=== PATIENT | female | born 1950 | race Caucasian/White ===

== ENCOUNTER 2023-04-04 09:40 | Outpatient (OUT) | payer MEDICARE, SELFPAY ==
--- NOTE | 2023-04-04 09:43 | MM_ITS ---
Patient: PAPITO HAYDEN Exam Date: 04/04/2023 : 1950 Gender:F Ordering : DR. ANAMARIA CHINCHILLA . Admission #: [id number] Family : Order #: [id number] CLICK HERE TO VIEW EXAM RADIOLOGY REPORT PROCEDURE: MM TOMOSYNTHESIS SCREENING BI COMPARISON: MG MAMM SCREEN 3D SARAHI CAD, 03/15/2022. MG MAMM SCREEN 3D SARAHI CAD, 03/13/2021. MG MAMM LT DIAG W CAD, 03/12/2020. MG MAMM SCREEN SARAHI W CAD, 09/12/2017. INDICATIONS: Screening mammogram Z12.31 Calculator Name NCI Breast Cancer Risk Assessment Tool 5 Year Breast Cancer Risk 1.40% Lifetime Breast Cancer Risk 4.10% Personal Breast Cancer No Personal Ovarian Cancer No Treatments None Family Cancers Aunt-maternal with breast cancer at age 70; Father with lung cancer at age 70. LOCATION: [facility] BREAST COMPOSITION: Heterogeneously dense,which may obscure small masses. FINDINGS: DIAGNOSTIC CATEGORY 1--NEGATIVE. RIGHT BREAST: No significant suspicious finding. No significant change has occurred. LEFT BREAST: No significant suspicious finding. No significant change has occurred. RECOMMENDATIONS: ROUTINE MAMMOGRAM AND CLINICAL EVALUATION IN 12 MONTHS. PLEASE NOTE: A NORMAL MAMMOGRAM DOES NOT EXCLUDE THE POSSIBILITY OF BREAST CANCER. A CLINICALLY SUSPICIOUS PALPABLE LUMP SHOULD BE BIOPSIED. Dictated by: Tamir Conley M.D. on 04/04/2023 at 14:45 Approved by: Tamir Conley M.D. on 04/04/2023 at 14:48
== END 2023-04-04 09:41 | disposition home or self-care (01) ==
LOC: MAMMO 09:41
PROVIDERS: PCP Family Medicine; Visit Provider Family Medicine
DX: Z12.31 Encounter for screening mammogram for malignant neoplasm of breast (principal); Z80.3 Family history of malignant neoplasm of breast; Z80.1 Family history of malignant neoplasm of trachea, bronchus and lung
CPT/HCPCS: 77063; 77067

== ENCOUNTER 2023-05-13 08:38 | Outpatient (OUT) | payer MEDICARE, SELFPAY ==
--- NOTE | 2023-05-13 08:41 | US_ITS ---
The [address] [address] Patient Name: PAPITO HAYDEN MRN: [id number] date: 1950 Sex: F Assigned Patient Location: US Current Patient Location: US Accession/Order Number: [id number] Exam Date: 05/13/2023 08:45 Report Date: 05/13/2023 09:52 At the request of: MATT RICHMOND Procedure: US pelvis w/ transvaginal EXAM: Pelvic ultrasound HISTORY: . Right Abdominal Pain R10.9, Post Menopausal Bleeding N95.0 . COMPARISON: None. TECHNIQUE: Transabdominal and transvaginal scanning was performed FINDINGS: Scanning of the pelvis demonstrates a retroverted uterus measuring 5.6 x 3.7 x 4.1 cm. Endometrial complex measures 7 mm in its maximal AP dimension. There is a oblong hypoechoic structure within the endometrial cavity with a maximal AP dimension of 3 mm. Right ovary was not identified. Left ovary measures 0.9 x 0.9 x 1.5 cm. Color-flow is noted. No masses are noted. No fluid is noted in the cul-de-sac. US/US pelvis w/ transvaginal IMPRESSION: 1. Endometrial complex is thickened for patient that is postmenopausal measuring 7 mm. There is an oblong hypoechoic area within the endometrial cavity measuring approximately 3 mm in its maximal AP dimension consistent with fluid and/or blood. Findings could be due to endometrial hyperplasia or an endometrial neoplasm. 2. Normal left ovary. 3. Right ovary was not identified. Electronically authenticated by: KVNG MEREDITH Date: 05/13/2023 09:52
--- NOTE | 2023-05-13 08:49 | US_ITS ---
The [address] [address] Patient Name: PAPITO HAYDEN MRN: [id number] date: 1950 Sex: F Assigned Patient Location: US Current Patient Location: US Accession/Order Number: [id number] Exam Date: 05/13/2023 08:50 Report Date: 05/13/2023 09:57 At the request of: MATT RICHMOND Procedure: US abdomen complete EXAM: US abdomen complete HISTORY: . Abdominal Pain . COMPARISON: None. TECHNIQUE: Grayscale and color imaging was performed FINDINGS: The pancreas appears normal. The abdominal aorta is unremarkable. The gallbladder is absent. Common bile duct measures 6 mm. The liver is normal in size. No masses are noted. Color-flow is noted in the portal and hepatic veins. Right kidney measures 8.9 x 4.8 x 3.9 cm and the left kidney 10.2 x 4.5 x 2 cm. No solid renal cortical masses or hydronephrosis is noted. Color-flow is noted. The spleen appears normal in size. No masses are noted. No fluid is noted within the abdomen. No masses are noted within the bladder. Bladder wall measured 3.5 mm. US/US abdomen complete IMPRESSION: 1. Absent gallbladder. 2. Normal ultrasound of the abdomen. 3. Please see above comments. Electronically authenticated by: KVNG MEREDITH Date: 05/13/2023 09:57
== END 2023-05-13 08:39 | disposition home or self-care (01) ==
LOC: US 08:38
PROVIDERS: PCP Family Medicine; Visit Provider Nurse Practitioner
DX: R10.9 Unspecified abdominal pain (principal); N95.0 Postmenopausal bleeding
CPT/HCPCS: 76700; 76830; 76856

== ENCOUNTER 2023-06-29 14:09 | Outpatient (OUT) | payer MEDICARE, SELFPAY ==
--- NOTE | 2023-06-29 | XR_ITS ---
The [address] [address] Patient Name: PAPITO HAYDEN MRN: [id number] date: 1950 Sex: F Assigned Patient Location: [facility] Current Patient Location: Accession/Order Number: [id number] Exam Date: 06/29/2023 14:25 Report Date: 06/30/2023 14:54 At the request of: SUNG COPELAND Procedure: XR foot LT min 3V STUDY: XR foot LT min 3V, [id number] HISTORY: LEFT FOOT PAIN COMPARISON: Left foot x-rays 08/03/2022. FINDINGS: Chronic fracture at the base of the second metatarsal with incomplete bony bridging. Minimal periosteal reaction at the base of the third metatarsal which could represent healed fracture or stress reaction. No acute fracture. No dislocation or suspicious osseous lesion. Hallux valgus with bunion deformity. Small plantar calcaneal spur and mild Achilles insertional enthesopathy. Dorsal talonavicular osteophytosis and soft tissue callus location. XR/XR foot LT min 3V IMPRESSION: 1. 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 2. Healed fracture versus stress reaction at the base of the third metatarsal. Electronically authenticated by: KLAUS MOTTA Date: 06/30/2023 14:54
--- OUTSIDE RECORDS SUMMARY | 2023-08-09 15:34 | XMS_ITS | CCD ---
Author Name Unknown Address [address] [place] [address] Organization [facility] Care Team Providers Care Resource Development Director Name Role Phone FARA RICHARDSON Unavailable Unavailable BELEN, ANJELICA Bergeron Unavailable Unavailable KARFARA TEE Unavailable Unavailable GAMBINO, ANJELICA eBrgeron Unavailable Unavailable GAMBINO, DR ANJELICA Bergeron Primary Care Unavailable GAMBINO, DR ANJELICA Bergeron Attending Unavailable GAMBINO, DR ANJELICA Bergeron Admitting Unavailable GAMBINO, DR ANJELICA Bergeron Consulting Unavailable ZIEBER, DR TAMIR Rico Consulting Unavailable GAMBINO, DR ANJELICA Bergeron Primary Care Unavailable GAMBINO, DR ANJELICA Bergeron Attending Unavailable GAMBINO, DR ANJELICA Bergeron Admitting Unavailable GAMBINO, DR ANJELICA Bergeron Consulting Unavailable GAMBINO, DR ANJELICA Bergeron Primary Care Unavailable KARASIK, DR CHAUDHARI Consulting Unavailable KARNAY, DR CHAUDHARI Attending Unavailable KARNAY, DR CHAUDHARI Admitting Unavailable ZIEFREM, DR TAMIR Rico Consulting Unavailable GAMBINO, DR ANJELICA Bergeron Primary Care Unavailable GAMBINO, DR ANJELICA Bergeron Consulting Unavailable GAMBINO, DR ANJELICA Bergeron Attending Unavailable GAMBINO, DR ANJELICA Bergeron Admitting Unavailable GAMBINO, DR ANJELICA Bergeron Primary Care Unavailable GAMBINO, DR ANJELICA Bergeron Consulting Unavailable GAMBINO, DR ANJELICA Bergeron Attending Unavailable GAMBINO, DR ANJELICA Bergeron Admitting Unavailable GAMBINO, DR ANJELICA Bergeron Primary Care Unavailable GAMBINO, DR ANJELICA Bergeron Consulting Unavailable GAMBINO, DR ANJELIAC Bergeron Attending Unavailable GAMBINO, DR ANJELICA Bergeron Admitting Unavailable GAMBINO, DR ANJELICA Bergeron Admitting Unavailable GAMBINO, DR ANJELICA Bergeron Primary Care Unavailable GAMBINO, DR ANJELICA Bergeron Consulting Unavailable BELEN, DR ANJELICA Bergeron Attending Unavailable GAMBINO, DR ANJELICA Bergeron Primary Care Unavailable KARASIK, DR CHAUDHARI Consulting Unavailable KARNAY, DR CHAUDHARI Attending Unavailable KARNAY, DR CHAUDHARI Admitting Unavailable CARLISLE, DR KVNG Mendoza Consulting Unavailable Job Alvarado. Primary Care Physician Job Alvarado. Attending Unavailable Violet Lauren Admitting Unavailable Violet Lauren Attending Unavailable Job Alvarado Attending Unavailable Job Alvarado Admitting Unavailable Job Alvarado Attending Unavailable Job Alvarado Attending Unavailable Job Alvarado Attending Unavailable Job Alvarado Attending Unavailable Violet Lauren Attending Unavailable ARIEL DAS Attending Unavailable Allergies Allergy Classification Reported Allergen(s) Allergy Type Date of Onset Reaction(s) Facility (2 sources) atorvastatin; Translations: [atorvastatin] Drug Allergy Unknown (qualifier value) [facility] (2 sources) HYDROmorphone; Translations: [hydromorphone] Drug Allergy Unknown (qualifier value) [facility] (2 sources) Pyrilamine; Translations: [pyrilamine] Drug Allergy Unknown (qualifier value) [facility] (1 source) No Known Medication Allergies; Translations: [No Known Medication Allergies] Propensity to adverse reactions (disorder) [facility] Repository Medications Current Medications Medication Drug Class(es) Dates Sig (Normalized) Sig (Original) aspirin 81 mg oral capsule (1 source) Platelet Aggregation Inhibitor, Nonsteroidal Anti-inflammatory Drug Start: 11-29-2022 take 1 capsule by mouth once daily aspirin 81 mg oral capsule 81 mg = 1 cap(s), Oral, Daily, Refills(s) 0 Start Date: 11/29/22 Status: Ordered glucosamine hydrochloride 1500 mg oral tablet (1 source) Start: 12-01-2022 glucosamine hydrochloride 1500 mg oral tablet 1,500 mg, 1 tab(s), Oral, Daily, 30 tab(s), Refill(s) 0 Start Date: 12/01/22 Status: Ordered krill oil 500 mg oral capsule (1 source) Start: 12-01-2022 take 1 capsule by mouth once daily omega-3 polyunsaturated fatty acids 500 mg oral capsule 500 mg = 1 cap(s), Oral, Daily, Refills(s) 0 Start Date: 12/01/22 Status: Ordered losartan potassium 25 mg oral tablet (2 sources) Angiotensin 2 Receptor Sylvester Start: 12-15-2022 take 1 tablet by mouth twice daily losartan 25 mg Tab 25 mg = 1 tab(s), Oral, BID, # 180 tab(s), Refills(s) 0, Pharmacy: [facility] [id number], 162, cm, 05/11/23 9:36:00 EDT, Height/Length Dosing, 74.9, kg, 05/11/23 9:36:00 EDT, Weight Dosing Start Date: 05/11/23 Status: Ordered meloxicam 15 mg oral tablet (1 source) Nonsteroidal Anti-inflammatory Drug Start: 02-27-2023 take 1 tablet by mouth once daily as needed meloxicam 15 mg Tab See Instructions, TAKE ONE TABLET BY MOUTH DAILY NEEDED, # 90 tab(s), Refills(s) 0, Pharmacy: [facility] [id number], 162.6, cm, 12/01/22 15:23:00 EDT, Height/Length Dosing, 76.5, kg, 12/01/22 15:23:00 EDT, Weight Dosing Start Date: 02/27/23 Status: Ordered rosuvastatin calcium 20 mg oral tablet (1 source) HMG-CoA Reductase Inhibitor Start: 02-27-2023 take 1 tablet by mouth once daily rosuvastatin 20 mg Tab See Instructions, TAKE ONE TABLET BY MOUTH DAILY, # 90 tab(s), Refills(s) 0, Pharmacy: [facility] [id number], 162.6, cm, 12/01/22 15:23:00 EDT, Height/Length Dosing, 76.5, kg, 12/01/22 15:23:00 EDT, Weight Dosing Start Date: 02/27/23 Status: Ordered tafluprost 0.015 mg/ml ophthalmic solution (1 source) Prostaglandin Analog Start: 05-11-2023 take 1 drop(s) into the eye(s) once daily Zioptan 0.0015% ophthalmic solution See Instructions, Refill(s) 0, 1 drop(s) Eye-Right & Left once daily Start Date: 05/11/23 Status: Ordered vitamin e 450 mg oral capsule (1 source) Start: 12-01-2022 take 1 capsule by mouth once daily vitamin E 450 mg oral capsule See Instructions, take one daily 400mg, Refills(s) 0 Start Date: 12/01/22 Status: Ordered Problems Active Problems Problem Classification Problem Date Documented Date Episodic/Chronic Abdominal pain (1 source) Right sided abdominal pain 05-11-2023 Episodic Disorders of lipid metabolism (7 sources) Pure hypercholesterolemia, unspecified; Translations: [Hypercholesterolemia ] Onset: 11-09-2021 Chronic Essential hypertension (5 sources) Essential (primary) hypertension; Translations: [Hypertensive disorder] Onset: 11-05-2021 Chronic Heart valve disorders (1 source) Rheumatic disorders of both mitral and tricuspid valves; Translations: [RHEUMATIC D/O MITRAL TRICUSPID VALV] Onset: 10-08-2021 Chronic Menopausal disorders (1 source) Postmenopausal bleeding 05-11-2023 Chronic Osteoporosis (1 source) Senile osteoporosis; Translations: [Age-related osteoporosis without current pathological fracture] 12-01-2022 Chronic Other connective tissue disease (4 sources) Pain in left foot; Translations: [PAIN IN LEFT FOOT] Onset: 08-03-2022 Episodic Transient cerebral ischemia (6 sources) Transient cerebral ischemic attack, unspecified; Translations: [Transient cerebral ischemia] Onset: 09-11-2021 Chronic Urinary tract infections (4 sources) Urinary tract infection, site not specified; Translations: [UTI SITE NOT SPECIFIED] Onset: 07-06-2022 Episodic Past or Other Problems Problem Classification Problem Date Documented Da te Episodic/Chronic Cardiac dysrhythmias (4 sources) Palpitations; Translations: [PALPITATIONS] Onset: 09-08-2021 Episodic Diabetes mellitus without complication (1 source) Hyperglycemia, unspecified; Translations: [HYPERGLYCEMIA UNSPECIFIED] Onset: 02-11-2022 Episodic Other bone disease and musculoskeletal deformities (1 source) Other specified disorders of bone density and structure, unspecified site; Translations: [OTH D/O BONE DEN STRUCT UNS SITE] Onset: 09-22-2021 Episodic Residual codes; unclassified (1 source) Family history of malignant neoplasm of breast; Translations: [FAMILY HX MALIG NEOPLASM OF BREAST] Onset: 03-16-2022 Episodic Residual codes; unclassified (1 source) Family history of malignant neoplasm of trachea, bronchus and lung; Translations: [FAM HX MALIG NEOPLSM TRACH BRON LNG] Onset: 03-16-2022 Episodic Unclassified (5 sources) Encounter for screening mammogram for malignant neoplasm of breast; Translations: [Encounter for screening mammogram for malignant neoplasm of breast] Onset: 09-12-2017 Episodic Unclassified (5 sources) Asymptomatic menopausal state; Translations: [Asymptomatic menopausal state] Onset: 09-12-2017 Episodic Results Test Name Value Interpretation Reference Range Facil ity Consultation Noteon 07-07-20 Consultation Note [id number]#1.00TIFF [facility] RAD - MISCon 07-07-2023 RAD - MISC [id number]#1.00TI FF [facility] Patient [place]son 06-14-2023 Patient Logs [id number] TIFF [facility] Physician Referralon 023 Physician Referral [id number]#1.00TIFF [facility] Nurse Consultation Noteon Nurse Consultation Note Reason for Visit Here for BP check results 156/84 patient brought a BP log with her and that was scanned in Medications aspirin 81 mg oral capsule, 81 mg= 1 cap(s), Oral, Daily calcium-vitamin D, Daily glucosamine hydrochloride 1500 mg oral tablet, 1500 mg= 1 tab(s), Oral, Daily losartan 100 mg Tab, 100 mg= 1 tab(s), Oral, Daily meloxicam 15 mg Tab, See Instructions Norvasc 5 mg Tab, 5 mg= 1 tab(s), Oral, Daily omega-3 polyunsaturated fatty acids 500 mg oral capsule, 500 mg= 1 cap(s), Oral, Daily rosuvastatin 20 mg Tab, See Instructions vitamin E 450 mg oral capsule, See Instructions Zioptan 0.0015% ophthalmic solution, See Instructions Allergies Dilaudid (Unknown) atorvastatin (Unknown) pyrilamine (Unknown) Immunizations Vaccine Date Status Comments influenza virus vaccine, inactivated - Not Given Postpone due to refusal SARS-CoV-2 mRNA (tozinameran 5y-11y) vac - Not Given Postpone due to refusal pneumococcal 23-valent vaccine 07/24/2019 Recorded pneumococcal 13-valent vaccine 07/21/2018 Recorded hepatitis A adult vaccine 11/08/2016 Recorded hepatitis A adult vaccine 05/05/2016 Recorded influenza virus vaccine, inactivated 07/12/2014 Recorded influenza virus vaccine, inactivated 06/05/2013 Recorded influenza virus vaccine, inactivated 05/18/2012 Recorded influenza virus vaccine, inactivated 05/17/2011 Recorded pneumococcal 23-valent vaccine 06/25/2008 Recorded [facility] Outside Colonoscopyon 2022 Outside Colonoscopy [id number]#1.00TIFF [facility] Patient [place] 06-07-2023 Patient Logs [id number] TIFF [facility] Auth for Release of Medical Recordson 06-01-2023 Auth for Release of Medical Records [id number] [facility] Family Medicine Office/Clini c Noteon 06-01-2023 Family Medicine Office/Clinic Note Chief Complaint Subsequent Medicare Wellness History of Present Illness I was in the office and available for consultation and to provide direct supervision at the time of this visit. I have provided supervision of the care team and have reviewed this chart and office note and agree with the plan of care. Covid-19, MERS, Ebola Screen *Contact With Person With Highly Contagious Disease Like Ebola/MERS/COVID-19 AND Have One or More of the Symptoms Below : No *Travel to a Country With Wide-Spread Ebola/MERS/COVID-19 in the Past 21 Days AND Have One or More of the Symptoms Below : No Leidy Aguilar Marlene - 05/30/2023 14:34 EDT COVID-19 Vaccine : No Lauren Leidy Marlene - 05/30/2023 14:36 EDT Covid-19 External Testing : No *Verify Airborne, Droplet Precautions for MERS/COVID-19 : N/A *Verify Droplet, Contact Precautions for Ebola (Reference for CDC) : N/A Leidy Aguilar Marlene - 05/30/2023 14:34 EDT Summary [facility] : [facility] Preferred Rad : [facility] Patient Counseled : Nutrition, Physical activity Height in Inches : 64 in Height/Length Measured : 162 cm(Converted to: 5 ft 4 in, 63.78 in) Weight Measured : 75.9 kg(Converted to: 167 lb 5 Ounces, 167.331 lb) Body Mass Index Measured : 28.92 kg/m2 Leidy Aguilar 05/30/2023 14:34 EDT Leidy Aguilar 05/30/2023 14:36 EDT Weight in Pounds : 166.98 lb Leidy Aguilar 05/30/2023 14:34 EDT Leidy Aguilar 05/30/2023 14:36 EDT Systolic Blood Pressure : 150 mmHg (HI) Diastolic Blood Pressure : 92 mmHg (HI) Blood Pressure Location : Left arm Blood Pressure Position : Sitting O2 Sat Resting/Exertion Alpha : Resting Peripheral Pulse Rate : 59 bpm (LOW) Respiratory Rate : 18 br/min SpO2 : 95 % Pain Present : No actual or suspected pain Leidy Aguilar 05/30/2023 14:34 EDT Depression Screening Little Interest, Pleasure in Activities (ref) : Not at all Feeling Down, Depressed, Hopeless : Not at all Initial Depression Screening Score : 0 Depression Screening Result : Negative Leidy Aguilar 05/30/2023 14:34 EDT Procedures / Surgeries - Procedure History (As Of: 05/30/2023 14:36:28 EDT) Anesthesia Minutes: 0 ; Procedure Name: Colonoscopy ; Procedure Minutes: 0 ; Comments: 11/29/2022 12:57 EDT - Britany Daniel LPN 2012 normal ; Last Reviewed Dt/Tm: 05/30/2023 14:35:01 EDT Anesthesia Minutes: 0 ; Procedure Name: Cholecystectomy ; Procedure Minutes: 0 ; Comments: 11/29/2022 12:57 EDT - Britany Daniel LPN bile duct surgery ; Last Reviewed Dt/Tm: 05/30/2023 14:35:01 EDT Anesthesia Minutes: 0 ; Procedure Name: Laser ; Procedure Minutes: 0 ; Comments: 12/01/2022 15:22 EDT - Britany Daniel LPN eye ; Last Reviewed Dt/Tm: 05/30/2023 14:35:01 EDT Social History FT Social History (As Of: 05/30/2023 14:35:59 EDT) Alcohol: Wine, 3-5 times per week, Household alcohol concerns: No. (Last Updated: 05/30/2023 14:06:50 EDT by Neftaly Wolfe) Tobacco: Never (less than 100 in lifetime) Tobacco Use:. Never Smokeless Tobacco Use:. Household tobacco concerns: No. Comments: 05/30/2023 14:07 - Neftaly Wolfe R: rachana (Last Updated: 05/30/2023 14:35:10 EDT by Leidy Aguilar) Family History Family History (As Of: 05/30/2023 14:35:59 EDT) Negative History Paiz Fall Risk History of Fall in Last 3 Months Paiz : No Presence of Secondary Diagnosis Paiz : No Use of Ambulatory Aid Paiz : None, bedrest, wheelchair, nurse IV/Heparin Lock Fall Risk Paiz : No Gait Weak or Impaired Fall Risk Paiz : Normal, bedrest, immobile Mental Status Fall Risk Paiz : Oriented to own ability Paiz Fall Risk Score : 0 Leidy Aguilar - 05/30/2023 14:34 EDT Social Determinants (PRAPARE) What is your housing situation today? : I have housing You or Family Gone Without Household Needs Past Year : No No Transport to Med Appts/Meetings/Work/Meds/Necessities : No Afraid of Partner or Ex-partner in the Past Year : No Leidy Aguilar - 05/30/2023 14:34 EDT Review of Systems PHQ Score Initial Depression Screen Score: 0 Physical Exam Vitals & Measurements HR: 59(Peripheral) BP: 158/80 SpO2: 95% HT: 162 cm HT: 64 in WT: 75.9 kg WT: 166.98 lb BMI: 28.92 Assessment/Plan 1. Annual visit for general adult medical examination without abnormal findings (Z00.00: Encounter for general adult medical examination without abnormal findings) The patient was given a customized and personalized print out of all the current AHRQ USPSTF?s recommendations for preventative services and all current CDC recommended immunizations, relevant risk recommendations and the following patient brochures were given. Reviewed Medicare preventative services checklist. CDC-Falls Prevention and home safety screening reviewed. Patient denies any falls in last 12 months, voices no worry about falling, exhibits no problems with sitting, standing, or ambulation. Pt voices understanding with keeping walk way area free o (more content not included)... [facility] Comment on above: Result Comment: Elec tronically Signed By: Job Alvarado MD\.br\Date and Time Signed: 06/01/23 10:38 EDT\.br\Electronically Co-Signed By: Neftaly Wolfe\.br\Date and Time Co-Signed: 05/30/23 15:29 EDT Auth for Release of Medical Recordson 05-31-2023 Auth for Release of Medical Records [id number] [facility] Physician Referralon 023 Physician Referral [id number]#1.00TIFF [facility] Screenson 05-31-2023 Screens [id number] IFF [facility] Ambulatory Visit Summaryon 1 Ambulatory Visit Summary ISAURA RIVERA :1950 Visit Date:05/30/2023 Ambulatory Visit Instructions Your Diagnosis Hypertension Hypertensive kidney disease with stage 3a chronic kidney disease Chronic kidney disease, stage 3a Hypercholesterolemia Postmenopause bleeding Foot pain, right BMI 28.0-28.9,adult Non-smoker Your Care Team Attending Physician - Job Alvarado MD Primary Care Physician - Job Alvarado MD This Is Your Medications List losartan (losartan 100 mg Tab) rosuvastatin (rosuvastatin 20 mg Tab) Contact prescribing physician if questions or concerns aspirin (aspirin 81 mg oral capsule) calcium-vitamin D glucosamine (glucosamine hydrochloride 1500 mg oral tablet) meloxicam (meloxicam 15 mg Tab) omega-3 polyunsaturated fatty acids (omega-3 polyunsaturated fatty acids 500 mg oral capsule) tafluprost ophthalmic (Zioptan 0.0015% ophthalmic solution) vitamin E (vitamin E 450 mg oral capsule) Procedures Performed Cholecystectomy, Colonoscopy, Laser. Discharge Vitals Heart Rate (Peripheral) 59 Respiratory Rate 18 Blood Pressure 150/92 Height 162 cm Height 64 in Weight 75.9 kg Weight 166.98 lb BMI 28.92 What to do next Scheduled Follow-Up Appointments Tuesday 9:00 AM EDT Where: [facility] Invalid Interpretation Code [address] [place] [address]- \.br\ Someone Will Contact You Regarding These Appointments\.br\ [facility] EDT, [facility] Ambulatory Visit Summary ISAURA RIVERA :1950 Visit Date:05/30/2023 Ambulatory Visit Instructions Your Diagnosis Annual visit for general adult medical examination without abnormal findings Hyperlipidemia Hypertension BMI 28.0-28.9,adult Age-related osteoporosis without current pathological fracture Your Care Team Attending Physician - Job Alvarado MD Primary Care Physician - Job Alvarado MD This Is Your Medications List aspirin (aspirin 81 mg oral capsule) calcium-vitamin D glucosamine (glucosamine hydrochloride 1500 mg oral tablet) losartan (losartan 100 mg Tab) meloxicam (meloxicam 15 mg Tab) omega-3 polyunsaturated fatty acids (omega-3 polyunsaturated fatty acids 500 mg oral capsule) rosuvastatin (rosuvastatin 20 mg Tab) tafluprost ophthalmic (Zioptan 0.0015% ophthalmic solution) vitamin E (vitamin E 450 mg oral capsule) Procedures Performed Cholecystectomy, Colonoscopy, Laser. Discharge Vitals Heart Rate (Peripheral) 59 Blood Pressure 158/80 Height 64 in Height 162 cm Weight 166.98 lb Weight 75.9 kg BMI 28.92 What to do next Scheduled Follow-Up Appointments Tuesday 9:00 AM EDT Where: [facility] Invalid Interpretation Code [address] [place] [address]- \.br\ Someone Will Contact You Regarding These Appointments\.br\ [facility] 15:02:00 EDT, [facility] Ambulatory Visit Summary ISAURA RIVERA :1950 Visit Date:05/30/2023 Ambulatory Visit Instructions Your Diagnosis Hypertension Hypertensive kidney disease with stage 3a chronic kidney disease Chronic kidney disease, stage 3a Hypercholesterolemia Postmenopause bleeding BMI 28.0-28.9,adult Non-smoker Your Care Team Attending Physician - Job Alvarado MD Primary Care Physician - Job Alvarado MD. This Is Your Medications List aspirin (aspirin 81 mg oral capsule) calcium-vitamin D glucosamine (glucosamine hydrochloride 1500 mg oral tablet) losartan (losartan 25 mg Tab) meloxicam (meloxicam 15 mg Tab) omega-3 polyunsaturated fatty acids (omega-3 polyunsaturated fatty acids 500 mg oral capsule) rosuvastatin (rosuvastatin 20 mg Tab) tafluprost ophthalmic (Zioptan 0.0015% ophthalmic solution) vitamin E (vitamin E 450 mg oral capsule) Procedures Performed Cholecystectomy, Colonoscopy, Laser. Discharge Vitals Heart Rate (Peripheral) 59 Respiratory Rate 18 Blood Pressure 150/92 Height 162 cm Height 64 in Weight 75.9 kg Weight 166.98 lb BMI 28.92 What to do next Scheduled Follow-Up Appointments Tuesday 9:00 AM EDT Where: [address] \.br\ Medications\.br\ What How Much When Why Instructions\.br\ Unchanged aspirin (aspirin 81 mg oral capsule) 1 Capsules By Mouth Every day\.br\ Unchanged calcium-vitamin D Every day\.br\ Unchanged glucosamine (glucosamine hydrochloride 1500 mg oral tablet) 1 Tablets By Mouth Every day\.br\ Unchanged losartan (losartan 25 mg Tab) 1 Tablets By Mouth 2 times a day Right sided abdominal pain Postmenopause bleeding BMI 28.0-28.9,adult Non-smoker\.br\ Unchanged meloxicam (meloxicam 15 mg Tab) See instructions TAKE ONE TABLET BY MOUTH DAILY NEEDED \.br\ Unchanged omega-3 polyunsaturated fatty acids (omega-3 polyunsaturated fatty acids 500 mg oral capsule) 1 Capsules By Mouth Every day\.br\ Unchanged rosuvastatin (rosuvastatin 20 mg Tab) See instructions TAKE ONE TABLET BY MOUTH DAILY \.br\ Unchanged tafluprost ophthalmic (Zioptan 0.0015% ophthalmic solution) See instructions 1 drop(s) Eye-Right & Left once daily \.br\ Unchanged vitamin E (vitamin E 450 mg oral capsule) See instructions take one daily 400mg \.br\ Medications and Immunizations Administered\.br\ Not Given\.br\ influenza virus vaccine, inactivated, Postpone due to refusal\.br\ Allergies\.br\ Dilaudid (Unknown)\.br\ atorvastatin (Unknown)\.br\ pyrilamine (Unknown)\.br\ Problems\.br\ Ongoing - Any problem that you are currently receiving treatment for.\.br\ Age-related osteoporosis without current pathological fracture\.br\ Chronic kidney disease, stage 3a\.br\ Hypercholesterolemia \.br\ Hyperlipidemia\.br\ Hypertension\.br\ Hypertensive kidney disease with stage 3a chronic kidney disease\.br\ Postmenopause bleeding\.br\ Right sided abdominal pain\.br\ TIA (transient ischemic attack)\.br\ \.br\ [facility] Ambulatory Visit Summary ISAURA RIVERA :1950 Visit Date:05/30/2023 Ambulatory Visit Instructions Your Diagnosis Annual visit for general adult medical examination without abnormal findings Hyperlipidemia Your Care Team Attending Physician - Job Alvarado MD Primary Care Physician - Job Alvarado MD This Is Your Medications List aspirin (aspirin 81 mg oral capsule) calcium-vitamin D glucosamine (glucosamine hydrochloride 1500 mg oral tablet) losartan (losartan 25 mg Tab) meloxicam (meloxicam 15 mg Tab) omega-3 polyunsaturated fatty acids (omega-3 polyunsaturated fatty acids 500 mg oral capsule) rosuvastatin (rosuvastatin 20 mg Tab) tafluprost ophthalmic (Zioptan 0.0015% ophthalmic solution) vitamin E (vitamin E 450 mg oral capsule) Procedures Performed Cholecystectomy, Colonoscopy, Laser. Discharge Vitals Heart Rate (Peripheral) 59 Blood Pressure 158/80 Height 64 in Height 162 cm Weight 166.98 lb Weight 75.9 kg BMI 28.92 What to do next Scheduled Follow-Up Appointments Tuesday 11:00 AM EST Where: [facility] [place] [facility] Family Medicine Office/Clini c [place] 05-30-2023 Family Medicine Office/Clinic Note HPI Staff Isaura is a 72 year old female presenting for 6 month follow up htn, hypercholesterolemia Patient is here for follow up on hypertension. How often are you checking your blood pressure? daily What are your average readings? 130's-160's over 70's-90's Yearly BMP: 05/11/23 flu: refused pt needs refills on Rosuvastatin 20mg MEERA 05/20/23 Losartan was increased to 50mg BID, pt brought blood pressure log with her. Pt does have appointment set up for July [address] Das for D&C History of Present Illness Here for follow up - Bps are elevated despite being on meds. Reviewed log and even after increasing Bps are elevated. - Pt is taking NSAIDs 2/2 R foot pain. Has seen Podiatry in the past. Review of Systems PHQ Score Initial Depression Screen Score: 0 Physical Exam Vitals & Measurements HR: 59(Peripheral) RR: 18 BP: 150/92 SpO2: 95% HT: 64 in HT: 162 cm WT: 75.9 kg WT: 166.98 lb BMI: 28.92 General: alert, no acute distress ENMT: oral mucosa moist, Cardiovascular: regular rate and rhythm, normal peripheral perfusion Respiratory: Lungs CTA, respirations non labored Extremities: no deformity, no trauma Neurological: oriented x 4, LOC appropriate for age, CN II-XII intact, motor strength equal & normal bilaterally, speech normal Abdomen: Soft, Nontender, Non-distended, + BS Assessment/Plan 1. Hypertension (I10: Essential (primary) hypertension) Not at goal. Will increase meds and do a nurse visit in 2 weeks. Ordered: [facility] External Ambulatory Referral Medicare Subsequent Visit G0439 2. Hypertensive kidney disease with stage 3a chronic kidney disease (I12.9: Hypertensive chronic kidney disease with stage 1 through stage 4 chronic kidney disease, or unspecified chronic kidney disease) - Working to control Bps to protect the kidneys Ordered: [facility] External Ambulatory Referral 3. Chronic kidney disease, stage 3a (N18.31: Chronic kidney disease, stage 3a) - Will have the patient cut down on the NSAIDs to protect the kidneys Ordered: [facility] External Ambulatory Referral 4. Hypercholesterolemia (E78.00: Pure hypercholesterolemia, unspecified) - Continue on the statin Ordered: [facility] External Ambulatory Referral 5. Postmenopause bleeding (N95.0: Postmenopausal bleeding) - Follow up with Dr. Das Ordered: [facility] External Ambulatory Referral 6. Foot pain, right (M79.671: Pain in right foot) - Will send to Dr. Schmitz because the conservative management has not worked 7. BMI 28.0-28.9,adult (Z68.28: Body mass index [BMI] 28.0-28.9, adult) - BMI education given Ordered: Medicare Subsequent Visit G0439 8. Non-smoker (Z78.9: Other specified health status) - Please do not smoke. Orders: losartan, 100 mg = 1 tab(s), Oral, Daily, # 90 tab(s), Refills(s) 0, Pharmacy: [facility] [id number], 162, cm, 05/30/23 14:36:00 EDT, Height/Length Dosing, 75.9, kg, 05/30/23 14:35:00 EDT, Weight Dosing losartan, See Instructions, Take 1 tab in am and 2 in pm, # 270 tab(s), Refills(s) 3, Pharmacy: [facility] [id number], 162.6, cm, 12/01/22 15:23:00 EDT, Height/Length Dosing, 76.5, kg, 12/01/22 15:23:00 EDT, Weight Dosing rosuvastatin, See Instructions, TAKE ONE TABLET BY MOUTH DAILY, # 90 tab(s), Refills(s) 0, Pharmacy: [facility] [id number], 162, cm, 05/30/23 14:36:00 EDT, Height/Length Dosing, 75.9, kg, 05/30/23 14:35:00 EDT, Weight Dosing 1125F Pain severity quantified; pain present Advance Care Planning discussed and documented 1123F Annual alcohol misuse screening, 15 min G0442 Annual Depression Screening 15 min G0444 Body Mass Index (BMI) documented 3008F Central Dual-energy X-Ray Absorptiometry (DXA) results documented 3095F Colorectal CA screening results documented and reviewed 3017F Current tobacco non-user 1036F Depression Screening Negative 3352F Functional status assessed 1170F Influenza immunization status assessed 1030F Lab Specimen Collect 84929 Lipid Panel Medication list documented in medical record 1159F Most recent diastolic blood pressure 80-89 mm Hg 3079F Most recent systolic blood pressure >= 140 mm Hg 3077F Patient screen for fall risk: no falls in last year or 1 fall with no injury in last year 1101F Pneumonia Vax administered or previously received 4040F Review of all meds by a prescribing practitioner or clinical pharmacist documented in EHR 1160F Screening mammography documented and reviewed 3014F Follow-up No qualifying data available Problem List/Past Medical History Ongoing Age-related osteoporosis without current pathological fracture Chronic kidney disease, stage 3a Foot pain, right Hypercholesterolemia Hyperlipidemia Hypertension Hypertensive kidney disease with stage 3a chronic kidney disease Postmenopause bleeding Right sided abdominal pain TIA (transient ischemic attack) Historical No qualifying data Procedure/Surgical History Cholecystectomy, Colonoscopy, Laser. Medications aspir (more content not included)... [facility] Comment on above: Result Comment: Elec tronically Signed By: Christiano SHORT, Job Jacobsonbr\Date and Time Signed: 05/30/23 15:10 EDT Lipid Panelon 05-30-2023 Cholesterol [Mass/Vol] 206 mg/dL High 120-200 Fi [facility] Comment on above: Performed By: #### 2 [id number] ####[facility] [address] [place] [address] Cholesterol in HDL [Mass/Vol] 61 mg/dL Invalid Interpretation Code [facility] Comment on above: Result Comment: HDL > or equal to 60 mg/dL: Low cardiovascular risk HDL < 40 mg/dL : High cardiovascular risk Performed By: #### 2 059323 ####[facility] [address] [place] [address] Cholesterol in LDL [Mass/Vol] 111 mg/dL Normal <=129 [facility] Comment on above: Performed By: #### 2 680074 ####[facility] [address] [place] [address] Cholesterol in VLDL [Mass/Vol] 35 mg/dL Normal 7-40 [facility] Comment on above: Performed By: #### 2 727770 ####[facility] [address] [place] [address] Triglyceride [Mass/Vol] 177 mg/dL High <=[address] [facility] Comment on above: Performed By: #### 2 [id number] ####[facility] [address] [place] [address] Patient Educationon 05-30-20 Patient Education Caregiving Fall Prevention in the Home, Adult Falls can cause injuries and affect people of all ages. There are many simple things that you can do to make your home safe and to help prevent falls. Ask for help when making these changes, if needed. What actions can I take to prevent falls? General instructions ? Use good lighting in all rooms. Replace any light bulbs that burn out, turn on lights if it is dark, and use night-lights. ? Place frequently used items in hxoz-pz-kiqei places. Lower the shelves around your home if necessary. ? Set up furniture so that there are clear paths around it. Avoid moving your furniture around. ? Remove throw rugs and other tripping hazards from the floor. ? Avoid walking on wet floors. ? Fix any uneven floor surfaces. ? Add color or contrast paint or tape to grab bars and handrails in your home. Place contrasting color strips on the first and last steps of staircases. ? When you use a stepladder, make sure that it is completely opened and that the sides and supports are firmly locked. Have someone hold the ladder while you are using it. Do not climb a closed stepladder. ? Know where your pets are when moving through your home. What can I do in the bathroom? ? Keep the floor dry. Immediately clean up any water that is on the floor. ? Remove soap buildup in the tub or shower regularly. ? Use nonskid mats or decals on the floor of the tub or shower. ? Attach bath mats securely with double-sided, nonslip rug tape. ? If you need to sit down while you are in the shower, use a plastic, nonslip stool. ? Install grab bars by the toilet and in the tub and shower. Do not use towel bars as grab bars. What can I do in the bedroom? ? Make sure that a bedside light is easy to reach. ? Do not use oversized bedding that reaches the floor. ? Have a firm chair that has side arms to use for getting dressed. What can I do in the kitchen? ? Clean up any spills right away. ? If you need to reach for something above you, use a sturdy step stool that has a grab bar. ? Keep electrical cables out of the way. ? Do not use floor japanese or wax that makes floors slippery. If you must use wax, make sure that it is non-skid floor wax. What can I do with my stairs? ? Do not leave any items on the stairs. ? Make sure that you have a light switch at the top and the bottom of the stairs. Have them installed if you do not have them. ? Make sure that there are handrails on both sides of the stairs. Fix handrails that are broken or loose. Make sure that handrails are as long as the staircases. ? Install non-slip stair treads on all stairs in your home. ? Avoid having throw rugs at the top or bottom of stairs, or secure the rugs with carpet tape to prevent them from moving. ? Choose a carpet design that does not hide the edge of steps on the stairs. ? Check any carpeting to make sure that it is firmly attached to the stairs. Fix any carpet that is loose or worn. What can I do on the outside of my home? ? Use bright outdoor lighting. ? Regularly repair the edges of walkways and driveways and fix any cracks. ? Remove high doorway thresholds. ? Trim any shrubbery on the main path into your home. ? Regularly check that handrails are securely fastened and in good repair. Both sides of all steps should have handrails. ? Install guardrails along the edges of any raised decks or porches. ? Clear walkways of debris and clutter, including tools and rocks. ? Have leaves, snow, and ice cleared regularly. ? Use sand or salt on walkways during winter months. ? In the garage, clean up any spills right away, including grease or oil spills. What other actions can I take? ? Wear closed-toe shoes that fit well and support your feet. Wear shoes that have rubber soles or low heels. ? Use mobility aids as needed, such as canes, walkers, scooters, and crutches. ? Review your medicines with your health care provider. Some medicines can cause dizziness or changes in blood pressure, which increase your risk of falling. Talk with your health care provider about other ways that you can decrease your risk of falls. This may include working with a physical therapist or health and safety trainer to improve your strength, balance, and endurance. Where to find more information ? Centers for Disease Control and Prevention, [place]: www.cdc.gov ? National [place] on Aging: www.brandy.nih.gov Contact a health care provider if: ? You are afraid of falling at home. ? You feel weak, drowsy, or dizzy at home. ? You fall at home. Summary ? There are many simple things that you can do to make your home safe and to help prevent falls. ? Ways to make your home safe include removing tripping hazards and installing grab bars in the bathroom. ? Ask for help when making these changes in your home. This information is not intended to replace advice given to you by your health ca (more content not included)... [facility] Pre-Visit Planningon 023 Pre-Visit Planning From: Benita MENJIVAR, Daly To: Job Alvarado MD; Sent: 05/27/2023 13:37:55 EDT Subject: Pre-Visit Planning Due Date/Time: 05/27/2023 13:37:00 EDT Caller Name: ISAURA RIVERA; Caller Number: Adrian , M In Dr. Alvarado, *Based on your response below, can you please update the chronic problem list and address during this visit if appropriate?* During a pre-visit planning chart review, I noted the following documentation in the medical record: Labs:05/11/2023 eGFR 44, 11/05/2021 eGFR 52 Based on your medical judgment, if you agree with chronic kidney disease, can you please further clarify the stage of kidney disease? Chronic Kidney Disease Stage 3 (GFR 30-59) Chronic Kidney Disease Stage 3a (GFR 45-59) Other (Please Specify): I can update the problem list with your specified response if you would like. In responding to this request, please exercise your independent professional judgement. The fact that a question is asked does not imply that any particular answer is desired or expected. If you have any questions, please feel free to contact me at extension [phone]. Thank you! Daly Joy, ARLENE, RN, CCM, CCDS, CCDS-O From: Yunior Alvarado MDuel E. To: Benita MENJIVAR, Daly; Sent: 05/30/2023 13:07:52 EDT Subject: RE: Pre-Visit Planning Caller Name: ISAURA RIVERA; Caller Number: Adrian , Mitesh Please add 3A Normal [address] [place] [address] C Urineon 05-13-2023 Bacteria identified Cx Nom (U) Microbiology PROCEDURE: Urine Culture [R1] SOURCE: U CleanCatch BODY SITE: COLLECTED DATE/TIME: 05/11/2023 12:05 EDT RECEIVED DATE/TIME: 05/11/2023 18:38 EDT START DATE/TIME: 05/11/2023 19:05 EDT FREE TEXT SOURCE: Violet Allen Jodi L FINAL REPORTS Final Report [] Verified Date/Time: 05/13/2023 10:07 EDT <10,000 cfu/ml Mixed skin contaminants Performing Locations R1: This test was performed at: [facility], [address] [place] [address], [facility]- , , [facility] Comment on above: Performed By: #### 2 [id number], [id number] ####[facility] [address] [place] [address] RAD - Ultrasound Reporton RAD - Ultrasound Report [id number]:127 [facility] RAD - Ultrasound Report [id number]:127 [facility] Ambulatory Visit Summaryon 0 05-11-2023 Ambulatory Visit Summary ISAURA RIVERA :1950 Visit Date:05/11/2023 Ambulatory Visit Instructions Your Diagnosis BMI 28.0-28.9,adult Non-smoker Right sided abdominal pain Postmenopause bleeding Your Care Team Attending Physician - Violet Allen Primary Care Physician - Christiano SHORT, Job Harvey This Is Your Medications List aspirin (aspirin 81 mg oral capsule) glucosamine (glucosamine hydrochloride 1500 mg oral tablet) losartan (losartan 25 mg Tab) meloxicam (meloxicam 15 mg Tab) omega-3 polyunsaturated fatty acids (omega-3 polyunsaturated fatty acids 500 mg oral capsule) rosuvastatin (rosuvastatin 20 mg Tab) tafluprost ophthalmic (Zioptan 0.0015% ophthalmic solution) vitamin E (vitamin E 450 mg oral capsule) Procedures Performed Cholecystectomy, Colonoscopy, Laser. Discharge Vitals Heart Rate (Peripheral) 62 Respiratory Rate 18 Blood Pressure 130/80 Height 162 cm Height 64 in Weight 74.9 kg Weight 164.78 lb BMI 28.54 What to do next Scheduled Follow-Up Appointments Tuesday 2:00 PM EDT With: Where: [place] [id number] \.br\ Medications\.br\ What How Much When Instructions\.br\ Unchanged aspirin (aspirin 81 mg oral capsule) 1 Capsules By Mouth Every day\.br\ Unchanged glucosamine (glucosamine hydrochloride 1500 mg oral tablet) 1 Tablets By Mouth Every day\.br\ Unchanged losartan (losartan 25 mg Tab) See instructions Take 1 tab in am and 2 in pm \.br\ Unchanged meloxicam (meloxicam 15 mg Tab) See instructions TAKE ONE TABLET BY MOUTH DAILY NEEDED \.br\ Unchanged omega-3 polyunsaturated fatty acids (omega-3 polyunsaturated fatty acids 500 mg oral capsule) 1 Capsules By Mouth Every day\.br\ Unchanged rosuvastatin (rosuvastatin 20 mg Tab) See instructions TAKE ONE TABLET BY MOUTH DAILY \.br\ Unchanged tafluprost ophthalmic (Zioptan 0.0015% ophthalmic solution) See instructions 1 drop(s) Eye-Right & Left once daily \.br\ Unchanged vitamin E (vitamin E 450 mg oral capsule) See instructions take one daily 400mg \.br\ Allergies\.br\ Dilaudid (Unknown)\.br\ atorvastatin (Unknown)\.br\ pyrilamine (Unknown)\.br\ Problems\.br\ Ongoing - Any problem that you are currently receiving treatment for.\.br\ Age-related osteoporosis without current pathological fracture\.br\ Hypercholesterolemia\.br\ Hyperlipidemia\.br\ Hypertension\.br\ Postmenopause bleeding\.br\ Right sided abdominal pain\.br\ TIA (transient ischemic attack)\.br\ \.br\ [facility] Amylaseon 05-11-2023 Amylase [Catalytic activity/Vol] 74 U/L Normal 25- 157 [facility] Comment on above: Performed By: #### 2 539322, 4532279, 7378318, 7648312, 2998590, 59792018 ####[facility] [address] [place] [address] Auto Diffon 05-11-2023 Basophils/100 WBC (Bld) 0.8 % Normal 0.0-2.[address] [facility] Comment on above: Order Comment: Order Added by Discern Expert. Performed By: #### 2 946064, 8767021, 5104805, 7895565, 0634828, 98080689 ####[place] [address] [place] [address] Basophils/Leukocytes Auto (B ld) [Pure # fraction] 0.0 E9/L Normal 0.0-0.2 [facility] Comment on above: Order Comment: Order Added by Discern Expert. Performed By: #### 2 066984, 2693711, 4032938, 1129668, 2848544, 67819265 ####[place] [address] [place] [address] Eosinophils/100 WBC (Bld) 5.2 % Normal 0.0-8.0 [facility] Comment on above: Order Comment: Order Added by Discern Expert. Performed By: #### 2 416477, 2066993, 5631628, 9668627, 4072274, 63759383 ####[place] [address] [place] [address] Eosinophils/Leukocytes Auto (Bld) [Pure # fraction] 0.3 E9/L Normal 0.0-0.5 [facility] Comment on above: Order Comment: Order Added by Discern Expert. Performed By: #### 2 535408, 5627380, 1569057, 5281961, 8112131, 88380369 ####[facility] [address] [place] [address] Lymphocytes/100 WBC (Bld) 31.3 % Normal 14.0-50.0 [facility] Comment on above: Order Comment: Order Added by Discern Expert. Performed By: #### 2 885427, 1624636, 0535801, 6062528, 2553853, 57383841 ####[place] [address] [place] [address] Lymphocytes/Leukocytes Auto (Bld) [Pure # fraction] 1.8 E9/L Normal 1.0-4.0 [facility] Comment on above: Order Comment: Order Added by Discern Expert. Performed By: #### 2 604123, 7494070, 5101504, 0153608, 1191238, 04591938 ####[address] [address] Monocytes/100 WBC (Bld) 7.8 % Normal 4.0-14.0 [facility] Comment on above: Order Comment: Order Added by Discern Expert. Performed By: #### 2 872952, 2714225, 2150414, 6516660, 7727918, 59803408 ####[address] [address] Monocytes/Leukocytes Auto (B ld) [Pure # fraction] 0.4 E9/L Normal 0.2-1.0 [facility] Comment on above: Order Comment: Order Added by Discern Expert. Performed By: #### 2 638126, 1903489, 9684931, 5513899, 4614452, 09443525 ####[place] [address] [place] [address] Neutrophils/100 WBC (Bld) 54.9 % Normal 36.0-75.0 [facility] Comment on above: Order Comment: Order Added by Discern Expert. Performed By: #### 2 723360, 9432830, 3832367, 9716160, 0809784, 92250786 ####[facility] [address] [place] [address] Neutrophils/Leukocytes Auto (Bld) [Pure # fraction] 3.1 E9/L Normal 2.0-7.5 [facility] Comment on above: Order Comment: Order Added by Discern Expert. Performed By: #### 2 505215, 2198594, 0959833, 0453213, 6811854, 28131110 ####[address] [address] CBC w/ Auto Diffon 3 Erythrocyte distribution wid th (RBC) [Ratio] 12.9 % Normal 10.9-14.2 [facility] Comment on above: Performed By: #### 2 496302, 7306051, 9265789, 0176887, 3071946, 07080319 ####[address] [address] Hematocrit (Bld) [Volume fraction] 34.9 % Normal 34.0-46.0 [facility] Comment on above: Performed By: #### 2 369781, 2955947, 8306748, 7245122, 5879928, 70168050 ####[address] [address] Hemoglobin (Bld) [Mass/Vol] 11.8 g/dL Low 12.0-16. 0 [facility] Comment on above: Performed By: #### 2 594623, 5602203, 0179570, 5071376, 7486706, 32025860 ####[place] [address] [place] [address] MCH (RBC) [Entitic mass] 32.6 pg Normal 27.0-34.0 [facility] Comment on above: Performed By: #### 2 050777, 9201920, 0305859, 3225747, 8636131, 97439260 ####[address] [address] MCHC (RBC) [Mass/Vol] 33.9 g/dL Normal 31.4-36.0 [facility] Comment on above: Performed By: #### 2 382754, 5353254, 2593642, 6814331, 4475519, 63102809 ####[facility] [address] [place] [address] MCV (RBC) [Entitic vol] 96.3 fL Normal 80.0-100.[address] [facility] Comment on above: Performed By: #### 2 773242, 6210415, 7900304, 8522889, 4439299, 17006864 ####[address] [address] Platelet mean volume (Bld) [Entitic vol] 8.2 fL Normal 6.4-10.8 [facility] Comment on above: Performed By: #### 2 376313, 2327849, 6239076, 7091331, 8253787, 59172015 ####[address] [address] Platelets (Bld) [#/Vol] 275.0 E9/L Normal 150.0-500.0 [facility] Comment on above: Performed By: #### 2 631884, 3659742, 8728489, 4007210, 2037936, 01240595 ####[address] [address] RBC (Bld) [#/Vol] 3.6 E12/L Low 4.3-5.9 [facility] Comment on above: Performed By: #### 2 159724, 0186370, 4820276, 9238271, 2237592, 99612294 ####[address] [address] WBC corrected for nucl RBC A uto (Bld) [#/Vol] 5.6 E9/L Normal 4.0-11.0 [facility] Comment on above: Performed By: #### 2 911486, 3282121, 8521014, 5786906, 2737430, 13497668 ####[place] [facility] [address] [place] [id number] CHEMISTRYOrdered By: SYSTEM SYSTEM on 05-11-2023 Albumin [Mass/Vol] 4.3 g/dL Normal 3.3 - 5.0 gm/dL F [facility] Remisol Albumin/Globulin [Mass ratio] 1.3 {ratio} Normal 1.1 - 2.2 [facility] Remisol ALP [Catalytic activity/Vol] 46 [iU]/d Normal 21 - 98 Int._Unit/L [facility] ALT No additional P-5'-P [Catalytic activity/Vol] 16 [iU]/d Normal 6 - 46 Int._Unit/L [facility] Amylase [Catalytic activity/Vol] 74 U/L Normal 25 - 157 unit/L [facility] Anion gap [Moles/Vol] 10 mmol/L Normal 6 - 16 mEq/L [facility] AST [Catalytic activity/Vol] 23 [iU]/d Normal 5 - 43 Int._Unit/L [facility] Bilirubin [Mass/Vol] 0.6 mg/dL Normal 0.0 - 1.1 mg/dL [facility] Calcium [Mass/Vol] 9.5 mg/dL Normal 8.9 - 11.1 mg/dL [facility] Chloride [Moles/Vol] 108 mmol/L Normal 101 - 111 mmol/ L [facility] CO2 [Moles/Vol] 27 mmol/L Normal 21 - 31 mmol/L [facility] Creatinine [Mass/Vol] 1.3 mg/dL Normal 0.5 - 1.3 mg/d L [facility] Remisol GFR/1.73 sq M.predicted among non-blacks MDRD (S/P/Bld) [Vol rate/Area] 44 mL/min/1.73 m2 Low >=59mL/min/1.73 m2 F [facility] Chem S Globulin (S) [Mass/Vol] 3.2 g/dL Normal 1.4 - 4.0 gm /dL [facility] Remisol Glucose [Mass/Vol] 93 mg/dL Normal 55 - 199 mg/dL FT Remisol Lipase [Catalytic activity/Vol] 46 U/L Normal 13 - 58 unit/L [facility] Remisol Potassium [Moles/Vol] 4.3 mmol/L Normal 3.5 - 5.3 mmol /L [facility] Remisol Protein [Mass/Vol] 7.5 g/dL Normal 6.0 - 7.8 gm/dL F [facility] Remisol Sodium [Moles/Vol] 141 mmol/L Normal 135 - 145 mmol/L [facility] Remisol Urea nitrogen [Mass/Vol] 21 mg/dL Normal 5 - 21 mg/d L [facility] Remisol Urea nitrogen/Creatinine [Mass ratio] 16 mg/mg Normal 10 - 20 [facility] Remisol CMPon 05-11-2023 Albumin [Mass/Vol] 4.3 g/dL Normal 3.3-5.0 [facility] Comment on above: Performed By: #### 2 972260, 6625456, 7289512, 9749564, 0179592, 12404894 ####[facility] [address] [place] [address] Albumin/Globulin (S) [Mass conc ratio] 1.3 Normal 1.1-2.2 [facility] Comment on above: Performed By: #### 2 808603, 3227170, 6491602, 7762431, 1525576, 10404771 ####[facility] [address] [place] [address] ALP [Catalytic activity/Vol] 46 Int._Unit/L Normal 21- 98 [facility] Comment on above: Performed By: #### 2 630054, 8255824, 3252215, 0524072, 4344520, 37746456 ####[facility] [address] [place] [address] ALT No additional P-5'-P [Catalytic activity/Vol] 16 Int._Unit/L Normal 6-46 [facility] Comment on above: Performed By: #### 2 074649, 5214605, 9697192, 7718718, 3543795, 88771358 ####[facility] [address] [place] [address] Anion gap [Moles/Vol] 10 mmol/L Normal 6-16 [facility] Comment on above: Performed By: #### 2 399040, 6896876, 3095470, 3858658, 4574040, 48795203 ####[facility] [address] [place] [address] AST [Catalytic activity/Vol] 23 Int._Unit/L Normal 5-4 3 [facility] Comment on above: Performed By: #### 2 101010, 7328067, 8721006, 0682668, 2960176, 85088867 ####[facility] [address] [place] [address] Bilirubin [Mass/Vol] 0.6 mg/dL Normal 0.0-1.1 [facility] Comment on above: Performed By: #### 2 619091, 9228816, 7265270, 7263226, 4418832, 23591800 ####[facility] [address] [place] [address] Calcium [Mass/Vol] 9.5 mg/dL Normal 8.9-11.1 [facility] Comment on above: Performed By: #### 2 638344, 4252647, 9313126, 3996712, 8255536, 54707941 ####[facility] [address] [place] [address] Chloride [Moles/Vol] 108 mmol/L Normal 101-111 [facility] Comment on above: Performed By: #### 2 769374, 2818719, 3536817, 7238009, 6472514, [id number] ####[facility] [address] [place] [address] CO2 [Moles/Vol] 27 mmol/L Normal 21-31 [facility] Comment on above: Performed By: #### 2 494631, 3699710, 0912641, 9913363, 9421973, [id number] ####[facility] [address] [place] [address] Creatinine [Mass/Vol] 1.3 mg/dL Normal 0.5-1.3 [facility] Comment on above: Performed By: #### 2 627280, 5012271, 9588903, 4133514, 7877874, [id number] ####[facility] [address] [place] [address] Globulin (S) [Mass/Vol] 3.2 g/dL Normal 1.4-4.[address] [facility] Comment on above: Performed By: #### 2 686363, 7092397, 0064497, 5013686, 8218613, [id number] ####[facility] [address] [place] [address] Glucose [Mass/Vol] 93 mg/dL Normal 55-199 [facility] Comment on above: Result Comment: If t his glucose result represents a fasting glucose, interpretation should refer to the following reference range: 55-99 mg/dL Performed By: #### 2 219299, 2137963, 1894314, 4032753, 4383914, [id number] ####[facility] [address] [place] [address] Potassium [Moles/Vol] 4.3 mmol/L Normal 3.5-5.3 [facility] Comment on above: Performed By: #### 2 833033, 5641876, 8929616, 0784842, 2535740, 79602555 ####[facility] [address] [place] [address] Protein [Mass/Vol] 7.5 g/dL Normal 6.0-7.8 [facility] Comment on above: Performed By: #### 2 564243, 3879838, 9788471, 5423997, 3769713, 69482329 ####[facility] [address] [place] [address] Sodium [Moles/Vol] 141 mmol/L Normal 135-145 [facility] Comment on above: Performed By: #### 2 087280, 7083007, 8411588, 7019559, 1354037, 25420230 ####[facility] [address] [place] [address] Urea nitrogen [Mass/Vol] 21 mg/dL Normal 5-21 [facility] Comment on above: Performed By: #### 2 743190, 9928882, 1045254, 7924565, 8638268, 20435509 ####[facility] [address] [place] [address] Urea nitrogen/Creatinine [Ma ss ratio] 16 No Units Normal 10-20 [facility] Comment on above: Performed By: #### 2 902207, 6395728, 3269593, 6973556, 5768402, 65038237 ####[facility] [address] [place] [address] Family Medicine Office/Clini c Noteon 05-11-2023 Family Medicine Office/Clinic Note HPI Staff Isaura is a 72 year old female presenting for acute visit Pain characteristics: Onset: 6weeks-1 month Pain location: Right upper abdomen/rib area no injury Medication used: Tylenol Questions/Concerns: pt states she had her Gallbladder removed Pt states has strong family history of bladder cancer, 7 years ago had prolapsed bladder and cystocele, minimal leaking with coughing and sneezing within the last 1-2 months began having light banda discharge denies pain but does notice a difference in odor. Pt has history of UTI. pt states blood pressures have been elevated at home. History of Present Illness pt presents today with right sided upper abdominal pain and banda colored discharge on her panty liner Review of Systems PHQ Score Initial Depression Screen Score: 0 ROS - Provider Constitutional: no fever, no chills, no sweats, no fatigue Respiratory: no shortness of breath, no cough, no orthopnea, no wheezing. Cardiovascular: no chest pain, no palpitations, no edema. Neurologic: no headache, no dizziness, no numbness, no weakness. right sided abdominal pain Physical Exam Vitals & Measurements HR: 62(Peripheral) RR: 18 BP: 130/80 SpO2: 98% HT: 64 in HT: 162 cm WT: 74.9 kg WT: 164.78 lb BMI: 28.54 General: alert, no acute distress ENMT: oral mucosa moist, no pharyngeal erythema or exudate Cardiovascular: regular rate and rhythm, normal peripheral perfusion Respiratory: Lungs CTA, respirations non labored Extremities: no deformity, no trauma Neurological: oriented x 4, LOC appropriate for age, CN II-XII intact, motor strength equal & normal bilaterally, speech normal Assessment/Plan 1. Right sided abdominal pain (R10.9: Unspecified abdominal pain) right upper quadrant pain. pt does not have gallbladder. will check labs and order ultrasound of abdomen and pelvis. all questions answered. will notify pt of results. labs drawn in office. RTC as needed Ordered: losartan, 25 mg = 1 tab(s), Oral, BID, # 180 tab(s), Refills(s) 0, Pharmacy: [facility] [id number], 162, cm, 05/11/23 9:36:00 EDT, Height/Length Dosing, 74.9, kg, 05/11/23 9:36:00 EDT, Weight Dosing Amylase Level CBC w/ Auto Diff Comprehensive Metabolic Panel Lipase Level UA With Cult Reflex 2. Postmenopause bleeding (N95.0: Postmenopausal bleeding) pt states she notices a banda colored discharge on her panty line. never notices anything on toilet paper or in toilet. pt has had uti in the past with no symptoms. will send urine for u/s and culture. pt is very concerned that she has a significant family history of bladder cancer. Ordered: losartan, 25 mg = 1 tab(s), Oral, BID, # 180 tab(s), Refills(s) 0, Pharmacy: [facility] [id number], 162, cm, 05/11/23 9:36:00 EDT, Height/Length Dosing, 74.9, kg, 05/11/23 9:36:00 EDT, Weight Dosing Amylase Level CBC w/ Auto Diff Comprehensive Metabolic Panel Lipase Level UA With Cult Reflex 3. Hypertension (I10: Essential (primary) hypertension) pt brings in BP log . BP is elevated every time she takes it. will increase losartan to 50mg BID. she is currently taking 25 in morning and 50mg in evening. pt will continue to monitor BP and bring the log back in when she comes in for AMW visit. 4. BMI 28.0-28.9,adult (Z68.28: Body mass index [BMI] 28.0-28.9, adult) BMI education complete Ordered: losartan, 25 mg = 1 tab(s), Oral, BID, # 180 tab(s), Refills(s) 0, Pharmacy: [facility] [id number], 162, cm, 05/11/23 9:36:00 EDT, Height/Length Dosing, 74.9, kg, 05/11/23 9:36:00 EDT, Weight Dosing Amylase Level CBC w/ Auto Diff Comprehensive Metabolic Panel Lipase Level UA With Cult Reflex 5. Non-smoker (Z78.9: Other specified health status) continue not smoking Ordered: losartan, 25 mg = 1 tab(s), Oral, BID, # 180 tab(s), Refills(s) 0, [facility] [id number], 162, cm, 05/11/23 9:36:00 EDT, Height/Length Dosing, 74.9, kg, 05/11/23 9:36:00 EDT, Weight Dosing Amylase Level CBC w/ Auto Diff Comprehensive Metabolic Panel Lipase Level UA With Cult Reflex Follow-up No qualifying data available Problem List/Past Medical History Ongoing Age-related osteoporosis without current pathological fracture Hypercholesterolemia Hyperlipidemia Hypertension Postmenopause bleeding Right sided abdominal pain TIA (transient ischemic attack) Historical No qualifying data Procedure/Surgical History Cholecystectomy, Colonoscopy, Laser. Medications aspirin 81 mg oral capsule, 81 mg= 1 cap(s), Oral, Daily glucosamine hydrochloride 1500 mg oral tablet, 1500 mg= 1 tab(s), Oral, Daily losartan 25 mg Tab, 25 mg= 1 tab(s), Oral, BID losartan 25 mg Tab, See Instructions, 3 refills meloxicam 15 mg Tab, See Instructions omega-3 polyunsaturated fatty acids 500 mg oral capsule, 500 mg= 1 cap(s), Oral, Daily rosuvastatin 20 mg Tab, See Instructions vitamin E 450 mg oral capsule, See Instructions Zioptan 0.0015% ophthalmic solution, See Instructions Allergies (more content not included)... Normal [facility] Comment on above: Result Comment: Elec tronically Signed By: Violet Allen\.br\Date and Time Signed: 05/11/23 12:51 EDT HEMATOLOGYOrdered By: SYSTEM SYSTEM on 05-11-2023 Basophils/100 WBC (Bld) 0.8 % Normal 0.0 - 2.0 % [facility] HemeAutoSS Basophils/Leukocytes Auto (B ld) [Pure # fraction] 0.0 E9/L Normal 0.0 - 0.2 E9/L [facility] HemeAutoSS Eosinophils/100 WBC (Bld) 5.2 % Normal 0.0 - 8.0 % [facility] HemeAutoSS Eosinophils/Leukocytes Auto (Bld) [Pure # fraction] 0.3 E9/L Normal 0.0 - 0.5 E9/L [facility] HemeAutoS S Lymphocytes/100 WBC (Bld) 31.3 % Normal 14.0 - 50. 0 % [facility] HemeAutoSS Lymphocytes/Leukocytes Auto (Bld) [Pure # fraction] 1.8 E9/L Normal 1.0 - 4.0 E9/L [facility] HemeAutoS S Monocytes/100 WBC (Bld) 7.8 % Normal 4.0 - 14.0 % [facility] HemeAutoSS Monocytes/Leukocytes Auto (B ld) [Pure # fraction] 0.4 E9/L Normal 0.2 - 1.0 E9/L [facility] HemeAutoSS Neutrophils/100 WBC (Bld) 54.9 % Normal 36.0 - 75. 0 % [facility] HemeAutoSS Neutrophils/Leukocytes Auto (Bld) [Pure # fraction] 3.1 E9/L Normal 2.0 - 7.5 E9/L [facility] HemeAutoS S HEMATOLOGYOrdered By: Nato Cheung on 05-11-2023 Erythrocyte distribution wid th (RBC) [Ratio] 12.9 % Normal 10.9 - 14.2 % [facility] HemeAutoSS Hematocrit (Bld) [Volume fraction] 34.9 % Normal 34.0 - 46.0 % [facility] HemeAutoSS Hemoglobin (Bld) [Mass/Vol] 11.8 g/dL Low 12.0 - 1 6.0 gm/dL [facility]eAutoSS MCH (RBC) [Entitic mass] 32.6 pg Normal 27.0 - 34.0 pg [facility] HemeAutoSS MCHC (RBC) [Mass/Vol] 33.9 g/dL Normal 31.4 - 36.0 gm /dL [facility] HemeAutoSS MCV (RBC) [Entitic vol] 96.3 fL Normal 80.0 - 100.0 fL [facility] HemeAutoSS Platelet mean volume (Bld) [Entitic vol] 8.2 fL Normal 6.4 - 10.8 fL [facility] HemeAutoSS Platelets (Bld) [#/Vol] 275.0 E9/L Normal 150.0 - 500. 0 E9/L [facility] HemeAutoSS RBC (Bld) [#/Vol] 3.6 E12/L Low 4.3 - 5.9 E12/L [facility] HemeAutoSS WBC corrected for nucl RBC A uto (Bld) [#/Vol] 5.6 E9/L Normal 4.0 - 11.0 E9/L [facility] HemeAutoSS Lipase Levelon 05-11-2023 Lipase [Catalytic activity/Vol] 46 U/L Normal 13-5 8 [facility] Comment on above: Performed By: #### 2 687955, 7088512, 5276482, 8131080, 6235733, 93453011 ####[facility] [address] [place] [address] UA With Cult Reflexon 2022 Bacteria LM Ql (Urine sed) TRACE Normal Trace [facility] Comment on above: Performed By: #### 2 257019, [id number] ####[facility] [address] [place] [address] Bilirubin Ql (U) Negative Normal Negative [facility] Comment on above: Performed By: #### 2 136873, [id number] ####[facility] [address] [place] [address] Clarity (U) CLEAR Normal Clear [facility] Comment on above: Performed By: #### 2 133854, [id number] ####[facility] [address] [place] [address] Color (U) YELLOW Normal Yellow [facility] Comment on above: Performed By: #### 2 398800, [id number] ####[facility] [address] [place] [address] Crystals LM Ql (Urine sed) Present Normal [facility] Comment on above: Performed By: #### 2 670158, 85665935 ####[facility] [address] [place] [address] Epithelial cells.squamous LM .HPF (Urine sed) [#/Area] 5-8 Normal 0-2 [facility] Comment on above: Performed By: #### 2 194132, 23722749 ####[facility] [address] [place] [address] Glucose Test strip (U) [Mass/Vol] Negative Normal Negative [facility] Comment on above: Performed By: #### 2 824411, 10434299 ####[facility] [address] [place] [address] Hemoglobin Ql (U) TRACE Abnormal Negative [facility] Comment on above: Performed By: #### 2 295665, 27886086 ####[facility] [address] [place] [address] Ketones (U) [Mass/Vol] Negative Normal Negative [facility] Comment on above: Performed By: #### 2 884318, 83869125 ####[facility] [address] [place] [address] [place].plasma/[place].RBC (Bld) [Mass ratio] 0-3 N ormal 0-3 [facility] Comment on above: Performed By: #### 2 731712, 28400932 ####[facility] [address] [facility] [place] [address] Mucus Ql (Urine sed) 2+ Normal [facility] Comment on above: Performed By: #### 2 020386, [id number] ####[facility] [address] [facility] [place] [address] Nitrite Ql (U) Negative Normal Negative [facility] Comment on above: Performed By: #### 2 880666, [id number] ####[facility] [address] [facility] [place] [address] pH (U) 7.0 [pH] Invalid Interpretation Code 5.0-9.0 [facility] Comment on above: Performed By: #### 2 640932, 59036571 ####[facility] [address] [facility] [place] [address] Protein (U) [Mass/Vol] Negative Normal Negative [facility] Comment on above: Performed By: #### 2 760767, 95001942 ####[facility] [address] [place] [address] Specific gravity (U) [Rel density] 1.010 Invalid Interpretation Code 1.005-1.030 Fish er [facility] Comment on above: Performed By: #### 2 125059, [id number] ####[place] [address] Type of Urine collection method Clean Catch Normal [facility] Comment on above: Performed By: #### 2 452938, [id number] ####[place] [address]57 Urobilinogen Qn (U) 0.2 {Leon'U}/dL Normal 0.0-1.0 [facility] Comment on above: Performed By: #### 2 549591, [id number] ####[place] [address] WBC Auto Ql (U) 1+ Abnormal Negative [facility] Comment on above: Performed By: #### 2 313445, 09878830 ####[facility] [address] [place], [place] [address] WBC LM.HPF (Urine sed) [#/Area] 0-5 Normal 0-5 [facility] Comment on above: Performed By: #### 2 867158, [id number] ####[place] [address] URINALYSISOrdered By: Dinah murray on 05-11-2023 Bacteria LM Ql (Urine sed) Trace /HPF Normal Trace/HPF [facility] UA Auto SS Bilirubin Ql (U) Negative (05/11/23 12:05 PM) Normal Negative [facility] UA Auto SS Clarity (U) Clear (05/11/23 12:05 PM) Normal Clear [facility] UA Auto SS Color (U) Yellow (05/11/23 12:05 PM) Normal Yellow [facility] UA Auto SS Crystals LM Ql (Urine sed) Present (05/11/23 12:05 PM) Normal [facility] UA Auto SS Epithelial cells.squamous LM.HPF (Urine sed) [#/Area] 5-8 /HPF Normal 0-2/HPF [facility] UA Auto SS Glucose Test strip (U) [Mass/Vol] Negative (05/11/23 12:05 PM) Normal Negative [facility] UA Auto SS Hemoglobin Ql (U) Trace *ABN* (05/11/23 12:05 PM) Invalid Interpretation Code Negative [facility] UA Auto SS Ketones (U) [Mass/Vol] Negative (05/11/23 12:05 PM) Normal Negative [facility] UA Auto SS [place].plasma/Lithi um.RBC (Bld) [Mass ratio] 0-3 /HPF Normal 0-3/HPF [facility] UA Auto SS Mucus Ql (Urine sed) 2+ (05/11/23 12:05 PM) Normal [facility] UA Auto SS Nitrite Ql (U) Negative (05/11/23 12:05 PM) Normal Negative [facility] UA Auto SS pH (U) 7.0 *NA* (05/11/23 12:05 PM) Invalid Interpretation Code 5.0 - 9.0 [facility] UA Auto SS Protein (U) [Mass/Vol] Negative (05/11/23 12:05 PM) Normal Negative [facility] UA Auto SS Specific gravity (U) [Rel density] 1.010 *NA* (05/11/23 12:05 PM) Invalid Interpretation Code 1.005 - 1.030 [facility] UA Auto SS UA Spec Desc Clean Catch (05/11/23 12:05 PM) Normal [facility] UA Auto SS Urobilinogen Qn (U) 0.2888516 {Leon'U}/dL Normal 0.0 - 1.0 EU/dL [facility] UA Auto SS WBC Auto Ql (U) 1+ *ABN* (05/11/23 12:05 PM) Invalid Interpretation Code Negative [facility] UA Auto SS WBC LM.HPF (Urine sed) [#/Area] 0-5 /HPF Normal 0-5/HPF [facility] UA Auto SS eGFRon 05-11-2023 GFR/1.73 sq M.predicted to g non-blacks MDRD (S/P/Bld) [Vol rate/Area] 44 mL/min/1.73 m2 Low >=59 [facility] Comment on above: Order Comment: Order added by Discern Expert. Result Comment: Deployment Technician sommer kidney disease could be indicated at eGFR's of less than 60 mL/min/1.73m2. Kidney failure is indicated at less than 15 mL/min/1.73m2. Performed By: #### 2 336214, 8263801, 9316147, 7864537, 4215479, 31021758 ####[facility] [address] [place] [address] Outside Mammographyon 2022 Outside Mammography [id number]:127 Normal [facility] Consultation Noteon 02-02-20 Consultation Note [id number]:127 Normal [facility] Family Medicine Office/Clini c Noteon 12-02-2022 Family Medicine Office/Clinic Note Chief Complaint establish care follow up htn HPI Staff establish care: Establish Care: History: htn, hypercholesterolemia, osteoporosis Last provider: Dr Gambino Any recent labs: January 2022 Health Maintenance UTD: Colonoscopy: due this year needs to schedule next month Mammogram: 2021 Pelvic/Pap: due Aug 13 covid: refused Acute: Current issues/complaints: follow up elevated blood pressure and also having alot of work done on her eyes and diagnosed with glaucoma. Following with specialist. History of Present Illness Isaura Rivera presents today to establish care. She is accompanied by her , Charlie. The patient has a history of hypertension. She monitors her blood pressure at home with an automatic cuff and states that her blood pressures are all over the place. Her cuff is approximately 1.5 years old. She is currently taking losartan 25 mg in the morning and 50 mg at night. The patient's last DEXA scan showed osteopenia. She took Fosamax previously for 5 years. She is not interested in Prolia at this time. She follows with gynocology, Dr. Richardson. The patient has a history of osteoarthritis. She is currently taking meloxicam as needed. The patient shopped until she dropped in 06/2022, and after a couple of days, she started experiencing pain in her foot. Initially, she thought it was from shopping too much, but then her pain worsened and she was noticeably limping in 07/2022. She was seen by Dr. Gambino, who did an x-ray and referred her to podiatry, Dr. Magana, who diagnosed her with Sinus Tarsi syndrome. He advised her to take meloxicam every day for 2 weeks, which was slightly beneficial. She also received a series of 3 cortisone injections, which improved her pain. He gave her the option of continuing with further treatments or stopping there and she decided not to pursue any further treatments at that time. The patient has a history of hypercholesterolemia. She is currently taking rosuvastatin, which works well for her. She tried multiple medications in the past prior to rosuvastatin, but states that they were not effective. The patient saw her electric meter inspector for her annual checkup and was diagnosed with glaucoma. She underwent laser treatment of bilateral eyes. She has a follow-up appointment with him next week. The patient states that for the last 3 years, she has been seeing double out of her left eye. Her electric meter inspector informed her that it was ghost shadows. 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 They were supposed to be removed at the end of 10/2022; however, it was cancelled and she is now scheduled to have them removed on 01/03/2023. Review of Systems PHQ Score Initial Depression Screen Score: 0 Physical Exam Vitals & Measurements HR: 69(Peripheral) RR: 16 BP: 140/78 SpO2: 96% HT: 64 in HT: 162.56 cm WT: 76.5 kg WT: 168.3 lb BMI: 28.95 General: alert, no acute distress ENMT: oral mucosa moist, no pharyngeal erythema or exudate Cardiovascular: regular rate and rhythm, normal peripheral perfusion Respiratory: Lungs CTA, respirations non labored Extremities: no deformity, no trauma Neurological: oriented x 4, LOC appropriate for age, CN II-XII intact, motor strength equal & normal bilaterally, speech normal Assessment/Plan 1. Hypercholesterolemia (E78.00: Pure hypercholesterolemia, unspecified) We will continue on Crestor. We will do a lab check in 6 months. 2. Hypertension (I10: Essential (primary) hypertension) The patient's blood pressure is at goal today. We will refill the patient's medication at this time. 3. Age-related osteoporosis without current pathological fracture (M81.0: Age-related osteoporosis without current pathological fracture) I reviewed the DEXA scan today. The patient does not want to try any medication at this time as now she is osteopenic. 4. BMI 28.0-28.9,adult (Z68.28: Body mass index [BMI] 28.0-28.9, adult) BMI education given. 5. Over weight (E66.3: Overweight) As above. ATTESTATION: Documentation services were performed after patient or guardian consented to allow Anthony Humphrey to record this visit. YAA mental health specialist and provider reviewed before signing. YAA: Angeline Wong. Follow-up No qualifying data available Problem List/Past Medical History Ongoing Age-related osteoporosis without current pathological fracture Hypercholesterolemia Hyperlipidemia Hypertension TIA (transient ischemic attack) Historical No qualifying data Procedure/Surgical History Cholecystectomy, Colonoscopy, Laser. Medications aspirin 81 mg oral capsule, 81 mg= 1 cap(s), Oral, Daily glucosamine hydrochloride 1500 mg oral tablet, 1500 mg= 1 tab(s), Oral, Daily losartan 25 mg Tab, See Instructions meloxicam 15 mg Tab, 15 mg= 1 tab(s), Oral, Daily omega-3 polyunsaturated fatty acids 500 mg oral capsule, 500 mg= 1 cap(s), Oral, Daily rosuvastatin 20 mg Tab, (more content not included)... Normal [facility] Comment on above: Result Comment: Elec tronically Signed By: Job Alvarado MD\.br\Date and Time Signed: 12/02/22 13:01 EDT\.br\Electronically Co-Signed By: Angeline Wong\.br\Date and Time Co-Signed: 12/01/22 16:53 EDT [facility] 11-15-2022 Patient Logs [id number] D:127 Normal [facility] Patient [facility] 11-03-2022 Patient Logs [id number] CD:127 Normal [facility] CULTURE URINEon 07-06-2022 CULTURE URINE Culture Observations : LIGHT GROWTH OF MIXED GENITAL NAN. NO POTENTIAL PATHOGENS SEEN. Normal [facility] Comment on above: Performed By: #### U RCX #### [facility] [address] [place] [address] [address] Melchor Brock UA (CLEAN/CATCH) MICROSCOPIC IF INDICATEon 07-06-2022 Bilirubin Ql (U) Negative Normal NEGATIVE [facility] Comment on above: Performed By: #### U MICRO, UARMICR #### [facility] [address] [place] [address] [address] Melchor Brock Clarity (U) CLEAR Normal CLEAR [facility] Comment on above: Performed By: #### U MICRO, UARMICR #### [facility] [address] [place] [address] [address] Melchor Brock Color (U) LT. YELLOW Normal YELLOW [facility] Comment on above: Performed By: #### U MICRO, UARMICR #### [facility] [address] [place] [address] Dr. Melchor Brock Glucose Ql (U) Negative Normal NEGATIVE [facility] Comment on above: Performed By: #### U MICRO, UARMICR #### [facility] [address] [place] [address] Dr. Melchor Brock Hemoglobin Ql (U) TRACE-INTACT Abnormal NEGATIVE [facility] Comment on above: Performed By: #### U MICRO, UARMICR #### [facility] [address] [place] [address] Dr. Melchor Brock Ketones Ql (U) Negative Normal NEGATIVE [facility] Comment on above: Performed By: #### U MICRO, UARMICR #### [facility] [address] [place] [address] [address] Melchor Brock LEUKOCYTES TRACE Abnormal NEGATIVE [facility] Comment on above: Performed By: #### U MICRO, UARMICR #### [facility] [address] [place] [address] Dr. Melchor Brock Nitrite Ql (U) Negative Normal NEGATIVE [facility] Comment on above: Performed By: #### U MICRO, UARMICR #### [facility] [address] [place] [address] Dr. Melchor Brock pH (U) 6.0 [pH] Normal 5-9 [facility] Comment on above: Performed By: #### U MICRO, UARMICR #### [facility] [address] [place] [address] Dr. Melchor Brock SPEC GRAVITY 1.020 Normal 1.005-<=1.025 [facility] Comment on above: Performed By: #### U MICRO, UARMICR #### [facility] Laboratory [address] [place] [address] Dr. Melchor Brock UA PROTEIN Negative Normal NEGATIVE/ TRACE [facility] Comment on above: Performed By: #### U MICRO, UARMICR #### [facility] [address] [place] [address] Dr. Melchor Brock UR MICRO IND INDICATED Normal [facility] Comment on above: Performed By: #### U MICRO, UARMICR #### [facility] [address] [place] [address] Dr. Melchor Brock Urobilinogen Qn (U) 0.2 {Leon'U}/dL Normal 0.2 - 1. 0 [facility] Comment on above: Performed By: #### U MICRO, UARMICR #### [facility] [address] [place] [address] Dr. Melchor Brock URINE MICROSCOPIC ONLYon BACTERIA NONE SEEN Normal NONE SEEN The [facility] Comment on above: Performed By: #### G SHON, LIPID #### [facility] [address] [place] [address] Dr. Melchor Brock Bacteria identified Cx Nom (U) CX ALREADY ORDERED Normal [facility] Comment on above: Performed By: #### G SHON, LIPID #### [facility] [address] [place] [address] Dr. Melchor Brock CAST NONE SEEN Normal NONE SEEN [facility] Comment on above: Performed By: #### G SHON, LIPID #### [facility] [address] [place] [address] Dr. Melchor Brock Crystals LM Nom (Urine sed) NONE SEEN Normal NONE SEE N [facility] Comment on above: Performed By: #### G SHON, LIPID #### [facility] [address] [address] [address] Melchor Brock Epithelial cells LM Ql (Urine sed) RARE Normal N ONE SEEN /RARE [facility] Comment on above: Performed By: #### G SHON, LIPID #### [facility] [address] [address] [address] Melchor Brock MUCOUS NONE SEEN Normal NONE SEEN [facility] Comment on above: Performed By: #### G SHON, LIPID #### [facility] [address] [address] [address] Melchor Brock RBC 0-2 Normal 0-2 [facility] Comment on above: Performed By: #### G SHON, LIPID #### [facility] [address] [address] [address] Melchor Brock WBC 0-2 Abnormal NONE SEEN [facility] Comment on above: Performed By: #### G SHON, LIPID #### [facility] [address] [address] [address] Melchor Brock MG MAMM SCREEN 3D SARAHI CADon 03-15-2022 MG MAMM SCREEN 3D SARAHI CAD Patient: ISAURA RIVERA Exam Date: 03/15/2022 : 1950 Gender:F Ordering : DR FARA RICHARDSON . Admission #: [id number] Family : Order #: [id number] CLICK HERE TO VIEW EXAM RADIOLOGY REPORT PROCEDURE: MAMMOGRAM SCREENING 3D BILATERAL CAD COMPARISON: MG MAMM SCREEN 3D SARAHI CAD, 03/13/2021. MG MAMM LT DIAG W CAD, 03/12/2020. INDICATIONS: Screening mammography Calculator Name NCI Breast Cancer Risk Assessment Tool 5 Year Breast Cancer Risk 1.40% Lifetime Breast Cancer Risk 4.30% Personal Breast Cancer No Personal Ovarian Cancer No Treatments None Family Cancers Aunt-maternal with breast cancer at age 70; Father with lung cancer at age 70. LOCATION: [facility] BREAST COMPOSITION: Heterogeneously dense,which may obscure small masses. FINDINGS: DIAGNOSTIC CATEGORY 1--NEGATIVE. RIGHT BREAST: No significant suspicious finding. No significant change has occurred. LEFT BREAST: No significant suspicious finding. No significant change has occurred. RECOMMENDATIONS: ROUTINE MAMMOGRAM AND CLINICAL EVALUATION IN 12 MONTHS. PLEASE NOTE: A NORMAL MAMMOGRAM DOES NOT EXCLUDE THE POSSIBILITY OF BREAST CANCER. A CLINICALLY SUSPICIOUS PALPABLE LUMP SHOULD BE BIOPSIED. Dictated by: Tamir Conley M.D. on 03/15/2022 at 11:39 Approved by: Tamir Conley M.D. on 03/15/2022 at 11:41 Normal [facility] GLUCOSE BLOODon 02-09-2022 Glucose [Mass/Vol] 99 mg/dL Normal 74-106 [facility] Comment on above: Performed By: #### G SHON, LIPID #### [facility] [address] [address] [address] Melchor Brock LIPID PROFILEon 02-09-2022 CHOL-HDL RATIO NORM SEE BELOW Normal [facility] Comment on above: Result Comment: 3.3 - 4.4 LOW RISK 4.4 - 7.1 AVERAGE RISK 7.1 - 11.0 MODERATE RISK >11.0 HIGH RISK Performed By: #### G SHON, LIPID #### [facility] [address] [address] [address] Melchor Brock Cholesterol [Mass/Vol] 202 mg/dL Critically high <=200 [facility] Comment on above: Performed By: #### G SHON, LIPID #### [facility] [address] [address] [address] Melchor Brock Cholesterol in HDL [Mass/Vol] 56 mg/dL Normal 40-60 [facility] Comment on above: Performed By: #### G SHON, LIPID #### [facility] [address] [address] [address] Melchor Brock Cholesterol in LDL [Mass/Vol] 112.6 mg/dL Normal [facility] Comment on above: Performed By: #### G SHON, LIPID #### [facility] [address] [address] [address] Melchor Brock Cholesterol.total/Cholestero l in HDL [Mass ratio] 3.6 {ratio} Normal [facility] Comment on above: Performed By: #### G SHON, LIPID #### [facility] [address] [address] [address] Melchor Brock HDL NORMAL > or = 60 mg/dl - LO W CARDIOVASCULAR RISK <40 mg/dl - HIGH CARDIOVASCULAR RISK Normal [facility] Comment on above: Performed By: #### G SHON, LIPID #### [facility] [address] [address] [address] Melchor Brock LDL CALC NORMAL SEE BELOW Normal [facility] Comment on above: Result Comment: <100 mg/dl OPTIMAL 100 - 129 mg/dl NEAR OR ABOVE OPTIMAL 130 - 159 mg/dl BORDERLINE HIGH 160 - 189 mg/dl HIGH >190 mg/dl VERY HIGH Performed By: #### G SHON, LIPID #### [facility] [address] [address] [address] Melchor Brock Triglyceride [Mass/Vol] 167 mg/dL Critically high <=150 [facility] Comment on above: Performed By: #### G SHON, LIPID #### [facility] [address] [address] [address] Melchor Brock VLDL CALC 33.4 mg/dL Normal [facility] Comment on above: Performed By: #### G SHON, LIPID #### [facility] [address] [address] [address] Melchor Brock LIPID PROFILEon 11-05-2021 CHOL-HDL RATIO NORM SEE BELOW Normal [facility] Comment on above: Result Comment: 3.3 - 4.4 LOW RISK 4.4 - 7.1 AVERAGE RISK 7.1 - 11.0 MODERATE RISK >11.0 HIGH RISK Performed By: #### L IPID, BMP #### [facility] [address] [address] [address] Melchor Brock Cholesterol [Mass/Vol] 244 mg/dL Critically high <=200 [facility] Comment on above: Performed By: #### L IPID, BMP #### [facility] [address] [address] [address] Melchor Brock Cholesterol in HDL [Mass/Vol] 60 mg/dL Normal 40-60 [facility] Comment on above: Performed By: #### L IPID, BMP #### [facility] [address] [place] [address] Dr. Melchor Brock Cholesterol in LDL [Mass/Vol] 158.4 mg/dL Normal [facility] Comment on above: Performed By: #### L IPID, BMP #### [facility] [address] [place] [address] Dr. Melchor Brock Cholesterol.total/Cholestero l in HDL [Mass ratio] 4.1 {ratio} Normal [facility] Comment on above: Performed By: #### L IPID, BMP #### [facility] [address] [address] [address] Melchor Brock HDL NORMAL > or = 60 mg/dl - LO W CARDIOVASCULAR RISK <40 mg/dl - HIGH CARDIOVASCULAR RISK Normal [facility] Comment on above: Performed By: #### L IPID, BMP #### [facility] [address] [place] [address] Dr. Melchor Brock LDL CALC NORMAL SEE BELOW Normal [facility] Comment on above: Result Comment: <100 mg/dl OPTIMAL 100 - 129 mg/dl NEAR OR ABOVE OPTIMAL 130 - 159 mg/dl BORDERLINE HIGH 160 - 189 mg/dl HIGH >190 mg/dl VERY HIGH Performed By: #### L IPID, BMP #### [facility] [address] [place] [address] Dr. Melchor Brock Triglyceride [Mass/Vol] 128 mg/dL Normal <=150 [facility] Comment on above: Performed By: #### L IPID, BMP #### [facility] [address] [place] [address] Dr. Melchor Brock VLDL CALC 25.6 mg/dL Normal [facility] Comment on above: Performed By: #### L IPID, BMP #### [facility] [address] [place] [address] Dr. Melchor Brock PROF CHEM 8 (BAS METB)on Anion gap [Moles/Vol] 10.7 mmol/L Normal [facility] Comment on above: Performed By: #### L IPID, BMP #### [facility] [address] [address] [address] Melchor Brock Calcium [Mass/Vol] 7.8 mg/dL Critically low 8.4-10.2 [facility] Comment on above: Performed By: #### L IPID, BMP #### [facility] [address] [place] [address] Dr. Melchor Brock Chloride [Moles/Vol] 103 mmol/L Normal 98-107 [facility] Comment on above: Performed By: #### L IPID, BMP #### [facility] [address] [place] [address] Dr. Melchor Brock CO2 [Moles/Vol] 28.4 mmol/L Normal 22.0-30.0 [facility] Comment on above: Performed By: #### L IPID, BMP #### [facility] [address] [place] [address] Dr. Melchor Brock Creatinine [Mass/Vol] 1.05 mg/dL Critically high 0.52-1.04 [facility] Comment on above: Performed By: #### L IPID, BMP #### [facility] [address] [place] [address] Dr. Melchor Brock EGFR-AF MONTENEGRIN >60 Normal >=60 [facility] Comment on above: Performed By: #### L IPID, BMP #### [facility] [address] [place] [address] Dr. Melchor Brock EGFR-NON AF MONTENEGRIN 52 mL/min/1.73m2 Critically low >=60 [facility] Comment on above: Performed By: #### L IPID, BMP #### [facility] [address] [place] [address] Dr. Melchor Brock Glucose [Mass/Vol] 98 mg/dL Normal 74-106 [facility] Comment on above: Performed By: #### L IPID, BMP #### [facility] [address] [place] [address] Dr. Melchor Brock Potassium [Moles/Vol] 4.1 mmol/L Normal 3.4-5.0 [facility] Comment on above: Performed By: #### L IPID, BMP #### [facility] [address] [address] [address] Melchor Brock Sodium [Moles/Vol] 138 mmol/L Normal 137-145 [facility] Comment on above: Performed By: #### L IPID, BMP #### [facility] [address] [address] [address] Melchor Brock Urea nitrogen [Mass/Vol] 15.0 mg/dL Normal 7.0-17.0 [facility] Comment on above: Performed By: #### L IPID, BMP #### [facility] [address] [address] [address] Melchor Brock Urea nitrogen/Creatinine [Mass ratio] 14.3 mg/mg Normal [facility] Comment on above: Performed By: #### L IPID, BMP #### [facility] [address] [address] [address] Melchor Brock ECHOCARDIO M/2D COMPLETEon 0 10-05-2021 ECHOCARDIO M/2D COMPLETE Patient: ISAURA HERRON Exam Date: 10/05/2021 : 1950 Gender:F Ordering : DR ANJELICA GAMBINO . Admission #: [id number] Family : Order #: [id number] CLICK HERE TO VIEW EXAM ECHOCARDIOGRAM REPORT PROCEDURE: CARDIO PULMONARY ECHOCARDIO M/2D COMP INDICATIONS: TIA COMPARISON: None. DESCRIPTION: COMPLETE ECHOCARDIOGRAM Real-time transthoracic echocardiography with 2D, M-mode, spectral and color flow Doppler performed. QUALITY: Technical quality was good. LEFT VENTRICLE: Normal chamber size. Normal left ventricular wall thickness. Global left ventricular systolic function is normal. Visual estimation of left ventricular ejection fraction is 60-65%. LV EF: DIASTOLIC: Normal diastolic function. ATRIAL SEPTUM: Intact atrial septum. Agitated saline contrast does not reveal an intra-cardiac shunt. LEFT ATRIUM: Normal chamber size. RIGHT ATRIUM: Normal chamber size. RIGHT VENTRICLE: Normal chamber size. Normal right ventricular systolic function. TRICUSPID VALVE: Normal mobility and thickness. No stenosis with mild regurgitation. No evidence of pulmonary hypertension. RVSP 32 mmHg. MITRAL VALVE: Normal mobility and thickness. No mitral valve prolapse. No evidence of mitral valve stenosis. There is no mitral annular calcification. Mild mitral regurgitation. AORTIC VALVE: Normal trileaflet appearance. No visible sclerosis. Normal leaflet mobility. No evidence of aortic valve stenosis. No aortic regurgitation. AORTIC ROOT: Normal diameter and appearance. PULMONIC VALVE: Normal thickness and mobility. No stenosis. Trivial regurgitation. PERICARDIUM: No evidence of pericardial effusion. IVC: Collapses with inspirations. Normal size. PLEURA: CONCLUSION: 1. Normal ventricular function. 2. Mild mitral and tricuspid regurgitation. 3. Normal right sided pressures. 4. No evidence of intracardiac shunt by agitated saline study. Adult Echocardiography Procedure Report Left Ventricle LVEDD (3.7 - 5.6 cm): 4.17 cm LVESD (2.2 - 4.0 cm): 2.71 cm LVIVS thickness (0.6 - 1.2 cm): 1.02 cm LVPW thickness (0.5 - 1.0 cm): 7.45 mm e': 8.99 cm/s E - e': 12.60 LVOT Area (cm2): 3.14 cm2 LVOT Diameter 2.00 cm Left Ventricular Ejection Fraction: 64.70 % Left Ventricular Ejection Fraction (A2C): 69 % Left Ventricular Ejection Fraction (A4C): 56 % Left Atrium LA Volume Index (2D A2C): 22.90 ml/m2 Left Atrium Systolic Dimension: 3.60 cm Left Atrium Systolic Area(A2C): 16.40 cm2 Left Atrium Systolic Area(A4C): 20.70 cm2 Left Atrium Systolic Volume(A2C): 48468 mm3 Left Atrium Systolic Volume(A4C): 44027 mm3 Mitral Valve MV E to A Ratio: 1.10 Deceleration [place]: 7410 mm/s2 Mitral Valve A-Wave Peak Velocity: 106.00 cm/s Mitral Valve E-Wave Peak Velocity: 113.00 cm/s Right Ventricle RV Internal Diastolic Dimension: 3.09 cm Aorta AO Root Diam: 2.60 cm Aortic Valve AoV Area (Peak Cisco): 3.19 cm2 Aortic Valve Cusp Separation: 1.40 cm Peak Velocity(Antegrade Flow): 125.00 cm/s Peak Gradient(Antegrade Flow): 6 mm[Hg] Tricuspid Valve Peak Velocity (Regurgitant Flow): 221.00 cm/s, 244.00 cm/s Pulmonic Valve Peak Velocity: 105.00 cm/s Peak Gradient: 4 mm[Hg] Right Atrium Dictated by: Coy Dove M.D. on 10/06/2021 at 08:29 Approved by: Coy Dove M.D. on 10/06/2021 at 08:32 Normal [facility] XR DEXA BONE DENSITYon 09-18 XR DEXA BONE DENSITY EXAMINATION: XR DEX A BONE DENSITY, 09/18/2021 10:15 AM EST HISTORY: Menopause present COMPARISON: 09/17/2019 TECHNIQUE: Dual-energy X-ray absorptiometry (DEXA) bone density study performed for the axial skeleton. FINDINGS: Bone mineral density AP spine L1-L4 measures 1.377 g/sq cm. T score 1.6. WHO classification: Normal Lowest bone mineral density is in the left femoral neck measuring 0.816 g/sq cm. T score -1.6. WHO classification: Osteopenia IMPRESSION: Osteopenia. Moderate fracture risk Electronically authenticated by: KVNG TILLMAN Date: 2021-09-18 10:56 Normal [facility] DEXA BONE DENSITY AXIAL SKEL ETONon 09-12-2017 DEXA BONE DENSITY AXIAL SKELETON REPORT: DEXA scanTECHNIQUE: Routine bone densitometry of the lumbar spine and hips performed.INDICATION: Postmenopausal female, screeningFINDINGS: Compared to 04/17/2015. Combined T score of the lumbar spine is normal at 1.0. T score of the left femoral neck is osteopenic at -1.4. T score of the right femoral neck is osteopenic at -1.6. No significant change in the density of the spine or hips since prior.Final report electronically signed by Lora Mondragon on 09/12/2017 4:56 PMIMPRESSION: Osteopenia of both femoral necksInterpreted by:ARLEY Valenciaigned by:Lora Mondragon MD09/12/17inal result Normal [facility] DIGITAL SCREEN BILATERAL on 09-12-2017 [facility] DIGITAL SCREEN BILATERAL REPORT: BILATERAL DIGITAL SCREENING MAMMOGRAM WITH ASSISTANCE OF CADINDICATION: ScreeningFINDINGS: Compared to 07/30/2016, 04/17/2015, 04/16/2014, 10/26/2011 and 06/09/2010. The breasts are heterogeneously dense. No suspicious calcifications, mass lesions, architectural distortion or skin thickening.Final report electronically signed by Lora Mondragon on 09/12/2017 5:38 PMIMPRESSION: No mammographic evidence of malignancy. (CATEGORY 1 - ACR BI-RADS: NEGATIVE)Interpreted by:ARLEY Valenciaigned by:Lora Mondragon MD09/12/17inal result Normal [facility] n Hospital Encounters Encounter Date Encounter Type Care Provider Facility Start: 07-27-2023 End: 07-27-2023 ambulatory ARIEL DAS Not Available Start: 06-13-2023 End: 06-14-2023 ambulatory Job Alvarado [facility]: [facility] Start: 05-30-2023 End: 05-31-2023 ambulatory Job Alvarado Facility:[facility] Start: 05-30-2023 End: 05-31-2023 ambulatory Job Alvarado Facility: [facility] Start: 05-11-2023 End: 05-12-2023 ambulatory Violet Lauren Facility:[facility] Start: 05-11-2023 End: 05-11-2023 Lab Drop off Violet Lauren [facility] Start: 12-01-2022 End: 12-02-2022 ambulatory Job Alvarado Facility[facility] Start: 10-28-2022 ambulatory Job Alvarado Facility:[facility] Start: 08-03-2022 End: 08-04-[address] ANJELICA GAMBINO Facility:[facility] Start: 07-06-2022 End: 07-07-[address] ANJELICA GAMBINO Facility:[facility] Start: 03-15-2022 End: 03-16-[address] ANJELICA GAMBINO Facility:[facility] Start: 02-09-2022 End: 02-10-[address] ANJELICA GAMBINO Facility:[facility] Start: 11-05-2021 End: 11-06-[address] ANJELICA GAMBINO Facility:[facility] Start: 10-05-2021 End: 10-06-[address] ANJELICA GAMBINO Facility:[facility] Start: 09-18-2021 End: 09-19-[address] ANJELICA GAMBINO Facility:[facility] Start: 09-08-2021 End: 09-09-[address] ANJELICA GAMBINO Facility:[facility] Start: 09-12-2017 End: 09-13-2017 Ambulatory FARA RICHARDSON [facility] Procedures Date Procedure Procedure Detail Performing Clinician Start: 09-12-2017 Screening mammograph y bi 2-view breast inc cad FARA FIGUEROAMagdalena Start: 09-12-2017 Dxa bone density jeanne dy 1/> sites axial skel FARA RICHARDSON Cholecystectomy Violet Dowlingab Comment on above: bile duct surgery Colonoscopy Violet Dowlingab Comment on above: 2012 normal Laser device (physical object) Violet Orderlord Comment on above: eye Plan of Treatment Date Care Activity Detail Author Start: 07-30-2024 ambulatory Ambulatory Facility:[facility] Vill[facility]ob[facility] Immunizations Immunization Date Immunization Notes Care Provider Fa cility NEGATED: Highlighted row has not occurred!12-01-2022 SARS-CoV-2 mRNA (tozinameran 5y-11y) vaccine Violet Dowlingab [facility] Payers Date Payer Category Payer Unknown [id number] 2014 Medicare [id number] 1957 Unknown [id number] 1950 Unknown [id number] 2.16.84 [id number] 1950 Unknown [id number] 2.16.84 0.1.240217.3.579.2.593 1950 Unknown [id number] 2.16.84 0.1.036769.3.579.2.593 1950 Unknown [id number] 2.16.84 0.1.959106.3.579.2.593 1950 Unknown [id number] 2.16.84 0.1.992123.3.579.2.593 1950 Unknown [id number] 2.16.84 0.1.024639.3.579.2.593 1950 Unknown [id number] 2.16.84 0.1.480280.3.579.2.593 1950 Unknown [id number] 2.16.84 0.1.866363.3.579.2.593 1950 Unknown [id number] 2.16.8 40.1.642931.3.579.2.727 1950 Unknown [id number] 2.16.8 40.1.649128.3.579.2.727 1950 Unknown [id number] 2.16.8 40.1.680285.3.579.2.727 1950 Unknown [id number] 2.16.8 40.1.663794.3.579.2.727 1950 Unknown [id number] 2.16.8 40.1.155099.3.579.2.727 1950 Unknown [id number] 2.16.8 40.1.456299.3.579.2.727 1950 Unknown [id number] 2.16.8 40.1.563059.3.579.2.727 1950 Unknown [id number] 2.16.8 40.1.897078.3.579.2.727 1950 Unknown [id number] 2.16.8 40.1.936659.3.579.2.727 1950 Unknown [id number] 2.16.840 .1.500531.3.579.2.1259 Unknown [id number] Social History Date Type Detail Facility Start: 05-11-2023 Tobacco smoking status Never s moked tobacco (finding) [facility] Tobacco smoking status Never [facility] Sex Assigned At Female [facility] Clinical Note 08-05-2022 Note Date & Type Note Facility 08-05-2022 Note PROCEDURE: XR FOOT L T MIN 3 VIEWS HISTORY: Pain in left foot after prolonged walking COMPARISON: None. FINDINGS: BONES:Small calcaneal plantar spur. Small ossification dorsal to the talonavicular joint which appears to be corticated and likely chronic. No appreciable fracture or dislocation. SOFT TISSUES:No visible soft tissue swelling. EFFUSION:None visible. OTHER: Negative. IMPRESSION: 1. Tiny calcaneal plantar spur of questionable clinical significance. 2. Tiny ossification dorsal to the talonavicular joint suspected to be chronic; small avulsion fractures felt less likely. Correlate for pain in this area. Electronically authenticated by: TAMIR CONLEY Date: 2022-08-04 22:03 [facility] Evaluation + Plan note Note Date & Type Note Facility Evaluation + Plan note Future Appointments Appointment Date:05/30/2023 02:00:00 PM Scheduled Provider: Location:[facility] Appointment Type: Medicare Wellness Subsequent Appointment Date:05/30/2023 02:40:00 PM Scheduled Provider:Job Alvarado MD Location:[facility] Appointment Type: Open Diagnostic Tests PendingUrine Culture 05/11/23 [facility] Hospital course Narrative Note Date & Type Note Facility Hospital course Narrative No data available for this section [facility] Hospital Discharge instructions Note Date & Type Note Facility Hospital Discharge instructions No data available for this section [facility] Progress note Note Date & Type Note Facility Progress note No data available for this section [facility] Summary Purpose Family History No Family History Records FoundNo Family History Records FoundNo Family History Records FoundNo Family History Records Found Advance Directives No Advanced Directives Records FoundNo Advanced Directives Records FoundNo Advanced Directives Records FoundNo Advanced Directives Records Found Additional Source Comments INFORMATION SOURCE (unrecogn ized section and content) DATE CREATED AUTHOR 02/13/2018 [facility] DATE CREATED AUTHOR AUTHOR'S ORGANIZ ATION 08/12/2022 [facility] DATE CREATED AUTHOR AUTHOR'S ORGANIZ ATION 07/09/2023 [facility] DATE CREATED AUTHOR AUTHOR'S ORGANIZ ATION 07/29/2023 [facility] EPIC Patient Care team informatio n (unrecognized section and content) Personnel Name: Job Alvarado MD Address: Address: [address] FOR RECORDS PERTAINING TO PATIENTS WHO ARE OR HAVE BEEN ENROLLED IN A CHEMICAL DEPENDENCY/SUBSTANCEABUSE PROGRAM, SOME INFORMATION MAY BE OMITTED. This clinical summary was aggregated from multiple sources. Caution should be exercised in using it in the provision of clinical care. This summary normalizes information from multiple sources, and as a consequence, information in this document may materially change the coding, format and clinical context of patient data. In addition, data may be omitted in some cases. CLINICAL DECISIONS SHOULD BE BASED ON THE PRIMARY CLINICAL RECORDS. [facility] [employer], [facility]. provides no warranty or guarantee of the accuracy or completeness of information in this document.
== END 2023-06-29 14:10 | disposition home or self-care (01) ==
LOC: RAD 14:10
PROVIDERS: PCP Family Medicine; Visit Provider Podiatrist Foot & Ankle Surgery
DX: M79.672 Pain in left foot (principal); S92.325K Nondisplaced fracture of second metatarsal bone, left foot, subsequent encounter for fracture with nonunion; S92.335D Nondisplaced fracture of third metatarsal bone, left foot, subsequent encounter for fracture with routine healing
CPT/HCPCS: 73630

== ENCOUNTER 2023-08-05 09:00 | Outpatient (OUT) | payer MEDICARE, SELFPAY ==
--- NOTE | 2023-08-05 09:05 | ECG_ITS ---
The [facility] Test Date: 2023-08-05 Pat Name: PAPITO HAYDEN Department: Room: - Gender: Female [employer]er: : 1950 Requested By: ARIEL BOUCHER Order Number: [id number] Reading MD: SAIGE STRICKLAND Measurements Intervals [place] Rate: 50 P: 59 TN: 206 QRS: 8 QRSD: 104 T: 29 QT: 432 QTc: 396 Interpretive Statements SINUS BRADYCARDIA POSSIBLE LEFT ATRIAL ENLARGEMENT [-0.1mV P WAVE IN V1/V2] No previous ECG available for comparison Electronically Signed On 08-07-2023 16:47:26 EST by SAIGE STRICKLAND
== END 2023-08-05 09:01 | disposition home or self-care (01) ==
LOC: PST 09:01
PROVIDERS: PCP Family Medicine; Visit Provider Obstetrics & Gynecology
DX: Z01.810 Encounter for preprocedural cardiovascular examination (principal); R93.89 Abnormal findings on diagnostic imaging of other specified body structures; N95.0 Postmenopausal bleeding
CPT/HCPCS: 93005

== ENCOUNTER 2023-08-09 09:49 | Outpatient (OUT) | payer MEDICARE, SELFPAY ==
--- NOTE | 2023-08-09 | XR_ITS ---
The [address] [address] Patient Name: PAPITO HAYDEN MRN: [id number] date: 1950 Sex: F Assigned Patient Location: [facility] Current Patient Location: [facility] Accession/Order Number: [id number] Exam Date: 08/09/2023 10:10 Report Date: 08/09/2023 12:28 At the request of: SUNG COPELAND Procedure: XR foot LT min 3V EXAM: XR foot LT min 3V HISTORY: LEFT FOOT PAIN COMPARISON: Left foot radiographs 06/29/2023 TECHNIQUE: AP, lateral, oblique radiographs of the foot labeled left FINDINGS: Again demonstrated is a nonunited fracture of the second metatarsal proximal diaphysis in unchanged alignment. No change in appearance from prior. Achilles and plantar calcaneal enthesophytes. Small osteophytes at the first metatarsal head. XR/XR foot LT min 3V IMPRESSION: 1. Nonunited second metatarsal fracture, unchanged. Electronically authenticated by: SANTOSH HECK Date: 08/09/2023 12:28
== END 2023-08-09 09:50 | disposition home or self-care (01) ==
LOC: RAD 09:49
PROVIDERS: PCP Family Medicine; Visit Provider Podiatrist Foot & Ankle Surgery
DX: M84.375A Stress fracture, left foot, initial encounter for fracture (principal)
CPT/HCPCS: 73630

== ENCOUNTER 2023-08-12 08:15 | Day surgery (SDC) | payer MEDICARE, SELFPAY ==
[2023-08-05 09:50] VITALS: BP 146/67; PULSE 62; RESP 14; TEMP 36.2; O2SAT 98; BMI 28.6
[2023-08-12] VITALS (11 sets, daily range): BP systolic 127–149; BP diastolic 52–73; PULSE 50–64; RESP 10–23; TEMP 36.1; O2SAT 96–100; BMI 28.5
--- OUTSIDE RECORDS SUMMARY | 2023-08-12 08:17 | XMS_ITS | CCD ---
Author Name Unknown Address [address] [place] [address] Organization [facility] Care Team Providers Care Cardiac Monitor Name Role Phone FARA RICHARDSON Unavailable Unavailable GAMBINO, ANJELICA Bergeron Unavailable Unavailable KARLYRICKFARA Unavailable Unavailable GAMBINO, ANJELICA Bergeron Unavailable Unavailable GAMBINO, DR ANJELICA Bergeron Primary [...] Care Unavailable KARASIK, DR CHAUDHARI Consulting Unavailable KARLYRICK, DR CHAUDHARI Attending Unavailable KARNAY, DR CHAUDHARI [...] Attending Unavailable KARNAY, DR CHAUDHARI Admitting Unavailable PRIMO, DR KVNG Mendoza Consulting Unavailable Job Alvarado. Primary Care Physician [phone] ARIEL DAS Attending Unavailable Violet Lauren Attending Unavailable Violet Lauren Admitting Unavailable Job Alvarado Attending Unavailable Job Alvarado Admitting Unavailable Job Alvarado Attending Unavailable Job Alvarado Attending Unavailable Job Alvarado Attending Unavailable Violet Lauren Attending Unavailable Job Alvarado Attending Unavailable Job Alvarado Attending Unavailable Job Alvarado Attending Unavailable Allergies Allergy Classification Reported Allergen(s) Allergy Type Date of Onset Reaction(s) Facility (2 sources) atorvastatin; Translations: [atorvastatin] Drug Allergy Unknown (qualifier value) [facility] (2 sources) HYDROmorphone; Translations: [hydromorphone] Drug Allergy Unknown (qualifier value) [facility] (2 sources) Pyrilamine; Translations: [pyrilamine] Drug Allergy Unknown (qualifier value) [facility] (1 source) No Known Medication Allergies; Translations: [No Known Medication Allergies] Propensity to adverse reactions (disorder) [facility] Repository Medications Current Medications Medication [...] BID, # 180 tab(s), Refills(s) 0, Pharmacy: [facility] [id number], 162, cm, 05/11/23 9:36:00 EDT, Height/Length Dosing, 74.9, kg, 05/11/23 9:36:00 EDT, Weight Dosing Start Date: 05/11/23 Status: Ordered meloxicam 15 mg oral tablet (1 source) Nonsteroidal Anti-inflammatory Drug Start: 02-27-2023 take 1 tablet by mouth once daily as needed meloxicam 15 mg Tab See Instructions, TAKE ONE TABLET BY MOUTH DAILY NEEDED, # 90 tab(s), Refills(s) 0, Pharmacy: [facility] [id number], 162.6, cm, 12/01/22 15:23:00 EDT, Height/Length Dosing, 76.5, kg, 12/01/22 15:23:00 EDT, Weight Dosing Start Date: 02/27/23 Status: Ordered rosuvastatin calcium 20 mg oral tablet (1 source) HMG-CoA Reductase Inhibitor Start: 02-27-2023 take 1 tablet by mouth once daily rosuvastatin 20 mg Tab See Instructions, TAKE ONE TABLET BY MOUTH DAILY, # 90 tab(s), Refills(s) 0, Pharmacy: [facility] [id number], 162.6, cm, 12/01/22 15:23:00 EDT, Height/Length Dosing, [...] Name Value Interpretation Reference Range Facil ity RAD - MISCon 08-10-2023 RAD - MISC [id number] 20 [id number]#1.0 0TIFF Normal [facility] Consultation Noteon 07-07-20 Consultation Note [id number] 10 [id number]#1.0 0TIFF Normal [facility] RAD - MISCon 07-07-2023 RAD - MISC [id number] 10 [id number]#1.0 0TIFF Normal [facility] Patient Logson 06-14-2023 Patient Logs [id number] 00 [id number]#1.0 0TIFF [facility] Physician Referralon 023 Physician Referral [id number] 02 [id number]#1. 00TIFF [facility] Nurse Consultation Noteon Nurse Consultation Note Reason [...] Recorded pneumococcal 23-valent vaccine 06/25/2008 Recorded Normal [facility] Outside Colonoscopyon 2022 Outside Colonoscopy [id number] 00 [id number]#1.0 0TIFF Normal [facility] Patient Logson 06-07-2023 Patient Logs [id number] 00 [id number]#1.0 0TIFF Normal [facility] Auth for Release of Medical Recordson 06-01-2023 Auth for Release of Medical Records [id number]#1.0 0TIFF [facility] Family Medicine Office/Clini c Noteon 06-01-2023 Family [...] More of the Symptoms Below : No LaurenLeidy gibson Marlene - 05/30/2023 14:34 EDT COVID-19 Vaccine : No Leidy Augilar Marlene - 05/30/2023 14:36 EDT Covid-19 External Testing : No *Verify Airborne, Droplet Precautions for MERS/COVID-19 : N/A *Verify Droplet, Contact Precautions for Ebola (Reference for CDC) : N/A Leidy Aguilar Marlene - 05/30/2023 14:34 EDT Summary Preferred Lab : [facility] Preferred Rad : [facility] Patient Counseled : Nutrition, Physical [...] lb Leidy Aguilar 05/30/2023 14:34 EDT Leidy Aguilra 05/30/2023 14:36 EDT Systolic Blood Pressure : [...] 11/29/2022 12:57 EDT - Britany Daniel LPN 2013 normal ; Last Reviewed Dt/Tm: 05/30/2023 14:35:01 [...] concerns: No. Comments: 05/30/2023 14:07 - Neftaly Wolfe: denies (Last Updated: 05/30/2023 14:35:10 EDT by Leidy [...] Year : No No Transport to Med Appts/Meetings/Work/Me ds/Necessities : No Afraid of Partner or Ex-partner [...] area free o (more content not included)... [facility] Comment on above: Result Comment: Elec tronically Signed By: Job Alvarado MD\.br\Date and Time Signed: 06/01/23 10:38 EDT\.br\Electronically Co-Signed By: Neftaly Wolfe\.br\Date and Time Co-Signed: 05/30/23 15:29 EDT Auth for Release of Medical Recordson 05-31-2023 Auth for Release of Medical Records [id number]#1.0 0TIFF [facility] Physician Referralon 023 Physician Referral [id number] 02 [id number]#1. 00TIFF [facility] Screenson 05-31-2023 Screens [id number]#1. 00TIFF [facility] Ambulatory Visit Summaryon 1 Ambulatory Visit Summary [...] Follow-Up Appointments Tuesday 9:00 AM EDT Where: [facility] Invalid Interpretation Code [address] [place] [address]- \.br\ Someone Will Contact You Regarding These Appointments\.br\ [facility] EDT, Hypertension [facility] Ambulatory Visit Summary ISAURA RIVERA :1950 Visit Date:05/30/2023 Ambulatory Visit Instructions Your Diagnosis Annual visit for general adult medical examination without abnormal findings Hyperlipidemia Hypertension BMI 28.0-28.9,adult Age-related osteoporosis without current pathological fracture Your Care Team Attending Physician - Job Alvarado MD. Primary Care Physician - Job Alvarado MD [...] Follow-Up Appointments Tuesday 9:00 AM EDT Where: [facility] Invalid Interpretation Code [address] [place] [address]- \.br\ Someone Will Contact You Regarding These Appointments\.br\ [facility] 15:02:00 EDT, Hypertension [facility] Ambulatory Visit Summary ISAURA RIVERA [...] Follow-Up Appointments Tuesday 9:00 AM EDT Where: [place] [address]- \.br\ Medications\.br\ What How Much When Why [...] pathological fracture\.br\ Chronic kidney disease, stage 3a\.br\ Hypercholesterole laura\.br\ Hyperlipidemia\.b r\ Hypertension\.br\ Hypertensive kidney disease with stage 3a chronic kidney disease\.br\ Postmenopause bleeding\.br\ Right sided abdominal pain\.br\ TIA (transient ischemic attack)\.br\ \.br\ [facility] Ambulatory Visit Summary ISAURA RIVERA Alonzo :1950 Visit Date:05/30/2023 Ambulatory Visit Instructions Your Diagnosis Annual visit for general adult medical examination without abnormal findings Hyperlipidemia Your Care Team Attending Physician - Job Alvarado MD. Primary Care Physician - Job Alvarado MD. [...] Follow-Up Appointments Tuesday 11:00 AM EST Where: [facility] Normal [facility] Family Medicine Office/Clini c Noteon 05-30-2023 Family Medicine Office/Clinic Note HPI Staff [...] a nurse visit in 2 weeks. Ordered: [facility] External Ambulatory Referral Medicare Subsequent Visit G0439 2. Hypertensive kidney disease with stage 3a chronic kidney disease (I12.9: Hypertensive chronic kidney disease with stage 1 through stage 4 chronic kidney disease, or unspecified chronic kidney disease) - Working to control Bps to protect the kidneys Ordered: [facility] External Ambulatory Referral 3. Chronic kidney disease, stage 3a (N18.31: Chronic kidney disease, stage 3a) - Will have the patient cut down on the NSAIDs to protect the kidneys Ordered: [facility] External Ambulatory Referral 4. Hypercholesterolemia (E78.00: Pure hypercholesterolemia, unspecified) - Continue on the statin Ordered: [facility] External Ambulatory Referral 5. Postmenopause bleeding (N95.0: Postmenopausal bleeding) - Follow up with Dr. Das Ordered: [facility] External Ambulatory Referral 6. Foot pain, [...] Daily, # 90 tab(s), Refills(s) 0, [facility] [id number], 162, cm, 05/30/23 14:36:00 EDT, Height/Length Dosing, 75.9, kg, 05/30/23 14:35:00 EDT, Weight Dosing losartan, See Instructions, Take 1 tab in am and 2 in pm, # 270 tab(s), Refills(s) 3, Pharmacy: [facility] [id number], 162.6, cm, 12/01/22 15:23:00 EDT, Height/Length Dosing, 76.5, kg, 12/01/22 15:23:00 EDT, Weight Dosing rosuvastatin, See Instructions, TAKE ONE TABLET BY MOUTH DAILY, # 90 tab(s), Refills(s) 0, [facility] [id number], 162, cm, 05/30/23 14:36:00 EDT, Height/Length Dosing, [...] immunization status assessed 1030F Lab Specimen Collect 36232 Lipid Panel Medication list documented in medical [...] Medications aspir (more content not included)... Normal [facility] Comment on above: Result Comment: Elec tronically Signed By: Christiano SHORT, Job Saldivar.br\Date and Time Signed: 05/30/23 15:10 EDT Lipid Panelon 05-30-2023 Cholesterol [Mass/Vol] 206 mg/dL High 120-200 [facility] Comment on above: Performed By: #### 2 093839 ####[facility] [address] [place] [address] Cholesterol in HDL [Mass/Vol] 61 mg/dL Invalid Interpretation Code [facility] Comment on above: Result Comment: HDL > or equal to 60 mg/dL: Low cardiovascular risk HDL < 40 mg/dL : High cardiovascular risk Performed By: #### 2 818879 ####[facility] [address] [place] [address] Cholesterol in LDL [Mass/Vol] 111 mg/dL Normal <=129 [facility] Comment on above: Performed By: #### 2 481372 ####[facility] [address] [place] [address] Cholesterol in VLDL [Mass/Vol] 35 mg/dL Normal 7-40 [facility] Comment on above: Performed By: #### 2 829739 ####[facility] [address] [place] [address] Triglyceride [Mass/Vol] 177 mg/dL High <=149 [facility] Comment on above: Performed By: #### 2 466438 ####[facility] [place] [address] Patient Education 05-30-20 Patient Education Caregiving Fall Prevention in [...] night-lights. ? Place frequently used items in ruub-gj-lnyge places. Lower the shelves around your home [...] the way. ? Do not use floor irish or wax that makes floors slippery. If [...] include working with a physical therapist or new product trainer to improve your strength, balance, and endurance. Where to find more information ? Centers for Disease Control and Prevention, STEADI: www.cdc.gov ? National [place] on Aging: www.brandy.nih.gov Contact a health care [...] health ca (more content not included)... Normal [facility] Pre-Visit Planningon 023 Pre-Visit Planning - From: Benita MENJIVAR, Daly To: Christiano SHORT, Job Harvey; Sent: 05/27/2023 13:37:55 EDT Subject: Pre-Visit Planning Due Date/Time: 05/27/2023 13:37:00 EDT Caller Name: ISAURA RIVERA; Caller Number: H , M Sd Dr. Alvarado, *Based on your response below, [...] feel free to contact me at extension [phone]. Thank you! ARLENE Limon, RN, CCM, CCDS, CCDS-O From: Christiano SHORT, Job Harvey To: Benita MENJIVAR, Daly; Sent: 05/30/2023 13:07:52 EDT Subject: RE: Pre-Visit Planning Caller Name: CATRACHO ISAURA Rosado; Caller Number: Adrian , M Please add 3A Normal [address] [place] [address] C Urineon 05-13-2023 Bacteria identified Cx Nom (U) Microbiology PROCEDURE: Urine Culture [R1] SOURCE: U CleanCatch BODY SITE: COLLECTED DATE/TIME: 05/11/2023 12:05 EDT RECEIVED DATE/TIME: 05/11/2023 18:38 EDT START DATE/TIME: 05/11/2023 19:05 EDT FREE TEXT SOURCE: Leonidas DISABILITY INSURANCE CLAIM EXAMINER, Violet Rosado Leonidas DISABILITY INSURANCE CLAIM EXAMINER, Violet L FINAL REPORTS Final Report [] Verified Date/Time: 05/13/2023 10:07 EDT <10,000 cfu/ml Mixed skin contaminants Performing Locations R1: This test was performed at: [facility], [address] [place] [address], [facility]- , , [facility] Comment on above: Performed By: #### 2 008519, [id number] ####[facility] [address] [place] [address] RAD - Ultrasound Reporton RAD - Ultrasound Report [id number]#1.0 0CD:127 Normal [facility] RAD - Ultrasound Report [id number]#1.0 0CD:127 Normal [facility] Ambulatory Visit Summaryon 0 05-11-2023 Ambulatory Visit Summary ISAURA RIVERA :1950 Visit Date:05/11/2023 Ambulatory Visit Instructions Your Diagnosis BMI 28.0-28.9,adult Non-smoker Right sided abdominal pain Postmenopause bleeding Your Care Team Attending Physician - Leonidas STORM, Violet Rosado Primary Care Physician - Job Alvarado MD [...] Appointments Tuesday 2:00 PM EDT With: Where: [place] [id number]- \.br\ Medications\.br\ What How Much When Instructions\.br\ [...] for.\.br\ Age-related osteoporosis without current pathological fracture\.br\ Hypercholesterole laura\.br\ Hyperlipidemia\.b r\ Hypertension\.br\ Postmenopause bleeding\.br\ Right sided abdominal pain\.br\ TIA (transient ischemic attack)\.br\ \.br\ [facility] Amylaseon 05-11-2023 Amylase [Catalytic activity/Vol] 74 U/L Normal 25-157 [facility] Comment on above: Performed By: #### 2 134558, 2506969, 5048001, 1274846, 2641241, 85256380 ####[facility] [address] [place] [address] Auto Diffon 05-11-2023 Basophils/100 WBC (Bld) 0.8 % Normal 0.0-2.0 [facility] Comment on above: Order Comment: Order Added by Discern Expert. Performed By: #### 2 710682, 8617574, 2624991, 3635858, 6890010, 41727079 ####[address] [address] Basophils/Leukocyte s Auto (Bld) [Pure # fraction] 0.0 E9/L Normal 0.0-0.2 [facility] Comment on above: Order Comment: Order Added by Discern Expert. Performed By: #### 2 071501, 0278361, 1105999, 6464008, 0109196, 17291518 ####[facility] [address] [place] [address] Eosinophils/100 WBC (Bld) 5.2 % Normal 0.0-8.0 [facility] Comment on above: Order Comment: Order Added by Discern Expert. Performed By: #### 2 939027, 4714276, 8864663, 7834138, 7087387, 79641481 ####[facility] [address] [place] [address] Eosinophils/Leukocy ambrosio Auto (Bld) [Pure # fraction] 0.3 E9/L Normal 0.0-0.5 [facility] Comment on above: Order Comment: Order Added by Discern Expert. Performed By: #### 2 815114, 1554740, 9902473, 3108033, 6885568, 93264983 ####[place] [address] [place] [address] Lymphocytes/100 WBC (Bld) 31.3 % Normal 14.0-50.0 [facility] Comment on above: Order Comment: Order Added by Discern Expert. Performed By: #### 2 752202, 4246702, 4543005, 6140029, 7050680, 93093800 ####[address] [address] Lymphocytes/Leukocy ambrosio Auto (Bld) [Pure # fraction] 1.8 E9/L Normal 1.0-4.0 [facility] Comment on above: Order Comment: Order Added by Discern Expert. Performed By: #### 2 733960, 0199360, 4772185, 3715841, 5323985, 47156051 ####[address] [address] Monocytes/100 WBC (Bld) 7.8 % Normal 4.0-14.0 [facility] Comment on above: Order Comment: Order Added by Discern Expert. Performed By: #### 2 827781, 0874492, 9056277, 5516645, 7819947, 48052074 ####[place] [place] [address] Monocytes/Leukocyte s Auto (Bld) [Pure # fraction] 0.4 E9/L Normal 0.2-1.0 [facility] Comment on above: Order Comment: Order Added by Discern Expert. Performed By: #### 2 147077, 7688235, 8652207, 7575862, 7601045, 53801597 ####[place] [address] [place] [address] Neutrophils/100 WBC (Bld) 54.9 % Normal 36.0-75.0 [facility] Comment on above: Order Comment: Order Added by Discern Expert. Performed By: #### 2 152764, 7870286, 4189891, 1046591, 4813594, 41801611 ####[facility] [address] [place] [address] Neutrophils/Leukocy ambrosio Auto (Bld) [Pure # fraction] 3.1 E9/L Normal 2.0-7.5 [facility] Comment on above: Order Comment: Order Added by Discern Expert. Performed By: #### 2 672087, 9769842, 2668635, 8000817, 8997221, 85325394 ####[address] [address] CBC w/ Auto Diffon Erythrocyte distribution width (RBC) [Ratio] 12.9 % Normal 10.9-14.2 [facility] Comment on above: Performed By: #### 2 812183, 8367359, 4398063, 5605439, 2421023, 48930779 ####[address] [address] Hematocrit (Bld) [Volume fraction] 34.9 % Normal 34.0-46.0 [facility] Comment on above: Performed By: #### 2 578639, 6909177, 8742671, 6336684, 7109822, 78785046 ####[address] [address] Hemoglobin (Bld) [Mass/Vol] 11.8 g/dL Low 12.0-16.0 [facility] Comment on above: Performed By: #### 2 152421, 1439964, 7054816, 9399742, 4421500, 02108807 ####[address] [address] MCH (RBC) [Entitic mass] 32.6 pg Normal 27.0-34.0 [facility] Comment on above: Performed By: #### 2 052806, 0113840, 4729953, 6389348, 0996627, 77014041 ####[place] [address] [place] [address] MCHC (RBC) [Mass/Vol] 33.9 g/dL Normal 31.4-36.0 [facility] Comment on above: Performed By: #### 2 879410, 4351241, 9490463, 2577772, 9169576, 74008695 ####[address] [address] MCV (RBC) [Entitic vol] 96.3 fL Normal 80.0-100.0 [facility] Comment on above: Performed By: #### 2 371543, 1255480, 1651301, 9844430, 5445653, 31470133 ####[address] [address] Platelet mean volume (Bld) [Entitic vol] 8.2 fL Normal 6.4-10.8 [facility] Comment on above: Performed By: #### 2 461570, 4273533, 3886639, 7594977, 8322902, 54659083 ####[address] [address] Platelets (Bld) [#/Vol] 275.0 E9/L Normal 150.0-500.0 [facility] Comment on above: Performed By: #### 2 106552, 4096481, 2235508, 4111089, 0742486, 47508809 ####[address] [address] RBC (Bld) [#/Vol] 3.6 E12/L Low 4.3-5.9 [facility] Comment on above: Performed By: #### 2 243030, 5770798, 2810166, 6465600, 2835459, 32144968 ####[address] [address] WBC corrected for nucl RBC Auto (Bld) [#/Vol] 5.6 E9/L Normal 4.0-11.0 [facility] Comment on above: Performed By: #### 2 526450, 2593180, 9823230, 0948872, 2499661, 07462463 ####[facility] [address] [place] [address] CHEMISTRYOrdered By: SYSTEM SYSTEM on 05-11-2023 Albumin [...] 10 mmol/L Normal 6 - 16 mEq/L [facility] Remisol AST [Catalytic activity/Vol] 23 [iU]/d Normal 5 - 43 Int._Unit/L [facility] Remisol Bilirubin [Mass/Vol] 0.6 mg/dL Normal 0.0 - 1.1 mg/dL [facility] Remisol Calcium [Mass/Vol] 9.5 mg/dL Normal 8.9 - 11.1 mg/dL [facility] Remisol Chloride [Moles/Vol] 108 mmol/L Normal 101 - 111 mmol/L [facility] Remisol CO2 [Moles/Vol] 27 mmol/L Normal 21 - 31 mmol/L [facility] Remisol Creatinine [Mass/Vol] 1.3 mg/dL Normal 0.5 - 1.3 mg/dL [facility] Remisol GFR/1.73 sq M.predicted among non-blacks MDRD (S/P/Bld) [Vol rate/Area] 44 mL/min/1.73 m2 Low >=59mL/min/1.73 m2 [facility] Chem S Globulin (S) [Mass/Vol] 3.2 g/dL Normal 1.4 - 4.0 gm/dL [facility] Remisol Glucose [Mass/Vol] 93 mg/dL Normal 55 - 199 mg/dL [facility] Remisol Lipase [Catalytic activity/Vol] 46 U/L Normal 13 - 58 unit/L [facility] Remisol Potassium [Moles/Vol] 4.3 mmol/L Normal 3.5 - 5.3 mmol/L [facility] Remisol Protein [Mass/Vol] 7.5 g/dL Normal 6.0 - 7.8 gm/dL [facility] Remisol Sodium [Moles/Vol] 141 mmol/L Normal 135 - 145 mmol/L [facility] Remisol Urea nitrogen [Mass/Vol] 21 mg/dL Normal 5 - 21 mg/dL [facility] Remisol Urea nitrogen/Creatinine [Mass ratio] 16 mg/mg Normal 10 - [facility] Remisol CMPon 05-11-2023 Albumin [Mass/Vol] 4.3 g/dL Normal 3.3-5.0 [facility] Comment on above: Performed By: #### 2 947952, 1450455, 4312089, 9960717, 3679718, 51369189 ####[facility] [address] [place] [address] Albumin/Globulin (S) [Mass conc ratio] 1.3 Normal 1.1-2.2 [facility] Comment on above: Performed By: #### 2 513920, 1450529, 4187175, 4268642, 5177105, 66852522 ####[facility] [address] [place] [address] ALP [Catalytic activity/Vol] 46 Int._Unit/L Normal 21-98 [facility] Comment on above: Performed By: #### 2 374202, 3834450, 3384034, 0381460, 8872863, 82509888 ####[facility] [address] [place] [address] ALT No additional P-5'-P [Catalytic activity/Vol] 16 Int._Unit/L Normal 6-46 [facility] Comment on above: Performed By: #### 2 411742, 4487520, 9160435, 6447676, 8344516, 26635908 ####[facility] [address] [place] [address] Anion gap [Moles/Vol] 10 mmol/L Normal 6-16 [facility] Comment on above: Performed By: #### 2 135235, 2459393, 7069807, 2151492, 7859689, 36585894 ####[facility] [address] [place] [address] AST [Catalytic activity/Vol] 23 Int._Unit/L Normal 5-43 [facility] Comment on above: Performed By: #### 2 346178, 8673636, 8342354, 9500312, 9785056, 51163988 ####[facility] [address] [place] [address] Bilirubin [Mass/Vol] 0.6 mg/dL Normal 0.0-1.1 [facility] Comment on above: Performed By: #### 2 845608, 4997474, 9378951, 1570260, 9471419, 75848678 ####[facility] [address] [place] [address] Calcium [Mass/Vol] 9.5 mg/dL Normal 8.9-11.1 [facility] Comment on above: Performed By: #### 2 494745, 4697202, 0293668, 5624669, 1704456, 14993122 ####[facility] [address] [place] [address] Chloride [Moles/Vol] 108 mmol/L Normal 101-111 [facility] Comment on above: Performed By: #### 2 290814, 7551854, 0343642, 9383498, 9360556, 80140742 ####[facility] [address] [place] [address] CO2 [Moles/Vol] 27 mmol/L Normal 21-31 [facility] Comment on above: Performed By: #### 2 750084, 7426318, 5192447, 1136904, 9247483, 80430982 ####[facility] [address] [place] [address] Creatinine [Mass/Vol] 1.3 mg/dL Normal 0.5-1.3 [facility] Comment on above: Performed By: #### 2 313357, 9047221, 4421472, 4102372, 5938340, 86338756 ####[facility] [address] [place] [address] Globulin (S) [Mass/Vol] 3.2 g/dL Normal 1.4-4.0 [facility] Comment on above: Performed By: #### 2 700893, 9378760, 5953173, 9275512, 4590924, [id number] ####[facility] [address] [place] [address] Glucose [Mass/Vol] 93 mg/dL Normal 55-199 [facility] Comment on above: Result Comment: If t his glucose result represents a fasting glucose, interpretation should refer to the following reference range: 55-99 mg/dL Performed By: #### 2 517418, 7633401, 1680774, 4478097, 7074279, 78429559 ####[facility] [address] [place] [address] Potassium [Moles/Vol] 4.3 mmol/L Normal 3.5-5.3 [facility] Comment on above: Performed By: #### 2 061657, 4217966, 6147510, 0349231, 1326682, 59091842 ####[facility] [address] [place] [address] Protein [Mass/Vol] 7.5 g/dL Normal 6.0-7.8 [facility] Comment on above: Performed By: #### 2 184030, 7482792, 8005662, 9681316, 4986154, [id number] ####[facility] [address] [place] [address] Sodium [Moles/Vol] 141 mmol/L Normal 135-145 [facility] Comment on above: Performed By: #### 2 061454, 4356598, 6692135, 6297496, 6538994, 85905526 ####[facility] [address] [place] [address] Urea nitrogen [Mass/Vol] 21 mg/dL Normal 5-21 [facility] Comment on above: Performed By: #### 2 677747, 1566747, 0450703, 2973142, 5371544, 23986767 ####[facility] [address] [place] [address] Urea nitrogen/Creatinine [Mass ratio] 16 No Units Normal 10-20 [facility] Comment on above: Performed By: #### 2 735406, 5602125, 3917110, 9200008, 9633842, 06938119 ####[facility] [address] [place] [address] Family Medicine Office/Clini c Noteon 05-11-2023 Family [...] BID, # 180 tab(s), Refills(s) 0, Pharmacy: [facility] [id number], 162, cm, 05/11/23 9:36:00 EDT, Height/Length Dosing, [...] BID, # 180 tab(s), Refills(s) 0, Pharmacy: [facility] [id number], 162, cm, 05/11/23 9:36:00 EDT, Height/Length Dosing, [...] BID, # 180 tab(s), Refills(s) 0, [facility] [id number], 162, cm, 05/11/23 9:36:00 EDT, Height/Length Dosing, 74.9, kg, 05/11/23 9:36:00 EDT, Weight Dosing Amylase Level CBC w/ Auto Diff Comprehensive Metabolic Panel Lipase Level UA With Cult Reflex 5. Non-smoker (Z78.9: Other specified health status) continue not smoking Ordered: losartan, 25 mg = 1 tab(s), Oral, BID, # 180 tab(s), Refills(s) 0, [facility] [id number], 162, cm, 05/11/23 9:36:00 EDT, Height/Length Dosing, [...] Instructions Allergies (more content not included)... Normal [facility] Comment on above: Result Comment: Elec tronically Signed By: Violet Allen\.br\Date and Time Signed: 05/11/23 12:51 EDT HEMATOLOGYOrdered By: SYSTEM SYSTEM on 05-11-2023 Basophils/100 WBC (Bld) 0.8 % Normal 0.0 - 2.0 % [facility] HemeAutoSS Basophils/Leukocyte s Auto (Bld) [Pure # fraction] 0.0 E9/L Normal 0.0 - 0.2 E9/L [facility]eAuto[facility] Eosinophils/100 WBC (Bld) 5.2 % Normal 0.0 - 8.0 % [facility]eAuto[facility] Eosinophils/Leukocy ambrosio Auto (Bld) [Pure # fraction] 0.3 E9/L Normal 0.0 - 0.5 E9/L [facility] Lymphocytes/100 WBC (Bld) 31.3 % Normal 14.0 - 50.0 % [facility]eAuto[facility] Lymphocytes/Leukocy ambrosio Auto (Bld) [Pure # fraction] 1.8 E9/L Normal 1.0 - 4.0 E9/L [facility] Monocytes/100 WBC (Bld) 7.8 % Normal 4.0 - 14.0 % [facility]eAuto[facility] Monocytes/Leukocyte s Auto (Bld) [Pure # fraction] 0.4 E9/L Normal 0.2 - 1.0 E9/L [facility] Neutrophils/100 WBC (Bld) 54.9 % Normal 36.0 - 75.0 % [facility]eAuto[facility] Neutrophils/Leukocy ambrosio Auto (Bld) [Pure # fraction] 3.1 E9/L Normal 2.0 - 7.5 E9/L [facility] HemeAutoSS HEMATOLOGYOrdered By: Nato Cheung on 05-11-2023 Erythrocyte distribution width (RBC) [Ratio] 12.9 % Normal 10.9 - 14.2 % [facility] Hematocrit (Bld) [Volume fraction] 34.9 % Normal 34.0 - 46.0 % [facility] Hemoglobin (Bld) [Mass/Vol] 11.8 g/dL Low 12.0 - 16.0 gm/dL [facility] MCH (RBC) [Entitic mass] 32.6 pg Normal 27.0 - 34.0 pg [facility] MCHC (RBC) [Mass/Vol] 33.9 g/dL Normal 31.4 - 36.0 gm/dL [facility] MCV (RBC) [Entitic vol] 96.3 fL Normal 80.0 - 100.0 fL [facility] Platelet mean volume (Bld) [Entitic vol] 8.2 fL Normal 6.4 - 10.8 fL [facility] HemeAutoSS Platelets (Bld) [#/Vol] 275.0 E9/L Normal 150.0 - 500.0 E9/L [facility] HemeAutoSS RBC (Bld) [#/Vol] 3.6 E12/L Low 4.3 - 5.9 E12/L [facility] HemeAutoSS WBC corrected for nucl RBC Auto (Bld) [#/Vol] 5.6 E9/L Normal 4.0 - 11.0 E9/L [facility]eAuto[facility] Lipase Levelon 05-11-2023 Lipase [Catalytic activity/Vol] 46 U/L Normal 13-58 [facility] Comment on above: Performed By: #### 2 273725, 2924867, 4591710, 3736166, 6584231, 23006744 ####[facility] [address] [place] [address] UA With Cult Reflexon 2022 Bacteria LM Ql (Urine sed) TRACE Normal Trace [facility] Comment on above: Performed By: #### 2 425661, [id number] ####[facility] [address] [place] [address] Bilirubin Ql (U) Negative Normal Negative [facility] Comment on above: Performed By: #### 2 663433, 58436345 ####[address] [address] Clarity (U) CLEAR Normal Clear [facility] Comment on above: Performed By: #### 2 552995, [id number] ####[facility] [address] [place] [address] Color (U) YELLOW Normal Yellow [facility] Comment on above: Performed By: #### 2 780973, 09519481 ####[facility] [address] [place] [address] Crystals LM Ql (Urine sed) Present Normal [facility] Comment on above: Performed By: #### 2 040428, 46565247 ####[facility] [address] [place] [address] Epithelial cells.squamous LM.HPF (Urine sed) [#/Area] 5-8 Normal 0-2 [facility] Comment on above: Performed By: #### 2 043317, 50795209 ####[facility] [address] [place] [address] Glucose Test strip (U) [Mass/Vol] Negative Normal Negative [facility] Comment on above: Performed By: #### 2 901627, 96123168 ####[facility] [address] [place] [address] Hemoglobin Ql (U) TRACE Abnormal Negative [facility] Comment on above: Performed By: #### 2 605290, 93753675 ####[facility] [address] [place] [address] Ketones (U) [Mass/Vol] Negative Normal Negative [facility] Comment on above: Performed By: #### 2 038526, 50525862 ####[address] [address] Apison.plasma/Lith ium.RBC (Bld) [Mass ratio] 0-3 Normal 0-3 [facility] Comment on above: Performed By: #### 2 759293, 16097949 ####[facility] [address] [place] [address] Mucus Ql (Urine sed) 2+ Normal [facility] Comment on above: Performed By: #### 2 784781, 65339545 ####[facility] [address] [place] [address] Nitrite Ql (U) Negative Normal Negative [facility] Comment on above: Performed By: #### 2 327897, 76971057 ####[facility] [address] [place] [address] pH (U) 7.0 [pH] Invalid Interpretation Code 5.0-9.0 [facility] Comment on above: Performed By: #### 2 565502, 25829051 ####[facility] [address] [place] [address] Protein (U) [Mass/Vol] Negative Normal Negative [facility] Comment on above: Performed By: #### 2 962411, 02756468 ####[place] [address] Specific gravity (U) [Rel density] 1.010 Invalid Interpretation Code 1.005-1.030 [facility] Comment on above: Performed By: #### 2 926970, 38274451 ####[place] [address] Type of Urine collection method Clean Catch Normal [facility] Comment on above: Performed By: #### 2 139189, 80306294 ####[place] [address] Urobilinogen Qn (U) 0.2 {Leon'U}/dL Normal 0.0-1.0 [facility] Comment on above: Performed By: #### 2 417096, 59919320 ####[place] [address] WBC Auto Ql (U) 1+ Abnormal Negative [facility] Comment on above: Performed By: #### 2 708665, 52592041 ####[place] [address] WBC LM.HPF (Urine sed) [#/Area] 0-5 Normal 0-5 [facility] Comment on above: Performed By: #### 2 582140, 31388857 ####[place] [address] URINALYSISOrdered By: Dinah murray on 05-11-2023 Bacteria LM Ql (Urine sed) Trace /HPF Normal Trace/HPF [facility] UA Auto SS Bilirubin Ql (U) Negative (05/11/23 12:05 PM) Normal Negative [facility] UA Auto SS Clarity (U) Clear (05/11/23 12:05 PM) Normal Clear FT UA Auto SS Color (U) Yellow (05/11/23 12:05 PM) Normal Yellow [facility] UA Auto SS Crystals LM Ql (Urine sed) Present (05/11/23 12:05 PM) Normal [facility] UA Auto SS Epithelial cells.squamous LM.HPF (Urine sed) [#/Area] 5-8 /HPF Normal 0-2/HPF [facility] UA Auto SS Glucose Test strip (U) [Mass/Vol] Negative (05/11/23 12:05 PM) Normal Negative [facility] UA Auto SS Hemoglobin Ql (U) Trace *ABN* (05/11/23 12:05 PM) Invalid Interpretation Code Negative [facility] UA Auto SS Ketones (U) [Mass/Vol] Negative (05/11/23 12:05 PM) Normal Negative [facility] UA Auto SS Apison.plasma/Lith ium.RBC (Bld) [Mass ratio] 0-3 /HPF Normal 0-3/HPF [facility] UA Auto SS Mucus Ql (Urine sed) 2+ (05/11/23 12:05 PM) Normal [facility] UA Auto SS Nitrite Ql (U) Negative (05/11/23 12:05 PM) Normal Negative [facility] UA Auto SS pH (U) 7.0 *NA* (05/11/23 12:05 PM) Invalid Interpretation Code 5.0 - 9.0 [facility] UA Auto SS Protein (U) [Mass/Vol] Negative (05/11/23 12:05 PM) Normal Negative [facility] UA Auto SS Specific gravity (U) [Rel density] 1.010 *NA* (05/11/23 12:05 PM) Invalid Interpretation Code 1.005 - 1.030 [facility] UA Auto SS UA Spec Desc Clean Catch (05/11/23 12:05 PM) Normal [facility] UA Auto SS Urobilinogen Qn (U) 0.3912730 {Leon'U}/dL Normal 0.0 - 1.0 EU/dL [facility] UA Auto SS WBC Auto Ql (U) 1+ *ABN* (05/11/23 12:05 PM) Invalid Interpretation Code Negative [facility] UA Auto SS WBC LM.HPF (Urine sed) [#/Area] 0-5 /HPF Normal 0-5/HPF [facility] UA Auto SS eGFRon 05-11-2023 GFR/1.73 sq M.predicted among non-blacks MDRD (S/P/Bld) [Vol rate/Area] 44 mL/min/1.73 m2 Low >=59 [facility] Comment on above: Order Comment: Order added by Discern Expert. Result Comment: Correspondence Section Supervisor sommer kidney disease could be indicated at eGFR's of less than 60 mL/min/1.73m2. Kidney failure is indicated at less than 15 mL/min/1.73m2. Performed By: #### 2 868116, 2546531, 8170928, 2650463, 0754547, 10713384 ####[facility] [address] [place] [address] Outside Mammographyon 2022 Outside Mammography [id number]#1.0 0CD:127 Normal [facility] Consultation Noteon 02-02-20 Consultation Note [id number]#1.0 0CD:127 Normal [facility] Family Medicine Office/Clini c Noteon [...] were not effective. The patient saw her tailor's aide for her annual checkup and was diagnosed with glaucoma. She underwent laser treatment of bilateral eyes. She has a follow-up appointment with him next week. The patient states that for the last 3 years, she has been seeing double out of her left eye. Her tailor's aide informed her that it was ghost shadows. [...] Anthony Humphrey to record this visit. YAA internet security specialist and provider reviewed before signing. YAA: [...] mg Tab, (more content not included)... Normal [facility] Comment on above: Result Comment: Elec tronically Signed By: Job Alvarado MD\.br\Date and Time Signed: 12/02/22 13:01 EDT\.br\Electronically Co-Signed By: Angeline Wong\.br\Date and Time Co-Signed: 12/01/22 16:53 EDT Patient [facility] 11-15-2022 Patient Logs [id number]#1.00 CD:127 Normal [facility] Patient [place] 11-03-2022 Patient Logs [id number]#1.0 0CD:127 Normal [facility] CULTURE URINEon 07-06-2022 CULTURE URINE Culture Observations : LIGHT GROWTH OF MIXED GENITAL NAN. NO POTENTIAL PATHOGENS SEEN. Normal [facility] Comment on above: Performed By: #### U RCX #### [facility] [address] [address] [address] Melchor Brock UA (CLEAN/CATCH) MICROSCOPIC IF INDICATEon 07-06-2022 Bilirubin Ql (U) Negative Normal NEGATIVE [facility] Comment on above: Performed By: #### U MICRO, UARMICR #### [facility] [address] [place] [address] Dr. Melchor Brock Clarity (U) CLEAR Normal CLEAR [facility] Comment on above: Performed By: #### U MICRO, UARMICR #### [facility] [address] [place] [address] Dr. Melchor Brock Color (U) LT. YELLOW Normal YELLOW [facility] Comment on above: Performed By: #### U MICRO, UARMICR #### [facility] [address] [place] [address] Dr. Melchor Brock Glucose Ql (U) Negative Normal NEGATIVE [facility] Comment on above: Performed By: #### U MICRO, UARMICR #### [facility] [address] [place] [address] Dr. Melchor Brock Hemoglobin Ql (U) TRACE-INTACT Abnormal NEGATIVE [facility] Comment on above: Performed By: #### U MICRO, UARMICR #### [facility] [address] [place] [address] Dr. Melchor Brock Ketones Ql (U) Negative Normal NEGATIVE [facility] Comment on above: Performed By: #### U MICRO, UARMICR #### [facility] [address] [place] [address] Dr. Melchor Brock LEUKOCYTES TRACE Abnormal NEGATIVE [facility] Comment on above: Performed By: #### U MICRO, UARMICR #### [facility] [address] [place] [address] Dr. Melchor Brock Nitrite Ql (U) Negative Normal NEGATIVE [facility] Comment on above: Performed By: #### U MICRO, UARMICR #### [facility] [address] [place] [address] Dr. Melchor Brock pH (U) 6.0 [pH] Normal 5-9 [facility] Comment on above: Performed By: #### U MICRO, UARMICR #### [facility] [address] [place] [address] Dr. Melchor Brock SPEC GRAVITY 1.020 Normal 1.005-<=1.025 [facility] Comment on above: Performed By: #### U MICRO, UARMICR #### [facility] [address] [place] [address] Dr. Melchor Brock UA PROTEIN Negative Normal NEGATIVE/ TRACE [facility] Comment on above: Performed By: #### U MICRO, UARMICR #### [facility] [address] [place] [address] Dr. Melchor Brock UR MICRO IND INDICATED Normal [facility] Comment on above: Performed By: #### U MICRO, UARMICR #### [facility] [address] [place] [address] Dr. Melchor Brock Urobilinogen Qn (U) 0.2 {Leon'U}/dL Normal 0.2 - 1. 0 [facility] Comment on above: Performed By: #### U MICRO, UARMICR #### [facility] [address] [place] [address] Dr. Melchor Brock URINE MICROSCOPIC ONLYon BACTERIA NONE SEEN Normal NONE SEEN [facility] Comment on above: Performed By: #### G SHON, LIPID #### [facility] [address] [place] [address] Dr. Melchor Brock Bacteria identified Cx Nom (U) CX ALREADY ORDERED Normal [facility] Comment on above: Performed By: #### G SHON, LIPID #### [facility] [address] [place] [address] Dr. Melchor Brock CAST NONE SEEN Normal NONE SEEN [facility] Comment on above: Performed By: #### G SHON, LIPID #### [facility] [address] [place] [address] Dr. Melchor Brock Crystals LM Nom (Urine sed) NONE SEEN Normal NONE SEEN [facility] Comment on above: Performed By: #### G SHON, LIPID #### [facility] [address] [address] [address] Melchor Brock Epithelial cells LM Ql (Urine sed) RARE Normal NONE SEEN /RARE [facility] Comment on above: Performed By: #### G SHON, LIPID #### [facility] [address] [address] [address] Melchor Brock MUCOUS NONE SEEN Normal NONE SEEN [facility] Comment on above: Performed By: #### G SHON, LIPID #### [facility] [address] [address] [address] Melchor Brock RBC 0-2 Normal 0-2 [facility] Comment on above: Performed By: #### G SHON, LIPID #### [facility] [address] [address] [address] Melchor Brock WBC 0-2 Abnormal NONE SEEN [facility] Comment on above: Performed By: #### G SHON, LIPID #### [facility] [address] [address] [address] Melchor Brock MG MAMM SCREEN 3D SARAHI CADon 03-15-2022 MG MAMM SCREEN 3D SARAHI CAD Patient: ISAURA RIVERA Exam Date: 03/15/2022 : 1950 Gender:F Ordering : DR FARA RICHARDSON . Admission #: [id number] Family : Order #: [id number] CLICK HERE TO VIEW EXAM RADIOLOGY REPORT [...] lung cancer at age 72. LOCATION: [facility] BREAST COMPOSITION: Heterogeneously dense,which may obscure [...] Conley M.D. on 03/15/2022 at 11:41 Normal [facility] GLUCOSE BLOODon 02-09-2022 Glucose [Mass/Vol] 99 mg/dL Normal 74-106 [facility] Comment on above: Performed By: #### G SHON, LIPID #### [facility] [address] [place] [address] Dr. Melhcor Brock LIPID PROFILEon 02-09-2022 CHOL-HDL RATIO NORM SEE BELOW Normal [facility] Comment on above: Result Comment: 3.3 - 4.4 LOW RISK 4.4 - 7.1 AVERAGE RISK 7.1 - 11.0 MODERATE RISK >11.0 HIGH RISK Performed By: #### G SHON, LIPID #### [facility] [address] [place] [address] Dr. Melchor Brock Cholesterol [Mass/Vol] 202 mg/dL Critically high <=200 [facility] Comment on above: Performed By: #### G SHON, LIPID #### [facility] [address] [address] [address] Melchor Brock Cholesterol in HDL [Mass/Vol] 56 mg/dL Normal 40-60 [facility] Comment on above: Performed By: #### G SHON, LIPID #### [facility] [address] [address] [address] Melchor Borck Cholesterol in LDL [Mass/Vol] 112.6 mg/dL Normal [facility] Comment on above: Performed By: #### G SHON, LIPID #### [facility] [address] [place] [address] Dr. Melchor Brock Cholesterol.total/C holesterol in HDL [Mass ratio] 3.6 {ratio} Normal [facility] Comment on above: Performed By: #### G SHON, LIPID #### [facility] [address] [place] [address] Dr. Melchor Brock HDL NORMAL > or = 60 mg/dl - LO W CARDIOVASCULAR RISK <40 mg/dl - HIGH CARDIOVASCULAR RISK Normal [facility] Comment on above: Performed By: #### G SHON, LIPID #### [facility] [address] [place] [address] Dr. Melchor Brock LDL CALC NORMAL SEE BELOW Normal [facility] Comment on above: Result Comment: <100 mg/dl OPTIMAL 100 - 129 mg/dl NEAR OR ABOVE OPTIMAL 130 - 159 mg/dl BORDERLINE HIGH 160 - 189 mg/dl HIGH >190 mg/dl VERY HIGH Performed By: #### G SHON, LIPID #### [facility] [address] [address] [address] Melchor Brock Triglyceride [Mass/Vol] 167 mg/dL Critically high <=150 [facility] Comment on above: Performed By: #### G SHON, LIPID #### [facility] [address] [place] [address] Dr. Melchor Brock VLDL CALC 33.4 mg/dL Normal [facility] Comment on above: Performed By: #### G SHON, LIPID #### [facility] [address] [place] [address] Dr. Melchor Brock LIPID PROFILEon 11-05-2021 CHOL-HDL RATIO NORM SEE BELOW Normal [facility] Comment on above: Result Comment: 3.3 - 4.4 LOW RISK 4.4 - 7.1 AVERAGE RISK 7.1 - 11.0 MODERATE RISK >11.0 HIGH RISK Performed By: #### L IPID, BMP #### [facility] [address] [place] [address] Dr. Melchor Brock Cholesterol [Mass/Vol] 244 mg/dL Critically high <=200 [facility] Comment on above: Performed By: #### L IPID, BMP #### [facility] [address] [place] [address] Dr. Melchor Brock Cholesterol in HDL [Mass/Vol] 60 mg/dL Normal 40-60 [facility] Comment on above: Performed By: #### L IPID, BMP #### [facility] [address] [place] [address] Dr. Melchor Brock Cholesterol in LDL [Mass/Vol] 158.4 mg/dL Normal [facility] Comment on above: Performed By: #### L IPID, BMP #### [facility] [address] [place] [address] Dr. Melchor Brock Cholesterol.total/C holesterol in HDL [Mass ratio] 4.1 {ratio} Normal [facility] Comment on above: Performed By: #### L IPID, BMP #### [facility] [address] [place] [address] Dr. Melchor Brock HDL NORMAL > or = 60 mg/dl - LO W CARDIOVASCULAR RISK <40 mg/dl - HIGH CARDIOVASCULAR RISK Normal [facility] Comment on above: Performed By: #### L IPID, BMP #### [facility] [address] [place] [address] Dr. Melchor Brock LDL CALC NORMAL SEE BELOW Normal [facility] Comment on above: Result Comment: <100 mg/dl OPTIMAL 100 - 129 mg/dl NEAR OR ABOVE OPTIMAL 130 - 159 mg/dl BORDERLINE HIGH 160 - 189 mg/dl HIGH >190 mg/dl VERY HIGH Performed By: #### L IPID, BMP #### [facility] [address] [place] [address] Dr. Melchor Brock Triglyceride [Mass/Vol] 128 mg/dL Normal <=150 [facility] Comment on above: Performed By: #### L IPID, BMP #### [facility] [address] [place] [address] Dr. Melchor Brock VLDL CALC 25.6 mg/dL Normal [facility] Comment on above: Performed By: #### L IPID, BMP #### [facility] [address] [place] [address] Dr. Melchor Brock PROF CHEM 8 (BAS METB)on Anion gap [Moles/Vol] 10.7 mmol/L Normal [facility] Comment on above: Performed By: #### L IPID, BMP #### [facility] [address] [place] [address] Dr. Melchor Brock Calcium [Mass/Vol] 7.8 mg/dL Critically low 8.4-10.2 [facility] Comment on above: Performed By: #### L IPID, BMP #### [facility] [address] [address] [address] Melchor Brock Chloride [Moles/Vol] 103 mmol/L Normal 98-107 [facility] Comment on above: Performed By: #### L IPID, BMP #### [facility] [address] [address] [address] Melchor Brock CO2 [Moles/Vol] 28.4 mmol/L Normal 22.0-30.0 [facility] Comment on above: Performed By: #### L IPID, BMP #### [facility] [address] [address] [address] Melchor Brock Creatinine [Mass/Vol] 1.05 mg/dL Critically high 0.52-1.04 [facility] Comment on above: Performed By: #### L IPID, BMP #### [facility] [address] [address] [address] Melchor Brock EGFR-AF SAO TOMEAN >60 Normal >=60 [facility] Comment on above: Performed By: #### L IPID, BMP #### [facility] [address] [address] [address] Melchor Brock EGFR-NON AF SAO TOMEAN 52 mL/min/1.73m2 Critically low >=60 [facility] Comment on above: Performed By: #### L IPID, BMP #### [facility] [address] [address] [address] Melchor Brock Glucose [Mass/Vol] 98 mg/dL Normal 74-106 [facility] Comment on above: Performed By: #### L IPID, BMP #### [facility] [address] [address] [address] Melchor Brock Potassium [Moles/Vol] 4.1 mmol/L Normal 3.4-5.0 [facility] Comment on above: Performed By: #### L IPID, BMP #### [facility] [address] [address] [address] Melchor Brock Sodium [Moles/Vol] 138 mmol/L Normal 137-145 [facility] Comment on above: Performed By: #### L IPID, BMP #### [facility] [address] [address] [address] Melchor Brock Urea nitrogen [Mass/Vol] 15.0 mg/dL Normal 7.0-17.0 [facility] Comment on above: Performed By: #### L IPID, BMP #### [facility] [address] [address] [address] Melchor Brock Urea nitrogen/Creatinine [Mass ratio] 14.3 mg/mg Normal [facility] Comment on above: Performed By: #### L IPID, BMP #### [facility] [address] [address] [address] Melchor Brock ECHOCARDIO M/2D COMPLETEon 0 10-05-2021 ECHOCARDIO M/2D COMPLETE Patient: ISAURA RIVERA Exam Date: 10/05/2021 : 1950 Gender:F Ordering : DR ANJELICA GAMBINO . Admission #: [id number] Family : Order #: [id number] CLICK HERE TO VIEW EXAM ECHOCARDIOGRAM REPORT [...] Area(A4C): 20.70 cm2 Left Atrium Systolic Volume(A2C): 14229 mm3 Left Atrium Systolic Volume(A4C): 94316 mm3 Mitral Valve MV E to A Ratio: 1.10 Deceleration [place]: 7410 mm/s2 Mitral Valve A-Wave Peak Velocity: [...] Dove M.D. on 10/06/2021 at 08:32 Normal [facility] XR DEXA BONE DENSITYon 09-18 XR DEXA BONE DENSITY EXAMINATION: XR DEXA BONE DENSITY, 09/18/2021 10:15 AM EST HISTORY: [...] by: KVNG TILLMAN Date: 2021-09-18 10:56 Normal [facility] DEXA BONE DENSITY AXIAL SKEL ETONon 09-12-2017 [...] by:ARLEY Valenciaigned by:Lora Mondragon MD09/12/17inal result Normal [facility] DIGITAL SCREEN BILATERAL on 09-12-2017 [facility] DIGITAL SCREEN BILATERAL REPORT: BILATERAL DIGITAL SCREENING [...] by:ARLEY Valenciaigned by:Lora Mondragon MD09/12/17inal result Normal [facility] Encounters Encounter Date Encounter Type Care Provider Facility Start: 07-30-2024 ambulatory Job Alvarado Facility : [facility] Start: 08-11-2023 ambulatory Job Alvarado Facility : [facility] Start: 07-27-2023 End: 07-27-2023 ambulatory ARIEL DAS Not Available Start: 06-13-2023 End: 06-14-2023 ambulatory Job Alvarado Facility: [facility] Start: 05-30-2023 End: 05-31-2023 ambulatory Job Alvarado Facility: [facility] Start: 05-30-2023 End: 05-31-2023 ambulatory Job Alvarado Facility: [facility] Start: 05-11-2023 End: 05-12-2023 ambulatory Violet L Leonidas Facility[facility] Start: 05-11-2023 End: 05-11-2023 Lab Drop off Violet Alonzo Leonidas [facility] Start: 12-01-2022 End: 12-02-2022 ambulatory Job Alvarado Facility: [facility] Start: 10-28-2022 ambulatory Violet Leonidas Facility:[facility] Start: 08-03-2022 End: 08-04-[address] ANJELICA [...] Start: 09-12-2017 End: 09-13-2017 Ambulatory FARA RICHARDSON [facility] l Procedures Date Procedure Procedure Detail Performing Clinician Start: 09-12-2017 Screening mammograph y bi 2-view breast inc cad FARA THOMASNAY Start: 09-12-2017 Dxa bone density jeanne dy 1/> sites axial skel FARA RICHARDSON Cholecystectomy Violet Lauren Comment on above: bile duct surgery Colonoscopy Violet Dowlingab Comment on above: 2012 normal Laser device (physic al object) Violet Dowlingab Comment on above: eye Immunizations Immunization Date Immunization Notes Care Provider Jailyn martinez NEGATED: Highlighted row has not occurred!12-01-2022 SARS-CoV-2 mRNA (tozinameran 5y-11y) vaccine Violet Dowlingab [facility] Payers Date Payer Category Payer Unknown [id number] 2014 Medicare [id number] 1957 Unknown [id number] 1950 Unknown [id number] 2.16.84 0.1.604446.3.579.2.593 1950 Unknown [id number] 2.16.84 0.1.625907.3.579.2.593 1950 Unknown [id number] 2.16.84 0.1.556204.3.579.2.593 1950 Unknown [id number] 2.16.84 0.1.447381.3.579.2.593 1950 Unknown [id number] 2.16.84 0.1.803972.3.579.2.593 1950 Unknown [id number] 2.16.84 0.1.814680.3.579.2.593 1950 Unknown [id number] 2.16.84 0.1.135187.3.579.2.593 1950 Unknown [id number] 2.16.84 0.1.829244.3.579.2.593 1950 Unknown [id number] 2.16.840 .1.957146.3.579.2.1259 1950 Unknown [id number] 2.16.8 40.1.847400.3.579.2.727 1950 Unknown [id number] 2.16.8 40.1.099051.3.579.2.727 1950 Unknown [id number] 2.16.8 40.1.636792.3.579.2.727 1950 Unknown [id number] 2.16.8 40.1.702959.3.579.2.727 1950 Unknown [id number] 2.16.8 40.1.082268.3.579.2.727 1950 Unknown [id number] 2.16.8 40.1.235837.3.579.2.727 1950 Unknown [id number] 2.16.8 40.1.631763.3.579.2.727 1950 Unknown [id number] 2.16.8 40.1.887930.3.579.2.727 1950 Unknown [id number] 2.16.8 40.1.243891.3.579.2.727 1950 Unknown [id number] 2.16.8 40.1.702126.3.579.2.727 Unknown [id number] Social History Date Type Detail Facility Start: 05-11-2023 Tobacco smoking status Never s moked tobacco (finding) [facility] Tobacco smoking status Never [facility] Sex Assigned At Female [facility] Clinical Note 08-05-2022 Note Date & Type [...] authenticated by: TAMIR CONLEY Date: 2022-08-04 22:03 [facility] Evaluation + Plan note Note Date & Type Note Facility Evaluation + Plan note Future Appointments Appointment Date:05/30/2023 02:00:00 PM Scheduled Provider: Location:[facility] Appointment Type: Medicare Wellness Subsequent Appointment Date:05/30/2023 02:40:00 PM Scheduled Provider:Job Alvarado MD Location:[facility] Appointment Type: Open Diagnostic Tests PendingUrine Culture 05/11/23 [facility] Hospital course Narrative Note Date & Type Note Facility Hospital course Narrative No data available for this section [facility] Discharge instructions Note Date & Type Note Facility Hospital Discharge instructions No data available for this section [facility] Progress note Note Date & Type Note Facility Progress note No data available for this section [facility] Summary Purpose Family History No Family History Records FoundNo Family History Records FoundNo Family History Records FoundNo Family History Records Found Advance Directives No Advanced Directives Records FoundNo Advanced Directives Records FoundNo Advanced Directives Records FoundNo Advanced Directives Records Found Additional Source Comments INFORMATION SOURCE (unrecogn ized section and content) DATE CREATED AUTHOR 02/13/2018 [facility] DATE CREATED AUTHOR AUTHOR'S ORGANIZ ATION 08/12/2022 [facility] DATE CREATED AUTHOR AUTHOR'S ORGANIZ ATION 07/29/2023 [facility] DATE CREATED AUTHOR AUTHOR'S ORGANIZ ATION 08/11/2023 [facility] Patient Care team informatio n (unrecognized section and content) Personnel Name: Job Alvarado MD Address: Address[address] [place], [place] [address] FOR RECORDS PERTAINING TO PATIENTS WHO ARE [...] BE BASED ON THE PRIMARY CLINICAL RECORDS. [facility] [employer] [facility]. provides no warranty or guarantee of the accuracy or completeness of information in this document.
[2023-08-12 08:25] LABS: Basophils Absolute Auto 0.1 10^3/uL (0.0-0.1); Basophils Percent Auto 0.9 % (0.2-2.0); Eosinophils Absolute Auto 0.3 10^3/uL (0.0-0.7); Eosinophils Percent Auto 5.8 % (0.9-7.0); Hemoglobin 11.6 g/dL (12.0-16.0); Immature Granulocytes Abs Auto 0.01 10^3/uL (0.00-0.03); Immature Granulocytes Pct Auto 0.2 % (0.0-0.5); Lymphocytes Absolute Auto 2.3 10^3/uL (1.2-3.8); Mean Corpuscular HGB Conc 33.1 g/dL (29.9-35.2); Mean Corpuscular Hemoglobin 32.5 pg (26.7-34.0); Mean Platelet Volume 8.5 fL (9.5-13.5); Monocytes Absolute Auto 0.5 10^3/uL (0.3-0.8); Monocytes Percent Auto 8.6 % (1.7-12.0); Neutrophils Absolute Auto 2.5 10^3/uL (1.4-6.5); Neutrophils Percent Auto 44.5 % (43.0-75.0); Platelet Count 248 10^3/uL (150-450); Red Blood Count 3.57 10^6/uL (4.20-5.40); Red Cell Distribution Width 12.1 % (11.0-15.0); White Blood Count 5.7 10^3/uL (4.0-11.0)
[2023-08-12] MEDS: LACTATED RINGER'S SOLUTION 1,000 ML 50 ML IV (08:48)
--- NOTE | 2023-08-12 11:39 | PM.ONB ---
Brief Operative Note Date of procedure: 08/12/23 Pre-op diagnosis: thickend endometrium,pmb Post-op diagnosis: other (cervical stenosis) Procedure: NAME OF PROCEDURE: [ D&c hysteroscopy attempted] PROCEDURE: The patient was taken back to the Operating Room where she was prepped and draped in normal sterile fashion after being placed under general anesthesia without difficulty. She was also placed in the dorsal lithotomy position. A weighted speculum was placed in the patient?s vagina. The anterior lip of the cervix was identified and grasped with a single tooth tenaculum. There was significant cervical stenosis, dt stenosis was unable to same endometrial linging, procedure was aborted Anesthesia: MAC Surgeon: Bentley Das Estimated blood loss (mL): 5 Pathology: none sent Condition: stable Disposition: PACU Urinary Catheter Management Urinary Catheter Management Urethral: Cath placed during this visit: no
== END 2023-08-12 12:45 | disposition home or self-care (01) ==
PROVIDERS: PCP Family Medicine; Visit Provider Obstetrics & Gynecology
PROC: (CPT 58558; principal; 2023-08-12 09:25)
DX: R93.89 Abnormal findings on diagnostic imaging of other specified body structures (principal); N95.0 Postmenopausal bleeding; N88.2 Stricture and stenosis of cervix uteri; M81.0 Age-related osteoporosis without current pathological fracture; M19.90 Unspecified osteoarthritis, unspecified site; E78.00 Pure hypercholesterolemia, unspecified; Z53.8 Procedure and treatment not carried out for other reasons; I10 Essential (primary) hypertension; Z86.010 Personal history of colon polyps; Z90.49 Acquired absence of other specified parts of digestive tract; K21.9 Gastro-esophageal reflux disease without esophagitis; Z87.01 Personal history of pneumonia (recurrent)
CPT/HCPCS: 58558; 36415; 85025; J2704

== ENCOUNTER 2023-08-17 13:53 | Outpatient (OUT) | payer MEDICARE, SELFPAY ==
--- NOTE | 2023-08-17 13:57 | CT_ITS ---
The [address] [address] Patient Name: PAPITO HAYDEN MRN: [id number] date: 1950 Sex: F Assigned Patient Location: CT Current Patient Location: Accession/Order Number: [id number] Exam Date: 08/17/2023 14:02 Report Date: 08/18/2023 06:56 At the request of: SUNG COPELAND Procedure: CT foot LT wo con EXAMINATION: CT foot LT wo con HISTORY: 2nd metatarsal stress fracture COMPARISON: XR foot left 08/09/2023 TECHNIQUE: Multi-planar CT images were created without and/or with IV contrast according to examination type. Dose reduction techniques were achieved by using automated exposure control and/or adjustment of mA and/or kV according to patient size and/or use of iterative reconstruction technique. FINDINGS: BONES: Cortical and trabecular irregularity involving the second metatarsal at the proximal diametaphyseal junction. Normal alignment is maintained. No periosteal reaction or significant cortical thickening. SOFT TISSUES: No significant soft tissue swelling. No fluid collection, mass, or foreign body.. OTHER: Negative. CT/CT foot LT wo con IMPRESSION: 1. Second metatarsal nonhealing/incompletely healed fracture. Bone lesion/neoplasm is felt much less likely given the appearance. 2. Normal alignment is maintained. Electronically authenticated by: ALAN CÁRDENAS Date: 08/18/2023 06:56
== END 2023-08-17 13:54 | disposition home or self-care (01) ==
LOC: CT 13:53
PROVIDERS: PCP Family Medicine; Visit Provider Podiatrist Foot & Ankle Surgery
DX: M84.375A Stress fracture, left foot, initial encounter for fracture (principal)
CPT/HCPCS: 73700

== ENCOUNTER 2023-09-20 09:46 | Outpatient (OUT) | payer MEDICARE, SELFPAY ==
--- OUTSIDE RECORDS SUMMARY | 2023-09-20 09:50 | XMS_ITS | CCD ---
Author Name Unknown Address [address] [place] [address] Organization [facility] Care Team Providers Care Airport Operations Coordinator Name Role Phone FARA RICHARDSON Unavailable Unavailable BELEN, ANJELICA Bergeron Unavailable Unavailable KARFARA TEE Unavailable Unavailable GAMBINO, ANJELICA Bergeron Unavailable Unavailable [...] Consulting Unavailable KARNAY, DR CHAUDHARI Attending Unavailable KARNYA, DR CHAUDHARI Admitting Unavailable MERRIMAN, DR KVNG Mendoza Consulting Unavailable Job Alvarado. Primary Care Physician Job Alvarado. Attending Unavailable Ross, Job E. Attending Unavailable Violet Lauren Attending Unavailable Job Alvarado Attending Unavailable Job Alvarado Attending Unavailable Job Alvarado Attending Unavailable Job Alvarado Attending Unavailable Job Alvarado Attending Unavailable Job Alvarado Attending Unavailable Job Alvarado Admitting Unavailable Violet Lauren Attending Unavailable Violet Lauren Admitting Unavailable NETO HERBERT Attending Unavailable ARIEL DAS Attending Unavailable Allergies Allergy Classification Reported Allergen(s) Allergy Type Date of Onset Reaction(s) Facility (2 sources) atorvastatin; Translations: [atorvastatin] Drug Allergy Unknown (qualifier value) [facility] (2 sources) HYDROmorphone; Translations: [hydromorphone] Drug Allergy Unknown (qualifier value) [facility] (2 sources) Pyrilamine; Translations: [pyrilamine] Drug Allergy Unknown (qualifier value) [facility] (1 source) No Known Medication Allergies; Translations: [No Known Medication Allergies] Propensity to adverse reactions (disorder) [facility] Repository Medications Current Medications Medication [...] BID, # 180 tab(s), Refills(s) 0, Pharmacy: [facility] [id number], 162, cm, 05/11/23 9:36:00 EDT, Height/Length Dosing, 74.9, kg, 05/11/23 9:36:00 EDT, Weight Dosing Start Date: 05/11/23 Status: Ordered meloxicam 15 mg oral tablet (1 source) Nonsteroidal Anti-inflammatory Drug Start: 02-27-2023 take 1 tablet by mouth once daily as needed meloxicam 15 mg Tab See Instructions, TAKE ONE TABLET BY MOUTH DAILY NEEDED, # 90 tab(s), Refills(s) 0, Pharmacy: [facility] [id number], 162.6, cm, 12/01/22 15:23:00 EDT, Height/Length Dosing, 76.5, kg, 12/01/22 15:23:00 EDT, Weight Dosing Start Date: 02/27/23 Status: Ordered rosuvastatin calcium 20 mg oral tablet (1 source) HMG-CoA Reductase Inhibitor Start: 02-27-2023 take 1 tablet by mouth once daily rosuvastatin 20 mg Tab See Instructions, TAKE ONE TABLET BY MOUTH DAILY, # 90 tab(s), Refills(s) 0, Pharmacy: [facility] [id number], 162.6, cm, 12/01/22 15:23:00 EDT, Height/Length Dosing, [...] Interpretation Reference Range Facil ity Consultation Noteon 08-24-19 Consultation Note [id number]#1.0 0TIFF Normal [facility] Consultation Note [id number] 20 [id number]#1.0 0TIFF Normal [facility] RAD - CT Reporton 08-24-2023 RAD - CT Report [id number] 20 [id number]#1.0 0TIFF Normal [facility] Operative Reporton Operative Report [id number] 20 [id number]#1.0 0TIFF Normal [facility] Patient Correspondenceon Patient Correspondence [id number]#1.0 0TIFF [facility] Provider Letteron 08-12-2023 Provider Letter [address] [place] [address] August 12, 2023 ISAURA METZGERHOLDER [address] [address] : [address] Das, The above patient has been evaluated at your request for preoperative clearance. After assessment of available pertinent labs and diagnostic tests, I feel this patient is medically optimized for surgery. Final discretion of whether the patient is cleared for surgery remains up to the surgeon/anesthesiologi st. Thank you, YISEL Vásquez [facility] Ambulatory Visit Summaryon 1 10-12-2022 Ambulatory Visit Summary CATRACHO ISAURA Rosado :1950 Visit Date:08/11/2023 Ambulatory Visit Instructions Your Care Team Attending Physician - Job Alvarado MD Primary Care Physician - Job Alvarado MD This Is Your Medications List amlodipine (amLODIPine 5 mg Tab) aspirin (aspirin 81 mg oral capsule) calcium-vitamin D glucosamine (glucosamine hydrochloride 1500 mg oral tablet) losartan (losartan 100 mg Tab) meloxicam (meloxicam 15 mg Tab) omega-3 polyunsaturated fatty acids (omega-3 polyunsaturated fatty acids 500 mg oral capsule) rosuvastatin (rosuvastatin 20 mg Tab) tafluprost ophthalmic (Zioptan 0.0015% ophthalmic solution) vitamin E (vitamin E 450 mg oral capsule) Procedures Performed Cholecystectomy, Colonoscopy, Laser. Discharge Vitals Temperature (Temporal Artery) 36.4 ?C Heart Rate (Peripheral) 62 Respiratory Rate 16 Blood Pressure 138/80 Height 64 in Height 162 cm Weight 166.32 lb Weight 75.6 kg BMI 28.81 What to do next Scheduled Follow-Up Appointments Tuesday 10:30 AM EST With: Christiano SHORT, Job Harvey Where: [facility] Normal [address] [place], [place] [address]- \.br\ Medications\.br\ What How Much When Instructions\.br\ Unchanged amlodipine (amLODIPine 5 mg Tab) See instructions TAKE 1 TABLET BY MOUTH DAILY \.br\ Unchanged aspirin (aspirin 81 mg oral capsule) See instructions 1 cap(s) Oral every other day \.br\ Unchanged calcium-vitamin D Every day\.br\ Unchanged glucosamine (glucosamine hydrochloride 1500 mg oral tablet) 1 Tablets By Mouth Every day\.br\ Unchanged losartan (losartan 100 mg Tab) 1 Tablets By Mouth Every day\.br\ Unchanged meloxicam (meloxicam 15 mg Tab) See [...] pathological fracture\.br\ Chronic kidney disease, stage 3a\.br\ Foot pain, right\.br\ Hypercholesterole laura\.br\ Hyperlipidemia\.b r\ Hypertension\.br\ Hypertensive kidney disease with stage 3a chronic kidney disease\.br\ Postmenopause bleeding\.br\ Right sided abdominal pain\.br\ TIA (transient ischemic attack)\.br\ Patient Survey\.br\ You may receive a survey via text or e-mail asking about your office visit. Please share your experience with us by completing your survey. We appreciate your feedback and thank you for choosing us for your care.\.br\ \.br\ [facility] ECG 12-Leadon 08-11-2023 ECG 12-Lead [id number] 20 [id number]#1.0 0TIFF [address] [facility] Family Medicine Office/Clini c Noteon 08-11-2023 Family Medicine Office/Clinic Note HPI Staff Isaura is a 73 year old female presenting for surgical clearance Had EKG on Tuesday and Dr Das asked for a clearance Pt is having D&C on 08/12/[address] Das History of Present Illness - No CP, SOB - Can walk to city blocks without stopping - EKG was Nondiagnostic for anything. Review of Systems PHQ Score Initial Depression Screen Score: 0 SCORE Physical Exam Vitals & Measurements T: 36.4 ?C(Temporal Artery) HR: 62(Peripheral) RR: 16 BP: 138/80 SpO2: 99% HT: 64 in HT: 162 cm WT: 75.6 kg WT: 166.32 lb BMI: 28.81 General: alert, no acute distress ENMT: oral mucosa moist, Cardiovascular: regular rate and rhythm, normal peripheral perfusion Respiratory: Lungs CTA, respirations non labored Extremities: no deformity, no trauma Neurological: oriented x 4, LOC appropriate for age, CN II-XII intact, motor strength equal & normal bilaterally, speech normal Abdomen: Soft, Nontender, Non-distended, + BS Assessment/Plan 1. Pre-op exam (Z01.818: Encounter for other preprocedural examination) - Medically optimized. - Discussed with Dr. Das - Follow up post precedure 2. Postmenopause bleeding (N95.0: Postmenopausal bleeding) - For D/C tomorrow. Follow-up No qualifying data available Patient Education Choosing a Surgeon Problem List/Past Medical History Ongoing Age-related osteoporosis without current pathological fracture Chronic kidney disease, stage 3a Foot pain, right Hypercholesterolemia Hyperlipidemia Hypertension Hypertensive kidney disease with stage 3a chronic kidney disease Postmenopause bleeding Pre-op exam Right sided abdominal pain TIA (transient ischemic attack) Historical No qualifying data Procedure/Surgical History Cholecystectomy, Colonoscopy, Laser. Medications amLODIPine 5 mg Tab, See Instructions, 3 refills aspirin 81 mg oral capsule, See Instructions calcium-vitamin D, Daily glucosamine hydrochloride 1500 mg oral tablet, 1500 mg= 1 tab(s), Oral, Daily losartan 100 mg Tab, 100 mg= 1 tab(s), Oral, Daily omega-3 polyunsaturated fatty acids 500 mg oral capsule, 500 mg= 1 cap(s), Oral, Daily rosuvastatin 20 mg Tab, See Instructions vitamin E 450 mg oral capsule, See Instructions Zioptan 0.0015% ophthalmic solution, See Instructions Allergies Dilaudid (Unknown) atorvastatin (Unknown) pyrilamine (Unknown) Social History Alcohol Wine, 3-5 times per week, Household alcohol concerns: No., 05/30/2023 Tobacco Never (less than 100 in lifetime) Tobacco Use:. Never Smokeless Tobacco Use:. Household tobacco concerns: No., 08/11/2023 Family History Family history is negative Immunizations Vaccine Date Status Comments influenza virus [...] Recorded pneumococcal 23-valent vaccine 06/25/2008 Recorded Normal [facility] Comment on above: Result Comment: Elec tronically Signed By: Christiaon SHORT, Job Jacobsonbr\Date and Time Signed: 08/11/23 12:57 EST RAD - MISCon 08-10-2023 RAD - MISC [id number]#1.0 0TIFF [facility] Consultation Noteon 07-07-20 Consultation Note [id number] 10 [id number]#1.0 0TIFF Normal [facility] RAD - MISCon 07-07-2023 RAD - MISC [id number] 10 [id number]#1.0 0TIFF Normal [facility] Patient Logson 06-14-2023 Patient Logs [id number]#1.0 0TIFF [facility] Physician Referralon 023 Physician Referral [id number]#1. 00TIFF [facility] Nurse Consultation Noteon Nurse Consultation Note Reason [...] Recorded pneumococcal 23-valent vaccine 06/25/[address]ed [address] [facility] Outside Colonoscopyon 2022 Outside Colonoscopy [id number] 00 [id number]#1.0 0TIFF Normal [facility] Patient Logson 06-07-2023 Patient Logs [id number] 00 [id number]#1.0 0TIFF Normal [facility] Auth for Release of Medical Recordson 06-01-2023 Auth for Release of Medical Records [id number]#1.0 0TIFF Normal [facility] Family Medicine Office/Clini c Noteon [...] More of the Symptoms Below : No Lauren Leidy Marlene - 05/30/2023 14:34 EDT COVID-19 Vaccine : No Leidy Aguilar Marlene - 05/30/2023 14:36 EDT Covid-19 External Testing : No *Verify Airborne, Droplet Precautions for MERS/COVID-19 : N/A *Verify Droplet, Contact Precautions for Ebola (Reference for CDC) : N/A Leidy Aguilar Marlene - 05/30/2023 14:34 EDT Summary Preferred Lab : [facility] Preferred Rad : [facility] Patient Counseled : Nutrition, Physical [...] area free o (more content not included)... [facility] Comment on above: Result Comment: Elec tronically Signed By: Job Alvarado MD\.br\Date and Time Signed: 06/01/23 10:38 EDT\.br\Electronically Co-Signed By: Neftaly Wolfe\.br\Date and Time Co-Signed: 05/30/23 15:29 EDT Auth for Release of Medical Recordson 05-31-2023 Auth for Release of Medical Records [id number]#1.0 0TIFF [facility] Physician Referralon 023 Physician Referral [id number]#1. 00TIFF [facility] Screenson 05-31-2023 Screens [id number]#1. 00TIFF [facility] Ambulatory Visit Summaryon 1 Ambulatory Visit Summary [...] Follow-Up Appointments Tuesday 9:00 AM EDT Where: [facility] Invalid Interpretation Code [address] [place] [address]- \.br\ Someone Will Contact You Regarding These Appointments\.br\ [facility]00 EDT, Hypertension [facility] Ambulatory Visit Summary CATRACHOSHASHIJUSTIN Rosado :1950 Visit Date:05/30/2023 Ambulatory Visit Instructions Your [...] Follow-Up Appointments Tuesday 9:00 AM EDT Where: [facility] Invalid Interpretation Code [address] [place] [address]- \.br\ Someone Will Contact You Regarding These Appointments\.br\ [facility] 15:02:00 EDT, Hypertension [facility] Ambulatory Visit Summary ISAURA RIVERA [...] Follow-Up Appointments Tuesday 9:00 AM EDT Where: [place] [id number]- \.br\ Medications\.br\ What How Much When Why [...] abdominal pain\.br\ TIA (transient ischemic attack)\.br\ \.br\ [facility] Ambulatory Visit Summary ISAURA RIVERA [...] Follow-Up Appointments Tuesday 11:00 AM EST Where: [facility] [place] Normal [facility] Family Medicine Office/Clini c Notejustin 05-30-2023 Family Medicine Office/Clinic Note HPI Staff [...] a nurse visit in 2 weeks. Ordered: [facility] External Ambulatory Referral Medicare Subsequent Visit G0439 2. Hypertensive kidney disease with stage 3a chronic kidney disease (I12.9: Hypertensive chronic kidney disease with stage 1 through stage 4 chronic kidney disease, or unspecified chronic kidney disease) - Working to control Bps to protect the kidneys Ordered: [facility] External Ambulatory Referral 3. Chronic kidney disease, stage 3a (N18.31: Chronic kidney disease, stage 3a) - Will have the patient cut down on the NSAIDs to protect the kidneys Ordered: [facility] [place] Ambulatory Referral 4. Hypercholesterolemia (E78.00: Pure hypercholesterolemia, unspecified) - Continue on the statin Ordered: [facility] [place] Ambulatory Referral 5. Postmenopause bleeding (N95.0: Postmenopausal bleeding) - Follow up with Dr. Das Ordered: [facility] [place] Ambulatory Referral 6. Foot pain, right [...] Daily, # 90 tab(s), Refills(s) 0, Pharmacy: [facility] [id number], 162, cm, 05/30/23 14:36:00 EDT, Height/Length Dosing, 75.9, kg, 05/30/23 14:35:00 EDT, Weight Dosing losartan, See Instructions, Take 1 tab in am and 2 in pm, # 270 tab(s), Refills(s) 3, [facility] [id number], 162.6, cm, 12/01/22 15:23:00 EDT, Height/Length Dosing, 76.5, kg, 12/01/22 15:23:00 EDT, Weight Dosing rosuvastatin, See Instructions, TAKE ONE TABLET BY MOUTH DAILY, # 90 tab(s), Refills(s) 0, [facility] [id number], 162, cm, 05/30/23 14:36:00 EDT, Height/Length Dosing, [...] immunization status assessed 1030F Lab Specimen Collect 90756 Lipid Panel Medication list documented in medical [...] Medications aspir (more content not included)... Normal [facility] Comment on above: Result Comment: Elec tronically Signed By: Christiano SHORT, Job Saldivar.br\Date and Time Signed: 05/30/23 15:10 EDT Lipid Panelon 05-30-2023 Cholesterol [Mass/Vol] 206 mg/dL High 120-[address] [facility] Comment on above: Performed By: #### 2 [id number] #### [facility] Laboratory [address] [place] [address] Cholesterol in HDL [Mass/Vol] 61 mg/dL Invalid Interpretation Code [facility] Comment on above: Result Comment: HDL > or equal to 60 mg/dL: Low cardiovascular risk HDL < 40 mg/dL : High cardiovascular risk Performed By: #### 2 [id number] #### [facility] Laboratory [address] [place] [address] Cholesterol in LDL [Mass/Vol] 111 mg/dL Normal <=[address] [facility] Comment on above: Performed By: #### 2 114059 #### [facility] Laboratory [address] [place] [address] Cholesterol in VLDL [Mass/Vol] 35 mg/dL Normal 7-[address] [facility] Comment on above: Performed By: #### 2 [id number] #### [facility] Laboratory [address] [place] [address] Triglyceride [Mass/Vol] 177 mg/dL High <=[address] [facility] Comment on above: Performed By: #### 2 [id number] #### [facility] Laboratory [address] [place] [address] Patient Educationon 05-30-20 Patient Education [facility] Fall Prevention in the Home, Adult Falls [...] night-lights. ? Place frequently used items in yswh-ox-papml places. Lower the shelves around your home [...] the way. ? Do not use floor tunisian or wax that makes floors slippery. If [...] include working with a physical therapist or color strainer to improve your strength, balance, and endurance. Where to find more information ? Centers for Disease Control and Prevention, [place]: www.cdc.gov ? National [place] on Aging: www.brandy.nih.gov Contact a health care [...] health ca (more content not included)... Normal [facility] Pre-Visit Planningon 023 Pre-Visit Planning - From: Benita MENJIVAR, Daly To: Christiano SHORT, Job Harvey; Sent: 05/27/2023 13:37:55 EDT Subject: Pre-Visit Planning Due Date/Time: 05/27/2023 13:37:00 EDT Caller Name: ISAURA RIVERA; Caller Number: H , M Wa Dr. Alvarado, *Based on your response below, [...] feel free to contact me at extension [phone]. Thank you! Daly Joy, ALEXN, RN, CCM, CCDS, CCDS-O From: Christiano SHORT, Job Harvey To: Benita RN, Daly; Sent: 05/30/2023 13:07:52 EDT Subject: RE: Pre-Visit Planning Caller Name: ISAURA RIVERA; Caller Number: Adrian , M Please add 3A Normal [address] [place] [address] C Urineon 05-13-2023 Bacteria identified Cx Nom (U) Microbiology PROCEDURE: Urine Culture [R1] SOURCE: U CleanCatch BODY SITE: COLLECTED DATE/TIME: 05/11/2023 12:05 EDT RECEIVED DATE/TIME: 05/11/2023 18:38 EDT START DATE/TIME: 05/11/2023 19:05 EDT FREE TEXT SOURCE: Leonidas STORM, Violet SHEAP, Violet Rosado FINAL REPORTS Final Report [] Verified Date/Time: 05/13/2023 10:07 EDT <10,000 cfu/ml Mixed skin contaminants Performing Locations R1: This test was performed at: [facility], [address] [place] [address], [facility] , , [facility] Comment on above: Performed By: #### 2 [id number], [id number] ####[facility] [address] [place] [address] RAD - Ultrasound Reporton RAD - Ultrasound Report [id number]#1.0 0CD:[address] [facility] RAD - Ultrasound Report [id number]#1.0 0CD:127 [facility] Ambulatory Visit Summaryon 0 05-11-2023 Ambulatory Visit Summary CATRACHOSHASHIJUSTIN Rosado :1950 Visit Date:05/11/2023 Ambulatory Visit Instructions Your Diagnosis BMI 28.0-28.9,adult Non-smoker Right sided abdominal pain Postmenopause bleeding Your Care Team Attending Physician - Leonidas STORM, Violet Rosado Primary Care Physician - Christiano SHORT, Job [...] Appointments Tuesday 2:00 PM EDT [facility]: [facility] [id number] \.br\ Medications\.br\ What How Much When Instructions\.br\ [...] abdominal pain\.br\ TIA (transient ischemic attack)\.br\ \.br\ [facility] Amylaseon 05-11-2023 Amylase [Catalytic activity/Vol] 74 U/L Normal 25-[address] [facility] Comment on above: Performed By: #### 2 316759, 4613563, 6631015, 2821355, 9191066, [id number] ####[facility] [address] [place] [address] Auto Diffon 05-11-2023 Basophils/100 WBC (Bld) 0.8 % Normal 0.0-2.[address] [facility] Comment on above: Order Comment: Order Added by Discern Expert. Performed By: #### 2 617994, 1768512, 4552712, 2086654, 1158306, 05263982 ####[facility] [address] [place] [address] Basophils/Leukocyte s Auto (Bld) [Pure # fraction] 0.0 E9/L Normal 0.0-0.[address] [facility] Comment on above: Order Comment: Order Added by Discern Expert. Performed By: #### 2 666549, 2922989, 0321922, 1099513, 8658507, [id number] ####[facility] [address] [place] [address] Eosinophils/100 WBC (Bld) 5.2 % Normal 0.0-8.[address] [facility] Comment on above: Order Comment: Order Added by Discern Expert. Performed By: #### 2 408327, 5581130, 2125855, 1083145, 3805855, 77649434 ####[facility] [address] [place] [address] Eosinophils/Leukocy ambrosio Auto (Bld) [Pure # fraction] 0.3 E9/L Normal 0.0-0.[address] [facility] Comment on above: Order Comment: Order Added by Discern Expert. Performed By: #### 2 966243, 3153985, 8362351, 1549321, 9654675, 47276581 ####[facility] [address] [place] [address] Lymphocytes/100 WBC (Bld) 31.3 % Normal 14.0-50.[address] [facility] Comment on above: Order Comment: Order Added by Discern Expert. Performed By: #### 2 830328, 0293948, 7657363, 4215169, 8576703, 09965709 ####[address] [address] Lymphocytes/Leukocy ambrosio Auto (Bld) [Pure # fraction] 1.8 E9/L Normal 1.0-4.[address] [facility] Comment on above: Order Comment: Order Added by Discern Expert. Performed By: #### 2 861360, 4990541, 1781700, 7840759, 1122453, 75807433 ####[address] [address] Monocytes/100 WBC (Bld) 7.8 % Normal 4.0-14.[address] [facility] Comment on above: Order Comment: Order Added by Discern Expert. Performed By: #### 2 578393, 1124009, 6462921, 9577166, 6727157, 78255927 ####[address] [address] Monocytes/Leukocyte s Auto (Bld) [Pure # fraction] 0.4 E9/L Normal 0.2-1.[address] [facility] Comment on above: Order Comment: Order Added by Discern Expert. Performed By: #### 2 729080, 2895168, 7389199, 0272978, 5336274, 68163636 ####[place] [address] [place] [address] Neutrophils/100 WBC (Bld) 54.9 % Normal 36.0-75.[address] [facility] Comment on above: Order Comment: Order Added by Discern Expert. Performed By: #### 2 300480, 3579624, 7581192, 4952703, 8694390, 08271542 ####[facility] [address] [place] [address] Neutrophils/Leukocy ambrosio Auto (Bld) [Pure # fraction] 3.1 E9/L Normal 2.0-7.[address] [facility] Comment on above: Order Comment: Order Added by Discern Expert. Performed By: #### 2 015136, 4281997, 9263528, 7991091, 6974768, 02987080 ####[facility] [address] [place] [address] CBC w/ Auto Diffon 3 Erythrocyte distribution width (RBC) [Ratio] 12.9 % Normal 10.9-14.[address] [facility] Comment on above: Performed By: #### 2 818138, 2819545, 2547150, 9718658, 8195171, 44298393 #### [facility] Laboratory [address] [place] [address] Hematocrit (Bld) [Volume fraction] 34.9 % Normal 34.0-46.[address] [facility] Comment on above: Performed By: #### 2 512603, 9681183, 3563713, 8996551, 0160123, 34860212 #### [facility] Laboratory [address] [place] [address] Hemoglobin (Bld) [Mass/Vol] 11.8 g/dL Low 12.0-16.[address] [facility] Comment on above: Performed By: #### 2 077139, 7668192, 3708181, 5672988, 9504688, 84114814 #### [facility] Laboratory [address] [place] [address] MCH (RBC) [Entitic mass] 32.6 pg Normal 27.0-34.[address] [facility] Comment on above: Performed By: #### 2 468554, 0916322, 7436635, 5714747, 7421724, 15429898 #### [facility] Laboratory [address] [place] [address] MCHC (RBC) [Mass/Vol] 33.9 g/dL Normal 31.4-36.[address] [facility] Comment on above: Performed By: #### 2 036548, 5689188, 7343781, 1184190, 0000659, [id number] #### [facility] [address] [place] [address] MCV (RBC) [Entitic vol] 96.3 fL Normal 80.0-100.[address] [facility] Comment on above: Performed By: #### 2 876722, 9693014, 8242881, 2705274, 9156859, 97063315 #### [facility] [address] [place] [address] Platelet mean volume (Bld) [Entitic vol] 8.2 fL Normal 6.4-10.[address] [facility] Comment on above: Performed By: #### 2 211118, 1558986, 9773391, 5525886, 0040128, 60483162 #### [facility] [address] [place] [address] Platelets (Bld) [#/Vol] 275.0 E9/L Normal 150.0-500.[address] [facility] Comment on above: Performed By: #### 2 150640, 9852681, 7669675, 3788992, 0000777, 90598888 #### [facility] [address] [place] [address] 19578 RBC (Bld) [#/Vol] 3.6 E12/L Low 4.3-5.[address] [facility] Comment on above: Performed By: #### 2 750296, 3362709, 7517210, 4006674, 2248420, 30434842 #### [facility] [address] [place] [address] 229[address] WBC corrected for nucl RBC Auto (Bld) [#/Vol] 5.6 E9/L Normal 4.0-11.[address] [facility] Comment on above: Performed By: #### 2 358797, 3455346, 7173827, 6475770, 5913080, 61786331 #### [place] [facility] [address] [place] [address] CHEMISTRYOrdered By: SYSTEM SYSTEM on 05-11-2023 Albumin [...] rate/Area] 44 mL/min/1.73 m2 Low >=59mL/min/1.73 m2 FT Chem S Globulin (S) [Mass/Vol] 3.2 g/dL Normal 1.4 - 4.0 gm/dL [facility] Remisol Glucose [Mass/Vol] 93 mg/dL Normal 55 - 199 mg/dL FT Remisol Lipase [Catalytic activity/Vol] 46 U/L Normal 13 - 58 unit/L [facility] Potassium [Moles/Vol] 4.3 mmol/L Normal 3.5 - 5.3 mmol/L [facility] Remisol Protein [Mass/Vol] 7.5 g/dL Normal 6.0 - 7.8 gm/dL F [facility] Remisol Sodium [Moles/Vol] 141 mmol/L Normal 135 - 145 mmol/L [facility] Remisol Urea nitrogen [Mass/Vol] 21 mg/dL Normal 5 - 21 mg/dL [facility] Remisol Urea nitrogen/Creatinine [Mass ratio] 16 mg/mg Normal 10 - [facility] Remisol CMPon 05-11-2023 Albumin [Mass/Vol] 4.3 g/dL Normal 3.3-5.[address] [facility] Comment on above: Performed By: #### 2 405847, 4434863, 3596815, 0050651, 3137880, 82157200 ####[facility] [address] [place] [address] Albumin/Globulin (S) [Mass conc ratio] 1.3 Normal 1.1-2.[address] [facility] Comment on above: Performed By: #### 2 530643, 7532057, 1730299, 6849265, 4202419, 77095069 ####[facility] [address] [place] [address] ALP [Catalytic activity/Vol] 46 Int._Unit/L Normal 21-[address] [facility] Comment on above: Performed By: #### 2 938360, 1985742, 9307089, 4142711, 4268218, 33073218 ####[facility] [address] [place] [address] ALT No additional P-5'-P [Catalytic activity/Vol] 16 Int._Unit/L Normal 6-[address] [facility] Comment on above: Performed By: #### 2 963131, 8629061, 1273396, 3376111, 7934377, 96416871 ####[facility] [address] [place] [address] Anion gap [Moles/Vol] 10 mmol/L Normal 6-[address] [facility] Comment on above: Performed By: #### 2 904107, 0193471, 6957806, 6889009, 0157988, 89165645 ####[facility] [address] [place] [address] AST [Catalytic activity/Vol] 23 Int._Unit/L Normal 5-[address] [facility] Comment on above: Performed By: #### 2 917238, 2379089, 8663124, 7100454, 5710584, 24650281 ####[facility] [address] [place] [address] Bilirubin [Mass/Vol] 0.6 mg/dL Normal 0.0-1.[address] [facility] Comment on above: Performed By: #### 2 955737, 0927403, 4640832, 4486977, 9492475, 33885337 ####[facility] [address] [place] [address] Calcium [Mass/Vol] 9.5 mg/dL Normal 8.9-11.[address] [facility] Comment on above: Performed By: #### 2 421769, 1731157, 8133553, 5606891, 2200501, 11618538 ####[facility] [address] [place] [address] Chloride [Moles/Vol] 108 mmol/L Normal 101-[address] [facility] Comment on above: Performed By: #### 2 724455, 2158772, 6097139, 5378595, 7851977, 69893061 ####[facility] [address] [place] [address] CO2 [Moles/Vol] 27 mmol/L Normal 21-[address] [facility] Comment on above: Performed By: #### 2 662596, 0413331, 9148477, 8322434, 1765155, 86869077 ####[facility] [address] [place] [address] Creatinine [Mass/Vol] 1.3 mg/dL Normal 0.5-1.[address] [facility] Comment on above: Performed By: #### 2 292252, 0898420, 4220385, 4072510, 9856495, 28547219 ####[facility] [address] [place] [address] Globulin (S) [Mass/Vol] 3.2 g/dL Normal 1.4-4.[address] [facility] Comment on above: Performed By: #### 2 612499, 5586879, 7498067, 6617557, 7253310, 71354574 ####[facility] [address] [place] [address] Glucose [Mass/Vol] 93 mg/dL Normal 55-[address] [facility] Comment on above: Result Comment: If t his glucose result represents a fasting glucose, interpretation should refer to the following reference range: 55-99 mg/dL Performed By: #### 2 567326, 9769966, 7317445, 5382382, 7250354, 21562424 ####[facility] [address] [place] [address] Potassium [Moles/Vol] 4.3 mmol/L Normal 3.5-5.[address] [facility] Comment on above: Performed By: #### 2 233628, 8084462, 2825960, 7474647, 6826919, 29954878 ####[facility] [address] [place] [address] Protein [Mass/Vol] 7.5 g/dL Normal 6.0-7.[address] [facility] Comment on above: Performed By: #### 2 166658, 0293305, 4727797, 7876883, 2661952, 20355634 ####[facility] [address] [place] [address] Sodium [Moles/Vol] 141 mmol/L Normal 135-[address] [facility] Comment on above: Performed By: #### 2 697391, 4290623, 3391614, 0476701, 2782100, 60496896 ####[facility] [address] [place] [address] Urea nitrogen [Mass/Vol] 21 mg/dL Normal 5-[address] [facility] Comment on above: Performed By: #### 2 409390, 5784710, 7332532, 0240953, 6917315, 24371306 ####[facility] [address] [place] [address] Urea nitrogen/Creatinine [Mass ratio] 16 No Units Normal 10-[address] [facility] Comment on above: Performed By: #### 2 774650, 1194654, 9151480, 4175236, 5485617, 21849404 ####[facility] [address] [place] [address] Family Medicine Office/Clini c Noteon 05-11-2023 Family [...] BID, # 180 tab(s), Refills(s) 0, Pharmacy: [facility] [id number], 162, cm, 05/11/23 9:36:00 EDT, Height/Length Dosing, [...] BID, # 180 tab(s), Refills(s) 0, Pharmacy: [facility] [id number], 162, cm, 05/11/23 9:36:00 EDT, Height/Length Dosing, [...] BID, # 180 tab(s), Refills(s) 0, Pharmacy: [facility] [id number], 162, cm, 05/11/23 9:36:00 EDT, Height/Length Dosing, 74.9, kg, 05/11/23 9:36:00 EDT, Weight Dosing Amylase Level CBC w/ Auto Diff Comprehensive Metabolic Panel Lipase Level UA With Cult Reflex 5. Non-smoker (Z78.9: Other specified health status) continue not smoking Ordered: losartan, 25 mg = 1 tab(s), Oral, BID, # 180 tab(s), Refills(s) 0, Pharmacy: [facility] [id number], 162, cm, 05/11/23 9:36:00 EDT, Height/Length Dosing, [...] Instructions Allergies (more content not included)... Normal [facility] Comment on above: Result Comment: Elec tronically Signed By: Violet Allen\.br\Date and Time Signed: 05/11/23 12:51 EDT HEMATOLOGYOrdered By: SYSTEM SYSTEM on 05-11-2023 Basophils/100 WBC (Bld) 0.8 % Normal 0.0 - 2.0 % [facility] HemeAutoSS Basophils/Leukocyte s Auto (Bld) [Pure # [...] 275.0 E9/L Normal 150.0 - 500.0 E9/L [facility] HemeAutoSS RBC (Bld) [#/Vol] 3.6 E12/L Low 4.3 - 5.9 E12/L [facility] HemeAutoSS WBC corrected for nucl RBC Auto (Bld) [#/Vol] 5.6 E9/L Normal 4.0 - 11.0 E9/L [facility] HemeAutoSS Lipase Levelon 05-11-2023 Lipase [Catalytic activity/Vol] 46 U/L Normal 13-[address] [facility] Comment on above: Performed By: #### 2 442155, 9885055, 1874714, 9120266, 9375791, 33430906 ####[facility] [address] [place] [address] UA With Cult Reflexon 2022 Bacteria LM Ql (Urine sed) TRACE Normal Trace [facility] Comment on above: Performed By: #### 2 764855, 12663560 ####[address] [address] Bilirubin Ql (U) Negative Normal Negative [facility] Comment on above: Performed By: #### 2 290416, 19021778 ####[address] [address] Clarity (U) CLEAR Normal Clear [facility] Comment on above: Performed By: #### 2 433379, 41166443 ####[address] [address] Color (U) YELLOW Normal Yellow [facility] Comment on above: Performed By: #### 2 722824, 37217150 ####[address] [address] Crystals LM Ql (Urine sed) Present Normal [facility] Comment on above: Performed By: #### 2 591663, 75053715 ####[facility] [address] [place] [address] Epithelial cells.squamous LM.HPF (Urine sed) [#/Area] 5-8 Normal 0-[address] [facility] Comment on above: Performed By: #### 2 367768, 97418012 ####[facility] [address] [place] [address] Glucose Test strip (U) [Mass/Vol] Negative Normal Negative [facility] Comment on above: Performed By: #### 2 823967, 01153943 ####[facility] [address] [place] [address] Hemoglobin Ql (U) TRACE Abnormal Negative [facility] Comment on above: Performed By: #### 2 846290, 62059511 ####[facility] [address] [place] [address] Ketones (U) [Mass/Vol] Negative Normal Negative [facility] Comment on above: Performed By: #### 2 862325, 83310334 ####[facility] [address] [place] [address] [place].plasma/Lith ium.RBC (Bld) [Mass ratio] 0-3 Normal 0-[address] [facility] Comment on above: Performed By: #### 2 858840, 12949894 ####[facility] [address] [place] [address] Mucus Ql (Urine sed) 2+ Normal [facility] Comment on above: Performed By: #### 2 074828, 49466307 ####[facility] [address] [place] [address] Nitrite Ql (U) Negative Normal Negative [facility] Comment on above: Performed By: #### 2 948425, 09651112 ####[facility] [address] [place] [address] pH (U) 7.0 [pH] Invalid Interpretation Code 5.0-9.[address] [facility] Comment on above: Performed By: #### 2 965562, 10800808 ####[facility] [address] [place] [address] Protein (U) [Mass/Vol] Negative Normal Negative [facility] Comment on above: Performed By: #### 2 445452, 64919729 ####[facility] [address] [place] [address] Specific gravity (U) [Rel density] 1.010 Invalid Interpretation Code 1.005-1.[address] [facility] Comment on above: Performed By: #### 2 793428, 01012034 ####[place] [address] Type of Urine collection method Clean Catch Normal [facility] Comment on above: Performed By: #### 2 576327, 99523015 ####[place] [address] Urobilinogen Qn (U) 0.2 {Leon'U}/dL Normal 0.0-1.[address] [facility] Comment on above: Performed By: #### 2 546991, 08003475 ####[place] [address] WBC Auto Ql (U) 1+ Abnormal Negative [facility] Comment on above: Performed By: #### 2 588999, 02354926 ####[place] [address] WBC LM.HPF (Urine sed) [#/Area] 0-5 Normal 0-[address] [facility] Comment on above: Performed By: #### 2 076539, 56859085 ####[place] [address] URINALYSISOrdered By: Dinah murray on 05-11-2023 Bacteria [...] PM) Normal Negative [facility] UA Auto SS [place].plasma/Lith ium.RBC (Bld) [Mass ratio] 0-3 /HPF Normal [...] Desc Clean Catch (05/11/23 12:05 PM) Normal [facility] UA Auto SS Urobilinogen Qn (U) 0.9437542 {Leon'U}/dL Normal 0.0 - 1.0 EU/dL FT UA Auto SS WBC Auto Ql (U) 1+ *ABN* (05/11/23 12:05 PM) Invalid Interpretation Code Negative [facility] UA Auto SS WBC LM.HPF (Urine sed) [#/Area] 0-5 /HPF Normal 0-5/HPF [facility] UA Auto SS eGFRon 05-11-2023 GFR/1.73 sq M.predicted among non-blacks MDRD (S/P/Bld) [Vol rate/Area] 44 mL/min/1.73 m2 Low >=[address] [facility] Comment on above: Order Comment: Order added by Discern Expert. Result Comment: Storage Management Consultant sommer kidney disease could be indicated at eGFR's of less than 60 mL/min/1.73m2. Kidney failure is indicated at less than 15 mL/min/1.73m2. Performed By: #### 2 113688, 6141533, 5672182, 9550098, 3153563, 64976462 ####[facility] [address] [place] [address] Outside Mammographyon 2022 Outside Mammography [id number] 0CD:[address] [facility] Consultation Noteon 02-02-20 Consultation Note [id number] 0CD:[address] [facility] Family Medicine Office/Clini c Noteon [...] were not effective. The patient saw her staff radiation therapist for her annual checkup and was diagnosed with glaucoma. She underwent laser treatment of bilateral eyes. She has a follow-up appointment with him next week. The patient states that for the last 3 years, she has been seeing double out of her left eye. Her staff radiation therapist informed her that it was ghost shadows. [...] Anthony Humphrey to record this visit. YAA health promotion specialist and provider reviewed before signing. YAA: [...] mg Tab, (more content not included)... Normal [facility] Comment on above: Result Comment: Elec tronically Signed By: Job Alvarado MD\.br\Date and Time Signed: 12/02/22 13:01 EDT\.br\Electronically Co-Signed By: Angeline Wong\.br\Date and Time Co-Signed: 12/01/22 16:53 EDT Patient [facility] 11-15-2022 Patient Logs [id number] CD:[address] [facility] Patient [place]son 11-03-2022 Patient Logs [id number] 0CD:[address] [facility] CULTURE URINEon 07-06-2022 CULTURE URINE Culture Observations : LIGHT GROWTH OF MIXED GENITAL NAN. NO POTENTIAL PATHOGENS SEEN. Normal [facility] Comment on above: Performed By: #### U RCX #### [facility] [address] [place] [address] Dr. Melchor Brock UA (CLEAN/CATCH) MICROSCOPIC IF INDICATEon 07-06-2022 Bilirubin Ql (U) Negative Normal NEGATIVE [facility] Comment on above: Performed By: #### U MICRO, UARMICR #### [facility] [address] [place] [address] Dr. Melchor Brock Clarity (U) CLEAR Normal CLEAR [facility] Comment on above: Performed By: #### U MICRO, UARMICR #### [facility] [address] [place] [address] Dr. Melchor Brock Color (U) LT. YELLOW Normal YELLOW [facility] Comment on above: Performed By: #### U MICRO, UARMICR #### [facility] [address] [place] [address] Dr. Melchor Brock Glucose Ql (U) Negative Normal NEGATIVE [facility] Comment on above: Performed By: #### U MICRO, UARMICR #### [facility] [address] [place] [address] Dr. Melchor Brock Hemoglobin Ql (U) TRACE-INTACT Abnormal NEGATIVE [facility] Comment on above: Performed By: #### U MICRO, UARMICR #### [facility] [address] [place] [address] Dr. Melchor Brock Ketones Ql (U) Negative Normal NEGATIVE [facility] Comment on above: Performed By: #### U MICRO, UARMICR #### [facility] [address] [place] [address] Dr. Melchor Brock LEUKOCYTES TRACE Abnormal NEGATIVE [facility] Comment on above: Performed By: #### U MICRO, UARMICR #### [facility] [address] [place] [address] Dr. Melchor Brock Nitrite Ql (U) Negative Normal NEGATIVE [facility] Comment on above: Performed By: #### U MICRO, UARMICR #### [facility] [address] [place] [address] Dr. Melchor Brock pH (U) 6.0 [pH] Normal 5-9 [facility] Comment on above: Performed By: #### U MICRO, UARMICR #### [facility] [address] [place] [address] [address] Melchor Brock SPEC GRAVITY 1.020 Normal 1.005-<=1.025 [facility] Comment on above: Performed By: #### U MICRO, UARMICR #### [facility] [address] [place] [address] [address] Melchor Brock UA PROTEIN Negative Normal NEGATIVE/ TRACE [facility] Comment on above: Performed By: #### U MICRO, UARMICR #### [facility] [address] [place] [address] [address] Melchor Brock UR MICRO IND INDICATED Normal [facility] Comment on above: Performed By: #### U MICRO, UARMICR #### [facility] [address] [place] [address] Dr. Melchor Brock Urobilinogen Qn (U) 0.2 {Leon'U}/dL Normal 0.2 - 1. 0 [facility] Comment on above: Performed By: #### U MICRO, UARMICR #### [facility] [address] [place] [address] Dr. Melchor Brock URINE MICROSCOPIC ONLYon BACTERIA NONE SEEN Normal NONE SEEN [facility] Comment on above: Performed By: #### G SHON, LIPID #### [facility] [address] [place] [address] Dr. Melchor Brock Bacteria identified Cx Nom (U) CX ALREADY ORDERED Normal [facility] Comment on above: Performed By: #### G SHON, LIPID #### [facility] [address] [place] [address] Dr. Melchor Brock CAST NONE SEEN Normal NONE SEEN [facility] Comment on above: Performed By: #### G SHON, LIPID #### [facility] [address] [place] [address] Dr. Melchor Brock Crystals LM Nom (Urine sed) NONE SEEN Normal NONE SEEN [facility] Comment on above: Performed By: #### G SHON, LIPID #### [facility] [address] [address] [address] Melchor Brock Epithelial cells LM Ql (Urine sed) RARE Normal NONE SEEN /RARE [facility] Comment on above: Performed By: #### G SHON, LIPID #### [facility] [address] [address] [address] Melchor Brock MUCOUS NONE SEEN Normal NONE SEEN [facility] Comment on above: Performed By: #### G SHON, LIPID #### [facility] [address] [address] [address] Melchor Brock RBC 0-2 Normal 0-2 [facility] Comment on above: Performed By: #### G SHON, LIPID #### [facility] [address] [address] [address] Melchor Brock WBC 0-2 Abnormal NONE SEEN [facility] Comment on above: Performed By: #### G SHON, LIPID #### [facility] [address] [address] [address] Melchor Brock MG MAMM SCREEN 3D SARAHI CADon 03-15-2022 MG MAMM SCREEN 3D SARAHI CAD Patient: ISAURA RIVERA Exam Date: 03/15/2022 : 1950 Gender:F Ordering : DR FARA RICHARDSON . Admission #: [id number] Family : Order #: [id number] CLICK HERE TO VIEW EXAM RADIOLOGY REPORT [...] lung cancer at age 72. LOCATION: [facility] BREAST COMPOSITION: Heterogeneously dense,which may obscure small [...] Conley M.D. on 03/15/2022 at 11:41 Normal [facility] GLUCOSE BLOODon 02-09-2022 Glucose [Mass/Vol] 99 mg/dL Normal 74-106 [facility] Comment on above: Performed By: #### G SHON, LIPID #### [facility] [address] [address] [address] Melchor Brock LIPID PROFILEon 02-09-2022 CHOL-HDL RATIO NORM SEE BELOW Normal [facility] Comment on above: Result Comment: 3.3 - 4.4 LOW RISK 4.4 - 7.1 AVERAGE RISK 7.1 - 11.0 MODERATE RISK >11.0 HIGH RISK Performed By: #### G SHON, LIPID #### [facility] [address] [address] [address] Melchor Brock Cholesterol [Mass/Vol] 202 mg/dL Critically high <=200 [facility] Comment on above: Performed By: #### G SHON, LIPID #### [facility] [address] [address] [address] Melchor Brock Cholesterol in HDL [Mass/Vol] 56 mg/dL Normal 40-60 [facility] Comment on above: Performed By: #### G SHON, LIPID #### [facility] [address] [address] [address] Melchor Brock Cholesterol in LDL [Mass/Vol] 112.6 mg/dL Normal [facility] Comment on above: Performed By: #### G SHON, LIPID #### [facility] [address] [address] [address] Melchor Brock Cholesterol.total/C holesterol in HDL [Mass ratio] 3.6 {ratio} Normal [facility] Comment on above: Performed By: #### G SHON, LIPID #### [facility] [address] [address] [address] Melchor Brock HDL NORMAL > or = 60 mg/dl - LO W CARDIOVASCULAR RISK <40 mg/dl - HIGH CARDIOVASCULAR RISK Normal [facility] Comment on above: Performed By: #### G SHON, LIPID #### [facility] [address] [place] [address] Dr. Melchor Brock LDL CALC NORMAL SEE BELOW Normal [facility] Comment on above: Result Comment: <100 mg/dl OPTIMAL 100 - 129 mg/dl NEAR OR ABOVE OPTIMAL 130 - 159 mg/dl BORDERLINE HIGH 160 - 189 mg/dl HIGH >190 mg/dl VERY HIGH Performed By: #### G SHON, LIPID #### [facility] [address] [place] [address] Dr. Melchor Brock Triglyceride [Mass/Vol] 167 mg/dL Critically high <=150 [facility] Comment on above: Performed By: #### G SHON, LIPID #### [facility] [address] [place] [address] Dr. Melchor Brock VLDL CALC 33.4 mg/dL Normal [facility] Comment on above: Performed By: #### G SHON, LIPID #### [facility] [address] [place] [address] Dr. Melchor Brock LIPID PROFILEon 11-05-2021 CHOL-HDL RATIO NORM SEE BELOW Normal [facility] Comment on above: Result Comment: 3.3 - 4.4 LOW RISK 4.4 - 7.1 AVERAGE RISK 7.1 - 11.0 MODERATE RISK >11.0 HIGH RISK Performed By: #### L IPID, BMP #### [facility] [address] [place] [address] Dr. Melchor Brock Cholesterol [Mass/Vol] 244 mg/dL Critically high <=200 [facility] Comment on above: Performed By: #### L IPID, BMP #### [facility] [address] [place] [address] Dr. Melchor Brock Cholesterol in HDL [Mass/Vol] 60 mg/dL Normal 40-60 [facility] Comment on above: Performed By: #### L IPID, BMP #### [facility] [address] [place] [address] Dr. Melchor Brock Cholesterol in LDL [Mass/Vol] 158.4 mg/dL Normal [facility] Comment on above: Performed By: #### L IPID, BMP #### [facility] [address] [address] [address] Melchor Brock Cholesterol.total/C holesterol in HDL [Mass ratio] 4.1 {ratio} Normal [facility] Comment on above: Performed By: #### L IPID, BMP #### [facility] [address] [address] [address] Melchor Brock HDL NORMAL > or = 60 mg/dl - LO W CARDIOVASCULAR RISK <40 mg/dl - HIGH CARDIOVASCULAR RISK Normal [facility] Comment on above: Performed By: #### L IPID, BMP #### [facility] [address] [place] [address] Dr. Melchor Brock LDL CALC NORMAL SEE BELOW Normal [facility] Comment on above: Result Comment: <100 mg/dl OPTIMAL 100 - 129 mg/dl NEAR OR ABOVE OPTIMAL 130 - 159 mg/dl BORDERLINE HIGH 160 - 189 mg/dl HIGH >190 mg/dl VERY HIGH Performed By: #### L IPID, BMP #### [facility] [address] [place] [address] Dr. Melchor Brock Triglyceride [Mass/Vol] 128 mg/dL Normal <=150 [facility] Comment on above: Performed By: #### L IPID, BMP #### [facility] [address] [place] [address] Dr. Melchor Brock VLDL CALC 25.6 mg/dL Normal [facility] Comment on above: Performed By: #### L IPID, BMP #### [facility] [address] [place] [address] Dr. Melchor Brock PROF CHEM 8 (BAS METB)on Anion gap [Moles/Vol] 10.7 mmol/L Normal [facility] Comment on above: Performed By: #### L IPID, BMP #### [facility] [address] [place] [address] Dr. Melchor Brock Calcium [Mass/Vol] 7.8 mg/dL Critically low 8.4-10.2 [facility] Comment on above: Performed By: #### L IPID, BMP #### [facility] [address] [address] [address] Melchor Brock Chloride [Moles/Vol] 103 mmol/L Normal 98-107 [facility] Comment on above: Performed By: #### L IPID, BMP #### [facility] [address] [address] [address] Melchor Brock CO2 [Moles/Vol] 28.4 mmol/L Normal 22.0-30.0 [facility] Comment on above: Performed By: #### L IPID, BMP #### [facility] [address] [address] [address] Melchor Brock Creatinine [Mass/Vol] 1.05 mg/dL Critically high 0.52-1.04 [facility] Comment on above: Performed By: #### L IPID, BMP #### [facility] [address] [place] [address] Dr. Melchor Brock EGFR-AF SALVADOREAN >60 Normal >=60 [facility] Comment on above: Performed By: #### L IPID, BMP #### [facility] [address] [place] [address] Dr. Melchor Brock EGFR-NON AF SALVADOREAN 52 mL/min/1.73m2 Critically low >=60 [facility] Comment on above: Performed By: #### L IPID, BMP #### [facility] [address] [place] [address] Dr. Melchor Brock Glucose [Mass/Vol] 98 mg/dL Normal 74-106 [facility] Comment on above: Performed By: #### L IPID, BMP #### [facility] [address] [address] [address] Melchor Brock Potassium [Moles/Vol] 4.1 mmol/L Normal 3.4-5.0 [facility] Comment on above: Performed By: #### L IPID, BMP #### [facility] [address] [address] [address] Melchor Brock Sodium [Moles/Vol] 138 mmol/L Normal 137-145 [facility] Comment on above: Performed By: #### L IPID, BMP #### [facility] [address] [place], [place] [address] Dr. Melchor Brock Urea nitrogen [Mass/Vol] 15.0 mg/dL Normal 7.0-17.0 [facility] Comment on above: Performed By: #### L IPID, BMP #### [facility] [address] [place], [place] [address] Dr. Melchor Brock Urea nitrogen/Creatinine [Mass ratio] 14.3 mg/mg Normal [facility] Comment on above: Performed By: #### L IPID, BMP #### [facility] [address] [place], [place] [address] Dr. Melchor Brock ECHOCARDIO M/2D COMPLETEon 0 10-05-2021 ECHOCARDIO M/2D COMPLETE Patient: ISAURA RIVERA Exam Date: 10/05/2021 : 1950 Gender:F Ordering : DR ANJELICA GAMBINO . Admission #: [id number] Family : Order #: [id number] CLICK HERE TO VIEW EXAM ECHOCARDIOGRAM REPORT [...] Area(A4C): 20.70 cm2 Left Atrium Systolic Volume(A2C): 71818 mm3 Left Atrium Systolic Volume(A4C): 00949 mm3 Mitral Valve MV E to A Ratio: 1.10 Deceleration [place]: 7410 mm/s2 Mitral Valve A-Wave Peak Velocity: [...] Coy Dove M.D. on 10/06/2021 at 08:32 [facility] XR DEXA BONE DENSITYon 09-18 XR DEXA [...] by: KVNG TILLMAN Date: 2021-09-18 10:56 Normal [facility] DEXA BONE DENSITY AXIAL SKEL ETONon 09-12-2017 [...] both femoral necksInterpreted by:ARLEY Valenciaigned by:Lora Mondragon MD09/12/18Final result [facility] DIGITAL SCREEN BILATERAL on 09-12-2017 [facility] DIGITAL SCREEN BILATERAL REPORT: BILATERAL DIGITAL SCREENING MAMMOGRAM WITH ASSISTANCE OF CADINDICATION: ScreeningFINDINGS: Compared to 07/30/2016, 04/17/2015, 04/16/2014, 10/26/2011 and 06/09/2010. The breasts are heterogeneously dense. No suspicious calcifications, mass lesions, architectural distortion or skin thickening.Final report electronically signed by Lora Mondragon on 09/12/2017 5:38 PMIMPRESSION: No mammographic evidence of malignancy. (CATEGORY 1 - ACR BI-RADS: NEGATIVE)Interpreted by:ARLEY Valenciaigned by:Lora Mondragon MD09/12/18Final result [facility] Encounters Encounter Date Encounter Type Care Provider Facility Start: 07-30-2024 ambulatory Job Alvarado Facility :[facility] Start: 08-25-2023 End: 08-25-2023 ambulatory NETO HERBERT Not Available Start: 08-11-2023 End: 08-12-2023 ambulatory Job Alvarado [facility]: [facility] [place] [facility] Start: 07-27-2023 End: 07-27-2023 ambulatory ARIEL DAS Not Available Start: 06-13-2023 End: 06-14-2023 ambulatory Job Alvarado Facility: [facility] [place] [facility] Start: 05-30-2023 End: 05-31-2023 ambulatory Job Alvarado Facility: [facility] [place] [facility] Start: 05-30-2023 End: 05-31-2023 ambulatory Job Alvarado Facility: [facility] [place] [facility] Start: 05-11-2023 End: 05-12-2023 ambulatory Violet L Leonidas [facility] Start: 05-11-2023 End: 05-11-2023 Lab Drop off Violet Alonzo [facility] Start: 12-01-2022 End: 12-02-2022 ambulatory Job Alvarado Facility: [facility] [place] [facility] Start: 10-28-2022 ambulatory Job Alvarado Facility:[facility] Start: 08-03-2022 End: 08-04-[address] ANJELICA GAMBINO Facility:[facility] Start: 07-06-2022 End: 07-07-[address] ANJLEICA GAMBINO Facility:[facility] Start: 03-15-2022 End: 03-16-[address] ANJELICA GAMBINO Facility:[facility] Start: 02-09-2022 End: 02-10-[address] ANJELICA GAMBINO Facility:[facility] Start: 11-05-2021 End: 11-06-[address] ANJELICA GAMBINO Facility:[facility] Start: 10-05-2021 End: 10-06-[address] ANJELICA GAMBINO Facility:[facility] Start: 09-18-2021 End: 09-19-[address] ANJELICA GAMBINO Facility:[facility] Start: 09-08-2021 End: 09-09-[address] ANJELICA GAMBINO Facility:[facility] Start: 09-12-2017 End: 09-13-2017 Ambulatory FARA RICHARDSON [facility] Procedures Date Procedure Procedure Detail Performing Clinician Start: 09-12-2017 Screening mammograph y bi 2-view breast inc cad FARA RICHARDSON Start: 09-12-2017 Dxa bone density jeanne dy 1/> sites axial skel FARA RICHARDSON Cholecystectomy Violet Owlin Comment on above: bile duct surgery Colonoscopy [employer] Comment on above: 2012 normal Laser device (physic al object) [employer] Comment on above: eye Immunizations Immunization Date Immunization Notes Care Provider Jailyn martinez NEGATED: Highlighted row has not occurred!12-01-2022 SARS-CoV-2 mRNA (tozinameran 5y-11y) vaccine [facility] Payers Date Payer Category Payer Unknown [id number] 2014 Medicare [id number] 1957 Unknown [id number] 1950 Unknown [id number] 2.16.84 0.1.730439.3.579.2.593 1950 Unknown [id number] 2.16.84 0.1.134106.3.579.2.593 1950 Unknown [id number] 2.16.84 0.1.125249.3.579.2.593 1950 Unknown [id number] 2.16.84 0.1.471809.3.579.2.593 1950 Unknown [id number] 2.16.84 0.1.428433.3.579.2.593 1950 Unknown [id number] 2.16.84 0.1.487557.3.579.2.593 1950 Unknown [id number] 2.16.84 0.1.150447.3.579.2.593 1950 Unknown [id number] 2.16.84 0.1.015085.3.579.2.593 1950 Unknown [id number] 2.16.8 40.1.438474.3.579.2.727 1950 Unknown [id number] 2.16.8 40.1.989695.3.579.2.727 1950 Unknown [id number] 2.16.8 40.1.877184.3.579.2.727 1950 Unknown [id number] 2.16.8 40.1.467409.3.579.2.727 1950 Unknown [id number] 2.16.8 40.1.010413.3.579.2.727 1950 Unknown [id number] 2.16.8 40.1.998416.3.579.2.727 1950 Unknown [id number] 2.16.8 40.1.965107.3.579.2.727 1950 Unknown [id number] 2.16.8 40.1.431588.3.579.2.727 1950 Unknown [id number] 2.16.8 40.1.315629.3.579.2.727 1950 Unknown [id number] 2.16.8 40.1.613784.3.579.2.727 1950 Unknown [id number] 2.16.8 40.1.101290.3.579.2.727 1950 Unknown [id number] 2.16.840 .1.222864.3.579.2.1259 1950 Unknown [id number] 2.16.840 .1.686952.3.579.2.1259 Unknown [id number] Social History Date Type Detail Facility Start: 05-11-2023 Tobacco smoking status [facility] Sex Assigned At Female [facility] Clinical Note 08-11-2023 Note Date & Type Note Facility 08-11-2023 Note Procedures Choosing a Surgeon When you need to have surgery, choosing the right surgeon is very important. With any surgery, serious complications can occur. You will want to choose a surgeon who performs well and has low complication rates. To become a surgeon, a health care provider must go through years of additional training. Even more training may be required if a surgeon wants to specialize in a particular type of surgery. Make sure any surgeon you are considering is trained to do the type of procedure you need. Begin by asking your primary health care provider to recommend surgeons for the procedure. Then do some research on your own to make sure you find the surgeon that is right for you. Follow these instructions at home: Step 1: Check your insurance Check with your insurance carrier to make sure a surgeon's services will be covered. Step 2: Research the surgeons Do some research on the surgeons you are considering. Be sure to check whether a surgeon: ? Is certified by the [place] [employer]. To be board certified, a surgeon must go through an approved residency training program and pass a comprehensive exam. You can check your surgeon's board certification at www.abms.org/verify-certification/ ? Has had any problems with state licensing authorities. You can check whether a surgeon has had malpractice claims or other professional problems by going to your state medical board at www.fsmb.org/xyeefwb-n-tmtpw-medical-boa rd/ ? Has good ratings from other patients and providers. You may be able to get a consumer rating on your surgeon at www.checkbook.org/surgeonratings/ Step 3: Research the hospital or clinic ? Ask where the surgeon does surgery and find out about the hospital or outpatient clinic where the procedure will be done. ? Call the facility to ask about their accreditation. ? Make sure a hospital is accredited by the Joint Commission. ? Make sure an outpatient surgery center is accredited by the Joint Commission or the Accreditation Association for Ambulatory Health Care. Step 4: Meet with the surgeon Set up an appointment to meet the surgeon. Have a list of questions ready: ? Are you specially trained to do this surgery? ? How often do you do this surgery? How many of these surgeries have you done? ? What complications have you had? ? What are the risks and benefits of this surgery? ? Can my surgery be done less invasively with laparoscopic surgery? ? Where would the surgery be done? ? What type of anesthesia will I need? ? Will you do the surgery yourself, or will you be supervising a resident surgeon in training? ? Do you mind if I get a second opinion? ? Who will be covering for you if you are not available in an emergency? Step 5: Evaluate the surgeon After visiting a surgeon's office and meeting the staff and the surgeon, take some time to think about your impressions. Ask yourself: ? Did I feel comfortable with this surgeon? ? Would I feel comfortable asking questions about my care? ? Did the surgeon answer all my questions? ? Was the staff friendly and efficient? Step 6: Meet with other surgeons if needed If you did not feel comfortable with a surgeon you met, make an appointment to meet with another surgeon on your list. You can also add to your list by asking your surgeon's board of specialty to recommend other board-certified surgeons in your area. Even when you think you have found the right surgeon, it is still a good idea to get a second opinion. Check with your insurance company to see if they will pay for a second opinion from a different surgeon. Summary ? Choosing the right surgeon is important when you need surgery. ? Make sure your surgeon is trained to do the type of surgery you need. ? Check that any surgeon you are considering is certified by the [place] [employer]. ? Meet with the surgeon before scheduling a procedure, and have a list of questions prepared. Try another surgeon if you do not feel comfortable for any reason. ? Always consider getting a second opinion. This information is not intended to replace advice given to you by your health care provider. Make sure you discuss any questions you have with your health care provider. Document Revised: 10/19/2021 Document Reviewed: 10/19/2021 Elsevier Patient Education ? 2022 [email or web address] [facility] Clinical Note 08-05-2022 Note Date & Type [...] authenticated by: TAMIR CONLEY Date: 2022-08-04 22:03 [facility] Evaluation + Plan note Note Date & Type Note Facility Evaluation + Plan note Future Appointments Appointment Date:05/30/2023 02:00:00 PM Scheduled Provider: Location:[facility] Appointment Type: Medicare Wellness Subsequent Appointment Date:05/30/2023 02:40:00 PM Scheduled Provider:Job Alvarado MD Location:[facility] Appointment Type: Open Diagnostic Tests PendingUrine Culture 05/11/23 [facility] Hospital course Narrative Note Date & Type Note Facility Hospital course Narrative No data available for this section [facility] Hospital Discharge instructions Note Date & Type Note Facility Hospital Discharge instructions No data available for this section [facility] Progress note Note Date & Type Note Facility Progress note No data available for this section [facility] Summary Purpose Family History No Family History Records FoundNo Family History Records FoundNo Family History Records FoundNo Family History Records Found Advance Directives No Advanced Directives Records FoundNo Advanced Directives Records FoundNo Advanced Directives Records FoundNo Advanced Directives Records Found Additional Source Comments INFORMATION SOURCE (unrecogn ized section and content) DATE CREATED [facility] DATE CREATED AUTHOR AUTHOR'S ORGANIZ ATION 08/12/2022 [facility] DATE CREATED AUTHOR AUTHOR'S ORGANIZ ATION 08/25/2023 [facility] DATE CREATED AUTHOR AUTHOR'S ORGANIZ ATION 08/27/2023 [facility] EPIC Patient Care team informatio n (unrecognized section and content) Personnel Name: Job Alvarado MD Address: Address: [address] FOR RECORDS PERTAINING TO PATIENTS WHO [...] BE BASED ON THE PRIMARY CLINICAL RECORDS. [facility]. provides no warranty or guarantee of the accuracy or completeness of information in this document.
--- NOTE | 2023-09-20 09:52 | XR_ITS ---
[place] [id number] Patient Name: PAPITO HAYDEN MRN: [id number] date: 1950 Sex: F Assigned Patient Location: [facility] Current Patient Location: [facility] Accession/Order Number: [id number] Exam Date: 09/20/2023 10:00 Report Date: 09/20/2023 10:23 At the request of: SUNG COPELAND Procedure: XR DEXA axial skeleton EXAMINATION: XR DEXA axial skeleton, 09/20/2023 10:00 AM EST HISTORY: Disorder Of Bone And Structure M85.8 COMPARISON: 2019. TECHNIQUE: Dual-energy X-ray absorptiometry (DEXA) bone density study performed for the axial skeleton. HISTORY: Disorder Of Bone And Structure M85.8 FINDINGS: Bone mineral density AP spine L1-L4 measures 1.366 g/sq cm. Young adult T score 1.5. WHO classification: Normal. Lowest bone mineral density right femoral neck measuring 0.81 g/sq cm. T score -1.6. WHO classification: Osteopenia XR/XR DEXA axial skeleton IMPRESSION: Osteopenia. Moderate fracture risk Electronically authenticated by: KVNG TILLMAN Date: 09/20/2023 10:23
== END 2023-09-20 09:47 | disposition home or self-care (01) ==
LOC: RAD 09:46
PROVIDERS: PCP Family Medicine; Visit Provider Podiatrist Foot & Ankle Surgery
DX: M81.0 Age-related osteoporosis without current pathological fracture (principal); M85.80 Other specified disorders of bone density and structure, unspecified site
CPT/HCPCS: 77080

== ENCOUNTER 2023-09-27 09:23 | Outpatient (OUT) | payer MEDICARE, SELFPAY ==
--- NOTE | 2023-09-27 | XR_ITS ---
The [address] [address] Patient Name: PAPITO HAYDEN MRN: [id number] date: 1950 Sex: F Assigned Patient Location: [facility] Current Patient Location: [facility] Accession/Order Number: [id number] Exam Date: 09/27/2023 09:25 Report Date: 09/27/2023 13:14 At the request of: SUNG COPELAND Procedure: XR foot LT min 3V PROCEDURE: XR foot LT min 3V HISTORY: LEFT FOOT PAIN ; chronic pain across base of second third metatarsals COMPARISON: XR foot left 08/09/2023, 06/29/2023 FINDINGS: BONES:No displaced fracture of the second metatarsal at the proximal diametaphyseal junction with callus formation along the margins and persistent lucency at site of fracture. SOFT TISSUES:No visible soft tissue swelling. EFFUSION:None visible. OTHER: Negative. XR/XR foot LT min 3V IMPRESSION: 1. 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 No appreciable change compared to prior studies. Electronically authenticated by: ALAN CÁRDENAS Date: 09/27/2023 13:14
--- OUTSIDE RECORDS SUMMARY | 2023-09-27 09:27 | XMS_ITS | CCD ---
Author Name Unknown Address [address] [place] [address] Organization [facility] Care Team Providers Care Clinical Analyst Name Role Phone FARA RICHARDSON Unavailable Unavailable GAMBINO, ANJELICA Bergeron Unavailable Unavailable KARFARA ETE Unavailable Unavailable GAMBINO, ANJELICA Bergeron Unavailable Unavailable [...] Consulting Unavailable Job Alvarado. Primary Care Physician [phone] NETO HERBERT Attending Unavailable ARIEL DAS Attending Unavailable DOTTY Lauren Attending Unavailable MD Job Alvarado Attending Unavailable MD Job Alvarado Attending Unavailable MD Job Alvarado Attending Unavailable MD Job Alvarado Attending Unavailable MD Job Alvarado Attending Unavailable MD Job Alvarado Attending Unavailable MD Job Alvarado Attending Unavailable DOTTY Lauren Attending Unavailable DOTTY Lauren Admitting Unavailable MD Job Alvarado Admitting Unavailable MD Job Alvarado Attending Unavailable VIPUL OBANDO Attending Unavailable Allergies Allergy Classification Reported Allergen(s) Allergy Type Date of Onset Reaction(s) Facility (2 sources) atorvastatin; Translations: [atorvastatin] Drug Allergy Unknown (qualifier value) [facility] (2 sources) HYDROmorphone; Translations: [hydromorphone] Drug Allergy Unknown (qualifier value) [facility] (2 sources) Pyrilamine; Translations: [pyrilamine] Drug Allergy Unknown (qualifier value) [facility] (1 source) No Known Medication Allergies; Translations: [No Known Medication Allergies] Propensity to adverse reactions (disorder) [facility] Repository Medications Current Medications Medication Drug Class(es) [...] BID, # 180 tab(s), Refills(s) 0, Pharmacy: [facility] [id number], 162, cm, 05/11/23 9:36:00 EDT, Height/Length Dosing, 74.9, kg, 05/11/23 9:36:00 EDT, Weight Dosing Start Date: 05/11/23 Status: Ordered meloxicam 15 mg oral tablet (1 source) Nonsteroidal Anti-inflammatory Drug Start: 02-27-2023 take 1 tablet by mouth once daily as needed meloxicam 15 mg Tab See Instructions, TAKE ONE TABLET BY MOUTH DAILY NEEDED, # 90 tab(s), Refills(s) 0, Pharmacy: [facility] [id number], 162.6, cm, 12/01/22 15:23:00 EDT, Height/Length Dosing, 76.5, kg, 12/01/22 15:23:00 EDT, Weight Dosing Start Date: 02/27/23 Status: Ordered rosuvastatin calcium 20 mg oral tablet (1 source) HMG-CoA Reductase Inhibitor Start: 02-27-2023 take 1 tablet by mouth once daily rosuvastatin 20 mg Tab See Instructions, TAKE ONE TABLET BY MOUTH DAILY, # 90 tab(s), Refills(s) 0, Pharmacy: [facility] [id number], 162.6, cm, 12/01/22 15:23:00 EDT, Height/Length Dosing, [...] Interpretation Reference Range Facil ity Consultation Noteon 09-21-19 Consultation Note [id number]#1.0 0TIFF Normal [facility] Dexa Scanson 09-21-2023 Dexa Scans [id number]#1.0 0TIFF Normal [facility] Consultation Noteon 09-12-19 Consultation Note [id number]#1.00 TIFF Normal [facility] Patient Logson 09-02-2023 Patient Logs [id number]#1.00 TIFF Normal [facility] Ambulatory Visit Summaryon 0 09-01-2023 Ambulatory Visit Summary ISAURA RIVERA :1950 Visit Date:09/01/2023 Ambulatory Visit Instructions Your Diagnosis Hypertension Chronic kidney disease, stage 3a Your Care Team Attending Physician - VIPUL OBANDO CNP Primary Care Physician - Job Alvarado MD This Is Your Medications List amlodipine (amLODIPine 5 mg Tab) aspirin (aspirin 81 mg oral capsule) calcium-vitamin D glucosamine (glucosamine hydrochloride 1500 mg oral tablet) losartan (losartan 100 mg Tab) omega-3 polyunsaturated fatty acids (omega-3 polyunsaturated fatty acids 500 mg oral capsule) rosuvastatin (rosuvastatin 20 mg Tab) tafluprost ophthalmic (Zioptan 0.0015% ophthalmic solution) vitamin E vitamin E (vitamin E 450 mg oral capsule) Procedures Performed Cholecystectomy, Colonoscopy, Laser. Discharge Vitals Heart Rate (Peripheral) 60 Blood Pressure 134/70 Height 64 in Height 162 cm Weight 167.2 lb Weight 76.0 kg BMI 28.96 What to do next Scheduled Follow-Up Appointments Tuesday 10:30 AM EST With: Job Alvarado MD Where: [facility] [address] [place] [address]- \.br\ Medications\.br\ What How Much When Instructions\.br\ [...] 1 Tablets By Mouth Every day\.br\ Unchanged omega-3 polyunsaturated fatty acids (omega-3 polyunsaturated fatty acids 500 mg oral capsule) 1 Capsules By Mouth Every day\.br\ Unchanged rosuvastatin (rosuvastatin 20 mg Tab) See instructions TAKE 1 TABLET BY MOUTH DAILY \.br\ Unchanged tafluprost ophthalmic (Zioptan 0.0015% ophthalmic solution) See instructions 1 drop(s) Eye-Right & Left once daily \.br\ Unchanged vitamin E\.br\ Unchanged vitamin E (vitamin E 450 mg [...] stage 3a chronic kidney disease\.br\ Postmenopause bleeding\.br\ Pre-op exam\.br\ Right sided abdominal pain\.br\ TIA (transient ischemic attack)\.br\ Patient Survey\.br\ You may receive a survey via text or e-mail asking about your office visit. Please share your experience with us by completing your survey. We appreciate your feedback and thank you for choosing us for your care.\.br\ \.br\ [facility] Consultation Noteon 09-01-19 Consultation Note [id number]#1.0 0TIFF Normal [facility] Family Medicine Office/Clini c Noteon 09-01-2023 Family Medicine Office/Clinic Note Chief Complaint high blood pressure HPI Staff Dr. Alvarado patient presents for high blood pressure. Patient is here for follow up on hypertension. How often are you checking your blood pressure? _ prn What are your average readings? _ see list Do you have any of the following symptoms? Chest Pain? no Palpitations? no MALONE/SOB? no Headache? no Peripheral Edema? no Light Headedness? no Yearly BMP: _ Laboratory Results CBC CMP Basophil Absolute: 0 E9/L (05/11/23) A/G Ratio: 1.3 (05/11/23) Basophil Auto: 0.8 % (05/11/23) AGAP: 10 mEq/L (05/11/23) Eos Absolute: 0.3 E9/L (05/11/23) Albumin Lvl: 4.3 gm/dL (05/11/23) Eos Auto: 5.2 % (05/11/23) Alk Phos: 46 Int._Unit/L (05/11/23) Hct: 34.9 % (05/11/23) ALT: 16 Int._Unit/L (05/11/23) HGB: 11.8 gm/dL Low (05/11/23) AST: 23 Int._Unit/L (05/11/23) Lymph Absolute: 1.8 E9/L (05/11/23) Bili Total: 0.6 mg/dL (05/11/23) Lymph Auto: 31.3 % (05/11/23) BUN: 21 mg/dL (05/11/23) MCH: 32.6 pg (05/11/23) BUN/Creat Ratio: 16 (05/11/23) MCHC: 33.9 gm/dL (05/11/23) Calcium Lvl: 9.5 mg/dL (05/11/23) MCV: 96.3 fL (05/11/23) Chloride: 108 mmol/L (05/11/23) Throckmorton Absolute: 0.4 E9/L (05/11/23) CO2: 27 mmol/L (05/11/23) Throckmorton Auto: 7.8 % (05/11/23) Creatinine: 1.3 mg/dL (05/11/23) MPV: 8.2 fL (05/11/23) Globulin: 3.2 gm/dL (05/11/23) Neutro Absolute: 3.1 E9/L (05/11/23) Glucose Lvl: 93 mg/dL (05/11/23) Neutro Auto: 54.9 % (05/11/23) Potassium Lvl: 4.3 mmol/L (05/11/23) Platelet: 275 E9/L (05/11/23) Sodium Lvl: 141 mmol/L (05/11/23) RBC: 3.6 E12/L Low (05/11/23) Total Protein: 7.5 gm/dL (05/11/23) RDW: 12.9 % (05/11/23) WBC: 5.6 E9/L (05/11/23) eGFR: 44 mL/min/1.73 m2 Low (05/11/23 10:16:00) Creatinine: 1.3 mg/dL (05/11/23 10:16:00) This morning felt like she was having jaw and throat swelling. Took blood pressure this am when feeling that 132/99. Blood pressures kept increasing. Patient denies any other cardiac symptoms. History of Present Illness 73 year old female patient of Dr. Alvarado presents today for elevated B/P. Patient states she got up this am and felt like she had throat swelling and jaw tightness. She took her blood pressure and it was elevated >140 systolic and > 80 diastolic. She reports she has been worried about her recent female surgery and she was suppose to have a tele-visit yesterday and she did not which caused her some stress. She states she has been eating a great deal of sauerkraut and drinking sweet tea. She denies dizziness, headache, vision changes, chest pain or heart palpitations. She reports she took the losaratan this AM and her b/p is 142/70. Her blood pressure was rechecked and it is 134/70. Review of Systems PHQ Score Initial Depression Screen Score: 0 SCORE Constitutional: no fever, no chills, no sweats, no weakness Respiratory: no shortness of breath, no cough, no orthopnea, no wheezing Cardiovascular: no chest pain, no palpitations, no edema Additional ROS info: Except as noted in the above Review of Systems and in the History of Present Illness all other systems have been reviewed and are negative or noncontributory. Physical Exam Vitals & Measurements HR: 60(Peripheral) BP: 134/70 SpO2: 99% HT: 64 in HT: 162 cm WT: 76.0 kg WT: 167.2 lb BMI: 28.96 General: alert, no acute distress ENMT: TM's clear, oral mucosa moist, no pharyngeal erythema or exudate Cardiovascular: regular rate and rhythm, normal peripheral perfusion Respiratory: Lungs CTA, respirations non labored Extremities: no deformity, no trauma Neurological: oriented x 4, LOC appropriate for age, CN II-XII intact speech normal Assessment/Plan 1. Hypertension (I10: Essential (primary) hypertension) Continue with amlodipine 5 mg daily Continue with losartan 100 mg daily No refills at this visit Reviewed B/P log from today provided by patient (see scanned document) Discussed low sodium diet & daily exercise B/P rechecked at B/P 134/70 f/u as scheduled with pcp Ordered: Body Mass Index (BMI) documented 3008F Depression Screening Negative 3352F Patient screen for fall risk: no falls in last year or 1 fall with no injury in last year 1101F 2. Chronic kidney disease, stage 3a (N18.31: Chronic kidney disease, stage 3a) Last GFR 44 Continue to monitor every 6 months with pcp Ordered: Body Mass Index (BMI) documented 3008F Depression Screening Negative 3352F Patient screen for fall risk: no falls in last year or 1 fall with no injury in last year 1101F 3. BMI 28.0-28.9,adult (Z68.28: Body mass index [BMI] 28.0-28.9, adult) Monitor weight at each visit Encourage daily exercise & portion control f/u with pcp Total time spent preparing the chart, conducting of the encounter with the patient and family and time spent documenting, reviewing, and ordering tests was 25 minutes. Follow-up No qualifying data available Patient Education DASH Eating Plan Problem List/Past Medical History Ongoing Ag (more content not included)... Normal [facility] Comment on above: Result Comment: Elec tronically Signed By: VIPUL OBANDO CNP\.kelly\Date and Time Signed: 09/01/23 13:24 EST Patient Educationon 09-01-19 24 Patient Education Nutrition DASH Eating Plan DASH stands for Dietary Approaches to Stop Hypertension. The DASH eating plan is a healthy eating plan that has been shown to: ? Reduce high blood pressure (hypertension). ? Reduce your risk for type 2 diabetes, heart disease, and stroke. ? Help with weight loss. What are tips for following this plan? Reading food labels ? Check food labels for the amount of salt (sodium) per serving. Choose foods with less than 5 percent of the Daily Value of sodium. Generally, foods with less than 300 milligrams (mg) of sodium per serving fit into this eating plan. ? To find whole grains, look for the word whole as the first word in the ingredient list. Shopping ? Buy products labeled as low-sodium or no salt added. ? Buy fresh foods. Avoid canned foods and pre-made or frozen meals. Cooking ? Avoid adding salt when cooking. Use salt-free seasonings or herbs instead of table salt or sea salt. Check with your health care provider or pharmacist before using salt substitutes. ? Do not kruse foods. Cook foods using healthy methods such as baking, boiling, grilling, roasting, and broiling instead. ? Cook with heart-healthy oils, such as olive, canola, avocado, soybean, or sunflower oil. Meal planning ? Eat a balanced diet that includes: ? 4 or more servings of fruits and 4 or more servings of vegetables each day. Try to fill one-half of your plate with fruits and vegetables. ? 6?8 servings of whole grains each day. ? Less than 6 oz (170 g) of lean meat, poultry, or fish each day. A 3-oz (85-g) serving of meat is about the same size as a deck of cards. One egg equals 1 oz (28 g). ? 2?3 servings of low-fat dairy each day. One serving is 1 cup (237 mL). ? 1 serving of nuts, seeds, or beans 5 times each week. ? 2?3 servings of heart-healthy fats. Healthy fats called omega-3 fatty acids are found in foods such as walnuts, flaxseeds, fortified milks, and eggs. These fats are also found in cold-water fish, such as sardines, salmon, and mackerel. ? Limit how much you eat of: ? Canned or prepackaged foods. ? Food that is high in trans fat, such as some fried foods. ? Food that is high in saturated fat, such as fatty meat. ? Desserts and other sweets, sugary drinks, and other foods with added sugar. ? Full-fat dairy products. ? Do not salt foods before eating. ? Do not eat more than 4 egg yolks a week. ? Try to eat at least 2 vegetarian meals a week. ? Eat more home-cooked food and less restaurant, buffet, and fast food. Lifestyle ? When eating at a restaurant, ask that your food be prepared with less salt or no salt, if possible. ? If you drink alcohol: ? Limit how much you use to: ? 0?1 drink a day for women who are not . ? 0?2 drinks a day for men. ? Be aware of how much alcohol is in your drink. In the [place] one drink equals one 12 oz bottle of beer (355 mL), one 5 oz glass of wine (148 mL), or one 1? oz glass of hard liquor (44 mL). General information ? Avoid eating more than 2,300 mg of salt a day. If you have hypertension, you may need to reduce your sodium intake to 1,500 mg a day. ? Work with your health care provider to maintain a healthy body weight or to lose weight. Ask what an ideal weight is for you. ? Get at least 30 minutes of exercise that causes your heart to beat faster (aerobic exercise) most days of the week. Activities may include walking, swimming, or biking. ? Work with your health care provider or dietitian to adjust your eating plan to your individual calorie needs. What foods should I eat? Fruits All fresh, dried, or frozen fruit. Canned fruit in natural juice (without added sugar). Vegetables Fresh or frozen vegetables (raw, steamed, roasted, or grilled). Low-sodium or reduced-sodium tomato and vegetable juice. Low-sodium or reduced-sodium tomato sauce and tomato paste. Low-sodium or reduced-sodium canned vegetables. Grains Whole-grain or whole-wheat bread. Whole-grain or whole-wheat pasta. Brown rice. Oatmeal. Quinoa. Bulgur. Whole-grain and low-sodium cereals. Clare bread. Low-fat, low-sodium crackers. Whole-wheat flour tortillas. Meats and other proteins Skinless chicken or turkey. Ground chicken or turkey. Pork with fat trimmed off. Fish and seafood. Egg whites. Dried beans, peas, or lentils. Unsalted nuts, nut butters, and seeds. Unsalted canned beans. Lean cuts of beef with fat trimmed off. Low-sodium, lean precooked or cured meat, such as sausages or meat loaves. Dairy Low-fat (1%) or fat-free (skim) milk. Reduced-fat, low-fat, or fat-free cheeses. Nonfat, low-sodium ricotta or cottage cheese. Low-fat or nonfat yogurt. Low-fat, low-sodium cheese. Fats and oils Soft margarine without trans fats. Vegetable oil. Reduced-fat, low-fat, or light mayonnaise and salad dressings (reduced-sodium). Canola, safflower, olive, avocado, soybean, and sunflower oils. Avocado. Seasonings and condiments Herbs. Spices. Seasoni (more content not included)... [facility] Consultation Noteon 08-24-19 24 Consultation Note [id number]#1.0 0TIFF [facility] Consultation Note [id number]#1.0 0TIFF [facility] RAD - CT Reporton 08-24-2023 RAD - CT Report [id number]#1.0 0TIFF [facility] Operative Reporton Operative Report [id number]#1.0 0TIFF [facility] Patient Correspondenceon Patient Correspondence [id number]#1.0 0TIFF [facility] Provider Letteron 08-12-2023 Provider Letter [address] [place] [address] August 12, 2023 ISAURA RIVERA [address] [address] : [address] Das, The above patient has been evaluated at your request for preoperative clearance. After assessment of available pertinent labs and diagnostic tests, I feel this patient is medically optimized for surgery. Final discretion of whether the patient is cleared for surgery remains up to the surgeon/anesthesiologi st. Thank you, Violet Lauren, YISEL [facility] Ambulatory Visit Summaryon 1 10-12-2022 Ambulatory Visit Summary ISAURA RIVERA :1950 Visit Date:08/11/2023 Ambulatory Visit Instructions Your [...] Follow-Up Appointments Tuesday 10:30 AM EST With: Job Alvarado MD Where: [facility] [place] Normal [address] [place] [address]- \.br\ Medications\.br\ What How Much When Instructions\.br\ [...] for choosing us for your care.\.br\ \.br\ [facility] ECG 12-Leadon 08-11-2023 ECG 12-Lead [id number]#1.0 0TIFF Normal [facility] Family Medicine Office/Clini c Noteon 08-11-2023 Family [...] Recorded pneumococcal 23-valent vaccine 06/25/2008 Recorded Normal [facility] Comment on above: Result Comment: Elec tronically Signed By: Christiano SHORT, Job Saldivar.br\Date and Time Signed: 08/11/23 12:57 EST RAD - MISCon 08-10-2023 RAD - MISC [id number]#1.0 0TIFF [facility] Consultation Noteon 07-07-20 Consultation Note [id number]#1.0 0TIFF [facility] RAD - MISCon 07-07-2023 RAD - MISC [id number]#1.0 0TIFF [facility] Patient Logson 06-14-2023 Patient Logs [id number]#1.0 0TIFF [facility] Physician Referralon 023 Physician Referral [id number]#1. 00TIFF [facility] Nurse Consultation Noteon Nurse Consultation Note Reason [...] Given Postpone due to refusal SARS-CoV-2 mRNA (erik 5y-11y) vac - Not Given Postpone due to refusal pneumococcal 23-valent vaccine 07/24/2019 Recorded pneumococcal 13-valent vaccine 07/21/2018 Recorded hepatitis A adult vaccine 11/08/2016 Recorded hepatitis A adult vaccine 05/05/2016 Recorded influenza virus vaccine, inactivated 07/12/2014 Recorded influenza virus vaccine, inactivated 06/05/2013 Recorded influenza virus vaccine, inactivated 05/18/2012 Recorded influenza virus vaccine, inactivated 05/17/2011 Recorded pneumococcal 23-valent vaccine 06/25/2008 Recorded [facility] Outside Colonoscopyon 2022 Outside Colonoscopy [id number]#1.0 0TIFF [facility] Patient Logson 06-07-2023 Patient Logs [id number]#1.0 0TIFF [facility] Auth for Release of Medical Recordson 06-01-2023 Auth for Release of Medical Records [id number]#1.0 0TIFF [facility] Family Medicine Office/Clini c Noteon [...] the Symptoms Below : No Leidy Aguilar 05/30/2023 14:34 EDT COVID-19 Vaccine : No Leidy Aguilar 05/30/2023 14:36 EDT Covid-19 External Testing : No *Verify Airborne, Droplet Precautions for MERS/COVID-19 : N/A *Verify Droplet, Contact Precautions for Ebola (Reference for CDC) : N/A Leidy Aguilar 05/30/2023 14:34 EDT Summary Preferred Lab : [facility] Preferred Rad : [facility] Patient Counseled : Nutrition, Physical activity Height in Inches : 64 in Height/Length Measured : 162 cm(Converted to: 5 ft 4 in, 63.78 in) Weight Measured : 75.9 kg(Converted to: 167 lb 5 Ounces, 167.331 lb) Body Mass Index Measured : 28.92 kg/m2 Leidy Aguilar 05/30/2023 14:34 EDT Lauren [facility] Marlene 05/30/2023 14:36 EDT Weight in Pounds : 166.98 lb Lauren Lediy A 05/30/2023 14:34 EDT Lauren Leidy A 05/30/2023 14:36 EDT Systolic Blood Pressure : [...] Depression Screening Result : Negative Leidy Aguilar - 05/30/2023 14:34 EDT Procedures / Surgeries - [...] the Past Year : No Leidy Aguilar Marlene - 05/30/2023 14:34 EDT Review of Systems [...] area free o (more content not included)... [facility] Comment on above: Result Comment: Elec tronically Signed By: Job Alvarado MD\.br\Date and Time Signed: 06/01/23 10:38 EDT\.br\Electronically Co-Signed By: Neftaly Wolfe\.br\Date and Time Co-Signed: 05/30/23 15:29 EDT Auth for Release of Medical Recordson 05-31-2023 Auth for Release of Medical Records [id number]#1.0 0TIFF [facility] Physician Referralon 023 Physician Referral [id number]#1. 00TIFF [facility] Screenson 05-31-2023 Screens [id number]#1. 00TIFF [facility] Ambulatory Visit Summaryon 1 0-09-2023 Ambulatory Visit Summary ISAURA RIVERA :1950 Visit [...] Follow-Up Appointments Tuesday 9:00 AM EDT Where: [facility] Invalid Interpretation Code [address] [place] [address]- \.br\ Someone Will Contact You Regarding These Appointments\.br\ [facility] External Ambulatory Referral, Podiatry, [facility], 05/30/23 15:02:00 EDT, Hypertension [facility] Ambulatory Visit Summary ISAURA RIVERA :1950 Visit [...] Follow-Up Appointments Tuesday 9:00 AM EDT Where: [facility] Invalid Interpretation Code [address] [place] [address]- \.br\ Someone Will Contact You Regarding These Appointments\.br\ [facility] External Ambulatory Referral, Podiatry, [facility], 05/30/23 15:02:00 EDT, Hypertension [facility] Ambulatory Visit Summary ISAURA RIVERA :1950 Visit Date:05/30/2023 Ambulatory Visit Instructions Your Diagnosis Hypertension Hypertensive kidney disease with stage 3a chronic kidney disease Chronic kidney disease, stage 3a Hypercholesterolemia Postmenopause bleeding BMI 28.0-28.9,adult Non-smoker Your Care Team Attending Physician - Job Alavrado MD Primary Care Physician - Job Alvarado [...] Follow-Up Appointments Tuesday 9:00 AM EDT Where: [facility] Normal [address] [place] [address]- \.br\ Medications\.br\ What How Much When Why [...] abdominal pain\.br\ TIA (transient ischemic attack)\.br\ \.br\ [facility] Ambulatory Visit Summary ISAURA RIVERA :1950 Visit [...] Follow-Up Appointments Tuesday 11:00 AM EST Where: [facility] Medicine Office/Clini c Noteon 05-30-2023 Family Medicine [...] a nurse visit in 2 weeks. Ordered: [facility] External Ambulatory Referral Medicare Subsequent Visit [id number] 2. Hypertensive kidney disease with stage 3a chronic kidney disease (I12.9: Hypertensive chronic kidney disease with stage 1 through stage 4 chronic kidney disease, or unspecified chronic kidney disease) - Working to control Bps to protect the kidneys Ordered: [facility] External Ambulatory Referral 3. Chronic kidney disease, stage 3a (N18.31: Chronic kidney disease, stage 3a) - Will have the patient cut down on the NSAIDs to protect the kidneys Ordered: [facility] External Ambulatory Referral 4. Hypercholesterolemia (E78.00: Pure hypercholesterolemia, unspecified) - Continue on the statin Ordered: [facility] External Ambulatory Referral 5. Postmenopause bleeding (N95.0: Postmenopausal bleeding) - Follow up with Dr. Das Ordered: [facility] External Ambulatory Referral 6. Foot pain, right [...] Daily, # 90 tab(s), Refills(s) 0, Pharmacy: [facility] [id number], 162, cm, 05/30/23 14:36:00 EDT, Height/Length Dosing, 75.9, kg, 05/30/23 14:35:00 EDT, Weight Dosing losartan, See Instructions, Take 1 tab in am and 2 in pm, # 270 tab(s), Refills(s) 3, Pharmacy: [facility] [id number], 162.6, cm, 12/01/22 15:23:00 EDT, Height/Length Dosing, 76.5, kg, 12/01/22 15:23:00 EDT, Weight Dosing rosuvastatin, See Instructions, TAKE ONE TABLET BY MOUTH DAILY, # 90 tab(s), Refills(s) 0, Pharmacy: [facility] [id number], 162, cm, 05/30/23 14:36:00 EDT, Height/Length Dosing, [...] immunization status assessed 1030F Lab Specimen Collect 73933 Lipid Panel Medication list documented in medical [...] Medications aspir (more content not included)... Normal [facility] Comment on above: Result Comment: Elec tronically Signed By: Christiano SHORT, Job Harvey\.br\Date and Time Signed: 05/30/23 15:10 EDT Lipid Panelon 05-30-2023 Cholesterol [Mass/Vol] 206 mg/dL High 120-200 [facility] Comment on above: Performed By: #### 2 [id number] #### [facility] [address] [place] [address] Cholesterol in HDL [Mass/Vol] 61 mg/dL Invalid Interpretation Code [facility] Comment on above: Result Comment: HDL > or equal to 60 mg/dL: Low cardiovascular risk HDL < 40 mg/dL : High cardiovascular risk Performed By: #### 2 719732 #### [facility] [address] [place] [address] Cholesterol in LDL [Mass/Vol] 111 mg/dL Normal <=129 [facility] Comment on above: Performed By: #### 2 615710 #### [facility] [address] [place] [address] Cholesterol in VLDL [Mass/Vol] 35 mg/dL Normal 7-40 [facility] Comment on above: Performed By: #### 2 866456 #### [facility] [address] [place] [address] Triglyceride [Mass/Vol] 177 mg/dL High <=149 [facility] Comment on above: Performed By: #### 2 687127 #### [facility] [address] [place] [address] Patient Education 05-30-20 Patient Education Caregiving Fall [...] night-lights. ? Place frequently used items in kicn-ev-qetvz places. Lower the shelves around your home [...] the way. ? Do not use floor nepali or wax that makes floors slippery. If [...] include working with a physical therapist or life skills trainer to improve your strength, balance, and endurance. Where to find more information ? Centers for Disease Control and Prevention, STEADI: www.cdc.gov ? National Rudolph on Aging: www.brandy.nih.gov Contact a health care [...] health ca (more content not included)... Normal [facility] Pre-Visit Planningon 023 Pre-Visit Planning - From: Benita MENJIVAR, Daly To: Christiano SHORT, Job Harvey; Sent: 05/27/2023 13:37:55 EDT Subject: Pre-Visit Planning Due Date/Time: 05/27/2023 13:37:00 EDT Caller Name: ISAURA RIVERA; Caller Number: Adrian , Mitesh Hi Dr. Alvarado, *Based on your response below, [...] feel free to contact me at extension [phone]. Thank you! Daly Joy, ALEXN, RN, CCM, CCDS, CCDS-O From: Christiano SHORT, Job Harvey To: Benita MENJIVAR, Daly; Sent: 05/30/2023 13:07:52 EDT Subject: RE: Pre-Visit Planning Caller Name: ISAURA RIVERA; Caller Number: Adrian , Mitesh Please add 3A Normal [address] [facility] C Urineon 05-13-2023 Bacteria identified Cx Nom (U) Microbiology PROCEDURE: Urine Culture [R1] SOURCE: U CleanCatch BODY SITE: COLLECTED DATE/TIME: 05/11/2023 12:05 EDT RECEIVED DATE/TIME: 05/11/2023 18:38 EDT START DATE/TIME: 05/11/2023 19:05 EDT FREE TEXT SOURCE: Violet Allen, Violet Rosado FINAL REPORTS Final Report [] Verified Date/Time: 05/13/2023 10:07 EDT <10,000 cfu/ml Mixed skin contaminants Performing Locations R1: This test was performed at: [facility], [address] [place] [address], [address] , [place], [facility] Comment on above: Performed By: #### 2 583966, [id number] ####[facility] [address] [place] [address] RAD - Ultrasound Reporton RAD - Ultrasound Report [id number] 0CD:127 Normal [facility] RAD - Ultrasound Report [id number]#[id number] 0CD:127 Normal [facility] Ambulatory Visit Summaryon 0 05-11-2023 Ambulatory Visit Summary ISAURA RIVERA Alonzo :1950 Visit Date:05/11/2023 Ambulatory Visit Instructions Your Diagnosis BMI 28.0-28.9,adult Non-smoker Right sided abdominal pain Postmenopause bleeding Your Care Team Attending Physician - Violet Allen Primary Care Physician - Job Alvarado MD [...] Appointments Tuesday 2:00 PM EDT With: Where: [facility] Normal [address] [place] [address]- \.br\ Medications\.br\ What How Much When Instructions\.br\ [...] abdominal pain\.br\ TIA (transient ischemic attack)\.br\ \.br\ [facility] Amylaseon 05-11-2023 Amylase [Catalytic activity/Vol] 74 U/L Normal 25-157 [facility] Comment on above: Performed By: #### 2 633378, 3035750, 8488552, 3061631, 9470767, 95370517 ####[facility] [address] [place] [address] Auto Diffon 05-11-2023 Basophils/100 WBC (Bld) 0.8 % Normal 0.0-2.0 [facility] Comment on above: Order Comment: Order Added by Discern Expert. Performed By: #### 2 982192, 8482265, 6053871, 0815162, 7615246, 61422950 ####[address] [address] Basophils/Leukocyte s Auto (Bld) [Pure # fraction] 0.0 E9/L Normal 0.0-0.2 [facility] Comment on above: Order Comment: Order Added by Discern Expert. Performed By: #### 2 058663, 8128202, 3474285, 0158603, 7585239, 07817602 ####[address] [address] Eosinophils/100 WBC (Bld) 5.2 % Normal 0.0-8.0 [facility] Comment on above: Order Comment: Order Added by Discern Expert. Performed By: #### 2 573730, 5480596, 7860324, 2653762, 3298046, 51491616 ####[address] [address] Eosinophils/Leukocy ambrosio Auto (Bld) [Pure # fraction] 0.3 E9/L Normal 0.0-0.5 [facility] Comment on above: Order Comment: Order Added by Discern Expert. Performed By: #### 2 574300, 5862658, 9907715, 6133417, 8505485, 59761191 ####[address] [address] Lymphocytes/100 WBC (Bld) 31.3 % Normal 14.0-50.0 [facility] Comment on above: Order Comment: Order Added by Discern Expert. Performed By: #### 2 831674, 7448149, 1630147, 8237325, 3894074, 58648008 ####[address] [address] Lymphocytes/Leukocy ambrosio Auto (Bld) [Pure # fraction] 1.8 E9/L Normal 1.0-4.0 [facility] Comment on above: Order Comment: Order Added by Discern Expert. Performed By: #### 2 364155, 5590862, 3547554, 4061762, 4079692, 01878480 ####[facility] [address] [place] [address] Monocytes/100 WBC (Bld) 7.8 % Normal 4.0-14.0 [facility] Comment on above: Order Comment: Order Added by Discern Expert. Performed By: #### 2 143902, 4177201, 9154624, 8026434, 4180428, 80915655 ####[address] [place] [address] Monocytes/Leukocyte s Auto (Bld) [Pure # fraction] 0.4 E9/L Normal 0.2-1.0 [facility] Comment on above: Order Comment: Order Added by Discern Expert. Performed By: #### 2 251613, 3439181, 3401258, 7680264, 1136206, 90562744 ####[address] [address] Neutrophils/100 WBC (Bld) 54.9 % Normal 36.0-75.0 [facility] Comment on above: Order Comment: Order Added by Discern Expert. Performed By: #### 2 846005, 6239210, 2466933, 3591470, 8794889, 04265785 ####[address] [place] [address] Neutrophils/Leukocy ambrosio Auto (Bld) [Pure # fraction] 3.1 E9/L Normal 2.0-7.5 [facility] Comment on above: Order Comment: Order Added by Discern Expert. Performed By: #### 2 009993, 6911799, 3937270, 2093807, 2087834, 03977400 ####[address] [place] [address] CBC w/ Auto Diffon 3 Erythrocyte distribution width (RBC) [Ratio] 12.9 % Normal 10.9-14.2 [facility] Comment on above: Performed By: #### 2 781623, 5251165, 9770594, 1679144, 0311520, 85028303 #### [facility] [address] [place] [address] [place] [address] Hematocrit (Bld) [Volume fraction] 34.9 % Normal 34.0-46.0 [facility] Comment on above: Performed By: #### 2 704151, 0547643, 3348971, 3651301, 3709658, 58787862 #### [facility] [address] [place] [address] Hemoglobin (Bld) [Mass/Vol] 11.8 g/dL Low 12.0-16.0 [facility] Comment on above: Performed By: #### 2 707932, 1545421, 0782493, 3007491, 2516800, 90001501 #### [facility] [address] [place], [place] [address] MCH (RBC) [Entitic mass] 32.6 pg Normal 27.0-34.0 [facility] Comment on above: Performed By: #### 2 296614, 1712461, 4466732, 1682348, 9106022, 91517557 #### [facility] [address] [place], [place] [address] MCHC (RBC) [Mass/Vol] 33.9 g/dL Normal 31.4-36.0 [facility] Comment on above: Performed By: #### 2 846456, 6626797, 6024913, 2203922, 4495986, 30715365 #### [facility] [address] [place], [place] [address] MCV (RBC) [Entitic vol] 96.3 fL Normal 80.0-100.0 [facility] Comment on above: Performed By: #### 2 150452, 4961629, 8444572, 4846425, 5936378, 92692408 #### [facility] [address] [place] [address] Platelet mean volume (Bld) [Entitic vol] 8.2 fL Normal 6.4-10.8 [facility] Comment on above: Performed By: #### 2 971025, 6017919, 7393121, 3590678, 1980477, 27369615 #### [facility] [address] [place] [address] Platelets (Bld) [#/Vol] 275.0 E9/L Normal 150.0-500.0 [facility] Comment on above: Performed By: #### 2 847422, 7373557, 7943573, 1468308, 2695634, 57929444 #### [facility] [address] [place] [address] RBC (Bld) [#/Vol] 3.6 E12/L Low 4.3-5.9 [facility] Comment on above: Performed By: #### 2 821466, 1257796, 4180962, 9777929, 4769545, 20382620 #### [facility] [address] [place] [address] WBC corrected for nucl RBC Auto (Bld) [#/Vol] 5.6 E9/L Normal 4.0-11.0 [facility] Comment on above: Performed By: #### 2 689779, 6776954, 3495650, 3644195, 7674935, 45692395 #### [facility] [address] [place] [address] CHEMISTRYOrdered By: SYSTEM SYSTEM on 05-11-2023 Albumin [Mass/Vol] 4.3 g/dL Normal 3.3 - 5.0 gm/dL F C Remisol Albumin/Globulin [Mass ratio] 1.3 {ratio} Normal [...] 108 mmol/L Normal 101 - 111 mmol/L FT [facility] CO2 [Moles/Vol] 27 mmol/L Normal 21 - 31 mmol/L [facility] Creatinine [Mass/Vol] 1.3 mg/dL Normal 0.5 - 1.3 mg/dL FT [facility] GFR/1.73 sq M.predicted among non-blacks MDRD (S/P/Bld) [Vol rate/Area] 44 mL/min/1.73 m2 Low >=59mL/min/1.73 m2 FT Chem S Globulin (S) [Mass/Vol] 3.2 g/dL Normal 1.4 - 4.0 gm/dL FT [facility] Glucose [Mass/Vol] 93 mg/dL Normal 55 - 199 mg/dL FT [facility] Lipase [Catalytic activity/Vol] 46 U/L Normal 13 - 58 unit/L [facility] Potassium [Moles/Vol] 4.3 mmol/L Normal 3.5 - 5.3 mmol/L FT [facility] Protein [Mass/Vol] 7.5 g/dL Normal 6.0 - 7.8 gm/dL [facility] Remisol Sodium [Moles/Vol] 141 mmol/L Normal 135 - 145 mmol/L FT [facility] Urea nitrogen [Mass/Vol] 21 mg/dL Normal 5 - 21 mg/dL FT [facility] Urea nitrogen/Creatinine [Mass ratio] 16 mg/mg Normal 10 - 20 [facility] CMPon 05-11-2023 Albumin [Mass/Vol] 4.3 g/dL Normal 3.3-5.0 [facility] Comment on above: Performed By: #### 2 780756, 3402176, 3065971, 8873533, 7822443, 30259490 ####[address] [place] [address] Albumin/Globulin (S) [Mass conc ratio] 1.3 Normal 1.1-2.2 [facility] Comment on above: Performed By: #### 2 012769, 1648608, 3784582, 5101143, 8755679, 68004751 ####[facility] [address] [place] [address] ALP [Catalytic activity/Vol] 46 Int._Unit/L Normal 21-98 [facility] Comment on above: Performed By: #### 2 794234, 4875790, 5660469, 4869169, 9211767, 39875089 ####[facility] [address] [place] [address] ALT No additional P-5'-P [Catalytic activity/Vol] 16 Int._Unit/L Normal 6-46 [facility] Comment on above: Performed By: #### 2 601591, 1157322, 3009177, 6838496, 2740281, 12952032 ####[facility] [address] [place] [address] Anion gap [Moles/Vol] 10 mmol/L Normal 6-16 [facility] Comment on above: Performed By: #### 2 386214, 5214666, 6044246, 7885104, 0667583, 40514294 ####[facility] [address] [place] [address] AST [Catalytic activity/Vol] 23 Int._Unit/L Normal 5-43 [facility] Comment on above: Performed By: #### 2 109434, 8201511, 8460994, 9524339, 4101833, 71743182 ####[facility] [address] [place] [address] Bilirubin [Mass/Vol] 0.6 mg/dL Normal 0.0-1.1 [facility] Comment on above: Performed By: #### 2 180520, 2440922, 2585081, 4119038, 0932279, 19710768 ####[facility] [address] [place] [address] Calcium [Mass/Vol] 9.5 mg/dL Normal 8.9-11.1 [facility] Comment on above: Performed By: #### 2 942578, 4949703, 0547397, 8376993, 9380362, 77866915 ####[facility] [address] [place] [address] Chloride [Moles/Vol] 108 mmol/L Normal 101-111 [facility] Comment on above: Performed By: #### 2 096744, 7357532, 5269621, 8995140, 9340466, 61528116 ####[facility] [address] [place] [address] CO2 [Moles/Vol] 27 mmol/L Normal 21-31 [facility] Comment on above: Performed By: #### 2 780080, 6467929, 0019413, 6155187, 0081552, 52691361 ####[facility] [address] [place] [address] Creatinine [Mass/Vol] 1.3 mg/dL Normal 0.5-1.3 [facility] Comment on above: Performed By: #### 2 803854, 7142196, 3923757, 6341656, 5104728, 70210050 ####[facility] [address] [place] [address] Globulin (S) [Mass/Vol] 3.2 g/dL Normal 1.4-4.0 [facility] Comment on above: Performed By: #### 2 956069, 1589459, 0248479, 9530071, 4384298, 86768523 ####[facility] [address] [place] [address] Glucose [Mass/Vol] 93 mg/dL Normal 55-199 [facility] Comment on above: Result Comment: If t his glucose result represents a fasting glucose, interpretation should refer to the following reference range: 55-99 mg/dL Performed By: #### 2 822665, 0191967, 0234331, 9405000, 9292990, 97038754 ####[facility] [address] [place] [address] Potassium [Moles/Vol] 4.3 mmol/L Normal 3.5-5.3 [facility] Comment on above: Performed By: #### 2 778660, 9332444, 9789725, 9965258, 6334277, 40029371 ####[facility] [address] [place] [address] Protein [Mass/Vol] 7.5 g/dL Normal 6.0-7.8 [facility] Comment on above: Performed By: #### 2 921207, 5292584, 9105891, 2593968, 6529413, 25031764 ####[facility] [address] [place] [address] Sodium [Moles/Vol] 141 mmol/L Normal 135-145 [facility] Comment on above: Performed By: #### 2 483325, 3003781, 3225409, 2814987, 8877858, 30428645 ####[facility] [address] [place] [address] Urea nitrogen [Mass/Vol] 21 mg/dL Normal 5-21 [facility] Comment on above: Performed By: #### 2 485099, 1056921, 0664944, 0868605, 0311153, 28533073 ####[facility] [address] [place] [address] Urea nitrogen/Creatinine [Mass ratio] 16 No Units Normal 10-20 [facility] Comment on above: Performed By: #### 2 928352, 3266537, 3686686, 9207174, 8380696, 29131250 ####[facility] [address] [place] [address] Family Medicine Office/Clini c [place] 05-11-2023 Family Medicine Office/Clinic Note HPI Staff [...] BID, # 180 tab(s), Refills(s) 0, Pharmacy: [facility] [id number], 162, cm, 05/11/23 9:36:00 EDT, Height/Length Dosing, [...] BID, # 180 tab(s), Refills(s) 0, Pharmacy: [facility] [id number], 162, cm, 05/11/23 9:36:00 EDT, Height/Length Dosing, [...] BID, # 180 tab(s), Refills(s) 0, Pharmacy: [facility] [id number], 162, cm, 05/11/23 9:36:00 EDT, Height/Length Dosing, 74.9, kg, 05/11/23 9:36:00 EDT, Weight Dosing Amylase Level CBC w/ Auto Diff Comprehensive Metabolic Panel Lipase Level UA With Cult Reflex 5. Non-smoker (Z78.9: Other specified health status) continue not smoking Ordered: losartan, 25 mg = 1 tab(s), Oral, BID, # 180 tab(s), Refills(s) 0, Pharmacy: [facility] [id number], 162, cm, 05/11/23 9:36:00 EDT, Height/Length Dosing, [...] Instructions Allergies (more content not included)... Normal [facility] Comment on above: Result Comment: Elec tronically Signed By: Violet lAlen\.br\Date and Time Signed: 05/11/23 12:51 EDT HEMATOLOGYOrdered [...] 3.1 E9/L Normal 2.0 - 7.5 E9/L FT HemeAutoSS HEMATOLOGYOrdered By: Nato Cheung on 05-11-2023 Erythrocyte distribution width (RBC) [Ratio] 12.9 % Normal 10.9 - 14.2 % FT HemeAutoSS Hematocrit (Bld) [Volume fraction] 34.9 % Normal 34.0 - 46.0 % FT HemeAutoSS Hemoglobin (Bld) [Mass/Vol] 11.8 g/dL Low 12.0 - 16.0 gm/dL FT HemeAutoSS MCH (RBC) [Entitic mass] 32.6 pg Normal 27.0 - 34.0 pg FT HemeAutoSS MCHC (RBC) [Mass/Vol] 33.9 g/dL Normal 31.4 - 36.0 gm/dL FT HemeAutoSS MCV (RBC) [Entitic vol] 96.3 fL Normal 80.0 - 100.0 fL FT HemeAutoSS Platelet mean volume (Bld) [Entitic vol] 8.2 fL Normal 6.4 - 10.8 fL FT HemeAutoSS Platelets (Bld) [#/Vol] 275.0 E9/L Normal 150.0 - 500.0 E9/L FT HemeAutoSS RBC (Bld) [#/Vol] 3.6 E12/L Low 4.3 - 5.9 E12/L FT HemeAutoSS WBC corrected for nucl RBC Auto (Bld) [#/Vol] 5.6 E9/L Normal 4.0 - 11.0 E9/L [facility] HemeAutoSS Lipase Levelon 05-11-2023 Lipase [Catalytic activity/Vol] 46 U/L Normal 13-58 [facility] Comment on above: Performed By: #### 2 311015, 4402108, 7575121, 4704228, 7446785, 73557937 ####[facility] [address] [place] [address] UA With Cult Reflexon 2022 Bacteria LM Ql (Urine sed) TRACE Normal Trace [facility] Comment on above: Performed By: #### 2 699247, 89795979 ####[facility] [address] [place] [address] Bilirubin Ql (U) Negative Normal Negative [facility] Comment on above: Performed By: #### 2 186676, 25356855 ####[facility] [address] [place] [address] Clarity (U) CLEAR Normal Clear [facility] Comment on above: Performed By: #### 2 464116, 85110405 ####[facility] [address] [place] [address] Color (U) YELLOW Normal Yellow [facility] Comment on above: Performed By: #### 2 909391, 77582237 ####[facility] [address] [place] [address] Crystals LM Ql (Urine sed) Present Normal [facility] Comment on above: Performed By: #### 2 818307, 74917015 ####[facility] [address] [place] [address] Epithelial cells.squamous LM.HPF (Urine sed) [#/Area] 5-8 Normal 0-2 [facility] Comment on above: Performed By: #### 2 427453, 38325780 ####[facility] [address] [place] [address] Glucose Test strip (U) [Mass/Vol] Negative Normal Negative [facility] Comment on above: Performed By: #### 2 347214, 00875091 ####[facility] [address] [place] [address] Hemoglobin Ql (U) TRACE Abnormal Negative [facility] Comment on above: Performed By: #### 2 966087, 96305800 ####[facility] [address] [place] [address] Ketones (U) [Mass/Vol] Negative Normal Negative [facility] Comment on above: Performed By: #### 2 514260, 38473101 ####[facility] [address] [place] [address] [place].plasma/Lith ium.RBC (Bld) [Mass ratio] 0-3 Normal 0-3 [facility] Comment on above: Performed By: #### 2 500612, 10387290 ####[facility] [address] [place] [address] Mucus Ql (Urine sed) 2+ Normal [facility] Comment on above: Performed By: #### 2 633022, 62034370 ####[address] [address] Nitrite Ql (U) Negative Normal Negative [facility] Comment on above: Performed By: #### 2 633157, 99668878 ####[address] [address] pH (U) 7.0 [pH] Invalid Interpretation Code 5.0-9.0 [facility] Comment on above: Performed By: #### 2 778659, 99880231 ####[address] [address] Protein (U) [Mass/Vol] Negative Normal Negative [facility] Comment on above: Performed By: #### 2 172128, 88141671 ####[address] [address] Specific gravity (U) [Rel density] 1.010 Invalid Interpretation Code 1.005-1.030 [facility] Comment on above: Performed By: #### 2 997027, 69187728 ####[address] [address] Type of Urine collection method Clean Catch Normal [facility] Comment on above: Performed By: #### 2 610635, 21586149 ####[address] [address] Urobilinogen Qn (U) 0.2 {Leon'U}/dL Normal 0.0-1.0 [facility] Comment on above: Performed By: #### 2 613774, 06290725 ####[address] [address] WBC Auto Ql (U) 1+ Abnormal Negative [facility] Comment on above: Performed By: #### 2 596343, 24090756 ####[facility] [address] [place] [address] WBC LM.HPF (Urine sed) [#/Area] 0-5 Normal 0-5 [facility] Comment on above: Performed By: #### 2 656013, 85747494 ####[facility] [address] [place] [address] URINALYSISOrdered By: Dinah murray on 05-11-2023 Bacteria LM Ql (Urine sed) Trace /HPF Normal Trace/HPF [facility] UA Auto SS Bilirubin Ql (U) Negative (05/11/23 12:05 PM) Normal Negative [facility] UA Auto SS Clarity (U) Clear (05/11/23 12:05 PM) Normal Clear [facility] UA Auto SS Color (U) Yellow (05/11/23 12:05 PM) Normal Yellow [facility] UA Auto SS Crystals LM Ql (Urine [...] PM) Normal Negative [facility] UA Auto SS [place].plasma/Lith ium.RBC (Bld) [Mass ratio] 0-3 /HPF Normal [...] PM) Invalid Interpretation Code 1.005 - 1.030 [facility] UA Auto SS UA Spec Desc Clean Catch (05/11/23 12:05 PM) Normal [facility] UA Auto SS Urobilinogen Qn (U) 0.9867388 {Leon'U}/dL Normal 0.0 - 1.0 EU/dL [facility] UA Auto SS WBC Auto Ql (U) 1+ *ABN* (05/11/23 12:05 PM) Invalid Interpretation Code Negative [facility] UA Auto SS WBC LM.HPF (Urine sed) [#/Area] 0-5 /HPF Normal 0-5/HPF [facility] UA Auto SS eGFRon 05-11-2023 GFR/1.73 sq M.predicted among non-blacks MDRD (S/P/Bld) [Vol rate/Area] 44 mL/min/1.73 m2 Low >=59 [facility] Comment on above: Order Comment: Order added by Discern Expert. Result Comment: Pediatrician sommer kidney disease could be indicated at eGFR's of less than 60 mL/min/1.73m2. Kidney failure is indicated at less than 15 mL/min/1.73m2. Performed By: #### 2 115483, 9212954, 8605753, 0202691, 9100495, 26974496 ####[facility] [address] [place] [address] Outside Mammographyon 2022 Outside Mammography [id number] 0CD:127 Normal [facility] Consultation Noteon 02-02-20 Consultation Note [id number] 0CD:127 Normal [facility] Family Medicine Office/Clini c Noteon 12-02-2022 Family [...] were not effective. The patient saw her enterprise application analyst for her annual checkup and was diagnosed with glaucoma. She underwent laser treatment of bilateral eyes. She has a follow-up appointment with him next week. The patient states that for the last 3 years, she has been seeing double out of her left eye. Her enterprise application analyst informed her that it was ghost shadows. [...] after patient or guardian consented to allow [facility] [employer] to record this visit. YAA land reclamation specialist and provider reviewed before signing. YAA: [...] mg Tab, (more content not included)... Normal [facility] Comment on above: Result Comment: Elec tronically Signed By: Job Alvarado MD\.br\Date and Time Signed: 12/02/22 13:01 EDT\.br\Electronically Co-Signed By: Angeline Wong\.br\Date and Time Co-Signed: 12/01/22 16:53 EDT Patient [facility] 11-15-2022 Patient Logs [id number] CD:127 Normal [facility] Patient [facility] 11-03-2022 Patient Logs [id number] 30 [id number] 0CD:127 Normal [facility] CULTURE URINEon 07-06-2022 CULTURE URINE Culture Observations : LIGHT GROWTH OF MIXED GENITAL NAN. NO POTENTIAL PATHOGENS SEEN. Normal [facility] Comment on above: Performed By: #### U RCX #### [facility] [address] [place] [address] Dr. Melchor Brock UA (CLEAN/CATCH) MICROSCOPIC IF INDICATEon 07-06-2022 Bilirubin Ql (U) Negative Normal NEGATIVE [facility] Comment on above: Performed By: #### U MICRO, UARMICR #### [facility] [address] [place] [address] Dr. Melchor Brock Clarity (U) CLEAR Normal CLEAR [facility] Comment on above: Performed By: #### U MICRO, UARMICR #### [facility] [address] [place] [address] Dr. Melchor Brock Color (U) LT. YELLOW Normal YELLOW [facility] Comment on above: Performed By: #### U MICRO, UARMICR #### [facility] [address] [place] [address] Dr. Melchor Brock Glucose Ql (U) Negative Normal NEGATIVE [facility] Comment on above: Performed By: #### U MICRO, UARMICR #### [facility] [address] [place] [address] Dr. Melchor Brock Hemoglobin Ql (U) TRACE-INTACT Abnormal NEGATIVE [facility] Comment on above: Performed By: #### U MICRO, UARMICR #### [facility] [address] [place] [address] Dr. Melchor Brock Ketones Ql (U) Negative Normal NEGATIVE [facility] Comment on above: Performed By: #### U MICRO, UARMICR #### [facility] [address] [place] [address] Dr. Melchor Brock LEUKOCYTES TRACE Abnormal NEGATIVE [facility] Comment on above: Performed By: #### U MICRO, UARMICR #### [facility] [address] [place] [address] Dr. Melchor Brock Nitrite Ql (U) Negative Normal NEGATIVE [facility] Comment on above: Performed By: #### U MICRO, UARMICR #### [facility] [address] [place] [address] Dr. Melchor Brock pH (U) 6.0 [pH] Normal 5-9 [facility] Comment on above: Performed By: #### U MICRO, UARMICR #### [facility] [address] [place] [address] Dr. Melchor Brock SPEC GRAVITY 1.020 Normal 1.005-<=1.025 [facility] Comment on above: Performed By: #### U MICRO, UARMICR #### [facility] [address] [place] [address] Dr. Melchor Brock UA PROTEIN Negative Normal NEGATIVE/ TRACE [facility] Comment on above: Performed By: #### U MICRO, UARMICR #### [facility] [address] [place] [address] Dr. Melchor Brock UR MICRO IND INDICATED Normal [facility] Comment on above: Performed By: #### U MICRO, UARMICR #### [facility] [address] [place] [address] Dr. Melchor Brock Urobilinogen Qn (U) 0.2 {Leon'U}/dL Normal 0.2 - 1. 0 [facility] Comment on above: Performed By: #### U MICRO, UARMICR #### [facility] [address] [address] [address] Melchor Brock URINE MICROSCOPIC ONLYon BACTERIA NONE SEEN Normal NONE SEEN [facility] Comment on above: Performed By: #### G SHON, LIPID #### [facility] [address] [address] [address] Melchor Brock Bacteria identified Cx Nom (U) CX ALREADY ORDERED Normal [facility] Comment on above: Performed By: #### G SHON, LIPID #### [facility] [address] [address] [address] Melchor Brock CAST NONE SEEN Normal NONE SEEN [facility] Comment on above: Performed By: #### G SHON, LIPID #### [facility] [address] [place] [address] Dr. Melchor Brock Crystals LM Nom (Urine sed) NONE SEEN Normal NONE SEEN [facility] Comment on above: Performed By: #### G SHON, LIPID #### [facility] [address] [place] [address] Dr. Melchor Brock Epithelial cells LM Ql (Urine sed) RARE Normal NONE SEEN /RARE [facility] Comment on above: Performed By: #### G SHON, LIPID #### [facility] [address] [place] [address] Dr. Melchor Brock MUCOUS NONE SEEN Normal NONE SEEN [facility] Comment on above: Performed By: #### G SHON, LIPID #### [facility] [address] [place] [address] Dr. Melchor Brock RBC 0-2 Normal 0-2 [facility] Comment on above: Performed By: #### G SHON, LIPID #### [facility] [address] [address] [address] Melchor Brock WBC 0-2 Abnormal NONE SEEN [facility] Comment on above: Performed By: #### G SHON, LIPID #### [facility] [address] [place] [address] Dr. Melchor Brock MG MAMM SCREEN 3D SARAHI CADon 03-15-2022 MG MAMM SCREEN 3D SARAHI CAD Patient: ISAURA RIVERALaurie Exam Date: 03/15/2022 : 1950 Gender:F Ordering : DR FARA RICHARDSON . Admission #: [id number] Family : Order #: [id number] CLICK HERE TO VIEW EXAM RADIOLOGY REPORT [...] lung cancer at age 72. LOCATION: [facility] BREAST COMPOSITION: Heterogeneously dense,which may obscure [...] M.D. on 03/15/2022 at 11:41 Normal [facility] GLUCOSE BLOODon 02-09-2022 Glucose [Mass/Vol] 99 mg/dL Normal 74-106 [facility] Comment on above: Performed By: #### G SHON, LIPID #### [facility] [address] [address] [address] Melchor Brock LIPID PROFILEon 02-09-2022 CHOL-HDL RATIO NORM SEE BELOW Normal [facility] Comment on above: Result Comment: 3.3 - 4.4 LOW RISK 4.4 - 7.1 AVERAGE RISK 7.1 - 11.0 MODERATE RISK >11.0 HIGH RISK Performed By: #### G SHON, LIPID #### [facility] [address] [address] [address] Melchor Brock Cholesterol [Mass/Vol] 202 mg/dL Critically high <=200 [facility] Comment on above: Performed By: #### G SHON, LIPID #### [facility] [address] [address] [address] Melchor Brock Cholesterol in HDL [Mass/Vol] 56 mg/dL Normal 40-60 [facility] Comment on above: Performed By: #### G SHON, LIPID #### [facility] [address] [address] [address] Melchor Brock Cholesterol in LDL [Mass/Vol] 112.6 mg/dL Normal [facility] Comment on above: Performed By: #### G SHON, LIPID #### [facility] [address] [address] [address] Melchor Brock Cholesterol.total/C holesterol in HDL [Mass ratio] 3.6 {ratio} Normal [facility] Comment on above: Performed By: #### G SHON, LIPID #### [facility] [address] [address] [address] Melchor Brock HDL NORMAL > or = 60 mg/dl - LO W CARDIOVASCULAR RISK <40 mg/dl - HIGH CARDIOVASCULAR RISK Normal [facility] Comment on above: Performed By: #### G SHON, LIPID #### [facility] [address] [address] [address] Melchor Brock LDL CALC NORMAL SEE BELOW Normal [facility] Comment on above: Result Comment: <100 mg/dl OPTIMAL 100 - 129 mg/dl NEAR OR ABOVE OPTIMAL 130 - 159 mg/dl BORDERLINE HIGH 160 - 189 mg/dl HIGH >190 mg/dl VERY HIGH Performed By: #### G SHON, LIPID #### [facility] [address] [address] [address] Melchor Brock Triglyceride [Mass/Vol] 167 mg/dL Critically high <=150 [facility] Comment on above: Performed By: #### G SHON, LIPID #### [facility] [address] [address] [address] Melchor Brock VLDL CALC 33.4 mg/dL Normal [facility] Comment on above: Performed By: #### G SHON, LIPID #### [facility] [address] [address] [address] Melchor Brock LIPID PROFILEon 11-05-2021 CHOL-HDL RATIO NORM SEE BELOW Normal [facility] Comment on above: Result Comment: 3.3 - 4.4 LOW RISK 4.4 - 7.1 AVERAGE RISK 7.1 - 11.0 MODERATE RISK >11.0 HIGH RISK Performed By: #### L IPID, BMP #### [facility] [address] [address] [address] Melchor Brock Cholesterol [Mass/Vol] 244 mg/dL Critically high <=200 [facility] Comment on above: Performed By: #### L IPID, BMP #### [facility] [address] [address] [address] Melchor Brock Cholesterol in HDL [Mass/Vol] 60 mg/dL Normal 40-60 [facility] Comment on above: Performed By: #### L IPID, BMP #### [facility] [address] [place] [address] Dr. Melchor Brock Cholesterol in LDL [Mass/Vol] 158.4 mg/dL Normal [facility] Comment on above: Performed By: #### L IPID, BMP #### [facility] [address] [address] [address] Melchor Brock Cholesterol.total/C holesterol in HDL [Mass ratio] 4.1 {ratio} Normal [facility] Comment on above: Performed By: #### L IPID, BMP #### [facility] [address] [address] [address] Melchor Brock HDL NORMAL > or = 60 mg/dl - LO W CARDIOVASCULAR RISK <40 mg/dl - HIGH CARDIOVASCULAR RISK Normal [facility] Comment on above: Performed By: #### L IPID, BMP #### [facility] [address] [address] [address] Melchor Brokc LDL CALC NORMAL SEE BELOW Normal [facility] Comment on above: Result Comment: <100 mg/dl OPTIMAL 100 - 129 mg/dl NEAR OR ABOVE OPTIMAL 130 - 159 mg/dl BORDERLINE HIGH 160 - 189 mg/dl HIGH >190 mg/dl VERY HIGH Performed By: #### L IPID, BMP #### [facility] [address] [address] [address] Melchor Brock Triglyceride [Mass/Vol] 128 mg/dL Normal <=150 [facility] Comment on above: Performed By: #### L IPID, BMP #### [facility] [address] [place] [address] Dr. Melchor Brock VLDL CALC 25.6 mg/dL Normal [facility] Comment on above: Performed By: #### L IPID, BMP #### [facility] [address] [place] [address] Dr. Melchor Brock PROF CHEM 8 (BAS METB)on Anion gap [Moles/Vol] 10.7 mmol/L Normal [facility] Comment on above: Performed By: #### L IPID, BMP #### [facility] [address] [place] [address] Dr. Melchor Brock Calcium [Mass/Vol] 7.8 mg/dL Critically low 8.4-10.2 [facility] Comment on above: Performed By: #### L IPID, BMP #### [facility] [address] [place] [address] Dr. Melchor Brock Chloride [Moles/Vol] 103 mmol/L Normal 98-107 [facility] Comment on above: Performed By: #### L IPID, BMP #### [facility] [address] [place] [address] Dr. Melchor Brock CO2 [Moles/Vol] 28.4 mmol/L Normal 22.0-30.0 [facility] Comment on above: Performed By: #### L IPID, BMP #### [facility] [address] [place] [address] Dr. Melchor Brock Creatinine [Mass/Vol] 1.05 mg/dL Critically high 0.52-1.04 [facility] Comment on above: Performed By: #### L IPID, BMP #### [facility] [address] [place] [address] Dr. Melchor Brock EGFR-AF PAPUA [place] GUINEAN >60 Normal >=60 [facility] Comment on above: Performed By: #### L IPID, BMP #### [facility] [address] [address] [address] Melchor Brock EGFR-NON AF PAPUA [place] 52 mL/min/1.73m2 Critically low >=60 [facility] Comment on above: Performed By: #### L IPID, BMP #### [facility] [address] [address] [address] Melchor Brock Glucose [Mass/Vol] 98 mg/dL Normal 74-106 [facility] Comment on above: Performed By: #### L IPID, BMP #### [facility] [address] [address] [address] Melchor Brock Potassium [Moles/Vol] 4.1 mmol/L Normal 3.4-5.0 [facility] Comment on above: Performed By: #### L IPID, BMP #### [facility] [address] [address] [address] Melchor Brock Sodium [Moles/Vol] 138 mmol/L Normal 137-145 [facility] Comment on above: Performed By: #### L IPID, BMP #### [facility] [address] [address] [address] Melchor Brock Urea nitrogen [Mass/Vol] 15.0 mg/dL Normal 7.0-17.0 [facility] Comment on above: Performed By: #### L IPID, BMP #### [facility] [address] [address] [address] Melchor Brock Urea nitrogen/Creatinine [Mass ratio] 14.3 mg/mg Normal [facility] Comment on above: Performed By: #### L IPID, BMP #### [facility] [address] [address] [address] Melchor Brock ECHOCARDIO M/2D COMPLETEon 0 10-05-2021 ECHOCARDIO M/2D COMPLETE Patient: ISAURA RIVERA Exam Date: 10/05/2021 : 1950 Gender:F Ordering : DR ANJELICA GAMBINO . Admission #: [id number] Family : Order #: [id number] CLICK HERE TO VIEW EXAM ECHOCARDIOGRAM REPORT [...] Area(A4C): 20.70 cm2 Left Atrium Systolic Volume(A2C): 03982 mm3 Left Atrium Systolic Volume(A4C): 07504 mm3 Mitral Valve MV E to A Ratio: 1.10 Deceleration Dewey: 7410 mm/s2 Mitral Valve A-Wave Peak Velocity: [...] Dove M.D. on 10/06/2021 at 08:32 Normal [facility] XR DEXA BONE DENSITYon 09-18 XR DEXA [...] necksInterpreted by:ARLEY Valenciaigned by:Lora Mondragon MD09/12/18Final result [facility] DIGITAL SCREEN BILATERAL on 09-12-2017 [facility] DIGITAL SCREEN BILATERAL REPORT: BILATERAL DIGITAL [...] NEGATIVE)Interpreted by:ARLEY Valenciaigned by:Lora Mondragon MD09/12/18Final result [facility] Encounters Encounter Date Encounter Type Care Provider Facility Start: 09-01-2023 End: 09-02-2023 ambulatory VIPUL OBANDO Facility:[facility] [place] Start: 08-25-2023 End: 08-25-2023 ambulatory NETO HERBERT Not Available Start: 08-11-2023 End: 08-12-2023 ambulatory MD Job Alvarado Facility:[facility] [place] Start: 07-27-2023 End: 07-27-2023 ambulatory ARIEL DAS Not Available Start: 06-13-2023 End: 06-14-2023 ambulatory MD Job Alvarado Facility:[facility] Start: 05-30-2023 End: 05-31-2023 ambulatory MD Job Alvarado Facility:[facility] Start: 05-30-2023 End: 05-31-2023 ambulatory MD Job Alvarado Facility:[facility] [place] Start: 05-11-2023 End: 05-12-2023 ambulatory INFORMATION SECURITY MANAGER Violet Lauren Facility:[facility] Start: 05-11-2023 End: 09-20-2023 Lab Drop off Violet Lauren [facility] Start: 12-01-2022 End: 12-02-2022 ambulatory MD Job Alvarado Facility:[facility] Start: 10-28-2022 ambulatory INFORMATION SECURITY MANAGER Violet Lauren Facilit y:[facility] Start: 08-03-2022 End: 08-04-[address] [...] Facility:[facility] Start: 09-12-2017 End: 09-13-2017 Ambulatory [facility] Procedures Date Procedure Procedure Detail Performing Clinician Start: 09-12-2017 Screening mammograph y bi 2-view breast inc cad FARA RICHARDSON Start: 09-12-2017 Dxa bone density jeanne dy 1/> sites axial skel FARA RICHARDSON Cholecystectomy Violet Leonidas Comment on above: bile duct surgery Colonoscopy Violet Leonidas Comment on above: 2012 normal Laser device (physic al object) Violet Lauren Comment on above: eye Plan of Treatment Date Care Activity Detail Author Start: 07-30-2024 ambulatory Ambulatory Facility: [facility] Immunizations Immunization Date Immunization Notes Care Provider Fa cility NEGATED: Highlighted row has not occurred!12-01-2022 SARS-CoV-2 mRNA (tozinameran 5y-11y) vaccine Violet Lauren [facility] Payers Date Payer Category Payer Unknown [id number] 2014 Medicare [id number] 1959 Unknown [id number] 1950 Unknown [id number] 2.16.84 0.1.156439.3.579.2.593 1950 Unknown [id number] 2.16.84 0.1.883369.3.579.2.593 1950 Unknown [id number] 2.16.84 0.1.953781.3.579.2.593 1950 Unknown [id number] 2.16.84 0.1.417269.3.579.2.593 1950 Unknown [id number] 2.16.84 0.1.335015.3.579.2.593 1950 Unknown [id number] 2.16.84 0.1.059531.3.579.2.593 1950 Unknown [id number] 2.16.84 0.1.085814.3.579.2.593 1950 Unknown [id number] 2.16.84 0.1.393821.3.579.2.593 1950 Unknown [id number] 2.16.840 .1.207857.3.579.2.1259 1950 Unknown [id number] 2.16.840 .1.249831.3.579.2.1259 1950 Unknown [id number] 2.16.8 40.1.567340.3.579.2.727 1950 Unknown [id number] 2.16.8 40.1.522568.3.579.2.727 1950 Unknown [id number] 2.16.8 40.1.951507.3.579.2.727 1950 Unknown [id number] 2.16.8 40.1.412667.3.579.2.727 1950 Unknown [id number] 2.16.8 40.1.378776.3.579.2.727 1950 Unknown [id number] 2.16.8 40.1.481769.3.579.2.727 1950 Unknown [id number] 2.16.8 40.1.268409.3.579.2.727 1950 Unknown [id number] 2.16.8 40.1.738199.3.579.2.727 1950 Unknown [id number] 2.16.8 40.1.724447.3.579.2.727 1950 Unknown [id number] 2.16.8 40.1.621442.3.579.2.727 1950 Unknown [id number] 2.16.8 40.1.724970.3.579.2.727 1950 Unknown [id number] 2.16.8 40.1.948769.3.579.2.727 Unknown [id number] Social History Date Type Detail Facility Start: 05-11-2023 Tobacco smoking status Never s moked tobacco (finding) [facility] Tobacco smoking status Never [facility] Sex Assigned At Female [facility] Clinical Note 08-11-2023 Note Date & [...] a surgeon: ? Is certified by the [place] [employer]. To be board certified, a surgeon must go through an approved residency training program and pass a comprehensive exam. You can check your surgeon's board certification at www.abms.org/verify-certification/ ? Has had any problems with state licensing authorities. You can check whether a surgeon has had malpractice claims or other professional problems by going to your state medical board at www.fsmb.org/uxmcybn-y-hpanj-medical-boa rd/ ? Has good ratings from other [...] you are considering is certified by the [place] [employer]. ? Meet with [...] provider. Document Revised: 10/19/2021 Document Reviewed: 10/19/2021 [employer] Patient Education ? 2022 [employer] Clinical Note 08-05-2022 Note Date & Type [...] authenticated by: TAMIR CONLEY Date: 2022-08-04 22:03 [facility] Evaluation + Plan note Note Date & Type Note Facility Evaluation + Plan note Future Appointments Appointment Date:05/30/2023 02:00:00 PM Scheduled Provider: Location:[facility] Appointment Type:FM Medicare Wellness Subsequent Appointment Date:05/30/2023 02:40:00 PM Scheduled Provider:Job Alvarado MD Location:[facility] Appointment Type: Open Diagnostic Tests PendingUrine Culture 05/11/23 [facility] Hospital course Narrative Note Date & Type Note Facility Hospital course Narrative No data available for this section [facility] Hospital Discharge instructions Note Date & Type Note Facility Hospital Discharge instructions No data available for this section [facility] Progress note Note Date & Type Note Facility Progress note No data available for this section [facility] Summary Purpose Family History No Family History Records FoundNo Family History Records FoundNo Family History Records FoundNo Family History Records Found Advance Directives No Advanced Directives Records FoundNo Advanced Directives Records FoundNo Advanced Directives Records FoundNo Advanced Directives Records Found Additional Source Comments INFORMATION SOURCE (unrecogn ized section and content) DATE CREATED AUTHOR 02/13/2018 [facility] DATE CREATED AUTHOR AUTHOR'S ORGANIZ ATION 08/12/2022 [facility] DATE CREATED AUTHOR AUTHOR'S ORGANIZ ATION 08/27/2023 [facility] EPIC DATE CREATED AUTHOR AUTHOR'S ORGANIZ ATION 09/22/2023 [facility] Patient Care team informatio n (unrecognized section and content) Personnel Name: Job Alvarado MD Address: Address: [address] [place], [place] [address] FOR RECORDS PERTAINING TO PATIENTS WHO ARE [...] BE BASED ON THE PRIMARY CLINICAL RECORDS. [facility] [employer] provides no warranty or guarantee of the accuracy or completeness of information in this document.
== END 2023-09-27 09:24 | disposition home or self-care (01) ==
LOC: RAD 09:23
PROVIDERS: PCP Family Medicine; Visit Provider Podiatrist Foot & Ankle Surgery
DX: M79.672 Pain in left foot (principal)
CPT/HCPCS: 73630

== ENCOUNTER 2023-10-17 08:48 | Outpatient (OUT) | payer MEDICARE, SELFPAY ==
--- NOTE | 2023-10-17 08:52 | US_ITS ---
The [address] [address] Patient Name: PAPITO HAYDEN MRN: [id number] date: 1950 Sex: F Assigned Patient Location: [place] Current Patient Location: [facility] Accession/Order Number: [id number] Exam Date: 10/17/2023 08:55 Report Date: 10/17/2023 10:10 At the request of: NETO HERBERT Procedure: US pelvis w/ transvaginal EXAMINATION: US pelvis w/ transvaginal HISTORY: Thickened Endometrium R93.89 COMPARISON: 05/13/2023 FINDINGS: Transabdominal and transvaginal images The uterus is normal in size, contour and echotexture measuring 5.2 x 3.0 x 3.8 cm. No focal mass. The endometrium measures up to 1.8 cm on transvaginal imaging with ill-defined endometrial myometrial junction and fluid The ovaries are not visualized No free fluid US/US pelvis w/ transvaginal IMPRESSION: Thickened appearance of the endometrium containing fluid. This is abnormal in a postmenopausal patient. Electronically authenticated by: KVNG TILLMAN Date: 10/17/2023 10:10
--- OUTSIDE RECORDS SUMMARY | 2023-10-17 09:09 | XMS_ITS | CCD ---
Author Name Unknown Address [address] [place] [address] Organization [facility] Care Team Providers Care Document Review Specialist Name Role Phone FARA RICHARDSON Unavailable Unavailable [...] Attending Unavailable KARNAY, DR CHAUDHARI Admitting Unavailable OAKMAN, DR KVNG Mendoza Consulting Unavailable Job Alvarado. Primary Care Physician [phone] Job Alvarado. Attending Unavailable Ross, Job E. Attending Unavailable Job Alvarado Attending Unavailable Violet Lauren Attending Unavailable Job Alvarado Attending Unavailable Job Alvarado Attending Unavailable VIPUL OBANDO Attending Unavailable Job Alvarado Attending Unavailable Violet Lauren Admitting Unavailable Violet Lauren Attending Unavailable Job Alvarado Admitting Unavailable Job Alvarado Attending Unavailable Job Alvarado Attending Unavailable NETO HERBERT Attending Unavailable ARIEL DAS Attending Unavailable ARIEL DAS Attending Unavailable Allergies Allergy Classification Reported Allergen(s) Allergy Type Date of Onset Reaction(s) Facility (2 sources) atorvastatin; Translations: [atorvastatin] Drug Allergy Unknown (qualifier value) [facility] (2 sources) HYDROmorphone; Translations: [hydromorphone] Drug Allergy Unknown (qualifier value) [facility] (2 sources) Pyrilamine; Translations: [pyrilamine] Drug Allergy Unknown (qualifier value) [facility] (1 source) No Known Medication Allergies; Translations: [No Known Medication Allergies] Propensity to adverse reactions (disorder) [facility] Repository Medications Current Medications Medication Drug Class(es) [...] BID, # 180 tab(s), Refills(s) 0, Pharmacy: [facility] [id number], 162, cm, 05/11/23 9:36:00 EDT, Height/Length Dosing, 74.9, kg, 05/11/23 9:36:00 EDT, Weight Dosing Start Date: 05/11/23 Status: Ordered meloxicam 15 mg oral tablet (1 source) Nonsteroidal Anti-inflammatory Drug Start: 02-27-2023 take 1 tablet by mouth once daily as needed meloxicam 15 mg Tab See Instructions, TAKE ONE TABLET BY MOUTH DAILY NEEDED, # 90 tab(s), Refills(s) 0, Pharmacy: [facility] [id number], 162.6, cm, 12/01/22 15:23:00 EDT, Height/Length Dosing, 76.5, kg, 12/01/22 15:23:00 EDT, Weight Dosing Start Date: 02/27/23 Status: Ordered rosuvastatin calcium 20 mg oral tablet (1 source) HMG-CoA Reductase Inhibitor Start: 02-27-2023 take 1 tablet by mouth once daily rosuvastatin 20 mg Tab See Instructions, TAKE ONE TABLET BY MOUTH DAILY, # 90 tab(s), Refills(s) 0, Pharmacy: [facility] [id number], 162.6, cm, 12/01/22 15:23:00 EDT, Height/Length Dosing, [...] Interpretation Reference Range Facil ity Consultation Noteon 10-03-19 Consultation Note [id number]#1.0 0TIFF Normal [facility] RAD - MISCon 10-03-2023 RAD - MISC [id number] 20 [id number]#1.0 0TIFF Normal [facility] Consultation Noteon 09-29-19 Consultation Note [id number] 20 [id number]#1.0 0TIFF Normal [facility] Consultation Noteon 09-21-19 Consultation Note [id number] 10 [id number]#1.0 0TIFF Normal [facility] Dexa Scanson 09-21-2023 Dexa Scans [id number] 10 [id number]#1.0 0TIFF Normal [facility] Consultation Noteon 09-12-19 Consultation Note [id number] 06 [id number]#1.00 TIFF Normal [facility] Patient Logson 09-02-2023 Patient Logs [id number] 06 [id number]#1.00 TIFF Normal [facility] Ambulatory Visit Summaryon 0 09-01-2023 Ambulatory Visit [...] EST With: Christiano SHORT, Job Harvey Where: [facility] [place] Normal [address] [id number] \.br\ Medications\.br\ What How Much When Instructions\.br\ [...] for choosing us for your care.\.br\ \.br\ [facility] Consultation Noteon 09-01-19 Consultation Note [id number] 10 [id number]#1.0 0TIFF Normal [facility] Family Medicine Office/Clini c Noteon 09-01-2023 Family [...] 96.3 fL (05/11/23) Chloride: 108 mmol/L (05/11/23) Winkler Absolute: 0.4 E9/L (05/11/23) CO2: 27 mmol/L (05/11/23) Winkler Auto: 7.8 % (05/11/23) Creatinine: 1.3 mg/dL [...] Ongoing Ag (more content not included)... Normal [facility] Comment on above: Result Comment: Elec tronically Signed By: VIPUL OBANDO CNP\.kelly\Date and Time Signed: 09/01/23 13:24 EST Patient Educationon 09-01-19 Patient Education Nutrition DASH Eating Plan DASH [...] Herbs. Spices. Seasoni (more content not included)... [facility] Consultation Noteon 08-24-19 Consultation Note [id number] 20 [id number]#1.0 0TIFF [facility] Consultation Note [id number] 20 [id number]#1.0 0TIFF [facility] RAD - CT Reporton 08-24-[address] - [address] Report [id number]#1.0 0TIFF [facility] Operative Reporton Operative Report [id number]#1.0 0TIFF [facility] Patient Correspondenceon Patient Correspondence [id number]#1.0 0TIFF [facility] Provider Letteron 08-12-2023 Provider Letter [address] [place] [address] August 12, 2023 ISAURA RIVERA [address] [address] : [address] Das, The above patient has been evaluated at your request for preoperative clearance. After assessment of available pertinent labs and diagnostic tests, I feel this patient is medically optimized for surgery. Final discretion of whether the patient is cleared for surgery remains up to the surgeon/anesthesiologi st. Thank you, Violet Lauren, DOTTY-Tobi [facility] Ambulatory Visit Summaryon 1 10-12-2022 Ambulatory Visit Summary SHASHI RIVERAJUSTIN Rosado :1950 Visit Date:08/11/2023 Ambulatory Visit Instructions [...] EST With: Christiano SHORT, Job Harvey Where: [facility] [place] Normal [address] [place] [address]- \.br\ Medications\.br\ What How Much When Instructions\.br\ [...] for choosing us for your care.\.br\ \.br\ [facility] ECG 12-Leadon 08-11-2023 ECG 12-Lead [id number] 20 [id number]#1.0 0TIFF Normal [facility] Office/Clini c Noteon 08-11-2023 [facility] Office/Clinic Note HPI Staff Isaura is a [...] Given Postpone due to refusal SARS-CoV-2 mRNA (tojewelsnameran 5y-11y) vac - Not Given Postpone due to refusal pneumococcal 23-valent vaccine 07/24/2019 Recorded pneumococcal 13-valent vaccine 07/21/2018 Recorded hepatitis A adult vaccine 11/08/2016 Recorded hepatitis A adult vaccine 05/05/2016 Recorded influenza virus vaccine, inactivated 07/12/2014 Recorded influenza virus vaccine, inactivated 06/05/2013 Recorded influenza virus vaccine, inactivated 05/18/2012 Recorded influenza virus vaccine, inactivated 05/17/2011 Recorded pneumococcal 23-valent vaccine 06/25/2008 Recorded Normal [facility] Comment on above: Result Comment: Elec tronically Signed By: Christiano SHORT, Job Saldivar.br\Date and Time Signed: 08/11/23 12:57 EST RAD - MISCon 08-10-2023 RAD - MISC [id number] 20 [id number]#1.0 0TIFF [facility] Consultation Noteon 07-07-20 Consultation Note [id number] 10 [id number]#1.0 0TIFF [facility] RAD - MISCon 07-07-2023 RAD - MISC [id number]#1.0 0TIFF [facility] Patient Logson 10-24-2023 Patient Logs [id number] 00 [id number]#1.0 0TIFF [facility] Physician Referralon 023 Physician Referral [id number]#1. 00TIFF [facility] Nurse Consultation Noteon Nurse Consultation Note [...] Given Postpone due to refusal SARS-CoV-2 mRNA (tojewelsnameran 5y-11y) vac - Not Given Postpone due to refusal pneumococcal 23-valent vaccine 07/24/2019 Recorded pneumococcal 13-valent vaccine 07/21/2018 Recorded hepatitis A adult vaccine 11/08/2016 Recorded hepatitis A adult vaccine 05/05/2016 Recorded influenza virus vaccine, inactivated 07/12/2014 Recorded influenza virus vaccine, inactivated 06/05/2013 Recorded influenza virus vaccine, inactivated 05/18/2012 Recorded influenza virus vaccine, inactivated 05/17/2011 Recorded pneumococcal 23-valent vaccine 06/25/2008 Recorded [facility] Outside Colonoscopyon 2022 Outside Colonoscopy [id number] 00 [id number]#1.0 0TIFF [facility] Patient Logson 06-07-2023 Patient Logs [id number] 00 [id number]#1.0 0TIFF Normal [facility] Auth for Release of Medical Recordson 06-01-2023 Auth for Release of Medical Records [id number]#1.0 0TIFF Normal [facility] Family Medicine Office/Clini c Noteon 06-01-2023 Family [...] 05/30/2023 14:34 EDT Summary Preferred Lab : [facility] Preferred Rad : [facility] Patient Counseled : Nutrition, Physical activity Height [...] No actual or suspected pain Leidy Aguilar - 05/30/2023 14:34 EDT Depression Screening [place], [...] 0 ; Comments: 11/29/2022 12:57 EDT - Birtany Daniel LPN bile duct surgery ; Last [...] denies (Last Updated: 05/30/2023 14:35:10 EDT by Lauren Leidy Marlene) Family History Family History (As Of: 05/30/2023 [...] Fall Risk Score : 0 Leidy Aguilar Marlene - 05/30/2023 14:34 EDT Social Determinants (PRAPARE) [...] free o (more content not included)... Normal [facility] Comment on above: Result Comment: Elec tronically Signed By: Job Alvarado MD\.br\Date and Time Signed: 06/01/23 10:38 EDT\.br\Electronically Co-Signed By: Neftaly Wolfe.kelly\Date and Time Co-Signed: 05/30/23 15:29 EDT Auth for Release of Medical Recordson 05-31-2023 Auth for Release of Medical Records [id number]#1.0 0TIFF Normal [facility] Physician Referralon 023 Physician Referral [id number]#1. 00TIFF Normal [facility] Screenson 05-31-2023 Screens [id number]#1. 00TIFF Normal [facility] Ambulatory Visit Summaryon 1 Ambulatory Visit [...] Follow-Up Appointments Tuesday 9:00 AM EDT Where: [facility] Invalid Interpretation Code [address] [place] [address]- \.br\ Someone Will Contact You Regarding These Appointments\.br\ [facility]/30[facility] 15:02:00 EDT, Hypertension [facility] Ambulatory Visit Summary ISAURA RIVERA:1950 Visit Date:05/30/2023 Ambulatory Visit Instructions Your Diagnosis [...] Follow-Up Appointments Tuesday 9:00 AM EDT Where: [facility] Invalid Interpretation Code [address] [place] [address]- \.br\ Someone Will Contact You Regarding These Appointments\.br\ [facility] External Ambulatory Referral, Podiatry, [facility], 05/30/23 15:02:00 EDT, Hypertension [facility] Ambulatory Visit Summary ISAURA RIVERA :1950 Visit [...] Follow-Up Appointments Tuesday 9:00 AM EDT Where: [facility] Normal [address] [place] [address]- \.br\ Medications\.br\ What How Much When Why [...] abdominal pain\.br\ TIA (transient ischemic attack)\.br\ \.br\ [facility] Ambulatory Visit Summary ISAURA RIVERA :1950 Visit [...] Follow-Up Appointments Tuesday 11:00 AM EST Where: [facility] [place] Normal [facility] Family Medicine Office/Clini c Noteon 05-30-2023 Family [...] a nurse visit in 2 weeks. Ordered: [facility] External Ambulatory Referral Medicare Subsequent Visit G0439 2. Hypertensive kidney disease with stage 3a chronic kidney disease (I12.9: Hypertensive chronic kidney disease with stage 1 through stage 4 chronic kidney disease, or unspecified chronic kidney disease) - Working to control Bps to protect the kidneys Ordered: [facility] External Ambulatory Referral 3. Chronic kidney disease, stage 3a (N18.31: Chronic kidney disease, stage 3a) - Will have the patient cut down on the NSAIDs to protect the kidneys Ordered: [facility] External Ambulatory Referral 4. Hypercholesterolemia (E78.00: Pure hypercholesterolemia, unspecified) - Continue on the statin Ordered: [facility] External Ambulatory Referral 5. Postmenopause bleeding (N95.0: Postmenopausal bleeding) - Follow up with Dr. Das Ordered: [facility] External Ambulatory Referral 6. Foot pain, right [...] Daily, # 90 tab(s), Refills(s) 0, Pharmacy: [facility] [id number], 162, cm, 05/30/23 14:36:00 EDT, Height/Length Dosing, 75.9, kg, 05/30/23 14:35:00 EDT, Weight Dosing losartan, See Instructions, Take 1 tab in am and 2 in pm, # 270 tab(s), Refills(s) 3, Pharmacy: [facility] [id number], 162.6, cm, 12/01/22 15:23:00 EDT, Height/Length Dosing, 76.5, kg, 12/01/22 15:23:00 EDT, Weight Dosing rosuvastatin, See Instructions, TAKE ONE TABLET BY MOUTH DAILY, # 90 tab(s), Refills(s) 0, Pharmacy: [facility] [id number], 162, cm, 05/30/23 14:36:00 EDT, Height/Length Dosing, [...] immunization status assessed 1030F Lab Specimen Collect 48917 Lipid Panel Medication list documented in medical [...] Medications aspir (more content not included)... Normal [facility] Comment on above: Result Comment: Elec tronically Signed By: Christiano SHORT, Job Saldivar.br\Date and Time Signed: 05/30/23 15:10 EDT Lipid Panelon 05-30-2023 Cholesterol [Mass/Vol] 206 mg/dL High 120-200 [facility] Comment on above: Performed By: #### 2 [id number] #### [facility] [address] [place] [address] Cholesterol in HDL [Mass/Vol] 61 mg/dL Invalid Interpretation Code [facility] Comment on above: Result Comment: HDL > or equal to 60 mg/dL: Low cardiovascular risk HDL < 40 mg/dL : High cardiovascular risk Performed By: #### 2 [id number] #### [facility] [address] [place] [address] Cholesterol in LDL [Mass/Vol] 111 mg/dL Normal <=129 [facility] Comment on above: Performed By: #### 2 [id number] #### [facility] [address] [place] [address] Cholesterol in VLDL [Mass/Vol] 35 mg/dL Normal 7-40 [facility] Comment on above: Performed By: #### 2 [id number] #### [facility] [address] [place] [address] Triglyceride [Mass/Vol] 177 mg/dL High <=149 [facility] Comment on above: Performed By: #### 2 904794 #### [facility] [address] [place] [address] Patient Educationon 05-30-20 Patient Education Caregiving Fall [...] night-lights. ? Place frequently used items in fbht-yy-cpusa places. Lower the shelves around your home [...] the way. ? Do not use floor mohawk or wax that makes floors slippery. If [...] include working with a physical therapist or corporate sales trainer to improve your strength, balance, and endurance. Where to find more information ? Centers for Disease Control and Prevention, [place]: www.cdc.gov ? National [place] on Aging: www.brandy.nih.gov Contact a health care [...] health ca (more content not included)... Normal [facility] Pre-Visit Planningon 023 Pre-Visit Planning - From: Daly Joy RN To: Job Alvarado MD; Sent: 05/27/2023 13:37:55 EDT Subject: Pre-Visit Planning Due Date/Time: 05/27/2023 13:37:00 EDT Caller Name: ISAURA RIVERA; Caller Number: Adrian , M Hi Dr. Alvarado, *Based on your response [...] feel free to contact me at extension [phone]. Thank you! ARLENE Limon, RN, CCM, CCDS, CCDS-O From: Job Alvarado MD To: Daly Joy RN; Sent: 05/30/2023 13:07:52 EDT Subject: RE: Pre-Visit Planning Caller Name: ISAURA RIVERA; Caller Number: Adrian , M Please add 3A Normal [address] [facility] C Urineon 05-13-2023 Bacteria identified Cx Nom (U) Microbiology PROCEDURE: Urine Culture [R1] SOURCE: U CleanCatch BODY SITE: COLLECTED DATE/TIME: 05/11/2023 12:05 EDT RECEIVED DATE/TIME: 05/11/2023 18:38 EDT START DATE/TIME: 05/11/2023 19:05 EDT FREE TEXT SOURCE: Violet Allen, Violet Rosado FINAL REPORTS Final Report [] Verified Date/Time: 05/13/2023 10:07 EDT <10,000 cfu/ml Mixed skin contaminants Performing Locations R1: This test was performed at: [facility], [address] [place] [address], [facility]- , , [facility] Comment on above: Performed By: #### 2 [id number], [id number] ####[facility] [address] [place] [address] RAD - Ultrasound Reporton RAD - Ultrasound Report [id number]#1.0 0CD:127 [facility] RAD - Ultrasound Report [id number]#1.0 0CD:127 [facility] Ambulatory Visit Summaryon 0 05-11-2023 Ambulatory [...] Appointments Tuesday 2:00 PM EDT With: Where: [facility] Normal [address] [place] [address]- \.br\ Medications\.br\ What How Much When Instructions\.br\ [...] abdominal pain\.br\ TIA (transient ischemic attack)\.br\ \.br\ [facility] Amylaseon 05-11-2023 Amylase [Catalytic activity/Vol] 74 U/L Normal 25-157 [facility] Comment on above: Performed By: #### 2 676936, 8659263, 1350445, 2687072, 3306463, [id number] ####[facility] [address] [place] [address] Auto Diffon 05-11-2023 Basophils/100 WBC (Bld) 0.8 % Normal 0.0-2.0 [facility] Comment on above: Order Comment: Order Added by Discern Expert. Performed By: #### 2 897326, 5886752, 6338429, 9540178, 0770374, [id number] ####[address] [place] [address] Basophils/Leukocyte s Auto (Bld) [Pure # fraction] 0.0 E9/L Normal 0.0-0.2 [facility] Comment on above: Order Comment: Order Added by Discern Expert. Performed By: #### 2 566811, 8046412, 4889337, 9400132, 2713341, 48407479 ####[address] [place] [address] Eosinophils/100 WBC (Bld) 5.2 % Normal 0.0-8.0 [facility] Comment on above: Order Comment: Order Added by Discern Expert. Performed By: #### 2 844000, 6691611, 7914706, 9513826, 5421954, 99646021 ####[address] [address] Eosinophils/Leukocy ambrosio Auto (Bld) [Pure # fraction] 0.3 E9/L Normal 0.0-0.5 [facility] Comment on above: Order Comment: Order Added by Discern Expert. Performed By: #### 2 930729, 9706476, 1562924, 5514321, 9711821, 15608551 ####[address] [place] [address] Lymphocytes/100 WBC (Bld) 31.3 % Normal 14.0-50.0 [facility] Comment on above: Order Comment: Order Added by Discern Expert. Performed By: #### 2 864028, 9601223, 3585814, 6756097, 9259548, 68317953 ####[address] [place] [address] Lymphocytes/Leukocy ambrosio Auto (Bld) [Pure # fraction] 1.8 E9/L Normal 1.0-4.0 [facility] Comment on above: Order Comment: Order Added by Discern Expert. Performed By: #### 2 581842, 1514802, 4977508, 0859910, 6501739, 19889244 ####[address] [address] Monocytes/100 WBC (Bld) 7.8 % Normal 4.0-14.0 [facility] Comment on above: Order Comment: Order Added by Discern Expert. Performed By: #### 2 535637, 1850767, 8264291, 1908204, 5075772, 05621869 ####[address] [address] Monocytes/Leukocyte s Auto (Bld) [Pure # fraction] 0.4 E9/L Normal 0.2-1.0 [facility] Comment on above: Order Comment: Order Added by Discern Expert. Performed By: #### 2 907231, 9821993, 7468699, 5552948, 7181954, 23018783 ####[address] [address] Neutrophils/100 WBC (Bld) 54.9 % Normal 36.0-75.0 [facility] Comment on above: Order Comment: Order Added by Discern Expert. Performed By: #### 2 099477, 9330613, 1234416, 8940626, 1063149, 13585192 ####[address] [address] Neutrophils/Leukocy ambrosio Auto (Bld) [Pure # fraction] 3.1 E9/L Normal 2.0-7.5 [facility] Comment on above: Order Comment: Order Added by Discern Expert. Performed By: #### 2 453270, 8819742, 4912447, 6668647, 1257800, 62957538 ####[facility] [address] [place] [address] CBC w/ Auto Diffon 3 Erythrocyte distribution width (RBC) [Ratio] 12.9 % Normal 10.9-14.2 [facility] Comment on above: Performed By: #### 2 289818, 1789645, 4280319, 5933050, 6565233, 33358516 #### [facility] [address] [place] [address] Hematocrit (Bld) [Volume fraction] 34.9 % Normal 34.0-46.0 [facility] Comment on above: Performed By: #### 2 879494, 1447817, 7228004, 9569959, 3454400, 32319435 #### [facility] [address] [place] [address] Hemoglobin (Bld) [Mass/Vol] 11.8 g/dL Low 12.0-16.0 [facility] Comment on above: Performed By: #### 2 215313, 5876417, 7437591, 7879755, 0232577, 68839234 #### [facility] [address] [place] [address] MCH (RBC) [Entitic mass] 32.6 pg Normal 27.0-34.0 [facility] Comment on above: Performed By: #### 2 935657, 6501961, 6708049, 6030297, 3913615, 09792635 #### [facility] [address] [place] [address] MCHC (RBC) [Mass/Vol] 33.9 g/dL Normal 31.4-36.0 [facility] Comment on above: Performed By: #### 2 080500, 3881928, 2310646, 3843757, 7269880, 49115190 #### [facility] [address] [place] [address] MCV (RBC) [Entitic vol] 96.3 fL Normal 80.0-100.0 [facility] Comment on above: Performed By: #### 2 826827, 6020534, 8584767, 7836003, 3429334, 08674937 #### [facility] [address] [id number] Platelet mean volume (Bld) [Entitic vol] 8.2 fL Normal 6.4-10.8 [facility] Comment on above: Performed By: #### 2 346032, 1394280, 2274522, 0315773, 5525384, 78441308 #### [facility] [address] [place] [address] Platelets (Bld) [#/Vol] 275.0 E9/L Normal 150.0-500.0 [facility] Comment on above: Performed By: #### 2 514017, 7055360, 2669736, 0390669, 9723402, 88334935 #### [facility] [address] [place] [address] RBC (Bld) [#/Vol] 3.6 E12/L Low 4.3-5.9 [facility] Comment on above: Performed By: #### 2 886878, 4580897, 6899698, 9224310, 8942797, 95069105 #### [facility] [address] [place] [address] WBC corrected for nucl RBC Auto (Bld) [#/Vol] 5.6 E9/L Normal 4.0-11.0 [facility] Comment on above: Performed By: #### 2 145203, 0312350, 6746668, 7381883, 5084363, 56526726 #### [facility] [address] [place] [address] CHEMISTRYOrdered By: SYSTEM SYSTEM on 05-11-2023 Albumin [...] 10 mmol/L Normal 6 - 16 mEq/L FT Remisol AST [Catalytic activity/Vol] 23 [iU]/d Normal 5 - 43 Int._Unit/L FT Remisol Bilirubin [Mass/Vol] 0.6 mg/dL Normal 0.0 - 1.1 mg/dL [facility] Calcium [Mass/Vol] 9.5 mg/dL Normal 8.9 - 11.1 mg/dL [facility] Chloride [Moles/Vol] 108 mmol/L Normal 101 - 111 mmol/L [facility] CO2 [Moles/Vol] 27 mmol/L Normal 21 - 31 mmol/L FT [facility] Creatinine [Mass/Vol] 1.3 mg/dL Normal 0.5 - 1.3 mg/dL FT Remisol GFR/1.73 sq M.predicted among non-blacks MDRD (S/P/Bld) [Vol rate/Area] 44 mL/min/1.73 m2 Low >=59mL/min/1.73 m2 [facility] Chem S Globulin (S) [Mass/Vol] 3.2 g/dL Normal 1.4 - 4.0 gm/dL FT Remisol Glucose [Mass/Vol] 93 mg/dL Normal 55 - 199 mg/dL FT [facility]isol Lipase [Catalytic activity/Vol] 46 U/L Normal 13 - 58 unit/L FT Remisol Potassium [Moles/Vol] 4.3 mmol/L Normal 3.5 - 5.3 mmol/L FT Remisol Protein [Mass/Vol] 7.5 g/dL Normal 6.0 - 7.8 gm/dL F C Remisol Sodium [Moles/Vol] 141 mmol/L Normal 135 - 145 mmol/L FT Remisol Urea nitrogen [Mass/Vol] 21 mg/dL Normal 5 - 21 mg/dL FT Remisol Urea nitrogen/Creatinine [Mass ratio] 16 mg/mg Normal - [facility] Remisol CMPon 05-11-2023 Albumin [Mass/Vol] 4.3 g/dL Normal 3.3-5.0 [facility] Comment on above: Performed By: #### 2 084533, 7470924, 9870007, 6945066, 5755302, 04777542 ####[facility] [address] [place] [address] Albumin/Globulin (S) [Mass conc ratio] 1.3 Normal 1.1-2.2 [facility] Comment on above: Performed By: #### 2 170310, 7004433, 0353229, 1317837, 1083374, 64035382 ####[facility] [address] [place] [address] ALP [Catalytic activity/Vol] 46 Int._Unit/L Normal 21-98 [facility] Comment on above: Performed By: #### 2 467019, 1604720, 5137007, 8503575, 1745637, 42118405 ####[facility] [address] [place] [address] ALT No additional P-5'-P [Catalytic activity/Vol] 16 Int._Unit/L Normal 6-46 [facility] Comment on above: Performed By: #### 2 544000, 6209708, 9085504, 0005173, 7150191, 09380715 ####[facility] [address] [place] [address] Anion gap [Moles/Vol] 10 mmol/L Normal 6-16 [facility] Comment on above: Performed By: #### 2 356621, 1167181, 0942466, 2030035, 4979564, 08351494 ####[facility] [address] [place] [address] AST [Catalytic activity/Vol] 23 Int._Unit/L Normal 5-43 [facility] Comment on above: Performed By: #### 2 673144, 7913217, 0168839, 8724882, 7135838, 54034168 ####[facility] [address] [place] [address] Bilirubin [Mass/Vol] 0.6 mg/dL Normal 0.0-1.1 [facility] Comment on above: Performed By: #### 2 054755, 1336145, 8272315, 9605109, 6585659, 36427557 ####[facility] [address] [place] [address] Calcium [Mass/Vol] 9.5 mg/dL Normal 8.9-11.1 [facility] Comment on above: Performed By: #### 2 943605, 7216474, 0264603, 4123975, 3698694, 64388627 ####[facility] [address] [place] [address] Chloride [Moles/Vol] 108 mmol/L Normal 101-111 [facility] Comment on above: Performed By: #### 2 165966, 2207285, 6319551, 5744399, 0087755, 54075583 ####[facility] [address] [place] [address] CO2 [Moles/Vol] 27 mmol/L Normal 21-31 [facility] Comment on above: Performed By: #### 2 507720, 3378582, 4013810, 0157849, 5029532, 97027610 ####[facility] [address] [place] [address] Creatinine [Mass/Vol] 1.3 mg/dL Normal 0.5-1.3 [facility] Comment on above: Performed By: #### 2 577327, 1740168, 2264684, 0873440, 2831392, 39137407 ####[facility] [address] [place] [address] Globulin (S) [Mass/Vol] 3.2 g/dL Normal 1.4-4.0 [facility] Comment on above: Performed By: #### 2 592117, 4429007, 8316261, 5770014, 7238920, 76778971 ####[facility] [address] [place] [address] Glucose [Mass/Vol] 93 mg/dL Normal 55-199 [facility] Comment on above: Result Comment: If t his glucose result represents a fasting glucose, interpretation should refer to the following reference range: 55-99 mg/dL Performed By: #### 2 328802, 3864401, 1477314, 3184784, 3714611, 17019907 ####[facility] [address] [place] [address] Potassium [Moles/Vol] 4.3 mmol/L Normal 3.5-5.3 [facility] Comment on above: Performed By: #### 2 311164, 5726174, 0670580, 1220062, 3423928, 91365803 ####[facility] [address] [place] [address] Protein [Mass/Vol] 7.5 g/dL Normal 6.0-7.8 [facility] Comment on above: Performed By: #### 2 397225, 8188916, 3883482, 5964179, 6944907, 23801034 ####[facility] [address] [place] [address] Sodium [Moles/Vol] 141 mmol/L Normal 135-145 [facility] Comment on above: Performed By: #### 2 963251, 6734022, 4200218, 1500808, 5375637, 60161113 ####[facility] [address] [place] [address] Urea nitrogen [Mass/Vol] 21 mg/dL Normal 5-21 [facility] Comment on above: Performed By: #### 2 093230, 1962667, 3471050, 8236097, 0443426, 52853763 ####[facility] [address] [place] [address] Urea nitrogen/Creatinine [Mass ratio] 16 No Units Normal 10-20 [facility] Comment on above: Performed By: #### 2 585749, 3288720, 5369913, 3236352, 0865737, 16401873 ####[facility] [address] [id number] Family Medicine Office/Clini c Notejustin 05-11-2023 Family Medicine Office/Clinic Note HPI Staff [...] BID, # 180 tab(s), Refills(s) 0, Pharmacy: [facility] [id number], 162, cm, 05/11/23 9:36:00 EDT, Height/Length Dosing, [...] BID, # 180 tab(s), Refills(s) 0, Pharmacy: [facility] [id number], 162, cm, 05/11/23 9:36:00 EDT, Height/Length Dosing, [...] BID, # 180 tab(s), Refills(s) 0, Pharmacy: [facility] [id number], 162, cm, 05/11/23 9:36:00 EDT, Height/Length Dosing, 74.9, kg, 05/11/23 9:36:00 EDT, Weight Dosing Amylase Level CBC w/ Auto Diff Comprehensive Metabolic Panel Lipase Level UA With Cult Reflex 5. Non-smoker (Z78.9: Other specified health status) continue not smoking Ordered: losartan, 25 mg = 1 tab(s), Oral, BID, # 180 tab(s), Refills(s) 0, Pharmacy: [facility] [id number], 162, cm, 05/11/23 9:36:00 EDT, Height/Length Dosing, [...] Instructions Allergies (more content not included)... Normal [facility] Comment on above: Result Comment: Elec [...] 275.0 E9/L Normal 150.0 - 500.0 E9/L [facility] HemeAutoSS RBC (Bld) [#/Vol] 3.6 E12/L Low 4.3 - 5.9 E12/L FT HemeAutoSS WBC corrected for nucl RBC Auto (Bld) [#/Vol] 5.6 E9/L Normal 4.0 - 11.0 E9/L FT HemeAutoSS Lipase Levelon 05-11-2023 Lipase [Catalytic activity/Vol] 46 U/L Normal 13-58 [facility] Comment on above: Performed By: #### 2 222620, 1443139, 0765738, 1650646, 8369169, 36111126 ####[facility] [address] [place] [address] UA With Cult Reflexon 2022 Bacteria LM Ql (Urine sed) TRACE Normal Trace [facility] Comment on above: Performed By: #### 2 822239, 39007103 ####[facility] [address] [place] [address] Bilirubin Ql (U) Negative Normal Negative [facility] Comment on above: Performed By: #### 2 689253, 36713927 ####[facility] [address] [place] [address] Clarity (U) CLEAR Normal Clear [facility] Comment on above: Performed By: #### 2 627646, 24989432 ####[address] [address] Color (U) YELLOW Normal Yellow [facility] Comment on above: Performed By: #### 2 830186, 23769177 ####[facility] [address] [place] [address] Crystals LM Ql (Urine sed) Present Normal [facility] Comment on above: Performed By: #### 2 781968, 97014861 ####[address] [address] Epithelial cells.squamous LM.HPF (Urine sed) [#/Area] 5-8 Normal 0-2 [facility] Comment on above: Performed By: #### 2 155274, 56585284 ####[facility] [address] [place] [address] Glucose Test strip (U) [Mass/Vol] Negative Normal Negative [facility] Comment on above: Performed By: #### 2 194653, 20080443 ####[facility] [address] [place] [address] Hemoglobin Ql (U) TRACE Abnormal Negative [facility] Comment on above: Performed By: #### 2 806886, 86998831 ####[facility] [address] [place] [address] Ketones (U) [Mass/Vol] Negative Normal Negative [facility] Comment on above: Performed By: #### 2 781774, 93564234 ####[facility] [address] [place] [address] Norton.plasma/Lith ium.RBC (Bld) [Mass ratio] 0-3 Normal 0-3 [facility] Comment on above: Performed By: #### 2 256907, 97067700 ####[facility] [address] [place] [address] Mucus Ql (Urine sed) 2+ Normal [facility] Comment on above: Performed By: #### 2 641992, 33831273 ####[facility] [address] [place] [address] Nitrite Ql (U) Negative Normal Negative [facility] Comment on above: Performed By: #### 2 114248, 39966560 ####[facility] [address] [place] [address] pH (U) 7.0 [pH] Invalid Interpretation Code 5.0-9.0 [facility] Comment on above: Performed By: #### 2 947169, 38524606 ####[facility] [address] [place] [address] Protein (U) [Mass/Vol] Negative Normal Negative [facility] Comment on above: Performed By: #### 2 864811, 57393197 ####[facility] [address] [place] [address] Specific gravity (U) [Rel density] 1.010 Invalid Interpretation Code 1.005-1.030 [facility] Comment on above: Performed By: #### 2 475232, 02792244 ####[facility] [address] [place] [address] Type of Urine collection method Clean Catch Normal [facility] Comment on above: Performed By: #### 2 388055, 29831773 ####[facility] [address] [place] [address] Urobilinogen Qn (U) 0.2 {Leon'U}/dL Normal 0.0-1.0 [facility] Comment on above: Performed By: #### 2 606931, 03191882 ####[facility] [address] [place] [address] WBC Auto Ql (U) 1+ Abnormal Negative [facility] Comment on above: Performed By: #### 2 750208, 02180743 ####[facility] [address] [place] [address] WBC LM.HPF (Urine sed) [#/Area] 0-5 Normal 0-5 [facility] Comment on above: Performed By: #### 2 409109, 11976566 ####[facility] [address] [place] [address] URINALYSISOrdered By: Dinah murray on 05-11-2023 Bacteria [...] PM) Normal Negative [facility] UA Auto SS Norton.plasma/Lith ium.RBC (Bld) [Mass ratio] 0-3 /HPF Normal 0-3/HPF FT UA Auto SS Mucus Ql (Urine sed) 2+ (05/11/23 12:05 PM) Normal FT UA Auto SS Nitrite Ql (U) Negative (05/11/23 12:05 PM) Normal Negative FT UA Auto SS pH (U) 7.0 *NA* (05/11/23 12:05 PM) Invalid Interpretation Code 5.0 - 9.0 [facility] UA Auto SS Protein (U) [Mass/Vol] Negative (05/11/23 12:05 PM) Normal Negative FT UA Auto SS Specific gravity (U) [Rel density] 1.010 *NA* (05/11/23 12:05 PM) Invalid Interpretation Code 1.005 - 1.030 FT UA Auto SS UA Spec Desc Clean Catch (05/11/23 12:05 PM) Normal [facility] UA Auto SS Urobilinogen Qn (U) 0.2127484 {Leon'U}/dL Normal 0.0 - 1.0 EU/dL FT UA Auto SS WBC Auto Ql (U) 1+ *ABN* (05/11/23 12:05 PM) Invalid Interpretation Code Negative FT UA Auto SS WBC LM.HPF (Urine sed) [#/Area] 0-5 /HPF Normal 0-5/HPF FT UA Auto SS eGFRon 05-11-2023 GFR/1.73 sq M.predicted among non-blacks MDRD (S/P/Bld) [Vol rate/Area] 44 mL/min/1.73 m2 Low >=59 [facility] Comment on above: Order Comment: Order added by Discern Expert. Result Comment: Account Support Rep sommer kidney disease could be indicated at eGFR's of less than 60 mL/min/1.73m2. Kidney failure is indicated at less than 15 mL/min/1.73m2. Performed By: #### 2 942800, 0038447, 8764830, 4767514, 8282171, 65582643 ####[facility] [address] [place] [address] Outside Mammographyon 2022 Outside Mammography [id number]#1.0 0CD:127 Normal [facility] Consultation Noteon 02-02-20 Consultation Note [id number] 0CD:127 Normal [facility] Family Medicine Office/Clini c Noteon 12-02-2022 [...] were not effective. The patient saw her home organizer for her annual checkup and was diagnosed with glaucoma. She underwent laser treatment of bilateral eyes. She has a follow-up appointment with him next week. The patient states that for the last 3 years, she has been seeing double out of her left eye. Her home organizer informed her that it was ghost shadows. [...] after patient or guardian consented to allow Envysionjustin Juan Humphrey to record this visit. YAA site identification specialist and provider reviewed before signing. YAA: [...] mg Tab, (more content not included)... Normal [facility] Comment on above: Result Comment: Elec tronically Signed By: Job Alvarado MD\.br\Date and Time Signed: 12/02/22 13:01 EDT\.br\Electronically Co-Signed By: Angeline Wong\.br\Date and Time Co-Signed: 12/01/22 16:53 EDT Patient Logson 11-15-2022 Patient Logs [id number] CD:127 Normal [facility] Patient Logson 11-03-2022 Patient Logs [id number] 0CD:127 Normal [facility] CULTURE URINEon 07-06-2022 CULTURE URINE Culture Observations : LIGHT GROWTH OF MIXED GENITAL NAN. NO POTENTIAL PATHOGENS SEEN. Normal [facility] Comment on above: Performed By: #### U RCX #### [facility] [address] [place] [address] Dr. Melchor Brock UA (CLEAN/CATCH) MICROSCOPIC IF INDICATEon 07-06-2022 Bilirubin Ql (U) Negative Normal NEGATIVE [facility] Comment on above: Performed By: #### U MICRO, UARMICR #### [facility] [address] [place] [address] Dr. Melchor Brock Clarity (U) CLEAR Normal CLEAR [facility] Comment on above: Performed By: #### U MICRO, UARMICR #### [facility] [address] [place] [address] Dr. Melchor Brock Color (U) LT. YELLOW Normal YELLOW [facility] Comment on above: Performed By: #### U MICRO, UARMICR #### [facility] [address] [place] [address] Dr. Melchor Brock Glucose Ql (U) Negative Normal NEGATIVE [facility] Comment on above: Performed By: #### U MICRO, UARMICR #### [facility] [address] [address] [address] Melchor Brock Hemoglobin Ql (U) TRACE-INTACT Abnormal NEGATIVE [facility] Comment on above: Performed By: #### U MICRO, UARMICR #### [facility] [address] [place] [address] Dr. Melchor Brock Ketones Ql (U) Negative Normal NEGATIVE [facility] Comment on above: Performed By: #### U MICRO, UARMICR #### [facility] [address] [place] [address] Dr. Melchor Brock LEUKOCYTES TRACE Abnormal NEGATIVE [facility] Comment on above: Performed By: #### U MICRO, UARMICR #### [facility] [address] [place] [address] Dr. Melchor Brock Nitrite Ql (U) Negative Normal NEGATIVE [facility] Comment on above: Performed By: #### U MICRO, UARMICR #### [facility] [address] [place] [address] Dr. Melchor Brock pH (U) 6.0 [pH] Normal 5-9 [facility] Comment on above: Performed By: #### U MICRO, UARMICR #### [facility] [address] [place] [address] Dr. Melchor Brock SPEC GRAVITY 1.020 Normal 1.005-<=1.025 [facility] Comment on above: Performed By: #### U MICRO, UARMICR #### [facility] [address] [place] [address] Dr. Melchor Brock UA PROTEIN Negative Normal NEGATIVE/ TRACE [facility] Comment on above: Performed By: #### U MICRO, UARMICR #### [facility] [address] [address] [address] Melchor Brock UR MICRO IND INDICATED Normal [facility] Comment on above: Performed By: #### U MICRO, UARMICR #### [facility] [address] [place] [address] Dr. Melchor Brock Urobilinogen Qn (U) 0.2 {Leon'U}/dL Normal 0.2 - 1. 0 [facility] Comment on above: Performed By: #### U MICRO, UARMICR #### [facility] [address] [place] [address] Dr. Melchor Brock URINE MICROSCOPIC ONLYon BACTERIA NONE SEEN Normal NONE SEEN [facility] Comment on above: Performed By: #### G SHON, LIPID #### [facility] [address] [place] [address] Dr. Melchor Brock Bacteria identified Cx Nom (U) CX ALREADY ORDERED Normal [facility] Comment on above: Performed By: #### G SHON, LIPID #### [facility] [address] [place] [address] Dr. Melchor Brock CAST NONE SEEN Normal NONE SEEN [facility] Comment on above: Performed By: #### G SHON, LIPID #### [facility] [address] [place] [address] Dr. Melchor Brock Crystals LM Nom (Urine sed) NONE SEEN Normal NONE SEEN [facility] Comment on above: Performed By: #### G SHON, LIPID #### [facility] [address] [place] [address] Dr. Melchor Brock Epithelial cells LM Ql (Urine sed) RARE Normal NONE SEEN /RARE [facility] Comment on above: Performed By: #### G SHON, LIPID #### [facility] [address] [place] [address] Dr. Melchor Brock MUCOUS NONE SEEN Normal NONE SEEN [facility] Comment on above: Performed By: #### G SHON, LIPID #### [facility] [address] [place] [address] Dr. Melchor Brock RBC 0-2 Normal 0-2 [facility] Comment on above: Performed By: #### G SHON, LIPID #### [facility] [address] [address] [address] Melchor Brock WBC 0-2 Abnormal NONE SEEN [facility] Comment on above: Performed By: #### G SHON, LIPID #### [facility] [address] [address] [address] Melchor Brock MG MAMM SCREEN 3D SARAHI CADon 03-15-2022 MG MAMM SCREEN 3D SARAHI CAD Patient: ISAURA RIVERA Exam Date: 03/15/2022 : 1950 Gender:F Ordering : DR FARA RICHARDSON . Admission #: [id number] Family : Order #: [id number] CLICK HERE TO VIEW EXAM RADIOLOGY REPORT [...] lung cancer at age 72. LOCATION: [facility] BREAST COMPOSITION: Heterogeneously dense,which may obscure [...] M.D. on 03/15/2022 at 11:41 Normal [facility] GLUCOSE BLOODon 02-09-2022 Glucose [Mass/Vol] 99 mg/dL Normal 74-106 [facility] Comment on above: Performed By: #### G SHON, LIPID #### [facility] [address] [address] [address] Melchor Brock LIPID PROFILEon 02-09-2022 CHOL-HDL RATIO NORM SEE BELOW Normal [facility] Comment on above: Result Comment: 3.3 - 4.4 LOW RISK 4.4 - 7.1 AVERAGE RISK 7.1 - 11.0 MODERATE RISK >11.0 HIGH RISK Performed By: #### G SHON, LIPID #### [facility] [address] [address] [address] Melchor Brock Cholesterol [Mass/Vol] 202 mg/dL Critically high <=200 [facility] Comment on above: Performed By: #### G SHON, LIPID #### [facility] [address] [address] [address] Melchor Brock Cholesterol in HDL [Mass/Vol] 56 mg/dL Normal 40-60 [facility] Comment on above: Performed By: #### G SHON, LIPID #### [facility] [address] [address] [address] Melchor Brock Cholesterol in LDL [Mass/Vol] 112.6 mg/dL Normal [facility] Comment on above: Performed By: #### G SHON, LIPID #### [facility] [address] [address] [address] Melchor Brock Cholesterol.total/C holesterol in HDL [Mass ratio] 3.6 {ratio} Normal [facility] Comment on above: Performed By: #### G SHON, LIPID #### [facility] [address] [address] [address] Melchor Brock HDL NORMAL > or = 60 mg/dl - LO W CARDIOVASCULAR RISK <40 mg/dl - HIGH CARDIOVASCULAR RISK Normal [facility] Comment on above: Performed By: #### G SHON, LIPID #### [facility] [address] [id number] Melchor Brock LDL CALC NORMAL SEE BELOW Normal [facility] Comment on above: Result Comment: <100 mg/dl OPTIMAL 100 - 129 mg/dl NEAR OR ABOVE OPTIMAL 130 - 159 mg/dl BORDERLINE HIGH 160 - 189 mg/dl HIGH >190 mg/dl VERY HIGH Performed By: #### G SHON, LIPID #### [facility] [address] [address] [address] Melchor Brock Triglyceride [Mass/Vol] 167 mg/dL Critically high <=150 [facility] Comment on above: Performed By: #### G SHON, LIPID #### [facility] [address] [address] [address] Melchor Brock VLDL CALC 33.4 mg/dL Normal [facility] Comment on above: Performed By: #### G SHON, LIPID #### [facility] [address] [address] [address] Melchor Brock LIPID PROFILEon 11-05-2021 CHOL-HDL RATIO NORM SEE BELOW Normal [facility] Comment on above: Result Comment: 3.3 - 4.4 LOW RISK 4.4 - 7.1 AVERAGE RISK 7.1 - 11.0 MODERATE RISK >11.0 HIGH RISK Performed By: #### L IPID, BMP #### [facility] [address] [address] [address] Melchor Brock Cholesterol [Mass/Vol] 244 mg/dL Critically high <=200 [facility] Comment on above: Performed By: #### L IPID, BMP #### [facility] [address] [address] [address] Melchor Brock Cholesterol in HDL [Mass/Vol] 60 mg/dL Normal 40-60 [facility] Comment on above: Performed By: #### L IPID, BMP #### [facility] [address] [address] [address] Melchor Brock Cholesterol in LDL [Mass/Vol] 158.4 mg/dL Normal [facility] Comment on above: Performed By: #### L IPID, BMP #### [facility] [address] [address] [address] Melchor Brock Cholesterol.total/C holesterol in HDL [Mass ratio] 4.1 {ratio} Normal [facility] Comment on above: Performed By: #### L IPID, BMP #### [facility] [address] [address] [address] Melchor Brock HDL NORMAL > or = 60 mg/dl - LO W CARDIOVASCULAR RISK <40 mg/dl - HIGH CARDIOVASCULAR RISK Normal [facility] Comment on above: Performed By: #### L IPID, BMP #### [facility] [address] [place] [address] Dr. Melchor Brock LDL CALC NORMAL SEE BELOW Normal [facility] Comment on above: Result Comment: <100 mg/dl OPTIMAL 100 - 129 mg/dl NEAR OR ABOVE OPTIMAL 130 - 159 mg/dl BORDERLINE HIGH 160 - 189 mg/dl HIGH >190 mg/dl VERY HIGH Performed By: #### L IPID, BMP #### [facility] [address] [place] [address] Dr. Melchor Brock Triglyceride [Mass/Vol] 128 mg/dL Normal <=150 [facility] Comment on above: Performed By: #### L IPID, BMP #### [facility] [address] [place] [address] Dr. Melchor Brock VLDL CALC 25.6 mg/dL Normal [facility] Comment on above: Performed By: #### L IPID, BMP #### [facility] [address] [place] [address] Dr. Melchor Brock PROF CHEM 8 (BAS METB)on Anion gap [Moles/Vol] 10.7 mmol/L Normal [facility] Comment on above: Performed By: #### L IPID, BMP #### [facility] [address] [place] [address] Dr. Melchor Brock Calcium [Mass/Vol] 7.8 mg/dL Critically low 8.4-10.2 [facility] Comment on above: Performed By: #### L IPID, BMP #### [facility] [address] [place] [address] Dr. Melchor Brock Chloride [Moles/Vol] 103 mmol/L Normal 98-107 [facility] Comment on above: Performed By: #### L IPID, BMP #### [facility] [address] [place] [address] Dr. Melchor Brock CO2 [Moles/Vol] 28.4 mmol/L Normal 22.0-30.0 [facility] Comment on above: Performed By: #### L IPID, BMP #### [facility] [address] [address] [address] Melchor Brock Creatinine [Mass/Vol] 1.05 mg/dL Critically high 0.52-1.04 [facility] Comment on above: Performed By: #### L IPID, BMP #### [facility] [address] [address] [address] Melchor Brock EGFR-AF DJIBOUTIAN >60 Normal >=60 [facility] Comment on above: Performed By: #### L IPID, BMP #### [facility] [address] [address] [address] Melchor Brock EGFR-NON AF DJIBOUTIAN 52 mL/min/1.73m2 Critically low >=60 [facility] Comment on above: Performed By: #### L IPID, BMP #### [facility] [address] [address] [address] Melchor Brock Glucose [Mass/Vol] 98 mg/dL Normal 74-106 [facility] Comment on above: Performed By: #### L IPID, BMP #### [facility] [address] [address] [address] Melchor Brock Potassium [Moles/Vol] 4.1 mmol/L Normal 3.4-5.0 [facility] Comment on above: Performed By: #### L IPID, BMP #### [facility] [address] [address] [address] Melchor Brock Sodium [Moles/Vol] 138 mmol/L Normal 137-145 [facility] Comment on above: Performed By: #### L IPID, BMP #### [facility] [address] [address] [address] Melchor Brock Urea nitrogen [Mass/Vol] 15.0 mg/dL Normal 7.0-17.0 [facility] Comment on above: Performed By: #### L IPID, BMP #### [facility] [address] [address] [address] Melchor Brock Urea nitrogen/Creatinine [Mass ratio] 14.3 mg/mg Normal [facility] Comment on above: Performed By: #### L IPID, BMP #### [facility] [address] [address] [address] Melchor Brock ECHOCARDIO M/2D COMPLETEon 0 10-05-2021 ECHOCARDIO M/2D COMPLETE Patient: ISAURA RIVERA Exam Date: 10/05/2021 : 1950 Gender:F Ordering : DR ANJELICA GAMBINO . Admission #: [id number] Family : Order #: [id number] CLICK HERE TO VIEW EXAM ECHOCARDIOGRAM REPORT [...] Area(A4C): 20.70 cm2 Left Atrium Systolic Volume(A2C): 52492 mm3 Left Atrium Systolic Volume(A4C): 41405 mm3 Mitral Valve MV E to A Ratio: 1.10 Deceleration Gaston: 7410 mm/s2 Mitral Valve A-Wave Peak Velocity: [...] Coy Dove M.D. on 10/06/2021 at 08:32 [facility] XR DEXA BONE DENSITYon 09-18 XR DEXA [...] by: KVNG TILLMAN Date: 2021-09-18 10:56 Normal [facility] DEXA BONE DENSITY AXIAL SKEL ETONon [...] necksInterpreted by:ARLEY Valenciaigned by:Lora Mondragon MD09/12/18Final result Normal [facility] DIGITAL SCREEN BILATERAL on 09-12-2017 [facility] DIGITAL SCREEN BILATERAL REPORT: BILATERAL [...] NEGATIVE)Interpreted by:ARLEY Valenciaigned by:Lora Mondragon MD09/12/18Final result Normal [facility] Encounters Encounter Date Encounter Type Care Provider Facility Start: 10-11-2023 End: 10-11-2023 ambulatory ARIEL DAS Not Available Start: 09-01-2023 End: 09-02-2023 ambulatory VIPUL OBANDO Facility:[facility]3]noris nicholas Start: 08-25-2023 End: 08-25-2023 ambulatory NETO HERBERT Not Available Start: 08-11-2023 End: 08-12-2023 ambulatory Job Alvarado Facility:[facility] Marcella nicholas Start: 07-27-2023 End: 07-27-2023 ambulatory ARIEL DAS Not Available Start: 06-13-2023 End: 06-14-2023 ambulatory Job Alvarado [facility]: [facility] Start: 05-30-2023 End: 05-31-2023 ambulatory Job Alvarado Facility:[facility] Start: 05-30-2023 End: 05-31-2023 ambulatory Job Alvarado Facility:[facility] [place] [facility] Start: 05-11-2023 End: 05-12-2023 ambulatory Violet L Leonidas Facility:[facility] Start: 05-11-2023 End: 05-11-2023 Lab Drop off Violet L Leonidas [facility] Start: 12-01-2022 End: 12-02-2022 ambulatory Job Alvarado Facility: [facility] Start: 10-28-2022 ambulatory Job Alvarado Facility: [facility] Start: 08-03-2022 End: 08-04-[address] [...] Start: 09-12-2017 End: 09-13-2017 Ambulatory [facility] Procedures Date Procedure Procedure Detail Performing Clinician Start: 09-12-2017 Screening mammograph y bi 2-view breast inc cad FARA RICHARDSON Start: 09-12-2017 Dxa bone density jeanne dy 1/> sites axial skel FARA KARASIK Cholecystectomy Violet Lauren Comment on above: bile duct surgery Colonoscopy Violet Lauren Comment on above: 2012 normal Laser device (physic al object) Violet Dowlingab Comment on above: eye Plan of Treatment Date Care Activity Detail Author Start: 07-30-2024 ambulatory Ambulatory Facility:[facility] Immunizations Immunization Date Immunization Notes Care Provider Jailyn martinez NEGATED: Highlighted row has not occurred!12-01-2022 SARS-CoV-2 mRNA (tozinameran 5y-11y) vaccine Violet Lauren [facility] Payers Date Payer Category Payer Unknown [id number] 2014 Medicare [id number] 1957 Unknown [id number] 1950 Unknown [id number] 2.16.84 0.1.112477.3.579.2.593 1950 Unknown [id number] 2.16.84 0.1.563900.3.579.2.593 1950 Unknown [id number] 2.16.84 0.1.877813.3.579.2.593 1950 Unknown [id number] 2.16.84 0.1.702152.3.579.2.593 1950 Unknown [id number] 2.16.84 0.1.452814.3.579.2.593 1950 Unknown [id number] 2.16.84 0.1.730350.3.579.2.593 1950 Unknown [id number] 2.16.84 0.1.099384.3.579.2.593 1950 Unknown [id number] 2.16.84 0.1.460510.3.579.2.593 1950 Unknown [id number] 2.16.8 40.1.781357.3.579.2.727 1950 Unknown [id number] 2.16.8 40.1.265393.3.579.2.727 1950 Unknown [id number] 2.16.8 40.1.696738.3.579.2.727 1950 Unknown [id number] 2.16.8 40.1.759415.3.579.2.727 1950 Unknown [id number] 2.16.8 40.1.951805.3.579.2.727 1950 Unknown [id number] 2.16.8 40.1.635527.3.579.2.727 1950 Unknown [id number] 2.16.8 40.1.281601.3.579.2.727 1950 Unknown [id number] 2.16.8 40.1.442756.3.579.2.727 1950 Unknown [id number] 2.16.8 40.1.897372.3.579.2.727 1950 Unknown [id number] 2.16.8 40.1.011171.3.579.2.727 1950 Unknown [id number] 2.16.8 40.1.459977.3.579.2.727 1950 Unknown [id number] 2.16.8 40.1.098348.3.579.2.727 1950 Unknown [id number] 2.16.84 0.1.814113.3.579.2.1259 1950 Unknown [id number] 2.16.840 .1.767099.3.579.2.1259 1950 Unknown [id number] 2.16.840 .1.802400.3.579.2.1259 Unknown [id number] Social History Date Type Detail Facility Start: 05-11-2023 Tobacco smoking status Never s moked tobacco (finding) [facility] [place] Tobacco smoking status Never Karl [facility] Sex Assigned At Female [facility] Clinical Note 08-11-2023 Note Date & [...] a surgeon: ? Is certified by the [place] [employer]. To be board certified, a surgeon must go through an approved residency training program and pass a comprehensive exam. You can check your surgeon's board certification at www.abms.org/verify-certification/ ? Has had any problems with state licensing authorities. You can check whether a surgeon has had malpractice claims or other professional problems by going to your state medical board at www.fsmb.org/loyjjra-r-xzmuw-medical-boa rd/ ? Has good ratings from other [...] you are considering is certified by the [place] [employer]. ? Meet with [...] Reviewed: 10/19/2021 Elsevier Patient Education ? 2022 [employer] [facility] Clinical Note 08-05-2022 Note Date & [...] authenticated by: TAMIR CONLEY Date: 2022-08-04 22:03 [facility] Evaluation + Plan note Note Date & Type Note Facility Evaluation + Plan note Future Appointments Appointment Date:05/30/2023 02:00:00 PM Scheduled Provider: Location:[facility] Appointment Type: Medicare Wellness Subsequent Appointment Date:05/30/2023 02:40:00 PM Scheduled Provider:Job Alvarado MD Location:[facility] Appointment Type: Open Diagnostic Tests PendingUrine Culture 05/11/23 [facility] Hospital course Narrative Note Date & Type Note Facility Hospital course Narrative No data available for this section [facility] Hospital Discharge instructions Note Date & Type Note Facility Hospital Discharge instructions No data available for this section [facility] Progress note Note Date & Type Note Facility Progress note No data available for this section [facility] Summary Purpose Family History No Family History Records FoundNo Family History Records FoundNo Family History Records FoundNo Family History Records Found Advance Directives No Advanced Directives Records FoundNo Advanced Directives Records FoundNo Advanced Directives Records FoundNo Advanced Directives Records Found Additional Source Comments INFORMATION SOURCE (unrecogn ized section and content) DATE CREATED AUTHOR 02/13/2018 [facility] DATE CREATED AUTHOR AUTHOR'S ORGANIZ ATION 08/12/2022 [facility] DATE CREATED AUTHOR AUTHOR'S ORGANIZ ATION 10/04/2023 [facility] DATE CREATED AUTHOR AUTHOR'S ORGANIZ ATION 10/12/2023 [facility] EPIC Patient Care team informatio n (unrecognized section and content) Personnel Name: Job Alvarado MD Address: Address: [address] FOR RECORDS PERTAINING TO PATIENTS WHO [...] BE BASED ON THE PRIMARY CLINICAL RECORDS. [facility]. provides no warranty or guarantee of the accuracy or completeness of information in this document.
== END 2023-10-17 08:49 | disposition home or self-care (01) ==
LOC: US 08:48
PROVIDERS: PCP Family Medicine; Visit Provider Physician Assistant
DX: R93.89 Abnormal findings on diagnostic imaging of other specified body structures (principal)
CPT/HCPCS: 76830; 76856

== ENCOUNTER 2023-10-17 09:38 | Outpatient (RCR) | payer MEDICARE, SELFPAY ==
[2023-10-17 09:44] LABS: Calcium 9.1 mg/dL (8.5-10.1); Estimated GFR (African America 54 (>=60); Estimated GFR (Non-African Ame 45 (>=60)
[2023-10-17] MEDS: DENOSUMAB 60 MG/ML SYRINGE SUBQ (09:48)
[2023-10-17 10:16] VITALS: BP 138/91; PULSE 65; RESP 18; O2SAT 100
--- NOTE | 2023-10-17 10:17 | PC.NURSE ---
Patient is here for prolia, she had blood work done. I provided education about prolia, she tolerated injection well and denies any complaints. She was discharged home ambulatory.
== END 2023-10-20 23:59 | disposition home or self-care (01) ==
LOC: INF 09:38
PROVIDERS: PCP Family Medicine; Visit Provider Obstetrics & Gynecology
DX: R93.89 Abnormal findings on diagnostic imaging of other specified body structures (principal); M81.0 Age-related osteoporosis without current pathological fracture
CPT/HCPCS: 36415; 76830; 76856; 82310; 82565; 96372; J0897

== ENCOUNTER 2023-11-08 09:44 | Outpatient (OUT) | payer MEDICARE, SELFPAY ==
--- NOTE | 2023-11-08 | XR_ITS ---
The [address] [address] Patient Name: PAPITO HAYDEN MRN: [id number] date: 1950 Sex: F Assigned Patient Location: Current Patient Location: Accession/Order Number: [id number] Exam Date: 11/08/2023 09:55 Report Date: 11/08/2023 11:11 At the request of: SUNG COPELAND Procedure: XR foot SARAHI min 3V EXAMINATION: XR foot SARAHI min 3V HISTORY: BILATERAL FOOT PAIN COMPARISON: No relevant comparison available. FINDINGS: RIGHT FINDINGS: BONES: Subtle sclerosis identified along the medial proximal diaphysis of the fourth metatarsal best seen on image #2 possibly representing a subacute or chronic fracture. No acute fracture or dislocation. Mild to moderate degenerative changes with joint space narrowing marginal osteophyte formation . Mild enthesopathic spurring of the calcaneus SOFT TISSUES: Negative. No visible soft tissue swelling. OTHER: Negative. LEFT FINDINGS: BONES: Mixed lytic and sclerotic change identified along the proximal diaphysis of the second metatarsal consistent with a subacute fracture with incomplete bony bridging. Mild hallux valgus. Degenerative changes with joint space narrowing marginal osteophyte formation. Mild enthesopathic spurring of the calcaneus SOFT TISSUES: Negative. No visible soft tissue swelling. OTHER: Negative. XR/XR foot SARAHI min 3V IMPRESSION: RIGHT CONCLUSION: Likely subacute or chronic healed fracture of the fourth metatarsal LEFT CONCLUSION: Subacute fracture of the second metatarsal with incomplete bony bridging Electronically authenticated by: KVNG TILLMAN Date: 11/08/2023 11:11
--- OUTSIDE RECORDS SUMMARY | 2023-11-08 09:53 | XMS_ITS | CCD ---
Author Organization [facility] Care Team Providers Care Security Systems Installer Name Role Phone FARA RICHARDSON Unavailable Unavailable BELEN, ANJELICA Bergeron Unavailable Unavailable FARA RICHARDSON Unavailable Unavailable BELEN, ANJELICA Bergeron Unavailable Unavailable GAMIBNO, DR ANJELICA Bergeron Primary Care Unavailable GAMBINO, DR ANJELICA Bergeron Attending Unavailable GAMBINO, DR ANJELICA Bergeron Admitting Unavailable GAMBINO, DR ANJELICA Bergeron Consulting Unavailable ZIEBER, DR ALAN Rico Consulting Unavailable GAMBINO, DR ANJELICA Bergeron Primary Care Unavailable GAMBINO, DR ANJELICA Bergeron Attending Unavailable GAMBINO, DR ANJELICA Bergeron Admitting Unavailable GAMBINO, DR ANJELICA Bergeron Consulting Unavailable GAMBINO, DR ANJELICA Bergeron Primary Care Unavailable KARASIK, DR CHAUDHARI Consulting Unavailable KARNAY, DR CHAUDHARI Attending Unavailable KARNAY, DR CHAUDHARI Admitting Unavailable ZIEBYAZMIN, DR ALAN Rico Consulting Unavailable GAMBINO, DR ANJELICA Bergeron [...] Unavailable BELEN, DR ANJELICA Bergeron Attending Unavailable BELEN, DR ANJELICA Bergeron Primary Care Unavailable KARASIK, DR CHAUDHARI Consulting Unavailable ADE, DR CHAUDHARI Attending Unavailable ADE, DR CHAUDHARI Admitting Unavailable SACRAMENTO, DR KVNG Mendoza Consulting Unavailable Anamaria Chinchilla Primary Care Physician Anamaria Chinchilla. Attending Unavailable Anamaria Chinchilla. Attending Unavailable Anamaria Chinchilla. Attending Unavailable Violet Lauren Attending Unavailable Anamaria Chinchilla Attending Unavailable Anamaria Chinchilla Attending Unavailable VIPUL OBANDO Attending Unavailable Anamaria Chinchilla Attending Unavailable Violet Lauren Admitting Unavailable Violet Lauren Attending Unavailable Anamaria Chinchilla Admitting Unavailable Anamaria Chinchilla Attending Unavailable Anamaria Chinchilla Attending Unavailable NETO HERBERT Attending Unavailable ARIEL DAS Attending Unavailable ARIEL DAS Attending Unavailable Anjelica Gambino MD Primary Care Provider [phone] NABIL LEON Attending Unavailable ANJELICA GAMBINO Referring Unavailable ANJELICA GAMBINO Primary Care Unavailable ANJELICA GMABINO Referring Unavailable ANJELICA GAMBINO Primary Care Unavailable ANJELICA GAMBINO Referring Unavailable ANAMARIA CHINCHILLA Primary Care Unavailable Allergies Allergy Classification Reported Allergen(s) Allergy Type Date of Onset Reaction(s) Facility (2 sources) atorvastatin; Translations: [atorvastatin] Drug Allergy Unknown (qualifier value) [facility] (3 sources) HYDROmorphone; Translations: [hydromorphone] Drug Allergy Unknown (qualifier value) [facility] (2 sources) Pyrilamine; Translations: [pyrilamine] Drug Allergy Unknown (qualifier value) [facility] (1 source) No Known Medication Allergies; Translations: [No Known Medication Allergies] Propensity to adverse reactions (disorder) [facility] Repository Medications Current Medications Medication Drug Class(es) Dates Sig (Normalized) Sig (Original) alendronic acid 70 mg oral tablet (3 sources) Bisphosphonate take 1 tablet by mouth in the morning alendronate (FOSAMAX) 70 mg tablet Take 70 mg by mouth every 7 days. Take in the morning with a full glass of water, on an empty stomach, and do not take anything else by mouth or lie down for the next 30 min. 0 Active amLODIPine 5 mg oral tablet (2 sources) Dihydropyridine Calcium Channel Sylvester take 1 tablet by mouth in the morning amLODIPine (NORVASC) 5 mg tablet Take 1 tablet (5 mg total) by mouth in the morning. 0 Active aspirin 81 mg oral capsule (3 sources) Platelet Aggregation Inhibitor, Nonsteroidal Anti-inflammatory Drug Start: 11-29-2022 take 1 capsule by mouth once daily aspirin 81 mg oral capsule 81 mg = 1 cap(s), Oral, Daily, Refills(s) 0 Start Date: 11/29/22 Status: Ordered aspirin 81 mg ch ewable tablet Chew 1 tablet (81 mg total) and swallow in the morning. 0 Active atorvastatin 10 mg oral tablet (3 sources) HMG-CoA Reductase Inhibitor take 1 tablet by mouth once daily atorvastatin (LIPITOR) 10 mg tablet Take 10 mg by mouth daily. 0 Active bimatoprost 0.3 mg/ml topical solution (2 sources) Prostaglandin Analog take 1 drop(s) into the eye(s) once daily, then take 1 drop(s) into the eye(s) once daily at bedtime bimatoprost (LATISSE) 0.03 % ophthalmic solution Administer 1 drop to both eyes nightly. Place 1 drop on applicator and apply along skin of upper eyelid at base of eyelashes daily at bedtime; rpt for 2nd eye with clean applicator 0 Active cholecalciferol 0.05 mg oral capsule (2 sources) Vitamin D take 1 capsule by mouth in the morning cholecalciferol, vitamin D3, 2,000 units capsule Take 1 capsule (2,000 Units total) by mouth in the morning. 0 Active chondroitin sulfates 400 mg / glucosamine hydrochloride 500 mg oral tablet (3 sources) take 1 tablet by mouth three times daily glucosamine-chondroiti n 500-400 mg tablet Take 1 tablet by mouth 3 (three) times a day. 0 Active denosumab (2 sources) RANK Ligand Inhibitor denosumab (PROLIA SUBQ) Inject under the skin. 0 Active glucosamine hydrochloride 1500 mg oral tablet (1 source) Start: glucosamine hydrochloride 1500 mg oral tablet 1,500 mg, 1 tab(s), Oral, Daily, 30 tab(s), Refill(s) 0 Start Date: 12/01/22 Status: Ordered krill oil 500 mg oral capsule (1 source) Start: 023 take 1 capsule by mouth once daily omega-3 polyunsaturated fatty acids 500 mg oral capsule 500 mg = 1 cap(s), Oral, Daily, Refills(s) 0 Start Date: 12/01/22 Status: Ordered losartan potassium 25 mg oral tablet (2 sources) Angiotensin 2 Receptor Sylvester Start: 023 take 1 tablet by mouth twice daily losartan 25 mg Tab 25 mg = 1 tab(s), Oral, BID, # 180 tab(s), Refills(s) 0, Pharmacy: [facility] [id number], 162, cm, 05/11/23 9:36:00 EDT, Height/Length Dosing, 74.9, kg, 05/11/23 9:36:00 EDT, Weight Dosing Start Date: 05/11/23 Status: Ordered meloxicam 15 mg oral tablet (4 sources) Nonsteroidal Anti-inflammatory Drug Start: 023 take 1 tablet by mouth once daily as needed meloxicam 15 mg Tab See Instructions, TAKE ONE TABLET BY MOUTH DAILY NEEDED, # 90 tab(s), Refills(s) 0, Pharmacy: [facility] [id number], 162.6, cm, 12/01/22 15:23:00 EDT, Height/Length Dosing, 76.5, kg, 12/01/22 15:23:00 EDT, Weight Dosing Start Date: 02/27/23 Status: Ordered omega-3 acid ethyl esters (assisted) 1000 mg oral capsule (2 sources) take 1 capsule by mouth at bedtime omega-3 acid ethyl esters (LOVAZA) 1 gram capsule Take 2 capsules (2 g total) by mouth in the morning and 2 capsules (2 g total) before bedtime. 0 Active omega-3 fatty acids-fish oil (FISH OIL) 300-1,000 mg capsule (3 sources) take 1 capsule by mouth once daily omega-3 fatty acids-fish oil (FISH OIL) 300-1,000 mg capsule Take 1 g by mouth daily. 0 Active psyllium 3400 mg powder for oral suspension (3 sources) take 1 dose by mouth in the morning psyllium (METAMUCIL) 3.4 gram packet Take 1 packet (3.4 g total) by mouth in the morning. 0 Active rosuvastatin calcium 20 mg oral tablet (3 sources) HMG-CoA Reductase Inhibitor Start: 023 take 1 tablet by mouth once daily rosuvastatin 20 mg Tab See Instructions, TAKE ONE TABLET BY MOUTH DAILY, # 90 tab(s), Refills(s) 0, Pharmacy: [facility] [id number], 162.6, cm, 12/01/22 15:23:00 EDT, Height/Length Dosing, 76.5, kg, 12/01/22 15:23:00 EDT, Weight Dosing Start Date: 02/27/23 Status: Ordered tafluprost 0.015 mg/ml ophthalmic solution (1 source) Prostaglandin Analog Start: take 1 drop(s) into the eye(s) once daily Zioptan 0.0015% ophthalmic solution See Instructions, Refill(s) 0, 1 drop(s) Eye-Right & Left once daily Start Date: 05/11/23 Status: Ordered vitamin e 450 mg oral capsule (3 sources) Start: take 1 capsule by mouth once daily vitamin E 450 mg oral capsule See Instructions, take one daily 400mg, Refills(s) 0 Start Date: 12/01/22 Status: Ordered take 1 capsule by mouth in the m orning vitamin E, dl,tocopheryl acet, (vitamin E, dl, acetate,) 100 units Take 1 capsule (100 Units total) by mouth in the morning. 0 Active Problems Active Problems Problem Classification Problem Date Documented Date Episodic/Chronic Abdominal pain (1 source) Right sided abdominal pain 05-11-2023 Episodic Disorders of lipid metabolism (10 sources) Pure hypercholesterolemia, unspecified; Translations: [Hypercholesterolemia ] Onset: 12-27-2016 Chronic Essential hypertension (5 sources) Essential (primary) hypertension; Translations: [Hypertensive disorder] Onset: 11-05-2021 Chronic Heart valve disorders (1 source) Rheumatic disorders of both mitral and tricuspid valves; Translations: [RHEUMATIC D/O MITRAL TRICUSPID VALV] Onset: 10-08-2021 Chronic Menopausal disorders (4 sources) Postmenopausal bleeding; Translations: [Postmenopausal bleeding] Onset: 10-27-2023 05-11-2023 Chronic Osteoarthritis (3 sources) Arthritis; Translations: [Unspecified osteoarthritis, unspecified site] Onset: 12-27-2016 12-27-2016 Chronic Osteoporosis (1 source) Senile osteoporosis; Translations: [Age-related osteoporosis without current pathological fracture] 12-01-2022 Chronic Other connective tissue disease (4 sources) Pain in left foot; Translations: [PAIN IN LEFT FOOT] Onset: 08-03-2022 Episodic Other screening for suspected conditions (not mental disorders or infectious disease) (3 sources) Endometrium thickened; Translations: [Abnormal findings on diagnostic imaging of other specified body structures] Onset: 10-27-2023 10-27-2023 Chronic Residual codes; unclassified (1 source) Pain, unspecified; Translations: [Pain, unspecified] Onset: 10-19-2023 Episodic Transient cerebral ischemia (6 sources) Transient cerebral ischemic attack, unspecified; Translations: [Transient cerebral ischemia] Onset: 09-11-2021 Chronic Urinary tract infections (4 sources) Urinary tract infection, site not specified; Translations: [UTI SITE NOT SPECIFIED] Onset: 07-06-2022 Episodic Past or Other Problems Problem Classification Problem Date Documented Da te Episodic/Chronic Cardiac dysrhythmias (4 sources) Palpitations; Translations: [PALPITATIONS] Onset: 09-08-2021 Episodic Deficiency and other anemia (3 sources) Iron deficiency anemia; Translations: [Iron deficiency anemia, unspecified] Onset: 12-27-2016 12-27-2016 Episodic Diabetes mellitus without complication (1 source) [...] Facil ity Consultation Noteon 10-03-19 Consultation Note [id number]#1.0 0TIFF Normal [facility] RAD - MISCon 10-03-2023 RAD - MISC [id number]#1.0 0TIFF Normal [facility] Consultation Noteon 09-29-19 Consultation Note [id number] 20 [id number]#1.0 0TIFF Normal [facility] Consultation Noteon 09-21-19 Consultation Note [id number] 10 [id number]#1.0 0TIFF Normal [facility] Dexa Scanson 09-21-2023 Dexa Scans [id number] 10 [id number]#1.0 0TIFF Normal [facility] Consultation Noteon 09-12-19 Consultation Note [id number]#1.00 TIFF Normal [facility] Patient Logson 09-02-2023 Patient Logs [id number] 06 [id number]#1.00 TIFF Normal [facility] Ambulatory Visit Summaryon 0 09-01-2023 Ambulatory Visit Summary ISAURA RIVERA :1950 Visit Date:09/01/2023 Ambulatory Visit Instructions Your Diagnosis Hypertension Chronic kidney disease, stage 3a Your Care Team Attending Physician - VIPUL OBANDO CNP Primary Care Physician - Anamaria Chinchilla MD This Is Your Medications List amlodipine [...] Follow-Up Appointments Tuesday 10:30 AM EST With: Anamaria Chinchilla MD Where: [facility] Medicine [place] Normal [address] [id number]- \.br\ Medications\.br\ What How Much When Instructions\.br\ [...] for choosing us for your care.\.br\ \.br\ [facility] Consultation Noteon 09-01-19 Consultation Note [id number] 10 [id number]#1.0 [address]TIFF Normal [facility] Family Medicine Office/Clini c Noteon 09-01-2023 Family Medicine Office/Clinic Note Chief Complaint high blood pressure HPI Staff Dr. Chinchilla patient presents for high blood pressure. Patient [...] 96.3 fL (05/11/23) Chloride: 108 mmol/L (05/11/23) [place] Absolute: 0.4 E9/L (05/11/23) CO2: 27 mmol/L (05/11/23) [place] Auto: 7.8 % (05/11/23) Creatinine: 1.3 mg/dL [...] 73 year old female patient of Dr. Chinchilla presents today for elevated B/P. Patient states [...] Ongoing Ag (more content not included)... Normal [facility] Comment on above: Result Comment: Elec [...] Herbs. Spices. Seasoni (more content not included)... [facility] Consultation Noteon 08-24-19 Consultation Note [id number] 20 [id number]#1.0 0TIFF [facility] Consultation Note [id number] 20 [id number]#1.0 0TIFF [facility] RAD - CT Reporton 08-24-2023 RAD - CT Report [id number]#1.0 0TIFF [facility] Operative Reporton Operative Report [id number]#1.0 0TIFF [facility] Patient Correspondenceon Patient Correspondence [id number]#1.0 0TIFF [facility] Provider Letteron 08-12-2023 Provider Letter [address] [place] [address] August 12, 2023 ISAURA RIVERA [address] [address] : [address] Das, The above patient has been evaluated at your request for preoperative clearance. After assessment of available pertinent labs and diagnostic tests, I feel this patient is medically optimized for surgery. Final discretion of whether the patient is cleared for surgery remains up to the surgeon/anesthesiologi st. Thank you, Violet Lauren, YISEL [facility] Ambulatory Visit Summaryon 1 10-12-2022 Ambulatory Visit Summary ISAURA RIVERA :1950 Visit Date:08/11/2023 Ambulatory Visit Instructions Your Care Team Attending Physician - Anamaria Chinchilla MD Primary Care Physician - Anamaria Chinchilla MD This Is Your Medications List amlodipine [...] Follow-Up Appointments Tuesday 10:30 AM EST With: Anamaria Chinchilla MD Where: [facility] Family Medicine [place] Normal [address] [place] [phone]- \.br\ Medications\.br\ What How Much When Instructions\.br\ [...] for choosing us for your care.\.br\ \.br\ [facility] ECG 12-Leadon 08-11-2023 ECG 12-Lead [id number] 20 [id number]#1.0 0TIFF Normal [facility] Family Medicine Office/Clini c Noteon 08-11-2023 Family [...] 05/17/2011 Recorded pneumococcal 23-valent vaccine 06/25/2008 Recorded [facility] Comment on above: Result Comment: Elec tronically Signed By: Christiano SHORT, Anamaria Saldivar.br\Date and Time Signed: 08/11/23 12:57 EST RAD - MISCon 08-10-2023 RAD - MISC [id number] 20 [id number]#1.0 0TIFF [facility] Consultation Noteon 07-07-20 Consultation Note [id number] 10 [id number]#1.0 0TIFF [facility] RAD - MISCon 07-07-2023 RAD - MISC [id number] 10 [id number]#1.0 0TIFF [facility] Patient Logson 06-14-2023 Patient Logs [id number] 00 [id number]#1.0 0TIFF [facility] Physician Referralon 023 Physician Referral [id number]#1. 00TIFF [facility] Nurse Consultation Noteon Nurse Consultation Note [...] 05/17/2011 Recorded pneumococcal 23-valent vaccine 06/25/2008 Recorded [facility] Outside Colonoscopyon 2022 Outside Colonoscopy [id number] 00 [id number]#1.0 0TIFF [facility] Patient Logson 06-07-2023 Patient Logs [id number] 00 [id number]#1.0 0TIFF [facility] Auth for Release of Medical Recordson 06-01-2023 Auth for Release of Medical Records [id number]#1.0 0TIFF [facility] Family Medicine Office/Clini c Noteon 06-01-2023 [...] 05/30/2023 14:34 EDT Summary Preferred Lab : [facility] Preferred Rad : [facility] Patient Counseled : Nutrition, Physical activity [...] area free o (more content not included)... [facility] Comment on above: Result Comment: Elec tronically Signed By: Anamaria Chinchilla MD\.br\Date and Time Signed: 06/01/23 10:38 EDT\.br\Electronically Co-Signed By: Neftaly Wolfe\.br\Date and Time Co-Signed: 05/30/23 15:29 EDT Auth for Release of Medical Recordson 05-31-2023 Auth for Release of Medical Records [id number]#1.0 0TIFF [facility] Physician Referralon 023 Physician Referral [id number]#1. 00TIFF [facility] Screenson 05-31-2023 Screens [id number]#1. 00TIFF [facility] Ambulatory Visit Summaryon 1 Ambulatory Visit Summary ISAURA RIVERA :1950 Visit Date:05/30/2023 Ambulatory Visit Instructions Your Diagnosis Hypertension Hypertensive kidney disease with stage 3a chronic kidney disease Chronic kidney disease, stage 3a Hypercholesterolemia Postmenopause bleeding Foot pain, right BMI 28.0-28.9,adult Non-smoker Your Care Team Attending Physician - Anamaria Chinchilla MD Primary Care Physician - Anamaria Chinchilla MD This Is Your Medications List losartan [...] Follow-Up Appointments Tuesday 9:00 AM EDT Where: [facility] Invalid Interpretation Code [address] [place] [address]- \.br\ Someone Will Contact You Regarding These Appointments\.br\ [facility] [place] [facility] 15:02:00 EDT, Hypertension [facility] Ambulatory Visit Summary ISAURA RIVERA :1950 Visit Date:05/30/2023 Ambulatory Visit Instructions Your Diagnosis Annual visit for general adult medical examination without abnormal findings Hyperlipidemia Hypertension BMI 28.0-28.9,adult Age-related osteoporosis without current pathological fracture Your Care Team Attending Physician - Anamaria Chinchilla MD Primary Care Physician - Anamaria Chinchilla MD This Is Your Medications List aspirin [...] Follow-Up Appointments Tuesday 9:00 AM EDT Where: [facility] Invalid Interpretation Code [address] [place] [address]- \.br\ Someone Will Contact You Regarding These Appointments\.br\ [facility] [place], Podiatry, [facility], 05/30/23 15:02:00 EDT, Hypertension [facility] Ambulatory Visit Summary ISAURA RIVERA Alonzo :1950 Visit Date:05/30/2023 Ambulatory Visit Instructions Your Diagnosis Hypertension Hypertensive kidney disease with stage 3a chronic kidney disease Chronic kidney disease, stage 3a Hypercholesterolemia Postmenopause bleeding BMI 28.0-28.9,adult Non-smoker Your Care Team Attending Physician - Anamaria Chinchilla MD. Primary Care Physician - Anamaria Chinchilla MD. This Is Your Medications List aspirin [...] Follow-Up Appointments Tuesday 9:00 AM EDT Where: [facility] Normal [address] [place] [address]- \.br\ Medications\.br\ What How Much When Why [...] abdominal pain\.br\ TIA (transient ischemic attack)\.br\ \.br\ [facility] Ambulatory Visit Summary ISAURA RIVERA :1950 Visit Date:05/30/2023 Ambulatory Visit Instructions Your Diagnosis Annual visit for general adult medical examination without abnormal findings Hyperlipidemia Your Care Team Attending Physician - Anamaria Chinchilla MD Primary Care Physician - Anamaria Chinchilla MD. This Is Your Medications List aspirin [...] Follow-Up Appointments Tuesday 11:00 AM EST Where: [facility] Medicine Office/Clini c Noteon 05-30-2023 Family [...] a nurse visit in 2 weeks. Ordered: [facility] [place] Ambulatory Referral Medicare Subsequent Visit G0439 2. Hypertensive kidney disease with stage 3a chronic kidney disease (I12.9: Hypertensive chronic kidney disease with stage 1 through stage 4 chronic kidney disease, or unspecified chronic kidney disease) - Working to control Bps to protect the kidneys Ordered: [facility] [place] Ambulatory Referral 3. Chronic kidney disease, stage 3a (N18.31: Chronic kidney disease, stage 3a) - Will have the patient cut down on the NSAIDs to protect the kidneys Ordered: [facility] [place] Ambulatory Referral 4. Hypercholesterolemia (E78.00: Pure hypercholesterolemia, unspecified) - Continue on the statin Ordered: [facility] [place] Ambulatory Referral 5. Postmenopause bleeding (N95.0: Postmenopausal bleeding) - Follow up with Dr. Das Ordered: [facility] [place] Ambulatory Referral 6. Foot pain, right [...] Daily, # 90 tab(s), Refills(s) 0, Pharmacy: [facility] [id number], 162, cm, 05/30/23 14:36:00 EDT, Height/Length Dosing, 75.9, kg, 05/30/23 14:35:00 EDT, Weight Dosing losartan, See Instructions, Take 1 tab in am and 2 in pm, # 270 tab(s), Refills(s) 3, Pharmacy: [facility] [id number], 162.6, cm, 12/01/22 15:23:00 EDT, Height/Length Dosing, 76.5, kg, 12/01/22 15:23:00 EDT, Weight Dosing rosuvastatin, See Instructions, TAKE ONE TABLET BY MOUTH DAILY, # 90 tab(s), Refills(s) 0, Pharmacy: [facility] [id number], 162, cm, 05/30/23 14:36:00 EDT, Height/Length Dosing, [...] immunization status assessed 1030F Lab Specimen Collect 08632 Lipid Panel Medication list documented in medical [...] Medications aspir (more content not included)... Normal [facility] Comment on above: Result Comment: Elec tronically Signed By: Christiano SHORT, Anamaria Harvey\.br\Date and Time Signed: 05/30/23 15:10 EDT Lipid Panelon 05-30-2023 Cholesterol [Mass/Vol] 206 mg/dL High 120-200 [facility] Comment on above: Performed By: #### 2 [id number] #### [facility] [address] [place] [address] Cholesterol in HDL [Mass/Vol] 61 mg/dL Invalid Interpretation Code [facility] Comment on above: Result Comment: HDL > or equal to 60 mg/dL: Low cardiovascular risk HDL < 40 mg/dL : High cardiovascular risk Performed By: #### 2 [id number] #### [facility] [address] [place] [address] Cholesterol in LDL [Mass/Vol] 111 mg/dL Normal <=129 [facility] Comment on above: Performed By: #### 2 [id number] #### [facility] [address] [place] [address] Cholesterol in VLDL [Mass/Vol] 35 mg/dL Normal 7-40 [facility] Comment on above: Performed By: #### 2 [id number] #### [facility] [address] [place] [address] Triglyceride [Mass/Vol] 177 mg/dL High <=149 [facility] Comment on above: Performed By: #### 2 [id number] #### [facility] [address] [place] [address] Patient Educationon 05-30-20 Patient Education Caregiving Fall [...] night-lights. ? Place frequently used items in djor-si-oecas places. Lower the shelves around your home [...] include working with a physical therapist or first aid trainer to improve your strength, balance, and endurance. Where to find more information ? Centers for Disease Control and Prevention, [place]: www.cdc.gov ? [employer] [place] [employer] A[employer]: www.brandy.nih.gov Contact a health care [...] health ca (more content not included)... Normal [facility] Pre-Visit Planningon 023 Pre-Visit Planning - From: Benita MENJIVAR, Daly To: Christiano SHORT, Anamaria Harvey; Sent: 05/27/2023 13:37:55 EDT Subject: Pre-Visit Planning Due Date/Time: 05/27/2023 13:37:00 EDT Caller Name: ISAURA RIVERA; Caller Number: Adrian , Mitesh Hi Dr. Chinchilla, *Based on your response below, can you [...] feel free to contact me at extension [phone]. Thank you! Daly Joy, ALEXN, RN, CCM, CCDS, CCDS-O From: Christiano SHORT, Anamaria Harvey To: Benita MENJIVAR, Daly; Sent: 05/30/2023 13:07:52 EDT Subject: RE: Pre-Visit Planning Caller Name: ISAURA RIVERA; Caller Number: Adrian , Mitesh Please add 3A Normal [address] [facility] C Urineon 05-13-2023 Bacteria identified Cx [...] Locations R1: This test was performed at: [email or web address] [facility], [address] [place] [address], [id number] , [place], [facility] Comment on above: Performed By: #### 2 [id number], [id number] ####[facility] [address] [place] [address] RAD - Ultrasound Reporton RAD - Ultrasound Report [id number] 0CD:127 Normal [facility] RAD - Ultrasound Report [id number] 0CD:127 Normal [facility] Ambulatory Visit Summaryon 0 05-11-2023 Ambulatory Visit Summary ISAURA RIVERA Alonzo :1950 Visit Date:05/11/2023 Ambulatory Visit Instructions Your Diagnosis BMI 28.0-28.9,adult Non-smoker Right sided abdominal pain Postmenopause bleeding Your Care Team Attending Physician - Violet Allen Primary Care Physician - Anamaria Chinchilla MD This Is Your Medications List aspirin [...] Appointments Tuesday 2:00 PM EDT With: Where: [email or web address] [facility] Normal [address] [place] [address]- \.br\ Medications\.br\ What How Much When Instructions\.br\ [...] abdominal pain\.br\ TIA (transient ischemic attack)\.br\ \.br\ [facility] Amylaseon 05-11-2023 Amylase [Catalytic activity/Vol] 74 U/L Normal 25-157 [facility] Comment on above: Performed By: #### 2 376429, 6803933, 1732018, 6558846, 5375667, 27966183 ####[facility] [address] [place] [address] Auto Diffon 05-11-2023 Basophils/100 WBC (Bld) 0.8 % Normal 0.0-2.0 [facility] Comment on above: Order Comment: Order Added by Discern Expert. Performed By: #### 2 958074, 2133940, 3666837, 1343711, 5996517, 63853005 ####[address] [place] [address] Basophils/Leukocyte s Auto (Bld) [Pure # fraction] 0.0 E9/L Normal 0.0-0.2 [facility] Comment on above: Order Comment: Order Added by Discern Expert. Performed By: #### 2 294656, 9800173, 4145548, 5880198, 0425388, 41278808 ####[address] [address] Eosinophils/100 WBC (Bld) 5.2 % Normal 0.0-8.0 [facility] Comment on above: Order Comment: Order Added by Discern Expert. Performed By: #### 2 371717, 6444058, 0362206, 4185530, 1729845, 07566105 ####[address] [address] Eosinophils/Leukocy ambrosio Auto (Bld) [Pure # fraction] 0.3 E9/L Normal 0.0-0.5 [facility] Comment on above: Order Comment: Order Added by Discern Expert. Performed By: #### 2 965363, 5168863, 2347441, 3981677, 4018244, 46200489 ####[address] [address] Lymphocytes/100 WBC (Bld) 31.3 % Normal 14.0-50.0 [facility] Comment on above: Order Comment: Order Added by Discern Expert. Performed By: #### 2 739599, 9241820, 3088914, 8301253, 1183704, 31697013 ####[address] [address] Lymphocytes/Leukocy ambrosio Auto (Bld) [Pure # fraction] 1.8 E9/L Normal 1.0-4.0 [facility] Comment on above: Order Comment: Order Added by Discern Expert. Performed By: #### 2 754294, 2648291, 4831540, 3810408, 9773157, 19663635 ####[facility] [address] [place] [address] Monocytes/100 WBC (Bld) 7.8 % Normal 4.0-14.0 [facility] Comment on above: Order Comment: Order Added by Discern Expert. Performed By: #### 2 666028, 2373803, 6616755, 2929742, 9062210, 70425477 ####[address] [place] [address] Monocytes/Leukocyte s Auto (Bld) [Pure # fraction] 0.4 E9/L Normal 0.2-1.0 [facility] Comment on above: Order Comment: Order Added by Discern Expert. Performed By: #### 2 102905, 7946991, 3202507, 5085203, 3949214, 50473788 ####[address] [place] [address] Neutrophils/100 WBC (Bld) 54.9 % Normal 36.0-75.0 [facility] Comment on above: Order Comment: Order Added by Discern Expert. Performed By: #### 2 840116, 8513974, 5322380, 8630395, 6883589, 54288231 ####[address] [place] [address] Neutrophils/Leukocy ambrosio Auto (Bld) [Pure # fraction] 3.1 E9/L Normal 2.0-7.5 [facility] Comment on above: Order Comment: Order Added by Discern Expert. Performed By: #### 2 521650, 7687880, 9759301, 9711117, 1173183, 11797525 ####[address] [place] [address] CBC w/ Auto Diffon 3 Erythrocyte distribution width (RBC) [Ratio] 12.9 % Normal 10.9-14.2 [facility] Comment on above: Performed By: #### 2 469395, 8138520, 0909259, 4169513, 9567878, 85025325 #### [facility] [address] [place] [address] Hematocrit (Bld) [Volume fraction] 34.9 % Normal 34.0-46.0 [facility] Comment on above: Performed By: #### 2 525059, 2437674, 1626896, 9309545, 2004618, 70565580 #### [facility] [address] [place], [place] [address] Hemoglobin (Bld) [Mass/Vol] 11.8 g/dL Low 12.0-16.0 [facility] Comment on above: Performed By: #### 2 412276, 7517638, 7270117, 7357297, 1807684, 73167339 #### [facility] [address] [place] [address] MCH (RBC) [Entitic mass] 32.6 pg Normal 27.0-34.0 [facility] Comment on above: Performed By: #### 2 061050, 7204781, 8197537, 8270888, 0205145, 35176401 #### [facility] [address] [place] [address] MCHC (RBC) [Mass/Vol] 33.9 g/dL Normal 31.4-36.0 [facility] Comment on above: Performed By: #### 2 474631, 5223408, 1691432, 7190813, 9484848, 24037616 #### [facility] [address] [place], [place] [address] MCV (RBC) [Entitic vol] 96.3 fL Normal 80.0-100.0 [facility] Comment on above: Performed By: #### 2 296850, 4028465, 3722539, 1858331, 9957026, 51931974 #### [facility] [address] [place] [address] Platelet mean volume (Bld) [Entitic vol] 8.2 fL Normal 6.4-10.8 [facility] Comment on above: Performed By: #### 2 785723, 7513684, 2987084, 5827241, 0241978, 81060746 #### [facility] [address] [place] [address] Platelets (Bld) [#/Vol] 275.0 E9/L Normal 150.0-500.0 [facility] Comment on above: Performed By: #### 2 264705, 2561557, 6881610, 3216810, 8538306, 97294071 #### [facility] [id number] RBC (Bld) [#/Vol] 3.6 E12/L Low 4.3-5.9 [facility] Comment on above: Performed By: #### 2 886211, 2737269, 4158205, 8679716, 0616666, 63362356 #### [facility] [address] [place] [address] WBC corrected for nucl RBC Auto (Bld) [#/Vol] 5.6 E9/L Normal 4.0-11.0 [facility] Comment on above: Performed By: #### 2 586498, 2016198, 9538409, 4261702, 8915197, 05224248 #### [facility] [address] [place] [address] CHEMISTRYOrdered By: SYSTEM SYSTEM on 05-11-2023 Albumin [...] rate/Area] 44 mL/min/1.73 m2 Low >=59mL/min/1.73 m2 [facility] Chem S Globulin (S) [Mass/Vol] 3.2 g/dL Normal 1.4 - 4.0 gm/dL FT Remisol Glucose [Mass/Vol] 93 mg/dL Normal 55 - 199 mg/dL FT [facility]isol Lipase [Catalytic activity/Vol] 46 U/L Normal 13 - 58 unit/L FT [facility] Potassium [Moles/Vol] 4.3 mmol/L Normal 3.5 - 5.3 mmol/L FT Remisol Protein [Mass/Vol] 7.5 g/dL Normal 6.0 - 7.8 gm/dL F [facility] [place] Remisol Sodium [Moles/Vol] 141 mmol/L Normal 135 - 145 mmol/L FT Remisol Urea nitrogen [Mass/Vol] 21 mg/dL Normal 5 - 21 mg/dL FT [facility]isol Urea nitrogen/Creatinine [Mass ratio] 16 mg/mg Normal 10 - 20 FT [facility] CMPon 05-11-2023 Albumin [Mass/Vol] 4.3 g/dL Normal 3.3-5.0 [facility] Comment on above: Performed By: #### 2 433548, 4403165, 5462714, 9853451, 0064996, 92476020 ####[facility] [address] [place] [address] Albumin/Globulin (S) [Mass conc ratio] 1.3 Normal 1.1-2.2 [facility] Comment on above: Performed By: #### 2 069284, 1002607, 3065799, 0798093, 7256018, 41951777 ####[facility] [address] [place] [address] ALP [Catalytic activity/Vol] 46 Int._Unit/L Normal 21-98 [facility] Comment on above: Performed By: #### 2 958812, 6280878, 0098888, 9735823, 3741127, 56601885 ####[facility] [address] [place] [address] ALT No additional P-5'-P [Catalytic activity/Vol] 16 Int._Unit/L Normal 6-46 [facility] Comment on above: Performed By: #### 2 922330, 4610568, 3128655, 5046534, 6538590, 31390798 ####[facility] [address] [place] [address] Anion gap [Moles/Vol] 10 mmol/L Normal 6-16 [facility] Comment on above: Performed By: #### 2 141236, 8071064, 7840068, 1339747, 9610040, 45743685 ####[facility] [address] [place] [address] AST [Catalytic activity/Vol] 23 Int._Unit/L Normal 5-43 [facility] Comment on above: Performed By: #### 2 519943, 9398477, 4329657, 5090426, 8155471, 14005708 ####[facility] [address] [place] [address] Bilirubin [Mass/Vol] 0.6 mg/dL Normal 0.0-1.1 [facility] Comment on above: Performed By: #### 2 933321, 3350233, 7566627, 2123913, 7442581, 17565052 ####[facility] [address] [place] [address] Calcium [Mass/Vol] 9.5 mg/dL Normal 8.9-11.1 [facility] Comment on above: Performed By: #### 2 688795, 9197910, 8761808, 5229108, 9145973, 75237325 ####[facility] [address] [place] [address] Chloride [Moles/Vol] 108 mmol/L Normal 101-111 [facility] Comment on above: Performed By: #### 2 604654, 1310081, 5758192, 2684780, 5568269, 51465600 ####[facility] [address] [place] [address] CO2 [Moles/Vol] 27 mmol/L Normal 21-31 [facility] Comment on above: Performed By: #### 2 025021, 0929434, 9302520, 2252061, 2385693, 56040261 ####[facility] [address] [place] [address] Creatinine [Mass/Vol] 1.3 mg/dL Normal 0.5-1.3 [facility] Comment on above: Performed By: #### 2 387651, 0301152, 6078438, 2160573, 0313258, 67771131 ####[facility] [address] [place] [address] Globulin (S) [Mass/Vol] 3.2 g/dL Normal 1.4-4.0 [facility] Comment on above: Performed By: #### 2 101126, 8073067, 2138641, 7070780, 4246353, 36562445 ####[facility] [address] [place] [address] Glucose [Mass/Vol] 93 mg/dL Normal 55-199 [facility] Comment on above: Result Comment: If t his glucose result represents a fasting glucose, interpretation should refer to the following reference range: 55-99 mg/dL Performed By: #### 2 495308, 6857043, 2330559, 1417713, 1955085, 20836999 ####[facility] [address] [place] [address] Potassium [Moles/Vol] 4.3 mmol/L Normal 3.5-5.3 [facility] Comment on above: Performed By: #### 2 078758, 0484620, 0910718, 0409775, 8745657, 07675122 ####[facility] [address] [place] [address] Protein [Mass/Vol] 7.5 g/dL Normal 6.0-7.8 [facility] Comment on above: Performed By: #### 2 357657, 2230175, 9353518, 3930670, 0723784, 23474349 ####[facility] [address] [place] [address] Sodium [Moles/Vol] 141 mmol/L Normal 135-145 [facility] Comment on above: Performed By: #### 2 449270, 7343067, 2085925, 9777927, 4159364, 55349505 ####[facility] [address] [place] [address] Urea nitrogen [Mass/Vol] 21 mg/dL Normal 5-21 [facility] Comment on above: Performed By: #### 2 098634, 2925234, 7398867, 7505430, 5987953, 62309494 ####[facility] [address] [place] [address] Urea nitrogen/Creatinine [Mass ratio] 16 No Units Normal 10-20 [facility] Comment on above: Performed By: #### 2 744693, 5072010, 1603779, 2682525, 4259270, 29977639 ####[facility] [address] [place] [address] Family Medicine Office/Clini c [place] 05-11-2023 Family [...] with right sided upper abdominal pain and abnda colored discharge on her panty liner Review [...] BID, # 180 tab(s), Refills(s) 0, Pharmacy: [facility] [id number], 162, cm, 05/11/23 9:36:00 EDT, Height/Length Dosing, [...] BID, # 180 tab(s), Refills(s) 0, Pharmacy: [facility] [id number], 162, cm, 05/11/23 9:36:00 EDT, Height/Length Dosing, [...] BID, # 180 tab(s), Refills(s) 0, Pharmacy: [facility] [id number], 162, cm, 05/11/23 9:36:00 EDT, Height/Length Dosing, 74.9, kg, 05/11/23 9:36:00 EDT, Weight Dosing Amylase Level CBC w/ Auto Diff Comprehensive Metabolic Panel Lipase Level UA With Cult Reflex 5. Non-smoker (Z78.9: Other specified health status) continue not smoking Ordered: losartan, 25 mg = 1 tab(s), Oral, BID, # 180 tab(s), Refills(s) 0, Pharmacy: [facility] [id number], 162, cm, 05/11/23 9:36:00 EDT, Height/Length Dosing, [...] Instructions Allergies (more content not included)... Normal [facility] Comment on above: Result Comment: Elec [...] 3.1 E9/L Normal 2.0 - 7.5 E9/L [facility] HemeAutoSS HEMATOLOGYOrdered By: Nato Cheung on 05-11-2023 Erythrocyte distribution width (RBC) [Ratio] 12.9 % Normal 10.9 - 14.2 % FT HemeAutoSS Hematocrit (Bld) [Volume fraction] 34.9 % Normal 34.0 - 46.0 % [facility] HemeAutoSS Hemoglobin (Bld) [Mass/Vol] 11.8 g/dL Low 12.0 - 16.0 gm/dL FT HemeAutoSS MCH (RBC) [Entitic mass] 32.6 pg Normal 27.0 - 34.0 pg [facility] HemeAutoSS MCHC (RBC) [Mass/Vol] 33.9 g/dL Normal 31.4 - 36.0 gm/dL [facility] HemeAutoSS MCV (RBC) [Entitic vol] 96.3 fL Normal 80.0 - 100.0 fL [facility] HemeAutoSS Platelet mean volume (Bld) [Entitic vol] 8.2 fL Normal 6.4 - 10.8 fL [facility] HemeAutoSS Platelets (Bld) [#/Vol] 275.0 E9/L Normal 150.0 - 500.0 E9/L [facility] HemeAutoSS RBC (Bld) [#/Vol] 3.6 E12/L Low 4.3 - 5.9 E12/L [facility] HemeAutoSS WBC corrected for nucl RBC Auto (Bld) [#/Vol] 5.6 E9/L Normal 4.0 - 11.0 E9/L [facility] HemeAutoSS Lipase Levelon 05-11-2023 Lipase [Catalytic activity/Vol] 46 U/L Normal 13-58 [facility] Comment on above: Performed By: #### 2 018083, 6957909, 0162750, 2389361, 3029909, 40898954 ####[facility] [address] [place] [address] UA With Cult Reflexon 2022 Bacteria LM Ql (Urine sed) TRACE Normal Trace [facility] Comment on above: Performed By: #### 2 153970, 16194280 ####[facility] [address] [place] [address] Bilirubin Ql (U) Negative Normal Negative [facility] Comment on above: Performed By: #### 2 720482, 07790992 ####[facility] [address] [place] [address] Clarity (U) CLEAR Normal Clear [facility] Comment on above: Performed By: #### 2 365629, 63795578 ####[facility] [address] [place] [address] Color (U) YELLOW Normal Yellow [facility] Comment on above: Performed By: #### 2 225535, 56703437 ####[facility] [address] [place] [address] Crystals LM Ql (Urine sed) Present Normal [facility] Comment on above: Performed By: #### 2 353934, 59094666 ####[address] [address] Epithelial cells.squamous LM.HPF (Urine sed) [#/Area] 5-8 Normal 0-2 [facility] Comment on above: Performed By: #### 2 394997, 72662559 ####[facility] [address] [place] [address] Glucose Test strip (U) [Mass/Vol] Negative Normal Negative [facility] Comment on above: Performed By: #### 2 067053, 05717962 ####[facility] [address] [place] [address] Hemoglobin Ql (U) TRACE Abnormal Negative [facility] Comment on above: Performed By: #### 2 873819, 83118400 ####[facility] [address] [place] [address] Ketones (U) [Mass/Vol] Negative Normal Negative [facility] Comment on above: Performed By: #### 2 448611, 94562968 ####[facility] [address] [place] [address] Reed.plasma/Lith ium.RBC (Bld) [Mass ratio] 0-3 Normal 0-3 [facility] Comment on above: Performed By: #### 2 801682, 55872852 ####[facility] [address] [place] [address] Mucus Ql (Urine sed) 2+ Normal [facility] Comment on above: Performed By: #### 2 081604, 07254156 ####[facility] [address] [place] [address] Nitrite Ql (U) Negative Normal Negative [facility] Comment on above: Performed By: #### 2 757501, 84353116 ####[facility] [address] [place] [address] pH (U) 7.0 [pH] Invalid Interpretation Code 5.0-9.0 [facility] Comment on above: Performed By: #### 2 698790, 28558908 ####[address] [address] Protein (U) [Mass/Vol] Negative Normal Negative [facility] Comment on above: Performed By: #### 2 631385, 74653988 ####[address] [address] Specific gravity (U) [Rel density] 1.010 Invalid Interpretation Code 1.005-1.030 [facility] Comment on above: Performed By: #### 2 301801, 09443056 ####[address] [address] Type of Urine collection method Clean Catch Normal [facility] Comment on above: Performed By: #### 2 397571, 01769329 ####[facility] [address] [place] [address] Urobilinogen Qn (U) 0.2 {Leon'U}/dL Normal 0.0-1.0 [facility] Comment on above: Performed By: #### 2 271512, 39663389 ####[facility] [address] [place] [address] WBC Auto Ql (U) 1+ Abnormal Negative [facility] Comment on above: Performed By: #### 2 871984, 05392896 ####[facility] [address] [place] [address] WBC LM.HPF (Urine sed) [#/Area] 0-5 Normal 0-5 [facility] Comment on above: Performed By: #### 2 947980, 42689840 ####[facility] [address] [place] [address] URINALYSISOrdered By: Dinah murray on 05-11-2023 Bacteria [...] PM) Normal Negative [facility] UA Auto SS Reed.plasma/Lith ium.RBC (Bld) [Mass ratio] 0-3 /HPF Normal [...] PM) Invalid Interpretation Code 1.005 - 1.030 [facility] UA Auto SS UA Spec Desc Clean Catch (05/11/23 12:05 PM) Normal [facility] UA Auto SS Urobilinogen Qn (U) 0.5442829 {Leon'U}/dL Normal 0.0 - 1.0 EU/dL [facility] UA Auto SS WBC Auto Ql (U) 1+ *ABN* (05/11/23 12:05 PM) Invalid Interpretation Code Negative [facility] UA Auto SS WBC LM.HPF (Urine sed) [#/Area] 0-5 /HPF Normal 0-5/HPF [facility] UA Auto SS eGFRon 05-11-2023 GFR/1.73 sq M.predicted among non-blacks MDRD (S/P/Bld) [Vol rate/Area] 44 mL/min/1.73 m2 Low >=59 [facility] Comment on above: Order Comment: Order added by Discern Expert. Result Comment: Industrial Waste Treatment Technician sommer kidney disease could be indicated at eGFR's of less than 60 mL/min/1.73m2. Kidney failure is indicated at less than 15 mL/min/1.73m2. Performed By: #### 2 523919, 8151568, 9065892, 7087250, 5031317, 53996648 ####[facility] [address] [place] [address] Outside Mammographyon 2022 Outside Mammography [id number]#1.0 0CD:127 Normal [facility] Consultation Noteon 02-02-20 Consultation Note [id number]#1.0 0CD:127 Normal [facility] Family Medicine Office/Clini c Noteon 12-02-2022 Family [...] were not effective. The patient saw her medical billing supervisor for her annual checkup and was diagnosed with glaucoma. She underwent laser treatment of bilateral eyes. She has a follow-up appointment with him next week. The patient states that for the last 3 years, she has been seeing double out of her left eye. Her medical billing supervisor informed her that it was ghost shadows. [...] after patient or guardian consented to allow [employer] to record this visit. YAA torpedo specialist and provider reviewed before signing. YAA: [...] mg Tab, (more content not included)... Normal [facility] Comment on above: Result Comment: Elec tronically Signed By: Anamaria Chinchilla MD\.br\Date and Time Signed: 12/02/22 13:01 EDT\.br\Electronically Co-Signed By: Angeline Wong\.br\Date and Time Co-Signed: 12/01/22 16:53 EDT Patient [facility] 11-15-2022 Patient Logs [id number]#1.00 CD:127 Normal [facility] Patient [facility] 11-03-2022 Patient Logs [id number]#1.0 0CD:127 Normal [facility] CULTURE URINEon 07-06-2022 CULTURE URINE Culture Observations : LIGHT GROWTH OF MIXED GENITAL NAN. NO POTENTIAL PATHOGENS SEEN. Normal [facility] Comment on above: Performed By: #### U RCX #### [facility] [address] [place] [address] Dr. Melchor Brock UA (CLEAN/CATCH) MICROSCOPIC IF INDICATEon 07-06-2022 Bilirubin Ql (U) Negative Normal NEGATIVE [facility] Comment on above: Performed By: #### U MICRO, UARMICR #### [facility] [address] [place] [address] Dr. Melchor Brock Clarity (U) CLEAR Normal CLEAR [facility] Comment on above: Performed By: #### U MICRO, UARMICR #### [facility] [address] [place] [address] Dr. Melchor Brock Color (U) LT. YELLOW Normal YELLOW [facility] Comment on above: Performed By: #### U MICRO, UARMICR #### [facility] [address] [place] [address] Dr. Melchor Brock Glucose Ql (U) Negative Normal NEGATIVE [facility] Comment on above: Performed By: #### U MICRO, UARMICR #### [facility] [address] [place] [address] Dr. Melchor Brock Hemoglobin Ql (U) TRACE-INTACT Abnormal NEGATIVE [facility] Comment on above: Performed By: #### U MICRO, UARMICR #### [facility] [address] [address] [address] Melchor Brock Ketones Ql (U) Negative Normal NEGATIVE [facility] Comment on above: Performed By: #### U MICRO, UARMICR #### [facility] [address] [address] [address] Melchor Brock LEUKOCYTES TRACE Abnormal NEGATIVE [facility] Comment on above: Performed By: #### U MICRO, UARMICR #### [facility] [address] [address] [address] Melchor Brock Nitrite Ql (U) Negative Normal NEGATIVE [facility] Comment on above: Performed By: #### U MICRO, UARMICR #### [facility] [address] [place] [address] Dr. Melchor Brock pH (U) 6.0 [pH] Normal 5-9 [facility] Comment on above: Performed By: #### U MICRO, UARMICR #### [facility] [address] [address] [address] Melchor Brock SPEC GRAVITY 1.020 Normal 1.005-<=1.025 [facility] Comment on above: Performed By: #### U MICRO, UARMICR #### [facility] [address] [address] [address] Melchor Brock UA PROTEIN Negative Normal NEGATIVE/ TRACE [facility] Comment on above: Performed By: #### U MICRO, UARMICR #### [facility] [address] [address] [address] Melchor Brock UR MICRO IND INDICATED Normal [facility] Comment on above: Performed By: #### U MICRO, UARMICR #### [facility] [address] [place] [address] Dr. Melchor Brock Urobilinogen Qn (U) 0.2 {Leon'U}/dL Normal 0.2 - 1. 0 [facility] Comment on above: Performed By: #### U MICRO, UARMICR #### [facility] [address] [address] [address] Melchor Brock URINE MICROSCOPIC ONLYon BACTERIA NONE SEEN Normal NONE SEEN [facility] Comment on above: Performed By: #### G SHON, LIPID #### [facility] [address] [address] [address] Melchor Brock Bacteria identified Cx Nom (U) CX ALREADY ORDERED Normal [facility] Comment on above: Performed By: #### G SHON, LIPID #### [facility] [address] [address] [address] Melchor Brock CAST NONE SEEN Normal NONE SEEN [facility] Comment on above: Performed By: #### G SHON, LIPID #### [facility] [address] [address] [address] Melchor Brock Crystals LM Nom (Urine sed) NONE SEEN Normal NONE SEEN [facility] Comment on above: Performed By: #### G SHON, LIPID #### [facility] [address] [address] [address] Melchor Brock Epithelial cells LM Ql (Urine sed) RARE Normal NONE SEEN /RARE [facility] Comment on above: Performed By: #### G SHON, LIPID #### [facility] [address] [address] [address] Melchor Brock MUCOUS NONE SEEN Normal NONE SEEN [facility] Comment on above: Performed By: #### G SHON, LIPID #### [facility] [address] [address] [address] Melchor Brock RBC 0-2 Normal 0-2 [facility] Comment on above: Performed By: #### G SHON, LIPID #### [facility] [address] [address] [address] Melchor Brock WBC 0-2 Abnormal NONE SEEN [facility] Comment on above: Performed By: #### G SHON, LIPID #### [facility] [address] [address] [address] Melchor Brock MG MAMM SCREEN 3D SARAHI CADon 03-15-2022 MG MAMM SCREEN 3D SARAHI CAD Patient: ISAURA RIVERA Exam Date: 03/15/2022 : 1950 Gender:F Ordering : DR FARA RICHARDSON . Admission #: [id number] Family : Order #: [id number] CLICK HERE TO VIEW EXAM RADIOLOGY REPORT [...] lung cancer at age 72. LOCATION: [facility] BREAST COMPOSITION: Heterogeneously dense,which may obscure [...] PALPABLE LUMP SHOULD BE BIOPSIED. Dictated by: Alan Conley M.D. on 03/15/2022 at 11:39 Approved by: Alan Conley M.D. on 03/15/2022 at 11:41 Normal [facility] GLUCOSE BLOODon 02-09-2022 Glucose [Mass/Vol] 99 mg/dL Normal 74-106 [facility] Comment on above: Performed By: #### G SHON, LIPID #### [facility] [address] [address] [address] Melchor Brock LIPID PROFILEon 02-09-2022 CHOL-HDL RATIO NORM SEE BELOW Normal [facility] Comment on above: Result Comment: 3.3 - 4.4 LOW RISK 4.4 - 7.1 AVERAGE RISK 7.1 - 11.0 MODERATE RISK >11.0 HIGH RISK Performed By: #### G SHON, LIPID #### [facility] [address] [address] [address] Melchor Brock Cholesterol [Mass/Vol] 202 mg/dL Critically high <=200 [facility] Comment on above: Performed By: #### G SHON, LIPID #### [facility] [address] [address] [address] Melchor Brock Cholesterol in HDL [Mass/Vol] 56 mg/dL Normal 40-60 [facility] Comment on above: Performed By: #### G HSON, LIPID #### [facility] [address] [address] [address] Melchor Brock Cholesterol in LDL [Mass/Vol] 112.6 mg/dL Normal [facility] Comment on above: Performed By: #### G SHON, LIPID #### [facility] [address] [address] [address] Melchor Brock Cholesterol.total/C holesterol in HDL [Mass ratio] 3.6 {ratio} Normal [facility] Comment on above: Performed By: #### G SHON, LIPID #### [facility] [address] [address] [address] Melchor Brock HDL NORMAL > or = 60 mg/dl - LO W CARDIOVASCULAR RISK <40 mg/dl - HIGH CARDIOVASCULAR RISK Normal [facility] Comment on above: Performed By: #### G SHON, LIPID #### [facility] [address] [place] [address] Dr. Melchor Brock LDL CALC NORMAL SEE BELOW Normal [facility] Comment on above: Result Comment: <100 mg/dl OPTIMAL 100 - 129 mg/dl NEAR OR ABOVE OPTIMAL 130 - 159 mg/dl BORDERLINE HIGH 160 - 189 mg/dl HIGH >190 mg/dl VERY HIGH Performed By: #### G SHON, LIPID #### [facility] [address] [place] [address] Dr. Melchor Brock Triglyceride [Mass/Vol] 167 mg/dL Critically high <=150 [facility] Comment on above: Performed By: #### G SHON, LIPID #### [facility] [address] [place] [address] Dr. Melchor Brock VLDL CALC 33.4 mg/dL Normal [facility] Comment on above: Performed By: #### G SHON, LIPID #### [facility] [address] [address] [address] Melchor Brock LIPID PROFILEon 11-05-2021 CHOL-HDL RATIO NORM SEE BELOW Normal [facility] Comment on above: Result Comment: 3.3 - 4.4 LOW RISK 4.4 - 7.1 AVERAGE RISK 7.1 - 11.0 MODERATE RISK >11.0 HIGH RISK Performed By: #### L IPID, BMP #### [facility] [address] [address] [address] Melchor Brock Cholesterol [Mass/Vol] 244 mg/dL Critically high <=200 [facility] Comment on above: Performed By: #### L IPID, BMP #### [facility] [address] [address] [address] Melchor Brock Cholesterol in HDL [Mass/Vol] 60 mg/dL Normal 40-60 [facility] Comment on above: Performed By: #### L IPID, BMP #### [facility] [address] [address] [address] Melchor Brock Cholesterol in LDL [Mass/Vol] 158.4 mg/dL Normal [facility] Comment on above: Performed By: #### L IPID, BMP #### [facility] [address] [address] [address] Melchor Brock Cholesterol.total/C holesterol in HDL [Mass ratio] 4.1 {ratio} Normal [facility] Comment on above: Performed By: #### L IPID, BMP #### [facility] [address] [address] [address] Melchor Brock HDL NORMAL > or = 60 mg/dl - LO W CARDIOVASCULAR RISK <40 mg/dl - HIGH CARDIOVASCULAR RISK Normal [facility] Comment on above: Performed By: #### L IPID, BMP #### [facility] [address] [address] [address] Melchor Brock LDL CALC NORMAL SEE BELOW Normal [facility] Comment on above: Result Comment: <100 mg/dl OPTIMAL 100 - 129 mg/dl NEAR OR ABOVE OPTIMAL 130 - 159 mg/dl BORDERLINE HIGH 160 - 189 mg/dl HIGH >190 mg/dl VERY HIGH Performed By: #### L IPID, BMP #### [facility] [address] [address] [address] Melchor Brock Triglyceride [Mass/Vol] 128 mg/dL Normal <=150 [facility] Comment on above: Performed By: #### L IPID, BMP #### [facility] [address] [place] [address] Dr. Melchor Brock VLDL CALC 25.6 mg/dL Normal [facility] Comment on above: Performed By: #### L IPID, BMP #### [facility] [address] [place] [address] Dr. Melchor Brock PROF CHEM 8 (BAS METB)on Anion gap [Moles/Vol] 10.7 mmol/L Normal [facility] Comment on above: Performed By: #### L IPID, BMP #### [facility] [address] [place] [address] Dr. Melchor Brock Calcium [Mass/Vol] 7.8 mg/dL Critically low 8.4-10.[address] [facility] Comment on above: Performed By: #### L IPID, BMP #### [facility] [address] [place] [address] Dr. Melchor Brock Chloride [Moles/Vol] 103 mmol/L Normal 98-107 [facility] Comment on above: Performed By: #### L IPID, BMP #### [facility] [address] [place] [address] Dr. Melchor Brock CO2 [Moles/Vol] 28.4 mmol/L Normal 22.0-30.0 [facility] Comment on above: Performed By: #### L IPID, BMP #### [facility] [address] [place] [address] Dr. Melchor Brock Creatinine [Mass/Vol] 1.05 mg/dL Critically high 0.52-1.04 [facility] Comment on above: Performed By: #### L IPID, BMP #### [facility] [address] [place] [address] Dr. Melchor Brock EGFR-AF CITIZEN OF [place] >60 Normal >=60 [facility] Comment on above: Performed By: #### L IPID, BMP #### [facility] [address] [address] [address] Melchor Brock EGFR-NON AF CITIZEN OF [place] 52 mL/min/1.73m2 Critically low >=60 [facility] Comment on above: Performed By: #### L IPID, BMP #### [facility] [address] [address] [address] Melchor Brock Glucose [Mass/Vol] 98 mg/dL Normal 74-106 [facility] Comment on above: Performed By: #### L IPID, BMP #### [facility] [address] [address] [address] Melchor Brock Potassium [Moles/Vol] 4.1 mmol/L Normal 3.4-5.0 [facility] Comment on above: Performed By: #### L IPID, BMP #### [facility] [address] [place] [address] Dr. Melchor Brock Sodium [Moles/Vol] 138 mmol/L Normal 137-145 [facility] Comment on above: Performed By: #### L IPID, BMP #### [facility] [address] [place] [address] Dr. Melchor Brock Urea nitrogen [Mass/Vol] 15.0 mg/dL Normal 7.0-17.0 [facility] Comment on above: Performed By: #### L IPID, BMP #### [facility] [address] [place] [address] Dr. Melchor Brock Urea nitrogen/Creatinine [Mass ratio] 14.3 mg/mg Normal [facility] Comment on above: Performed By: #### L IPID, BMP #### [facility] [address] [place] [address] Dr. Melchor Brock ECHOCARDIO M/2D COMPLETEon 0 10-05-2021 ECHOCARDIO M/2D COMPLETE Patient: ISAURA RIVERA Exam Date: 10/05/2021 : 1950 Gender:F Ordering : DR ANJELICA GAMBINO . Admission #: [id number] Family : Order #: [id number] CLICK HERE TO VIEW EXAM ECHOCARDIOGRAM REPORT [...] Area(A4C): 20.70 cm2 Left Atrium Systolic Volume(A2C): 86646 mm3 Left Atrium Systolic Volume(A4C): 30852 mm3 Mitral Valve MV E to A Ratio: 1.10 Deceleration [place]: 7410 mm/s2 Mitral Valve A-Wave Peak Velocity: [...] Dove M.D. on 10/06/2021 at 08:32 Normal [facility] XR DEXA BONE DENSITYon 09-18 [...] by: KVNG TILLMAN Date: 2021-09-18 10:56 Normal [facility] DEXA BONE DENSITY AXIAL SKEL [...] necksInterpreted by:ARLEY Valenciaigned by:Lora Mondragon MD09/12/18Final result [facility] DIGITAL SCREEN BILATERAL on 09-12-2017 [facility] DIGITAL SCREEN BILATERAL REPORT: BILATERAL [...] NEGATIVE)Interpreted by:ARLEY Valenciaigned by:Lora Mondragon MD09/12/18Final result [facility] Vital Signs Date Time Vital Sign Value Performing Clinician Facility 10-26-2023 14:38-0500 Body temperature 98.29 [degF] Nabil Leon MD Work Phone: [facility] 10-26-2023 14:38-0500 Diastolic blood pressure 90 mm[Hg] Nabil Leon MD Work Phone: [facility] 10-26-2023 14:38-0500 Heart rate 67 /min Nabil Leon MD Work Phone: [facility] 10-26-2023 14:38-0500 SaO2% (BldA) [Mass fraction] 98 % Nabil Leon MD Work Phone: [facility] 10-26-2023 14:38-0500 Systolic blood pressure 158 mm[Hg] Nabil Leon MD Work Phone: [facility] 10-26-2023 14:35-0500 Body mass index (BMI) [Ratio] 29.18 kg/m2 Nabil Leon MD Work Phone: [facility] 10-26-2023 14:35-0500 Body weight 77.11 kg Nabil Leon MD Work Phone: [facility] Encounters Encounter Date Encounter Type Care Provider Facility Start: 11-07-2023 End: 11-07-2023 Evaluation and management of inpatient [place] [facility] Start: 10-28-2023 Patient encounter status Nabil Leon MD Work Phone: [facility] Start: 10-28-2023 Telephone encounter Nabil andersen MD Work Phone: [facility] Start: 10-26-2023 End: 10-26-2023 ambulatory NABIL LEON [facility] Start: 10-26-2023 End: 10-26-2023 Office outpatient new 60 minutes Nabil Leon MD Work Phone: [facility] Comment on above: Endometrial thickeni ng on ultrasound (Primary Dx); Postmenopausal bleeding Start: 10-19-2023 ambulatory ANJELICA Bergeron [facility] Start: 10-19-2023 Telephone encounter Linette Ga RN [facility] Start: 10-11-2023 End: 10-11-2023 ambulatory ARIEL CITLALY Not Available Start: 09-01-2023 End: 09-02-2023 ambulatory VIPUL OBANDO [facility] Start: 08-25-2023 End: 08-25-2023 ambulatory NETO HERBERT Not Available Start: 08-11-2023 End: 08-12-2023 ambulatory Anamaria Chinchilla Facility:[facility] Start: 07-27-2023 End: 07-27-2023 ambulatory ARIEL CITLALY Not Available Start: 06-13-2023 End: 06-14-2023 ambulatory Anamaria Chinchilla Facility:[facility] Start: 05-30-2023 End: 05-31-2023 ambulatory Anamaria Chinchilla Facility:[facility] Start: 05-30-2023 End: 05-31-2023 ambulatory Anamaria Chinchilla Facility:[facility] Start: 05-11-2023 End: 05-12-2023 ambulatory Violet Rosado Leonidas [facility] Start: 05-11-2023 End: 05-11-2023 Lab Drop off Violet L Leonidas [facility] Start: 12-01-2022 End: 12-02-2022 ambulatory Anamaria Chinchilla [facility] Start: 10-28-2022 ambulatory Anamaria Chinchilla [facility] Start: 08-03-2022 End: 08-04-[address] ANJELICA [...] Start: 09-12-2017 End: 09-13-2017 Ambulatory FARA RICHARDSON [facility] Procedures Date Procedure Procedure Detail Performing Clinician Start: 09-12-2017 Screening mammograph y bi 2-view breast inc cad FARA RICHARDSON Start: 09-12-2017 Dxa bone density jeanne dy 1/> sites axial skel FARA RICHARDSON Cholecystectomy Vioelt Leonidas Comment on above: bile duct surgery Colonoscopy Violet Leonidas Comment on above: 2012 normal Laser device (physic al object) Violet Leonidas Comment on above: eye Plan of Treatment Date Care Activity Detail Author Start: 10-25-2024 Adult BMI Screening Adult BMI Screen ing [facility] Start: 10-25-2024 Tobacco Screening Tobacco Screening [facility] Start: 07-30-2024 ambulatory Ambulatory Facility: [facility] Start: 11-29-2023 End: 11-29-2023 Patient encounter procedure 11/29/2023 10:30 AM EDT Office Visit Lurdes Mck[facility] [address] [place] [address] Mary Garrett PA [address] [place] [address] Lurdes L Jonah [facility] Start: 11-14-2023 End: 11-14-2023 Admission to same day surgery center 11/14/2023 11:00 AM EDT - 11/14/2023 1:00 PM EDT Surgery [facility] [address] [place] [id number] Nabil Leon MD [address] [facility] [place] [address] DAVINCI HYSTERECTOMY SALPINGO OOPHORECTOMY(WITH FROZEN SECTION AND POSSIBLE STAGING) [facility] Comment on above: DAVINCI HYSTERECTOMY SALPINGO OOPHORECTOMY(WITH FROZEN SECTION AND POSSIBLE STAGING) Start: 11-14-2023 End: 11-14-2023 DAVINCI HYSTERECTOMY SALPINGO OOPHORECTOMY DAVINCI HYSTERECTOMY SALPINGO OOPHORECTOMY THICKENED ENDOMETRUM/POST MENOPAUSAL BLEEDING/CERVICAL STENOSIS 11/14/2023 11:00 AM EDT [facility] Start: 11-14-2023 Subsequent hospital visit by physician 11/14/2023 11:00 AM EDT Hospital Encounter [facility] [address] [place] [phone] Nabil Leon MD [address] [facility] [place] [address] [facility] Start: 11-07-2023 End: 11-07-2023 Admission to establishment 11/07/2023 10:30 AM EDT Support Visit [facility] On [address] [address] [facility] On [facility] Start: 10-28-2023 End: 10-27-2024 XR Chest PA and Lateral X-ray chest 2 views Imaging Routine Preop testing Expected: 10/28/2023, Expires: 10/27/2024 [facility] Comment on above: Expected: 10/28/2023 , Expires: 10/27/2024 Start: 10-26-2023 End: 10-26-2023 Patient encounter procedure 10/26/2023 3:00 PM EST Office Visit [facility] [address] [place] [address] [address] [place] [address] Nabil Leon MD [address] [place] [address], [address] [place] [address] [facility] Start: 04-22-2023 Influenza vaccination Influenza Vacc ine [facility] Start: 08-04-2022 Adult BMI Screening Adult BMI Screen ing [facility] Start: 2017 Fall Risk Screening Fall Risk Screen ing [facility] Start: 2002 Administration of varicella zoster vaccine Zoster (Shingles) Vaccine (1 of 2) [facility] Start: 1971 DTaP,Tdap and Td Vaccines (1 - Tdap) DTaP,Tdap and Td Vaccines (1 - Tdap) [facility] Start: 1964 Depression Screening Depression Scre ening [facility] Start: 1964 Tobacco Screening Tobacco Screening [facility] Start: 1952 Medicare Annual Well ness Visit Medicare Annual Wellness Visit [facility] End: 10-27-2024 CBC W Auto Differential panel - Blood CBC with auto diff Lab Routine Preop testing 1 Occurrences starting 10/28/2023 until 10/27/2024 [employer] Work Phone: Comment on above: 1 Occurrences starti ng 10/28/2023 until 10/27/2024 End: 10-27-2024 Comprehensive metabolic 2000 panel - Serum or Plasma Comprehensive metabolic panel Lab Routine Preop testing 1 Occurrences starting 10/28/2023 until 10/27/2024 Door 6 Comment on above: 1 Occurrences starti ng 10/28/2023 until 10/27/2024 End: 10-27-2024 ECG 12 lead ECG 12 lead ECG Routine Preop testing 1 Occurrences starting 10/28/2023 until 10/27/2024 Door 6 Comment on above: 1 Occurrences starti ng 10/28/2023 until 10/27/2024 Immunizations Immunization Date Immunization Notes Care Provider Jailyn martinez 07-12-2014 influenza virus vaccine, unspecified formulation [facility] Ga [facility] NEGATED: Highlighted row has not occurred!12-01-2022 SARS-CoV-2 mRNA (tozinameran 5y-11y) vaccine Violet Lauren [facility] Payers Date Payer Category Payer Medicare [id number] 2017 Unknown [employer] M [place] [employer] [id number] 2017-Present [phone] [address] [place] [address] [id number] 2017 Unknown [id number] 2014 Medicare [id number] 1959 Unknown [id number] 1950 Unknown [id number] 2.16.840.1.628662.3.579.2.593 1950 Unknown [id number] 2.16.840.1.544872.3.579.2.593 1950 Unknown [id number] 2.16.840.1.604105.3.579.2.593 1950 Unknown [id number] 2.16.840.1.761650.3.579.2.593 1950 Unknown [id number] 2.16.840.1.111662.3.579.2.593 1950 Unknown [id number] 2.16.840.1.838148.3.579.2.593 1952 Unknown [id number] 2.16.840.1.322688.3.579.2.593 1952 Unknown [id number] 2.16.840.1.499955.3.579.2.593 1952 Unknown [id number] 2.16.840.1.994904.3.579.2.727 1950 Unknown [id number] 2.16.840.1.951404.3.579.2.727 1952 Unknown [id number] 2.16.840.1.609026.3.579.2.727 1952 Unknown [id number] 2.16.840.1.086808.3.579.2.727 1952 Unknown [id number] 2.16.840.1.715976.3.579.2.727 1952 Unknown [id number] 2.16.840.1.936464.3.579.2.727 1952 Unknown [id number] 2.16.840.1.942313.3.579.2.727 1950 Unknown [id number] 2.16.840.1.558999.3.579.2.727 1952 Unknown [id number] 2.16.840.1.554841.3.579.2.727 1952 Unknown [id number] 2.16.840.1.373258.3.579.2.727 1952 Unknown [id number] 2.16.840.1.389276.3.579.2.727 1952 Unknown [id number] 2.16.840.1.545962.3.579.2.727 1952 Unknown [id number] 2.16.840.1.102550.3.579.2.1259 1952 Unknown [id number] 2.16.840.1.380851.3.579.2.1259 1952 Unknown [id number] 2.16.840.1.234561.3.579.2.1259 1952 Unknown [id number] 2.16.840.1.912538.3.579.2.1286 1952 Unknown [id number] 2.16.840.1.532128.3.579.2.1286 1950 Unknown [id number] 2.16.840.1.031136.3.579.2.1286 Unknown [id number] Social History Date Type Detail Facility Start: 01-12-2018 End: 05-11-2023 Tobacco smoking status Never smoked tobacco (finding) [facility] Tobacco smoking status Never [facility] Start: 01-12-2018 End: 10-02-2020 Sex Assigned At Female [facility] Start: 01-12-2018 Tobacco use and exposure Smokeless tobacco non-user [facility] Start: 01-12-2018 End: 10-26-2023 Alcohol intake Current drinker of alcohol (finding) [facility] Start: 01-12-2018 End: 10-02-2020 Alcohol intake [facility] Start: 1950 Sex Assigned At Not on file [facility] Start: 1950 Sex Assigned At Female [facility] Start: 10-24-2023 Gender identity Identifies as female gender (finding) [facility] Clinical Notes 08-05-2022 to 10-28-2023 Telephone Encounter - Raj Argueta - 10/28/2023 11:19 AM ESTTelephone Encounter - Raj Argueta - 10/28/2023 11:19 AM Sheri Leon MD - 10/26/2023 3:00 PM EST Note Date & Type Note Facility 10-28-2023 Miscellaneous Notes Formattin g of this note might be different from the original. Spoke with Mee 10/26 and 10/27 to confirm surgery plan. Patient is scheduled at [facility] with Dr Leon on 11/14/23. She knows to arrive at 9:00a for 11:00a surgery. Patient knows to call [phone] to locate closest [facility] facility in order to complete PAT testing. She has phone call PAT scheduled for 11/07/23. She will follow up with Mary in [place] on 11/29/23 at 10:30a. documented in this encounter [facility] 10-28-2023 Telephone encount er Note Spoke with Mee 10/26 and 10/27 to confirm surgery plan. Patient is scheduled at [facility] with Dr Leon on 11/14/23. She knows to arrive at 9:00a for 11:00a surgery. Patient knows to call [phone] to locate closest [facility] facility in order to complete PAT testing. She has phone call PAT scheduled for 11/07/23. She will follow up with Mary in [place] on 11/29/23 at 10:30a. [facility] 10-26-2023 History of Presen t illness Narrative Subjective: Isaura is a 73 y.o. female here for consultation from Dr. Das for evaluation and management of thickened endometrium and postmenopausal bleeding with cervical stenosis. This patient had a several month history of brown colored discharge and subsequently was seen in the office where she was found to have an endometrial stripe of 18 mm. She was taken to the operating room however due to severe cervical stenosis was unable to be sampled adequately. She had subsequent imaging that confirmed a persistently thickened endometrium she is here for further evaluation and management today. We did discuss definitive surgical management and talked about the underlying risk of malignancy. We will plan for minimally invasive hysterectomy with BSO and possible staging based on pathologic findings. She has no personal or family history of GI or case managers malignancies. Oncology History No overview note Isaura : Denies Early satiety Denies Abdominal distention Denies Leg swelling Denies Shortness of breath Reports Vaginal bleeding Denies Change in bowel habits Denies Change in bladder habits Denies Nausea and vomiting All other systems negative, unless specifically noted in HPI. Past Gynecologic History: OB History No obstetric history on file. No LMP recorded. Patient is postmenopausal. Hormonal Contraceptives No HRT use No History of abnormal pap No Past Surgical History: Procedure Laterality Date CHOLECYSTECTOMY COLONOSCOPY COLONOSCOPY AND POLYPECTOMY 01/12/2018 Performed by Nitesh Littlejohn MD at [facility] HEMORROIDECTOMY TONSILLECTOMY Past Medical History: Diagnosis Date High cholesterol Iron deficiency anemia 12/27/2016 Osteoporosis Pancreatitis Family History Problem Relation Age of Onset Cancer Mother Hyperlipidemia Mother Kidney disease Mother Arthritis Father Cancer Father Diabetes Father Heart disease Father Cancer Brother Diabetes Brother Heart disease Brother Kidney disease Brother Asthma Son Hearing loss Maternal Aunt Cancer Paternal Aunt Alcohol abuse Maternal Grandfather Hearing loss Maternal Grandfather Colon cancer Paternal Grandmother Anesthesia problems Neg Hx defects Neg Hx COPD Neg Hx Depression Neg Hx Drug abuse Neg Hx Hypertension Neg Hx Learning disabilities Neg Hx Liver cancer Neg Hx Liver disease Neg Hx Mental illness Neg Hx Mental retardation Neg Hx Miscarriages / Stillbirths Neg Hx Stomach cancer Neg Hx Stroke Neg Hx Vision loss Neg Hx Social History Tobacco Use Smoking status: Never Smokeless tobacco: Never Substance Use Topics Alcohol use: Yes Alcohol/week: 7.0 standard drinks of alcohol Types: 7 Glasses of wine per week Review of Symptoms: Pertinent items are noted in HPI. Objective: BP 158/90 Pulse 67 Temp 36.8 C (98.3 F) (Skin) Wt 77.1 kg (170 lb) SpO2 98% BMI 29.18 kg/m ECO- Asymptomatic General appearance: alert, appears stated age and cooperative Head: Normocephalic, without obvious abnormality, atraumatic Ears: normal TM's and external ear canals both ears Neck: no adenopathy, no carotid bruit, no JVD, supple, symmetrical, trachea midline and thyroid not enlarged, symmetric, no tenderness/mass/nodules Lungs: clear to auscultation bilaterally Breasts: normal appearance, no masses or tenderness Heart: regular rate and rhythm, S1, S2 normal, no murmur, click, rub or gallop Abdomen: abnormal findings: Soft, nontender, nondistended, no rebound or guarding. Pelvic: Deferred today Extremities: extremities normal, atraumatic, no cyanosis or edema Pulses: 2+ and symmetric Skin: Skin color, texture, turgor normal. No rashes or lesions Lymph nodes: Cervical, supraclavicular, and axillary nodes normal. Neurologic: Grossly normal Labs: No results found for: WBC , RBC , HGB , HCT , MCH , MCHC , PLT , MPV , RDW No results found for: BUN , NA , K , CL , BICARBONATE , GLUCOSE , ALBUMIN , PROT , CA , ALKP , AST , LABBILI No results found for: GGT No results found for: LDH No results found for: MG No results found for: PHOS No results found for: URIC Assessment: Patient is diagnosed with Patient Active Problem List Diagnosis Hypercholesterolemia Arthritis Iron deficiency anemia Endometrial thickening on ultrasound Postmenopausal bleeding Plan: 1. The patient has a documented plan of care to address pain. 2. Postmenopausal bleeding, thickened endometrium, cervical stenosis-will plan for minimally invasive hysterectomy with BSO and possible staging based on frozen section. 3. Discussed the risks of surgery in detail including; bleeding, infection, damage to internal organs, risk of anesthesia including-clots, pneumonia, myocardial infarction, stroke and even . The patient understands the risks and elects to proceed. 4. Total time spent was 63 minutes: Preparing to see the patient (e.g., review of tests) Obtaining and/or reviewing separately obtained history Performing a medically appropriate examination and/or evaluation Counseling and educating the patient/family/caregiver Ordering medications, tests, or procedures Referring and communicating with other health respiratory care specialist (not separately reported) Documenting clinical information in the electronic or other health record Independently interpreting results (not separately reported) and communicating results to the patient/family/caregiver Nabil Leon MD documented in this encounter [facility] 10-19-2023 Miscellaneous Notes Formattin g of this note might be different from the original. Left VM to schedule IT ADMINISTRATOR appt with case managers onc, call back # provided. Requested images from pelvic US be pushed via PACS from [employer]. [facility]23 Telephone encount er Note Left VM to schedule IT ADMINISTRATOR appt with case managers onc, call back # provided. Requested images from pelvic US be pushed via PACS from [employer]. [facility] 08-11-2023 Note Procedures Choosing a Surgeon When [...] a surgeon: ? Is certified by the [place] [employer]. To be board certified, a surgeon must go through an approved residency training program and pass a comprehensive exam. You can check your surgeon's board certification at www.abms.org/verify-certificat ion/ ? Has had any problems with state licensing authorities. You can check whether a surgeon has had malpractice claims or other professional problems by going to your state medical board at www.fsmb.org/ltuvvab-g-mwbmc- edical-board/ ? Has good ratings from other patients and providers. You may be able to get a consumer rating on your surgeon at www.checkbook.org/surgeonratin gs/ Step 3: Research the hospital or clinic [...] you are considering is certified by the [place] [employer]. ? Meet with [...] Reviewed: 10/19/2021 Elsevier Patient Education ? 2022 [employer]. [facility] 08-05-2022 Note PROCEDURE: XR FOOT L T [...] pain in this area. Electronically authenticated by: ALAN CONLEY Date: 2022-08-04 22:03 [facility] Evaluation + Plan note Future Appointments Appointment Date:05/30/2023 02:00:00 PM Scheduled Provider: Location:[facility] ([facility]3] Appointment Type: Medicare Wellness Subsequent Appointment Date:05/30/2023 02:40:00 PM Scheduled Provider:Anamaria Chinchilla MD Location:[facility] ([facility]3] Appointment Type: Open Diagnostic Tests PendingUrine Culture 05/11/23 [facility] Evaluation note Diagnosis Endometrial thickening on ultrasound- Primary Postmenopausal bleeding documented in this encounter [facility] Diagnosis Preop testing- Primary Unspecified pre-operative examination [facility] Narrative No data available for this section [facility] No data available for this section [facility] on filedocumented in this encounter [facility]ructionsNot on filedocumented in this encounter [facility] filedocumented in this [facility] No data available for this section [facility] Summary Purpose Family History No Family [...] Directives Records FoundNo Advanced Directives Records Found Reason for Referral Specialty Diagnoses / Procedures Referred By Domitila t Referred To Contact Diagnoses Preop testing Procedures ECG 12 lead Nabil Leon MD [address] [place] [address], [address] [id number] Referral ID Status Reason Start Date Expiration Date V isits Requested Visits Authorized [id number] Pending Review 10/28/2023 10/27/2024 1 1 Additional Source Comments INFORMATION SOURCE (unrecogn ized section and content) DATE CREATED AUTHOR 02/13/2018 [facility] DATE CREATED AUTHOR AUTHOR'S ORGANIZ ATION 08/12/2022 [facility] DATE CREATED AUTHOR AUTHOR'S ORGANIZ ATION 10/04/2023 [facility] DATE CREATED AUTHOR AUTHOR'S ORGANIZ ATION 10/12/2023 [facility] DATE CREATED AUTHOR AUTHOR'S ORGANIZ ATION 10/27/2023 [facility] DATE CREATED AUTHOR AUTHOR'S ORGANIZ ATION 10/28/2023 [facility] DATE CREATED AUTHOR AUTHOR'S ORGANIZ ATION 11/07/2023 [facility] Patient Care team informatio n (unrecognized section and content) Security Systems Installer Relationship Specialty Start Date End Date Anjelica Gambino MD [address] [place], [place] [id number] PCP - General Family Medicine 12/24/16 Security Systems Installer Relationship Specialty Start Date End Date Anjelica Gambino MD [address] [place] [id number] PCP - General Family Medicine 12/24/16 Security Systems Installer Relationship Specialty Start Date End Date Anjelica Gambino MD [address] [place] [address] PCP - General Family Medicine 12/24/16 FOR RECORDS PERTAINING TO PATIENTS WHO ARE [...] BE BASED ON THE PRIMARY CLINICAL RECORDS. [facility] [employer] [facility]. provides no warranty or guarantee of the accuracy or completeness of information in this document.
== END 2023-11-08 09:45 | disposition home or self-care (01) ==
LOC: EC 09:44
PROVIDERS: PCP Family Medicine; Visit Provider Podiatrist Foot & Ankle Surgery
DX: S92.325K Nondisplaced fracture of second metatarsal bone, left foot, subsequent encounter for fracture with nonunion (principal); M79.671 Pain in right foot
CPT/HCPCS: 73630

== ENCOUNTER 2023-12-20 15:13 | Outpatient (OUT) | payer MEDICARE, SELFPAY ==
--- NOTE | 2023-12-20 | XR_ITS ---
The [address] [address] Patient Name: PAPITO HAYDEN MRN: [id number] date: 1950 Sex: F Assigned Patient Location: Current Patient Location: Accession/Order Number: [id number] Exam Date: 12/20/2023 15:15 Report Date: 12/20/2023 16:12 At the request of: TORI FRITZ Procedure: XR foot LT min 3V EXAMINATION: XR foot RT min 3V, XR foot LT min 3V HISTORY: RIGHT FOOT PAIN COMPARISON: 11/08/2023 FINDINGS: RIGHT FINDINGS: BONES: No acute fracture or dislocation. Sclerosis in contour deformity proximal diaphysis of the fourth metatarsal, stable. Stable degenerative changes with marginal osteophyte formation. Calcaneal enthesopathic spurring SOFT TISSUES: Negative. No visible soft tissue swelling. OTHER: Negative. LEFT FINDINGS: BONES: No acute fracture or dislocation. Again noted is transverse lucency with some surrounding sclerosis proximal diaphysis of the second metatarsal. No significant interval bone bridging or periosteal reaction. Stable degenerative changes with marginal osteophyte formation. Calcaneal enthesopathic spurring SOFT TISSUES: Negative. No visible soft tissue swelling. OTHER: Negative. XR/XR foot LT min 3V IMPRESSION: RIGHT CONCLUSION: Stable exam LEFT CONCLUSION: Stable exam Electronically authenticated by: KVNG TILLMAN Date: 12/20/2023 16:12
--- NOTE | 2023-12-20 | XR_ITS ---
The [address] [address] Patient Name: PAPITO HAYDEN MRN: [id number] date: 1950 Sex: F Assigned Patient Location: Current Patient Location: Accession/Order Number: [id number] Exam Date: 12/20/2023 15:40 Report Date: 12/20/2023 16:12 At the request of: TORI FRITZ Procedure: XR foot RT min 3V EXAMINATION: XR foot RT min 3V, XR foot LT min 3V HISTORY: RIGHT FOOT PAIN COMPARISON: 11/08/2023 FINDINGS: RIGHT FINDINGS: BONES: No acute fracture or dislocation. Sclerosis in contour deformity proximal diaphysis of the fourth metatarsal, stable. Stable degenerative changes with marginal osteophyte formation. Calcaneal enthesopathic spurring SOFT TISSUES: Negative. No visible soft tissue swelling. OTHER: Negative. LEFT FINDINGS: BONES: No acute fracture or dislocation. Again noted is transverse lucency with some surrounding sclerosis proximal diaphysis of the second metatarsal. No significant interval bone bridging or periosteal reaction. Stable degenerative changes with marginal osteophyte formation. Calcaneal enthesopathic spurring SOFT TISSUES: Negative. No visible soft tissue swelling. OTHER: Negative. XR/XR foot RT min 3V IMPRESSION: RIGHT CONCLUSION: Stable exam LEFT CONCLUSION: Stable exam Electronically authenticated by: KVNG TILLMAN Date: 12/20/2023 16:12
== END 2023-12-20 15:14 | disposition home or self-care (01) ==
LOC: EC 15:13
PROVIDERS: PCP Family Medicine; Visit Provider Physician Assistant
DX: M79.671 Pain in right foot (principal); M84.375D Stress fracture, left foot, subsequent encounter for fracture with routine healing
CPT/HCPCS: 73630

== ENCOUNTER 2024-01-24 09:55 | Outpatient (OUT) | payer MEDICARE, SELFPAY ==
--- NOTE | 2024-01-24 | XR_ITS ---
The [address] [address] Patient Name: PAPITO HAYDEN MRN: [id number] date: 1950 Sex: F Assigned Patient Location: Current Patient Location: Accession/Order Number: [id number] Exam Date: 01/24/2024 10:15 Report Date: 01/25/2024 11:43 At the request of: SUNG COPELAND Procedure: XR foot LT min 3V PROCEDURE: XR foot LT min 3V HISTORY: LEFT FOOT PAIN COMPARISON: XR foot left 12/20/2023, XR foot bilateral 11/08/2023 FINDINGS: BONES:Stable, nondisplaced partial healing fracture of proximal fourth metatarsal. SOFT TISSUES:No visible soft tissue swelling. EFFUSION:None visible. OTHER: Negative. XR/XR foot LT min 3V IMPRESSION: 1. Stable osseous changes at base of fourth metatarsal suspected to represent partial healing of a fracture. No appreciable significant progression. Electronically authenticated by: ALAN CÁRDENAS Date: 01/25/2024 11:43
== END 2024-01-24 09:56 | disposition home or self-care (01) ==
LOC: EC 09:55
PROVIDERS: PCP Family Medicine; Visit Provider Podiatrist Foot & Ankle Surgery
DX: M79.672 Pain in left foot (principal); S92.345D Nondisplaced fracture of fourth metatarsal bone, left foot, subsequent encounter for fracture with routine healing
CPT/HCPCS: 73630

== ENCOUNTER 2024-02-28 09:44 | Outpatient (OUT) | payer MEDICARE, SELFPAY ==
--- NOTE | 2024-02-28 | XR_ITS ---
The [address] [address] Patient Name: PAPITO HAYDEN MRN: [id number] date: 1950 Sex: F Assigned Patient Location: Current Patient Location: Accession/Order Number: [id number] Exam Date: 02/28/2024 09:55 Report Date: 02/28/2024 10:41 At the request of: SUNG COPELAND Procedure: XR foot LT min 3V PROCEDURE: XR foot LT min 3V COMPARISON: 01/24/2024 HISTORY: LEFT FOOT PAIN FINDINGS: BONES:Stable sclerosis along the proximal diaphysis of the second metatarsal likely representing a subacute fracture. Incomplete bony bridging. Linear sclerosis proximal diaphysis of the fourth metatarsal could represent a subacute or chronic fracture. Mild hallux valgus. Mild degenerative change with marginal osteophyte formation. Mild enthesopathic spurring of the calcaneus SOFT TISSUES:Negative. No visible soft tissue swelling. EFFUSION:None visible. OTHER: Negative. XR/XR foot LT min 3V IMPRESSION: Subacute fracture of the second metatarsal with incomplete bony bridging Electronically authenticated by: KVNG TILLMAN Date: 02/28/2024 10:41
== END 2024-02-28 09:45 | disposition home or self-care (01) ==
LOC: EC 09:44
PROVIDERS: PCP Family Medicine; Visit Provider Podiatrist Foot & Ankle Surgery
DX: M84.375D Stress fracture, left foot, subsequent encounter for fracture with routine healing (principal)
CPT/HCPCS: 73630

== ENCOUNTER 2024-04-09 09:37 | Outpatient (OUT) | payer MEDICARE, SELFPAY ==
--- NOTE | 2024-04-09 09:43 | MM_ITS ---
Patient Name: PAPITO HAYDEN MR#: [id number] : 1950 Exam Date: 04/09/2024 Ordering Doctor: DR. ANAMARIA CHINCHILLA . RADIOLOGY REPORT PROCEDURE: MM TOMOSYNTHESIS SCREENING BI COMPARISON: MG MAMM SCREEN 3D SARAHI CAD, 03/15/2022. MM TOMOSYNTHESIS SCREENING BI, 04/04/2023. INDICATIONS: Screening Calculator Name NCI Breast Cancer Risk Assessment Tool 5 Year Breast Cancer Risk 1.40% Lifetime Breast Cancer Risk 4.00% Personal Breast Cancer No Personal Ovarian Cancer No Treatments None Family Cancers Aunt-maternal with breast cancer at age 70; Father with lung cancer at age 70. LOCATION: [facility] BREAST COMPOSITION: The breasts are heterogeneously dense,which may obscure small masses. FINDINGS: DIAGNOSTIC CATEGORY 1--NEGATIVE. NO CHANGE FROM COMPARISON ASSESSMENT. Scattered benign-appearing calcifications are present. Scattered benign-appearing lymph nodes are present. RIGHT BREAST: No significant suspicious finding. LEFT BREAST: No significant suspicious finding. RECOMMENDATIONS: ROUTINE MAMMOGRAM AND CLINICAL EVALUATION IN 12 MONTHS. PLEASE NOTE: A NORMAL MAMMOGRAM DOES NOT EXCLUDE THE POSSIBILITY OF BREAST CANCER. A CLINICALLY SUSPICIOUS PALPABLE LUMP SHOULD BE BIOPSIED. Dictated by: Bruno Milian MD on 04/09/2024 at 11:13 Approved by: Bruno Milian MD on 04/09/2024 at 12:02
== END 2024-04-09 09:38 | disposition home or self-care (01) ==
LOC: MAMMO 09:37
PROVIDERS: PCP Family Medicine; Visit Provider Family Medicine
DX: Z12.31 Encounter for screening mammogram for malignant neoplasm of breast (principal); Z80.3 Family history of malignant neoplasm of breast; Z80.1 Family history of malignant neoplasm of trachea, bronchus and lung
CPT/HCPCS: 77063; 77067

== ENCOUNTER 2024-04-16 07:35 | Outpatient (RCR) | payer MEDICARE, SELFPAY ==
[2024-04-13 10:38] LABS: Estimated GFR (African America 47 (>=60); Estimated GFR (Non-African Ame 39 (>=60)
[2024-04-16 09:40] VITALS: BP 125/74; PULSE 72; TEMP 36.4; O2SAT 96
[2024-04-16] MEDS: DENOSUMAB 60 MG/ML SYRINGE SUBQ (10:08)
== END 2024-04-21 23:59 | disposition home or self-care (01) ==
LOC: INF 07:35
PROVIDERS: PCP Family Medicine; Visit Provider Obstetrics & Gynecology
DX: M81.0 Age-related osteoporosis without current pathological fracture (principal)
CPT/HCPCS: 36415; 82310; 82565; 96372; J0897

== ENCOUNTER 2024-06-05 09:05 | Outpatient (OUT) | payer MEDICARE, SELFPAY ==
--- NOTE | 2024-06-05 | XR_ITS ---
The [address] [address] Patient Name: PAPITO HAYDEN MRN: [id number] date: 1950 Sex: F Assigned Patient Location: [facility] Current Patient Location: Accession/Order Number: [id number] Exam Date: 06/05/2024 09:19 Report Date: 06/06/2024 07:23 At the request of: SUNG COPELAND Procedure: XR foot LT min 3V PROCEDURE: XR foot LT min 3V COMPARISON: 02/28/2024 HISTORY: LEFT FOOT PAIN FINDINGS: BONES:Continued healing of a transverse extra-articular fracture base of the second metatarsal with increased sclerosis and callus formation. No new fracture or dislocation. Degenerative changes. SOFT TISSUES:Negative. No visible soft tissue swelling. EFFUSION:None visible. OTHER: Negative. XR/XR foot LT min 3V IMPRESSION: Stable healing second metatarsal fracture Electronically authenticated by: KVNG TILLMAN Date: 06/06/2024 07:23
--- OUTSIDE RECORDS SUMMARY | 2024-06-05 09:25 | XMS_ITS | CCD ---
Author Organization [facility]iniSy[facility] Care Team Providers Care Showplace Manager Name Role Phone FARA BOOKER Unavailable Unavailable BELEN, ANJELICA Bergeron Unavailable Unavailable FARA BOOKER Unavailable Unavailable GAMBINO, ANJELICA Bergeron Unavailable Unavailable [...] Bergeron Consulting Unavailable BELEN, DR ANJELICA Bergeron Primary Care Unavailable KARASIK, DR CHAUDHARI Consulting Unavailable KARNAY, DR CHAUDHARI Attending Unavailable KARNAY, DR CHAUDHARI Admitting Unavailable ZIEBER, DR ALAN Rico Consulting Unavailable [...] Consulting Unavailable ADE, DR CHAUDHARI Attending Unavailable KARNAY, DR CHAUDHARI Admitting Unavailable PRIMO, DR KVNG Mendoza Consulting Unavailable Anamaria Chinchilla. Primary Care Physician [phone] NETO HERBERT Attending Unavailable ARIEL DAS Attending Unavailable ARIEL DAS Attending Unavailable Anjelica Gambino MD Primary Care Provider [phone] NABIL LEON Attending Unavailable ANJELICA GAMBINO Referring Unavailable ANJELICA GAMBINO Primary Care Unavailable ANJELICA GAMBINO Referring Unavailable ANJELICA GAMBINO Primary Care Unavailable Anamaria Chinchilla MD Primary Care Provider ANJELICA GAMBINO Referring Unavailable ANAMARIA CHINCHILLA E Primary Care Unavailable NABIL LEON Admitting Unavailable NABIL LEON Attending Unavailable NABIL LEON Referring Unavailable ANJELICA GAMBINO Primary Care Unavailable SUNG NIÑO Attending Unavailable ANAMARIA CHINCHILLA E Primary Care Unavailable NABIL LEON Attending Unavailable NABIL LEON Referring Unavailable AMOR ANAMARIA E Primary Care Unavailable NABIL LEON Attending Unavailable NABIL LEON Referring Unavailable ANAMARIA CHINCHILLA E Primary Care Unavailable NABIL LEON Referring Unavailable ANAMARIA CHINCHILLA E Primary Care Unavailable MARY PENNINGTON Attending Unavailable ANJELICA GAMBINO Referring Unavailable ANAMARIA CHINCHILLA Primary Care Unavailable MARY PENNINGTON Attending Unavailable ANAMARIA CHINCHILLA E Referring Unavailable ANAMARIA CHINCHILLA E Primary Care Unavailable Anamaria Chinchilla. Attending Unavailable VIPUL OBANDO Attending Unavailable Anamaria Chinchilla E. Attending Unavailable Anamaria Chinchilla E. Attending Unavailable Anamaria Chinchilla E. Attending Unavailable Anamaria Chinchilla E. Attending Unavailable Anamaria Chinchilla ELaurie Attending Unavailable Violet Lauren Attending Unavailable Amor, Anamaria E. Admitting Unavailable Anamaria Chinchilla E. Attending Unavailable Violet Lauren L Admitting Unavailable LeonidasViolet field L Attending Unavailable Anamaria Chinchilla E. Admitting Unavailable Anamaria Chinchilla ELaurie Attending Unavailable Anamaria Chinchilla ELaurie Attending Unavailable Allergies Allergy Classification Reported Allergen(s) Allergy Type Date of Onset Reaction(s) Facility (2 sources) atorvastatin; Translations: [atorvastatin] Drug Allergy Unknown (qualifier value) [facility] (5 sources) HYDROmorphone; Translations: [hydromorphone] Drug Allergy 11-07-19 24 Unknown (qualifier value), Confusion, Hallucinations [facility] (2 sources) Pyrilamine; Translations: [pyrilamine] Drug Allergy Unknown (qualifier value) [facility] (1 source) No Known Medication Allergies; Translations: [No Known Medication Allergies] Propensity to adverse reactions (disorder) [facility] Repository Medications Current Medications Medication Drug Class(es) Dates Sig (Normalized) Sig (Original) amLODIPine 5 mg oral tablet (3 sources) Dihydropyridine Calcium Channel Sylvester take 1 tablet by mouth once daily at dinner amLODIPine (NORVASC) 5 mg tablet Indications: hypertension Take 1 tablet (5 mg total) by mouth Daily before evening meal Indications: high blood pressure. 0 Active aspirin 81 mg oral capsule (4 sources) Platelet Aggregation Inhibitor, Nonsteroidal Anti-inflammatory Drug Start: 11-29-2022 take 1 capsule by mouth once daily aspirin 81 mg oral capsule 81 mg = 1 cap(s), Oral, Daily, Refills(s) 0 Start Date: 11/29/22 Status: Ordered aspirin 81 mg ch ewable tablet Chew 1 tablet (81 mg total) and swallow every other day. Heart health 0 Active bimatoprost 0.3 mg/ml topical solution (3 sources) Prostaglandin Analog take 1 drop(s) into [...] eye with clean applicator 0 Active cholecalciferol 0.025 mg oral capsule (3 sources) Vitamin D take 1 capsule by mouth once daily in the morning cholecalciferol, vitamin D3, 25 mcg (1,000 unit) capsule Indications: prevention of vitamin D deficiency Take 1 capsule (1,000 Units total) by mouth in the morning. Indications: prevention of vitamin D deficiency. With calcium. 0 Active take 1 capsule by mo ut in the morning cholecalciferol, vitamin D3, 2,000 units capsule Take 1 capsule (2,000 Units total) by mouth in the morning. 0 Active chondroitin sulfates 400 mg / glucosamine hydrochloride 500 mg oral tablet (3 sources) take 1 tablet by mouth three times daily glucosamine-chondroitin 500-400 mg tablet Take 1 tablet by mouth 3 (three) times a day. 0 Active denosumab (3 sources) RANK Ligand Inhibitor denosumab (PROLIA GAYTAN BQ) Inject under the skin every 6 (six) months. Last dose 09/2023 0 Active denosumab (PROLI A SUBQ) Inject under the skin. 0 Active docusate sodium 100 mg oral capsule (1 source) take 2 capsules by mouth once daily at dinner docusate sodium (COLACE) 100 mg capsule Indications: constipation Take 2 capsules (200 mg total) by mouth Daily before evening meal Indications: constipation. 0 Active glucosamine hydrochloride 1500 mg oral tablet (1 source) Start: 12-02-19 glucosamine hydrochloride 1500 mg oral tablet 1,500 mg, 1 tab(s), Oral, Daily, 30 tab(s), Refill(s) 0 Start Date: 12/01/22 Status: Ordered glucosamine HCl/chondroitin gaytan (GLUCOSAMINE-CHONDROI TIN ORAL) (1 source) take 1 tablet by mouth in the morning glucosamine HCl/chondroitin gaytan (GLUCOSAMINE-CHONDROIT IN ORAL) Take 1 tablet by mouth in the morning. joints. 0 Active krill oil 500 mg oral capsule (1 source) Start: 12-02-19 take 1 capsule by mouth once daily omega-3 polyunsaturated fatty acids 500 mg oral capsule 500 mg = 1 cap(s), Oral, Daily, Refills(s) 0 Start Date: 12/01/22 Status: Ordered losartan potassium 25 mg oral tablet (3 sources) Angiotensin 2 Receptor Sylvester Start: 12-16-19 take 1 tablet by mouth twice daily losartan 25 mg Tab 25 mg = 1 tab(s), Oral, BID, # 180 tab(s), Refills(s) 0, Pharmacy: [facility] [id number], 162, cm, 05/11/23 9:36:00 EDT, Height/Length Dosing, 74.9, kg, 05/11/23 9:36:00 EDT, Weight Dosing Start Date: 05/11/23 Status: Ordered take 1 tablet by mouth in the mo rning losartan (COZAAR) 100 mg tablet Indications: hypertension Take 1 tablet (100 mg total) by mouth in the morning. Indications: high blood pressure. 0 Active meloxicam 15 mg oral tablet (5 sources) Nonsteroidal Anti-inflammatory Drug Start: 02-27-2023 End: 11-07-2023 take 1 tablet by mouth once daily as needed meloxicam 15 mg Tab See Instructions, TAKE ONE TABLET BY MOUTH DAILY NEEDED, # 90 tab(s), Refills(s) 0, Pharmacy: [facility] [id number], 162.6, cm, 12/01/22 15:23:00 EDT, Height/Length Dosing, 76.5, kg, 12/01/22 15:23:00 EDT, Weight Dosing Start Date: 02/27/23 Status: Ordered omega-3 acid ethyl esters ([facility]) 1000 mg oral capsule (2 sources) take 1 capsule by mouth at bedtime omega-3 acid ethyl esters (LOVAZA) 1 gram capsule Take 2 capsules (2 g total) by mouth in the morning and 2 capsules (2 g total) before bedtime. 0 Active OMEGA-3 ACID ETHYL ESTERS ORAL (1 source) take 500 mg by mouth once daily OMEGA-3 ACID ETHYL ESTERS ORAL Take 500 mg by mouth nightly. supplement 0 Active psyllium 3400 mg powder for oral suspension (4 sources) take 1 dose by mouth in the morning psyllium (METAMUCIL) 3.4 gram packet Indications: constipation Take 1 packet (3.4 g total) by mouth in the morning. Indications: constipation. 0 Active rosuvastatin calcium 20 mg oral tablet (4 sources) HMG-CoA Reductase Inhibitor Start: 02-27-2023 take 1 tablet by mouth once daily rosuvastatin 20 mg Tab See Instructions, TAKE ONE TABLET BY MOUTH DAILY, # 90 tab(s), Refills(s) 0, Pharmacy: [facility] [id number], 162.6, cm, 12/01/22 15:23:00 EDT, Height/Length Dosing, [...] Ordered vitamin e 450 mg oral capsule (4 sources) Start: 12-01-2022 take 1 capsule by mouth once daily vitamin E 450 mg oral capsule See Instructions, take one daily 400mg, Refills(s) 0 Start Date: 12/01/22 Status: Ordered take 1 capsule by [facility] once daily at dinner vitamin E, dl,tocopheryl acet, (vitamin E, dl, acetate,) 180 mg (400 unit) capsule Take 1 capsule (400 Units total) by mouth Daily before evening meal. 0 Active take 1 capsule by mouth in the m orning vitamin E, dl,tocopheryl acet, (vitamin E, dl, acetate,) 100 units Take 1 capsule (100 Units total) by mouth in the morning. 0 Active Completed/Discontinued Medications Medication Drug Class(es) Dates Sig (Normalized) Sig (Original) alendronic acid 70 mg oral tablet (4 sources) Bisphosphonate End: 11-07-2023 take 1 tablet by mouth in the morning alendronate (FOSAMAX) 70 mg tablet Take 70 mg by mouth every 7 days. Take in the morning with a full glass of water, on an empty stomach, and do not take anything else by mouth or lie down for the next 30 min. 0 11/07/2023 Discontinued (Therapy completed) atorvastatin 10 mg oral tablet (4 sources) HMG-CoA Reductase Inhibitor End: 11-07-2023 take 1 tablet by mouth once daily atorvastatin (LIPITOR) 10 mg tablet Take 10 mg by mouth daily. 0 11/07/2023 Discontinued (Therapy completed) omega-3 fatty acids-fish oil (FISH OIL) 300-1,000 mg capsule (4 sources) End: 11-07-2023 take 1 capsule by mouth once daily omega-3 fatty acids-fish oil (FISH OIL) 300-1,000 mg capsule Take 1 g by mouth daily. 0 11/07/2023 Discontinued (Therapy completed) take 1 capsule by mouth once ariadne ly omega-3 fatty acids-fish oil (FISH OIL) 300-1,000 mg capsule Take 1 g by mouth daily. 0 Active Problems Active Problems Problem Classification Problem Date Documented Date Episodic/Chronic Abdominal pain (1 source) Right sided abdominal pain 05-11-2023 Episodic Disorders of lipid metabolism (11 sources) Pure hypercholesterolemia, unspecified; Translations: [Hypercholesterolemia ] Onset: 12-27-2016 Chronic Essential hypertension (5 sources) Essential (primary) hypertension; Translations: [Hypertensive disorder] Onset: 11-05-2021 Chronic Heart valve disorders (1 source) Rheumatic disorders of both mitral and tricuspid valves; Translations: [RHEUMATIC D/O MITRAL TRICUSPID VALV] Onset: 10-08-2021 Chronic Menopausal disorders (6 sources) Postmenopausal bleeding; Translations: [Postmenopausal bleeding] Onset: 10-27-2023 05-11-2023 Chronic Osteoarthritis (4 sources) Arthritis; Translations: [Unspecified osteoarthritis, unspecified site] Onset: 12-27-2016 12-27-2016 Chronic Osteoporosis (1 source) Senile osteoporosis; Translations: [Age-related osteoporosis without current pathological fracture] 12-01-2022 Chronic Other aftercare (1 source) Encounter for other specified surgical aftercare; Translations: [Encounter for other specified surgical aftercare] Onset: 11-29-2023 Episodic Other connective tissue disease (4 sources) Pain in left foot; Translations: [PAIN IN LEFT FOOT] Onset: 08-03-2022 Episodic Other nervous system disorders (1 source) Other acute postprocedural pain; Translations: [Other acute postprocedural pain] Onset: 11-14-2023 Episodic Other screening for suspected conditions (not mental disorders or infectious disease) (5 sources) Endometrium thickened; Translations: [Abnormal findings on diagnostic imaging of other specified body structures] Onset: 10-27-2023 10-27-2023 Chronic Residual codes; unclassified (1 source) Pain, unspecified; Translations: [Pain, unspecified] Onset: 10-19-2023 Episodic Transient cerebral ischemia (6 sources) Transient cerebral ischemic attack, unspecified; Translations: [Transient cerebral ischemia] Onset: 09-11-2021 Chronic Unclassified (1 source) THICKENED ENDOMETRUM/POST MENOPAUSAL BLEEDING/CERVICAL STENOSIS Onset: 11-14-2023 Urinary tract infections (4 sources) Urinary tract infection, site not specified; Translations: [UTI SITE NOT SPECIFIED] Onset: 07-06-2022 Episodic Past or Other Problems Problem Classification Problem Date Documented Da te Episodic/Chronic Cardiac dysrhythmias (4 sources) Palpitations; Translations: [PALPITATIONS] Onset: 09-08-2021 Episodic Deficiency and other anemia (4 sources) Iron deficiency anemia; Translations: [Iron deficiency [...] Name Value Interpretation Reference Range Facil ity C Urineon 05-09-2024 Bacteria identified Cx Nom (U) Microbiology PROCEDURE: Urine Culture [R1] SOURCE: U CleanCatch BODY SITE: COLLECTED DATE/TIME: 05/07/2024 14:24 EDT RECEIVED DATE/TIME: 05/07/2024 17:50 EDT START DATE/TIME: 05/07/2024 17:50 EDT FREE TEXT SOURCE: Amor SHORT, Anamaria Chinchilla MD, Anamaria Harvey FINAL REPORTS Final Report [] Verified Date/Time: 05/09/2024 10:11 EDT >100,000 cfu/ml Citrobacter koseri SUSCEPTIBILITY RESULTS __ LEGEND: S=Susceptible, N/R=Not Reported, Blank=Data not available, or drug not advisable or tested, I=Intermediate, ESBL=Extended spectrum beta-lactamase, R=Resistant, TFG=Thymidine-dependen t strain, SUDHAKAR=Beta-lactamase positive, ARNOLD=mcg/m;(mg/L), S*=Predicted susceptible interp, R*=Predicted resistant interp [employer] Antibiotic ARNOLD Dilutn ARNOLD Interp Ampicillin >16 R Ampicillin/ <=8/4 S Sulbactam Aztreonam <=4 S Cefazolin <=2 S Cefepime <=2 S Ceftazidime <=1 S Ceftazidime/ <=8 S Avibactam Ceftriaxone <=1 S Cefuroxime <=4 S Ciprofloxacin <=0.25 S Ertapenem <=0.5 S Gentamicin <=2 S Levofloxacin <=0.5 S Meropenem <=1 S Nitrofurantoin <=32 S Piperacillin/ <=8 S Tazobactam Tetracycline <=4 S Tobramycin <=2 S Trimethoprim/ <=2/38 S Sulfa Performing Locations R1: This test was performed at: [facility], [address] [place] [address], [facility]- , , [facility] Comment on above: Performed By: #### [id number] #### [facility] [address] [place] [address] Ambulatory Visit Summaryon 0 05-07-2024 Ambulatory Visit Summary Ambulatory Visit Summary CATRACHOISAURA Alonzo :1950 Visit Date:05/07/2024 Ambulatory Visit Instructions Your Diagnosis UTI symptoms Non-smoker BMI 28.0-28.9,adult Over weight Your Care Team Attending Physician - Anamaria Chinchilla MD Primary Care Physician - Anamaria Chinchilla MD This Is Your Medications List amlodipine (amLODIPine 5 mg Tab) aspirin (aspirin 81 mg oral capsule) bimatoprost ophthalmic (bimatoprost 0.03% ophthalmic solution) calcium-vitamin D glucosamine (glucosamine hydrochloride 1500 mg oral tablet) losartan (losartan 100 mg Tab) omega-3 polyunsaturated fatty acids (omega-3 polyunsaturated fatty acids 500 mg oral capsule) rosuvastatin (rosuvastatin 20 mg Tab) vitamin E (vitamin E 450 mg oral capsule) Procedures Performed Cholecystectomy, Colonoscopy, Laser. Discharge Vitals Temperature (Oral) 36.5 ?C Heart Rate (Peripheral) 60 Respiratory Rate 18 Blood Pressure 124/78 Height 162.0 cm Height 64 in Weight 76.0 kg Weight 167.2 lb BMI 28.96 What to do next Scheduled Follow-Up Appointments Tuesday 10:30 AM EST With: Amor SHORT, Anamaria Harvey Where: [address] [address]- Tuesday 11:00 AM EST With: Where: [address] [address]- Medications What How Much When Instructions Unchanged amlodipine (amLODIPine 5 mg Tab) See instructions TAKE 1 TABLET BY MOUTH DAILY Unchanged aspirin (aspirin 81 mg oral capsule) See instructions 1 cap(s) Oral every other day Unchanged bimatoprost ophthalmic (bimatoprost 0.03% ophthalmic solution) Unchanged calcium-vitamin D Every day Unchanged glucosamine (glucosamine hydrochloride 1500 mg oral tablet) 1 Tablets By Mouth Every day Unchanged losartan (losartan 100 mg Tab) 1 Tablets By Mouth Every day Unchanged omega-3 polyunsaturated fatty acids (omega-3 polyunsaturated fatty acids 500 mg oral capsule) 1 Capsules By Mouth Every day Unchanged rosuvastatin (rosuvastatin 20 mg Tab) See instructions TAKE 1 TABLET BY MOUTH DAILY Unchanged vitamin E (vitamin E 450 mg oral capsule) See instructions take one daily 400mg Allergies Dilaudid (Unknown) atorvastatin (Unknown) pyrilamine (Unknown) Problems Ongoing - Any problem that you are currently receiving treatment for. Age-related osteoporosis without current pathological fracture Chronic kidney disease, stage 3a Foot pain, right Hypercholesterolemia Hyperlipidemia Hypertension Hypertensive kidney disease with stage 3a chronic kidney disease Postmenopause bleeding Pre-op exam Right sided abdominal pain TIA (transient ischemic attack) Patient Survey You may receive a survey via text or e-mail asking about your office visit. Please share your experience with us by completing your survey. We appreciate your feedback and thank you for choosing us for your care. Normal [facility] Medicine Office/Clini c [place] 05-07-2024 Family Medicine Office/Clinic Note Family Medicine Office/Clinic Note HPI Staff Isaura is a 73 year old female presenting for acute visit Acute: UTI Onset: Started last Symptoms: frequency, dysuria when urinating she feels like she is having spasms OTC used: No Last UTI: before Dr. Gambino retired Hx of kidney stones: no UA in office documented in chart History of Present Illness - See staff HPI. Review of Systems PHQ Score Initial Depression Screen Score: 0 SCORE Physical Exam Vitals & Measurements T: 36.5 ?C(Oral) HR: 60(Peripheral) RR: 18 BP: 124/78 SpO2: 97% HT: 64 in HT: 162.0 cm WT: 76.0 kg WT: 167.2 lb BMI: 28.96 General: alert, no acute distress ENMT: oral mucosa moist, Cardiovascular: regular rate and rhythm, normal peripheral perfusion Respiratory: Lungs CTA, respirations non labored Extremities: no deformity, no trauma Neurological: oriented x 4, LOC appropriate for age, CN II-XII intact, motor strength equal & normal bilaterally, speech normal Abdomen: Soft, Nontender, Non-distended, + BS Assessment/Plan 1. UTI symptoms (R39.9: Unspecified symptoms and signs involving the genitourinary system) U/A is positive. - Will treat. - Cultures sent Ordered: doxycycline, 100 mg = 1 cap(s), Oral, BID, X 7 day(s), # 14 cap(s), Refills(s) 0, Pharmacy: [facility] [id number], 162, cm, 05/07/24 14:07:00 EDT, Height/Length Dosing, 76, kg, 05/07/24 14:07:00 EDT, Weight Dosing Body Mass Index (BMI) documented 3008F Current tobacco non-user 1036F Depression Screening Negative 3352F E&M of Est. Patient Low 20-29 Min 11744 Influenza immunization status assessed 1030F Medication list documented in medical record 1159F Most recent diastolic blood pressure 80-89 mm Hg 3079F Patient screen for fall risk: no falls in last year or 1 fall with no injury in last year 1101F Review of all meds by a prescribing practitioner or clinical pharmacist documented in EHR 1160F Systolic BP <130 mm Hg (Most Recent) 3074F Urine Culture Urnls Dip Stick Auto w/o Microscopy POC [id number] 2. Non-smoker (Z78.9: Other specified health status) - Please continue to not smoke Ordered: doxycycline, 100 mg = 1 cap(s), Oral, BID, X 7 day(s), # 14 cap(s), Refills(s) 0, Pharmacy: [facility] [id number], 162, cm, 05/07/24 14:07:00 EDT, Height/Length Dosing, 76, kg, 05/07/24 14:07:00 EDT, Weight Dosing Body Mass Index (BMI) documented 3008F Current tobacco non-user 1036F Depression Screening Negative 3352F E&M of Est. Patient Low 20-29 Min 86294 Influenza immunization status assessed 1030F Medication list documented in medical record 1159F Most recent diastolic blood pressure 80-89 mm Hg 3079F Patient screen for fall risk: no falls in last year or 1 fall with no injury in last year 1101F Review of all meds by a prescribing practitioner or clinical pharmacist documented in EHR 1160F Systolic BP <130 mm Hg (Most Recent) 3074F Urine Culture 3. BMI 28.0-28.9,adult (Z68.28: Body mass index [BMI] 28.0-28.9, adult) - Diet and exercise advised Ordered: doxycycline, 100 mg = 1 cap(s), Oral, BID, X 7 day(s), # 14 cap(s), Refills(s) 0, Pharmacy: [facility] [id number], 162, cm, 05/07/24 14:07:00 EDT, Height/Length Dosing, 76, kg, 05/07/24 14:07:00 EDT, Weight Dosing Body Mass Index (BMI) documented 3008F Current tobacco non-user 1036F Depression Screening Negative 3352F E&M of Est. Patient Low 20-29 Min 63891 Influenza immunization status assessed 1030F Medication list documented in medical record 1159F Most recent diastolic blood pressure 80-89 mm Hg 3079F Patient screen for fall risk: no falls in last year or 1 fall with no injury in last year 1101F Review of all meds by a prescribing practitioner or clinical pharmacist documented in EHR 1160F Systolic BP <130 mm Hg (Most Recent) 3074F Urine Culture 4. Over weight (E66.3: Overweight) - As above Ordered: doxycycline, 100 mg = 1 cap(s), Oral, BID, X 7 day(s), # 14 cap(s), Refills(s) 0, Pharmacy: [facility] [id number], 162, cm, 05/07/24 14:07:00 EDT, Height/Length Dosing, 76, kg, 05/07/24 14:07:00 EDT, Weight Dosing Body Mass Index (BMI) documented 3008F Current tobacco non-user 1036F Depression Screening Negative 3352F E&M of Est. Patient Low 20-29 Min 86870 Influenza immunization status assessed 1030F Medication list documented in medical record 1159F Most recent diastolic blood pressure 80-89 mm Hg 3079F Patient screen for fall risk: no falls in last year or 1 fall with no injury in last year 1101F Review of all meds by a prescribing practitioner or clinical pharmacist documented in EHR 1160F Systolic BP <130 mm Hg (Most Recent) 3074F Urine Culture Follow-up No qualifying data available Problem List/Past Medical History Ongoing Age-related osteoporosis without current pathological fracture Chronic kidney disease, stage 3a Foot pain, right Hypercholesterolemia Hyperlipidemia Hypertension Hypertensive kidney disease with stage 3a (more content not included)... [facility] Comment on above: Result Comment: Elec tronically Signed By: Amor SHORT, Anamaria Saldivar.br\Date and Time Signed: 05/07/24 14:35 EDT Dexa Scanson 02-08-2024 Dexa Scans [id number]#1.0 0TIFF [facility] Consultation Noteon 02-07-20 Consultation Note [id number]#1.0 0TIFF [facility] RAD - MISCon 02-02-2024 RAD - MISC [id number]#1.0 0TIFF [facility] RAD - MISC [id number]#1.0 0TIFF Normal [facility] Consultation Noteon 01-30-20 Consultation Note [id number]#1.0 0TIFF Normal [facility] Consultation Noteon 12-26-19 Consultation Note [id number]#1.0 0TIFF Normal [facility] RAD - MISCon 12-21-2023 RAD - MISC [id number]#1.0 0TIFF Normal [facility] RAD - MISC [id number]#1.0 0TIFF Normal [facility] Consultation Noteon 12-09-19 Consultation Note [id number]#1.0 0TIFF Normal [facility] Consultation Noteon 11-24-19 24 Consultation Note [id number]#1.0 0TIFF Normal [facility] Discharge Documentationon Discharge Documentation [id number]#1.0 0TIFF Normal [facility] Cytologyon 11-14-2023 Cytology Normal [facility] Comment on above: Result Comment: [facility] [address] [place] [address] Cytology Consultation Patient Name:ISAURA HAYDEN:1950 (Age: 73)Gender:FTaken:11/14/2023eported:11/16/2023 14:25Physician(s):Nabil Leon M.D. ([phone])Copy To: Rec. #:[id number]: #[id number] Final Cytologic Diagnosis Pelvic washings: No malignant cells identified. nsk/11/16/2023 Interpretation performed at [facility], [address] [place] [address], License number: [id number].Electronically Signed Out By Edie Day MD Clinical History Thickened endometrium/ post menopausal bleeding/ cervical stenosis. Gross Description Received was 35mL of clear colorless fluid unfixed labeled as Catracho, pelvic washings . CytoLyt added in lab. Unable to obtain cellblock, ThinPrep made. 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 ([phone])Copy To: Rec. #:[id number]: #[id number] Final Pathologic Diagnosis Uterus, cervix, bilateral fallopian tubes, bilateral ovaries, TAHBSO: Cervix with no significant histopathologic abnormality Endometrium with cystic atrophy Myometrium with adenomyosis Bilateral adnexa with no significant histopathologic abnormality Report Electronically Signed Out [facility]/11/16/2023Edie Day MD Interpretation performed at [facility], [address] [place] [address], License number: [id number]. Clinical History Thickened endometrium, postmenopausal bleeding, cervical stenosis. Gross Description Received in formalin labeled CATRACHO, uterus, cervix, bilateral tubes and ovaries Is a 54 g hysterectomy specimen, which consists of a uterine corpus with attached cervix, resected with attached bilateral adnexa. The uterine corpus is symmetrical, 3 cm cornu to cornu, 2.6 cm anterior to posterior and 6.1 cm fundus to ectocervical face. The serosa is banda-pink, smooth and glistening. The cervix is 0.5 cm in length by up to 2.2 cm in diameter. The ectocervical face exhibits banda-pink, smooth and glistening mucosa with a stenotic cervical os. The specimen is opened to reveal a banda-pink, wrinkled and glistening endocervical canal. The endometrial cavity is banda-pink, focally erythematous, glistening and triangular, 2 x 2.4 cm with endometrium, up to 0.2 cm in thickness. The myometrium is banda-pink and trabecular, up to 1.8 cm in thickness. Within the myometrium are ill-defined, williamson-banda to pink, slightly indurated regions, which extend as much as 0.8 cm into the myometrium. The left fallopian tube with fimbriated distal end is 5 cm in length by up to 0.6 cm in diameter, and the right fallopian tube with fimbriated distal end is 5.5 cm in length by 0.6 cm in diameter. The serosa is williamson purple, smooth and glistening with paratubal cysts, 0.2 cm in greatest dimension. The right fallopian tube is inked black. Serial sections reveal pinpoint lumen within each segment. The left ovary is 1.5 x 0.9 x 0.8 cm, and the right ovary is 1.8 x 1 x 1.1 cm. The capsular surfaces are banda-pink to yellow, and bosselated. Serial sections reveal banda-pink to yellow ovarian parenchyma with focal simple cysts. No papillations or excrescences are identified. Cassettes: A Cervix B Serosa (to include posterior cul-de-sac) C-D Full-thickness cross-sections of anterior endomyometrium E-F Full-thickness cross-sections of posterior endomyometrium (to include indurated myometrium) G Entirety of trisected fimbriated end from left fallopian tube H Entirety of trisected fimbriated end from right fallopian tube (inked black) I Cross-sections of bilateral fallopian tubes (to include paratubal cysts, right tube inked black) J Left ovary K Right ovary L-N Remainder of endometrium (14, ss, [id number], A- K, m6) MONICO/MD kilgore/11/14/2023GR Specimen(s) Received Uterus, cervix, bilateral fallopian tubes, bilateral ovaries Fee Codes(s): 1; 44816 Consultation Noteon 11-10-19 Consultation Note [id number]#1.0 0TIFF Normal [facility] CBC AND AUTO DIFFon 11-09-19 ABSOLUTE BASOPHIL 0.1 X10E9/L Normal 0.0-0.2 [facility] Comment on above: Performed By: #### C BCA, CMP #### [facility] ([id number]) [address], [address] [place] [address] ABSOLUTE NEUTROPHIL 3.1 X10E9/L Normal 1.5-6.6 [facility] Comment on above: Performed By: #### C BCA, CMP #### [facility] ([id number]) [address], [address] [place] [address] Basophils/100 WBC (Bld) 0.9 % Normal [facility] Comment on above: Performed By: #### C BCA, CMP #### [facility] ([id number]) [address], [address] [place] [address] Eosinophils (Bld) [#/Vol] 0.2 10*3/uL Normal 0.0-0.4 [facility] Comment on above: Performed By: #### C BCA, CMP #### [facility] ([id number]) [address], [address] [place] [address] Eosinophils/100 WBC (Bld) 4.3 % Normal [facility] Comment on above: Performed By: #### C BCA, CMP #### [facility] ([id number]) [address] [place] [address] Erythrocyte distribution width (RBC) [Ratio] 13.1 % Normal 11.5-15.0 [facility] Comment on above: Performed By: #### C BCA, CMP #### [facility] ([id number]) [address] [place] [address] Hematocrit (Bld) [Volume fraction] 35.6 % Normal 35-47 [facility] Comment on above: Performed By: #### C BCA, CMP #### [facility] ([id number]) [address] [place] [address] Hemoglobin (Bld) [Mass/Vol] 12.4 g/dL Normal 11.7-15.5 [facility] Comment on above: Performed By: #### C REBEKA, CMP #### [facility] ([id number]) [address] [place] [address] Lymphocytes (Bld) [#/Vol] 1.7 10*3/uL Normal 1.0-3.5 [facility] Comment on above: Performed By: #### C REBEKA, CMP #### [facility] ([id number]) [address] [place] [address] Lymphocytes/100 WBC (Bld) 31.2 % Normal [facility] Comment on above: Performed By: #### C BCA, CMP #### [facility] ([id number]) [address] [place] [address] MCH (RBC) [Entitic mass] 33.3 pg Normal 27-34 [facility] Comment on above: Performed By: #### C BCA, CMP #### [facility] ([id number]) [address] [place] [address] MCHC (RBC) [Mass/Vol] 34.7 g/dL Normal 32-36 [facility] Comment on above: Performed By: #### C BCA, CMP #### [facility] ([id number]) [address] [place] [address] MCV (RBC) [Entitic vol] 96 fL Normal 80-100 [facility] Comment on above: Performed By: #### C BCA, CMP #### [facility] ([id number]) [address] [place] [address] Monocytes (Bld) [#/Vol] 0.5 10*3/uL Normal 0-0.9 [facility] Comment on above: Performed By: #### C BCA, CMP #### [facility] ([id number]) [address] [place] [address] Monocytes/100 WBC (Bld) 8.2 % Normal [facility] Comment on above: Performed By: #### C REBEKA, CMP #### [facility] ([id number]) [address] [place] [address] Neutrophils/100 WBC (Bld) 55.4 % Normal [facility] Comment on above: Performed By: #### C BCA, CMP #### [facility] ([id number]) [address] [place] [address] Platelet mean volume (Bld) [Entitic vol] 8.2 fL Normal 7-12 [facility] Comment on above: Performed By: #### C BCA, CMP #### [facility] ([id number]) [address] [place] [address] Platelets (Bld) [#/Vol] 284 10*3/uL Normal 150-450 [facility] Comment on above: Performed By: #### C BCA, CMP #### [facility] ([id number]) [address] [place] [address] RBC COUNT 3.72 X10E12/L Low 3.80-5.20 [facility] Comment on above: Performed By: #### C BCA, CMP #### [facility] ([id number]) [address] [place] [address] WBC (Bld) [#/Vol] 5.6 10*3/uL Normal 4.0-11.0 [facility] Comment on above: Performed By: #### C BCA, CMP #### [facility] ([id number]) [address] [place] [address] COMPREHENSIVE METABOLIC PANE Rashi 11-09-2023 Albumin [Mass/Vol] 4.5 g/dL Normal 3.2-5.3 [facility] Comment on above: Performed By: #### C BCA, CMP #### [facility] ([id number]) [address] [place] [address] ALP [Catalytic activity/Vol] 48 U/L Normal 39-130 [facility] Comment on above: Performed By: #### C BCA, CMP #### [facility] ([id number]) [address] [place] [address] ALT [Catalytic activity/Vol] 14 U/L Normal 0-31 [facility] Comment on above: Performed By: #### C BCA, CMP #### [facility] ([id number]) [address] [place] [address] Anion gap [Moles/Vol] 9 mmol/L Normal 5-15 [facility] Comment on above: Performed By: #### C BCA, CMP #### [facility] ([id number]) [address] [place] [address] AST [Catalytic activity/Vol] 20 U/L Normal 0-41 [facility] Comment on above: Performed By: #### C BCA, CMP #### [facility] ([id number]) [address] [place] [address] Bilirubin [Mass/Vol] 0.5 mg/dL Normal 0.3-1.2 [facility] Comment on above: Performed By: #### C BCA, CMP #### [facility] ([id number]) [address] [place] [address] Calcium [Mass/Vol] 9.2 mg/dL Normal 8.5-10.5 [facility] Comment on above: Performed By: #### C BCA, CMP #### [facility] ([id number]) [address] [place] [address] Chloride [Moles/Vol] 106 mmol/L Normal 98-109 [facility] Comment on above: Performed By: #### C BCA, CMP #### [facility] ([id number]) [address] [place] [address] CO2 [Moles/Vol] 28 mmol/L Normal 22-32 [facility] Comment on above: Performed By: #### C BCA, CMP #### [facility] ([id number]) [address] [place] [address] Creatinine [Mass/Vol] 1.17 mg/dL High 0.40-1.00 [facility] Comment on above: Result Comment: METH OD TRACEABLE TO IDMS STANDARD Performed By: #### C BCA, CMP #### [facility] ([id number]) [address] [place] [address] GFR/1.73 sq M.predicted among non-blacks MDRD (S/P/Bld) [Vol rate/Area] 50 mL/min/{1.73_m2} Low >59 [facility] Comment on above: Result Comment: Reported eGFR is based on the CKD-EPI 2020 equation that does not use a race coefficient. Performed By: #### C BCA, CMP #### [facility] ([id number]) [address] [place] [address] Glucose [Mass/Vol] 110 mg/dL High 65-99 [facility] Comment on above: Performed By: #### C BCA, CMP #### [facility] ([id number]) [address] [place] [address] Potassium [Moles/Vol] 4.1 mmol/L Normal 3.5-5.0 [facility] Comment on above: Performed By: #### C BCA, CMP #### [facility] ([id number]) [address] [place] [address] Protein [Mass/Vol] 7.2 g/dL Normal 6.0-8.0 [facility] Comment on above: Performed By: #### C BCA, CMP #### [facility] ([id number]) [address] [place] [address] Sodium [Moles/Vol] 143 mmol/L Normal 134-146 [facility] Comment on above: Performed By: #### C BCA, CMP #### [facility] ([id number]) [address] [place] [address] Urea nitrogen [Mass/Vol] 18 mg/dL Normal 5-27 [facility] Comment on above: Performed By: #### C BCA, CMP #### [facility] ([id number]) [address] [place] [address] XR CHEST 2 VWSon 11-09-2023 XR CHEST 2 VWS XR CHEST 2 VWS History: Preop testing Exam/Technique: PA and lateral chest Comparison: None Findings: There is no evidence of active pulmonary or pleural disease. Cardiac and mediastinal contours are within normal limits. IMPRESSION: No evidence of active pulmonary disease demonstrated. Finalized by Lewis Lyn MD on 11/09/2023 10:52 AM Normal [facility] Consultation Noteon 10-25-19 Consultation Note [id number]#1.0 0TIFF Normal [facility] Consultation Noteon 10-03-19 Consultation Note [id number]#1.0 0TIFF Normal [facility] RAD - MISCon 10-03-2023 RAD - MISC [id number] 20 [id number]#1.0 0TIFF Normal [facility] Consultation Noteon 09-29-19 Consultation Note [id number]#1.0 0TIFF Normal [facility] Consultation Noteon 09-21-19 Consultation Note [id number]#1.0 0TIFF [facility] Dexa Scanson 09-21-2023 Dexa Scans [id number] 10 [id number]#1.0 0TIFF Normal [facility] Consultation Noteon 09-12-19 Consultation Note [id number]#1.00 TIFF Normal [facility] Patient Logson 09-02-2023 Patient Logs [id number] 06 [id number]#1.00 TIFF [facility] Ambulatory Visit Summaryon 0 09-01-2023 Ambulatory Visit Summary ISAURA HAYDEN :1950 Visit Date:09/01/2023 Ambulatory Visit Instructions Your [...] Follow-Up Appointments Tuesday 10:30 AM EST With: Amor SHORT, Anamaria Harvey Where: [facility] Family Medicine Outing Normal [address] [place] [address]- \.br\ Medications\.br\ What How Much When Instructions\.br\ [...] for choosing us for your care.\.br\ \.br\ [facility] Consultation Noteon 09-01-19 Consultation Note [id number]#1.0 0TIFF Normal [facility] Medicine Office/Clini c Noteon 09-01-2023 Family Medicine [...] 96.3 fL (05/11/23) Chloride: 108 mmol/L (05/11/23) [place] Absolute: 0.4 E9/L (05/11/23) CO2: 27 mmol/L (05/11/23) [place] Auto: 7.8 % (05/11/23) Creatinine: 1.3 mg/dL [...] Ongoing Ag (more content not included)... Normal [facility] Comment on above: Result Comment: Nick arenas Signed By: VIPUL OBANDO CNP.kelly\Date and Time Signed: 09/01/23 13:24 EST Patient [...] Herbs. Spices. Seasoni (more content not included)... [facility] Consultation Noteon 08-24-19 Consultation Note [id number]#1.0 0TIFF [facility] Consultation Note [id number] 20 [id number]#1.0 0TIFF [facility] RAD - CT Reporton 08-24-2023 RAD - CT Report [id number]#1.0 0TIFF [facility] Operative Reporton Operative Report [id number]#1.0 0TIFF [facility] Patient Correspondenceon Patient Correspondence [id number]#1.0 0TIFF [facility] Provider Letteron 08-12-2023 Provider Letter [address] [place] [address] August 12, 2023 ISAURA HAYDEN [address] [address] : [address] Das, The above patient has been evaluated at your request for preoperative clearance. After assessment of available pertinent labs and diagnostic tests, I feel this patient is medically optimized for surgery. Final discretion of whether the patient is cleared for surgery remains up to the surgeon/anesthesiologi st. Thank you, Violet Lauren, DOTTY-Tobi [facility] Ambulatory Visit Summaryon 1 10-12-2022 Ambulatory Visit Summary ISAURA HAYDEN :1950 Visit Date:08/11/2023 Ambulatory Visit Instructions Your [...] AM EST With: Anamaria Chinchilla MD Where: [facility] Medicine Outing Normal [address] [place] [address]- \.br\ Medications\.br\ What How Much When Instructions\.br\ [...] for choosing us for your care.\.br\ \.br\ [facility] ECG 12-Leadon 08-11-2023 ECG 12-Lead [id number]#1.0 0TIFF Normal [facility] Family Medicine Office/Clini c Noteon [...] Recorded pneumococcal 23-valent vaccine 06/25/2008 Recorded Normal [facility] Comment on above: Result Comment: Elec tronically Signed By: Amor SHORT, Anamaria Saldivar.br\Date and Time Signed: 08/11/23 12:57 EST RAD - MISCon 08-10-2023 RAD - MISC [id number]#1.0 0TIFF [facility] Consultation Noteon 07-07-20 Consultation Note [id number]#1.0 0TIFF [facility] RAD - MISCon 07-07-2023 RAD - MISC [id number]#1.0 0TIFF [facility] Patient Logson 06-14-2023 Patient Logs [id number]#1.0 0TIFF [facility] Physician Referralon 023 Physician Referral [id number]#1. 00TIFF [facility] Nurse Consultation Noteon Nurse Consultation Note [...] 05/17/2011 Recorded pneumococcal 23-valent vaccine 06/25/2008 Recorded [facility] Patient Logson 06-07-2023 Patient Logs [id number]#1.0 0TIFF [facility] Auth for Release of Medical Recordson 06-01-2023 Auth for Release of Medical Records [id number]#1.0 0TIFF [facility] Family Medicine Office/Clini c Noteon 06-01-2023 [...] 05/30/2023 14:34 EDT Summary Preferred Lab : [facility] Preferred Rad : [facility] Patient Counseled : Nutrition, Physical [...] area free o (more content not included)... [facility] Comment on above: Result Comment: Elec tronically Signed By: Anamaria Chinchilla MD\.br\Date and Time Signed: 06/01/23 10:38 EDT\.br\Electronically Co-Signed By: Neftaly Wolfe\.br\Date and Time Co-Signed: 05/30/23 15:29 EDT Auth for Release of Medical Recordson 05-31-2023 Auth for Release of Medical Records [id number]#1.0 0TIFF [facility] Physician Referralon 023 Physician Referral [id number]#1. 00TIFF [facility] Screenson 05-31-2023 Screens [id number]#1. 00TIFF [facility] Ambulatory Visit Summaryon 1 Ambulatory Visit Summary ISAURA HAYDEN :1950 Visit Date:05/30/2023 Ambulatory Visit Instructions Your [...] Follow-Up Appointments Tuesday 9:00 AM EDT Where: [facility] Invalid Interpretation Code [address] [place] [address]- \.br\ Someone Will Contact You Regarding These Appointments\.br\ [facility] 15:02:00 EDT, Hypertension [facility] Ambulatory Visit Summary ISAURA HAYDEN :1950 Visit Date:05/30/2023 Ambulatory Visit Instructions Your [...] Follow-Up Appointments Tuesday 9:00 AM EDT Where: [facility] Invalid Interpretation Code [address] [place] [address]- \.br\ Someone Will Contact You Regarding These Appointments\.br\ [facility] External Ambulatory Referral, Podiatry, [facility], 05/30/23 15:02:00 EDT, Hypertension [facility] Ambulatory Visit Summary ISAURA HAYDEN Alonzo :1950 Visit Date:05/30/2023 Ambulatory Visit Instructions [...] Follow-Up Appointments Tuesday 9:00 AM EDT Where: [facility] Normal [address] [place] [address]- \.br\ Medications\.br\ What How Much When Why [...] abdominal pain\.br\ TIA (transient ischemic attack)\.br\ \.br\ [facility] Ambulatory Visit Summary ISAURA HAYDEN :1950 Visit Date:05/30/2023 Ambulatory Visit Instructions Your [...] Follow-Up Appointments Tuesday 11:00 AM EST Where: [facility] Medicine Office/Clini c Noteon 05-30-2023 Family [...] a nurse visit in 2 weeks. Ordered: [facility] External Ambulatory Referral Medicare Subsequent Visit G0439 2. Hypertensive kidney disease with stage 3a chronic kidney disease (I12.9: Hypertensive chronic kidney disease with stage 1 through stage 4 chronic kidney disease, or unspecified chronic kidney disease) - Working to control Bps to protect the kidneys Ordered: [facility] External Ambulatory Referral 3. Chronic kidney disease, stage 3a (N18.31: Chronic kidney disease, stage 3a) - Will have the patient cut down on the NSAIDs to protect the kidneys Ordered: [facility] External Ambulatory Referral 4. Hypercholesterolemia (E78.00: Pure hypercholesterolemia, unspecified) - Continue on the statin Ordered: [facility] External Ambulatory Referral 5. Postmenopause bleeding (N95.0: Postmenopausal bleeding) - Follow up with Dr. Das Ordered: [facility] External Ambulatory Referral [...] Daily, # 90 tab(s), Refills(s) 0, Pharmacy: [facility] [id number], 162, cm, 05/30/23 14:36:00 EDT, Height/Length Dosing, 75.9, kg, 05/30/23 14:35:00 EDT, Weight Dosing losartan, See Instructions, Take 1 tab in am and 2 in pm, # 270 tab(s), Refills(s) 3, Pharmacy: [facility] [id number], 162.6, cm, 12/01/22 15:23:00 EDT, Height/Length Dosing, 76.5, kg, 12/01/22 15:23:00 EDT, Weight Dosing rosuvastatin, See Instructions, TAKE ONE TABLET BY MOUTH DAILY, # 90 tab(s), Refills(s) 0, Pharmacy: [facility] [id number], 162, cm, 05/30/23 14:36:00 EDT, Height/Length Dosing, [...] immunization status assessed 1030F Lab Specimen Collect 88929 Lipid Panel Medication list documented in medical [...] Medications aspir (more content not included)... Normal [facility] Comment on above: Result Comment: Elec tronically Signed By: Amor SHORT, Anamaria Harvey\.br\Date and Time Signed: 05/30/23 15:10 EDT Lipid Panelon 05-30-2023 Cholesterol [Mass/Vol] 206 mg/dL High 120-200 [facility] Comment on above: Performed By: #### 2 [id number] #### [facility] [address] [place] [address] Cholesterol in HDL [Mass/Vol] 61 mg/dL Invalid Interpretation Code [facility] Comment on above: Result Comment: HDL > or equal to 60 mg/dL: Low cardiovascular risk HDL < 40 mg/dL : High cardiovascular risk Performed By: #### 2 [id number] #### [facility] [address] [place] [address] Cholesterol in LDL [Mass/Vol] 111 mg/dL Normal <=129 [facility] Comment on above: Performed By: #### 2 [id number] #### [facility] [address] [place] [address] Cholesterol in VLDL [Mass/Vol] 35 mg/dL Normal 7-40 [facility] Comment on above: Performed By: #### 2 [id number] #### [facility] [address] [place] [address] Triglyceride [Mass/Vol] 177 mg/dL High <=149 [facility] Comment on above: Performed By: #### 2 [id number] #### [facility] [address] [place] [address] Patient Educationon 05-30-20 Patient Education Caregiving Fall [...] night-lights. ? Place frequently used items in ktte-rq-rhzaz places. Lower the shelves around your home [...] the way. ? Do not use floor cambodian or wax that makes floors slippery. If [...] include working with a physical therapist or application trainer to improve your strength, balance, and endurance. Where to find more information ? Centers for Disease Control and Prevention, [place]: www.cdc.gov ? National [place] on Aging: www.brandy.nih.gov Contact a health care [...] health ca (more content not included)... Normal [facility] Pre-Visit Planningon 023 Pre-Visit Planning - From: Benita MENJIVAR, Daly To: Amor SHORT, Anamaria Harvey; Sent: 05/27/2023 13:37:55 EDT Subject: Pre-Visit Planning Due Date/Time: 05/27/2023 13:37:00 EDT Caller Name: ISAURA HAYDEN; Caller Number: Adrian , Mitesh Hi Dr. [...] feel free to contact me at extension [phone]. Thank you! Daly Joy, ALEXN, RN, CCM, CCDS, CCDS-O From: Amor SHORT, Anamaria Harvey To: Benita MENJIVAR, Daly; Sent: 05/30/2023 13:07:52 EDT Subject: RE: Pre-Visit Planning Caller Name: ISAURA HAYDEN; Caller Number: Adrian , Mitesh Please add 3A Normal [address] [facility] C Urineon 05-13-2023 Bacteria identified Cx Nom (U) Microbiology PROCEDURE: Urine Culture [R1] SOURCE: U CleanCatch BODY SITE: COLLECTED DATE/TIME: 05/11/2023 12:05 EDT RECEIVED DATE/TIME: 05/11/2023 18:38 EDT START DATE/TIME: 05/11/2023 19:05 EDT FREE TEXT SOURCE: Violet Allen, Violet Rosado FINAL REPORTS Final Report [] Verified Date/Time: 05/13/2023 10:07 EDT <10,000 cfu/ml Mixed skin contaminants Performing Locations R1: This test was performed at: [facility], [address] [place] [address], [address]- , [place], [facility] Comment on above: Performed By: #### 2 062648, [id number] ####[facility] [address] [place] [address] RAD - Ultrasound Reporton RAD - Ultrasound Report [id number] 0CD:127 Normal [facility] RAD - Ultrasound Report [id number] 0CD:127 Normal [facility] Ambulatory Visit Summaryon 0 05-11-2023 Ambulatory Visit Summary ISAURA HAYDEN Alonzo :1950 Visit Date:05/11/2023 Ambulatory Visit Instructions [...] Appointments Tuesday 2:00 PM EDT With: Where: [facility] Normal [address] [place] [address]- \.br\ Medications\.br\ What How Much When Instructions\.br\ [...] abdominal pain\.br\ TIA (transient ischemic attack)\.br\ \.br\ [facility] Amylaseon 05-11-2023 Amylase [Catalytic activity/Vol] 74 U/L Normal 25-157 [facility] Comment on above: Performed By: #### 2 755109, 6175569, 0944202, 0667299, 2518290, 72880284 ####[facility] [address] [place] [address] Auto Diffon 05-11-2023 Basophils/100 WBC (Bld) 0.8 % Normal 0.0-2.0 [facility] Comment on above: Order Comment: Order Added by Discern Expert. Performed By: #### 2 292863, 1332424, 9813390, 2156836, 4331001, 48510310 ####[address] [place] [address] Basophils/Leukocyte s Auto (Bld) [Pure # fraction] 0.0 E9/L Normal 0.0-0.2 [facility] Comment on above: Order Comment: Order Added by Discern Expert. Performed By: #### 2 337906, 1370089, 4569989, 3997834, 3226335, 16709759 ####[address] [address] Eosinophils/100 WBC (Bld) 5.2 % Normal 0.0-8.0 [facility] Comment on above: Order Comment: Order Added by Discern Expert. Performed By: #### 2 018103, 3279502, 0843933, 9677529, 2028260, 27940736 ####[address] [address] Eosinophils/Leukocy ambrosio Auto (Bld) [Pure # fraction] 0.3 E9/L Normal 0.0-0.5 [facility] Comment on above: Order Comment: Order Added by Discern Expert. Performed By: #### 2 250952, 6701562, 0070324, 6043811, 2979451, 58396528 ####[address] [address] Lymphocytes/100 WBC (Bld) 31.3 % Normal 14.0-50.0 [facility] Comment on above: Order Comment: Order Added by Discern Expert. Performed By: #### 2 407326, 9297129, 9158025, 1047588, 6307381, 40165268 ####[address] [address] Lymphocytes/Leukocy ambrosio Auto (Bld) [Pure # fraction] 1.8 E9/L Normal 1.0-4.0 [facility] Comment on above: Order Comment: Order Added by Discern Expert. Performed By: #### 2 516395, 8193994, 6641149, 2011118, 3669511, 33333059 ####[facility] [address] [place] [address] Monocytes/100 WBC (Bld) 7.8 % Normal 4.0-14.0 [facility] Comment on above: Order Comment: Order Added by Discern Expert. Performed By: #### 2 190287, 7706231, 8709262, 5401026, 5261779, 78863595 ####[address] [place] [address] Monocytes/Leukocyte s Auto (Bld) [Pure # fraction] 0.4 E9/L Normal 0.2-1.0 [facility] Comment on above: Order Comment: Order Added by Discern Expert. Performed By: #### 2 173493, 9871146, 5316220, 1503206, 0233409, 24441487 ####[address] [place] [address] Neutrophils/100 WBC (Bld) 54.9 % Normal 36.0-75.0 [facility] Comment on above: Order Comment: Order Added by Discern Expert. Performed By: #### 2 254327, 8400279, 0231950, 8117445, 5522914, 00202107 ####[address] [place] [address] Neutrophils/Leukocy ambrosio Auto (Bld) [Pure # fraction] 3.1 E9/L Normal 2.0-7.5 [facility] Comment on above: Order Comment: Order Added by Discern Expert. Performed By: #### 2 312203, 8982055, 8655083, 2092414, 8830633, 44898821 ####[address] [place] [address] CBC w/ Auto Diffon 3 Erythrocyte distribution width (RBC) [Ratio] 12.9 % Normal 10.9-14.2 [facility] Comment on above: Performed By: #### 2 474747, 4455954, 6618557, 6771528, 3969805, 95812467 #### [facility] [address] [place] [address] Hematocrit (Bld) [Volume fraction] 34.9 % Normal 34.0-46.0 [facility] Comment on above: Performed By: #### 2 089531, 6284041, 3429667, 8553854, 5468528, 04560395 #### [facility] [address] [place], [place] [address] Hemoglobin (Bld) [Mass/Vol] 11.8 g/dL Low 12.0-16.0 [facility] Comment on above: Performed By: #### 2 915920, 4801675, 7850182, 4025128, 1689706, 51862962 #### [facility] [address] [place] [address] MCH (RBC) [Entitic mass] 32.6 pg Normal 27.0-34.0 [facility] Comment on above: Performed By: #### 2 032953, 3197790, 8733081, 8080320, 9035620, 32663815 #### [facility] [address] [place] [address] MCHC (RBC) [Mass/Vol] 33.9 g/dL Normal 31.4-36.0 [facility] Comment on above: Performed By: #### 2 992883, 0577357, 5839471, 3248609, 1741095, 16666968 #### [facility] [address] [place], [place] [address] MCV (RBC) [Entitic vol] 96.3 fL Normal 80.0-100.0 [facility] Comment on above: Performed By: #### 2 060933, 2484020, 9971706, 9441046, 3793310, 67769410 #### [facility] [address] [place] [address] Platelet mean volume (Bld) [Entitic vol] 8.2 fL Normal 6.4-10.8 [facility] Comment on above: Performed By: #### 2 985894, 2844511, 2056251, 3373772, 2467705, 50824044 #### [facility] [address] [place] [address] Platelets (Bld) [#/Vol] 275.0 E9/L Normal 150.0-500.0 [facility] Comment on above: Performed By: #### 2 478279, 4519108, 9461687, 8811274, 3882542, 40740316 #### [facility] [address] [address] RBC (Bld) [#/Vol] 3.6 E12/L Low 4.3-5.9 [facility] Comment on above: Performed By: #### 2 479693, 1224024, 2744957, 6584737, 7597978, 53394246 #### [facility] [address] [place] [address] WBC corrected for nucl RBC Auto (Bld) [#/Vol] 5.6 E9/L Normal 4.0-11.0 [facility] Comment on above: Performed By: #### 2 994872, 6788440, 3216456, 2167963, 8686833, 56669634 #### [facility] [address] [place] [address] CHEMISTRYOrdered By: SYSTEM SYSTEM on 05-11-2023 Albumin [...] rate/Area] 44 mL/min/1.73 m2 Low >=59mL/min/1.73 m2 [facility] Chem S Globulin (S) [Mass/Vol] 3.2 g/dL Normal 1.4 - 4.0 gm/dL FT Remisol Glucose [Mass/Vol] 93 mg/dL Normal 55 - 199 mg/dL FT Remisol Lipase [Catalytic activity/Vol] 46 U/L Normal 13 - 58 unit/L [facility] Potassium [Moles/Vol] 4.3 mmol/L Normal 3.5 - 5.3 mmol/L FT Remisol Protein [Mass/Vol] 7.5 g/dL Normal 6.0 - 7.8 gm/dL F [facility] [place]isol Sodium [Moles/Vol] 141 mmol/L Normal 135 - 145 mmol/L FT [facility]isol Urea nitrogen [Mass/Vol] 21 mg/dL Normal 5 - 21 mg/dL FT [facility] Urea nitrogen/Creatinine [Mass ratio] 16 mg/mg Normal 10 - 20 FT [facility]isol CMPon 05-11-2023 Albumin [Mass/Vol] 4.3 g/dL Normal 3.3-5.0 [facility] Comment on above: Performed By: #### 2 678712, 8796470, 6036162, 8959382, 7785400, 24739559 ####[facility] [address] [place] [address] Albumin/Globulin (S) [Mass conc ratio] 1.3 Normal 1.1-2.2 [facility] Comment on above: Performed By: #### 2 080546, 6436013, 3805636, 7950726, 3267388, 02159099 ####[facility] [address] [place] [address] ALP [Catalytic activity/Vol] 46 Int._Unit/L Normal 21-98 [facility] Comment on above: Performed By: #### 2 162093, 5575001, 5746893, 3001102, 5159835, 81064860 ####[facility] [address] [place] [address] ALT No additional P-5'-P [Catalytic activity/Vol] 16 Int._Unit/L Normal 6-46 [facility] Comment on above: Performed By: #### 2 848013, 8177395, 9951713, 2619989, 3522888, 70112484 ####[facility] [address] [place] [address] Anion gap [Moles/Vol] 10 mmol/L Normal 6-16 [facility] Comment on above: Performed By: #### 2 433323, 7340297, 0520096, 5339161, 1110639, 09102574 ####[facility] [address] [place] [address] AST [Catalytic activity/Vol] 23 Int._Unit/L Normal 5-43 [facility] Comment on above: Performed By: #### 2 813764, 8778863, 4776444, 0357855, 4600469, 46015752 ####[facility] [address] [place] [address] Bilirubin [Mass/Vol] 0.6 mg/dL Normal 0.0-1.1 [facility] Comment on above: Performed By: #### 2 571951, 8592986, 1951041, 1991064, 3670927, 67015053 ####[facility] [address] [place] [address] Calcium [Mass/Vol] 9.5 mg/dL Normal 8.9-11.1 [facility] Comment on above: Performed By: #### 2 427483, 4888858, 0114187, 4780943, 5221854, 93646162 ####[facility] [address] [place] [address] Chloride [Moles/Vol] 108 mmol/L Normal 101-111 [facility] Comment on above: Performed By: #### 2 412345, 7993807, 4884963, 1656039, 7946797, 81358671 ####[facility] [address] [place] [address] CO2 [Moles/Vol] 27 mmol/L Normal 21-31 [facility] Comment on above: Performed By: #### 2 718449, 5755231, 1483316, 9117818, 1646391, 33711738 ####[facility] [address] [place] [address] Creatinine [Mass/Vol] 1.3 mg/dL Normal 0.5-1.3 [facility] Comment on above: Performed By: #### 2 172072, 8990043, 8251569, 7534947, 4121448, 29408863 ####[facility] [address] [place] [address] Globulin (S) [Mass/Vol] 3.2 g/dL Normal 1.4-4.0 [facility] Comment on above: Performed By: #### 2 869817, 0025940, 3786466, 4989136, 5703881, 19453391 ####[facility] [address] [place] [address] Glucose [Mass/Vol] 93 mg/dL Normal 55-199 [facility] Comment on above: Result Comment: If t his glucose result represents a fasting glucose, interpretation should refer to the following reference range: 55-99 mg/dL Performed By: #### 2 424949, 3860471, 5750143, 1870615, 8517878, 77520549 ####[facility] [address] [place] [address] Potassium [Moles/Vol] 4.3 mmol/L Normal 3.5-5.3 [facility] Comment on above: Performed By: #### 2 324696, 8064467, 8368271, 6919517, 3878019, 92408245 ####[facility] [address] [place] [address] Protein [Mass/Vol] 7.5 g/dL Normal 6.0-7.8 [facility] Comment on above: Performed By: #### 2 769684, 8046463, 5554975, 9894634, 0922516, 61538670 ####[facility] [address] [place] [address] Sodium [Moles/Vol] 141 mmol/L Normal 135-145 [facility] Comment on above: Performed By: #### 2 408808, 7355590, 8459544, 0560068, 0650452, 55655058 ####[facility] [address] [place] [address] Urea nitrogen [Mass/Vol] 21 mg/dL Normal 5-21 [facility] Comment on above: Performed By: #### 2 195184, 7608216, 2137685, 4521088, 0790555, 14077799 ####[facility] [address] [place] [address] Urea nitrogen/Creatinine [Mass ratio] 16 No Units Normal 10-20 [facility] Comment on above: Performed By: #### 2 595940, 8845206, 1027022, 3982922, 1537227, 17041509 ####[facility] [address] [place] [address] Family Medicine Office/Clini c [place] 05-11-2023 Family [...] BID, # 180 tab(s), Refills(s) 0, Pharmacy: [facility] [id number], 162, cm, 05/11/23 9:36:00 EDT, Height/Length Dosing, [...] BID, # 180 tab(s), Refills(s) 0, Pharmacy: [facility] [id number], 162, cm, 05/11/23 9:36:00 EDT, Height/Length Dosing, [...] BID, # 180 tab(s), Refills(s) 0, Pharmacy: [facility] [id number], 162, cm, 05/11/23 9:36:00 EDT, Height/Length Dosing, 74.9, kg, 05/11/23 9:36:00 EDT, Weight Dosing Amylase Level CBC w/ Auto Diff Comprehensive Metabolic Panel Lipase Level UA With Cult Reflex 5. Non-smoker (Z78.9: Other specified health status) continue not smoking Ordered: losartan, 25 mg = 1 tab(s), Oral, BID, # 180 tab(s), Refills(s) 0, Pharmacy: [facility] [id number], 162, cm, 05/11/23 9:36:00 EDT, Height/Length Dosing, [...] Instructions Allergies (more content not included)... Normal [facility] Comment on above: Result Comment: [...] 3.1 E9/L Normal 2.0 - 7.5 E9/L [facility] HemeAutoSS HEMATOLOGYOrdered By: Nato Cheung on 05-11-2023 Erythrocyte distribution width (RBC) [Ratio] 12.9 % Normal 10.9 - 14.2 % FT HemeAutoSS Hematocrit (Bld) [Volume fraction] 34.9 % Normal 34.0 - 46.0 % [facility] HemeAutoSS Hemoglobin (Bld) [Mass/Vol] 11.8 g/dL Low 12.0 - 16.0 gm/dL FT HemeAutoSS MCH (RBC) [Entitic mass] 32.6 pg Normal 27.0 - 34.0 pg [facility] HemeAutoSS MCHC (RBC) [Mass/Vol] 33.9 g/dL Normal 31.4 - 36.0 gm/dL [facility] HemeAutoSS MCV (RBC) [Entitic vol] 96.3 fL Normal 80.0 - 100.0 fL [facility] HemeAutoSS Platelet mean volume (Bld) [Entitic vol] 8.2 fL Normal 6.4 - 10.8 fL [facility] HemeAutoSS Platelets (Bld) [#/Vol] 275.0 E9/L Normal 150.0 - 500.0 E9/L [facility] HemeAutoSS RBC (Bld) [#/Vol] 3.6 E12/L Low 4.3 - 5.9 E12/L [facility] HemeAutoSS WBC corrected for nucl RBC Auto (Bld) [#/Vol] 5.6 E9/L Normal 4.0 - 11.0 E9/L [facility] HemeAutoSS Lipase Levelon 05-11-2023 Lipase [Catalytic activity/Vol] 46 U/L Normal 13-58 [facility] Comment on above: Performed By: #### 2 142718, 5913450, 0648997, 5641451, 6748101, 37058829 ####[facility] [address] [place] [address] UA With Cult Reflexon 2022 Bacteria LM Ql (Urine sed) TRACE Normal Trace [facility] Comment on above: Performed By: #### 2 973079, 00386051 ####[facility] [address] [place] [address] Bilirubin Ql (U) Negative Normal Negative [facility] Comment on above: Performed By: #### 2 364901, 71943610 ####[facility] [address] [place] [address] Clarity (U) CLEAR Normal Clear [facility] Comment on above: Performed By: #### 2 278720, 04764044 ####[facility] [address] [place] [address] Color (U) YELLOW Normal Yellow [facility] Comment on above: Performed By: #### 2 233940, 01287373 ####[facility] [address] [place] [address] Crystals LM Ql (Urine sed) Present Normal [facility] Comment on above: Performed By: #### 2 801650, 02078474 ####[address] [address] Epithelial cells.squamous LM.HPF (Urine sed) [#/Area] 5-8 Normal 0-2 [facility] Comment on above: Performed By: #### 2 310562, 42577420 ####[facility] [address] [place] [address] Glucose Test strip (U) [Mass/Vol] Negative Normal Negative [facility] Comment on above: Performed By: #### 2 199517, 89445571 ####[facility] [address] [place] [address] Hemoglobin Ql (U) TRACE Abnormal Negative [facility] Comment on above: Performed By: #### 2 856551, 42518175 ####[facility] [address] [place] [address] Ketones (U) [Mass/Vol] Negative Normal Negative [facility] Comment on above: Performed By: #### 2 170236, 55420117 ####[facility] [address] [place] [address] [place]sah.plasma/Lith ium.RBC (Bld) [Mass ratio] 0-3 Normal 0-3 [facility] Comment on above: Performed By: #### 2 186313, 59585522 ####[facility] [address] [place] [address] Mucus Ql (Urine sed) 2+ Normal [facility] Comment on above: Performed By: #### 2 443150, 21574410 ####[facility] [address] [place] [address] Nitrite Ql (U) Negative Normal Negative [facility] Comment on above: Performed By: #### 2 043452, 33299117 ####[facility] [address] [place] [address] pH (U) 7.0 [pH] Invalid Interpretation Code 5.0-9.0 [facility] Comment on above: Performed By: #### 2 427716, 40742850 ####[address] [address] Protein (U) [Mass/Vol] Negative Normal Negative [facility] Comment on above: Performed By: #### 2 047255, 75117366 ####[address] [address] Specific gravity (U) [Rel density] 1.010 Invalid Interpretation Code 1.005-1.030 [facility] Comment on above: Performed By: #### 2 922380, 05450728 ####[address] [address] Type of Urine collection method Clean Catch Normal [facility] Comment on above: Performed By: #### 2 663338, 37215697 ####[facility] [address] [place] [address] Urobilinogen Qn (U) 0.2 {Leon'U}/dL Normal 0.0-1.0 [facility] Comment on above: Performed By: #### 2 032083, 88095894 ####[facility] [address] [place] [address] WBC Auto Ql (U) 1+ Abnormal Negative [facility] Comment on above: Performed By: #### 2 931405, 32084413 ####[facility] [address] [place] [address] WBC LM.HPF (Urine sed) [#/Area] 0-5 Normal 0-5 [facility] Comment on above: Performed By: #### 2 623118, 22452542 ####[facility] [address] [place] [address] URINALYSISOrdered By: Dinah murray on 05-11-2023 Bacteria [...] PM) Normal Negative [facility] UA Auto SS [place].plasma/Lith ium.RBC (Bld) [Mass ratio] 0-3 /HPF Normal [...] PM) Invalid Interpretation Code 1.005 - 1.030 [facility] UA Auto SS UA Spec Desc Clean Catch (05/11/23 12:05 PM) Normal [facility] UA Auto SS Urobilinogen Qn (U) 0.7752143 {Leon'U}/dL Normal 0.0 - 1.0 EU/dL [facility] UA Auto SS WBC Auto Ql (U) 1+ *ABN* (05/11/23 12:05 PM) Invalid Interpretation Code Negative [facility] UA Auto SS WBC LM.HPF (Urine sed) [#/Area] 0-5 /HPF Normal 0-5/HPF [facility] UA Auto SS eGFRon 05-11-2023 GFR/1.73 sq M.predicted among non-blacks MDRD (S/P/Bld) [Vol rate/Area] 44 mL/min/1.73 m2 Low >=59 [facility] Comment on above: Order Comment: Order added by Discern Expert. Result Comment: Senior Officer sommer kidney disease could be indicated at eGFR's of less than 60 mL/min/1.73m2. Kidney failure is indicated at less than 15 mL/min/1.73m2. Performed By: #### 2 192385, 5037725, 2861569, 8897241, 4633765, 83661409 ####[facility] [address] [place] [address] CULTURE URINEon 07-06-2022 CULTURE URINE Culture Observations : LIGHT GROWTH OF MIXED GENITAL NAN. NO POTENTIAL PATHOGENS SEEN. Normal [facility] Comment on above: Performed By: #### U RCX #### [facility] [address] [address] [address] Melchor Brock UA (CLEAN/CATCH) MICROSCOPIC IF INDICATEon 07-06-2022 Bilirubin Ql (U) Negative Normal NEGATIVE [facility] Comment on above: Performed By: #### U MICRO, UARMICR #### [facility] [address] [place] [address] Dr. Melchor Brock Clarity (U) CLEAR Normal CLEAR [facility] Comment on above: Performed By: #### U MICRO, UARMICR #### [facility] [address] [address] [address] Melchor Brock Color (U) LT. YELLOW Normal YELLOW [facility] Comment on above: Performed By: #### U MICRO, UARMICR #### [facility] [address] [address] [address] Melchor Brock Glucose Ql (U) Negative Normal NEGATIVE [facility] Comment on above: Performed By: #### U MICRO, UARMICR #### [facility] [address] [place] [address] Dr. Melchor Brock Hemoglobin Ql (U) TRACE-INTACT Abnormal NEGATIVE [facility] Comment on above: Performed By: #### U MICRO, UARMICR #### [facility] [address] [place] [address] Dr. Melchor Brock Ketones Ql (U) Negative Normal NEGATIVE [facility] Comment on above: Performed By: #### U MICRO, UARMICR #### [facility] [address] [place] [address] Dr. Melchor Brock LEUKOCYTES TRACE Abnormal NEGATIVE [facility] Comment on above: Performed By: #### U MICRO, UARMICR #### [facility] [address] [place] [address] Dr. Melchor Brock Nitrite Ql (U) Negative Normal NEGATIVE [facility] Comment on above: Performed By: #### U MICRO, UARMICR #### [facility] [address] [address] [address] Melchor Brock pH (U) 6.0 [pH] Normal 5-[address] [facility] Comment on above: Performed By: #### U MICRO, UARMICR #### [facility] [address] [address] [address] Melchor Brock SPEC GRAVITY 1.020 Normal 1.005-<=1.[address] [facility] Comment on above: Performed By: #### U MICRO, UARMICR #### [facility] [address] [place] [address] Dr. Melchor Brock UA PROTEIN Negative Normal NEGATIVE/ TRACE [facility] Comment on above: Performed By: #### U MICRO, UARMICR #### [facility] [address] [address] [address] Melchor Brock UR MICRO IND INDICATED Normal [facility] Comment on above: Performed By: #### U MICRO, UARMICR #### [facility] [address] [address] [address] Melchor Brock Urobilinogen Qn (U) 0.2 {Leon'U}/dL Normal 0.2 - 1. 0 [facility] [facility] Comment on above: Performed By: #### U MICRO, UARMICR #### [facility] [address] [address] [address] Melchor Brock URINE MICROSCOPIC ONLYon BACTERIA NONE SEEN Normal NONE SEEN [facility] Comment on above: Performed By: #### G SHON, LIPID #### [facility] [address] [place] [address] Dr. Melcohr Brock Bacteria identified Cx Nom (U) CX ALREADY ORDERED Normal [facility] Comment on above: Performed By: #### G SHON, LIPID #### [facility] [address] [place] [address] Dr. Melchor Brock CAST NONE SEEN Normal NONE SEEN The [facility] Comment on above: Performed By: #### G SHON, LIPID #### [facility] [address] [place] [address] Dr. Melchor Brock Crystals LM Nom (Urine sed) NONE SEEN Normal NONE SEEN [facility] Comment on above: Performed By: #### G SHON, LIPID #### [facility] [address] [place] [address] Dr. Melchor Brock Epithelial cells LM Ql (Urine sed) RARE Normal NONE SEEN /RARE [facility] Comment on above: Performed By: #### G SHON, LIPID #### [facility] [address] [place] [address] Dr. Melchor Brock MUCOUS NONE SEEN Normal NONE SEEN The [facility] Comment on above: Performed By: #### G SHON, LIPID #### [facility] [address] [place] [address] Dr. Melchor Brock RBC 0-2 Normal 0-2 [facility] Comment on above: Performed By: #### G SHON, LIPID #### [facility] [address] [address] [address] Melchor Brock WBC 0-2 Abnormal NONE SEEN The [facility] Comment on above: Performed By: #### G SHON, LIPID #### [facility] [address] [address] [address] Melchor Brock MG MAMM SCREEN 3D SARAHI CADon 03-15-2022 MG MAMM SCREEN 3D SARAHI CAD Patient: ISAURA HAYDEN Exam Date: 03/15/2022 : 1950 Gender:F Ordering : DR FARA BOOKER . Admission #: [id number] Family : Order #: [id number] CLICK HERE TO VIEW EXAM RADIOLOGY REPORT [...] lung cancer at age 72. LOCATION: [facility] BREAST COMPOSITION: Heterogeneously dense,which may obscure [...] M.D. on 03/15/2022 at 11:[address] [facility] GLUCOSE BLOODon 02-09-2022 Glucose [Mass/Vol] 99 mg/dL Normal 74-[address] [facility] Comment on above: Performed By: #### G SHON, LIPID #### [facility] [address] [address] [address] Melchor Brock LIPID PROFILEon 02-09-2022 CHOL-HDL RATIO NORM SEE BELOW Normal [facility] Comment on above: Result Comment: 3.3 - 4.4 LOW RISK 4.4 - 7.1 AVERAGE RISK 7.1 - 11.0 MODERATE RISK >11.0 HIGH RISK Performed By: #### G SHON, LIPID #### [facility] [address] [address] [address] Melchor Brock Cholesterol [Mass/Vol] 202 mg/dL Critically high <=200 [facility] Comment on above: Performed By: #### G SHON, LIPID #### [facility] [address] [address] [address] Melchor Brock Cholesterol in HDL [Mass/Vol] 56 mg/dL Normal 40-60 [facility] Comment on above: Performed By: #### G SHON, LIPID #### [facility] [address] [address] [address] Melchor Brock Cholesterol in LDL [Mass/Vol] 112.6 mg/dL Normal [facility] Comment on above: Performed By: #### G SHON, LIPID #### [facility] [address] [address] [address] Melchor Brock Cholesterol.total/C holesterol in HDL [Mass ratio] 3.6 {ratio} Normal [facility] Comment on above: Performed By: #### G SHON, LIPID #### [facility] [address] [address] [address] Melchor Brock HDL NORMAL > or = 60 mg/dl - LO W CARDIOVASCULAR RISK <40 mg/dl - HIGH CARDIOVASCULAR RISK Normal [facility] Comment on above: Performed By: #### G SHON, LIPID #### [facility] [address] [address] [address] Melchor Brock LDL CALC NORMAL SEE BELOW Normal [facility] Comment on above: Result Comment: <100 mg/dl OPTIMAL 100 - 129 mg/dl NEAR OR ABOVE OPTIMAL 130 - 159 mg/dl BORDERLINE HIGH 160 - 189 mg/dl HIGH >190 mg/dl VERY HIGH Performed By: #### G SHON, LIPID #### [facility] [address] [address] [address] Melchor Brock Triglyceride [Mass/Vol] 167 mg/dL Critically high <=150 [facility] Comment on above: Performed By: #### G SHON, LIPID #### [facility] [address] [address] [address] Melchor Brock VLDL CALC 33.4 mg/dL Normal [facility] Comment on above: Performed By: #### G SHON, LIPID #### [facility] [address] [address] [address] Melchor Brock LIPID PROFILEon 11-05-2021 CHOL-HDL RATIO NORM SEE BELOW Normal [facility] Comment on above: Result Comment: 3.3 - 4.4 LOW RISK 4.4 - 7.1 AVERAGE RISK 7.1 - 11.0 MODERATE RISK >11.0 HIGH RISK Performed By: #### L IPID, BMP #### [facility] [address] [address] [address] Melchor Brock Cholesterol [Mass/Vol] 244 mg/dL Critically high <=200 [facility] Comment on above: Performed By: #### L IPID, BMP #### [facility] [address] [address] [address] Melchor Brock Cholesterol in HDL [Mass/Vol] 60 mg/dL Normal 40-60 [facility] Comment on above: Performed By: #### L IPID, BMP #### [facility] [address] [address] [address] Melchor Brock Cholesterol in LDL [Mass/Vol] 158.4 mg/dL Normal [facility] Comment on above: Performed By: #### L IPID, BMP #### [facility] [address] [address] [address] Melchor Brock Cholesterol.total/C holesterol in HDL [Mass ratio] 4.1 {ratio} Normal [facility] Comment on above: Performed By: #### L IPID, BMP #### [facility] [address] [address] [address] Melchor Brock HDL NORMAL > or = 60 mg/dl - LO W CARDIOVASCULAR RISK <40 mg/dl - HIGH CARDIOVASCULAR RISK Normal [facility] Comment on above: Performed By: #### L IPID, BMP #### [facility] [address] [place] [address] Dr. Melchor Brock LDL CALC NORMAL SEE BELOW Normal [facility] Comment on above: Result Comment: <100 mg/dl OPTIMAL 100 - 129 mg/dl NEAR OR ABOVE OPTIMAL 130 - 159 mg/dl BORDERLINE HIGH 160 - 189 mg/dl HIGH >190 mg/dl VERY HIGH Performed By: #### L IPID, BMP #### [facility] [address] [place] [address] Dr. Melchor Brock Triglyceride [Mass/Vol] 128 mg/dL Normal <=150 [facility] Comment on above: Performed By: #### L IPID, BMP #### [facility] [address] [place] [address] Dr. Melchor Brock VLDL CALC 25.6 mg/dL Normal [facility] Comment on above: Performed By: #### L IPID, BMP #### [facility] [address] [place] [address] Dr. Melchor Brock PROF CHEM 8 (BAS METB)on Anion gap [Moles/Vol] 10.7 mmol/L Normal [facility] Comment on above: Performed By: #### L IPID, BMP #### [facility] [address] [place] [address] Dr. Melchor Brock Calcium [Mass/Vol] 7.8 mg/dL Critically low 8.4-10.2 [facility] Comment on above: Performed By: #### L IPID, BMP #### [facility] [address] [place] [address] Dr. Melchor Brock Chloride [Moles/Vol] 103 mmol/L Normal 98-107 [facility] Comment on above: Performed By: #### L IPID, BMP #### [facility] [address] [place] [address] Dr. Melchor Brock CO2 [Moles/Vol] 28.4 mmol/L Normal 22.0-30.0 [facility] Comment on above: Performed By: #### L IPID, BMP #### [facility] [address] [address] [address] Melchor Brock Creatinine [Mass/Vol] 1.05 mg/dL Critically high 0.52-1.04 [facility] Comment on above: Performed By: #### L IPID, BMP #### [facility] [address] [address] [address] Melchor Brock EGFR-AF ALBANIAN >60 Normal >=60 [facility] Comment on above: Performed By: #### L IPID, BMP #### [facility] [address] [address] [address] Melchor Brock EGFR-NON AF ALBANIAN 52 mL/min/1.73m2 Critically low >=60 [facility] Comment on above: Performed By: #### L IPID, BMP #### [facility] [address] [address] [address] Melchor Brock Glucose [Mass/Vol] 98 mg/dL Normal 74-106 [facility] Comment on above: Performed By: #### L IPID, BMP #### [facility] [address] [address] [address] Melchor Brock Potassium [Moles/Vol] 4.1 mmol/L Normal 3.4-5.0 [facility] Comment on above: Performed By: #### L IPID, BMP #### [facility] [address] [address] [address] Melchor Brock Sodium [Moles/Vol] 138 mmol/L Normal 137-[address] [facility] Comment on above: Performed By: #### L IPID, BMP #### [facility] [address] [address] [address] Melchor Brock Urea nitrogen [Mass/Vol] 15.0 mg/dL Normal 7.0-17.0 [facility] Comment on above: Performed By: #### L IPID, BMP #### [facility] [address] [address] [address] Melchor Brock Urea nitrogen/Creatinine [Mass ratio] 14.3 mg/mg Normal [facility] Comment on above: Performed By: #### L IPID, BMP #### [facility] [address] [address] [address] Melchor Brock ECHOCARDIO M/2D COMPLETEon 0 10-05-2021 ECHOCARDIO M/2D COMPLETE Patient: ISAURA HAYDEN Exam Date: 10/05/2021 : 1950 Gender:F Ordering : DR ANJELICA GAMBINO . Admission #: [id number] Family : Order #: [id number] CLICK HERE TO VIEW EXAM ECHOCARDIOGRAM REPORT [...] Area(A4C): 20.70 cm2 Left Atrium Systolic Volume(A2C): 77170 mm3 Left Atrium Systolic Volume(A4C): 65184 mm3 Mitral Valve MV E to A Ratio: 1.10 Deceleration [place]: 7410 mm/s2 Mitral Valve A-Wave Peak Velocity: [...] Coy Dove M.D. on 10/06/2021 at 08:32 [facility] XR DEXA BONE DENSITYon 09-18 XR [...] by: KVNG TILLMAN Date: 2021-09-18 10:56 Normal [facility] DEXA BONE DENSITY AXIAL SKEL ETONon 09-12-2017 [...] by:ARLEY Valenciaigned by:Lora Mondragon MD09/12/18Final result Normal [facility] DIGITAL SCREEN BILATERAL on 09-12-2017 [facility] DIGITAL SCREEN BILATERAL REPORT: BILATERAL [...] by:ARLEY Valenciaigned by:Lora Mondragon MD09/12/18Final result Normal [facility] Vital Signs Date Time Vital Sign Value Performing Clinician Facility 11-07-2023 10:32-0400 Body height 162.[address] 11-07-2023 10:32-0400 Body mass index (BMI) [Ratio] 28.15 kg/m2 [address] 11-07-2023 10:32-0400 Body weight 74.[address] 10-26-2023 14:38-0500 Body temperature 98.29 [degF] Nabil Leon MD Work Phone: [facility] 10-26-2023 14:38-0500 Diastolic blood pressure 90 mm[Hg] Nabil Leon MD Work Phone: [facility] 10-26-2023 14:38-0500 Heart rate 67 /min Nabil Leon MD Work Phone: [facility] 10-26-2023 14:38-0500 SaO2% (BldA) [Mass fraction] 98 % Nabil Leon MD Work Phone: [facility] 10-26-2023 14:38-0500 Systolic blood pressure 158 mm[Hg] Nabil Leon MD Work Phone: [facility] 10-26-2023 14:35-0500 Body mass index (BMI) [Ratio] 29.18 kg/m2 Nabil Leon MD Work Phone: [facility] 10-26-2023 14:35-0500 Body weight 77.11 kg Nabil Leon MD Work Phone: [facility] Encounters Encounter Date Encounter Type Care Provider Facility Start: 05-07-2024 End: 05-07-2024 ambulatory Anamaria Chinchilla Facility:[facility] Start: 12-27-2023 End: 12-27-2023 ambulatory [facility] Start: 11-29-2023 End: 11-29-2023 ambulatory [facility] Start: 11-14-2023 End: 11-14-2023 Evaluation and management of inpatient [facility] Start: 11-14-2023 End: 11-14-2023 Evaluation and management of inpatient NABIL Tobi [facility] Start: 11-09-2023 Encounter for other preprocedural examination [facility] Start: 11-09-2023 End: 11-10-2023 ambulatory [facility] Start: 11-07-2023 End: 11-07-2023 Evaluation and management of inpatient SUMMIT Rubio [facility] Start: 11-07-2023 End: 11-07-2023 Admission to [facility] Pat Phone Call Provider 2 Nash Vazquez [facility] Start: 10-28-2023 Patient encounter status Nabil Leon MD Work Phone: [facility] Start: 10-28-2023 Telephone encounter Nabil andersen MD Work Phone: [facility] Start: 10-26-2023 End: 10-26-2023 ambulatory NBAIL LEON [facility] Start: 10-26-2023 End: 10-26-2023 Office outpatient new 60 minutes Nabil Leon MD Work Phone: [facility] Comment on above: Endometrial thickeni ng on ultrasound (Primary Dx); Postmenopausal bleeding Start: 10-19-2023 ambulatory SUMMIT Rubio [facility] Start: 10-19-2023 Telephone encounter Linette Ga RN [facility] Start: 10-11-2023 End: 10-11-2023 ambulatory ARIEL CITLALY Not Available Start: 09-01-2023 End: 09-01-2023 ambulatory VIPUL OBANDO Facility: [facility] Start: 08-25-2023 End: 08-25-2023 ambulatory NETO HERBERT Not Available Start: 08-11-2023 End: 08-11-2023 ambulatory Anamaria Chinchilla Facility:[facility] Start: 07-27-2023 End: 07-27-2023 ambulatory ARIEL CITLALY Not Available Start: 06-13-2023 End: 06-13-2023 ambulatory Anamaria Chinchilla Facility:[facility] Start: 05-30-2023 End: 05-30-2023 ambulatory Anamaria Chinchilla Facility: [facility] Start: 05-30-2023 End: 05-30-2023 ambulatory Anamaria Chinchilla Facility: [facility] Start: 05-11-2023 End: 05-11-2023 Lab Drop off Violet Lauren [facility] Start: 05-11-2023 End: 05-11-2023 ambulatory Violet Lauren Facility:[facility] Start: 08-03-2022 End: 08-04-[address] ANJELICA [...] Facility:[facility] Start: 09-12-2017 End: 09-13-2017 Ambulatory FARA BOOKER [facility] Procedures Date Procedure Procedure Detail Performing Clinician Start: 11-29-2023 Follow-up visit Follow-up DEMETRIS PENNINGTON Start: 09-12-2017 Screening mammograph y bi 2-view breast inc cad FARA BOOKER Start: 09-12-2017 Dxa bone density jeanne dy 1/> sites axial skel FARA BOOKER Cholecystectomy Violet Lauren Comment on above: bile duct surgery Colonoscopy Violet Lauren Comment on above: 2012 normal Laser device (physic al object) Violet Lauren Comment on above: eye Plan of Treatment Date Care Activity Detail Author Start: 10-25-2024 Adult BMI Screening Adult BMI Screen ing [facility] Start: 10-25-2024 Tobacco Screening Tobacco Screening [facility] Start: 07-30-2024 ambulatory Ambulatory Facility:[facility] Start: 11-29-2023 End: 11-29-2023 Patient encounter procedure 11/29/2023 10:30 AM EDT Office Visit Lurdes Mckenzie [facility] [address] [place] [address] Mary Pennington PA [address] [place], [place] [id number] Lurdes Mckenzie [facility] Start: 11-14-2023 End: 11-14-2023 Admission to same day surgery center 11/14/2023 11:00 AM EDT - 11/14/2023 1:00 PM EDT Surgery [facility] [address] [place] [phone] [place] [address] [place] [address], [address] [place] [id number] DAVINCI HYSTERECTOMY SALPINGO OOPHORECTOMY(WITH FROZEN SECTION AND POSSIBLE STAGING) [facility] Comment on above: DAVINCI HYSTERECTOMY SALPINGO OOPHORECTOMY(WITH FROZEN SECTION AND POSSIBLE STAGING) Start: 11-14-2023 End: 11-14-2023 DAVINCI HYSTERECTOMY SALPINGO OOPHORECTOMY DAVINCI HYSTERECTOMY SALPINGO OOPHORECTOMY THICKENED ENDOMETRUM/POST MENOPAUSAL BLEEDING/CERVICAL STENOSIS 11/14/2023 11:00 AM EDT [facility] Start: 11-14-2023 Subsequent hospital visit by physician 11/14/2023 11:00 AM EDT Hospital Encounter [facility] [address] [place] [phone] [place] [address] [place] [address], [address] [place], [place] [phone] [facility] Start: 11-07-2023 End: 11-07-[address] [facility] 11/07/2023 10:30 AM EDT Support Visit [facility] [id number] [place] [address] [place] [address] [facility] Start: 10-28-2023 End: 10-27-2024 XR Chest PA and Lateral X-ray chest 2 views Imaging Routine Preop testing Expected: 10/28/2023, Expires: 10/27/2024 [facility] Comment on above: Expected: 10/28/2023 , Expires: 10/27/2024 Start: 10-26-2023 End: 10-26-2023 Patient encounter procedure 10/26/2023 3:00 PM EST [facility] [address] [place] [address] [address] [place] [address] Nabil Leon MD [address] [place] [address], [address] [place] [address] [facility] Start: 04-22-2023 Influenza vaccination Influenza Vacc ine [facility] Start: 08-04-2022 Adult BMI Screening Adult BMI Screen ing [facility] Start: 2017 Fall Risk Screening Fall Risk Screen ing [facility] Start: 2002 Administration of varicella zoster vaccine Zoster (Shingles) Vaccine (1 of 2) [facility] Start: 1971 DTaP,Tdap and Td Vaccines (1 - Tdap) DTaP,Tdap and Td Vaccines (1 - Tdap) [facility] Start: 1970 Adult BMI Follow Up Plan Adult BMI Follow Up Plan [facility] Start: 1964 Depression Screening Depression Scre ening [facility] Start: 1964 Tobacco Screening Tobacco Screening [facility] Start: 1952 Medicare Annual Well ness Visit Medicare Annual Wellness Visit [facility] End: 10-27-2024 CBC W Auto Differential panel - Blood CBC with auto diff Lab Routine Preop testing 1 Occurrences starting 10/28/2023 until 10/27/2024 [facility] Comment on above: 1 Occurrences starti ng 10/28/2023 until 10/27/2024 End: 10-27-2024 Comprehensive metabolic 2000 panel - Serum or Plasma Comprehensive metabolic panel Lab Routine Preop testing 1 Occurrences starting 10/28/2023 until 10/27/2024 [employer] Comment on above: 1 Occurrences starti ng 10/28/2023 until 10/27/2024 End: 10-27-2024 ECG 12 lead ECG 12 lead ECG Routine Preop testing 1 Occurrences starting 10/28/2023 until 10/27/2024 [employer] Comment on above: 1 Occurrences starti ng 10/28/2023 until 10/27/2024 Immunizations Immunization Date Immunization Notes Care Provider [facility] 07-12-2014 influenza virus vaccine, unspecified formulation Linette Ga RN [facility] NEGATED: Highlighted row has not occurred!12-01-2022 SARS-CoV-2 mRNA (tozinameran 5y-11y) vaccine Violet Leonidas [facility] Payers Date Payer Category Payer Medicare [id number] 2017 Unknown [employer] [place] [employer] [id number] 2017-Present [phone] [address] [place] [address] [id number] 2017 Unknown [id number] 2014 Medicare [id number] 1959 Unknown [id number] 1950 Unknown [id number] 2.16.840.1.421582.3.579.2.593 1950 Unknown [id number] 2.16.840.1.046527.3.579.2.593 1950 Unknown [id number] 2.16.840.1.729507.3.579.2.593 1952 Unknown [id number] 2.16.840.1.459067.3.579.2.593 1952 Unknown [id number] 2.16.840.1.266236.3.579.2.593 1952 Unknown [id number] 2.16.840.1.086311.3.579.2.593 1952 Unknown [id number] 2.16.840.1.956123.3.579.2.593 1952 Unknown [id number] 2.16.840.1.889893.3.579.2.593 1952 Unknown [id number] 2.16.840.1.713706.3.579.2.1259 1952 Unknown [id number] 2.16.840.1.950433.3.579.2.1259 1952 Unknown [id number] 2.16.840.1.938530.3.579.2.1259 1952 Unknown [id number] 2.16.840.1.032808.3.579.2.1286 1952 Unknown [id number] 2.16.840.1.143752.3.579.2.1286 1952 Unknown [id number] 2.16.840.1.386629.3.579.2.1286 1952 Unknown [id number] 2.16.840.1.692656.3.579.2.1286 1952 Unknown [id number] 2.16.840.1.686976.3.579.2.1286 1952 Unknown [id number] 2.16.840.1.654139.3.579.2.1286 1952 Unknown [id number] 2.16.840.1.271798.3.579.2.1286 1952 Unknown [id number] 2.16.840.1.316367.3.579.2.1286 1952 Unknown [id number] 2.16.840.1.481034.3.579.2.1286 1952 Unknown [id number] 2.16.840.1.894272.3.579.2.1286 1952 Unknown [id number] 2.16.840.1.911417.3.579.2.1286 1952 Unknown [id number] 2.16.840.1.180692.3.579.2.727 1952 Unknown [id number] 2.16.840.1.986226.3.579.2.727 1952 Unknown [id number] 2.16.840.1.185236.3.579.2.727 1952 Unknown [id number] 2.16.840.1.377605.3.579.2.727 1952 Unknown [id number] 2.16.840.1.800462.3.579.2.727 1952 Unknown [id number] 2.16.840.1.383950.3.579.2.727 1952 Unknown [id number] 2.16.840.1.852460.3.579.2.727 1952 Unknown [id number] 2.16.840.1.228727.3.579.2.727 1952 Unknown [id number] 2.16.840.1.101896.3.579.2.72 1952 Unknown [id number] 2.16.840.1.533554.3.579.2.727 1952 Unknown [id number] 2.16.840.1.205545.3.579.2.727 1950 Unknown [id number] 2.16.840.1.256172.3.579.2.727 Social History Date Type Detail Facility Start: 05-11-2023 End: 11-07-2023 Tobacco smoking status Never smoked tobacco (finding) [facility] Tobacco smoking status Never [facility] Start: 01-12-2018 End: 10-02-2020 Sex Assigned At Female Nnamdi Dia [facility] Start: 01-12-2018 End: 11-07-2023 Tobacco use and exposure Smokeless tobacco non-user [facility] Start: 01-12-2018 End: 11-07-2023 Alcohol intake Current drinker of alcohol (finding) [facility] Start: 01-12-2018 End: 10-02-2020 Alcohol intake [facility] Start: 1950 Sex Assigned At Not on file P [facility] Start: 1950 Sex Assigned At Female P [facility] Start: 10-24-2023 Gender identity Identifies as female gender (finding) [facility] History of tobacco use Passive smoker [facility] Clinical Notes 08-05-2022 to 11-07-2023 Pre-Procedure Instructions - Angelia Kramer RN - 11/07/2023 10:30 AM EDTPerioperative Nursing Note - Angelia Kramer RN - 11/07/2023 10:30 AM Zainab Leon MD - 10/26/2023 3:00 PM EST Note Date & Type Note Facility 11-07-2023 Instructions Formatting of th is note might be different from the original. Your surgery/procedure is scheduled at [facility] on 11/14/2023 at 11 am Arrival Time 9 am [facility] Address: [address] [place] [address], [address] [place] [address] in the Emergency Center Parking lot. Report to the hotel front desk agent in the Emergency/Surgery Registration lobby of the hospital. Please call Pre-Admission Clinic at [phone] if you have any questions prior to surgery. For questions the morning of surgery, please call the Pre-op Department at [phone]. Notify your SURGEON if you develop any illness such as a cold, cough, fever, sore throat, vomiting or are hospitalized between now and your surgery. CONTINUE TO TAKE YOUR MEDICATIONS PRESCRIBED. DO NOT STOP YOUR PRESCRIBED MEDICATIONS UNLESS DIRECTED BY YOUR PRESCRIBING PHYSICIAN Take the following medications the morning of surgery with a sip of water: none Weight loss medications: n/a Take inhalers as prescribed the morning of surgery. . Blood thinners: Medications such as Coumadin, Heparin, Aspirin, Plavix, Eliquis, Pradaxa) Please contact your physician regarding a stop/hold date for these medications. Diabetics: If you take insulin, contact your prescribing doctor for instructions on how to manage this the night before and the morning of surgery. Non-steriodal Anti-Inflammatory Drugs (NSAIDS)- Stop 3 days prior to surgery unless otherwise directed by your surgeon. Vitamins/Herbal Products: You may continue to take your prescribed vitamins such as potassium, iron, vitamin B, vitamin C, or multivitamin unless specifically instructed by your surgeon to stop. STOP taking all herbal products/teas one week prior to your surgery. Marijuana: Stop marijuana 72 hours prior to surgery, stop CBD oil 48 hours prior to surgery. If you have been given bowel prep instructions by your surgeon, please call the surgeon's office with any questions about these instructions. What do I do the day of Surgery? Age 2 through adult - Stop all solids by midnight, You may have clear liquids up to 2 hours before surgery, unless otherwise instructed by your surgeon Clear liquids are: water, sports drinks such as Gatorade or G2, or apple juice. You may NOT have: tube feedings, dairy products, alcoholic beverages, orange juice, or any liquids with solids or pulp in it If applicable, shower again with CHG soap the morning of your surgery. If you received a green plastic bracelet, bring it with you the day of surgery and your nurse will put it on you. What do I need to do to prepare for surgery? If you will be going home the same day as your surgery, arrange for an adult over [address] Riding in a bus or taxi by yourself is not permitted. You should not smoke or drink alcohol 24 hours before your surgery. Smoking increases the risk of breathing problems after surgery. Alcohol thins the blood and may cause bleeding problems during surgery If you have been assigned DRISS Education by your surgeon's office, please complete this education prior to your surgery. For questions regarding DRISS education, reach out to your surgeons office. If you have been given a prescription for occupational, physical or speech therapy, please set up these appointments before your procedure. If you would like to schedule therapy at a [facility] facility, please call [phone] ([phone]). Do not use lotions, creams, powders, perfume, make up, cologne or after-shaves day of surgery. Remove ALL jewelry including wedding rings, body piercings, hair extensions that contain metal, nail cambodian, make-up, and contact lens. You may brush your teeth the morning of surgery, but do not swallow the water. Wear your dentures and partial plates to the hospital (no adhesive). Shower the night the before. If applicable, use the CHG (chlorhexidine gluconate) soap or wipes. Please be advised, [facility] has transitioned to a cashless payment system. What should I bring to the hospital? If you received a green plastic bracelet, bring it with you the day of surgery and your nurse will put it on you. Eyeglass or contact lens case If you will be spending the night, please bring personal care items and leave them in the car until you are taken to your room after surgery. Leave ALL valuables at home. If any of these instructions conflict with those you recieved from the surgeon, please seek clarification from your surgeon's office. DEEP BREATHING EXERCISES This exercise helps promote good air exchange and helps to prevent pneumonia after surgery. Breathe in slowly and deeply through the nose. Hold your breath for a few seconds and then exhale slowly through the mouth. Repeat this three times and then cough.Coughing helps to clear your lungs. If you have had a surgery with an incision into your abdomen or chest, press gently against your incision with a pillow or a folded blanket when you cough. Please be aware - it may not be roach to cough following some types of surgeries involving the eyes, ears, sinuses and throat. Always follow your doctor's instructions. LEG EXERCISES These exercises help promote good circulation and help to prevent blood clots after surgery. Point your toes to the ceiling and then point them to the wall. Do this slowly about 15-20 times. You may also move your feet in circles. Do the exercise that is most comfortable for you. If you have had surgery involving your shoulder or arm, we recommend you move your fingers. PRACTICING We ask that you begin practicing these exercises before your surgery. After surgery try to do both exercises at least every 2 hours during the day and early evening. SURGICAL SITE INFECTION AND PREVENTION What is a Surgical Site Infection? Infection can happen to the area of the body where surgery is done. This is called a surgical site infection (SSI). A SSI does not happen very often. Can SSIs be treated? Antibiotics are used to treat SSI. Some patients may need another surgery to treat the infection. The doctor will discuss treatment options with you. What are some of the things that hospitals are doing to prevent SSIs? Soap and water or alcohol hand rub are used before and after caring for each patient. Special soap is used to clean surgery workers hands and arms just before the surgery. Masks, gowns, gloves and hair covers are worn during the surgery to keep the area clean. Hair in the surgery area may be removed with clippers (not razors). A special soap that kills germs is used to clean the skin at the surgery site. Antibiotics may be given before the surgery starts. What can you do to prevent SSIs? Before surgery: You may be asked to shower or bathe with a special soap that kills germs the night before and the day of surgery. Use the soap as you were told. If you smoke, stop or cut down. Ask your doctor about ways to quit. Do not shave near where you will have surgery. Shaving can irritate the skin and make it easier to get and infection. After surgery: Be sure that the doctors and nurses clean their hands before and after touching you. Be sure your family and friends clean their hands before and after visiting you. Do not be afraid to remind them. * Care for your wound at home as told by your doctor or nurse * Call your doctor right away if you have fever, redness, increased pain, or drainage at the surgery site. Further questions? Contact the doctor, nurse or the Infection Prevention and Control department if you have any questions. PATIENT RIGHTS AND RESPONSIBILITIES As a patient at [facility], you have the right to: Receive medical care and be informed of who is taking care of you Be treated with dignity and respect Have a family member/automobile rental representative of choice and your physician notified of your admission Receive information and actively participate in decisions about your care and treatment Refuse care, treatment and services Decide who may provide your support and speak for you Access zoroastrian and spiritual services Participate in ethical issues and questions about your care Receive private and confidential care Have appropriate assessment and management of your pain Know guest visitation restrictions or limitations Have an advance directive Access protective services Consent or refuse to participate in research studies or production or recordings, films or other images Have resolution of your complaints Receive information of hospital charges and payment methods Patient/patient automobile rental representative responsibilities are to: Provide information about health status to facilitate care, treatment and services Follow the treatment, plan, keep appointments and speak up when you do not understand the plan Respect the rights of other patients and healthcare personnel Follow organizational rules and regulations that support quality care and a safe environment Fulfill financial obligations as promptly as possible [facility] 11-07-2023 Miscellaneous Notes Pt is going to [facility] on 11/09/2023 to havre EKG, CXR and labs. Your surgery/procedure is scheduled at [facility] on 11/14/2023 at 11 am Arrival Time 9 am [facility] Address: [address] [place] [address], [address] [place] [address] in the Emergency Center Parking lot. Report to the hotel front desk agent in the Emergency/Surgery Registration lobby of the hospital. Please call Pre-Admission Clinic at [phone] if you have any questions prior to surgery. For questions the morning of surgery, please call the Pre-op Department at [phone]. Notify your SURGEON if you develop any illness such as a cold, cough, fever, sore throat, vomiting or are hospitalized between now and your surgery. CONTINUE TO TAKE YOUR MEDICATIONS PRESCRIBED. DO NOT STOP YOUR PRESCRIBED MEDICATIONS UNLESS DIRECTED BY YOUR PRESCRIBING PHYSICIAN Take the following medications the morning of surgery with a sip of water: none Weight loss medications: n/a Take inhalers as prescribed the morning of surgery. . Blood thinners: Medications such as Coumadin, Heparin, Aspirin, Plavix, Eliquis, Pradaxa) Please contact your physician regarding a stop/hold date for these medications. Diabetics: If you take insulin, contact your prescribing doctor for instructions on how to manage this the night before and the morning of surgery. Non-steriodal Anti-Inflammatory Drugs (NSAIDS)- Stop 3 days prior to surgery unless otherwise directed by your surgeon. Vitamins/Herbal Products: You may continue to take your prescribed vitamins such as potassium, iron, vitamin B, vitamin C, or multivitamin unless specifically instructed by your surgeon to stop. STOP taking all herbal products/teas one week prior to your surgery. Marijuana: Stop marijuana 72 hours prior to surgery, stop CBD oil 48 hours prior to surgery. If you have been given bowel prep instructions by your surgeon, please call the surgeon's office with any questions about these instructions. What do I do the day of Surgery? Age 2 through adult - Stop all solids by midnight, You may have clear liquids up to 2 hours before surgery, unless otherwise instructed by your surgeon Clear liquids are: water, sports drinks such as Gatorade or G2, or apple juice. You may NOT have: tube feedings, dairy products, alcoholic beverages, orange juice, or any liquids with solids or pulp in it If applicable, shower again with CHG soap the morning of your surgery. If you received a green plastic bracelet, bring it with you the day of surgery and your nurse will put it on you. What do I need to do to prepare for surgery? If you will be going home the same day as your surgery, arrange for an adult over [address] Riding in a bus or taxi by yourself is not permitted. You should not smoke or drink alcohol 24 hours before your surgery. Smoking increases the risk of breathing problems after surgery. Alcohol thins the blood and may cause bleeding problems during surgery If you have been assigned DRISS Education by your surgeon's office, please complete this education prior to your surgery. For questions regarding DRISS education, reach out to your surgeons office. If you have been given a prescription for occupational, physical or speech therapy, please set up these appointments before your procedure. If you would like to schedule therapy at a [facility] facility, please call [phone] ([phone]). Do not use lotions, creams, powders, perfume, make up, cologne or after-shaves day of surgery. Remove ALL jewelry including wedding rings, body piercings, hair extensions that contain metal, nail cambodian, make-up, and contact lens. You may brush your teeth the morning of surgery, but do not swallow the water. Wear your dentures and partial plates to the hospital (no adhesive). Shower the night the before. If applicable, use the CHG (chlorhexidine gluconate) soap or wipes. Please be advised, [facility] has transitioned to a cashless payment system. What should I bring to the hospital? If you received a green plastic bracelet, bring it with you the day of surgery and your nurse will put it on you. Eyeglass or contact lens case If you will be spending the night, please bring personal care items and leave them in the car until you are taken to your room after surgery. Leave ALL valuables at home. If any of these instructions conflict with those you recieved from the surgeon, please seek clarification from your surgeon's office. DEEP BREATHING EXERCISES This exercise helps promote good air exchange and helps to prevent pneumonia after surgery. Breathe in slowly and deeply through the nose. Hold your breath for a few seconds and then exhale slowly through the mouth. Repeat this three times and then cough.Coughing helps to clear your lungs. If you have had a surgery with an incision into your abdomen or chest, press gently against your incision with a pillow or a folded blanket when you cough. Please be aware - it may not be roach to cough following some types of surgeries involving the eyes, ears, sinuses and throat. Always follow your doctor's instructions. LEG EXERCISES These exercises help promote good circulation and help to prevent blood clots after surgery. Point your toes to the ceiling and then point them to the wall. Do this slowly about 15-20 times. You may also move your feet in circles. Do the exercise that is most comfortable for you. If you have had surgery involving your shoulder or arm, we recommend you move your fingers. PRACTICING We ask that you begin practicing these exercises before your surgery. After surgery try to do both exercises at least every 2 hours during the day and early evening. SURGICAL SITE INFECTION AND PREVENTION What is a Surgical Site Infection? Infection can happen to the area of the body where surgery is done. This is called a surgical site infection (SSI). A SSI does not happen very often. Can SSIs be treated? Antibiotics are used to treat SSI. Some patients may need another surgery to treat the infection. The doctor will discuss treatment options with you. What are some of the things that hospitals are doing to prevent SSIs? Soap and water or alcohol hand rub are used before and after caring for each patient. Special soap is used to clean surgery workers hands and arms just before the surgery. Masks, gowns, gloves and hair covers are worn during the surgery to keep the area clean. Hair in the surgery area may be removed with clippers (not razors). A special soap that kills germs is used to clean the skin at the surgery site. Antibiotics may be given before the surgery starts. What can you do to prevent SSIs? Before surgery: You may be asked to shower or bathe with a special soap that kills germs the night before and the day of surgery. Use the soap as you were told. If you smoke, stop or cut down. Ask your doctor about ways to quit. Do not shave near where you will have surgery. Shaving can irritate the skin and make it easier to get and infection. After surgery: Be sure that the doctors and nurses clean their hands before and after touching you. Be sure your family and friends clean their hands before and after visiting you. Do not be afraid to remind them. * Care for your wound at home as told by your doctor or nurse * Call your doctor right away if you have fever, redness, increased pain, or drainage at the surgery site. Further questions? Contact the doctor, nurse or the Infection Prevention and Control department if you have any questions. PATIENT RIGHTS AND RESPONSIBILITIES As a patient at [facility], you have the right to: Receive medical care and be informed of who is taking care of you Be treated with dignity and respect Have a family member/automobile rental representative of choice and your physician notified of your admission Receive information and actively participate in decisions about your care and treatment Refuse care, treatment and services Decide who may provide your support and speak for you Access zoroastrian and spiritual services Participate in ethical issues and questions about your care Receive private and confidential care Have appropriate assessment and management of your pain Know guest visitation restrictions or limitations Have an advance directive Access protective services Consent or refuse to participate in research studies or production or recordings, films or other images Have resolution of your complaints Receive information of hospital charges and payment methods Patient/patient automobile rental representative responsibilities are to: Provide information about health status to facilitate care, treatment and services Follow the treatment, plan, keep appointments and speak up when you do not understand the plan Respect the rights of other patients and healthcare personnel Follow organizational rules and regulations that support quality care and a safe environment Fulfill financial obligations as promptly as possible documented in this encounter [facility] 11-07-2023 Nurse Note Pt is going to [facility] on 11/09/2023 to havre EKG, CXR and labs. [facility] 10-28-2023 Miscellaneous Notes Spoke with Mee 3/ and 3 to confirm surgery plan. Patient is scheduled at [facility] with Dr Leon on 11/14/23. She knows to arrive at 9:00a for 11:00a surgery. Patient knows to call [phone] to locate closest [facility] facility in order to complete PAT testing. She has phone call PAT scheduled for 11/07/23. She will follow up with Mary in [place] on 11/29/23 at 10:30a. documented in this encounter [facility] 10-28-2023 Telephone encounter Note Spoke with Mee 3/7 and 38 to confirm surgery plan. Patient is scheduled at [facility] with Dr Leon on 11/14/23. She knows to arrive at 9:00a for 11:00a surgery. Patient knows to call [phone] to locate closest [facility] facility in order to complete PAT testing. She has phone call PAT scheduled for 11/07/23. She will follow up with Mary in [place] on 11/29/23 at 10:30a. [facility] 10-26-2023 History of Presen t illness Narrative [...] personal or family history of GI or travel money advisor malignancies. Oncology History No overview note Isaura [...] 01/12/2018 Performed by Nitesh Littlejohn MD at [facility] HEMORROIDECTOMY TONSILLECTOMY Past Medical History: Diagnosis [...] procedures Referring and communicating with other health hearing healthcare practitioner (not separately reported) Documenting clinical information in the electronic or other health record Independently interpreting results (not separately reported) and communicating results to the patient/family/caregiver Nabil Leon MD [facility] Miscellaneous Notes Left VM to schedule INSPECTOR OF WEIGHTS AND MEASURES appt with travel money advisor onc, call back # provided. Requested images from pelvic US be pushed via PACS from [facility]. [facility] Telephone encounter Note Left VM to schedule INSPECTOR OF WEIGHTS AND MEASURES appt with travel money advisor onc, call back # provided. Requested images from pelvic US be pushed via PACS from [facility]. [facility] Note Procedures Choosing a Surgeon When [...] a surgeon: ? Is certified by the [place] [employer]. To be board certified, a surgeon must go through an approved residency training program and pass a comprehensive exam. You can check your surgeon's board certification at www.abms.org/verify-certificatio n/ ? Has had any problems with state licensing authorities. You can check whether a surgeon has had malpractice claims or other professional problems by going to your state medical board at www.fsmb.org/wrgbfek-t-nwxxs-med ical-board/ ? Has good ratings from other patients and providers. You may be able to get a consumer rating on your surgeon at www.checkbook.org/surgeonratings / Step 3: Research the hospital or clinic [...] you are considering is certified by the [place] [employer]. ? Meet with [...] provider. Document Revised: 10/19/2021 Document Reviewed: 10/19/2021 [employer] Patient Education ? 2022 [employer]. [facility] 08-05-2022 Note PROCEDURE: XR FOOT L T [...] authenticated by: ALAN CONLEY Date: 2022-08-04 22:03 [facility] Evaluation + Plan note Future Appointments Appointment Date:05/30/2023 02:00:00 PM Scheduled Provider: Location:[facility] Appointment Type: Medicare Wellness Subsequent Appointment Date:05/30/2023 02:40:00 PM Scheduled Provider:Anamaria Chinchilla MD Location:[facility] Appointment Type: Open Diagnostic Tests PendingUrine Culture 05/11/23 [facility] Evaluation note Diagnosis Endometrial thickening on ultrasound- Primary Postmenopausal bleeding [facility] Preop testing- Primary Unspecified pre-operative examination [facility] Narrative No data available for this section [facility] Discharge instructions No data available for this section [facility] filedocumented in this encounter [facility] SystemInstructionsNot on filedocumented in this encounter [facility] SystemInstructionsNot on filedocumented in this encounter [facility] SystemInstructionsNot on filedocumented in this encounter [facility] SystemProgress note No data available for this section [facility] Summary Purpose Family History No Family [...] Specialty Diagnoses / Procedures Referred By Domitila damon Referred To Contact Diagnoses Preop testing Procedures ECG 12 lead Nabil Leon MD [address] [place] [address], [address] [place] [address] Referral ID Status Reason Start Date Expiration Date V isits Requested Visits Authorized [id number] Pending Review 10/28/2023 10/27/2024 1 1 Additional Source Comments INFORMATION SOURCE (unrecogn ized section and content) DATE CREATED AUTHOR 02/13/2018 [facility] DATE CREATED AUTHOR AUTHOR'S ORGANIZ ATION 08/12/2022 [facility] DATE CREATED AUTHOR AUTHOR'S ORGANIZ ATION 10/12/2023 [facility] [facility] EPIC DATE CREATED AUTHOR AUTHOR'S ORGANIZ ATION 10/27/2023 [facility] DATE CREATED AUTHOR AUTHOR'S ORGANIZ ATION 10/28/2023 [facility] DATE CREATED AUTHOR AUTHOR'S ORGANIZ ATION 11/18/2023 [facility] DATE CREATED AUTHOR AUTHOR'S ORGANIZ ATION 12/28/2023 [facility] DATE CREATED AUTHOR AUTHOR'S ORGANIZ ATION 05/08/2024 [facility] DATE CREATED AUTHOR AUTHOR'S ORGANIZ ATION 05/15/2024 [facility] Patient Care team informatio n (unrecognized section and content) Showplace Manager Relationship Specialty Start Date End Date Anjelica Gambino MD [address] [place] [address] PCP - General Family Medicine 12/24/16 Showplace Manager Relationship Specialty Start Date End Date Anjelica Gambino MD [address] [place] [address] PCP - General Family Medicine 12/24/16 Showplace Manager Relationship Specialty Start Date End Date Anjelica Gambino MD [facility] [address] [place] [address] PCP - General Family Medicine 12/24/16 Showplace Manager Relationship Specialty Start Date End Date Anamaria Chinchilla MD [address] [place] [address] PCP - General Family Medicine 11/07/23 FOR RECORDS PERTAINING TO PATIENTS WHO ARE [...] BE BASED ON THE PRIMARY CLINICAL RECORDS. [employer] provides no warranty or guarantee of the accuracy or completeness of information in this document.
== END 2024-06-05 09:06 | disposition home or self-care (01) ==
LOC: RAD 09:05
PROVIDERS: PCP Family Medicine; Visit Provider Podiatrist Foot & Ankle Surgery
DX: M79.672 Pain in left foot (principal); S92.325D Nondisplaced fracture of second metatarsal bone, left foot, subsequent encounter for fracture with routine healing
CPT/HCPCS: 73630

== ENCOUNTER 2024-07-17 09:02 | Outpatient (OUT) | payer MEDICARE, SELFPAY ==
--- NOTE | 2024-07-17 09:06 | XR_ITS ---
[address] [address] Patient Name: PAPITO HAYDEN MRN: [id number] date: 1950 Sex: F Assigned Patient Location: [facility] Current Patient Location: Accession/Order Number: [id number] Exam Date: 07/17/2024 09:15 Report Date: 07/19/2024 09:29 At the request of: SUNG COPELAND Procedure: XR foot SARAHI min 3V EXAMINATION: XR foot SARAHI min 3V HISTORY: Bilateral Foot Pain ; lateral right foot pain; follow-up left foot fracture COMPARISON: a FINDINGS: RIGHT FINDINGS: BONES: Thin nondisplaced fracture line involving lateral cortex at base of 5th metatarsal. Mild degenerative changes of the first metatarsophalangeal joint. SOFT TISSUES: No visible soft tissue swelling. OTHER: Negative. LEFT FINDINGS: BONES: Increased sclerosis at base of second metatarsal; stable alignment. Mild degenerative change of first metatarsophalangeal joint. SOFT TISSUES: No visible soft tissue swelling. OTHER: Negative. XR/XR foot SARAHI min 3V IMPRESSION: RIGHT CONCLUSION: 1. Nondisplaced fracture involving proximal lateral cortex of the 5th metatarsal; possible stress fracture. LEFT CONCLUSION: 1. Ongoing bone healing and normal alignment of second metatarsal. Electronically authenticated by: ALAN CÁRDENAS Date: 07/19/2024 09:29
== END 2024-07-17 09:03 | disposition home or self-care (01) ==
LOC: RAD 09:02
PROVIDERS: PCP Family Medicine; Visit Provider Podiatrist Foot & Ankle Surgery
DX: M79.671 Pain in right foot (principal); M79.672 Pain in left foot; S92.354A Nondisplaced fracture of fifth metatarsal bone, right foot, initial encounter for closed fracture; S92.325D Nondisplaced fracture of second metatarsal bone, left foot, subsequent encounter for fracture with routine healing
CPT/HCPCS: 73630

== ENCOUNTER 2024-08-08 10:21 | Outpatient (OUT) | payer MEDICARE, SELFPAY ==
--- NOTE | 2024-08-08 10:25 | XR_ITS ---
The [address] [address] Patient Name: PAPITO HAYDEN MRN: [id number] date: 1950 Sex: F Assigned Patient Location: [facility] Current Patient Location: Accession/Order Number: [id number] Exam Date: 08/08/2024 10:36 Report Date: 08/09/2024 06:01 At the request of: SUNG COPELAND Procedure: XR foot SARAHI min 3V EXAMINATION: XR foot SARAHI min 3V HISTORY: Left Foot Pain, Metatarsalgia Right Foot COMPARISON: No relevant comparison available. FINDINGS: RIGHT FINDINGS: BONES: Nonhealing lateral cortical fracture involving the proximal 5th metatarsal. Mild degenerative change of the first metatarsophalangeal joint. SOFT TISSUES: No visible soft tissue swelling. OTHER: Negative. LEFT FINDINGS: BONES: Healing fracture involving the base of the second metatarsal. Mild degenerative change of first metatarsophalangeal joint. SOFT TISSUES: No visible soft tissue swelling. OTHER: Negative. XR/XR foot SARAHI min 3V IMPRESSION: RIGHT CONCLUSION: Stable nondisplaced fracture involving lateral cortex at base of 5th metatarsal; unchanged. LEFT CONCLUSION: Ongoing osseous healing involving base of second metatarsal fracture; no significant change. Electronically authenticated by: ALAN CÁRDENAS Date: 08/09/2024 06:01
== END 2024-08-08 10:22 | disposition home or self-care (01) ==
LOC: RAD 10:21
PROVIDERS: PCP Family Medicine; Visit Provider Podiatrist Foot & Ankle Surgery
DX: M79.672 Pain in left foot (principal); M77.41 Metatarsalgia, right foot; S92.354D Nondisplaced fracture of fifth metatarsal bone, right foot, subsequent encounter for fracture with routine healing; S92.325D Nondisplaced fracture of second metatarsal bone, left foot, subsequent encounter for fracture with routine healing
CPT/HCPCS: 73630

== ENCOUNTER 2024-09-14 13:31 | Emergency (ER) | payer MEDICARE, SELFPAY ==
[2024-09-14] VITALS (10 sets, daily range): BP systolic 126–150; BP diastolic 63–87; PULSE 56–76; TEMP 36.4; O2SAT 92–100; BMI 28.5
--- NOTE | 2024-09-14 13:35 | ECG_ITS ---
The [facility] Test Date: 2024-09-14 Pat Name: PAPITO HAYDEN Department: Room: - Gender: Female Punch Molder: : 1950 Requested By: [id number] Order Number: [id number] Reading MD: SAIGE STRICKLAND Measurements Intervals [place] Rate: 62 P: 68 NM: 192 QRS: 69 QRSD: 88 T: 64 QT: 436 QTc: 442 Interpretive Statements 1100 Sinus rhythm 9110 normal ECG Compared to ECG 08/05/2023 09:40:47 Sinus bradycardia no longer present Electronically Signed On 09-16-2024 8:07:38 EST by SAIGE STRICKLAND
--- NOTE | 2024-09-14 13:37 | ED.GENADUL1 ---
HPI HPI - General Adult General Chief complaint: Syncope Stated complaint: passing out, nausea Time Seen by Provider: 09/14/24 13:35 Source: patient and EMR Mode of arrival: ambulance Limitations: no limitations History of Present Illness HPI narrative: Patient is a 74-year-old female who presents to the emergency department by ambulance for evaluation after a syncopal episode upon returning home. Patient was seen at a hospital in the area [facility] [place], where she had a procedure for irrigation and debridement of her right lower leg. She had a cat bite last week which became infected, she had a subsequent surgery today for a washout and was discharged home after the procedure. On the way home in the car, patient states she remembers that she had to throw up and then was witnessed to have a brief syncopal episode in the vehicle. 911 was called. They reported that the patient felt very weak and they had to assist her to the cart. Patient denies headache, visual changes, chest pain, shortness of breath. She denies any recent illness or flulike symptoms. She has no significant pain to the right leg and denies any other pain. She takes an aspirin daily, she has no history of syncope or significant cardiac problems. She takes medication for high blood pressure. Glucose was normal on EMS arrival. She had 1 episode of emesis for EMS, they administered 200 mL of IV fluids and 4 mg of Zofran prior to arrival. Related Data Home Medications ?Medication ?Instructions ?Recorded ?Confirmed amlodipine 5 mg tablet 5 mg PO QPM 08/05/23 08/12/23 aspirin 81 mg tablet,delayed 81 mg PO .every other day 08/05/23 08/12/23 release (Adult Aspirin Regimen) calcium 600 mg (as 1 tab PO DAILY 08/05/23 08/12/23 carbonate)-vitamin D3 5 mcg (200 unit) tablet (Calcium 600 + D(3)) docusate sodium 100 mg capsule 200 mg PO QPM 08/05/23 08/12/23 (Stool Softener) glucosamine-chondroitin 500 mg-400 3 cap PO QPM 08/05/23 08/12/23 mg capsule losartan 100 mg tablet 100 mg PO DAILY 08/05/23 08/12/23 omega-3 fatty acids 500 mg PO DAILY 08/05/23 08/12/23 psyllium husk 3.4 gram/5.4 gram 1 tbsp PO DAILY PRN constipation 08/05/23 08/12/23 oral powder (Metamucil) rosuvastatin 20 mg tablet 20 mg PO DAILY 08/05/23 08/12/23 tafluprost (PF) 0.0015 % eye drops drp ophthalmic (eye) DAILY 08/05/23 in a dropperette (Zioptan (PF)) vitamin E 30 unit capsule 180 unit PO QPM 08/05/23 08/12/23 Previous Rx's ?Medication ?Instructions ?Recorded promethazine 25 mg tablet 25 mg PO Q6H PRN nausea and 09/14/24 vomiting #12 tabs Allergies Allergy/AdvReac Type Severity Reaction Status Date / Time hydromorphone Allergy Confusion Verified 09/14/24 13:38 Opioid HPI Opioid Management Most Recent Opioid Data: No Data to Display Review of Systems ROS Constitutional Denies: fever or chills Ears, nose, mouth, and throat Denies: throat pain or nasal congestion Cardiovascular Denies: chest pain Respiratory Denies: shortness of breath or cough Gastrointestinal Denies: nausea or vomiting Integumentary/Breast Denies: rash Hematologic/Lymphatic Denies: easy bruising or easy bleeding PFSH PFSH Medical History (Updated 09/14/24 @ 15:44 by JASON Barker) Foot fracture, left (2022) ?S92.902A - Unspecified fracture of left foot, initial encounter for closed fracture (ICD-10) Sinus tarsi syndrome of left ankle (2021) ?M25.572 - Pain in left ankle and joints of left foot (ICD-10) Left foot pain (07/2022) ?M79.672 - Pain in left foot (ICD-10) Osteopenia ?M85.80 - Other specified disorders of bone density and structure, unspecified site (ICD-10) Arthritis ?M19.90 - Unspecified osteoarthritis, unspecified site (ICD-10) Pneumonia ?J18.9 - Pneumonia, unspecified organism (ICD-10) Heartburn ?R12 - Heartburn (ICD-10) Constipation ?K59.00 - Constipation, unspecified (ICD-10) High cholesterol ?E78.00 - Pure hypercholesterolemia, unspecified (ICD-10) Hypertension ?I10 - Essential (primary) hypertension (ICD-10) Post-menopausal bleeding ?N95.0 - Postmenopausal bleeding (ICD-10) Thickened endometrium ?R93.89 - Abnormal findings on diagnostic imaging of other specified body structures (ICD-10) 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 - Nevus, non-neoplastic (ICD-10) Surgical History (Updated 08/05/23 @ 09:27 by Angelia Beltran NP) History of wisdom tooth extraction ?K08.409 - Partial loss of teeth, unspecified cause, unspecified class (ICD-10) History of tonsillectomy ?Z90.89 - Acquired absence of other organs (ICD-10) History of hemorrhoidectomy ?Z98.890 - Other specified postprocedural states (ICD-10) History of colonoscopy ?Z98.890 - Other specified postprocedural states (ICD-10) History of cholecystectomy ?Z90.49 - Acquired absence of other specified parts of digestive tract (ICD-10) Family History (Updated 08/05/23 @ 09:59 by Angelia Beltran NP) Other Bladder cancer Family history of cancer Family history of diabetes mellitus Heart disease Lung cancer Social History Within the past year, how often did you have a drink containing alcohol: 4 or more times a week Within the past year, how many standard drinks containing alcohol did you have on a typical day: 1 or 2 Total score: 0 Score interpretation: A score less than 3 is consistent with normal alcohol consumption. Smoking status: Never smoker Non-prescribed substance use: denies use Previous occupational history: Retired Highest level of school completed/degree received: Associate degree: academic program Little interest or pleasure in doing things: not at all Feeling down, depressed, or hopeless: not at all Exam Narrative Exam Narrative: Gen.: Awake, alert, in no distress Head: Normocephalic, atraumatic ENT: Moist mucous membranes Respiratory: No respiratory distress, lungs clear bilaterally Cardio: Regular rate and rhythm Gastrointestinal: Abdomen is soft, nondistended and nontender to palpation Extremities: Moves extremities equally Psych: Normal mood and affect Neuro: No focal neuro deficit Skin: Warm, dry, intact Constitutional Vital Signs, click to edit/add: Last Vital Signs Temp 97.6 F 09/14/24 13:32 Pulse 57 L 09/14/24 16:00 Resp 14 09/14/24 16:00 BP 127/63 09/14/24 16:00 Pulse Ox 97 09/14/24 16:00 O2 Del Method Room Air 09/14/24 13:32 Course Vital Signs Vital signs: Vital Signs Temperature 97.6 F 09/14/24 13:32 Pulse Rate 60 09/14/24 13:32 Respiratory Rate 16 09/14/24 13:32 Blood Pressure 143/87 H 09/14/24 13:32 Pulse Oximetry 98 09/14/24 13:32 Oxygen Delivery Method Room Air 09/14/24 13:32 Temperature 97.6 F 09/14/24 13:32 Pulse Rate 57 L 09/14/24 16:00 Respiratory Rate 14 09/14/24 16:00 Blood Pressure 127/63 09/14/24 16:00 Pulse Oximetry 97 09/14/24 16:00 Oxygen Delivery Method Room Air 09/14/24 13:32 Medical Decision Making MDM Narrative Medical decision making narrative: Patient treated with IV fluids, Zofran and IV Phenergan. She had no additional episodes of nausea or vomiting in the ER after she was medicated. She was able to transfer to a bedside commode and felt stable, no additional episodes of lightheadedness or syncope. She was reevaluated by attending physician. Her EKG is unremarkable, laboratory studies are also reviewed and noted unremarkable. Patient was encouraged to eat and drink regularly for the rest of the day, rest and continue to push fluids. Return to the ER if symptoms change or worsen. SHARED APC VISIT, PHYSICIAN ATTESTATION: [id number] I performed a substantive part of the MDM during the patient?s E/M visit. I personally evaluated and examined the patient. I personally made or approved the documented management plan and acknowledge its risk of complications. Medical Records Medical records reviewed: Yes I reviewed the patient's medical records Lab Data Lab results reviewed: Yes I reviewed the patient's lab results Labs: Lab Results 09/14/24 Range/Units 13:51 WBC 6.0 (4.0-11.0) 10^3/uL RBC 3.19 L (4.20-5.40) 10^6/uL Hgb 10.8 L (12.0-16.0) g/dL Hct 31.3 L (36.0-48.0) % MCV 98.1 (81.0-99.0) fL MCH 33.9 (26.7-34.0) pg MCHC 34.5 (29.9-35.2) g/dL RDW 12.1 (11.0-15.0) % Plt Count 296 (150-450) 10^3/uL MPV 9.2 L (9.5-13.5) fL Seg Neuts % (Manual) 55.0 (43.0-75.0) Lymphocytes % (Manual) 32.0 (20.5-60.0) % Atypical Lymphs % (Man) 2.0 % Monocytes % (Manual) 8.0 (1.7-12.0) % Eosinophils % (Manual) 3.0 (0.9-7.0) % Basophils % (Manual) 0.0 L (0.2-2.0) % Neutrophils # (Manual) 3.30 (1.4-6.5) 10^3/uL Lymphocytes # (Manual) 1.92 (1.20-3.80) 10^3/uL Abs Atypical Lymphs Man 0.12 Monocytes # (Manual) 0.48 (0.30-0.80) 10^3/uL Eosinophils # (Manual) 0.18 (0.00-0.70) 10^3/uL Basophils # (Manual) 0.00 (0.00-0.10) 10^3/uL Sodium 137 (136-145) mmol/L Potassium 3.7 (3.5-5.1) mmol/L Chloride 103 (98-107) mmol/L Carbon Dioxide 25.9 (21.0-32.0) mmol/L Anion Gap 11.8 BUN 18.0 (7.0-18.0) mg/dL Creatinine 1.36 H (0.55-1.02) mg/dL Est GFR ( Amer) 46 L (>=60 mL/min/1.73m^2) Est GFR (Non-Af Amer) 38 L (>=60 mL/min/1.73m^2) BUN/Creatinine Ratio 13.2 Glucose 138 H (74-106) mg/dL Lactate 1.8 (0.4-2.0) mmol/L Calcium 8.5 (8.5-10.1) mg/dL Total Bilirubin 0.2 (0.2-1.0) mg/dL AST 14 L (15-37) U/L ALT 15 (14-59) U/L Alkaline Phosphatase 50 (46-116) U/L Troponin I High Sens <4.0 L (4.0-51.3) pg/mL Total Protein 7.0 (6.4-8.2) g/dL Albumin 3.4 (3.4-5.0) g/dL Globulin 3.6 g/dL Albumin/Globulin Ratio 0.9 ECG Data Attestation: I personally reviewed and interpreted this ECG as follows: (Normal sinus rhythm at a rate of 62, no acute ST elevation or ectopy. EKG reviewed by attending physician) Discharge Plan Discharge Chief Complaint: Syncope Clinical Impression: Syncope, Nausea & vomiting Patient Disposition: Home, Self-Care Time of Disposition Decision: 15:44 Condition: Good Prescriptions / Home Meds: New promethazine 25 mg tablet 25 mg PO Q6H PRN (Reason: nausea and vomiting) Qty: 12 0RF No Action calcium carbonate-vitamin D3 [Calcium 600 + D(3)] 600 mg-5 mcg (200 unit) tablet 1 tab PO DAILY amlodipine 5 mg tablet 5 mg PO QPM losartan 100 mg tablet 100 mg PO DAILY rosuvastatin 20 mg tablet 20 mg PO DAILY tafluprost (PF) [Zioptan (PF)] 0.0015 % dropperette OPHTHALMIC (EYE) DAILY docusate sodium [Stool Softener] 100 mg capsule 200 mg PO QPM Metamucil 3.4 gram/5.4 gram powder 1 tbsp PO DAILY PRN (Reason: constipation) Rx Instructions: mix into at least 8 oz of water or juice before administering aspirin [Adult Aspirin Regimen] 81 mg tablet,delayed release (DR/EC) 81 mg PO .every other day vitamin E 30 unit capsule 180 unit PO QPM glucosamine-chondroitin 500-400 mg capsule 3 cap PO QPM Rx Instructions: give with meal/snack omega-3 fatty acids Capsule 500 mg PO DAILY Print Language: Estonian Instructions: Syncope (ED), Acute Nausea and Vomiting (ED) Referrals: ANAMARIA CHINCHILLA [Primary Care Provider] - 1 week Discharge Date/Time: 09/14/24 16:38
--- OUTSIDE RECORDS SUMMARY | 2024-09-14 13:46 | XMS_ITS | CCD ---
Author Organization [facility] Inform ion Partnership [facility] Care Team Providers Care Mobility Specialist Name Role Phone FARA BOOKER Unavailable Unavailable GAMBINO, ANJELICA Bergeron Unavailable Unavailable KARLYRICK, FARA Unavailable Unavailable GAMBINO, ANJELICA Bergeron Unavailable Unavailable [...] Care Unavailable KARASIK, DR CHAUDHARI Consulting Unavailable KARASIK, DR CHAUDHARI Attending Unavailable KARASIK, DR CHAUDHARI Admitting Unavailable ZIEBYAZMIN, DR ALAN Rico Consulting Unavailable GAMBINO, DR ANJELICA Bergeron Primary Care Unavailable GAMBION, DR ANJELICA Bergeron Consulting Unavailable GAMBINO, DR [...] Care Unavailable KARASIK, DR CHAUDHARI Consulting Unavailable KARASIK, DR CHAUDHARI Attending Unavailable KARLYRICK, DR CHAUDHARI Admitting Unavailable PRIMO, DR KVNG Mendoza Consulting Unavailable Anamaria Chinchilla. Primary Care Physician Anjelica Gambino MD Primary Care Provider NABIL LORD Attending Unavailable GAMBINO, ANJELICA Bergeron Referring Unavailable GAMBINO, ANJELICA E Primary Care Unavailable GAMBINO, ANJELICA E Referring Unavailable BELEN, ANJELICA Bergeron Primary Care Unavailable Anamaria Chinchilla MD Primary Care Provider [phone] ANJELICA GAMBINO Referring Unavailable ROSS, ANAMARIA E Primary Care Unavailable CAROLYN, NABIL C Admitting Unavailable CAROLYN, NABIL C Attending Unavailable CAROLYN, NABIL C Referring Unavailable GAMBINO, ANJELICA E Primary Care Unavailable SUNG NIÑO Attending Unavailable AMOR ANAMARIA Rubio Primary Care Unavailable CAROLYN, NABIL C Attending Unavailable CAROLYN, NABIL C Referring Unavailable ROSS, ANAMARIA E Primary Care Unavailable CAROLYN, NABIL C Attending Unavailable CAROLYN, NABIL C Referring Unavailable ROSS, ANAMARIA E Primary Care Unavailable CAROLYN, NABIL C Referring Unavailable AMOR, ANAMARIA E Primary Care Unavailable MARY PENNINGTON Attending Unavailable BELEN, ANJELICA E Referring Unavailable AMOR, ANAMARIA E Primary Care Unavailable MARY PENNINGTON Attending Unavailable ANAMARIA CHINCHILLA Referring Unavailable ANAMARIA CHINCHILLA Primary Care Unavailable MD Anamaria Chinchilla Attending Unavailable MD Anamaria Chinchilla Attending Unavailable MD Anamaria Chinchilla Attending Unavailable MD Anamaria Chinchilla Admitting Unavailable MD Anamaria Chinchilla Attending Unavailable VIPUL OBANDO Attending Unavailable MD Anamaria Chinchilla Attending Unavailable MD Anamaria Chinchilla Attending Unavailable MD Anamaria Chinchilla Attending Unavailable VIPUL OBANDO Attending Unavailable MD Anamaria Chinchilla Attending Unavailable MD Anamaria Chinchilla Admitting Unavailable MD Anamaria Chinchilla Attending Unavailable Anjelica Gambino MD Primary Care Provider [phone] BENTLEY DAS Attending Unavailable BENTLEY DAS Attending Unavailable MD Anamaria Chinchilla Attending Unavailable MD Anamaria Chinchilla Admitting Unavailable MD Anamaria Chinchilla Attending Unavailable MD Anamaria Chinchilla Attending Unavailable Kushal Keith Attending Unavailable Allergies Allergy Classification Reported Allergen(s) Allergy Type Date of Onset Reaction(s) Facility (5 sources) atorvastatin; Translations: [atorvastatin] Drug Allergy Unknown (qualifier value) [facility] (13 sources) HYDROmorphone; Translations: [hydromorphone] Drug Allergy 3 Unknown (qualifier value), Confusion, Hallucinations, Unknown [facility] (5 sources) Pyrilamine; Translations: [pyrilamine] Drug Allergy Unknown (qualifier value) [facility] (3 sources) No Known Medication Allergies; Translations: [No Known Medication Allergies] Propensity to adverse reactions (disorder) [facility] Repository Medications Current Medications Medication Drug Class(es) Dates Sig (Normalized) Sig (Original) amLODIPine 5 mg oral tablet (9 sources) Dihydropyridine Calcium Channel Sylvester Start: 06-01-2023 take 1 tablet by mouth once daily amLODIPine 5 mg Tab See Instructions, TAKE 1 TABLET BY MOUTH DAILY, # 90 tab(s), Refills(s) 0, Pharmacy: [facility] [id number], 162, cm, 05/07/24 14:07:00 EDT, Height/Length Dosing, 76, kg, 05/07/24 14:07:00 EDT, Weight Dosing Start Date: 07/10/24 Status: Ordered aspirin 81 mg oral capsule (10 sources) Platelet Aggregation Inhibitor, Nonsteroidal Anti-inflammatory Drug Start: 11-29-2022 take 1 capsule by mouth every other day aspirin 81 mg oral capsule See Instructions, 1 cap(s) Oral every other day, Refills(s) 0 Start Date: 11/29/22 Status: Ordered Start: 11-29-2022 take 1 capsule by mo [facility] once daily aspirin 81 mg oral capsule 81 mg = 1 cap(s), Oral, Daily, Refills(s) 0 Start Date: 11/29/22 Status: Ordered take 1 tablet by silver every other day aspirin 81 MG EC tablet Take 81 mg by mouth every other day. Active aspirin 81 mg ch ewable tablet Chew 1 tablet (81 mg total) and swallow every other day. Heart health 0 Active bimatoprost 0.01 mg drug implant (8 sources) Prostaglandin Analog Start: 07-13-2024 Durysta 1 0 mcg intraocular implant mcg, IntraOcular, Once, Refills(s) 0 Start Date: 07/13/24 Status: Ordered Start: 05-07-2024 bimatoprost 0. 03% ophthalmic solution Refill(s) 0 Start Date: 05/07/24 Status: Ordered Bimatoprost (Dur ysta) 10 MCG implant Inject 10 mcg into the eye if needed ( NEEDED) Active take 1 drop(s) into the eye(s) once daily, then take 1 drop(s) into the eye(s) once daily at bedtime bimatoprost (LATISSE) 0.03 % ophthalmic solution Administer 1 drop to both eyes nightly. Place 1 drop on applicator and apply along skin of upper eyelid at base of eyelashes daily at bedtime; rpt for 2nd eye with clean applicator 0 Active Calcium Citrate / Vitamin D (2 sources) Start: 05-30-2023 calcium-vitami n D Daily, Refill(s) 0 Start Date: 05/30/23 Status: Ordered Abbhvck-Gzcswgxoqy-Thm harp D (VITAMIN D3/CALCIUM/PHOSPHORUS PO) (3 sources) take 1 dose by mouth once in the morning Ulnqtjm-Qlzvehehlj-Xks harp D (VITAMIN D3/CALCIUM/PHOSPHORUS PO) Take 1 each by mouth in the morning. Active cholecalciferol 0.025 mg oral capsule (4 sources) Vitamin D take 1 capsule by mouth once daily in the morning cholecalciferol, vitamin D3, 25 mcg (1,000 unit) capsule Indications: prevention of vitamin D deficiency Take 1 capsule (1,000 Units total) by mouth in the morning. Indications: prevention of vitamin D deficiency. With calcium. 0 Active take 1 capsule by mo uth in the morning cholecalciferol, vitamin D3, 2,000 units capsule Take 1 capsule (2,000 Units total) by mouth in the morning. 0 Active chondroitin sulfates 400 mg / glucosamine hydrochloride 500 mg oral tablet (3 sources) take 1 tablet by mouth three times daily glucosamine-chondroitin 500-400 mg tablet Take 1 tablet by mouth 3 (three) times a day. 0 Active denosumab (7 sources) RANK Ligand Inhibitor Start: 024 Denosumab (PROLIA SC) Inject 1 Units under the skin every 6 (six) months 07/30/2024 Active Start: 07-30-2024 Prolia mg, Sub Cutaneous, q6mo, Refills(s) 0 Start Date: 07/30/24 Status: Ordered denosumab (PROLI A SUBQ) Inject under the skin every 6 (six) months. Last dose 09/2023 0 Active denosumab (PROLI A SUBQ) Inject under the skin. 0 Active docusate sodium 100 mg oral capsule (2 sources) take 2 capsules by mouth once daily at dinner docusate sodium (COLACE) 100 mg capsule Indications: constipation Take 2 capsules (200 mg total) by mouth Daily before evening meal Indications: constipation. 0 Active docusate sodium 50 mg / sennosides, longterm 8.6 mg oral tablet (1 source) Start: 11-14-19 take 1 tablet by mouth in the morning sennosides-docusate sodium (SENOKOT-S) 8.6-50 mg Take 1 tablet by mouth in the morning. 60 tablet 0 11/14/2023 Active doxycycline hyclate 100 mg oral capsule (1 source) Tetracycline-class Drug Start: 05-07-20 End: 05-14-20 take 1 capsule by mouth twice daily doxycycline hyclate 100 mg Cap 100 mg = 1 cap(s), Oral, BID, X 7 day(s), # 14 cap(s), Refills(s) 0, Pharmacy: [facility] [id number], 162, cm, 05/07/24 14:07:00 EDT, Height/Length Dosing, 76, kg, 05/07/24 14:07:00 EDT, Weight Dosing Start Date: 05/07/24 Stop Date: 05/14/24 Status: Ordered glucosamine hydrochloride 1500 mg oral tablet (3 sources) Start: 12-02-19 glucosamine hydrochloride 1500 mg oral tablet 1,500 mg, 1 tab(s), Oral, Daily, 30 tab(s), Refill(s) 0 Start Date: 12/01/22 Status: Ordered glucosamine HCl/chondroitin jennings (GLUCOSAMINE-CHONDROI TIN ORAL) (2 sources) take 1 tablet by mouth in the morning glucosamine HCl/chondroitin jennings (GLUCOSAMINE-CHONDROI TIN ORAL) Take 1 tablet by mouth in the morning. joints. 0 Active krill oil 500 mg oral capsule (6 sources) Start: 12-02-19 Krill Oil (Dedham-3) 500 MG capsule Take 500 mg by mouth. 12/01/2022 Active losartan potassium 100 mg oral tablet (9 sources) Angiotensin 2 Receptor Sylvester Start: 05-30-20 take 1 tablet by mouth in the morning losartan (Cozaar) 100 MG tablet Take 100 mg by mouth in the morning. 05/30/2023 Active Start: 12-15-2022 take 1 tablet by silver twice daily losartan 25 mg Tab 25 mg = 1 tab(s), Oral, BID, # 180 tab(s), Refills(s) 0, Pharmacy: [facility] [id number], 162, cm, 05/11/23 9:36:00 EDT, Height/Length Dosing, 74.9, kg, 05/11/23 9:36:00 EDT, Weight Dosing Start Date: 05/11/23 Status: Ordered meloxicam 15 mg oral tablet (5 sources) Nonsteroidal Anti-inflammatory Drug Start: 02-27-2023 End: 11-07-2023 take 1 tablet by mouth once daily as needed meloxicam 15 mg Tab See Instructions, TAKE ONE TABLET BY MOUTH DAILY NEEDED, # 90 tab(s), Refills(s) 0, Pharmacy: [facility] [id number], 162.6, cm, 12/01/22 15:23:00 EDT, Height/Length Dosing, 76.5, kg, 12/01/22 15:23:00 EDT, Weight Dosing Start Date: 02/27/23 Status: Ordered omega-3 acid ethyl esters (longterm) 1000 mg oral capsule (2 sources) take 1 capsule by mouth at bedtime omega-3 acid ethyl esters (LOVAZA) 1 gram capsule Take 2 capsules (2 g total) by mouth in the morning and 2 capsules (2 g total) before bedtime. 0 Active OMEGA-3 ACID ETHYL ESTERS ORAL (2 sources) take 500 mg by mouth once daily OMEGA-3 ACID ETHYL ESTERS ORAL Take 500 mg by mouth nightly. supplement 0 Active psyllium 3400 mg powder for oral suspension (8 sources) End: 08-28-2024 psyllium (Metamucil) 48.57 % powder Orally 08/28/2024 Discontinued take 1 dose by mouth in the morn ing psyllium (METAMUCIL) 3.4 gram packet Indications: constipation Take 1 packet (3.4 g total) by mouth in the morning. Indications: constipation. 0 Active rosuvastatin calcium 20 mg oral tablet (10 sources) HMG-CoA Reductase Inhibitor Start: 12-01-2022 take 1 tablet by mouth once daily rosuvastatin 20 mg Tab See Instructions, TAKE 1 TABLET BY MOUTH DAILY, # 90 tab(s), Refills(s) 4, Pharmacy: [facility] [id number], 162, cm, 09/01/23 11:37:00 EST, Height/Length Dosing, 76, kg, 09/01/23 11:37:00 EST, Weight Dosing Start Date: 02/21/24 Status: Ordered tafluprost 0.015 mg/ml ophthalmic solution (4 sources) Prostaglandin Analog Start: 05-11-2023 take 1 drop(s) into the eye(s) once daily Zioptan 0.0015% ophthalmic solution See Instructions, Refill(s) 0, 1 drop(s) Eye-Right & Left once daily Start Date: 05/11/23 Status: Ordered End: 08-28-2024 Tafluprost, PF, (Zioptan) 0. 0015 % solution Administer 1 drop into affected eye(s) in the morning. 08/28/2024 Discontinued tiZANidine 4 mg oral tablet (1 source) Central alpha-2 Adrenergic Agonist Start: 07-13-2024 tiZANidine 4 mg Tab 12 tab(s), 0 Refill(s), Refills(s) 0 Start Date: 07/13/24 Status: Ordered Vitamin D3 (1 source) Start: 07-30-2024 Vitamin D3 Refills(s) 0 Start Date: 07/30/24 Status: Ordered vitamin e 450 mg oral capsule (10 sources) Start: 12-01-2022 take 1 capsule by mouth once daily vitamin E 450 mg oral capsule See Instructions, take one daily 400mg, Refills(s) 0 Start Date: 12/01/22 Status: Ordered Start: 12-01-2022 alpha tocopher ol (Vitamin E) 1000 units capsule See Instructions, take one daily 400mg, Refills(s) 0 12/01/2022 Active take 1 capsule by nd ut once daily at dinner vitamin E, dl,tocopheryl acet, (vitamin E, dl, acetate,) 180 mg (400 unit) capsule Take 1 capsule (400 Units total) by mouth Daily before evening meal. 0 Active take 1 capsule by mo ut in the morning vitamin E, dl,tocopheryl acet, (vitamin E, dl, acetate,) 100 units Take 1 capsule (100 Units total) by mouth in the morning. 0 Active Completed/Discontinued Medications Medication Drug Class(es) Dates Sig (Normalized) Sig (Original) acetaminophen 500 mg oral tablet (1 source) Start: 11-14-2023 End: 11-29-2023 take 1 tablet by mouth every six hours as needed for pain acetaminophen (TYLENOL EXTRA STRENGTH) 500 mg tablet Take 1 tablet (500 mg total) by mouth every 6 (six) hours as needed for pain. 60 tablet 0 11/14/2023 11/29/2023 Discontinued (Therapy completed) alendronic acid 70 mg oral tablet (4 [...] mouth daily. 0 11/07/2023 Discontinued (Therapy completed) ibuprofen 800 mg oral tablet (1 source) Nonsteroidal Anti-inflammatory Drug Start: 11-14-2023 End: 11-29-2023 take 1 tablet by mouth every six hours as needed for pain ibuprofen (MOTRIN) 800 mg tablet Take 1 tablet (800 mg total) by mouth every 6 (six) hours as needed for pain. 60 tablet 0 11/14/2023 11/29/2023 Discontinued (Therapy completed) omega-3 fatty acids-fish oil [...] 1 g by mouth daily. 0 Active oxyCODONE hydrochloride 5 mg oral tablet (1 source) Opioid Agonist Start: 11-14-2023 End: 11-29-2023 take 1 tablet by mouth every six hours as needed for pain oxyCODONE (ROXICODONE) 5 mg immediate release tablet Indications: Post-operative pain Take 1 tablet (5 mg total) by mouth every 6 (six) hours as needed for pain for up to 12 doses. Max Daily Amount: 20 mg 12 tablet 0 11/14/2023 11/29/2023 Discontinued (Therapy completed) stool softner (1 source) Start: 07-30-2024 stool softner stool softner, 100 mg, Oral, Bedtime, take 2 Start Date: 07/30/24 Status: Ordered Problems Active Problems Problem Classification Problem Date Documented Date Episodic/Chronic Abdominal pain (3 sources) Right sided abdominal pain 05-11-2023 Episodic Chronic kidney disease (2 sources) Chronic kidney disease stage 3A ; Translations: [Chronic kidney disease stage 3B ] 05-30-2023 Chronic Comment on above: Added per Dr. Amor diego response, per outpatient [facility] policy. Deficiency and other anemia (1 source) Anemia 07-30-2024 Episodic Disorders of lipid metabolism (20 sources) Pure hypercholesterolemia, unspecified; Translations: [Hypercholesterolemia ] Onset: 12-27-2016 Chronic Essential hypertension (10 sources) Essential (primary) hypertension; Translations: [Hypertensive disorder] Onset: 11-05-2021 Chronic Heart valve disorders (1 source) Rheumatic disorders of both mitral and tricuspid valves; Translations: [RHEUMATIC D/O MITRAL TRICUSPID VALV] Onset: 10-08-2021 Chronic Hypertension with complications and secondary hypertension (2 sources) Hypertensive renal disease 05-30-2023 Chronic Comment on above: Linked per outpatien t [facility]I policy. Malaise and fatigue (1 source) Fatigue 07-30-2024 Episodic Menopausal disorders (9 sources) Postmenopausal bleeding; Translations: [Postmenopausal bleeding] Onset: 10-27-2023 Resolved: 11-28-2023 05-11-2023 Chronic Osteoarthritis (8 sources) Arthritis; Translations: [Unspecified osteoarthritis, unspecified site] Onset: 12-27-2016 12-27-2016 Chronic Osteoporosis (7 sources) Senile osteoporosis; Translations: [Age-related osteoporosis without current pathological fracture] Onset: 01-31-2023 12-01-2022 Chronic Other aftercare (1 source) Encounter for other specified surgical aftercare; Translations: [Encounter for other specified surgical aftercare] Onset: 11-29-2023 Episodic Other connective tissue disease (4 sources) Pain in left foot; Translations: [PAIN IN LEFT FOOT] Onset: 08-03-2022 Episodic Other connective tissue disease (2 sources) Foot pain 05-30-2023 Episodic Other lower respiratory disease (1 source) Chronic cough 07-30-2024 Episodic Other nervous system disorders (1 source) Other acute postprocedural pain; Translations: [Other acute postprocedural pain] Onset: 11-14-2023 Episodic Other nutritional; endocrine; and metabolic disorders (1 source) Overweight in adulthood with body mass index of 25 or more but less than 30 07-30-2024 Episodic Other screening for suspected conditions (not mental disorders or infectious disease) (6 sources) Endometrium thickened; Translations: [Abnormal findings on diagnostic imaging of other specified body structures] Onset: 10-27-2023 10-27-2023 Chronic Residual codes; unclassified (1 source) Pain, unspecified; Translations: [Pain, unspecified] Onset: 10-19-2023 Episodic Residual codes; unclassified (2 sources) Postmenopausal state; Translations: [Asymptomatic menopausal state] 08-28-2024 Episodic Transient cerebral ischemia (11 sources) Transient cerebral ischemic attack, unspecified; Translations: [Transient cerebral ischemia] Onset: 09-11-2021 Chronic Unclassified (7 sources) Encounter for screening mammogram for malignant neoplasm of breast; Translations: [Patient encounter status] Onset: 09-12-2017 Episodic Unclassified (1 source) THICKENED ENDOMETRUM/POST MENOPAUSAL BLEEDING/CERVICAL STENOSIS Onset: 11-14-2023 Unclassified (1 source) Patient encounter status 08-11-2023 Urinary tract infections (4 sources) Urinary tract infection, site not specified; Translations: [UTI SITE NOT SPECIFIED] Onset: 07-06-2022 Episodic Past or Other Problems Problem Classification Problem Date Documented Da te Episodic/Chronic Cardiac dysrhythmias (4 sources) Palpitations; Translations: [PALPITATIONS] Onset: 09-08-2021 Episodic Deficiency and other anemia (8 sources) Iron deficiency anemia; Translations: [Iron deficiency anemia, unspecified] Onset: 12-27-2016 12-27-2016 Episodic Diabetes mellitus without complication (1 source) Hyperglycemia, unspecified; Translations: [HYPERGLYCEMIA UNSPECIFIED] Onset: 02-11-2022 Episodic Other aftercare (1 source) Postoperative visit; Translations: [Encounter for other specified surgical aftercare] 11-28-2023 Episodic Other and unspecified benign neoplasm (3 sources) History of polyp of colon; Translations: [History of colon polyps] Onset: 02-01-2023 02-01-2023 Episodic Other bone disease and musculoskeletal deformities [...] LNG] Onset: 03-16-2022 Episodic Unclassified (5 sources) Asymptomatic menopausal state; Translations: [Asymptomatic menopausal state] Onset: 09-12-2017 Episodic Results Test Name Value Interpretation Reference Range Facil ity C ANAon 09-13-2024 C KARLEE -- - Pre No anaerobic growth after 48 hrs. Normal [facility] Comment on above: Performed By: #### A NAC #### [place] [id number] C [place]on 09-13-2024 C Wound -- - Final No growth at 48 hours. Normal [facility] Comment on above: Performed By: #### W DC #### [place] [id number] Family Medicine Office/Clini c Noteon 09-11-2024 Family Medicine Office/Clinic Note Family Medicine Office/Clinic Note HPI Staff Isaura is a 74 year old female presenting with a cat bite on right ankle Onset: History of Present Illness Pt was bit 1-2 days before presenting to me. Seen in [facility] who started the patient on Abx. Area improving, but pt wants PCP to look and see if she is on the right medication. Review of Systems PHQ Score Initial Depression Screen Score: 0 SCORE Physical Exam Vitals & Measurements T: 36.5 ???C(Oral) HR: 66(Peripheral) RR: 20 BP: 128/84 SpO2: 100% HT: 64 in HT: 162.0 cm WT: 76.9 kg WT: 169.535 lb BMI: 29.3 Erythema to the Lateral aspect of the R lower leg just about the ankle. Scab formation present. Assessment/Plan 1. Cat bite (W55.01XA: Bitten by cat, initial encounter) Improving. Continue on Abx. Follow up PRN. Precautions discussed in detail. 2. Former smoker (Z87.891: Personal history of nicotine dependence) Please continue to not smoke. Follow-up No qualifying data available Problem List/Past Medical History Ongoing Age-related osteoporosis without current pathological fracture Anemia BMI 28.0-28.9,adult BMI 29.0-29.9,adult Cat bite Chronic cough CKD stage 3a, GFR 45-59 ml/min Fatigue Foot pain, right Hypercholesterolemia Hyperlipidemia Hypertension Hypertensive kidney disease with stage 3a chronic kidney disease Left arm pain Osteoporosis Postmenopause bleeding Right sided abdominal pain TIA (transient ischemic attack) Historical No qualifying data Procedure/Surgical History Hysterectomy (2022), Cholecystectomy, Colonoscopy, Laser. Medications amLODIPine 5 mg Tab, See Instructions amoxicillin-clavulanat e 875 mg-125 mg Tab, 1 tab(s), Oral, q12hr aspirin 81 mg oral capsule, See Instructions calcium-vitamin D, Daily Durysta 10 mcg intraocular implant, IntraOcular, Once glucosamine hydrochloride 1500 mg oral tablet, 1500 mg= 1 tab(s), Oral, Daily losartan 100 mg Tab, 100 mg= 1 tab(s), Oral, Daily, 4 refills omega-3 polyunsaturated fatty acids 500 mg oral capsule, 500 mg= 1 cap(s), Oral, Daily Prolia, SubCutaneous, q6mo rosuvastatin 20 mg Tab, See Instructions, 4 refills stool softner, 100 mg, Oral, Bedtime Vitamin D3 vitamin E 450 mg oral capsule, See Instructions Allergies Dilaudid (Unknown) Social History Alcohol Current, Wine, 3-5 times per week, 07/30/2024 Substance Abuse Never, Previous treatment: None., 07/30/2024 Tobacco Never (less than 100 in lifetime) Tobacco Use:. Never Smokeless Tobacco Use:. Household tobacco concerns: No. Yes, 09/10/2024 Family History Family history is negative Immunizations Vaccine Date Status Comments influenza virus vaccine, inactivated - Not Given Parent Or Guardian Refuses influenza virus vaccine, inactivated - Not Given [...] Recorded pneumococcal 23-valent vaccine 06/25/2008 Recorded Normal [facility] Comment on above: Result Comment: Elec tronically Signed By: Anamaria Chinchilla MD\.br\Date and Time Signed: 09/11/24 12:15 EST OR Trackon 09-11-2024 Specimens Received From [facility] Comment on above: Performed By: #### [facility] Tracking Order #### [facility] [address] [place] [address] Ambulatory Visit Summaryon 0 09-10-2024 Ambulatory Visit Summary Ambulatory Visit Summary ISAURA HAYDEN Alonzo :1950 Visit Date:09/10/2024 Ambulatory Visit Instructions Your Diagnosis Cat bite Former smoker BMI 24.0-24.9, adult Your Care Team Attending Physician - Anamaria Chinchilla MD Primary Care Physician - Anamaria Chinchilla MD This Is Your Medications List Non-Formulary Medication (stool softner) amlodipine (amLODIPine 5 mg Tab) amoxicillin-clavulanat e (amoxicillin-clavulana te 875 mg-125 mg Tab) aspirin (aspirin 81 mg oral capsule) bimatoprost ophthalmic (Durysta 10 mcg intraocular implant) calcium-vitamin D cholecalciferol (Vitamin D3) denosumab (Prolia) glucosamine (glucosamine hydrochloride 1500 mg oral tablet) losartan (losartan 100 mg Tab) omega-3 polyunsaturated fatty acids (omega-3 polyunsaturated fatty acids 500 mg oral capsule) rosuvastatin (rosuvastatin 20 mg Tab) vitamin E (vitamin E 450 mg oral capsule) Procedures Performed Hysterectomy (2022), Cholecystectomy, Colonoscopy, Laser. Discharge Vitals Temperature (Oral) 36.5 ???C Heart Rate (Peripheral) 66 Respiratory Rate 20 Blood Pressure 128/84 Height 162.0 cm Height 64 in Weight 76.9 kg Weight 169.535 lb BMI 29.3 What to do next Scheduled Follow-Up Appointments Tuesday 8:45 AM EDT With: Amor SHORT, Anamaria Harvey Where: [address] [address] 2024 11:00 AM EST With: Where: [address] [address]- Medications What How Much When Instructions Unchanged amlodipine (amLODIPine 5 mg Tab) See instructions TAKE 1 TABLET BY MOUTH DAILY Unchanged amoxicillin-clavulanat e (amoxicillin-clavulana te 875 mg-125 mg Tab) 1 Tablets By Mouth Every 12 hours Duration: 10 Days Unchanged aspirin (aspirin 81 mg oral capsule) See instructions 1 cap(s) Oral every other day Unchanged bimatoprost ophthalmic (Durysta 10 mcg intraocular implant) Intraocular Once Unchanged calcium-vitamin D Every day Unchanged cholecalciferol (Vitamin D3) Unchanged denosumab (Prolia) Subcutaneous Every 6 months Unchanged glucosamine (glucosamine hydrochloride 1500 mg oral tablet) 1 Tablets By Mouth Every day Unchanged losartan (losartan 100 mg Tab) 1 Tablets By Mouth Every day Unchanged Non-Formulary Medication (stool softner) 100 Milligram By Mouth At bedtime take 2 Unchanged omega-3 polyunsaturated fatty acids (omega-3 polyunsaturated fatty acids 500 mg oral capsule) 1 Capsules By Mouth Every day Unchanged rosuvastatin (rosuvastatin 20 mg Tab) See instructions TAKE 1 TABLET BY MOUTH DAILY Unchanged vitamin E (vitamin E 450 mg oral capsule) See instructions take one daily 400mg Allergies Dilaudid (Unknown) Problems Ongoing - Any problem that you are currently receiving treatment for. Age-related osteoporosis without current pathological fracture Anemia BMI 28.0-28.9,adult BMI 29.0-29.9,adult Cat bite Chronic cough CKD stage 3a, GFR 45-59 ml/min Fatigue Foot pain, right Hypercholesterolemia Hyperlipidemia Hypertension Hypertensive kidney disease with stage 3a chronic kidney disease Left arm pain Osteoporosis Postmenopause bleeding Right sided abdominal pain TIA (transient ischemic attack) Patient Survey You may receive a survey via text or e-mail asking about your office visit. Please share your experience with us by completing your survey. We appreciate your feedback and thank you for choosing us for your care. Normal [facility] Ambulatory Visit Summaryon 0 08-27-2024 Ambulatory Visit Summary Ambulatory Visit Summary ISAURA HAYDEN :1950 Visit Date:08/27/2024 Ambulatory Visit Instructions Your Diagnosis Left arm pain CKD stage 3a, GFR 45-59 ml/min BMI 29.0-29.9,adult Age-related osteoporosis without current pathological fracture Your Care Team Attending Physician - Anamaria Chinchilla MD Primary Care Physician - Anamaria Chinchilla MD This Is Your Medications List Contact prescribing physician if questions or concerns Non-Formulary Medication (stool softner) amlodipine (amLODIPine 5 mg Tab) aspirin (aspirin 81 mg oral capsule) bimatoprost ophthalmic (Durysta 10 mcg intraocular implant) calcium-vitamin D cholecalciferol (Vitamin D3) denosumab (Prolia) glucosamine (glucosamine hydrochloride 1500 mg oral tablet) losartan (losartan 100 mg Tab) omega-3 polyunsaturated fatty acids (omega-3 polyunsaturated fatty acids 500 mg oral capsule) rosuvastatin (rosuvastatin 20 mg Tab) vitamin E (vitamin E 450 mg oral capsule) Procedures Performed Hysterectomy (2022), Cholecystectomy, Colonoscopy, Laser. Discharge Vitals Temperature (Tympanic) 36.4 ???C Heart Rate (Peripheral) 68 Respiratory Rate 18 Blood Pressure 128/76 Height 162 cm Height 64 in Weight 77.4 kg Weight 170.638 lb BMI 29.49 What to do next Scheduled Follow-Up Appointments Tuesday 8:45 AM EDT With: Anamaria Chinchilla MD Where: [address] [address] 11:00 AM EST With: Where: [facility] Medicine [address] [address]- Medications What How Much When Instructions Unchanged amlodipine (amLODIPine 5 mg Tab) See instructions TAKE 1 TABLET BY MOUTH DAILY Contact prescribing physician if questions or concerns Unchanged aspirin (aspirin 81 mg oral capsule) See instructions 1 cap(s) Oral every other day Contact prescribing physician if questions or concerns Unchanged bimatoprost ophthalmic (Durysta 10 mcg intraocular implant) Intraocular Once Contact prescribing physician if questions or concerns Unchanged calcium-vitamin D Every day Contact prescribing physician if questions or concerns Unchanged cholecalciferol (Vitamin D3) Contact prescribing physician if questions or concerns Unchanged denosumab (Prolia) Subcutaneous Every 6 months Contact prescribing physician if questions or concerns Unchanged glucosamine (glucosamine hydrochloride 1500 mg oral tablet) 1 Tablets By Mouth Every day Contact prescribing physician if questions or concerns Unchanged losartan (losartan 100 mg Tab) 1 Tablets By Mouth Every day Contact prescribing physician if questions or concerns Unchanged Non-Formulary Medication (stool softner) 100 Milligram By Mouth At bedtime take 2 Contact prescribing physician if questions or concerns Unchanged omega-3 polyunsaturated fatty acids (omega-3 polyunsaturated fatty acids 500 mg oral capsule) 1 Capsules By Mouth Every day Contact prescribing physician if questions or concerns Unchanged rosuvastatin (rosuvastatin 20 mg Tab) See instructions TAKE 1 TABLET BY MOUTH DAILY Contact prescribing physician if questions or concerns Unchanged vitamin E (vitamin E 450 mg oral capsule) See instructions take one daily 400mg Contact prescribing physician if questions or concerns Allergies Dilaudid (Unknown) Problems Ongoing - Any problem that you are currently receiving treatment for. Age-related osteoporosis without current pathological fracture Anemia BMI 28.0-28.9,adult BMI 29.0-29.9,adult Chronic cough CKD stage 3a, GFR 45-59 ml/min Fatigue Foot pain, right Hypercholesterolemia Hyperlipidemia Hypertension Hypertensive kidney disease with stage 3a chronic kidney disease Left arm pain Osteoporosis Postmenopause bleeding Right sided abdominal pain TIA (transient ischemic attack) Patient Survey You may receive a survey via text or e-mail asking about your office visit. Please share your experience with us by completing your survey. We appreciate your feedback and thank you for choosing us for your care. Normal [facility] Family Medicine Office/Clini c Noteon 08-27-2024 Family Medicine Office/Clinic Note Family Medicine Office/Clinic Note Chief Complaint Pain HPI Staff Pt presents today due to Lt upper arm pain. Pain characteristics: Pain location: Lt upper arm Intensity:_sharp pain Onset: Thanksgiving Medication used: Ibuprofen History of Present Illness See staff HPI. Patient states she has no cause for the pain. Patient is worried about a stress fracture as she has 2 stress fractures in her feet. Review of Systems PHQ Score Initial Depression Screen Score: 0 SCORE Physical Exam Vitals & Measurements T: 36.4 ???C(Tympanic) HR: 68(Peripheral) RR: 18 BP: 128/76 SpO2: 99% HT: 64 in HT: 162 cm WT: 77.4 kg WT: 170.638 lb BMI: 29.49 General: alert, no acute distress ENMT: oral mucosa moist, Cardiovascular: regular rate and rhythm, normal peripheral perfusion Respiratory: Lungs CTA, respirations non labored Extremities: no deformity, no trauma Neurological: oriented x 4, LOC appropriate for age, CN II-XII intact, motor strength equal & normal bilaterally, speech normal Abdomen: Soft, Nontender, Non-distended, + BS Assessment/Plan 1. Left arm pain (M79.602: Pain in left arm) Will send to ortho for this. Follow up PRN Ordered: [facility] [place] 2. CKD stage 3a, GFR 45-59 ml/min (N18.31: Chronic kidney disease, stage 3a) Improved on last lab work. Follow up PRN Ordered: A1c POC [id number] [facility] [place] 3. BMI 29.0-29.9,adult (Z68.29: Body mass index [BMI] 29.0-29.9, adult) BMI education added Ordered: [facility] [place] Ref[place] 4. Age-related osteoporosis without current pathological fracture (M81.0: Age-related osteoporosis without current pathological fracture) Reviewed Labs and Dexa. Prolia does not seem to be helping. Follows with Dr. Das. Ordered: [facility] [place] Referral Follow-up No qualifying data available Problem List/Past Medical History Ongoing Age-related osteoporosis without current pathological fracture Anemia BMI 28.0-28.9,adult BMI 29.0-29.9,adult Chronic cough CKD stage 3a, GFR 45-59 ml/min Fatigue Foot pain, right Hypercholesterolemia Hyperlipidemia Hypertension Hypertensive kidney disease with stage 3a chronic kidney disease Left arm pain Osteoporosis Postmenopause bleeding Right sided abdominal pain TIA (transient ischemic attack) Historical No qualifying data Procedure/Surgical History Hysterectomy (2022), Cholecystectomy, Colonoscopy, Laser. Medications amLODIPine 5 mg Tab, See Instructions aspirin 81 mg oral capsule, See Instructions calcium-vitamin D, Daily Durysta 10 mcg intraocular implant, IntraOcular, Once glucosamine hydrochloride 1500 mg oral tablet, 1500 mg= 1 tab(s), Oral, Daily losartan 100 mg Tab, 100 mg= 1 tab(s), Oral, Daily, 4 refills omega-3 polyunsaturated fatty acids 500 mg oral capsule, 500 mg= 1 cap(s), Oral, Daily Prolia, SubCutaneous, q6mo rosuvastatin 20 mg Tab, See Instructions, 4 refills stool softner, 100 mg, Oral, Bedtime Vitamin D3 vitamin E 450 mg oral capsule, See Instructions Allergies Dilaudid (Unknown) Social History Alcohol Current, Wine, 3-5 times per week, 07/30/2024 Substance Abuse Never, Previous treatment: None., 07/30/2024 Tobacco Never (less than 100 in lifetime) Tobacco Use:. Never Smokeless Tobacco Use:. Household tobacco concerns: No. Yes, 08/27/2024 Family History Family history is negative Immunizations Vaccine Date Status Comments influenza virus vaccine, inactivated - Not Given Parent Or Guardian Refuses influenza virus vaccine, inactivated - Not Given [...] 05/17/2011 Recorded pneumococcal 23-valent vaccine 06/25/2008 Recorded Lab Results Ambulatory Point of Care Results Hgb A1c POC: 5.2 % (08/27/24 12:02:00) Normal [facility] Comment on above: Result Comment: Elec tronically Signed By: Amor SHORT, Anamaria E.\.br\Date and Time Signed: 08/27/24 12:03 EST CBC w/ Auto Diffon 4 Basophils/100 WBC (Bld) 0.7 % Normal 0.0-2.[address] [facility] Comment on above: Performed By: #### 2 [id number] #### [facility] [address] [place] [address] Basophils/Leukocyte s Auto (Bld) [Pure # fraction] 0.1 E9/L Normal 0.0-0.[address] [facility] Comment on above: Performed By: #### 2 [id number] #### [facility] [address] [place] [address] Eosinophils (Bld) [#/Vol] 0.3 E9/L Normal 0.0-0.[address] [facility] Comment on above: Performed By: #### 2 [id number] #### [facility] [address] [place] [address] Eosinophils/100 WBC (Bld) 3.2 % Normal 0.0-8.[address] [facility] Comment on above: Performed By: #### 2 [id number] #### [facility] [address] [place] [address] Erythrocyte distribution width (RBC) [Ratio] 13.7 % Normal 10.9-14.[address] [facility] Comment on above: Performed By: #### 2 [id number] #### [facility] [address] [place] [address] Hematocrit (Bld) [Volume fraction] 36.1 % Normal 34.0-46.[address] [facility] Comment on above: Performed By: #### 2 [id number] #### [facility] [address] [place] [address] Hemoglobin (Bld) [Mass/Vol] 12.3 g/dL Normal 12.0-16.[address] [facility] Comment on above: Performed By: #### 2 [id number] #### [facility] [address] [place] [address] Lymphocytes (Bld) [#/Vol] 1.7 E9/L Normal 1.0-4.[address] [facility] Comment on above: Performed By: #### 2 [id number] #### [facility] [address] [place] [address] Lymphocytes/100 WBC (Bld) 20.6 % Normal 14.0-50.[address] [facility] Comment on above: Performed By: #### 2 [id number] #### [facility] [address] [place] [address] MCH (RBC) [Entitic mass] 33.6 pg Normal 27.0-34.[address] [facility] Comment on above: Performed By: #### 2 [id number] #### [facility] [address] [place] [address] MCHC (RBC) [Mass/Vol] 34.1 g/dL Normal 31.4-36.[address] [facility] Comment on above: Performed By: #### 2 [id number] #### [facility] [address] [place] [address] MCV (RBC) [Entitic vol] 98.7 fL Normal 80.0-100.[address] [facility] Comment on above: Performed By: #### 2 [id number] #### [facility] [address] [place] [address] Monocytes (Bld) [#/Vol] 0.6 E9/L Normal 0.2-1.[address] [facility] Comment on above: Performed By: #### 2 [id number] #### [facility] [address] [place] [address] Neutrophils (Bld) [#/Vol] 5.8 E9/L Normal 2.0-7.[address] [facility] Comment on above: Performed By: #### 2 [id number] #### [facility] [address] [place] [address] Neutrophils/100 WBC (Bld) 68.8 % Normal 36.0-75.[address] [facility] Comment on above: Performed By: #### 2 [id number] #### [facility] [address] [place] [address] [place] [address] Platelet 304.0 E9/L Normal 150.0-500.[address] [facility] Comment on above: Performed By: #### 2 [id number] #### [facility] [address] [place] [address] Platelet mean volume (Bld) [Entitic vol] 8.4 fL Normal 6.4-10.[address] [facility] Comment on above: Performed By: #### 2 [id number] #### [facility] [address] [place] [address] RBC (Bld) [#/Vol] 3.7 E12/L Low 4.3-5.[address] [facility] Comment on above: Performed By: #### 2 [id number] #### [facility] [address] [place] [address] WBC corrected for nucl RBC Auto (Bld) [#/Vol] 8.5 E9/L Normal 4.0-11.[address] [facility] Comment on above: Performed By: #### 2 [id number] #### [facility] [address] [place] [address] CHEMISTRYOrdered By: SYSTEM SYSTEM on 08-09-2024 25-hydroxyvitamin D3 [Mass/Vol] 36.9 ng/mL Normal 30.0 - 100.0 ng/mL Remisol Chem Albumin [Mass/Vol] 4.4 g/dL Normal 3.3 - 5.0 gm/dL R emisol Chem Albumin/Globulin [Mass ratio] 1.6 {ratio} Normal 1.1 - 2.2 Rem[facility] Chem ALP [Catalytic activity/Vol] 52 [iU]/d Normal 21 - 98 Int._Unit/L Remisol Chem ALT No additional P-5'-P [Catalytic activity/Vol] 14 [iU]/d Normal 6 - 46 Int._Unit/L Remisol Chem Anion gap [Moles/Vol] 11 mmol/L Normal 6 - 16 mEq/L [facility] Chem AST [Catalytic activity/Vol] 18 [iU]/d Normal 5 - 43 Int._Unit/L Remisol Chem Bilirubin [Mass/Vol] 0.9 mg/dL Normal 0.0 - 1.1 mg/dL [facility] Chem Calcium [Mass/Vol] 8.9 mg/dL Normal 8.9 - 11.1 mg/dL [facility] Chem Chloride [Moles/Vol] 107 mmol/L Normal 101 - 111 mmol/L Rem[facility] Chem Cholesterol [Mass/Vol] 208 mg/dL High 120 - 200 mg/dL [facility] Chem Cholesterol in HDL [Mass/Vol] 64 mg/dL Invalid Interpretation Code [facility] Chem Comment on above: Result Comment: '>= 60 LOW RISK' '<= 40 HIGH RISK' Cholesterol in LDL [Mass/Vol] 104 mg/dL Normal <=129mg/dL [facility] Chem Cholesterol in VLDL [Mass/Vol] 36 mg/dL Normal 7 - 40 mg/dL [facility] Chem CO2 [Moles/Vol] 27 mmol/L Normal 21 - 31 mmol/L Remis ol Chem Cobalamin (Vitamin B12) [Mass/Vol] 253 pg/mL Normal 50 - 1500 pg/mL Rem[facility] Chem Creatinine [Mass/Vol] 1.1 mg/dL Normal 0.5 - 1.3 mg/dL [facility] Chem eGFR 53 mL/min/1.73 m2 Low >=59mL/min /1.73 m2 Rem[facility] Chem Globulin (S) [Mass/Vol] 2.8 g/dL Normal 1.4 - 4.0 gm/dL [facility] Chem Glucose [Mass/Vol] 105 mg/dL Normal 55 - 199 mg/dL Re misol Chem Potassium [Moles/Vol] 4.1 mmol/L Normal 3.5 - 5.3 mmol/L Remisol Chem Protein [Mass/Vol] 7.2 g/dL Normal 6.0 - 7.8 gm/dL R emisol Chem Sodium [Moles/Vol] 141 mmol/L Normal 135 - 145 mmol/L [facility] Chem Triglyceride [Mass/Vol] 182 mg/dL High <=149mg/dL Rem[facility] Chem TSH Qn 2.85 m[IU]/L Normal 0.34 - 5.60 mcIU/mL Rem[facility] Chem Urea nitrogen [Mass/Vol] 15 mg/dL Normal 5 - 21 mg/dL [facility] Chem Urea nitrogen/Creatinine [Mass ratio] 14 mg/mg Normal 10 - 20 [facility] CHEMISTRYOrdered By: Nato bojorquez on 08-09-2024 Albumin DL <= 20 mg/L (U) [Mass/Vol] mg/dL Normal 0.0 - 1.9 mg/dL Rem[facility] Chem Albumin/Creatinine DL <= 20 mg/L (U) [Mass ratio] NOT CALCULATED Invalid Interpretation Code 0.0 - 30.0 [facility] Comment on above: Interpretive Data: 3 0-300 mg/g Cr indicates an increased risk for diabetic nephropathy. >300 mg/g Cr is consistent with clinical nephropathy. U Creatinine 127.3 mg/dL Invalid Interpretation Code Remisol Chem CMPon 08-09-2024 Albumin [Mass/Vol] 4.4 g/dL Normal 3.3-5.[address] [facility] Comment on above: Performed By: #### 2 [id number] #### [facility] [address] [place] [address] Albumin/Globulin (S) [Mass conc ratio] 1.6 Normal 1.1-2.[address] [facility] Comment on above: Performed By: #### 2 [id number] #### [facility] [address] [place] [address] ALP [Catalytic activity/Vol] 52 Int._Unit/L Normal 21-[address] [facility] Comment on above: Performed By: #### 2 [id number] #### [facility] [address] [place] [address] ALT No additional P-5'-P [Catalytic activity/Vol] 14 Int._Unit/L Normal 6-[address] [facility] Comment on above: Performed By: #### 2 [id number] #### [facility] [address] [place] [address] Anion gap [Moles/Vol] 11 mmol/L Normal 6-[address] [facility] Comment on above: Performed By: #### 2 [id number] #### [facility] [address] [place] [address] AST [Catalytic activity/Vol] 18 Int._Unit/L Normal 5-[address] [facility] Comment on above: Performed By: #### 2 [id number] #### [facility] [address] [place] [address] Bilirubin [Mass/Vol] 0.9 mg/dL Normal 0.0-1.[address] [facility] Comment on above: Performed By: #### 2 [id number] #### [facility] [address] [place] [address] Calcium [Mass/Vol] 8.9 mg/dL Normal 8.9-11.[address] [facility] Comment on above: Performed By: #### 2 [id number] #### [facility] [address] [place] [address] Chloride [Moles/Vol] 107 mmol/L Normal 101-[address] [facility] Comment on above: Performed By: #### 2 [id number] #### [facility] [address] [place] [address] CO2 [Moles/Vol] 27 mmol/L Normal 21-[address] [facility] Comment on above: Performed By: #### 2 [id number] #### [facility] [address] [place] [address] Creatinine [Mass/Vol] 1.1 mg/dL Normal 0.5-1.[address] [facility] Comment on above: Performed By: #### 2 [id number] #### [facility] [address] [place] [address] Globulin (S) [Mass/Vol] 2.8 g/dL Normal 1.4-4.[address] [facility] Comment on above: Performed By: #### 2 [id number] #### [facility] [address] [place] [address] Glucose [Mass/Vol] 105 mg/dL Normal 55-[address] [facility] Comment on above: Performed By: #### 2 [id number] #### [facility] [address] [place] [address] Potassium [Moles/Vol] 4.1 mmol/L Normal 3.5-5.[address] [facility] Comment on above: Performed By: #### 2 [id number] #### [facility] [address] [place] [address] Protein [Mass/Vol] 7.2 g/dL Normal 6.0-7.[address] [facility] Comment on above: Performed By: #### 2 [id number] #### [facility] [address] [place] [address] Sodium [Moles/Vol] 141 mmol/L Normal 135-[address] [facility] Comment on above: Performed By: #### 2 [id number] #### [facility] [address] [place] [address] Urea nitrogen [Mass/Vol] 15 mg/dL Normal 5-[address] [facility] Comment on above: Performed By: #### 2 [id number] #### [facility] [address] [place] [address] Urea nitrogen/Creatinine [Mass ratio] 14 No Units Normal 10-[address] [facility] Comment on above: Performed By: #### 2 [id number] #### [facility] [address] [place] [address] HEMATOLOGYOrdered By: SYSTEM SYSTEM on 08-09-2024 Basophils/100 WBC (Bld) 0.7 % Normal 0.0 - 2.0 % Remisol Heme Basophils/Leukocyte s Auto (Bld) [Pure # fraction] 0.1 E9/L Normal 0.0 - 0.2 E9/L Remisol Heme Eosinophils (Bld) [#/Vol] 0.3 E9/L Normal 0.0 - 0.5 E9/L Remisol Heme Eosinophils/100 WBC (Bld) 3.2 % Normal 0.0 - 8.0 % Remisol Heme Erythrocyte distribution width (RBC) [Ratio] 13.7 % Normal 10.9 - 14.2 % Remisol Heme Hematocrit (Bld) [Volume fraction] 36.1 % Normal 34.0 - 46.0 % Remisol Heme Hemoglobin (Bld) [Mass/Vol] 12.3 g/dL Normal 12.0 - 16.0 gm/dL Remisol Heme Lymphocytes (Bld) [#/Vol] 1.7 E9/L Normal 1.0 - 4.0 E9/L Remisol Heme Lymphocytes/100 WBC (Bld) 20.6 % Normal 14.0 - 50.0 % Remisol Heme MCH (RBC) [Entitic mass] 33.6 pg Normal 27.0 - 34.0 pg Remisol Heme MCHC (RBC) [Mass/Vol] 34.1 g/dL Normal 31.4 - 36.0 gm/dL Remisol Heme MCV (RBC) [Entitic vol] 98.7 fL Normal 80.0 - 100.0 fL Remisol Heme Monocytes (Bld) [#/Vol] 0.6 E9/L Normal 0.2 - 1.0 E9/L Remisol Heme Monocytes/100 WBC (Bld) 6.7 % Normal 4.0 - 14.0 % Remisol Heme Neutrophils (Bld) [#/Vol] 5.8 E9/L Normal 2.0 - 7.5 E9/L Remisol Heme Neutrophils/100 WBC (Bld) 68.8 % Normal 36.0 - 75.0 % Remisol Heme Platelet 304.0 E9/L Normal 150.0 - 500.0 E9/L Remisol Heme Platelet mean volume (Bld) [Entitic vol] 8.4 fL Normal 6.4 - 10.8 fL Remisol Heme RBC (Bld) [#/Vol] 3.7 E12/L Low 4.3 - 5.9 E12/L Re misol Heme WBC corrected for nucl RBC Auto (Bld) [#/Vol] 8.5 E9/L Normal 4.0 - 11.0 E9/L Remisol Heme Lipid Panelon 08-09-2024 Cholesterol [Mass/Vol] 208 mg/dL High 120-[address] [facility] Comment on above: Performed By: #### 2 [id number] #### [facility] [address] [place] [address] Cholesterol in HDL [Mass/Vol] 64 mg/dL Invalid Interpretation Code [facility] Comment on above: Result Comment: '>= 60 LOW RISK' '<= 40 HIGH RISK' Performed By: #### 2 [id number] #### [facility] [address] [place] [address] Cholesterol in LDL [Mass/Vol] 104 mg/dL Normal <=[address] [facility] Comment on above: Performed By: #### 2 [id number] #### [facility] [address] [place] [address] Cholesterol in VLDL [Mass/Vol] 36 mg/dL Normal 7-[address] [facility] Comment on above: Performed By: #### 2 [id number] #### [facility] [address] [place] [address] Triglyceride [Mass/Vol] 182 mg/dL High <=[address] [facility] Comment on above: Performed By: #### 2 [id number] #### [facility] [address] [place] [address] TSH With T4fr Reflexon 08-09 TSH Qn 2.85 m[IU]/L Normal 0.34-5.[address] [facility] Comment on above: Performed By: #### 1 [id number] #### [facility] [address] [place] [address] U MA/Cr Ratioon 08-09-2024 Albumin DL <= 20 mg/L (U) [Mass/Vol] mg/dL Normal 0.0-1.[address] [facility] Comment on above: Performed By: #### 1 [id number] #### [facility] [address] [place] [address] Albumin/Creatinine DL <= 20 mg/L (U) [Mass ratio] NOT CALCULATED Invalid Interpretation Code .0-30.[address] [facility] Comment on above: Result Comment: 30-3 00 mg/g Cr indicates an increased risk for diabetic nephropathy. >300 mg/g Cr is consistent with clinical nephropathy. Performed By: #### 1 [id number] #### [facility] [address] [place] [address] U Creatinine 127.3 mg/dL Invalid Interpretation Code [facility] Comment on above: Performed By: #### 1 [id number] #### [facility] [address] [place] [address] Vit B12on 08-09-2024 Cobalamin (Vitamin B12) [Mass/Vol] 253 pg/mL Normal 50-[address] [facility] Comment on above: Performed By: #### [id number] #### [facility] [address] [place] [address] Vitamin D 25 Hydroxyon 08-09 25-hydroxyvitamin D3 [Mass/Vol] 36.9 ng/mL Normal 30.0-100.[address] [facility] Comment on above: Performed By: #### 5 [id number] #### [facility] [address] [place] [address] eGFRon 08-09-2024 eGFR 53 mL/min/1.73 m2 Low >=[address] [facility] Comment on above: Performed By: #### 1 [id number] #### [facility] [address] [place] [address] Ambulatory Visit Summaryon 1 10-08-2023 Ambulatory Visit Summary Ambulatory Visit Summary ISAURA HAYDEN :1950 Visit Date:07/30/2024 Ambulatory Visit Instructions Your Diagnosis Encounter for Medicare annual examination with abnormal findings Hyperlipidemia Hypertension Immunization refused CKD stage 3b, GFR 30-44 ml/min Hypertensive kidney disease with stage 3a chronic kidney disease Overweight Chronic kidney disease, stage 3a Your Care Team Attending Physician - Anamaria Chinchilla MD. Primary Care Physician - Anamaria Chinchilla MD. This Is Your Medications List Non-Formulary Medication (stool softner) amlodipine (amLODIPine 5 mg Tab) aspirin (aspirin 81 mg oral capsule) benzonatate (benzonatate 200 mg oral capsule) bimatoprost ophthalmic (Durysta 10 mcg intraocular implant) calcium-vitamin D cholecalciferol (Vitamin D3) denosumab (Prolia) glucosamine (glucosamine hydrochloride 1500 mg oral tablet) losartan (losartan 100 mg Tab) omega-3 polyunsaturated fatty acids (omega-3 polyunsaturated fatty acids 500 mg oral capsule) rosuvastatin (rosuvastatin 20 mg Tab) tizanidine (tiZANidine 4 mg Tab) vitamin E (vitamin E 450 mg oral capsule) Procedures Performed Hysterectomy (2022), Cholecystectomy, Colonoscopy, Laser. Discharge Vitals Heart Rate (Peripheral) 67 Respiratory Rate 16 Blood Pressure 142/78 Height 162 cm Height 64 in Weight 75.8 kg Weight 167.11 lb BMI 28.88 What to do next Scheduled Follow-Up Appointments 2023 8:40 AM EST With: Where: [address] [address]- Tuesday 8:45 AM EDT With: Amor SHORT, Anamaria Harvey Where: [address] [address]- 2024 11:00 AM EST With: Where: [address] [address]- You Need to Complete the Following CBC w/ Auto Diff, Blood, Routine collect, 07/30/24, Order for future visit, Lab Collect, Osteoporosis Hypercholesterolemia Hyperlipidemia Hypertension CKD stage 3b, GFR 30-44 ml/min Foot pain, right Fatigue Anemia, Not Required, Print Label By Order Location TSH With T4fr Reflex, Blood, Routine collect, 07/30/24, Order for future visit, Lab Collect, Osteoporosis Hypercholesterolemia Hyperlipidemia Hypertension CKD stage 3b, GFR 30-44 ml/min Foot pain, right Fatigue Anemia, Required & Missing, Print Label By Order... Vitamin B12 Level, Blood, Routine collect, 07/30/24, Order for future visit, Lab Collect, Osteoporosis Hypercholesterolemia Hyperlipidemia Hypertension CKD stage 3b, GFR 30-44 ml/min Foot pain, right Fatigue Anemia, Not Required, Print Label By Order Location Vitamin D 25 Hydroxy, Blood, Routine collect, 07/30/24, Order for future visit, Lab Collect, Osteoporosis Hypercholesterolemia Hyperlipidemia Hypertension CKD stage 3b, GFR 30-44 ml/min Foot pain, right Fatigue Anemia, Not Required, Print Label By Order Location Medications What How Much When Why Instructions Unchanged amlodipine (amLODIPine 5 mg Tab) See instructions TAKE 1 TABLET BY MOUTH DAILY Unchanged aspirin (aspirin 81 mg oral capsule) See instructions 1 cap(s) Oral every other day Unchanged benzonatate (benzonatate 200 mg oral capsule) 1 Capsules By Mouth 3 times a day Osteoporosis Hypercholesterolemia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 no weakness Psychiatric: no sleeping problems, no irritability, no mood swings/depression. Additional ROS info: Except as noted in the above Review of Systems and in the History of Present Illness all other systems have been reviewed and are negative or noncontributory. Physical Exam Vitals & Measurements T: 36.8 ???C(Oral) HR: 70(Peripheral) RR: 18 BP: 124/82 SpO2: 97% HT: 64 in HT: 162.0 cm WT: 75.9 kg WT: 167.331 lb BMI: 28.92 General: alert, no acute distress ENMT: TM's clear, oral mucosa moist, no pharyngeal erythema or exudate Cardiovascular: regular rate and rhythm, normal peripheral perfusion Respiratory: Lungs CTA, respirations non labored Extremities: no deformity, no trauma Neurological: oriented x 4, LOC appropriate for age speech normal Assessment/Plan 1. Sore throat (J02.9: Acute pharyngitis, unspecified) POC strep negative today Encouraged saline gargles or throat lozenges Recommend OTC loratadine as needed f/u if no improve,ent in 3-5 days Ordered: Rapid Strep POC 65981 Follow-up No qualifying data available Patient Education Pharyngitis, Pnih-iw-Ckmx Problem List/Past Medical History Ongoing Age-related osteoporosis without current pathological fracture Chronic kidney disease, stage 3a Foot pain, right Hypercholesterolemia Hyperlipidemia Hypertension Hypertensive kidney disease with stage 3a chronic kidney disease Postmenopause bleeding Pre-op exam Right sided abdominal pain TIA (transient ischemic attack) Historical No qualifying data Procedure/Surgical History Hysterectomy (2022), Cholecystectomy, Colonoscopy, Laser. Medications amLODIPine 5 mg Tab, See Instructions aspirin 81 mg oral capsule, See Instructions aspirin 81 mg Oral EC Tab calcium-vitamin D, Daily Durysta 10 mcg intraocular implant, IntraOcular, Once glucosamine hydrochloride 1500 mg oral tablet, 1500 mg= 1 tab(s), Oral, Daily Keflex 500 mg Cap, 500 mg= 1 cap(s), Oral, q12hr losartan 100 mg Tab, 100 mg= 1 tab(s), Oral, Daily, 4 refills Norvasc 5 mg Tab omega-3 polyunsaturated fatty acids 500 mg oral capsule, 500 mg= 1 cap(s), Oral, Daily rosuvastatin 20 mg Tab, See Instructions, 4 refills tiZANidine 4 mg Tab vitamin E 450 mg oral capsule, See Instructions Allergies Dilaudid (Unknown) atorvastatin (Unknown) pyrilamine (Unknown) Social History Alcohol Wine, 3-5 times per week, Household alcohol concerns: No., 05/30/2023 Tobacco Never (less than 100 in lifetime) Tobacco Use:. Never Smokeless Tobacco Use:. Household tobacco concerns: No., 07/13/2024 Family History Family history is negative Immunizations Vaccine Date Status Comments influenza virus vaccine, inactivated - Not Given Postpone due to refusal SARS-CoV-2 mRNA (toandresn 5y-11y) vac - Not Given Postpone due to refusal pneumococcal 23-valent vaccine 07/24/2019 Recorded pneumococcal 13-valent vaccine 07/21/2018 Recorded hepatitis A adult vaccine 11/08/2016 Recorded hepatitis A adult vaccine 05/05/2016 Recorded influenza virus vaccine, inactivated 07/12/2014 Recorded influenza virus vaccine, inactivated 06/05/2013 Recorded influenza virus vaccine, inactivated 05/18/2012 Recorded influenza virus vaccine, inactivated 05/17/2011 Recorded pneumococcal 23-valent vaccine 06/25/2008 Recorded Lab Results Ambulatory Point of Care Results Rapid Strep POC Result: Negative (07/13/24 11:52:00) Normal [facility] Comment on above: Result Comment: Elec tronically Signed By: GISELLA MORAN, VIPUL Rosario\.br\Date and Time Signed: 07/13/24 11:55 EST C Urineon 05-09-2024 Bacteria identified Cx Nom [...] Locations R1: This test was performed at: [facility], [address] [place] [address], [facility] , , [facility] Comment on above: Performed By: #### [id number] #### [facility] [address] [place] [address] Ambulatory Visit Summaryon 0 05-07-2024 Ambulatory Visit Summary Ambulatory Visit Summary CATRACHO ISAURA L :1950 Visit Date:05/07/2024 Ambulatory Visit Instructions Your [...] EST With: Amor SHORT, Anamaria Harvey Where: [address] [address]- Tuesday 11:00 AM EST With: Where: [address] [address]- Medications What How Much When Instructions Unchanged [...] choosing us for your care. Normal [facility] Family Medicine Office/Clini c Notejustin 05-07-2024 Family Medicine Office/Clinic Note Family Medicine [...] 14 cap(s), Refills(s) 0, Pharmacy: [facility] [id number], 162, cm, 05/07/24 14:07:00 EDT, Height/Length Dosing, 76, kg, 05/07/24 14:07:00 EDT, Weight Dosing Body Mass Index (BMI) documented 3008F Current tobacco non-user 1036F Depression Screening Negative 3352F E&M of Est. Patient Low 20-29 Min 28527 Influenza immunization status assessed 1030F Medication list [...] Urnls Dip Stick Auto w/o Microscopy POC 75321 2. Non-smoker (Z78.9: Other specified health status) - Please continue to not smoke Ordered: doxycycline, 100 mg = 1 cap(s), Oral, BID, X 7 day(s), # 14 cap(s), Refills(s) 0, Pharmacy: [facility] [id number], 162, cm, 05/07/24 14:07:00 EDT, Height/Length Dosing, 76, kg, 05/07/24 14:07:00 EDT, Weight Dosing Body Mass Index (BMI) documented 3008F Current tobacco non-user 1036F Depression Screening Negative 3352F E&M of Est. Patient Low 20-29 Min 43645 Influenza immunization status assessed 1030F Medication list [...] 14 cap(s), Refills(s) 0, Pharmacy: [facility] [id number], 162, cm, 05/07/24 14:07:00 EDT, Height/Length Dosing, 76, kg, 05/07/24 14:07:00 EDT, Weight Dosing Body Mass Index (BMI) documented 3008F Current tobacco non-user 1036F Depression Screening Negative 3352F E&M of Est. Patient Low 20-29 Min 00489 Influenza immunization status assessed 1030F Medication list [...] 14 cap(s), Refills(s) 0, Pharmacy: [facility] [id number], 162, cm, 05/07/24 14:07:00 EDT, Height/Length Dosing, 76, kg, 05/07/24 14:07:00 EDT, Weight Dosing Body Mass Index (BMI) documented 3008F Current tobacco non-user 1036F Depression Screening Negative 3352F E&M of Est. Patient Low 20-29 Min 80739 Influenza immunization status assessed 1030F Medication list [...] with stage 3a (more content not included)... [facility] Comment on above: Result Comment: Elec tronically Signed By: Amor SHORT, Anamaria Harvey\.br\Date and Time Signed: 05/07/24 14:35 EDT Dexa Scanson 02-08-2024 Dexa Scans [id number]#1.[address] [facility] Consultation Noteon 02-07-20 Consultation Note [id number]#1.[address] [facility] RAD - MISCon 02-02-2024 RAD - MISC [id number]#1.[address] [facility] RAD - MISC [id number]#1.0 0TIFF Normal [facility] Consultation Noteon 01-30-20 Consultation Note [id number]#1.0 0TIFF Normal [facility] Consultation Noteon 12-26-19 Consultation Note [id number]#1.0 0TIFF Normal [facility] RAD - MISCon 12-21-2023 RAD - MISC [id number] 50 [id number]#1.0 0TIFF Normal [facility] RAD MIS [id number] 50 [id number]#1.0 0TIFF Normal [facility] Consultation Noteon 12-09-19 Consultation Note [id number]#1.0 0TIFF Normal [facility] Consultation Noteon 11-24-19 Consultation Note [id number]#1.0 0TIFF Normal [facility] Discharge Documentationon Discharge Documentation [id number]#1.0 0TIFF Normal [facility] Cytologyon 11-14-2023 Cytology Normal [facility] Comment on above: Result Comment: [facility] [address] [place] [address] Cytology Consultation Patient Name:ISAURA HAYDEN:1950 (Age: 73)Gender:FTaken:11/14/2023eported:11/16/2023 14:25Physician(s):Nabil Lord M.D. ([phone])Copy To: Rec. #:[id number]: #[id number] Final Cytologic Diagnosis Pelvic washings: No malignant cells identified. k/11/16/2023 Interpretation performed at [facility], [address] [place] [address], License number: [id number].Electronically Signed Out By Edie Day MD Clinical History Thickened endometrium/ post menopausal bleeding/ cervical stenosis. Gross Description Received was 35mL of clear colorless fluid unfixed labeled as Catracho, pelvic washings . CytoLyt added in lab. Unable to obtain cellblock, ThinPrep made. Source of Specimen Pelvic washings Non FIELD SPECIALIST ThinPrep Fee Code(s): 1; 54454, 12869 Surgical Pathologyon 024 Surgical Pathology Normal [facility] Comment on above: Result Comment: [facility] [address] [place] [address] Surgical Pathology Consultation Patient Name:ISAURA HAYDEN:1950 (Age: 73)Gender:FTaken:4Reported:11/16/2023hysician(s):Nabil Lord M.D. ([phone])Copy To: Rec. #:[id number]: #[id number] Final Pathologic Diagnosis Uterus, cervix, bilateral fallopian tubes, bilateral ovaries, TAHBSO: Cervix with no significant histopathologic abnormality Endometrium with cystic atrophy Myometrium with adenomyosis Bilateral adnexa with no significant histopathologic abnormality Report Electronically Signed Out [facility]/11/16/2023Edie Day MD Interpretation performed at [facility], [address] [place] [address], License number: [id number]. Clinical History Thickened endometrium, postmenopausal bleeding, cervical [...] ovary L-N Remainder of endometrium (14, ss, G08-78927, A- K, m6) MONICO/MD kilgore/11/14/2023GR Specimen(s) Received Uterus, cervix, bilateral fallopian tubes, bilateral ovaries Fee Codes(s): 1; 92289 Consultation Noteon 11-10-19 Consultation Note [id number]#1.0 0TIFF Normal [facility] CBC AND AUTO DIFFon 11-09-19 ABSOLUTE BASOPHIL 0.1 X10E9/L Normal 0.0-0.2 [facility] Comment on above: Performed By: #### C BCA, CMP #### [facility] ([id number]) [address], [address] [place] [address] ABSOLUTE NEUTROPHIL 3.1 X10E9/L Normal 1.5-6.6 [facility] Comment on above: Performed By: #### C BCA, CMP #### [facility] ([id number]) [address], [address] [place] [address] Basophils/100 WBC (Bld) 0.9 % Normal [facility] Comment on above: Performed By: #### C BCA, CMP #### [facility] ([id number]) [address], [address] [place] [address] Eosinophils (Bld) [#/Vol] 0.2 10*3/uL Normal 0.0-0.4 [facility] Comment on above: Performed By: #### C BCA, CMP #### [facility] ([id number]) [address], [address] [place] [address] Eosinophils/100 WBC (Bld) 4.3 % Normal [facility] Comment on above: Performed By: #### C BCA, CMP #### [facility] ([id number]) [address], [address] [place] [address] Erythrocyte distribution width (RBC) [Ratio] 13.1 % Normal 11.5-15.0 [facility] Comment on above: Performed By: #### C BCA, CMP #### [facility] ([id number]) [address] [place] [address] Hematocrit (Bld) [Volume fraction] 35.6 % Normal 35-47 [facility] Comment on above: Performed By: #### C BCA, CMP #### [facility] ([id number]) [address] [place] [address] Hemoglobin (Bld) [Mass/Vol] 12.4 g/dL Normal 11.7-15.5 [facility] Comment on above: Performed By: #### C BCA, CMP #### [facility] ([id number]) [address] [place] [address] Lymphocytes (Bld) [#/Vol] 1.7 10*3/uL Normal 1.0-3.5 [facility] Comment on above: Performed By: #### C BCA, CMP #### [facility] ([id number]) [address] [place] [address] Lymphocytes/100 WBC (Bld) 31.2 % Normal [facility] Comment on above: Performed By: #### C BCA, CMP #### [facility] ([id number]) [address] [place] [address] MCH (RBC) [Entitic mass] 33.3 pg Normal 27-34 [facility] Comment on above: Performed By: #### C BCA, CMP #### [facility] ([id number]) [address] [address] [place] [address] MCHC (RBC) [Mass/Vol] 34.7 g/dL Normal 32-36 [facility] Comment on above: Performed By: #### C BCA, CMP #### [facility] ([id number]) [address] [place] [address] MCV (RBC) [Entitic vol] 96 fL Normal 80-100 [facility] Comment on above: Performed By: #### C BCA, CMP #### [facility] ([id number]) [address] [place] [address] Monocytes (Bld) [#/Vol] 0.5 10*3/uL Normal 0-0.9 [facility] Comment on above: Performed By: #### C BCA, CMP #### [facility] ([id number]) [address] [place] [address] Monocytes/100 WBC (Bld) 8.2 % Normal [facility] Comment on above: Performed By: #### C BCA, CMP #### [facility] ([id number]) [address] [place] [address] Neutrophils/100 WBC (Bld) 55.4 % Normal [facility] Comment on above: Performed By: #### C BCA, CMP #### [facility] ([id number]) [address] [place] [address] Platelet mean volume (Bld) [Entitic vol] 8.2 fL Normal 7-12 [facility] Comment on above: Performed By: #### C BCA, CMP #### [facility] ([id number]) [address] [place] [address] Platelets (Bld) [#/Vol] 284 10*3/uL Normal 150-450 [facility] Comment on above: Performed By: #### C BCA, CMP #### [facility] ([id number]) [address] [place] [address] RBC COUNT 3.72 X10E12/L Low 3.80-5.20 [facility] Comment on above: Performed By: #### C BCA, CMP #### [facility] ([id number]) [address] [place] [address] WBC (Bld) [#/Vol] 5.6 10*3/uL Normal 4.0-11.0 [facility] Comment on above: Performed By: #### C BCA, CMP #### [facility] ([id number]) [address] [place] [address] COMPREHENSIVE METABOLIC PANE Rashi 11-09-2023 Albumin [Mass/Vol] 4.5 g/dL Normal 3.2-5.3 [facility] Comment on above: Performed By: #### C BCA, CMP #### [facility] ([id number]) [address] [place] [address] ALP [Catalytic activity/Vol] 48 U/L Normal 39-130 [facility] Comment on above: Performed By: #### C BCA, CMP #### [facility] ([id number]) [address] [place] [address] ALT [Catalytic activity/Vol] 14 U/L Normal 0-31 [facility] Comment on above: Performed By: #### C BCA, CMP #### [facility] ([id number]) [address] [place] [address] Anion gap [Moles/Vol] 9 mmol/L Normal 5-15 [facility] Comment on above: Performed By: #### C BCA, CMP #### [facility] ([id number]) [address] [place] [address] AST [Catalytic activity/Vol] 20 U/L Normal 0-41 [facility] Comment on above: Performed By: #### C BCA, CMP #### [facility] ([id number]) [address] [place] [address] Bilirubin [Mass/Vol] 0.5 mg/dL Normal 0.3-1.2 [facility] Comment on above: Performed By: #### C BCA, CMP #### [facility] ([id number]) [address] [place] [address] Calcium [Mass/Vol] 9.2 mg/dL Normal 8.5-10.5 [facility] Comment on above: Performed By: #### C BCA, CMP #### [facility] ([id number]) [address] [place] [address] Chloride [Moles/Vol] 106 mmol/L Normal 98-109 [facility] Comment on above: Performed By: #### C BCA, CMP #### [facility] ([id number]) [address] [place] [address] CO2 [Moles/Vol] 28 mmol/L Normal 22-32 [facility] Comment on above: Performed By: #### C BCA, CMP #### [facility] ([id number]) [address] [address] [place] [address] Creatinine [Mass/Vol] 1.17 mg/dL High 0.40-1.00 [facility] Comment on above: Result Comment: METH OD TRACEABLE TO IDMS STANDARD Performed By: #### C BCA, CMP #### [facility] ([id number]) [address] [place] [address] GFR/1.73 sq M.predicted among non-blacks MDRD (S/P/Bld) [Vol rate/Area] 50 mL/min/{1.73_m2} Low >59 [facility] Comment on above: Result Comment: Reported eGFR is based on the CKD-EPI 2020 equation that does not use a race coefficient. Performed By: #### C BCA, CMP #### [facility] ([id number]) [address] [place] [address] Glucose [Mass/Vol] 110 mg/dL High 65-99 [facility] Comment on above: Performed By: #### C BCA, CMP #### [facility] ([id number]) [address] [place] [address] Potassium [Moles/Vol] 4.1 mmol/L Normal 3.5-5.0 [facility] Comment on above: Performed By: #### C BCA, CMP #### [facility] ([id number]) [address] [place] [address] Protein [Mass/Vol] 7.2 g/dL Normal 6.0-8.0 [facility] Comment on above: Performed By: #### C BCA, CMP #### [facility] ([id number]) [address] [place] [address] Sodium [Moles/Vol] 143 mmol/L Normal 134-146 [facility] Comment on above: Performed By: #### C BCA, CMP #### [facility] ([id number]) [address] [place] [address] Urea nitrogen [Mass/Vol] 18 mg/dL Normal 5-27 [facility] Comment on above: Performed By: #### C BCA, CMP #### [facility] ([id number]) [address] [place] [address] XR CHEST 2 VWSon 11-09-2023 XR CHEST 2 VWS XR CHEST 2 VWS History: Preop testing Exam/Technique: PA and lateral chest Comparison: None Findings: There is no evidence of active pulmonary or pleural disease. Cardiac and mediastinal contours are within normal limits. IMPRESSION: No evidence of active pulmonary disease demonstrated. Finalized by Lewis Lyn MD on 11/09/2023 10:52 AM Normal [facility] Consultation Noteon 10-25-19 Consultation Note [id number]#1.0 0TIFF Normal [facility] Consultation Noteon 10-03-19 Consultation Note [id number]#1.0 0TIFF Normal [facility] [facility] RAD - MISCon 10-03-2023 RAD - MISC [id number]#1.0 0TIFF Normal [facility] Consultation Noteon 09-29-19 Consultation Note [id number]#1.0 0TIFF Normal [facility] Consultation Noteon 09-21-19 Consultation Note [id number]#1.0 0TIFF Normal [facility] Dexa Scanson 09-21-2023 Dexa Scans [id number]#1.0 0TIFF Normal [facility] Consultation Noteon 09-12-19 Consultation Note [id number]#1.[address] [facility] Patient Logson 09-02-2023 Patient Logs [id number]#1.00 TIFF [address] [facility] Ambulatory Visit Summaryon 0 09-01-2023 Ambulatory Visit [...] EST With: Amor SHORT, Anamaria Harvey Where: [facility] Medicine [place] Normal [address] [place] [address]- \.br\ Medications\.br\ What How Much When Instructions\.br\ [...] for choosing us for your care.\.br\ \.br\ [facility] Consultation Noteon 09-01-19 Consultation Note [id number]#1.0 0TIFF Normal [facility] Family Medicine Office/Clini c Noteon 09-01-2023 [...] 96.3 fL (05/11/23) Chloride: 108 mmol/L (05/11/23) [place] Absolute: 0.4 E9/L (05/11/23) CO2: 27 mmol/L (05/11/23) [place] Auto: 7.8 % (05/11/23) Creatinine: 1.3 mg/dL [...] Ongoing Ag (more content not included)... Normal [facility] Comment on above: Result Comment: [...] Herbs. Spices. Seasoni (more content not included)... Normal [facility] Consultation Noteon 08-24-19 Consultation Note [id number]#1.0 0TIFF Normal [facility] RAD - CT Reporton 08-24-2023 RAD - CT Report [id number]#1.[address] [facility] Operative Reporton Operative Report [id number]#1.[address] [facility] Patient Correspondenceon Patient Correspondence [id number]#1.[address] [facility] Provider Letteron 08-12-2023 Provider Letter [address] [place] [address] August 12, 2023 ISAURA HAYDEN [address] [id number] : [address] Das, The above patient has been evaluated at your request for preoperative clearance. After assessment of available pertinent labs and diagnostic tests, I feel this patient is medically optimized for surgery. Final discretion of whether the patient is cleared for surgery remains up to the surgeon/anesthesiologi st. Thank you, Violet Lauren, YISEL [facility] Ambulatory Visit Summaryon 1 10-12-2022 [...] AM EST With: Anamaria Chinchilla MD Where: [facility] Medicine [place] Normal [address] [place] [address]- \.br\ Medications\.br\ What How Much When Instructions\.br\ [...] for choosing us for your care.\.br\ \.br\ Nnamdi [facility] Family Medicine Office/Clini c Notejustin 08-11-2023 Family Medicine Office/Clinic Note HPI Staff [...] Recorded pneumococcal 23-valent vaccine 06/25/2008 Recorded Normal [facility] Comment on above: Result Comment: Elec tronically Signed By: Amor SHORT, Anamaria Saldivar.br\Date and Time Signed: 08/11/23 12:57 EST CHEMISTRYOrdered By: SYSTEM SYSTEM on 05-11-2023 Albumin [...] g/dL Normal 6.0 - 7.8 gm/dL F [facility] Remisol Sodium [Moles/Vol] 141 mmol/L Normal 135 - 145 mmol/L FT Remisol Urea nitrogen [Mass/Vol] 21 mg/dL Normal 5 - 21 mg/dL [facility] Remisol Urea nitrogen/Creatinine [Mass ratio] 16 mg/mg Normal 10 - 20 [facility] Remisol HEMATOLOGYOrdered By: SYSTEM SYSTEM on 05-11-2023 Basophils/100 [...] 7.8 % Normal 4.0 - 14.0 % [facility] HemeAutoSS Monocytes/Leukocyte s Auto (Bld) [Pure # fraction] 0.4 E9/L Normal 0.2 - 1.0 E9/L [facility] HemeAutoSS Neutrophils/100 WBC (Bld) 54.9 % Normal 36.0 - 75.0 % [facility] HemeAutoSS Neutrophils/Leukocy ambrosio Auto (Bld) [Pure # [...] Normal 4.0 - 11.0 E9/L [facility] HemeAutoSS URINALYSISOrdered By: Dinah murray on 05-11-2023 Bacteria LM Ql (Urine sed) Trace /HPF Normal Trace/HPF [facility] UA Auto SS Bilirubin Ql (U) Negative [...] PM) Normal Negative [facility] UA Auto SS Alleman.plasma/Lith ium.RBC (Bld) [Mass ratio] 0-3 /HPF Normal [...] [facility] UA Auto SS Urobilinogen Qn (U) 0.3258318 {Leon'U}/dL Normal 0.0 - 1.0 EU/dL [facility] UA Auto SS WBC Auto Ql (U) 1+ *ABN* (05/11/23 12:05 PM) Invalid Interpretation Code Negative [facility] UA Auto SS WBC LM.HPF (Urine sed) [#/Area] 0-5 /HPF Normal 0-5/HPF [facility] UA Auto SS CULTURE URINEon 07-06-2022 CULTURE URINE Culture Observations : LIGHT GROWTH OF MIXED GENITAL NAN. NO POTENTIAL PATHOGENS SEEN. Normal [facility] Comment on above: Performed By: #### U RCX #### [facility] [address] [place] [address] Dr. Melchor Brock UA (CLEAN/CATCH) MICROSCOPIC IF INDICATEon 07-06-2022 Bilirubin Ql (U) Negative Normal NEGATIVE [facility] Comment on above: Performed By: #### U MICRO, UARMICR #### [facility] [address] [place] [address] Dr. Melchor Brock Clarity (U) CLEAR Normal CLEAR [facility] Comment on above: Performed By: #### U MICRO, UARMICR #### [facility] [address] [place] [address] Dr. Melchor Brock Color (U) LT. YELLOW Normal YELLOW [facility] Comment on above: Performed By: #### U MICRO, UARMICR #### [facility] [address] [place] [address] Dr. Melchor Brock Glucose Ql (U) Negative Normal NEGATIVE [facility] Comment on above: Performed By: #### U MICRO, UARMICR #### [facility] [address] [place] [address] Dr. Melchor Brock Hemoglobin Ql (U) TRACE-INTACT Abnormal NEGATIVE [facility] Comment on above: Performed By: #### U MICRO, UARMICR #### [facility] [address] [place] [address] Dr. Melchor Brock Ketones Ql (U) Negative Normal NEGATIVE [facility] Comment on above: Performed By: #### U MICRO, UARMICR #### [facility] [address] [place] [address] Dr. Melchor Brock LEUKOCYTES TRACE Abnormal NEGATIVE [facility] Comment on above: Performed By: #### U MICRO, UARMICR #### [facility] [address] [place] [address] Dr. Melchor Brock Nitrite Ql (U) Negative Normal NEGATIVE [facility] Comment on above: Performed By: #### U MICRO, UARMICR #### [facility] [address] [address] [address] Melchor Brock pH (U) 6.0 [pH] Normal 5-9 [facility] Comment on above: Performed By: #### U MICRO, UARMICR #### [facility] [address] [address] [address] Melchor Brock SPEC GRAVITY 1.020 Normal 1.005-<=1.025 [facility] Comment on above: Performed By: #### U MICRO, UARMICR #### [facility] [address] [address] [address] Melchor Brock UA PROTEIN Negative Normal NEGATIVE/ TRACE [facility] Comment on above: Performed By: #### U MICRO, UARMICR #### [facility] [address] [place] [address] Dr. Melchor Brock UR MICRO IND INDICATED Normal [facility] Comment on above: Performed By: #### U MICRO, UARMICR #### [facility] [address] [address] [address] Melchor Brock Urobilinogen Qn (U) 0.2 {Leon'U}/dL Normal 0.2 - 1. 0 [facility] Comment on above: Performed By: #### U MICRO, UARMICR #### [facility] [address] [address] [address] Melchor Brock URINE MICROSCOPIC ONLYon BACTERIA NONE SEEN Normal NONE SEEN [facility] Comment on above: Performed By: #### G SHON, LIPID #### [facility] [address] [address] [address] Melchor Brock Bacteria identified Cx Nom (U) CX ALREADY ORDERED Normal [facility] Comment on above: Performed By: #### G SHON, LIPID #### [facility] [address] [address] [address] Melchor Brock CAST NONE SEEN Normal NONE SEEN [facility] Comment on above: Performed By: #### G SHON, LIPID #### [facility] [address] [address] [address] Melchor Brock Crystals LM Nom (Urine sed) NONE SEEN Normal NONE SEEN [facility] Comment on above: Performed By: #### G SHON, LIPID #### [facility] [address] [address] [address] Melchor Brock Epithelial cells LM Ql (Urine sed) RARE Normal NONE SEEN /RARE [facility] Comment on above: Performed By: #### G SHON, LIPID #### [facility] [address] [address] [address] Melchor Brock MUCOUS NONE SEEN Normal NONE SEEN [facility] Comment on above: Performed By: #### G SHON, LIPID #### [facility] [address] [place] [address] Dr. Melchor Brock RBC 0-2 Normal 0-2 [facility] Comment on above: Performed By: #### G SHON, LIPID #### [facility] [address] [place] [address] Dr. Melchor Brock WBC 0-2 Abnormal NONE SEEN [facility] Comment on above: Performed By: #### G SHON, LIPID #### [facility] [address] [place] [address] Dr. Melchor Brock MG MAMM SCREEN 3D SARAHI CADon 03-15-2022 MG MAMM SCREEN 3D SARAHI CAD Patient: ISAURA HAYDEN Exam Date: 03/15/2022 : 1950 Gender:F Ordering : DR FARA BOOKER . Admission #: [id number] Family : Order #: [id number] CLICK HERE TO VIEW EXAM RADIOLOGY REPORT [...] lung cancer at age 72. LOCATION: [facility] BREAST COMPOSITION: Heterogeneously dense,which may [...] LUMP SHOULD BE BIOPSIED. Dictated by: Alan Cárdenas M.D. on 03/15/2022 at 11:39 Approved by: Alan Cárdenas M.D. on 03/15/2022 at 11:41 Normal [facility] GLUCOSE BLOODon 02-09-2022 Glucose [Mass/Vol] 99 mg/dL Normal 74-106 [facility] Comment on above: Performed By: #### G SHON, LIPID #### [facility] [address] [address] [address] Melchor Brock LIPID PROFILEon 02-09-2022 CHOL-HDL RATIO NORM SEE BELOW Normal [facility] Comment on above: Result Comment: 3.3 - 4.4 LOW RISK 4.4 - 7.1 AVERAGE RISK 7.1 - 11.0 MODERATE RISK >11.0 HIGH RISK Performed By: #### G SHON, LIPID #### [facility] [address] [address] [address] Melchor Brock Cholesterol [Mass/Vol] 202 mg/dL Critically high <=200 [facility] Comment on above: Performed By: #### G SHON, LIPID #### [facility] [address] [address] [address] Melchor Brock Cholesterol in HDL [Mass/Vol] 56 mg/dL Normal 40-60 [facility] Comment on above: Performed By: #### G SHON, LIPID #### [facility] [address] [address] [address] Melchor Brock Cholesterol in LDL [Mass/Vol] 112.6 mg/dL Normal [facility] Comment on above: Performed By: #### G SHON, LIPID #### [facility] [address] [address] [address] Melchor Brock Cholesterol.total/C holesterol in HDL [Mass ratio] 3.6 {ratio} Normal [facility] Comment on above: Performed By: #### G SHON, LIPID #### [facility] [address] [address] [address] Melchor Brock HDL NORMAL > or = 60 mg/dl - LO W CARDIOVASCULAR RISK <40 mg/dl - HIGH CARDIOVASCULAR RISK Normal [facility] Comment on above: Performed By: #### G SHON, LIPID #### [facility] [address] [address] [address] Melchor Brock LDL CALC NORMAL SEE BELOW Normal [facility] Comment on above: Result Comment: <100 mg/dl OPTIMAL 100 - 129 mg/dl NEAR OR ABOVE OPTIMAL 130 - 159 mg/dl BORDERLINE HIGH 160 - 189 mg/dl HIGH >190 mg/dl VERY HIGH Performed By: #### G SHON, LIPID #### [facility] [address] [address] [address] Melchor Brock Triglyceride [Mass/Vol] 167 mg/dL Critically high <=150 [facility] Comment on above: Performed By: #### G SHON, LIPID #### [facility] [address] [place] [address] Dr. Melchor Brock VLDL CALC 33.4 mg/dL Normal [facility] Comment on above: Performed By: #### G SHON, LIPID #### [facility] [address] [address] [address] Melchor Brock LIPID PROFILEon 11-05-2021 CHOL-HDL RATIO NORM SEE BELOW Normal [facility] Comment on above: Result Comment: 3.3 - 4.4 LOW RISK 4.4 - 7.1 AVERAGE RISK 7.1 - 11.0 MODERATE RISK >11.0 HIGH RISK Performed By: #### L IPID, BMP #### [facility] [address] [address] [address] Melchor Brock Cholesterol [Mass/Vol] 244 mg/dL Critically high <=200 [facility] Comment on above: Performed By: #### L IPID, BMP #### [facility] [address] [address] [address] Melchor Brock Cholesterol in HDL [Mass/Vol] 60 mg/dL Normal 40-60 [facility] Comment on above: Performed By: #### L IPID, BMP #### [facility] [address] [place] [address] Dr. Melchor Brock Cholesterol in LDL [Mass/Vol] 158.4 mg/dL Normal [facility] Comment on above: Performed By: #### L IPID, BMP #### [facility] [address] [place] [address] Dr. Melchor Brock Cholesterol.total/C holesterol in HDL [Mass ratio] 4.1 {ratio} Normal [facility] Comment on above: Performed By: #### L IPID, BMP #### [facility] [address] [place] [address] Dr. Melchor Brock HDL NORMAL > or = 60 mg/dl - LO W CARDIOVASCULAR RISK <40 mg/dl - HIGH CARDIOVASCULAR RISK Normal [facility] Comment on above: Performed By: #### L IPID, BMP #### [facility] [address] [place] [address] Dr. Melchor Brokc LDL CALC NORMAL SEE BELOW Normal [facility] Comment on above: Result Comment: <100 mg/dl OPTIMAL 100 - 129 mg/dl NEAR OR ABOVE OPTIMAL 130 - 159 mg/dl BORDERLINE HIGH 160 - 189 mg/dl HIGH >190 mg/dl VERY HIGH Performed By: #### L IPID, BMP #### [facility] [address] [place] [address] Dr. Melchor Brock Triglyceride [Mass/Vol] 128 mg/dL Normal <=150 [facility] Comment on above: Performed By: #### L IPID, BMP #### [facility] [address] [place] [address] Dr. Melchor Brock VLDL CALC 25.6 mg/dL Normal [facility] Comment on above: Performed By: #### L IPID, BMP #### [facility] [address] [place] [address] Dr. Melchor Brock PROF CHEM 8 (BAS METB)on Anion gap [Moles/Vol] 10.7 mmol/L Normal [facility] Comment on above: Performed By: #### L IPID, BMP #### [facility] [address] [address] [address] Melchor Brock Calcium [Mass/Vol] 7.8 mg/dL Critically low 8.4-10.2 [facility] Comment on above: Performed By: #### L IPID, BMP #### [facility] [address] [place] [address] Dr. Melchor Brock Chloride [Moles/Vol] 103 mmol/L Normal 98-107 [facility] Comment on above: Performed By: #### L IPID, BMP #### [facility] [address] [place] [address] Dr. Melchor Brock CO2 [Moles/Vol] 28.4 mmol/L Normal 22.0-30.0 [facility] Comment on above: Performed By: #### L IPID, BMP #### [facility] [address] [place] [address] Dr. Melchor Brock Creatinine [Mass/Vol] 1.05 mg/dL Critically high 0.52-1.04 [facility] Comment on above: Performed By: #### L IPID, BMP #### [facility] [address] [place] [address] Dr. Melchor Brock EGFR-AF CENTRAL AFRICAN >60 Normal >=60 [facility] Comment on above: Performed By: #### L IPID, BMP #### [facility] [address] [place] [address] Dr. Melchor Brock EGFR-NON AF CENTRAL AFRICAN 52 mL/min/1.73m2 Critically low >=60 [facility] Comment on above: Performed By: #### L IPID, BMP #### [facility] [address] [place] [address] Dr. Melchor Brock Glucose [Mass/Vol] 98 mg/dL Normal 74-106 [facility] Comment on above: Performed By: #### L IPID, BMP #### [facility] [address] [place] [address] Dr. Melchor Brock Potassium [Moles/Vol] 4.1 mmol/L Normal 3.4-5.0 [facility] Comment on above: Performed By: #### L IPID, BMP #### [facility] [address] [address] [address] Melchor Brock Sodium [Moles/Vol] 138 mmol/L Normal 137-145 [facility] Comment on above: Performed By: #### L IPID, BMP #### [facility] [address] [address] [address] Melchor Brock Urea nitrogen [Mass/Vol] 15.0 mg/dL Normal 7.0-17.0 [facility] Comment on above: Performed By: #### L IPID, BMP #### [facility] [address] [address] [address] Melchor Brock Urea nitrogen/Creatinine [Mass ratio] 14.3 mg/mg Normal [facility] Comment on above: Performed By: #### L IPID, BMP #### [facility] [address] [place] [address] Dr. Melchor Brock ECHOCARDIO M/2D COMPLETEon 0 10-05-2021 ECHOCARDIO M/2D COMPLETE Patient: ISAURA HAYDEN Exam Date: 10/05/2021 : 1950 Gender:F Ordering : DR ANJELICA GAMBINO . Admission #: [id number] Family : Order #: [id number] CLICK HERE TO VIEW EXAM ECHOCARDIOGRAM REPORT [...] Area(A4C): 20.70 cm2 Left Atrium Systolic Volume(A2C): 47156 mm3 Left Atrium Systolic Volume(A4C): 20206 mm3 Mitral Valve MV E to A Ratio: 1.10 Deceleration [place]: 7410 mm/s2 Mitral Valve A-Wave Peak Velocity: [...] Dove M.D. on 10/06/2021 at 08:32 Normal [facility] XR DEXA BONE DENSITYon 09-18 XR [...] by: KVNG TILLMAN Date: 2021-09-18 10:56 Normal [facility] DEXA BONE DENSITY AXIAL SKEL ETONon [...] by:ARLEY Valenciaigned by:Lora Mondragon MD09/12/17inal result Normal [facility] DIGITAL SCREEN BILATERAL on 09-12-2017 [facility] DIGITAL SCREEN BILATERAL REPORT: BILATERAL DIGITAL [...] by:ARLEY Valenciaigned by:Lora Mondragon MD09/12/17inal result Normal [facility] Vital Signs Date Time Vital Sign Value Performing Clinician Facility 08-28-2024 09:11-0500 Body mass index (BMI) [Ratio] 29.01 kg/m2 Bentley Pippa DO Work Phone: [facility] 08-28-2024 09:11-0500 Body weight 76.66 kg Bentley Pippa DO Work Phone: [facility] 08-28-2024 09:11-0500 Diastolic blood pressure 70 mm[Hg] Bentley Pippa DO Work Phone: [facility] 08-28-2024 09:11-0500 Systolic blood pressure 120 mm[Hg] Bentley Pippa DO Work Phone: [facility] 11-29-2023 10:41-0400 Body height 162.6 cm Mary Pennington PA Work Phone: [facility] 11-29-2023 10:41-0400 Body mass index (BMI) [Ratio] 28.48 kg/m2 Mary Pennington PA Work Phone: [facility] 11-29-2023 10:41-0400 Body temperature 97.81 [degF] Mary Pennington PA Work Phone: [facility] 11-29-2023 10:41-0400 Body weight 75.3 kg Mary Pennington PA Work Phone: [facility] 11-29-2023 10:41-0400 Diastolic blood pressure 71 mm[Hg] Mary Pennington PA Work Phone: [facility] 11-29-2023 10:41-0400 Heart rate 57 /min Mary Pennington PA Work Phone: [facility] 11-29-2023 10:41-0400 Respiratory rate 16 /min Mary GOMEZ Work Phone: [facility] 11-29-2023 10:41-0400 SaO2% (BldA) [Mass fraction] 100 % Mary GOMEZ Work Phone: [facility] 11-29-2023 10:41-0400 Systolic blood pressure 142 mm[Hg] Mary GOMEZ Work Phone: [facility] 11-07-2023 10:32-0400 Body height 162.6 cm [facility] 11-07-2023 10:32-0400 Body mass index (BMI) [Ratio] 28.15 kg/m2 [facility] 11-07-2023 10:32-0400 Body weight 74.39 kg [facility] 10-26-2023 14:38-0500 Body temperature 98.29 [degF] Nabil Lord MD Work Phone: [facility] 10-26-2023 14:38-0500 Diastolic blood pressure 90 mm[Hg] Nabil Lord MD Work Phone: [facility] 10-26-2023 14:38-0500 Heart rate 67 /min Nabil Lord MD Work Phone: [facility] 10-26-2023 14:38-0500 SaO2% (BldA) [Mass fraction] 98 % Nabil Lord MD Work Phone: [facility] 10-26-2023 14:38-0500 Systolic blood pressure 158 mm[Hg] Nabil Lord MD Work Phone: [facility] 10-26-2023 14:35-0500 Body mass index (BMI) [Ratio] 29.18 kg/m2 Nabil Lord MD Work Phone: [facility] 10-26-2023 14:35-0500 Body weight 77.11 kg Nabil Lord MD Work Phone: [facility] Encounters Encounter Date Encounter Type Care Provider Facility Start: 08-01-2025 ambulatory MD Anamaria Chinchilla Facil ity:[facility] Start: 01-28-2025 ambulatory MD Anamaria Chinchilla Facil ity:[facility] [place] Start: 09-11-2024 End: 09-11-2024 ambulatory Kushal Keith Facility:[facility] Start: 09-10-2024 End: 09-10-2024 ambulatory MD Anamaria Chinchilla Facility: [facility] Start: 08-28-2024 End: 08-28-2024 Bamboo flowsheet Bentley Pippa DO Work Phone: [facility] Start: 08-28-2024 End: 08-28-2024 Bamboo flowsheet Bentley Pippa DO Work Phone: [facility] Start: 08-28-2024 End: 08-28-2024 Patient encounter procedure Bentley Pippa DO Work Phone: [facility] Comment on above: Well woman exam with routine gynecological exam; Breast cancer screening by mammogram; Postmenopausal state Start: 08-28-2024 End: 08-28-2024 ambulatory BENTLEY PIPPA Not Available Start: 08-27-2024 End: 08-27-2024 ambulatory MD Anamaria Chinchilla Facility: [facility] Start: 08-09-2024 End: 08-09-2024 Lab Drop off Anamaria Chinchilla [facility] Start: 08-09-2024 End: 08-09-2024 ambulatory MD Anamaria Chinchilla Facility: [facility] Start: 07-30-2024 End: 07-30-2024 ambulatory MD Anamaria Chinchilla Facility: [facility] [place] Start: 07-30-2024 End: 07-30-2024 ambulatory MD Anamaria Chinchilla Facility: [facility] Start: 07-13-2024 End: 07-13-2024 ambulatory VIPUL OBANDO Facility:[facility] [place] Start: 05-07-2024 End: 05-07-2024 Lab Drop off Anamaria Chinchilla [facility] Start: 05-07-2024 End: 05-07-2024 ambulatory MD Anamaria Chinchilla Facility[facility] Start: 12-27-2023 End: 12-27-2023 ambulatory [facility] Start: 11-29-2023 End: 11-29-2023 ambulatory [facility] Start: 11-29-2023 End: 11-29-2023 Postop follow up visit related to original px Mary Pennington JASON Work Phone: [facility] Comment on above: Encounter for postop erative care (Primary Dx) Start: 11-14-2023 End: 11-14-2023 Evaluation and management of inpatient [facility] Start: 11-14-2023 End: 11-14-2023 Evaluation and management of inpatient [facility] Start: 11-09-2023 Encounter for other preprocedural examination [facility] Start: 11-09-2023 End: 11-10-2023 ambulatory [facility] Start: 11-07-2023 End: 11-07-2023 Evaluation and management of inpatient ANJELICA GAMBINO [facility] Start: 11-07-2023 End: 11-07-2023 Admission to [facility] Phone Call Provider 2 [facility]-Ad[facility] Start: 10-28-2023 Patient encounter status Nabil Lord MD Work Phone: [facility] Start: 10-28-2023 Telephone encounter Nabil andersen MD Work Phone: [facility] Start: 10-26-2023 End: 10-26-2023 ambulatory NABIL LORD [facility] Start: 10-26-2023 End: 10-26-2023 Office outpatient new 60 minutes Nabil Lord MD Work Phone: [facility] Comment on above: Endometrial thickeni ng on ultrasound (Primary Dx); Postmenopausal bleeding Start: 10-19-2023 ambulatory ANJELICA GAMBINO [facility] Start: 10-19-2023 Telephone encounter [facility] Start: 10-11-2023 End: 10-11-2023 ambulatory BENTLEY DAS Not Available Start: 09-01-2023 End: 09-01-2023 ambulatory VIPUL OBANDO Facility:[facility] Start: 08-11-2023 End: 08-11-2023 ambulatory MD Anamaria Chinchilla Facility:[facility] Start: 05-11-2023 End: 05-11-2023 Lab Drop off Violet Lauren [facility] Start: 08-03-2022 End: 08-04-[address] ANJELICA [...] Start: 09-12-2017 End: 09-13-2017 Ambulatory [facility] Procedures Date Procedure Procedure Detail Performing Clinician Start: 11-29-2023 Follow-up visit Follow-up DEMETRIS PENNINGTON Start: 08-22-2022 Hysterectomy Anamaria mcconnell Start: 09-12-2017 Screening mammograph y bi 2-view breast inc cad FARA BOOKER Start: 09-12-2017 Dxa bone density jeanne dy 1/> sites axial skel FARA BOOKER Cholecystectomy Violet Lauren Comment on above: bile duct surgery Colonoscopy Violet Lauren Comment on above: 2012 normal Laser device (physic al object) Violet Lauren Comment on above: eye Plan of Treatment Date Care Activity Detail Author Start: 09-03-2025 End: 09-03-2025 Patient encounter procedure 09/03/2025 10:00 AM EST Office Visit [facility] [address] [place] [address] Bentley Das DO [address] [place], [place] [id number] [facility] Start: 11-28-2024 Adult BMI Screening Adult BMI Screen ing [facility] Start: 11-13-2024 Tobacco Screening Tobacco Screening [facility] Start: 10-25-2024 Adult BMI Screening Adult BMI Screen ing [facility] Start: 10-25-2024 Tobacco Screening [facility] Start: 08-28-2024 End: 08-28-2025 DXA Skeletal system Views for bone density DEXA bone density Imaging Routine Postmenopausal state Expected: 08/28/2024 (Approximate), Expires: 08/28/2025 [facility] Comment on above: Expected: 08/28/2024 (Approximate), Expires: 08/28/2025 Start: 08-28-2024 End: 10-26-2025 MG Breast - bilateral Screening Bilateral screening mammogram Imaging Routine Breast cancer screening by mammogram Expected: 08/28/2024, Expires: 10/26/2025 [facility] Healthcare Work Phone: Comment on above: Expected: 08/28/2024 , Expires: 10/26/2025 Start: 08-28-2024 End: 08-28-2024 Patient encounter procedure 08/28/2024 9:00 AM EST Office Visit [facility] [address] [facility] [facility] [place] [address] Bentley Das, [address] [place] [address] Arrived [facility] Comment on above: Arrived Start: 04-22-2024 Influenza vaccination Influenza Vacc ine [facility] Start: 12-27-2023 End: 12-27-2023 Patient encounter procedure 12/27/2023 11:00 AM EDT Office Visit [facility] - Medical Oncology [address] [place] [address] Mary Pennington PA [address] [place] [address] [facility] Rosado Waldo [facility] - Medical Oncology Start: 11-29-2023 End: 11-29-2023 Patient encounter procedure 11/29/2023 10:30 AM EDT Office Visit [facility] - Medical Oncology [address] [place] [address] Mary Pennington PA [address] [place], [place] [id number] [facility] - [facility] On[facility] Start: 11-14-2023 End: 11-14-2023 Admission to same day surgery center 11/14/2023 11:00 AM EDT - 11/14/2023 1:00 PM EDT Surgery [facility] Division of [facility] Surgery [address] [place] [address] Nabil Lord MD [address] [facility] [facility] [place] [address] DAVINCI HYSTERECTOMY SALPINGO OOPHORECTOMY(WITH FROZEN SECTION AND POSSIBLE STAGING) [facility] - Surgery Comment on above: DAVINCI HYSTERECTOMY SALPINGO OOPHORECTOMY(WITH FROZEN SECTION AND POSSIBLE STAGING) Start: 11-14-2023 End: 11-14-2023 DAVINCI HYSTERECTOMY SALPINGO OOPHORECTOMY DAVINCI HYSTERECTOMY SALPINGO OOPHORECTOMY THICKENED ENDOMETRUM/POST MENOPAUSAL BLEEDING/CERVICAL STENOSIS 11/14/2023 11:00 AM EDT [facility] Start: 11-14-2023 Subsequent hospital visit by physician 11/14/2023 11:00 AM EDT Hospital Encounter [facility] - Surgery [address] [place] [address] [place] [address] [place] [address], [address] [place] [address] [facility] - Surgery Start: 11-07-2023 End: 11-07-2023 Admission to establishment 11/07/2023 10:30 AM EDT Support Visit [facility] Pre-Admission Clinic On [address] [address] [facility]Admission [facility] On [facility] Start: 10-28-2023 End: 10-27-2024 XR Chest PA and Lateral X-ray chest 2 views Imaging Routine Preop testing Expected: 10/28/2023, Expires: 10/27/2024 [facility] Comment on above: Expected: 10/28/2023 , Expires: 10/27/2024 Start: 10-26-2023 End: 10-26-2023 Patient encounter procedure 10/26/2023 3:00 PM EST Office Visit [facility] [address] [place] [address] [address] [place] [id number] Nabil Lord MD [address] [facility] [place] [address] [facility] Start: 04-22-2023 Influenza vaccination Influenza Vacc ine [facility] Start: 08-04-2022 Adult BMI Screening Adult BMI Screen ing [facility] Start: 2017 Fall Risk Screening Fall Risk Screen ing [facility] Start: 2002 Administration of varicella zoster vaccine Zoster (Shingles) Vaccine (1 of 2) [facility] Start: 1971 DTaP,Tdap and Td Vaccines (1 - Tdap) DTaP,Tdap and Td Vaccines (1 - Tdap) [facility] Start: 1970 Adult BMI Follow Up Plan Adult BMI F ollow Up Plan [facility] Start: 1964 Depression Screening Depression Scre ening [facility] Start: 1964 Tobacco Screening Tobacco Screening [facility] Start: 1952 Medicare Annual Well ness Visit Medicare Annual Wellness Visit [facility] End: 10-27-2024 CBC W Auto Differential panel - Blood CBC with auto diff Lab Routine Preop testing 1 Occurrences starting 10/28/2023 until 10/27/2024 Accountable Work Phone: Comment on above: 1 Occurrences starti ng 10/28/2023 until 10/27/2024 End: 10-27-2024 Comprehensive metabolic 2000 panel - Serum or Plasma Comprehensive metabolic panel Lab Routine Preop testing 1 Occurrences starting 10/28/2023 until 10/27/2024 [facility]: 1 Occurrences starti ng 10/28/2023 until 10/27/2024 End: 10-27-2024 ECG 12 lead ECG 12 lead ECG Routine Preop testing 1 Occurrences starting 10/28/2023 until 10/27/2024 [facility] Comment on above: 1 Occurrences starti ng 10/28/2023 until 10/27/2024 Immunizations Immunization Date Immunization Notes Care Provider Jailyn martinez 07-24-2019 pneumococcal polysaccharide vaccine, 23 valent Anamaria Chinchilla [facility] 07-21-2018 pneumococcal conjuga te vaccine, 13 valent Anamaria Chinchilla [facility] 11-08-2016 hepatitis A vaccine, adult dosage Anamaria Chinchilla [facility] 05-05-2016 hepatitis A vaccine, adult dosage Anamaria Chinchilla [facility] 07-12-2014 influenza, injectabl e, quadrivalent, preservative free Bentley Pippa DO Work Phone: [facility] 07-12-2014 influenza virus vaccine, unspecified formulation Linette Ga RN [facility] 06-05-2013 influenza virus vaccine, unspecified formulation Anamaria Chinchilla [facility] 06-05-2013 influenza, seasonal, injectable Bentley Pippa DO Work Phone: [facility] 05-18-2012 influenza virus vaccine, unspecified formulation Anamaria Chinchilla [facility] 05-18-2012 influenza, seasonal, injectable Bentley Pippa DO Work Phone: [facility] 05-17-2011 influenza virus vaccine, unspecified formulation Anamaria Chinchilla [facility] 05-17-2011 influenza, seasonal, injectable Bentley Pippa DO Work Phone: [facility] 06-25-2008 pneumococcal polysaccharide vaccine, 23 valent Anamaria Chinchilla [facility] NEGATED: Highlighted row has not occurred!07-30-2024 influenza virus vaccine, unspecified formulation Anamaria Chinchilla [facility] NEGATED: Highlighted row has not occurred!05-30-2023 influenza virus vaccine, unspecified formulation Anamaria Chinchilla [facility] NEGATED: Highlighted row has not occurred!12-01-2022 SARS-CoV-2 mRNA (tozinameran 5y-11y) vaccine Violet Lauren [facility] Payers Date Payer Category Payer Medicare (Managed Care) KELLY SANDERS [id number] 2017 Medicare [id number]. [id number] 2017 Unknown [id number]. 1.13.424.2. 7.3.439753.315 2017 Unknown [id number] 2014 Medicare [id number] 1959 Unknown [id number] 1952 Unknown [id number] 2.16.840.1.473752.3.579.2. 593 1952 Unknown [id number] 2.16.840.1.073931.3.579.2. 593 1952 Unknown [id number] 2.16.840.1.345273.3.579.2. 593 1952 Unknown [id number] 2.16.840.1.004679.3.579.2. 593 1952 Unknown [id number] 2.16.840.1.087951.3.579.2. 593 1952 Unknown [id number] 2.16.840.1.562933.3.579.2. 593 1952 Unknown [id number] 2.16.840.1.107314.3.579.2. 593 1952 Unknown [id number] 2.16.840.1.686614.3.579.2. 593 1952 Unknown [id number] 2.16.840.1.553881.3.579.2. 1286 1952 Unknown [id number] 2.16.840.1.957888.3.579.2. 1286 1952 Unknown [id number] 2.16.840.1.094826.3.579.2. 1286 1952 Unknown [id number] 2.16.840.1.697039.3.579.2. 128 1952 Unknown [id number] 2.16.840.1.720339.3.579.2. 1286 1952 Unknown [id number] 2.16.840.1.750889.3.579.2. 128 1952 Unknown [id number] 2.16.840.1.569779.3.579.2. 128 1952 Unknown [id number] 2.16.840.1.111414.3.579.2. 128 1952 Unknown [id number] 2.16.840.1.227087.3.579.2. 128 1952 Unknown [id number] 2.16.840.1.117310.3.579.2. 1286 1952 Unknown [id number] 2.16.840.1.578787.3.579.2. 1286 1952 Unknown [id number] 2.16.840.1.583827.3.579.2. 727 1952 Unknown [id number] 2.16.840.1.203854.3.579.2. 727 1952 Unknown [id number] 2.16.840.1.178796.3.579.2. 727 1952 Unknown [id number] 2.16.840.1.200164.3.579.2. 727 1952 Unknown [id number] 2.16.840.1.852228.3.579.2. 727 1952 Unknown [id number] 2.16.840.1.570831.3.579.2. 727 1952 Unknown [id number] 2.16.840.1.094610.3.579.2. 727 1952 Unknown [id number] 2.16.840.1.595390.3.579.2. 727 1952 Unknown [id number] 2.16.840.1.579142.3.579.2. 727 1952 Unknown [id number] 2.16.840.1.528510.3.579.2. 727 1952 Unknown [id number] 2.16.840.1.373720.3.579.2. 727 1952 Unknown [id number] 2.16.840.1.121008.3.579.2. 1259 1952 Unknown [id number] 2.16.840.1.831193.3.579.2. 1259 1952 Unknown [id number] 2.16.840.1.367881.3.579.2. 727 1952 Unknown [id number] 2.16.840.1.248513.3.579.2. 727 1952 Unknown [id number] 2.16.840.1.585099.3.579.2. 196 Social History Date Type Detail Facility Start: 05-11-2023 End: 11-07-2023 Tobacco smoking status Never smoked tobacco (finding) [facility] Comment on above: denies denies use. Tobacco smoking status Never [facility] Comment on above: denies Start: 01-12-2018 End: 10-02-2020 Sex Assigned At Female [facility] Start: 01-12-2018 End: 11-07-2023 Tobacco use and exposure Smokeless tobacco non-user [facility] Start: 01-12-2018 End: 11-14-2023 Alcohol intake Current drinker of alcohol (finding) [facility] Start: 01-12-2018 End: 10-02-2020 Alcohol intake [facility] Start: 1950 Sex Assigned At Not on file [facility] Start: 1950 Sex Assigned At Female [facility] Start: 10-24-2023 Gender identity Identifies as female gender (finding) [facility] History of tobacco use Passive smoker [facility] Clinical Notes 08-05-2022 to 08-28-2024 Maryanne Mancia LPN - 08/28/2024 9:00 AM JASON Wasserman - 11/29/2023 10:30 AM EDTPre-Procedure Instructions - Angelia Kramer RN - 11/07/2023 10:30 AM EDT Note Date & Type Note Facility 08-28-2024 History of Presen t illness Narrative Reason for Appointment: Patient ID: Isaura Hayden is a 74 y.o. female who presents for Well Women Visit Patient presents today for Annual Exam. MEDICATIONS Current Outpatient Medications Medication Instructions alpha tocopherol (Vitamin E) 1000 units capsule See Instructions, take one daily 400mg, Refills(s) 0 amLODIPine (NORVASC) 5 mg, Daily aspirin 81 mg, Every other day Izpcjhh-Vhbdmviimz-Swrlhef D (VITAMIN D3/CALCIUM/PHOSPHORUS PO) 1 each, Daily Denosumab (PROLIA SC) 1 Units, Every 6 months Durysta 10 mcg, As needed losartan (COZAAR) 100 mg, Daily Dedham-3 500 mg rosuvastatin (CRESTOR) 20 mg ALLERGIES Allergies Allergen Reactions Hydromorphone Unknown PROBLEMS Active Ambulatory Problems Diagnosis Date Noted Age-related osteoporosis without current pathological fracture ([facility]) 01/31/2023 Arthritis 12/27/2016 Hypercholesterolemia ([facility]) 12/27/2016 Hypertension ([facility]) 01/31/2023 Iron deficiency anemia 12/27/2016 TIA (transient ischemic attack) 01/31/2023 History of colon polyps 02/01/2023 Hyperlipidemia ([facility]) 02/23/2023 Resolved Ambulatory Problems Diagnosis Date Noted No Resolved Ambulatory Problems Past Medical History: Diagnosis Date Bronchitis Capillary angioma Cataracts, bilateral Chicken pox Family history of cancer Gallstone pancreatitis 2017 Glaucoma (CMS/HCC) Hemorrhoids 2013 High blood pressure (CMS/HCC) High cholesterol (CMS/HCC) Measles Mumps Osteoporosis (CMS/HCC) Pneumonia Stress fracture Tonsillitis Tubular adenoma 2013 HISTORY PAST MEDICAL HISTORY SOCIAL HISTORY Past Medical History: Diagnosis Date Arthritis Bronchitis Capillary angioma Cataracts, bilateral Chicken pox Family history of cancer Gallstone pancreatitis 2017 Glaucoma (CMS/HCC) Hemorrhoids 2013 High blood pressure (CMS/HCC) High cholesterol (CMS/HCC) Measles Mumps Osteoporosis (CMS/HCC) Pneumonia Stress fracture Tonsillitis Tubular adenoma 2013 /colon polyp Social History Tobacco Use Smoking status: Never Smokeless tobacco: Not on file Substance Use Topics Alcohol use: Yes Alcohol/week: 1.0 standard drink of alcohol Types: 1 Glasses of wine per week Drug use: Never FAMILY HISTORY Family History Problem Relation Name Age of Onset Other (bladder cancer) Mother Kidney disease Mother Lung cancer Father Brain cancer Father Diabetes Father Heart disease Father Colon cancer Brother Cancer Paternal Grandmother Diabetes Sibling Heart disease Sibling Cancer Sibling Melanoma Neg Hx SURGICAL HISTORY Past Surgical History: Procedure Laterality Date CHOLECYSTECTOMY 2017 COLONOSCOPY 2013 tubular adenoma/colon polyp COLONOSCOPY 02/16/2023 CYSTOCELE REPAIR HEMORRHOID SURGERY 2013 TONSILLECTOMY TUMOR EXCISION benign tumors thigh VAGINAL PROLAPSE REPAIR WISDOM TOOTH EXTRACTION REVIEW OF SYSTEMS Review of Systems: Review of Systems Constitutional: Negative. HENT: Negative. Eyes: Negative. Respiratory: Negative. Cardiovascular: Negative. Gastrointestinal: Negative. Genitourinary: Negative. Musculoskeletal: Negative. Skin: Negative. Neurological: Negative. All other systems reviewed and are negative. Hematological: Negative. Endocrine: Negative. Allergic/Immunologic: Negative. OBJECTIVE Objective: Physical Exam Constitutional: Appearance: Normal appearance. She is well-developed. Genitourinary: Vulva normal. Vaginal cuff intact. Cervix is absent. Uterus is absent. Cardiovascular: Rate and Rhythm: Normal rate and regular rhythm. Abdominal: General: Bowel sounds are normal. There is no distension. Palpations: Abdomen is soft. Tenderness: There is no abdominal tenderness. There is no guarding or rebound. Musculoskeletal: General: No swelling. Normal range of motion. Right lower leg: No edema. Left lower leg: No edema. Neurological: Mental Status: She is alert and oriented to person, place, and time. Skin: General: Skin is warm and dry. Psychiatric: Mood and Affect: Mood normal. Behavior: Behavior normal. Vitals and nursing note reviewed. Exam conducted with a trestle mainternance laborer present. Vitals: Estimated body mass index is 29.01 kg/m as calculated from the following: Height as of 05/25/23: 5' 4 . Weight as of this encounter: 169 lb. BP: 120/70 No LMP recorded (lmp unknown). Patient is postmenopausal. ASSESSMENT & PLAN ICD-10-CM 1. Well woman exam with routine gynecological exam Z01.419 THIN PREP TIS PAP AND HR HPV DNA 2. Breast cancer screening by mammogram Z12.31 Bilateral screening mammogram Bilateral screening mammogram 3. Postmenopausal state Z78.0 DEXA bone density Pt doing well with no complaints. Pt had hysterectomy with Dr Lord in November 2023. Pt had breast exam and pelvic exam today. No Pap obtained. Pt to return in 1 year. Documented by Maryanne Mancia LPN on behalf of: Bentley Das DO documented in this encounter [facility] 08-09-2024 Note Nurse Consultation N ote Reason for Visit Here for lab draw Medications amLODIPine 5 mg Tab, See Instructions aspirin 81 mg oral capsule, See Instructions calcium-vitamin D, Daily Durysta 10 mcg intraocular implant, IntraOcular, Once glucosamine hydrochloride 1500 mg oral tablet, 1500 mg= 1 tab(s), Oral, Daily losartan 100 mg Tab, 100 mg= 1 tab(s), Oral, Daily, 4 refills omega-3 polyunsaturated fatty acids 500 mg oral capsule, 500 mg= 1 cap(s), Oral, Daily Prolia, SubCutaneous, q6mo rosuvastatin 20 mg Tab, See Instructions, 4 refills stool softner, 100 mg, Oral, Bedtime tiZANidine 4 mg Tab, Not taking Vitamin D3 vitamin E 450 mg oral capsule, See Instructions Allergies Dilaudid (Unknown) Immunizations Vaccine Date Status Comments influenza virus vaccine, inactivated - Not Given Parent Or Guardian Refuses influenza virus vaccine, inactivated - Not Given [...] 05/17/2011 Recorded pneumococcal 23-valent vaccine 06/25/2008 Recorded [facility] 07-30-2024 Note Patient Education Cardiovascular Hypertension, Adult Hypertension is another name for high blood pressure. High blood pressure forces your heart to work harder to pump blood. This can cause problems over time. There are two numbers in a blood pressure reading. There is a top number (systolic) over a bottom number (diastolic). It is best to have a blood pressure that is below 120/80. What are the causes? The cause of this condition is not known. Some other conditions can lead to high blood pressure. What increases the risk? Some lifestyle factors can make you more likely to develop high blood pressure: ??? Smoking. ??? Not getting enough exercise or physical activity. ??? Being overweight. ??? Having too much fat, sugar, calories, or salt (sodium) in your diet. ??? Drinking too much alcohol. Other risk factors include: ??? Having any of these conditions: ? Heart disease. ? Diabetes. ? High cholesterol. ? Kidney disease. ? Obstructive sleep apnea. ??? Having a family history of high blood pressure and high cholesterol. ??? Age. The risk increases with age. ??? Stress. What are the signs or symptoms? High blood pressure may not cause symptoms. Very high blood pressure (hypertensive crisis) may cause: ??? Headache. ??? Fast or uneven heartbeats (palpitations). ??? Shortness of breath. ??? Nosebleed. ??? Vomiting or feeling like you may vomit (nauseous). ??? Changes in how you see. ??? Very bad chest pain. ??? Feeling dizzy. ??? Seizures. How is this treated? This condition is treated by making healthy lifestyle changes, such as: ? Eating healthy foods. ? Exercising more. ? Drinking less alcohol. ??? Your doctor may prescribe medicine if lifestyle changes do not help enough and if: ? Your top number is above 130. ? Your bottom number is above 80. ??? Your personal target blood pressure may vary. Follow these instructions at home: Eating and drinking ??? If told, follow the DASH eating plan. To follow this plan: ? Fill one half of your plate at each meal with fruits and vegetables. ? Fill one fourth of your plate at each meal with whole grains. Whole grains include whole-wheat pasta, brown rice, and whole-grain bread. ? Eat or drink low-fat dairy products, such as skim milk or low-fat yogurt. ? Fill one fourth of your plate at each meal with low-fat (lean) proteins. Low-fat proteins include fish, chicken without skin, eggs, beans, and tofu. ? Avoid fatty meat, cured and processed meat, or chicken with skin. ? Avoid pre-made or processed food. ??? Limit the amount of salt in your diet to less than 1,500 mg each day. ??? Do not drink alcohol if: ? Your doctor tells you not to drink. ? You are , may be , or are planning to become . ??? If you drink alcohol: ? Limit how much you have to: ? 0?1 drink a day for women. ? 0?2 drinks a day for men. ? Know how much alcohol is in your drink. In the [place] one drink equals one 12 oz bottle of beer (355 mL), one 5 oz glass of wine (148 mL), or one 1? oz glass of hard liquor (44 mL). Lifestyle ??? Work with your doctor to stay at a healthy weight or to lose weight. Ask your doctor what the best weight is for you. ??? Get at least 30 minutes of exercise that causes your heart to beat faster (aerobic exercise) most days of the week. This may include walking, swimming, or biking. ??? Get at least 30 minutes of exercise that strengthens your muscles (resistance exercise) at least 3 days a week. This may include lifting weights or doing Pilates. ??? Do not smoke or use any products that contain nicotine or tobacco. If you need help quitting, ask your doctor. ??? Check your blood pressure at home as told by your doctor. ??? Keep all follow-up visits. Medicines ??? Take gstx-biz-kaaevvw and prescription medicines only as told by your doctor. Follow directions carefully. ??? Do not skip doses of blood pressure medicine. The medicine does not work as well if you skip doses. Skipping doses also puts you at risk for problems. ??? Ask your doctor about side effects or reactions to medicines that you should watch for. Contact a doctor if: ??? You think you are having a reaction to the medicine you are taking. ??? You have headaches that keep coming back. ??? You feel dizzy. ??? You have swelling in your ankles. ??? You have trouble with your vision. Get help right away if: ??? You get a very bad headache. ??? You start to feel mixed up (confused). ??? You feel weak or numb. ??? You feel faint. ??? You have very bad pain in your: ? Chest. ? Belly (abdomen). ??? You vomit more than once. ??? You have trouble breathing. These symptoms may be an emergency. Get help right away. Call 911. ??? Do not wait to see if the symptoms will go away. ??? Do not drive yourself to the hospital. Summary ??? Hypertension is a (more content not included)... [facility] 07-13-2024 Note Patient Education Infectious Disease Pharyngitis Pharyngitis is a sore throat (pharynx). This is when there is redness, pain, and swelling in your throat. Most of the time, this condition gets better on its own. In some cases, you may need medicine. What are the causes? An infection from a virus. ??? An infection from bacteria. ??? Allergies. What increases the risk? Being 5?24 years old. ??? Being in crowded environments. These include: ? Daycares. ? Schools. ? Dormitories. ??? Living in a place with cold temperatures outside. ??? Having a weakened disease-fighting (immune) system. What are the signs or symptoms? Symptoms may vary depending on the cause. Common symptoms include: ??? Sore throat. ??? Tiredness (fatigue). ??? Low-grade fever. ??? Stuffy nose. ??? Cough. ??? Headache. Other symptoms may include: ??? Glands in the neck (lymph nodes) that are swollen. ??? Skin rashes. ??? Film on the throat or tonsils. This can be caused by an infection from bacteria. ??? Vomiting. ??? Red, itchy eyes. ??? Loss of appetite. ??? Joint pain and muscle aches. ??? Tonsils that are temporarily bigger than usual (enlarged). How is this treated? Many times, treatment is not needed. This condition usually gets better in 3?4 days without treatment. If the infection is caused by a bacteria, you may be need to take antibiotics. Follow these instructions at home: Medicines ??? Take [id number] and prescription medicines only as told by your doctor. ??? If you were prescribed an antibiotic medicine, take it as told by your doctor. Do not stop taking the antibiotic even if you start to feel better. ??? Use throat lozenges or sprays to soothe your throat as told by your doctor. ??? Children can get pharyngitis. Do not give your child aspirin. Managing pain To help with pain, try: ??? Sipping warm liquids, such as: ? Broth. ? Herbal tea. ? Warm water. ??? Eating or drinking cold or frozen liquids, such as frozen ice pops. ??? Rinsing your mouth (gargle) with a salt water mixture 3?4 times a day or as needed. ? To make salt water, dissolve ??1 tsp (3?6 g) of salt in 1 cup (237 mL) of warm water. ? Do not swallow this mixture. ??? Sucking on hard candy or throat lozenges. ??? Putting a cool-mist humidifier in your bedroom at night to moisten the air. ??? Sitting in the bathroom with the door closed for 5?10 minutes while you run hot water in the shower. General instructions ??? Do not smoke or use any products that contain nicotine or tobacco. If you need help quitting, ask your doctor. ??? Rest as told by your doctor. ??? Drink enough fluid to keep your pee (urine) pale yellow. How is this prevented? Wash your hands often for at least 20 seconds with soap and water. If soap and water are not available, use hand systems navigator. ??? Do not touch your eyes, nose, or mouth with unwashed hands. Wash hands after touching these areas. ??? Do not share cups or eating utensils. ??? Avoid close contact with people who are sick. Contact a doctor if: ??? You have large, tender lumps in your neck. ??? You have a rash. ??? You cough up green, yellow-brown, or bloody spit. Get help right away if: ??? You have a stiff neck. ??? You drool or cannot swallow liquids. ??? You cannot drink or take medicines without vomiting. ??? You have very bad pain that does not go away with medicine. ??? You have problems breathing, and it is not from a stuffy nose. ??? You have new pain and swelling in your knees, ankles, wrists, or elbows. These symptoms may be an emergency. Get help right away. Call your local emergency services (911 in the [place] ??? Do not wait to see if the symptoms will go away. ??? Do not drive yourself to the hospital. Summary ??? Pharyngitis is a sore throat (pharynx). This is when there is redness, pain, and swelling in your throat. ??? Most of the time, pharyngitis gets better on its own. Sometimes, you may need medicine. ??? If you were prescribed an antibiotic medicine, take it as told by your doctor. Do not stop taking the antibiotic even if you start to feel better. This information is not intended to replace advice given to you by your health care provider. Make sure you discuss any questions you have with your health care provider. Document Revised: 11/04/2021 Document Reviewed: 11/04/2021 [employer] Patient Education ? 2023 [employer] [facility] 11-29-2023 History of Presen t illness Narrative Subjective: Isaura Hayden female who is 73 y.o. female who is s/p a RALH-BSO on 11/14/23. Pathology: benign She is doing well post-operatively. Normal bowel and bladder habits. No fevers, chills, N/V, N/T, SOB, vaginal bleeding. Patient was originally a consultation from Dr. Das for evaluation and management of thickened endometrium and postmenopausal bleeding with cervical stenosis. Isaura Hayden Denies Early satiety Denies Abdominal distention Denies Leg swelling Denies Shortness of breath Denies Vaginal bleeding Denies Change in bowel habits Denies Change in bladder habits Denies Nausea and vomiting All other systems negative, unless specifically noted in HPI. Past Gynecologic History: OB History No obstetric history on file. No LMP recorded. Patient has had an implant. Hormonal Contraceptives No HRT use No History of abnormal pap No Past Surgical History: Procedure Laterality Date ANGIOMA CAUTERY Right x3 thigh- toddler & child, groin-age 15 CHOLECYSTECTOMY COLONOSCOPY 2022 COLONOSCOPY AND POLYPECTOMY 01/12/2018 Performed by Nitesh Littlejohn MD at [facility]OTIC ASSISTED HYSTERECTOMY, BILATERAL SALPINGO OOPHORECTOMY, PELVIC WASHINGS Bilateral 11/14/2023 Performed by Nabil Lord MD at [facility] SURGERY HEMORROIDECTOMY SKIN BIOPSY Right 2017 thigh TONSILLECTOMY age 15 Past Medical History: Diagnosis Date Dental disease some missing teeth Fractures 06/29/2023 left foot Glaucoma High cholesterol Hypercholesterolemia 12/27/2016 Hypertension Iron deficiency anemia 12/27/2016 Osteoporosis Pancreatitis Pneumonia Visual impairment glasses Family History Problem Relation Age of Onset [...] Hx Vision loss Neg Hx Social History Socioeconomic History Marital status: Spouse name: Not on file Number of children: Not on file Years of education: Not on file Highest education level: Not on file Occupational History Not on file Tobacco Use Smoking status: Never Passive exposure: Past Smokeless tobacco: Never Vaping Use Vaping Use: Never used Substance and Sexual Activity Alcohol use: Yes Alcohol/week: 7.0 standard drinks of alcohol Types: 7 Glasses of wine per week Drug use: No Sexual activity: Yes Partners: Male control/protection: None Other Topics Concern Not on file Social History Narrative Not on file Social Determinants of Health Financial Resource Strain: Not on file Food Insecurity: No Food Insecurity (11/07/2023) Hunger Screening Food Insecurity - Worry: Never True Food Insecurity - Inability: Never True Transportation Needs: Not on file Physical Activity: Not on file Stress: Not on file Social Connections: Not on file Interpersonal Safety: Not on file Housing Instability: Not on file Review of Symptoms: Pertinent items are noted in HPI. Objective: BP 142/71 Pulse 57 Temp 36.6 C (97.8 F) (Oral) Resp 16 Ht 162.6 cm (5' 4.02 ) Wt 75.3 kg (166 lb) SpO2 100% BMI 28.48 kg/m ECO- Asymptomatic General appearance: alert, appears stated age and cooperative Head: Normocephalic, without obvious abnormality, atraumatic Lungs: clear to auscultation bilaterally Heart: regular rate and rhythm, S1, S2 normal, no murmur, click, rub or gallop Abdomen: soft, nontender, 5 laparoscopic incisions c/d/I without evidence of infection Pelvic: deferred to next visit Extremities: extremities normal, atraumatic, no cyanosis or edema Pulses: 2+ and symmetric Skin: Skin color, texture, turgor normal. No rashes or lesions Lymph nodes: Cervical, supraclavicular, and axillary nodes normal. Neurologic: Grossly normal Labs: Lab Results Component Value Date WBC 5.6 11/09/2023 HGB 12.4 11/09/2023 HCT 35.6 11/09/2023 MCV 96 11/09/2023 PLT 284 11/09/2023 Lab Results Component Value Date GLU 110 (H) 11/09/2023 CALCIUM 9.2 11/09/2023 SODIUM 143 11/09/2023 K 4.1 11/09/2023 CO2 28 11/09/2023 BUN 18 11/09/2023 CREATININE 1.17 (H) 11/09/2023 No results found for: CA125 Assessment: Patient is diagnosed with Patient Active Problem List Diagnosis Hypercholesterolemia Arthritis Iron deficiency anemia Endometrial thickening on ultrasound Postmenopausal bleeding Plan: Post op care - she is progressing well. We discussed the postop lifting and pelvic restrictions over the next several weeks. Follow-up in 4 weeks for vaginal cuff check. Reviewed pathology which was benign. She may resume well woman care with her PCP or Dr. Das following post op care. *The patient has a documented plan of care to address pain. All questions were answered to the patient's satisfaction. She is agreeable to this plan of care. *This note was completed using a voice md pediatric allergist system. Every effort was made to ensure accuracy. However, inadvertent computerized md pediatric allergist errors may be present. .Total time spent was 20 minutes: Preparing to see the patient (e.g., review of tests) Performing a medically appropriate examination and/or evaluation Counseling and educating the patient/family/caregiver Documenting clinical information in the electronic or other health record Care coordination (not separately reported) Mary Pennington PA-C, RD, IF JASON Zaragoza 11/29/23 1101 documented in this encounter [facility] 11-07-2023 Instructions Formatting of th is note might be different from the original. Your surgery/procedure is scheduled at [facility] on 11/14/2023 at 11 am Arrival Time 9 am [facility] Address: [address] [place] [address], [address] [place] [address] in the Emergency Center Parking lot. Report to the manager front office in the Emergency/Surgery Registration lobby of the hospital. Please call Pre-Admission Clinic at [phone] if you have any questions prior to surgery. For questions the morning of surgery, please call the Pre-op Department at [phone]. Notify your SURGEON if you develop any [...] would like to schedule therapy at a [facility] Rehab facility, please call [phone] ([phone]). Do not use lotions, creams, powders, perfume, make up, cologne or after-shaves day of surgery. Remove ALL jewelry including wedding rings, body piercings, hair extensions that contain metal, nail barbadian, make-up, and contact lens. You may brush your teeth the morning of surgery, but do not swallow the water. Wear your dentures and partial plates to the hospital (no adhesive). Shower the night the before. If applicable, use the CHG (chlorhexidine gluconate) soap or wipes. Please be advised, [facility] has transitioned to a cashless payment system. [...] RIGHTS AND RESPONSIBILITIES As a patient at [facility], you have the right to: Receive medical care and be informed of who is taking care of you Be treated with dignity and respect Have a family member/employer relations representative of choice and your physician notified of your admission Receive information and actively participate in decisions about your care and treatment Refuse care, treatment and services Decide who may provide your support and speak for you Access mormon and spiritual services Participate in ethical issues [...] of hospital charges and payment methods Patient/patient employer relations representative responsibilities are to: Provide information about health status to facilitate care, treatment and services Follow the treatment, plan, keep appointments and speak up when you do not understand the plan Respect the rights of other patients and healthcare personnel Follow organizational rules and regulations that support quality care and a safe environment Fulfill financial obligations as promptly as possible [facility] 11-07-2023 Miscellaneous Notes Pt is going to [facility] on 11/09/2023 to havre EKG, CXR and labs. Your surgery/procedure is scheduled at [facility] on 11/14/2023 at 11 am Arrival Time 9 am [facility] Address: [address] [place] [address], [facility] in the Emergency Center Parking lot. Report to the manager front office in the Emergency/Surgery Registration lobby of the hospital. Please call Pre-Admission Clinic at [phone] if you have any questions prior to surgery. For questions the morning of surgery, please call the Pre-op Department at [phone]. Notify your SURGEON if you develop any [...] would like to schedule therapy at a [facility] Rehab facility, please call [phone] ([phone]). Do not use lotions, creams, powders, perfume, make up, cologne or after-shaves day of surgery. Remove ALL jewelry including wedding rings, body piercings, hair extensions that contain metal, nail barbadian, make-up, and contact lens. You may brush your teeth the morning of surgery, but do not swallow the water. Wear your dentures and partial plates to the hospital (no adhesive). Shower the night the before. If applicable, use the CHG (chlorhexidine gluconate) soap or wipes. Please be advised, [facility] has transitioned to a cashless payment system. [...] RIGHTS AND RESPONSIBILITIES As a patient at [facility], you have the right to: Receive medical care and be informed of who is taking care of you Be treated with dignity and respect Have a family member/employer relations representative of choice and your physician notified of your admission Receive information and actively participate in decisions about your care and treatment Refuse care, treatment and services Decide who may provide your support and speak for you Access mormon and spiritual services Participate in ethical issues [...] of hospital charges and payment methods Patient/patient employer relations representative responsibilities are to: Provide information about [...] promptly as possible documented in this encounter [facility] 11-07-2023 Nurse Note Pt is going to [facility] on 11/09/2023 to havre EKG, CXR and labs. [facility] 10-28-2023 Miscellaneous Notes Spoke with Mee 3 and 3 to confirm surgery plan. Patient is scheduled at [facility] with Dr Lord on 11/14/23. She knows to arrive at 9:00a for 11:00a surgery. Patient knows to call [phone] to locate closest [facility] facility in order to complete PAT testing. She has phone call PAT scheduled for 11/07/23. She will follow up with Mary in [place] on 11/29/23 at 10:30a. documented in this encounter [facility] 10-28-2023 Telephone encounter Note Spoke with Mee 3/Raisa and 38 to confirm surgery plan. Patient is scheduled at [facility] with Dr Lord on 11/14/23. She knows to arrive at 9:00a for 11:00a surgery. Patient knows to call [phone] to locate closest [facility] facility in order to complete PAT testing. She has phone call PAT scheduled for 11/07/23. She will follow up with Mary in [place] on 11/29/23 at 10:30a. [facility] 10-26-2023 History of Presen t illness Narrative [...] personal or family history of GI or electronic data processing auditor malignancies. Oncology History No overview note Isaura [...] 01/12/2018 Performed by Nitesh Littlejohn MD at [facility] HEMORROIDECTOMY TONSILLECTOMY Past Medical History: Diagnosis [...] procedures Referring and communicating with other health manager medicare (not separately reported) Documenting clinical information in the electronic or other health record Independently interpreting results (not separately reported) and communicating results to the patient/family/caregiver Nabil Lord MD [facility] Miscellaneous Notes Left VM to schedule OPERATIONS PLANNER appt with electronic data processing auditor onc, call back # provided. Requested images from pelvic US be pushed via PACS from [employer]. documented in this encounter [email or web address] 10-19-2023 Telephone encounter Note Left VM to schedule OPERATIONS PLANNER appt with electronic data processing auditor onc, call back # provided. Requested images from pelvic US be pushed via PACS from [employer]. [email or web address] 08-11-2023 Note Procedures Choosing a Surgeon When [...] a surgeon: ? Is certified by the [place] [employer]. To be board certified, a surgeon must go through an approved residency training program and pass a comprehensive exam. You can check your surgeon's board certification at www.abms.org/verify-certificati on/ ? Has had any problems with state licensing authorities. You can check whether a surgeon has had malpractice claims or other professional problems by going to your state medical board at www.fsmb.org/pavowns-w-qbsuk-mi dical-board/ ? Has good ratings from other patients and providers. You may be able to get a consumer rating on your surgeon at www.checkbook.org/surgeonrating s/ Step 3: Research the hospital or clinic [...] you are considering is certified by the [place] [employer]. ? Meet with [...] Reviewed: 10/19/2021 Elsevier Patient Education ? 2022 [employer]. [facility] 08-05-2022 Note PROCEDURE: XR FOOT [...] in this area. Electronically authenticated by: ALAN CÁRDENAS Date: 2022-08-04 22:03 [facility] Evaluation + Plan note Future Appointments Appointment Date:05/30/2023 02:00:00 PM Scheduled Provider: Location:[facility] Appointment Type: Medicare Wellness Subsequent Appointment Date:05/30/2023 02:40:00 PM Scheduled Provider:Anamaria Chinchilla MD Location:[facility] Appointment Type: Open Diagnostic Tests PendingUrine Culture 05/11/23 [facility] Evaluation + Plan note Future Appointments Appointment Date:07/30/2024 10:30:00 AM Scheduled Provider:Anamaria Chinchilla MD Location:[facility] Appointment Type: Open Appointment Date:07/30/2024 11:00:00 AM Scheduled Provider: Location:[facility] Appointment Type:FM Medicare Wellness Subsequent Diagnostic Tests PendingUrine Culture 05/07/24 [facility] Evaluation + Plan note Future Appointments Appointment Date:01/28/2025 08:45:00 AM Scheduled Provider:Anamaria Chinchilla MD Location:[facility] Appointment Type: Open Appointment Date:08/01/2025 11:00:00 AM Scheduled Provider: Location:[facility] Appointment Type: Medicare Wellness Subsequent [facility] Evaluation note Diagnosis Endometrial thickening on ultrasound- Primary Postmenopausal bleeding [facility] Diagnosis Preop testing- Primary Unspecified pre-operative examination [facility] Diagnosis Well woman exam with routine gynecological exam Routine gynecological examination Breast cancer screening by mammogram Postmenopausal state Asymptomatic postmenopausal status (age-related) (natural) [facility] Diagnosis Encounter for postoperative care- Primary [facility] Narrative No data available for this section [facility] No data available for this section [facility] filedocumented in this encounter [facility] filedocumented in this encounter [facility] on filedocumented in this encounter [facility] filedocumented in this encounter [facility] on filedocumented in this encounter [facility] No data available for this section [facility] Summary Purpose Family History No Family History Records FoundNo Family History Records FoundNo Family History Records FoundNo Family History Records FoundNo Family History Records FoundNo Family History Records FoundNo Family History Records Found No data available for this section No Family History Records Found No data available for this section No Family History Records FoundNo Family History [...] Referral Specialty Diagnoses / Procedures Referred By Contac t Referred To Contact Diagnoses Preop testing Procedures ECG 12 lead Nabil Lord MD [address] [place] [address], [address] [place] [address] Referral ID Status Reason Start Date Expiration Date V isits Requested Visits Authorized [id number] Pending Review 10/28/2023 10/27/2024 1 1 Additional Source Comments INFORMATION SOURCE (unrecogn ized section and content) DATE CREATED AUTHOR 02/13/2018 [facility] DATE CREATED AUTHOR AUTHOR'S ORGANIZ ATION 08/12/2022 [facility] [place] [facility] DATE CREATED AUTHOR AUTHOR'S ORGANIZ ATION 10/27/2023 [facility] DATE CREATED AUTHOR AUTHOR'S ORGANIZ ATION 10/28/2023 [facility] DATE CREATED AUTHOR AUTHOR'S ORGANIZ ATION 11/18/2023 [facility] DATE CREATED AUTHOR AUTHOR'S ORGANIZ ATION 12/28/2023 [facility] DATE CREATED AUTHOR AUTHOR'S ORGANIZ ATION 05/15/2024 [facility] DATE CREATED AUTHOR AUTHOR'S ORGANIZ ATION 08/10/2024 [facility] DATE CREATED AUTHOR AUTHOR'S ORGANIZ ATION 08/12/2024 [facility] DATE CREATED AUTHOR AUTHOR'S ORGANIZ ATION 08/13/2024 [facility] DATE CREATED AUTHOR AUTHOR'S ORGANIZ ATION 09/03/2024 [facility] DATE CREATED AUTHOR AUTHOR'S ORGANIZ ATION 09/11/2024 [facility] DATE CREATED AUTHOR AUTHOR'S ORGANIZ ATION 09/13/2024 [facility] Patient Care team informatio n (unrecognized section and content) Mobility Specialist Relationship Specialty Start Date End Date Anjelica Gambino MD [facility] [place] [address] PCP - General Family Medicine 12/24/16 Mobility Specialist Relationship Specialty Start Date End Date Anjelica Gambino MD [facility] [address] [place], [place] [id number] PCP - General Family Medicine 12/24/16 Mobility Specialist Relationship Specialty Start Date End Date Anjelica Gambino MD [address] [place], [place] [id number] PCP - General Family Medicine 12/24/16 Mobility Specialist Relationship Specialty Start Date End Date Anamaria Chinchilla MD [address] [place], [place] [id number] PCP - General Family Medicine 11/07/23 Mobility Specialist Relationship Specialty Start Date End Date Anjelica Gambino MD [address] [place] [address] PCP - General Family Medicine 01/27/23 Mobility Specialist Relationship Specialty Start Date End Date Anjelica Gambino MD [address] [place] [address] PCP - General Family Medicine 01/27/23 Reason for Visit (unrecogniz ed section and content) Reason Comments Well Women Visit Reason Comments Follow-up FOR RECORDS PERTAINING TO PATIENTS WHO ARE [...] BE BASED ON THE PRIMARY CLINICAL RECORDS. [employer] provides no warranty or guarantee of the accuracy or completeness of information in this document.
[2024-09-14] MEDS: 0.9 % SODIUM CHLORIDE 1,000 ML 1000 ML IV (13:49)
[2024-09-14] MEDS: ONDANSETRON PF 4 MG/2 ML VIAL IV (13:49)
[2024-09-14 14:03] LABS: Hematocrit 31.3 % (36.0-48.0); Hemoglobin 10.8 g/dL (12.0-16.0); Mean Corpuscular HGB Conc 34.5 g/dL (29.9-35.2); Mean Corpuscular Hemoglobin 33.9 pg (26.7-34.0); Mean Corpuscular Volume 98.1 fL (81.0-99.0); Mean Platelet Volume 9.2 fL (9.5-13.5); Platelet Count 296 10^3/uL (150-450); Red Blood Count 3.19 10^6/uL (4.20-5.40); Red Cell Distribution Width 12.1 % (11.0-15.0)
[2024-09-14 14:19] LABS: Lactate/Lactic Acid 1.8 mmol/L (0.4-2.0); Troponin I High Sensitivity <4.0 pg/mL (4.0-51.3)
[2024-09-14 14:25] LABS: Alanine Aminotransferase 15 U/L (14-59); Albumin Globulin Ratio 0.9; Albumin Level 3.4 g/dL (3.4-5.0); Alkaline Phosphatase 50 U/L (46-116); Anion Gap 11.8; Aspartate Amino Transferase 14 U/L (15-37); BUN Creatinine Ratio 13.2; Bilirubin Total 0.2 mg/dL (0.2-1.0); Calcium 8.5 mg/dL (8.5-10.1); Carbon Dioxide 25.9 mmol/L (21.0-32.0); Chloride 103 mmol/L (98-107); Estimated GFR (African America 46 (>=60 mL/min/1.73m^2); Estimated GFR (Non-African Ame 38 (>=60 mL/min/1.73m^2); Globulin 3.6 g/dL; Glucose 138 mg/dL (74-106); Potassium 3.7 mmol/L (3.5-5.1); Sodium 137 mmol/L (136-145)
[2024-09-14] MEDS: PROMETHAZINE HCL 12.5 MG in 0.9 % SODIUM CHLORIDE 50 ML 202 MG IV (14:30)
[2024-09-14 14:39] LABS: Atypical Lymphocytes Abs Man 0.12; Eosinophils Absolute Manual 0.18 10^3/uL (0.00-0.70); Lymphocytes Absolute Manual 1.92 10^3/uL (1.20-3.80); Monocytes Absolute Manual 0.48 10^3/uL (0.30-0.80)
== END 2024-09-14 16:38 | disposition home or self-care (01) ==
PROVIDERS: Physician Assistant; Emergency Provider Emergency Medicine; PCP Family Medicine
DX: R55 Syncope and collapse (principal); R11.2 Nausea with vomiting, unspecified; Z98.890 Other specified postprocedural states; Z79.82 Long term (current) use of aspirin; I10 Essential (primary) hypertension; Z90.49 Acquired absence of other specified parts of digestive tract
CPT/HCPCS: 36415; 80053; 81001; 83605; 84484; 85007; 85027; 93005; 96361; 96365; 96375; 99285; J2405; J2550

== ENCOUNTER 2024-09-18 12:46 | Outpatient (OUT) | payer MEDICARE, SELFPAY ==
--- NOTE | 2024-09-18 12:50 | XR_ITS ---
[address] [address] Patient Name: PAPITO HAYDEN MRN: [id number] date: 1950 Sex: F Assigned Patient Location: [facility] Current Patient Location: [facility] Accession/Order Number: [id number] Exam Date: 09/18/2024 13:05 Report Date: 09/18/2024 13:44 At the request of: SUNG COPELAND Procedure: XR foot SARAHI min 3V EXAMINATION: XR foot SARAHI min 3V HISTORY: Pain COMPARISON: 08/08/2024 FINDINGS: RIGHT FINDINGS: BONES: Subacute healing transverse intra-articular fracture proximal diaphysis of the fifth metatarsal. Mild to moderate degenerative changes. SOFT TISSUES: Negative. No visible soft tissue swelling. OTHER: Negative. LEFT FINDINGS: BONES: Subacute healing transverse fracture proximal diaphysis of the second metatarsal. Mild to moderate degenerative changes. SOFT TISSUES: Negative. No visible soft tissue swelling. OTHER: Negative. XR/XR foot SARAHI min 3V IMPRESSION: RIGHT CONCLUSION: Subacute fracture fifth metatarsal LEFT CONCLUSION: Subacute fracture second metatarsal Electronically authenticated by: KVNG TILLMAN Date: 09/18/2024 13:44
--- OUTSIDE RECORDS SUMMARY | 2024-09-18 12:54 | XMS_ITS | CCD ---
Author Organization [facility] Inform ion Partnership [facility] Care Team Providers Care Weed Inspector Name Role Phone FARA BOOKER Unavailable Unavailable [...] Consulting Unavailable KARASIK, DR CHAUDHARI Attending Unavailable KARASIMagdalena, DR CHAUDHARI Admitting Unavailable ZIEBYAZMIN, DR ALAN [...] Attending Unavailable KARASIK, DR CHAUDHARI Admitting Unavailable PRIMO, DR KVNG Mendoza Consulting Unavailable Anamaria Chinchilla. Primary Care Physician [phone] Anjelica Gambino MD Primary Care Provider [phone] NABIL LORD Attending Unavailable BELEN, ANJELICA Bergeron Referring Unavailable GAMBINO, ANJELICA Bergeron Primary Care Unavailable BELEN, ANJELICA Bergeron Referring Unavailable BELEN, ANJELICA Bergeron Primary Care Unavailable Anamaria Chinchilla MD Primary Care Provider ANJELICA GAMBINO Referring Unavailable AMOR, ANAMARIA E Primary Care Unavailable CAROLYN, NABIL C Admitting Unavailable CAROLYN, NABIL C Attending Unavailable CAROLYN, NABIL C Referring Unavailable GAMBINO, ANJELICA E Primary Care Unavailable SUNG NIÑO Attending Unavailable AMOR, ANAMARIA Rubio Primary Care Unavailable CAROLYN, NABIL C Attending Unavailable CAROLYN, NABIL C Referring Unavailable ROSS, ANAMARIA E Primary Care Unavailable CAROLYN, NABIL C Attending Unavailable CAROLYN, NABIL C Referring Unavailable ROSS, ANAMARIA E Primary Care Unavailable CAROLYN, NABIL C Referring Unavailable AMOR, ANAMARIA E Primary Care Unavailable MARY PENNINGTON Attending Unavailable BELEN, ANJELICA E Referring Unavailable AMOR, ANAMARIA Bergeron Primary Care Unavailable MARY PENNINGTON Attending Unavailable [...] Unavailable Anjelica Gambino MD Primary Care Provider BENTLEY DAS Attending Unavailable BENTLEY DAS Attending Unavailable Kushal Keith Attending Unavailable Anamaria Chinchilla Attending Unavailable Anamaria Chinchilla Admitting Unavailable Leonidas, WELD ENGINEER Violet Rosado Attending Unavailable Anamaria Chinchilla Attending Unavailable Anamaria Chinchilla Attending Unavailable Allergies Allergy Classification Reported Allergen(s) Allergy Type Date of Onset Reaction(s) Facility (5 sources) atorvastatin; Translations: [atorvastatin] Drug Allergy Unknown (qualifier value) [facility] (13 sources) HYDROmorphone; Translations: [hydromorphone] Drug Allergy 3 Unknown (qualifier value), Confusion, Hallucinations, Unknown [facility] (5 sources) Pyrilamine; Translations: [pyrilamine] Drug Allergy Unknown (qualifier value) [facility] (3 sources) No Known Medication Allergies; Translations: [No Known Medication Allergies] Propensity to adverse reactions (disorder) [facility] Repository Medications Current Medications Medication Drug Class(es) Dates Sig (Normalized) Sig (Original) amLODIPine 5 mg oral tablet (9 sources) Dihydropyridine Calcium Channel Sylvester Start: 06-01-2023 take 1 tablet by mouth once daily amLODIPine 5 mg Tab See Instructions, TAKE 1 TABLET BY MOUTH DAILY, # 90 tab(s), Refills(s) 0, Pharmacy: [facility] [id number], 162, cm, 05/07/24 14:07:00 EDT, Height/Length Dosing, [...] Start: 11-29-2022 take 1 capsule by mo [facility] once daily aspirin 81 mg oral capsule [...] Refill(s) 0 Start Date: 05/30/23 Status: Ordered Slwgapa-Vaxxypogog-Otz harp D (VITAMIN D3/CALCIUM/PHOSPHORUS PO) (3 sources) take 1 dose by mouth once in the morning Ayptkns-Qtrknuwdmy-Yth harp D (VITAMIN D3/CALCIUM/PHOSPHORUS PO) Take 1 [...] Active docusate sodium 50 mg / sennosides, nursing home 8.6 mg oral tablet (1 source) Start: [...] day(s), # 14 cap(s), Refills(s) 0, Pharmacy: [facility] [id number], 162, cm, 05/07/24 14:07:00 EDT, Height/Length Dosing, [...] capsule (6 sources) Start: 12-02-19 Krill Oil ([place]ot[place]-3) 500 MG capsule Take 500 mg by mouth. 12/01/2022 Active losartan potassium 100 mg oral tablet (9 sources) Angiotensin 2 Receptor Sylvester Start: 05-30-20 take 1 tablet by mouth in the morning losartan (Cozaar) 100 MG tablet Take 100 mg by mouth in the morning. 05/30/2023 Active Start: 12-15-2022 take 1 tablet by silver th twice daily losartan 25 mg Tab 25 mg = 1 tab(s), Oral, BID, # 180 tab(s), Refills(s) 0, Pharmacy: [facility] [id number], 162, cm, 05/11/23 9:36:00 EDT, Height/Length Dosing, 74.9, kg, 05/11/23 9:36:00 EDT, Weight Dosing Start Date: 05/11/23 Status: Ordered meloxicam 15 mg oral tablet (5 sources) Nonsteroidal Anti-inflammatory Drug Start: 02-27-2023 End: 11-07-2023 take 1 tablet by mouth once daily as needed meloxicam 15 mg Tab See Instructions, TAKE ONE TABLET BY MOUTH DAILY NEEDED, # 90 tab(s), Refills(s) 0, Pharmacy: [facility] [id number], 162.6, cm, 12/01/22 15:23:00 EDT, Height/Length Dosing, 76.5, kg, 12/01/22 15:23:00 EDT, Weight Dosing Start Date: 02/27/23 Status: Ordered omega-3 acid ethyl esters (nursing home) 1000 mg oral capsule (2 sources) take [...] DAILY, # 90 tab(s), Refills(s) 4, Pharmacy: [facility] [id number], 162, cm, 09/01/23 11:37:00 EST, Height/Length Dosing, [...] 0 12/01/2022 Active take 1 capsule by mo ut once daily at dinner vitamin E, dl,tocopheryl acet, (vitamin E, dl, acetate,) 180 mg (400 unit) capsule Take 1 capsule (400 Units total) by mouth Daily before evening meal. 0 Active take 1 capsule by mo uth in the morning vitamin E, dl,tocopheryl acet, [...] Name Value Interpretation Reference Range Facil ity Family Medicine Office/Clini c Noteon 09-17-2024 Family Medicine Office/Clinic Note Family Medicine Office/Clinic Note HPI Staff Isaura is a 74 year old female presenting for follow up cat bite MEERA: 09/10/24 cat bite was improving pt to continue on ATB, right ankle Pt had appointment 09/11/24 Dr Keith and she had told them about her cat bite they looked at it and had her go straight to the surgery center and cleaned it out under local she went back on 09/13/24 for MRI to be done of right leg. On 09/14/24 she went back for surgery under anesthesia for it to be cleaned about again, Pt states on her way home she doesn't remember anything she had passed out and her call the squad transferred to [facility] she did vomit a few times and had episode of incontinence. History of Present Illness pt presents today to discuss multiple events that have transpired this week Review of Systems PHQ Score Initial Depression Screen Score: 0 SCORE Physical Exam Vitals & Measurements T: 36.7 ???C(Tympanic) HR: 78(Peripheral) RR: 18 BP: 140/88 HT: 64 in HT: 162 cm WT: 77.9 kg WT: 171.74 lb BMI: 29.68 General: alert, no acute distress ENMT: oral mucosa moist, no pharyngeal erythema or exudate Cardiovascular: regular rate and rhythm, normal peripheral perfusion Respiratory: Lungs CTA, respirations non labored Extremities: no deformity, no trauma Neurological: oriented x 4, LOC appropriate for age, CN II-XII intact, motor strength equal & normal bilaterally, speech normal right lower leg wrapped Assessment/Plan 1. Cat bite of lower leg (S81.859A: Open bite, unspecified lower leg, initial encounter) pt was bit by her cat on 09/06. ended up having it opened and drained twice in the last week. returns to surgeon tomorrow to have dressing changed. she was treated with 3 doses of rocephen while at hospital. and has one more day of Augmentin that Dr. Chinchilla had originally ordered for her. pt denies needs at this time. she just wanted to update PCP on what has happened since she was seen last. 2. Syncope (R55: Syncope and collapse) when on her way home from 2nd I&D of cat bite wound (after general anesthesia) she passed out in the vehicles. her called 911 and was taken to [facility]. was hydrated with IV fluids and given zofran. was then discharged home. pt has felt fine since the episode. discussed this could have been caused by her being dehydrated, low blood sugar (due to being NPO) and response to medication they used to put her to sleep. In reviewing her labs her HGB is a little low. discussed rechecking that in a few weeks. 3. Biceps tendinitis (M75.20: Bicipital tendinitis, unspecified shoulder) pt was seen at [facility] ortho Dr. Keith to go over MRI of shoulder results. they looked at her cat bite and she was scheduled to have it drained the very next day. MRI of shoulder showed Bicep tendinitis. 4. BMI 29.0-29.9,adult (Z68.29: Body mass index [BMI] 29.0-29.9, adult) BMI education given 5. Non-smoker (Z78.9: Other specified health status) continue not smoking Follow-up No qualifying data available Problem List/Past Medical History Ongoing Age-related osteoporosis without current pathological fracture Anemia Biceps tendinitis BMI 28.0-28.9,adult BMI 29.0-29.9,adult Cat bite Cat bite of lower leg Chronic cough CKD stage 3a, GFR 45-59 ml/min Fatigue Foot pain, right Hypercholesterolemia Hyperlipidemia Hypertension Hypertensive kidney disease with stage 3a chronic kidney disease Left arm pain Osteoporosis Postmenopause bleeding Right sided abdominal pain Syncope TIA (transient ischemic attack) Historical No qualifying [...] Given Postpone due to refusal pneumococcal 23-valent v (more content not included)... Normal [facility] Comment on above: Result Comment: Elec tronically Signed By: Violet Allen.br\Date and Time Signed: 09/17/24 11:46 EST Tobi Whelan 09-13-2024 Tobi DESIR -- - Pre No anaerobic growth after 48 hrs. Normal [facility] Comment on above: Performed By: #### A NAC #### [facility] [address] [place] [address] C Woundon 09-13-2024 C Wound -- - Final No growth at 48 hours. Normal [facility] Comment on above: Performed By: #### W DC #### [facility] [address] [place] [address] Family Medicine Office/Clini c Noteon 09-11-2024 Family Medicine Office/Clinic Note Family Medicine Office/Clinic Note HPI Staff Isaura is a 74 year old female presenting with a cat bite on right ankle Onset: History of Present Illness Pt was bit 1-2 days before presenting to [place]. [place] [facility] who started the patient on Abx. Area [...] pneumococcal 23-valent vaccine 06/25/2008 Recorded Normal [facility] Comment on above: Result Comment: Elec tronically Signed By: Amor SHORT, nAamaria Saldivar.br\Date and Time Signed: 09/11/24 12:15 EST OR Trackon 09-11-2024 Specimens Received From [facility] Comment on above: Performed By: #### O [facility] Tracking Order #### [facility] [address] [place] [address] Ambulatory Visit Summaryon 0 09-10-2024 Ambulatory Visit Summary Ambulatory Visit Summary ISAURA HAYDEN :1950 Visit Date:09/10/2024 Ambulatory Visit Instructions Your [...] AM EDT With: Anamaria Chinchilla MD Where: [address] [address] 2024 11:00 AM EST With: Where: [address] [address]- Medications What How Much When [...] you for choosing us for your care. [facility] Ambulatory Visit Summaryon 0 08-27-2024 Ambulatory Visit [...] EDT With: Amor SHORT, Anamaria Harvey Where: [address] [address] 2024 11:00 AM EST With: Where: [address] [address]- Medications What How Much When Instructions Unchanged [...] for choosing us for your care. Normal [facility] Family Medicine Office/Clini c Noteon 08-27-2024 Family [...] ortho for this. Follow up PRN Ordered: [facility] External Ambulatory Referral 2. CKD stage 3a, GFR 45-59 ml/min (N18.31: Chronic kidney disease, stage 3a) Improved on last lab work. Follow up PRN Ordered: A1c POC [id number] [facility] External Ambulatory Referral 3. BMI 29.0-29.9,adult (Z68.29: Body mass index [BMI] 29.0-29.9, adult) BMI education added Ordered: [facility] External Ambulatory Referral 4. Age-related osteoporosis without current pathological fracture (M81.0: Age-related osteoporosis without current pathological fracture) Reviewed Labs and Dexa. Prolia does not seem to be helping. Follows with Dr. Das. Ordered: [facility] External Ambulatory Referral Follow-up No qualifying data [...] A1c POC: 5.2 % (08/27/24 12:02:00) Normal [facility] Comment on above: Result Comment: Elec tronically Signed By: Amor SHORT, Anamaria Jacobsonbr\Date and Time Signed: 08/27/24 12:03 EST CBC w/ Auto Diffon 4 Basophils/100 WBC (Bld) 0.7 % Normal 0.0-2.0 [facility] Comment on above: Performed By: #### 2 [id number] #### [facility] [address] [place] [address] Basophils/Leukocyte s Auto (Bld) [Pure # fraction] 0.1 E9/L Normal 0.0-0.2 [facility] Comment on above: Performed By: #### 2 [id number] #### [facility] [address] [place] [address] Eosinophils (Bld) [#/Vol] 0.3 E9/L Normal 0.0-0.5 [facility] Comment on above: Performed By: #### 2 [id number] #### [facility] [address] [place] [address] Eosinophils/100 WBC (Bld) 3.2 % Normal 0.0-8.0 [facility] Comment on above: Performed By: #### 2 [id number] #### [facility] [address] [place] [address] Erythrocyte distribution width (RBC) [Ratio] 13.7 % Normal 10.9-14.2 [facility] Comment on above: Performed By: #### 2 [id number] #### [facility] [address] [place] [address] Hematocrit (Bld) [Volume fraction] 36.1 % Normal 34.0-46.0 [facility] Comment on above: Performed By: #### 2 [id number] #### [facility] [address] [place] [address] Hemoglobin (Bld) [Mass/Vol] 12.3 g/dL Normal 12.0-16.0 [facility] Comment on above: Performed By: #### 2 [id number] #### [facility] [address] [place] [address] Lymphocytes (Bld) [#/Vol] 1.7 E9/L Normal 1.0-4.0 [facility] Comment on above: Performed By: #### 2 [id number] #### [facility] [address] [place] [address] Lymphocytes/100 WBC (Bld) 20.6 % Normal 14.0-50.0 [facility] Comment on above: Performed By: #### 2 [id number] #### [facility] [address] [place] [address] MCH (RBC) [Entitic mass] 33.6 pg Normal 27.0-34.0 [facility] Comment on above: Performed By: #### 2 [id number] #### [facility] [address] [place] [address] MCHC (RBC) [Mass/Vol] 34.1 g/dL Normal 31.4-36.0 [facility] Comment on above: Performed By: #### 2 [id number] #### [facility] [address] [place] [address] MCV (RBC) [Entitic vol] 98.7 fL Normal 80.0-100.0 [facility] Comment on above: Performed By: #### 2 [id number] #### [facility] [address] [place] [address] Monocytes (Bld) [#/Vol] 0.6 E9/L Normal 0.2-1.0 [facility] Comment on above: Performed By: #### 2 [id number] #### [facility] [address] [place] [address] Neutrophils (Bld) [#/Vol] 5.8 E9/L Normal 2.0-7.5 [facility] Comment on above: Performed By: #### 2 [id number] #### [facility] [address] [place] [address] Neutrophils/100 WBC (Bld) 68.8 % Normal 36.0-75.0 [facility] Comment on above: Performed By: #### 2 [id number] #### [facility] [address] [place] [address] Platelet 304.0 E9/L Normal 150.0-500.0 [facility] Comment on above: Performed By: #### 2 [id number] #### [facility] [address] [place] [address] Platelet mean volume (Bld) [Entitic vol] 8.4 fL Normal 6.4-10.8 [facility] Comment on above: Performed By: #### 2 577125 #### [facility] [address] [place] [address] RBC (Bld) [#/Vol] 3.7 E12/L Low 4.3-5.9 [facility] Comment on above: Performed By: #### 2 [id number] #### [facility] [address] [place] [address] WBC corrected for nucl RBC Auto (Bld) [#/Vol] 8.5 E9/L Normal 4.0-11.0 [facility] Comment on above: Performed By: #### 2 [id number] #### [facility] [address] [place] [address] CHEMISTRYOrdered By: SYSTEM SYSTEM on 08-09-2024 25-hydroxyvitamin [...] 08-09-2024 Albumin [Mass/Vol] 4.4 g/dL Normal 3.3-5.0 [facility] Comment on above: Performed By: #### 2 [id number] #### [facility] [address] [place] [address] Albumin/Globulin (S) [Mass conc ratio] 1.6 Normal 1.1-2.2 [facility] Comment on above: Performed By: #### 2 [id number] #### [facility] [address] [place] [address] ALP [Catalytic activity/Vol] 52 Int._Unit/L Normal 21-98 [facility] Comment on above: Performed By: #### 2 [id number] #### [facility] [address] [place] [address] ALT No additional P-5'-P [Catalytic activity/Vol] 14 Int._Unit/L Normal 6-46 [facility] Comment on above: Performed By: #### 2 [id number] #### [facility] [address] [place] [address] Anion gap [Moles/Vol] 11 mmol/L Normal 6-16 [facility] Comment on above: Performed By: #### 2 191308 #### [facility] [address] [place] [address] AST [Catalytic activity/Vol] 18 Int._Unit/L Normal 5-43 [facility] Comment on above: Performed By: #### 2 [id number] #### [facility] [address] [place] [address] Bilirubin [Mass/Vol] 0.9 mg/dL Normal 0.0-1.1 [facility] Comment on above: Performed By: #### 2 [id number] #### [facility] [address] [place] [address] Calcium [Mass/Vol] 8.9 mg/dL Normal 8.9-11.1 [facility] Comment on above: Performed By: #### 2 560345 #### [facility] [address] [place] [address] Chloride [Moles/Vol] 107 mmol/L Normal 101-111 [facility] Comment on above: Performed By: #### 2 625889 #### [facility] [address] [place] [address] CO2 [Moles/Vol] 27 mmol/L Normal 21-31 [facility] Comment on above: Performed By: #### 2 [id number] #### [facility] [address] [place] [address] Creatinine [Mass/Vol] 1.1 mg/dL Normal 0.5-1.3 [facility] Comment on above: Performed By: #### 2 [id number] #### [facility] [address] [place] [address] Globulin (S) [Mass/Vol] 2.8 g/dL Normal 1.4-4.0 [facility] Comment on above: Performed By: #### 2 [id number] #### [facility] [address] [place] [address] Glucose [Mass/Vol] 105 mg/dL Normal 55-199 [facility] Comment on above: Performed By: #### 2 128042 #### [facility] [address] [place] [address] Potassium [Moles/Vol] 4.1 mmol/L Normal 3.5-5.3 [facility] Comment on above: Performed By: #### 2 [id number] #### [facility] [address] [place] [address] Protein [Mass/Vol] 7.2 g/dL Normal 6.0-7.8 [facility] Comment on above: Performed By: #### 2 632871 #### [facility] [address] [place] [address] Sodium [Moles/Vol] 141 mmol/L Normal 135-145 [facility] Comment on above: Performed By: #### 2 [id number] #### [facility] [address] [place] [address] Urea nitrogen [Mass/Vol] 15 mg/dL Normal 5-21 [facility] Comment on above: Performed By: #### 2 [id number] #### [facility] [address] [place] [address] Urea nitrogen/Creatinine [Mass ratio] 14 No Units Normal 10-20 [facility] Comment on above: Performed By: #### 2 377001 #### [facility] [address] [place] [address] HEMATOLOGYOrdered By: SYSTEM SYSTEM on 08-09-2024 Basophils/100 [...] 08-09-2024 Cholesterol [Mass/Vol] 208 mg/dL High 120-200 [facility] Comment on above: Performed By: #### 2 [id number] #### [facility] [address] [place] [address] Cholesterol in HDL [Mass/Vol] 64 mg/dL Invalid Interpretation Code [facility] Comment on above: Result Comment: '>= 60 LOW RISK' '<= 40 HIGH RISK' Performed By: #### 2 [id number] #### [facility] [address] [place] [address] Cholesterol in LDL [Mass/Vol] 104 mg/dL Normal <=129 [facility] Comment on above: Performed By: #### 2 725357 #### [facility] [address] [place] [address] Cholesterol in VLDL [Mass/Vol] 36 mg/dL Normal 7-40 [facility] Comment on above: Performed By: #### 2 648904 #### [facility] [address] [place] [address] Triglyceride [Mass/Vol] 182 mg/dL High <=149 [facility] Comment on above: Performed By: #### 2 435149 #### [facility] [address] [place] [address] TSH With T4fr Reflexon 08-09 TSH Qn 2.85 m[IU]/L Normal 0.34-5.60 [facility] Comment on above: Performed By: #### 1 [id number] #### [facility] [address] [place] [address] U MA/Cr Ratioon 08-09-2024 Albumin DL <= 20 mg/L (U) [Mass/Vol] mg/dL Normal 0.0-1.9 [facility] Comment on above: Performed By: #### 1 [id number] #### [facility] [address] [place] [address] Albumin/Creatinine DL <= 20 mg/L (U) [Mass ratio] NOT CALCULATED Invalid Interpretation Code .0-30.0 [facility] Comment on above: Result Comment: 30-3 00 mg/g Cr indicates an increased risk for diabetic nephropathy. >300 mg/g Cr is consistent with clinical nephropathy. Performed By: #### 1 [id number] #### [facility] [address] [place] [address] U Creatinine 127.3 mg/dL Invalid Interpretation Code [facility] Comment on above: Performed By: #### 1 [id number] #### [facility] [address] [place] [address] Vit B12on 08-09-2024 Cobalamin (Vitamin B12) [Mass/Vol] 253 pg/mL Normal 50-1500 [facility] Comment on above: Performed By: #### 2 [id number] #### [facility] [address] [place] [address] Vitamin D 25 Hydroxyon 08-09 25-hydroxyvitamin D3 [Mass/Vol] 36.9 ng/mL Normal 30.0-100.0 [facility] Comment on above: Performed By: #### 5 [id number] #### [facility] [address] [place] [address] eGFRon 08-09-2024 eGFR 53 mL/min/1.73 m2 Low >=59 [facility] Comment on above: Performed By: #### 1 [id number] #### [facility] [address] [place] [address] Ambulatory Visit Summaryon 1 10-08-2023 Ambulatory Visit Summary Ambulatory Visit Summary CATRACHOISAURA Alonzo :1950 Visit Date:07/30/2024 Ambulatory Visit Instructions Your [...] Appointments 2023 8:40 AM EST With: Where: [address] [id number]- Tuesday 8:45 AM EDT With: Anamaria Chinchilla MD Where: [address] [id number]- 2024 11:00 AM EST With: Where: [address] [address]- You Need to Complete the Following CBC [...] Hypercholesterolemia Hyperlipidemia (more content not included)... Normal [facility] Family Medicine Office/Clini c Noteon 08-07-2024 Family [...] Precautions for MERS/COVID-19 : N/A Martha Pereira Dm - 07/30/2024 9:48 EST Medicare/Medicaid Summary Chief [...] Rating Pain Score : 3 Martha Pereira Dm - 07/30/2024 9:48 EST Hearing and Vision Screening FT FT Whisper Test Comments : wears hearing aides Vision Screen Comments : wears corrective lens. Dr. Corazon Pereira Martha Chaidez - 07/30/2024 9:48 EST Advance Directive FT Advance Directive : Yes Type of Advance Directive : Living will, Medical durable power of criminal attorney Location of Advance Directive : Family to bring in copy from home Organ Donation Consent : Yes Randall Martha Chaidez - 07/30/2024 9:48 EST Procedures / Surgeries FT - Procedure History (As Of: 07/30/2024 10:07:32 EST) Anesthesia Minutes: 0 ; Procedure Name: Colonoscopy ; Procedure Minutes: 0 ; Comments: 11/29/2022 12:57 EDT - Britany Daniel LPN 2012 normal ; Last Reviewed Dt/Tm: 07/30/2024 09:53:53 [...] use. 05/30/2023 14:07 - Neftaly Wolfe R: denfortunato (Last Updated: 07/30/2024 09:55:03 EST by Martha [...] act? : Not at all Martha Pereira 07/30/2024 9:48 EST Misc Health Risks Grid Sexual problems : Never Trouble eating well : Never Teeth or denture problems : Never Problems using the telephone : Never Martha Pereira 07/30/2024 9:48 EST Confident you control health problems : Very confident Difficulties driving your car? : No Seatbelts : I always fasten my seat belt Martha Pereira 07/30/2024 9:48 EST Depression Screening Little Interest, Pleasure in Activities (ref) : Not at all Feeling Down, Depressed, Hopeless : Not at all Initial Depression Screening Score : 0 SCORE Depression Screening Result : Negative Martha Pereira (more content not included)... Normal [facility] Comment on above: Result Comment: Elec tronically Signed By: Anamaria Chinchilla MD\.br\Date and Time Signed: 08/07/24 10:44 EST\.br\Electronically Co-Signed By: Martha Pereira\.br\Date and Time Co-Signed: 07/30/24 12:56 EST Ambulatory Visit Summaryon 1 09-30-2023 Ambulatory Visit Summary Ambulatory Visit Summary CATRACHOISAURA Alonzo :1950 Visit Date:07/30/2024 Ambulatory Visit Instructions Your [...] Appointments 2023 8:40 AM EST With: Where: [address] [id number]- Tuesday 8:45 AM EDT With: Amor SHORT, Anamaria Harvey Where: [address] [id number]- 2024 11:00 AM EST With: Where: [address] [id number]- You Need to Complete the Following CBC [...] Chronic cough Duration: 7 Days Pickup at [facility] [id number] Unchanged amlodipine (amLODIPine 5 mg Tab) See [...] fatty a (more content not included)... Normal [facility] Ambulatory Visit Summary Ambulatory Visit Summary CATRACHOISAURA Alonzo :1950 Visit Date:07/30/2024 Ambulatory Visit Instructions Your Diagnosis Osteoporosis Hypercholesterolemia Hyperlipidemia Hypertension CKD stage 3b, GFR 30-44 ml/min Foot pain, right Fatigue Anemia Chronic cough Your Care Team Attending Physician - Amor SHORT, Anamaria Harvey Primary Care Physician - Anamaria Chinchilla MD [...] Appointments 2023 8:40 AM EST With: Where: [place] [id number]- Tuesday 8:45 AM EDT With: Anamaria Chinchilla MD Where: [address] [address]- 2024 11:00 AM EST With: Where: [address] [address]- You Need to Complete the [...] Chronic cough Duration: 7 Days Pickup at [facility] [id number] Unchanged amlodipine (amLODIPine 5 mg Tab) See [...] fatty a (more content not included)... Normal [facility] Family Medicine Office/Clini c Noteon 07-30-2024 Family [...] humorously by the physician as looking like Citizen [place] cheese on X-rays. She uses a bone [...] day(s), # 21 cap(s), Refills(s) 0, Pharmacy: [facility] [id number], 162, cm, 07/30/24 10:07:00 EST, Height/Length Dosing, 75.8, kg, 07/30/24 10:07:00 EST, Weight Dosing CBC w/ Auto Diff TSH With T4fr Reflex Vitamin B12 Level Vitamin D 25 Hydroxy 2. Hypercholesterolemia (E78.00: Pure hypercholesterolemia, unspecified) As below. Ordered: benzonatate, 200 mg = 1 cap(s), Oral, TID, X 7 day(s), # 21 cap(s), Refills(s) 0, Pharmacy: [facility] [id number], 162, cm, 07/30/24 10:07:00 EST, Height/Length Dosing, 75.8, kg, 07/30/24 10:07:00 EST, Weight Dosing CBC w/ Auto Diff TSH With T4fr Reflex Vitamin B12 Level Vitamin D 25 Hydroxy 3. Hyperlipidemia (E78.5: Hyperlipidemia, unspecified) Continue on a statin as before. Ordered: benzonatate, 200 mg = 1 cap(s), Oral, TID, X 7 day(s), # 21 cap(s), Refills(s) 0, Pharmacy: [facility] [id number], 162, cm, 07/30/24 10:07:00 EST, Height/Length Dosing, [...] day(s), # 21 cap(s), Refills(s) 0, Pharmacy: [facility] [id number], 162, cm, 07/30/24 10:07:00 EST, Height/Length Dosing, 75.8, kg, 07/30/24 10:07:00 EST, Weight Dosing CBC w/ Auto Diff Comprehensive Metab (more content not included)... Normal [facility] Comment on above: Result Comment: Elec tronically Signed By: Anamaria Chinchilla MD\.br\Date and Time Signed: 07/30/24 12:21 EST Pre-Visit Planningon 024 Pre-Visit Planning Pre-Visit Planning From: Benita MENJIVAR, Daly To: Anamaria Chinchilla MD; Sent: 07/27/2024 10:17:56 EST Subject: Pre-Visit Planning Due Date/Time: 07/27/2024 10:17:00 EST Caller Name: ISAURA HAYDEN; Caller Number: Adrian , Mitesh Dc Dr. Chinchilla, During a pre-visit planning chart review, I noted the following documentation in the medical record indicates this patient has been diagnosed as having: ??? The following is also documented in the medical record: Problem list- TIA (transient ischemic attack) I was not able to locate any documentation regarding this. O shows it was last addressed 11/29/2022. Based [...] feel free to contact me at extension [phone]. Thank you! Daly Joy, ALEXN, RN, CCM, CCDS, CCDS-O CDI Election Supervisor [address] [address] P: [phone] F: [phone] [email or web address] From: Amor SHORT, Anamaria Harvey To: Benita MENJIVAR, Daly; Sent: 07/30/2024 15:17:44 EST Subject: RE: Pre-Visit Planning Caller Name: ISAURA HAYDEN; Caller Number: Adrian , M I could not address this today. Thanks Normal [facility] Family Medicine Office/Clini c Noteon 07-13-2024 Family Medicine Office/Clinic Note Family Medicine [...] in 3-5 days Ordered: Rapid Strep POC 33751 Follow-up No qualifying data available Patient Education Pharyngitis, Ghym-py-Vyph Problem List/Past Medical History Ongoing Age-related osteoporosis [...] Strep POC Result: Negative (07/13/24 11:52:00) Normal [facility] Comment on above: Result Comment: Elec tronically Signed By: VIPUL OBANDO CNP\.br\Date and Time Signed: 07/13/24 11:55 EST C [...] Locations R1: This test was performed at: [facility], [address] [place] [address], [address]- , [place], Normal [facility] Comment on above: Performed By: #### 2 [id number] #### [facility] [address] [place] [address] Ambulatory Visit Summaryon 0 05-07-2024 Ambulatory Visit Summary Ambulatory Visit Summary ISAURA HAYDEN :1950 Visit Date:05/07/2024 Ambulatory Visit Instructions Your [...] AM EST With: Anamaria Chinchilla MD Where: [address] [address]- Tuesday 11:00 AM EST With: Where: [address] [address]- Medications What How Much When [...] for choosing us for your care. Normal [facility] Family Medicine Office/Clini c Notejustin 05-07-2024 Family [...] day(s), # 14 cap(s), Refills(s) 0, Pharmacy: [facility] [id number], 162, cm, 05/07/24 14:07:00 EDT, Height/Length Dosing, 76, kg, 05/07/24 14:07:00 EDT, Weight Dosing Body Mass Index (BMI) documented 3008F Current tobacco non-user 1036F Depression Screening Negative 3352F E&M of Est. Patient Low 20-29 Min 34965 Influenza immunization status assessed 1030F Medication list [...] Urnls Dip Stick Auto w/o Microscopy POC 94651 2. Non-smoker (Z78.9: Other specified health status) - Please continue to not smoke Ordered: doxycycline, 100 mg = 1 cap(s), Oral, BID, X 7 day(s), # 14 cap(s), Refills(s) 0, Pharmacy: [facility] [id number], 162, cm, 05/07/24 14:07:00 EDT, Height/Length Dosing, 76, kg, 05/07/24 14:07:00 EDT, Weight Dosing Body Mass Index (BMI) documented 3008F Current tobacco non-user 1036F Depression Screening Negative 3352F E&M of Est. Patient Low 20-29 Min 40634 Influenza immunization status assessed 1030F Medication list [...] day(s), # 14 cap(s), Refills(s) 0, Pharmacy: [facility] [id number], 162, cm, 05/07/24 14:07:00 EDT, Height/Length Dosing, 76, kg, 05/07/24 14:07:00 EDT, Weight Dosing Body Mass Index (BMI) documented 3008F Current tobacco non-user 1036F Depression Screening Negative 3352F E&M of Est. Patient Low 20-29 Min 98925 Influenza immunization status assessed 1030F Medication list [...] day(s), # 14 cap(s), Refills(s) 0, Pharmacy: [facility] [id number], 162, cm, 05/07/24 14:07:00 EDT, Height/Length Dosing, 76, kg, 05/07/24 14:07:00 EDT, Weight Dosing Body Mass Index (BMI) documented 3008F Current tobacco non-user 1036F Depression Screening Negative 3352F E&M of Est. Patient Low 20-29 Min 46207 Influenza immunization status assessed 1030F Medication list [...] with stage 3a (more content not included)... Normal [facility] Comment on above: Result Comment: Elec tronically Signed By: Amor SHORT, Anamaria Jacobsonbr\Date and Time Signed: 05/07/24 14:35 EDT Dexa Scanson 02-08-2024 Dexa Scans [id number]#1.0 0TIFF Normal [facility] Consultation Noteon 02-07-20 Consultation Note [id number] 60 [id number]#1.0 0TIFF Normal [facility] RAD - MISCon 02-02-2024 RAD - MISC [id number] 60 [id number]#1.0 0TIFF Normal [facility] RAD - MISC [id number] 60 [id number]#1.0 0TIFF Normal [facility] Consultation Noteon 01-30-20 Consultation Note [id number] 60 [id number]#1.0 0TIFF Normal [facility] Consultation Noteon 12-26-19 Consultation Note [id number] 50 [id number]#1.0 0TIFF Normal [facility] RAD - MISCon 12-21-2023 RAD - MISC [id number] 50 [id number]#1.0 0TIFF Normal [facility] RAD - MISC [id number] 50 [id number]#1.0 0TIFF Normal [facility] Consultation Noteon 12-09-19 Consultation Note [id number]#1.0 0TIFF Normal [facility] Consultation Noteon 11-24-19 Consultation Note [id number] 40 [id number]#1.0 0TIFF Normal [facility] Discharge Documentationon Discharge Documentation [id number]#1.0 0TIFF Normal [facility] Cytologyon 11-14-2023 Cytology Normal [facility] Comment on above: Result Comment: [facility] [address] [place] [address] Cytology Consultation Patient Name:ISAURA HAYDEN:1950 (Age: 73)Gender:FTaken:11/14/2023eported:11/16/2023 14:25Physician(s):Nabil Lord M.D. ([phone])Copy To: Rec. #:[id number]: #[id number] Final Cytologic Diagnosis Pelvic washings: No malignant cells identified. k/11/16/2023 Interpretation performed at [facility], [address] [place] [address], License number: [id number].Electronically Signed Out By Edie Day MD Clinical History Thickened endometrium/ post menopausal bleeding/ cervical stenosis. Gross Description Received was 35mL of clear colorless fluid unfixed labeled as Catracho, pelvic washings . CytoLyt added in lab. Unable to obtain cellblock, ThinPrep made. Source of Specimen Pelvic washings Non [employer]PER[employer] ThinPrep Fee Code(s): 1; 12958, 84457 Surgical Pathologyon 024 Surgical Pathology Normal [facility] Comment on above: Result Comment: [facility] [address] [place] [address] Surgical Pathology Consultation Patient Name:ISAURA HAYDEN:1950 (Age: 73)Gender:FTaken:11/14/2023eported:11/16/2023hysician(s):Nabil Lord M.D. ([phone])Copy To: Rec. #:[id number]: #[id number] Final Pathologic Diagnosis Uterus, cervix, bilateral fallopian tubes, bilateral ovaries, TAHBSO: Cervix with no significant histopathologic abnormality Endometrium with cystic atrophy Myometrium with adenomyosis Bilateral adnexa with no significant histopathologic abnormality Report Electronically Signed Out yuliya11/16/2023Edie Day MD [place] [address], License number: [id number]. Clinical History Thickened endometrium, postmenopausal bleeding, cervical [...] ovary L-N Remainder of endometrium (14, ss, F98-20404, A- K, m6) MONICO/MD maldonado/11/14/2023GR Specimen(s) Received Uterus, cervix, bilateral fallopian tubes, bilateral ovaries Fee Codes(s): 1; 47032 Consultation Noteon 11-10-19 Consultation Note [id number]#1.0 0TIFF Normal [facility] CBC AND AUTO DIFFon 11-09-19 ABSOLUTE BASOPHIL 0.1 X10E9/L Normal 0.0-0.2 [facility] Comment on above: Performed By: #### C BCA, CMP #### [facility] ([id number]) [address] [place] [address] ABSOLUTE NEUTROPHIL 3.1 X10E9/L Normal 1.5-6.6 [facility] Comment on above: Performed By: #### C BCA, CMP #### [facility] ([id number]) [address], [address] [place] [address] Basophils/100 WBC (Bld) 0.9 % Normal [facility] Comment on above: Performed By: #### C BCA, CMP #### [facility] ([id number]) [address], [address] [place] [address] Eosinophils (Bld) [#/Vol] 0.2 10*3/uL Normal 0.0-0.4 [facility] Comment on above: Performed By: #### C BCA, CMP #### [facility] ([id number]) [address] [place] [address] Eosinophils/100 WBC (Bld) 4.3 % Normal [facility] Comment on above: Performed By: #### C REBEKA, CMP #### [facility] ([id number]) [address] [facility] [address] [place] [address] Erythrocyte distribution width (RBC) [Ratio] 13.1 % Normal 11.5-15.0 [facility] Comment on above: Performed By: #### C REBEKA, CMP #### [facility] ([id number]) [address] [place] [address] Hematocrit (Bld) [Volume fraction] 35.6 % Normal 35-47 [facility] Comment on above: Performed By: #### C REBEKA, CMP #### [facility] ([id number]) [address] [place] [address] Hemoglobin (Bld) [Mass/Vol] 12.4 g/dL Normal 11.7-15.5 [facility] Comment on above: Performed By: #### C REBEKA, CMP #### [facility] ([id number]) [address] [address] [place] [address] Lymphocytes (Bld) [#/Vol] 1.7 10*3/uL Normal 1.0-3.5 [facility] Comment on above: Performed By: #### C BCA, CMP #### [facility] ([id number]) [address] [address] [place] [address] Lymphocytes/100 WBC (Bld) 31.2 % Normal [facility] Comment on above: Performed By: #### C REBEKA, CMP #### [facility] ([id number]) [address], [address] [place] [address] MCH (RBC) [Entitic mass] 33.3 pg Normal 27-34 [facility] Comment on above: Performed By: #### C BCA, CMP #### [facility] ([id number]) [address], [address] [place] [address] MCHC (RBC) [Mass/Vol] 34.7 g/dL Normal 32-36 [facility] Comment on above: Performed By: #### C REBEKA, CMP #### [facility] ([id number]) [address], [address] [place] [address] MCV (RBC) [Entitic vol] 96 fL Normal 80-100 [facility] Comment on above: Performed By: #### Tobi STALEY, CMP #### [facility] ([id number]) [address], [address] [place] [address] Monocytes (Bld) [#/Vol] 0.5 10*3/uL Normal 0-0.9 [facility] Comment on above: Performed By: #### C REBEKA, CMP #### [facility] ([id number]) [address], [address] [place] [address] Monocytes/100 WBC (Bld) 8.2 % Normal [facility] Comment on above: Performed By: #### C REBEKA, CMP #### [facility] ([id number]) [address], [address] [place] [address] Neutrophils/100 WBC (Bld) 55.4 % Normal [facility] Comment on above: Performed By: #### Tobi BCA, CMP #### [facility] ([id number]) [address], [address] [place] [address] Platelet mean volume (Bld) [Entitic vol] 8.2 fL Normal 7-12 [facility] Comment on above: Performed By: #### C BCA, CMP #### [facility] ([id number]) [address], [address] [place] [address] Platelets (Bld) [#/Vol] 284 10*3/uL Normal 150-450 [facility] Comment on above: Performed By: #### C BCA, CMP #### [facility] ([id number]) [address] [place] [address] RBC COUNT 3.72 X10E12/L Low 3.80-5.20 [facility] Comment on above: Performed By: #### C BCA, CMP #### [facility] ([id number]) [address] [place] [address] WBC (Bld) [#/Vol] 5.6 10*3/uL Normal 4.0-11.0 [facility] Comment on above: Performed By: #### C BCA, CMP #### [facility] ([id number]) [address] [place] [address] COMPREHENSIVE METABOLIC PANE Rashi 11-09-2023 Albumin [Mass/Vol] 4.5 g/dL Normal 3.2-5.3 [facility] Comment on above: Performed By: #### C BCA, CMP #### [facility] ([id number]) [address], [address] [place] [address] ALP [Catalytic activity/Vol] 48 U/L Normal 39-130 [facility] Comment on above: Performed By: #### C BCA, CMP #### [facility] ([id number]) [address], [address] [place] [address] ALT [Catalytic activity/Vol] 14 U/L Normal 0-31 [facility] Comment on above: Performed By: #### C BCA, CMP #### [facility] ([id number]) [address] [place] [address] Anion gap [Moles/Vol] 9 mmol/L Normal 5-15 [facility] Comment on above: Performed By: #### C BCA, CMP #### [facility] ([id number]) [address] [place] [address] AST [Catalytic activity/Vol] 20 U/L Normal 0-41 [facility] Comment on above: Performed By: #### C BCA, CMP #### [facility] ([id number]) [address] [place] [address] Bilirubin [Mass/Vol] 0.5 mg/dL Normal 0.3-1.2 [facility] Comment on above: Performed By: #### C BCA, CMP #### [facility] ([id number]) [address] [place] [address] Calcium [Mass/Vol] 9.2 mg/dL Normal 8.5-10.5 [facility] Comment on above: Performed By: #### C BCA, CMP #### [facility] ([id number]) [address] [place] [address] Chloride [Moles/Vol] 106 mmol/L Normal 98-109 [facility] Comment on above: Performed By: #### C BCA, CMP #### [facility] ([id number]) [address] [place] [address] CO2 [Moles/Vol] 28 mmol/L Normal 22-32 [facility] Comment on above: Performed By: #### C BCA, CMP #### [facility] ([id number]) [address] [place] [address] Creatinine [Mass/Vol] 1.17 mg/dL High 0.40-1.00 [facility] Comment on above: Result Comment: METH OD TRACEABLE TO IDMS STANDARD Performed By: #### C BCA, CMP #### [facility] ([id number]) [address], [address] [place] [address] GFR/1.73 sq M.predicted among non-blacks MDRD (S/P/Bld) [Vol rate/Area] 50 mL/min/{1.73_m2} Low >59 [facility] Comment on above: Result Comment: Reported eGFR is based on the CKD-EPI 2020 equation that does not use a race coefficient. Performed By: #### C BCA, CMP #### [facility] ([id number]) [address] [place] [address] Glucose [Mass/Vol] 110 mg/dL High 65-99 [facility] Comment on above: Performed By: #### C BCA, CMP #### [facility] ([id number]) [address] [place] [address] Potassium [Moles/Vol] 4.1 mmol/L Normal 3.5-5.0 [facility] Comment on above: Performed By: #### C BCA, CMP #### [facility] ([id number]) [address] [place] [address] Protein [Mass/Vol] 7.2 g/dL Normal 6.0-8.0 [facility] Comment on above: Performed By: #### C BCA, CMP #### [facility] ([id number]) [address] [place] [address] Sodium [Moles/Vol] 143 mmol/L Normal 134-146 [facility] Comment on above: Performed By: #### C BCA, CMP #### [facility] ([id number]) [address] [place] [address] Urea nitrogen [Mass/Vol] 18 mg/dL Normal 5-27 [facility] Comment on above: Performed By: #### C BCA, CMP #### [facility] ([id number]) [address] [place] [address] XR CHEST 2 VWSon 11-09-2023 XR CHEST 2 VWS XR CHEST 2 VWS History: Preop testing Exam/Technique: PA and lateral chest Comparison: None Findings: There is no evidence of active pulmonary or pleural disease. Cardiac and mediastinal contours are within normal limits. IMPRESSION: No evidence of active pulmonary disease demonstrated. Finalized by Lewis Lyn MD on 11/09/2023 10:52 AM Normal [facility] Consultation Noteon 10-25-19 Consultation Note [id number]#1.0 0TIFF Normal [facility] Consultation Noteon 10-03-19 Consultation Note [id number]#1.0 0TIFF Normal [facility] RAD - MISCon 10-03-2023 RAD - MISC [id number]#1.0 0TIFF Normal [facility] Consultation Noteon 09-29-19 Consultation Note [id number]#1.0 0TIFF Normal [facility] Consultation Noteon 09-21-19 Consultation Note [id number]#1.0 0TIFF Normal [facility] Dexa Scanson 09-21-2023 Dexa Scans [id number]#1.0 0TIFF Normal [facility] Consultation Noteon 09-12-19 Consultation Note [id number]#1.00 TIFF Normal [facility] Patient Logson 09-02-2023 Patient Logs [id number]#1.00 TIFF Normal [facility] Ambulatory Visit Summaryon 0 09-01-2023 Ambulatory [...] AM EST With: Anamaria Chinchilla MD Where: [address] \.br\ Medications\.br\ What How Much When Instructions\.br\ [...] for choosing us for your care.\.br\ \.br\ [facility] Consultation Noteon 09-01-19 Consultation Note [id number]#1.0 0TIFF Normal [facility] Family Medicine Office/Clini c Noteon 09-01-2023 [...] 96.3 fL (05/11/23) Chloride: 108 mmol/L (05/11/23) [place] Absolute: 0.4 E9/L (05/11/23) CO2: 27 mmol/L (05/11/23) [place] Auto: 7.8 % (05/11/23) Creatinine: 1.3 mg/dL [...] Ongoing Ag (more content not included)... Normal [facility] Comment on above: Result Comment: Elec tronically Signed By: VIPUL OBANDO CNP\.br\Date and Time Signed: 09/01/23 13:24 EST Patient [...] Herbs. Spices. Seasoni (more content not included)... [facility] Consultation Noteon 08-24-19 24 Consultation Note [id number]#1.[address] [facility] RAD - CT Reporton 08-24-2023 RAD - CT Report [id number]#1.[address] [facility] Operative Reporton Operative Report [id number]#1.[address] [facility] Patient Correspondenceon Patient Correspondence [id number]#1.[address] [facility] Provider Letteron 08-12-2023 Provider Letter [address] [place] [address] August 12, 2023 ISAURA CATRACHO [address] [address] : [address] Das, The above patient has been evaluated at your request for preoperative clearance. After assessment of available pertinent labs and diagnostic tests, I feel this patient is medically optimized for surgery. Final discretion of whether the patient is cleared for surgery remains up to the surgeon/anesthesiologi st. Thank you, YISEL Vásquez [facility] Ambulatory Visit Summaryon 1 10-12-2022 Ambulatory Visit Summary CATRACHOSHASHIJUSTIN Rosado :1950 Visit Date:08/11/2023 Ambulatory Visit Instructions Your Care Team Attending Physician - Anamaria Chinchilla MD. Primary Care Physician - Anamaria Chinchilla MD [...] EST With: Amor SHORT, Anamaria Harvey Where: [place] [id number] \.br\ Medications\.br\ What How Much When Instructions\.br\ [...] choosing us for your care.\.br\ \.br\ Nnamdi [facility] Family Medicine Office/Clini c Noteon [...] Recorded pneumococcal 23-valent vaccine 06/25/2008 Recorded Normal [facility] Comment on above: Result Comment: Elec [...] 74 U/L Normal 25 - 157 unit/L FT Remisol Anion gap [Moles/Vol] 10 mmol/L Normal [...] rate/Area] 44 mL/min/1.73 m2 Low >=59mL/min/1.73 m2 [facility] Chem S Globulin (S) [Mass/Vol] 3.2 g/dL Normal 1.4 - 4.0 gm/dL FT Remisol Glucose [Mass/Vol] 93 mg/dL Normal 55 - 199 mg/dL FT [facility]isol Lipase [Catalytic activity/Vol] 46 U/L Normal 13 - 58 unit/L FT [facility] Potassium [Moles/Vol] 4.3 mmol/L Normal 3.5 - 5.3 mmol/L FT Remisol Protein [Mass/Vol] 7.5 g/dL Normal 6.0 - 7.8 gm/dL F [facility] Remisol Sodium [Moles/Vol] 141 mmol/L Normal 135 - 145 mmol/L FT Remisol Urea nitrogen [Mass/Vol] 21 mg/dL Normal 5 - 21 mg/dL [facility] Remisol Urea nitrogen/Creatinine [Mass ratio] 16 mg/mg [...] PM) Normal Negative [facility] UA Auto SS [place].plasma/Lith ium.RBC (Bld) [Mass ratio] 0-3 /HPF Normal 0-3/HPF [facility] UA Auto SS Mucus Ql (Urine sed) 2+ (05/11/23 12:05 PM) Normal [facility] UA Auto SS Nitrite Ql (U) Negative (05/11/23 12:05 PM) Normal Negative [facility] UA Auto SS pH (U) 7.0 *NA* (05/11/23 12:05 PM) Invalid Interpretation Code 5.0 - 9.0 [facility] UA Auto SS Protein (U) [Mass/Vol] Negative (05/11/23 12:05 PM) Normal Negative [facility] UA Auto SS Specific gravity (U) [Rel density] 1.010 *NA* (05/11/23 12:05 PM) Invalid Interpretation Code 1.005 - 1.030 [facility] UA Auto SS UA Spec Desc Clean Catch (05/11/23 12:05 PM) Normal [facility] UA Auto SS Urobilinogen Qn (U) [id number] {Leon'U}/dL Normal 0.0 - 1.0 EU/dL [facility] UA Auto SS WBC Auto Ql (U) 1+ *ABN* (05/11/23 12:05 PM) Invalid Interpretation Code Negative [facility] UA Auto SS WBC LM.HPF (Urine sed) [#/Area] 0-5 /HPF Normal 0-5/HPF [facility] UA Auto SS CULTURE URINEon 07-06-2022 CULTURE URINE Culture Observations : LIGHT GROWTH OF MIXED GENITAL NAN. NO POTENTIAL PATHOGENS SEEN. Normal [facility] Comment on above: Performed By: #### U RCX #### [facility] [address] [place] [address] Dr. Melchor Brock UA (CLEAN/CATCH) MICROSCOPIC IF INDICATEon 07-06-2022 Bilirubin Ql (U) Negative Normal NEGATIVE [facility] Comment on above: Performed By: #### U MICRO, UARMICR #### [facility] [address] [place] [address] Dr. Melchor Brock Clarity (U) CLEAR Normal CLEAR [facility] Comment on above: Performed By: #### U MICRO, UARMICR #### [facility] [address] [place] [address] Dr. Melchor Brock Color (U) LT. YELLOW Normal YELLOW [facility] Comment on above: Performed By: #### U MICRO, UARMICR #### [facility] [address] [place] [address] Dr. Melchor Brock Glucose Ql (U) Negative Normal NEGATIVE [facility] Comment on above: Performed By: #### U MICRO, UARMICR #### [facility] [address] [address] [address] Melchor Brock Hemoglobin Ql (U) TRACE-INTACT Abnormal NEGATIVE [facility] Comment on above: Performed By: #### U MICRO, UARMICR #### [facility] [address] [place] [address] Dr. Melchor Brock Ketones Ql (U) Negative Normal NEGATIVE [facility] Comment on above: Performed By: #### U MICRO, UARMICR #### [facility] [address] [place] [address] Dr. Melchor Brock LEUKOCYTES TRACE Abnormal NEGATIVE [facility] Comment on above: Performed By: #### U MICRO, UARMICR #### [facility] [address] [place] [address] Dr. Melchor Brock Nitrite Ql (U) Negative Normal NEGATIVE [facility] Comment on above: Performed By: #### U MICRO, UARMICR #### [facility] [address] [place] [address] Dr. Melchor Brock pH (U) 6.0 [pH] Normal 5-9 [facility] Comment on above: Performed By: #### U MICRO, UARMICR #### [facility] [address] [place] [address] Dr. Melchor Brock SPEC GRAVITY 1.020 Normal 1.005-<=1.025 [facility] Comment on above: Performed By: #### U MICRO, UARMICR #### [facility] [address] [place] [address] Dr. Melchor Brock UA PROTEIN Negative Normal NEGATIVE/ TRACE [facility] Comment on above: Performed By: #### U MICRO, UARMICR #### [facility] [address] [place] [address] Dr. Melchor Brock UR MICRO IND INDICATED Normal [facility] Comment on above: Performed By: #### U MICRO, UARMICR #### [facility] [address] [place] [address] Dr. Melchor Brock Urobilinogen Qn (U) 0.2 {Leon'U}/dL Normal 0.2 - 1. 0 [facility] Comment on above: Performed By: #### U MICRO, UARMICR #### [facility] [address] [address] [address] Melchor Brock URINE MICROSCOPIC ONLYon BACTERIA NONE SEEN Normal NONE SEEN [facility] Comment on above: Performed By: #### G SHON, LIPID #### [facility] [address] [address] [address] Melchor Brock Bacteria identified Cx Nom (U) CX ALREADY ORDERED Normal [facility] Comment on above: Performed By: #### G SHON, LIPID #### [facility] [address] [place] [address] Dr. Melchor Brock CAST NONE SEEN Normal NONE SEEN [facility] Comment on above: Performed By: #### G SHON, LIPID #### [facility] [address] [place] [address] Dr. Melchor Brock Crystals LM Nom (Urine sed) NONE SEEN Normal NONE SEEN [facility] Comment on above: Performed By: #### G SHON, LIPID #### [facility] [address] [place] [address] Dr. Melchor Brock Epithelial cells LM Ql (Urine sed) RARE Normal NONE SEEN /RARE [facility] Comment on above: Performed By: #### G SHON, LIPID #### [facility] [address] [place] [address] Dr. Melchor Brock MUCOUS NONE SEEN Normal NONE SEEN [facility] Comment on above: Performed By: #### G SHON, LIPID #### [facility] [address] [place] [address] Dr. Melchor Brock RBC 0-2 Normal 0-2 [facility] Comment on above: Performed By: #### G SHON, LIPID #### [facility] [address] [place] [address] Dr. Melchor Brock WBC 0-2 Abnormal NONE SEEN [facility] Comment on above: Performed By: #### G SHON, LIPID #### [facility] [address] [address] [address] Melchor Brock MG MAMM SCREEN 3D SARAHI CADon 03-15-2022 MG MAMM SCREEN 3D SARAHI CAD Patient: ISAURA HAYDEN Exam Date: 03/15/2022 : 1950 Gender:F Ordering : DR FARA BOOKER . Admission #: [id number] Family : Order #: [id number] CLICK HERE TO VIEW EXAM RADIOLOGY REPORT [...] lung cancer at age 72. LOCATION: [facility] BREAST COMPOSITION: Heterogeneously dense,which may [...] Cárdenas M.D. on 03/15/2022 at 11:41 Normal [facility] GLUCOSE BLOODon 02-09-2022 Glucose [Mass/Vol] 99 mg/dL Normal 74-106 [facility] Comment on above: Performed By: #### G SHON, LIPID #### [facility] [address] [address] [address] Melchor Brock LIPID PROFILEon 02-09-2022 CHOL-HDL RATIO NORM SEE BELOW Normal [facility] Comment on above: Result Comment: 3.3 - 4.4 LOW RISK 4.4 - 7.1 AVERAGE RISK 7.1 - 11.0 MODERATE RISK >11.0 HIGH RISK Performed By: #### G SHON, LIPID #### [facility] [address] [address] [address] Melchor Brock Cholesterol [Mass/Vol] 202 mg/dL Critically high <=200 [facility] Comment on above: Performed By: #### G SHON, LIPID #### [facility] [address] [address] [address] Melchor Brock Cholesterol in HDL [Mass/Vol] 56 mg/dL Normal 40-60 [facility] Comment on above: Performed By: #### G SHON, LIPID #### [facility] [address] [address] [address] Melchor Brock Cholesterol in LDL [Mass/Vol] 112.6 mg/dL Normal [facility] Comment on above: Performed By: #### G SHON, LIPID #### [facility] [address] [address] [address] Melchor Brock Cholesterol.total/C holesterol in HDL [Mass ratio] 3.6 {ratio} Normal [facility] Comment on above: Performed By: #### G SHON, LIPID #### [facility] [address] [address] [address] Melchor Brock HDL NORMAL > or = 60 mg/dl - LO W CARDIOVASCULAR RISK <40 mg/dl - HIGH CARDIOVASCULAR RISK Normal [facility] Comment on above: Performed By: #### G SHON, LIPID #### [facility] [address] [address] [address] Melchor Brock LDL CALC NORMAL SEE BELOW Normal [facility] Comment on above: Result Comment: <100 mg/dl OPTIMAL 100 - 129 mg/dl NEAR OR ABOVE OPTIMAL 130 - 159 mg/dl BORDERLINE HIGH 160 - 189 mg/dl HIGH >190 mg/dl VERY HIGH Performed By: #### G SHON, LIPID #### [facility] [address] [address] [address] Melchor Brock Triglyceride [Mass/Vol] 167 mg/dL Critically high <=150 [facility] Comment on above: Performed By: #### G SHON, LIPID #### [facility] [address] [address] [address] Melchor Brock VLDL CALC 33.4 mg/dL Normal [facility] Comment on above: Performed By: #### G SHON, LIPID #### [facility] [address] [address] [address] Melchor Brock LIPID PROFILEon 11-05-2021 CHOL-HDL RATIO NORM SEE BELOW Normal [facility] Comment on above: Result Comment: 3.3 - 4.4 LOW RISK 4.4 - 7.1 AVERAGE RISK 7.1 - 11.0 MODERATE RISK >11.0 HIGH RISK Performed By: #### L IPID, BMP #### [facility] [address] [address] [address] Melchor Brock Cholesterol [Mass/Vol] 244 mg/dL Critically high <=200 [facility] Comment on above: Performed By: #### L IPID, BMP #### [facility] [address] [address] [address] Melchor Brock Cholesterol in HDL [Mass/Vol] 60 mg/dL Normal 40-60 [facility] Comment on above: Performed By: #### L IPID, BMP #### [facility] [address] [address] [address] Melchor Brock Cholesterol in LDL [Mass/Vol] 158.4 mg/dL Normal [facility] Comment on above: Performed By: #### L IPID, BMP #### [facility] [address] [address] [address] Melchor Brock Cholesterol.total/C holesterol in HDL [Mass ratio] 4.1 {ratio} Normal [facility] Comment on above: Performed By: #### L IPID, BMP #### [facility] [address] [address] [address] Melchor Brock HDL NORMAL > or = 60 mg/dl - LO W CARDIOVASCULAR RISK <40 mg/dl - HIGH CARDIOVASCULAR RISK Normal [facility] Comment on above: Performed By: #### L IPID, BMP #### [facility] [address] [address] [address] Melchor Brock LDL CALC NORMAL SEE BELOW Normal [facility] Comment on above: Result Comment: <100 mg/dl OPTIMAL 100 - 129 mg/dl NEAR OR ABOVE OPTIMAL 130 - 159 mg/dl BORDERLINE HIGH 160 - 189 mg/dl HIGH >190 mg/dl VERY HIGH Performed By: #### L IPID, BMP #### [facility] [address] [place] [address] Dr. Melchor Brock Triglyceride [Mass/Vol] 128 mg/dL Normal <=150 [facility] Comment on above: Performed By: #### L IPID, BMP #### [facility] [address] [place] [address] Dr. Melchor Brock VLDL CALC 25.6 mg/dL Normal [facility] Comment on above: Performed By: #### L IPID, BMP #### [facility] [address] [place] [address] Dr. Melchor Brock PROF CHEM 8 (BAS METB)on Anion gap [Moles/Vol] 10.7 mmol/L Normal [facility] Comment on above: Performed By: #### L IPID, BMP #### [facility] [address] [place] [address] Dr. Melchor Brock Calcium [Mass/Vol] 7.8 mg/dL Critically low 8.4-10.2 [facility] Comment on above: Performed By: #### L IPID, BMP #### [facility] [address] [place] [address] Dr. Melchor Brock Chloride [Moles/Vol] 103 mmol/L Normal 98-107 [facility] Comment on above: Performed By: #### L IPID, BMP #### [facility] [address] [place] [address] Dr. Melchor Brock CO2 [Moles/Vol] 28.4 mmol/L Normal 22.0-30.0 [facility] Comment on above: Performed By: #### L IPID, BMP #### [facility] [address] [place] [address] Dr. Melchor Brock Creatinine [Mass/Vol] 1.05 mg/dL Critically high 0.52-1.04 [facility] Comment on above: Performed By: #### L IPID, BMP #### [facility] [address] [place] [address] Dr. Melchor Brock EGFR-AF VIET[place]ESE >60 Normal >=60 [facility] Comment on above: Performed By: #### L IPID, BMP #### [facility] [address] [place] [address] Dr. Melchor Brock EGFR-NON AF VIET[place]ESE 52 mL/min/1.73m2 Critically low >=60 [facility] Comment on above: Performed By: #### L IPID, BMP #### [facility] [address] [place] [address] Dr. Melchor Brock Glucose [Mass/Vol] 98 mg/dL Normal 74-106 [facility] Comment on above: Performed By: #### L IPID, BMP #### [facility] [address] [place] [address] Dr. Melchor Brock Potassium [Moles/Vol] 4.1 mmol/L Normal 3.4-5.0 [facility] Comment on above: Performed By: #### L IPID, BMP #### [facility] [address] [place] [address] Dr. Melchor Brock Sodium [Moles/Vol] 138 mmol/L Normal 137-145 [facility] Comment on above: Performed By: #### L IPID, BMP #### [facility] [address] [place] [address] Dr. Melchor Brock Urea nitrogen [Mass/Vol] 15.0 mg/dL Normal 7.0-17.0 [facility] Comment on above: Performed By: #### L IPID, BMP #### [facility] [address] [place] [address] Dr. Melchor Brock Urea nitrogen/Creatinine [Mass ratio] 14.3 mg/mg Normal [facility] Comment on above: Performed By: #### L IPID, BMP #### [facility] [address] [place] [address] Dr. Melchor Brock ECHOCARDIO M/2D COMPLETEon 0 10-05-2021 ECHOCARDIO M/2D COMPLETE Patient: ISAURA HAYDEN Exam Date: 10/05/2021 : 1950 Gender:F Ordering : DR ANJELICA GAMBINO . Admission #: [id number] Family : Order #: [id number] CLICK HERE TO VIEW EXAM ECHOCARDIOGRAM REPORT [...] Area(A4C): 20.70 cm2 Left Atrium Systolic Volume(A2C): 77142 mm3 Left Atrium Systolic Volume(A4C): 97370 mm3 Mitral Valve MV E to A Ratio: 1.10 Deceleration [place]: 7410 mm/s2 Mitral Valve A-Wave Peak Velocity: [...] Dove M.D. on 10/06/2021 at 08:32 Normal [facility] XR DEXA BONE DENSITYon 09-18 XR [...] by: KVNG TILLMAN Date: 2021-09-18 10:56 Normal [facility] DEXA BONE DENSITY AXIAL SKEL ETONon [...] necksInterpreted by:ARLEY Valenciaigned by:Lora Mondragon MD09/12/18Final result [facility] DIGITAL SCREEN BILATERAL on 09-12-2017 [facility] DIGITAL SCREEN BILATERAL REPORT: BILATERAL DIGITAL [...] Body mass index (BMI) [Ratio] 29.01 kg/m2 [employer] Work Phone: [facility] 08-28-2024 09:11-0500 Body weight 76.66 kg Bentley Pippa DO Work Phone: [facility] 08-28-2024 09:11-0500 Diastolic blood pressure 70 mm[Hg] Bentley Pippa DO Work Phone: [facility] 08-28-2024 09:11-0500 Systolic blood pressure 120 mm[Hg] Bentley Pippa DO Work Phone: [facility] 11-29-2023 10:41-0400 Body height 162.6 cm Mary GOMEZ Work Phone: [facility] 11-29-2023 10:41-0400 Body mass index (BMI) [Ratio] 28.48 kg/m2 Mary Pennington PA Work Phone: [facility] 11-29-2023 10:41-0400 Body temperature 97.81 [degF] Mary Pennington PA Work Phone: [facility] 11-29-2023 10:41-0400 Body weight 75.3 kg Mary Pennington PA Work Phone: [facility] 11-29-2023 10:41-0400 Diastolic blood pressure 71 mm[Hg] Mary Pennington PA Work Phone: [facility] 11-29-2023 10:41-0400 Heart rate 57 /min Mary Pennington PA Work Phone: [facility] 11-29-2023 10:41-0400 Respiratory rate 16 /min Mary Pennington PA Work Phone: [facility] 11-29-2023 10:41-0400 SaO2% (BldA) [Mass fraction] 100 % Mary Pennington PA Work Phone: [facility] 11-29-2023 10:41-0400 Systolic blood pressure 142 mm[Hg] Mary Pennington PA Work Phone: [facility] 11-07-2023 10:32-0400 Body height 162.6 cm [email or web address] 11-07-2023 10:32-0400 Body mass index (BMI) [Ratio] 28.15 kg/m2 [email or web address] 11-07-2023 10:32-0400 Body weight 74.[address] [facility] 10-26-2023 14:38-0500 Body temperature 98.29 [degF] Nabil Lord MD Work Phone: [facility] 10-26-2023 14:38-0500 Diastolic blood pressure 90 mm[Hg] Nabil Lord MD Work Phone: [facility] 10-26-2023 14:38-0500 Heart rate 67 /min Nabil Lord MD Work Phone: [facility] 10-26-2023 14:38-0500 SaO2% (BldA) [Mass fraction] 98 % Nabil Lord MD Work Phone: [email or web address] 10-26-2023 14:38-0500 Systolic blood pressure 158 mm[Hg] Nabil Lord MD Work Phone: [facility] 10-26-2023 14:35-0500 Body mass index (BMI) [Ratio] 29.18 kg/m2 Nabil Lord MD Work Phone: [facility] 10-26-2023 14:35-0500 Body weight 77.11 kg Nabil Lord MD Work Phone: [facility] Encounters Encounter Date Encounter Type Care Provider Facility Start: 08-01-2025 ambulatory MD Anamaria Chinchilla Facil [facility]y:[facility] [place] Start: 01-28-2025 ambulatory MD Anamaria Chinchilla [facility] Start: 09-17-2024 ambulatory DOTTY Lauren Facil ity:[facility] [place] Start: 09-11-2024 End: 09-11-2024 ambulatory Kushal Keith Facility:[facility] Start: 09-10-2024 End: 09-10-2024 ambulatory Anamaria Chinchilla Facility: [facility] Start: 08-28-2024 End: 08-28-2024 Bamboo flowsheet Bentley [...] state Start: 08-28-2024 End: 08-28-2024 ambulatory BENTLEY DAS Not Available Start: 08-27-2024 End: 08-27-2024 ambulatory [facility] Start: 08-09-2024 End: 08-09-2024 Lab Drop off Anamaria Chinchilla [facility] Start: 08-09-2024 End: 08-09-2024 ambulatory MD Anamaria Chinchilla Facility:[facility] Start: 07-30-2024 End: 07-30-2024 ambulatory MD Anamaria Chinchilla Facility:[facility] Start: 07-30-2024 End: 07-30-2024 ambulatory MD Anamaria Chinchilla Facility:[facility] Start: 07-13-2024 End: 07-13-2024 ambulatory VIPUL OBANDO Facility:[facility] Start: 05-07-2024 End: 05-07-2024 Lab Drop off Anamaria Chinchilla [facility] Start: 05-07-2024 End: 05-07-2024 ambulatory MD Anamaria Chinchilla [facility] Start: 12-27-2023 End: 12-27-2023 ambulatory [facility] Start: 11-29-2023 End: 11-29-2023 ambulatory [facility] Start: 11-29-2023 End: 11-29-2023 Postop follow up visit related to original px Mary GOMEZ Work Phone: [facility] - [facility] On[facility] Comment on above: Encounter for postop erative care (Primary Dx) Start: 11-14-2023 End: 11-14-2023 Evaluation and management of inpatient [facility] Start: 11-14-2023 End: 11-14-2023 Evaluation and management of inpatient NABIL Britton [facility] Start: 11-09-2023 Encounter for other preprocedural examination NABIL Britton [facility] Start: 11-09-2023 End: 11-10-2023 ambulatory NABIL Tobi [facility] Start: 11-07-2023 End: 11-07-2023 Evaluation and management of inpatient [place] [facility] Start: 11-07-2023 End: 11-07-2023 Admission to [facility] Phone Call Provider 2 [facility] Start: 10-28-2023 Patient encounter status Nabil Lord MD Work Phone: [facility] Start: 10-28-2023 Telephone encounter Nabil andersen MD Work Phone: [facility] Start: 10-26-2023 End: 10-26-2023 ambulatory NABIL LORD [facility] Start: 10-26-2023 End: 10-26-2023 Office outpatient new 60 minutes Nabil Lord MD Work Phone: [facility] Comment on above: Endometrial thickeni ng on ultrasound (Primary Dx); Postmenopausal bleeding Start: 10-19-2023 ambulatory [place] [facility] Start: 10-19-2023 Telephone encounter Linette Ga RN [facility] Start: 10-11-2023 End: 10-11-2023 ambulatory BENTLEY DAS Not Available Start: 09-01-2023 End: 09-01-2023 ambulatory VIPUL OBANDO Facility:[facility] Start: 08-11-2023 End: 08-11-2023 ambulatory MD Anamaria Chinchilla Facility[facility] [place] Start: 05-11-2023 End: 05-11-2023 Lab Drop off Violet Laurne [facility] Start: 08-03-2022 End: 08-04-[address] ANJELICA [...] Start: 09-12-2017 End: 09-13-2017 Ambulatory [facility] Procedures Date Procedure Procedure Detail [...] EST Office Visit [facility] [address] [place] [address] Bentley Das, [address], [place] [id number] [facility] Start: 11-28-2024 Adult BMI Screening Adult BMI Screen ing [facility] Start: 11-13-2024 Tobacco Screening Tobacco Screening [facility] Start: 10-25-2024 Adult BMI Screening Adult BMI Screen ing [facility] Start: 10-25-2024 Tobacco Screening [facility] [facility] Start: 08-28-2024 End: 08-28-2025 DXA Skeletal system Views for bone density DEXA bone density Imaging Routine Postmenopausal state Expected: 08/28/2024 (Approximate), Expires: 08/28/2025 [facility] Comment on above: Expected: 08/28/2024 (Approximate), Expires: 08/28/2025 Start: 08-28-2024 End: 10-26-2025 MG Breast - bilateral Screening Bilateral screening mammogram Imaging Routine Breast cancer screening by mammogram Expected: 08/28/2024, Expires: 10/26/2025 [facility] Work Phone: Comment on above: Expected: 08/28/2024 , Expires: 10/26/2025 Start: 08-28-2024 End: 08-28-2024 Patient encounter procedure 08/28/2024 9:00 AM EST Office Visit [facility] [address] [place] [address] Bentley Das, [address] [place] [address] Arrived [facility] Comment on above: Arrived Start: 04-22-2024 Influenza vaccination Influenza Vacc ine [facility] Start: 12-27-2023 End: 12-27-2023 Patient encounter procedure 12/27/2023 11:00 AM EDT Office Visit [facility] - Medical Oncology [address] [place] [phone] Mary Pennington PA [address] [place] [address] [facility] Start: 11-29-2023 End: 11-29-2023 Patient encounter procedure 11/29/2023 10:30 AM EDT Office Visit [facility] Oncology [address] [place] [phone] Mary Pennington PA [address] [place] [address] [facility] Start: 11-14-2023 End: 11-14-2023 Admission to same day surgery center 11/14/2023 11:00 AM EDT - 11/14/2023 1:00 PM EDT Surgery [facility] Surgery [address] [place] [address] [place] [address] [place] [address], [address] [place] [address] DAVINCI HYSTERECTOMY SALPINGO OOPHORECTOMY(WITH FROZEN SECTION AND POSSIBLE STAGING) [facility] Comment on above: DAVINCI HYSTERECTOMY SALPINGO OOPHORECTOMY(WITH FROZEN SECTION AND POSSIBLE STAGING) Start: 11-14-2023 End: 11-14-2023 DAVINCI HYSTERECTOMY SALPINGO OOPHORECTOMY DAVINCI HYSTERECTOMY SALPINGO OOPHORECTOMY THICKENED ENDOMETRUM/POST MENOPAUSAL BLEEDING/CERVICAL STENOSIS 11/14/2023 11:00 AM EDT [facility] Start: 11-14-2023 Subsequent hospital visit by physician 11/14/2023 11:00 AM EDT Hospital Encounter [facility] Surgery [address] [place] [phone] [place] [address] [place] [address], [address] [place] [address] [facility] Start: 11-07-2023 End: 11-07-2023 Admission to establishment 11/07/2023 10:30 AM EDT Support [facility] On [address] [phone] [facility] Start: 10-28-2023 End: 10-27-2024 XR Chest PA and Lateral X-ray chest 2 views Imaging Routine Preop testing Expected: 10/28/2023, Expires: 10/27/2024 [facility] Comment on above: Expected: 10/28/2023 , Expires: 10/27/2024 Start: 10-26-2023 End: 10-26-2023 Patient encounter procedure 10/26/2023 3:00 PM EST Office Visit [facility] Gyne[facility] Oncology [address] [place] [address] [address] [place] [phone] Nabil Lord MD [address] [place] [address], [address] [place] [address] [facility] Start: 04-22-2023 Influenza vaccination Influenza Vacc ine [facility] Start: 08-04-2022 Adult BMI Screening Adult BMI Screen ing [facility] Start: 2017 Fall Risk Screening Fall Risk Screen ing [facility] Start: 2002 Administration of varicella zoster vaccine Zoster (Shingles) Vaccine (1 of 2) [facility] Start: 1971 DTaP,Tdap and Td Vaccines (1 - Tdap) DTaP,Tdap and Td Vaccines (1 - Tdap) [facility] Start: 1970 Adult BMI Follow Up Plan Adult BMI F ollow Up Plan [facility] Start: 1964 Depression Screening Depression Scre ening [facility] Start: 1964 Tobacco Screening Tobacco Screening [facility] Start: 1952 Medicare Annual Well ness Visit Medicare Annual Wellness Visit [facility] End: 10-27-2024 CBC W Auto Differential panel - Blood CBC with auto diff Lab Routine Preop testing 1 Occurrences starting 10/28/2023 until 10/27/2024 [facility] Phone: Comment on above: 1 Occurrences starti ng 10/28/2023 until 10/27/2024 End: 10-27-2024 Comprehensive metabolic 2000 panel - Serum or Plasma Comprehensive metabolic panel Lab Routine Preop testing 1 Occurrences starting 10/28/2023 until 10/27/2024 [facility] Comment on above: 1 Occurrences starti ng 10/28/2023 until 10/27/2024 End: 10-27-2024 ECG 12 lead ECG 12 lead ECG Routine Preop testing 1 Occurrences starting 10/28/2023 until 10/27/2024 [facility] Comment on above: 1 Occurrences starti ng 10/28/2023 until 10/27/2024 Immunizations Immunization Date Immunization Notes Care Provider Fa cili 07-24-2019 pneumococcal polysaccharide vaccine, 23 valent Anamaria Chinchilla [facility] 07-21-2018 pneumococcal conjuga te vaccine, 13 valent Anamaria Chinchilla [facility] 11-08-2016 hepatitis A vaccine, adult dosage Anamaria Chinchilla [facility] 05-05-2016 hepatitis A vaccine, adult dosage Anamaria Chinchilla [facility] 07-12-2014 influenza, injectabl e, quadrivalent, preservative free Bentley Pippa DO Work Phone: [facility] 07-12-2014 influenza virus vaccine, unspecified formulation Linette Ga RN [facility] 06-05-2013 influenza virus vaccine, unspecified formulation Anamaria Chinchilla [facility] 06-05-2013 influenza, seasonal, injectable Bentley Pippa DO Work Phone: [facility] 05-18-2012 influenza virus vaccine, unspecified formulation Anamaria Chinchilla [facility] 05-18-2012 influenza, seasonal, injectable Bentley Pippa DO Work Phone: [facility] 05-17-2011 influenza virus vaccine, unspecified formulation Anamaria Chinchilla [facility] 05-17-2011 influenza, seasonal, injectable Bentley Pippa DO Work Phone: [facility] 06-25-2008 pneumococcal polysaccharide vaccine, 23 valent Anamaria Chinchilla [facility] NEGATED: Highlighted row has not occurred!07-30-2024 influenza virus vaccine, unspecified formulation Anamaria Chinchilla [facility] NEGATED: Highlighted row has not occurred!05-30-2023 influenza virus vaccine, unspecified formulation Anamaria Chinchilla [facility] NEGATED: Highlighted row has not occurred!12-01-2022 SARS-CoV-2 mRNA (tozinameran 5y-11y) vaccine Violet Lauren [facility] Payers Date Payer Category Payer Medicare (Managed Care) KELLY ASHLEY [facility] [id number] 2017 Medicare [id number]. [id number] 2017 Unknown [id number]. 1.13.424.2. [id number] 2017 Unknown [id number] 2014 Medicare [id number] 1959 Unknown [id number] 1952 Unknown [id number] 2.16.840.1.842312.3.579.2. 593 1952 Unknown [id number] 2.16.840.1.257079.3.579.2. 593 1952 Unknown [id number] 2.16.840.1.919344.3.579.2. 593 1952 Unknown [id number] 2.16.840.1.000259.3.579.2. 593 1952 Unknown [id number] 2.16.840.1.784117.3.579.2. 593 1952 Unknown [id number] 2.16.840.1.453081.3.579.2. 593 1952 Unknown [id number] 2.16.840.1.389435.3.579.2. 593 1952 Unknown [id number] 2.16.840.1.842542.3.579.2. 593 1952 Unknown [id number] 2.16.840.1.581037.3.579.2. 1286 1952 Unknown [id number] 2.16.840.1.156379.3.579.2. 1286 1952 Unknown [id number] 2.16.840.1.818231.3.579.2. 1286 1952 Unknown [id number] 2.16.840.1.167025.3.579.2. 1286 1952 Unknown [id number] 2.16.840.1.928167.3.579.2. 1286 1952 Unknown [id number] 2.16.840.1.226052.3.579.2. 1286 1952 Unknown [id number] 2.16.840.1.158006.3.579.2. 1286 1952 Unknown [id number] 2.16.840.1.142701.3.579.2. 1286 1952 Unknown [id number] 2.16.840.1.212505.3.579.2. 1286 1952 Unknown [id number] 2.16.840.1.705977.3.579.2. 1286 1952 Unknown [id number] 2.16.840.1.640837.3.579.2. 1286 1952 Unknown [id number] 2.16.840.1.933868.3.579.2. 727 1952 Unknown [id number] 2.16.840.1.976018.3.579.2. 727 1952 Unknown [id number] 2.16.840.1.892302.3.579.2. 727 1952 Unknown [id number] 2.16.840.1.644002.3.579.2. 727 1952 Unknown [id number] 2.16.840.1.144721.3.579.2. 727 1952 Unknown [id number] 2.16.840.1.164327.3.579.2. 727 1952 Unknown [id number] 2.16.840.1.258902.3.579.2. 727 1952 Unknown [id number] 2.16.840.1.596400.3.579.2. 727 1952 Unknown [id number] 2.16.840.1.083664.3.579.2. 727 1952 Unknown [id number] 2.16.840.1.988565.3.579.2. 727 1952 Unknown [id number] 2.16.840.1.646328.3.579.2. 727 1952 Unknown [id number] 2.16.840.1.339057.3.579.2. 1259 1952 Unknown [id number] 2.16.840.1.414299.3.579.2. 1259 1952 Unknown [id number] 2.16.840.1.884228.3.579.2. 196 1952 Unknown [id number] 2.16.840.1.716146.3.579.2. 727 1952 Unknown [id number] 2.16.840.1.078702.3.579.2. 727 1952 Unknown [id number] 2.16.840.1.176145.3.579.2. 727 Social History Date Type Detail Facility Start: 05-11-2023 End: 11-07-2023 Tobacco smoking status Never smoked tobacco (finding) [facility] Comment on above: denies denies use. Tobacco smoking status Never [facility] Comment on above: denies Start: 01-12-2018 End: 10-02-2020 Sex Assigned At Female [facility] Start: 01-12-2018 End: 11-07-2023 Tobacco use and exposure Smokeless tobacco non-user [facility] Start: 01-12-2018 End: 11-14-2023 Alcohol intake Current drinker of alcohol (finding) [facility] Start: 01-12-2018 End: 10-02-2020 Alcohol intake [facility] Start: 1950 Sex Assigned At Not on file P [facility] Start: 1950 Sex Assigned At Female P [facility] Start: 10-24-2023 Gender identity Identifies as female gender (finding) [facility] History of tobacco use Passive smoker [facility] Clinical Notes 08-05-2022 to 08-28-2024 Maryanne Mancia [...] Daily aspirin 81 mg, Every other day Jwntlvq-Olsjrprfrn-Rjzloyr D (VITAMIN D3/CALCIUM/PHOSPHORUS PO) 1 each, Daily Denosumab (PROLIA SC) 1 Units, Every 6 months Durysta 10 mcg, As needed losartan (COZAAR) 100 mg, Daily [place]-3 500 mg rosuvastatin (CRESTOR) 20 mg ALLERGIES Allergies Allergen Reactions Hydromorphone Unknown PROBLEMS Active Ambulatory Problems Diagnosis Date Noted Age-related osteoporosis without current pathological fracture ([facility]) 01/31/2023 Arthritis 12/27/2016 Hypercholesterolemia ([facility]) 12/27/2016 Hypertension ([facility]) 01/31/2023 Iron deficiency anemia 12/27/2016 TIA (transient ischemic attack) 01/31/2023 History of colon polyps 02/01/2023 Hyperlipidemia ([facility]) 02/23/2023 Resolved Ambulatory Problems Diagnosis Date Noted No Resolved Ambulatory Problems Past Medical History: Diagnosis Date Bronchitis Capillary angioma Cataracts, bilateral Chicken pox Family history of cancer Gallstone pancreatitis 2017 Glaucoma ([facility]) Hemorrhoids 2013 High blood pressure ([facility]) High cholesterol ([facility]) Measles Mumps Osteoporosis ([facility]) Pneumonia Stress fracture Tonsillitis Tubular adenoma 2013 HISTORY PAST MEDICAL HISTORY SOCIAL HISTORY Past Medical History: Diagnosis Date Arthritis Bronchitis Capillary angioma Cataracts, bilateral Chicken pox Family history of cancer Gallstone pancreatitis 2017 Glaucoma ([facility] Hemorrhoids 2013 High blood pressure ([facility] High cholesterol ([facility]) Measles Mumps Osteoporosis ([facility]) Pneumonia Stress fracture Tonsillitis Tubular adenoma 2012 /colon polyp Social History Tobacco Use Smoking [...] nursing note reviewed. Exam conducted with a media center director school present. Vitals: Estimated body mass index is [...] to return in 1 year. Documented by Maraynne Mancia LPN on behalf of: Bentley Das DO documented in this encounter [facility] 08-09-2024 Note Nurse Consultation N ote Reason [...] 05/17/2011 Recorded pneumococcal 23-valent vaccine 06/25/2008 Recorded [facility] 07-30-2024 Note Patient Education Cardiovascular Hypertension, Adult [...] Keep all follow-up visits. Medicines ??? Take whpk-iug-gyqtgmd and prescription medicines only as told by [...] Hypertension is a (more content not included)... [facility] 07-13-2024 Note Patient Education Infectious Disease Pharyngitis [...] these instructions at home: Medicines ??? Take usgz-hkx-fxxwhoe and prescription medicines only as told by [...] and water are not available, use hand gem cutter. ??? Do not touch your eyes, nose, [...] provider. Document Revised: 11/04/2021 Document Reviewed: 11/04/2021 [employer] Patient Education ? 2023 [employer]. [facility] 11-29-2023 History of Presen t illness Narrative [...] 01/12/2018 Performed by Nitesh Littlejohn MD at [facility] ROBOTIC ASSISTED HYSTERECTOMY, BILATERAL SALPINGO OOPHORECTOMY, PELVIC WASHINGS Bilateral 11/14/2023 Performed by Nabil Lord MD at [facility] HEMORROIDECTOMY 2000's SKIN BIOPSY Right 2017 thigh TONSILLECTOMY age [...] *This note was completed using a voice flea market seller system. Every effort was made to ensure accuracy. However, inadvertent computerized flea market seller errors may be present. .Total time spent was 20 minutes: Preparing to see the patient (e.g., review of tests) Performing a medically appropriate examination and/or evaluation Counseling and educating the patient/family/caregiver Documenting clinical information in the electronic or other health record Care coordination (not separately reported) Mary Pennington PA-C, RD, IF JSAON Zaragoza 11/29/23 1101 documented in this encounter [facility] 11-07-2023 Instructions Formatting of th is note might be different from the original. Your surgery/procedure is scheduled at [facility] on 11/14/2023 at 11 am Arrival Time 9 am [facility] Address: [address] [place] [address], [address] [address] in the Emergency Center Parking lot. Report to the net front end developer in the Emergency/Surgery Registration lobby of the hospital. Please call Pre-Admission Clinic at [phone] if you have any questions prior to surgery. For questions the morning of surgery, please call the Pre-op Department at [phone]. Notify your SURGEON if you develop any [...] would like to schedule therapy at a [facility] Rehab facility, please call [phone] ([phone]). Do not use lotions, creams, powders, perfume, make up, cologne or after-shaves day of surgery. Remove ALL jewelry including wedding rings, body piercings, hair extensions that contain metal, nail turks and caicos islander, make-up, and contact lens. You may brush your teeth the morning of surgery, but do not swallow the water. Wear your dentures and partial plates to the hospital (no adhesive). Shower the night the before. If applicable, use the CHG (chlorhexidine gluconate) soap or wipes. Please be advised, [facility] has transitioned to a cashless payment system. [...] RIGHTS AND RESPONSIBILITIES As a patient at [facility], you have the right to: Receive medical care and be informed of who is taking care of you Be treated with dignity and respect Have a family member/registered representative of choice and your physician notified of your admission Receive information and actively participate in decisions about your care and treatment Refuse care, treatment and services Decide who may provide your support and speak for you Access zoroastrianism and spiritual services Participate in ethical issues [...] of hospital charges and payment methods Patient/patient registered representative responsibilities are to: Provide information about health status to facilitate care, treatment and services Follow the treatment, plan, keep appointments and speak up when you do not understand the plan Respect the rights of other patients and healthcare personnel Follow organizational rules and regulations that support quality care and a safe environment Fulfill financial obligations as promptly as possible [facility] 11-07-2023 Miscellaneous Notes Pt is going to [facility] on 11/09/2023 to havre EKG, CXR and labs. Your surgery/procedure is scheduled at [facility] on 11/14/2023 at 11 am Arrival Time 9 am [facility] Address: [address] [place] [address], [facility] Park in the Emergency Center Parking lot. Report to the net front end developer in the Emergency/Surgery Registration lobby of the hospital. Please call Pre-Admission Clinic at [phone] if you have any questions prior to surgery. For questions the morning of surgery, please call the Pre-op Department at [phone]. Notify your SURGEON if you develop any [...] would like to schedule therapy at a [facility] Rehab facility, please call [phone] ([phone]). Do not use lotions, creams, powders, perfume, make up, cologne or after-shaves day of surgery. Remove ALL jewelry including wedding rings, body piercings, hair extensions that contain metal, nail turks and caicos islander, make-up, and contact lens. You may brush your teeth the morning of surgery, but do not swallow the water. Wear your dentures and partial plates to the hospital (no adhesive). Shower the night the before. If applicable, use the CHG (chlorhexidine gluconate) soap or wipes. Please be advised, [facility] has transitioned to a cashless payment system. [...] RIGHTS AND RESPONSIBILITIES As a patient at [facility], you have the right to: Receive medical care and be informed of who is taking care of you Be treated with dignity and respect Have a family member/registered representative of choice and your physician notified of your admission Receive information and actively participate in decisions about your care and treatment Refuse care, treatment and services Decide who may provide your support and speak for you Access zoroastrianism and spiritual services Participate in ethical issues [...] of hospital charges and payment methods Patient/patient registered representative responsibilities are to: Provide information about [...] promptly as possible documented in this encounter [facility] 11-07-2023 Nurse Note Pt is going to [facility] on 11/09/2023 to havre EKG, CXR and labs. [facility] 10-28-2023 Miscellaneous Notes Spoke with Mee 10/26 and 10/27 to confirm surgery plan. Patient is scheduled at [facility] with Dr Lord on 11/14/23. She knows to arrive at 9:00a for 11:00a surgery. Patient knows to call [phone] [facility] facility in order to complete PAT testing. She has phone call PAT scheduled for 11/07/23. She will follow up with Mary in [place] on 11/29/23 at 10:30a. documented in this encounter [facility] 10-28-2023 Telephone encounter Note Spoke with Mee 10/26 and 10/27 to confirm surgery plan. Patient is scheduled at [facility] with Dr Lord on 11/14/23. She knows to arrive at 9:00a for 11:00a surgery. Patient knows to call [phone] [facility] facility in order to complete PAT testing. She has phone call PAT scheduled for 11/07/23. She will follow up with Mary in [place] on 11/29/23 at 10:30a. [facility] 10-26-2023 History of Presen t illness [...] personal or family history of GI or sole assessor malignancies. Oncology History No overview note Isaura [...] 01/12/2018 Performed by Nitesh Littlejohn MD at [facility] HEMORROIDECTOMY TONSILLECTOMY Past Medical History: Diagnosis [...] procedures Referring and communicating with other health ambulatory care (not separately reported) Documenting clinical information in the electronic or other health record Independently interpreting results (not separately reported) and communicating results to the patient/family/caregiver Nabil Lord MD documented [facility] encounter [email or web address] 10-19-2023 Miscellaneous Notes Left to schedule GARDEN IMPLEMENT MECHANIC appt with sole assessor onc, call back # provided. Requested images from pelvic US be pushed via PACS from [facility]. documented in this encounter [facility] 10-19-2023 Telephone encounter Note Left to schedule GARDEN IMPLEMENT MECHANIC appt with sole assessor onc, call back # provided. Requested images from pelvic US be pushed via PACS from [facility]. [email or web address] 08-11-2023 Note Procedures Choosing a Surgeon When [...] a surgeon: ? Is certified by the [place] [employer]. To be board [...] going to your state medical board at www.fsmb.org/pdhsqiv-x-tcwds-wv dical-board/ ? Has good ratings from other [...] you are considering is certified by the [place] [employer]. ? Meet with [...] provider. Document Revised: 10/19/2021 Document Reviewed: 10/19/2021 Munch On Me Patient Education ? 2022 [employer]. [facility] 08-05-2022 Note PROCEDURE: XR FOOT L [...] authenticated by: ALAN CÁRDENAS Date: 2022-08-04 22:03 [facility] Evaluation + Plan note Future Appointments Appointment Date:05/30/2023 02:00:00 PM Scheduled Provider: [facility] Type:FM Medicare Wellness Subsequent Appointment Date:05/30/2023 02:40:00 PM Scheduled Provider:Anamaria Chinchilla MD [facility] Appointment Type: Open Diagnostic Tests PendingUrine Culture 05/11/23 [facility] Evaluation + Plan note Future Appointments Appointment Date:07/30/2024 10:30:00 AM Scheduled Provider:[facility]am[facility]inchilla MD [facility] Open Appointment Date:07/30/2024 11:00:00 AM Scheduled Provider: [facility] Type: Medicare Wellness Subsequent Diagnostic Tests PendingUrine Culture 05/07/24 [facility] Evaluation + Plan note Future Appointments Appointment Date:01/28/2025 08:45:00 AM Scheduled Provider:Anamaria Chinchilla MD [facility] Type:FM Open Appointment Date:08/01/2025 11:00:00 AM Scheduled Provider: Location:[facility] Appointment Type:FM Medicare Wellness Subsequent [facility] Evaluation note Diagnosis Endometrial thickening on ultrasound- Primary Postmenopausal bleeding documented [facility] this [facility] Preop testing- Primary Unspecified pre-operative examination [facility] Diagnosis Well woman exam with routine gynecological exam Routine gynecological examination Breast cancer screening by mammogram Postmenopausal state Asymptomatic postmenopausal status (age-related) (natural) [facility] Encounter for postoperative care- Primary [facility] N[facility] No data available for this [facility] No data available for this section [facility] filedocumented in this [facility] filedocumented in this encounter [facility] filedocumented in this [facility] No data available for this section [facility] Summary Purpose Family History No Family History [...] Procedures ECG 12 lead Nabil Lord MD [address] [place] [address], [place] [address] Referral ID Status Reason Start Date Expiration Date V isits Requested Visits Authorized [id number] Pending Review 10/28/2023 10/27/2024 1 1 Additional Source Comments INFORMATION SOURCE (unrecogn ized section and content) DATE CREATED AUTHOR 02/13/2018 [facility] DATE CREATED AUTHOR AUTHOR'S ORGANIZ ATION 08/12/2022 [facility] DATE CREATED AUTHOR AUTHOR'S ORGANIZ ATION 10/27/2023 [facility] DATE CREATED AUTHOR AUTHOR'S ORGANIZ ATION 10/28/2023 [facility] DATE CREATED AUTHOR AUTHOR'S ORGANIZ ATION 11/18/2023 [facility] DATE CREATED AUTHOR AUTHOR'S ORGANIZ ATION 12/28/2023 [facility] DATE CREATED AUTHOR AUTHOR'S ORGANIZ ATION 05/15/2024 [facility] DATE CREATED AUTHOR AUTHOR'S ORGANIZ ATION 08/10/2024 [facility] DATE CREATED AUTHOR AUTHOR'S ORGANIZ ATION 08/12/2024 [facility] DATE CREATED AUTHOR AUTHOR'S ORGANIZ ATION 08/13/2024 [facility] DATE CREATED AUTHOR AUTHOR'S ORGANIZ ATION 09/03/2024 [facility] DATE CREATED AUTHOR AUTHOR'S ORGANIZ ATION 09/13/2024 [facility] DATE CREATED AUTHOR AUTHOR'S ORGANIZ ATION 09/17/2024 [facility] Patient Care team informatio n (unrecognized section and content) Weed Inspector Relationship Specialty Start Date End Date Anjelica Gambino MD [address] [place] [address] PCP - General Family Medicine 12/24/16 Weed Inspector Relationship Specialty Start Date End Date Anjelica Gambino MD [facility] [address] PCP - General Family Medicine 12/24/16 Weed Inspector Relationship Specialty Start Date End Date Anjelica Gambino MD [facility] [address] PCP - General Family Medicine 12/24/16 Weed Inspector Relationship Specialty Start Date End Date Anamaria Chinchilla MD [address] [place] [address] PCP - General Family Medicine 11/07/23 Weed Inspector Relationship Specialty Start Date End Date Anjelica Gambino MD [address] [place] [address] PCP - General Family Medicine 01/27/23 Weed Inspector Relationship Specialty Start Date End Date Anjelica Gambino MD [address] [facility] [place] [address] PCP - General Family Medicine 01/27/23 Reason [...] BE BASED ON THE PRIMARY CLINICAL RECORDS. [facility]. provides no warranty or guarantee of the accuracy or completeness of information in this document.
== END 2024-09-18 12:47 | disposition home or self-care (01) ==
LOC: RAD 12:47
PROVIDERS: PCP Family Medicine; Visit Provider Podiatrist Foot & Ankle Surgery
DX: M79.671 Pain in right foot (principal); M79.672 Pain in left foot; S92.325D Nondisplaced fracture of second metatarsal bone, left foot, subsequent encounter for fracture with routine healing; S92.354D Nondisplaced fracture of fifth metatarsal bone, right foot, subsequent encounter for fracture with routine healing
CPT/HCPCS: 73630

== ENCOUNTER 2024-10-05 08:42 | Outpatient (OUT) | payer MEDICARE, SELFPAY ==
--- OUTSIDE RECORDS SUMMARY | 2024-10-05 09:10 | XMS_ITS | CCD ---
Author Organization [facility] Care Team Providers Care Greenskeeper Name Role Phone FARA BOOKER Unavailable Unavailable [...] Care Unavailable GAMBINO, ANJELICA E Referring Unavailable GAMBINO, ANJELICA E Primary Care Unavailable Anamaria Chinchilla MD Primary Care Provider [phone] ANJELICA GAMBINO Referring Unavailable ROSS, ANAMARIA E Primary Care Unavailable CAROLYN, NABIL C Admitting Unavailable CAROLYN, NABIL C Attending Unavailable CAROLYN, NABIL C Referring Unavailable GAMBINO, ANJELICA E Primary Care Unavailable SUNG NIÑO Attending Unavailable AMOR, ANAMARIA E Primary Care Unavailable CAROLYN, NABIL C Attending Unavailable CAROLYN, NABIL C Referring Unavailable ROSS, ANAMARIA E Primary Care Unavailable CAROLYN, NABIL C Attending Unavailable CAROLYN, NABIL C Referring Unavailable ROSS, ANAMARIA E Primary Care Unavailable CAROLYN, NABIL C Referring Unavailable AMOR, ANAMARIA E Primary Care Unavailable MARY PENNINGTON Attending Unavailable GAMBINO, ANJELICA E Referring Unavailable AMOR, ANAMARIA E [...] Chinchilla Attending Unavailable Anamaria Chinchilla Attending Unavailable Violet Lauren Attending Unavailable Anamaria Chinchilla Attending Unavailable Anamaria Chinchilla Admitting Unavailable Allergies Allergy Classification Reported Allergen(s) Allergy Type Date of Onset Reaction(s) Facility (5 sources) atorvastatin; Translations: [atorvastatin] Drug Allergy Unknown (qualifier value) [facility] (14 sources) HYDROmorphone; Translations: [hydromorphone] Drug Allergy 3 Unknown (qualifier value), Confusion, Hallucinations, Unknown [facility] (5 sources) Pyrilamine; Translations: [pyrilamine] Drug Allergy Unknown (qualifier value) [facility] (3 sources) No Known Medication Allergies; Translations: [No Known Medication Allergies] Propensity to adverse reactions (disorder) [facility] Repository Medications Current Medications Medication Drug Class(es) Dates Sig (Normalized) Sig (Original) amLODIPine 5 mg oral tablet (10 sources) Dihydropyridine Calcium Channel Sylvester Start: 06-01-2023 take 1 tablet by mouth once daily amLODIPine 5 mg Tab See Instructions, TAKE 1 TABLET BY MOUTH DAILY, # 90 tab(s), Refills(s) 0, Pharmacy: [facility] [id number], 162, cm, 05/07/24 14:07:00 EDT, Height/Length Dosing, 76, kg, 05/07/24 14:07:00 EDT, Weight Dosing Start Date: 07/10/24 Status: Ordered aspirin 81 mg oral capsule (11 sources) Platelet Aggregation Inhibitor, Nonsteroidal Anti-inflammatory Drug Start: 11-29-2022 take 1 capsule by mouth every other day aspirin 81 mg oral capsule See Instructions, 1 cap(s) Oral every other day, Refills(s) 0 Start Date: 11/29/22 Status: Ordered Start: 11-29-2022 take 1 capsule by mo [facility] once daily aspirin 81 mg oral capsule 81 mg = 1 cap(s), Oral, Daily, Refills(s) 0 Start Date: 11/29/22 Status: Ordered take 1 tablet by silver every other day aspirin 81 MG EC tablet Take 81 mg by mouth every other day. Active aspirin 81 mg ch ewable tablet Chew 1 tablet (81 mg total) and swallow every other day. Heart health Active bimatoprost 0.01 mg drug implant (9 sources) Prostaglandin Analog Start: 07-13-2024 Durysta 1 [...] rpt for 2nd eye with clean applicator Active Calcium Citrate / Vitamin D (2 sources) Start: 05-30-2023 calcium-vitami n D Daily, Refill(s) 0 Start Date: 05/30/23 Status: Ordered Qnceepx-Fupidrpbmw-Vob harp D (VITAMIN D3/CALCIUM/PHOSPHORUS PO) (3 sources) take 1 dose by mouth once in the morning Ffbvckb-Tqegcamnjo-Aad harp D (VITAMIN D3/CALCIUM/PHOSPHORUS PO) Take 1 each by mouth in the morning. Active cholecalciferol 0.025 mg oral capsule (5 sources) Vitamin D take 1 capsule by mouth once daily in the morning cholecalciferol, vitamin D3, 25 mcg (1,000 unit) capsule Indications: prevention of vitamin D deficiency Take 1 capsule (1,000 Units total) by mouth in the morning. Indications: prevention of vitamin D deficiency. With calcium. Active take 1 capsule by mo uth [...] (three) times a day. 0 Active denosumab (8 sources) RANK Ligand Inhibitor Start: 024 Denosumab (PROLIA SC) Inject 1 Units under the skin every 6 (six) months 07/30/2024 Active Start: 07-30-2024 Prolia mg, Sub Cutaneous, q6mo, Refills(s) 0 Start Date: 07/30/24 Status: Ordered denosumab (PROLI A SUBQ) Inject under the skin every 6 (six) months. Last dose 09/2023 Active denosumab (PROLI A SUBQ) Inject under the skin every 6 (six) months. Last dose 09/2023 0 Active denosumab (PROLI A SUBQ) Inject under the skin. 0 Active docusate sodium 100 mg oral capsule (3 sources) take 2 capsules by mouth once daily at dinner docusate sodium (COLACE) 100 mg capsule Indications: constipation Take 2 capsules (200 mg total) by mouth Daily before evening meal Indications: constipation. Active docusate sodium 50 mg / sennosides, shelter 8.6 mg oral tablet (2 sources) Start: 4 take 1 tablet by mouth in the morning sennosides-docusate sodium (SENOKOT-S) 8.6-50 mg Take 1 tablet by mouth in the morning. 60 tablet 11/14/2023 Active doxycycline hyclate 100 mg oral capsule (1 source) Tetracycline-c lass Drug Start: 4 End: 4 take 1 capsule by mouth twice daily doxycycline hyclate 100 mg Cap 100 mg = 1 cap(s), Oral, BID, X 7 day(s), # 14 cap(s), Refills(s) 0, Pharmacy: [facility] [id number], 162, cm, 05/07/24 14:07:00 EDT, Height/Length Dosing, 76, kg, 05/07/24 14:07:00 EDT, Weight Dosing Start Date: 05/07/24 Stop Date: 05/14/24 Status: Ordered glucosamine hydrochloride 1500 mg oral tablet (3 sources) Start: 3 glucosamine hydrochloride 1500 mg oral tablet 1,500 mg, 1 tab(s), Oral, Daily, 30 tab(s), Refill(s) 0 Start Date: 12/01/22 Status: Ordered glucosamine HCl/chondroitin jennings (GLUCOSAMINE-CHONDROITI N ORAL) (3 sources) take 1 tablet by mouth in the morning glucosamine HCl/chondroitin jennings (GLUCOSAMINE-CHONDROIT IN ORAL) Take 1 tablet by mouth in the morning. joints. Active take 1 tablet by silver th in the morning glucosamine HCl/chondroitin jennings (GLUCOSAMINE-CHONDROITIN ORAL) Take 1 tablet by mouth in the morning. joints. 0 Active krill oil 500 mg oral capsule (6 sources) Start: 12-01-2022 Krill Oil ([place]-3) 500 MG capsule Take 500 mg by mouth. 12/01/2022 Active losartan potassium 100 mg oral tablet (10 sources) Angiotensin 2 Receptor Sylvester Start: 05-30-2023 take 1 tablet by mouth in the morning losartan (Cozaar) 100 MG tablet Take 100 mg by mouth in the morning. 05/30/2023 Active Start: 12-15-2022 take 1 tablet by silver th twice daily losartan 25 mg Tab 25 mg = 1 tab(s), Oral, BID, # 180 tab(s), Refills(s) 0, Pharmacy: [facility] [id number], 162, cm, 05/11/23 9:36:00 EDT, Height/Length Dosing, 74.9, kg, 05/11/23 9:36:00 EDT, Weight Dosing Start Date: 05/11/23 Status: Ordered meloxicam 15 mg oral tablet (5 sources) Nonsteroidal Anti-inflammatory Drug Start: 02-27-2023 End: 11-07-2023 take 1 tablet by mouth once daily as needed meloxicam 15 mg Tab See Instructions, TAKE ONE TABLET BY MOUTH DAILY NEEDED, # 90 tab(s), Refills(s) 0, Pharmacy: [facility] [id number], 162.6, cm, 12/01/22 15:23:00 EDT, Height/Length Dosing, 76.5, kg, 12/01/22 15:23:00 EDT, Weight Dosing Start Date: 02/27/23 Status: Ordered omega-3 acid ethyl esters (shelter) 1000 mg oral capsule (2 sources) take 1 capsule by mouth at bedtime omega-3 acid ethyl esters (LOVAZA) 1 gram capsule Take 2 capsules (2 g total) by mouth in the morning and 2 capsules (2 g total) before bedtime. 0 Active OMEGA-3 ACID ETHYL ESTERS ORAL (3 sources) take 500 mg by mouth once daily OMEGA-3 ACID ETHYL ESTERS ORAL Take 500 mg by mouth nightly. supplement Active take 500 mg by mouth once daily OMEGA-3 ACID ETHYL ESTERS ORAL Take 500 mg by mouth nightly. supplement 0 Active psyllium 3400 mg powder for oral suspension (9 sources) End: 08-28-2024 psyllium (Metamucil) 48.57 % powder Orally 08/28/2024 Discontinued take 1 dose by mouth in the morn ing psyllium (METAMUCIL) 3.4 gram packet Indications: constipation Take 1 packet (3.4 g total) by mouth in the morning. Indications: constipation. Active rosuvastatin calcium 20 mg oral tablet (11 sources) HMG-CoA Reductase Inhibitor Start: 12-01-2022 take 1 tablet by mouth once daily rosuvastatin 20 mg Tab See Instructions, TAKE 1 TABLET BY MOUTH DAILY, # 90 tab(s), Refills(s) 4, Pharmacy: [facility] [id number], 162, cm, 09/01/23 11:37:00 EST, Height/Length Dosing, [...] Ordered vitamin e 450 mg oral capsule (11 sources) Start: 12-01-2022 take 1 capsule by mouth once daily vitamin E 450 mg oral capsule See Instructions, take one daily 400mg, Refills(s) 0 Start Date: 12/01/22 Status: Ordered Start: 12-01-2022 alpha tocopher ol (Vitamin E) 1000 units capsule See Instructions, take one daily 400mg, Refills(s) 0 12/01/2022 Active take 1 capsule by [facility] once daily at dinner vitamin E, dl,tocopheryl acet, (vitamin E, dl, acetate,) 180 mg (400 unit) capsule Take 1 capsule (400 Units total) by mouth Daily before evening meal. Active take 1 capsule by [facility] in the morning vitamin E, dl,tocopheryl acet, [...] (1 source) Fatigue 07-30-2024 Episodic Menopausal disorders (10 sources) Postmenopausal bleeding; Translations: [Postmenopausal bleeding] Onset: 10-27-2023 Resolved: 11-28-2023 05-11-2023 Chronic Osteoarthritis (9 sources) Arthritis; Translations: [Unspecified osteoarthritis, unspecified site] [...] more but less than 30 07-30-2024 Episodic Residual codes; unclassified (1 source) Pain, unspecified; [...] Onset: 09-08-2021 Episodic Deficiency and other anemia (9 sources) Iron deficiency anemia; Translations: [Iron deficiency anemia, unspecified] Onset: 12-27-2016 12-27-2016 Episodic Diabetes mellitus without complication (1 source) Hyperglycemia, unspecified; Translations: [HYPERGLYCEMIA UNSPECIFIED] Onset: 02-11-2022 Episodic Other aftercare (2 sources) Postoperative visit; Translations: [Encounter for other specified surgical aftercare] 11-28-2023 Episodic Other and unspecified benign neoplasm (3 sources) History of polyp of colon; Translations: [History of colon polyps] Onset: 02-01-2023 02-01-2023 Episodic Other bone disease and musculoskeletal deformities (1 source) Other specified disorders of bone density and structure, unspecified site; Translations: [OTH D/O BONE DEN STRUCT UNS SITE] Onset: 09-22-2021 Episodic Other screening for suspected conditions (not mental disorders or infectious disease) (7 sources) Endometrium thickened; Translations: [Abnormal findings on diagnostic imaging of other specified body structures] Onset: 10-27-2023 Resolved: 12-27-2023 10-27-2023 Chronic Residual codes; unclassified (1 source) Family history [...] Results Test Name Value Interpretation Reference Range Geni gaxiola Family Medicine Office/Clini c Noteon 09-17-2024 Family [...] and her call the squad transferred to [facility] she did vomit a few times and [...] her called 911 and was taken to [facility]. was hydrated with IV fluids and given [...] tendinitis, unspecified shoulder) pt was seen at [facility] ortho Dr. Keith to go over [...] 23-valent v (more content not included)... Normal [facility] Comment on above: Result Comment: Elec tronically Signed By: Leonidas STORM, Violet Rosado\.br\Date and Time Signed: 09/17/24 11:46 EST C ANAon 09-13-2024 C KARLEE -- - Pre No anaerobic growth after 48 hrs. Normal [facility] Comment on above: Performed By: #### A NAC #### [address] [address] [place] 09-13-2024 C Wound -- - Final No growth at 48 hours. Normal [facility] Comment on above: Performed By: #### W DC #### [address] [address] Family Medicine Office/Clini c Noteon 09-11-2024 Family Medicine Office/Clinic Note Family Medicine Office/Clinic Note [facility] Staff Isaura is a 74 year old female presenting with a cat bite on right ankle Onset: History of Present Illness Pt was bit 1-2 days before presenting to me. Seen in [facility] who started the patient on Abx. Area [...] Given Postpone due to refusal SARS-CoV-2 mRNA (tonien 5y-11y) vac - Not Given Postpone due to refusal pneumococcal 23-valent vaccine 07/24/2019 Recorded pneumococcal 13-valent vaccine 07/21/2018 Recorded hepatitis A adult vaccine 11/08/2016 Recorded hepatitis A adult vaccine 05/05/2016 Recorded influenza virus vaccine, inactivated 07/12/2014 Recorded influenza virus vaccine, inactivated 06/05/2013 Recorded influenza virus vaccine, inactivated 05/18/2012 Recorded influenza virus vaccine, inactivated 05/17/2011 Recorded pneumococcal 23-valent vaccine 06/25/2008 Recorded Normal [facility] Comment on above: Result Comment: Elec tronically Signed By: Anamaria Chinchilla MD\.br\Date and Time Signed: 09/11/24 12:15 EST OR Trackon 09-11-2024 Specimens Received From [facility] Comment on above: Performed By: #### [facility] Tracking Order #### [facility] [address] [place] [address] Ambulatory Visit Summaryon 0 09-10-2024 Ambulatory Visit [...] AM EDT With: Anamaria Chinchilla MD Where: [address] [address] 2024 11:00 AM EST With: Where: [address] [id number]- Medications What How Much When Instructions Unchanged [...] for choosing us for your care. Normal [facility] Ambulatory Visit Summaryon 0 08-27-2024 Ambulatory Visit Summary Ambulatory Visit Summary ISAURA HAYDEN :1950 Visit Date:08/27/2024 Ambulatory Visit Instructions Your Diagnosis Left arm pain CKD stage 3a, GFR 45-59 ml/min BMI 29.0-29.9,adult Age-related osteoporosis without current pathological fracture Your Care Team Attending Physician - Anamaria Chincihlla MD Primary Care Physician - Anamaria Chinchilla [...] AM EDT With: Anamaria Chinchilla MD Where: [address] [address]24 11:00 AM EST With: Where: [address] [address]- Medications What How Much When Instructions Unchanged [...] you for choosing us for your care. Natalee [facility] Family Medicine Office/Clini c Noteon 08-27-2024 [...] ortho for this. Follow up PRN Ordered: [facility] External Ambulatory Referral 2. CKD stage 3a, GFR 45-59 ml/min (N18.31: Chronic kidney disease, stage 3a) Improved on last lab work. Follow up PRN Ordered: A1c POC 14[address] [facility] External Ambulatory Referral 3. BMI 29.0-29.9,adult (Z68.29: Body mass index [BMI] 29.0-29.9, adult) BMI education added Ordered: [facility] External Ambulatory Referral 4. Age-related osteoporosis without current pathological fracture (M81.0: Age-related osteoporosis without current pathological fracture) Reviewed Labs and Dexa. Prolia does not seem to be helping. Follows with Dr. Das. Ordered: [facility] External Ambulatory Referral Follow-up No qualifying data [...] A1c POC: 5.2 % (08/27/24 12:02:00) Normal [facility] Comment on above: Result Comment: Elec tronically Signed By: Amor SHORT, Anamaria Harvey\.br\Date and Time Signed: 08/27/24 12:03 EST CBC w/ Auto Diffon 4 Basophils/100 WBC (Bld) 0.7 % Normal 0.0-2.0 [facility] Comment on above: Performed By: #### 2 [id number] #### [facility] [address] [place] [address] Basophils/Leukocyte s Auto (Bld) [Pure # fraction] 0.1 E9/L Normal 0.0-0.2 [facility] Comment on above: Performed By: #### 2 [id number] #### [facility] [address] [place] [address] Eosinophils (Bld) [#/Vol] 0.3 E9/L Normal 0.0-0.5 [facility] Comment on above: Performed By: #### 2 [id number] #### [facility] [address] [place] [address] Eosinophils/100 WBC (Bld) 3.2 % Normal 0.0-8.0 [facility] Comment on above: Performed By: #### 2 [id number] #### [facility] [address] [place] [address] Erythrocyte distribution width (RBC) [Ratio] 13.7 % Normal 10.9-14.2 [facility] Comment on above: Performed By: #### 2 [id number] #### [facility] [address] [place] [address] Hematocrit (Bld) [Volume fraction] 36.1 % Normal 34.0-46.0 [facility] Comment on above: Performed By: #### 2 [id number] #### [facility] [address] [place] [address] Hemoglobin (Bld) [Mass/Vol] 12.3 g/dL Normal 12.0-16.0 [facility] Comment on above: Performed By: #### 2 [id number] #### [facility] [address] [place] [address] Lymphocytes (Bld) [#/Vol] 1.7 E9/L Normal 1.0-4.0 [facility] Comment on above: Performed By: #### 2 [id number] #### [facility] [address] [place] [address] Lymphocytes/100 WBC (Bld) 20.6 % Normal 14.0-50.0 [facility] Comment on above: Performed By: #### 2 [id number] #### [facility] [address] [place] [address] MCH (RBC) [Entitic mass] 33.6 pg Normal 27.0-34.0 [facility] Comment on above: Performed By: #### 2 [id number] #### [facility] [address] [place] [address] MCHC (RBC) [Mass/Vol] 34.1 g/dL Normal 31.4-36.0 [facility] Comment on above: Performed By: #### 2 [id number] #### [facility] [address] [place] [address] MCV (RBC) [Entitic vol] 98.7 fL Normal 80.0-100.0 [facility] Comment on above: Performed By: #### 2 [id number] #### [facility] [address] [place] [address] Monocytes (Bld) [#/Vol] 0.6 E9/L Normal 0.2-1.0 [facility] Comment on above: Performed By: #### 2 [id number] #### [facility] [address] [place] [address] Neutrophils (Bld) [#/Vol] 5.8 E9/L Normal 2.0-7.5 [facility] Comment on above: Performed By: #### 2 [id number] #### [facility] [address] [place] [address] Neutrophils/100 WBC (Bld) 68.8 % Normal 36.0-75.0 [facility] Comment on above: Performed By: #### 2 [id number] #### [facility] [address] [place] [address] Platelet 304.0 E9/L Normal 150.0-500.0 [facility] Comment on above: Performed By: #### 2 [id number] #### [facility] [address] [place] [address] Platelet mean volume (Bld) [Entitic vol] 8.4 fL Normal 6.4-10.8 [facility] Comment on above: Performed By: #### 2 [id number] #### [facility] [address] [place] [address] RBC (Bld) [#/Vol] 3.7 E12/L Low 4.3-5.9 [facility] Comment on above: Performed By: #### 2 [id number] #### [facility] [address] [place] [address] [place] [address] WBC corrected for nucl RBC Auto (Bld) [#/Vol] 8.5 E9/L Normal 4.0-11.0 [facility] Comment on above: Performed By: #### 2 [id number] #### [facility] [address] [place] [address] CHEMISTRYOrdered By: SYSTEM SYSTEM on 08-09-2024 25-hydroxyvitamin [...] 08-09-2024 Albumin [Mass/Vol] 4.4 g/dL Normal 3.3-5.0 [facility] Comment on above: Performed By: #### 2 [id number] #### [facility] [address] [place] [address] Albumin/Globulin (S) [Mass conc ratio] 1.6 Normal 1.1-2.2 [facility] Comment on above: Performed By: #### 2 [id number] #### [facility] [address] [place] [address] ALP [Catalytic activity/Vol] 52 Int._Unit/L Normal 21-98 [facility] Comment on above: Performed By: #### 2 [id number] #### [facility] [address] [place] [address] ALT No additional P-5'-P [Catalytic activity/Vol] 14 Int._Unit/L Normal 6-46 [facility] Comment on above: Performed By: #### 2 [id number] #### [facility] [address] [place] [address] Anion gap [Moles/Vol] 11 mmol/L Normal 6-16 [facility] Comment on above: Performed By: #### 2 [id number] #### [facility] [address] [place] [address] AST [Catalytic activity/Vol] 18 Int._Unit/L Normal 5-43 [facility] Comment on above: Performed By: #### 2 [id number] #### [facility] [address] [place] [address] Bilirubin [Mass/Vol] 0.9 mg/dL Normal 0.0-1.1 [facility] Comment on above: Performed By: #### 2 [id number] #### [facility] [address] [place] [address] Calcium [Mass/Vol] 8.9 mg/dL Normal 8.9-11.1 [facility] Comment on above: Performed By: #### 2 [id number] #### [facility] [address] [place] [address] Chloride [Moles/Vol] 107 mmol/L Normal 101-111 [facility] Comment on above: Performed By: #### 2 [id number] #### [facility] [address] [place] [address] CO2 [Moles/Vol] 27 mmol/L Normal 21-31 [facility] Comment on above: Performed By: #### 2 [id number] #### [facility] [address] [place] [address] Creatinine [Mass/Vol] 1.1 mg/dL Normal 0.5-1.3 [facility] Comment on above: Performed By: #### 2 [id number] #### [facility] [address] [place] [address] Globulin (S) [Mass/Vol] 2.8 g/dL Normal 1.4-4.0 [facility] Comment on above: Performed By: #### 2 [id number] #### [facility] [address] [place] [address] Glucose [Mass/Vol] 105 mg/dL Normal 55-199 [facility] Comment on above: Performed By: #### 2 [id number] #### [facility] [address] [place] [address] Potassium [Moles/Vol] 4.1 mmol/L Normal 3.5-5.3 [facility] Comment on above: Performed By: #### 2 [id number] #### [facility] [address] [place] [address] Protein [Mass/Vol] 7.2 g/dL Normal 6.0-7.8 [facility] Comment on above: Performed By: #### 2 [id number] #### [facility] [address] [place] [address] Sodium [Moles/Vol] 141 mmol/L Normal 135-145 [facility] Comment on above: Performed By: #### 2 [id number] #### [facility] [address] [place] [address] Urea nitrogen [Mass/Vol] 15 mg/dL Normal 5-21 [facility] Comment on above: Performed By: #### 2 [id number] #### [facility] [address] [place] [address] Urea nitrogen/Creatinine [Mass ratio] 14 No Units Normal 10-20 [facility] Comment on above: Performed By: #### 2 [id number] #### [facility] [address] [place] [address] HEMATOLOGYOrdered By: SYSTEM SYSTEM on 08-09-2024 Basophils/100 [...] 08-09-2024 Cholesterol [Mass/Vol] 208 mg/dL High 120-200 [facility] Comment on above: Performed By: #### 2 [id number] #### [facility] [address] [place] [address] Cholesterol in HDL [Mass/Vol] 64 mg/dL Invalid Interpretation Code [facility] Comment on above: Result Comment: '>= 60 LOW RISK' '<= 40 HIGH RISK' Performed By: #### 2 [id number] #### [facility] [address] [place] [address] Cholesterol in LDL [Mass/Vol] 104 mg/dL Normal <=129 [facility] Comment on above: Performed By: #### 2 [id number] #### [facility] [address] [place] [address] Cholesterol in VLDL [Mass/Vol] 36 mg/dL Normal 7-40 [facility] Comment on above: Performed By: #### 2 [id number] #### [facility] [address] [place] [address] Triglyceride [Mass/Vol] 182 mg/dL High <=149 [facility] Comment on above: Performed By: #### 2 [id number] #### [facility] [address] [place] [address] TSH With T4fr Reflexon 08-09 TSH Qn 2.85 m[IU]/L Normal 0.34-5.60 [facility] Comment on above: Performed By: #### 1 [id number] #### [facility] [address] [place] [address] U MA/Cr Ratioon 08-09-2024 Albumin DL <= 20 mg/L (U) [Mass/Vol] mg/dL Normal 0.0-1.9 [facility] Comment on above: Performed By: #### 1 [id number] #### [facility] [address] [place] [address] Albumin/Creatinine DL <= 20 mg/L (U) [Mass ratio] NOT CALCULATED Invalid Interpretation Code .0-30.0 [facility] Comment on above: Result Comment: 30-3 00 mg/g Cr indicates an increased risk for diabetic nephropathy. >300 mg/g Cr is consistent with clinical nephropathy. Performed By: #### 1 [id number] #### [facility] [address] [place] [address] U Creatinine 127.3 mg/dL Invalid Interpretation Code [facility] Comment on above: Performed By: #### 1 [id number] #### [facility] [address] [place] [address] Vit B12on 08-09-2024 Cobalamin (Vitamin B12) [Mass/Vol] 253 pg/mL Normal 50-1500 [facility] Comment on above: Performed By: #### 2 [id number] #### [facility] [address] [place] [address] Vitamin D 25 Hydroxyon 08-09 25-hydroxyvitamin D3 [Mass/Vol] 36.9 ng/mL Normal 30.0-100.0 [facility] Comment on above: Performed By: #### 5 [id number] #### [facility] [address] [place] [address] eGFRon 08-09-2024 eGFR 53 mL/min/1.73 m2 Low >=59 [facility] Comment on above: Performed By: #### 1 [id number] #### [facility] [address] [place] [address] Ambulatory Visit Summaryon 10-08-2023 Ambulatory Visit Summary Ambulatory Visit Summary [...] Appointments 2023 8:40 AM EST With: Where: [address] [address]- Tuesday 8:45 AM EDT With: Anamaria Chinchilla MD Where: [address] [address]- 2024 11:00 AM EST With: Where: [address] [address]- You Need to Complete the [...] Hypercholesterolemia Hyperlipidemia (more content not included)... Normal [facility] Medicine Office/Clini c Noteon 08-07-2024 Family Medicine [...] Precautions for MERS/COVID-19 : N/A Martha Pereira 07/30/2024 9:48 EST Medicare/Medicaid Summary Chief Complaint [...] Rating Pain Score : 3 Martha Pereira 07/30/2024 9:48 EST Hearing and Vision Screening FT FT Whisper Test Comments : wears hearing aides Vision Screen Comments : wears corrective lens. Martha Dow 07/30/2024 9:48 EST Advance Directive FT Advance Directive : Yes Type of Advance Directive : Living will, Medical durable power of [employer] developer Location of Advance Directive : Family to bring in copy from home Organ Donation Consent : Yes Martha Pereira 07/30/2024 9:48 EST Procedures / Surgeries FT - Procedure History (As Of: 07/30/2024 10:07:32 EST) Anesthesia Minutes: 0 ; Procedure Name: Colonoscopy ; Procedure Minutes: 0 ; Comments: 11/29/2022 12:57 Britany Dee LPN 2013 normal ; Last Reviewed Dt/Tm: 07/30/2024 09:53:53 EST Anesthesia Minutes: 0 ; Procedure Name: Cholecystectomy ; Procedure Minutes: 0 ; Comments: 11/29/2022 12:57 Britany eDe LPN bile duct surgery ; Last Reviewed [...] Pereira: denies use. 05/30/2023 14:07 - Neftaly Wolfe: denies (Last Updated: 07/30/2024 09:55:03 EST by Martha Pereira) Substance Abuse: Never, Previous treatment: None. Comments: 07/30/2024 9:55 - Martha Pereira: denies use. (Last Updated: 07/30/2024 09:55:30 EST by Cook, Martha J) Health Risk Assessment FT HRA little interest [...] Martha Pereira (more content not included)... Normal [facility] Comment on above: Result Comment: [...] Appointments 2023 8:40 AM EST With: Where: [address] [address]- Tuesday 8:45 AM EDT With: Anamaria Chinchilla MD Where: [address] [id number]- 2024 11:00 AM EST With: Where: [address] [address]- You Need to Complete the Following CBC [...] Chronic cough Duration: 7 [facility] [id number] Unchanged amlodipine (amLODIPine 5 mg Tab) See [...] fatty a (more content not included)... Normal [facility] Ambulatory Visit Summary Ambulatory Visit Summary ISAURA [...] Appointments 2023 8:40 AM EST With: Where: [place] [id number]- Tuesday 8:45 AM EDT With: Anamaria Chinchilla MD Where: [address] [address]- 2024 11:00 AM EST With: Where: [address] [address]- You Need to Complete the [...] Chronic cough Duration: 7 Days Pickup at [facility] [id number] Unchanged amlodipine (amLODIPine 5 mg Tab) See [...] fatty a (more content not included)... Normal [facility] Family Medicine Office/Clini c [place] 07-30-2024 Family Medicine Office/Clinic Note Family Medicine [...] humorously by the physician as looking like [place] cheese on X-rays. She uses a bone [...] day(s), # 21 cap(s), Refills(s) 0, [facility] [id number], 162, cm, 07/30/24 10:07:00 EST, Height/Length Dosing, 75.8, kg, 07/30/24 10:07:00 EST, Weight Dosing CBC w/ Auto Diff TSH With T4fr Reflex Vitamin B12 Level Vitamin D 25 Hydroxy 2. Hypercholesterolemia (E78.00: Pure hypercholesterolemia, unspecified) As below. Ordered: benzonatate, 200 mg = 1 cap(s), Oral, TID, X 7 day(s), # 21 cap(s), Refills(s) 0, [facility] [id number], 162, cm, 07/30/24 10:07:00 EST, Height/Length Dosing, 75.8, kg, 07/30/24 10:07:00 EST, Weight Dosing CBC w/ Auto Diff TSH With T4fr Reflex Vitamin B12 Level Vitamin D 25 Hydroxy 3. Hyperlipidemia (E78.5: Hyperlipidemia, unspecified) Continue on a statin as before. Ordered: benzonatate, 200 mg = 1 cap(s), Oral, TID, X 7 day(s), # 21 cap(s), Refills(s) 0, Pharmacy: [facility] [id number], 162, cm, 07/30/24 10:07:00 EST, Height/Length Dosing, [...] day(s), # 21 cap(s), Refills(s) 0, Pharmacy: [facility] [id number], 162, cm, 07/30/24 10:07:00 EST, Height/Length Dosing, 75.8, kg, 07/30/24 10:07:00 EST, Weight Dosing CBC w/ Auto Diff Comprehensive Metab (more content not included)... Normal [facility] Comment on above: Result Comment: Elec tronically Signed By: Anamaria Chinchilla MD\.br\Date and Time Signed: 07/30/24 12:21 EST Pre-Visit Planningon 024 Pre-Visit Planning Pre-Visit Planning From: Benita RN, Daly To: Anamaria Chinchilla MD; Sent: 07/27/2024 10:17:56 EST Subject: Pre-Visit Planning Due Date/Time: 07/27/2024 10:17:00 EST Caller Name: ISAURA HAYDEN; Caller Number: , M Hi Dr. Chinchilla, During a [...] feel free to contact me at extension [phone]. Thank you! Daly Joy, BSN, RN, CCM, CCDS, CCDS-O CDI Operations Director [address] [address] P: [phone] F: [phone] [email or web address] From: Amor SHORT, Anamaria Harvey To: Benita MENJIVAR, Daly; Sent: 07/30/2024 15:17:44 EST Subject: RE: Pre-Visit Planning Caller Name: ISAURA HAYDEN; Caller Number: Adrian , M I could not address this today. Thanks Normal [facility] Family Medicine Office/Clini c Noteon 07-13-2024 [...] in 3-5 days Ordered: Rapid Strep POC 54805 Follow-up No qualifying data available Patient Education Pharyngitis, Cbxl-ji-Nmcn Problem List/Past Medical History Ongoing Age-related osteoporosis [...] Strep POC Result: Negative (07/13/24 11:52:00) Normal [facility] Comment on above: Result Comment: Elec tronically Signed By: VIPUL OBANDO CNP\juaquin\Date and Time Signed: 07/13/24 11:55 EST C [...] Locations R1: This test was performed at: [facility], [address] [place] [address], [address]- , , [facility] Comment on above: Performed By: #### 2 [id number] #### [facility] [address] [place] [address] Ambulatory Visit Summaryon 0 05-07-2024 Ambulatory Visit [...] AM EST With: Anamaria Chinchilla MD Where: [address] [address]- Tuesday 11:00 AM EST With: Where: [address] [place] [address]- Medications What How Much When Instructions Unchanged [...] for choosing us for your care. Normal [facility] Family Medicine Office/Clini c [place] 05-07-2024 Family Medicine [...] day(s), # 14 cap(s), Refills(s) 0, Pharmacy: [facility] [id number], 162, cm, 05/07/24 14:07:00 EDT, Height/Length Dosing, 76, kg, 05/07/24 14:07:00 EDT, Weight Dosing Body Mass Index (BMI) documented 3008F Current tobacco non-user 1036F Depression Screening Negative 3352F E&M of Est. Patient Low 20-29 Min 50077 Influenza immunization status assessed 1030F Medication list [...] Urnls Dip Stick Auto w/o Microscopy POC 72681 2. Non-smoker (Z78.9: Other specified health status) - Please continue to not smoke Ordered: doxycycline, 100 mg = 1 cap(s), Oral, BID, X 7 day(s), # 14 cap(s), Refills(s) 0, Pharmacy: [facility] [id number], 162, cm, 05/07/24 14:07:00 EDT, Height/Length Dosing, 76, kg, 05/07/24 14:07:00 EDT, Weight Dosing Body Mass Index (BMI) documented 3008F Current tobacco non-user 1036F Depression Screening Negative 3352F E&M of Est. Patient Low 20-29 Min 33002 Influenza immunization status assessed 1030F Medication list [...] day(s), # 14 cap(s), Refills(s) 0, Pharmacy: [facility] [id number], 162, cm, 05/07/24 14:07:00 EDT, Height/Length Dosing, 76, kg, 05/07/24 14:07:00 EDT, Weight Dosing Body Mass Index (BMI) documented 3008F Current tobacco non-user 1036F Depression Screening Negative 3352F E&M of Est. Patient Low 20-29 Min 80749 Influenza immunization status assessed 1030F Medication list [...] day(s), # 14 cap(s), Refills(s) 0, Pharmacy: [facility] [id number], 162, cm, 05/07/24 14:07:00 EDT, Height/Length Dosing, 76, kg, 05/07/24 14:07:00 EDT, Weight Dosing Body Mass Index (BMI) documented 3008F Current tobacco non-user 1036F Depression Screening Negative 3352F E&M of Est. Patient Low 20-29 Min 87091 Influenza immunization status assessed 1030F Medication list [...] stage 3a (more content not included)... Normal [facility] Comment on above: Result Comment: Elec tronically Signed By: Amor SHORT, Anamaria Saldivar.br\Date and Time Signed: 05/07/24 14:35 EDT Dexa Scanson 02-08-2024 Dexa Scans [id number]#1.0 0TIFF [facility] Consultation Noteon 02-07-20 Consultation Note [id number]#1.0 0TIFF Normal [facility] - MISCon 02-02-2024 RAD - MISC [id number]#1.0 0TIFF [facility] RAD - MISC [id number]#1.0 0TIFF [facility] Consultation Noteon 01-30-20 Consultation Note [id number]#1.0 0TIFF Normal [facility] Consultation Noteon 12-26-19 Consultation Note [id number]#1.0 0TIFF Normal [facility] RAD - MISCon 12-21-2023 RAD - MISC [id number]#1.0 0TIFF [facility] RAD - MISC [id number]#1.0 0TIFF [facility] Consultation Noteon 12-09-19 Consultation Note [id number]#1.0 0TIFF Normal [facility] Consultation Noteon 11-24-19 Consultation Note [id number]#1.0 0TIFF Normal [facility] Discharge Documentationon Discharge Documentation [id number]#1.0 0TIFF Normal [facility] Cytologyon 11-14-2023 Cytology Normal [facility] Comment on above: Result Comment: [facility] [address] [place] [address] Cytology Consultation Patient Name:ISAURA HAYDEN:1950 (Age: 73)Gender:FTaken:11/14/2023eported:11/16/2023 14:25Physician(s):Nabil Lord M.D. ([phone])Copy To: Rec. #:[id number]: #[id number] Final Cytologic Diagnosis Pelvic washings: No malignant cells identified. rust/11/16/2023 Interpretation performed at [facility], [address] [place] [address], License number: [id number].Electronically Signed Out By Edie Day MD Clinical History Thickened endometrium/ post menopausal bleeding/ cervical stenosis. Gross Description Received was 35mL of clear colorless fluid unfixed labeled as Catracho, pelvic washings . CytoLyt added in lab. Unable to obtain cellblock, ThinPrep made. Source of Specimen Pelvic washings Non TOXICOLOGIST ThinPrep Fee Code(s): 1; 51232, 00222 Surgical Pathologyon 024 Surgical Pathology Normal [facility] Comment on above: Result Comment: [facility] [address] [place] [address] Surgical Pathology Consultation Patient Name:ISAURA HAYDEN:1950 (Age: 73)Gender:FTaken:4Reported:4Physician(s):Nabil Lord M.D. ([phone])Copy To: Rec. #:[id number]: #[id number] Final Pathologic Diagnosis Uterus, cervix, bilateral fallopian tubes, bilateral ovaries, TAHBSO: Cervix with no significant histopathologic abnormality Endometrium with cystic atrophy Myometrium with adenomyosis Bilateral adnexa with no significant histopathologic abnormality Report Electronically Signed Out nsk/11/16/2023Edie Day MD [place] [address], License number: [id number]. Clinical History Thickened endometrium, postmenopausal bleeding, cervical [...] ovary L-N Remainder of endometrium (14, ss, E38-30765, A- K, m6) MONICO/MD kilgore/11/14/2023GR Specimen(s) Received Uterus, cervix, bilateral fallopian tubes, bilateral ovaries Fee Codes(s): 1; 68763 Consultation Noteon 11-10-19 Consultation Note [id number]#1.0 0TIFF Normal [facility] CBC AND AUTO DIFFon 11-09-19 ABSOLUTE BASOPHIL 0.1 X10E9/L Normal 0.0-0.2 [facility] Comment on above: Performed By: #### C BCA, CMP #### [facility] ([id number]) [address], [address] [place] [address] ABSOLUTE NEUTROPHIL 3.1 X10E9/L Normal 1.5-6.6 [facility] Comment on above: Performed By: #### C BCA, CMP #### [facility] ([id number]) [address] [place] [address] Basophils/100 WBC (Bld) 0.9 % Normal [facility] Comment on above: Performed By: #### C BCA, CMP #### [facility] ([id number]) [address], [address] [place] [address] Eosinophils (Bld) [#/Vol] 0.2 10*3/uL Normal 0.0-0.4 [facility] Comment on above: Performed By: #### C REBEKA, CMP #### [facility] ([id number]) [address], [address] [place] [address] Eosinophils/100 WBC (Bld) 4.3 % Normal [facility] Comment on above: Performed By: #### C REBEKA, CMP #### [facility] ([id number]) [address], [address] [place] [address] Erythrocyte distribution width (RBC) [Ratio] 13.1 % Normal 11.5-15.0 [facility] Comment on above: Performed By: #### C REBEKA, CMP #### [facility] ([id number]) [address] [address] [place] [address] Hematocrit (Bld) [Volume fraction] 35.6 % Normal 35-47 [facility] Comment on above: Performed By: #### C BCA, CMP #### [facility] ([id number]) [address], [address] [place] [address] Hemoglobin (Bld) [Mass/Vol] 12.4 g/dL Normal 11.7-15.5 [facility] Comment on above: Performed By: #### C BCA, CMP #### [facility] ([id number]) [address], [address] [place] [address] Lymphocytes (Bld) [#/Vol] 1.7 10*3/uL Normal 1.0-3.5 [facility] Comment on above: Performed By: #### C BCA, CMP #### [facility] ([id number]) [address], [address] [place] [address] Lymphocytes/100 WBC (Bld) 31.2 % Normal [facility] Comment on above: Performed By: #### C BCA, CMP #### [facility] ([id number]) [address], [address] [place] [address] MCH (RBC) [Entitic mass] 33.3 pg Normal 27-34 [facility] Comment on above: Performed By: #### C BCA, CMP #### [facility] ([id number]) [address] [address] [place] [address] MCHC (RBC) [Mass/Vol] 34.7 g/dL Normal 32-36 [facility] Comment on above: Performed By: #### C BCA, CMP #### [facility] ([id number]) [address], [address] [place] [address] MCV (RBC) [Entitic vol] 96 fL Normal 80-100 [facility] Comment on above: Performed By: #### C BCA, CMP #### [facility] ([id number]) [address], [address] [place] [address] Monocytes (Bld) [#/Vol] 0.5 10*3/uL Normal 0-0.9 [facility] Comment on above: Performed By: #### C BCA, CMP #### [facility] ([id number]) [address], [address] [place] [address] Monocytes/100 WBC (Bld) 8.2 % Normal [facility] Comment on above: Performed By: #### C BCA, CMP #### [facility] ([id number]) [address], [address] [place] [address] Neutrophils/100 WBC (Bld) 55.4 % Normal [facility] Comment on above: Performed By: #### C REBEKA, CMP #### [facility] ([id number]) [address] [facility] [address] [place] [address] Platelet mean volume (Bld) [Entitic vol] 8.2 fL Normal 7-12 [facility] Comment on above: Performed By: #### C REBEKA, CMP #### [facility] ([id number]) [address] [address] [facility] [address] [place] [address] Platelets (Bld) [#/Vol] 284 10*3/uL Normal 150-450 [facility] Comment on above: Performed By: #### C REBEKA, CMP #### [facility] ([id number]) [address] [address] [place] [address] RBC COUNT 3.72 X10E12/L Low 3.80-5.20 [facility] Comment on above: Performed By: #### C REBEKA, CMP #### [facility] ([id number]) [address] [address] WBC (Bld) [#/Vol] 5.6 10*3/uL Normal 4.0-11.0 [facility] Comment on above: Performed By: #### C BCA, CMP #### [facility] ([id number]) [address], [address] [address] COMPREHENSIVE METABOLIC PANE Rashi 11-09-2023 Albumin [Mass/Vol] 4.5 g/dL Normal 3.2-5.3 [facility] Comment on above: Performed By: #### C BCA, CMP #### [facility] ([id number]) [address] [address] [place] [address] ALP [Catalytic activity/Vol] 48 U/L Normal 39-130 [facility] Comment on above: Performed By: #### C BCA, CMP #### [facility] ([id number]) [address], [address] [place] [address] ALT [Catalytic activity/Vol] 14 U/L Normal 0-31 [facility] Comment on above: Performed By: #### C BCA, CMP #### [facility] ([id number]) [address], [address] [place] [address] Anion gap [Moles/Vol] 9 mmol/L Normal 5-15 [facility] Comment on above: Performed By: #### C BCA, CMP #### [facility] ([id number]) [address], [address] [place] [address] AST [Catalytic activity/Vol] 20 U/L Normal 0-41 [facility] Comment on above: Performed By: #### C BCA, CMP #### [facility] ([id number]) [address], [address] [place] [address] Bilirubin [Mass/Vol] 0.5 mg/dL Normal 0.3-1.2 [facility] Comment on above: Performed By: #### C BCA, CMP #### [facility] ([id number]) [address], [address] [place] [address] Calcium [Mass/Vol] 9.2 mg/dL Normal 8.5-10.5 [facility] Comment on above: Performed By: #### C BCA, CMP #### [facility] ([id number]) [address], [address] [place] [address] Chloride [Moles/Vol] 106 mmol/L Normal 98-109 [facility] Comment on above: Performed By: #### C BCA, CMP #### [facility] ([id number]) [address], [address] [place] [address] CO2 [Moles/Vol] 28 mmol/L Normal 22-32 [facility] Comment on above: Performed By: #### C BCA, CMP #### [facility] ([id number]) [address], [address] [place] [address] Creatinine [Mass/Vol] 1.17 mg/dL High 0.40-1.00 [facility] Comment on above: Result Comment: METH OD TRACEABLE TO IDMS STANDARD Performed By: #### C BCA, CMP #### [facility] ([id number]) [address], [address] [place] [address] GFR/1.73 sq M.predicted among non-blacks MDRD (S/P/Bld) [Vol rate/Area] 50 mL/min/{1.73_m2} Low >59 [facility] Comment on above: Result Comment: Reported eGFR is based on the CKD-EPI 2020 equation that does not use a race coefficient. Performed By: #### C BCA, CMP #### [facility] ([id number]) [address], [address] [place] [address] Glucose [Mass/Vol] 110 mg/dL High 65-99 [facility] Comment on above: Performed By: #### C BCA, CMP #### [facility] ([id number]) [address] [place] [address] Potassium [Moles/Vol] 4.1 mmol/L Normal 3.5-5.0 [facility] Comment on above: Performed By: #### C BCA, CMP #### [facility] ([id number]) [address] [place] [address] Protein [Mass/Vol] 7.2 g/dL Normal 6.0-8.0 [facility] Comment on above: Performed By: #### C BCA, CMP #### [facility] ([id number]) [address] [place] [address] Sodium [Moles/Vol] 143 mmol/L Normal 134-146 [facility] Comment on above: Performed By: #### C BCA, CMP #### [facility] ([id number]) [address] [place] [address] Urea nitrogen [Mass/Vol] 18 mg/dL Normal 5-27 [facility] Comment on above: Performed By: #### C BCA, CMP #### [facility] ([id number]) [address] [facility], [address] [place] [address] XR CHEST 2 VWSon 11-09-2023 XR CHEST 2 VWS XR CHEST 2 VWS History: Preop testing Exam/Technique: PA and lateral chest Comparison: None Findings: There is no evidence of active pulmonary or pleural disease. Cardiac and mediastinal contours are within normal limits. IMPRESSION: No evidence of active pulmonary disease demonstrated. Finalized by Lewis Lyn MD on 11/09/2023 10:52 AM Normal [facility] Consultation Noteon 10-25-19 Consultation Note [id number]#1.0 0TIFF Normal [facility] Consultation Noteon 10-03-19 Consultation Note [id number]#1.0 0TIFF Normal [facility] RAD - MISCon 10-03-2023 RAD - MIS [id number]#1.0 0TIFF Normal [facility] Consultation Noteon 09-29-19 Consultation Note [id number]#1.0 0TIFF Normal [facility] Consultation Noteon 09-21-19 Consultation Note [id number]#1.0 0TIFF Normal [facility] Dexa Scanson 09-21-2023 Dexa Scans [id number]#1.0 0TIFF Normal [facility] Consultation Noteon 09-12-19 24 Consultation Note [id number]#1.00 TIFF Normal [facility] Patient Logson 09-02-2023 Patient Logs [id number]#1.00 TIFF Normal [facility] Ambulatory Visit Summaryon 0 09-01-2023 [...] AM EST With: Anamaria Chinchilla MD Where: [place] [id number]- \.br\ Medications\.br\ What How Much When Instructions\.br\ [...] for choosing us for your care.\.br\ \.br\ [facility] Consultation Noteon 09-01-19 Consultation Note [id number]#1.0 0TIFF Normal [facility] Family Medicine Office/Clini c Noteon [...] 96.3 fL (05/11/23) Chloride: 108 mmol/L (05/11/23) [place] Absolute: 0.4 E9/L (05/11/23) CO2: 27 mmol/L (05/11/23) [place] Auto: 7.8 % (05/11/23) Creatinine: 1.3 mg/dL [...] Ongoing Ag (more content not included)... Normal [facility] Comment on above: Result Comment: [...] Spices. Seasoni (more content not included)... Normal [facility] Consultation Noteon 08-24-19 Consultation Note [id number]#1.0 0TIFF [facility] RAD - CT Reporton 08-24-2023 RAD - CT Report [id number]#1.0 0TIFF [facility] Operative Reporton Operative Report [id number]#1.0 0TIFF [facility] Patient Correspondenceon Patient Correspondence [id number]#1.0 0TIFF [facility] Provider Letteron 08-12-2023 Provider Letter [address] [place] [address] August 12, 2023 ISAURA HAYDEN [address] [address] : [address] Das, The above patient has been evaluated at your request for preoperative clearance. After assessment of available pertinent labs and diagnostic tests, I feel this patient is medically optimized for surgery. Final discretion of whether the patient is cleared for surgery remains up to the surgeon/anesthesiologi st. Thank you, YISEL Vásquez [facility] Ambulatory Visit Summaryon 1 10-12-2022 Ambulatory Visit [...] AM EST With: Anamaria Chinchilla MD Where: [facility] Normal [address] [place], [place] [id number]- \.br\ Medications\.br\ What How Much When Instructions\.br\ [...] your care.\.br\ \.br\ [facility] Family Medicine Office/Clini c Noteon [...] 06/25/2008 Recorded Normal [facility] Comment on above: Result Comment: Elec tronically Signed By: Amor SHORT, Anamaria E.\.br\Date and Time Signed: 08/11/23 12:57 EST CHEMISTRYOrdered [...] 4.3 mmol/L Normal 3.5 - 5.3 mmol/L [facility] Remisol Protein [Mass/Vol] 7.5 g/dL Normal 6.0 - 7.8 gm/dL [facility] Remisol Sodium [Moles/Vol] 141 mmol/L Normal 135 - 145 mmol/L [facility] Remisol Urea nitrogen [Mass/Vol] 21 mg/dL Normal [...] 5.6 E9/L Normal 4.0 - 11.0 E9/L [facility] HemeAutoSS URINALYSISOrdered By: Dinah murray on 05-11-2023 [...] PM) Normal Negative [facility] UA Auto SS [place].plasma/Lith ium.RBC (Bld) [Mass ratio] 0-3 /HPF Normal 0-3/HPF [facility] UA Auto SS Mucus Ql (Urine sed) 2+ (05/11/23 12:05 PM) Normal [facility] UA Auto SS Nitrite Ql (U) Negative (05/11/23 12:05 PM) Normal Negative [facility] UA Auto SS pH (U) 7.0 *NA* (05/11/23 12:05 PM) Invalid Interpretation Code 5.0 - 9.0 [facility] UA Auto SS Protein (U) [Mass/Vol] Negative (05/11/23 12:05 PM) Normal Negative [facility] UA Auto SS Specific gravity (U) [Rel density] 1.010 *NA* (05/11/23 12:05 PM) Invalid Interpretation Code 1.005 - 1.030 [facility] UA Auto SS UA Spec Desc Clean Catch (05/11/23 12:05 PM) Normal [facility] UA Auto SS Urobilinogen Qn (U) 0.9772815 {Leon'U}/dL Normal 0.0 - 1.0 EU/dL [facility] UA Auto SS WBC Auto Ql (U) 1+ *ABN* (05/11/23 12:05 PM) Invalid Interpretation Code Negative [facility] UA Auto SS WBC LM.HPF (Urine sed) [#/Area] 0-5 /HPF Normal 0-5/HPF [facility] UA Auto SS CULTURE URINEon 07-06-2022 CULTURE URINE Culture Observations : LIGHT GROWTH OF MIXED GENITAL NAN. NO POTENTIAL PATHOGENS SEEN. Normal [facility] Comment on above: Performed By: #### U RCX #### [facility] [address] [place] [address] Dr. Melchor Brock UA (CLEAN/CATCH) MICROSCOPIC IF INDICATEon 07-06-2022 Bilirubin Ql (U) Negative Normal NEGATIVE [facility] Comment on above: Performed By: #### U MICRO, UARMICR #### [facility] [address] [place] [address] Dr. Melchor Brock Clarity (U) CLEAR Normal CLEAR [facility] Comment on above: Performed By: #### U MICRO, UARMICR #### [facility] [address] [place] [address] [address] Melchor Brock Color (U) LT. YELLOW Normal YELLOW [facility] Comment on above: Performed By: #### U MICRO, UARMICR #### [facility] [address] [place] [address] Dr. Melchor Brock Glucose Ql (U) Negative Normal NEGATIVE [facility] Comment on above: Performed By: #### U MICRO, UARMICR #### [facility] [address] [place] [address] [address] Melchor Brock Hemoglobin Ql (U) TRACE-INTACT Abnormal NEGATIVE [facility] Comment on above: Performed By: #### U MICRO, UARMICR #### [facility] [address] [place] [address] Dr. Melchor Brock Ketones Ql (U) Negative Normal NEGATIVE [facility] Comment on above: Performed By: #### U MICRO, UARMICR #### [facility] [address] [place] [address] Dr. Melchor Brock LEUKOCYTES TRACE Abnormal NEGATIVE [facility] Comment on above: Performed By: #### U MICRO, UARMICR #### [facility] [address] [place] [address] Dr. Melchor Brock Nitrite Ql (U) Negative Normal NEGATIVE [facility] Comment on above: Performed By: #### U MICRO, UARMICR #### [facility] [address] [place] [address] Dr. Melchor Brock pH (U) 6.0 [pH] Normal 5-9 [facility] Comment on above: Performed By: #### U MICRO, UARMICR #### [facility] [address] [place] [address] Dr. Melchor Brock SPEC GRAVITY 1.020 Normal 1.005-<=1.025 [facility] Comment on above: Performed By: #### U MICRO, UARMICR #### [facility] [address] [place] [address] Dr. Melchor Brock UA PROTEIN Negative Normal NEGATIVE/ TRACE [facility] Comment on above: Performed By: #### U MICRO, UARMICR #### [facility] [address] [place] [address] [address] Melchor Brock UR MICRO IND INDICATED Normal [facility] Comment on above: Performed By: #### U MICRO, UARMICR #### [facility] [address] [place] [address] [address] Melchor Brock Urobilinogen Qn (U) 0.2 {Leon'U}/dL Normal 0.2 - 1. 0 [facility] Comment on above: Performed By: #### U MICRO, UARMICR #### [facility] [address] [place] [address] [address] Melchor Brock URINE MICROSCOPIC ONLYon BACTERIA NONE SEEN Normal NONE SEEN [facility] Comment on above: Performed By: #### G SHON, LIPID #### [facility] [address] [place] [address] Dr. Melchor Brock Bacteria identified Cx Nom (U) CX ALREADY ORDERED Normal [facility] Comment on above: Performed By: #### G SHON, LIPID #### [facility] [address] [place] [address] Dr. Melchor Brock CAST NONE SEEN Normal NONE SEEN [facility] Comment on above: Performed By: #### G SHON, LIPID #### [facility] [address] [place] [address] Dr. Melchor Brock Crystals LM Nom (Urine sed) NONE SEEN Normal NONE SEEN [facility] Comment on above: Performed By: #### G SHON, LIPID #### [facility] [address] [place] [address] Dr. Melchor Brock Epithelial cells LM Ql (Urine sed) RARE Normal NONE SEEN /RARE [facility] Comment on above: Performed By: #### G SHON, LIPID #### [facility] [address] [place] [address] Dr. Melchor Brock MUCOUS NONE SEEN Normal NONE SEEN [facility] Comment on above: Performed By: #### G SHON, LIPID #### [facility] [address] [place] [address] Dr. Melchor Brock RBC 0-2 Normal 0-2 [facility] Comment on above: Performed By: #### G SHON, LIPID #### [facility] [address] [place] [address] [address] Melchor Brock WBC 0-2 Abnormal NONE SEEN [facility] Comment on above: Performed By: #### G SHON, LIPID #### [facility] [address] [place] [address] [address] Melchor Brock MG MAMM SCREEN 3D SARAHI CADon 03-15-2022 MG MAMM SCREEN 3D SARAHI CAD Patient: ISAURA HAYDEN Exam Date: 03/15/2022 : 1950 Gender:F Ordering : DR FARA BOOKER . Admission #: [id number] Family : Order #: [id number] CLICK HERE TO VIEW EXAM RADIOLOGY REPORT [...] lung cancer at age 72. LOCATION: [facility] BREAST COMPOSITION: Heterogeneously dense,which may obscure [...] M.D. on 03/15/2022 at 11:41 Normal [facility] GLUCOSE BLOODon 02-09-2022 Glucose [Mass/Vol] 99 mg/dL Normal 74-106 [facility] Comment on above: Performed By: #### G SHON, LIPID #### [facility] [address] [place] [address] [address] Melchor Brock LIPID PROFILEon 02-09-2022 CHOL-HDL RATIO NORM SEE BELOW Normal [facility] Comment on above: Result Comment: 3.3 - 4.4 LOW RISK 4.4 - 7.1 AVERAGE RISK 7.1 - 11.0 MODERATE RISK >11.0 HIGH RISK Performed By: #### G SHON, LIPID #### [facility] [address] [place] [address] [address] Melchor Brock Cholesterol [Mass/Vol] 202 mg/dL Critically high <=200 [facility] Comment on above: Performed By: #### G SHON, LIPID #### [facility] [address] [place] [address] [address] Melchor Brock Cholesterol in HDL [Mass/Vol] 56 mg/dL Normal 40-60 [facility] Comment on above: Performed By: #### G SHON, LIPID #### [facility] [address] [place] [address] [address] Melchor Brock Cholesterol in LDL [Mass/Vol] 112.6 mg/dL Normal [facility] Comment on above: Performed By: #### G SHON, LIPID #### [facility] [address] [place] [address] [address] Melchor Brock Cholesterol.total/C holesterol in HDL [Mass ratio] 3.6 {ratio} Normal [facility] Comment on above: Performed By: #### G SHON, LIPID #### [facility] [address] [place] [address] [address] Melchor Brock HDL NORMAL > or = 60 mg/dl - LO W CARDIOVASCULAR RISK <40 mg/dl - HIGH CARDIOVASCULAR RISK Normal [facility] Comment on above: Performed By: #### G SHON, LIPID #### [facility] [address] [place] [address] [address] Melchor Brock LDL CALC NORMAL SEE BELOW Normal [facility] Comment on above: Result Comment: <100 mg/dl OPTIMAL 100 - 129 mg/dl NEAR OR ABOVE OPTIMAL 130 - 159 mg/dl BORDERLINE HIGH 160 - 189 mg/dl HIGH >190 mg/dl VERY HIGH Performed By: #### G SHON, LIPID #### [facility] [address] [place] [address] [address] Melchor Brock Triglyceride [Mass/Vol] 167 mg/dL Critically high <=150 [facility] Comment on above: Performed By: #### G SHON, LIPID #### [facility] [address] [place] [address] [address] Melchor Brock VLDL CALC 33.4 mg/dL Normal [facility] Comment on above: Performed By: #### G SHON, LIPID #### [facility] [address] [place] [address] [address] Melchor Brock LIPID PROFILEon 11-05-2021 CHOL-HDL RATIO NORM SEE BELOW Normal [facility] Comment on above: Result Comment: 3.3 - 4.4 LOW RISK 4.4 - 7.1 AVERAGE RISK 7.1 - 11.0 MODERATE RISK >11.0 HIGH RISK Performed By: #### L IPID, BMP #### [facility] [address] [place] [address] [address] Melchor Brock Cholesterol [Mass/Vol] 244 mg/dL Critically high <=200 [facility] Comment on above: Performed By: #### L IPID, BMP #### [facility] [address] [place] [address] [address] Melchor Brock Cholesterol in HDL [Mass/Vol] 60 mg/dL Normal 40-60 [facility] Comment on above: Performed By: #### L IPID, BMP #### [facility] [address] [place] [address] [address] Melchor Brock Cholesterol in LDL [Mass/Vol] 158.4 mg/dL Normal [facility] Comment on above: Performed By: #### L IPID, BMP #### [facility] [address] [place] [address] [address] Melchor Brock Cholesterol.total/C holesterol in HDL [Mass ratio] 4.1 {ratio} Normal [facility] Comment on above: Performed By: #### L IPID, BMP #### [facility] [address] [place] [address] [address] Melchor Brock HDL NORMAL > or = 60 mg/dl - LO W CARDIOVASCULAR RISK <40 mg/dl - HIGH CARDIOVASCULAR RISK Normal [facility] Comment on above: Performed By: #### L IPID, BMP #### [facility] [address] [place] [address] Dr. Melchor Brock LDL CALC NORMAL SEE BELOW Normal [facility] Comment on above: Result Comment: <100 mg/dl OPTIMAL 100 - 129 mg/dl NEAR OR ABOVE OPTIMAL 130 - 159 mg/dl BORDERLINE HIGH 160 - 189 mg/dl HIGH >190 mg/dl VERY HIGH Performed By: #### L IPID, BMP #### [facility] [address] [place] [address] Dr. Melchor Brock Triglyceride [Mass/Vol] 128 mg/dL Normal <=150 [facility] Comment on above: Performed By: #### L IPID, BMP #### [facility] [address] [place] [address] Dr. Melchor Brock VLDL CALC 25.6 mg/dL Normal [facility] Comment on above: Performed By: #### L IPID, BMP #### [facility] [address] [place] [address] Dr. Melchor rBock PROF CHEM 8 (BAS METB)on Anion gap [Moles/Vol] 10.7 mmol/L Normal [facility] Comment on above: Performed By: #### L IPID, BMP #### [facility] [address] [place] [address] Dr. Melchor Brock Calcium [Mass/Vol] 7.8 mg/dL Critically low 8.4-10.2 [facility] Comment on above: Performed By: #### L IPID, BMP #### [facility] [address] [place] [address] Dr. Melchor Brock Chloride [Moles/Vol] 103 mmol/L Normal 98-107 [facility] Comment on above: Performed By: #### L IPID, BMP #### [facility] [address] [place] [address] Dr. Melchor Brock CO2 [Moles/Vol] 28.4 mmol/L Normal 22.0-30.0 [facility] Comment on above: Performed By: #### L IPID, BMP #### [facility] [address] [address] [address] Melchor Brock Creatinine [Mass/Vol] 1.05 mg/dL Critically high 0.52-1.04 [facility] Comment on above: Performed By: #### L IPID, BMP #### [facility] [address] [address] [address] Melchor Brock EGFR-AF SPANISH >60 Normal >=60 [facility] Comment on above: Performed By: #### L IPID, BMP #### [facility] [address] [address] [address] Melchor Brock EGFR-NON AF SPANISH 52 mL/min/1.73m2 Critically low >=60 [facility] Comment on above: Performed By: #### L IPID, BMP #### [facility] [address] [address] [address] Melchor Brock Glucose [Mass/Vol] 98 mg/dL Normal 74-106 [facility] Comment on above: Performed By: #### L IPID, BMP #### [facility] [address] [address] [address] Melchor Borck Potassium [Moles/Vol] 4.1 mmol/L Normal 3.4-5.0 [facility] Comment on above: Performed By: #### L IPID, BMP #### [facility] [address] [address] [address] Melchor Brock Sodium [Moles/Vol] 138 mmol/L Normal 137-145 [facility] Comment on above: Performed By: #### L IPID, BMP #### [facility] [address] [address] [address] Melchor Brock Urea nitrogen [Mass/Vol] 15.0 mg/dL Normal 7.0-17.0 [facility] Comment on above: Performed By: #### L IPID, BMP #### [facility] [address] [address] [address] Melchor Brock Urea nitrogen/Creatinine [Mass ratio] 14.3 mg/mg Normal [facility] Comment on above: Performed By: #### L IPID, BMP #### [facility] [address] [address] [address] Melchor Brock ECHOCARDIO M/2D COMPLETEon 0 10-05-2021 ECHOCARDIO M/2D COMPLETE Patient: ISAURA HAYDEN Exam Date: 10/05/2021 : 1950 Gender:F Ordering : DR ANJELICA GAMBINO . Admission #: [id number] Family : Order #: [id number] CLICK HERE TO VIEW EXAM ECHOCARDIOGRAM REPORT [...] Area(A4C): 20.70 cm2 Left Atrium Systolic Volume(A2C): 33129 mm3 Left Atrium Systolic Volume(A4C): 54281 mm3 Mitral Valve MV E to A Ratio: 1.10 Deceleration [place]: 7410 mm/s2 Mitral Valve A-Wave Peak Velocity: [...] Coy Dove M.D. on 10/06/2021 at 08:32 [facility] XR DEXA BONE DENSITYon 09-18 XR [...] by: KVNG TILLMAN Date: 2021-09-18 10:56 Normal [facility] DEXA BONE DENSITY AXIAL SKEL ETONon [...] necksInterpreted by:ARLEY Valenciaigned by:Lora Mondragon MD09/12/18Final result [facility] DIGITAL SCREEN BILATERAL on 09-12-2017 LOMA [...] NEGATIVE)Interpreted by:ARLEY Valenciaigned by:Lora Mondragon MD09/12/18Final result [facility] Vital Signs Date Time Vital Sign Value Performing Clinician Facility 08-28-2024 09:11-0500 Body mass index (BMI) [Ratio] 29.01 kg/m2 [facility] Work Phone: [facility] 08-28-2024 09:11-0500 Body weight 76.66 kg [facility] Work Phone: [facility] 08-28-2024 09:11-0500 Diastolic blood pressure 70 mm[Hg] [facility] Work Phone: [facility] 08-28-2024 09:11-0500 Systolic blood pressure 120 mm[Hg] Bentley Das DO Work Phone: [facility] 12-27-2023 10:45-0400 Body height 162.6 cm Mary Pennington PA Work Phone: [facility] 12-27-2023 10:45-0400 Body mass index (BMI) [Ratio] 28.65 kg/m2 Mary Pennington PA Work Phone: [facility] 12-27-2023 10:45-0400 Body temperature 97.81 [degF] Mary Pennington PA Work Phone: [facility] 12-27-2023 10:45-0400 Body weight 75.75 kg [facility] 12-27-2023 10:45-0400 Diastolic blood pressure 71 mm[Hg] Mary Pennington PA Work Phone: [facility] 12-27-2023 10:45-0400 Heart rate 57 /min Mary Pennington PA Work Phone: [facility] 12-27-2023 10:45-0400 Respiratory rate 16 /min Mary Pennington PA Work Phone: [facility] 12-27-2023 10:45-0400 SaO2% (BldA) [Mass fraction] 99 % Mary Pennington PA Work Phone: [facility] 12-27-2023 10:45-0400 Systolic blood pressure 148 mm[Hg] Mary [facility]ton [facility] 11-29-2023 10:41-0400 Body height 162.6 cm Mray Pennington PA [facility] 11-29-2023 10:41-0400 Body mass index (BMI) [Ratio] 28.48 kg/m2 [facility] 11-29-2023 10:41-0400 Body temperature 97.81 [degF] Mary Sigalane PA [facility] 11-29-2023 10:41-0400 Body weight 75.3 kg Mary Sigalane PA [facility] 11-29-2023 10:41-0400 Diastolic blood pressure 71 mm[Hg] Mary Sigalane PA [facility] 11-29-2023 10:41-0400 Heart rate 57 /min Mary Pennington PA [facility] 11-29-2023 10:41-0400 Respiratory rate 16 /min Mary Sigalane PA [facility] 11-29-2023 10:41-0400 SaO2% (BldA) [Mass fraction] 100 % Mary Sigalane PA Work Phone: [facility] [employer] [facility] 11-29-2023 10:41-0400 Systolic blood pressure 142 mm[Hg] Mary Sigalane PA Work Phone: [facility] [employer] [facility] 11-07-2023 10:32-0400 Body height 162.6 cm [facility] [employer] [facility] 11-07-2023 10:32-0400 Body mass index (BMI) [Ratio] 28.15 kg/m2 [facility] [employer] [facility] 11-07-2023 10:32-0400 Body weight 74.39 kg [facility] [employer] [facility] 10-26-2023 14:38-0500 Body temperature 98.29 [degF] Nabil Lord MD Work Phone: [facility] [employer] [facility] 10-26-2023 14:38-0500 Diastolic blood pressure 90 mm[Hg] Nabil Lord MD Work Phone: [facility] [employer] [facility] 10-26-2023 14:38-0500 Heart rate 67 /min Nabil Lord MD Work Phone: [facility] 10-26-2023 14:38-0500 SaO2% (BldA) [Mass fraction] 98 % Nabil Lord MD Work Phone: [facility] 10-26-2023 14:38-0500 Systolic blood pressure 158 mm[Hg] Nabil Lord MD Work Phone: [facility] 10-26-2023 14:35-0500 Body mass index (BMI) [Ratio] 29.18 kg/m2 Nabil Lord MD Work Phone: [facility] 10-26-2023 14:35-0500 Body weight 77.11 kg Nabil Lord MD Work Phone: [facility] Encounters Encounter Date Encounter Type Care Provider Facility Start: 08-01-2025 ambulatory MD Anamaria Chinchilla Facil ity:[facility] [place] [facility] Start: 01-28-2025 ambulatory MD Anamaria Chinchilla Facil ity:[facility] [place] [facility] Start: 09-17-2024 End: 09-17-2024 ambulatory Violet Lauren Facility: [facility] [place] [facility] Start: 09-11-2024 End: 09-11-2024 ambulatory Kushal Keith Facility:[facility] Start: 09-10-2024 End: 09-10-2024 ambulatory Anamaria Chinchilla Facility: [facility] [place] Start: 08-28-2024 End: 08-28-2024 Bamboo flowsheet Bentley [...] Start: 08-27-2024 End: 08-27-2024 ambulatory Anamaria Chinchilla Facility:[facility] [place] Start: 08-09-2024 End: 08-09-2024 Lab Drop off Anamaria Chinchilla [facility] Start: 08-09-2024 End: 08-09-2024 ambulatory MD Anamaria Chinchilla Facility:[facility] Start: 07-30-2024 End: 07-30-2024 ambulatory MD Anamaria Chinchilla Facility:[facility] [place] Start: 07-30-2024 End: 07-30-2024 ambulatory MD Anamaria Chinchilla Facility:[facility] [place] Start: 07-13-2024 End: 07-13-2024 ambulatory VIPUL Marlene OBANDO Facility: [facility] [place] Start: 05-07-2024 End: 05-07-2024 Lab Drop off Anamaria Chinchilla [facility] Start: 05-07-2024 End: 05-07-2024 ambulatory MD Anamaria Chinchilla Facility:[facility] Start: 12-27-2023 End: 12-27-2023 ambulatory [facility] Start: 12-27-2023 End: 12-27-2023 Postop follow up visit related to original px Mary GOMEZ Work Phone: Lur[facility] Rosado [facility] - [facility] Oncology Comment on above: Encounter for postop erative care (Primary Dx) Start: 11-29-2023 End: 11-29-2023 ambulatory [facility] Start: 11-29-2023 End: 11-29-2023 Postop follow up visit related to original px Mary Pennington PA Work Phone: [facility] Comment on above: Encounter for postop erative care (Primary Dx) Start: 11-14-2023 End: 11-14-2023 Evaluation and management of inpatient [facility] Start: 11-14-2023 End: 11-14-2023 Evaluation and management of inpatient [facility] Tobi CAROLYN [facility] Start: 11-09-2023 Encounter for other preprocedural examination [facility] Tobi [facility] Start: 11-09-2023 End: 11-10-2023 ambulatory [facility] Start: 11-07-2023 End: 11-07-2023 Evaluation and management of inpatient PENNOCK Rubio GAMBINO [facility] Start: 11-07-2023 End: 11-07-2023 Admission to [facility] Phone Call Provider 2 [facility] On [facility] Start: 10-28-2023 Patient encounter status Nabil Lord MD Work Phone: [facility] Start: 10-28-2023 Telephone encounter Nabil andersen MD Work Phone: [facility] Start: 10-26-2023 End: 10-26-2023 ambulatory NABIL Britton CAROLYN [facility] Start: 10-26-2023 End: 10-26-2023 Office outpatient new 60 minutes Nabil Lord MD Work Phone: [facility] Comment on above: Endometrial thickeni ng on ultrasound (Primary Dx); Postmenopausal bleeding Start: 10-19-2023 ambulatory PENNOCK Rubio [facility] Start: 10-19-2023 Telephone encounter Linette Ga RN [facility] Start: 10-11-2023 End: 10-11-2023 ambulatory BENTLEY DAS Not Available Start: 09-01-2023 End: 09-01-2023 ambulatory VIPUL OBANDO Facility:[facility] Start: 08-11-2023 End: 08-11-2023 ambulatory MD Anamaria Chinchilla [facility] Start: 05-11-2023 End: 05-11-2023 Lab Drop off Violet Lauren [facility] Start: 08-03-2022 End: 08-04-[address] ANJELICA [...] Start: 09-12-2017 End: 09-13-2017 Ambulatory FARA [facility] Procedures Date Procedure Procedure Detail Performing Clinician [...] EST Office Visit [facility] [address] [place] [id number] Bentley Das DO [address] [place] [address] [facility] Start: 12-26-2024 Adult BMI Screening Adult BMI Screen ing [facility] Start: 11-28-2024 Adult BMI Screening Adult BMI Screen ing [facility] Start: 11-13-2024 Tobacco Screening Tobacco Screening [facility] Start: 10-25-2024 Adult BMI Screening Adult BMI Screen ing [facility] Start: 10-25-2024 Tobacco Screening Tobacco Screening [facility] Start: 08-28-2024 End: 08-28-2025 DXA Skeletal system Views for bone density DEXA bone density Imaging Routine Postmenopausal state Expected: 08/28/2024 (Approximate), Expires: 08/28/2025 [facility] Comment on above: Expected: 08/28/2024 (Approximate), Expires: 08/28/2025 Start: 08-28-2024 End: 10-26-2025 MG Breast - bilateral Screening Bilateral screening mammogram Imaging Routine Breast cancer screening by mammogram Expected: 08/28/2024, Expires: 10/26/2025 [facility] Work Phone: Comment on above: Expected: 08/28/2024 , Expires: 10/26/2025 Start: 08-28-2024 End: 08-28-2024 Patient encounter procedure 08/28/2024 9:00 AM EST Office Visit [facility] [address] [place] [id number] Bentley Das, [address] [place] [address] Arrived [facility] Comment on above: Arrived Start: 04-22-2024 Influenza vaccination Influenza Vacc ine [facility] Start: 12-27-2023 End: 12-27-2023 Patient encounter procedure 12/27/2023 11:00 AM EDT Office Visit Lurdes Mckenzie [facility] [address] [place] [address] Mary Pennington PA [address] [place] [address] Lurdes Mckenzie [facility] Start: 11-29-2023 End: 11-29-2023 Patient encounter procedure 11/29/2023 10:30 AM EDT Office Visit Lurdes Mckenzie [facility] [address] [place] [address] Mary Pennington PA [address] [place], [place] [id number] Lurdes Mckenzie [facility] Start: 11-14-2023 End: 11-14-2023 Admission to same day surgery center 11/14/2023 11:00 AM EDT - 11/14/2023 1:00 PM EDT Surgery [facility] Surgery [address] [place] [id number] Nabil Lord MD [address] [facility] [place] [address] DAVINCI HYSTERECTOMY SALPINGO OOPHORECTOMY(WITH FROZEN SECTION AND POSSIBLE STAGING) [facility] Surgery Comment on above: DAVINCI HYSTERECTOMY SALPINGO OOPHORECTOMY(WITH FROZEN SECTION AND POSSIBLE STAGING) Start: 11-14-2023 End: 11-14-2023 DAVINCI HYSTERECTOMY SALPINGO OOPHORECTOMY DAV[facility]CI HYSTERECTOMY SALPINGO OOPHORECTOMY THICKENED ENDOMETRUM/POST MENOPAUSAL BLEEDING/CERVICAL STENOSIS 11/14/2023 11:00 AM EDT [facility] Start: 11-14-2023 Subsequent hospital visit by physician 11/14/2023 11:00 AM EDT Hospital Encounter [facility] Surgery [address] [place] [address] Nabil Lord MD [address] [facility] [place], [place] [id number] [facility] Surgery Start: 11-07-2023 End: 11-07-2023 Admission to establishment 11/07/2023 10:30 AM EDT Support Visit [facility] On [address] [place] [address] [facility] On [facility] Start: 10-28-2023 End: 10-27-2024 XR Chest PA and Lateral X-ray chest 2 views Imaging Routine Preop testing Expected: 10/28/2023, Expires: 10/27/2024 [facility] Comment on above: Expected: 10/28/2023 , Expires: 10/27/2024 Start: 10-26-2023 End: 10-26-2023 Patient encounter procedure 10/26/2023 3:00 PM EST Office Visit [facility] Gy[facility] Oncology [address] [place] [address] [address] [place] [phone] Nabil Lord MD [address] [place] [address], [address] [place] [address] [facility] Start: 04-22-2023 Influenza vaccination Influenza Vacc ine [facility] Start: 08-04-2022 Adult BMI Screening Adult BMI Screen ing [facility] Start: 2017 Fall Risk Screening Fall Risk Screen ing [facility] Start: 2002 Administration of varicella zoster vaccine Zoster (Shingles) Vaccine (1 of 2) [facility] Start: 1971 DTaP,Tdap and Td Vaccines (1 - Tdap) DTaP,Tdap and Td Vaccines (1 - Tdap) [facility] Start: 1970 Adult BMI Follow Up Plan Adult BMI F ollow Up Plan [facility] Start: 1964 Depression Screening Depression Scre ening [facility] Start: 1964 Tobacco Screening Tobacco Screening [facility] Start: 1952 Medicare Annual Well ness Visit Medicare Annual Wellness Visit [facility] End: 10-27-2024 CBC W Auto Differential panel - Blood CBC with auto diff Lab Routine Preop testing 1 Occurrences starting 10/28/2023 until 10/27/[facility]: Comment on above: 1 Occurrences starti ng 10/28/2023 until 10/27/2024 End: 10-27-2024 Comprehensive metabolic 2000 panel - Serum or Plasma Comprehensive metabolic panel Lab Routine Preop testing 1 Occurrences starting 10/28/2023 until 10/27/2024 [facility] [employer] [facility] Comment on above: 1 Occurrences starti ng 10/28/2023 until 10/27/2024 End: 10-27-2024 ECG 12 lead ECG 12 lead ECG Routine Preop testing 1 Occurrences starting 10/28/2023 until 10/27/2024 [facility] Comment on above: 1 Occurrences starti ng 10/28/2023 until 10/27/2024 Immunizations Immunization Date Immunization Notes Care Provider [facility] 07-24-2019 pneumococcal polysaccharide vaccine, 23 valent Anamaria Chinchilla [facility] 07-21-2018 pneumococcal conjuga te vaccine, 13 valent Anamaria Chinchilla [facility] 11-08-2016 hepatitis A vaccine, adult dosage Anamaria Chinchilla [facility] 05-05-2016 hepatitis A vaccine, adult dosage Anamaria Chinchilla [facility] 07-12-2014 influenza, injectabl e, quadrivalent, preservative free Bentley Pippa DO Work Phone: [facility] 07-12-2014 influenza virus vaccine, unspecified formulation Linette Ga RN [facility] 06-05-2013 influenza virus vaccine, unspecified formulation Anamaria Amor [facility] 06-05-2013 influenza, seasonal, injectable Bentley Pippa DO Work Phone: [facility] 05-18-2012 influenza virus vaccine, unspecified formulation Anamaria Amor [facility] 05-18-2012 influenza, seasonal, injectable Bentley Pippa DO Work Phone: [facility] 05-17-2011 influenza virus vaccine, unspecified formulation Anamaria Chinchilla [facility] 05-17-2011 influenza, seasonal, injectable Bentley Pippa DO Work Phone: [facility] 06-25-2008 pneumococcal polysaccharide vaccine, 23 valent Anamaria Chinchilla [facility] NEGATED: Highlighted row has not occurred!07-30-2024 influenza virus vaccine, unspecified formulation Anamaria Chinchilla [facility] NEGATED: Highlighted row has not occurred!05-30-2023 influenza virus vaccine, unspecified formulation Anamaria Chinchilla [facility] NEGATED: Highlighted row has not occurred!12-01-2022 SARS-CoV-2 mRNA (tozinameran 5y-11y) vaccine Violet Lauren [facility] Payers Date Payer Category Payer Medicare (Managed Care) KELLY SANDERS [id number] 2017 Medicare [id number] [id number]. [id number] 2017 Unknown [id number]. 1.13.424.2. 7.3.740807.315 2017 Unknown [id number] 2014 Medicare [id number] 1959 Unknown [id number] 1952 Unknown [id number] 2.16.840.1.942023.3.579.2. 593 1952 Unknown [id number] 2.16.840.1.182243.3.579.2. 593 1952 Unknown [id number] 2.16.840.1.821692.3.579.2. 593 1952 Unknown [id number] 2.16.840.1.493310.3.579.2. 593 1952 Unknown [id number] 2.16.840.1.380158.3.579.2. 593 1952 Unknown [id number] 2.16.840.1.492899.3.579.2. 593 1952 Unknown [id number] 2.16.840.1.776263.3.579.2. 593 1952 Unknown [id number] 2.16.840.1.912768.3.579.2. 593 1952 Unknown [id number] 2.16.840.1.663950.3.579.2. 1286 1952 Unknown [id number] 2.16.840.1.623430.3.579.2. 1286 1952 Unknown [id number] 2.16.840.1.283232.3.579.2. 1286 1952 Unknown [id number] 2.16.840.1.455928.3.579.2. 1286 1952 Unknown [id number] 2.16.840.1.573900.3.579.2. 1286 1952 Unknown [id number] 2.16.840.1.100208.3.579.2. 1286 1952 Unknown [id number] 2.16.840.1.996772.3.579.2. 1286 1952 Unknown [id number] 2.16.840.1.040731.3.579.2. 1286 1952 Unknown [id number] 2.16.840.1.256865.3.579.2. 1286 1952 Unknown [id number] 2.16.840.1.835054.3.579.2. 1286 1952 Unknown [id number] 2.16.840.1.042430.3.579.2. 1286 1952 Unknown [id number] 2.16.840.1.593993.3.579.2. 727 1952 Unknown [id number] 2.16.840.1.972502.3.579.2. 727 1952 Unknown [id number] 2.16.840.1.330930.3.579.2. 727 1952 Unknown [id number] 2.16.840.1.201813.3.579.2. 727 1952 Unknown [id number] 2.16.840.1.088462.3.579.2. 727 1952 Unknown [id number] 2.16.840.1.179523.3.579.2. 727 1952 Unknown [id number] 2.16.840.1.119470.3.579.2. 727 1952 Unknown [id number] 2.16.840.1.817122.3.579.2. 727 1952 Unknown [id number] 2.16.840.1.283618.3.579.2. 727 1952 Unknown [id number] 2.16.840.1.352216.3.579.2. 727 1952 Unknown [id number] 2.16.840.1.387888.3.579.2. 727 1952 Unknown [id number] 2.16.840.1.536254.3.579.2. 1259 1952 Unknown [id number] 2.16.840.1.903804.3.579.2. 1259 1952 Unknown [id number] 2.16.840.1.126651.3.579.2. 196 1952 Unknown [id number] 2.16.840.1.925695.3.579.2. 727 1952 Unknown [id number] 2.16.840.1.063068.3.579.2. 727 1952 Unknown [id number] 2.16.840.1.687632.3.579.2. 727 Social History Date Type Detail Facility Start: 05-11-2023 End: 11-07-2023 Tobacco smoking status Never smoked tobacco (finding) [facility] Comment on above: denies denies use. Tobacco smoking status Never [facility] Comment on above: denies Start: 01-12-2018 End: 10-02-2020 Sex Assigned At Female [facility] Start: 01-12-2018 End: 11-07-2023 Tobacco use and exposure Smokeless tobacco non-user [facility] Start: 01-12-2018 End: 11-14-2023 Alcohol intake Current drinker of alcohol (finding) [facility] Start: 01-12-2018 End: 10-02-2020 Alcohol intake [facility] Start: 1950 Sex Assigned At Not on file [facility] Start: 1950 Sex Assigned At Female P [facility] Start: 10-24-2023 Gender identity Identifies as female gender (finding) [facility] History of tobacco use Passive smoker [facility] Clinical Notes 08-05-2022 to 08-28-2024 Maryanne Mancia LPN - 08/28/2024 9:00 AM JASON Wasserman - 12/27/2023 11:00 AM JASON Pineda - 11/29/2023 10:30 AM EDTTelephone Encounter - Raj Argueta - 10/28/2023 11:19 AM EST Note Date & Type Note Facility 08-28-2024 [...] Daily aspirin 81 mg, Every other day Sfkrlbf-Qtfchmzvqe-Fjhqfue D (VITAMIN D3/CALCIUM/PHOSPHORUS PO) 1 each, Daily Denosumab (PROLIA SC) 1 Units, Every 6 months Durysta 10 mcg, As needed losartan (COZAAR) 100 mg, Daily [place]-3 500 mg rosuvastatin (CRESTOR) 20 mg ALLERGIES Allergies Allergen Reactions Hydromorphone Unknown PROBLEMS Active Ambulatory Problems Diagnosis Date Noted Age-related osteoporosis without current pathological fracture ([facility]) 01/31/2023 Arthritis 12/27/2016 Hypercholesterolemia ([facility]) 12/27/2016 Hypertension (CMS/[facility]) 01/31/2023 Iron deficiency anemia 12/27/2016 TIA (transient ischemic attack) 01/31/2023 History of colon polyps 02/01/2023 Hyperlipidemia ([facility]) 02/23/2023 Resolved Ambulatory Problems Diagnosis Date Noted No Resolved Ambulatory Problems Past Medical History: Diagnosis Date Bronchitis Capillary angioma Cataracts, bilateral Chicken pox Family history of cancer Gallstone pancreatitis 2017 Glaucoma ([facility]) Hemorrhoids 2013 High blood pressure ([facility]/HCC) High cholesterol (CMS/HCC) Measles Mumps Osteoporosis ([facility]) Pneumonia Stress fracture Tonsillitis Tubular adenoma 2013 HISTORY PAST MEDICAL HISTORY SOCIAL HISTORY Past Medical History: Diagnosis Date Arthritis Bronchitis Capillary angioma Cataracts, bilateral Chicken pox Family history of cancer Gallstone pancreatitis 2017 Glaucoma ([facility]) Hemorrhoids 2013 High blood pressure (CMS/[facility]) High cholesterol (CMS/HCC) Measles Mumps Osteoporosis (CMS/[facility]) Pneumonia Stress fracture Tonsillitis Tubular adenoma 2013 [...] Past Surgical History: Procedure Laterality Date CHOLECYSTECTOMY 2016 COLONOSCOPY 2012 tubular adenoma/colon polyp COLONOSCOPY 02/16/2023 CYSTOCELE REPAIR [...] nursing note reviewed. Exam conducted with a equipment mechanic specialist present. Vitals: Estimated body mass index is [...] Bentley Das DO documented in this encounter [facility] 08-09-2024 Note Nurse Consultation N ote [...] Given Postpone due to refusal SARS-CoV-2 mRNA (topegeran 5y-11y) vac - Not Given Postpone due to refusal pneumococcal 23-valent vaccine 07/24/2019 Recorded pneumococcal 13-valent vaccine 07/21/2018 Recorded hepatitis A adult vaccine 11/08/2016 Recorded hepatitis A adult vaccine 05/05/2016 Recorded influenza virus vaccine, inactivated 07/12/2014 Recorded influenza virus vaccine, inactivated 06/05/2013 Recorded influenza virus vaccine, inactivated 05/18/2012 Recorded influenza virus vaccine, inactivated 05/17/2011 Recorded pneumococcal 23-valent vaccine 06/25/2008 Recorded [facility] 07-30-2024 Note Patient Education Cardiovascular Hypertension, [...] Keep all follow-up visits. Medicines ??? Take dfro-ltc-hlkirpl and prescription medicines only as told by [...] Hypertension is a (more content not included)... [facility] 07-13-2024 Note Patient Education Infectious Disease [...] these instructions at home: Medicines ??? Take xogg-kmo-mwlwzrr and prescription medicines only as told by [...] and water are not available, use hand motorcycle tester. ??? Do not touch your eyes, nose, [...] provider. Document Revised: 11/04/2021 Document Reviewed: 11/04/2021 [employer] Patient Education ? 2023 IMT. [facility] 12-27-2023 History of Presen t illness Narrative Subjective: [...] 01/12/2018 Performed by Nitesh Littlejohn MD at [facility] ROBOTIC ASSISTED HYSTERECTOMY, BILATERAL SALPINGO OOPHORECTOMY, PELVIC WASHINGS Bilateral 11/14/2023 Performed by Nabil Lord MD at [facility] SURGERY HEMORROIDECTOMY SKIN BIOPSY Right 2017 thigh [...] Hx Social History Socioeconomic History Marital status: Tobacco Use Smoking status: Never Passive exposure: Past Smokeless tobacco: Never Vaping Use Vaping status: Never Used Substance and Sexual Activity Alcohol use: Yes Alcohol/week: 7.0 standard drinks of alcohol Types: 7 Glasses of wine per week Drug use: No Sexual activity: Yes Partners: Male control/protection: None Social Determinants of Health Food Insecurity: No Food Insecurity (11/07/2023) Hunger Screening Food Insecurity - Worry: Never True Food Insecurity - Inability: Never True Received from [facility] [place] Safety & Environment Review of Symptoms: Pertinent items are noted in HPI. Objective: BP 148/71 Pulse 57 Temp 36.6 C (97.8 F) (Oral) Resp 16 Ht 162.6 cm (5' 4.02 ) Wt 75.8 kg (167 lb) SpO2 99% BMI 28.65 kg/m ECO- Asymptomatic General appearance: alert, appears stated age and cooperative Head: Normocephalic, without obvious abnormality, atraumatic Lungs: clear to auscultation bilaterally Heart: regular rate and rhythm, S1, S2 normal, no murmur, click, rub or gallop Abdomen: soft, nontender, 5 laparoscopic incisions c/d/I without evidence of infection Pelvic exam: VULVA: normal appearing vulva with no masses, tenderness or lesions, VAGINA: normal appearing vagina with normal color and discharge, no lesions, CERVIX: surgically absent, UTERUS: surgically absent, vaginal cuff well healed Extremities: extremities normal, atraumatic, no cyanosis or [...] Iron deficiency anemia Endometrial thickening on ultrasound Plan: Post op care - she is progressing well. Vaginal cuff well healed. She may return to normal activities. Reviewed pathology which was benign. She may resume well woman care with her PCP or Dr. Das following post op care. *The patient has a documented plan of care to address pain. All questions were answered to the patient's satisfaction. She is agreeable to this plan of care. *This note was completed using a voice pattern technician system. Every effort was made to ensure accuracy. However, inadvertent computerized pattern technician errors may be present. .Total time spent was 20 minutes: Preparing to see the patient (e.g., review of tests) Performing a medically appropriate examination and/or evaluation Counseling and educating the patient/family/caregiver Documenting clinical information in the electronic or other health record Care coordination (not separately reported) Mary Pennington PA-C, RD, IF JASON Zaragoza 12/27/23 1109 documented in this encounter [facility] 11-29-2023 History of Presen t illness [...] thigh- toddler & child, groin-age 15 CHOLECYSTECTOMY 1999's COLONOSCOPY 2022 COLONOSCOPY AND POLYPECTOMY 01/12/2018 Performed by Nitesh Littlejohn MD at [facility] HYSTERECTOMY, BILATERAL SALPINGO OOPHORECTOMY, PELVIC WASHINGS Bilateral 11/14/2023 Performed by Nabil Lord MD at [facility] SURGERY HEMORROIDECTOMY 1999's SKIN BIOPSY Right 2017 thigh TONSILLECTOMY age [...] *This note was completed using a voice pattern technician system. Every effort was made to ensure accuracy. However, inadvertent computerized pattern technician errors may be present. .Total time spent was 20 minutes: Preparing to see the patient (e.g., review of tests) Performing a medically appropriate examination and/or evaluation Counseling and educating the patient/family/caregiver Documenting clinical information in the electronic or other health record Care coordination (not separately reported) Mary Pennington PA-C, RD, IF JASON Zaragoza 11/29/23 1101 documented in this encounter [facility] [employer] [facility] 11-07-2023 Instructions Formatting of th is note might be different from the original. Your surgery/procedure is scheduled at [facility] on 11/14/2023 at 11 am Arrival Time 9 am [facility] Address: [address] [place] [address], [address] Park in the Emergency Center Parking lot. Report to the front office administrator in the Emergency/Surgery Registration lobby of the hospital. Please call Pre-Admission Clinic at [phone] if you have any questions prior to surgery. For questions the morning of surgery, please call the Pre-op Department at [phone]. Notify your SURGEON if you develop any [...] would like to schedule therapy at a [facility] facility, please call [phone] ([phone]). Do not use lotions, creams, powders, perfume, make up, cologne or after-shaves day of surgery. Remove ALL jewelry including wedding rings, body piercings, hair extensions that contain metal, nail solomon islander, make-up, and contact lens. You may brush your teeth the morning of surgery, but do not swallow the water. Wear your dentures and partial plates to the hospital (no adhesive). Shower the night the before. If applicable, use the CHG (chlorhexidine gluconate) soap or wipes. Please be advised, [facility] has transitioned to a cashless payment [...] RIGHTS AND RESPONSIBILITIES As a patient at [facility], you have the right to: Receive medical care and be informed of who is taking care of you Be treated with dignity and respect Have a family member/in store representative of choice and your physician notified of your admission Receive information and actively participate in decisions about your care and treatment Refuse care, treatment and services Decide who may provide your support and speak for you Access advent and spiritual services Participate in ethical issues [...] of hospital charges and payment methods Patient/patient in store representative responsibilities are to: Provide information about health status to facilitate care, treatment and services Follow the treatment, plan, keep appointments and speak up when you do not understand the plan Respect the rights of other patients and healthcare personnel Follow organizational rules and regulations that support quality care and a safe environment Fulfill financial obligations as promptly as possible [facility] 11-07-2023 Miscellaneous Notes Pt is going to [facility] on 11/09/2023 to havre EKG, CXR and labs. Your surgery/procedure is scheduled at [facility] on 11/14/2023 at 11 am Arrival Time 9 am [facility] Address: [address] [place] [address], [address] Park in the Emergency Center Parking lot. Report to the front office administrator in the Emergency/Surgery Registration lobby of the hospital. Please call Pre-Admission Clinic at [phone] if you have any questions prior to surgery. For questions the morning of surgery, please call the Pre-op Department at [phone]. Notify your SURGEON if you develop any [...] would like to schedule therapy at a [facility] facility, please call [phone] ([phone]). Do not use lotions, creams, powders, perfume, make up, cologne or after-shaves day of surgery. Remove ALL jewelry including wedding rings, body piercings, hair extensions that contain metal, nail solomon islander, make-up, and contact lens. You may brush your teeth the morning of surgery, but do not swallow the water. Wear your dentures and partial plates to the hospital (no adhesive). Shower the night the before. If applicable, use the CHG (chlorhexidine gluconate) soap or wipes. Please be advised, [facility] has transitioned to a cashless payment [...] RIGHTS AND RESPONSIBILITIES As a patient at [facility], you have the right to: Receive medical care and be informed of who is taking care of you Be treated with dignity and respect Have a family member/in store representative of choice and your physician notified of your admission Receive information and actively participate in decisions about your care and treatment Refuse care, treatment and services Decide who may provide your support and speak for you Access advent and spiritual services Participate in ethical issues [...] of hospital charges and payment methods Patient/patient in store representative responsibilities are to: Provide information about [...] promptly as possible documented in this encounter [facility] 11-07-2023 Nurse Note Pt is going to [facility] on 11/09/2023 to havre EKG, CXR and labs. [facility] 10-28-2023 Miscellaneous Notes Spoke with Mee 3/Raisa and 3/8 to confirm surgery plan. Patient is scheduled at [facility] with Dr Lord on 11/14/23. She knows to arrive at 9:00a for 11:00a surgery. Patient knows to call [phone] to locate closest [facility] facility in order to complete PAT testing. She has phone call PAT scheduled for 11/07/23. She will follow up with Mary in [place] on 11/29/23 at 10:30a. documented in this encounter [facility] 10-28-2023 Telephone encounter Note Spoke with Mee 3/Raisa and 3/8 to confirm surgery plan. Patient is scheduled at [facility] with Dr Lord on 11/14/23. She knows to arrive at 9:00a for 11:00a surgery. Patient knows to call [phone] to locate closest [facility] facility in order to complete PAT testing. She has phone call PAT scheduled for 11/07/23. She will follow up with Mary in [place] on 11/29/23 at 10:30a. [facility] 10-26-2023 History of Presen t illness Narrative [...] personal or family history of GI or surgical scheduler malignancies. Oncology History No overview note Isaura [...] 01/12/2018 Performed by Nitesh Littlejohn MD at [facility] HEMORROIDECTOMY TONSILLECTOMY Past Medical History: Diagnosis [...] procedures Referring and communicating with other health adult caregiver (not separately reported) Documenting clinical information in the electronic or other health record Independently interpreting results (not separately reported) and communicating results to the patient/family/caregiver Nabil Lord MD [facility] Miscellaneous Notes Left VM to schedule GROUND SUPPORT AGENT appt with surgical scheduler onc, call back # provided. Requested images from pelvic US be pushed via PACS from [employer]. [facility] Telephone encounter Note Left VM to schedule GROUND SUPPORT AGENT appt with surgical scheduler onc, call back # provided. Requested images from pelvic US be pushed via PACS from [employer]. [facility] Note Procedures Choosing a Surgeon When [...] a surgeon: ? Is certified by the [place] [employer]. To be board [...] going to your state medical board at www.fsmb.org/iyaekbo-s-samtz-hi dical-board/ ? Has good ratings from other [...] you are considering is certified by the [place] [employer]. ? Meet with [...] provider. Document Revised: 10/19/2021 Document Reviewed: 10/19/2021 [employer] Patient Education ? 2022 IMT. [facility] 08-05-2022 Note PROCEDURE: XR FOOT L [...] authenticated by: ALAN CÁRDENAS Date: 2022-08-04 22:03 [facility] Evaluation + Plan note Future Appointments Appointment Date:05/30/2023 02:00:00 PM Scheduled Provider: Location:[facility] Appointment Type: Medicare Wellness Subsequent Appointment Date:05/30/2023 02:40:00 PM Scheduled Provider:Anamaria Chinchilla MD Location:[facility] Appointment Type:FM Open Diagnostic Tests PendingUrine Culture 05/11/23 [facility] Evaluation + Plan note Future Appointments Appointment Date:07/30/2024 10:30:00 AM Scheduled Provider:Anamaria Chinchilla MD Location:[facility] Appointment Type:FM Open Appointment Date:07/30/2024 11:00:00 AM Scheduled Provider: Location:[facility] Appointment Type: Medicare Wellness Subsequent Diagnostic Tests PendingUrine Culture 05/07/24 [facility] Evaluation + Plan note Future Appointments Appointment Date:01/28/2025 08:45:00 AM Scheduled Provider:Anamaria Chinchilla MD [facility] Appointment Type:FM Open Appointment Date:08/01/2025 11:00:00 AM Scheduled Provider: Location:[facility] Appointment Type:FM Medicare Wellness Subsequent [facility] Evaluation note Diagnosis Endometrial thickening on ultrasound- Primary Postmenopausal bleeding [facility] Diagnosis Preop testing- Primary Unspecified pre-operative examination [facility] Diagnosis Well woman exam with routine gynecological exam Routine gynecological examination Breast cancer screening by mammogram Postmenopausal state Asymptomatic postmenopausal status (age-related) (natural) [facility] Diagnosis Encounter for postoperative care- Primary [facility] Diagnosis Encounter for postoperative care- Primary [facility] Narrative No data available for this section [facility] No data available for this section [facility] on filedocumented in this encounter [facility] filedocumented in this encounter [facility] on filedocumented in this encounter [facility] on filedocumented in this encounter [facility] on filedocumented in this encounter [facility] on filedocumented in this encounter [facility] No data available for this section [facility] Summary Purpose Family History No Family History [...] Procedures ECG 12 lead Nabil Lord MD [address] [place] [address] Referral ID Status Reason Start Date Expiration Date V isits Requested Visits Authorized [id number] Pending Review 10/28/2023 10/27/2024 1 1 Additional Source Comments INFORMATION SOURCE (unrecogn ized section and content) DATE CREATED AUTHOR 02/13/2018 [facility] DATE CREATED AUTHOR AUTHOR'S ORGANIZ ATION 08/12/[address] [facility] DATE CREATED AUTHOR AUTHOR'S ORGANIZ ATION 10/27/2023 [facility] DATE CREATED AUTHOR AUTHOR'S ORGANIZ ATION 10/28/2023 [facility] DATE CREATED AUTHOR AUTHOR'S ORGANIZ ATION 11/18/2023 [facility] DATE CREATED AUTHOR AUTHOR'S ORGANIZ ATION 12/28/2023 [facility] DATE CREATED AUTHOR AUTHOR'S ORGANIZ ATION 05/15/2024 [facility] DATE CREATED AUTHOR AUTHOR'S ORGANIZ ATION 08/10/2024 [facility] DATE CREATED AUTHOR AUTHOR'S ORGANIZ ATION 08/12/2024 [facility] DATE CREATED AUTHOR AUTHOR'S ORGANIZ ATION 08/13/2024 [facility] DATE CREATED AUTHOR AUTHOR'S ORGANIZ ATION 09/03/2024 [facility] DATE CREATED AUTHOR AUTHOR'S ORGANIZ ATION 09/13/2024 [facility] DATE CREATED AUTHOR AUTHOR'S ORGANIZ ATION 09/19/2024 [facility] Patient Care team informatio n (unrecognized section and content) Greenskeeper Relationship Specialty Start Date End Date Anjelica Gambino MD [address] [place] [address] PCP - General Family Medicine 12/24/16 Greenskeeper Relationship Specialty Start Date End Date Anjelica Gambino MD [address] [place] [address] PCP - General Family Medicine 12/24/16 Greenskeeper Relationship Specialty Start Date End Date Anjelica Gambino MD [address] [place] [address] PCP - General Family Medicine 12/24/16 Greenskeeper Relationship Specialty Start Date End Date Anamaria Chinchilla MD [address] [place] [address] PCP - General Family Medicine 11/07/23 Greenskeeper Relationship Specialty Start Date End Date Anjelica Gambino MD [address] [place] [address] PCP - General Family Medicine 01/27/23 Greenskeeper Relationship Specialty Start Date End Date Anjelica Gambino MD [address] [place] [address] PCP - General Family Medicine 01/27/23 Greenskeeper Relationship Specialty Start Date End Date Anamaria Chinchilla MD [address] [place] [address] PCP - General Family Medicine 11/07/23 Reason for Visit (unrecogniz ed section and [...] BE BASED ON THE PRIMARY CLINICAL RECORDS. [facility]. provides no warranty or guarantee of the accuracy or completeness of information in this document.
[2024-10-05 09:24] LABS: Calcium 8.9 mg/dL (8.5-10.1)
== END 2024-10-05 08:43 | disposition home or self-care (01) ==
LOC: LAB 08:50
PROVIDERS: PCP Family Medicine; Visit Provider Obstetrics & Gynecology
DX: M81.0 Age-related osteoporosis without current pathological fracture (principal)
CPT/HCPCS: 36415; 82310

== ENCOUNTER 2024-10-08 07:33 | Outpatient (RCR) | payer MEDICARE, SELFPAY ==
[2024-10-08 10:02] VITALS: BP 135/66; PULSE 74; TEMP 36.4; O2SAT 98
[2024-10-08] MEDS: DENOSUMAB 60 MG/ML SYRINGE SUBQ (10:24)
== END 2024-10-08 13:17 | disposition home or self-care (01) ==
LOC: INF 07:33
PROVIDERS: PCP Family Medicine; Visit Provider Obstetrics & Gynecology
DX: M81.0 Age-related osteoporosis without current pathological fracture (principal)
CPT/HCPCS: 96372; J0897

== ENCOUNTER 2024-10-19 08:21 | Outpatient (OUT) | payer MEDICARE, SELFPAY ==
--- NOTE | 2024-10-19 | XR_ITS ---
[facility] [place] [id number] Patient Name: PAPITO HAYDEN MRN: [id number] date: 1950 Sex: F Assigned Patient Location: Current Patient Location: Accession/Order Number: [id number] Exam Date: 10/19/2024 12:14 Report Date: 10/19/2024 12:17 At the request of: SUNG COPELAND DPMitesh Procedure: XR foot SARAHI min 3V BILATERAL FEET - 3 views each COMPARISON: 09/18/2024 CLINICAL DATA: Bilateral foot pain. History of right fifth and left second metatarsal fractures. Weight-bearing AP, lateral and oblique views were obtained. Similar healing bilateral proximal metatarsal fractures are noted. No developing fractures or dislocation are seen. There are minor degenerative changes including calcaneal spurs. No solid tissue swelling is seen. XR/XR foot SARAHI min 3V IMPRESSION: STABLE HEALING METATARSAL FRACTURES. NO ACUTE FINDINGS. Impression dictated by: Maryanne Coates M.D.10/19/2024 12:17 PM Dictation Location: [place] Electronically authenticated by: [id number] Y Date: 10/19/2024 12:17
--- OUTSIDE RECORDS SUMMARY | 2024-10-19 08:36 | XMS_ITS | CCD ---
Author Organization [facility] Care Team Providers Care Head Sulfide Operator Name Role Phone FARA BOOKER Unavailable Unavailable GAMBINO, ANJELICA Bergeron Unavailable Unavailable KARASIK, FARA Unavailable Unavailable GAMBINO, ANJELICA Bergeron Unavailable [...] Attending Unavailable KARASIK, DR CHAUDHARI Admitting Unavailable ZIEBER, DR ALAN [...] Consulting Unavailable Anamaria Chinchilla. Primary Care Physician NABIL LORD Attending Unavailable BELEN, ANJELICA Bergeron Referring Unavailable GAMBINO, ANJELICA Bergeron Primary Care Unavailable GAMBINO, ANJELICA E Referring Unavailable GAMBINO, ANJELICA Bergeron Primary Care Unavailable GAMBINO, ANJELICA Bergeron Referring Unavailable AMOR, ANAMARIA E Primary Care [...] Attending Unavailable CAROLYN, NABIL C Referring Unavailable AMOR ANAMARIA Rubio Primary Care Unavailable CAROLYN, NABIL C Referring Unavailable AMOR, ANAMARIA Rubio Primary Care Unavailable MARY PENNINGTON Attending Unavailable ANJELICA GAMBINO Referring Unavailable AMOR, ANAMARIA Bergeron Primary Care [...] Chinchilla Attending Unavailable Anamaria Chinchilla Admitting Unavailable Anamaria Chinchilla MD Primary Care Provider Anjelica Gambino MD Primary Care Provider Allergies Allergy Classification Reported Allergen(s) Allergy Type Date of Onset Reaction(s) Facility (5 sources) atorvastatin; Translations: [atorvastatin] Drug Allergy Unknown (qualifier value) [facility] (15 sources) HYDROmorphone; Translations: [hydromorphone] Drug Allergy 01-29-20 Unknown (qualifier value), Unknown, Confusion, Hallucinations [facility] (5 sources) Pyrilamine; Translations: [pyrilamine] Drug Allergy Unknown (qualifier value) [facility] (3 sources) No Known Medication Allergies; Translations: [No Known Medication Allergies] Propensity to adverse reactions (disorder) [facility] Repository Medications Current Medications Medication Drug Class(es) Dates Sig (Normalized) Sig (Original) amLODIPine 5 mg oral tablet (11 sources) Dihydropyridine Calcium Channel Sylvester Start: 06-01-2023 take 1 tablet by mouth in the morning amLODIPine (Norvasc) 5 MG tablet Take 5 mg by mouth in the morning. 06/01/2023 Active aspirin 81 mg oral capsule (12 sources) Platelet Aggregation Inhibitor, Nonsteroidal Anti-inflammatory Drug Start: 11-29-2022 take 1 capsule by mouth every other day aspirin 81 mg oral capsule See Instructions, 1 cap(s) Oral every other day, Refills(s) 0 Start Date: 11/29/22 Status: Ordered Start: 11-29-2022 take 1 capsule by mo uth once daily aspirin 81 mg oral capsule [...] health Active bimatoprost 0.01 mg drug implant (10 sources) Prostaglandin Analog Start: 07-13-2024 Durysta 1 [...] Refill(s) 0 Start Date: 05/30/23 Status: Ordered Jwyglkt-Qiraqrvqft-Zgu harp D (VITAMIN D3/CALCIUM/PHOSPHORUS PO) (4 sources) take 1 dose by mouth once in the morning Shefszm-Aklhugbcat-Jtr harp D (VITAMIN D3/CALCIUM/PHOSPHORUS PO) Take 1 [...] (three) times a day. 0 Active denosumab (9 sources) RANK Ligand Inhibitor Start: 024 Denosumab [...] sennosides, nursing home 8.6 mg oral tablet (2 sources) Start: [...] day(s), # 14 cap(s), Refills(s) 0, Pharmacy: [facility] [id number], 162, cm, 05/07/24 14:07:00 EDT, Height/Length Dosing, [...] Active krill oil 500 mg oral capsule (7 sources) Start: 12-01-2022 Krill Oil (K[place]iusko-3) 500 MG capsule Take 500 mg by mouth. 12/01/2022 Active losartan potassium 100 mg oral tablet (11 sources) Angiotensin 2 Receptor Sylvester Start: 05-30-2023 take 1 tablet by mouth in the morning losartan (Cozaar) 100 MG tablet Take 100 mg by mouth in the morning. 05/30/2023 Active Start: 12-15-2022 take 1 tablet by silver th twice daily losartan 25 mg Tab 25 mg = 1 tab(s), Oral, BID, # 180 tab(s), Refills(s) 0, Pharmacy: [facility] [id number], 162, cm, 05/11/23 9:36:00 EDT, Height/Length Dosing, 74.9, kg, 05/11/23 9:36:00 EDT, Weight Dosing Start Date: 05/11/23 Status: Ordered meloxicam 15 mg oral tablet (5 sources) Nonsteroidal Anti-inflammatory Drug Start: 02-27-2023 End: 11-07-2023 take 1 tablet by mouth once daily as needed meloxicam 15 mg Tab See Instructions, TAKE ONE TABLET BY MOUTH DAILY NEEDED, # 90 tab(s), Refills(s) 0, Pharmacy: [facility] [id number], 162.6, cm, 12/01/22 15:23:00 EDT, Height/Length Dosing, [...] Active rosuvastatin calcium 20 mg oral tablet (12 sources) HMG-CoA Reductase Inhibitor Start: 12-01-2022 rosuvastatin (Crestor) 20 MG tablet Take 20 mg by mouth. 12/01/2022 Active tafluprost 0.015 mg/ml ophthalmic solution (4 sources) [...] Ordered vitamin e 450 mg oral capsule (12 sources) Start: 12-01-2022 take 1 capsule by mouth once daily vitamin E 450 mg oral capsule See Instructions, take one daily 400mg, Refills(s) 0 Start Date: 12/01/22 Status: Ordered Start: 12-01-2022 alpha tocopher ol (Vitamin E) 1000 units capsule See Instructions, take one daily 400mg, Refills(s) 0 12/01/2022 Active take 1 capsule by [facility] once daily at dinner vitamin E, dl,tocopheryl acet, (vitamin E, dl, acetate,) 180 mg (400 unit) capsule Take 1 capsule (400 Units total) by mouth Daily before evening meal. Active take 1 capsule by md ut in the morning vitamin E, dl,tocopheryl [...] (Therapy completed) stool softner (1 source) Start: 12-09-2024 stool softner stool softner, 100 mg, Oral, [...] [Hypercholesterolemia ] Onset: 12-27-2016 Chronic Essential hypertension (11 sources) Essential (primary) hypertension; Translations: [Hypertensive disorder] [...] Onset: 10-27-2023 Resolved: 11-28-2023 05-11-2023 Chronic Osteoarthritis (10 sources) Arthritis; Translations: [Unspecified osteoarthritis, unspecified site] Onset: 12-27-2016 01-31-2023 Chronic Osteoporosis (8 sources) Senile osteoporosis; Translations: [Age-related osteoporosis without [...] menopausal state] 08-28-2024 Episodic Transient cerebral ischemia (12 sources) Transient cerebral ischemic attack, unspecified; Translations: [...] Onset: 09-08-2021 Episodic Deficiency and other anemia (10 sources) Iron deficiency anemia; Translations: [Iron deficiency anemia, unspecified] Onset: 12-27-2016 01-31-2023 Episodic Diabetes mellitus without complication (1 source) Hyperglycemia, unspecified; Translations: [HYPERGLYCEMIA UNSPECIFIED] Onset: 02-11-2022 Episodic Other aftercare (2 sources) Postoperative visit; Translations: [Encounter for other specified surgical aftercare] 12-27-2023 Episodic Other and unspecified benign neoplasm (4 sources) History of polyp of colon; Translations: [History of colon polyps] Onset: 02-01-2023 02-01-2023 Episodic Other bone disease and musculoskeletal deformities (1 source) Other specified disorders of bone density and structure, unspecified site; Translations: [OTH D/O BONE DEN STRUCT UNS SITE] Onset: 09-22-2021 Episodic Other screening for suspected conditions (not mental disorders or infectious disease) (7 sources) Abnormal findings on diagnostic imaging of other specified body structures; Translations: [Endometrium thickened] Onset: 10-27-2023 Resolved: 12-27-2023 12-27-2023 Chronic Residual codes; unclassified (1 source) Family [...] Name Value Interpretation Reference Range Facil ity [facility] CALCIUMon 10-05-2024 Calcium [Mass/Vol] 8.9 mg/dL 8.5 - 10.1 mg/dL [facility] Family Medicine Office/Clini c Noteon 09-17-2024 Family [...] and her call the squad transferred to [facility] she did vomit a few times [...] Assessment/Plan 1. Cat bite of lower leg (S81.459W: Open bite, unspecified lower leg, initial encounter) [...] her called 911 and was taken to [facility]. was hydrated with IV fluids and [...] tendinitis, unspecified shoulder) pt was seen at [facility] ortho Dr. Keith to go over [...] 23-valent v (more content not included)... Normal [facility] Comment on above: Result Comment: Elec tronically Signed By: Violet Allen.kelly\Date and Time Signed: 09/17/24 11:46 EST Tobi Whelan 09-13-2024 Tobi KARLEE -- - Pre No anaerobic growth after 48 hrs. Normal [facility] Comment on above: Performed By: #### A NAC #### [facility] [address] [place] [address] C Woundon 09-13-2024 C Wound -- - Final No growth at 48 hours. Normal [facility] Comment on above: Performed By: #### W DC #### [facility] [address] [place] [address] Family Medicine Office/Clini c Noteon 09-11-2024 Family Medicine Office/Clinic Note Family Medicine Office/Clinic Note [facility] Staff Isaura is a 74 year old female presenting with a cat bite on right ankle Onset: History of Present Illness Pt was bit 1-2 [place] before presenting to [place]. Seen in [place] who started the patient on Abx. Area [...] Recorded pneumococcal 23-valent vaccine 06/25/2008 Recorded Normal [facility] Comment on above: Result Comment: Elec tronically Signed By: Amor SHORT, Anamaria Saldivar.br\Date and Time Signed: 09/11/24 12:15 EST OR Trackon 09-11-2024 Specimens Received From [facility] Comment on above: Performed By: #### O [facility] Tracking Order #### [id number] [place] [address] Ambulatory Visit Summaryon 0 09-10-2024 Ambulatory Visit [...] AM EDT With: Anamaria Chinchilla MD Where: [address] [address]- 2024 11:00 AM EST With: Where: [address] [address]- Medications What How Much When Instructions Unchanged [...] you for choosing us for your care. [facility] Ambulatory Visit Summaryon 0 08-27-2024 Ambulatory Visit [...] EDT With: Amor SHORT, Anamaria Harvey Where: [address] [id number]- 2024 11:00 AM EST With: Where: [address] [address]- Medications What How Much When Instructions Unchanged [...] for choosing us for your care. Normal [facility] Family Medicine Office/Clini c Noteon [...] ortho for this. Follow up PRN Ordered: [facility] [place]erral 2. CKD stage 3a, GFR 45-59 ml/min (N18.31: Chronic kidney disease, stage 3a) Improved on last lab work. Follow up PRN Ordered: A1c POC [address] [facility] [place] 3. BMI 29.0-29.9,adult (Z68.29: Body mass index [BMI] 29.0-29.9, adult) BMI education added Ordered: [facility] [place]ulatory Ref[place] 4. Age-related osteoporosis without current pathological fracture (M81.0: Age-related osteoporosis without current pathological fracture) Reviewed Labs and Dexa. Prolia does not seem to be helping. Follows with Dr. Das. Ordered: [facility] [place]ulatory Referral Follow-up No qualifying data [...] A1c POC: 5.2 % (08/27/24 12:02:00) Normal [facility] Comment on above: Result Comment: Elec tronically Signed By: Amor SHORT, Anamaria Saldivar.br\Date and Time Signed: 08/27/24 12:03 EST CBC w/ Auto Diffon 4 Basophils/100 WBC (Bld) 0.7 % Normal 0.0-2.0 [facility] Comment on above: Performed By: #### 2 [id number] #### [facility] [address] [place] [address] Basophils/Leukocyte s Auto (Bld) [Pure # fraction] 0.1 E9/L Normal 0.0-0.2 [facility] Comment on above: Performed By: #### 2 [id number] #### [facility] [address] [place] [address] Eosinophils (Bld) [#/Vol] 0.3 E9/L Normal 0.0-0.5 [facility] Comment on above: Performed By: #### 2 [id number] #### [facility] [address] [place] [address] Eosinophils/100 WBC (Bld) 3.2 % Normal 0.0-8.0 [facility] Comment on above: Performed By: #### 2 [id number] #### [facility] [address] [place] [address] Erythrocyte distribution width (RBC) [Ratio] 13.7 % Normal 10.9-14.2 [facility] Comment on above: Performed By: #### 2 [id number] #### [facility] [address] [place] [address] Hematocrit (Bld) [Volume fraction] 36.1 % Normal 34.0-46.0 [facility] Comment on above: Performed By: #### 2 [id number] #### [facility] [address] [place] [address] Hemoglobin (Bld) [Mass/Vol] 12.3 g/dL Normal 12.0-16.0 [facility] Comment on above: Performed By: #### 2 [id number] #### [facility] [address] [place] [address] Lymphocytes (Bld) [#/Vol] 1.7 E9/L Normal 1.0-4.0 [facility] Comment on above: Performed By: #### 2 [id number] #### [facility] [address] [place] [address] Lymphocytes/100 WBC (Bld) 20.6 % Normal 14.0-50.0 [facility] Comment on above: Performed By: #### 2 [id number] #### [facility] [address] [place] [address] MCH (RBC) [Entitic mass] 33.6 pg Normal 27.0-34.0 [facility] Comment on above: Performed By: #### 2 [id number] #### [facility] [address] [place] [address] MCHC (RBC) [Mass/Vol] 34.1 g/dL Normal 31.4-36.0 [facility] Comment on above: Performed By: #### 2 [id number] #### [facility] [address] [place] [address] MCV (RBC) [Entitic vol] 98.7 fL Normal 80.0-100.0 [facility] Comment on above: Performed By: #### 2 [id number] #### [facility] [address] [place] [address] Monocytes (Bld) [#/Vol] 0.6 E9/L Normal 0.2-1.0 [facility] Comment on above: Performed By: #### 2 [id number] #### [facility] [address] [place] [address] Neutrophils (Bld) [#/Vol] 5.8 E9/L Normal 2.0-7.5 [facility] Comment on above: Performed By: #### 2 [id number] #### [facility] [address] [place] [address] Neutrophils/100 WBC (Bld) 68.8 % Normal 36.0-75.0 [facility] Comment on above: Performed By: #### 2 [id number] #### [facility] [address] [place] [address] Platelet 304.0 E9/L Normal 150.0-500.0 [facility] Comment on above: Performed By: #### 2 [id number] #### [facility] [address] [place] [address] Platelet mean volume (Bld) [Entitic vol] 8.4 fL Normal 6.4-10.8 [facility] Comment on above: Performed By: #### 2 [id number] #### [facility] [address] [place] [address] RBC (Bld) [#/Vol] 3.7 E12/L Low 4.3-5.9 [facility] Comment on above: Performed By: #### 2 [id number] #### [facility] [address] [place] [address] WBC corrected for nucl RBC Auto (Bld) [#/Vol] 8.5 E9/L Normal 4.0-11.0 [facility] Comment on above: Performed By: #### 2 [id number] #### [facility] [address] [place] [address] CHEMISTRYOrdered By: SYSTEM SYSTEM on 08-09-2024 25-hydroxyvitamin [...] 08-09-2024 Albumin [Mass/Vol] 4.4 g/dL Normal 3.3-5.0 [facility] Comment on above: Performed By: #### 2 [id number] #### [facility] [address] [place] [address] Albumin/Globulin (S) [Mass conc ratio] 1.6 Normal 1.1-2.2 [facility] Comment on above: Performed By: #### 2 [id number] #### [facility] [address] [place] [address] ALP [Catalytic activity/Vol] 52 Int._Unit/L Normal 21-98 [facility] Comment on above: Performed By: #### 2 [id number] #### [facility] [address] [place] [address] ALT No additional P-5'-P [Catalytic activity/Vol] 14 Int._Unit/L Normal 6-46 [facility] Comment on above: Performed By: #### 2 [id number] #### [facility] [address] [place] [address] Anion gap [Moles/Vol] 11 mmol/L Normal 6-16 [facility] Comment on above: Performed By: #### 2 [id number] #### [facility] [address] [place] [address] AST [Catalytic activity/Vol] 18 Int._Unit/L Normal 5-43 [facility] Comment on above: Performed By: #### 2 [id number] #### [facility] [address] [place] [address] Bilirubin [Mass/Vol] 0.9 mg/dL Normal 0.0-1.1 [facility] Comment on above: Performed By: #### 2 [id number] #### [facility] [address] [place] [address] Calcium [Mass/Vol] 8.9 mg/dL Normal 8.9-11.1 [facility] Comment on above: Performed By: #### 2 [id number] #### [facility] [address] [place] [address] Chloride [Moles/Vol] 107 mmol/L Normal 101-111 [facility] Comment on above: Performed By: #### 2 [id number] #### [facility] [address] [place] [address] CO2 [Moles/Vol] 27 mmol/L Normal 21-31 [facility] Comment on above: Performed By: #### 2 [id number] #### [facility] [address] [place] [address] Creatinine [Mass/Vol] 1.1 mg/dL Normal 0.5-1.3 [facility] Comment on above: Performed By: #### 2 [id number] #### [facility] [address] [place] [address] Globulin (S) [Mass/Vol] 2.8 g/dL Normal 1.4-4.0 [facility] Comment on above: Performed By: #### 2 [id number] #### [facility] [address] [place] [address] Glucose [Mass/Vol] 105 mg/dL Normal 55-199 [facility] Comment on above: Performed By: #### 2 [id number] #### [facility] [address] [place] [address] Potassium [Moles/Vol] 4.1 mmol/L Normal 3.5-5.3 [facility] Comment on above: Performed By: #### 2 [id number] #### [facility] [address] [place] [address] Protein [Mass/Vol] 7.2 g/dL Normal 6.0-7.8 [facility] Comment on above: Performed By: #### 2 [id number] #### [facility] [address] [place] [address] Sodium [Moles/Vol] 141 mmol/L Normal 135-145 [facility] Comment on above: Performed By: #### 2 [id number] #### [facility] [address] [place] [address] Urea nitrogen [Mass/Vol] 15 mg/dL Normal 5-21 [facility] Comment on above: Performed By: #### 2 [id number] #### [facility] [address] [place] [address] Urea nitrogen/Creatinine [Mass ratio] 14 No Units Normal 10-20 [facility] Comment on above: Performed By: #### 2 [id number] #### [facility] [address] [place] [address] HEMATOLOGYOrdered By: SYSTEM SYSTEM on 08-09-2024 Basophils/100 [...] 08-09-2024 Cholesterol [Mass/Vol] 208 mg/dL High 120-200 [facility] Comment on above: Performed By: #### 2 [id number] #### [facility] [address] [place] [address] Cholesterol in HDL [Mass/Vol] 64 mg/dL Invalid Interpretation Code [facility] Comment on above: Result Comment: '>= 60 LOW RISK' '<= 40 HIGH RISK' Performed By: #### 2 [id number] #### [facility] [address] [place] [address] Cholesterol in LDL [Mass/Vol] 104 mg/dL Normal <=129 [facility] Comment on above: Performed By: #### 2 145306 #### [facility] [address] [place] [address] Cholesterol in VLDL [Mass/Vol] 36 mg/dL Normal 7-40 [facility] Comment on above: Performed By: #### 2 [id number] #### [facility] [address] [place] [address] Triglyceride [Mass/Vol] 182 mg/dL High <=149 [facility] Comment on above: Performed By: #### 2 [id number] #### [facility] [address] [place] [address] TSH With T4fr Reflexon 08-09 TSH Qn 2.85 m[IU]/L Normal 0.34-5.60 [facility] Comment on above: Performed By: #### 1 [id number] #### [facility] [address] [place] [address] U MA/Cr Ratioon 08-09-2024 Albumin DL <= 20 mg/L (U) [Mass/Vol] mg/dL Normal 0.0-1.9 [facility] Comment on above: Performed By: #### 1 [id number] #### [facility] [address] [place] [address] Albumin/Creatinine DL <= 20 mg/L (U) [Mass ratio] NOT CALCULATED Invalid Interpretation Code .0-30.0 [facility] Comment on above: Result Comment: 30-3 00 mg/g Cr indicates an increased risk for diabetic nephropathy. >300 mg/g Cr is consistent with clinical nephropathy. Performed By: #### 1 [id number] #### [facility] [address] [place] [address] U Creatinine 127.3 mg/dL Invalid Interpretation Code [facility] Comment on above: Performed By: #### 1 [id number] #### [facility] [address] [place] [address] Vit B12on 08-09-2024 Cobalamin (Vitamin B12) [Mass/Vol] 253 pg/mL Normal 50-1500 [facility] Comment on above: Performed By: #### 2 720454 #### [facility] [address] [place] [address] Vitamin D 25 Hydroxyon 08-09 25-hydroxyvitamin D3 [Mass/Vol] 36.9 ng/mL Normal 30.0-100.0 [facility] Comment on above: Performed By: #### 5 [id number] #### [facility] [address] [place] [address] eGFRon 08-09-2024 eGFR 53 mL/min/1.73 m2 Low >=59 [facility] Comment on above: Performed By: #### 1 [id number] #### [facility] [address] [place] [address] Ambulatory Visit Summaryon 1 10-08-2023 Ambulatory Visit [...] Appointments 2023 8:40 AM EST With: Where: [place] [id number]- Tuesday 8:45 AM EDT With: Anamaria Chinchilla MD Where: [address] [address] 2024 11:00 AM EST With: Where: [address] [address]- You Need to Complete the [...] Hyperlipidemia (more content not included)... Normal [facility] Family Medicine Office/Clini c Noteon 08-07-2024 [...] pain Numeric Rating Pain Score : 3 Lucia Pereirasocorro Chaidez - 07/30/2024 9:48 EST Hearing and Vision Screening FT FT Whisper Test Comments : wears hearing aides Vision Screen Comments : wears corrective lens. Martha Dow - 07/30/2024 9:48 EST Advance Directive FT Advance Directive : Yes Type of Advance Directive : Living will, Medical durable power of trademark attorney Location of Advance Directive : Family to bring in copy from home Organ Donation Consent : Yes RandallLuciasocorro Chaidez - 07/30/2024 9:48 EST Procedures / [...] Martha Pereira (more content not included)... Normal [facility] Comment on above: Result Comment: [...] Appointments 2023 8:40 AM EST With: Where: [address] [address]- Tuesday 8:45 AM EDT With: Amor SHORT, Anamaria Harvey Where: [address] [address]- 2024 11:00 AM EST With: Where: [address] [address]- You Need to Complete the [...] Chronic cough Duration: 7 Days Pickup at [facility] [id number] Unchanged amlodipine (amLODIPine 5 mg Tab) See [...] fatty a (more content not included)... Normal [facility] Ambulatory Visit Summary Ambulatory Visit [...] Appointments 2023 8:40 AM EST With: Where: [address] [id number]- Tuesday 8:45 AM EDT With: Anamaria Chinchilla MD Where: [address] [id number]- 2024 11:00 AM EST With: Where: [address] [address]- You Need to Complete the Following CBC [...] Chronic cough Duration: 7 Days Pickup at [facility] [id number] Unchanged amlodipine (amLODIPine 5 mg Tab) See [...] fatty a (more content not included)... Normal [facility] Family Medicine Office/Clini c Noteon 07-30-2024 [...] humorously by the physician as looking like Ethiopian cheese on X-rays. She uses a bone [...] 0, Pharmacy: [facility] [id number], 162, cm, 07/30/24 10:07:00 EST, Height/Length Dosing, 75.8, kg, 07/30/24 10:07:00 EST, Weight Dosing CBC w/ Auto Diff TSH With T4fr Reflex Vitamin B12 Level Vitamin D 25 Hydroxy 2. Hypercholesterolemia (E78.00: Pure hypercholesterolemia, unspecified) As below. Ordered: benzonatate, 200 mg = 1 cap(s), Oral, TID, X 7 day(s), # 21 cap(s), Refills(s) 0, Pharmacy: [facility] [id number], 162, cm, 07/30/24 10:07:00 EST, Height/Length Dosing, 75.8, kg, 07/30/24 10:07:00 EST, Weight Dosing CBC w/ Auto Diff TSH With T4fr Reflex Vitamin B12 Level Vitamin D 25 Hydroxy 3. Hyperlipidemia (E78.5: Hyperlipidemia, unspecified) Continue on a statin as before. Ordered: benzonatate, 200 mg = 1 cap(s), Oral, TID, X 7 day(s), # 21 cap(s), Refills(s) 0, Pharmacy: [facility] [id number], 162, cm, 07/30/24 10:07:00 EST, Height/Length Dosing, [...] day(s), # 21 cap(s), Refills(s) 0, Pharmacy: [facility] [id number], 162, cm, 07/30/24 10:07:00 EST, Height/Length Dosing, 75.8, kg, 07/30/24 10:07:00 EST, Weight Dosing CBC w/ Auto Diff Comprehensive Metab (more content not included)... Normal [facility] Comment on above: Result Comment: Elec tronically Signed By: Amor SHORT, Anamaria Harvey\.br\Date and Time Signed: 07/30/24 12:21 EST Pre-Visit [...] feel free to contact me at extension [phone]. Thank you! Daly Joy, ALEXN, RN, CCM, CCDS, CCDS-O CDI Engineer Operations And Maintenance [address] [address] P: [phone] F: [phone] [email or web address] From: Amor SHORT, Anaamria Harvey To: Benita MENJIVAR, Daly; Sent: 07/30/2024 15:17:44 EST Subject: RE: Pre-Visit Planning Caller Name: ISAURA HAYDEN; Caller Number: Adrian , Mitesh I could not address this today. Thanks Normal [facility] Family Medicine Office/Clini c Noteon [...] in 3-5 days Ordered: Rapid Strep POC 78532 Follow-up No qualifying data available Patient Education Pharyngitis, Ojgv-qg-Pcck Problem List/Past Medical History Ongoing Age-related osteoporosis [...] Strep POC Result: Negative (07/13/24 11:52:00) Normal [facility] Comment on above: Result Comment: [...] Locations R1: This test was performed at: [facility], [address] [place] [address], [phone]- , , Normal [facility] Comment on above: Performed By: #### 2 [id number] #### [facility] [address] [place] [address] Ambulatory Visit Summaryon 0 05-07-2024 Ambulatory Visit [...] AM EST With: Anamaria Chinchilla MD Where: [address] [address]- Tuesday 11:00 AM EST With: Where: [address] [address]- Medications What How Much When [...] for choosing us for your care. Normal [facility] Family Medicine Office/Clini c [place] [...] day(s), # 14 cap(s), Refills(s) 0, Pharmacy: [facility] [id number], 162, cm, 05/07/24 14:07:00 EDT, Height/Length Dosing, 76, kg, 05/07/24 14:07:00 EDT, Weight Dosing Body Mass Index (BMI) documented 3008F Current tobacco non-user 1036F Depression Screening Negative 3352F E&M of Est. Patient Low 20-29 Min 93743 Influenza immunization status assessed 1030F Medication list [...] Urnls Dip Stick Auto w/o Microscopy POC 95686 2. Non-smoker (Z78.9: Other specified health status) - Please continue to not smoke Ordered: doxycycline, 100 mg = 1 cap(s), Oral, BID, X 7 day(s), # 14 cap(s), Refills(s) 0, Pharmacy: [facility] [id number], 162, cm, 05/07/24 14:07:00 EDT, Height/Length Dosing, 76, kg, 05/07/24 14:07:00 EDT, Weight Dosing Body Mass Index (BMI) documented 3008F Current tobacco non-user 1036F Depression Screening Negative 3352F E&M of Est. Patient Low 20-29 Min 26701 Influenza immunization status assessed 1030F Medication list [...] day(s), # 14 cap(s), Refills(s) 0, Pharmacy: [facility] [id number], 162, cm, 05/07/24 14:07:00 EDT, Height/Length Dosing, 76, kg, 05/07/24 14:07:00 EDT, Weight Dosing Body Mass Index (BMI) documented 3008F Current tobacco non-user 1036F Depression Screening Negative 3352F E&M of Est. Patient Low 20-29 Min 57516 Influenza immunization status assessed 1030F Medication list [...] day(s), # 14 cap(s), Refills(s) 0, Pharmacy: [facility] [id number], 162, cm, 05/07/24 14:07:00 EDT, Height/Length Dosing, 76, kg, 05/07/24 14:07:00 EDT, Weight Dosing Body Mass Index (BMI) documented 3008F Current tobacco non-user 1036F Depression Screening Negative 3352F E&M of Est. Patient Low 20-29 Min 75964 Influenza immunization status assessed 1030F Medication list [...] stage 3a (more content not included)... Normal [facility] Comment on above: Result Comment: Elec tronically Signed By: Amor SHORT, Anamaria Jacobsonbr\Date and Time Signed: 05/07/24 14:35 EDT Dexa Scanson 02-08-2024 Dexa Scans [id number]#1.0 0TIFF Normal [facility] Consultation Noteon 02-07-20 Consultation Note [id number] 60 [id number]#1.0 0TIFF Normal [facility] RAD - MISCon 02-02-2024 RAD - MISC [id number] 60 [id number]#1.0 0TIFF Normal [facility] RAD - MISC [id number] 60 [id number]#1.0 0TIFF [facility] Consultation Noteon 01-30-20 Consultation Note [id number] 60 [id number]#1.0 0TIFF Normal [facility] Consultation Noteon 12-26-19 Consultation Note [id number] 50 [id number]#1.0 0TIFF [facility] RAD - MISCon 12-21-2023 RAD - MISC [id number] 50 [id number]#1.0 0TIFF Normal [facility] RAD - MISC [id number] 50 [id number]#1.0 0TIFF Normal [facility] Consultation Noteon 12-09-19 Consultation Note [id number] 40 [id number]#1.0 0TIFF Normal [facility] Consultation Noteon 11-24-19 Consultation Note [id number] 40 [id number]#1.0 0TIFF [facility] Discharge Documentationon Discharge Documentation [id number]#1.0 0TIFF Normal [facility] Cytologyon 11-14-2023 Cytology Normal [facility] Comment on above: Result Comment: [facility] [address] [place] [address] Cytology Consultation Patient Name:ISAURA HAYDEN:1950 (Age: 73)Gender:FTaken:11/14/2023eported:11/16/2023 14:25Physician(s):Nabil Lord M.D. ([phone])Copy To: Rec. #:[id number]: #[id number] Final Cytologic Diagnosis Pelvic washings: No malignant cells identified. k/11/16/2023 [place] [address], License number: [id number].Electronically Signed Out By Edie Day MD Clinical History Thickened endometrium/ post menopausal bleeding/ cervical stenosis. Gross Description Received was 35mL of clear colorless fluid unfixed labeled as Catracho, pelvic washings . CytoLyt added in lab. Unable to obtain cellblock, ThinPrep made. 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 ([phone])Copy To: Rec. #:[id number]: #[id number] Final Pathologic Diagnosis Uterus, cervix, bilateral fallopian tubes, bilateral ovaries, TAHBSO: Cervix with no significant histopathologic abnormality Endometrium with cystic atrophy Myometrium with adenomyosis Bilateral adnexa with no significant histopathologic abnormality Report Electronically Signed Out nsk11/16/2023Trevori Braxton Day MD Interpretation performed at [facility], [address] [place] [address], License number: [id number]. Clinical History Thickened endometrium, postmenopausal bleeding, cervical [...] ovary L-N Remainder of endometrium (14, ss, [id number], A- K, m6) MONICO/MD kilgore/11/14/2023GR Specimen(s) Received Uterus, cervix, bilateral fallopian tubes, bilateral ovaries Fee Codes(s): 1; 23079 Consultation Noteon 11-10-19 Consultation Note [id number]#1.0 0TIFF Normal [facility] CBC AND AUTO DIFFon 11-09-19 ABSOLUTE BASOPHIL 0.1 X10E9/L Normal 0.0-0.2 [facility] Comment on above: Performed By: #### C BCA, CMP #### [facility] ([id number]) [address], [address] [place] [address] ABSOLUTE NEUTROPHIL 3.1 X10E9/L Normal 1.5-6.6 [facility] Comment on above: Performed By: #### C BCA, CMP #### [facility] ([id number]) [address], [address] [place] [address] Basophils/100 WBC (Bld) 0.9 % Normal [facility] Comment on above: Performed By: #### C BCA, CMP #### [facility] ([id number]) [address], [address] [place] [address] Eosinophils (Bld) [#/Vol] 0.2 10*3/uL Normal 0.0-0.4 [facility] Comment on above: Performed By: #### C REBEKA, CMP #### [facility] ([id number]) [address], [facility] [address] [place] [address] Eosinophils/100 WBC (Bld) 4.3 % Normal [facility] Comment on above: Performed By: #### C REBEKA, CMP #### [facility] ([id number]) [address], [facility] [address] [place] [address] Erythrocyte distribution width (RBC) [Ratio] 13.1 % Normal 11.5-15.0 [facility] Comment on above: Performed By: #### C REBEKA, CMP #### [facility] ([id number]) [address], [address] [place] [address] Hematocrit (Bld) [Volume fraction] 35.6 % Normal 35-47 [facility] Comment on above: Performed By: #### Tobi STALEY, CMP #### [facility] ([id number]) [address], [address] [place] [address] Hemoglobin (Bld) [Mass/Vol] 12.4 g/dL Normal 11.7-15.5 [facility] Comment on above: Performed By: #### C REBEKA, CMP #### [facility] ([id number]) [address], [facility] [address] [place] [address] Lymphocytes (Bld) [#/Vol] 1.7 10*3/uL Normal 1.0-3.5 [facility] Comment on above: Performed By: #### C REBEKA, CMP #### [facility] ([id number]) [address] [address] [place] [address] Lymphocytes/100 WBC (Bld) 31.2 % Normal [facility] Comment on above: Performed By: #### C REBEKA, CMP #### [facility] ([id number]) [address], [address] [place] [address] MCH (RBC) [Entitic mass] 33.3 pg Normal 27-34 [facility] Comment on above: Performed By: #### C REBEKA, CMP #### [facility] ([id number]) [address], [address] [place] [address] MCHC (RBC) [Mass/Vol] 34.7 g/dL Normal 32-36 [facility] Comment on above: Performed By: #### C REBEKA, CMP #### [facility] ([id number]) [address], [address] [place] [address] MCV (RBC) [Entitic vol] 96 fL Normal 80-100 [facility] Comment on above: Performed By: #### Tobi STALEY, CMP #### [facility] ([id number]) [address] [place] [address] Monocytes (Bld) [#/Vol] 0.5 10*3/uL Normal 0-0.9 [facility] Comment on above: Performed By: #### C REBEKA, CMP #### [facility] ([id number]) [address] [place] [address] Monocytes/100 WBC (Bld) 8.2 % Normal [facility] Comment on above: Performed By: #### Tobi STALEY, CMP #### [facility] ([id number]) [address] [place] [address] Neutrophils/100 WBC (Bld) 55.4 % Normal [facility] Comment on above: Performed By: #### Tobi STALEY, CMP #### [facility] ([id number]) [address], [address] [place] [address] Platelet mean volume (Bld) [Entitic vol] 8.2 fL Normal 7-12 [facility] Comment on above: Performed By: #### C BCA, CMP #### [facility] ([id number]) [address], [address] [place] [address] Platelets (Bld) [#/Vol] 284 10*3/uL Normal 150-450 [facility] Comment on above: Performed By: #### C BCA, CMP #### [facility] ([id number]) [address], [address] [place] [address] RBC COUNT 3.72 X10E12/L Low 3.80-5.20 [facility] Comment on above: Performed By: #### C BCA, CMP #### [facility] ([id number]) [address], [address] [place] [address] WBC (Bld) [#/Vol] 5.6 10*3/uL Normal 4.0-11.0 [facility] Comment on above: Performed By: #### C BCA, CMP #### [facility] ([id number]) [address], [address] [place] [address] COMPREHENSIVE METABOLIC PANE Rashi 11-09-2023 Albumin [Mass/Vol] 4.5 g/dL Normal 3.2-5.3 [facility] Comment on above: Performed By: #### C BCA, CMP #### [facility] ([id number]) [address], [address] [place] [address] ALP [Catalytic activity/Vol] 48 U/L Normal 39-130 [facility] Comment on above: Performed By: #### C BCA, CMP #### [facility] ([id number]) [address], [address] [place] [address] ALT [Catalytic activity/Vol] 14 U/L Normal 0-31 [facility] Comment on above: Performed By: #### C BCA, CMP #### [facility] ([id number]) [address], [address] [place] [address] Anion gap [Moles/Vol] 9 mmol/L Normal 5-15 [facility] Comment on above: Performed By: #### C BCA, CMP #### [facility] ([id number]) [address] [place] [address] AST [Catalytic activity/Vol] 20 U/L Normal 0-41 [facility] Comment on above: Performed By: #### C BCA, CMP #### [facility] ([id number]) [address], [address] [place] [address] Bilirubin [Mass/Vol] 0.5 mg/dL Normal 0.3-1.2 [facility] Comment on above: Performed By: #### C BCA, CMP #### [facility] ([id number]) [address], [address] [place] [address] Calcium [Mass/Vol] 9.2 mg/dL Normal 8.5-10.5 [facility] Comment on above: Performed By: #### C BCA, CMP #### [facility] ([id number]) [address] [place] [address] Chloride [Moles/Vol] 106 mmol/L Normal 98-109 [facility] Comment on above: Performed By: #### C BCA, CMP #### [facility] ([id number]) [address] [place] [address] CO2 [Moles/Vol] 28 mmol/L Normal 22-32 [facility] Comment on above: Performed By: #### C BCA, CMP #### [facility] ([id number]) [address], [address] [place] [address] Creatinine [Mass/Vol] 1.17 mg/dL High 0.40-1.00 [facility] Comment on above: Result Comment: METH OD TRACEABLE TO IDMS STANDARD Performed By: #### C BCA, CMP #### [facility] ([id number]) [address], [address] [place] [address] GFR/1.73 sq M.predicted among non-blacks MDRD (S/P/Bld) [Vol rate/Area] 50 mL/min/{1.73_m2} Low >59 [facility] Comment on above: Result Comment: Reported eGFR is based on the CKD-EPI 2020 equation that does not use a race coefficient. Performed By: #### C BCA, CMP #### [facility] ([id number]) [address], [address] [place] [address] Glucose [Mass/Vol] 110 mg/dL High 65-99 [facility] Comment on above: Performed By: #### C BCA, CMP #### [facility] ([id number]) [address] [place] [address] Potassium [Moles/Vol] 4.1 mmol/L Normal 3.5-5.0 [facility] Comment on above: Performed By: #### C BCA, CMP #### [facility] ([id number]) [address] [place] [address] Protein [Mass/Vol] 7.2 g/dL Normal 6.0-8.0 [facility] Comment on above: Performed By: #### C BCA, CMP #### [facility] ([id number]) [address] [place] [address] Sodium [Moles/Vol] 143 mmol/L Normal 134-146 [facility] Comment on above: Performed By: #### C BCA, CMP #### [facility] ([id number]) [address] [place] [address] Urea nitrogen [Mass/Vol] 18 mg/dL Normal 5-27 [facility] Comment on above: Performed By: #### C BCA, CMP #### [facility] ([id number]) [address] [facility] [place] [address] XR CHEST 2 VWSon 11-09-2023 XR CHEST 2 VWS XR CHEST 2 VWS History: Preop testing Exam/Technique: PA and lateral chest Comparison: None Findings: There is no evidence of active pulmonary or pleural disease. Cardiac and mediastinal contours are within normal limits. IMPRESSION: No evidence of active pulmonary disease demonstrated. Finalized by Lewis Lyn MD on 11/09/2023 10:52 AM Normal [facility] Consultation Noteon 10-25-19 Consultation Note [id number]#1.0 0TIFF Normal [facility] Consultation Noteon 10-03-19 Consultation Note [id number]#1.0 0TIFF Normal [facility] RAD - MISCon 10-03-2023 RAD - MISC [id number]#1.0 0TIFF Normal [facility] Consultation Noteon 09-29-19 Consultation Note [id number]#1.0 0TIFF Normal [facility] Consultation Noteon 09-21-19 Consultation Note [id number]#1.0 0TIFF Normal [facility] Dexa Scanson 09-21-2023 Dexa Scans [id number]#1.0 0TIFF Normal [facility] Consultation Noteon 09-12-19 Consultation Note [id number]#1.00 TIFF Normal [facility] Patient Logson 09-02-2023 Patient Logs [id number]#1.00 TIFF Normal [facility] Ambulatory Visit Summaryon 0 09-01-2023 [...] AM EST With: Anamaria Chinchilla MD Where: [place] [address]- \.br\ Medications\.br\ What How Much When Instructions\.br\ [...] for choosing us for your care.\.br\ \.br\ [facility] Consultation Noteon 09-01-19 Consultation Note [id number]#1.0 0TIFF Normal [facility] Family Medicine Office/Clini c Noteon [...] 96.3 fL (05/11/23) Chloride: 108 mmol/L (05/11/23) [place] Absolute: 0.4 E9/L (05/11/23) CO2: 27 mmol/L (05/11/23) [place] Auto: 7.8 % (05/11/23) Creatinine: 1.3 mg/dL [...] Ongoing Ag (more content not included)... Normal [facility] Comment on above: Result Comment: [...] Herbs. Spices. Seasoni (more content not included)... [facility] Consultation Noteon 08-24-19 24 Consultation Note [id number]#1.0 0TIFF [facility] RAD - CT Reporton 08-24-2023 RAD - CT Report [id number]#1.0 0TIFF [facility] Operative Reporton Operative Report [id number]#1.0 0TIFF [facility] Patient Correspondenceon Patient Correspondence [id number]#1.0 0TIFF [facility] Provider Letteron 08-12-2023 Provider Letter [address] [place], [place] [address] August 12, 2023 ISAURA METZGERHOLDER [address] [address] : [address] Das, The above patient has been evaluated at your request for preoperative clearance. After assessment of available pertinent labs and diagnostic tests, I feel this patient is medically optimized for surgery. Final discretion of whether the patient is cleared for surgery remains up to the surgeon/anesthesiologi st. Thank you, YISEL Vásquez [facility] Ambulatory Visit Summaryon 1 10-12-2022 Ambulatory Visit [...] EST With: Amor SHORT, Anamaria Harvey Where: [facility] Normal [address] \.br\ Medications\.br\ What How Much When [...] choosing us for your care.\.br\ \.br\ Nnamdi [facility] Family Medicine Office/Clini c [place] 08-11-2023 [facility] Medicine Office/Clinic Note HPI Staff Isaura is [...] 23-valent vaccine 06/25/2008 Recorded Normal [place] [facility] Comment on above: Result Comment: [...] rate/Area] 44 mL/min/1.73 m2 Low >=59mL/min/1.73 m2 [facility] Chem S Globulin (S) [Mass/Vol] 3.2 g/dL Normal 1.4 - 4.0 gm/dL FT Remisol Glucose [Mass/Vol] 93 mg/dL Normal 55 - 199 mg/dL [facility] Lipase [Catalytic activity/Vol] 46 U/L Normal 13 - 58 unit/L FT [facility] Potassium [Moles/Vol] 4.3 mmol/L Normal 3.5 - 5.3 mmol/L FT [facility] Protein [Mass/Vol] 7.5 g/dL Normal 6.0 - 7.8 gm/dL [facility] [place] [place] Remisol Sodium [Moles/Vol] 141 mmol/L Normal 135 [...] PM) Normal Negative [facility] UA Auto SS Desloge.plasma/Lith ium.RBC (Bld) [Mass ratio] 0-3 /HPF Normal 0-3/HPF [facility] UA Auto SS Mucus Ql (Urine sed) 2+ (05/11/23 12:05 PM) Normal [facility] UA Auto SS Nitrite Ql (U) Negative (05/11/23 12:05 PM) Normal Negative [facility] UA Auto SS pH (U) 7.0 *NA* (05/11/23 12:05 PM) Invalid Interpretation Code 5.0 - 9.0 [facility] UA Auto SS Protein (U) [Mass/Vol] Negative (05/11/23 12:05 PM) Normal Negative [facility] UA Auto SS Specific gravity (U) [Rel density] 1.010 *NA* (05/11/23 12:05 PM) Invalid Interpretation Code 1.005 - 1.030 [facility] UA Auto SS UA Spec Desc Clean Catch (05/11/23 12:05 PM) Normal [facility] UA Auto SS Urobilinogen Qn (U) 0.5809844 {Leon'U}/dL Normal 0.0 - 1.0 EU/dL [facility] UA Auto SS WBC Auto Ql (U) 1+ *ABN* (05/11/23 12:05 PM) Invalid Interpretation Code Negative [facility] UA Auto SS WBC LM.HPF (Urine sed) [#/Area] 0-5 /HPF Normal 0-5/HPF [facility] UA Auto SS CULTURE URINEon 07-06-2022 CULTURE URINE Culture Observations : LIGHT GROWTH OF MIXED GENITAL NAN. NO POTENTIAL PATHOGENS SEEN. Normal [facility] Comment on above: Performed By: #### U RCX #### [facility] [address] [place] [address] Dr. Melchor Brock UA (CLEAN/CATCH) MICROSCOPIC IF INDICATEon 07-06-2022 Bilirubin Ql (U) Negative Normal NEGATIVE [facility] Comment on above: Performed By: #### U MICRO, UARMICR #### [facility] Laboratory [address] [place] [address] Dr. Melchor Brock Clarity (U) CLEAR Normal CLEAR [facility] Comment on above: Performed By: #### U MICRO, UARMICR #### [facility] [address] [address] [address] Melchor Brock Color (U) LT. YELLOW Normal YELLOW [facility] Comment on above: Performed By: #### U MICRO, UARMICR #### [facility] [address] [place] [address] Dr. Melchor Brock Glucose Ql (U) Negative Normal NEGATIVE [facility] Comment on above: Performed By: #### U MICRO, UARMICR #### [facility] [address] [place] [address] Dr. Melchor Brock Hemoglobin Ql (U) TRACE-INTACT Abnormal NEGATIVE [facility] Comment on above: Performed By: #### U MICRO, UARMICR #### [facility] [address] [place] [address] Dr. Melchor Brock Ketones Ql (U) Negative Normal NEGATIVE [facility] Comment on above: Performed By: #### U MICRO, UARMICR #### [facility] [address] [place] [address] Dr. Melchor Brock LEUKOCYTES TRACE Abnormal NEGATIVE [facility] Comment on above: Performed By: #### U MICRO, UARMICR #### [facility] [address] [place] [address] Dr. Melchor Brock Nitrite Ql (U) Negative Normal NEGATIVE [facility] Comment on above: Performed By: #### U MICRO, UARMICR #### [facility] [address] [place] [address] Dr. Melchor Brock pH (U) 6.0 [pH] Normal 5-9 [facility] Comment on above: Performed By: #### U MICRO, UARMICR #### [facility] [address] [place] [address] Dr. Melchor Brock SPEC GRAVITY 1.020 Normal 1.005-<=1.025 [facility] Comment on above: Performed By: #### U MICRO, UARMICR #### [facility] [address] [place] [address] Dr. Melchor Brock UA PROTEIN Negative Normal NEGATIVE/ TRACE [facility] Comment on above: Performed By: #### U MICRO, UARMICR #### [facility] [address] [place] [address] Dr. Melchor Brock UR MICRO IND INDICATED Normal [facility] Comment on above: Performed By: #### U MICRO, UARMICR #### [facility] [address] [place] [address] Dr. Melchor Brock Urobilinogen Qn (U) 0.2 {Leon'U}/dL Normal 0.2 - 1. 0 [facility] Comment on above: Performed By: #### U MICRO, UARMICR #### [facility] [address] [place] [address] Dr. Melchor Brock URINE MICROSCOPIC ONLYon BACTERIA NONE SEEN Normal NONE SEEN [facility] Comment on above: Performed By: #### G SHON, LIPID #### [facility] [address] [place] [address] Dr. Melchor Borck Bacteria identified Cx Nom (U) CX ALREADY ORDERED Normal [facility] Comment on above: Performed By: #### G SHON, LIPID #### [facility] [address] [place] [address] Dr. Melchor Brock CAST NONE SEEN Normal NONE SEEN [facility] Comment on above: Performed By: #### G SHON, LIPID #### [facility] [address] [place] [address] Dr. Melchor Brock Crystals LM Nom (Urine sed) NONE SEEN Normal NONE SEEN [facility] Comment on above: Performed By: #### G SHON, LIPID #### [facility] [address] [place] [address] Dr. Melchor Brock Epithelial cells LM Ql (Urine sed) RARE Normal NONE SEEN /RARE [facility] Comment on above: Performed By: #### G SHON, LIPID #### [facility] [address] [place] [address] Dr. Melchor Brock MUCOUS NONE SEEN Normal NONE SEEN [facility] Comment on above: Performed By: #### G SHON, LIPID #### [facility] [address] [place] [address] Dr. Melchor Brock RBC 0-2 Normal 0-2 [facility] Comment on above: Performed By: #### G SHON, LIPID #### [facility] [address] [place] [address] Dr. Melchor Brock WBC 0-2 Abnormal NONE SEEN [facility] Comment on above: Performed By: #### G SHON, LIPID #### [facility] [address] [place] [address] Dr. Melchor Brock MG MAMM SCREEN 3D SARAHI CADon 07-25-2022 MG MAMM SCREEN 3D SARAHI CAD Patient: ISAURA HAYDEN Exam Date: 03/15/2022 : 1950 Gender:F Ordering : DR FARA BOOKER . Admission #: [id number] Family : Order #: [id number] CLICK HERE TO VIEW EXAM RADIOLOGY REPORT [...] lung cancer at age 72. LOCATION: [facility] BREAST COMPOSITION: Heterogeneously dense,which may [...] M.D. on 03/15/2022 at 11:41 Normal [facility] GLUCOSE BLOODon 02-09-2022 Glucose [Mass/Vol] 99 mg/dL Normal 74-106 [facility] Comment on above: Performed By: #### G SHON, LIPID #### [facility] [address] [address] [address] Melchor Brock LIPID PROFILEon 02-09-2022 CHOL-HDL RATIO NORM SEE BELOW Normal [facility] Comment on above: Result Comment: 3.3 - 4.4 LOW RISK 4.4 - 7.1 AVERAGE RISK 7.1 - 11.0 MODERATE RISK >11.0 HIGH RISK Performed By: #### G SHON, LIPID #### [facility] [address] [address] [address] Melchor Brock Cholesterol [Mass/Vol] 202 mg/dL Critically high <=200 [facility] Comment on above: Performed By: #### G SHON, LIPID #### [facility] [address] [address] [address] Melchor Brock Cholesterol in HDL [Mass/Vol] 56 mg/dL Normal 40-60 [facility] Comment on above: Performed By: #### G SHON, LIPID #### [facility] [address] [address] [address] Melchor Brock Cholesterol in LDL [Mass/Vol] 112.6 mg/dL Normal [facility] Comment on above: Performed By: #### G SHON, LIPID #### [facility] [address] [address] [address] Meclhor Brock Cholesterol.total/C holesterol in HDL [Mass ratio] 3.6 {ratio} Normal [facility] Comment on above: Performed By: #### G SHON, LIPID #### [facility] [address] [address] [address] Melchor Brock HDL NORMAL > or = 60 mg/dl - LO W CARDIOVASCULAR RISK <40 mg/dl - HIGH CARDIOVASCULAR RISK Normal [facility] Comment on above: Performed By: #### G SHON, LIPID #### [facility] [address] [address] [address] Melchor Brock LDL CALC NORMAL SEE BELOW Normal [facility] Comment on above: Result Comment: <100 mg/dl OPTIMAL 100 - 129 mg/dl NEAR OR ABOVE OPTIMAL 130 - 159 mg/dl BORDERLINE HIGH 160 - 189 mg/dl HIGH >190 mg/dl VERY HIGH Performed By: #### G SHON, LIPID #### [facility] [address] [address] [address] Melchor Brock Triglyceride [Mass/Vol] 167 mg/dL Critically high <=150 [facility] Comment on above: Performed By: #### G SHON, LIPID #### [facility] [address] [address] [address] Melchor Brock VLDL CALC 33.4 mg/dL Normal [facility] Comment on above: Performed By: #### G SHON, LIPID #### [facility] [address] [address] [address] Melchor Brock LIPID PROFILEon 11-05-2021 CHOL-HDL RATIO NORM SEE BELOW Normal [facility] Comment on above: Result Comment: 3.3 - 4.4 LOW RISK 4.4 - 7.1 AVERAGE RISK 7.1 - 11.0 MODERATE RISK >11.0 HIGH RISK Performed By: #### L IPID, BMP #### [facility] [address] [address] [address] Melchor Brock Cholesterol [Mass/Vol] 244 mg/dL Critically high <=200 [facility] Comment on above: Performed By: #### L IPID, BMP #### [facility] [address] [place] [address] Dr. Melchor Brock Cholesterol in HDL [Mass/Vol] 60 mg/dL Normal 40-60 [facility] Comment on above: Performed By: #### L IPID, BMP #### [facility] [address] [place] [address] Dr. Melchor Brock Cholesterol in LDL [Mass/Vol] 158.4 mg/dL Normal [facility] Comment on above: Performed By: #### L IPID, BMP #### [facility] [address] [place] [address] Dr. Melchor Brock Cholesterol.total/C holesterol in HDL [Mass ratio] 4.1 {ratio} Normal [facility] Comment on above: Performed By: #### L IPID, BMP #### [facility] [address] [address] [address] Melchor Brock HDL NORMAL > or = 60 mg/dl - LO W CARDIOVASCULAR RISK <40 mg/dl - HIGH CARDIOVASCULAR RISK Normal [facility] Comment on above: Performed By: #### L IPID, BMP #### [facility] [address] [place] [address] Dr. Melchor Brock LDL CALC NORMAL SEE BELOW Normal [facility] Comment on above: Result Comment: <100 mg/dl OPTIMAL 100 - 129 mg/dl NEAR OR ABOVE OPTIMAL 130 - 159 mg/dl BORDERLINE HIGH 160 - 189 mg/dl HIGH >190 mg/dl VERY HIGH Performed By: #### L IPID, BMP #### [facility] [address] [address] [address] Melchor Brock Triglyceride [Mass/Vol] 128 mg/dL Normal <=150 [facility] Comment on above: Performed By: #### L IPID, BMP #### [facility] [address] [address] [address] Melchor Brock VLDL CALC 25.6 mg/dL Normal [facility] Comment on above: Performed By: #### L IPID, BMP #### [facility] [address] [address] [address] Melchor Brock PROF CHEM 8 (BAS METB)on Anion gap [Moles/Vol] 10.7 mmol/L Normal [facility] Comment on above: Performed By: #### L IPID, BMP #### [facility] [address] [place] [address] Dr. Melchor Brock Calcium [Mass/Vol] 7.8 mg/dL Critically low 8.4-10.2 [facility] Comment on above: Performed By: #### L IPID, BMP #### [facility] [address] [address] [address] Melchor Brock Chloride [Moles/Vol] 103 mmol/L Normal 98-107 [facility] Comment on above: Performed By: #### L IPID, BMP #### [facility] [address] [address] [address] Melchor Brock CO2 [Moles/Vol] 28.4 mmol/L Normal 22.0-30.0 [facility] Comment on above: Performed By: #### L IPID, BMP #### [facility] [address] [address] [address] Melchor Brock Creatinine [Mass/Vol] 1.05 mg/dL Critically high 0.52-1.04 [facility] Comment on above: Performed By: #### L IPID, BMP #### [facility] [address] [address] [address] Melchor Brock EGFR-AF ISRAELI >60 Normal >=60 [facility] Comment on above: Performed By: #### L IPID, BMP #### [facility] [address] [address] [address] Melchor Brock EGFR-NON AF ISRAELI 52 mL/min/1.73m2 Critically low >=60 [facility] Comment on above: Performed By: #### L IPID, BMP #### [facility] [address] [address] [address] Melchor Brock Glucose [Mass/Vol] 98 mg/dL Normal 74-106 [facility] Comment on above: Performed By: #### L IPID, BMP #### [facility] [address] [address] [address] Melchor Brock Potassium [Moles/Vol] 4.1 mmol/L Normal 3.4-5.0 [facility] Comment on above: Performed By: #### L IPID, BMP #### [facility] [address] [address] [address] Melchor Brock Sodium [Moles/Vol] 138 mmol/L Normal 137-145 [facility] Comment on above: Performed By: #### L IPID, BMP #### [facility] [address] [address] [address] Melchor Brock Urea nitrogen [Mass/Vol] 15.0 mg/dL Normal 7.0-17.0 [facility] Comment on above: Performed By: #### L IPID, BMP #### [facility] [address] [address] [address] Melchor Brock Urea nitrogen/Creatinine [Mass ratio] 14.3 mg/mg Normal [facility] Comment on above: Performed By: #### L IPID, BMP #### [facility] [address] [address] [address] Melchor Brock ECHOCARDIO M/2D COMPLETEon 0 10-05-2021 ECHOCARDIO M/2D COMPLETE Patient: ISAURA HAYDEN Exam Date: 10/05/2021 : 1950 Gender:F Ordering : DR ANJELICA GAMBINO . Admission #: [id number] Family : Order #: [id number] CLICK HERE TO VIEW EXAM ECHOCARDIOGRAM REPORT [...] Area(A4C): 20.70 cm2 Left Atrium Systolic Volume(A2C): 64484 mm3 Left Atrium Systolic Volume(A4C): 08083 mm3 Mitral Valve MV E to A Ratio: 1.10 Deceleration [place]: 7410 mm/s2 Mitral Valve A-Wave Peak Velocity: [...] Dove M.D. on 10/06/2021 at 08:32 Normal [facility] XR DEXA BONE DENSITYon 09-18 XR DEXA [...] TILLMAN Date: 2021-09-18 10:56 Normal [facility] DEXA BONE DENSITY AXIAL SKEL ETONon 09-12-2017 [...] by:ARLEY Valenciaigned by:Lora Mondragon MD09/12/18Final result Normal [facility] DIGITAL SCREEN BILATERAL on 09-12-2017 [facility] DIGITAL SCREEN BILATERAL REPORT: BILATERAL DIGITAL SCREENING MAMMOGRAM WITH ASSISTANCE OF CADINDICATION: ScreeningFINDINGS: Compared to 07/30/2016, 04/17/2015, 04/16/2014, 10/26/2011 and 06/09/2010. The breasts are heterogeneously dense. No suspicious calcifications, mass lesions, architectural distortion or skin thickening.Final report electronically signed by Lora Mondragon on 09/12/2017 5:38 PMIMPRESSION: No mammographic evidence of malignancy. (CATEGORY 1 - ACR BI-RADS: NEGATIVE)Interpreted by:ARLEY Valenciaigned by:Lora Mondragon MD09/12/18Final result [facility] Vital Signs Date Time Vital Sign Value Performing Clinician Facility 08-28-2024 09:11-0500 Body mass index (BMI) [Ratio] 29.01 kg/m2 [employer] Work Phone: [facility] 08-28-2024 09:11-0500 Body weight 76.66 kg [employer] Work Phone: [facility] 08-28-2024 09:11-0500 Diastolic blood pressure 70 mm[Hg] Bentley Pippa DO Work Phone: [facility] 08-28-2024 09:11-0500 Systolic blood pressure 120 mm[Hg] Bentley Pippa DO Work Phone: [facility] 12-27-2023 10:45-0400 Body height 162.6 cm Mary GOMEZ Work Phone: [facility] 12-27-2023 10:45-0400 Body mass index (BMI) [Ratio] 28.65 kg/m2 Mary [facility]nington PA [facility] 12-27-2023 10:45-0400 Body temperature 97.81 [degF] Mary Pennington PA Work Phone: [facility] [employer] [facility] 12-27-2023 10:45-0400 Body weight 75.75 kg Mary Pennington PA Work Phone: [facility] [employer] 12-27-2023 10:45-0400 Diastolic blood pressure 71 mm[Hg] Mary Pennington PA [facility] 12-27-2023 10:45-0400 Heart rate 57 /min Mary Pennington PA Work Phone: [facility] [facility] 12-27-2023 10:45-0400 Respiratory rate 16 /min Mary Pennington PA Work Phone: [facility] [employer] 12-27-2023 10:45-0400 SaO2% (BldA) [Mass fraction] 99 % Mary Pennington PA [facility] 12-27-2023 10:45-0400 Systolic blood pressure 148 mm[Hg] Mary Pennington PA [facility] 11-29-2023 10:41-0400 Body height 162.6 cm Mary Pennington PA [facility] 11-29-2023 10:41-0400 Body mass index (BMI) [Ratio] 28.48 kg/m2 Mary Pennington PA [facility] 11-29-2023 10:41-0400 Body temperature 97.81 [degF] Mary Pennington PA [facility] 11-29-2023 10:41-0400 Body weight 75.3 kg Mary Pennington PA Work Phone[facility] 11-29-2023 10:41-0400 Diastolic blood pressure 71 mm[Hg] Mary Pennington PA Work Phone: [facility] [facility] 11-29-2023 10:41-0400 Heart rate 57 /min Mary Pennington PA Work Phone: [facility] [employer] [employer] [facility] 11-29-2023 10:41-0400 Respiratory rate 16 /min Mary Sigalane PA Work Phone: [facility] [facility] 11-29-2023 10:41-0400 SaO2% (BldA) [Mass fraction] 100 % Mary Pennington PA Work Phone: [facility] [facility] 11-29-2023 10:41-0400 Systolic blood pressure 142 mm[Hg] Mary Sigalane PA Work Phone: [facility] [facility] 11-07-2023 10:32-0400 Body height 162.6 cm [facility] [facility] 11-07-2023 10:32-0400 Body mass index (BMI) [Ratio] 28.15 kg/m2 [facility] 11-07-2023 10:32-0400 Body weight 74.39 kg [facility] [facility] 10-26-2023 14:38-0500 Body temperature 98.29 [degF] Nabil Lord MD Work Phone: [facility] [facility] 10-26-2023 14:38-0500 Diastolic blood pressure 90 mm[Hg] Nabil Lord MD Work Phone: [facility] 10-26-2023 14:38-0500 Heart rate 67 /min Nabil Lord MD Work Phone: [facility] 10-26-2023 14:38-0500 SaO2% (BldA) [Mass fraction] 98 % Nabil Lord MD Work Phone: [facility] 10-26-2023 14:38-0500 Systolic blood pressure 158 mm[Hg] Nabil Lord MD [facility] Phone: [facility] 10-26-2023 14:35-0500 Body mass index (BMI) [Ratio] 29.18 kg/m2 Nabil Lord MD Work Phone: [facility] 10-26-2023 14:35-0500 Body weight 77.11 kg Nabil Lord MD Work Phone: [facility] Encounters Encounter Date Encounter Type Care Provider Facility Start: 08-01-2025 ambulatory MD Anamaria Chinchilla Facil ity:[facility] Start: 01-28-2025 ambulatory MD Anamaria Chinchilla Facil ity:[facility] Start: 10-05-2024 End: 10-05-2024 Clinisync Result Encounter Bentley Pippa DO Work Phone: [facility] Unsolicited Start: 10-05-2024 End: 10-05-2024 Clinisync Result Encounter Bentley Pippa DO Work Phone: [facility] Unsolicited Start: 09-17-2024 End: 09-17-2024 ambulatory Violet Lauren Facility: [facility] Start: 09-11-2024 End: 09-11-2024 ambulatory Kushal Keith Facility:[facility] Start: 09-10-2024 End: 09-10-2024 ambulatory Anamaria Chinchilla [facility] Start: 08-28-2024 End: 08-28-2024 Bamboo flowsheet Bentley [...] Start: 08-27-2024 End: 08-27-2024 ambulatory [facility] Start: 08-09-2024 End: 08-09-2024 Lab Drop off Anamaria Chinchilla [facility] Start: 08-09-2024 End: 08-09-2024 ambulatory [facility] Start: 07-30-2024 End: 07-30-2024 ambulatory MD [facility]illa [facility] Start: 07-30-2024 End: 07-30-2024 ambulatory MD [facility]illa [facility] Start: 07-13-2024 End: 07-13-2024 ambulatory VIPUL OBANDO [facility] Start: 05-07-2024 End: 05-07-2024 Lab Drop off Anamaria Chinchilla [facility] Start: 05-07-2024 End: 05-07-2024 ambulatory MD Anamaria Chinchilla [facility] Start: 12-27-2023 End: 12-27-2023 ambulatory [facility] Start: 12-27-2023 End: 12-27-2023 Postop follow up visit related to original px Mary Pennington PA Work Phone: [facility] Comment on above: Encounter for postop erative care (Primary Dx) Start: 11-29-2023 End: 11-29-2023 ambulatory [facility] Start: 11-29-2023 End: 11-29-2023 Postop follow up visit related to original px Mary Pennington PA Work Phone: [facility] Comment on above: Encounter for postop erative care (Primary Dx) Start: 11-14-2023 End: 11-14-2023 Evaluation and management of inpatient [facility] Start: 11-14-2023 End: 11-14-2023 Evaluation and management of inpatient NABIL LORD [facility] Start: 11-09-2023 Encounter for other preprocedural examination NABIL LORD [facility] Start: 11-09-2023 End: 11-10-2023 ambulatory NABIL Tobi CAROLYN [facility] Start: 11-07-2023 End: 11-07-2023 Evaluation and management of inpatient ANEJLICA Bergeron GAMBINO [facility] Start: 11-07-2023 End: 11-07-[address] [facility] Phone Call Provider 2 [facility] Pre-Admission Clinic On [facility] Start: 10-28-2023 Patient encounter status Nabil Lord MD Work Phone: [facility] Start: 10-28-2023 Telephone encounter Nabil andersen MD Work Phone: [facility] Start: 10-26-2023 End: 10-26-2023 ambulatory NABIL LORD [facility] Start: 10-26-2023 End: 10-26-2023 Office outpatient new 60 minutes Nbail Lord MD Work Phone: [facility] Comment on above: Endometrial thickeni ng on ultrasound (Primary Dx); Postmenopausal bleeding Start: 10-19-2023 ambulatory ANJELICA Rubio [facility] Start: 10-19-2023 Telephone encounter Linette Ga RN [facility] Start: 10-11-2023 End: 10-11-2023 ambulatory BENTLEY DAS Not Available Start: 09-01-2023 End: 09-01-2023 ambulatory [facility] Start: 08-11-2023 End: 08-11-2023 ambulatory MD [facility] Chinchilla [facility] Start: 05-11-2023 End: 05-11-2023 Lab Drop off Violet Lauren [facility] Start: 08-03-2022 End: 08-04-[address] [...] Start: 09-12-2017 End: 09-13-2017 [facility] Procedures Date Procedure Procedure Detail Performing Clinician Start: 10-05-2024 [facility]UM Bentley de la o DO Work Phone: Start: 11-29-2023 Follow-up visit Follow-up DEMETRIS PENNINGTON Start: 08-22-2022 Hysterectomy Anamaria Terri s Start: 09-12-2017 Screening mammograph y bi 2-view [...] Visit [facility] [address] [place] [id number] Bentley Das DO [address] [place] [address] [facility] Start: 12-26-2024 Adult BMI Screening Adult BMI Screen ing [facility] Start: 11-28-2024 Adult BMI Screening Adult BMI Screen ing [facility] Start: 11-13-2024 Tobacco Screening Tobacco Screening [facility] Start: 10-25-2024 Adult BMI Screening Adult BMI Screen ing [facility] Start: 10-25-2024 Tobacco Screening Tobacco Screening [facility] Start: 08-28-2024 End: 08-28-2025 DXA Skeletal system Views for bone density DEXA bone density Imaging Routine Postmenopausal state Expected: 08/28/2024 (Approximate), Expires: 08/28/2025 [facility] Comment on above: Expected: 08/28/2024 (Approximate), Expires: 08/28/2025 Start: 08-28-2024 End: 10-26-2025 MG Breast - bilateral Screening Bilateral screening mammogram Imaging Routine Breast cancer screening by mammogram Expected: 08/28/2024, Expires: 10/26/2025 [facility] Work Phone: Comment on above: Expected: 08/28/2024 , Expires: 10/26/2025 Start: 08-28-2024 End: 08-28-2024 Patient encounter procedure 08/28/2024 9:00 AM EST Office Visit [facility] [address] [place] [address] Bentley Das, [address] [place] [address] Arrived [facility] [employer] [facility] [facility] Comment on above: Arrived Start: 04-22-2024 Influenza vaccination Influenza Vacc ine [facility] Start: 12-27-2023 End: 12-27-2023 Patient encounter procedure 12/27/2023 11:00 AM EDT Office Visit [facility] [address] [place] [address] Mary Pennington PA [address] [place] [address] [facility] Mck[facility] - Medical Oncology Start: 11-29-2023 End: 11-29-2023 Patient encounter procedure 11/29/2023 10:30 AM EDT Office Visit Lurdes Mckenzie [facility] - Medical Oncology [address] [place] [address] Mary Pennington PA [address] [place], [place] [id number] Lurdes Mckenzie [facility] - Medical Oncology Start: 11-14-2023 End: 11-14-2023 Admission to same day surgery center 11/14/2023 11:00 AM EDT - 11/14/2023 1:00 PM EDT Surgery [facility] Surgery [address] [place] [address] Nabil Lord MD [address] [place], [place] [id number] DAVINCI HYSTERECTOMY SALPINGO OOPHORECTOMY(WITH FROZEN SECTION AND POSSIBLE STAGING) [facility] Division [facility] Surgery Comment on above: DAVINCI HYSTERECTOMY SALPINGO OOPHORECTOMY(WITH FROZEN SECTION AND POSSIBLE STAGING) Start: 11-14-2023 End: 11-14-2023 DAVINCI HYSTERECTOMY SALPINGO OOPHORECTOMY DAVINCI HYSTERECTOMY SALPINGO OOPHORECTOMY THICKENED ENDOMETRUM/POST MENOPAUSAL BLEEDING/CERVICAL STENOSIS 11/14/2023 11:00 AM EDT [facility] Start: 11-14-2023 Subsequent hospital visit by physician 11/14/2023 11:00 AM EDT Hospital Encounter [facility] Surgery [address] [place] [address] Nabil Lord MD [email or web address] [place], [place] [id number] [facility] Division [facility] Surgery Start: 11-07-2023 End: 11-07-2023 Admission to establishment 11/07/2023 10:30 AM EDT Support Visit [facility] On [address] [place] [address] [facility] Start: 10-28-2023 End: 10-27-2024 XR Chest PA and Lateral X-ray chest 2 views Imaging Routine Preop testing Expected: 10/28/2023, Expires: 10/27/2024 [facility] Comment on above: Expected: 10/28/2023 , Expires: 10/27/2024 Start: 10-26-2023 End: 10-26-2023 Patient encounter procedure 10/26/2023 3:00 PM EST Office Visit [facility] On[facility] [address] [place] [address] [address] [place] [phone] Nabil Lord MD [address] [place] [address], [address] [place] [address] [facility] Start: 04-22-2023 Influenza vaccination Influenza Vacc ine [facility] Start: 08-04-2022 Adult BMI Screening Adult BMI Screen ing [facility] Start: 2017 Fall Risk Screening Fall Risk Screen ing [facility] Start: 2002 Administration of varicella zoster vaccine Zoster (Shingles) Vaccine (1 of 2) [facility] Start: 1971 DTaP,Tdap and Td Vaccines (1 - Tdap) DTaP,Tdap and Td Vaccines (1 - Tdap) [facility] Start: 1970 Adult BMI Follow Up Plan Adult BMI F ollow Up Plan [facility] Start: 1964 Depression Screening Depression Scre ening [facility] Start: 1964 Tobacco Screening Tobacco Screening [facility] Start: 1952 Medicare Annual Well ness Visit Medicare Annual Wellness Visit [facility] End: 10-27-2024 CBC W Auto Differential panel - Blood CBC with auto diff Lab Routine Preop testing 1 Occurrences starting 10/28/2023 until 10/27/2024 [facility] Work Phone: Comment on above: 1 Occurrences starti ng 10/28/2023 until 10/27/2024 End: 10-27-2024 Comprehensive metabolic 2000 panel - Serum or Plasma Comprehensive metabolic panel Lab Routine Preop testing 1 Occurrences starting 10/28/2023 until 10/27/2024 [facility] Comment on above: 1 Occurrences starti ng 10/28/2023 until 10/27/2024 End: 10-27-2024 ECG 12 lead ECG 12 lead ECG Routine Preop testing 1 Occurrences starting 10/28/2023 [facility] on above: 1 Occurrences starti ng 10/28/2023 until 10/27/2024 Immunizations Immunization Date Immunization Notes Care Provider Jailyn martinez 07-24-2019 pneumococcal polysaccharide vaccine, 23 valent Anamaria Amor [facility] 07-21-2018 pneumococcal conjuga te vaccine, 13 valent Anamaria Amor [facility] 11-08-2016 hepatitis A vaccine, adult dosage Anamaria Chinchilla [facility] 05-05-2016 hepatitis A vaccine, adult dosage Anamaria Chinchilla [facility] 07-12-2014 influenza virus vaccine, unspecified formulation Linette Ga RN [facility] 07-12-2014 influenza, injectabl e, quadrivalent, preservative free Bentley Pippa DO Work Phone: [facility] 06-05-2013 influenza virus vaccine, unspecified formulation Anamaria Chinchilla [facility] 06-05-2013 influenza, seasonal, injectable Bentley Pippa DO Work Phone: [facility] 05-18-2012 influenza virus vaccine, unspecified formulation Anamariamichelle Chinchilla [facility] 05-18-2012 influenza, seasonal, injectable Bentley Pippa DO Work Phone: [facility] 05-17-2011 influenza virus vaccine, unspecified formulation Anamaria Chinchilla [facility] 05-17-2011 influenza, seasonal, injectable Bentley Pippa DO Work Phone: [facility] 06-25-2008 pneumococcal polysaccharide vaccine, 23 valent Anamaria Chinchilla [facility] NEGATED: Highlighted row has not occurred!07-30-2024 influenza virus vaccine, unspecified formulation Anamaria Chinchilla [facility] NEGATED: Highlighted row has not occurred!05-30-2023 influenza virus vaccine, unspecified formulation Anamaria Chinchilla [facility] NEGATED: Highlighted row has not occurred!12-01-2022 SARS-CoV-2 mRNA (tozinameran 5y-11y) vaccine Violet Lauren [facility] Payers Date Payer Category Payer Medicare (Managed Care) [employer] [id number] 2017 Medicare [id number] 2017 Unknown [id number] 2017 Unknown 2014 Medicare [id number] 1959 Unknown [id number] 1952 Unknown [id number] 2.16.840.1.515921.3.579.2. 593 1952 Unknown [id number] 2.16.840.1.362435.3.579.2. 593 1952 Unknown [id number] 2.16.840.1.304499.3.579.2. 593 1952 Unknown [id number] 2.16.840.1.197232.3.579.2. 593 1952 Unknown [id number] 2.16.840.1.202944.3.579.2. 593 1952 Unknown [id number] 2.16.840.1.858802.3.579.2. 593 1952 Unknown [id number] 2.16.840.1.405545.3.579.2. 593 1952 Unknown [id number] 2.16.840.1.404909.3.579.2. 593 1952 Unknown [id number] 2.16.840.1.698141.3.579.2. 1286 1952 Unknown [id number] 2.16.840.1.477440.3.579.2. 1286 1952 Unknown [id number] 2.16.840.1.772522.3.579.2. 1286 1952 Unknown [id number] 2.16.840.1.585456.3.579.2. 1286 1952 Unknown [id number] 2.16.840.1.141881.3.579.2. 1286 1952 Unknown [id number] 2.16.840.1.090193.3.579.2. 1286 1952 Unknown [id number] 2.16.840.1.933718.3.579.2. 1286 1952 Unknown [id number] 2.16.840.1.204953.3.579.2. 1286 1952 Unknown [id number] 2.16.840.1.052732.3.579.2. 1286 1952 Unknown [id number] 2.16.840.1.813510.3.579.2. 1286 1952 Unknown [id number] 2.16.840.1.744775.3.579.2. 1286 1952 Unknown [id number] 2.16.840.1.293752.3.579.2. 727 1952 Unknown [id number] 2.16.840.1.780110.3.579.2. 727 1952 Unknown [id number] 2.16.840.1.119824.3.579.2. 72 1952 Unknown [id number] 2.16.840.1.538187.3.579.2. 727 1952 Unknown [id number] 2.16.840.1.584488.3.579.2. 727 1952 Unknown [id number] 2.16.840.1.027836.3.579.2. 727 1952 Unknown [id number] 2.16.840.1.921099.3.579.2. 727 1952 Unknown [id number] 2.16.840.1.014210.3.579.2. 727 1952 Unknown [id number] 2.16.840.1.520767.3.579.2. 727 1952 Unknown [id number] 2.16.840.1.865557.3.579.2. 727 1952 Unknown [id number] 2.16.840.1.165403.3.579.2. 72 1952 Unknown [id number] 2.16.840.1.995448.3.579.2. 1259 1952 Unknown [id number] 2.16.840.1.567635.3.579.2. 1259 1952 Unknown [id number] 2.16.840.1.542789.3.579.2. 196 1952 Unknown [id number] 2.16.840.1.874342.3.579.2. 727 1952 Unknown [id number] 2.16.840.1.167454.3.579.2. 727 1952 Unknown [id number] 2.16.840.1.828542.3.579.2. 727 Social History Date Type Detail Facility Start: 05-11-2023 End: 11-07-2023 Tobacco smoking status Never smoked tobacco (finding) [facility] Comment on above: denies denies use. Tobacco smoking status Never [facility] Comment on above: denies Start: 10-02-2020 End: 10-11-2023 Sex Assigned At Female [facility] Start: 10-11-2023 End: 11-14-2023 Alcoholic beverage intake Current drinker of alcohol (finding) [facility] Start: 10-02-2020 End: 10-11-2023 Alcoholic beverage intake [facility] Start: 1950 Sex assigned at Not on file [facility] History of tobacco use Passive smoker [facility] Start: 01-12-2018 End: 11-07-2023 Tobacco use and exposure Smokeless tobacco non-user [facility] Start: 1950 Sex assigned at Female [facility] Start: 10-24-2023 Gender identity Identifies as female gender (finding) [facility] Clinical Notes 08-05-2022 to 08-28-2024 Maryanne Mancia [...] Daily aspirin 81 mg, Every other day Dfyhocu-Otuwnnkvbe-Tbbkkvt D (VITAMIN D3/CALCIUM/PHOSPHORUS PO) 1 each, Daily Denosumab (PROLIA SC) 1 Units, Every 6 months Durysta 10 mcg, As needed losartan (COZAAR) 100 mg, Daily [place]-3 500 mg rosuvastatin (CRESTOR) 20 mg ALLERGIES Allergies Allergen Reactions Hydromorphone Unknown PROBLEMS Active Ambulatory Problems Diagnosis Date Noted Age-related osteoporosis without current pathological fracture ([facility]) 01/31/2023 Arthritis 12/27/2016 Hypercholesterolemia (CMS/HCC) 12/27/2016 Hypertension (CMS/HCC) 01/31/2023 Iron deficiency anemia 12/27/2016 TIA (transient ischemic attack) 01/31/2023 History of colon polyps 02/01/2023 Hyperlipidemia (CMS/HCC) 02/23/2023 Resolved Ambulatory Problems Diagnosis Date Noted No Resolved Ambulatory Problems Past Medical History: Diagnosis Date Bronchitis Capillary angioma Cataracts, bilateral Chicken pox Family history of cancer Gallstone pancreatitis 2016 Glaucoma (CMS/[facility]) Hemorrhoids 2013 High blood pressure (CMS/HCC) High [...] History: Procedure Laterality Date CHOLECYSTECTOMY 2017 COLONOSCOPY 2012 tubular adenoma/colon polyp COLONOSCOPY 02/16/2023 [...] nursing note reviewed. Exam conducted with a estimator lumber present. Vitals: Estimated body mass index is [...] Bentley Das DO documented in this encounter [facility] 08-09-2024 Note Nurse Consultation N ote Reason [...] Recorded pneumococcal 23-valent vaccine 06/25/2008 Recorded [facility] 07-30-2024 Note Patient Education Cardiovascular [...] Keep all follow-up visits. Medicines ??? Take vhbh-dwy-egvtlbj and prescription medicines only as told by [...] Hypertension is a (more content not included)... [facility] 07-13-2024 Note Patient Education Infectious [...] these instructions at home: Medicines ??? 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 ??? Do not touch your eyes, nose, [...] provider. Document Revised: 11/04/2021 Document Reviewed: 11/04/2021 [employer] Patient Education ? 2023 e27. [facility] 12-27-2023 History of Presen t [...] thigh- toddler & child, groin-age 15 CHOLECYSTECTOMY 1999' COLONOSCOPY 2022 COLONOSCOPY AND POLYPECTOMY 01/12/2018 Performed by Nitesh Littlejohn MD at [facility] ROBOTIC ASSISTED HYSTERECTOMY, BILATERAL SALPINGO OOPHORECTOMY, PELVIC WASHINGS Bilateral 11/14/2023 Performed by Nabil Lord MD at [facility] HEMORROIDECTOMY 1999' SKIN BIOPSY Right 2017 thigh TONSILLECTOMY age [...] - Inability: Never True Re[facility] [place] [facility] Review of Symptoms: [...] *This note was completed using a voice pharmaceutical assistant system. Every effort was made to ensure accuracy. However, inadvertent computerized pharmaceutical assistant errors may be present. .Total time spent was 20 minutes: Preparing to see the patient (e.g., review of tests) Performing a medically appropriate examination and/or evaluation Counseling and educating the patient/family/caregiver Documenting clinical information in the electronic or other health record Care coordination (not separately reported) Mary Pennington PA-C, RD, IF JASON Zaragoza 12/27/23 1109 documented in this encounter [facility] [employer] 11-29-2023 History of Presen t illness Narrative [...] 01/12/2018 Performed by Nitesh Littlejohn MD at [facility] ROBOTIC ASSISTED HYSTERECTOMY, BILATERAL SALPINGO OOPHORECTOMY, PELVIC WASHINGS Bilateral 11/14/2023 Performed by Nabil Lord MD at [facility] HEMORROIDECTOMY 1999's SKIN BIOPSY Right 2017 [...] *This note was completed using a voice pharmaceutical assistant system. Every effort was made to ensure accuracy. However, inadvertent computerized pharmaceutical assistant errors may be present. .Total time spent was 20 minutes: Preparing to see the patient (e.g., review of tests) Performing a medically appropriate examination and/or evaluation Counseling and educating the patient/family/caregiver Documenting clinical information in the electronic or other health record Care coordination (not separately reported) Mary Pennington PA-C, RD, IF JASON Zaragoza 11/29/23 1101 documented in this encounter [facility] [employer] 11-07-2023 Instructions Formatting of th is note might be different from the original. Your surgery/procedure is scheduled at [facility] on 11/14/2023 at 11 am Arrival Time 9 am [facility] Address: [address] [place] [address], [address] Park in the Emergency Center Parking lot. Report to the lockstitch front edge tape sewer in the Emergency/Surgery Registration lobby of the hospital. Please call Pre-Admission Clinic at [phone] if you have any questions prior to surgery. For questions the morning of surgery, please call the Pre-op Department at [phone]. Notify your SURGEON if you develop any [...] would like to schedule therapy at a [facility] facility, please call [phone] ([phone]). Do not use lotions, creams, powders, perfume, make up, cologne or after-shaves day of surgery. Remove ALL jewelry including wedding rings, body piercings, hair extensions that contain metal, nail costa rican, make-up, and contact lens. You may brush your teeth the morning of surgery, but do not swallow the water. Wear your dentures and partial plates to the hospital (no adhesive). Shower the night the before. If applicable, use the CHG (chlorhexidine gluconate) soap or wipes. Please be advised, [facility] has transitioned to a cashless payment system. [...] RIGHTS AND RESPONSIBILITIES As a patient at [facility], you have the right to: Receive medical care and be informed of who is taking care of you Be treated with dignity and respect Have a family member/data entry representative of choice and your physician notified of your admission Receive information and actively participate in decisions about your care and treatment Refuse care, treatment and services Decide who may provide your support and speak for you Access moravian and spiritual services Participate in ethical issues [...] of hospital charges and payment methods Patient/patient data entry representative responsibilities are to: Provide information about health status to facilitate care, treatment and services Follow the treatment, plan, keep appointments and speak up when you do not understand the plan Respect the rights of other patients and healthcare personnel Follow organizational rules and regulations that support quality care and a safe environment Fulfill financial obligations as promptly as possible [facility] 11-07-2023 Miscellaneous Notes Pt is going to [facility] on 11/09/2023 to havre EKG, CXR and labs. Your surgery/procedure is scheduled at [facility] on 11/14/2023 at 11 am Arrival Time 9 am [facility] Address: [address] [place] [address], [address] Park in the Emergency Center Parking lot. Report to the lockstitch front edge tape sewer in the Emergency/Surgery Registration lobby of the hospital. Please call Pre-Admission Clinic at [phone] if you have any questions prior to surgery. For questions the morning of surgery, please call the Pre-op Department at [phone]. Notify your SURGEON if you develop any [...] would like to schedule therapy at a [facility] facility, please call [phone] ([phone]). Do not use lotions, creams, powders, perfume, make up, cologne or after-shaves day of surgery. Remove ALL jewelry including wedding rings, body piercings, hair extensions that contain metal, nail costa rican, make-up, and contact lens. You may brush your teeth the morning of surgery, but do not swallow the water. Wear your dentures and partial plates to the hospital (no adhesive). Shower the night the before. If applicable, use the CHG (chlorhexidine gluconate) soap or wipes. Please be advised, [facility] has transitioned to a cashless [...] RIGHTS AND RESPONSIBILITIES As a patient at [facility], you have the right to: Receive medical care and be informed of who is taking care of you Be treated with dignity and respect Have a family member/data entry representative of choice and your physician notified of your admission Receive information and actively participate in decisions about your care and treatment Refuse care, treatment and services Decide who may provide your support and speak for you Access moravian and spiritual services Participate in ethical issues [...] of hospital charges and payment methods Patient/patient data entry representative responsibilities are to: Provide information about [...] promptly as possible documented in this encounter [facility] 11-07-2023 Nurse Note Pt is going to [facility] on 11/09/2023 to havre EKG, CXR and labs. [facility] 10-28-2023 Miscellaneous Notes Spoke with Mee 3/7 and 3/8 to confirm surgery plan. Patient is scheduled at [facility] with Dr Lord on 11/14/23. She knows to arrive at 9:00a for 11:00a surgery. Patient knows to call [phone] to locate closest [facility] facility in order to complete PAT testing. She has phone call PAT scheduled for 11/07/23. She will follow up with Mary in [place] on 11/29/23 at 10:30a. documented in this encounter [facility] 10-28-2023 Telephone encounter Note Spoke with Mee 3/7 and 3/8 to confirm surgery plan. Patient is scheduled at [facility] with Dr Lord on 11/14/23. She knows to arrive at 9:00a for 11:00a surgery. Patient knows to call [phone] to locate closest [facility] facility in order to complete PAT testing. She has phone call PAT scheduled for 11/07/23. She will follow up with Mary in [facility] on 11/29/23 at 10:30a. [facility] 10-26-2023 History of Presen t illness [...] personal or family history of GI or extension educator malignancies. Oncology History No overview note Isaura [...] 01/12/2018 Performed by Nitesh Littlejohn MD at [facility] HEMORROIDECTOMY TONSILLECTOMY Past Medical History: Diagnosis [...] procedures Referring and communicating with other health care coordination manager (not separately reported) Documenting clinical information in the electronic or other health record Independently interpreting results (not separately reported) and communicating results to the patient/family/caregiver Nabil Lord MD [facility] 10-19-2023 Miscellaneous Notes Left VM to schedule TWISTING MACHINE OPERATOR appt with extension educator onc, call back # provided. Requested images from pelvic US be pushed via PACS from [facility]. documented in this encounter [facility] 10-19-2023 Telephone encounter Note Left VM to schedule TWISTING MACHINE OPERATOR appt with extension educator onc, call back # provided. Requested images from pelvic US be pushed via PACS from [facility]. [facility] 08-11-2023 Note Procedures Choosing a Surgeon [...] a surgeon: ? Is certified by the [place]. To be board [...] going to your state medical board at www.fsmb.org/tvexthz-h-imtyi-az dical-board/ ? Has good ratings from other [...] you are considering is certified by the [place]. ? Meet with [...] provider. Document Revised: 10/19/2021 Document Reviewed: 10/19/2021 [employer] Patient Education ? 2022 e27. [facility] 08-05-2022 Note PROCEDURE: XR FOOT [...] authenticated by: ALAN CÁRDENAS Date: 2022-08-04 22:03 [facility] Evaluation + Plan note Future Appointments Appointment Date:05/30/2023 02:00:00 PM Scheduled Provider: Location:[facility] Appointment Type: Medicare Wellness Subsequent Appointment Date:05/30/2023 02:40:00 PM Scheduled Provider:Anamaria Chinchilla MD Location:[facility] Appointment Type: Open Diagnostic Tests PendingUrine Culture 05/11/23 [facility] Evaluation + Plan note Future Appointments Appointment Date:07/30/2024 10:30:00 AM Scheduled Provider:Anamaria Chinchilla MD Location:[facility] Appointment Type: Open Appointment Date:07/30/2024 11:00:00 AM Scheduled Provider: Location:[facility] Appointment Type: Medicare Wellness Subsequent Diagnostic Tests PendingUrine Culture 05/07/24 [facility] Evaluation + Plan note Future Appointments Appointment Date:01/28/2025 08:45:00 AM Scheduled Provider:Anamaria Chinchilla MD [facility] App[facility] Type:FM Open Appointment Date:08/01/2025 11:00:00 AM Scheduled Provider: [facility] App[facility] Type:FM Medicare Wellness Subsequent [facility] Evaluation note Diagnosis Well woman exam with routine gynecological exam Routine gynecological examination Breast cancer screening by mammogram Postmenopausal state Asymptomatic postmenopausal status (age-related) (natural) [facility] Encounter for postoperative care- Primary [facility] Diagnosis Endometrial thickening on ultrasound- Primary Postmenopausal bleeding [facility] Diagnosis Preop testing- Primary Unspecified pre-operative examination [facility] Diagnosis Encounter for postoperative care- Primary [facility] Narrative No data available for this section [facility] No data available for this section [facility]ructionsNot on filedocumented in this encounter [facility] filedocumented in this encounter [facility] on filedocumented in this encounter [facility] on filedocumented in this encounter [facility] SystemInstructionsNot on filedocumented in this encounter [facility] SystemInstructionsNot on filedocumented in this encounter [facility] SystemProgress note No data available for this section [facility] Summary Purpose Family History No Family [...] ECG 12 lead Nabil Lord MD [address] [facility] [place] [id number] Referral ID Status Reason Start Date Expiration Date V isits Requested Visits Authorized [id number] Pending Review 10/28/2023 10/27/2024 1 1 Additional Source Comments INFORMATION SOURCE (unrecogn ized section and content) DATE CREATED AUTHOR 02/13/2018 [facility] DATE CREATED AUTHOR AUTHOR'S ORGANIZ ATION 08/12/2022 [facility] DATE CREATED AUTHOR AUTHOR'S ORGANIZ ATION 10/27/2023 [facility] DATE CREATED AUTHOR AUTHOR'S ORGANIZ ATION 10/28/2023 [facility] DATE CREATED AUTHOR AUTHOR'S ORGANIZ ATION 11/18/2023 [facility] DATE CREATED AUTHOR AUTHOR'S ORGANIZ ATION 12/28/2023 [facility] DATE CREATED AUTHOR AUTHOR'S ORGANIZ ATION 05/15/2024 [facility] DATE CREATED AUTHOR AUTHOR'S ORGANIZ ATION 08/10/2024 [facility] DATE CREATED AUTHOR AUTHOR'S ORGANIZ ATION 08/12/2024 [facility] DATE CREATED AUTHOR AUTHOR'S ORGANIZ ATION 08/13/2024 [facility] DATE CREATED AUTHOR AUTHOR'S ORGANIZ ATION 09/03/2024 [facility] DATE CREATED AUTHOR AUTHOR'S ORGANIZ ATION 09/13/2024 [facility] DATE CREATED AUTHOR AUTHOR'S ORGANIZ ATION 09/19/2024 [facility] Patient Care team informatio n (unrecognized section and content) Head Sulfide Operator Relationship Specialty Start Date End Date Anjelica Gambino MD [address] [place] [address] PCP - General Family Medicine 01/27/23 Head Sulfide Operator Relationship Specialty Start Date End Date Anjelica Gambino MD [address] [place] [address] PCP - General Family Medicine 01/27/23 Head Sulfide Operator Relationship Specialty Start Date End Date Anamaria Chinchilla MD [address] [place] [address] PCP - General Family Medicine 11/07/23 Head Sulfide Operator Relationship Specialty Start Date End Date Anjelica Gambino MD [address] [place] [address] PCP - General Family Medicine 12/24/16 Head Sulfide Operator Relationship Specialty Start Date End Date Anjelica Gambino MD [address] [place] [address] PCP - General Family Medicine 12/24/16 Head Sulfide Operator Relationship Specialty Start Date End Date Anjelica Gambino MD [address] [place] [address] PCP - General Family Medicine 12/24/16 Head Sulfide Operator Relationship Specialty Start Date End Date Anamaria Chinchilla MD [address] [place] [address] PCP - General Family Medicine 11/07/23 Reason [...] BE BASED ON THE PRIMARY CLINICAL RECORDS. [facility]. provides no warranty or guarantee of the accuracy or completeness of information in this document.
== END 2024-10-19 08:22 | disposition home or self-care (01) ==
LOC: EC 08:21
PROVIDERS: PCP Family Medicine; Visit Provider Podiatrist Foot & Ankle Surgery
DX: M79.672 Pain in left foot (principal); M79.671 Pain in right foot; S92.354D Nondisplaced fracture of fifth metatarsal bone, right foot, subsequent encounter for fracture with routine healing; S92.325D Nondisplaced fracture of second metatarsal bone, left foot, subsequent encounter for fracture with routine healing
CPT/HCPCS: 73630

== ENCOUNTER 2025-02-04 08:08 | Outpatient (OUT) | payer MEDICARE, SELFPAY ==
--- OUTSIDE RECORDS SUMMARY | 2024-09-13 07:06 | XMS_ITS ---
Author Organization The [facility] in [place] Address [address] [place] [address] Care Team Providers Care Laminate Floor Installer Name Role Phone Job Alvarado MD Primary Care Provider Graham Harris [facility] [phone] Encounters Encounter Location Date Provider Diagnosis [facility] (PODIATRY) [address] [place] [address] [place] [address] 09/13/2024 Graham Schmitz Plan Of Treatment No Information Progress Notes * Sara RIVERAOB:1949 (74 yo F)Acc No.[id number]:09/13/2024 Patient: Isaura CHANG :1950 A ge:74 Y S ex:Female Address:[address] [address] * true * Date: Generated for Printi ng/Farandellg/eTransmitting on: 0 02/04/2025 08:22 AM EDT
--- OUTSIDE RECORDS SUMMARY | 2024-09-18 09:30 | XMS_ITS ---
Author Organization [facility] in [place] Address [address] [place] [address] Care Team Providers Care Hha Name Role Phone Job Alvarado MD Primary Care Provider Graham Harris [phone] Allergies Allergen (clinical drug ingredient) Drug/Non Drug [...] 1 tablet Orally Once a day Active Adtkbw-Mnpw-SIK-Ca-C-CtCl-S eCu - as directed Orally Active Norvasc 5 MG 1 tablet Orally Once a day Active Losartan Potassium 100 MG 1 tablet Orall y Once a day Active [place] 3 1000 MG 1 capsule Orally Onc [...] Encounters Encounter Location Date Provider Diagnosis [facility] (PODIATRY) [address] [place] [address] [place] [address] 09/18/2024 Graham Schmitz Stress fracture, right foot, [...] Notes * Sara RIVERAOB:1949 (74 yo F)Acc No.[id number]:09/18/2024 Follow Up Patient: Isaura CHANG Provider: Jimmy Schmitz DPM, MS :1950 A ge:74 Y S ex:Female Date:09/18/2024 Address:[address], [id number] Pcp:Job Alvarado MD Check In:01:20 PM ESTCheck [...] Release 1 tablet Orally Once a day Pyilia-Xgmv-CYS-Xq-Z-GrGp-SeCu - Tablet as directed Orally Losartan Potassium 100 MG Tablet 1 tablet Orally Once a day Norvasc(amLODIPine Besylate) 5 MG Tablet 1 tablet Orally Once a day [place] 3 1000 MG Capsule 1 capsule Orally [...] 1 tablet Orally Once a day Taking Nldyei-Djog-UHA-Jl-J-QyJq-SeCu - Tablet as directed Orally Taking Losartan Potassium 100 MG Tablet 1 tablet Orally Once a day Taking Norvasc(amLODIPine Besylate) 5 MG Tablet 1 tablet Orally Once a day Taking [place] 3 1000 MG Capsule 1 capsule Orally [...] 09/18/2024 Generated for Randal Sofia/Linh on: 0 02/04/2025 08:22 AM EDT History and Physical Notes * [...]
--- OUTSIDE RECORDS SUMMARY | 2024-10-19 05:00 | XMS_ITS ---
Author Organization [facility] [place] Address [address] [place] [address] Care Team Providers Care Sanitary Aide Name Role Phone Job Alvarado MD Primary Care Provider Graham Harris [phone] Allergies Allergen (clinical drug ingredient) Drug/Non Drug Allergy documented on EMR Reaction Allergy Type Onset Date Status hydromorphone Dilaudid Unknown Drug Allergy Act meg REASON FOR VISIT 1 month f/u Medications Medication SIG (Take, Route, Frequency, Duration) Notes Start Date End Date Status Vitamin D 25 MCG (1000 UT) 1 tablet Oral ly Once a day Active Vitamin E 180 MG (400 UNIT) 1 capsule Or ally Once a day Active Zioptan 0.0015 % 1 drop into affected eye in the evening Ophthalmic Once a day Active Rosuvastatin Calcium 20 MG 1 tablet Oral ly Once a day Active tiZANidine HCl 4 MG 1 tablet Orally ever y 8 hours as needed for spasm for 4 days 06/05/2024 Active Aspirin 81 81 MG 1 tablet Orally Once a day Active Sakhfu-Shsb-NLU-Ca-C-CtCl-S eCu - as directed Orally Active Losartan Potassium 100 MG 1 tablet Orall y Once a day Active Norvasc 5 MG 1 tablet Orally Once a day Active Dorchester 3 1000 MG 1 capsule Orally Onc e a day Active Social History Tobacco Use: Social History Observation Description Date Details (start date - stop date) Never Smoker NA - NA Tobacco Use/Smoking Question Answer Notes Patient is a nonsmoker Vital Signs Height 64 in 10/19/2024 Temperature 97.5 degrees Fahrenheit 10/19/19 25 Heart Rate 60 /min 10/19/2024 Oximetry 97 % 10/19/2024 Encounters Encounter Location Date Provider Diagnosis [facility] (PODI[facility]) [address] [place] [address] [place] [address] 10/19/2024 Graham Schmitz Stress fracture, left foot, initial encounter for fracture M84.375A ; Stress fracture, right foot, initial encounter for fracture M84.374A ; Age-related osteoporosis with current pathological fracture, unspecified site, initial encounter for fracture M80.00XA ; Pain in left foot M79.672 and Right foot pain M79.671 Assessments Encounter Date Diagnosis (ICD Code) Assessment Notes Treatment Notes Treatment Clinical Notes Section Notes 10/19/2024 Stress fracture, left foot, initial encounter for fracture (ICD-10 - M84.375A) second metatarsal 10/19/2024 Stress fracture, right foot, initial encounter for fracture (ICD-10 - M84.374A) Patient may discontinue the surgical shoe and return to normal shoes on her left foot but should continue the surgical shoe on the right foot. Patient continues to improve although very slowly. I reviewed her x-rays with her and she was educated on prognosis. She will follow-up in 2 months with weightbearing right foot x-rays 10/19/2024 Age-related osteoporosis with current pathological fracture, unspecified site, initial encounter for fracture (ICD-10 - M80.00XA) 10/19/2024 Pain in left foot (ICD-10 - M79.672) 10/19/2024 Right foot pain (ICD-10 - M79.671) Plan Of Treatment Treatment Notes Assessment Notes Stress fracture, right foot, initial encounter for fracture Patient may discontinue the surgical baldomero e and return to normal shoes on her left foot but should continue the surgical shoe on the right foot. Patient continues to improve although very slowly. I reviewed her x-rays with her and she was educated on prognosis. She will follow-up in 2 months with weightbearing right foot x-rays Pending Test Test Name Order Date XR Foot LT (3 views) * 10/19/2024 XR Foot RT (3 views) * 10/19/2024 Progress Notes * Sara RIVERAOB:1949 (74 yo F)Acc No.[id number]:10/19/2024 Follow Up Patient: Dayna LACKEY Isaura Provider: Jimmy Schmitz DPM, MS :1950 A ge:74 Y S ex:Female Date:10/19/2024 Address:[facility] [address] [place] [address], [id number] Pcp:Job Alvarado MD Check In:08:24 AM ESTCheck O ut:09:49 AM EST Subjective: * Chief Complaints: * 1 month f/u * HPI: G eneral: Patient presents for follow-up regarding nonhealing stress fracture of second metatarsal. She is wearing surgical shoes due to the stiff soles. She is doing well today with no pain to the left foot. She has more pain in her right foot than left foot, however overall she is doing well. T aking Vitamin D daily. She recently underwent a tendon repair and cleaning of a cat bite to her right lateral ankle. DOS: 09-11-24, and 09-14-24 and appears to be healed from this. * ROS: G eneral/Constitutional: Chills d enies. F ever d enies. W eight gain?denies. W eight loss d enies. S kin: Skin Ulcers d enies. S kin lesion(s) d enies. ? C ardiovascular: Difficulty breathing on exertion d enies. L eg cramps?denies. E seema d enies. C hest pain d enies. R espiratory: Difficulty breathing d enies. D yspnea d enies.?Cough d enies. G astrointestinal: Diarrhea d enies. N ausea d enies. V omiting?denies. M usculoskeletal: Bone/Joint Symptoms d enies. C david Pain d enies.?Leg cramps d enies. N eurologic: Numbness d enies. T ingling d enies . G ait abnormality d enies. ? H ematology: Anemia D enies. E asy bruising d enies. ? A ll Other Systems: Review of Systems (ROS) S ee HPI for details,All others negative except those mentioned in HPI. * Active Problem List M79.672 Pain in left foot Modified On:09/27/2023W/U Status:confirmed M84.375A Stress fracture, lef t foot, initial encounter for fracture Modified On:09/27/2023/U Status:confirmed M25.572 Pain in left ankle a nd joints of left foot Modified On:06/29/2023/U Status:confirmed M80.00XA Age-related osteopor osis with current pathological fracture, unspecified site, initial encounter for fracture Modified On:09/27/2023/U Status:confirmed S92.325K Nondisplaced fractur e of second metatarsal bone, left foot, subsequent encounter for fracture with nonunion Modified On:4Risk:HighW/U Status:confirmed M77.41 Metatarsalgia, right foot Modified On:11/08/2023/U Status:confirmed M84.375K Stress fracture, lef t foot, subsequent encounter for fracture with nonunion Modified On:12/20/2023/U Status:confirmed M79.672 Left foot pain Modified On:09/18/2024/U Status:confirmed M79.671 Right foot pain Modified On:09/18/2024/U Status:confirmed * Medical History: * Surgical History: c apillary angioma x 3 tonsillectomy hemorhoidectomy cholecystectomy prolapsed bladder, cystocele colonoscopy right ankle I&D due to cat bite * Hospitalization/Major Diagno stic Procedure: s ee above * Family History: F ather: diagnosed with Diabetes mellitus without mention of complication, type II or unspecified type, not stated as uncontrolled, Other malignant neoplasm of unspecified site, Unspecified heart disease. M other: diagnosed with Other malignant neoplasm of unspecified site, Unspecified heart disease. * Social History: T obacco Use: T obacco Use/Smoking P atient is a n onsmoker * Medications: T akingAspirin 81(Aspirin) 81 MG Tablet Delayed Release 1 tablet Orally Once a day Vwljyk-Egxc-SWR-Cd-A-GvWj-SeCu - Tablet as directed Orally Losartan Potassium 100 MG Tablet 1 tablet Orally Once a day Norvasc(amLODIPine Besylate) 5 MG Tablet 1 tablet Orally Once a day Dorchester 3 1000 MG Capsule 1 capsule Orally [...] 1 tablet Orally Once a day Taking Ddcjxp-Rmhg-XGU-Un-L-ZdNp-SeCu - Tablet as directed Orally Taking Losartan Potassium 100 MG Tablet 1 tablet Orally Once a day Taking Norvasc(amLODIPine Besylate) 5 MG Tablet 1 tablet Orally Once a day Taking Dorchester 3 1000 MG Capsule 1 capsule Orally [...] Objective: * Vitals: H t: 64 in, Temp:97.5F, HR:60/min, Pain scale:11-10, Oxygen sat %:97%, Ht-cm: 162.56 cm. * Examination: P odiatry Examination: SKIN: s kin intact, n o sign of infection. MUSCULOSKELETAL: L eft foot has no pain on palpation. No deformity. Strength and range of motion within normal limits.Right foot has mild pain on palpation over the fifth metatarsal. Patient is able to alejandro against mild resistance without pain.? No obvious deformity. NEUROLOGICAL: l ight touch sensation intact, n egative tinel's sign. VASCULAR: P edal pulses palpable, C apillaryrefill is brisk to toe, m ild right lateral foot swelling. X -rays: x-rays were obtained & reviewed in my office. Left healed second metatarsal fracture with no change in alignment. Right foot has partial healing of fifth metatarsal stress fracture. No change in alignment. Assessment: * Assessment: 1. S tress fracture, right foot, initial encounter for fracture - M84.374A (Primary) 2 . S tress fracture, left foot, initial encounter for fracture - M84.375A ?Notes :second metatarsal 3 . A ge-related osteoporosis with current pathological fracture, unspecified site, initial encounter for fracture - M80.00XA 4 . P ain in left foot - M79.672? 5. R ight foot pain - M79.671 Plan: * Treatment: 2. P ain in left foot I maging: XR Foot LT (3 views) * 3. R ight foot pain I maging: XR Foot RT (3 views) * * Procedure Codes: * * Sign off status: Completed Visit Status: C HK (Check Out) true * Provider: Jimmy Schmitz DPM, MS Date: 0 10/19/2024 Generated for Randal cavazos/Ingrid/Brettsmitting on: 0 02/04/2025 08:22 AM EDT History and Physical Notes * HPI (History of Present Illness) Category Sub-Category Detail Notes Category Not es General Patient present s for follow-up regarding nonhealing stress fracture of second metatarsal. She is wearing surgical shoes due to the stiff soles. She is doing well today with no pain to the left foot. She has more pain in her right foot than left foot, however overall she is doing well. Taking Vitamin D daily. She recently underwent a tendon repair and cleaning of a cat bite to her right lateral ankle. DOS: 09-11-24, and 09-14-24 and appears to be healed from this. Examination Category Sub-Category Detail Notes Category Not es Podiatry Examination SKIN: skin intact, no sign of infection X-rays: x-rays were obtained & reviewed in my office. Left healed second metatarsal fracture with no change in alignment. Right foot has partial healing of fifth metatarsal stress fracture. No change in alignment. MUSCULOSKELETAL: Left foot has no aaron n on palpation. No deformity. Strength and range of motion within normal limits.Right foot has mild pain on palpation over the fifth metatarsal. Patient is able to alejandro against mild resistance without pain. No obvious deformity NEUROLOGICAL: light touch sensatio n intact, negative tinel's sign VASCULAR: Pedal pulses palpable, Capillary refill is brisk to toe, mild right lateral foot swelling
--- OUTSIDE RECORDS SUMMARY | 2025-02-04 08:22 | XMS_ITS | Encounter Summary ---
Author Organization [facility] tem Address [id number] [address] [place] [address] Care Team Providers Care Cement Fittings Maker Name Role Phone Job Alvarado MD Primary Care Provider [phone] Encounter Details Date Type Department Care Team ([facility] st Contact Info) Description 01/13/[address] [facility] [address] [facility] [place] [address] Kalyn Lam MD [address] [facility] [id number] [place] [address] Social History Tobacco Use Types Packs/Day Years Used Date Smoking Tobacco: Never Passive Smoke Exposure: Past Smokeless Tobacco: Never Alcohol Use Standard Drinks/Week Comments Yes 7 (1 standard drink = 0.6 oz pur e alcohol) Childcare Answer Date Recorded Childcare Unknown 01/31/2019 Employment Answer Date Recorded Employment Unknown 01/31/2019 Hunger Screening Answer Date Recorded Within the past 12 months we worried whether our food would run out before we got money to buy more. Never True 11/07/2023 Within the past 12 months th e food we bought just didn't last and we didn't have money to get more. Never True 11/07/2023 Purpose - Life Answer Date Recorded Purpose and direction in life Unknown Comments No Sex and Gender Information Value Date Recorded Sex Assigned at Female 10/24/2023 9:16 AM EST Legal Sex Female 12:11 PM EDT Gender Identity Female 10/24/2023 9:16 AM EST Sexual Orientation Not on file documented as of this encounter Plan of Treatment Not on file documented as of this encounter Visit Diagnoses Not on filedocumented in this encounter Care Teams Cement Fittings Maker Relationship Specialty Start Date End Date Job Alvarado MD [address] [place] [address] PCP - General Family Medicine 11/07/23 documented as of this encounter
--- OUTSIDE RECORDS SUMMARY | 2025-02-04 08:22 | XMS_ITS | Encounter Summary ---
Author Organization [facility] Address [id number] [address] [place] [address] Care Team Providers Care Slate Handler Name Role Phone Job Alvarado MD Primary Care Provider [phone] Encounter Details Date Type Department Care Team (Late st Contact Info) Description 08/04/2021 Orders Only [facility] [address] [place] [phone] Transcribe, Orders Support User Pain (Primary Dx); Neck pain Social History Tobacco Use Types Packs/Day Years Used Date Smoking Tobacco: Never Smokeless Tobacco: Never Alcohol Use Standard Drinks/Week Comments Yes 7 (1 standard drink = 0.6 oz pur e alcohol) Childcare Answer Date Recorded Childcare Unknown 01/31/2019 Employment Answer Date Recorded Employment Unknown 01/31/2019 Purpose - Life Answer Date Recorded Purpose and direction in life Unknown Comments No Sex and Gender Information Value Date Recorded Sex Assigned at Female 10/24/2023 9:16 AM EST Legal Sex Female 12:11 PM EDT Gender Identity Female 10/24/2023 9:16 AM EST Sexual Orientation Not on file documented as of this encounter Plan of Treatment Not on file documented as of this encounter Results * CT angiogram head (08/04/2021 3:20 PM EST) us Scanning Provider External IMG CT ORDERABLES Fin al Result * CT angiogram carotid (08/04/2021 3:15 PM EST) us Scanning Provider External IMG CT ORDERABLES Fin al Result * CT brain without contrast stroke alert (08/04/2021 1:30 PM EST) us Scanning Provider External IMG CT ORDERABLES Fin al Result documented in this encounter Visit Diagnoses Diagnosis Pain- Primary Generalized pain Neck pain Cervicalgia documented in this encounter Care Teams Slate Handler Relationship Specialty Start Date End Date Job Alvarado MD [address] [place] [address] PCP - General Family Medicine 11/07/23 documented as of this encounter
--- OUTSIDE RECORDS SUMMARY | 2025-02-04 08:22 | XMS_ITS | Clinical Summary ---
Author Organization [facility] Address [id number] [address] [place] [address] Care Team Providers Care Monumental Stonemason Name Role Phone Job Alvarado MD Primary Care Provider Allergies Active Allergy Reactions Criticality Noted Date Comments Hydromorphone Confusion,Hallucinations Low 11/07/19 24 Medications psyllium (METAMUCIL) 3.4 gram packetIndicatio ns:constipation Take 1 packet (3.4 g total) by mouth in the morning. Indications: constipation. Active glucosamine HCl/chondroitin jennings (GLUCOSAMINE-CH ONDROITIN ORAL) Take 1 tablet by mouth in the morning. joints. Active rosuvastatin (CRESTOR) 20 mg tablet Take 1 tablet (20 mg total) by mouth Daily before evening meal. cholesterol Active amLODIPine (NORVASC) 5 mg tabletIndicatio ns:hypertension Take 1 tablet (5 mg total) by mouth Daily before evening meal Indications: high blood pressure. Active aspirin 81 mg chewable tablet Chew 1 tablet (81 mg total) and swallow every other day. Heart health Active vitamin E, dl,tocopheryl acet, (vitamin E, dl, acetate,) 180 mg (400 unit) capsule Take 1 capsule (400 Units total) by mouth Daily before evening meal. Active OMEGA-3 ACID ETHYL ESTERS ORAL Take 500 mg by mouth nightly. supplement Active cholecalciferol , vitamin D3, 25 mcg (1,000 unit) capsuleIndicati ons:prevention of vitamin D deficiency Take 1 capsule (1,000 Units total) by mouth in the morning. Indications: prevention of vitamin D deficiency. With calcium. Active denosumab (PROLIA SUBQ) Inject under the skin every 6 (six) months. Last dose 09/2023 Active bimatoprost (LATISSE) 0.03 % ophthalmic solution Administer 1 drop to both eyes nightly. Place 1 drop on applicator and apply along skin of upper eyelid at base of eyelashes daily at bedtime; rpt for 2nd eye with clean applicator Active docusate sodium (COLACE) 100 mg capsuleIndicati ons:constipatio n Take 2 capsules (200 mg total) by mouth Daily before evening meal Indications: constipation. Active losartan (COZAAR) 100 mg tabletIndicatio ns:hypertension Take 1 tablet (100 mg total) by mouth in the morning. Indications: high blood pressure. Active sennosides-docu sate sodium (SENOKOT-S) 8.6-50 mg Take 1 tablet by mouth in the morning. 60 tablet Active Active Problems Problem Noted Date Diagnosed Date Hypercholesterolemia 12/27/2016 Arthritis 12/27/2016 Iron deficiency anemia 12/27/2016 Resolved Problems Problem Noted Date Diagnosed Date Resolved Date Endometrial thickening on ultrasound 10/27/2023 12/27/2023 Postmenopausal bleeding 10/27/2023 04/0 03/2024 Family History Medical History Relation Name Comments Cancer Brother Diabetes Brother Heart disease Brother Kidney disease Brother Arthritis Father Cancer Father Diabetes Father Heart disease Father Hearing loss Maternal Aunt Alcohol abuse Maternal Grandfather Hearing loss Maternal Grandfather Cancer Mother Hyperlipidemia Mother Kidney disease Mother Cancer Paternal Aunt Colon cancer Paternal Grandmother Asthma Son Anesthesia problems Neg Hx defects Neg Hx COPD Neg Hx Depression Neg Hx Drug abuse Neg Hx Hypertension Neg Hx Learning disabilities Neg Hx Liver cancer Neg Hx Liver disease Neg Hx Mental illness Neg Hx Mental retardation Neg Hx Miscarriages / Stillbirths Neg Hx Stomach cancer Neg Hx Stroke Neg Hx Vision loss Neg Hx Relation Name Status Comments Brother Alive Father Maternal Aunt Maternal Grandfather Mother Paternal Aunt Paternal Grandmother Son Alive Social History Tobacco Use Types Packs/Day Years Used Date Smoking Tobacco: Never Passive Smoke Exposure: Past Smokeless Tobacco: Never Tobacco Cessation:Counseling Given: Not Answered Alcohol Use Standard Drinks/Week Comments Yes 7 [...] AM EST Sexual Orientation Not on file Last Filed Vital Signs Vital Sign Reading Time Taken Comments Blood Pressure 148/71 12/27/2023 10:45 AM EDT Pulse 57 12/27/2023 10:45 AM EDT Temperature 36.6 C (97.8 F) 12/27/2023 10:45 AM EDT Respiratory Rate 16 12/27/2023 10:45 AM EDT Oxygen Saturation 99% 12/27/2023 10:45 AM EDT Inhaled Oxygen Concentration - - Weight 75.8 kg (167 lb) 12/27/2023 10:45 AM EDT Height 162.6 cm (5' 4.02 ) 12/27/2023 10:45 AM E DT Body Mass Index 28.65 12/27/2023 10:45 AM EDT Plan of Treatment Health Maintenance Due Date Last Done Comments Depression Screening 1964 DTaP,Tdap and Td Vaccines (1 - Tdap) 1971 Zoster (Shingles) Vaccine (1 of 2) 2002 Fall Risk Screening 2017 Tobacco Screening 11/13/2024 11/14/2023 Adult BMI Screening 12/26/2024 12/27/2023 Influenza Vaccine 04/22/2025 07/12/2014, , 05/18/2012, Additional history exists Medical Devices Not on file Insurance Care Teams Monumental Stonemason Relationship Specialty Start Date End Date Job Alvarado MD [address] [facility] [place] [address] PCP - General Family Medicine 11/07/23
--- OUTSIDE RECORDS SUMMARY | 2025-02-04 08:22 | XMS_ITS | Clinical Summary ---
Author Organization [facility] Address [address] [place] [address] Care Team Providers Care Outboard Technician Name Role Phone Francia Gambino MD Primary Care Provider Unavailab le Social History Tobacco Use Types Packs/Day Years Used Date Smoking Tobacco: Never Assessed Comments Unknown Sex and Gender Information Value Date Recorded Sex Assigned at Not on file Legal Sex Female 7:38 PM EST Gender Identity Not on file Sexual Orientation Not on file Plan of Treatment Not on file Insurance [employer] Care Teams Outboard Technician Relationship Specialty Start Date End Date Francia Gambino MD [address] [place] [address] PCP - General 04/02/14
--- OUTSIDE RECORDS SUMMARY | 2025-02-04 08:23 | XMS_ITS | Referral Summary ---
Author Organization [facility] Address [address] [place] [address] Care Team Providers Care Oil Scout Name Role Phone Unavailable Primary Care Provider Unavailabl e Social History Tobacco Use Types Packs/Day Years Used Date Smoking Tobacco: Never Assessed [place] Safety & Environment Answer Date Rec orded Fear of Current or Ex-Partner Not on file Emotionally Abused Not on file 10/13/2023 Physically Abused Not on file 10/13/2023 Sexually Abused Not on file 10/13/2023 Physically or Sexually Abused Not on file Comments Unknown Sex and Gender Information Value Date Recorded Sex Assigned at Not on file Legal Sex Female 12:43 AM EDT Gender Identity Not on file Sexual Orientation Not on file Plan of Treatment Not on file
--- OUTSIDE RECORDS SUMMARY | 2025-02-04 08:23 | XMS_ITS | Clinical Summary ---
Author Organization [facility] Address [address] [place] [address] Care Team Providers Care Gravedigger Name Role Phone Unavailable Primary Care Provider [...]
--- OUTSIDE RECORDS SUMMARY | 2025-02-04 08:23 | XMS_ITS | Encounter Summary ---
Author Organization [facility] Address [id number] [address] [place] [address] Care Team Providers Care Motor And Generator Brush Maker Name Role Phone Job Alvarado MD Primary Care Provider [phone] Encounter Details Date Type Department Care Team ([facility] [address] Contact Info) Description 10/19/2023 Orders Only [facility] [address] [place] [phone] Transcribe, Orders Support User Pain (Primary Dx) Social History Tobacco Use Types Packs/Day Years [...] documented as of this encounter Results * Ultrasound pelvic with transvaginal (10/17/2023 9:00 AM EST) us Scanning Provider External IMG US ORDERABLES Fin al Result documented in this encounter Visit Diagnoses Diagnosis Pain- Primary Generalized pain documented in this encounter Care Teams Motor And Generator Brush Maker Relationship Specialty Start Date End Date Job Alvarado MD [address] [place] [address] PCP - General Family Medicine 11/07/23 documented as of this encounter
--- NOTE | 2025-02-04 08:25 | XR_ITS ---
The [address] [address] Patient Name: PAPITO HAYDEN MRN: [id number] date: 1950 Sex: F Assigned Patient Location: [facility] Current Patient Location: [facility] Accession/Order Number: [id number] Exam Date: 02/04/2025 10:06 Report Date: 02/04/2025 10:10 At the request of: SUNG COPELAND DPMitesh Procedure: XR foot SARAHI min 3V BILATERAL FEET - 3 views each CLINICAL DATA: Follow-up metatarsal stress fractures. COMPARISON: 10/19/2024 Weightbearing AP, lateral and oblique views were obtained bilaterally. There are stable healing fractures involving the proximal shafts of the fifth metatarsal on the right and second metatarsal on the left. No new fractures or dislocation are visualized. Tiny calcaneal spurs are seen. There is no significant soft tissue swelling. XR/XR foot SARAHI min 3V IMPRESSION: STABLE HEALING PROXIMAL METATARSAL FRACTURES BILATERALLY. NO NEW ABNORMALITIES. Impression dictated by: Maryanne Coates M.D. 02/04/2025 10:10 AM Dictation Location: [place] [address] Electronically authenticated by: [id number] Date: 02/04/2025 10:10
--- OUTSIDE RECORDS SUMMARY | 2025-02-04 08:38 | XMS_ITS | CCD ---
Author Organization [facility] Inform ion Partnership [facility] ([facility] Care Team Providers Care Media Intern Name Role Phone FARA BOOKER Unavailable Unavailable [...] Consulting Unavailable KARASIK, DR CHAUDHARI Attending Unavailable KARNAY, DR CHAUDHARI [...] ANJELICA E Primary Care Unavailable GAMBINO, ANJELICA Bergeron Referring Unavailable ROSS, ANAMARIA E Primary Care Unavailable CAROLYN, NABIL C Admitting Unavailable CAROLYN, NABIL C Attending Unavailable CAROLYN, NABIL C Referring Unavailable GAMBINO, ANJELICA E Primary Care Unavailable SUNG NIÑO Attending Unavailable AMOR ANAMARIA E Primary Care Unavailable CAROLYN, NABIL C Attending Unavailable CAROLYN, NABIL C Referring Unavailable ROSS, ANAMARIA Rubio Primary Care Unavailable CAROLYN, NABIL C Attending Unavailable CAROLYN, NABIL C Referring Unavailable ROSS, ANAMARIA Rubio Primary Care Unavailable CAROLYN, NABIL C Referring Unavailable AMOR, ANAMARIA E Primary Care Unavailable MARY PENNINGTON Attending Unavailable BELEN, ANJELICA E Referring Unavailable ANAMARIA CHINCHILLA E Primary Care Unavailable MARY PENNINGTON Attending Unavailable ANAMARIA CHINCHILLA Referring Unavailable ANAMARIA CHINCHILLA Primary Care Unavailable MD Anamaria Chinchilla Attending Unavailable MD Anamaria Chinchilla Attending Unavailable MD Anamaria Chinchilla Attending Unavailable MD Anamaria Chinchilla Admitting Unavailable MD Anamaria Chinchilla Attending Unavailable VIPUL OBANDO Attending Unavailable MD Anamaria Chinchilla Attending Unavailable Anjelica Gambino MD Primary Care Provider BENTLEY DAS Attending Unavailable BENTLEY DAS Attending Unavailable Kushal Keith Attending Unavailable Anamaria Chinchilla MD Primary Care Provider Anjelica Gambino MD Primary Care Provider Anamaria Chinchilla Attending Unavailable Leonidas, Violet L Admitting Unavailable Leonidas, Violet L Attending Unavailable Anamaria Chinchilla Admitting Unavailable Anamaria Chinchilla Attending Unavailable Leonidas, Violet L Attending Unavailable Leonidas, Violet L Attending Unavailable Anamaria Chinchilla Attending Unavailable Anamaria Chinchilla Attending Unavailable Anamaria Chinchilla Attending Unavailable VIPUL OBANDO Attending Unavailable Anamaria Chinchilla Attending Unavailable Anamaria Chinchilla Attending Unavailable Anamaria Chinchilla Admitting Unavailable Anamaria Chinchilla Attending Unavailable Allergies Allergy Classification Reported Allergen(s) Allergy Type Date of Onset Reaction(s) Facility (6 sources) atorvastatin; Translations: [atorvastatin] Drug Allergy Unknown (qualifier value) [facility] (17 sources) HYDROmorphone; Translations: [hydromorphone] Drug Allergy 01-29-20 Unknown (qualifier value), Unknown, Confusion, Hallucinations [facility] (6 sources) Pyrilamine; Translations: [pyrilamine] Drug Allergy Unknown (qualifier value) [facility] (4 sources) No Known Medication Allergies; Translations: [No Known Medication Allergies] Propensity to adverse reactions (disorder) [facility] Repository Medications Current Medications Medication Drug Class(es) Dates Sig (Normalized) Sig (Original) amLODIPine 5 mg oral tablet (12 sources) Dihydropyridine Calcium Channel Sylvester Start: 10-09-2024 take 1 tablet by mouth once daily amLODIPine 5 mg Tab See Instructions, TAKE 1 TABLET BY MOUTH DAILY, # 90 tab(s), Refills(s) 0, Pharmacy: [facility] [id number], 162, cm, 09/17/24 9:18:00 EST, Height/Length Dosing, 77.9, kg, 09/17/24 9:18:00 EST, Weight Dosing Start Date: 10/09/24 Status: Ordered Start: 06-01-2023 take 1 tablet by silver th in the morning amLODIPine (Norvasc) 5 MG tablet Take 5 mg by mouth in the morning. 06/01/2023 Active aspirin 81 mg oral capsule (13 sources) Platelet Aggregation Inhibitor, Nonsteroidal Anti-inflammatory Drug [...] Status: Ordered take 1 tablet by silver th every other day aspirin 81 MG EC tablet Take 81 mg by mouth every other day. Active aspirin 81 mg ch ewable tablet Chew 1 tablet (81 mg total) and swallow every other day. Heart health Active bimatoprost 0.01 mg drug implant (11 sources) Prostaglandin Analog Start: 07-13-2024 Durysta 1 [...] applicator Active Calcium Citrate / Vitamin D (3 sources) Start: 05-30-2023 calcium-vitami n D Daily, Refill(s) 0 Start Date: 05/30/23 Status: Ordered Iikzkds-Fnulundagd-Yen harp D (VITAMIN D3/CALCIUM/PHOSPHORUS PO) (4 sources) take 1 dose by mouth once in the morning Xfsvfhg-Cgueiltucs-Uxy harp D (VITAMIN D3/CALCIUM/PHOSPHORUS PO) Take 1 [...] With calcium. Active take 1 capsule by [facility] in the morning cholecalciferol, vitamin D3, 2,000 units capsule Take 1 capsule (2,000 Units total) by mouth in the morning. 0 Active chondroitin sulfates 400 mg / glucosamine hydrochloride 500 mg oral tablet (3 sources) take 1 tablet by mouth three times daily glucosamine-chondroitin 500-400 mg tablet Take 1 tablet by mouth 3 (three) times a day. 0 Active denosumab (10 sources) RANK Ligand Inhibitor Start: Denosumab (PROLIA SC) Inject 1 Units under [...] Active docusate sodium 50 mg / sennosides, alf 8.6 mg oral tablet (2 sources) Start: [...] day(s), # 14 cap(s), Refills(s) 0, Pharmacy: [facility] [id number], 162, cm, 05/07/24 14:07:00 EDT, Height/Length Dosing, 76, kg, 05/07/24 14:07:00 EDT, Weight Dosing Start Date: 05/07/24 Stop Date: 05/14/24 Status: Ordered glucosamine hydrochloride 1500 mg oral tablet (4 sources) Start: 3 glucosamine hydrochloride 1500 mg [...] Active krill oil 500 mg oral capsule (8 sources) Start: 12-01-2022 take 1 capsule by mouth once daily omega-3 polyunsaturated fatty acids 500 mg oral capsule 500 mg = 1 cap(s), Oral, Daily, Refills(s) 0 Start Date: 12/01/22 Status: Ordered losartan potassium 100 mg oral tablet (12 sources) Angiotensin 2 Receptor Sylvester Start: 05-30-2023 take 1 tablet by mouth once daily losartan 100 mg Tab 100 mg = 1 tab(s), Oral, Daily, # 90 tab(s), Refills(s) 4, Pharmacy: [facility] [id number], 162, cm, 09/01/23 11:37:00 EST, Height/Length Dosing, 76, kg, 09/01/23 11:37:00 EST, Weight Dosing Start Date: 02/21/24 Status: Ordered Start: 12-15-2022 take 1 tablet by silver twice daily losartan 25 mg Tab 25 mg = 1 tab(s), Oral, BID, # 180 tab(s), Refills(s) 0, Pharmacy: [facility] [id number], 162, cm, 05/11/23 9:36:00 EDT, Height/Length Dosing, [...] tab(s), Refills(s) 0, Pharmacy: [facility] [id number], 162.6, cm, 12/01/22 15:23:00 EDT, Height/Length Dosing, 76.5, kg, 12/01/22 15:23:00 EDT, Weight Dosing Start Date: 02/27/23 Status: Ordered nitrofurantoin, macrocrystals 25 mg / nitrofurantoin, monohydrate 75 mg oral capsule (1 source) Nitrofuran Antibacterial Start: 10-19-2024 End: 10-26-2024 take 1 capsule by mouth twice daily Macrobid 100 mg Cap 100 mg = 1 cap(s), Oral, BID, X 7 day(s), # 14 cap(s), Refills(s) 0, Pharmacy: [facility] [id number], 162, cm, 09/17/24 9:18:00 EST, Height/Length Dosing, 77.9, kg, 09/17/24 9:18:00 EST, Weight Dosing Start Date: 10/19/24 Stop Date: 10/26/24 Status: Ordered omega-3 acid ethyl esters (alf) 1000 mg oral capsule (2 sources) take [...] Active rosuvastatin calcium 20 mg oral tablet (13 sources) HMG-CoA Reductase Inhibitor Start: 12-01-2022 take 1 tablet by mouth once daily rosuvastatin 20 mg Tab See Instructions, TAKE 1 TABLET BY MOUTH DAILY, # 90 tab(s), Refills(s) 4, Pharmacy: [facility] [id number], 162, cm, 09/01/23 11:37:00 EST, Height/Length Dosing, [...] Start Date: 07/13/24 Status: Ordered Vitamin D3 (2 sources) Start: 07-30-2024 Vitamin D3 Refills(s) 0 Start Date: 07/30/24 Status: Ordered vitamin e 450 mg oral capsule (13 sources) Start: 12-01-2022 take 1 capsule by mouth once daily vitamin E 450 mg oral capsule See Instructions, take one daily 400mg, Refills(s) 0 Start Date: 12/01/22 Status: Ordered Start: 12-01-2022 alpha tocopher ol (Vitamin E) 1000 units capsule See Instructions, take one daily 400mg, Refills(s) 0 12/01/2022 Active take 1 capsule by mo uth once daily at dinner vitamin E, dl,tocopheryl acet, (vitamin E, dl, acetate,) 180 mg (400 unit) capsule Take 1 capsule (400 Units total) by mouth Daily before evening meal. Active take 1 capsule by mo ut [...] 11/14/2023 11/29/2023 Discontinued (Therapy completed) stool softner (2 sources) Start: 07-30-2024 stool softner stool softner, 100 mg, Oral, Bedtime, take 2 Start Date: 07/30/24 Status: Ordered Problems Active Problems Problem Classification Problem Date Documented Date Episodic/Chronic Abdominal pain (4 sources) Right sided abdominal pain 05-11-2023 Episodic Chronic kidney disease (3 sources) Chronic kidney disease stage 3A ; Translations: [Chronic kidney disease stage 3B ] 05-30-2023 Chronic Comment on above: Added per Dr. Amor diego response, per outpatient [facility] policy. Deficiency and other anemia (2 sources) Anemia 07-30-2024 Episodic Disorders of lipid metabolism (20 sources) Pure hypercholesterolemia, unspecified; Translations: [Hypercholesterolemia ] Onset: 12-27-2016 Chronic Essential hypertension (12 sources) Essential (primary) hypertension; Translations: [Hypertensive disorder] Onset: 11-05-2021 Chronic Heart valve disorders (1 source) Rheumatic disorders of both mitral and tricuspid valves; Translations: [RHEUMATIC D/O MITRAL TRICUSPID VALV] Onset: 10-08-2021 Chronic Hypertension with complications and secondary hypertension (3 sources) Hypertensive renal disease 05-30-2023 Chronic Comment on above: Linked per outpatien t CDI policy. Malaise and fatigue (2 sources) Fatigue 07-30-2024 Episodic Menopausal disorders (11 sources) Postmenopausal bleeding; Translations: [Postmenopausal bleeding] Onset: 10-27-2023 Resolved: 11-28-2023 05-11-2023 Chronic Osteoarthritis (10 sources) Arthritis; Translations: [Unspecified osteoarthritis, unspecified site] Onset: 12-27-2016 01-31-2023 Chronic Osteoporosis (10 sources) Senile osteoporosis; Translations: [Age-related osteoporosis without current pathological fracture] Onset: 01-31-2023 12-01-2022 Chronic Other aftercare (1 source) Encounter for other specified surgical aftercare; Translations: [Encounter for other specified surgical aftercare] Onset: 11-29-2023 Episodic Other connective tissue disease (4 sources) Pain in left foot; Translations: [PAIN IN LEFT FOOT] Onset: 08-03-2022 Episodic Other connective tissue disease (3 sources) Foot pain 05-30-2023 Episodic Other connective tissue disease (1 source) Biceps tendinitis 09-17-2024 Episodic Other connective tissue disease (1 source) Pain in left arm 08-27-2024 Episodic Other injuries and conditions due to external causes (2 sources) Cat bite - wound 09-10-2024 Episodic Other lower respiratory disease (2 sources) Chronic cough 07-30-2024 Episodic Other nervous system disorders (1 source) Other acute postprocedural pain; Translations: [Other acute postprocedural pain] Onset: 11-14-2023 Episodic Other nutritional; endocrine; and metabolic disorders (3 sources) Overweight in adulthood with body mass index of 25 or more but less than 30 07-30-2024 Episodic Residual codes; unclassified (1 source) Pain, unspecified; Translations: [Pain, unspecified] Onset: 10-19-2023 Episodic Residual codes; unclassified (2 sources) Postmenopausal state; Translations: [Asymptomatic menopausal state] 08-28-2024 Episodic Syncope (1 source) Syncope 09-17-2024 Episodic Transient cerebral ischemia (13 sources) Transient cerebral ischemic attack, unspecified; Translations: [...] Name Value Interpretation Reference Range Facil ity Ambulatory Visit Summaryon 0 01-28-2025 Ambulatory Visit Summary Ambulatory Visit Summary SIAURA HAYDEN :1950 Visit Date:01/28/2025 Ambulatory Visit Instructions Your Diagnosis Hypertensive kidney disease with stage 3a chronic kidney disease Anemia Hyperlipidemia Hypertension Osteoporosis Postmenopause bleeding Bursitis of unspecified shoulder Chronic kidney disease, stage 3a Your Care Team Attending Physician - Anamaria Chinchilla MD Primary Care Physician - Anamaria Chinchilla MD This Is Your Medications List amlodipine (amLODIPine 5 mg Tab) Contact prescribing physician if questions or concerns Non-Formulary Medication (stool softner) aspirin (aspirin 81 mg oral capsule) bimatoprost [...] Colonoscopy, Laser. Discharge Vitals Heart Rate (Peripheral) 71 Blood Pressure 120/68 Height 162 cm Height 64 in Weight 78.1 kg Weight 172.181 lb BMI 29.76 What to do next Scheduled Follow-Up Appointments 2024 11:00 AM EST Where: [facility] [address] [place] [address]- Medications What How Much When Instructions Unchanged amlodipine (amLODIPine 5 mg Tab) See instructions TAKE 1 TABLET BY MOUTH DAILY Pickup at [facility] [id number] Unchanged aspirin (aspirin 81 mg oral capsule) [...] Contact prescribing physician if questions or concerns Pharmacy Information [facility] [id number]: [address], [place] [id number] [phone] Allergies Dilaudid (Unknown) Problems Ongoing - Any problem that you are currently receiving treatment for. Age-related osteoporosis without current pathological fracture Anemia Biceps tendinitis Chronic cough CKD stage 3a, GFR 45-59 ml/min Fatigue Foot pain, right Hyperlipidemia Hypertension Hypertensive kidney disease with stage 3a chronic kidney disease Left arm pain Osteoporosis Postmenopause bleeding Right sided abdominal pain Syncope TIA (transient ischemic attack) Patient Survey You may receive a survey via text or e-mail asking about your office visit. Please share your experience with us by completing your survey. We appreciate your feedback and thank you for choosing us for your care. Normal [facility] Family Medicine Office/Clini c Noteon 01-28-2025 Family Medicine Office/Clinic Note Family Medicine Office/Clinic Note Chief Complaint 6 month f/u The patient presents for management of chronic health conditions including hypertension and osteoporosis. HPI Staff EMILY and EDISON due today Patient in office for 6 month f/u. HTN, Hyperlipidemia, Osteoporosis, Hypercholesteremia. Patient is here for follow up on hypertension. How often are you checking your blood pressure? Doesnt check BP at home What are your average readings? N/A, Not checking at home Do you have any of the following symptoms? Chest Pain? no Palpitations? no MALONE/SOB? no Headache? no Peripheral Edema? no Light Headedness? no Yearly BMP: BUN: 15 mg/dL (08/09/24 17:11:00) Calcium Lvl: 8.9 mg/dL (08/09/24 17:11:00) Chloride: 107 mmol/L (08/09/24 17:11:00) CO2: 27 mmol/L (08/09/24 17:11:00) Creatinine: 1.1 mg/dL (08/09/24 17:11:00) eGFR: 53 mL/min/1.73 m2 Low (08/09/24 17:11:00) Glucose Lvl: 105 mg/dL (08/09/24 17:11:00) Potassium Lvl: 4.1 mmol/L (08/09/24 17:11:00) Sodium Lvl: 141 mmol/L (08/09/24 17:11:00) Refill needed?: yes -losartan and rosuvastatin, Norvasc Patient is here for follow up on hyperlipidemia: Do you have side effects from the medication? no Refill needed?: yes Yearly Lipid labs: _ Chol: 208 mg/dL High (08/09/24 17:11:00) HDL: 64 mg/dL (08/09/24 17:11:00) LDL Direct: 104 mg/dL (08/09/24 17:11:00) Tri mg/dL High (08/09/24 17:11:00) VLDL: 36 mg/dL (08/09/24 17:11:00) History of Present Illness - The patient is a 74-year-old female presenting for management of her chronic medical conditions. - She describes ongoing treatment for bursitis, with physical therapy being initiated and corrective exercises provided for home practice. The symptoms fluctuate with periods of increased discomfort in the hip and kim, particularly of the leg operated on during childhood. - She had a protracted episode of cough, now resolved. Her blood pressure readings remain optimal. - Her weight is currently 172 lbs, attributed to diminished physical activity due to ongoing foot issues. - There was an instance of postmenopausal bleeding being tracked for resolution. - She anticipates further assessment of her healed foot by Dr. Ponce to determine standard shoe suitability. - Weight management discussed with the aim of increasing activity levels during summer. - Blood pressure and cholesterol levels appear well-managed, emphasizing continuous monitoring. - Ongoing lifestyle modifications including diet adjustments are encouraged. Review of Systems PHQ Score Initial Depression Screen Score: 0 SCORE Physical Exam Vitals & Measurements HR: 71(Peripheral) BP: 120/68 SpO2: 96% HT: 64 in HT: 162 cm WT: 172.181 lb WT: 78.1 kg BMI: 29.76 General: alert, no acute distress ENMT: oral mucosa moist Cardiovascular: Regular rate and rhythm, normal peripheral perfusion Respiratory: Lungs clear to auscultation, respirations non labored Extremities: no deformity, no trauma Neurological: oriented x 4, level of consciousness appropriate for age, CN II-XII intact, motor strength equal & normal bilaterally, speech normal Abdomen: Soft, Non-tender, Non-distended, + Bowel sounds Assessment/Plan 1. Hypertensive kidney disease with stage 3a chronic kidney disease (I12.9: Hypertensive chronic kidney disease with stage 1 through stage 4 chronic kidney disease, or unspecified chronic kidney disease) - Stable at a GF of 53. Will recheck in 6 months 2. Anemia (D64.9: Anemia, unspecified) - Resolved. 3. Hyperlipidemia (E78.5: Hyperlipidemia, unspecified) - Monitor medication adherence and cholesterol levels. 4. Hypertension (I10: Essential (primary) hypertension) - Maintain current treatment with losartan and monitor blood pressure. - Ensure medication refills are scheduled. 5. Osteoporosis (M81.0: Age-related osteoporosis without current pathological fracture) - Continue current management strategies. 6. Postmenopause bleeding (N95.0: Postmenopausal bleeding) - Ongoing monitoring for symptom recurrence. 7. Bursitis of unspecified shoulder (M75.50) - Continue with prescribed physical therapy and exercises. - Follow-up with specialist Dr. Ponce is scheduled for footwear assessment. Chronic kidney disease, stage 3a (N18.31: Chronic kidney disease, stage 3a) - Maintain current management with emphasis on controlling blood pressure. Orders: amlodipine, See Instructions, TAKE 1 TABLET BY MOUTH DAILY, # 90 tab(s), Refills(s) 1, Pharmacy: [facility] [id number], 162, cm, 01/28/25 9:01:00 EDT, Height/Length Dosing, 78.1, kg, 01/28/25 9:01:00 EDT, Weight Dosing - 74-year-old female with a history of hypertension, chronic kidney disease, and bursitis presenting for management. - Hypertension is well-monitored with appropriate medicative support. - Chronic kidney disease requires continued diligence in management. - Bursitis is under treatment, affecting lifestyle and mobility. - Medication regimens f (more content not included)... Normal [facility] Comment on above: Result Comment: Elec tronically Signed By: Amor SHORT, Anamaria Saldivar.br\Date and Time Signed: 01/28/25 09:32 EDT Reminderson 10-22-2024 Reminders Reminders From: Violet Allen To: [facility] - [facility]; Sent: 10/22/2024 08:07:37 EST Show up: 10/22/2024 08:07:00 EST Subject: Ambulatory Reminder Due Date/Time: 10/23/2024 08:06:00 EST urine culture was positive. she is on the correct antibiotic. continue that until it is gone. Is she feeling better? Results: Date Result Type Ind Result Name 10/19/2024 10:39 EST MBO POS Urine Culture From: Maryanne Cramer M.A. ([facility] - Clinical) To: Violet Allen; Sent: 10/22/2024 09:32:36 EST Show up: 10/22/2024 09:31:00 EST Subject: RE: Ambulatory Reminder understands, and she said she is feeling a lot better than what she was Normal [facility] Reminders Reminders From: Violet Allen To: [facility] - Clinical; Sent: 10/22/2024 08:07:37 EST Show up: 10/22/2024 08:07:00 EST Subject: Ambulatory Reminder Due Date/Time: 10/23/2024 08:06:00 EST urine culture was positive. she is on the correct antibiotic. continue that until it is gone. Is she feeling better? Results: Date Result Type Ind Result Name 10/19/2024 10:39 EST MBO POS Urine Culture Normal [facility] C Urineon 10-21-2024 Bacteria identified Cx Nom (U) Microbiology PROCEDURE: Urine Culture [R1] SOURCE: U CleanCatch BODY SITE: COLLECTED DATE/TIME: 10/19/2024 10:39 EST RECEIVED DATE/TIME: 10/19/2024 17:38 EST START DATE/TIME: 10/19/2024 17:38 EST FREE TEXT SOURCE: Violet Allen Jodi L FINAL REPORTS Final Report [] Verified Date/Time: 10/21/2024 09:49 EST >100,000 cfu/ml Citrobacter koseri SUSCEPTIBILITY RESULTS __ LEGEND: S=Susceptible, N/R=Not Reported, Blank=Data not available, or drug not advisable or tested, I=Intermediate, ESBL=Extended spectrum beta-lactamase, R=Resistant, TFG=Thymidine-dependen t strain, SUDHAKAR=Beta-lactamase positive, ARNLOD=mcg/m;(mg/L), S*=Predicted susceptible interp, R*=Predicted resistant interp [employer] Antibiotic ARNOLD Dilutn ARNOLD Interp Ampicillin 16 R* Ampicillin/ <=8/4 S Sulbactam Aztreonam <=4 S [...] Locations R1: This test was performed at: [facility], [address] [place] [address], [address] , , Normal [facility] Comment on above: Performed By: #### 2 [id number] #### [facility] [address] [place] [address] [facility] CALCIUMon 10-05-2024 Calcium [Mass/Vol] 8.9 mg/dL 8.5 - 10.1 mg/dL [facility] Family Medicine Office/Clini c Noteon 09-17-2024 Family [...] and her call the squad transferred to [facility] she did vomit a few times [...] her called 911 and was taken to [facility]. was hydrated with IV fluids and [...] tendinitis, unspecified shoulder) pt was seen at [facility] ortho Dr. Keith to go over [...] 23-valent v (more content not included)... Normal [facility] Comment on above: Result Comment: Elec trosommerally Signed By: Violet Allen.kelly\Date and Time Signed: 09/17/24 11:46 EST C ANAon 09-13-2024 C KARLEE -- - Pre No anaerobic growth after 48 hrs. Normal [facility] Comment on above: Performed By: #### A NAC #### [place] [id number] C Woundon 09-13-2024 C Wound -- - Final No growth at 48 hours. Normal [facility] Comment on above: Performed By: #### W DC #### [address] [address] Family Medicine Office/Clini c Noteon 09-11-2024 Family Medicine Office/Clinic Note Family Medicine Office/Clinic Note HPI Staff Isaura is a 74 year old female presenting with a cat bite on right ankle Onset: History of Present Illness Pt was bit 1-2 days before presenting to me. Seen in [facility] who started the patient on Abx. Area [...] pneumococcal 23-valent vaccine 06/25/2008 Recorded Normal [facility] Comment on above: Result Comment: Elec tronically Signed By: Amor SHORT, Anamaria Harvey\.br\Date and Time Signed: 09/11/24 12:15 EST OR Trackon 09-11-2024 Specimens Received From [facility] Comment on above: Performed By: #### O gabriela Tracking Order #### [facility] [address] [place] [address] Ambulatory Visit Summaryon 0 09-10-2024 Ambulatory Visit [...] EDT With: Amor SHORT, Anamaria Harvey Where: [address] [address] 2024 11:00 AM EST With: Where: [address] [address]- Medications What How Much When Instructions Unchanged [...] us for your care. Normal [facility] Ambulatory Visit Summaryon 0 08-27-2024 [...] AM EDT With: Anamaria Chinchilla MD Where: [address] [address] 2024 11:00 AM EST With: Where: [address] [address]- Medications What How Much When [...] us for your care. Normal [facility] Family Medicine Office/Clini c Noteon [...] ortho for this. Follow up PRN Ordered: [facility] External Ambulatory Referral 2. CKD stage 3a, GFR 45-59 ml/min (N18.31: Chronic kidney disease, stage 3a) Improved on last lab work. Follow up PRN Ordered: A1c POC [address] [facility] External Ambulatory Referral 3. BMI 29.0-29.9,adult (Z68.29: Body mass index [BMI] 29.0-29.9, adult) BMI education added Ordered: [facility] External Ambulatory Referral 4. Age-related osteoporosis without current pathological fracture (M81.0: Age-related osteoporosis without current pathological fracture) Reviewed Labs and Dexa. Prolia does not seem to be helping. Follows with Dr. Das. Ordered: [facility] External Ambulatory Referral Follow-up No qualifying data [...] 5.2 % (08/27/24 12:02:00) Normal [facility] Comment on above: Result Comment: Elec tronically Signed By: Amor SHORT, Anamaria Harvey\.br\Date and Time Signed: 08/27/24 12:03 EST CBC w/ Auto Diffon 4 Basophils/100 WBC (Bld) 0.7 % Normal 0.0-2.0 [facility] Comment on above: Performed By: #### 2 [id number] #### [facility] Laboratory [address] [place] [address] Basophils/Leukocyte s Auto (Bld) [Pure # fraction] 0.1 E9/L Normal 0.0-0.2 [facility] Comment on above: Performed By: #### 2 [id number] #### [facility] [address] [place] [address] Eosinophils (Bld) [#/Vol] 0.3 E9/L Normal 0.0-0.5 [facility] Comment on above: Performed By: #### 2 [id number] #### [facility] [address] [place] [address] Eosinophils/100 WBC (Bld) 3.2 % Normal 0.0-8.0 [facility] Comment on above: Performed By: #### 2 797123 #### [facility] [address] [place] [address] Erythrocyte distribution width (RBC) [Ratio] 13.7 % Normal 10.9-14.2 [facility] Comment on above: Performed By: #### 2 420959 #### [facility] [address] [place] [address] Hematocrit (Bld) [Volume fraction] 36.1 % Normal 34.0-46.0 [facility] Comment on above: Performed By: #### 2 703049 #### [facility] [address] [place] [address] Hemoglobin (Bld) [Mass/Vol] 12.3 g/dL Normal 12.0-16.0 [facility] Comment on above: Performed By: #### 2 089412 #### [facility] [address] [place] [address] Lymphocytes (Bld) [#/Vol] 1.7 E9/L Normal 1.0-4.0 [facility] Comment on above: Performed By: #### 2 961108 #### [facility] [address] [place] [address] Lymphocytes/100 WBC (Bld) 20.6 % Normal 14.0-50.0 [facility] Comment on above: Performed By: #### 2 050826 #### [facility] [address] [place] [address] MCH (RBC) [Entitic mass] 33.6 pg Normal 27.0-34.0 [facility] Comment on above: Performed By: #### 2 348358 #### [facility] [address] [place] [address] MCHC (RBC) [Mass/Vol] 34.1 g/dL Normal 31.4-36.0 [facility] Comment on above: Performed By: #### 2 155946 #### [facility] [address] [place] [address] MCV (RBC) [Entitic vol] 98.7 fL Normal 80.0-100.0 [facility] Comment on above: Performed By: #### 2 137150 #### [facility] Laboratory [address] [place] [address] Monocytes (Bld) [#/Vol] 0.6 E9/L Normal 0.2-1.0 [facility] Comment on above: Performed By: #### 2 354765 #### [facility] [address] [place] [address] Neutrophils (Bld) [#/Vol] 5.8 E9/L Normal 2.0-7.5 [facility] Comment on above: Performed By: #### 2 806423 #### [facility] [address] [place] [address] Neutrophils/100 WBC (Bld) 68.8 % Normal 36.0-75.0 [facility] Comment on above: Performed By: #### 2 391283 #### [facility] [address] [place] [address] Platelet 304.0 E9/L Normal 150.0-500.0 [facility] Comment on above: Performed By: #### 2 958078 #### [facility] [address] [place] [address] Platelet mean volume (Bld) [Entitic vol] 8.4 fL Normal 6.4-10.8 [facility] Comment on above: Performed By: #### 2 100256 #### [facility] [address] [place] [address] RBC (Bld) [#/Vol] 3.7 E12/L Low 4.3-5.9 [facility] Comment on above: Performed By: #### 2 912407 #### [facility] [address] [place] [address] WBC corrected for nucl RBC Auto (Bld) [#/Vol] 8.5 E9/L Normal 4.0-11.0 [facility] Comment on above: Performed By: #### 2 003299 #### [facility] [address] [place] [address] CHEMISTRYOrdered By: SYSTEM SYSTEM on 08-09-2024 25-hydroxyvitamin [...] [Mass/Vol] 4.4 g/dL Normal 3.3-5.0 [facility] Comment on above: Performed By: #### 2 596367 #### [facility] [address] [place] [address] Albumin/Globulin (S) [Mass conc ratio] 1.6 Normal 1.1-2.2 [facility] Comment on above: Performed By: #### 2 513101 #### [facility] [address] [place] [address] ALP [Catalytic activity/Vol] 52 Int._Unit/L Normal 21-98 [facility] Comment on above: Performed By: #### 2 209069 #### [facility] [address] [place] [address] ALT No additional P-5'-P [Catalytic activity/Vol] 14 Int._Unit/L Normal 6-46 [facility] Comment on above: Performed By: #### 2 830349 #### [facility] [address] [place] [address] Anion gap [Moles/Vol] 11 mmol/L Normal 6-16 [facility] Comment on above: Performed By: #### 2 869804 #### [facility] [address] [place] [address] AST [Catalytic activity/Vol] 18 Int._Unit/L Normal 5-43 [facility] Comment on above: Performed By: #### 2 072940 #### [facility] [address] [place] [address] Bilirubin [Mass/Vol] 0.9 mg/dL Normal 0.0-1.1 [facility] Comment on above: Performed By: #### 2 114622 #### [facility] [address] [place] [address] Calcium [Mass/Vol] 8.9 mg/dL Normal 8.9-11.1 [facility] Comment on above: Performed By: #### 2 318532 #### [facility] [address] [place] [address] Chloride [Moles/Vol] 107 mmol/L Normal 101-111 [facility] Comment on above: Performed By: #### 2 649989 #### [facility] [address] [place] [address] CO2 [Moles/Vol] 27 mmol/L Normal 21-31 [facility] Comment on above: Performed By: #### 2 769496 #### [facility] [address] [place] [address] Creatinine [Mass/Vol] 1.1 mg/dL Normal 0.5-1.3 [facility] Comment on above: Performed By: #### 2 496128 #### [facility] [address] [place] [address] Globulin (S) [Mass/Vol] 2.8 g/dL Normal 1.4-4.0 [facility] Comment on above: Performed By: #### 2 840441 #### [facility] [address] [place] [address] Glucose [Mass/Vol] 105 mg/dL Normal 55-199 [facility] Comment on above: Performed By: #### 2 957554 #### [facility] [address] [place] [address] Potassium [Moles/Vol] 4.1 mmol/L Normal 3.5-5.3 [facility] Comment on above: Performed By: #### 2 286482 #### [facility] [address] [place] [address] Protein [Mass/Vol] 7.2 g/dL Normal 6.0-7.8 [facility] Comment on above: Performed By: #### 2 703864 #### [facility] [address] [place] [address] Sodium [Moles/Vol] 141 mmol/L Normal 135-145 [facility] Comment on above: Performed By: #### 2 418105 #### [facility] [address] [place] [address] Urea nitrogen [Mass/Vol] 15 mg/dL Normal 5-21 [facility] Comment on above: Performed By: #### 2 660531 #### [facility] [address] [place] [address] Urea nitrogen/Creatinine [Mass ratio] 14 No Units Normal 10-20 [facility] Comment on above: Performed By: #### 2 404614 #### [facility] [address] [place] [address] HEMATOLOGYOrdered By: SYSTEM SYSTEM on 08-09-2024 Basophils/100 [...] [Mass/Vol] 208 mg/dL High 120-200 [facility] Comment on above: Performed By: #### 2 690412 #### [facility] [address] [place] [address] Cholesterol in HDL [Mass/Vol] 64 mg/dL Invalid Interpretation Code [facility] Comment on above: Result Comment: '>= 60 LOW RISK' '<= 40 HIGH RISK' Performed By: #### 2 234389 #### [facility] [address] [place] [address] Cholesterol in LDL [Mass/Vol] 104 mg/dL Normal <=129 [facility] Comment on above: Performed By: #### 2 974686 #### [facility] [address] [place] [address] Cholesterol in VLDL [Mass/Vol] 36 mg/dL Normal 7-40 [facility] Comment on above: Performed By: #### 2 396311 #### [facility] [address] [place] [address] Triglyceride [Mass/Vol] 182 mg/dL High <=149 [facility] Comment on above: Performed By: #### 2 172511 #### [facility] [address] [place] [address] TSH With T4fr Reflexon 08-09 TSH Qn 2.85 m[IU]/L Normal 0.34-5.60 [facility] Comment on above: Performed By: #### 1 [id number] #### [facility] [address] [place] [address] U MA/Cr Ratioon 08-09-2024 Albumin DL <= 20 mg/L (U) [Mass/Vol] mg/dL Normal 0.0-1.9 [facility] Comment on above: Performed By: #### 1 [id number] #### [facility] [address] [place] [address] Albumin/Creatinine DL <= 20 mg/L (U) [Mass ratio] NOT CALCULATED Invalid Interpretation Code .0-30.0 [facility] Comment on above: Result Comment: 30-3 00 mg/g Cr indicates an increased risk for diabetic nephropathy. >300 mg/g Cr is consistent with clinical nephropathy. Performed By: #### 1 [id number] #### [facility] [address] [place] [address] U Creatinine 127.3 mg/dL Invalid Interpretation Code [facility] Comment on above: Performed By: #### 1 [id number] #### [facility] [address] [place] [address] Vit B12on 08-09-2024 Cobalamin (Vitamin B12) [Mass/Vol] 253 pg/mL Normal 50-1500 [facility] Comment on above: Performed By: #### 2 182274 #### [facility] [address] [place] [address] Vitamin D 25 Hydroxyon 08-09 25-hydroxyvitamin D3 [Mass/Vol] 36.9 ng/mL Normal 30.0-100.0 [facility] Comment on above: Performed By: #### 5 [id number] #### [facility] [address] [place] [address] eGFRon 08-09-2024 eGFR 53 mL/min/1.73 m2 Low >=59 [facility] Comment on above: Performed By: #### 1 [id number] #### [facility] Laboratory [address] [place] [address] Ambulatory Visit Summaryon 1 10-08-2023 Ambulatory Visit [...] Appointments 2023 8:40 AM EST With: Where: [address] [address]- Tuesday 8:45 AM EDT With: Anamaria Chinchilla MD Where: [address] [address]- Thursday Dec. 11, 2025 11:00 AM EST With: Where: [place] [id number]- You Need to Complete the Following CBC [...] Hypercholesterolemia Hyperlipidemia (more content not included)... 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 05/30/2023 14:07 - Neftaly Wolfe: rachana (Last Updated: 07/30/2024 09:55:03 EST by [...] (more content not included)... Normal [facility] Comment on above: Result Comment: [...] Appointments 2023 8:40 AM EST With: Where: [address] [address]- Tuesday 8:45 AM EDT With: Anamaria Chinchilla MD Where: [address] [address]- 2024 11:00 AM EST With: Where: [address] [address]- You Need to Complete the [...] Chronic cough Duration: 7 Days Pickup at [facility] [id number] Unchanged amlodipine (amLODIPine 5 mg Tab) See [...] (more content not included)... Normal [facility] Ambulatory Visit Summary Ambulatory Visit Summary ISAUAR HAYDEN :1950 Visit Date:07/30/2024 Ambulatory Visit Instructions [...] Appointments 2023 8:40 AM EST With: Where: [address] [id number]- Tuesday 8:45 AM EDT With: Anamaria Chinchilla MD Where: [address] [address]- 2024 11:00 AM EST With: Where: [address] [address]- You Need to Complete the Following CBC [...] Chronic cough Duration: 7 Days [facility] [id number] Unchanged amlodipine (amLODIPine 5 mg Tab) See [...] (more content not included)... Normal [facility] Family Medicine Office/Clini c Noteon [...] humorously by the physician as looking like Filipino cheese on X-rays. She uses a bone [...] day(s), # 21 cap(s), Refills(s) 0, Pharmacy: [facility] [id number], 162, cm, 07/30/24 10:07:00 EST, Height/Length Dosing, 75.8, kg, 07/30/24 10:07:00 EST, Weight Dosing CBC w/ Auto Diff TSH With T4fr Reflex Vitamin B12 Level Vitamin D 25 Hydroxy 2. Hypercholesterolemia (E78.00: Pure hypercholesterolemia, unspecified) As below. Ordered: benzonatate, 200 mg = 1 cap(s), Oral, TID, X 7 day(s), # 21 cap(s), Refills(s) 0, Pharmacy: [facility] [id number], 162, cm, 07/30/24 10:07:00 EST, Height/Length Dosing, 75.8, kg, 07/30/24 10:07:00 EST, Weight Dosing CBC w/ Auto Diff TSH With T4fr Reflex Vitamin B12 Level Vitamin D 25 Hydroxy 3. Hyperlipidemia (E78.5: Hyperlipidemia, unspecified) Continue on a statin as before. Ordered: benzonatate, 200 mg = 1 cap(s), Oral, TID, X 7 day(s), # 21 cap(s), Refills(s) 0, Pharmacy: [facility] [id number], 162, cm, 07/30/24 10:07:00 EST, Height/Length Dosing, [...] day(s), # 21 cap(s), Refills(s) 0, Pharmacy: [facility] [id number], 162, cm, 07/30/24 10:07:00 EST, Height/Length Dosing, 75.8, kg, 07/30/24 10:07:00 EST, Weight Dosing CBC w/ Auto Diff Comprehensive Metab (more content not included)... Normal [facility] Comment on above: Result Comment: Elec tronically Signed By: Anamaria Chinchilla MD\.br\Date and Time Signed: 07/30/24 12:21 EST Pre-Visit Planningon 024 Pre-Visit Planning Pre-Visit Planning From: Benita RN, Daly To: Anamaria Chinchilla MD; Sent: 07/27/2024 10:17:56 EST Subject: Pre-Visit Planning Due Date/Time: 07/27/2024 10:17:00 EST Caller Name: ISAURA HAYDEN; Caller Number: , Elton Chinchilla, During a pre-visit planning chart review, [...] feel free to contact me at extension [phone]. Thank you! Daly Joy, ALEXN, RN, CCM, CCDS, CCDS-O CDI [employer] Sales Agent [place] [address] P: [phone] F: [phone] [email or web address] From: Amor SHORT, Anamaria Harvey To: Benita MENJIVAR, Daly; Sent: 07/30/2024 15:17:44 EST Subject: RE: Pre-Visit Planning Caller Name: ISAURA HAYDEN; Caller Number: Adrian , M I could not address this today. Thanks Normal [facility] Family Medicine Office/Clini c Noteon 07-13-2024 Family [...] but she wanted to be checked before . Review of Systems PHQ Score Initial Depression [...] in 3-5 days Ordered: Rapid Strep POC 57151 Follow-up No qualifying data available Patient Education Pharyngitis, Qmnh-yw-Irmu Problem List/Past Medical History Ongoing Age-related osteoporosis [...] Strep POC Result: Negative (07/13/24 11:52:00) Normal [facility] Comment on above: Result Comment: [...] Locations R1: This test was performed at: [facility], [address] [place] [address], [address], Normal [facility] Comment on above: Performed By: #### 2 [id number] #### [facility] Laboratory [address] [place] [address] Ambulatory Visit Summaryon 0 05-07-2024 Ambulatory Visit [...] EST With: Amor SHORT, Anamaria Harvey Where: [address] [id number]- Tuesday 11:00 AM EST With: Where: [address] [address]- Medications What How Much When Instructions Unchanged [...] us for your care. Normal [facility] Family Medicine Office/Clini c Noteon 05-07-2024 Family Medicine Office/Clinic Note Family Medicine [...] day(s), # 14 cap(s), Refills(s) 0, Pharmacy: [facility] [id number], 162, cm, 05/07/24 14:07:00 EDT, Height/Length Dosing, 76, kg, 05/07/24 14:07:00 EDT, Weight Dosing Body Mass Index (BMI) documented 3008F Current tobacco non-user 1036F Depression Screening Negative 3352F E&M of Est. Patient Low 20-29 Min 08320 Influenza immunization status assessed 1030F Medication list [...] Urnls Dip Stick Auto w/o Microscopy POC 476[address] 2. Non-smoker (Z78.9: Other specified health status) - Please continue to not smoke Ordered: doxycycline, 100 mg = 1 cap(s), Oral, BID, X 7 day(s), # 14 cap(s), Refills(s) 0, Pharmacy: [facility] [id number], 162, cm, 05/07/24 14:07:00 EDT, Height/Length Dosing, 76, kg, 05/07/24 14:07:00 EDT, Weight Dosing Body Mass Index (BMI) documented 3008F Current tobacco non-user 1036F Depression Screening Negative 3352F E&M of Est. Patient Low 20-29 Min 25095 Influenza immunization status assessed 1030F Medication list [...] day(s), # 14 cap(s), Refills(s) 0, Pharmacy: [facility] [id number], 162, cm, 05/07/24 14:07:00 EDT, Height/Length Dosing, 76, kg, 05/07/24 14:07:00 EDT, Weight Dosing Body Mass Index (BMI) documented 3008F Current tobacco non-user 1036F Depression Screening Negative 3352F E&M of Est. Patient Low 20-29 Min 61087 Influenza immunization status assessed 1030F Medication list [...] day(s), # 14 cap(s), Refills(s) 0, Pharmacy: [facility] [id number], 162, cm, 05/07/24 14:07:00 EDT, Height/Length Dosing, 76, kg, 05/07/24 14:07:00 EDT, Weight Dosing Body Mass Index (BMI) documented 3008F Current tobacco non-user 1036F Depression Screening Negative 3352F E&M of Est. Patient Low 20-29 Min 11523 Influenza immunization status assessed 1030F Medication list [...] with stage 3a (more content not included)... [facility] Comment on above: Result Comment: Elec tronically Signed By: Amor SHORT, Anamaria Harvey\.br\Date and Time Signed: 05/07/24 14:35 EDT Dexa Scanson 02-08-2024 Dexa Scans [id number]#1.0 0TIFF [facility] Consultation Noteon 02-07-20 Consultation Note [id number]#1.0 0TIFF [facility] RAD - MISCon 02-02-2024 [facility] [id number]#1.0 0TIFF [facility] [id number]#1.0 0TIFF [facility] Consultation Noteon 01-30-20 Consultation Note [id number]#1.0 0TIFF [facility] Consultation Noteon 12-26-19 Consultation Note [id number]#1.0 0TIFF [facility] RAD - MISCon 12-21-2023 RAD - MISC [id number]#1.0 0TIFF Normal [facility] RAD - MISC [id number]#1.0 0TIFF Normal [facility] Consultation Noteon 12-09-19 Consultation Note [id number]#1.0 0TIFF Normal [facility] Consultation Noteon 11-24-19 Consultation Note [id number]#1.0 0TIFF Normal [facility] Discharge Documentationon Discharge Documentation [id number]#1.0 0TIFF Normal [facility] Cytologyon 11-14-2023 Cytology Normal [facility] Comment on above: Result Comment: [facility] [address] [place] [address] Cytology Consultation Patient Name:ISAURA HAYDEN:1950 (Age: 73)Gender:FTaken:11/14/2023eported:11/16/2023 14:25Physician(s):Nabil Lord M.D. ([phone])Copy To: Rec. #:[id number]: #[id number] Final Cytologic Diagnosis Pelvic washings: No malignant cells identified. k/11/16/2023 Interpretation performed at [facility], [address] [place] [address], License number: [id number].Electronically Signed Out By Edie Day MD Clinical History Thickened endometrium/ post menopausal bleeding/ cervical stenosis. Gross Description Received was 35mL of clear colorless fluid unfixed labeled as Catr[place], pelvic washings . CytoLyt added in lab. Unable to obtain cellblock, ThinPrep made. 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 Comment on above: Result Comment: [facility] [address] [place] [address] Surgical Pathology Consultation Patient Name:ISAURA HAYDEN:1950 (Age: 73)Gender:FTaken:4Reported:4Physician(s):Nabil Lord M.D. ([phone])Copy To: Rec. #:[id number]: #[id number] Final Pathologic Diagnosis Uterus, cervix, bilateral fallopian tubes, bilateral ovaries, TAHBSO: Cervix with no significant histopathologic abnormality Endometrium with cystic atrophy Myometrium with adenomyosis Bilateral adnexa with no significant histopathologic abnormality Report Electronically Signed Out nsk/11/16/2023Edie Day MD Interpretation performed at [facility], [address] [place] [address], License number: [id number]. Clinical History Thickened endometrium, postmenopausal bleeding, cervical [...] ovary L-N Remainder of endometrium (14, ss, [id number], A- K, m6) [place] [facility] [place]GR Specimen(s) Received Uterus, cervix, bilateral fallopian tubes, bilateral ovaries Fee Codes(s): 1; 75958 Consultation Noteon 11-10-19 Consultation Note [id number]#1.0 0TIFF Normal [facility] CBC AND AUTO DIFFon 11-09-19 ABSOLUTE BASOPHIL 0.1 X10E9/L Normal 0.0-0.2 [facility] Comment on above: Performed By: #### C BCA, CMP #### [facility] ([id number]) [address], [address] [place] [address] ABSOLUTE NEUTROPHIL 3.1 X10E9/L Normal 1.5-6.6 [facility] Comment on above: Performed By: #### C BCA, CMP #### [facility] ([id number]) [address], [address] [place] [address] Basophils/100 WBC (Bld) 0.9 % Normal [facility] Comment on above: Performed By: #### C REBEKA, CMP #### [facility] ([id number]) [address], [address] [place] [address] Eosinophils (Bld) [#/Vol] 0.2 10*3/uL Normal 0.0-0.4 [facility] Comment on above: Performed By: #### C REBEKA, CMP #### [facility] ([id number]) [address], [address] [place] [address] Eosinophils/100 WBC (Bld) 4.3 % Normal [facility] Comment on above: Performed By: #### C REBEKA, CMP #### [facility] ([id number]) [address] [place] [address] Erythrocyte distribution width (RBC) [Ratio] 13.1 % Normal 11.5-15.0 [facility] Comment on above: Performed By: #### C REBEKA, CMP #### [facility] ([id number]) [address] [place] [address] Hematocrit (Bld) [Volume fraction] 35.6 % Normal 35-47 [facility] Comment on above: Performed By: #### C BCA, CMP #### [facility] ([id number]) [address] [place] [address] Hemoglobin (Bld) [Mass/Vol] 12.4 g/dL Normal 11.7-15.5 [facility] Comment on above: Performed By: #### C BCA, CMP #### [facility] ([id number]) [address] [address] [place] [address] Lymphocytes (Bld) [#/Vol] 1.7 10*3/uL Normal 1.0-3.5 [facility] Comment on above: Performed By: #### C BCA, CMP #### [facility] ([id number]) [address] [facility] [address] [place] [address] Lymphocytes/100 WBC (Bld) 31.2 % Normal [facility] Comment on above: Performed By: #### C BCA, CMP #### [facility] ([id number]) [address] [address] [place] [address] MCH (RBC) [Entitic mass] 33.3 pg Normal 27-34 [facility] Comment on above: Performed By: #### C BCA, CMP #### [facility] ([id number]) [address] [address] [place] [address] MCHC (RBC) [Mass/Vol] 34.7 g/dL Normal 32-36 [facility] Comment on above: Performed By: #### C BCA, CMP #### [facility] ([id number]) [address] [address] [place] [address] MCV (RBC) [Entitic vol] 96 fL Normal 80-100 [facility] Comment on above: Performed By: #### C BCA, CMP #### [facility] ([id number]) [address] [address] [place] [address] Monocytes (Bld) [#/Vol] 0.5 10*3/uL Normal 0-0.9 [facility] Comment on above: Performed By: #### C BCA, CMP #### [facility] ([id number]) [address] [place] [address] Monocytes/100 WBC (Bld) 8.2 % Normal [facility] Comment on above: Performed By: #### C REBEKA, CMP #### [facility] ([id number]) [address] [place] [address] Neutrophils/100 WBC (Bld) 55.4 % Normal [facility] Comment on above: Performed By: #### C REBEKA, CMP #### [facility] ([id number]) [address] [place] [address] Platelet mean volume (Bld) [Entitic vol] 8.2 fL Normal 7-12 [facility] Comment on above: Performed By: #### C REBEKA, CMP #### [facility] ([id number]) [address] [address] [place] [address] Platelets (Bld) [#/Vol] 284 10*3/uL Normal 150-450 [facility] Comment on above: Performed By: #### C REBEKA, CMP #### [facility] ([id number]) [address] [address] [place] [address] RBC COUNT 3.72 X10E12/L Low 3.80-5.20 [facility] Comment on above: Performed By: #### C REBEKA, CMP #### [facility] ([id number]) [address] [place] [address] WBC (Bld) [#/Vol] 5.6 10*3/uL Normal 4.0-11.0 [facility] Comment on above: Performed By: #### C REBEKA, CMP #### [facility] ([id number]) [address] [place] [address] COMPREHENSIVE METABOLIC PANE Rashi 11-09-2023 Albumin [Mass/Vol] 4.5 g/dL Normal 3.2-5.3 [facility] [place] Comment on above: Performed By: #### C BCA, CMP #### [facility] ([id number]) [address] [place] [address] ALP [Catalytic activity/Vol] 48 U/L Normal 39-130 [facility] Comment on above: Performed By: #### C BCA, CMP #### [facility] ([id number]) [address] [place] [address] ALT [Catalytic activity/Vol] 14 U/L Normal 0-31 [facility] Comment on above: Performed By: #### C BCA, CMP #### [facility] ([id number]) [address] [place] [address] Anion gap [Moles/Vol] 9 mmol/L Normal 5-15 [facility] Comment on above: Performed By: #### C BCA, CMP #### [facility] ([id number]) [address] [place] [address] AST [Catalytic activity/Vol] 20 U/L Normal 0-41 [facility] Comment on above: Performed By: #### C BCA, CMP #### [facility] ([id number]) [address] [place] [address] Bilirubin [Mass/Vol] 0.5 mg/dL Normal 0.3-1.2 [facility] Comment on above: Performed By: #### C BCA, CMP #### [facility] ([id number]) [address] [place] [address] Calcium [Mass/Vol] 9.2 mg/dL Normal 8.5-10.5 [facility] [place] Comment on above: Performed By: #### C BCA, CMP #### [facility] ([id number]) [address] [place] [address] Chloride [Moles/Vol] 106 mmol/L Normal 98-109 [facility] Comment on above: Performed By: #### C BCA, CMP #### [facility] ([id number]) [address] [place] [address] CO2 [Moles/Vol] 28 mmol/L Normal 22-32 [facility] Comment on above: Performed By: #### C BCA, CMP #### [facility] ([id number]) [address] [place] [address] Creatinine [Mass/Vol] 1.17 mg/dL High 0.40-1.00 [facility] Comment on above: Result Comment: METH OD TRACEABLE TO IDMS STANDARD Performed By: #### C BCA, CMP #### [facility] ([id number]) [address], [address] [place] [address] GFR/1.73 sq M.predicted among non-blacks MDRD (S/P/Bld) [Vol rate/Area] 50 mL/min/{1.73_m2} Low >59 [facility] Comment on above: Result Comment: Reported eGFR is based on the CKD-EPI 2020 equation that does not use a race coefficient. Performed By: #### C BCA, CMP #### [facility] ([id number]) [address] [place] [address] Glucose [Mass/Vol] 110 mg/dL High 65-99 [facility] [place] Comment on above: Performed By: #### C BCA, CMP #### [facility] ([id number]) [address] [place] [address] Potassium [Moles/Vol] 4.1 mmol/L Normal 3.5-5.0 [facility] Comment on above: Performed By: #### C BCA, CMP #### [facility] ([id number]) [address] [place] [address] Protein [Mass/Vol] 7.2 g/dL Normal 6.0-8.0 [facility] Comment on above: Performed By: #### C BCA, CMP #### [facility] ([id number]) [address] [place] [address] Sodium [Moles/Vol] 143 mmol/L Normal 134-146 [facility] Comment on above: Performed By: #### C BCA, CMP #### [facility] ([id number]) [address] [place] [address] Urea nitrogen [Mass/Vol] 18 mg/dL Normal 5-27 [facility] Comment on above: Performed By: #### C BCA, CMP #### [facility] ([id number]) [address] [place] [address] XR CHEST 2 VWSon 11-09-2023 XR CHEST 2 VWS XR CHEST 2 VWS History: Preop testing Exam/Technique: PA and lateral chest Comparison: None Findings: There is no evidence of active pulmonary or pleural disease. Cardiac and mediastinal contours are within normal limits. IMPRESSION: No evidence of active pulmonary disease demonstrated. Finalized by Lewis Lyn MD on 11/09/2023 10:52 AM Normal [facility] Consultation Noteon 10-25-19 Consultation Note [id number]#1.0 0TIFF Normal [facility] Consultation Noteon 10-03-19 Consultation Note [id number]#1.0 0TIFF Normal [facility] RAD - MISCon 10-03-2023 RAD - MISC [id number]#1.0 0TIFF Normal [facility] Consultation Noteon 09-29-19 Consultation Note [id number]#1.0 0TIFF Normal [facility] Consultation Noteon 09-21-19 Consultation Note [id number]#1.0 0TIFF Normal [facility] Dexa Scanson 09-21-2023 Dexa Scans [id number]#1.0 0TIFF Normal [facility] Consultation Noteon 09-12-19 Consultation Note [id number]#1.00 TIFF Normal [facility] Patient Logson 09-02-2023 Patient Logs [id number]#1.00 TIFF Normal [facility] Ambulatory Visit Summaryon 0 09-01-2023 [...] AM EST With: Anamaria Chinchilla MD Where: [address] [address]- \.br\ Medications\.br\ What How Much When Instructions\.br\ [...] us for your care.\.br\ \.br\ [facility] Consultation Noteon 09-01-19 Consultation Note [id number]#1.0 0TIFF Normal [facility] Family Medicine Office/Clini c Noteon [...] 96.3 fL (05/11/23) Chloride: 108 mmol/L (05/11/23) [place] Absolute: 0.4 E9/L (05/11/23) CO2: 27 mmol/L (05/11/23) [place] Auto: 7.8 % (05/11/23) Creatinine: 1.3 mg/dL [...] 73 year old female patient of Dr. hCinchilla presents today for elevated B/P. Patient states [...] (more content not included)... Normal [facility] Comment on above: Result Comment: [...] (more content not included)... Normal [facility] Consultation Noteon 08-24-19 Consultation Note [id number]#1.0 0TIFF Normal [facility] RAD - CT Reporton 08-24-2023 RAD - CT Report [id number]#1.0 0TIFF [facility] Operative Reporton Operative Report [id number]#1.0 0TIFF Normal [facility] Patient Correspondenceon Patient Correspondence [id number]#1.0 0TIFF Normal [facility] Provider Letteron 08-12-2023 Provider Letter [address] [place] [id number] August 12, 2023 ISAURA HAYDEN [address] [address] : [address] Das, The above patient has been evaluated at your request for preoperative clearance. After assessment of available pertinent labs and diagnostic tests, I feel this patient is medically optimized for surgery. Final discretion of whether the patient is cleared for surgery remains up to the surgeon/anesthesiologi st. Thank you, YISEL Vásquez [facility] Ambulatory Visit Summaryon 1 10-12-2022 Ambulatory Visit [...] AM EST With: Anamaria Chinchilla MD Where: [place] [id number]- \.br\ Medications\.br\ What How Much When Instructions\.br\ [...] choosing us for your care.\.br\ \.br\ [facility] Family Medicine Office/Clini c Notejustin 08-11-2023 Family Medicine Office/Clinic Note HPI Staff Isaura is a 73 year old female presenting for surgical clearance Had EKG on Tuesday and Dr Das asked for a clearance Pt is having D&C on 08/12/[address] Das History of Present Illness - No CP, SOB - [place] stopping - EKG was Nondiagnostic for [...] Given Postpone due to refusal SARS-CoV-2 mRNA (alannaeran 5y-11y) vac - Not Given Postpone due to refusal pneumococcal 23-valent vaccine 07/24/2019 Recorded pneumococcal 13-valent vaccine 07/21/2018 Recorded hepatitis A adult vaccine 11/08/2016 Recorded hepatitis A adult vaccine 05/05/2016 Recorded influenza virus vaccine, inactivated 07/12/2014 Recorded influenza virus vaccine, inactivated 06/05/2013 Recorded influenza virus vaccine, inactivated 05/18/2012 Recorded influenza virus vaccine, inactivated 05/17/2011 Recorded pneumococcal 23-valent vaccine 06/25/2008 Recorded Normal [facility] Comment on above: Result Comment: [...] E12/L Low 4.3 - 5.9 E12/L [facility] HemeAutoSS WBC corrected for nucl RBC Auto [...] PM) Normal Negative [facility] UA Auto SS [place].plasma/Lith ium.RBC (Bld) [Mass ratio] 0-3 /HPF Normal [...] Desc Clean Catch (05/11/23 12:05 PM) Normal [facility]A Auto SS Urobilinogen Qn (U) 0.6273540 {Leon'U}/dL Normal 0.0 - 1.0 EU/dL [facility] Auto SS WBC Auto Ql (U) 1+ *ABN* (05/11/23 12:05 PM) Invalid Interpretation Code Negative [facility] UA Auto SS WBC LM.HPF (Urine sed) [#/Area] 0-5 /HPF Normal 0-5/HPF [facility] UA Auto SS CULTURE URINEon 07-06-2022 CULTURE URINE Culture Observations : LIGHT GROWTH OF MIXED GENITAL NAN. NO POTENTIAL PATHOGENS SEEN. Normal [facility] Comment on above: Performed By: #### U RCX #### [facility] [address] [place] [address] Dr. Melchor Brock UA (CLEAN/CATCH) MICROSCOPIC IF INDICATEon 07-06-2022 Bilirubin Ql (U) Negative Normal NEGATIVE [facility] Comment on above: Performed By: #### U MICRO, UARMICR #### [facility] [address] [place] [address] [address] Melchor Brock Clarity (U) CLEAR Normal CLEAR [facility] Comment on above: Performed By: #### U MICRO, UARMICR #### [facility] [address] [place] [address] [address] Melchor Brock Color (U) LT. YELLOW Normal YELLOW [facility] Comment on above: Performed By: #### U MICRO, UARMICR #### [facility] [address] [place] [address] Dr. Melchor Brock Glucose Ql (U) Negative Normal NEGATIVE [facility] Comment on above: Performed By: #### U MICRO, UARMICR #### [facility] [address] [place] [address] Dr. Melchor Brock Hemoglobin Ql (U) TRACE-INTACT Abnormal NEGATIVE [facility] Comment on above: Performed By: #### U MICRO, UARMICR #### [facility] [address] [place] [address] Dr. Melchor Brock Ketones Ql (U) Negative Normal NEGATIVE [facility] Comment on above: Performed By: #### U MICRO, UARMICR #### [facility] [address] [place] [address] Dr. Melchor Brock LEUKOCYTES TRACE Abnormal NEGATIVE [facility] Comment on above: Performed By: #### U MICRO, UARMICR #### [facility] [address] [place] [address] Dr. Melchor Brock Nitrite Ql (U) Negative Normal NEGATIVE [facility] Comment on above: Performed By: #### U MICRO, UARMICR #### [facility] [address] [place] [address] [address] Melchor Brock pH (U) 6.0 [pH] Normal 5-9 [facility] Comment on above: Performed By: #### U MICRO, UARMICR #### [facility] [address] [place] [address] Dr. Melchor Brock SPEC GRAVITY 1.020 Normal 1.005-<=1.025 [facility] Comment on above: Performed By: #### U MICRO, UARMICR #### [facility] [address] [place] [address] [address] Melchor Brock UA PROTEIN Negative Normal NEGATIVE/ TRACE [facility] Comment on above: Performed By: #### U MICRO, UARMICR #### [facility] [address] [place] [address] [address] Melchor Brock UR MICRO IND INDICATED Normal [facility] Comment on above: Performed By: #### U MICRO, UARMICR #### [facility] [address] [place] [address] [address] Melchor Brock Urobilinogen Qn (U) 0.2 {Leon'U}/dL Normal 0.2 - 1. 0 [facility] Comment on above: Performed By: #### U MICRO, UARMICR #### [facility] [address] [place] [address] Dr. Melchor Brock URINE MICROSCOPIC ONLYon BACTERIA NONE SEEN Normal NONE SEEN [facility] Comment on above: Performed By: #### G SHON, LIPID #### [facility] [address] [place] [address] Dr. Melchor Brock Bacteria identified Cx Nom (U) CX ALREADY ORDERED Normal [facility] Comment on above: Performed By: #### G SHON, LIPID #### [facility] [address] [place] [address] Dr. Melchor Brock CAST NONE SEEN Normal NONE SEEN [facility] Comment on above: Performed By: #### G SHON, LIPID #### [facility] [address] [place] [address] Dr. Melchor Brock Crystals LM Nom (Urine sed) NONE SEEN Normal NONE SEEN [facility] Comment on above: Performed By: #### G SHON, LIPID #### [facility] [address] [place] [address] Dr. Melchor Brock Epithelial cells LM Ql (Urine sed) RARE Normal NONE SEEN /RARE [facility] Comment on above: Performed By: #### G SHON, LIPID #### [facility] [address] [place] [address] [address] Melchor Brock MUCOUS NONE SEEN Normal NONE SEEN [facility] Comment on above: Performed By: #### G SHON, LIPID #### [facility] [address] [place] [address] [address] Melchor Brock RBC 0-2 Normal 0-2 [facility] Comment on above: Performed By: #### G SHON, LIPID #### [facility] [address] [place] [address] [address] Melchor Brock WBC 0-2 Abnormal NONE SEEN [facility] Comment on above: Performed By: #### G SHON, LIPID #### [facility] [address] [place] [address] [address] Melchor Brock MG MAMM SCREEN 3D SARAHI CADon 03-15-2022 MG MAMM SCREEN 3D SARAHI CAD Patient: ISAURA HAYDEN Exam Date: 03/15/2022 : 1950 Gender:F Ordering : DR FARA BOOKER . Admission #: [id number] Family : Order #: [id number] CLICK HERE TO VIEW EXAM RADIOLOGY REPORT [...] lung cancer at age 72. LOCATION: [facility] BREAST COMPOSITION: Heterogeneously dense,which may [...] Cárdenas M.D. on 03/15/2022 at 11:41 Normal [facility] GLUCOSE BLOODon 02-09-2022 Glucose [Mass/Vol] 99 mg/dL Normal 74-106 [facility] Comment on above: Performed By: #### G SHON, LIPID #### [facility] [address] [place] [address] [address] Melchor Brock LIPID PROFILEon 02-09-2022 CHOL-HDL RATIO NORM SEE BELOW Normal [facility] Comment on above: Result Comment: 3.3 - 4.4 LOW RISK 4.4 - 7.1 AVERAGE RISK 7.1 - 11.0 MODERATE RISK >11.0 HIGH RISK Performed By: #### G SHON, LIPID #### [facility] [address] [place] [address] [address] Melchor Brock Cholesterol [Mass/Vol] 202 mg/dL Critically high <=200 [facility] Comment on above: Performed By: #### G SHON, LIPID #### [facility] [address] [place] [address] [address] Melchor Brock Cholesterol in HDL [Mass/Vol] 56 mg/dL Normal 40-60 [facility] Comment on above: Performed By: #### G SHON, LIPID #### [facility] [address] [place] [address] [address] Melchor Brock Cholesterol in LDL [Mass/Vol] 112.6 mg/dL Normal [facility] Comment on above: Performed By: #### G SHON, LIPID #### [facility] [address] [place] [address] [address] Melchor Brock Cholesterol.total/C holesterol in HDL [Mass ratio] 3.6 {ratio} Normal [facility] Comment on above: Performed By: #### G SHON, LIPID #### [facility] [address] [place] [address] [address] Melchor Brock HDL NORMAL > or = 60 mg/dl - LO W CARDIOVASCULAR RISK <40 mg/dl - HIGH CARDIOVASCULAR RISK Normal [facility] Comment on above: Performed By: #### G SHON, LIPID #### [facility] [address] [place] [address] [address] Melchor Brock LDL CALC NORMAL SEE BELOW Normal [facility] Comment on above: Result Comment: <100 mg/dl OPTIMAL 100 - 129 mg/dl NEAR OR ABOVE OPTIMAL 130 - 159 mg/dl BORDERLINE HIGH 160 - 189 mg/dl HIGH >190 mg/dl VERY HIGH Performed By: #### G SHON, LIPID #### [facility] [address] [place] [address] [address] Melchor Brock Triglyceride [Mass/Vol] 167 mg/dL Critically high <=150 [facility] Comment on above: Performed By: #### G SHON, LIPID #### [facility] [address] [place] [address] [address] Melchor Brock VLDL CALC 33.4 mg/dL Normal [facility] Comment on above: Performed By: #### G SHON, LIPID #### [facility] [address] [place] [address] [address] Melchor Brock LIPID PROFILEon 11-05-2021 CHOL-HDL RATIO NORM SEE BELOW Normal [facility] Comment on above: Result Comment: 3.3 - 4.4 LOW RISK 4.4 - 7.1 AVERAGE RISK 7.1 - 11.0 MODERATE RISK >11.0 HIGH RISK Performed By: #### L IPID, BMP #### [facility] [address] [place] [address] [address] Melchor Brock Cholesterol [Mass/Vol] 244 mg/dL Critically high <=200 [facility] Comment on above: Performed By: #### L IPID, BMP #### [facility] [address] [place] [address] [address] Melchor Brock Cholesterol in HDL [Mass/Vol] 60 mg/dL Normal 40-60 [facility] Comment on above: Performed By: #### L IPID, BMP #### [facility] [address] [place] [address] [address] Melchor Brock Cholesterol in LDL [Mass/Vol] 158.4 mg/dL Normal [facility] Comment on above: Performed By: #### L IPID, BMP #### [facility] [address] [place] [address] Dr. Melchor Brock Cholesterol.total/C holesterol in HDL [Mass ratio] 4.1 {ratio} Normal [facility] Comment on above: Performed By: #### L IPID, BMP #### [facility] [address] [place] [address] [address] Melchor Brock HDL NORMAL > or = 60 mg/dl - LO W CARDIOVASCULAR RISK <40 mg/dl - HIGH CARDIOVASCULAR RISK Normal [facility] Comment on above: Performed By: #### L IPID, BMP #### [facility] [address] [address] [address] Melchor Brock LDL CALC NORMAL SEE BELOW Normal [facility] Comment on above: Result Comment: <100 mg/dl OPTIMAL 100 - 129 mg/dl NEAR OR ABOVE OPTIMAL 130 - 159 mg/dl BORDERLINE HIGH 160 - 189 mg/dl HIGH >190 mg/dl VERY HIGH Performed By: #### L IPID, BMP #### [facility] [address] [place] [address] Dr. Melchor Brock Triglyceride [Mass/Vol] 128 mg/dL Normal <=150 [facility] Comment on above: Performed By: #### L IPID, BMP #### [facility] [address] [place] [address] Dr. Melchor Brock VLDL CALC 25.6 mg/dL Normal [facility] Comment on above: Performed By: #### L IPID, BMP #### [facility] [address] [place] [address] Dr. Melchor Brock PROF CHEM 8 (BAS METB)on Anion gap [Moles/Vol] 10.7 mmol/L Normal [facility] Comment on above: Performed By: #### L IPID, BMP #### [facility] [address] [place] [address] Dr. Melchor Brock Calcium [Mass/Vol] 7.8 mg/dL Critically low 8.4-10.2 [facility] Comment on above: Performed By: #### L IPID, BMP #### [facility] [facility] [address] [place] [address] Dr. Melchor Brock Chloride [Moles/Vol] 103 mmol/L Normal 98-107 [facility] Comment on above: Performed By: #### L IPID, BMP #### [facility] [address] [address] [address] Melchor Brock CO2 [Moles/Vol] 28.4 mmol/L Normal 22.0-30.0 [facility] Comment on above: Performed By: #### L IPID, BMP #### [facility] [address] [address] [address] Melchor Brock Creatinine [Mass/Vol] 1.05 mg/dL Critically high 0.52-1.04 [facility] Comment on above: Performed By: #### L IPID, BMP #### [facility] [address] [address] [address] Melchor Brock EGFR-AF IVORIAN >60 Normal >=60 [facility] Comment on above: Performed By: #### L IPID, BMP #### [facility] [address] [place] [address] Dr. Melchor Brock EGFR-NON AF IVORIAN 52 mL/min/1.73m2 Critically low >=60 [facility] Comment on above: Performed By: #### L IPID, BMP #### [facility] [address] [place] [address] Dr. Melchor Brock Glucose [Mass/Vol] 98 mg/dL Normal 74-106 [facility] Comment on above: Performed By: #### L IPID, BMP #### [facility] [address] [place] [address] Dr. Melchor Brock Potassium [Moles/Vol] 4.1 mmol/L Normal 3.4-5.0 [facility] Comment on above: Performed By: #### L IPID, BMP #### [facility] [address] [place] [address] Dr. Melchor Brock Sodium [Moles/Vol] 138 mmol/L Normal 137-145 [facility] Comment on above: Performed By: #### L IPID, BMP #### [facility] [address] [address] [address] Melchor Brock Urea nitrogen [Mass/Vol] 15.0 mg/dL Normal 7.0-17.0 [facility] Comment on above: Performed By: #### L IPID, BMP #### [facility] [address] [address] [address] Melchor Brock Urea nitrogen/Creatinine [Mass ratio] 14.3 mg/mg Normal [facility] Comment on above: Performed By: #### L IPID, BMP #### [facility] [address] [address] [address] Melchor Brock ECHOCARDIO M/2D COMPLETEon 0 10-05-2021 ECHOCARDIO M/2D COMPLETE Patient: ISAURA HAYDEN Exam Date: 10/05/2021 : 1950 Gender:F Ordering : DR ANJELICA GAMBINO . Admission #: [id number] Family : Order #: [id number] CLICK HERE TO VIEW EXAM ECHOCARDIOGRAM REPORT [...] Area(A4C): 20.70 cm2 Left Atrium Systolic Volume(A2C): 36748 mm3 Left Atrium Systolic Volume(A4C): 84427 mm3 Mitral Valve MV E to A Ratio: 1.10 Deceleration [place]: 7410 mm/s2 Mitral Valve A-Wave Peak Velocity: [...] Coy Dove M.D. on 10/06/2021 at 08:32 [facility] XR DEXA BONE DENSITYon 09-18 [...] by: KVNG TILLMAN Date: 2021-09-18 10:56 Normal [facility] DEXA BONE DENSITY AXIAL SKEL [...] necksInterpreted by:ARLEY Valenciaigned by:Lora Mondragon MD09/12/18Final result [facility] DIGITAL SCREEN BILATERAL on 09-12-2017 [facility] DIGITAL SCREEN BILATERAL REPORT: BILATERAL [...] NEGATIVE)Interpreted by:ARLEY Valenciaigned by:Lora Mondragon MD09/12/18Final result [facility] Vital Signs Date Time Vital Sign Value Performing Clinician Facility 08-28-2024 09:11-0500 Body mass index (BMI) [Ratio] 29.01 kg/m2 Bentley Pippa [employer] Work Phone: [facility] 08-28-2024 09:11-0500 Body weight 76.66 kg Bentley Pippa DO Work Phone: [facility] 08-28-2024 09:11-0500 Diastolic blood pressure 70 mm[Hg] Bentley Pippa DO Work Phone: [facility] 08-28-2024 09:11-0500 Systolic blood pressure 120 mm[Hg] Bentley Pippa DO Work Phone: [facility] 12-27-2023 10:45-0400 Body height 162.6 cm Mary Pennington PA Work Phone: [facility] [employer] [facility] 12-27-2023 10:45-0400 Body mass index (BMI) [Ratio] 28.65 kg/m2 Mary Pennington PA Work Phone: [facility] [employer] [facility] 12-27-2023 10:45-0400 Body temperature 97.81 [degF] Mary Pennington PA Work Phone: [facility] 12-27-2023 10:45-0400 Body weight 75.75 kg Mary Pennington PA Work Phone: [facility] [employer] 12-27-2023 10:45-0400 Diastolic blood pressure 71 mm[Hg] Mary Pennington PA Work Phone: [facility] [employer] [facility] 12-27-2023 10:45-0400 Heart rate 57 /min Mary Pennington PA Work Phone: [facility] [employer] [facility] 12-27-2023 10:45-0400 Respiratory rate 16 /min Mary Pennington PA Work Phone: [facility] [employer] 12-27-2023 10:45-0400 SaO2% (BldA) [Mass fraction] 99 % Mary Pennington PA Work Phone: [facility] 12-27-2023 10:45-0400 Systolic blood pressure 148 mm[Hg] Mary Pennington PA Work Phone: [facility] 11-29-2023 10:41-0400 Body height 162.6 cm Mary Pennington PA Work Phone: [employer] 11-29-2023 10:41-0400 Body mass index (BMI) [Ratio] 28.48 kg/m2 [facility] Pen[facility]ton [facility] 11-29-2023 10:41-0400 Body temperature 97.81 [degF] Mary Pennington PA [facility] 11-29-2023 10:41-0400 Body weight 75.3 kg Mary Pennington PA [facility] 11-29-2023 10:41-0400 Diastolic blood pressure 71 mm[Hg] Mary Pennington PA Work Phone: [employer] 11-29-2023 10:41-0400 Heart rate 57 /min Mary Pennington PA [facility] 11-29-2023 10:41-0400 Respiratory rate 16 /min Mary Pennington PA Work Phone: [employer] 11-29-2023 10:41-0400 SaO2% (BldA) [Mass fraction] 100 % Mary Pennington PA Work Phone: [employer] 11-29-2023 10:41-0400 Systolic blood pressure 142 mm[Hg] Mary Pennington PA Work [facility]: [facility] 11-07-2023 10:32-0400 Body height 162.6 cm [facility] [employer] 11-07-2023 10:32-0400 Body mass index (BMI) [Ratio] 28.15 kg/m2 [facility] 11-07-2023 10:32-0400 Body weight 74.39 kg [facility] 10-26-2023 14:38-0500 Body temperature 98.29 [degF] Nabil Lord MD Work Phone: [employer] [facility] 10-26-2023 14:38-0500 Diastolic blood pressure 90 mm[Hg] Nabil Lord MD Work [facility]: [facility] 10-26-2023 14:38-0500 Heart rate 67 /min Nabil Lord MD Work Phone: [employer] 10-26-2023 14:38-0500 SaO2% (BldA) [Mass fraction] 98 % [facility]abil Lord [facility] 10-26-2023 14:38-0500 Systolic blood pressure 158 mm[Hg] Nabil Lord MD [facility] 10-26-2023 14:35-0500 Body mass index (BMI) [Ratio] 29.18 kg/m2 Nabil Lord MD [facility] 10-26-2023 14:35-0500 Body weight 77.11 kg Nabil Lord MD Work Phone: [facility] Encounters Encounter Date Encounter Type Care Provider Facility Start: 08-01-2025 ambulatory Anamaria Chinchilla Facility :[facility] Start: 01-28-2025 End: 01-28-2025 ambulatory Anamaria Chinchilla Facility:[facility] Start: 10-19-2024 End: 10-19-2024 Lab Drop off Violet L Leonidas [facility] Start: 10-19-2024 End: 10-19-2024 ambulatory Violet L Leonidas Facility:[facility] Start: 10-05-2024 End: 10-05-2024 Clinisync Result Encounter Bentley Pippa DO Work Phone: [facility] Unsolicited Start: 10-05-2024 End: 10-05-2024 Clinisync Result Encounter Bentley Pippa DO Work Phone: [facility] Unsolicited Start: 09-17-2024 End: 09-17-2024 ambulatory Violet L Leonidas Facility:[facility] [place] Start: 09-11-2024 End: 09-11-2024 ambulatory Kushal Sawnidhi Way[place] Facility:[facility] Start: 09-10-2024 End: 09-10-2024 ambulatory Anamaria Chinchilla Facility:[facility] [place] Start: 08-28-2024 End: 08-28-2024 Bamboo flowsheet Bentley [...] Start: 08-27-2024 End: 08-27-2024 ambulatory Anamaria Chinchilla Facility: [facility] [place] Start: 08-09-2024 End: 08-09-2024 Lab Drop off Anamaria Chinchilla [facility] Start: 08-09-2024 End: 08-09-2024 ambulatory Anamaria Chinchilla Facility:[facility] Start: 07-30-2024 End: 07-30-2024 ambulatory MD Anamaria Chinchilla Facility: [facility] Start: 07-30-2024 End: 07-30-2024 ambulatory MD Anamaria Chinchilla Facility: [facility] Start: 07-13-2024 End: 07-13-2024 ambulatory VIPUL OBANDO Facility: [facility] Start: 05-07-2024 End: 05-07-2024 Lab Drop off Anamaria Chinchilla [facility] Start: 05-07-2024 End: 05-07-2024 ambulatory MD Anamaria Chinchilla Facility:[facility] Start: 12-27-2023 End: 12-27-2023 ambulatory [facility] Start: 12-27-2023 End: 12-27-2023 Postop follow up visit related to original px Mary Pennington PA Work Phone: [facility] - [facility] On[facility] Comment on above: Encounter for postop erative care (Primary Dx) Start: 11-29-2023 End: 11-29-2023 ambulatory [facility] Start: 11-29-2023 End: 11-29-2023 Postop follow up visit related to original px Mary Pennington PA Work Phone: [facility] Comment on above: Encounter for postop erative care (Primary Dx) Start: 11-14-2023 End: 11-14-2023 Evaluation and management of inpatient [facility] Start: 11-14-2023 End: 11-14-2023 Evaluation and management of inpatient [facility] Start: 11-09-2023 Encounter for other preprocedural examination [facility] Start: 11-09-2023 End: 11-10-2023 ambulatory [facility] Start: 11-07-2023 End: 11-07-2023 Evaluation and management of inpatient ANJELICA GAMBINO [facility] Start: 11-07-2023 End: 11-07-2023 Admission to [facility] Phone Call Provider 2 [facility] On [facility] Start: 10-28-2023 Patient encounter status Nabil Lord MD Work Phone: [facility] Start: 10-28-2023 Telephone encounter Nabil andersen MD Work Phone: [facility] Start: 10-26-2023 End: 10-26-2023 ambulatory NABIL Britton CAROL[facility] Start: 10-26-2023 End: 10-26-2023 Office outpatient new 60 minutes Nabil Lord MD Work Phone: [facility] Comment on above: Endometrial thickeni ng on ultrasound (Primary Dx); Postmenopausal bleeding Start: 10-19-2023 ambulatory ANJELICA GAMBINO [facility] Start: 10-19-2023 Telephone encounter Linette Ga RN [facility] Start: 10-11-2023 End: 10-11-2023 ambulatory BENTLEY PIPPA Not Available Start: 09-01-2023 End: 09-01-2023 ambulatory VIPUL OBANDO Facility:[facility] [place] Start: 08-11-2023 End: 08-11-2023 ambulatory MD Anamaria Chinchilla [facility] [place] Start: 05-11-2023 End: 05-11-2023 Lab Drop off Violet Lauren [facility] Start: 08-03-2022 End: 08-04-[address] ANJELICA [...] Start: 09-12-2017 End: 09-13-2017 Ambulatory [facility] BOOKER [facility] Procedures Date Procedure Procedure Detail Performing Clinician Start: 10-05-2024 [facility] Bentley Fazi o DO Work Phone: Start: 11-29-2023 Follow-up [...] EST Office Visit [facility] [address] [place] [id number] Bentley Das, DO [address] [place], [place] [id number] [facility] Start: 12-26-2024 Adult BMI Screening Adult BMI Screen ing [facility] Start: 11-28-2024 Adult BMI Screening Adult BMI Screen ing [facility] Start: 11-13-2024 Tobacco Screening [facility] Start: 10-25-2024 Adult BMI Screening Adult BMI Screen ing [facility] Start: 10-25-2024 Tobacco Screening [facility] Screening [facility] Start: 08-28-2024 End: 08-28-2025 DXA Skeletal [...] EST Office Visit [facility] [address] [place] [address] Bentley Das DO [address] [place] [address] Arrived [facility] Comment on above: Arrived Start: 04-22-2024 Influenza vaccination Influenza Vacc ine [facility] Start: 12-27-2023 End: 12-27-2023 Patient encounter procedure 12/27/2023 11:00 AM EDT Office Visit [facility] [address] [place] [phone] Mary Pennington PA [address] [place], [place] [id number] [facility] Start: 11-29-2023 End: 11-29-2023 Patient encounter procedure 11/29/2023 10:30 AM EDT Office Visit [facility] [address] [place] [phone] Mary Pennington PA [address] [place] [address] [facility] Start: 11-14-2023 End: 11-14-2023 Admission to same day surgery center 11/14/2023 11:00 AM EDT - 11/14/2023 1:00 PM EDT Surgery [facility] - Surgery [address] [place] [address] Nabil Lord MD [address] [facility] [facility] [place] [address] DAVINCI HYSTERECTOMY SALPINGO OOPHORECTOMY(WITH FROZEN SECTION AND POSSIBLE STAGING) [facility] - Surgery Comment on above: DAVINCI HYSTERECTOMY SALPINGO OOPHORECTOMY(WITH FROZEN SECTION AND POSSIBLE STAGING) Start: 11-14-2023 End: 11-14-2023 DAVINCI HYSTERECTOMY SALPINGO OOPHORECTOMY DAVINCI HYSTERECTOMY SALPINGO OOPHORECTOMY THICKENED ENDOMETRUM/POST MENOPAUSAL BLEEDING/CERVICAL STENOSIS 11/14/2023 11:00 AM EDT [facility] Start: 11-14-2023 Subsequent hospital visit by physician 11/14/2023 11:00 AM EDT Hospital Encounter [facility] Surgery [address] [place] [id number] Nabil Lord MD [address] [place] [address], [address] [place] [address] [facility] Surgery Start: 11-07-2023 End: 11-07-2023 Admission to establishment 11/07/2023 10:30 AM EDT Support Visit [facility] On [address] [phone] [facility] On [facility] Start: 10-28-2023 End: 10-27-2024 XR Chest PA and Lateral X-ray chest 2 views Imaging Routine Preop testing Expected: 10/28/2023, Expires: 10/27/2024 [facility] Comment on above: Expected: 10/28/2023 , Expires: 10/27/2024 Start: 10-26-2023 End: 10-26-2023 Patient encounter procedure 10/26/2023 3:00 PM EST Office Visit [facility] [address] [facility] [address] [place] [address] [place] [address], [address] [place] [address] [facility] Start: 04-22-2023 Influenza vaccination Influ[facility] Vacc [facility]e [facility] Start: 08-04-2022 Adult BMI Screening [facility] ing [facility] Start: 2017 Fall Risk Screening Fall Risk Screen ing [facility] [employer] [facility] Start: 2002 Administration of varicella zoster vaccine Zoster (Shingles) Vaccine (1 of 2) [facility] Start: 1971 DTaP,Tdap and Td Vaccines (1 - Tdap) DTaP,Tdap and Td Vaccines (1 - Tdap) [facility] [employer] [facility] Start: 1970 Adult BMI Follow Up Plan Adult BMI F ollow Up Plan [facility] Start: 1964 Depression Screening Depression Scre ening [facility] [employer] Start: 1964 Tobacco Screening Tobacco Screening [facility] Start: 1952 Medicare Annual Well ness Visit Medicare Annual Wellness Visit [facility] End: 10-27-2024 CBC W Auto Differential panel - Blood CBC with auto diff Lab Routine Preop testing 1 Occurrences starting 10/28/2023 until 10/27/2024 [employer] Work Phone: Comment on above: 1 Occurrences starti ng 10/28/2023 until 10/27/2024 End: 10-27-2024 Comprehensive metabolic 2000 panel - Serum or Plasma Comprehensive metabolic panel Lab Routine Preop testing 1 Occurrences starting 10/28/2023 until 10/27/2024 [facility] Comment on above: 1 Occurrences starti ng 10/28/2023 until 10/27/2024 End: 10-27-2024 ECG 12 lead ECG 12 lead ECG Routine Preop testing 1 Occurrences starting 10/28/2023 until 10/27/2024 [facility] Comment on above: 1 Occurrences starti ng 10/28/2023 until 10/27/2024 Immunizations Immunization Date Immunization Notes Care Provider Jailyn martinez 07-24-2019 pneumococcal polysaccharide vaccine, 23 valjazlyn Chinchilla [facility] [place] 07-21-2018 pneumococcal conjuga te vaccine, 13 valjazlyn Chinchilla [facility] 11-08-2016 hepatitis A vaccine, adult dosage Anamaria Chinchilla [facility] 05-05-2016 hepatitis A vaccine, adult dosage Anamaria Chinchilla [facility] 07-12-2014 influenza virus vaccine, unspecified formulation Linette Ga RN [facility] 07-12-2014 influenza, injectabl e, quadrivalent, preservative free Bentley Pippa DO Work Phone: [facility] 06-05-2013 influenza virus vaccine, unspecified formulation Anamaria Chinchilla [facility] 06-05-2013 influenza, seasonal, injectable Bentley Pippa DO Work Phone: [facility] 05-18-2012 influenza virus vaccine, unspecified formulation Anamaria Chinchilla [facility] 05-18-2012 influenza, seasonal, injectable Bentley Pippa DO Work Phone: [facility] 05-17-2011 influenza virus vaccine, unspecified formulation Anamaria Chinchilla [facility] 05-17-2011 influenza, seasonal, injectable Bentley Pippa DO Work Phone: [facility] 06-25-2008 pneumococcal polysaccharide vaccine, 23 valent Anamaria Chinchilla [facility] NEGATED: Highlighted row has not occurred!07-30-2024 influenza virus vaccine, unspecified formulation Anamaria Chinchilla [facility] NEGATED: Highlighted row has not occurred!05-30-2023 influenza virus vaccine, unspecified formulation Anamaria Chinchilla [facility] NEGATED: Highlighted row has not occurred!12-01-2022 SARS-CoV-2 mRNA (tojewelsnameran 5y-11y) vaccine Violet Leonidas [facility] Payers Date Payer Category Payer Medicare (Managed Care) [employer] [id number] 2017 Medicare [id number] 2017 Unknown [id number] 2017 Unknown 2014 Medicare [id number] 1959 Unknown [id number] 1950 Unknown [id number] 2.16.840.1.647892.3.579.2. 593 1952 Unknown [id number] 2.16.840.1.224241.3.579.2. 593 1950 Unknown [id number] 2.840.1.177255.3.579.2. 593 1952 Unknown [id number] 2.16.840.1.563154.3.579.2. 593 1952 Unknown [id number] 2.16.840.1.765361.3.579.2. 593 1952 Unknown [id number] 2.16.840.1.281458.3.579.2. 593 1952 Unknown [id number] 2.16.840.1.299350.3.579.2. 593 1952 Unknown [id number] 2.16.840.1.713659.3.579.2. 593 1952 Unknown [id number] 2.16.840.1.938951.3.579.2. 1286 1952 Unknown [id number] 2.16.840.1.388175.3.579.2. 1286 1952 Unknown [id number] 2.16.840.1.088762.3.579.2. 1286 1952 Unknown [id number] 2.16.840.1.840921.3.579.2. 128 1952 Unknown [id number] 2.16.840.1.030568.3.579.2. 128 1952 Unknown [id number] 2.16.840.1.873076.3.579.2. 128 1952 Unknown [id number] 2.16.840.1.302740.3.579.2. 128 1952 Unknown [id number] 2.16.840.1.739449.3.579.2. 1286 1952 Unknown [id number] 2.16.840.1.104062.3.579.2. 1286 1952 Unknown [id number] 2.16.840.1.119287.3.579.2. 1286 1952 Unknown [id number] 2.16.840.1.802582.3.579.2. 1286 1952 Unknown [id number] 2.16.840.1.108406.3.579.2. 727 1952 Unknown [id number] 2.16.840.1.419254.3.579.2. 727 1952 Unknown [id number] 2.16.840.1.855105.3.579.2. 727 1952 Unknown [id number] 2.16.840.1.468000.3.579.2. 727 1952 Unknown [id number] 2.16.840.1.459574.3.579.2. 727 1952 Unknown [id number] 2.16.840.1.525557.3.579.2. 727 1952 Unknown [id number] 2.16.840.1.168512.3.579.2. 1259 1952 Unknown [id number] 2.16.840.1.955353.3.579.2. 1259 1952 Unknown [id number] 2.16.840.1.017668.3.579.2. 196 1952 Unknown [id number] 2.16.840.1.916455.3.579.2. 727 1952 Unknown [id number] 2.16.840.1.814287.3.579.2. 72 1952 Unknown [id number] 2.16.840.1.663360.3.579.2. 727 1952 Unknown [id number] 2.16.840.1.241695.3.579.2. 72 1952 Unknown [id number] 2.16.840.1.000998.3.579.2. 727 1952 Unknown [id number] 2.16.840.1.026706.3.579.2. 727 1952 Unknown [id number] 2.16.840.1.464836.3.579.2. 727 1952 Unknown [id number] 2.16.840.1.029875.3.579.2. 727 1952 Unknown [id number] 2.16.840.1.213132.3.579.2. 727 1952 Unknown [id number] 2.16.840.1.330310.3.579.2. 727 1952 Unknown [id number] 2.16.840.1.915478.3.579.2. 727 Social History Date Type Detail Facility Start: 05-11-2023 End: 09-10-2024 Tobacco smoking status Never smoked tobacco (finding) [facility] Comment on above: denies denies use. Tobacco smoking status Never [facility] Comment on above: denies denies use. Start: 10-02-2020 End: 10-11-2023 Sex Assigned At Female [facility] Start: 10-11-2023 End: 11-14-2023 Alcoholic beverage intake Current drinker of alcohol (finding) [facility] Start: 10-02-2020 End: 10-11-2023 Alcoholic beverage intake [facility] Start: 1950 Sex assigned at Not on file [facility] History of tobacco use Passive smoker [facility] Start: 01-12-2018 End: 11-07-2023 Tobacco use and exposure Smokeless tobacco non-user [facility] Start: 1950 Sex assigned at Female [facility] Start: 10-24-2023 Gender identity Identifies as female gender (finding) [facility] Clinical Notes 08-05-2022 to 10-19-2024 Maryanne Mancia LPN - 08/28/2024 9:00 AM JASON Wasserman - 12/27/2023 11:00 AM JASON Pineda - 11/29/2023 10:30 AM EDTTelephone Encounter - Raj Argueta - 10/28/2023 11:19 AM EST Note Date & Type Note Facility 10-19-2024 Note Nurse Consultation N ote Assessment/Plan UTI symptoms (R39.9: Unspecified symptoms and signs involving the genitourinary system) Pt stopped in and dropped off urine sample. Onset: 5 days ago burning, spasms, frequency, hesitancy. urinalysis charted in chart and urine sent for culture. Medications amLODIPine 5 mg Tab, See Instructions [...] Lab Results Ambulatory Point of Care Results Bilirubin Urine Dipstick: Negative (10/19/24 10:07:00) Blood Urine Dipstick: 2+ Moderate (10/19/24 10:07:00) Glucose Urine Dipstick: Negative (10/19/24 10:07:00) Ketones Urine Dipstick: Negative (10/19/24 10:07:00) Leukocytes Urine Dipstick: 1+ Small (10/19/24 10:07:00) Nitrite Urine Dipstick: Positive (10/19/24 10:07:00) Protein Urine Dipstick: Trace (10/19/24 10:07:00) Specific [place] Urine Dipstick: 1.020 (10/19/24 10:07:00) Urine Appearance Urine Dipstick: Slightly cloudy (10/19/24 10:07:00) Urine Color Urine Dipstick: Light yellow (10/19/24 10:07:00) Urobilinogen Urine Dipstick: Normal 0.2-1 EU/dl (10/19/24 10:07:00) pH Urine Dipstick: 7 (10/19/24 10:07:00) [facility] 08-28-2024 History of Presen t illness Narrative Reason for Appointment: Patient ID: Isaura Hayden is a 74 y.o. female who presents for Well Women Visit Patient presents today for Annual Exam. MEDICATIONS Current Outpatient Medications Medication Instructions alpha tocopherol (Vitamin E) 1000 units capsule See Instructions, take one daily 400mg, Refills(s) 0 amLODIPine (NORVASC) 5 mg, Daily aspirin 81 mg, Every other day Oogxmcn-Xcockskgfd-Aeudiaf D (VITAMIN D3/CALCIUM/PHOSPHORUS PO) 1 each, Daily Denosumab (PROLIA SC) 1 Units, Every 6 months Durysta 10 mcg, As needed losartan (COZAAR) 100 mg, Daily [place]-3 500 mg rosuvastatin (CRESTOR) 20 mg ALLERGIES Allergies Allergen Reactions Hydromorphone Unknown PROBLEMS Active Ambulatory Problems Diagnosis Date Noted Age-related osteoporosis without current pathological fracture ([facility]) 01/31/2023 Arthritis 12/27/2016 Hypercholesterolemia ([facility]) 12/27/2016 Hypertension ([facility]) 01/31/2023 Iron deficiency anemia 12/27/2016 TIA (transient ischemic attack) 01/31/2023 History of colon polyps 02/01/2023 Hyperlipidemia ([facility]) 02/23/2023 Resolved Ambulatory Problems Diagnosis Date Noted No Resolved Ambulatory Problems Past Medical History: Diagnosis Date Bronchitis Capillary angioma Cataracts, bilateral Chicken pox Family history of cancer Gallstone pancreatitis 2016 Glaucoma ([facility]) Hemorrhoids 2013 High blood pressure ([facility] High cholesterol ([facility]) Measles Mumps Osteoporosis ([facility]) Pneumonia Stress fracture Tonsillitis Tubular adenoma 2013 HISTORY PAST MEDICAL HISTORY SOCIAL HISTORY Past Medical History: Diagnosis Date Arthritis Bronchitis Capillary angioma Cataracts, bilateral Chicken pox Family history of cancer Gallstone pancreatitis 2017 Glaucoma ([facility]) Hemorrhoids 2013 High blood pressure ([facility] High cholesterol ([facility]) Measles Mumps Osteoporosis ([facility]) Pneumonia Stress fracture Tonsillitis Tubular adenoma 2012 [...] nursing note reviewed. Exam conducted with a mining analyst present. Vitals: Estimated body mass index is [...] Bentley Das DO documented in this encounter [facility] 08-09-2024 Note Nurse Consultation N ote Reason [...] 05/17/2011 Recorded pneumococcal 23-valent vaccine 06/25/2008 Recorded [facility] 07-30-2024 Note Patient Education Cardiovascular [...] Keep all follow-up visits. Medicines ??? Take ptwg-qef-nmnhsrs and prescription medicines only as told by [...] a (more content not included)... [facility] 07-13-2024 Note Patient Education Infectious [...] these instructions at home: Medicines ??? Take tccl-ich-chjsnon and prescription medicines only as told by [...] and water are not available, use hand woodwind reeds cutter. ??? Do not touch your eyes, [...] provider. Document Revised: 11/04/2021 Document Reviewed: 11/04/2021 [employer] Patient Education ? 2023 [employer]. [facility] 12-27-2023 History of Presen t illness Narrative [...] 01/12/2018 Performed by Nitesh Littlejohn MD at [facility] ROBOTIC ASSISTED HYSTERECTOMY, BILATERAL SALPINGO OOPHORECTOMY, PELVIC WASHINGS Bilateral 11/14/2023 Performed by Nabil Lord MD at [facility] HEMORROIDECTOMY 1999' SKIN BIOPSY Right [...] - Inability: Never True Received from [facility] Safety & Environment Review of Symptoms: Pertinent [...] *This note was completed using a voice payloader operator system. Every effort was made to ensure accuracy. However, inadvertent computerized payloader operator errors may be present. .Total time spent was 20 minutes: Preparing to see the patient (e.g., review of tests) Performing a medically appropriate examination and/or evaluation Counseling and educating the patient/family/caregiver Documenting clinical information in the electronic or other health record Care coordination (not separately reported) Mayr Pennington PA-C, RD, IF JASON Zaragoza 12/27/23 1106 documented in this encounter [facility] 11-29-2023 History of Presen t illness Narrative [...] 01/12/2018 Performed by Nitesh Littlejohn MD at [facility] ROBOTIC ASSISTED HYSTERECTOMY, BILATERAL SALPINGO OOPHORECTOMY, PELVIC WASHINGS Bilateral 11/14/2023 Performed by Nabil Lord MD at [facility] HEMORROIDECTOMY 1999's SKIN BIOPSY Right [...] *This note was completed using a voice payloader operator system. Every effort was made to ensure accuracy. However, inadvertent computerized payloader operator errors may be present. .Total time spent was 20 minutes: Preparing to see the patient (e.g., review of tests) Performing a medically appropriate examination and/or evaluation Counseling and educating the patient/family/caregiver Documenting clinical information in the electronic or other health record Care coordination (not separately reported) Mary Pennington PA-C, RD, IF JASON Zaragoza 11/29/23 1101 documented in this encounter [facility] [employer] [facility] 11-07-2023 Instructions Formatting of th is note might be different from the original. Your surgery/procedure is scheduled at [facility] on 11/14/2023 at 11 am Arrival Time 9 am [facility] Address: [address] [place] [address], [address] Park in the Emergency Center Parking lot. Report to the senior front end web developer in the Emergency/Surgery Registration lobby of the hospital. Please call Pre-Admission Clinic at [phone] if you have any questions prior to surgery. For questions the morning of surgery, please call the Pre-op Department at [phone]. Notify your SURGEON if you develop any [...] would like to schedule therapy at a [facility] facility, please call [phone] ([phone]). Do not use lotions, creams, powders, perfume, make up, cologne or after-shaves day of surgery. Remove ALL jewelry including wedding rings, body piercings, hair extensions that contain metal, nail citizen of [place], make-up, and contact lens. You may brush your teeth the morning of surgery, but do not swallow the water. Wear your dentures and partial plates to the hospital (no adhesive). Shower the night the before. If applicable, use the CHG (chlorhexidine gluconate) soap or wipes. Please be advised, [employer] has transitioned to a cashless payment system. [...] RIGHTS AND RESPONSIBILITIES As a patient at [facility], you have the right to: Receive medical care and be informed of who is taking care of you Be treated with dignity and respect Have a family member/desk representative of choice and your physician notified [...] of hospital charges and payment methods Patient/patient desk representative responsibilities are to: Provide information about health status to facilitate care, treatment and services Follow the treatment, plan, keep appointments and speak up when you do not understand the plan Respect the rights of other patients and healthcare personnel Follow organizational rules and regulations that support quality care and a safe environment Fulfill financial obligations as promptly as possible [facility] 11-07-2023 Miscellaneous Notes Pt is going to [facility] on 11/09/2023 to havre EKG, CXR and labs. Your surgery/procedure is scheduled at [facility] on 11/14/2023 at 11 am Arrival Time 9 am [facility] Address: [address] [place] [address], [facility] Park in the Emergency Center Parking lot. Report to the senior front end web developer in the Emergency/Surgery Registration lobby of the hospital. Please call Pre-Admission Clinic at [phone] if you have any questions prior to surgery. For questions the morning of surgery, please call the Pre-op Department at [phone]. Notify your SURGEON if you develop any [...] prior to your surgery. For questions regarding DRSIS education, reach out to your surgeons office. If you have been given a prescription for occupational, physical or speech therapy, please set up these appointments before your procedure. If you would like to schedule therapy at a [facility] facility, please call [phone] ([phone]). Do not use lotions, creams, powders, perfume, make up, cologne or after-shaves day of surgery. Remove ALL jewelry including wedding rings, body piercings, hair extensions that contain metal, nail citizen of [place], make-up, and contact lens. You may brush your teeth the morning of surgery, but do not swallow the water. Wear your dentures and partial plates to the hospital (no adhesive). Shower the night the before. If applicable, use the CHG (chlorhexidine gluconate) soap or wipes. Please be advised, [facility] has transitioned to a cashless payment system. [...] RIGHTS AND RESPONSIBILITIES As a patient at [facility], you have the right to: Receive medical care and be informed of who is taking care of you Be treated with dignity and respect Have a family member/desk representative of choice and your physician notified [...] of hospital charges and payment methods Patient/patient desk representative responsibilities are to: Provide information about [...] promptly as possible documented in this encounter [facility] 11-07-2023 Nurse Note Pt is going to [facility] on 11/09/2023 to havre EKG, CXR and labs. [facility] 10-28-2023 Miscellaneous Notes Spoke with Mee 3/Raisa and 3/8 to confirm surgery plan. Patient is scheduled at [facility] with Dr Lord on 11/14/23. She knows to arrive at 9:00a for 11:00a surgery. Patient knows to call [phone] to locate closest [facility] facility in order to complete PAT testing. She has phone call PAT scheduled for 11/07/23. She will follow up with Mary in [place] on 11/29/23 at 10:30a. documented in this encounter [facility] 10-28-2023 Telephone encounter Note Spoke with Mee 3/Raisa and 3/8 to confirm surgery plan. Patient is scheduled at [facility] with Dr Lord on 11/14/23. She knows to arrive at 9:00a for 11:00a surgery. Patient knows to call [phone] to locate closest [facility] facility in order to complete PAT testing. She has phone call PAT scheduled for 11/07/23. She will follow up with Mary in [place] on 11/29/23 at 10:30a. [facility] 10-26-2023 History of Presen t illness Narrative [...] personal or family history of GI or general adjuster malignancies. Oncology History No overview note Isaura [...] 01/12/2018 Performed by Nitesh Littlejohn MD at [facility] HEMORROIDECTOMY TONSILLECTOMY Past Medical History: Diagnosis [...] procedures Referring and communicating with other health child care associate (not separately reported) Documenting clinical information in the electronic or other health record Independently interpreting results (not separately reported) and communicating results to the patient/family/caregiver Nabil Lord MD [facility] 10-19-2023 Miscellaneous Notes Left VM to schedule DEMO COORDINATOR appt with general adjuster onc, call back # provided. Requested images from pelvic US be pushed via PACS from [employer]. [facility] Telephone encounter Note Left VM to schedule DEMO COORDINATOR appt with general adjuster onc, call back # provided. Requested images from pelvic US be pushed via PACS from [employer]. [facility] 08-11-2023 Note Procedures Choosing a Surgeon [...] a surgeon: ? Is certified by the [place] [employer]. To be board [...] going to your state medical board at www.fsmb.org/ibnmcja-q-qsvxo-tn dical-board/ ? Has good ratings from other [...] you are considering is certified by the [place] [employer]. ? Meet with [...] provider. Document Revised: 10/19/2021 Document Reviewed: 10/19/2021 [employer] Patient Education ? 2022 [employer]. [facility] 08-05-2022 Note PROCEDURE: XR FOOT [...] authenticated by: ALAN CÁRDENAS Date: 2022-08-04 22:03 [facility] Evaluation + Plan note Future Appointments Appointment Date:05/30/2023 02:00:00 PM Scheduled Provider: Location:[facility] Appointment Type: Medicare Wellness Subsequent Appointment Date:05/30/2023 02:40:00 PM Scheduled Provider:Anamaria Chinchilla MD Location:[facility] Appointment Type: Open Diagnostic Tests PendingUrine Culture 05/11/23 [facility] Evaluation + Plan note Future Appointments Appointment Date:07/30/2024 10:30:00 AM Scheduled Provider:Anamaria Chinchilla MD Location:[facility] Appointment Type: Open Appointment Date:07/30/2024 11:00:00 AM Scheduled Provider: Location:[facility] Appointment Type: Medicare Wellness Subsequent Diagnostic Tests PendingUrine Culture 05/07/24 [facility] Evaluation + Plan note Future Appointments Appointment Date:01/28/2025 08:45:00 AM Scheduled Provider:Anamaria Chinchilla MD Location:[facility] Appointment Type:FM Open Appointment Date:08/01/2025 11:00:00 AM Scheduled Provider[facility] Type:FM Medicare Wellness Subsequent [facility] Evaluation + Plan note Future Appointments Appointment Date:01/28/2025 08:45:00 AM Scheduled Provider:Anamaria Chinchilla MD [facility] Type:FM Open Appointment Date:08/01/2025 11:00:00 AM Scheduled Provider: Location:[facility] Appointment Type:FM Medicare Wellness Subsequent Diagnostic Tests PendingUrine Culture 10/19/24 [facility] Evaluation note Diagnosis Well woman exam with routine gynecological exam Routine gynecological examination Breast cancer screening by mammogram Postmenopausal state Asymptomatic postmenopausal status (age-related) (natural) documented in this encounter [facility]* Diagnosis Encounter for postoperative care- Primary [facility] Diagnosis Endometrial thickening on ultrasound- Primary Postmenopausal bleeding [facility] Diagnosis Preop testing- Primary Unspecified pre-operative examination documented [facility]* Diagnosis Encounter for postoperative care- Primary [facility] Narrative No data available for this section [facility] No data available for this section [facility] System[facility]ructions[facility] on filedocumented in this encounter [facility] on filedocumented in this encounter [facility] on filedocumented in this encounter [facility] on filedocumented in this encounter [facility]ructions[facility] on filedocumented in this encounter [facility]ructionsNot on filedocumented in this encounter [facility] No data available for this section [facility] Summary Purpose Family History No Family History [...] Procedures ECG 12 lead Nabil Lord MD [address] [place] [address], [address] [place] [address] Referral ID Status Reason Start Date Expiration Date V isits Requested Visits Authorized [id number] Pending Review 10/28/2023 10/27/2024 1 1 Additional Source Comments INFORMATION SOURCE (unrecogn ized section and content) DATE CREATED AUTHOR 02/13/2018 [facility] DATE CREATED AUTHOR AUTHOR'S ORGANIZ ATION 08/12/2022 [facility] DATE CREATED AUTHOR AUTHOR'S ORGANIZ ATION 10/27/2023 [facility] DATE CREATED AUTHOR AUTHOR'S ORGANIZ ATION 10/28/2023 [facility] DATE CREATED AUTHOR AUTHOR'S ORGANIZ ATION 11/18/2023 [facility] DATE CREATED AUTHOR AUTHOR'S ORGANIZ ATION 12/28/2023 [facility] DATE CREATED AUTHOR AUTHOR'S ORGANIZ ATION 05/15/2024 [facility] DATE CREATED AUTHOR AUTHOR'S ORGANIZ ATION 08/10/2024 [facility] DATE CREATED AUTHOR AUTHOR'S ORGANIZ ATION 08/13/2024 [facility] DATE CREATED AUTHOR AUTHOR'S ORGANIZ ATION 09/03/2024 [facility] DATE CREATED AUTHOR AUTHOR'S ORGANIZ ATION 09/13/2024 [facility] DATE CREATED AUTHOR AUTHOR'S ORGANIZ ATION 10/21/2024 [facility] DATE CREATED AUTHOR AUTHOR'S ORGANIZ ATION 10/22/2024 [facility] DATE CREATED AUTHOR AUTHOR'S ORGANIZ ATION 01/28/2025 [facility] DATE CREATED AUTHOR AUTHOR'S ORGANIZ ATION 01/30/2025 [facility] Patient Care team informatio n (unrecognized section and content) Media Intern Relationship Specialty Start Date End Date Anjelica Gambino MD [address] [place] [address] PCP - General Family Medicine 01/27/23 Media Intern Relationship Specialty Start Date End Date Anjelica Gambino MD [address] [place] [address] PCP - General Family Medicine 01/27/23 Media Intern Relationship Specialty Start Date End Date Anamaria Chinchilla MD [address] [place], [place] [id number] PCP - General Family Medicine 11/07/23 Media Intern Relationship Specialty Start Date End Date Anjelica Gambino MD [address] [place] [address] PCP - General Family Medicine 12/24/16 Media Intern Relationship Specialty Start Date End Date Anjelica Gambino MD [address] [place] [address] PCP - General Family Medicine 12/24/16 Media Intern Relationship Specialty Start Date End Date Anjelica Gambino MD [address] [place] [address] PCP - General Family Medicine 12/24/16 Media Intern Relationship Specialty Start Date End Date Anamaria Chinchilla MD [address] [place], [place] [phone] PCP - General Family Medicine 11/07/23 Reason [...] BE BASED ON THE PRIMARY CLINICAL RECORDS. [employer] provides no warranty or guarantee of the accuracy or completeness of information in this document.
== END 2025-02-04 08:09 | disposition home or self-care (01) ==
PROVIDERS: PCP Family Medicine; Visit Provider Podiatrist Foot & Ankle Surgery
DX: S92.354G Nondisplaced fracture of fifth metatarsal bone, right foot, subsequent encounter for fracture with delayed healing (principal); S92.325D Nondisplaced fracture of second metatarsal bone, left foot, subsequent encounter for fracture with routine healing; M79.671 Pain in right foot
CPT/HCPCS: 73630

== ENCOUNTER 2025-04-12 09:16 | Outpatient (OUT) | payer MEDICARE, SELFPAY ==
--- OUTSIDE RECORDS SUMMARY | 2024-09-13 07:06 | XMS_ITS ---
Author Organization The [facility] in [place] Address [address] [place] [address] Care Team Providers Care Tobacco Stemmer Machine Name Role Phone Job Alvarado MD Primary Care Provider Graham Harris [facility] [phone] Encounters Encounter Location Date Provider Diagnosis [facility] (PODIATRY) [address] [place] [address] [place] [address] 09/13/2024 Graham Schmitz Plan Of Treatment No Information Progress Notes * Sara RIVERAOB:1949 (74 yo F)Acc No.[id number]:09/13/2024 Patient: Isaura CHANG :1950 A ge:74 Y S ex:Female Address:[facility] [address] [address] * true * Date: Generated for Óscari ng/Farandellg/eTransmitting on: 0 04/12/2025 09:23 AM EDT
--- OUTSIDE RECORDS SUMMARY | 2024-09-18 09:30 | XMS_ITS ---
Author Organization [facility] [place] Address [address] [place] [address] Care Team Providers Care Ripsaw Operator Name Role Phone Job Alvarado MD Primary Care Provider Graham Harris [phone] Allergies Allergen (clinical drug ingredient) Drug/Non Drug Allergy documented on EMR Reaction Allergy Type Onset Date Status hydromorphone Dilaudid Unknown Drug Allergy Act meg REASON FOR VISIT 6 week f/u Medications Medication SIG (Take, Route, Frequency, Duration) Notes Start Date End Date Status Vitamin D 25 MCG (1000 UT) 1 tablet Oral ly Once a day Active tiZANidine HCl 4 MG 1 tablet Orally ever y 8 hours as needed for spasm for 4 days 06/05/2024 Active Zioptan 0.0015 % 1 drop into affected eye in the evening Ophthalmic Once a day Active Vitamin E 180 MG (400 UNIT) 1 capsule Or ally Once a day Active Rosuvastatin Calcium 20 MG 1 tablet Oral ly Once a day Active Aspirin 81 81 MG 1 tablet Orally Once a day Active Kibtit-Ewht-FSX-Ca-C-CtCl-S eCu - as directed Orally Active Norvasc 5 MG 1 tablet Orally Once a day Active Losartan Potassium 100 MG 1 tablet Orall y Once a day Active Noxapater 3 1000 MG 1 capsule Orally Onc e a day Active Social History Tobacco Use: Social History Observation Description Date Details (start date - stop date) Never Smoker NA - NA Tobacco Use/Smoking Question Answer Notes Patient is a nonsmoker Vital Signs Height 64 in 09/18/2024 Temperature 96.8 degrees Fahrenheit 09/18/19 25 Heart Rate 78 /min 09/18/2024 Oximetry 99 % 09/18/2024 Encounters Encounter Location Date Provider Diagnosis [facility] (PODIATRY) [address] [place] [address] [place] [address] 09/18/2024 Graham Schmitz Stress fracture, right foot, initial encounter for fracture M84.374A ; Age-related osteoporosis with current pathological fracture, unspecified site, initial encounter for fracture M80.00XA ; Left foot pain M79.672 ; Right foot pain M79.671 and Nondisplaced fracture of second metatarsal bone, left foot, subsequent encounter for fracture with nonunion S92.325K Assessments Encounter Date Diagnosis (ICD Code) Assessment Notes Treatment Notes Treatment Clinical Notes Section Notes 09/18/2024 Stress fracture, right foot, initial encounter for fracture (ICD-10 - M84.374A) Patient seen and evaluated. Patient education provided and all questions answered to her satisfaction. I recommended continue using the bone stimulator as prescribed. She may perform physical therapy for recent tendon surgery as prescribed by her surgeon but did recommend that she tell her physical therapist of the nonhealing fractures on her bilateral feet and if she has pain she should back off any weightbearing exercise but otherwise have no limitations for her other than wearing the surgical shoes. She will follow-up in a month with x-rays of bilateral feet 09/18/2024 Age-related osteoporosis with current pathological fracture, unspecified site, initial encounter for fracture (ICD-10 - M80.00XA) 09/18/2024 Left foot pain (ICD-10 - M79.672) 09/18/2024 Right foot pain (ICD-10 - M79.671) 09/18/2024 Nondisplaced fracture of second metatarsal bone, left foot, subsequent encounter for fracture with nonunion (ICD-10 - S92.325K) Plan Of Treatment Treatment Notes Assessment Notes Stress fracture, right foot, initial encounter for fracture Patient seen and evaluated. Patient education provided and all questions answered to her satisfaction. I recommended continue using the bone stimulator as prescribed. She may perform physical therapy for recent tendon surgery as prescribed by her surgeon but did recommend that she tell her physical therapist of the nonhealing fractures on her bilateral feet and if she has pain she should back off any weightbearing exercise but otherwise have no limitations for her other than wearing the surgical shoes. She will follow-up in a month with x-rays of bilateral feet Pending Test Test Name Order Date XR Foot LT (3 views) * 09/18/2024 XR Foot RT (3 views) * 09/18/2024 Progress Notes * Sara RIVERAOB:1949 (74 yo F)Acc No.[id number]:09/18/2024 Follow Up Patient: Isaura CHANG Provider: Jimmy Schmitz DPM, MS :1950 A ge:74 Y S ex:Female Date:09/18/2024 Address:[address], [id number] Pcp:Job Alvarado MD Check In:01:20 PM ESTCheck O ut:02:53 PM EST Subjective: * Chief Complaints: * 6 week f/u * HPI: G eneral: Patient presents for follow-up regarding nonhealing stress fracture of second metatarsal. She relates majority of time she has no pain. She is wearing surgical shoes due to the stiff soles. She is doing well today with no pain to the left foot. Her right foot is sore today along her 5th metatarsal due to exercises in therapy. T aking Vitamin D daily. Patient underwent 2 surgeries within the last week. She underwent a tendon repair and cleaning of a cat bite. DOS: 09-11-24, and 09-14-24. She did have her dressings changed today. * Active Problem List M79.672 Pain in left foot Modified On:09/27/2023W/U Status:confirmed M84.375A Stress fracture, lef t foot, initial encounter for fracture Modified On:09/27/2023W/U Status:confirmed M25.572 Pain in left ankle a nd joints of left foot Modified On:06/29/2023W/U Status:confirmed M80.00XA Age-related osteopor osis with current pathological fracture, unspecified site, initial encounter for fracture Modified On:09/27/2023W/U Status:confirmed S92.325K Nondisplaced fractur e of second metatarsal bone, left foot, subsequent encounter for fracture with nonunion Modified On:4Risk:HighW/U Status:confirmed M77.41 Metatarsalgia, right foot Modified On:11/08/2023W/U Status:confirmed M84.375K Stress fracture, lef t foot, subsequent encounter for fracture with nonunion Modified On:12/20/2023/U Status:confirmed M79.672 Left foot pain Modified On:09/18/2024/U Status:confirmed M79.671 Right foot pain Modified On:09/18/2024/U Status:confirmed * Medical History: * Surgical History: c apillary angioma x 3 tonsillectomy hemorhoidectomy cholecystectomy prolapsed bladder, cystocele colonoscopy * Hospitalization/Major Diagno stic Procedure: s ee above * Family History: F ather: diagnosed with Other malignant neoplasm of unspecified site, Diabetes mellitus without mention of complication, type II or unspecified type, not stated as uncontrolled, Unspecified heart disease. M other: diagnosed with Other malignant neoplasm of unspecified site, Unspecified heart disease. * Social History: T obacco Use: T obacco Use/Smoking P atient is a n onsmoker * Medications: T akingAspirin 81(Aspirin) 81 MG Tablet Delayed Release 1 tablet Orally Once a day Smkpzr-Qjgw-DJF-Ux-D-MtPf-SeCu - Tablet as directed Orally Losartan Potassium 100 MG Tablet 1 tablet Orally Once a day Norvasc(amLODIPine Besylate) 5 MG Tablet 1 tablet Orally Once a day Noxapater 3 1000 MG Capsule 1 capsule Orally Once a day Rosuvastatin Calcium 20 MG Tablet 1 tablet Orally Once a day tiZANidine HCl 4 MG Tablet 1 tablet Orally every 8 hours as needed for spasm Vitamin D 25 MCG (1000 UT) Tablet 1 tablet Orally Once a day Vitamin E 180 MG (400 UNIT) Capsule 1 capsule Orally Once a day Zioptan(Tafluprost (PF)) 0.0015 % Solution 1 drop into affected eye in the evening Ophthalmic Once a day Medication List reviewed and reconciled with the patientTaking Aspirin 81(Aspirin) 81 MG Tablet Delayed Release 1 tablet Orally Once a day Taking Auntgz-Nylz-REG-Rf-F-AvCu-SeCu - Tablet as directed Orally Taking Losartan Potassium 100 MG Tablet 1 tablet Orally Once a day Taking Norvasc(amLODIPine Besylate) 5 MG Tablet 1 tablet Orally Once a day Taking Noxapater 3 1000 MG Capsule 1 capsule Orally Once a day Taking Rosuvastatin Calcium 20 MG Tablet 1 tablet Orally Once a day Taking tiZANidine HCl 4 MG Tablet 1 tablet Orally every 8 hours as needed for spasm Taking Vitamin D 25 MCG (1000 UT) Tablet 1 tablet Orally Once a day Taking Vitamin E 180 MG (400 UNIT) Capsule 1 capsule Orally Once a day Taking Zioptan(Tafluprost (PF)) 0.0015 % Solution 1 drop into affected eye in the evening Ophthalmic Once a day Medication List reviewed and reconciled with the patient * Allergies: D isiah[Allergies Verified] Objective: * Vitals: H t: 64 in, Temp:96.8F, HR:78/min, Pain scale:01-10, Oxygen sat %:99%, Ht-cm: 162.56 cm. * Examination: P odiatry Examination: SKIN: S urgical dressing was not removed but skin intact over bilateral feet, n o sign of infection. MUSCULOSKELETAL: E xam was limited due to recent I&D and tendon repair on right extensors. There is no pain on palpation no significant deformity. Strength and range of motion were deferred due to recent tendon surgery. NEUROLOGICAL: l ight touch sensation intact, n egative tinel's sign. VASCULAR: P edal pulses palpable, C apillaryrefill is brisk to toe, right dorsal foot swelling. X -rays: x-rays were obtained & reviewed in my office. Left foot x-rays are unchanged in alignment and bone healing. Right fifth metatarsal stress fracture with slight progression in bony healing. No change in alignment. Assessment: * Assessment: 1. S tress fracture, right foot, initial encounter for fracture - M84.374A (Primary) 2 . A ge-related osteoporosis with current pathological fracture, unspecified site, initial encounter for fracture - M80.00XA 3 . L eft foot pain - M79.672 4. R ight foot pain - M79.671 5 . N ondisplaced fracture of second metatarsal bone, left foot, subsequent encounter for fracture with nonunion - S92.325K R isk :High Plan: * Treatment: 2. L eft foot pain I maging: XR Foot LT (3 views) * 3. R ight foot pain I maging: XR Foot RT (3 views) * * Procedure Codes: * * Sign off status: Completed Visit Status: C HK (Check Out) true * Provider: Jimmy Schmitz DPM, MS Date: 0 09/18/2024 Generated for Randal Sofia/Linh on: 0 04/12/2025 09:23 AM EDT History and Physical Notes * HPI (History of Present Illness) Category Sub-Category Detail Notes Category Not es General Patient present s for follow-up regarding nonhealing stress fracture of second metatarsal. She relates majority of time she has no pain. She is wearing surgical shoes due to the stiff soles. She is doing well today with no pain to the left foot. Her right foot is sore today along her 5th metatarsal due to exercises in therapy. Taking Vitamin D daily. Patient underwent 2 surgeries within the last week. She underwent a tendon repair and cleaning of a cat bite. DOS: 09-11-24, and 09-14-24. She did have her dressings changed today. Examination Category Sub-Category Detail Notes Category Not es Podiatry Examination SKIN: Surgical dr garry was not removed but skin intact over bilateral feet, no sign of infection X-rays: x-rays were obtained & reviewed in my office. Left foot x-rays are unchanged in alignment and bone healing. Right fifth metatarsal stress fracture with slight progression in bony healing. No change in alignment MUSCULOSKELETAL: Exam was limited due to recent I&D and tendon repair on right extensors. There is no pain on palpation no significant deformity. Strength and range of motion were deferred due to recent tendon surgery NEUROLOGICAL: light touch sensatio n intact, negative tinel's sign VASCULAR: Pedal pulses palpable, Capillary refill is brisk to toe, right dorsal foot swelling
--- OUTSIDE RECORDS SUMMARY | 2024-10-19 05:00 | XMS_ITS ---
Author Organization [facility] in [place] Address [address] [place] [address] Care Team Providers Care Grades 9 Through 12 Teacher Name Role Phone Job Alvarado MD Primary Care Provider Graham Harris [phone] Allergies Allergen (clinical drug ingredient) Drug/Non Drug [...] 1 tablet Orally Once a day Active Evykvx-Xrgu-MWY-Ca-C-CtCl-S eCu - as directed Orally Active Losartan Potassium 100 MG 1 tablet Orall y Once a day Active Norvasc 5 MG 1 tablet Orally Once a day Active [place] 3 1000 MG 1 capsule Orally Onc [...] Encounters Encounter Location Date Provider Diagnosis [facility] (PODIATRY) [address] [place] [address] [place] [address] 10/19/2024 Graham Schmitz Stress fracture, left foot, [...] Notes * Sara RIVERAOB:1949 (74 yo F)Acc No.[id number]:10/19/2024 Follow Up Patient: Dayna LACKEY Isaura Provider: Jimmy Schmitz DPM, MS :1950 A ge:74 Y S ex:Female Date:10/19/2024 Address:[facility] [address] [place] [address], [id number] Pcp:Job Alvarado MD Check In:08:24 AM ESTCheck [...] M usculoskeletal: Bone/Joint Symptoms d enies. C long term Pain d enies.?Leg cramps d enies. N [...] Release 1 tablet Orally Once a day Aejbou-Kifb-YRT-Hd-A-RqBf-SeCu - Tablet as directed Orally Losartan Potassium 100 MG Tablet 1 tablet Orally Once a day Norvasc(amLODIPine Besylate) 5 MG Tablet 1 tablet Orally Once a day [place] 3 1000 MG Capsule 1 capsule Orally [...] 1 tablet Orally Once a day Taking Eusmzz-Fowt-KZJ-Es-X-HuGx-SeCu - Tablet as directed Orally Taking Losartan Potassium 100 MG Tablet 1 tablet Orally Once a day Taking Norvasc(amLODIPine Besylate) 5 MG Tablet 1 tablet Orally Once a day Taking [place] 3 1000 MG Capsule 1 capsule Orally [...] MS Date: 0 10/19/2024 Generated for Randal cavazos/Ingrid/Juventinoitting on: 0 04/12/2025 09:23 AM EDT History [...]
--- OUTSIDE RECORDS SUMMARY | 2025-04-12 09:23 | XMS_ITS | Encounter Summary ---
Author Organization [facility] Address [address] [place] [address] Care Team Providers Care Educational Psychology Professor Name Role Phone Francia Gambino MD Primary Care Provider Encounter Details Date Type Department Care Team (Late st Contact Info) Description 08/05/2023 Clinisync Result Encounter [facility] Unsolicited Bentley Das, DO [address] [place], [place] [id number] Social History Tobacco Use Types Packs/Day Years Used Date Smoking Tobacco: Never Alcohol Use Standard Drinks/Week Comments Yes 1 (1 standard drink = 0.6 oz pur e alcohol) Comments No Sex and Gender Information Value Date Recorded Sex Assigned at Not on file Legal Sex Female 7:02 PM EDT Gender Identity Not on file Sexual Orientation Not on file documented as of this encounter Plan of Treatment Upcoming Encounters Date Type Department Care Team (Late st Contact Info) Description 09/03/2025 10:00 AM EST Office Visit [facility] [address] [place] [phone] Bentley Das DO [address], [place] [id number] documented as of this encounter Procedures Procedure Name Priority Date/Time Associated Diagnosis Comments ECG 12-LEAD 08/05/2023 9:40 AM EST documented in this encounter Results * ECG 12-LEAD (08/05/2023 9:40 AM EST) Anatomical Region Laterality Modality Other 08/05/2023 9:40 AM EST Narrative 08/07/2023 4:47 [place] [address] Electrocardiograph Report Signed Patient: ISAURA RIVERA MR#: [id number] : 1950 Acct:[id number] Age/Sex: 73 / F ADM Date: 08/05/23 Loc: [facility] Attending Dr: Bentley Das D.O. Ordering Physician: Bentley Das D.O. 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 Signed By: 08/07/23 1647 DD/ 0940 TD/TT: Solar Systems Designer: Procedure Note Radiology, Radiologist, MD - 08/07/2023 [place] [address] Electrocardiograph Report Signed Patient: ISAURA RIVERA LMR#: [id number] : 1950cct:[id number] Age/Sex: 73 / FADM Date: 08/05/23 Loc: PST Attending Dr: Bentley Das D.O. Ordering Physician: Bentley Das D.O. 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 Signed By:08/07/23 1647 DD/ 0940 TD/TT: Solar Systems Designer: us Bentley Das DO [facility] Final Result documented in this encounter Visit Diagnoses Not on filedocumented in this encounter Care Teams Educational Psychology Professor Relationship Specialty Start Date End Date Francia Gambino MD [address] [place] [address] PCP - General Family Medicine 01/27/23 documented as of this encounter
--- OUTSIDE RECORDS SUMMARY | 2025-04-12 09:23 | XMS_ITS | Encounter Summary ---
Author Organization [facility] Address [address] [place] [address] Care Team Providers Care Propulsion Motor And Generator Repairer Name Role Phone Francia Gambino MD Primary Care Provider [phone] Encounter Details Date Type Department Care Team (Late st Contact Info) Description 04/05/2025 Telephone [facility] [address] [place] [address] Kirti Breaux LPN [address] [place] [address] Social History Tobacco Use Types Packs/Day Years [...] on file documented as of this encounter Miscellaneous Notes * Telephone Encounter - Kirti Breaux LPN - 04/05/2025 10:31 AM EDT Pt called asking that we send over her lab work to [facility]. She is getting her prolia infusion Tuesday the . Lab orders sent documented in this encounter Plan of Treatment Upcoming Encounters Date Type Department Care Team (Late st Contact Info) Description 09/03/2025 10:00 AM EST Office Visit [facility] [address] [place] [address] Bentley Das DO [address] [place] [address] Scheduled Orders Name Type Priority Associated Diagnoses Orde r Schedule Calcium Lab Routine Osteoporosis, unspecified osteoporosis type, unspecified pathological fracture presence Expected: 04/05/2025 (Approximate), Expires: 04/05/2026 Creatinine Lab Routine Osteoporosis, unspecified osteoporosis type, unspecified pathological fracture presence Expected: 04/05/2025 (Approximate), Expires: 04/05/2026 documented as of this encounter Visit Diagnoses Diagnosis Osteoporosis, unspecified osteoporosis type, unspecified pathological fracture presence documented in this encounter Care Teams Propulsion Motor And Generator Repairer Relationship Specialty Start Date End Date Francia Gambino MD [address] [place] [address] PCP - General Family Medicine 01/27/23 documented as of this encounter
--- OUTSIDE RECORDS SUMMARY | 2025-04-12 09:23 | XMS_ITS | Clinical Summary ---
Author Organization [facility] Address [address], [address] [place] [address] Care Team Providers Care Adolescent Coordinator Name Role Phone Francia Gambino MD Primary [...] Treatment Not on file Insurance [employer] Care Teams Adolescent Coordinator Relationship Specialty Start Date End Date Francia Gambino MD [address] [place] [address] PCP - General 04/02/14
--- OUTSIDE RECORDS SUMMARY | 2025-04-12 09:23 | XMS_ITS | Encounter Summary ---
Author Organization [facility] tem Address [id number] [address] [place] [address] Care Team Providers Care Tint Layer Name Role Phone Job Alvarado MD Primary Care Provider [phone] Encounter Details Date Type Department Care Team ([facility] st Contact Info) Description 01/13/2024 Orders Only [facility] - Labor [address] [facility] [place] [address] Kalyn Lam MD [address] [facility] [id number] [place] [address] Social History Tobacco Use Types Packs/Day Years [...] on filedocumented in this encounter Care Teams Tint Layer Relationship Specialty Start Date End Date Job Alvarado MD [address] [place] [address] PCP - General Family Medicine 11/07/23 documented as of this encounter
--- OUTSIDE RECORDS SUMMARY | 2025-04-12 09:23 | XMS_ITS | Encounter Summary ---
Author Organization [facility] Address [address] [facility] [place] [address] Care Team Providers Care Newspaper Editor Name Role Phone Francia Gambino MD Primary Care Provider [phone] Encounter Details Date Type Department Care Team (Late st Contact Info) Description 10/17/2023 Clinisync Result Encounter [facility] External Department Unsolicited Diane Herbert PA [address] [place], [facility] Social History Tobacco Use Types Packs/Day Years [...] AM EST Office Visit [facility] [address] [facility] [place] [id number] Bentley Das DO [address] [place], [place] [phone] documented as of this encounter Procedures Procedure Name Priority Date/Time Associated Diagnosis Comments US PELVIS W/ TRANSVAGINAL 10/17/2023 10:10 AM EST documented in this encounter Results * US PELVIS W/ TRANSVAGINAL (10/17/2023 10:10 AM EST) Anatomical Region Laterality Modality Other 10/17/2023 10:1 0 AM EST Narrative 10/17/2023 10:12 [place] [address] Ultrasound Report Signed Patient: ISAURA RIVERA MR#: [id number] : 1950 Acct:[id number] Age/Sex: 73 / F ADM Date: 10/17/23 Loc: US Attending Dr: Diane Herbert Ordering Physician: Diane Herbert Date of Service: 10/17/23 Procedure(s): US pelvis w/ transvaginal Accession Number(s): [id number] cc: Diane Herbert; ANAMARIA CHINCHILLA [place] [id number] Patient Name: ISAURA RIVERA MRN: [id number] date: 1950 Sex: F Assigned Patient Location: Current Patient Location: [facility] Accession/Order Number: [id number] Exam Date: 10/17/2023 08:55 Report Date: 10/17/2023 10:10 At the request of: DIANE HERBERT Procedure: US pelvis w/ transvaginal EXAMINATION: US pelvis w/ transvaginal HISTORY: Thickened Endometrium R93.89 COMPARISON: 05/13/2023 FINDINGS: Transabdominal and transvaginal images The uterus is normal in size, contour and echotexture measuring 5.2 x 3.0 x 3.8 cm. No focal mass. The endometrium measures up to 1.8 cm on transvaginal imaging with ill-defined endometrial myometrial junction and fluid The ovaries are not visualized No free fluid US/US pelvis w/ transvaginal IMPRESSION: Thickened appearance of the endometrium containing fluid. This is abnormal in a postmenopausal patient. Electronically authenticated by: KVNG TILLMAN Date: 10/17/2023 10:10 Dictated By: Kvng Tillman M.D. Signed By: 10/17/23 101 DD/ 1010 TD/TT: Cook Mess: Procedure Note Radiology, Radiologist, - 10/17/2023 [place] [address] Ultrasound Report Signed Patient: ISAURA RIVERA LMR#: [id number] : 1950cct:[id number] Age/Sex: 73 / FADM Date: 10/17/23 Loc: US Attending Dr: Diane Herbert Ordering Physician: Diane Herbert Date of Service: 10/17/23 Procedure(s): US pelvis w/ transvaginal Accession Number(s): [id number] cc: Diane Herbert; ANAMARIA CHINCHILLA [place] [id number] Patient Name: ISAURA RIVERA MRN: [id number] date: 1950 Sex: F Assigned Patient Location: US Current Patient Location: [facility] Accession/Order Number: [id number] Exam Date: 10/17/2023 08:55 Report Date: 10/17/2023 10:10 At the request of: DIANE HERBERT Procedure: US pelvis w/ transvaginal EXAMINATION: US pelvis w/ transvaginal HISTORY: Thickened Endometrium R93.89 COMPARISON: 05/13/2023 FINDINGS: Transabdominal and transvaginal images The uterus is normal in size, contour and echotexture measuring 5.2 x 3.0x 3.8 cm. No focal mass. The endometrium measures up to 1.8 cm on transvaginal imaging withill-defined endometrial myometrial junction and fluid The ovaries are not visualized No free fluid US/US pelvis w/ transvaginal IMPRESSION: Thickened appearance of the endometrium containing fluid. This is abnormalin a postmenopausal patient. Electronically authenticated by: KVNG TILLMAN Date: 10/17/2023 10:10 Dictated By: Kvng Tillman M.D. Signed By:10/17/23 1012 DD/ 1010 TD/TT: Cook Mess: us Diane [facility] Final Result documented in this encounter Visit Diagnoses Not on filedocumented in this encounter Care Teams Newspaper Editor Relationship Specialty Start Date End Date Francia Gambino MD [address] [place] [phone] PCP - General Family Medicine 01/27/23 documented as of this encounter
--- OUTSIDE RECORDS SUMMARY | 2025-04-12 09:23 | XMS_ITS | Encounter Summary ---
Author Organization [facility] Address [address] [facility] [place] [address] Care Team Providers Care Speed Belt Sander Name Role Phone Francia Gambino MD Primary Care Provider Encounter Details Date Type Department Care Team (Late Contact Info) Description 01/23/2025 Abstract [facility] [address] [place] [address] Bentley Das DO [facility] [address] [place], [place] [address] Social History Tobacco Use Types Packs/Day Years [...] Encounters Date Type Department Care Team (Late Contact Info) Description 09/03/2025 10:00 AM EST Office Visit [facility] [address] [place] [address] Bentley Das DO [address] [place] [address] documented as of this encounter Visit Diagnoses Not on filedocumented in this encounter Care Teams Speed Belt Sander Relationship Specialty Start Date End Date Francia Gambino MD [address] [place] [address] PCP - General Family Medicine 01/27/23 documented as of this encounter
--- OUTSIDE RECORDS SUMMARY | 2025-04-12 09:23 | XMS_ITS | Encounter Summary ---
Author Organization [facility] Address [id number] [address] [place] [address] Care Team Providers Care Shield Operator Name Role Phone Job Alvarado MD Primary Care Provider [phone] Encounter Details Date Type Department Care Team ([facility] Contact Info) Description 10/19/2023 Orders Only [facility] [address] [place] [phone] Transcribe, Orders Support User Pain (Primary [...] pain documented in this encounter Care Teams Shield Operator Relationship Specialty Start Date End Date Job Alvarado MD [address] [place] [address] PCP - General Family Medicine 11/07/23 documented as of this encounter
--- OUTSIDE RECORDS SUMMARY | 2025-04-12 09:23 | XMS_ITS | Encounter Summary ---
Author Organization [facility] Address [address] [facility] [place] [address] Care Team Providers Care Belt Repairer Name Role Phone Francia Gambino MD Primary Care Provider Encounter Details Date Type Department Care Team (Late Contact Info) Description 01/23/2025 Abstract [facility] [address] [place] [address] Bentley Das DO [facility] [address] [place], [place] [address] Social History Tobacco Use Types Packs/Day Years [...] Office Visit [facility] [address] [place] [address] Bentley Das DO [address] [place] [address] documented as of this encounter Visit Diagnoses Not on filedocumented in this encounter Care Teams Belt Repairer Relationship Specialty Start Date End Date Francia Gambino MD [address] [place] [address] PCP - General Family Medicine 01/27/23 documented as of this encounter
--- OUTSIDE RECORDS SUMMARY | 2025-04-12 09:23 | XMS_ITS | Clinical Summary ---
Author Organization [facility] Address [id number] [address] [place] [address] Care Team Providers Care Control Clerk Subassembly Name Role Phone Job Alvarado MD Primary Care Provider [phone] Allergies Active Allergy Reactions Criticality Noted Date [...] Devices Not on file Insurance Care Teams Control Clerk Subassembly Relationship Specialty Start Date End Date Job Alvarado MD [address] [facility] [place] [address] PCP - General Family Medicine 11/07/23
--- OUTSIDE RECORDS SUMMARY | 2025-04-12 09:23 | XMS_ITS | Encounter Summary ---
Author Organization [facility] Address [id number] [address] [place] [address] Care Team Providers Care Mail Processing Associate Name Role Phone Job Alvarado MD Primary Care Provider [phone] Encounter Details Date Type Department Care Team (Late st Contact Info) Description 08/04/2021 Orders Only [facility] [address] [place] [phone] Transcribe, Orders Support User Pain (Primary [...] Cervicalgia documented in this encounter Care Teams Mail Processing Associate Relationship Specialty Start Date End Date Job Alvarado MD [address] [place] [address] PCP - General Family Medicine 11/07/23 documented as of this encounter
--- OUTSIDE RECORDS SUMMARY | 2025-04-12 09:23 | XMS_ITS | Patient Health Record ---
Author Organization [facility] in [place] Address [address] [place] [address] Care Team Providers Care Leather Toggler Name Role Phone Anamaria Chinchilla MD Primary Care Provider Sung Harris [facility] [phone] Allergies Allergen (clinical drug ingredient) Drug/Non Drug Allergy documented on EMR Reaction Allergy Type Onset Date Status hydromorphone Dilaudid Unknown Drug Allergy Act meg Results Component Value Reference Range Notes XR Foot RT (3 views) * Reviewed date:08/20/2024 01:25:36 PM Interpretation: Performing Lab: Notes/Report: XR foot SARAHI min 3V (Not yet reviewed by provider) Interpretation: Performing Lab: Notes/Report: Source Facility: [place] [address] XRay Report Signed Patient: ISAURA RIVERA MR#: [id number] : 1950 Acct:[id number] Age/Sex: 74 / F ADM Date: 10/19/24 Loc: EC Attending Dr: Sung Schmitz D.P.M. Ordering Physician: Sung Schmitz D.P.M. Date of Service: 10/19/24 Procedure(s): XR foot SARAHI min 3V Accession Number(s): [id number] cc: Sung Schmitz D.P.M.; ANAMARIA CHINCHILLA [place] [address] Patient Name: ISAURA RIVERA MRN: [id number] date: 1950 Sex: F Assigned Patient Location: EC Current Patient Location: EC Accession/Order Number: [id number] Exam Date: 10/19/2024 12:14 Report Date: 10/19/2024 12:17 At the request of: SUNG SCHMITZ DPM Procedure: XR foot SARAHI min 3V BILATERAL FEET - 3 views each COMPARISON: 09/18/2024 CLINICAL DATA: Bilateral foot pain. History of right fifth and left second metatarsal fractures. Weight-bearing AP, lateral and oblique views were obtained. Similar healing bilateral proximal metatarsal fractures are noted. No developing fractures or dislocation are seen. There are minor degenerative changes including calcaneal spurs. No solid tissue swelling is seen. XR/XR foot SARAHI min 3V IMPRESSION: STABLE HEALING METATARSAL FRACTURES. NO ACUTE FINDINGS. Impression dictated by: Maryanne Coates M.D.10/19/2024 12:17 PM Dictation Location: [place] [address] Electronically authenticated by: [id number] Y Date: 10/19/2024 12:17 Dictated By: Maryanne Coates M.D. Signed By: 10/19/24 1220 DD/ 1217 TD/TT: Perforator Loader: [place] [address] XRay Report Signed Patient: ISAURA RIVERA MR#: [id number] : 1950 Acct:[id number] Age/Sex: 74 / F ADM Date: 10/19/24 Loc: EC Attending Dr: Sung Schmitz D.P.M. Ordering Physician: Sung Schmitz D.P.M. Date of Service: 10/19/24 Procedure(s): XR ladi t SARAHI min 3V Accession Number(s): [id number] cc: Sung Schmitz D.P.M.; ANAMARIA CHINCHILLA [address] [address] Patient Name: ISAURA RIVERA MRN: [id number] date: 1950 Sex: F Assigned Patient Location: Current Patient Location: Accession/Order Numb er: [id number] Exam Date: 10/19/2024 12:14 Report Date: 10/19/2024 12:17 At the request of: SUNG SCHMITZ DPMitesh Procedure: XR foot SARAHI min 3V BILATERAL FEET - 3 views each COMPARISON: 09/18/2024 CLINICAL DATA: Bilat eral foot pain. History of right fifth and left second metatarsal fractures. Weight-bearing AP, l ateral and oblique views were obtained. Similar healing bilateral proximal m etatarsal fractures are noted. No developing fractures or dislocation are seen . There are minor degenerative changes including calcaneal spurs. No solid tissue swelling is seen. X R/XR foot SARAHI min 3V IMPRESSION: STABLE HEALING METAT ARSAL FRACTURES. NO ACUTE FINDINGS. Impression dictated by: Maryanne Coates M.D.10/19/2024 12:17 PM Dictation Location: [place] [address] Electronically authe nticated by: [id number] Y Date: 10/19/2024 12:17 Dictated By: Maryanne Coates M.D. Signed By: 10/19/24 1220 DD/ 1217 TD/TT: Perforator Loader: XR foot SARAHI min 3V (Not yet reviewed by provider) Interpretation: Performing Lab: Notes/Report: Source Facility: [place] [address] XRay Report Signed Patient: ISAURA RIVERA MR#: [id number] : 1950 Acct:[id number] Age/Sex: 74 / F ADM Date: 09/18/24 Loc: RAD Attending Dr: Sung Schmitz D.P.M. Ordering Physician: Sung Schmitz D.P.M. Date of Service: 09/18/24 Procedure(s): XR foot SARAHI min 3V Accession Number(s): [id number] cc: Sung Schmitz D.P.M.; ANAMARIA CHINCHILLA [place] [address] Patient Name: ISAURA RIVERA MRN: [id number] date: 1950 Sex: F Assigned Patient Location: RAD Current Patient Location: RAD Accession/Order Number: [id number] Exam Date: 09/18/2024 13:05 Report Date: 09/18/2024 13:44 At the request of: SUNG SCHMITZ Procedure: XR foot SARAHI min 3V EXAMINATION: XR foot SARAHI min 3V HISTORY: Pain COMPARISON: 08/08/2024 FINDINGS: RIGHT FINDINGS: BONES: Subacute healing transverse intra-articular fracture proximal diaphysis of the fifth metatarsal. Mild to moderate degenerative changes. SOFT TISSUES: Negative. No visible soft tissue swelling. OTHER: Negative. LEFT FINDINGS: BONES: Subacute healing transverse fracture proximal diaphysis of the second metatarsal. Mild to moderate degenerative changes. SOFT TISSUES: Negative. No visible soft tissue swelling. OTHER: Negative. XR/XR foot SARAHI min 3V IMPRESSION: RIGHT CONCLUSION: Subacute fracture fifth metatarsal LEFT CONCLUSION: Subacute fracture second metatarsal Electronically authenticated by: KVNG TILLMAN Date: 09/18/2024 13:44 Dictated By: Kvng Tillman M.D. Signed By: 09/18/24 1346 DD/ 1344 TD/TT: Perforator Loader: [place] [address] XRay Report Signed Patient: ISAURA RIVERA MR#: [id number] : 1950 Acct:[id number] Age/Sex: 74 / F ADM Date: 09/18/24 Loc: [facility] Attending Dr: Sung Schmitz D.P.M. Ordering Physician: Sung Schmitz D.P.M. Date of Service: 09/18/24 Procedure(s): XR ladi t SARAHI min 3V Accession Number(s): [id number] cc: Sung Schmitz D.P.M.; ANAMARIA CHINCHILLA [place] [id number] Patient Name: ISAURA RIVERA MRN: [id number] date: 1950 Sex: F Assigned Patient Location: [facility] Current Patient Location: RAD Accession/Order Numb er: [id number] Exam Date: 09/18/2024 13:05 Report Date: 09/18/2024 13:44 At the request of: SUNG SCHMITZ Procedure: XR foot SARAHI min 3V EXAMINATION: XR foot SARAHI min 3V HISTORY: Pain COMPARISON: 08/08/2024 FINDINGS: RIGHT FINDINGS: BONES: Subacute heal ing transverse intra-articular fracture proximal diaphysis of the fifth metatar gilmar. Mild to moderate degenerative changes. SOFT TISSUES: Negati ve. No visible soft tissue swelling. OTHER: Negative. LEFT FINDINGS: BONES: Subacute heal ing transverse fracture proximal diaphysis of the second metatarsal. Mild to moderate degenerative changes. SOFT TISSUES: Negati ve. No visible soft tissue swelling. OTHER: Negative. X R/XR foot SARAHI min 3V IMPRESSION: RIGHT CONCLUSION: Sanches bacute fracture fifth metatarsal LEFT CONCLUSION: Sub acute fracture second metatarsal Electronically authe nticated by: KVNG TILLMAN Date: 09/18/2024 13:44 Dictated By: Kvng Tillman M.D. Signed By: 09/18/24 1346 DD/ 1344 TD/TT: Perforator Loader: XR foot SARAHI min 3V (Not yet reviewed by provider) Interpretation: Performing Lab: Notes/Report: Source Facility: [place] [address] XRay Report Signed Patient: ISAURA RIVERA MR#: [id number] : 1950 Acct:[id number] Age/Sex: 74 / F ADM Date: 07/17/24 Loc: RAD Attending Dr: Sung Schmitz D.P.M. Ordering Physician: Sung Schmitz D.P.M. Date of Service: 07/17/24 Procedure(s): XR foot SARAHI min 3V Accession Number(s): [id number] cc: Sung Schmitz D.P.M.; ANAMARIA CHINCHILLA [place] [address] Patient Name: ISAURA RIVERA MRN: [id number] date: 1950 Sex: F Assigned Patient Location: [facility] Current Patient Location: Accession/Order Number: [id number] Exam Date: 07/17/2024 09:15 Report Date: 07/19/2024 09:29 At the request of: SUNG SCHMITZ Procedure: XR foot SARAHI min 3V EXAMINATION: XR foot SARAHI min 3V HISTORY: Bilateral Foot Pain ; lateral right foot pain; follow-up left foot fracture COMPARISON: a FINDINGS: RIGHT FINDINGS: BONES: Thin nondisplaced fracture line involving lateral cortex at base of 5th metatarsal. Mild degenerative changes of the first metatarsophalangeal joint. SOFT TISSUES: No visible soft tissue swelling. OTHER: Negative. LEFT FINDINGS: BONES: Increased sclerosis at base of second metatarsal; stable alignment. Mild degenerative change of first metatarsophalangeal joint. SOFT TISSUES: No visible soft tissue swelling. OTHER: Negative. XR/XR foot SARAHI min 3V IMPRESSION: RIGHT CONCLUSION: 1. Nondisplaced fracture involving proximal lateral cortex of the 5th metatarsal; possible stress fracture. LEFT CONCLUSION: 1. Ongoing bone healing and normal alignment of second metatarsal. Electronically authenticated by: TAMIR CONLEY Date: 07/19/2024 09:29 Dictated By: Tamir Conley M.D. Signed By: 07/19/24930 DD/ 8 TD/TT: Perforator Loader: [place] [address] XRay Report Signed Patient: ISAURA RIVERA MR#: [id number] : 1950 Acct:[id number] Age/Sex: 74 / F ADM Date: 07/17/24 Loc: RAD Attending Dr: Sung Schmitz D.P.M. Ordering Physician: Sung Schmitz D.P.M. Date of Service: 07/17/24 Procedure(s): XR ladi t SARAHI min 3V Accession Number(s): [id number] cc: Sung Schmitz D.P.M.; ANAMARIA CHINCHILLA [address] [address] Patient Name: ISAURA RIVERA MRN: [id number] date: 1950 Sex: F Assigned Patient Location: RAD Current Patient Location: Accession/Order Numb er: [id number] Exam Date: 09:15 Report Date: 07/19/2024 09:29 At the request of: SUNG SCHMITZ Procedure: XR foot SARAHI min 3V EXAMINATION: XR foot SARAHI min 3V HISTORY: Bilateral F oot Pain ; lateral right foot pain; follow-up left foot fracture COMPARISON: a FINDINGS: RIGHT FINDINGS: BONES: Thin nondispl aced fracture line involving lateral cortex at base of 5th metatarsal. Mild deg enerative changes of the first metatarsophalangeal joint. SOFT TISSUES: No vis ible soft tissue swelling. OTHER: Negative. LEFT FINDINGS: BONES: Increased scl erosis at base of second metatarsal; stable alignment. Mild degenerative change of first metatarsophalangeal joint. SOFT TISSUES: No vis ible soft tissue swelling. OTHER: Negative. X R/XR foot SARAHI min 3V IMPRESSION: RIGHT CONCLUSION: 1. Nondisplaced frac ture involving proximal lateral cortex of the 5th metatarsal; possible stress fracture. LEFT CONCLUSION: 1. Ongoing bone heal ing and normal alignment of second metatarsal. Electronically authe nticated by: TAMIR CONLEY Date: 07/19/2024 09:29 Dictated By: Tamir Conley M.D. Signed By: 07/19/24930 DD/ 8 TD/TT: Perforator Loader: XR foot LT min 3V (Not yet r eviewed by provider) Interpretation: Performing Lab: Notes/Report: Source Facility: [place] [address] XRay Report Signed Patient: ISAURA RIVERA MR#: [id number] : 1950 Acct:[id number] Age/Sex: 73 / F ADM Date: 06/05/24 Loc: RAD Attending Dr: Sung Schmitz D.P.M. Ordering Physician: Sung Schmitz D.P.M. Date of Service: 06/05/24 Procedure(s): XR foot LT min 3V Accession Number(s): [id number] cc: Sung Schmitz D.P.M.; ANAMARIA CHINCHILLA [place] [address] Patient Name: ISAURA RIVERA MRN: [id number] date: 1950 Sex: F Assigned Patient Location: RAD Current Patient Location: Accession/Order Number: [id number] Exam Date: 06/05/2024 09:19 Report Date: 06/06/2024 07:23 At the request of: SUNG SCHMITZ Procedure: XR foot LT min 3V PROCEDURE: XR foot LT min 3V COMPARISON: 02/28/2024 HISTORY: LEFT FOOT PAIN FINDINGS: BONES:Continued healing of a transverse extra-articular fracture base of the second metatarsal with increased sclerosis and callus formation. No new fracture or dislocation. Degenerative changes. SOFT TISSUES:Negative. No visible soft tissue swelling. EFFUSION:None visible. OTHER: Negative. XR/XR foot LT min 3V IMPRESSION: Stable healing second metatarsal fracture Electronically authenticated by: KVNG TILLMAN Date: 06/06/2024 07:23 Dictated By: Kvng Tillman M.D. Signed By: 06/06/24725 DD/ 2 TD/TT: Perforator Loader: [place] [address] XRay Report Signed Patient: ISAURA RIVERA MR#: [id number] : 1950 Acct:[id number] Age/Sex: 73 / F ADM Date: 06/05/24 Loc: RAD Attending Dr: Sung Schmitz D.P.M. Ordering Physician: Sung Schmitz D.P.M. Date of Service: 06/05/24 Procedure(s): XR foot LT min 3V Accession Number(s): [id number] cc: Sung Schmitz D.P.M.; ANAMARIA CHINCHILLA [place] [address] Patient Name: ISAURA RIVERA MRN: [id number] date: 1950 Sex: F Assigned Patient Location: [facility] Current Patient Location: Accession/Order Numb er: [id number] Exam Date: 09:19 Report Date: 06/06/2024 07:23 At the request of: SUNG SCHMITZ Procedure: XR foot LT min 3V PROCEDURE: XR foot LT min 3V COMPARISON: 02/28/2024 HISTORY: LEFT FOOT PAIN FINDINGS: BONES:Continued heal ing of a transverse extra-articular fracture base of the second metatarsal wi th increased sclerosis and callus formation. No new fracture or dislocat ion. Degenerative changes. SOFT TISSUES:Negativ e. No visible soft tissue swelling. EFFUSION:None visible. OTHER: Negative. X R/XR foot LT min 3V IMPRESSION: Stable healing secon d metatarsal fracture Electronically authe nticated by: KVNG TILLMAN Date: 06/06/2024 07:23 Dictated By: Kvng Tillman M.D. Signed By: 06/06/24725 DD/ 2 TD/TT: Perforator Loader: XR foot SARAHI min 3V (Not yet reviewed by provider) Interpretation: Performing Lab: Notes/Report: Source Facility: [place] [address] XRay Report Signed Patient: ISAURA RIVERA MR#: [id number] : 1950 Acct:[id number] Age/Sex: 74 / F ADM Date: 08/08/24 Loc: [facility] Attending Dr: Sung Schmitz D.P.M. Ordering Physician: Sung Schmitz D.P.M. Date of Service: 08/08/24 Procedure(s): XR foot SARAHI min 3V Accession Number(s): [id number] cc: Sung Schmitz D.P.M.; ANAMARIA CHINCHILLA [place] [address] Patient Name: ISAURA RIVERA MRN: [id number] date: 1950 Sex: F Assigned Patient Location: [facility] Current Patient Location: Accession/Order Number: [id number] Exam Date: 08/08/2024 10:36 Report Date: 08/09/2024 06:01 At the request of: SUNG SCHMITZ Procedure: XR foot SARAHI min 3V EXAMINATION: XR foot SARAHI min 3V HISTORY: Left Foot Pain, Metatarsalgia Right Foot COMPARISON: No relevant comparison available. FINDINGS: RIGHT FINDINGS: BONES: Nonhealing lateral cortical fracture involving the proximal 5th metatarsal. Mild degenerative change of the first metatarsophalangeal joint. SOFT TISSUES: No visible soft tissue swelling. OTHER: Negative. LEFT FINDINGS: BONES: Healing fracture involving the base of the second metatarsal. Mild degenerative change of first metatarsophalangeal joint. SOFT TISSUES: No visible soft tissue swelling. OTHER: Negative. XR/XR foot SARAHI min 3V IMPRESSION: RIGHT CONCLUSION: Stable nondisplaced fracture involving lateral cortex at base of 5th metatarsal; unchanged. LEFT CONCLUSION: Ongoing osseous healing involving base of second metatarsal fracture; no significant change. Electronically authenticated by: TAMIR CONLEY Date: 08/09/2024 06:01 Dictated By: Tamir Conley M.D. Signed By: 08/09/24602 DD/ 0 TD/TT: Perforator Loader: [place] [address] XRay Report Signed Patient: ISAURA RIVERA MR#: [id number] : 1950 Acct:[id number] Age/Sex: 74 / F ADM Date: 08/08/24 Loc: RAD Attending Dr: Sung Schmitz D.P.M. Ordering Physician: Sung Schmitz D.P.M. Date of Service: 08/08/24 Procedure(s): XR ladi t SARAHI min 3V Accession Number(s): [id number] cc: Sung Schmitz D.P.M.; ANAMARIA CHINCHILLA [place] [address] Patient Name: ISAURA RIVERA MRN: [id number] date: 1950 Sex: F Assigned Patient Location: RAD Current Patient Location: Accession/Order Numb er: [id number] Exam Date: 10:36 Report Date: 08/09/2024 06:01 At the request of: SUNG SCHMITZ Procedure: XR foot SARAHI min 3V EXAMINATION: XR foot SARAHI min 3V HISTORY: Left Foot P ain, Metatarsalgia Right Foot COMPARISON: No relev ant comparison available. FINDINGS: RIGHT FINDINGS: BONES: Nonhealing la teral cortical fracture involving the proximal 5th metatarsal. Mild deg enerative change of the first metatarsophalangeal joint. SOFT TISSUES: No vis ible soft tissue swelling. OTHER: Negative. LEFT FINDINGS: BONES: Healing fract ure involving the base of the second metatarsal. Mild degenerative change of first metatarsophalangeal joint. SOFT TISSUES: No vis ible soft tissue swelling. OTHER: Negative. X R/XR foot SARAHI min 3V IMPRESSION: RIGHT CONCLUSION: St able nondisplaced fracture involving lateral cortex at base of 5th metatarsal; unchanged. LEFT CONCLUSION: Jules oing osseous healing involving base of second metatarsal fracture; no signifi cant change. Electronically authe nticated by: TAMIR CONLEY Date: 08/09/2024 06:01 Dictated By: Tamir Conley M.D. Signed By: 08/09/24602 DD/ 0 TD/TT: Perforator Loader: Reason For Referral No Information Medications Medication SIG (Take, Route, Frequency, Duration) Notes Start Date End Date Status Aspirin 81 81 MG 1 tablet Orally Once a day Active Pchidv-Najk-RNC-Ca-C-CtCl-S eCu - as directed Orally Active Losartan Potassium 100 MG 1 tablet Orall y Once a day Active Norvasc 5 MG 1 tablet Orally Once a day Active Vitamin D 25 MCG (1000 UT) 1 [...] for spasm for 4 days 06/05/2024 Active [place] 3 1000 MG 1 capsule Orally Onc e a day Active Social History Tobacco Use: Social History Observation Description Date Details (start date - stop date) Never Smoker NA - NA Tobacco Use/Smoking Question Answer Notes Patient is a nonsmoker Problems Problem Type SNOMED Code ICD Code Onset Dates Problem Status W/U Status Risk Notes Problem 57169178900697754 Pain in left ankle and joints of left foot (M25.572) Active confirmed Problem 545939974699720 Metatarsalgia, right foot (M77.41) Active confirmed Problem 905846414189854 Pain in left foot (M79.672) Active confirmed Problem 045935411 Age-related osteoporosis with current pathological fracture, unspecified site, initial encounter for fracture (M80.00XA) Active confirmed Problem 57286576325714039 Stress fracture, left foot, initial encounter for fracture (M84.375A) Active confirmed second metatarsal Problem 888772883 Stress fracture, left foot, subsequent encounter for fracture with nonunion (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.375K) Active confirmed Problem Pain in right foot (087791737655920) Right foot pain (M79.671) Active confirmed Problem 78934324 Nondisplaced fracture of second metatarsal bone, left foot, subsequent encounter for fracture with nonunion (S92.325K) Active confirmed High Problem Pain in left foot (423395693297355) Left foot pain (M79.672) Active confirmed Vital Signs Heart Rate 60 /min 10/19/2024 Temperature 97.5 degrees Fahrenheit 10/19/2024 Oximetry 97 % 10/19/2024 Height 64 in 10/19/2024 Encounters Encounter Location Date Provider Diagnosis [facility] (PODIATRY) [address] [place] [address] [place] [address] 06/05/2024 Peter Highlander Stress fracture, left foot, initial encounter for fracture M84.375A ; Age-related osteoporosis with current pathological fracture, unspecified site, initial encounter for fracture M80.00XA and Pain in left foot M79.672 [facility] (PODIATRY) [address] [place] [address] [place] [address] 07/17/2024 Peter Highlander Stress fracture, right foot, initial encounter for fracture M84.374A ; Nondisplaced fracture of second metatarsal bone, left foot, subsequent encounter for fracture with nonunion S92.325K ; Age-related osteoporosis with current pathological fracture, unspecified site, initial encounter for fracture M80.00XA ; Pain in left foot M79.672 and Pain in right foot M79.671 [facility] (PODIATRY) [address] [place] [address] [place] [address] 08/08/2024 Peter Highlander Stress fracture, right foot, initial encounter for fracture M84.374A ; Stress fracture, left foot, initial encounter for fracture M84.375A ; Age-related osteoporosis with current pathological fracture, unspecified site, initial encounter for fracture M80.00XA ; Metatarsalgia, right foot M77.41 and Pain in left foot M79.672 [facility] (PODIAT[facility]) [address] [place] [address] [place] [address] 09/18/2024 Sung Schmitz Stress fracture, right foot, initial encounter for fracture M84.374A ; Age-related osteoporosis with current pathological fracture, unspecified site, initial encounter for fracture M80.00XA ; Left foot pain M79.672 ; Right foot pain M79.671 and Nondisplaced fracture of second metatarsal bone, left foot, subsequent encounter for fracture with nonunion S92.325K [facility] (PODIAT[facility]) [address] [place] [address] [place] [address] 10/19/2024 Sung Schmitz Stress fracture, left foot, initial encounter for fracture M84.375A ; Stress fracture, right foot, initial encounter for fracture M84.374A ; Age-related osteoporosis with current pathological fracture, unspecified site, initial encounter for fracture M80.00XA ; Pain in left foot M79.672 and Right foot pain M79.671 [facility] (PODIATRY) [address] [place] [address] [place] [address] 07/18/2024 Sung Schmitz [facility] (PODIATRY) [address] [place] [address] [place] [address] 09/13/2024 Sung Schmitz Assessments Encounter Date Diagnosis (ICD Code) Assessment Notes Treatment Notes Treatment Clinical Notes Section Notes 06/05/2024 Stress fracture, left foot, initial encounter for fracture (ICD-10 - M84.375A) second metatarsal Patient is doing quite well and I recommended that she transition out of the surgical shoes which should be thrown away given their significant wear. The cramping that she may be having in her feet may be secondary to wearing the surgical shoes for so long. She is finally on Prolia and questions if the cramping may be secondary to this new medication which I related I am unsure of but she should follow-up with Dr. Das for this if it does not improve. In the meantime I did prescribe a limited supply of Zanaflex and potential side effects including drowsiness were discussed. I do not believe her cramping sensation is consistent with vascular disease as her pulses are palpable and her feet are warm but more likely a mechanical issue. She will follow-up in 2 months with weightbearing left foot x-rays 06/05/2024 Age-related osteoporosis with current pathological fracture, unspecified site, initial encounter for fracture (ICD-10 - M80.00XA) 07/17/2024 Stress fracture, right foot, initial encounter for fracture (ICD-10 - M84.374A) Patient presents with a new complaint of 3-week history of right lateral foot pain after a misstep getting out of her car. X-rays today show a nondisplaced fracture of the proximal fifth metatarsal shaft is plantar and lateral cortex. I recommended to continue the surgical shoe on the size with partial protected weightbearing and should use her bone stimulator that she has for her contralateral foot on this area as well. I recommended RICE therapy with OTC pain medicine. Follow-up in a month with weightbearing bilateral foot x-rays 07/17/2024 Nondisplaced fracture of second metatarsal bone, left foot, subsequent encounter for fracture with nonunion (ICD-10 - S92.325K) Patient follows up for nonunited second metatarsal stress fracture and clinically she is doing very well. She relates that most days she wears a normal shoe on the side which she may transition as pain allows. She does feel cautious however when she is on her feet for long periods and wears a surgical shoe. She should monitor her symptoms and will follow-up with this foot as well with x-rays 08/08/2024 Stress fracture, right foot, initial encounter for fracture (ICD-10 - M84.374A) Patient presents for follow-up regarding bilateral metatarsal stress fractures. She may continue weightbearing as tolerated in surgical shoes. New surgical shoes were fitted and dispensed today as her once that she was wearing had significant wear. I recommended rest, elevation and ice. I recommended use of bone stimulator both of her metatarsal fractures as there is some evidence of early healing but remain nonunited. She will follow-up in 4 to 6 weeks with weightbearing bilateral foot x-rays 08/08/2024 Stress fracture, left foot, initial encounter for fracture (ICD-10 - M84.375A) second metatarsal 09/18/2024 Stress fracture, right foot, initial encounter [...] encounter for fracture (ICD-10 - M80.00XA) 10/19/2024 Stress fracture, left foot, initial encounter [...] 09/18/2024 Left foot pain (ICD-10 - M79.672) 08/08/2024 Age-related osteoporosis with current pathological fracture, unspecified site, initial encounter for fracture (ICD-10 - M80.00XA) 07/17/2024 Age-related osteoporosis with current pathological fracture, unspecified site, initial encounter for fracture (ICD-10 - M80.00XA) 06/05/2024 Pain in left foot (ICD-10 - M79.672) 07/17/2024 Pain in left foot (ICD-10 - M79.672) 08/08/2024 Metatarsalgia, right foot (ICD-10 - M77.41) 09/18/2024 Right foot pain (ICD-10 - M79.671) 10/19/2024 Pain in left foot (ICD-10 - M79.672) 10/19/2024 Right foot pain (ICD-10 - M79.671) 09/18/2024 Nondisplaced fracture of second metatarsal bone, left foot, subsequent encounter for fracture with nonunion (ICD-10 - S92.325K) 08/08/2024 Pain in left foot (ICD-10 - M79.672) 07/17/2024 Pain in right foot (ICD-10 - M79.671) Plan Of Treatment Pending Test Test Name Order Date XR Foot LT (3 views) * 09/18/2024 XR Foot LT (3 views) * 10/19/2024 XR Foot LT (3 views) * 06/05/2024 XR Foot LT (3 views) * 07/17/2024 XR Foot RT (3 views) * 09/18/2024 XR Foot RT (3 views) * 10/19/2024 XR Foot 3 Views Bilateral 08/08/2024 XR foot LT min 3V 06/30/2023 XR foot LT min 3V 06/06/2024 XR foot SARAHI min 3V 07/19/2024 XR foot SARAHI min 3V 08/09/2024 XR foot SARAHI min 3V 09/18/2024 XR foot SARAHI min 3V 10/19/2024 XR DEXA axial skeleton 09/20/2023 Insurance Providers Payer Name Payer Address Payer Phone Subscriber Number Group Number Insured Name Patient Relationship to Insured Coverage Start Date Coverage End Date [employer] ADV PLAN [address] [place] [address] [id number] Isaura Miguel Self - patient is the insured Medical (General) History Medical History History ICD Code arthritis high blood pressure high cholesterol Surgical History Surgery Date(Month/Year) capillary angioma x 3 tonsillectomy hemorhoidectomy cholecystectomy prolapsed bladder, cystocele colonoscopy right ankle I&D due to cat bite Hospitalization History Reason Date(Month/Year) see above
--- OUTSIDE RECORDS SUMMARY | 2025-04-12 09:23 | XMS_ITS | Encounter Summary ---
Author Organization [facility] Address [address] [facility] [place] [address] Care Team Providers Care Automatic Riveting Machine Operator Name Role Phone Francia Gambino MD Primary Care Provider Encounter Details Date Type Department Care Team (Late Contact Info) Description 10/11/2023 Abstract [facility] [address] [place] [address] Bentley Das DO [facility] [address], [place] [address] Social History Tobacco Use Types Packs/Day Years [...] Office Visit [facility] [address] [place] [address] Bentley Das DO [address] [place] [address] documented as of this encounter Visit Diagnoses Not on filedocumented in this encounter Care Teams Automatic Riveting Machine Operator Relationship Specialty Start Date End Date Francia Gambino MD [address] [place] [address] PCP - General Family Medicine 01/27/23 documented as of this encounter
--- OUTSIDE RECORDS SUMMARY | 2025-04-12 09:23 | XMS_ITS | Encounter Summary ---
Author Organization [facility] Address [address] [place] [address] Care Team Providers Care Vertical Borer Name Role Phone Francia Gambino MD Primary Care Provider [phone] Encounter Details Date Type Department Care Team (Late st Contact Info) Description 06/28/2023 Abstract [facility] [address] [facility] [address] [place] [phone] Analisa Soto DO [address] [place] [address] Social History Tobacco Use Types Packs/Day Years Used Date Smoking Tobacco: Never Alcohol Use Standard Drinks/Week Comments Yes 1 (1 standard drink = 0.6 oz pur e alcohol) Comments Unknown Sex and Gender Information Value Date Recorded Sex Assigned at Not on file Legal Sex Female 7:02 PM EDT Gender Identity Not on file Sexual Orientation Not on file COVID-19 Exposure Response Date Recorded In the last 10 days, have yo u been in contact with someone who was confirmed or suspected to have Coronavirus/COVID-19? No / Unsure 06/07/2023 2:47 PM EDT documented as of this encounter Plan of Treatment Upcoming Encounters Date Type Department Care Team (Late Contact Info) Description 09/03/2025 10:00 AM EST Office Visit [facility] [address] [place] [phone] Bentley Das DO [address] [facility] [address] [place], [place] [id number] documented as of this encounter Visit Diagnoses Not on filedocumented in this encounter Care Teams Vertical Borer Relationship Specialty Start Date End Date Francia Gambino MD [address] [place] [address] PCP - General Family Medicine 01/27/23 documented as of this encounter
--- OUTSIDE RECORDS SUMMARY | 2025-04-12 09:23 | XMS_ITS | Clinical Summary ---
Author Organization [facility] Address [address] [place] [address] Care Team Providers Care Pie Icer Machine Name Role Phone Unavailable Primary Care Provider [...]
--- OUTSIDE RECORDS SUMMARY | 2025-04-12 09:27 | XMS_ITS | CCD ---
Author Organization [facility] Providers Care Prison Psychiatrist Name Role Phone FARA BOOKER Unavailable Unavailable GAMBINO, ANJELICA Bergeron Unavailable Unavailable KARFARA TEE Unavailable Unavailable GAMBINO, ANJELICA Bergeron Unavailable Unavailable GAMBINO, DR ANJELICA Bergeron Primary Care Unavailable GAMBINO, DR ANJELICA Bergeron Attending Unavailable GAMBINO, DR ANJELICA Bergeron Admitting Unavailable GAMBINO, DR ANJELICA Bergeron Consulting Unavailable ZIEBER, DR ALAN Rico Consulting Unavailable GAMBINO, DR ANJEILCA Bergeron Primary Care Unavailable GAMBINO, DR ANJELICA Bergeron Attending Unavailable GAMBINO, DR ANJELICA Bergeron Admitting Unavailable GAMBINO, DR ANJELICA Bergeron Consulting Unavailable BELEN, DR ANJELICA Bergeron Primary Care Unavailable KARASIK, DR CHAUDHARI Consulting Unavailable KARASIMagdalena, DR CHAUDHARI Attending Unavailable KARASIMagdalena, DR CHAUDHARI Admitting Unavailable COLEMANEBYAZMIN, DR ALAN Rico Consulting Unavailable GAMBINO, DR [...] Consulting Unavailable Anamaria Chinchilla. Primary Care Physician [phone] NABIL LORD Attending Unavailable ANJELICA GAMBINO Referring Unavailable GAMBINO, ANJELICA Bergeron Primary Care Unavailable GAMBINO, ANJELICA Bergeron Referring Unavailable GAMBINO, ANJELICA Bergeron Primary Care Unavailable GAMBINO, ANJELICA Bergeron Referring Unavailable ANAMARIA CHINCHILLA Primary Care Unavailable CAROLYN, NABIL C Admitting Unavailable CAROLYN, NABIL C Attending Unavailable CAROLYN, NABIL C Referring Unavailable ANJELICA GAMBINO Primary Care Unavailable SUNG NIÑO Attending Unavailable ROSS ANAMARIA E Primary Care Unavailable CAROLYN, NABIL C Attending Unavailable CAROLYN, NABIL C Referring Unavailable ROSS, ANAMARIA E Primary Care Unavailable CAROLYN, NABIL C Attending Unavailable CAROLYN, NABIL C Referring Unavailable ROSS, ANAMARIA E Primary Care Unavailable CAROLYN, NABIL C Referring Unavailable AMOR ANAMARIA E Primary Care Unavailable PENNINGTON, MARY Attending Unavailable ANJELICA GAMBINO Referring Unavailable AMOR, ANAMARIA E Primary Care Unavailable PENNINGTONMARY JOSEPH Attending Unavailable ANAMARIA CHINCHILLA E Referring Unavailable ANAMARIA CHINCHILLA Primary Care Unavailable MD Anamaria Chinchilla Attending Unavailable MD Anamaria Chinchilla Attending Unavailable MD Anamaria Chinchilla Attending Unavailable MD Anamaria Chinchilla Admitting Unavailable MD Anamaria Chinchilla Attending Unavailable VIPUL OBANDO Attending Unavailable MD Anamaria Chinchilla Attending Unavailable Anjelica Gambino MD Primary Care Provider [phone] BENTLEY DAS Attending Unavailable BENTLEY DAS Attending Unavailable Kushal Keith Attending Unavailable Anamaria Chinchilla MD Primary Care Provider Anjelica Gambino MD Primary Care Provider Anamaria Chinchilla Attending Unavailable Leonidas Violet L Admitting Unavailable LeonidasViolet field L Attending Unavailable Anamaria Chinchilla Admitting Unavailable Anamaria Chinchilla Attending Unavailable Leonidas, Violet L Attending Unavailable Leonidas, Violet L Attending Unavailable Anamaria Chinchilla Attending Unavailable Anamaria Chinchilla Attending Unavailable Anamaria Chinchilla Attending Unavailable VIPUL OBANDO Attending Unavailable Anamaria Chinchilla Attending Unavailable Anamaria Chinchilla Attending Unavailable Anamaria Chinchilla Admitting Unavailable Anamaria Chinchilla Attending Unavailable Kaitlin Santiago Primary Care Physician UnaKaitlin Griffin Unavailable Unavailable Allergies Allergy Classification Reported Allergen(s) Allergy Type Date of Onset Reaction(s) Facility (6 sources) atorvastatin; Translations: [atorvastatin] Drug Allergy Unknown (qualifier value) [facility] (17 sources) HYDROmorphone; Translations: [hydromorphone] Drug Allergy 01-29-20 Unknown (qualifier value), Unknown, Confusion, Hallucinations [facility] (6 sources) Pyrilamine; Translations: [pyrilamine] Drug Allergy Unknown (qualifier value) [facility] (4 sources) No Known Medication Allergies; Translations: [No Known Medication Allergies] Propensity to adverse reactions (disorder) [facility] (1 source) HYDROmorphone; Translations: [Dilaudid] Drug Allergy [facility] Icecreamlabs Medications Current Medications Medication Drug Class(es) Dates Sig (Normalized) Sig (Original) amLODIPine 5 mg oral tablet (13 sources) Dihydropyridine Calcium Channel Sylvester Start: 10-09-2024 take 1 tablet by mouth once daily amLODIPine 5 mg Tab See Instructions, TAKE 1 TABLET BY MOUTH DAILY, # 90 tab(s), Refills(s) 0, Pharmacy: [facility] [id number], 162, cm, 09/17/24 9:18:00 EST, Height/Length Dosing, 77.9, kg, 09/17/24 9:18:00 EST, Weight Dosing Start Date: 10/09/24 Status: Ordered Start: 06-01-2023 take 1 tablet by silver th in the morning amLODIPine (Norvasc) 5 MG tablet Take 5 mg by mouth in the morning. 06/01/2023 Active aspirin 81 mg oral capsule (14 sources) Platelet Aggregation Inhibitor, Nonsteroidal Anti-inflammatory Drug [...] silver th every other day aspirin 81 mg tablet,delayed release take 1 tablet (81 mg) by oral route every other day aspirin 81 mg ch ewable tablet Chew 1 tablet (81 mg total) and swallow every other day. Heart health Active bimatoprost 0.01 mg drug implant (12 sources) Prostaglandin Analog Start: 07-13-2024 Durysta 1 0 mcg intraocular implant mcg, IntraOcular, Once, Refills(s) 0 Start Date: 07/13/24 Status: Ordered Start: 05-07-2024 bimatoprost 0. 03% ophthalmic solution Refill(s) 0 Start Date: 05/07/24 Status: Ordered Durysta 10 mcg i ntracameral implant injection in February 2024 both eyes Bimatoprost (Dur ysta) 10 MCG implant Inject [...] Refill(s) 0 Start Date: 05/30/23 Status: Ordered Calcium-Phosphor us-Vitamin D (VITAMIN D3/CALCIUM/PHOSP HORUS PO) (4 sources) take 1 dose by mouth once in the morning Melsccw-Hpsiibwjqg-Hqp harp D (VITAMIN D3/CALCIUM/PHOSPHORUS PO) Take 1 each by mouth in the morning. Active denosumab (11 sources) RANK Ligand Inhibitor Start: 07-30-2024 Denosumab (PROLIA SC ) Inject 1 Units under the skin every 6 (six) months 07/30/2024 Active Start: 07-30-2024 Prolia mg, Sub Cutaneous, q6mo, Refills(s) 0 Start Date: 07/30/24 Status: Ordered Prolia 60 mg/mL subcutaneous syringe inject 1 milliliter (60 mg) by subcutaneous route every 6 months in the upper arm, upper thigh or abdomen denosumab (PROLI A SUBQ) Inject under the skin every 6 (six) months. Last dose 09/2023 Active denosumab (PROLI A SUBQ) Inject under the skin every 6 (six) months. Last dose 09/2023 0 Active denosumab (PROLI A SUBQ) Inject under the skin. 0 Active docusate sodium 50 mg / sennosides, long term 8.6 mg oral tablet (2 sources) Start: 11-14-2023 take 1 tablet by mouth in the morning sennosides-docusate sodium (SENOKOT-S) 8.6-50 mg Take 1 tablet by mouth in the morning. 60 tablet 11/14/2023 Active doxycycline hyclate 100 mg oral capsule (1 source) Tetracyclin e-class Drug Start: 05-07-2024 End: 05-14-2024 take 1 capsule by mouth twice daily doxycycline hyclate 100 mg Cap 100 mg = 1 cap(s), Oral, BID, X 7 day(s), # 14 cap(s), Refills(s) 0, Pharmacy: [facility] [id number], 162, cm, 05/07/24 14:07:00 EDT, Height/Length Dosing, 76, kg, 05/07/24 14:07:00 EDT, Weight Dosing Start Date: 05/07/24 Stop Date: 05/14/24 Status: Ordered glucosamine hydrochloride 1500 mg oral tablet (5 sources) Start: 12-01-2022 glucosamine hydrochloride 1500 mg oral tablet 1,500 mg, 1 tab(s), Oral, Daily, 30 tab(s), Refill(s) 0 Start Date: 12/01/22 Status: Ordered End: 02-27-2025 take 1 capsule by mouth once daily glucosamine sulfate 500 mg capsule 02/27/2025 take 1 capsule by oral route daily glucosamine HCl/chondroitin jennings (GLUCOSAMINE-CHONDROITIN ORAL) (3 sources) take 1 tablet by mouth in the morning glucosamine HCl/chondroitin jennings (GLUCOSAMINE-CHONDROITIN [...] Ordered losartan potassium 100 mg oral tablet (13 sources) Angiotensin 2 Receptor Sylvester Start: 05-30-2023 take 1 tablet by mouth once daily losartan 100 mg Tab 100 mg = 1 tab(s), Oral, Daily, # 90 tab(s), Refills(s) 4, Pharmacy: [facility] [id number], 162, cm, 09/01/23 11:37:00 EST, Height/Length Dosing, 76, kg, 09/01/23 11:37:00 EST, Weight Dosing Start Date: 02/21/24 Status: Ordered Start: 12-15-2022 take 1 tablet by silver th twice daily losartan 25 mg Tab 25 mg = 1 tab(s), Oral, BID, # 180 tab(s), Refills(s) 0, Pharmacy: [facility] [id number], 162, cm, 05/11/23 9:36:00 EDT, Height/Length Dosing, 74.9, kg, 05/11/23 9:36:00 EDT, Weight Dosing Start Date: 05/11/23 Status: Ordered meloxicam 15 mg oral tablet (6 sources) Nonsteroidal Anti-inflammatory Drug Start: 02-27-2023 End: 11-07-2023 take 1 tablet by mouth once daily as needed meloxicam 15 mg Tab See Instructions, TAKE ONE TABLET BY MOUTH DAILY NEEDED, # 90 tab(s), Refills(s) 0, Pharmacy: [facility] [id number], 162.6, cm, 12/01/22 15:23:00 EDT, Height/Length Dosing, [...] day(s), # 14 cap(s), Refills(s) 0, Pharmacy: [facility] [id number], 162, cm, 09/17/24 9:18:00 EST, Height/Length Dosing, 77.9, kg, 09/17/24 9:18:00 EST, Weight Dosing Start Date: 10/19/24 Stop Date: 10/26/24 Status: Ordered omega-3 acid ethyl esters (long term) 1000 mg oral capsule (2 sources) take [...] mg by mouth nightly. supplement 0 Active rosuvastatin calcium 20 mg oral tablet (14 sources) HMG-CoA Reductase Inhibitor Start: 12-01-2022 take 1 tablet by mouth once daily rosuvastatin 20 mg Tab See Instructions, TAKE 1 TABLET BY MOUTH DAILY, # 90 tab(s), Refills(s) 4, Pharmacy: [facility] [id number], 162, cm, 09/01/23 11:37:00 EST, Height/Length Dosing, 76, kg, 09/01/23 11:37:00 EST, Weight Dosing Start Date: 02/21/24 Status: Ordered tafluprost 0.015 mg/ml ophthalmic solution (5 sources) Prostaglandin Analog Start: 05-11-2023 take 1 drop(s) into the eye(s) once daily Zioptan 0.0015% ophthalmic solution See Instructions, Refill(s) 0, 1 drop(s) Eye-Right & Left once daily Start Date: 05/11/23 Status: Ordered End: 02-27-2025 take 1 drop(s) into the eye(s) once daily tafluprost (PF) 0.0015 % eye drops in a dropperette 02/27/2025 instill 1 drop into affected eye(s) by ophthalmic route once daily End: 08-28-2024 Tafluprost, PF, (Zioptan) 0. 0015 [...] meal. Active take 1 capsule by mo uth [...] tablet 0 11/14/2023 11/29/2023 Discontinued (Therapy completed) acetaminophen 325 mg / HYDROcodone bitartrate 5 mg oral tablet (1 source) Opioid Agonist End: 02-27-2025 take 1 tablet by mouth every six hours as needed for pain hydrocodone 5 mg-acetaminophen 325 mg tablet 02/27/2025 take 1 tablet by oral route every 6 hours as needed for pain alendronic acid 70 mg oral tablet (4 [...] mouth daily. 0 11/07/2023 Discontinued (Therapy completed) betamethasone 3 mg/ml / betamethasone acetate 3 mg/ml injectable suspension (1 source) Corticosteroid End: 02-27-2025 Celestone Soluspan 6 mg/mL suspension for injection 02/27/2025 Inject 4 milliliters as directed weekly calcium carbonate 1500 mg / cholecalciferol 0.01 mg oral tablet (1 source) Vitamin D take 1 tablet by mouth once daily Calcium 600 + D(3) 600 mg-10 mcg (400 unit) tablet take 1 tablet by oral route daily cholecalciferol 0.025 mg oral capsule (6 sources) Vitamin D take 1 capsule by mouth once daily Vitamin D3 25 mcg (1,000 unit) capsule take 1 capsule by oral route daily take 1 capsule by mo [facility] in the morning cholecalciferol, vitamin D3, 2,000 units capsule Take 1 capsule (2,000 Units total) by mouth in the morning. 0 Active Chondroitin Sulfates / Gluco samine (4 sources) Glucosamine Eavn droitin oral 1500mg/1200mg one nightly take 1 tablet by silver th three times daily glucosamine-chondroitin 500-400 mg table t Take 1 tablet by mouth 3 (three) times a day. 0 Active docusate sodium 100 mg oral capsule (4 sources) take 2 capsules by mouth once daily at bedtime as needed Stool Softener 100 mg capsule take 2 capsules (200 mg) by oral route once daily at bedtime as needed Fish Oils (1 source) take 1 capsule by mouth once daily Fish Oil 300 mg-1,000 mg capsule take 1 capsule by oral route daily ibuprofen 800 mg oral tablet (1 source) Nonsteroidal Anti-inflammatory Drug Start: End: take 1 tablet by mouth every six hours as needed for pain ibuprofen (MOTRIN) 800 mg tablet Take 1 tablet (800 mg total) by mouth every 6 (six) hours as needed for pain. 60 tablet 0 11/14/2023 11/29/2023 Discontinued (Therapy completed) methylPREDNISolone 4 mg oral tablet (1 source) Corticosteroid End: Medrol (Morro) 4 mg tablets in a dose pack 02/27/2025 take by oral route as directed per package instructions omega-3 fatty acids-fish oil (FISH OIL) 300-1,000 mg capsule (4 sources) End: 024 take 1 capsule by mouth once daily [...] tablet 0 11/14/2023 11/29/2023 Discontinued (Therapy completed) psyllium 400 mg oral capsule (10 sources) End: 02-27-2025 take 1 capsule by mouth once daily Metamucil 0.4 gram capsule 02/27/2025 take 1 capsule by oral route daily End: 08-28-2024 psyllium (Metamucil) 48.57 % powder Orally 08/28/2024 Discontinued take 1 dose by mouth in the morning psyllium (METAMUCIL) 3.4 gram packet Indications: constipation Take 1 packet (3.4 g total) by mouth in the morning. Indications: constipation. Active stool softner (2 sources) Start: 07-30-2024 stool softner stool softner, 100 mg, Oral, Bedtime, take 2 Start Date: 07/30/24 Status: Ordered vitamin E oral 180mg (1 source) vitamin E oral 1 80mg 1 nightly Problems Active Problems Problem Classification Problem Date [...] [Hypercholesterolemia ] Onset: 12-27-2016 Chronic Essential hypertension (13 sources) Essential (primary) hypertension; Translations: [Hypertensive disorder] Onset: 11-05-2021 Chronic Glaucoma (1 source) Unspecified glaucoma Chronic Heart valve disorders (1 source) Rheumatic [...] unspecified site] Onset: 12-27-2016 01-31-2023 Chronic Osteoporosis (11 sources) Senile osteoporosis; Translations: [Age-related osteoporosis without [...] Pain in left arm 08-27-2024 Episodic Other connective tissue disease (1 source) Pain in right leg Onset: 02-27-2025 Episodic Other connective tissue disease (1 source) Pain in left leg Onset: 02-27-2025 Episodic Other injuries and conditions due to external causes (2 sources) Cat bite - wound 09-10-2024 Episodic Other lower respiratory disease (2 sources) Chronic cough 07-30-2024 Episodic Other nervous system disorders (1 source) Other acute postprocedural pain; Translations: [Other acute postprocedural pain] Onset: 11-14-2023 Episodic Other nervous system disorders (1 source) Other disturbances of skin sensation Onset: 02-27-2025 Episodic Other nutritional; endocrine; and metabolic disorders [...] Name Value Interpretation Reference Range Facil ity No Panel Informationon 02-08 Tobacco smoking status Non-Smoker Invalid Interpretation Code [facility] Work Phone: Ambulatory Visit Summaryon 0 01-28-2025 Ambulatory Visit Summary Ambulatory Visit Summary ISAURA HAYDEN Alonzo :1950 Visit Date:01/28/2025 Ambulatory Visit Instructions Your [...] Follow-Up Appointments 2024 11:00 AM EST Where: [address] [address]- Medications What How Much When Instructions Unchanged amlodipine (amLODIPine 5 mg Tab) See instructions TAKE 1 TABLET BY MOUTH DAILY Pickup at [facility] [id number] Unchanged aspirin (aspirin 81 mg oral capsule) [...] physician if questions or concerns Pharmacy Information [facility] [id number]: [address] [place], [place] [id number] [phone] Allergies Dilaudid (Unknown) Problems Ongoing - Any [...] for choosing us for your care. [facility] Family Medicine Office/Clini c Noteon 01-28-2025 Family Medicine Office/Clinic Note Family Medicine Office/Clinic Note Chief Complaint 6 month f/u The patient presents for management of chronic health conditions including hypertension and osteoporosis. HPI Staff EMILY and SDOH due today Patient in office for 6 [...] DAILY, # 90 tab(s), Refills(s) 1, [facility] [id number], 162, cm, 01/28/25 9:01:00 EDT, Height/Length Dosing, [...] regimens f (more content not included)... [facility] Comment on above: Result Comment: Elec tronically Signed By: Amor SHORT, Anamaria Harvey\.br\Date and Time Signed: 01/28/25 09:32 EDT Reminderson 10-22-2024 Reminders Reminders From: Violet Allen To: [facility] - Clinical; Sent: 10/22/2024 08:07:37 EST Show up: 10/22/2024 08:07:00 EST Subject: Ambulatory Reminder Due Date/Time: 10/23/2024 08:06:00 EST urine culture was positive. she is on the correct antibiotic. continue that until it is gone. Is she feeling better? Results: Date Result Type Ind Result Name 10/19/2024 10:39 EST MBO POS Urine Culture From: Maryanne Cramer M.A. ([facility] - Clinical) To: Violet Allen; Sent: 10/22/2024 09:32:36 EST Show up: 10/22/2024 09:31:00 EST Subject: RE: Ambulatory Reminder understands, and she said she is feeling a lot better than what she was [facility] Reminders Reminders From: Violet Allen To: [facility] - Clinical; Sent: 10/22/2024 08:07:37 EST Show up: 10/22/2024 08:07:00 EST Subject: Ambulatory Reminder Due Date/Time: 10/23/2024 08:06:00 EST urine culture was positive. she is on the correct antibiotic. continue that until it is gone. Is she feeling better? Results: Date Result Type Ind Result Name 10/19/2024 10:39 EST MBO POS Urine Culture [facility] C Urineon 10-21-2024 Bacteria identified Cx Nom [...] Locations R1: This test was performed at: [facility], [address] [place] [address], [facility]- , , [facility] Comment on above: Performed By: #### 2 [id number] #### [facility] [address] [place] [address] [facility] CALCIUMon 10-05-2024 Calcium [Mass/Vol] 8.9 mg/dL 8.5 - 10.1 mg/dL [facility] Family Medicine Office/Clini c Noteon 09-17-2024 Family [...] and her call the squad transferred to [facility] she did vomit a few times [...] her called 911 and was taken to [facility]. was hydrated with IV fluids and [...] tendinitis, unspecified shoulder) pt was seen at [facility] ortho Dr. Keith to go over [...] 23-valent v (more content not included)... [facility] Comment on above: Result Comment: Elec tronically Signed By: Violet Allen.kelly\Date and Time Signed: 09/17/24 11:46 EST C ANAon 09-13-2024 C KARLEE -- - Pre No anaerobic growth after 48 hrs. Normal [facility] Comment on above: Performed By: #### A NAC #### [address] [address] [place] 09-13-2024 C Wound -- - Final No growth at 48 hours. Normal [facility] Comment on above: Performed By: #### W DC #### [address] [address] Family Medicine Office/Clini c Noteon 09-11-2024 Family Medicine Office/Clinic Note Family Medicine Office/Clinic Note HPI Staff Isaura is a 74 year old female presenting with a cat bite on right ankle Onset: History of Present Illness Pt was [place] 1-2 [place] Seen in [facility] who started the [...] pneumococcal 23-valent vaccine 06/25/2008 Recorded [facility] Comment on above: Result Comment: Elec tronically Signed By: Amor SHORT, Anamaria Harvey\.br\Date and Time Signed: 09/11/24 12:15 EST OR Trackon 09-11-2024 Specimens Received From [facility] Comment on above: Performed By: #### O [facility] Tracking Order #### [address] [place] [address] Ambulatory Visit Summaryon 0 09-10-2024 Ambulatory Visit [...] EDT With: Amor SHORT, Anamaria Harvey Where: [address] [address] 2024 11:00 AM EST With: Where: [address] [address] Medications What How Much When Instructions Unchanged [...] for choosing us for your care. [facility] Ambulatory Visit Summaryon 0 08-27-2024 [...] AM EDT With: Anamaria Chinchilla MD Where: [address] [address] 2024 11:00 AM EST With: Where: [address] [address]- Medications What How Much When Instructions Unchanged [...] for choosing us for your care. [facility] Family Medicine Office/Clini c Noteon 08-27-2024 [...] ortho for this. Follow up PRN Ordered: [facility] External [facility] [place]erral 2. CKD stage 3a, GFR 45-59 ml/min (N18.31: Chronic kidney disease, stage 3a) Improved on last lab work. Follow up PRN Ordered: A1c POC [id number] [facility] External Ambulatory Referral 3. BMI 29.0-29.9,adult (Z68.29: Body mass index [BMI] 29.0-29.9, adult) BMI education added Ordered: [facility] External Ambulatory Referral 4. Age-related osteoporosis without current pathological fracture (M81.0: Age-related osteoporosis without current pathological fracture) Reviewed Labs and Dexa. Prolia does not seem to be helping. Follows with Dr. Das. Ordered: [facility] External Ambulatory Referral Follow-up No qualifying data [...] A1c POC: 5.2 % (08/27/24 12:02:00) [facility] Comment on above: Result Comment: Elec tronically Signed By: Amor SHORT, Anamaria Harvey\.br\Date and Time Signed: 08/27/24 12:03 EST CBC w/ Auto Diffon 4 Basophils/100 WBC (Bld) 0.7 % Normal 0.0-2.0 [facility] Comment on above: Performed By: #### 2 [id number] #### [facility] [address] [place] [address] Basophils/Leukocyte s Auto (Bld) [Pure # fraction] 0.1 E9/L Normal 0.0-0.2 [facility] Comment on above: Performed By: #### 2 [id number] #### [facility] [address] [place] [address] Eosinophils (Bld) [#/Vol] 0.3 E9/L Normal 0.0-0.5 [facility] Comment on above: Performed By: #### 2 [id number] #### [facility] [address] [place] [address] Eosinophils/100 WBC (Bld) 3.2 % Normal 0.0-8.0 [facility] Comment on above: Performed By: #### 2 [id number] #### [facility] [address] [place] [id number] Erythrocyte distribution width (RBC) [Ratio] 13.7 % Normal 10.9-14.2 [facility] Comment on above: Performed By: #### 2 [id number] #### [facility] [address] [place] [address] Hematocrit (Bld) [Volume fraction] 36.1 % Normal 34.0-46.0 [facility] Comment on above: Performed By: #### 2 [id number] #### [facility] [address] [place] [address] Hemoglobin (Bld) [Mass/Vol] 12.3 g/dL Normal 12.0-16.0 [facility] Comment on above: Performed By: #### 2 [id number] #### [facility] [address] [place] [address] Lymphocytes (Bld) [#/Vol] 1.7 E9/L Normal 1.0-4.0 [facility] Comment on above: Performed By: #### 2 [id number] #### [facility] [address] [place] [address] Lymphocytes/100 WBC (Bld) 20.6 % Normal 14.0-50.0 [facility] Comment on above: Performed By: #### 2 [id number] #### [facility] [address] [place] [address] MCH (RBC) [Entitic mass] 33.6 pg Normal 27.0-34.0 [facility] Comment on above: Performed By: #### 2 [id number] #### [facility] [address] [place] [address] MCHC (RBC) [Mass/Vol] 34.1 g/dL Normal 31.4-36.0 [facility] Comment on above: Performed By: #### 2 [id number] #### [facility] [address] [place] [address] MCV (RBC) [Entitic vol] 98.7 fL Normal 80.0-100.0 [facility] Comment on above: Performed By: #### 2 [id number] #### [facility] [address] [place] [address] Monocytes (Bld) [#/Vol] 0.6 E9/L Normal 0.2-1.0 [facility] Comment on above: Performed By: #### 2 [id number] #### [facility] [address] [place] [address] Neutrophils (Bld) [#/Vol] 5.8 E9/L Normal 2.0-7.5 [facility] Comment on above: Performed By: #### 2 [id number] #### [facility] [address] [place] [address] Neutrophils/100 WBC (Bld) 68.8 % Normal 36.0-75.0 [facility] Comment on above: Performed By: #### 2 [id number] #### [facility] Laboratory [address] [place] [address] Platelet 304.0 E9/L Normal 150.0-500.0 [facility] Comment on above: Performed By: #### 2 [id number] #### [facility] [address] [place] [address] Platelet mean volume (Bld) [Entitic vol] 8.4 fL Normal 6.4-10.8 [facility] Comment on above: Performed By: #### 2 [id number] #### [facility] [address] [place] [address] RBC (Bld) [#/Vol] 3.7 E12/L Low 4.3-5.9 [facility] Comment on above: Performed By: #### 2 [id number] #### [facility] [address] [place] [address] WBC corrected for nucl RBC Auto (Bld) [#/Vol] 8.5 E9/L Normal 4.0-11.0 [facility] Comment on above: Performed By: #### 2 042142 #### [facility] [address] [place] [address] CHEMISTRYOrdered By: SYSTEM SYSTEM on 08-09-2024 25-hydroxyvitamin [...] 08-09-2024 Albumin [Mass/Vol] 4.4 g/dL Normal 3.3-5.0 [facility] Comment on above: Performed By: #### 2 724948 #### [facility] [address] [place] [address] Albumin/Globulin (S) [Mass conc ratio] 1.6 Normal 1.1-2.2 [facility] Comment on above: Performed By: #### 2 [id number] #### [facility] [address] [place] [address] ALP [Catalytic activity/Vol] 52 Int._Unit/L Normal 21-98 [facility] Comment on above: Performed By: #### 2 [id number] #### [facility] [address] [place] [address] ALT No additional P-5'-P [Catalytic activity/Vol] 14 Int._Unit/L Normal 6-46 [facility] Comment on above: Performed By: #### 2 068148 #### [facility] [address] [place] [address] Anion gap [Moles/Vol] 11 mmol/L Normal 6-16 [facility] Comment on above: Performed By: #### 2 188164 #### [facility] [address] [place] [address] AST [Catalytic activity/Vol] 18 Int._Unit/L Normal 5-43 [facility] Comment on above: Performed By: #### 2 349532 #### [facility] [address] [place] [address] Bilirubin [Mass/Vol] 0.9 mg/dL Normal 0.0-1.1 [facility] Comment on above: Performed By: #### 2 823472 #### [facility] [address] [place] [address] Calcium [Mass/Vol] 8.9 mg/dL Normal 8.9-11.1 [facility] Comment on above: Performed By: #### 2 274403 #### [facility] [address] [place] [address] Chloride [Moles/Vol] 107 mmol/L Normal 101-111 [facility] Comment on above: Performed By: #### 2 858288 #### [facility] [address] [place] [address] CO2 [Moles/Vol] 27 mmol/L Normal 21-31 [facility] Comment on above: Performed By: #### 2 652836 #### [facility] [address] [place] [address] Creatinine [Mass/Vol] 1.1 mg/dL Normal 0.5-1.3 [facility] Comment on above: Performed By: #### 2 765749 #### [facility] [address] [place] [address] Globulin (S) [Mass/Vol] 2.8 g/dL Normal 1.4-4.0 [facility] Comment on above: Performed By: #### 2 702467 #### [facility] [address] [place] [address] Glucose [Mass/Vol] 105 mg/dL Normal 55-199 [facility] Comment on above: Performed By: #### 2 517476 #### [facility] [address] [place] [address] Potassium [Moles/Vol] 4.1 mmol/L Normal 3.5-5.3 [facility] Comment on above: Performed By: #### 2 959812 #### [facility] [address] [place] [address] Protein [Mass/Vol] 7.2 g/dL Normal 6.0-7.8 [facility] Comment on above: Performed By: #### 2 552770 #### [facility] [address] [place] [address] Sodium [Moles/Vol] 141 mmol/L Normal 135-145 [facility] Comment on above: Performed By: #### 2 874159 #### [facility] [address] [place] [address] Urea nitrogen [Mass/Vol] 15 mg/dL Normal 5-21 [facility] Comment on above: Performed By: #### 2 104588 #### [facility] [address] [place] [address] Urea nitrogen/Creatinine [Mass ratio] 14 No Units Normal 10-20 [facility] Comment on above: Performed By: #### 2 943201 #### [facility] [address] [place] [address] HEMATOLOGYOrdered By: SYSTEM SYSTEM on 08-09-2024 Basophils/100 [...] 08-09-2024 Cholesterol [Mass/Vol] 208 mg/dL High 120-200 [facility] Comment on above: Performed By: #### 2 554079 #### [facility] [address] [place] [address] Cholesterol in HDL [Mass/Vol] 64 mg/dL Invalid Interpretation Code [facility] Comment on above: Result Comment: '>= 60 LOW RISK' '<= 40 HIGH RISK' Performed By: #### 2 249258 #### [facility] [address] [place] [address] Cholesterol in LDL [Mass/Vol] 104 mg/dL Normal <=129 [facility] Comment on above: Performed By: #### 2 038194 #### [facility] [address] [place] [address] Cholesterol in VLDL [Mass/Vol] 36 mg/dL Normal 7-40 [facility] Comment on above: Performed By: #### 2 501356 #### [facility] [address] [place] [address] Triglyceride [Mass/Vol] 182 mg/dL High <=149 [facility] Comment on above: Performed By: #### 2 619011 #### [facility] [address] [place] [address] TSH With T4fr Reflexon 08-09 TSH Qn 2.85 m[IU]/L Normal 0.34-5.60 [facility] Comment on above: Performed By: #### 1 [id number] #### [facility] [address] [place] [address] U MA/Cr Ratioon 08-09-2024 Albumin DL <= 20 mg/L (U) [Mass/Vol] mg/dL Normal 0.0-1.9 [facility] Comment on above: Performed By: #### 1 [id number] #### [facility] [address] [place] [address] Albumin/Creatinine DL <= 20 mg/L (U) [Mass ratio] NOT CALCULATED Invalid Interpretation Code .0-30.0 [facility] Comment on above: Result Comment: 30-3 00 mg/g Cr indicates an increased risk for diabetic nephropathy. >300 mg/g Cr is consistent with clinical nephropathy. Performed By: #### 1 [id number] #### [facility] [address] [place] [address] U Creatinine 127.3 mg/dL Invalid Interpretation Code [facility] Comment on above: Performed By: #### 1 [id number] #### [facility] [address] [place] [address] Vit B12on 08-09-2024 Cobalamin (Vitamin B12) [Mass/Vol] 253 pg/mL Normal 50-1500 [facility] Comment on above: Performed By: #### 2 377645 #### [facility] [address] [place] [address] Vitamin D 25 Hydroxyon 08-09 25-hydroxyvitamin D3 [Mass/Vol] 36.9 ng/mL Normal 30.0-100.0 [facility] Comment on above: Performed By: #### 5 [id number] #### [facility] [address] [place] [address] eGFRon 08-09-2024 eGFR 53 mL/min/1.73 m2 Low >=59 [facility] Comment on above: Performed By: #### 1 [id number] #### [facility] [address] [place] [address] Ambulatory Visit Summaryon 1 10-08-2023 Ambulatory Visit [...] Appointments 2023 8:40 AM EST With: Where: [address] [address]- Tuesday 8:45 AM EDT With: Amor SHORT, Anamaria Harvey Where: [address] [address]- 2024 11:00 AM EST With: Where: [address] [address]- You Need to Complete the Following CBC [...] Hypercholesterolemia Hyperlipidemia (more content not included)... [facility] Medicine Office/Clini c Noteon [...] : Living will, Medical durable power of consumer attorney Location of Advance Directive : Family [...] Depression Screening Result : Negative Martha Pereira 07/30/ (more content not included)... [facility] Comment on above: Result Comment: [...] Appointments 2023 8:40 AM EST With: Where: [address] [id number]- Tuesday 8:45 AM EDT With: Anamaria Chinchilla MD Where: [address] [address]- 2024 11:00 AM EST With: Where: [place] [address] [place] [address]- You Need to Complete the Following CBC [...] Chronic cough Duration: 7 Days Pickup at [facility] [id number] Unchanged amlodipine (amLODIPine 5 mg Tab) See [...] fatty a (more content not included)... [facility] Ambulatory Visit Summary Ambulatory Visit [...] Appointments 2023 8:40 AM EST With: Where: [address] [address]- Tuesday 8:45 AM EDT With: Anamaria Chinchilla MD Where: [facility] [address]- 2024 11:00 AM EST With: Where: [address] [address]- You Need to Complete the Following CBC [...] 7 Days Pickup at [facility] [id number] Unchanged amlodipine (amLODIPine 5 mg Tab) See [...] fatty a (more content not included)... Normal [facility] Medicine Office/Clini c Noteon [...] humorously by the physician as looking like [place] cheese on X-rays. She uses a bone [...] cap(s), Refills(s) 0, Pharmacy: [facility] [id number], 162, cm, 07/30/24 10:07:00 EST, Height/Length Dosing, 75.8, kg, 07/30/24 10:07:00 EST, Weight Dosing CBC w/ Auto Diff TSH With T4fr Reflex Vitamin B12 Level Vitamin D 25 Hydroxy 2. Hypercholesterolemia (E78.00: Pure hypercholesterolemia, unspecified) As below. Ordered: benzonatate, 200 mg = 1 cap(s), Oral, TID, X 7 day(s), # 21 cap(s), Refills(s) 0, Pharmacy: [facility] [id number], 162, cm, 07/30/24 10:07:00 EST, Height/Length Dosing, 75.8, kg, 07/30/24 10:07:00 EST, Weight Dosing CBC w/ Auto Diff TSH With T4fr Reflex Vitamin B12 Level Vitamin D 25 Hydroxy 3. Hyperlipidemia (E78.5: Hyperlipidemia, unspecified) Continue on a statin as before. Ordered: benzonatate, 200 mg = 1 cap(s), Oral, TID, X 7 day(s), # 21 cap(s), Refills(s) 0, Pharmacy: [facility] [id number], 162, cm, 07/30/24 10:07:00 EST, Height/Length Dosing, [...] day(s), # 21 cap(s), Refills(s) 0, Pharmacy: [facility] [id number], 162, cm, 07/30/24 10:07:00 EST, Height/Length Dosing, 75.8, kg, 07/30/24 10:07:00 EST, Weight Dosing CBC w/ Auto Diff Comprehensive Metab (more content not included)... [facility] Comment on above: Result Comment: [...] feel free to contact me at extension [phone]. Thank you! Daly Joy, ALEXN, RN, CCM, CCDS, CCDS-O CDI [employer] [address] [place] [address] P: [phone] F: [phone] [email or web address] From: Amor SHORT, Anamaria Harvey To: Benita MENJIVAR, Daly; Sent: 07/30/2024 15:17:44 EST Subject: RE: Pre-Visit Planning Caller Name: ISAURA HAYDEN; Caller Number: Adrian , M I could not address this today. Thanks Normal [facility] Medicine Office/Clini c Noteon [...] in 3-5 days Ordered: Rapid Strep POC [address] Follow-up No qualifying data available Patient Education Pharyngitis, Zanw-qo-Ggmn Problem List/Past Medical History Ongoing Age-related osteoporosis [...] Strep POC Result: Negative (07/13/24 11:52:00) [facility] Comment on above: Result Comment: Elec tronically Signed By: GISELLA MORAN, VIPUL Rosario\juaquin\Date and Time Signed: 07/13/24 11:55 EST C [...] Locations R1: This test was performed at: [facility], [address] [place] [address], [facility] , , [facility] Comment on above: Performed By: #### 2 [id number] #### [facility] [address] [place] [address] Ambulatory Visit Summaryon 0 05-07-2024 Ambulatory Visit Summary Ambulatory Visit Summary ISAURA HAYDEN Alonzo :1950 Visit Date:05/07/2024 Ambulatory Visit Instructions [...] EST With: Amor SHORT, Anamaria Harvey Where: [address] [address]- Tuesday 11:00 AM EST With: Where: [address] [address]- Medications What How Much When Instructions Unchanged [...] for choosing us for your care. Normal [facility] Medicine Office/Clini c Shena 05-07-2024 Family Medicine Office/Clinic Note Family Medicine [...] day(s), # 14 cap(s), Refills(s) 0, [facility] [id number], 162, cm, 05/07/24 14:07:00 EDT, Height/Length Dosing, 76, kg, 05/07/24 14:07:00 EDT, Weight Dosing Body Mass Index (BMI) documented 3008F Current tobacco non-user 1036F Depression Screening Negative 3352F E&M of Est. Patient Low 20-29 Min 65522 Influenza immunization status assessed 1030F Medication list [...] Urnls Dip Stick Auto w/o Microscopy POC 06628 2. Non-smoker (Z78.9: Other specified health status) - Please continue to not smoke Ordered: doxycycline, 100 mg = 1 cap(s), Oral, BID, X 7 day(s), # 14 cap(s), Refills(s) 0, [facility] [id number], 162, cm, 05/07/24 14:07:00 EDT, Height/Length Dosing, 76, kg, 05/07/24 14:07:00 EDT, Weight Dosing Body Mass Index (BMI) documented 3008F Current tobacco non-user 1036F Depression Screening Negative 3352F E&M of Est. Patient Low 20-29 Min 60420 Influenza immunization status assessed 1030F Medication list [...] day(s), # 14 cap(s), Refills(s) 0, Pharmacy: [facility] [id number], 162, cm, 05/07/24 14:07:00 EDT, Height/Length Dosing, 76, kg, 05/07/24 14:07:00 EDT, Weight Dosing Body Mass Index (BMI) documented 3008F Current tobacco non-user 1036F Depression Screening Negative 3352F E&M of Est. Patient Low 20-29 Min 86196 Influenza immunization status assessed 1030F Medication list [...] day(s), # 14 cap(s), Refills(s) 0, Pharmacy: [facility] [id number], 162, cm, 05/07/24 14:07:00 EDT, Height/Length Dosing, 76, kg, 05/07/24 14:07:00 EDT, Weight Dosing Body Mass Index (BMI) documented 3008F Current tobacco non-user 1036F Depression Screening Negative 3352F E&M of Est. Patient Low 20-29 Min 52909 Influenza immunization status assessed 1030F Medication list [...] with stage 3a (more content not included)... [facility] Comment on above: Result Comment: Elec tronically Signed By: Amor SHORT, Anamaria Harvey\.br\Date and Time Signed: 05/07/24 14:35 EDT Dexa Scanson 02-08-2024 Dexa Scans [id number]#1.0 0TIFF [facility] Consultation Noteon 02-07-20 Consultation Note [id number]#1.0 0TIFF [facility] RAD - MISCon 02-02-2024 RAD - MIS [id number]#1.0 0TIFF [facility] RAD - MISC [id number]#1.0 0TIFF [facility] Consultation Noteon 01-30-20 Consultation Note [id number]#1.0 0TIFF [facility] Consultation Noteon 12-26-19 Consultation Note [id number]#1.0 0TIFF [facility] RAD - MISCon 12-21-2023 RAD MIS [id number]#1.0 0TIFF [facility] RAD MIS [id number]#1.0 0TIFF [facility] Consultation Noteon 12-09-19 Consultation Note [id number]#1.0 0TIFF [facility] Consultation Noteon 11-24-19 Consultation Note [id number]#1.0 0TIFF [facility] Discharge Documentationon Discharge Documentation [id number]#1.0 0TIFF [facility] Cytologyon 11-14-[address] [facility] Comment on above: Result Comment: [facility] [address] [place] [address] Cytology Consultation Patient Name:ISAURA HAYDEN:1950 (Age: 73)Gender:FTaken:11/14/2023eported:11/16/2023 14:25Physician(s):Nabil Lord M.D. ([phone])Copy To: Rec. #:[id number]: #[id number] Final Cytologic Diagnosis Pelvic washings: No malignant cells identified. [facility]/11/16/2023 [place] [address], License number: [id number].Electronically Signed Out By Edie Day MD Clinical History Thickened endometrium/ post menopausal bleeding/ cervical stenosis. Gross Description Received was 35mL of clear colorless fluid unfixed labeled as Catracho, pelvic washings . CytoLyt added in lab. Unable to obtain cellblock, ThinPrep made. 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 ([phone])Copy To: Rec. #:[id number]: #[id number] Final Pathologic Diagnosis Uterus, cervix, bilateral fallopian tubes, bilateral ovaries, TAHBSO: Cervix with no significant histopathologic abnormality Endometrium with cystic atrophy Myometrium with adenomyosis Bilateral adnexa with no significant histopathologic abnormality Report Electronically Signed Out nsk/11/16/2023Edie Day MD Interpretation performed at [facility], [address] [place] [address], License number: [id number]. Clinical History Thickened endometrium, postmenopausal bleeding, cervical [...] ovary L-N Remainder of endometrium (14, ss, [id number], A- K, m6) MONICO/MD kilgore/11/14/2023GR Specimen(s) Received Uterus, cervix, bilateral fallopian tubes, bilateral ovaries Fee Codes(s): 1; 57878 Consultation Noteon 11-10-19 Consultation Note [id number]#1.0 0TIFF [facility] CBC AND AUTO DIFFon 11-09-19 ABSOLUTE BASOPHIL 0.1 X10E9/L Normal 0.0-0.2 [facility] Comment on above: Performed By: #### C BCA, CMP #### [facility] ([id number]) [address] [place] [address] ABSOLUTE NEUTROPHIL 3.1 X10E9/L Normal 1.5-6.6 [facility] Comment on above: Performed By: #### C REBEKA, CMP #### [facility] ([id number]) [address], [address] [place] [address] Basophils/100 WBC (Bld) 0.9 % Normal [facility] Comment on above: Performed By: #### C REBEKA, CMP #### [facility] ([id number]) [address], [address] [place] [address] Eosinophils (Bld) [#/Vol] 0.2 10*3/uL Normal 0.0-0.4 [facility] Comment on above: Performed By: #### C REBEKA, CMP #### [facility] ([id number]) [address], [address] [place] [address] Eosinophils/100 WBC (Bld) 4.3 % Normal [facility] Comment on above: Performed By: #### C REBEKA, CMP #### [facility] ([id number]) [address], [address] [place] [address] Erythrocyte distribution width (RBC) [Ratio] 13.1 % Normal 11.5-15.0 [facility] Comment on above: Performed By: #### C REBEKA, CMP #### [facility] ([id number]) [address], [address] [place] [address] Hematocrit (Bld) [Volume fraction] 35.6 % Normal 35-47 [facility] Comment on above: Performed By: #### C BCA, CMP #### [facility] ([id number]) [address], [address] [place] [address] Hemoglobin (Bld) [Mass/Vol] 12.4 g/dL Normal 11.7-15.5 [facility] Comment on above: Performed By: #### C BCA, CMP #### [facility] ([id number]) [address], [address] [place] [address] Lymphocytes (Bld) [#/Vol] 1.7 10*3/uL Normal 1.0-3.5 [facility] Comment on above: Performed By: #### C BCA, CMP #### [facility] ([id number]) [address] [place] [address] Lymphocytes/100 WBC (Bld) 31.2 % Normal [facility] Comment on above: Performed By: #### C BCA, CMP #### [facility] ([id number]) [address], [address] [place] [address] MCH (RBC) [Entitic mass] 33.3 pg Normal 27-34 [facility] Comment on above: Performed By: #### C BCA, CMP #### [facility] ([id number]) [address], [address] [place] [address] MCHC (RBC) [Mass/Vol] 34.7 g/dL Normal 32-36 [facility] Comment on above: Performed By: #### C BCA, CMP #### [facility] ([id number]) [address], [address] [place] [address] MCV (RBC) [Entitic vol] 96 fL Normal 80-100 [facility] Comment on above: Performed By: #### C BCA, CMP #### [facility] ([id number]) [address], [address] [place] [address] Monocytes (Bld) [#/Vol] 0.5 10*3/uL Normal 0-0.9 [facility] Comment on above: Performed By: #### C REBEKA, CMP #### [facility] ([id number]) [address], [address] [place] [address] Monocytes/100 WBC (Bld) 8.2 % Normal [facility] Comment on above: Performed By: #### C BCA, CMP #### [facility] ([id number]) [address] [facility] [address] [place] [address] Neutrophils/100 WBC (Bld) 55.4 % Normal [facility] Comment on above: Performed By: #### C REBEKA, CMP #### [facility] ([id number]) [address], [address] [place] [address] Platelet mean volume (Bld) [Entitic vol] 8.2 fL Normal 7-12 [facility] Comment on above: Performed By: #### C REBEKA, CMP #### [facility] ([id number]) [address], [address] [place] [address] Platelets (Bld) [#/Vol] 284 10*3/uL Normal 150-450 [facility] Comment on above: Performed By: #### C REBEKA, CMP #### [facility] ([id number]) [address], [address] [place] [address] RBC COUNT 3.72 X10E12/L Low 3.80-5.20 [facility] Comment on above: Performed By: #### C BCA, CMP #### [facility] ([id number]) [address] [address] [place] [address] WBC (Bld) [#/Vol] 5.6 10*3/uL Normal 4.0-11.0 [facility] Comment on above: Performed By: #### C BCA, CMP #### [facility] ([id number]) [address], [address] [place] [address] COMPREHENSIVE METABOLIC PANE Rashi 11-09-2023 Albumin [Mass/Vol] 4.5 g/dL Normal 3.2-5.3 [facility] Comment on above: Performed By: #### C BCA, CMP #### [facility] ([id number]) [address] [place] [address] ALP [Catalytic activity/Vol] 48 U/L Normal 39-130 [facility] Comment on above: Performed By: #### C BCA, CMP #### [facility] ([id number]) [address] [place] [address] ALT [Catalytic activity/Vol] 14 U/L Normal 0-31 [facility] Comment on above: Performed By: #### C BCA, CMP #### [facility] ([id number]) [address] [place] [address] Anion gap [Moles/Vol] 9 mmol/L Normal 5-15 [facility] Comment on above: Performed By: #### C BCA, CMP #### [facility] ([id number]) [address] [place] [address] AST [Catalytic activity/Vol] 20 U/L Normal 0-41 [facility] Comment on above: Performed By: #### C BCA, CMP #### [facility] ([id number]) [address] [place] [address] Bilirubin [Mass/Vol] 0.5 mg/dL Normal 0.3-1.2 [facility] Comment on above: Performed By: #### C BCA, CMP #### [facility] ([id number]) [address] [place] [address] Calcium [Mass/Vol] 9.2 mg/dL Normal 8.5-10.5 [facility] Comment on above: Performed By: #### C BCA, CMP #### [facility] ([id number]) [address] [place] [address] Chloride [Moles/Vol] 106 mmol/L Normal 98-109 [facility] Comment on above: Performed By: #### C BCA, CMP #### [facility] ([id number]) [address] [place] [address] CO2 [Moles/Vol] 28 mmol/L Normal 22-32 [facility] Comment on above: Performed By: #### C BCA, CMP #### [facility] ([id number]) [address] [place] [address] Creatinine [Mass/Vol] 1.17 mg/dL High 0.40-1.00 [facility] Comment on above: Result Comment: METH OD TRACEABLE TO IDMS STANDARD Performed By: #### C BCA, CMP #### [facility] ([id number]) [address] [place] [address] GFR/1.73 sq M.predicted among non-blacks MDRD (S/P/Bld) [Vol rate/Area] 50 mL/min/{1.73_m2} Low >59 [facility] Comment on above: Result Comment: Reported eGFR is based on the CKD-EPI 1 equation that does not use a race coefficient. Performed By: #### C BCA, CMP #### [facility] ([id number]) [address], [address] [place] [address] Glucose [Mass/Vol] 110 mg/dL High 65-99 [facility] Comment on above: Performed By: #### C BCA, CMP #### [facility] ([id number]) [address], [address] [place] [address] Potassium [Moles/Vol] 4.1 mmol/L Normal 3.5-5.0 [facility] Comment on above: Performed By: #### C BCA, CMP #### [facility] ([id number]) [address], [address] [place] [address] Protein [Mass/Vol] 7.2 g/dL Normal 6.0-8.0 [facility] Comment on above: Performed By: #### C BCA, CMP #### [facility] ([id number]) [address], [address] [place] [address] Sodium [Moles/Vol] 143 mmol/L Normal 134-146 [facility] Comment on above: Performed By: #### C BCA, CMP #### [facility] ([id number]) [address], [address] [place] [address] Urea nitrogen [Mass/Vol] 18 mg/dL Normal 5-27 [facility] Comment on above: Performed By: #### C BCA, CMP #### [facility] ([id number]) [address], [address] [place] [address] XR CHEST 2 VWSon 11-09-2023 XR CHEST 2 VWS XR CHEST 2 VWS History: Preop testing Exam/Technique: PA and lateral chest Comparison: None Findings: There is no evidence of active pulmonary or pleural disease. Cardiac and mediastinal contours are within normal limits. IMPRESSION: No evidence of active pulmonary disease demonstrated. Finalized by Lewis Lyn MD on 11/09/2023 10:52 AM Normal [facility] Consultation Noteon 10-25-19 Consultation Note [id number]#1.0 0TIFF [facility] Consultation Noteon 10-03-19 Consultation Note [id number]#1.0 0TIFF [facility] RAD - MISCon 10-03-2023 RAD - MISC [id number]#1.0 0TIFF [facility] Consultation Noteon 09-29-19 Consultation Note [id number]#1.0 0TIFF [facility] Consultation Noteon 09-21-19 Consultation Note [id number]#1.0 0TIFF [facility] Dexa Scanson 09-21-2023 Dexa Scans [id number]#1.0 0TIFF [facility] Consultation Noteon 09-12-19 Consultation Note [id number]#1.00 TIFF Normal [facility] Patient Logson 09-02-2023 Patient Logs [id number]#1.00 TIFF Normal [facility] Ambulatory Visit Summaryon 0 09-01-2023 [...] AM EST With: Anamaria Chinchilla MD Where: [facility] [place] Normal [address] [place] [address]- \.br\ Medications\.br\ What How Much When Instructions\.br\ [...] choosing us for your care.\.br\ \.br\ [facility] Consultation Noteon 09-01-19 Consultation Note [id number]#1.0 0TIFF Normal [facility] Office/Clini c Noteon 09-01-2023 [...] 96.3 fL (05/11/23) Chloride: 108 mmol/L (05/11/23) Power Absolute: 0.4 E9/L (05/11/23) CO2: 27 mmol/L (05/11/23) Power Auto: 7.8 % (05/11/23) Creatinine: 1.3 mg/dL [...] Ag (more content not included)... [facility] Comment on above: Result Comment: Elec tronically Signed By: VIPUL OBANDO CNP\juaquin\Date and Time Signed: 09/01/23 13:24 EST Patient Educationon 01-11-20 24 Patient Education Nutrition DASH Eating Plan [...] Spices. Seasoni (more content not included)... [facility] Consultation Noteon 08-24-19 24 Consultation Note [id number]#1.0 0TIFF [facility] RAD - CT Reporton 08-24-2023 RAD - CT Report [id number]#1.0 0TIFF [facility] Operative Reporton Operative Report [id number]#1.0 0TIFF [facility] Patient Correspondenceon Patient Correspondence [id number]#1.0 0TIFF [facility] Provider Letteron 08-12-2023 Provider Letter [address] [place] [id number] August 12, 2023 ISAURA HAYDEN [address] [place] [id number] : [address] Das, The above patient has been evaluated at your request for preoperative clearance. After assessment of available pertinent labs and diagnostic tests, I feel this patient is medically optimized for surgery. Final discretion of whether the patient is cleared for surgery remains up to the surgeon/anesthesiologi st. Thank you, DOTTY Vásquez-Tobi [facility] Ambulatory Visit Summaryon 1 10-12-2022 [...] AM EST With: Anamaria Chinchilla MD Where: [facility] Normal [address] [place] [address]- \.br\ Medications\.br\ What How Much When Instructions\.br\ [...] choosing us for your care.\.br\ \.br\ [facility]/Clini c Noteon 08-11-2023 [...] pneumococcal 23-valent vaccine 06/25/2008 Recorded Normal [facility] Comment on above: Result Comment: Elec [...] PM) Normal Negative [facility] UA Auto SS Pitman.plasma/Lith ium.RBC (Bld) [Mass ratio] 0-3 /HPF Normal [...] [facility] UA Auto SS Urobilinogen Qn (U) 0.5249556 {Leon'U}/dL Normal 0.0 - 1.0 EU/dL [facility] UA Auto SS WBC Auto Ql (U) 1+ *ABN* (05/11/23 12:05 PM) Invalid Interpretation Code Negative [facility] UA Auto SS WBC LM.HPF (Urine sed) [#/Area] 0-5 /HPF Normal 0-5/HPF [facility] UA Auto SS CULTURE URINEon 07-06-2022 CULTURE URINE Culture Observations : LIGHT GROWTH OF MIXED GENITAL NAN. NO POTENTIAL PATHOGENS SEEN. Normal [facility] Comment on above: Performed By: #### U RCX #### [facility] [address] [place] [address] Dr. Melchor Brock UA (CLEAN/CATCH) MICROSCOPIC IF INDICATEon 07-06-2022 Bilirubin Ql (U) Negative Normal NEGATIVE [facility] Comment on above: Performed By: #### U MICRO, UARMICR #### [facility] [address] [place] [address] Dr. Melchor Brock Clarity (U) CLEAR Normal CLEAR [facility] Comment on above: Performed By: #### U MICRO, UARMICR #### [facility] [address] [place] [address] Dr. Melchor Brock Color (U) LT. YELLOW Normal YELLOW [facility] Comment on above: Performed By: #### U MICRO, UARMICR #### [facility] [address] [place] [address] Dr. Melchor Brock Glucose Ql (U) Negative Normal NEGATIVE [facility] Comment on above: Performed By: #### U MICRO, UARMICR #### [facility] [address] [place] [address] Dr. Melchor Brock Hemoglobin Ql (U) TRACE-INTACT Abnormal NEGATIVE [facility] Comment on above: Performed By: #### U MICRO, UARMICR #### [facility] [address] [place] [address] Dr. Melchor Brock Ketones Ql (U) Negative Normal NEGATIVE [facility] Comment on above: Performed By: #### U MICRO, UARMICR #### [facility] [address] [place] [address] Dr. Melchor Brock LEUKOCYTES TRACE Abnormal NEGATIVE [facility] Comment on above: Performed By: #### U MICRO, UARMICR #### [facility] [address] [place] [address] Dr. Melchor Brock Nitrite Ql (U) Negative Normal NEGATIVE [facility] Comment on above: Performed By: #### U MICRO, UARMICR #### [facility] [address] [place] [address] Dr. Melchor Brock pH (U) 6.0 [pH] Normal 5-9 [facility] Comment on above: Performed By: #### U MICRO, UARMICR #### [facility] [address] [address] [address] Melchor Brock SPEC GRAVITY 1.020 Normal 1.005-<=1.025 [facility] Comment on above: Performed By: #### U MICRO, UARMICR #### [facility] [address] [address] [address] Melchor Brock UA PROTEIN Negative Normal NEGATIVE/ TRACE [facility] Comment on above: Performed By: #### U MICRO, UARMICR #### [facility] [address] [address] [address] Melchor Brock UR MICRO IND INDICATED Normal [facility] Comment on above: Performed By: #### U MICRO, UARMICR #### [facility] [address] [place] [address] Dr. Melchor Brock Urobilinogen Qn (U) 0.2 {Leon'U}/dL Normal 0.2 - 1. 0 [facility] Comment on above: Performed By: #### U MICRO, UARMICR #### [facility] [address] [place] [address] Dr. Melchor Brock URINE MICROSCOPIC ONLYon BACTERIA NONE SEEN Normal NONE SEEN [facility] Comment on above: Performed By: #### G SHON, LIPID #### [facility] [address] [place] [address] Dr. Melchor Brock Bacteria identified Cx Nom (U) CX ALREADY ORDERED Normal [facility] Comment on above: Performed By: #### G SHON, LIPID #### [facility] [address] [place] [address] Dr. Melchor Brock CAST NONE SEEN Normal NONE SEEN [facility] Comment on above: Performed By: #### G SHON, LIPID #### [facility] [address] [place] [address] Dr. Melchor Brock Crystals LM Nom (Urine sed) NONE SEEN Normal NONE SEEN [facility] Comment on above: Performed By: #### G SHON, LIPID #### [facility] [address] [address] [address] Melchor Brock Epithelial cells LM Ql (Urine sed) RARE Normal NONE SEEN /RARE [facility] Comment on above: Performed By: #### G SHON, LIPID #### [facility] [address] [address] [address] Melchor Brock MUCOUS NONE SEEN Normal NONE SEEN [facility] Comment on above: Performed By: #### G SHON, LIPID #### [facility] [address] [address] [address] Melchor Brock RBC 0-2 Normal 0-2 [facility] Comment on above: Performed By: #### G SHON, LIPID #### [facility] [address] [address] [address] Melchor Brock WBC 0-2 Abnormal NONE SEEN [facility] Comment on above: Performed By: #### G SHON, LIPID #### [facility] [address] [address] [address] Melchor Brock MG MAMM SCREEN 3D SARAHI CADon 03-15-2022 MG MAMM SCREEN 3D SARAHI CAD Patient: ISAURA HAYDEN Exam Date: 03/15/2022 : 1950 Gender:F Ordering : DR FARA BOOKER . Admission #: [id number] Family : Order #: [id number] CLICK HERE TO VIEW EXAM RADIOLOGY REPORT [...] lung cancer at age 72. LOCATION: [facility] BREAST COMPOSITION: Heterogeneously dense,which may [...] Cárdenas M.D. on 03/15/2022 at 11:41 Normal [facility] GLUCOSE BLOODon 02-09-2022 Glucose [Mass/Vol] 99 mg/dL Normal 74-106 [facility] Comment on above: Performed By: #### G SHON, LIPID #### [facility] [address] [address] [address] Melchor Brock LIPID PROFILEon 02-09-2022 CHOL-HDL RATIO NORM SEE BELOW Normal [facility] Comment on above: Result Comment: 3.3 - 4.4 LOW RISK 4.4 - 7.1 AVERAGE RISK 7.1 - 11.0 MODERATE RISK >11.0 HIGH RISK Performed By: #### G SHON, LIPID #### [facility] [address] [address] [address] Melchor Brock Cholesterol [Mass/Vol] 202 mg/dL Critically high <=200 [facility] Comment on above: Performed By: #### G SHON, LIPID #### [facility] [address] [address] [address] Melchor Brock Cholesterol in HDL [Mass/Vol] 56 mg/dL Normal 40-60 [facility] Comment on above: Performed By: #### G SHON, LIPID #### [facility] [address] [address] [address] Melchor Brock Cholesterol in LDL [Mass/Vol] 112.6 mg/dL Normal [facility] Comment on above: Performed By: #### G SHON, LIPID #### [facility] [address] [address] [address] Melchor Brock Cholesterol.total/C holesterol in HDL [Mass ratio] 3.6 {ratio} Normal [facility] Comment on above: Performed By: #### G SHON, LIPID #### [facility] [address] [address] [address] Melchor Brock HDL NORMAL > or = 60 mg/dl - LO W CARDIOVASCULAR RISK <40 mg/dl - HIGH CARDIOVASCULAR RISK Normal [facility] Comment on above: Performed By: #### G SHON, LIPID #### [facility] [address] [place] [address] Dr. Melchor Brock LDL CALC NORMAL SEE BELOW Normal [facility] Comment on above: Result Comment: <100 mg/dl OPTIMAL 100 - 129 mg/dl NEAR OR ABOVE OPTIMAL 130 - 159 mg/dl BORDERLINE HIGH 160 - 189 mg/dl HIGH >190 mg/dl VERY HIGH Performed By: #### G SHON, LIPID #### [facility] [address] [address] [address] Melchor Brock Triglyceride [Mass/Vol] 167 mg/dL Critically high <=150 [facility] Comment on above: Performed By: #### G SHON, LIPID #### [facility] [address] [place] [address] Dr. Melchor Brock VLDL CALC 33.4 mg/dL Normal [facility] Comment on above: Performed By: #### G SHON, LIPID #### [facility] [address] [place] [address] Dr. Melchor Brock LIPID PROFILEon 11-05-2021 CHOL-HDL RATIO NORM SEE BELOW Normal [facility] Comment on above: Result Comment: 3.3 - 4.4 LOW RISK 4.4 - 7.1 AVERAGE RISK 7.1 - 11.0 MODERATE RISK >11.0 HIGH RISK Performed By: #### L IPID, BMP #### [facility] [address] [place] [address] Dr. Melchor Brock Cholesterol [Mass/Vol] 244 mg/dL Critically high <=200 [facility] Comment on above: Performed By: #### L IPID, BMP #### [facility] [address] [address] [address] Melchor Brock Cholesterol in HDL [Mass/Vol] 60 mg/dL Normal 40-60 [facility] Comment on above: Performed By: #### L IPID, BMP #### [facility] [address] [place] [address] Dr. Melchor Brock Cholesterol in LDL [Mass/Vol] 158.4 mg/dL Normal [facility] Comment on above: Performed By: #### L IPID, BMP #### [facility] [address] [address] [address] Melchor Brock Cholesterol.total/C holesterol in HDL [Mass ratio] 4.1 {ratio} Normal [facility] Comment on above: Performed By: #### L IPID, BMP #### [facility] [address] [place] [address] Dr. Melchor Brock HDL NORMAL > or = 60 mg/dl - LO W CARDIOVASCULAR RISK <40 mg/dl - HIGH CARDIOVASCULAR RISK Normal [facility] Comment on above: Performed By: #### L IPID, BMP #### [facility] [address] [place] [address] Dr. Melchor Brock LDL CALC NORMAL SEE BELOW Normal [facility] Comment on above: Result Comment: <100 mg/dl OPTIMAL 100 - 129 mg/dl NEAR OR ABOVE OPTIMAL 130 - 159 mg/dl BORDERLINE HIGH 160 - 189 mg/dl HIGH >190 mg/dl VERY HIGH Performed By: #### L IPID, BMP #### [facility] [address] [place] [address] Dr. Melchor Brock Triglyceride [Mass/Vol] 128 mg/dL Normal <=150 [facility] Comment on above: Performed By: #### L IPID, BMP #### [facility] [address] [place] [address] Dr. Melchor Brock VLDL CALC 25.6 mg/dL Normal [facility] Comment on above: Performed By: #### L IPID, BMP #### [facility] [address] [place] [address] Dr. Melchor Brock PROF CHEM 8 (BAS METB)on Anion gap [Moles/Vol] 10.7 mmol/L Normal [facility] Comment on above: Performed By: #### L IPID, BMP #### [facility] [address] [place] [address] Dr. Melchor Brock Calcium [Mass/Vol] 7.8 mg/dL Critically low 8.4-10.2 [facility] Comment on above: Performed By: #### L IPID, BMP #### [facility] [address] [address] [address] Melchor Brock Chloride [Moles/Vol] 103 mmol/L Normal 98-107 [facility] Comment on above: Performed By: #### L IPID, BMP #### [facility] [address] [address] [address] Melchor Brock CO2 [Moles/Vol] 28.4 mmol/L Normal 22.0-30.0 [facility] Comment on above: Performed By: #### L IPID, BMP #### [facility] [address] [address] [address] Melchor Brock Creatinine [Mass/Vol] 1.05 mg/dL Critically high 0.52-1.04 [facility] Comment on above: Performed By: #### L IPID, BMP #### [facility] [address] [place] [address] Dr. Melchor Brock EGFR-AF [place]ERRA LEONEAN >60 Normal >=60 [facility] Comment on above: Performed By: #### L IPID, BMP #### [facility] [address] [place] [address] Dr. Melchor Brock EGFR-NON AF [place] LEONEAN 52 mL/min/1.73m2 Critically low >=60 [facility] Comment on above: Performed By: #### L IPID, BMP #### [facility] [address] [address] [address] Melchor Brock Glucose [Mass/Vol] 98 mg/dL Normal 74-106 [facility] Comment on above: Performed By: #### L IPID, BMP #### [facility] [address] [address] [address] Melchor Brock Potassium [Moles/Vol] 4.1 mmol/L Normal 3.4-5.0 [facility] Comment on above: Performed By: #### L IPID, BMP #### [facility] [address] [address] [address] Melchor Brock Sodium [Moles/Vol] 138 mmol/L Normal 137-145 [facility] Comment on above: Performed By: #### L IPID, BMP #### [facility] [address] [place], [place] [address] Dr. Melchor Brock Urea nitrogen [Mass/Vol] 15.0 mg/dL Normal 7.0-17.0 [facility] Comment on above: Performed By: #### L IPID, BMP #### [facility] [address] [place], [place] [address] Dr. Melchor Brock Urea nitrogen/Creatinine [Mass ratio] 14.3 mg/mg Normal [facility] Comment on above: Performed By: #### L IPID, BMP #### [facility] [address] [place], [place] [address] Dr. Melchor Brock ECHOCARDIO M/2D COMPLETEon 0 10-05-2021 ECHOCARDIO M/2D COMPLETE Patient: ISAURA HAYDEN Exam Date: 10/05/2021 : 1950 Gender:F Ordering : DR ANJELICA GAMBINO . Admission #: [id number] Family : Order #: [id number] CLICK HERE TO VIEW EXAM ECHOCARDIOGRAM REPORT [...] Area(A4C): 20.70 cm2 Left Atrium Systolic Volume(A2C): 91303 mm3 Left Atrium Systolic Volume(A4C): 73941 mm3 Mitral Valve MV E to A Ratio: 1.10 Deceleration [place]: 7410 mm/s2 Mitral Valve A-Wave Peak Velocity: [...] Coy Dove M.D. on 10/06/2021 at 08:32 [facility] XR DEXA BONE DENSITYon 09-18 XR [...] by:ARLEY Valenciaigned by:Lora Mondragon MD09/12/18Final result Normal [facility] DIGITAL SCREEN BILATERAL on 09-12-2017 [facility] DIGITAL SCREEN BILATERAL REPORT: [...] ACR BI-RADS: NEGATIVE)Interpreted by:ARLEY Valenciaigned by:Lora Mondragon MD1/22/18Final result Normal [facility] Vital Signs Date Time Vital Sign Value Performing Clinician Facility 02-27-2025 16:08-0400 Body height 162.56 cm [facility] 02-27-2025 16:08-0400 Body mass index (BMI) [Ratio] 28.84 kg/m2 [facility] 02-27-2025 16:08-0400 Body surface area Derived from formula 1.85 m2 [facility] 02-27-2025 16:08-0400 Body weight 76.2 kg [facility] 02-27-2025 16:08-0400 Diastolic blood pressure 62 mm[Hg] [facility] 02-27-2025 16:08-0400 Heart rate 68 /min [facility] 02-27-2025 16:08-0400 Systolic blood pressure 106 mm[Hg] [facility] 08-28-2024 09:11-0500 Body mass index (BMI) [Ratio] 29.01 kg/m2 Bentley Pippa DO Work Phone: [facility] 08-28-2024 09:11-0500 Body weight 76.66 kg Bentley Pippa DO Work Phone: [facility] 08-28-2024 09:11-0500 Diastolic blood pressure 70 mm[Hg] Bentley Pippa DO Work Phone: [facility] 08-28-2024 09:11-0500 Systolic blood pressure 120 mm[Hg] Bentley Pippa DO Work Phone: [facility] 12-27-2023 10:45-0400 Body height 162.6 cm [facility]igton [facility] 12-27-2023 10:45-0400 Body mass index (BMI) [Ratio] 28.65 kg/m2 [facility]ton [facility] 12-27-2023 10:45-0400 Body temperature 97.81 [degF] Mary Pennington PA Work Phone: [facility] [employer] 12-27-2023 10:45-0400 Body weight 75.75 kg Mary Pennington [facility] 12-27-2023 10:45-0400 Diastolic blood pressure 71 mm[Hg] Mary Pennington PA Work Phone: [facility] [employer] 12-27-2023 10:45-0400 Heart rate 57 /min Mary Pennington [facility] 12-27-2023 10:45-0400 Respiratory rate 16 /min Mary Pennington [facility] 12-27-2023 10:45-0400 SaO2% (BldA) [Mass fraction] 99 % Mary Pnenington PA [facility] 12-27-2023 10:45-0400 Systolic blood pressure 148 mm[Hg] [facility] 11-29-2023 10:41-0400 Body height 162.6 cm Mary Pennington [facility] 11-29-2023 10:41-0400 Body mass index (BMI) [Ratio] 28.48 kg/m2 Mary Pennington PA [facility] 11-29-2023 10:41-0400 Body temperature 97.81 [degF] Mary Pennington [facility] 11-29-2023 10:41-0400 Body weight 75.3 kg Mary Pennington PA Work Phone: [facility] [facility] 11-29-2023 10:41-0400 Diastolic blood pressure 71 mm[Hg] Mary Sigalane PA Work Phone: [facility] 11-29-2023 10:41-0400 Heart rate 57 /min Mary Sigalane PA Work Phone: [facility] [facility] 11-29-2023 10:41-0400 Respiratory rate 16 /min Mary Sigalane PA Work Phone: [facility] [facility] 11-29-2023 10:41-0400 SaO2% (BldA) [Mass fraction] 100 % Mary Sigalane PA Work Phone: [facility] [facility] 11-29-2023 10:41-0400 Systolic blood pressure 142 mm[Hg] Mary Sigalane PA Work Phone: [facility] 11-07-2023 10:32-0400 Body height 162.6 cm Metro 2 [facility] 11-07-2023 10:32-0400 Body mass index (BMI) [Ratio] 28.15 kg/m2 Metro 2 [facility] 11-07-2023 10:32-0400 Body weight 74.39 kg Metro 2 [facility] 10-26-2023 14:38-0500 Body temperature 98.29 [degF] Nabil Lord MD Work Phone: [facility] 10-26-2023 14:38-0500 Diastolic blood pressure 90 mm[Hg] Nabil Lord MD Work Phone: [facility] 10-26-2023 14:38-0500 Heart rate 67 /min Nabil Lord MD Work Phone: [facility] 10-26-2023 14:38-0500 SaO2% (BldA) [Mass fraction] 98 % Nabil Lord MD Work Phone: [facility] 10-26-2023 14:38-0500 Systolic blood pressure 158 mm[Hg] Nabil Lord MD Work Phone: [facility] 10-26-2023 14:35-0500 Body mass index (BMI) [Ratio] 29.18 kg/m2 Nabil Lord MD Work Phone: [facility] 10-26-2023 14:35-0500 Body weight 77.11 kg Nabil Lord MD Work Phone: [facility] Encounters Encounter Date Encounter Type Care Provider Facility Start: 08-01-2025 ambulatory Anamaria Chinchilla Facility :[facility] [place] Start: 02-27-2025 Split vc Kaitlin Reza rne Other [facility] Start: 01-28-2025 End: 01-28-2025 ambulatory Anamaria Chinchilla Facility:[facility] [place] Start: 10-19-2024 End: 10-19-2024 Lab Drop off Violet L Leonidas [facility] Start: 10-19-2024 End: 10-19-2024 ambulatory Violet L Leonidas Facility[facility] Start: 10-05-2024 End: 10-05-2024 Clinisync Result Encounter Bentley Pippa DO Work Phone: [facility] External [facility] Unsolicited Start: 10-05-2024 End: 10-05-2024 Clinisync Result Encounter Bentley Pippa DO Work Phone: [facility] External [facility] Unsolicited Start: 09-17-2024 End: 09-17-2024 ambulatory Violet L Leonidas Facility:[facility] [place] Start: 09-11-2024 End: 09-11-2024 ambulatory Kushal Keith Facility:[facility] Start: 09-10-2024 End: 09-10-2024 ambulatory Anamaria Chinchilla Facility:[facility] [place] Start: 08-28-2024 End: 08-28-2024 Bamboo flowsheet Bentley [...] Start: 08-27-2024 End: 08-27-2024 ambulatory [facility]amaria Chinchilla [facility] Start: 08-09-2024 End: 08-09-2024 Lab Drop off Anamaria Chinchilla [facility] Start: 08-09-2024 End: 08-09-2024 ambulatory Anamaria Chinchilla Facility:[facility] Start: 07-30-2024 End: 07-30-2024 ambulatory MD Anamaria Chinchilla Facility:[facility] [place] Start: 07-30-2024 End: 07-30-2024 ambulatory MD Anamaria Cihnchilla Facility:[facility] [place] Start: 07-13-2024 End: 07-13-2024 ambulatory VIPUL OBANDO Facility:[facility] [place] Start: 05-07-2024 End: 05-07-2024 Lab Drop off Anamaria Chinchilla [facility] Start: 05-07-2024 End: 05-07-2024 ambulatory MD Anamaria Chinchilla Facility:[facility] Start: 12-27-2023 End: 12-27-2023 ambulatory MARY PENNINGTON [facility] Start: 12-27-2023 End: 12-27-2023 Postop follow up visit related to original px Mary GOMEZ Work Phone: [facility] Comment on above: Encounter for postop erative care (Primary Dx) Start: 11-29-2023 End: 11-29-2023 ambulatory MARY PENNINGTON [facility] Start: 11-29-2023 End: 11-29-2023 Postop follow up visit related to original px Mary Pennington JASON Work Phone: [facility] Rosado [facility] - Medical Oncology Comment on above: Encounter for postop erative care (Primary Dx) Start: 11-14-2023 End: 11-14-2023 Evaluation and management of inpatient [facility] Start: 11-14-2023 End: 11-14-2023 Evaluation and management of inpatient [facility] Start: 11-09-2023 Encounter for other preprocedural examination [facility] Start: 11-09-2023 End: 11-10-2023 ambulatory [facility] Start: 11-07-2023 End: 11-07-2023 Evaluation and management of inpatient [facility] Start: 11-07-2023 End: 11-07-2023 [facility] Phone Call Provider 2 [facility] On [facility] Start: 10-28-2023 Patient encounter status Nabil Lord MD Work Phone: [facility] Start: 10-28-2023 Telephone encounter Nabil andersen MD Work Phone: [facility] Start: 10-26-2023 End: 10-26-2023 ambulatory NABIL Britton CAROLYN [facility] Start: 10-26-2023 End: 10-26-2023 Office outpatient new 60 minutes Nabil Lord MD Work Phone: [facility] Comment on above: Endometrial thickeni ng on ultrasound (Primary Dx); Postmenopausal bleeding Start: 10-19-2023 ambulatory [facility] Start: 10-19-2023 Telephone encounter Linette Ga RN [facility] Start: 10-11-2023 End: 10-11-2023 ambulatory BENTLEY PIPPA Not Available Start: 09-01-2023 End: 09-01-2023 ambulatory VIPUL OBANDO Facility:[facility] [place] Start: 08-11-2023 End: 08-11-2023 ambulatory MD Anamaria Chinchilla Facility:[facility] Start: 05-11-2023 End: 05-11-2023 Lab Drop off Violet Lauren [facility] Start: 08-03-2022 End: 08-04-[address] [...] Start: 09-12-2017 End: 09-13-2017 Ambulatory [facility] Procedures Date Procedure Procedure Detail Performing Clinician Start: 02-27-2025 Nerve conduction jeanne dies 7-8 studies Kaitlin Santiago Start: 10-05-2024 [facility] Bentley Fazi o DO Work Phone: Start: 11-29-2023 Follow-up visit Follow-up DEMETRIS PENNINGTON Start: 08-22-2022 Jyotsna mcconnell Start: 09-12-2017 Screening mammograph y bi 2-view breast inc cad FARA BOOKER Start: 09-12-2017 Dxa bone density jeanne dy 1/> sites axial skel FARA BOOKER Cholecystectomy Violet Lauren Comment on above: bile duct surgery Colonoscopy Violet Lauren Comment on above: 2013 normal Laser device (physic al object) Violet Lauren Comment on above: eye Plan of Treatment Date Care Activity Detail Author Start: 09-03-2025 End: 09-03-2025 Patient encounter procedure 09/03/2025 10:00 AM EST Office Visit [facility] [address] [place] [address] Bentley Das, DO [address], [place] [address] [facility] Start: 12-26-2024 Adult BMI Screening Adult BMI Screen ing [facility] Start: 11-28-2024 Adult BMI Screening Adult BMI Screen ing [facility] Start: 11-13-2024 Tobacco Screening Tobacco Screening [facility] Start: 10-25-2024 Adult BMI Screening Adult BMI Screen ing [facility] Start: 10-25-2024 Tobacco Screening Tobacco Screening [facility] Start: 08-28-2024 End: 08-28-2025 DXA Skeletal system Views for bone density DEXA bone density Imaging Routine Postmenopausal state Expected: 08/28/2024 (Approximate), Expires: 08/28/2025 [facility] Comment on above: Expected: 08/28/2024 (Approximate), Expires: 08/28/2025 Start: 08-28-2024 End: 10-26-2025 MG Breast - bilateral Screening Bilateral screening mammogram Imaging Routine Breast cancer screening by mammogram Expected: 08/28/2024, Expires: 10/26/2025 [facility] Work Phone: Comment on above: Expected: 08/28/2024 , Expires: 10/26/2025 Start: 08-28-2024 End: 08-28-2024 Patient encounter procedure 08/28/2024 9:00 AM EST Office Visit [facility] [address] [place] [address] Bentley Das, [address] [place] [address] Arrived [facility] Comment on above: Arrived Start: 04-22-2024 Influenza vaccination Influenza Vacc ine [facility] Start: 12-27-2023 End: 12-27-2023 Patient encounter procedure 12/27/2023 11:00 AM EDT Office Visit [facility] L [facility] - Medical Oncology [address] [place] [address] Mary Pennington PA [address] [place] [address] Lurdes Rosado [facility] Start: 11-29-2023 End: 11-29-2023 Patient encounter procedure 11/29/2023 10:30 AM EDT Office Visit [facility] L [facility] [address] [place] [address] Mary Pennington, JASON [address] [place], [place] [id number] [facility] Start: 11-14-2023 End: 11-14-2023 Admission to same day surgery center 11/14/2023 11:00 AM EDT - 11/14/2023 1:[address] [facility] Division of [facility] - Surgery [address] [place] [address] Nabil Lord MD [address] [facility] [place] [address] DAVINCI HYSTERECTOMY SALPINGO OOPHORECTOMY(WITH FROZEN SECTION AND POSSIBLE STAGING) [facility] - Surgery Comment on above: DAVINCI HYSTERECTOMY SALPINGO OOPHORECTOMY(WITH FROZEN SECTION AND POSSIBLE STAGING) Start: 11-14-2023 End: 03-25-2024 DAVINCI HYSTERECTOMY SALPINGO OOPHORECTOMY DAVINCI HYSTERECTOMY SALPINGO OOPHORECTOMY THICKENED ENDOMETRUM/POST MENOPAUSAL BLEEDING/CERVICAL STENOSIS 11/14/2023 11:00 AM EDT [facility] Start: 11-14-2023 Subsequent hospital visit by physician 11/14/2023 11:00 AM EDT Hospital Encounter [facility] - Surgery [address] [place] [address] [place] [address] [place] [address], [address] [place] [address] [facility] - Surgery Start: 11-07-2023 End: 11-07-2023 Admission to establishment 11/07/2023 10:30 AM EDT Support Visit [facility] Pre[facility]Ad[facility] On [address] [address] [facility] On [facility] Start: 10-28-2023 End: 10-27-2024 XR Chest PA and Lateral X-ray chest 2 views Imaging Routine Preop testing Expected: 10/28/2023, Expires: 10/27/2024 [facility] Comment on above: Expected: 10/28/2023 , Expires: 10/27/2024 Start: 10-26-2023 End: 10-26-2023 Patient encounter procedure 10/26/2023 3:00 PM EST Office Visit [facility] [address] [place], [place] [address]TC TOMASZ [address] [place] [address] [place] [address] [place] [address], [address] [place] [address] [facility] Start: 04-22-2023 Influenza vaccination Influenza Vacc ine [facility] Start: 08-04-2022 Adult BMI Screening Adult BMI Screen ing [facility] Start: 2017 Fall Risk Screening Fall Risk Screen ing [facility] Start: 2002 Administration of varicella zoster vaccine Zoster (Shingles) [facility] Start: 1971 DTaP,Tdap and Td Vaccines (1 - Tdap) DTaP,Tdap and Td Vaccines (1 - Tdap) [facility] Start: 1970 Adult BMI Follow Up Plan Adult BMI F ollow Up Plan [facility] Start: 1964 Depression Screening Depression Scre [facility]ing [facility] Start: 1964 Tobacco Screening Tobacco Screening [facility] Start: 1952 Medicare Annual Well ness Visit Medicare Annual Wellness Visit [facility] End: 10-27-2024 CBC W Auto Differential panel - Blood CBC with auto diff Lab Routine Preop testing 1 Occurrences starting 10/28/2023 until 10/27/2024 [employer] Work Phone: Comment on above: 1 Occurrences starti ng 10/28/2023 until 10/27/2024 End: 10-27-2024 Comprehensive metabolic 2000 panel - Serum or Plasma Comprehensive metabolic panel Lab Routine Preop testing 1 Occurrences starting 10/28/2023 until 10/27/2024 [facility] Comment on above: 1 Occurrences starti ng 10/28/2023 until 10/27/2024 End: 10-27-2024 ECG 12 lead ECG 12 lead ECG Routine Preop testing 1 Occurrences starting 10/28/2023 until 10/27/2024 [facility] Comment on above: 1 Occurrences starti ng 10/28/2023 until 10/27/2024 Immunizations Immunization Date Immunization Notes Care Provider Jailyn martinez 07-24-2019 pneumococcal polysaccharide vaccine, 23 valent Anamaria Chinchilla [facility] 07-21-2018 pneumococcal conjuga te vaccine, 13 valent Anamaria Chinchilla [facility] 11-08-2016 hepatitis A vaccine, adult dosage Anamaria Chinchilla [facility] 05-05-2016 hepatitis A vaccine, adult dosage Anamaria Chinchilla [facility] 07-12-2014 influenza virus vaccine, unspecified formulation Linette Ga RN [facility] 07-12-2014 influenza, injectabl e, quadrivalent, preservative free Bentley Pippa DO Work Phone: [facility] 06-05-2013 influenza virus vaccine, unspecified formulation Anamaria Chinchilla [facility] 06-05-2013 influenza, seasonal, injectable Bentley Pippa DO Work Phone: [facility] 05-18-2012 influenza virus vaccine, unspecified formulation Anamaria Chinchilla [facility] 05-18-2012 influenza, seasonal, injectable Bentley Pippa DO Work Phone: [facility] 05-17-2011 influenza virus vaccine, unspecified formulation Anamaria Chinchilla [facility] 05-17-2011 influenza, seasonal, injectable Bentley Pippa DO Work Phone: [facility] 06-25-2008 pneumococcal polysaccharide vaccine, 23 valent Anamaria Chinchilla [facility] NEGATED: Highlighted row has not occurred!07-30-2024 influenza virus vaccine, unspecified formulation Anamaria Chinchilla [facility] NEGATED: Highlighted row has not occurred!05-30-2023 influenza virus vaccine, unspecified formulation Anamaria Chinchilla [facility] NEGATED: Highlighted row has not occurred!12-01-2022 SARS-CoV-2 mRNA (tozinameran 5y-11y) vaccine Violet Lauren [facility] Payers Date Payer Category Payer Medicare (Managed Care) KELLY SANDERS [id number] 2017 Medicare [id number] 2017 Unknown [id number] 2017 Unknown 2014 Medicare [id number] 1959 Unknown [id number] 1952 Unknown [id number] 2.16.840.1.364631.3.579.2. 593 1952 Unknown [id number] 2.16.840.1.118773.3.579.2. 593 1952 Unknown [id number] 2.16.840.1.821278.3.579.2. 593 1952 Unknown [id number] 2.16.840.1.151609.3.579.2. 593 1952 Unknown [id number] 2.16.840.1.097132.3.579.2. 593 1952 Unknown [id number] 2.16.840.1.300349.3.579.2. 593 1952 Unknown [id number] 2.16.840.1.542334.3.579.2. 593 1952 Unknown [id number] 2.16.840.1.411340.3.579.2. 593 1952 Unknown [id number] 2.16.840.1.842822.3.579.2. 1286 1952 Unknown [id number] 2.16.840.1.477369.3.579.2. 1286 1952 Unknown [id number] 2.16.840.1.536362.3.579.2. 1286 1952 Unknown [id number] 2.16.840.1.465991.3.579.2. 1286 1952 Unknown [id number] 2.16.840.1.651592.3.579.2. 1286 1952 Unknown [id number] 2.16.840.1.610554.3.579.2. 1286 1952 Unknown [id number] 2.16.840.1.567561.3.579.2. 1286 1952 Unknown [id number] 2.16.840.1.747966.3.579.2. 1286 1952 Unknown [id number] 2.16.840.1.196858.3.579.2. 1286 1952 Unknown [id number] 2.16.840.1.324788.3.579.2. 1286 1952 Unknown [id number] 2.16.840.1.536200.3.579.2. 1286 1952 Unknown [id number] 2.16.840.1.827262.3.579.2. 727 1952 Unknown [id number] 2.16.840.1.499728.3.579.2. 727 1952 Unknown [id number] 2.16.840.1.546092.3.579.2. 727 1952 Unknown [id number] 2.16.840.1.281335.3.579.2. 727 1952 Unknown [id number] 2.16.840.1.941028.3.579.2. 727 1952 Unknown [id number] 2.16.840.1.896561.3.579.2. 727 1952 Unknown [id number] 2.16.840.1.512238.3.579.2. 1259 1952 Unknown [id number] 2.16.840.1.463330.3.579.2. 1259 1952 Unknown [id number] 2.16.840.1.832800.3.579.2. 196 1952 Unknown [id number] 2.16.840.1.243277.3.579.2. 727 1952 Unknown [id number] 2.16.840.1.103263.3.579.2. 727 1952 Unknown [id number] 2.16.840.1.104324.3.579.2. 727 1952 Unknown [id number] 2.16.840.1.918995.3.579.2. 727 1952 Unknown [id number] 2.16.840.1.423369.3.579.2. 727 1952 Unknown [id number] 2.16.840.1.626710.3.579.2. 727 1952 Unknown [id number] 2.16.840.1.249035.3.579.2. 727 1952 Unknown [id number] 2.16.840.1.142343.3.579.2. 727 1952 Unknown [id number] 2.16.840.1.932496.3.579.2. 727 1952 Unknown [id number] 2.16.840.1.249593.3.579.2. 727 1952 Unknown [id number] 2.16.840.1.137533.3.579.2. 727 Social History Date Type Detail Facility Start: 05-11-2023 End: 09-10-2024 Tobacco smoking status Never smoked tobacco (finding) [facility] Comment on above: denies denies use. Tobacco smoking status [facility] Comment on above: denies denies use. Start: 10-02-2020 End: 10-11-2023 Sex Assigned At Female Nnamdi Dia [facility] Start: 10-11-2023 End: 11-14-2023 Alcoholic beverage intake Current drinker of alcohol (finding) [facility] Start: 10-02-2020 End: 10-11-2023 Alcoholic beverage intake [facility] Start: 1950 [facility] assigned at [facility] file [facility] History of tobacco use Passive smoker [employer] [facility] Start: 01-12-2018 End: 11-07-2023 Tobacco use and exposure Smokeless tobacco non-user [facility] Start: 1950 Sex assigned at Female P [employer] [facility] Start: 10-24-2023 Gender identity Identifies as female gender (finding) [facility] Start: *Tobacco [facility] Start: Alcohol [facility] Clinical Notes 08-05-2022 to 10-19-2024 Maryanne Mancia [...] Protein Urine Dipstick: Trace (10/19/24 10:07:00) Specific [place] Urine Dipstick: 1.020 (10/19/24 10:07:00) Urine Appearance Urine Dipstick: Slightly cloudy (10/19/24 10:07:00) Urine Color Urine Dipstick: Light yellow (10/19/24 10:07:00) Urobilinogen Urine Dipstick: Normal 0.2-1 EU/dl (10/19/24 10:07:00) pH Urine Dipstick: 7 (10/19/24 10:07:00) [facility] 08-28-2024 History of Presen t illness Narrative Reason for Appointment: Patient ID: Isaura Hayden is a 74 y.o. female who presents for Well Women Visit Patient presents today for Annual Exam. MEDICATIONS Current Outpatient Medications Medication Instructions alpha tocopherol (Vitamin E) 1000 units capsule See Instructions, take one daily 400mg, Refills(s) 0 amLODIPine (NORVASC) 5 mg, Daily aspirin 81 mg, Every other day Uomgpdd-Jlykupavoc-Mtlnfyu D (VITAMIN D3/CALCIUM/PHOSPHORUS PO) 1 each, Daily Denosumab (PROLIA SC) 1 Units, Every 6 months Durysta 10 mcg, As needed losartan (COZAAR) 100 mg, Daily Crisfield-3 500 mg rosuvastatin (CRESTOR) 20 mg ALLERGIES Allergies Allergen Reactions Hydromorphone Unknown PROBLEMS Active Ambulatory Problems Diagnosis Date Noted Age-related osteoporosis without current pathological fracture ([facility]) 01/31/2023 Arthritis 12/27/2016 Hypercholesterolemia ([facility]) 12/27/2016 Hypertension ([facility]) 01/31/2023 Iron deficiency anemia 12/27/2016 TIA (transient ischemic attack) 01/31/2023 History of colon polyps 02/01/2023 Hyperlipidemia (CMS/HCC) 02/23/2023 Resolved Ambulatory Problems Diagnosis Date Noted No Resolved Ambulatory Problems Past Medical History: Diagnosis Date Bronchitis Capillary angioma Cataracts, bilateral Chicken pox Family history of cancer Gallstone pancreatitis 2017 Glaucoma ([facility]) Hemorrhoids 2012 High blood pressure ([facility] High cholesterol ([facility]) Measles Mumps Osteoporosis ([facility]) Pneumonia Stress fracture Tonsillitis Tubular adenoma 2013 HISTORY PAST MEDICAL HISTORY SOCIAL HISTORY Past Medical History: Diagnosis Date Arthritis Bronchitis Capillary angioma Cataracts, bilateral Chicken pox Family history of cancer Gallstone pancreatitis 2017 Glaucoma ([facility]) Hemorrhoids 2013 High blood pressure ([facility]) High cholesterol (CMS/HCC) Measles Mumps Osteoporosis ([facility]) Pneumonia Stress fracture Tonsillitis Tubular adenoma 2013 [...] nursing note reviewed. Exam conducted with a supervisor hide house present. Vitals: Estimated body mass index is [...] Bentley Das DO documented in this encounter [facility] 08-09-2024 Note Nurse Consultation N [...] 05/17/2011 Recorded pneumococcal 23-valent vaccine 06/25/2008 Recorded [facility] 07-30-2024 Note Patient Education Cardiovascular [...] Keep all follow-up visits. Medicines ??? Take osvy-dxq-cqbvuwq and prescription medicines only as told by [...] Hypertension is a (more content not included)... [facility] 07-13-2024 Note Patient Education Infectious [...] these instructions at home: Medicines ??? Take oyoh-cwd-vavdroi and prescription medicines only as told by [...] and water are not available, use hand tribal delegate. ??? Do not touch your eyes, nose, [...] provider. Document Revised: 11/04/2021 Document Reviewed: 11/04/2021 [employer] Patient Education ? 2023 [employer]. [facility] 12-27-2023 History of Presen t [...] 01/12/2018 Performed by Nitesh Littlejohn MD at [facility] ROBOTIC ASSISTED HYSTERECTOMY, BILATERAL SALPINGO OOPHORECTOMY, PELVIC WASHINGS Bilateral 11/14/2023 Performed by Nabil Lord MD at [facility] HEMORROIDECTOMY 2000's SKIN BIOPSY Right [...] - Inability: Never True Received from [facility] Safety & Environment Review of Symptoms: Pertinent [...] *This note was completed using a voice medical records field technician system. Every effort was made to ensure accuracy. However, inadvertent computerized medical records field technician errors may be present. .Total time spent was 20 minutes: Preparing to see the patient (e.g., review of tests) Performing a medically appropriate examination and/or evaluation Counseling and educating the patient/family/caregiver Documenting clinical information in the electronic or other health record Care coordination (not separately reported) Mary Pennington PA-C, RD, IF JASON Zaragoza 12/27/23 1101 documented in this encounter [facility] 11-29-2023 History of Presen t illness Narrative [...] 01/12/2018 Performed by Nitesh Littlejohn MD at [facility] DAVINCI ROBOTIC ASSISTED HYSTERECTOMY, BILATERAL SALPINGO OOPHORECTOMY, PELVIC WASHINGS Bilateral 11/14/2023 Performed by Nabil Lord MD at [facility] HEMORROIDECTOMY 1999' SKIN BIOPSY Right [...] *This note was completed using a voice medical records field technician system. Every effort was made to ensure accuracy. However, inadvertent computerized medical records field technician errors may be present. .Total time spent was 20 minutes: Preparing to see the patient (e.g., review of tests) Performing a medically appropriate examination and/or evaluation Counseling and educating the patient/family/caregiver Documenting clinical information in the electronic or other health record Care coordination (not separately reported) Mary Pennington PA-C, RD, IF JASON Zaragoza 11/29/23 1101 documented in this encounter [facility] 11-07-2023 Instructions Formatting of th is note might be different from the original. Your surgery/procedure is scheduled at [facility] on 11/14/2023 at 11 am Arrival Time 9 am [facility] Address: [address] [place] [address], [address] [place] [address] in the Emergency Center Parking lot. Report to the front office attendant in the Emergency/Surgery Registration lobby of the hospital. Please call Pre-Admission Clinic at [phone] if you have any questions prior to surgery. For questions the morning of surgery, please call the Pre-op Department at [phone]. Notify your SURGEON if you develop any [...] would like to schedule therapy at a [facility] facility, please call [phone] ([phone]). Do not use lotions, creams, powders, perfume, make up, cologne or after-shaves day of surgery. Remove ALL jewelry including wedding rings, body piercings, hair extensions that contain metal, nail turkmen, make-up, and contact lens. You may brush your teeth the morning of surgery, but do not swallow the water. Wear your dentures and partial plates to the hospital (no adhesive). Shower the night the before. If applicable, use the CHG (chlorhexidine gluconate) soap or wipes. Please be advised, [facility] has transitioned to a cashless payment [...] RESPONSIBILITIES As a patient at [facility], you have the right to: Receive medical care and be informed of who is taking care of you Be treated with dignity and respect Have a family member/inbound sales representative of choice and your physician notified of your admission Receive information and actively participate in decisions about your care and treatment Refuse care, treatment and services Decide who may provide your support and speak for you Access yazidi and spiritual services Participate in ethical issues [...] of hospital charges and payment methods Patient/patient inbound sales representative responsibilities are to: Provide information about health status to facilitate care, treatment and services Follow the treatment, plan, keep appointments and speak up when you do not understand the plan Respect the rights of other patients and healthcare personnel Follow organizational rules and regulations that support quality care and a safe environment Fulfill financial obligations as promptly as possible [facility] 11-07-2023 Miscellaneous Notes Pt is going to [facility] on 11/09/2023 to havre EKG, CXR and labs. Your surgery/procedure is scheduled at [facility] on 11/14/2023 at 11 am Arrival Time 9 am [facility] Address: [address] [place] [address], [address] [place] [address] in the Emergency Center Parking lot. Report to the front office attendant in the Emergency/Surgery Registration lobby of the hospital. Please call Pre-Admission Clinic at [phone] if you have any questions prior to surgery. For questions the morning of surgery, please call the Pre-op Department at [phone]. Notify your SURGEON if you develop any [...] would like to schedule therapy at a [facility] facility, please call [phone] ([phone]). Do not use lotions, creams, powders, perfume, make up, cologne or after-shaves day of surgery. Remove ALL jewelry including wedding rings, body piercings, hair extensions that contain metal, nail turkmen, make-up, and contact lens. You may brush your teeth the morning of surgery, but do not swallow the water. Wear your dentures and partial plates to the hospital (no adhesive). Shower the night the before. If applicable, use the CHG (chlorhexidine gluconate) soap or wipes. Please be advised, [facility] has transitioned to a cashless payment [...] RESPONSIBILITIES As a patient at [facility], you have the right to: Receive medical care and be informed of who is taking care of you Be treated with dignity and respect Have a family member/inbound sales representative of choice and your physician notified of your admission Receive information and actively participate in decisions about your care and treatment Refuse care, treatment and services Decide who may provide your support and speak for you Access yazidi and spiritual services Participate in ethical issues [...] of hospital charges and payment methods Patient/patient inbound sales representative responsibilities are to: Provide information about [...] promptly as possible documented in this encounter [facility] 11-07-2023 Nurse Note Pt is going to [facility] on 11/09/2023 to havre EKG, CXR and labs. [facility] 10-28-2023 Miscellaneous Notes Spoke with Mee 3/Raisa and 38 to confirm surgery plan. Patient is scheduled at [facility] with Dr Lord on 11/14/23. She knows to arrive at 9:00a for 11:00a surgery. Patient knows to call [phone] to locate closest [facility] facility in order to complete PAT testing. She has phone call PAT scheduled for 11/07/23. She will follow up with Mary in [place] on 11/29/23 at 10:30a. documented in this encounter [facility] 10-28-2023 Telephone encounter Note Spoke with Mee 3/Raisa and 3/8 to confirm surgery plan. Patient is scheduled at [facility] with Dr Lord on 11/14/23. She knows to arrive at 9:00a for 11:00a surgery. Patient knows to call [phone] to locate closest [facility] facility in order to complete PAT testing. She has phone call PAT scheduled for 11/07/23. She will follow up with Mary in [place] on 11/29/23 at 10:30a. [facility] 10-26-2023 History of Presen t illness Narrative [...] personal or family history of GI or field rep malignancies. Oncology History No overview note Isaura [...] 01/12/2018 Performed by Nitesh Littlejohn MD at [facility] HEMORROIDECTOMY TONSILLECTOMY Past Medical History: Diagnosis [...] procedures Referring and communicating with other health animal care service worker (not separately reported) Documenting clinical information in the electronic or other health record Independently interpreting results (not separately reported) and communicating results to the patient/family/caregiver Nabil Lord MD documented in this encounter [facility]23 Miscellaneous Notes Left VM to schedule VACATION PLANNER appt with field rep onc, call back # provided. Requested images from pelvic US be pushed via PACS from [facility]. documented in this encounter [facility] 10-19-2023 Telephone encounter Note Left VM to schedule VACATION PLANNER appt with field rep onc, call back # provided. Requested images from pelvic US be pushed via PACS from [facility]. [facility] 08-11-2023 Note Procedures Choosing a Surgeon [...] a surgeon: ? Is certified by the [place] [employer]. To be board [...] going to your state medical board at www.fsmb.org/bvreyfk-v-bibkl-ny dical-board/ ? Has good ratings from other [...] you are considering is certified by the [place] [employer]. ? Meet with [...] provider. Document Revised: 10/19/2021 Document Reviewed: 10/19/2021 [employer] Patient Education ? 2022 [employer] 08-05-2022 Note PROCEDURE: XR FOOT [...] Appointments Appointment Date:05/30/2023 02:00:00 PM Scheduled Provider: Location:[facility] Appointment Type: Medicare Wellness Subsequent Appointment Date:05/30/2023 02:40:00 PM Scheduled Provider:Anamaria Chinchilla MD Location:[facility] Appointment Type: Open Diagnostic Tests PendingUrine Culture 05/11/23 [facility] Evaluation + Plan note Future Appointments Appointment Date:07/30/2024 10:30:00 AM Scheduled Provider:Anamaria Chinchilla MD Location:[facility] Appointment Type: Open Appointment Date:07/30/2024 11:00:00 AM Scheduled Provider: Location:[facility] Appointment Type: Medicare Wellness Subsequent Diagnostic Tests PendingUrine Culture 05/07/24 [facility] Evaluation + Plan note Future Appointments Appointment Date:01/28/2025 08:45:00 AM Scheduled Provider:Anamaria Chinchilla MD Location:[facility] Appointment Type:FM Open Appointment Date:08/01/2025 11:00:00 AM Scheduled Provider: [facility] App[facility] Type:FM Medicare Wellness Subsequent [facility] Evaluation + Plan note Future Appointments Appointment Date:01/28/2025 08:45:00 AM Scheduled Provider:Anamaria Chinchilla MD Location:[facility] Appointment Type: Open Appointment Date:08/01/2025 11:00:00 AM Scheduled Provider: Location:[facility] Appointment Type:FM Medicare Wellness Subsequent Diagnostic Tests PendingUrine Culture 10/19/24 [facility] Evaluation note Diagnosis Well woman exam with routine gynecological exam Routine gynecological examination Breast cancer screening by mammogram Postmenopausal state Asymptomatic postmenopausal status (age-related) (natural) documented in this encounter [facility]* Diagnosis Encounter for postoperative care- Primary [facility] Diagnosis Endometrial thickening on ultrasound- Primary Postmenopausal bleeding [facility] Diagnosis Preop testing- Primary Unspecified pre-operative examination [facility] Diagnosis Encounter for postoperative care- Primary documented in this encounter [facility] Narrative No data available for this section [facility] No data available for this section [facility]ructionsNot on filedocumented in this encounter [facility] filedocumented in this encounter [facility] on filedocumented in this encounter [facility]ructionsNot on filedocumented in this encounter [facility] on filedocumented in this encounter [facility] on filedocumented in this encounter [facility] No data available for this section [facility] Summary Purpose Family History No Family [...] Referral Specialty Diagnoses / Procedures Referred By Contcatrina t Referred To Contact Diagnoses Preop testing Procedures ECG 12 lead Nabil Lord MD [address] [place] [address], [place] [address] Referral ID Status Reason Start Date Expiration Date V isits Requested Visits Authorized [id number] Pending Review 10/28/2023 10/27/2024 1 1 Additional Source Comments INFORMATION SOURCE (unrecogn ized section and content) DATE CREATED AUTHOR 02/13/2018 [facility] DATE CREATED AUTHOR AUTHOR'S ORGANIZ ATION 08/12/2022 [facility] DATE CREATED AUTHOR AUTHOR'S ORGANIZ ATION 10/27/2023 [facility] DATE CREATED AUTHOR AUTHOR'S ORGANIZ ATION 10/28/2023 [facility] DATE CREATED AUTHOR AUTHOR'S ORGANIZ ATION 11/18/2023 [facility] DATE CREATED AUTHOR AUTHOR'S ORGANIZ ATION 12/28/2023 [facility] DATE CREATED AUTHOR AUTHOR'S ORGANIZ ATION 05/15/2024 [facility] DATE CREATED AUTHOR AUTHOR'S ORGANIZ ATION 08/10/2024 [facility] DATE CREATED AUTHOR AUTHOR'S ORGANIZ ATION 08/13/2024 [facility] DATE CREATED AUTHOR AUTHOR'S ORGANIZ ATION 09/03/2024 [facility] DATE CREATED AUTHOR AUTHOR'S ORGANIZ ATION 09/13/2024 [facility] DATE CREATED AUTHOR AUTHOR'S ORGANIZ ATION 10/21/2024 [facility] DATE CREATED AUTHOR AUTHOR'S ORGANIZ ATION 10/22/2024 [facility] DATE CREATED AUTHOR AUTHOR'S ORGANIZ ATION 01/28/2025 [facility] DATE CREATED AUTHOR AUTHOR'S ORGANIZ ATION 01/30/2025 [facility] Patient Care team informatio n (unrecognized section and content) Prison Psychiatrist Relationship Specialty Start Date End Date Anjelica Gambino MD [address] [facility] [place] [address] PCP - General Family Medicine 01/27/23 Prison Psychiatrist Relationship Specialty Start Date End Date Anjelica Gambino MD [address] [facility] [place] [address] PCP - General Family Medicine 01/27/23 Prison Psychiatrist Relationship Specialty Start Date End Date Anamaria Chinchilla MD [address] [facility] [place] [id number] PCP - General Family Medicine 11/07/23 Prison Psychiatrist Relationship Specialty Start Date End Date Anjelica Gambino MD [address] [facility] [place] [id number] PCP - General Family Medicine 12/24/16 Prison Psychiatrist Relationship Specialty Start Date End Date Anjelica Gambino MD [address] [place], [place] [id number] PCP - General Family Medicine 12/24/16 Prison Psychiatrist Relationship Specialty Start Date End Date Anjelica Gambino MD [address] [place] [address] PCP - General Family Medicine 12/24/16 Prison Psychiatrist Relationship Specialty Start Date End Date Anamaria Chinchilla MD [address] [place] [address] PCP - General Family Medicine 11/07/23 Reason [...] BE BASED ON THE PRIMARY CLINICAL RECORDS. [employer] provides no warranty or guarantee of the accuracy or completeness of information in this document.
[2025-04-12 10:01] LABS: Calcium 9.1 mg/dL (8.5-10.1); Estimated GFR (African America 50 (>=60 mL/min/1.73m^2); Estimated GFR (Non-African Ame 41 (>=60 mL/min/1.73m^2)
== END 2025-04-12 09:17 | disposition home or self-care (01) ==
PROVIDERS: PCP Nurse Practitioner; Visit Provider Obstetrics & Gynecology
DX: M81.0 Age-related osteoporosis without current pathological fracture (principal)
CPT/HCPCS: 36415; 82310; 82565

== ENCOUNTER 2025-04-15 07:46 | Outpatient (RCR) | payer MEDICARE, SELFPAY ==
[2025-04-15 10:00] VITALS: BP 149/76; PULSE 58; TEMP 36.4; O2SAT 98
[2025-04-15] MEDS: DENOSUMAB 60 MG/ML SYRINGE SUBQ (10:22)
== END 2025-04-21 23:59 | disposition home or self-care (01) ==
LOC: INF 07:46
PROVIDERS: PCP Nurse Practitioner; Visit Provider Obstetrics & Gynecology
DX: M81.0 Age-related osteoporosis without current pathological fracture (principal); Z12.31 Encounter for screening mammogram for malignant neoplasm of breast; Z80.3 Family history of malignant neoplasm of breast; Z80.1 Family history of malignant neoplasm of trachea, bronchus and lung; M79.671 Pain in right foot; S92.354D Nondisplaced fracture of fifth metatarsal bone, right foot, subsequent encounter for fracture with routine healing
CPT/HCPCS: 73630; 77063; 77067; 96372; J0897

== ENCOUNTER 2025-04-15 08:46 | Outpatient (OUT) | payer MEDICARE, SELFPAY ==
--- OUTSIDE RECORDS SUMMARY | 2024-09-13 07:06 | XMS_ITS ---
Author Organization The [facility] in [place] Address [address] [place] [address] Care Team Providers Care Polymer Engineer Name Role Phone Job Alvarado MD Primary Care Provider Graham Harris [facility] [phone] Encounters Encounter Location Date Provider Diagnosis [facility] (PODIATRY) [address] [place] [address] [place] [address] 09/13/2024 Graham Schmitz Plan Of Treatment No Information Progress Notes * Sara RIVERAOB:1949 (74 yo F)Acc No.[id number]:09/13/2024 Patient: Isaura CHANG :1950 A ge:74 Y S ex:Female Address:[facility] [address] [address] * true * Date: Generated for Óscari ng/Farandellg/eTransmitting on: 0 04/15/2025 08:51 AM EDT
--- OUTSIDE RECORDS SUMMARY | 2024-09-18 09:30 | XMS_ITS ---
Author Organization [facility] [place] Address [address] [place] [address] Care Team Providers Care Director Weights And Measures Name Role Phone Job Alvarado MD Primary Care Provider Graham Harris [phone] Allergies Allergen (clinical drug ingredient) Drug/Non Drug [...] 1 tablet Orally Once a day Active Ldhnqa-Evis-EQH-Ca-C-CtCl-S eCu - as directed Orally Active Norvasc 5 MG 1 tablet Orally Once a day Active Losartan Potassium 100 MG 1 tablet Orall y Once a day Active Temple 3 1000 MG 1 capsule Orally Onc [...] Encounters Encounter Location Date Provider Diagnosis [facility] (PODIATRY) [address] [place] [address] [place] [address] 09/18/2024 Graham Schmitz Stress fracture, right foot, [...] Notes * Sara RIVERAOB:1949 (74 yo F)Acc No.[id number]:09/18/2024 Follow Up Patient: Isaura CHANG Provider: Jimmy Schmitz DPM, MS :1950 A ge:74 Y S ex:Female Date:09/18/2024 Address:[address], [id number] Pcp:Job Alvarado MD Check In:01:20 PM ESTCheck [...] Release 1 tablet Orally Once a day Lskkyc-Vwjp-YFD-Sa-G-EgEi-SeCu - Tablet as directed Orally Losartan Potassium 100 MG Tablet 1 tablet Orally Once a day Norvasc(amLODIPine Besylate) 5 MG Tablet 1 tablet Orally Once a day Temple 3 1000 MG Capsule 1 capsule Orally [...] 1 tablet Orally Once a day Taking Menmvn-Wary-QQR-Ka-H-AxEg-SeCu - Tablet as directed Orally Taking Losartan Potassium 100 MG Tablet 1 tablet Orally Once a day Taking Norvasc(amLODIPine Besylate) 5 MG Tablet 1 tablet Orally Once a day Taking Temple 3 1000 MG Capsule 1 capsule Orally [...] 09/18/2024 Generated for Randal Sofia/Linh on: 0 04/15/2025 08:51 AM EDT History and Physical Notes * [...]
--- OUTSIDE RECORDS SUMMARY | 2024-10-19 05:00 | XMS_ITS ---
Author Organization [facility] in [place] Address [address] [place] [address] Care Team Providers Care [employer] Name Role Phone Job Alvarado MD Primary Care Provider Graham Harris [phone] Allergies Allergen (clinical drug ingredient) Drug/Non Drug [...] 1 tablet Orally Once a day Active Avbfss-Wjfq-JDW-Ca-C-CtCl-S eCu - as directed Orally Active Losartan Potassium 100 MG 1 tablet Orall y Once a day Active Norvasc 5 MG 1 tablet Orally Once a day Active [place] 3 1000 MG 1 capsule Orally Onc [...] Encounters Encounter Location Date Provider Diagnosis [facility] (PODIAT[facility]) [address] [place] [address] [place] [address] 10/19/2024 Graham Schmitz Stress fracture, left foot, [...] Notes * Sara RIVERAOB:1949 (74 yo F)Acc No.[id number]:10/19/2024 Follow Up Patient: Dayna LACKEY Isaura Provider: Jimmy Schmitz DPM, MS :1950 A ge:74 Y S ex:Female Date:10/19/2024 Address:[facility] [address] [facility] [address] [place] [address], [id number] Pcp:Job Alvarado MD Check In:08:24 AM ESTCheck [...] M usculoskeletal: Bone/Joint Symptoms d enies. C halfway Pain d enies.?Leg cramps d enies. N [...] Release 1 tablet Orally Once a day Dfrnff-Artx-GLZ-Mp-Z-JbBw-SeCu - Tablet as directed Orally Losartan Potassium 100 MG Tablet 1 tablet Orally Once a day Norvasc(amLODIPine Besylate) 5 MG Tablet 1 tablet Orally Once a day [place] 3 1000 MG Capsule 1 capsule Orally [...] 1 tablet Orally Once a day Taking Gxqswl-Avup-HFV-Fb-M-PpEi-SeCu - Tablet as directed Orally Taking Losartan Potassium 100 MG Tablet 1 tablet Orally Once a day Taking Norvasc(amLODIPine Besylate) 5 MG Tablet 1 tablet Orally Once a day Taking [place] 3 1000 MG Capsule 1 capsule Orally [...] 10/19/2024 Generated for Randal cavazos/Ingrid/Brettsmitting on: 0 04/15/2025 08:51 AM EDT History [...]
--- OUTSIDE RECORDS SUMMARY | 2025-04-15 08:50 | XMS_ITS | Encounter Summary ---
Author Organization [facility] Address [address] [facility] [place] [address] Care Team Providers Care Phys Assistant Name Role Phone Francia Gambino MD Primary Care Provider Encounter Details Date Type Department Care Team (Late st Contact Info) Description 08/05/2023 Clinisync Result Encounter [facility] External Department Unsolicited Bentley Das, DO [address] [place], [place] [id number] Social History Tobacco Use Types Packs/Day Years [...] AM EST Office Visit [facility] [address] [facility] [id number] Bentley Das DO [address], [place] [id number] documented as of this encounter Procedures Procedure Name Priority Date/Time Associated Diagnosis Comments ECG 12-LEAD 08/05/2023 9:40 AM EST documented in this encounter Results * ECG 12-LEAD (08/05/2023 9:40 AM EST) Anatomical Region Laterality Modality Other 08/05/2023 9:40 AM EST Narrative 08/07/2023 4:47 [place] [address] Electrocardiograph Report Signed Patient: ISAURA RIVERA MR#: [id number] : 1950 Acct:[id number] Age/Sex: 73 / F ADM Date: 08/05/23 Loc: [facility] Attending Dr: Bentley Das D.O. Ordering Physician: Bentley Das D.O. Date of Service: 08/05/23 Procedure(s): ECG 12 lead Accession Number(s): [id number] cc: 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 Signed By: 08/07/23 1647 DD/ 0940 TD/TT: Inspector Cold Working: Procedure Note Radiology, Radiologist, MD - 08/07/2023 [place] [address] Electrocardiograph Report Signed Patient: ISAURA RIVERA LMR#: [id number] : 1950cct:[id number] Age/Sex: 73 / FADM Date: 08/05/23 Loc: PST Attending Dr: Bentley Das D.O. Ordering Physician: Bentley Das D.O. 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 Signed By:08/07/23 1647 DD/ 0940 TD/TT: Inspector Cold Working: us Bentley Das DO [facility] Final Result documented in this encounter Visit Diagnoses Not on filedocumented in this encounter Care Teams Phys Assistant Relationship Specialty Start Date End Date Francia Gambino MD [address] [place] [address] PCP - General Family Medicine 01/27/23 documented as of this encounter
--- OUTSIDE RECORDS SUMMARY | 2025-04-15 08:50 | XMS_ITS | Clinical Summary ---
Author Organization [facility] Address [address] [place] [address] Care Team Providers Care Non Morse Intercept Technician Name Role Phone Unavailable Primary Care Provider [...]
--- OUTSIDE RECORDS SUMMARY | 2025-04-15 08:50 | XMS_ITS | Encounter Summary ---
Author Organization [facility] tem Address [id number] [place] [address] Care Team Providers Care Bedspread Inspector Name Role Phone Job Alvarado MD Primary Care Provider [phone] Encounter Details Date Type Department Care Team ([facility] st Contact Info) Description 01/13/2024 Orders Only [facility] - [facility] [address] [facility] [place] [address] Kalyn Lam MD [address] [facility] [id number] [place] [address] Social History Tobacco Use Types Packs/Day Years [...] on filedocumented in this encounter Care Teams Bedspread Inspector Relationship Specialty Start Date End Date Job Alvarado MD [address] [place] [address] PCP - General Family Medicine 11/07/23 documented as of this encounter
--- OUTSIDE RECORDS SUMMARY | 2025-04-15 08:50 | XMS_ITS | Encounter Summary ---
Author Organization [facility] Address [address] [place] [address] Care Team Providers Care Clay Molder Name Role Phone Francia Gambino MD Primary Care Provider Encounter Details Date Type Department Care Team (Late st Contact Info) Description 04/05/2025 Telephone [facility] [address] [facility] [place] [address] Kirti Breaux LPN [address] [place] [address] Social History Tobacco Use Types [...] we send over her lab work to [facility]. She is getting her prolia infusion Tuesday the . Lab orders sent documented in this encounter Plan of Treatment Upcoming Encounters Date Type Department Care Team (Late st Contact Info) Description 09/03/2025 10:00 AM EST Office Visit [facility]BG[facility] [address] [address] [place] [address] Bentley Das DO [address] [facility] [place] [address] Scheduled Orders Name Type Priority Associated Diagnoses [...] presence documented in this encounter Care Teams Clay Molder Relationship Specialty Start Date End Date Francia Gambino MD [address] [place] [address] PCP - General Family Medicine 01/27/23 documented as of this encounter
--- OUTSIDE RECORDS SUMMARY | 2025-04-15 08:50 | XMS_ITS | Clinical Summary ---
Author Organization [facility] Address [id number] [place] [address] Care Team Providers Care Vascular Technologist Name Role Phone Job Alvarado MD Primary Care Provider [phone] Allergies Active Allergy Reactions Criticality Noted Date [...] Devices Not on file Insurance Care Teams Vascular Technologist Relationship Specialty Start Date End Date Job Alvarado MD [address] [facility] [address] PCP - General Family Medicine 11/07/23
--- OUTSIDE RECORDS SUMMARY | 2025-04-15 08:50 | XMS_ITS | Encounter Summary ---
Author Organization [facility] Address [address] [place] [address] Care Team Providers Care Bus Girl Name Role Phone Francia Gambino MD Primary Care Provider Encounter Details Date Type Department Care Team (Late st Contact Info) Description 06/28/2023 Abstract [facility] [address] [facility] [address] [place] [phone] Analisa Soto DO [address] [facility] [address] [place] [address] Social History Tobacco Use Types Packs/Day Years [...] EST Office Visit [facility] [address] [facility] [place] [address] Bentley Das DO [address] [facility] [address] [place], [place] [phone] documented as of this encounter Visit Diagnoses Not on filedocumented in this encounter Care Teams Bus Girl Relationship Specialty Start Date End Date Francia Gambino MD [address] [place] [address] PCP - General Family Medicine 01/27/23 documented as of this encounter
--- OUTSIDE RECORDS SUMMARY | 2025-04-15 08:50 | XMS_ITS | Encounter Summary ---
Author Organization [facility] Address [address] [facility] [address] Care Team Providers Care Entertainment Usher Name Role Phone Francia Gambino MD Primary Care Provider [phone] Encounter Details Date Type Department Care Team (Late Contact Info) Description 01/23/2025 Abstract [facility] [address] [place] [address] Bentley Das DO [facility] [address], [place] [address] Social History Tobacco Use Types Packs/Day Years [...] Office Visit [facility] [address] [place] [address] Bentley Das DO [address] [place] [address] documented as of this encounter Visit Diagnoses Not on filedocumented in this encounter Care Teams Entertainment Usher Relationship Specialty Start Date End Date Francia Gambino MD [address] [place] [address] PCP - General Family Medicine 01/27/23 documented as of this encounter
--- OUTSIDE RECORDS SUMMARY | 2025-04-15 08:50 | XMS_ITS | Encounter Summary ---
Author Organization [facility] Address [address] [facility] [place] [address] Care Team Providers Care Streetcar Starter Name Role Phone Francia Gambino MD Primary Care Provider Encounter Details Date Type Department Care Team (Late Contact Info) Description 01/23/2025 Abstract [facility] [address] [place] [address] Bentley Das DO [facility] [address], [place] [address] Social History Tobacco Use Types Packs/Day Years [...] Office Visit [facility] [address] [place] [address] Bentley Das DO [address] [place] [address] documented as of this encounter Visit Diagnoses Not on filedocumented in this encounter Care Teams Streetcar Starter Relationship Specialty Start Date End Date Francia Gambino MD [address] [place] [address] PCP - General Family Medicine 01/27/23 documented as of this encounter
--- OUTSIDE RECORDS SUMMARY | 2025-04-15 08:50 | XMS_ITS | Encounter Summary ---
Author Organization [employer] Address [facility] [id number] [address] [place] [address] Care Team Providers Care Web Analyst Name Role Phone Job Alvarado MD Primary Care Provider Encounter Details Date Type Department Care Team ([facility] Contact Info) Description 10/19/2023 Orders Only [facility] [address] [place] [phone] Transcribe, Orders Support User Pain (Primary [...] pain documented in this encounter Care Teams Web Analyst Relationship Specialty Start Date End Date Job Alvarado MD [address] [place] [address] PCP - General Family Medicine 11/07/23 documented as of this encounter
--- OUTSIDE RECORDS SUMMARY | 2025-04-15 08:51 | XMS_ITS | Clinical Summary ---
Author Organization [facility] Address [address] [facility], [address] [place] [address] Care Team Providers Care Grocery Clerk Marking Name Role Phone Francia Gambino MD Primary [...] Treatment Not on file Insurance [employer] [place] Care Teams Grocery Clerk Marking Relationship Specialty Start Date End Date Francia Gambino MD [address] [place] [address] PCP - General 04/02/14
--- OUTSIDE RECORDS SUMMARY | 2025-04-15 08:51 | XMS_ITS | Encounter Summary ---
Author Organization [facility] Address [address] [facility] [place] [address] Care Team Providers Care Injection Mold Technician Name Role Phone Francia Gambino MD Primary Care Provider [phone] Encounter Details Date Type Department Care Team (Late st Contact Info) Description 10/17/2023 Clinisync Result Encounter [facility] External Department Unsolicited Diane Herbert PA [address] [place], [facility] Social History Tobacco Use Types Packs/Day [...] AM EST Office Visit [facility] [address] [facility] [place] [phone] Bentley Das DO [address], [place] [phone] documented as of this encounter Procedures Procedure Name Priority Date/Time Associated Diagnosis Comments US PELVIS W/ TRANSVAGINAL 10/17/2023 10:10 AM EST documented in this encounter Results * US PELVIS W/ TRANSVAGINAL (10/17/2023 10:10 AM EST) Anatomical Region Laterality Modality Other 10/17/2023 10:1 0 AM EST Narrative 10/17/2023 10:12 [place] [address] Ultrasound Report Signed Patient: ISAURA RIVERA MR#: [id number] : 1950 Acct:[id number] Age/Sex: 73 / F ADM Date: 10/17/23 Loc: US Attending Dr: Diane Herbert Ordering Physician: Diane Herbert Date of Service: 10/17/23 Procedure(s): US pelvis w/ transvaginal Accession Number(s): [id number] cc: Diane Herbert; ANAMARIA CHINCHILLA [place] [id number] Patient Name: ISAURA RIVERA MRN: [id number] date: 1950 Sex: F Assigned Patient Location: Current Patient Location: [facility] Accession/Order Number: [id number] Exam Date: 10/17/2023 08:55 Report Date: 10/17/2023 [...] Signed By: 10/17/23 101 DD/ 1010 TD/TT: Pool Attendant: Procedure Note Radiology, Radiologist, - 10/17/2023 [place] [address] Ultrasound Report Signed Patient: ISAURA RIVERA LMR#: [id number] : 1950cct:[id number] Age/Sex: 73 / FADM Date: 10/17/23 Loc: US Attending Dr: Diane Herbert Ordering Physician: Diane Herbert Date of Service: 10/17/23 Procedure(s): US pelvis w/ transvaginal Accession Number(s): [id number] cc: Diane Herbert; ANAMARIA CHINCHILLA The [place] [id number] Patient Name: ISAURA RIVERA MRN: [id number] date: 1950 Sex: F Assigned Patient Location: US Current Patient Location: [facility] Accession/Order Number: [id number] Exam Date: 10/17/2023 08:55 Report Date: 10/17/2023 [...] M.D. Signed By:10/17/23 1012 DD/ 1010 TD/TT: Pool Attendant: us Diane [facility] Final Result documented in this encounter Visit Diagnoses Not on filedocumented in this encounter Care Teams Injection Mold Technician Relationship Specialty Start Date End Date Francia Gambino MD [address] [place] [phone] PCP - General Family Medicine 01/27/23 documented as of this encounter
--- OUTSIDE RECORDS SUMMARY | 2025-04-15 08:51 | XMS_ITS | Encounter Summary ---
Author Organization [facility] Address [address] [facility] [place] [address] Care Team Providers Care Center Mgr Name Role Phone Francia Gambino MD Primary Care Provider Encounter Details Date Type Department Care Team (Late Contact Info) Description 10/11/2023 Abstract [facility] [address] [place] [address] Bentley Das DO [facility] [address], [place] [address] Social History Tobacco Use Types Packs/Day Years [...] Bentley Das DO [address] [place] [address] documented as of this encounter Visit Diagnoses Not on filedocumented in this encounter Care Teams Center Mgr Relationship Specialty Start Date End Date Francia Gambino MD [address] [place] [address] PCP - General Family Medicine 01/27/23 documented as of this encounter
--- OUTSIDE RECORDS SUMMARY | 2025-04-15 08:51 | XMS_ITS | Encounter Summary ---
Author Organization [employer] Address [id number] [address] [place] [address] Care Team Providers Care Parts Technician Name Role Phone Job Alvarado MD Primary Care Provider [phone] Encounter Details Date Type Department Care Team (Late st Contact Info) Description 08/04/2021 Orders Only [facility] [address] [place] [phone] Transcribe, Orders Support User Pain (Primary [...] Cervicalgia documented in this encounter Care Teams Parts Technician Relationship Specialty Start Date End Date Job Alvarado MD [address] [place] [address] PCP - General Family Medicine 11/07/23 documented as of this encounter
--- OUTSIDE RECORDS SUMMARY | 2025-04-15 08:51 | XMS_ITS | Patient Health Record ---
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 Name Role Phone Anamaria Chinchilla MD Primary Care Provider Sung [facility] [phone] Allergies Allergen (clinical drug ingredient) Drug/Non Drug Allergy documented on EMR Reaction Allergy Type Onset Date Status hydromorphone Dilaudid Unknown Drug Allergy Act meg Results Component Value Reference Range Notes XR Foot RT (3 views) * Reviewed date:08/20/2024 01:25:36 PM Interpretation: Performing Lab: Notes/Report: XR foot SARAHI min 3V (Not yet reviewed by provider) Interpretation: Performing Lab: Notes/Report: Source Facility: [place] [address] XRay Report Signed Patient: ISAURA RIVERA MR#: [id number] : 1950 Acct:[id number] Age/Sex: 74 / F ADM Date: 10/19/24 Loc: EC Attending Dr: Sung Schmitz D.P.M. Ordering Physician: Sung Schmitz D.P.M. Date of Service: 10/19/24 Procedure(s): XR foot SARAHI min 3V Accession Number(s): [id number] cc: Sung Schmitz D.P.M.; ANAMARIA CHINCHILLA [place] [address] Patient Name: ISAURA RIVERA MRN: [id number] date: 1950 Sex: F Assigned Patient Location: EC Current Patient Location: EC Accession/Order Number: [id number] Exam Date: 10/19/2024 12:14 Report Date: 10/19/2024 [...] Maryanne Coates M.D.10/19/2024 12:17 PM Dictation Location: [place] [address] Electronically authenticated by: [id number] Y Date: 10/19/2024 12:17 Dictated By: Maryanne Coates M.D. Signed By: 10/19/24 1220 DD/ 1217 TD/TT: Dramatic Director: [place] [address] XRay Report Signed Patient: ISAURA RIVERA MR#: [id number] : 1950 Acct:[id number] Age/Sex: 74 / F ADM Date: 10/19/24 Loc: EC Attending Dr: Sung Schmitz D.P.M. Ordering Physician: Sung Schmitz D.P.M. Date of Service: 10/19/24 Procedure(s): XR ladi t SARAHI min 3V Accession Number(s): [id number] cc: Sung Schmitz D.P.M.; ANAMARIA CHINCHILLA [address] [address] Patient Name: ISAURA RIVERA MRN: [id number] date: 1950 Sex: F Assigned Patient Location: Current Patient Location: Accession/Order Numb er: [id number] Exam Date: 10/19/2024 12:14 Report Date: 10/19/2024 [...] Maryanne Coates M.D.10/19/2024 12:17 PM Dictation Location: [place] [address] Electronically authe nticated by: [id number] Y Date: 10/19/2024 12:17 Dictated By: Maryanne Coates M.D. Signed By: 10/19/24 1220 DD/ 1217 TD/TT: Dramatic Director: XR foot SARAHI min 3V (Not yet reviewed by provider) Interpretation: Performing Lab: Notes/Report: Source Facility: [place] [address] XRay Report Signed Patient: ISAURA RIVERA MR#: [id number] : 1950 Acct:[id number] Age/Sex: 74 / F ADM Date: 09/18/24 Loc: RAD Attending Dr: Sung Schmitz D.P.M. Ordering Physician: Sung Schmitz D.P.M. Date of Service: 09/18/24 Procedure(s): XR foot SARAHI min 3V Accession Number(s): [id number] cc: Sung Schmitz D.P.M.; ANAMARIA CHINCHILLA [place] [address] Patient Name: ISAURA RIVERA MRN: [id number] date: 1950 Sex: F Assigned Patient Location: RAD Current Patient Location: RAD Accession/Order Number: [id number] Exam Date: 09/18/2024 13:05 Report Date: 09/18/2024 [...] Signed By: 09/18/24 1346 DD/ 1344 TD/TT: Dramatic Director: [place] [address] XRay Report Signed Patient: ISAURA RIVERA MR#: [id number] : 1950 Acct:[id number] Age/Sex: 74 / F ADM Date: 09/18/24 Loc: [facility] Attending Dr: Sung Schmitz D.P.M. Ordering Physician: Sung Schmitz D.P.M. Date of Service: 09/18/24 Procedure(s): XR ladi t SARAHI min 3V Accession Number(s): [id number] cc: Sung Schmitz D.P.M.; ANAMARIA CHINCHILLA The [place] [phone] Patient Name: ISAURA RIVERA MRN: [id number] date: 1950 Sex: F Assigned Patient Location: [facility] Current Patient Location: RAD Accession/Order Numb er: [id number] Exam Date: 09/18/2024 13:05 Report Date: 09/18/2024 13:44 At the request of: SUNG SCHMITZ Procedure: XR foot SARAHI min 3V EXAMINATION: XR foot SARAIH min 3V HISTORY: Pain COMPARISON: 08/08/2024 FINDINGS: [...] Signed By: 09/18/24 1346 DD/ 1344 TD/TT: Dramatic Director: XR foot SARAHI min 3V (Not yet reviewed by provider) Interpretation: Performing Lab: Notes/Report: Source Facility: [place] [address] XRay Report Signed Patient: ISAURA RIVERA MR#: [id number] : 1950 Acct:[id number] Age/Sex: 74 / F ADM Date: 08/08/24 Loc: RAD Attending Dr: Sung Schmitz D.P.M. Ordering Physician: Sung Schmitz D.P.M. Date of Service: 08/08/24 Procedure(s): XR foot SARAHI min 3V Accession Number(s): [id number] cc: Sung Schmitz D.P.M.; ANAMARIA CHINCHILLA [place] [address] Patient Name: ISAURA RIVERA MRN: [id number] date: 1950 Sex: F Assigned Patient Location: [facility] Current Patient Location: Accession/Order Number: [id number] Exam Date: 08/08/2024 10:36 Report Date: 08/09/2024 [...] M.D. Signed By: 08/09/24602 DD/ 0 TD/TT: Dramatic Director: [place] [address] XRay Report Signed Patient: ISAURA RIVERA MR#: [id number] : 1950 Acct:[id number] Age/Sex: 74 / F ADM Date: 08/08/24 Loc: RAD Attending Dr: Sung Schmitz D.P.M. Ordering Physician: Sung Schmitz D.P.M. Date of Service: 08/08/24 Procedure(s): XR ladi t SARAHI min 3V Accession Number(s): [id number] cc: Sung Schmitz D.P.M.; ANAMARIA CHINCHILLA [place] [id number] Patient Name: ISAURA RIVERA MRN: [id number] date: 1950 Sex: F Assigned Patient Location: RAD Current Patient Location: Accession/Order Numb er: [id number] Exam Date: 10:36 Report Date: 08/09/2024 06:01 [...] M.D. Signed By: 08/09/24602 DD/ 0 TD/TT: Dramatic Director: XR foot SARAHI min 3V (Not yet reviewed by provider) Interpretation: Performing Lab: Notes/Report: Source Facility: [place] [address] XRay Report Signed Patient: ISAURA RIVERA MR#: [id number] : 1950 Acct:[id number] Age/Sex: 74 / F ADM Date: 07/17/24 Loc: RAD Attending Dr: Sung Schmitz D.P.M. Ordering Physician: Sung Schmitz D.P.M. Date of Service: 07/17/24 Procedure(s): XR foot SARAHI min 3V Accession Number(s): [id number] cc: Sung Schmitz D.P.M.; ANAMARIA CHINCHILLA [place] [address] Patient Name: ISAURA RIVERA MRN: [facility]:[id number] date: 1950 Sex: F Assigned Patient Location: [facility] Current Patient Location: Accession/Order Number: [id number] Exam Date: 07/17/2024 09:15 Report Date: 07/19/2024 [...] M.D. Signed By: 07/19/24930 DD/ 8 TD/TT: Dramatic Director: [place] [address] XRay Report Signed Patient: ISAURA RIVERA MR#: [id number] : 1950 Acct:[id number] Age/Sex: 74 / F ADM Date: 07/17/24 Loc: RAD Attending Dr: Sung Schmitz D.P.M. Ordering Physician: Sung Schmitz D.P.M. Date of Service: 07/17/24 Procedure(s): XR ladi t SARAHI min 3V Accession Number(s): [id number] cc: Sung Schmitz D.P.M.; ANAMARIA CHINCHILLA [place] [address] Patient Name: ISAURA RIVERA MRN: [facility]:[id number] date: 1950 Sex: F Assigned Patient Location: [facility] Current Patient Location: Accession/Order Numb er: [id number] Exam Date: 09:15 Report Date: 07/19/2024 09:29 [...] M.D. Signed By: 07/19/24930 DD/ 8 TD/TT: Dramatic Director: XR foot LT min 3V (Not yet r eviewed by provider) Interpretation: Performing Lab: Notes/Report: Source Facility: [place] [address] XRay Report Signed Patient: ISAURA RIVERA MR#: [id number] : 1950 Acct:[id number] Age/Sex: 73 / F ADM Date: 06/05/24 Loc: RAD Attending Dr: Sung Schmitz D.P.M. Ordering Physician: Sung Schmitz D.P.M. Date of Service: 06/05/24 Procedure(s): XR foot LT min 3V Accession Number(s): [id number] cc: Sung Schmitz D.P.M.; ANAMARIA CHINCHILLA [place] [id number] Patient Name: ISAURA RIVERA MRN: [id number] date: 1950 Sex: F Assigned Patient Location: [facility] Current Patient Location: Accession/Order Number: [id number] Exam Date: 06/05/2024 09:19 Report Date: 06/06/2024 [...] M.D. Signed By: 06/06/24725 DD/ 2 TD/TT: Dramatic Director: [place] [address] XRay Report Signed Patient: ISAURA RIVERA MR#: [id number] : 1950 Acct:[id number] Age/Sex: 73 / F ADM Date: 06/05/24 Loc: RAD Attending Dr: Sung Schmitz D.P.M. Ordering Physician: Sung Schmitz D.P.M. Date of Service: 06/05/24 Procedure(s): XR foot LT min 3V Accession Number(s): [id number] cc: Sung Schmitz D.P.M.; ANAMARIA CHINCHILLA The [address] [address] Patient Name: ISAURA RIVERA MRN: [id number] date: 1950 Sex: F Assigned Patient Location: [facility] Current Patient Location: Accession/Order [place] er: [id number] Exam Date: 09:19 Report Date: 06/06/2024 07:23 [...] M.D. Signed By: 06/06/24725 DD/ 2 TD/TT: Dramatic Director: Reason For Referral No Information Medications Medication SIG (Take, Route, Frequency, Duration) Notes Start Date End Date Status Aspirin 81 81 MG 1 tablet Orally Once a day Active Wsezop-Ojok-SDV-Ca-C-CtCl-S eCu - as directed Orally Active Losartan [...] for spasm for 4 days 06/05/2024 Active [place] 3 1000 MG 1 capsule Orally Onc e a day Active Social History Tobacco Use: Social History Observation Description Date Details (start date - stop date) Never Smoker NA - NA Tobacco Use/Smoking Question Answer Notes Patient is a nonsmoker Problems Problem Type SNOMED Code ICD Code Onset Dates Problem Status W/U Status Risk Notes Problem 41021573836683048 Pain in left ankle and joints of left foot (M25.572) Active confirmed Problem 543225432537514 Metatarsalgia, right foot (M77.41) Active confirmed Problem 300296916486934 Pain in left foot (M79.672) Active confirmed Problem 808502128 Age-related osteoporosis with current pathological fracture, unspecified site, initial encounter for fracture (M80.00XA) Active confirmed Problem 60788932673212542 Stress fracture, left foot, initial encounter for fracture (M84.375A) Active confirmed second metatarsal Problem 550429014 Stress fracture, left foot, subsequent encounter for fracture with nonunion (M84.375K) Active confirmed Problem Pain in right foot (773482390148240) Right foot pain (M79.671) Active confirmed Problem 13583714 Nondisplaced fracture of second metatarsal bone, left foot, subsequent encounter for fracture with nonunion (S92.325K) Active confirmed High Problem Pain in left foot (036816344525552) Left foot pain (M79.672) Active confirmed Vital Signs Heart Rate 60 /min 10/19/2024 Temperature 97.5 degrees Fahrenheit 10/19/2024 Oximetry 97 % 10/19/2024 Height 64 in 10/19/2024 Encounters Encounter Location Date Provider Diagnosis [facility] (PODIATRY) [address] [place] [address] 07/18/2024 Sung Schmitz [facility] (PODIATRY) [address] [place] [address] 09/13/2024 Sung Schmitz [facility] (PODIATRY) [address] [place] [address] 09/18/2024 Sung Schmitz Stress fracture, right foot, initial encounter for fracture M84.374A ; Age-related osteoporosis with current pathological fracture, unspecified site, initial encounter for fracture M80.00XA ; Left foot pain M79.672 ; Right foot pain M79.671 and Nondisplaced fracture of second metatarsal bone, left foot, subsequent encounter for fracture with nonunion S92.325K [facility] (PODIATRY) [address] [place] [address] [place] [address] 10/19/2024 Sung Schmitz Stress fracture, left foot, initial encounter for fracture M84.375A ; Stress fracture, right foot, initial encounter for fracture M84.374A ; Age-related osteoporosis with current pathological fracture, unspecified site, initial encounter for fracture M80.00XA ; Pain in left foot M79.672 and Right foot pain M79.671 [facility] (PODIATRY) [address] [place] [address] [place] [address] 06/05/2024 Peter Highlander Stress fracture, left foot, initial encounter for fracture M84.375A ; Age-related osteoporosis with current pathological fracture, unspecified site, initial encounter for fracture M80.00XA and Pain in left foot M79.672 [facility] (PODIATRY) [address] [place] [address] [place] [address] 07/17/2024 Peter Highlander Stress fracture, right foot, initial encounter for fracture M84.374A ; Nondisplaced fracture of second metatarsal bone, left foot, subsequent encounter for fracture with nonunion S92.325K ; Age-related osteoporosis with current pathological fracture, unspecified site, initial encounter for fracture M80.00XA ; Pain in left foot M79.672 and Pain in right foot M79.671 [facility] (PODIATRY) [address] [place] [address] [place] [address] 08/08/2024 Peter Highlander Stress fracture, right foot, initial encounter for fracture M84.374A ; Stress fracture, left foot, initial encounter for fracture M84.375A ; Age-related osteoporosis with current pathological fracture, unspecified site, initial encounter for fracture M80.00XA ; Metatarsalgia, right foot M77.41 and Pain in left foot M79.672 Assessments Encounter Date Diagnosis (ICD Code) Assessment [...] Date [employer] MED[employer] ADV PLAN [address] [place] [address] [id number] Isaura Miguel Self - patient is the insured Medical (General) History Medical History History ICD Code arthritis high blood pressure high cholesterol Surgical History Surgery Date(Month/Year) right ankle I&D due to cat bite colonoscopy prolapsed bladder, cystocele cholecystectomy hemorhoidectomy tonsillectomy capillary angioma x 3 Hospitalization History Reason Date(Month/Year) see above
--- OUTSIDE RECORDS SUMMARY | 2025-04-15 08:52 | XMS_ITS | Encounter Summary ---
Author Organization [facility] Address [address] [facility] [place] [address] Care Team Providers Care Him Coder Name Role Phone Francia Gambino MD Primary Care Provider [phone] Encounter Details Date Type Department Care Team (Late st Contact Info) Description 04/12/2025 Clinisync Result Encounter [facility] External Department Unsolicited Bentley Das, DO [address] [place], [place] [id number] Social History Tobacco Use Types Packs/Day Years [...] AM EST Office Visit [facility] [address] [facility] [place] [phone] Bentley Das DO [address] [place], [place] [id number] documented as of this encounter Procedures Procedure Name Priority Date/Time Associated Diagnosis Comments [facility] CREATININE Routine 04/12/2025 9:47 AM EDT [facility] CALCIUM Routine 04/12/2025 9:47 AM EDT documented in this encounter Results * [facility] CALCIUM (04/12/2025 9:47 AM EDT) CALCIUM 9.1 8.5 - 10.1 mg/dL [facility] 04/12/2025 9:47 AM EDT 04/12/2025 9:48 AM EDT Narrative [facility] - 04/12/2025 10:02 AM EDT us Bentley Pippa DO [facility] Final Result [facility] * (ABNORMAL) [facility] CREATININE (04/12/2025 9:47 AM EDT) CREATININE 1.28(H) 0.55 - 1.02 mg/dL [facility] TBH EGFR-AF [place]IZ[place] 50(L) >=60 mL/min/1.7 3m 2 TBH TBH EGFR-NON AF CITIZEN [place] 41(L) >=60 mL/min/1.7 3m 2 [facility] 04/12/2025 9:47 AM EDT 04/12/2025 9:48 AM EDT Narrative [facility] - 04/12/2025 10:02 AM EDT us Bentley Pippa DO [facility] Final Result [facility] TB documented in this encounter Visit Diagnoses Not on filedocumented in this encounter Care Teams Him Coder Relationship Specialty Start Date End Date Francia Gambino MD [address] [place] [address] PCP - General Family Medicine 01/27/23 documented as of this encounter
--- OUTSIDE RECORDS SUMMARY | 2025-04-15 09:01 | XMS_ITS | CCD ---
Author Organization [facility] Care Team Providers Care Velvet Cutter Name Role Phone FARA BOOKER Unavailable Unavailable GAMBINO, ANJELICA Bergeron Unavailable Unavailable KARASIK, FARA Unavailable Unavailable AGMBINO, ANJELICA Bergeron Unavailable Unavailable GAMBINO, DR ANJELICA [...] Consulting Unavailable Anamaria Chinchilla. Primary Care Physician [phone] NABIL LORD Attending Unavailable BELEN, ANJELICA Bergeron Referring Unavailable GAMBINO, ANJELICA Bergeron Primary Care Unavailable GAMBINO, ANJELICA E Referring Unavailable GAMBINO, ANJELICA Bergeron Primary Care Unavailable BELEN, ANJELICA Bergeron Referring Unavailable ROSS, ANAMARIA Rubio Primary Care Unavailable CAROLYN, NABIL C Admitting Unavailable CAROLYN, NABIL C Attending Unavailable CAROLYN, NABIL C Referring Unavailable GAMBINO, ANJELICA E Primary Care Unavailable SUNG NIÑO Attending Unavailable ROSS, ANAMARIA E Primary Care Unavailable CAROLYN, NABIL C Attending Unavailable CAROLYN, NABIL C Referring Unavailable ROSS, ANAMARIA E Primary Care Unavailable CAROLYN, NABIL C Attending Unavailable CAROLYN, NABIL C Referring Unavailable ROSS, ANAMARIA E Primary Care Unavailable CAROLYN, NABIL C Referring Unavailable ROSS, ANAMARIA E Primary Care Unavailable PENNINGTONMARY JOSEPH Attending Unavailable BELEN, ANJELICA E Referring Unavailable ROSS, ANAMARIA E Primary Care Unavailable PENNINGTONMARY Attending Unavailable ANAMARIA CHINCHILLA Referring Unavailable ANAMARIA CHINCHILLA Primary Care Unavailable MD Anamaria Chinchilla Attending Unavailable MD Anamaria Chinchilla Attending Unavailable MD Anamaria Chinchilla Attending Unavailable MD Anamaria Chinchilla Admitting Unavailable MD Anamaria Chinchilla Attending Unavailable VIPUL OBANDO Attending Unavailable MD Anamaria Chinchilla Attending Unavailable Anjelica Gambino MD Primary Care Provider [phone] BENTLEY DAS Attending Unavailable BENTLEY DAS Attending Unavailable Kushal Keith Attending Unavailable Anamaria Chinchilla MD Primary Care Provider Anjelica Gambino MD Primary Care Provider [phone] Anamaria Chinchilla Attending Unavailable Leonidas, Violet L [...] Attending Unavailable Kaitlin Santiago Primary Care Physician Kaitlin Kimble Unavailable Unavailable Allergies Allergy Classification Reported Allergen(s) Allergy Type Date of Onset Reaction(s) Facility (6 sources) atorvastatin; Translations: [atorvastatin] Drug Allergy Unknown (qualifier value) [facility] (18 sources) HYDROmorphone; Translations: [hydromorphone] Drug Allergy 01-29-20 Unknown (qualifier value), Unknown, Confusion, Hallucinations [facility] (6 sources) Pyrilamine; Translations: [pyrilamine] Drug Allergy Unknown (qualifier value) [facility] (4 sources) No Known Medication Allergies; Translations: [No Known Medication Allergies] Propensity to adverse reactions (disorder) [facility] (1 source) HYDROmorphone; Translations: [Dilaudid] Drug Allergy [employer] Medications Current Medications Medication Drug Class(es) Dates Sig (Normalized) Sig (Original) amLODIPine 5 mg oral tablet (14 sources) Dihydropyridine Calcium Channel Sylvester Start: 06-01-2023 take 1 tablet by mouth once daily amLODIPine 5 mg Tab See Instructions, TAKE 1 TABLET BY MOUTH DAILY, # 90 tab(s), Refills(s) 0, Pharmacy: [facility] [id number], 162, cm, 09/17/24 9:18:00 EST, Height/Length Dosing, 77.9, kg, 09/17/24 9:18:00 EST, Weight Dosing Start Date: 10/09/24 Status: Ordered aspirin 81 mg oral capsule (15 sources) Platelet Aggregation Inhibitor, Nonsteroidal Anti-inflammatory Drug Start: 11-29-2022 take 1 capsule by mouth every other day aspirin 81 mg oral capsule See Instructions, 1 cap(s) Oral every other day, Refills(s) 0 Start Date: 11/29/22 Status: Ordered Start: 11-29-2022 take 1 capsule by mo ut once daily aspirin 81 mg oral capsule [...] health Active bimatoprost 0.01 mg drug implant (13 sources) Prostaglandin Analog Start: 07-13-2024 Durysta 1 0 mcg intraocular implant mcg, IntraOcular, Once, Refills(s) 0 Start Date: 07/13/24 Status: Ordered Start: 05-07-2024 bimatoprost 0. 03% ophthalmic solution Refill(s) 0 Start Date: 05/07/24 Status: Ordered Bimatoprost (Dur ysta) 10 MCG implant Inject 10 mcg into the eye if needed ( NEEDED) Active Durysta 10 mcg i ntracameral implant injection in February 2024 both eyes take 1 drop(s) into the eye(s) once [...] Calcium-Phosphor us-Vitamin D (VITAMIN D3/CALCIUM/PHOSP HORUS PO) (5 sources) take 1 dose by mouth once in the morning Uyzmmrs-Dxmizkzpao-Cpa harp D (VITAMIN D3/CALCIUM/PHOSPHORUS PO) Take 1 each by mouth in the morning. Active denosumab (12 sources) RANK Ligand Inhibitor Start: 07-30-2024 Denosumab [...] Active docusate sodium 50 mg / sennosides, fpc 8.6 mg oral tablet (2 sources) Start: [...] day(s), # 14 cap(s), Refills(s) 0, Pharmacy: [facility] [id number], 162, cm, 05/07/24 14:07:00 EDT, Height/Length Dosing, [...] Active krill oil 500 mg oral capsule (9 sources) Start: 12-01-2022 Krill Oil (Lockwood-3) 500 MG capsule Take 500 mg by mouth. 12/01/2022 Active losartan potassium 100 mg oral tablet (14 sources) Angiotensin 2 Receptor Sylvester Start: 05-30-2023 take 1 tablet by mouth in the morning losartan (Cozaar) 100 MG tablet Take 100 mg by mouth in the morning. 05/30/2023 Active Start: 12-15-2022 take 1 tablet by silver th twice daily losartan 25 mg Tab 25 mg = 1 tab(s), Oral, BID, # 180 tab(s), Refills(s) 0, Pharmacy: [facility] [id number], 162, cm, 05/11/23 9:36:00 EDT, Height/Length Dosing, 74.9, kg, 05/11/23 9:36:00 EDT, Weight Dosing Start Date: 05/11/23 Status: Ordered meloxicam 15 mg oral tablet (6 sources) Nonsteroidal Anti-inflammatory Drug Start: 02-27-2023 End: 11-07-2023 take 1 tablet by mouth once daily as needed meloxicam 15 mg Tab See Instructions, TAKE ONE TABLET BY MOUTH DAILY NEEDED, # 90 tab(s), Refills(s) 0, Pharmacy: [facility] [id number], 162.6, cm, 12/01/22 15:23:00 EDT, Height/Length Dosing, [...] day(s), # 14 cap(s), Refills(s) 0, Pharmacy: [facility] [id number], 162, cm, 09/17/24 9:18:00 EST, Height/Length Dosing, 77.9, kg, 09/17/24 9:18:00 EST, Weight Dosing Start Date: 10/19/24 Stop Date: 10/26/24 Status: Ordered omega-3 acid ethyl esters (fpc) 1000 mg oral capsule (2 sources) take [...] Active rosuvastatin calcium 20 mg oral tablet (15 sources) HMG-CoA Reductase Inhibitor Start: 12-01-2022 rosuvastatin (Crestor) 20 MG tablet Take 20 mg by mouth. 12/01/2022 Active tafluprost 0.015 mg/ml ophthalmic solution (5 sources) [...] Ordered vitamin e 450 mg oral capsule (14 sources) Start: 12-01-2022 take 1 capsule by mouth once daily vitamin E 450 mg oral capsule See Instructions, take one daily 400mg, Refills(s) 0 Start Date: 12/01/22 Status: Ordered Start: 12-01-2022 alpha tocopher ol (Vitamin E) 1000 units capsule See Instructions, take one daily 400mg, Refills(s) 0 12/01/2022 Active take 1 capsule by [facility] once daily at dinner vitamin E, dl,tocopheryl acet, (vitamin E, dl, acetate,) 180 mg (400 unit) capsule Take 1 capsule (400 Units total) by mouth Daily before evening meal. Active take 1 capsule by [facility] in the morning vitamin E, dl,tocopheryl acet, [...] route daily take 1 capsule by mo ut in the morning cholecalciferol, vitamin D3, 2,000 units capsule Take 1 capsule (2,000 Units total) by mouth in the morning. 0 Active Chondroitin Sulfates / Gluco samine (4 sources) Glucosamine Evan droitin oral 1500mg/1200mg one nightly take 1 [...] OIL) 300-1,000 mg capsule (4 sources) End: take 1 capsule by mouth once daily [...] Chronic Comment on above: Added per Dr. Christiano diego response, per outpatient CDI policy. Deficiency and other anemia (2 sources) Anemia 07-30-2024 Episodic Disorders of lipid metabolism (20 sources) Pure hypercholesterolemia, unspecified; Translations: [Hypercholesterolemia ] Onset: 12-27-2016 Chronic Essential hypertension (14 sources) Essential (primary) hypertension; Translations: [Hypertensive disorder] [...] Onset: 10-27-2023 Resolved: 11-28-2023 05-11-2023 Chronic Osteoarthritis (11 sources) Arthritis; Translations: [Unspecified osteoarthritis, unspecified site] Onset: 12-27-2016 01-31-2023 Chronic Osteoporosis (12 sources) Senile osteoporosis; Translations: [Age-related osteoporosis without [...] source) Syncope 09-17-2024 Episodic Transient cerebral ischemia (14 sources) Transient cerebral ischemic attack, unspecified; Translations: [...] Onset: 09-08-2021 Episodic Deficiency and other anemia (11 sources) Iron deficiency anemia; Translations: [Iron deficiency anemia, unspecified] Onset: 12-27-2016 01-31-2023 Episodic Diabetes mellitus without complication (1 source) Hyperglycemia, unspecified; Translations: [HYPERGLYCEMIA UNSPECIFIED] Onset: 02-11-2022 Episodic Other aftercare (2 sources) Postoperative visit; Translations: [Encounter for other specified surgical aftercare] 12-27-2023 Episodic Other and unspecified benign neoplasm (5 sources) History of polyp of colon; Translations: [...] Interpretation Reference Range Facil ity [facility] CALCIUMon 04-12-2025 Calcium [Mass/Vol] 9.1 mg/dL 8.5 - 10.1 mg/dL [facility] No Panel Informationon 04-12 [facility] TB CREATININEon 04-12-2025 Creatinine [Mass/Vol] 1.28 mg/dL High 0.55 - 1.02 mg/dL [facility] GFR/1.73 sq M.predicted CKD-EPI (S/P/Bld) [Vol rate/Area] 50 Low >=60 mL/min/1.73m 2 [facility] Interpretation and review of laboratory results Abnormal [facility] EGFR-NON AF LEBANESE 41 Low >=60 mL/min/1.73m [address] [facility] No Panel Informationon 02-08 Tobacco smoking status Non-Smoker Invalid Interpretation Code [employer] Work Phone: Ambulatory Visit Summaryon 0 01-28-2025 Ambulatory Visit Summary Ambulatory Visit Summary ISAURA HAYDEN :1950 Visit Date:01/28/2025 Ambulatory Visit Instructions [...] Appointments 2024 11:00 AM EST Where: [address] [address]- Medications What How Much When Instructions Unchanged amlodipine (amLODIPine 5 mg Tab) See instructions TAKE 1 TABLET BY MOUTH DAILY Pickup at [facility] [id number] Unchanged aspirin (aspirin 81 mg oral capsule) [...] physician if questions or concerns Pharmacy Information [facility] [id number]: [address], [place] [id number] [phone] Allergies Dilaudid (Unknown) Problems Ongoing - Any [...] choosing us for your care. Natalee C[facility] Family Medicine [...] DAILY, # 90 tab(s), Refills(s) 1, [facility] [id number], 162, cm, 01/28/25 9:01:00 EDT, Height/Length Dosing, [...] regimens f (more content not included)... Normal [facility] Comment on above: Result Comment: Elec tronically Signed By: Christiano SHORT, Anamaria Harvey\.br\Date and Time Signed: 01/28/25 09:32 EDT Reminderson 10-22-2024 Reminders Reminders From: Violet Allen To: [facility] - Clinical; Sent: 10/22/2024 08:07:37 EST Show up: 10/22/2024 08:07:00 EST Subject: Ambulatory Reminder Due Date/Time: 10/23/2024 08:06:00 EST urine culture was positive. she is on the correct antibiotic. continue that until it is gone. Is she feeling better? Results: Date Result Type Ind Result Name 10/19/2024 10:39 EST MBO POS Urine Culture From: Maryanne Cramer M.A. ([facility] - Clinical) To: Violet Allen; Sent: 10/22/2024 09:32:36 EST Show up: 10/22/2024 09:31:00 EST Subject: RE: Ambulatory Reminder understands, and she said she is feeling a lot better than what she was Normal [facility] Reminders Reminders From: Violet Allen To: B - Clinical; Sent: 10/22/2024 08:07:37 EST Show up: 10/22/2024 08:07:00 EST Subject: Ambulatory Reminder Due Date/Time: 10/23/2024 08:06:00 EST urine culture was positive. she is on the correct antibiotic. continue that until it is gone. Is she feeling better? Results: Date Result Type Ind Result Name 10/19/2024 10:39 EST MBO POS Urine Culture Normal [facility] C Urineon 10-21-2024 Bacteria identified Cx [...] Locations R1: This test was performed at: [facility], [address] [place] [address], [address] , , [facility] Comment on above: Performed By: #### 2 [id number] #### [facility] [address] [place] [address] CC CALCIUMon 10-05-2024 Calcium [Mass/Vol] 8.9 mg/dL 8.5 - 10.1 mg/dL [facility] Family Medicine Office/Clini c Noteon 09-17-2024 Family [...] and her call the squad transferred to [facility] she did vomit a few times [...] her called 911 and was taken to [facility]. was hydrated with IV fluids and [...] tendinitis, unspecified shoulder) pt was seen at [facility] ortho Dr. Keith to go over [...] 23-valent v (more content not included)... Normal [facility] Comment on above: Result Comment: Elec tronically Signed By: Violet Allen.kelly\Date and Time Signed: 09/17/24 11:46 EST C ANAon 09-13-2024 C KARLEE -- - Pre No anaerobic growth after 48 hrs. Normal [facility] Comment on above: Performed By: #### A NAC #### [address] [address] C [place] 09-13-2024 C Wound -- - Final No growth at 48 hours. Normal [facility] Comment on above: Performed By: #### W DC #### [address] [address] Family Medicine Office/Clini c Noteon 09-11-2024 Family Medicine Office/Clinic Note Family Medicine Office/Clinic Note HPI Staff Isaura is a 74 year old female presenting with a cat bite on right ankle Onset: History of Present Illness Pt was bit 1-2 days before presenting to me. Seen in [facility] who started the patient on Abx. Area [...] Christiano SHORT, Anamaria Harvey\.br\Date and Time Signed: 09/11/24 12:15 EST OR Trackon 09-11-2024 [facility] on above: Performed By: #### O [facility] Tracking Order #### [place] [address] Ambulatory Visit Summaryon 0 09-10-2024 Ambulatory Visit [...] Follow-Up Appointments Tuesday 8:45 AM EDT With: Christiano SHORT, Anamaria Harvey Where: [address] [address] 2024 11:00 AM EST With: Where: [address] [address] Medications What How Much When Instructions Unchanged [...] for choosing us for your care. Normal [facility] Ambulatory Visit Summaryon 0 08-27-2024 Ambulatory [...] EDT With: Anamaria Chinchilla MD Where: [address] [address] 2024 11:00 AM EST With: Where: [address] [address]- Medications What How Much When [...] choosing us for your care. Natalee C[facility] Family Medicine [...] ortho for this. Follow up PRN Ordered: [facility] External Ambulatory Referral 2. CKD stage 3a, GFR 45-59 ml/min (N18.31: Chronic kidney disease, stage 3a) Improved on last lab work. Follow up PRN Ordered: A1c POC [id number] [facility] External Ambulatory Referral 3. BMI 29.0-29.9,adult (Z68.29: Body mass index [BMI] 29.0-29.9, adult) BMI education added Ordered: [facility] External Ambulatory Referral 4. Age-related osteoporosis without current pathological fracture (M81.0: Age-related osteoporosis without current pathological fracture) Reviewed Labs and Dexa. Prolia does not seem to be helping. Follows with Dr. Das. Ordered: [facility] External Ambulatory Referral Follow-up No qualifying data [...] A1c POC: 5.2 % (08/27/24 12:02:00) Normal [facility] Comment on above: Result Comment: Elec tronically Signed By: Christiano SHORT, Anamaria Saldivar.br\Date and Time Signed: 08/27/24 12:03 EST CBC w/ Auto Diffon 4 Basophils/100 WBC (Bld) 0.7 % Normal 0.0-2.0 [facility] Comment on above: Performed By: #### 2 [id number] #### [facility] [address] [place] [address] Basophils/Leukocyte s Auto (Bld) [Pure # fraction] 0.1 E9/L Normal 0.0-0.2 [facility] Comment on above: Performed By: #### 2 [id number] #### [facility] [address] [place] [address] Eosinophils (Bld) [#/Vol] 0.3 E9/L Normal 0.0-0.5 [facility] Comment on above: Performed By: #### 2 [id number] #### [facility] [address] [place] [address] Eosinophils/100 WBC (Bld) 3.2 % Normal 0.0-8.0 [facility] Comment on above: Performed By: #### 2 [id number] #### [facility] [address] [place] [address] Erythrocyte distribution width (RBC) [Ratio] 13.7 % Normal 10.9-14.2 [facility] Comment on above: Performed By: #### 2 [id number] #### [facility] [address] [place] [address] Hematocrit (Bld) [Volume fraction] 36.1 % Normal 34.0-46.0 [facility] Comment on above: Performed By: #### 2 [id number] #### [facility] [address] [place] [address] Hemoglobin (Bld) [Mass/Vol] 12.3 g/dL Normal 12.0-16.0 [facility] Comment on above: Performed By: #### 2 [id number] #### [facility] [address] [place] [address] Lymphocytes (Bld) [#/Vol] 1.7 E9/L Normal 1.0-4.0 [facility] Comment on above: Performed By: #### 2 [id number] #### [facility] [address] [place] [address] Lymphocytes/100 WBC (Bld) 20.6 % Normal 14.0-50.0 [facility] Comment on above: Performed By: #### 2 [id number] #### [facility] [address] [place] [address] MCH (RBC) [Entitic mass] 33.6 pg Normal 27.0-34.0 [facility] Comment on above: Performed By: #### 2 [id number] #### [facility] [address] [place] [address] MCHC (RBC) [Mass/Vol] 34.1 g/dL Normal 31.4-36.0 [facility] Comment on above: Performed By: #### 2 [id number] #### [facility] [address] [place] [address] MCV (RBC) [Entitic vol] 98.7 fL Normal 80.0-100.0 [facility] Comment on above: Performed By: #### 2 [id number] #### [facility] [address] [place] [address] Monocytes (Bld) [#/Vol] 0.6 E9/L Normal 0.2-1.0 [facility] Comment on above: Performed By: #### 2 [id number] #### [facility] [address] [place] [address] Neutrophils (Bld) [#/Vol] 5.8 E9/L Normal 2.0-7.5 [facility] Comment on above: Performed By: #### 2 [id number] #### [facility] [address] [place] [address] Neutrophils/100 WBC (Bld) 68.8 % Normal 36.0-75.0 [facility] Comment on above: Performed By: #### 2 [id number] #### [facility] [address] [place] [address] Platelet 304.0 E9/L Normal 150.0-500.0 [facility] Comment on above: Performed By: #### 2 [id number] #### [facility] [address] [place] [address] Platelet mean volume (Bld) [Entitic vol] 8.4 fL Normal 6.4-10.8 [facility] Comment on above: Performed By: #### 2 [id number] #### [facility] [address] [place] [address] RBC (Bld) [#/Vol] 3.7 E12/L Low 4.3-5.9 [facility] Comment on above: Performed By: #### 2 [id number] #### [facility] [address] [place] [address] WBC corrected for nucl RBC Auto (Bld) [#/Vol] 8.5 E9/L Normal 4.0-11.0 [facility] Comment on above: Performed By: #### 2 [id number] #### [facility] [address] [place] [address] CHEMISTRYOrdered By: SYSTEM SYSTEM on 08-09-2024 25-hydroxyvitamin [...] 08-09-2024 Albumin [Mass/Vol] 4.4 g/dL Normal 3.3-5.0 [facility] Comment on above: Performed By: #### 2 [id number] #### [facility] [address] [place] [address] Albumin/Globulin (S) [Mass conc ratio] 1.6 Normal 1.1-2.2 [facility] Comment on above: Performed By: #### 2 [id number] #### [facility] [address] [place] [address] ALP [Catalytic activity/Vol] 52 Int._Unit/L Normal 21-98 [facility] Comment on above: Performed By: #### 2 [id number] #### [facility] [address] [place] [address] ALT No additional P-5'-P [Catalytic activity/Vol] 14 Int._Unit/L Normal 6-46 [facility] Comment on above: Performed By: #### 2 [id number] #### [facility] [address] [place] [address] Anion gap [Moles/Vol] 11 mmol/L Normal 6-16 [facility] Comment on above: Performed By: #### 2 830498 #### [facility] [address] [place] [address] AST [Catalytic activity/Vol] 18 Int._Unit/L Normal 5-43 [facility] Comment on above: Performed By: #### 2 684210 #### [facility] [address] [place] [address] Bilirubin [Mass/Vol] 0.9 mg/dL Normal 0.0-1.1 [facility] Comment on above: Performed By: #### 2 729093 #### [facility] [address] [place] [address] Calcium [Mass/Vol] 8.9 mg/dL Normal 8.9-11.1 [facility] Comment on above: Performed By: #### 2 863575 #### [facility] [address] [place] [address] Chloride [Moles/Vol] 107 mmol/L Normal 101-111 [facility] Comment on above: Performed By: #### 2 442709 #### [facility] [address] [place] [address] CO2 [Moles/Vol] 27 mmol/L Normal 21-31 [facility] Comment on above: Performed By: #### 2 [id number] #### [facility] [address] [place] [address] Creatinine [Mass/Vol] 1.1 mg/dL Normal 0.5-1.3 [facility] Comment on above: Performed By: #### 2 725081 #### [facility] [address] [place] [address] Globulin (S) [Mass/Vol] 2.8 g/dL Normal 1.4-4.0 [facility] Comment on above: Performed By: #### 2 [id number] #### [facility] [address] [place] [address] Glucose [Mass/Vol] 105 mg/dL Normal 55-199 [facility] Comment on above: Performed By: #### 2 615602 #### [facility] [address] [place] [address] Potassium [Moles/Vol] 4.1 mmol/L Normal 3.5-5.3 [facility] Comment on above: Performed By: #### 2 [id number] #### [facility] [address] [place] [address] Protein [Mass/Vol] 7.2 g/dL Normal 6.0-7.8 [facility] Comment on above: Performed By: #### 2 069750 #### [facility] [address] [place] [address] Sodium [Moles/Vol] 141 mmol/L Normal 135-145 [facility] Comment on above: Performed By: #### 2 [id number] #### [facility] [address] [place] [address] Urea nitrogen [Mass/Vol] 15 mg/dL Normal 5-21 [facility] Comment on above: Performed By: #### 2 [id number] #### [facility] [address] [place] [address] Urea nitrogen/Creatinine [Mass ratio] 14 No Units Normal 10-20 [facility] Comment on above: Performed By: #### 2 [id number] #### [facility] [address] [place] [address] HEMATOLOGYOrdered By: SYSTEM SYSTEM on 08-09-2024 Basophils/100 [...] 08-09-2024 Cholesterol [Mass/Vol] 208 mg/dL High 120-200 [facility] Comment on above: Performed By: #### 2 [id number] #### [facility] [address] [place] [address] Cholesterol in HDL [Mass/Vol] 64 mg/dL Invalid Interpretation Code [facility] Comment on above: Result Comment: '>= 60 LOW RISK' '<= 40 HIGH RISK' Performed By: #### 2 [id number] #### [facility] [address] [place] [address] Cholesterol in LDL [Mass/Vol] 104 mg/dL Normal <=129 [facility] Comment on above: Performed By: #### 2 786903 #### [facility] [address] [place] [address] Cholesterol in VLDL [Mass/Vol] 36 mg/dL Normal 7-40 [facility] Comment on above: Performed By: #### 2 [id number] #### [facility] [address] [place] [address] Triglyceride [Mass/Vol] 182 mg/dL High <=149 [facility] Comment on above: Performed By: #### 2 [id number] #### [facility] [address] [place] [address] TSH With T4fr Reflexon 08-09 TSH Qn 2.85 m[IU]/L Normal 0.34-5.60 [facility] Comment on above: Performed By: #### 1 [id number] #### [facility] [address] [place] [address] U MA/Cr Ratioon 08-09-2024 Albumin DL <= 20 mg/L (U) [Mass/Vol] mg/dL Normal 0.0-1.9 [facility] Comment on above: Performed By: #### 1 [id number] #### [facility] [address] [place] [address] Albumin/Creatinine DL <= 20 mg/L (U) [Mass ratio] NOT CALCULATED Invalid Interpretation Code .0-30.0 [facility] Comment on above: Result Comment: 30-3 00 mg/g Cr indicates an increased risk for diabetic nephropathy. >300 mg/g Cr is consistent with clinical nephropathy. Performed By: #### 1 [id number] #### [facility] [address] [place] [address] U Creatinine 127.3 mg/dL Invalid Interpretation Code [facility] Comment on above: Performed By: #### 1 [id number] #### [facility] [address] [place] [address] Vit B12on 08-09-2024 Cobalamin (Vitamin B12) [Mass/Vol] 253 pg/mL Normal 50-1500 [facility] Comment on above: Performed By: #### 2 [id number] #### [facility] [address] [place] [address] Vitamin D 25 Hydroxyon 08-09 25-hydroxyvitamin D3 [Mass/Vol] 36.9 ng/mL Normal 30.0-100.0 [facility] Comment on above: Performed By: #### 5 [id number] #### [facility] [address] [place] [address] eGFRon 08-09-2024 eGFR 53 mL/min/1.73 m2 Low >=59 [facility] Comment on above: Performed By: #### 1 [id number] #### [facility] [address] [place] [address] Ambulatory Visit Summaryon 1 10-08-2023 Ambulatory Visit [...] 2023 8:40 AM EST With: Where: [address] [address]- Tuesday 8:45 AM EDT With: Anamaria Chinchilla MD Where: [address] [place] [address]- 2024 11:00 AM EST With: Where: [address] [address]- You Need to Complete the Following CBC [...] Hypercholesterolemia Hyperlipidemia (more content not included)... Normal [facility] Family Medicine Office/Clini c Noteon 08-07-2024 [...] : Living will, Medical durable power of regulatory attorney Location of Advance Directive : Family [...] use. 05/30/2023 14:07 - Neftaly Wolfe R: denies (Last Updated: 07/30/2024 09:55:03 EST by [...] limit social act? : Not at all Randall Martha Chaidez - 07/30/2024 9:48 EST Misc Health Risks [...] 0 SCORE Depression Screening Result : Negative Randall Martha Chaidez - 07/30/ (more content not included)... Normal [facility] Comment on above: Result Comment: Elec tronically Signed By: Christiano SHORT, Anamaria Saldivar.br\Date and Time Signed: 08/07/24 10:44 EST\.br\Electronically Co-Signed By: Martha Pereira\.kelly\Date and Time Co-Signed: 07/30/24 12:56 EST Ambulatory [...] 2023 8:40 AM EST With: Where: [address] [address]- Tuesday 8:45 AM EDT With: Anamaria Chinchilla MD Where: [address] [address]- 2024 11:00 AM EST With: Where: [address] [address]- You Need to Complete the [...] Chronic cough Duration: 7 Days Pickup at [facility] [id number] Unchanged amlodipine (amLODIPine 5 mg Tab) See [...] fatty a (more content not included)... Normal [facility] Ambulatory Visit Summary Ambulatory Visit Summary [...] 2023 8:40 AM EST With: Where: [address] [address]- Tuesday 8:45 AM EDT With: Anamaria Chinchilla MD Where: [address] [address]- 2024 11:00 AM EST With: Where: [place] [address]- You Need to Complete the Following CBC [...] Chronic cough Duration: 7 Days Pickup at [facility] [id number] Unchanged amlodipine (amLODIPine 5 mg Tab) See [...] fatty a (more content not included)... Normal [facility] Medicine Office/Clini c [place] 07-30-2024 Family Medicine Office/Clinic Note Family Medicine [...] humorously by the physician as looking like [place] cheese on X-rays. She uses a bone [...] day(s), # 21 cap(s), Refills(s) 0, Pharmacy: [facility] [id number], 162, cm, 07/30/24 10:07:00 EST, Height/Length Dosing, 75.8, kg, 07/30/24 10:07:00 EST, Weight Dosing CBC w/ Auto Diff TSH With T4fr Reflex Vitamin B12 Level Vitamin D 25 Hydroxy 2. Hypercholesterolemia (E78.00: Pure hypercholesterolemia, unspecified) As below. Ordered: benzonatate, 200 mg = 1 cap(s), Oral, TID, X 7 day(s), # 21 cap(s), Refills(s) 0, Pharmacy: [facility] [id number], 162, cm, 07/30/24 10:07:00 EST, Height/Length Dosing, 75.8, kg, 07/30/24 10:07:00 EST, Weight Dosing CBC w/ Auto Diff TSH With T4fr Reflex Vitamin B12 Level Vitamin D 25 Hydroxy 3. Hyperlipidemia (E78.5: Hyperlipidemia, unspecified) Continue on a statin as before. Ordered: benzonatate, 200 mg = 1 cap(s), Oral, TID, X 7 day(s), # 21 cap(s), Refills(s) 0, Pharmacy: [facility] [id number], 162, cm, 07/30/24 10:07:00 EST, Height/Length Dosing, [...] day(s), # 21 cap(s), Refills(s) 0, Pharmacy: [facility] [id number], 162, cm, 07/30/24 10:07:00 EST, Height/Length Dosing, 75.8, kg, 07/30/24 10:07:00 EST, Weight Dosing CBC w/ Auto Diff Comprehensive Metab (more content not included)... Normal [facility] Comment on above: Result Comment: Elec [...] feel free to contact me at extension [phone]. Thank you! Daly Joy, ALEXN, RN, CCM, CCDS, CCDS-O CDI Technical Service Engineer [place] [address] P: [phone] F: [phone] [email or web address] From: Christiano SHORT, Anamaria Harvey To: Benita MENJIVAR, Daly; Sent: 07/30/2024 15:17:44 EST Subject: RE: Pre-Visit Planning Caller Name: ISAURA HAYDEN; Caller Number: Adrian , M I could not address this today. Thanks Normal [facility] Medicine Office/Clini c Noteon 07-13-2024 [...] in 3-5 days Ordered: Rapid Strep POC [address]30[address] Follow-up No qualifying data available Patient Education Pharyngitis, Otmo-yt-Veiv Problem List/Past Medical History Ongoing Age-related osteoporosis [...] Strep POC Result: Negative (07/13/24 11:52:00) Normal [facility] Comment on above: Result Comment: Elec tronically Signed By: VIPUL OBANDO CNP\Date and Time Signed: 07/13/24 11:55 EST C Urineon 05-09-2024 Bacteria identified Cx Nom (U) Microbiology PROCEDURE: Urine Culture [R1] SOURCE: U CleanCatch BODY SITE: COLLECTED DATE/TIME: 05/07/2024 14:24 EDT RECEIVED DATE/TIME: 05/07/2024 17:50 EDT START DATE/TIME: 05/07/2024 17:50 EDT FREE TEXT SOURCE: Christiano SHORT, Anamaria Chinchilla MD, Anamaria Harvey FINAL [...] This test was performed at: [facility], [address] [place] [address], [facility] , , [facility] Comment on above: Performed By: #### 2 [id number] #### [facility] [address] [place] [address] Ambulatory Visit Summaryon 0 05-07-2024 Ambulatory Visit [...] Appointments Tuesday 10:30 AM EST With: Christiano SHOTR, Anamaria Harvey Where: [address] [address]- Tuesday 11:00 AM EST With: Where: [address] [address]- Medications What How Much When Instructions Unchanged [...] for choosing us for your care. Normal [facility] Medicine Office/Clini c Noteon 05-07-2024 Family [...] day(s), # 14 cap(s), Refills(s) 0, Pharmacy: [facility] [id number], 162, cm, 05/07/24 14:07:00 EDT, Height/Length Dosing, 76, kg, 05/07/24 14:07:00 EDT, Weight Dosing Body Mass Index (BMI) documented 3008F Current tobacco non-user 1036F Depression Screening Negative 3352F E&M of Est. Patient Low 20-29 Min 87194 Influenza immunization status assessed 1030F Medication list [...] Urnls Dip Stick Auto w/o Microscopy POC 70518 2. Non-smoker (Z78.9: Other specified health status) - Please continue to not smoke Ordered: doxycycline, 100 mg = 1 cap(s), Oral, BID, X 7 day(s), # 14 cap(s), Refills(s) 0, Pharmacy: [facility] [id number], 162, cm, 05/07/24 14:07:00 EDT, Height/Length Dosing, 76, kg, 05/07/24 14:07:00 EDT, Weight Dosing Body Mass Index (BMI) documented 3008F Current tobacco non-user 1036F Depression Screening Negative 3352F E&M of Est. Patient Low 20-29 Min 43644 Influenza immunization status assessed 1030F Medication list [...] day(s), # 14 cap(s), Refills(s) 0, Pharmacy: [facility] [id number], 162, cm, 05/07/24 14:07:00 EDT, Height/Length Dosing, 76, kg, 05/07/24 14:07:00 EDT, Weight Dosing Body Mass Index (BMI) documented 3008F Current tobacco non-user 1036F Depression Screening Negative 3352F E&M of Est. Patient Low 20-29 Min 16648 Influenza immunization status assessed 1030F Medication list [...] day(s), # 14 cap(s), Refills(s) 0, Pharmacy: [facility] [id number], 162, cm, 05/07/24 14:07:00 EDT, Height/Length Dosing, 76, kg, 05/07/24 14:07:00 EDT, Weight Dosing Body Mass Index (BMI) documented 3008F Current tobacco non-user 1036F Depression Screening Negative 3352F E&M of Est. Patient Low 20-29 Min [address]9719 Influenza immunization status assessed 1030F Medication list [...] with stage 3a (more content not included)... [facility] Comment on above: Result Comment: Elec tronically Signed By: Christiano SHORT, Anamaria Harvye\.br\Date and Time Signed: 05/07/24 14:35 EDT Dexa Scanson 02-08-2024 Dexa Scans [id number]#1.0 0TIFF [facility] Consultation Noteon 02-07-20 Consultation Note [id number] 60 [id number]#1.0 0TIFF [facility] RAD - MISCon 02-02-2024 RAD - MISC [id number] 60 [id number]#1.0 0TIFF [facility] RAD - MISC [id number] 60 [id number]#1.0 0TIFF [facility] Consultation Noteon 01-30-20 Consultation Note [id number] 60 [id number]#1.0 0TIFF [facility] Consultation Noteon 12-26-19 Consultation Note [id number]#1.0 0TIFF Normal [facility] RAD - MISCon 12-21-2023 RAD - MISC [id number] 50 [id number]#1.0 0TIFF Normal [facility] RAD - MISC [id number] 50 [id number]#1.0 0TIFF Normal [facility] Consultation Noteon 12-09-19 Consultation Note [id number]#1.0 0TIFF Normal [facility] Consultation Noteon 11-24-19 Consultation Note [id number]#1.0 0TIFF Normal [facility] Discharge Documentationon Discharge Documentation [id number]#1.0 0TIFF Normal [facility] Cytologyon 11-14-2023 Cytology Normal [facility] Comment on above: Result Comment: [facility] [address] [place] [address] Cytology Consultation Patient Name:ISAURA HAYDEN:1950 (Age: 73)Gender:FTaken:4Reported:11/16/2023 14:25Physician(s):Nabil Lord M.D. ([phone])Copy To: Rec. #:[id number]: #[id number] Final Cytologic Diagnosis Pelvic washings: No malignant cells identified. [facility]2023 [place] [address], License number: [id number].Electronically Signed Out By Edie Day MD Clinical History Thickened endometrium/ post menopausal bleeding/ cervical stenosis. Gross Description Received was 35mL of clear colorless fluid unfixed labeled as Catr[place], pelvic washings . CytoLyt added in lab. Unable to obtain cellblock, ThinPrep made. Source of Specimen Pelvic washings Non SERVICE PORTER ThinPrep Fee Code(s): 1; 05579628, 51330 Surgical Pathologyon 024 Surgical Pathology Normal [facility] Comment on above: Result Comment: [facility] [address] [place] [address] Surgical Pathology Consultation Patient Name:ISAURA HAYDEN:1950 (Age: 73)Gender:FTaken:4Reported:11/16/2023hysician(s):Nabil Lord M.D. ([phone])Copy To: Rec. #:[id number]: #[id number] Final Pathologic Diagnosis Uterus, cervix, bilateral fallopian tubes, bilateral ovaries, TAHBSO: Cervix with no significant histopathologic abnormality Endometrium with cystic atrophy Myometrium with adenomyosis Bilateral adnexa with no significant histopathologic abnormality Report Electronically Signed Out nsk/11/16/2023Edie Day MD Interpretation performed at [facility], [address] [place] [address], License number: [id number]. Clinical History Thickened endometrium, postmenopausal bleeding, cervical [...] ovary L-N Remainder of endometrium (14, ss, [id number], A- K, m6) MONICO/MD kilgore/11/14/2023GR Specimen(s) Received Uterus, cervix, bilateral fallopian tubes, bilateral ovaries Fee Codes(s): 1; 07972 Consultation Noteon 11-10-19 Consultation Note [id number]#1.0 0TIFF Normal [facility] CBC AND AUTO DIFFon 11-09-19 ABSOLUTE BASOPHIL 0.1 X10E9/L Normal 0.0-0.2 [facility] Comment on above: Performed By: #### C BCA, CMP #### [facility] ([id number]) [address], [address] [place] [address] ABSOLUTE NEUTROPHIL 3.1 X10E9/L Normal 1.5-6.6 [facility] Comment on above: Performed By: #### C BCA, CMP #### [facility] ([id number]) [address], [address] [place] [address] Basophils/100 WBC (Bld) 0.9 % Normal [facility] Comment on above: Performed By: #### C REBEKA, CMP #### [facility] ([id number]) [address] [address] [place] [address] Eosinophils (Bld) [#/Vol] 0.2 10*3/uL Normal 0.0-0.4 [facility] Comment on above: Performed By: #### C BCA, CMP #### [facility] ([id number]) [address], [facility] [address] [place] [address] Eosinophils/100 WBC (Bld) 4.3 % Normal [facility] Comment on above: Performed By: #### C BCA, CMP #### [facility] ([id number]) [address], [address] [place] [address] Erythrocyte distribution width (RBC) [Ratio] 13.1 % Normal 11.5-15.0 [facility] Comment on above: Performed By: #### C BCA, CMP #### [facility] ([id number]) [address] [address] [place] [address] Hematocrit (Bld) [Volume fraction] 35.6 % Normal 35-47 [facility] Comment on above: Performed By: #### C BCA, CMP #### [facility] ([id number]) [address], [address] [place] [address] Hemoglobin (Bld) [Mass/Vol] 12.4 g/dL Normal 11.7-15.5 [facility] Comment on above: Performed By: #### C BCA, CMP #### [facility] ([id number]) [address], [address] [place] [address] Lymphocytes (Bld) [#/Vol] 1.7 10*3/uL Normal 1.0-3.5 [facility] Comment on above: Performed By: #### C REBEKA, CMP #### [facility] ([id number]) [address], [facility] [address] [place] [address] Lymphocytes/100 WBC (Bld) 31.2 % Normal [facility] Comment on above: Performed By: #### C REBEKA, CMP #### [facility] ([id number]) [address], [address] [place] [address] MCH (RBC) [Entitic mass] 33.3 pg Normal 27-34 [facility] Comment on above: Performed By: #### C REBEKA, CMP #### [facility] ([id number]) [address], [address] [place] [address] MCHC (RBC) [Mass/Vol] 34.7 g/dL Normal 32-36 [facility] Comment on above: Performed By: #### C BCA, CMP #### [facility] ([id number]) [address] [place] [address] MCV (RBC) [Entitic vol] 96 fL Normal 80-100 [facility] Comment on above: Performed By: #### C BCA, CMP #### [facility] ([id number]) [address], [address] [place] [address] Monocytes (Bld) [#/Vol] 0.5 10*3/uL Normal 0-0.9 [facility] Comment on above: Performed By: #### C BCA, CMP #### [facility] ([id number]) [address], [address] [place] [address] Monocytes/100 WBC (Bld) 8.2 % Normal [facility] Comment on above: Performed By: #### C BCA, CMP #### [facility] ([id number]) [address], [address] [place] [address] Neutrophils/100 WBC (Bld) 55.4 % Normal [facility] Comment on above: Performed By: #### C BCA, CMP #### [facility] ([id number]) [address], [address] [place] [address] Platelet mean volume (Bld) [Entitic vol] 8.2 fL Normal 7-12 [facility] Comment on above: Performed By: #### C BCA, CMP #### [facility] ([id number]) [address], [address] [place] [address] Platelets (Bld) [#/Vol] 284 10*3/uL Normal 150-450 [facility] Comment on above: Performed By: #### C BCA, CMP #### [facility] ([id number]) [address], [address] [place] [address] RBC COUNT 3.72 X10E12/L Low 3.80-5.20 [facility] Comment on above: Performed By: #### C BCA, CMP #### [facility] ([id number]) [address], [address] [place] [address] WBC (Bld) [#/Vol] 5.6 10*3/uL Normal 4.0-11.0 [facility] Comment on above: Performed By: #### C BCA, CMP #### [facility] ([id number]) [address], [address] [place] [address] COMPREHENSIVE METABOLIC PANE Rashi 11-09-2023 Albumin [Mass/Vol] 4.5 g/dL Normal 3.2-5.3 [facility] Comment on above: Performed By: #### C BCA, CMP #### [facility] ([id number]) [address], [address] [place] [address] ALP [Catalytic activity/Vol] 48 U/L Normal 39-130 [facility] Comment on above: Performed By: #### C BCA, CMP #### [facility] ([id number]) [address] [place] [address] ALT [Catalytic activity/Vol] 14 U/L Normal 0-31 [facility] Comment on above: Performed By: #### C BCA, CMP #### [facility] ([id number]) [address], [address] [place] [address] Anion gap [Moles/Vol] 9 mmol/L Normal 5-15 [facility] Comment on above: Performed By: #### C BCA, CMP #### [facility] ([id number]) [address] [place] [address] AST [Catalytic activity/Vol] 20 U/L Normal 0-41 [facility] Comment on above: Performed By: #### C BCA, CMP #### [facility] ([id number]) [address] [place] [address] Bilirubin [Mass/Vol] 0.5 mg/dL Normal 0.3-1.2 [facility] Comment on above: Performed By: #### C BCA, CMP #### [facility] ([id number]) [address] [place] [address] Calcium [Mass/Vol] 9.2 mg/dL Normal 8.5-10.5 [facility] Comment on above: Performed By: #### C BCA, CMP #### [facility] ([id number]) [address] [address] [place] [address] Chloride [Moles/Vol] 106 mmol/L Normal 98-109 [facility] Comment on above: Performed By: #### C BCA, CMP #### [facility] ([id number]) [address] [address] [place] [address] CO2 [Moles/Vol] 28 mmol/L Normal 22-32 [facility] Comment on above: Performed By: #### C BCA, CMP #### [facility] ([id number]) [address] [address] [place] [address] Creatinine [Mass/Vol] 1.17 mg/dL High 0.40-1.00 [facility] Comment on above: Result Comment: METH OD TRACEABLE TO IDMS STANDARD Performed By: #### C BCA, CMP #### [facility] ([id number]) [address] [address] [place] [address] GFR/1.73 sq M.predicted among non-blacks MDRD (S/P/Bld) [Vol rate/Area] 50 mL/min/{1.73_m2} Low >59 [facility] Comment on above: Result Comment: Reported eGFR is based on the CKD-EPI 2020 equation that does not use a race coefficient. Performed By: #### C BCA, CMP #### [facility] ([id number]) [address] [address] [place] [address] Glucose [Mass/Vol] 110 mg/dL High 65-99 [facility] Comment on above: Performed By: #### C BCA, CMP #### [facility] ([id number]) [address] [address] [place] [address] Potassium [Moles/Vol] 4.1 mmol/L Normal 3.5-5.0 [facility] Comment on above: Performed By: #### C BCA, CMP #### [facility] ([id number]) [address] [address] [place] [address] Protein [Mass/Vol] 7.2 g/dL Normal 6.0-8.0 [facility] Comment on above: Performed By: #### C BCA, CMP #### [facility] ([id number]) [address] [place] [address] Sodium [Moles/Vol] 143 mmol/L Normal 134-146 [facility] Comment on above: Performed By: #### C BCA, CMP #### [facility] ([id number]) [address] [place] [address] Urea nitrogen [Mass/Vol] 18 mg/dL Normal 5-27 [facility] Comment on above: Performed By: #### C BCA, CMP #### [facility] ([id number]) [address] [place] [address] XR CHEST 2 VWSon 11-09-2023 XR CHEST 2 VWS XR CHEST 2 VWS History: Preop testing Exam/Technique: PA and lateral chest Comparison: None Findings: There is no evidence of active pulmonary or pleural disease. Cardiac and mediastinal contours are within normal limits. IMPRESSION: No evidence of active pulmonary disease demonstrated. Finalized by Lewis Lyn MD on 11/09/2023 10:52 AM Normal [facility] Consultation Noteon 10-25-19 Consultation Note [id number]#1.0 0TIFF Normal [facility] Consultation Noteon 10-03-19 Consultation Note [id number]#1.0 0TIFF Normal [facility] RAD - MISCon 10-03-2023 RAD - MISC [id number]#1.0 0TIFF Normal [facility] Consultation Noteon 09-29-19 Consultation Note [id number]#1.0 0TIFF Normal [facility] Consultation Noteon 09-21-19 Consultation Note [id number]#1.0 0TIFF Normal [facility] Dexa Scanson 09-21-2023 Dexa Scans [id number]#1.0 0TIFF Normal [facility] Consultation Noteon 09-12-19 Consultation Note [id number]#1.00 TIFF Normal [facility] Patient Logson 09-02-2023 Patient Logs [id number]#1.00 TIFF Normal [facility] Ambulatory Visit Summaryon 0 09-01-2023 Ambulatory [...] AM EST With: Anamaria Chinchilla MD Where: [facility] [address] [place], [place] [address]- \.br\ Medications\.br\ What How Much When Instructions\.br\ [...] for choosing us for your care.\.br\ \.br\ [facility] Consultation Noteon 09-01-19 Consultation Note [id number]#1.0 0TIFF Normal [facility] Family Medicine Office/Clini c Noteon 09-01-2023 Family Medicine Office/Clinic Note Chief Complaint high blood pressure HPI Staff Dr. Chinhcilla patient presents for high blood pressure. Patient [...] 96.3 fL (05/11/23) Chloride: 108 mmol/L (05/11/23) Park Absolute: 0.4 E9/L (05/11/23) CO2: 27 mmol/L (05/11/23) Park Auto: 7.8 % (05/11/23) Creatinine: 1.3 mg/dL [...] Ongoing Ag (more content not included)... Normal [facility] Comment on above: Result Comment: Elec [...] Spices. Seasoni (more content not included)... Normal [facility] Consultation Noteon 08-24-19 24 Consultation Note [id number]#1.0 0TIFF [facility] RAD - CT Reporton 08-24-2023 RAD - CT Report [id number]#1.0 0TIFF [facility] Operative Reporton Operative Report [id number]#1.0 0TIFF Normal [facility] Patient Correspondenceon Patient Correspondence [id number]#1.0 0TIFF [facility] Provider Letteron 08-12-2023 Provider Letter [address] [place] [address] August 12, 2023 ISAURA METZGERHOLDER [address] [place] [id number] : [address] Das, The above patient has been evaluated at your request for preoperative clearance. After assessment of available pertinent labs and diagnostic tests, I feel this patient is medically optimized for surgery. Final discretion of whether the patient is cleared for surgery remains up to the surgeon/anesthesiologi st. Thank you, YISEL Vásquez [facility] Ambulatory Visit Summaryon 1 10-12-2022 Ambulatory Visit [...] Follow-Up Appointments Tuesday 10:30 AM EST With: Anamaira Chinchilla MD Where: [facility] Normal [address] [place], [place] [id number]- \.br\ Medications\.br\ What How Much When Instructions\.br\ [...] for choosing us for your care.\.br\ \.br\ [place] [facility] Family Medicine Office/Clini c [place] 08-11-2023 Family Medicine Office/Clinic Note HPI Staff [...] Elec tronically Signed By: Christiano SHORT, Anamaria Jacobsonbr\Date and Time Signed: 08/11/23 12:57 EST CHEMISTRYOrdered [...] Normal 6.0 - 7.8 gm/dL [facility] Remisol Sodium [Moles/Vol] 141 mmol/L Normal 135 - 145 mmol/L FT [facility] Urea nitrogen [Mass/Vol] 21 mg/dL Normal 5 - 21 mg/dL FT [facility]isol Urea nitrogen/Creatinine [Mass ratio] 16 mg/mg Normal 10 - 20 FT [facility] HEMATOLOGYOrdered By: SYSTEM SYSTEM on 05-11-2023 [...] PM) Normal Negative FT UA Auto SS Dresbach.plasma/Lith ium.RBC (Bld) [Mass ratio] 0-3 /HPF Normal [...] Desc Clean Catch (05/11/23 12:05 PM) Normal [facility] UA Auto SS Urobilinogen Qn (U) 0.0082410 {Leon'U}/dL Normal 0.0 - 1.0 EU/dL FT UA Auto SS WBC Auto Ql (U) 1+ *ABN* (05/11/23 12:05 PM) Invalid Interpretation Code Negative FT UA Auto SS WBC LM.HPF (Urine sed) [#/Area] 0-5 /HPF Normal 0-5/HPF FT UA Auto SS CULTURE URINEon 07-06-2022 CULTURE URINE Culture Observations : LIGHT GROWTH OF MIXED GENITAL NAN. NO POTENTIAL PATHOGENS SEEN. Normal [facility] Comment on above: Performed By: #### U RCX #### [facility] [address] [place] [address] Dr. Melchor Brock UA (CLEAN/CATCH) MICROSCOPIC IF INDICATEon 07-06-2022 Bilirubin Ql (U) Negative Normal NEGATIVE [facility] Comment on above: Performed By: #### U MICRO, UARMICR #### [facility] [address] [place] [address] Dr. Melchor Brock Clarity (U) CLEAR Normal CLEAR [facility] Comment on above: Performed By: #### U MICRO, UARMICR #### [facility] [address] [place] [address] Dr. Melchor Brock Color (U) LT. YELLOW Normal YELLOW [facility] Comment on above: Performed By: #### U MICRO, UARMICR #### [facility] [address] [place] [address] Dr. Melchor Brock Glucose Ql (U) Negative Normal NEGATIVE [facility] Comment on above: Performed By: #### U MICRO, UARMICR #### [facility] [address] [place] [address] Dr. Melchor Brock Hemoglobin Ql (U) TRACE-INTACT Abnormal NEGATIVE [facility] Comment on above: Performed By: #### U MICRO, UARMICR #### [facility] [address] [place] [address] Dr. Melchor Brock Ketones Ql (U) Negative Normal NEGATIVE [facility] Comment on above: Performed By: #### U MICRO, UARMICR #### [facility] [address] [place] [address] Dr. Melchor Brock LEUKOCYTES TRACE Abnormal NEGATIVE [facility] Comment on above: Performed By: #### U MICRO, UARMICR #### [facility] [address] [place] [address] Dr. Melchor Brock Nitrite Ql (U) Negative Normal NEGATIVE [facility] Comment on above: Performed By: #### U MICRO, UARMICR #### [facility] [address] [place] [address] Dr. Melchor Brock pH (U) 6.0 [pH] Normal 5-9 [facility] Comment on above: Performed By: #### U MICRO, UARMICR #### [facility] [address] [place] [address] Dr. Melchor Brock SPEC GRAVITY 1.020 Normal 1.005-<=1.025 [facility] Comment on above: Performed By: #### U MICRO, UARMICR #### [facility] [address] [place] [address] Dr. Melchor Brock UA PROTEIN Negative Normal NEGATIVE/ TRACE [facility] Comment on above: Performed By: #### U MICRO, UARMICR #### [facility] [address] [place] [address] Dr. Melchor Brock UR MICRO IND INDICATED Normal [facility] Comment on above: Performed By: #### U MICRO, UARMICR #### [facility] [address] [place] [address] Dr. Melchor Brock Urobilinogen Qn (U) 0.2 {Leon'U}/dL Normal 0.2 - 1. 0 [facility] Comment on above: Performed By: #### U MICRO, UARMICR #### [facility] [address] [place] [address] Dr. Melchor Brock URINE MICROSCOPIC ONLYon BACTERIA NONE SEEN Normal NONE SEEN [facility] Comment on above: Performed By: #### G SHON, LIPID #### [facility] [address] [place] [address] Dr. Melchor Brock Bacteria identified Cx Nom (U) CX ALREADY ORDERED Normal [facility] Comment on above: Performed By: #### G SHON, LIPID #### [facility] [address] [place] [address] Dr. Mlechor Brock CAST NONE SEEN Normal NONE SEEN [facility] Comment on above: Performed By: #### G SHON, LIPID #### [facility] [address] [place] [address] Dr. Melchor Brock Crystals LM Nom (Urine sed) NONE SEEN Normal NONE SEEN [facility] Comment on above: Performed By: #### G SHON, LIPID #### [facility] [address] [place] [address] Dr. Melchor Brock Epithelial cells LM Ql (Urine sed) RARE Normal NONE SEEN /RARE [facility] Comment on above: Performed By: #### G SHON, LIPID #### [facility] [address] [address] [address] Melchor Brock MUCOUS NONE SEEN Normal NONE SEEN [facility] Comment on above: Performed By: #### G SHON, LIPID #### [facility] [address] [address] [address] Melchor Brock RBC 0-2 Normal 0-2 [facility] Comment on above: Performed By: #### G SHON, LIPID #### [facility] [address] [address] [address] Melchor Brock WBC 0-2 Abnormal NONE SEEN [facility] Comment on above: Performed By: #### G SHON, LIPID #### [facility] [address] [address] [address] Melchor Brock MG MAMM SCREEN 3D SARAHI CADon 03-15-2022 MG MAMM SCREEN 3D SARAHI CAD Patient: ISAURA HAYDEN Exam Date: 03/15/2022 : 1950 Gender:F Ordering : DR FARA BOOKER . Admission #: [id number] Family : Order #: [id number] CLICK HERE TO VIEW EXAM RADIOLOGY REPORT [...] cancer at age 72. LOCATION: [facility] BREAST COMPOSITION: Heterogeneously dense,which may obscure [...] Cárdenas M.D. on 03/15/2022 at 11:41 Normal [facility] GLUCOSE BLOODon 02-09-2022 Glucose [Mass/Vol] 99 mg/dL Normal 74-106 [facility] Comment on above: Performed By: #### G SHON, LIPID #### [facility] [address] [address] [address] Melchor Brock LIPID PROFILEon 02-09-2022 CHOL-HDL RATIO NORM SEE BELOW Normal [facility] Comment on above: Result Comment: 3.3 - 4.4 LOW RISK 4.4 - 7.1 AVERAGE RISK 7.1 - 11.0 MODERATE RISK >11.0 HIGH RISK Performed By: #### G SHON, LIPID #### [facility] [address] [address] [address] Melchor Brock Cholesterol [Mass/Vol] 202 mg/dL Critically high <=200 [facility] Comment on above: Performed By: #### G SHON, LIPID #### [facility] [address] [address] [address] Melchor Brock Cholesterol in HDL [Mass/Vol] 56 mg/dL Normal 40-60 [facility] Comment on above: Performed By: #### G SHON, LIPID #### [facility] [address] [address] [address] Melchor Brock Cholesterol in LDL [Mass/Vol] 112.6 mg/dL Normal [facility] Comment on above: Performed By: #### G SHON, LIPID #### [facility] [address] [address] [address] Melchor Brock Cholesterol.total/C holesterol in HDL [Mass ratio] 3.6 {ratio} Normal [facility] Comment on above: Performed By: #### G SHON, LIPID #### [facility] [address] [address] [address] Melchor Brock HDL NORMAL > or = 60 mg/dl - LO W CARDIOVASCULAR RISK <40 mg/dl - HIGH CARDIOVASCULAR RISK Normal [facility] Comment on above: Performed By: #### G SHON, LIPID #### [facility] [address] [place] [address] Dr. Melchor Brock LDL CALC NORMAL SEE BELOW Normal [facility] Comment on above: Result Comment: <100 mg/dl OPTIMAL 100 - 129 mg/dl NEAR OR ABOVE OPTIMAL 130 - 159 mg/dl BORDERLINE HIGH 160 - 189 mg/dl HIGH >190 mg/dl VERY HIGH Performed By: #### G SHON, LIPID #### [facility] [address] [place] [address] Dr. Melchor Brock Triglyceride [Mass/Vol] 167 mg/dL Critically high <=150 [facility] Comment on above: Performed By: #### G SHON, LIPID #### [facility] [address] [place] [address] Dr. Melchor Brock VLDL CALC 33.4 mg/dL Normal [facility] Comment on above: Performed By: #### G SHON, LIPID #### [facility] [address] [place] [address] Dr. Melchor Brock LIPID PROFILEon 11-05-2021 CHOL-HDL RATIO NORM SEE BELOW Normal [facility] Comment on above: Result Comment: 3.3 - 4.4 LOW RISK 4.4 - 7.1 AVERAGE RISK 7.1 - 11.0 MODERATE RISK >11.0 HIGH RISK Performed By: #### L IPID, BMP #### [facility] [address] [place] [address] Dr. Melchor Brock Cholesterol [Mass/Vol] 244 mg/dL Critically high <=200 [facility] Comment on above: Performed By: #### L IPID, BMP #### [facility] [address] [place] [address] Dr. Melchor Brock Cholesterol in HDL [Mass/Vol] 60 mg/dL Normal 40-60 [facility] Comment on above: Performed By: #### L IPID, BMP #### [facility] [address] [place] [address] Dr. Melchor Brock Cholesterol in LDL [Mass/Vol] 158.4 mg/dL Normal [facility] Comment on above: Performed By: #### L IPID, BMP #### [facility] [address] [place], [place] [id number] Dr. Melchor Brock Cholesterol.total/C holesterol in HDL [Mass ratio] 4.1 {ratio} Normal [facility] Comment on above: Performed By: #### L IPID, BMP #### [facility] [address] [place] [address] Dr. Melchor Brock HDL NORMAL > or = 60 mg/dl - LO W CARDIOVASCULAR RISK <40 mg/dl - HIGH CARDIOVASCULAR RISK Normal [facility] Comment on above: Performed By: #### L IPID, BMP #### [facility] [address] [place] [address] Dr. Melchor Brock LDL CALC NORMAL SEE BELOW Normal [facility] Comment on above: Result Comment: <100 mg/dl OPTIMAL 100 - 129 mg/dl NEAR OR ABOVE OPTIMAL 130 - 159 mg/dl BORDERLINE HIGH 160 - 189 mg/dl HIGH >190 mg/dl VERY HIGH Performed By: #### L IPID, BMP #### [facility] [address] [place] [address] Dr. Melchor Brock Triglyceride [Mass/Vol] 128 mg/dL Normal <=150 [facility] Comment on above: Performed By: #### L IPID, BMP #### [facility] [address] [place] [address] Dr. Melchor Brock VLDL CALC 25.6 mg/dL Normal [facility] Comment on above: Performed By: #### L IPID, BMP #### [facility] [address] [place] [address] Dr. Melchor Brock PROF CHEM 8 (BAS METB)on Anion gap [Moles/Vol] 10.7 mmol/L Normal [facility] Comment on above: Performed By: #### L IPID, BMP #### [facility] [address] [place] [address] Dr. Melchor Brock Calcium [Mass/Vol] 7.8 mg/dL Critically low 8.4-10.2 [facility] Comment on above: Performed By: #### L IPID, BMP #### [facility] [address] [place] [address] Dr. Melchor Brock Chloride [Moles/Vol] 103 mmol/L Normal 98-107 [facility] Comment on above: Performed By: #### L IPID, BMP #### [facility] [address] [place] [address] Dr. Melchor Brock CO2 [Moles/Vol] 28.4 mmol/L Normal 22.0-30.0 [facility] Comment on above: Performed By: #### L IPID, BMP #### [facility] [address] [place] [address] Dr. Melchor Brock Creatinine [Mass/Vol] 1.05 mg/dL Critically high 0.52-1.04 [facility] Comment on above: Performed By: #### L IPID, BMP #### [facility] [address] [place] [address] Dr. Melchor Brock EGFR-AF LEBANESE >60 Normal >=60 [facility] Comment on above: Performed By: #### L IPID, BMP #### [facility] [address] [place] [address] Dr. Melchor Brock EGFR-NON AF LEBANESE 52 mL/min/1.73m2 Critically low >=60 [facility] Comment on above: Performed By: #### L IPID, BMP #### [facility] [address] [place] [address] Dr. Melchor Brock Glucose [Mass/Vol] 98 mg/dL Normal 74-106 [facility] Comment on above: Performed By: #### L IPID, BMP #### [facility] [address] [place] [address] Dr. Melchor Brock Potassium [Moles/Vol] 4.1 mmol/L Normal 3.4-5.0 [facility] Comment on above: Performed By: #### L IPID, BMP #### [facility] [address] [place] [address] Dr. Melchor Brock Sodium [Moles/Vol] 138 mmol/L Normal 137-145 [facility] Comment on above: Performed By: #### L IPID, BMP #### [facility] [address] [place] [address] Dr. Melchor Brock Urea nitrogen [Mass/Vol] 15.0 mg/dL Normal 7.0-17.0 [facility] Comment on above: Performed By: #### L IPID, BMP #### [facility] [address] [address] [address] Melchor Brock Urea nitrogen/Creatinine [Mass ratio] 14.3 mg/mg Normal [facility] Comment on above: Performed By: #### L IPID, BMP #### [facility] [address] [address] [address] Melchor Brock ECHOCARDIO M/2D COMPLETEon 0 10-05-2021 ECHOCARDIO M/2D COMPLETE Patient: ISAURA HAYDEN Exam Date: 10/05/2021 : 1950 Gender:F Ordering : DR ANJELICA GAMBINO . Admission #: [id number] Family : Order #: [id number] CLICK HERE TO VIEW EXAM ECHOCARDIOGRAM REPORT [...] Area(A4C): 20.70 cm2 Left Atrium Systolic Volume(A2C): 41926 mm3 Left Atrium Systolic Volume(A4C): 58780 mm3 Mitral Valve MV E to A Ratio: 1.10 Deceleration [place]: 7410 mm/s2 Mitral Valve A-Wave Peak Velocity: [...] Coy Dove M.D. on 10/06/2021 at 08:32 [facility] XR DEXA BONE DENSITYon 09-18 XR DEXA [...] by: KVNG TILLMAN Date: 2021-09-18 10:56 Normal [facility] DEXA BONE DENSITY AXIAL SKEL ETONon [...] necksInterpreted by:ARLEY Valenciaigned by:Lora Mondragon MD09/12/18Final result [facility] DIGITAL SCREEN BILATERAL on 09-12-2017 [facility] DIGITAL SCREEN BILATERAL REPORT: BILATERAL [...] NEGATIVE)Interpreted by:ARLEY Valenciaigned by:Lora Mondragon MD09/12/18Final result [facility] Vital Signs Date Time Vital Sign Value Performing Clinician Facility 02-27-2025 16:08-0400 Body height 162.56 cm [facility] 02-27-2025 16:08-0400 Body mass index (BMI) [Ratio] 28.84 kg/m2 [facility] 02-27-2025 16:08-0400 Body surface area Derived from formula 1.85 m2 [facility] 02-27-2025 16:08-0400 Body weight 76.2 kg [facility] 02-27-2025 16:08-0400 Diastolic blood pressure 62 mm[Hg] [facility] 02-27-2025 16:08-0400 Heart rate 68 /min [facility] 02-27-2025 16:08-0400 Systolic blood pressure 106 mm[Hg] [facility] 08-28-2024 09:11-0500 Body mass index (BMI) [Ratio] [...] Phone: [facility] 12-27-2023 10:45-0400 Body height 162.6 cm Mary GOMEZ Work Phone: [facility] 12-27-2023 10:45-0400 Body mass index (BMI) [Ratio] 28.65 kg/m2 Mary Pennington PA [facility] Phone[facility] 12-27-2023 10:45-0400 Body temperature 97.81 [degF] [facility]ton [facility] 12-27-2023 10:45-0400 Body weight 75.75 kg Mary Pennington PA Work Phone: [facility] 12-27-2023 10:45-0400 Diastolic blood pressure 71 mm[Hg] Mary Pennington PA [facility] 12-27-2023 10:45-0400 Heart rate 57 /min Mary Pennington PA [facility] 12-27-2023 10:45-0400 Respiratory rate 16 /min Mary Pennington PA Work Phone: [facility] [employer] [employer] 12-27-2023 10:45-0400 SaO2% (BldA) [Mass fraction] 99 % Mary Pennington PA [facility] 12-27-2023 10:45-0400 Systolic blood pressure 148 mm[Hg] Mary Pennington PA [facility] 11-29-2023 10:41-0400 Body height 162.6 cm Mary Pennington PA [facility] Phone[facility] 11-29-2023 10:41-0400 Body mass index (BMI) [Ratio] 28.48 kg/m2 Mary Pennington PA Work Phone[facility] 11-29-2023 10:41-0400 Body temperature 97.81 [degF] Mary Pennington PA Work Phone[facility] 11-29-2023 10:41-0400 Body weight 75.3 kg Mary Pennington PA [facility] Phone[facility] 11-29-2023 10:41-0400 Diastolic blood pressure 71 mm[Hg] Mary Pennington PA Work Phone: [facility] 11-29-2023 10:41-0400 Heart rate 57 /min Mary Pennington PA Work Phone: [facility] 11-29-2023 10:41-0400 Respiratory rate 16 /min Mary Sigalane PA Work Phone: [facility] 11-29-2023 10:41-0400 SaO2% (BldA) [Mass fraction] 100 % Mary Pennington PA Work Phone: [facility] 11-29-2023 10:41-0400 Systolic blood pressure 142 mm[Hg] Mary Sigalane PA Work Phone: [facility] 11-07-2023 10:32-0400 Body height 162.6 cm [facility] 11-07-2023 10:32-0400 Body mass index (BMI) [Ratio] 28.15 kg/m2 [facility] 11-07-2023 10:32-0400 Body weight 74.39 kg [facility] 10-26-2023 14:38-0500 Body temperature 98.29 [degF] Nabil Lord MD Work Phone: [facility] 10-26-2023 14:38-0500 Diastolic blood pressure 90 mm[Hg] Nabil Lord MD Work Phone: [facility] 10-26-2023 14:38-0500 Heart rate 67 /min Nabil Lord MD Work Phone: [facility] 10-26-2023 14:38-0500 SaO2% (BldA) [Mass fraction] 98 % Nabil Lord MD Work Phone: [facility] 10-26-2023 14:38-0500 Systolic blood pressure 158 mm[Hg] Nabil Lord MD Work Phone: [facility] 10-26-2023 14:35-0500 Body mass index (BMI) [Ratio] 29.18 kg/m2 Nabil Lord MD Work Phone: [facility] 10-26-2023 14:35-0500 Body weight 77.11 kg Nabil Lord MD Work Phone: [facility] Pint Please Encounters Encounter Date Encounter Type Care Provider Facility Start: 08-01-2025 ambulatory Anamaria Chinchilla Facility :[facility] [place] Start: 04-12-2025 End: 04-12-2025 Clinisync Result Encounter Bentley Pippa DO Work Phone: [facility] External [facility] Unsolicited Start: 04-12-2025 End: 04-12-2025 Clinisync Result Encounter Bentley Pippa DO Work Phone: [facility] External [facility] Unsolicited Start: 02-27-2025 Split Srvc Kaitlin Reza rne Other [facility] Start: 01-28-2025 End: 01-28-2025 ambulatory Anamaria Chinchilla Facility:[facility] [place] Start: 10-19-2024 End: 10-19-2024 Lab Drop off Violet L Leonidas [facility] Start: 10-19-2024 End: 10-19-2024 ambulatory Violet L Leonidas Facility:[facility] Start: 10-05-2024 End: 10-05-2024 Clinisync Result Encounter Bentley Pippa DO Work Phone: [facility] External [facility] Unsolicited Start: 10-05-2024 End: 10-05-2024 Clinisync Result Encounter Bentley Pippa DO Work Phone: [facility] External [facility] Unsolicited Start: 09-17-2024 End: 09-17-2024 ambulatory Violet L Leonidas Facility:[facility]ue Start: 09-11-2024 End: 09-11-2024 ambulatory Kushal Keith Facility:[facility] Start: 09-10-2024 End: 09-10-2024 ambulatory Anamaria Chinchilla Facility:[facility] [place] Start: 08-28-2024 End: 08-28-2024 Bamboo flowsheet [...] Start: 08-27-2024 End: 08-27-2024 ambulatory Anamaria Chinchilla Facility:[facility] [place] Start: 08-09-2024 End: 08-09-2024 Lab Drop off Anamaria Chinchilla [facility] Start: 08-09-2024 End: 08-09-2024 ambulatory Anamaria Chinchilla Facility:[facility] Start: 07-30-2024 End: 07-30-2024 ambulatory MD Anamaria Chinchilla Facility: [facility] [place] Start: 07-30-2024 End: 07-30-2024 ambulatory MD Anamaria Chinchilla Facility: [facility] [place] Start: 07-13-2024 End: 07-13-2024 ambulatory VIPUL OBANDO Facility: [facility] [place] Start: 05-07-2024 End: 05-07-2024 Lab Drop off Anamaria Chinchilla [facility] Start: 05-07-2024 End: 05-07-2024 ambulatory MD Anamaria Chinchilla Facility:[facility] Start: 12-27-2023 End: 12-27-[address] [facility] Start: 12-27-2023 End: 12-27-2023 Postop follow up visit related to original px Mary Pennington PA Work Phone: [facility] - Medical Oncology Comment on above: Encounter for postop erative care (Primary Dx) Start: 11-29-2023 End: 11-29-2023 [facility] Start: 11-29-2023 End: 11-29-2023 Postop follow up visit related to original px Mary Pennington PA Work Phone: [facility] - [facility] Oncology Comment on above: Encounter for postop erative care (Primary Dx) Start: 11-14-2023 End: 11-14-2023 Evaluation and management of inpatient [facility] Start: 11-14-2023 End: 11-14-2023 Evaluation and management of inpatient [facility] Start: 11-09-2023 Encounter for other preprocedural examination [facility] Start: 11-09-2023 End: 11-10-2023 ambulatory [facility] Start: 11-07-2023 End: 11-07-2023 Evaluation and management of inpatient ANJELICA GAMBINO [facility] Start: 11-07-2023 End: 11-07-2023 Admission to [facility] Phone Call Provider 2 [facility]-Ad[facility] On [facility] Start: 10-28-2023 Patient encounter status Nabil Lord MD Work Phone: [facility] Start: 10-28-2023 Telephone encounter Nabil andersen MD Work Phone: [facility] Start: 10-26-2023 End: 10-26-2023 ambulatory NABIL Britton CAROLYN [facility] Start: 10-26-2023 End: 10-26-2023 Office outpatient new 60 minutes Nabil Lord MD Work Phone: [facility] Oncology Comment on above: Endometrial thickeni ng on ultrasound (Primary Dx); Postmenopausal bleeding Start: 10-19-2023 ambulatory ANJELICA GAMBINO [facility] Start: 10-19-2023 Telephone encounter Linette Ga RN [facility] Physicians Gynecology Oncology Start: 10-11-2023 End: 10-11-2023 ambulatory BENTLEY PIPPA Not Available Start: 09-01-2023 End: 09-01-2023 ambulatory VIPUL OBANDO Facility:[facility] Start: 08-11-2023 End: 08-11-2023 ambulatory MD Anamaria Chinchilla Facility:[facility] [place] Start: 05-11-2023 End: 05-11-2023 Lab Drop off Violet Lauren [facility] Start: 08-03-2022 End: 08-04-[address] [...] 09-12-2017 End: 09-13-2017 Ambulatory FARA BOOKER [facility] Procedures Date Procedure Procedure Detail Performing Clinician Start: 04-12-2025 [facility] CALCIUM Bentley Fazi o DO Work Phone: Start: 04-12-2025 [facility] CREATININE Bentley Fa zio DO Work Phone: Start: 02-27-2025 Nerve conduction jeanne dies 7-8 studies Kaitlin Jack Start: 10-05-2024 [facility] CALCIUM Bentley Fazi o DO Work Phone: Start: 11-29-2023 Follow-up visit Follow-up STEVOJAKE PENNINGTON Start: 08-22-2022 Hysterectomy Anamaria mcconnell Start: 09-12-2017 Screening mammograph y bi 2-view breast inc cad FARA BOOKER Start: 09-12-2017 Dxa bone density jeanne dy 1/> sites axial skel FARA BOOKER Cholecystectomy Violet Leonidas Comment on above: bile duct surgery Colonoscopy Violet Leonidas Comment on above: 2012 normal Laser device (physic al object) Violetchantale Dowlingab Comment on above: eye Plan of Treatment Date Care Activity Detail Author Start: 09-03-2025 End: 09-03-2025 Patient encounter procedure [facility] Start: 12-26-2024 Adult BMI Screening Adult BMI Screen ing [facility] Start: 11-28-2024 Adult BMI Screening Adult BMI Screen ing [facility] Start: 11-13-2024 Tobacco Screening [facility] Start: 10-25-2024 Adult BMI Screening Adult BMI Screen ing [facility] Start: 10-25-2024 Tobacco Screening [facility]ening [facility] Start: 08-28-2024 End: 08-28-2025 DXA Skeletal [...] BCP OB [address] [place] [id number] Bentley Das, DO [address] [place] [address] Arrived [facility] Comment on above: Arrived Start: 04-22-2024 Influenza vaccination Influenza Vacc ine [facility] Start: 12-27-2023 End: 12-27-2023 Patient encounter procedure 12/27/2023 11:00 AM EDT Office Visit Lurdes Mckenzie [facility] - Medical Oncology [address] [place] [phone] Mary Pennington PA [address] [place], [place] [id number] Lurdes L [place] [facility] - Medical Oncology Start: 11-29-2023 End: 11-29-2023 Patient encounter procedure 11/29/2023 10:30 AM EDT Office Visit Lurdes L [place] [facility] - Medical Oncology [address] [place] [address] Mary Pennington PA [address] [place], [place] [id number] Lurdes Rosado [place] [facility] - Medical Oncology Start: 11-14-2023 End: 11-14-2023 Admission to same day surgery center 11/14/2023 11:00 AM EDT - 11/14/2023 1:00 PM EDT Surgery [facility] - Surgery [address] [place] [address] Nabil Lord MD [address] [facility] [place] [address] DAVINCI HYSTERECTOMY SALPINGO OOPHORECTOMY(WITH FROZEN SECTION AND POSSIBLE STAGING) [facility] - Surgery Comment on above: [facility]INCI HYSTERECTOMY SALPINGO OOPHORECTOMY(WITH FROZEN SECTION AND POSSIBLE STAGING) Start: 11-14-2023 End: 11-14-2023 DAVINCI HYSTERECTOMY SALPINGO OOPHORECTOMY [facility] HYSTERECTOMY SALPINGO OOPHORECTOMY THICKENED ENDOMETRUM/POST MENOPAUSAL BLEEDING/CERVICAL STENOSIS 11/14/2023 11:00 AM EDT [facility] Start: 11-14-2023 Subsequent hospital visit by physician 11/14/2023 11:00 AM EDT Hospital Encounter [facility] - Surgery [address] [place] [address] [place] [address] [place] [address], [address] [place] [address] [facility] - Surgery Start: 11-07-2023 End: 11-07-2023 Admission to establishment 11/07/2023 10:30 AM EDT Support Visit [facility] Pre-Admission Clinic On [address] [address] [facility] Pre-Admission Clinic On [facility] Start: 10-28-2023 End: 10-27-2024 XR Chest PA and Lateral X-ray chest 2 views Imaging Routine Preop testing Expected: 10/28/2023, Expires: 10/27/2024 [facility] Comment on above: Expected: 10/28/2023 , Expires: 10/27/2024 Start: 10-26-2023 End: 10-26-2023 Patient encounter procedure 10/26/2023 3:00 PM EST Office Visit [facility] Physicians Gynecology Oncology [address] [place] [address] [address] [place] [address] [place] [address] [place] [address], [address] [place] [address] [facility] Physicians Gynecology Oncology Start: 04-22-2023 Influenza vaccination Influenza Vacc ine [facility] Start: 08-04-2022 Adult BMI Screening Adult BMI Screen ing [facility] Start: 2017 Fall Risk Screening [facility] Start: 2002 Administration of varicella zoster vaccine Zoster (Shingles) Vaccine (1 of 2) [facility] Start: 1971 DTaP,Tdap and Td Vaccines (1 - Tdap) DTaP,Tdap and Td Vaccines (1 - Tdap) [facility] Start: 1970 Adult BMI Follow Up Plan Adult BMI F ollow Up Plan [facility] Start: 1964 Depression Screening Depression Scre ening [facility] Start: 1964 Tobacco Screening [facility]ening [facility] Start: 1952 Medicare Annual Well ness Visit Medicare Annual Wellness Visit [facility] End: 10-27-2024 CBC W Auto Differential panel - Blood CBC with auto diff Lab Routine Preop testing 1 Occurrences starting 10/28/2023 until 10/27/2024 [employer] Work Phone: Comment on above: 1 Occurrences starti ng 10/28/2023 until 10/27/2024 End: 10-27-2024 Comprehensive metabolic 2000 panel - Serum or Plasma Comprehensive metabolic panel Lab Routine Preop testing 1 Occurrences starting 10/28/2023 until 10/27/2024 [facility] Comment on above: 1 Occurrences starti ng 10/28/2023 until 10/27/2024 End: 10-27-2024 ECG 12 lead ECG 12 lead ECG Routine Preop testing 1 Occurrences starting 10/28/2023 until 10/27/2024 [facility] Comment on above: 1 Occurrences starti ng 10/28/2023 until 10/27/2024 Immunizations Immunization Date Immunization Notes Care Provider Jailyn martinez 07-24-2019 pneumococcal polysaccharide vaccine, 23 valent Anamaria Chinchilla [facility] 07-21-2018 pneumococcal conjuga te vaccine, 13 valent Anamaria Chinchilla [facility] 11-08-2016 hepatitis A vaccine, adult dosage Anamaria Chinchilla [facility] 05-05-2016 hepatitis A vaccine, adult dosage Anamaria Chinchilla [facility] 07-12-2014 influenza virus vaccine, unspecified formulation Linette Ga RN [facility] 07-12-2014 influenza, injectabl e, quadrivalent, preservative free Bentley Pippa DO Work Phone: [facility] 06-05-2013 influenza virus vaccine, unspecified formulation Anamaria Chinchilla [facility] 06-05-2013 influenza, seasonal, injectable Bentley Pippa DO Work Phone: [facility] 05-18-2012 influenza virus vaccine, unspecified formulation Anamaria Chinchilla [facility] 05-18-2012 influenza, seasonal, injectable Bentley Pippa DO Work Phone: [facility] 05-17-2011 influenza virus vaccine, unspecified formulation Anamaria Chinchilla [facility] 05-17-2011 influenza, seasonal, injectable Bentley Pippa DO Work Phone: [facility] 06-25-2008 pneumococcal polysaccharide vaccine, 23 valent Anamaria Chicnhilla [facility] NEGATED: Highlighted row has not occurred!07-30-2024 influenza virus vaccine, unspecified formulation Anamaria Chinchilla [facility] NEGATED: Highlighted row has not occurred!05-30-2023 influenza virus vaccine, unspecified formulation Anamaria Chinchilla [facility] NEGATED: Highlighted row has not occurred!12-01-2022 SARS-CoV-2 mRNA (tozinameran 5y-11y) vaccine Violet Lauren [facility] Payers Date Payer Category Payer Medicare (Managed Care) KELLY SANDERS Member Subscriber Plan / Payer (Effective 2021-Present) Name: Isaura Hayden Relation to Subscriber: Self Name: Isaura Hayden Payer ID: Not on file Group ID: [id number] Type: Not on file Address: [facility] [id number] [place] [id number] 2017 Medicare [id number]. [id number] 2017 Unknown [id number] 2017 Unknown 2014 Medicare [id number] 1959 Unknown [id number] 1952 Unknown [id number] 2.16.840.1.751864.3.579.2. 593 1952 Unknown [id number] 2.16.840.1.631628.3.579.2. 593 1952 Unknown [id number] 2.16.840.1.293683.3.579.2. 593 1952 Unknown [id number] 2.16.840.1.338008.3.579.2. 593 1952 Unknown [id number] 2.16.840.1.620037.3.579.2. 593 1952 Unknown [id number] 2.16.840.1.448861.3.579.2. 593 1952 Unknown [id number] 2.16.840.1.686968.3.579.2. 593 1952 Unknown [id number] 2.16.840.1.195036.3.579.2. 593 1952 Unknown [id number] 2.16.840.1.175673.3.579.2. 1286 1952 Unknown [id number] 2.16.840.1.504253.3.579.2. 1286 1952 Unknown [id number] 2.16.840.1.914010.3.579.2. 1286 1952 Unknown [id number] 2.16.840.1.798147.3.579.2. 1286 1952 Unknown [id number] 2.16.840.1.855280.3.579.2. 1286 1952 Unknown [id number] 2.16.840.1.035476.3.579.2. 1286 1952 Unknown [id number] 2.16.840.1.409392.3.579.2. 1286 1952 Unknown [id number] 2.16.840.1.900728.3.579.2. 1286 1952 Unknown [id number] 2.16.840.1.813316.3.579.2. 1286 1952 Unknown [id number] 2.16.840.1.728661.3.579.2. 1286 1952 Unknown [id number] 2.16.840.1.512473.3.579.2. 1286 1952 Unknown [id number] 2.16.840.1.204803.3.579.2. 727 1952 Unknown [id number] 2.16.840.1.202305.3.579.2. 727 1952 Unknown [id number] 2.16.840.1.901952.3.579.2. 727 1952 Unknown [id number] 2.16.840.1.823352.3.579.2. 727 1952 Unknown [id number] 2.16.840.1.023294.3.579.2. 727 1952 Unknown [id number] 2.16.840.1.744626.3.579.2. 727 1952 Unknown [id number] 2.16.840.1.131680.3.579.2. 1259 1952 Unknown [id number] 2.16.840.1.266142.3.579.2. 1259 1952 Unknown [id number] 2.16.840.1.209016.3.579.2. 196 1952 Unknown [id number] 2.16.840.1.775450.3.579.2. 727 1952 Unknown [id number] 2.16.840.1.489727.3.579.2. 727 1952 Unknown [id number] 2.16.840.1.057513.3.579.2. 727 1952 Unknown [id number] 2.16.840.1.812487.3.579.2. 727 1952 Unknown [id number] 2.16.840.1.373068.3.579.2. 727 1952 Unknown [id number] 2.16.840.1.206369.3.579.2. 727 1952 Unknown [id number] 2.16.840.1.447905.3.579.2. 727 1952 Unknown [id number] 2.16.840.1.476410.3.579.2. 727 1952 Unknown [id number] 2.16.840.1.538180.3.579.2. 727 1952 Unknown [id number] 2.16.840.1.956765.3.579.2. 727 1952 Unknown [id number] 2.16.840.1.229476.3.579.2. 727 Social History Date Type Detail Facility Start: 01-31-2023 End: 05-11-2023 Tobacco smoking status Never smoked tobacco (finding) [facility] Comment on above: denies denies use. Tobacco [facility] status [facility]: denies denies use. Start: 10-02-2020 End: 10-11-2023 [facility] Start: 10-11-2023 End: 08-28-2024 Alcoholic beverage intake Current drinker of alcohol (finding) [facility] Start: 10-11-2023 End: 08-28-2024 Alcoholic beverage intake [facility] Start: 1950 Sex assigned at Not on file P [facility] History of tobacco use Passive smoker [facility] Start: 01-12-2018 End: 11-07-2023 Tobacco use and exposure Smokeless tobacco non-user [facility] Start: 1950 [facility] Start: 10-24-2023 Gender identity Identifies as female gender (finding) [facility] Start: *Tobacco [facility] Start: Alcohol [facility] Clinical Notes 08-05-2022 to 10-19-2024 Maryanne Mancia [...] Protein Urine Dipstick: Trace (10/19/24 10:07:00) Specific [place] Urine Dipstick: 1.020 (10/19/24 10:07:00) Urine Appearance Urine Dipstick: Slightly cloudy (10/19/24 10:07:00) Urine Color Urine Dipstick: Light yellow (10/19/24 10:07:00) Urobilinogen Urine Dipstick: Normal 0.2-1 EU/dl (10/19/24 10:07:00) pH Urine Dipstick: 7 (10/19/24 10:07:00) [facility] 08-28-2024 History of Presen t illness [...] Daily aspirin 81 mg, Every other day Nipqwbe-Tvowzdlxfg-Rbgnuya D (VITAMIN D3/CALCIUM/PHOSPHORUS PO) 1 each, Daily Denosumab (PROLIA SC) 1 Units, Every 6 months Durysta 10 mcg, As needed losartan (COZAAR) 100 mg, Daily Lockwood-3 500 mg rosuvastatin (CRESTOR) 20 mg ALLERGIES Allergies Allergen Reactions Hydromorphone Unknown PROBLEMS Active Ambulatory Problems Diagnosis Date Noted Age-related osteoporosis without current pathological fracture ([facility]) 01/31/2023 Arthritis 12/27/2016 Hypercholesterolemia ([facility]) 12/27/2016 Hypertension ([facility]) 01/31/2023 Iron deficiency anemia 12/27/2016 TIA (transient ischemic attack) 01/31/2023 History of colon polyps 02/01/2023 Hyperlipidemia ([facility]) 02/23/2023 Resolved Ambulatory Problems Diagnosis Date Noted No Resolved Ambulatory Problems Past Medical History: Diagnosis Date Bronchitis Capillary angioma Cataracts, bilateral Chicken pox Family history of cancer Gallstone pancreatitis 2016 Glaucoma ([facility]) Hemorrhoids 2013 High blood pressure ([facility] High cholesterol ([facility]) Measles Mumps Osteoporosis ([facility]) Pneumonia Stress fracture Tonsillitis Tubular adenoma 2013 HISTORY PAST MEDICAL HISTORY SOCIAL HISTORY Past Medical History: Diagnosis Date Arthritis Bronchitis Capillary angioma Cataracts, bilateral Chicken pox Family history of cancer Gallstone pancreatitis 2017 Glaucoma ([facility]) Hemorrhoids 2013 High blood pressure ([facility]) High cholesterol ([facility]) Measles Mumps Osteoporosis ([facility]) Pneumonia Stress fracture Tonsillitis Tubular adenoma 2013 [...] nursing note reviewed. Exam conducted with a hand molder and caster present. Vitals: Estimated body mass index is [...] 05/17/2011 Recorded pneumococcal 23-valent vaccine 06/25/2008 Recorded [facility] 07-30-2024 Note Patient Education Cardiovascular Hypertension, [...] Keep all follow-up visits. Medicines ??? Take znut-jzk-hzvuecy and prescription medicines only as told by [...] Hypertension is a (more content not included)... [facility] 07-13-2024 Note Patient Education Infectious Disease [...] these instructions at home: Medicines ??? Take nlbw-vyt-mmykigj and prescription medicines only as told by [...] and water are not available, use hand seed potato cutter. ??? Do not touch your eyes, [...] provider. Document Revised: 11/04/2021 Document Reviewed: 11/04/2021 [place] Patient Education ? 2023 [employer]. [facility] 12-27-2023 History of Presen t illness [...] 01/12/2018 Performed by Nitesh Littlejohn MD at [facility] ROBOTIC ASSISTED HYSTERECTOMY, BILATERAL SALPINGO OOPHORECTOMY, PELVIC WASHINGS Bilateral 11/14/2023 Performed by Nabil Lord MD at [facility] SURGERY HEMORROIDECTOMY 1999' SKIN BIOPSY Right [...] - Inability: Never True Received from [facility] Safety & Environment Review of Symptoms: Pertinent [...] *This note was completed using a voice head of mathematics system. Every effort was made to ensure accuracy. However, inadvertent computerized head of mathematics errors may be present. .Total time spent was 20 minutes: Preparing to see the patient (e.g., review of tests) Performing a medically appropriate examination and/or evaluation Counseling and educating the patient/family/caregiver Documenting clinical information in the electronic or other health record Care coordination (not separately reported) Mary Pennington PA-C, RD, IF JASON Zaragoza 12/27/23 1101 documented in this encounter [facility] History of Presen t illness Narrative [...] 01/12/2018 Performed by Nitesh Littlejohn MD [facility] HYSTERECTOMY, BILATERAL SALPINGO OOPHORECTOMY, PELVIC WASHINGS Bilateral 11/14/2023 Performed by Nabil Lord MD at [facility] SURGERY HEMORROIDECTOMY 1999's SKIN BIOPSY Right [...] *This note was completed using a voice head of mathematics system. Every effort was made to ensure accuracy. However, inadvertent computerized head of mathematics errors may be present. .Total time spent was 20 minutes: Preparing to see the patient (e.g., review of tests) Performing a medically appropriate examination and/or evaluation Counseling and educating the patient/family/caregiver Documenting clinical information in the electronic or other health record Care coordination (not separately reported) Mary Pennington PA-C, RD, IF JASON Zaragoza 11/29/23 1101 documented in this encounter [facility] 11-07-2023 Instructions Formatting of th is note might be different from the original. Your surgery/procedure is scheduled at [facility] on 11/14/2023 at 11 am Arrival Time 9 am [facility] Address: [address] [place] [address], [address] [address] in the Emergency Center Parking lot. Report to the front desk specialist in the Emergency/Surgery Registration lobby of the hospital. Please call Pre-Admission Clinic at [phone] if you have any questions prior to surgery. For questions the morning of surgery, please call the Pre-op Department at [phone]. Notify your SURGEON if you develop any [...] like to schedule therapy at a [facility] Rehab facility, please call [phone] ([phone]). Do not use lotions, creams, powders, perfume, make up, cologne or after-shaves day of surgery. Remove ALL jewelry including wedding rings, body piercings, hair extensions that contain metal, nail [place] citizen, make-up, and contact lens. You may brush your teeth the morning of surgery, but do not swallow the water. Wear your dentures and partial plates to the hospital (no adhesive). Shower the night the before. If applicable, use the CHG (chlorhexidine gluconate) soap or wipes. Please be advised, [facility] has transitioned to a cashless payment system. [...] RIGHTS AND RESPONSIBILITIES As a patient at [facility], you have the right to: Receive medical care and be informed of who is taking care of you Be treated with dignity and respect Have a family member/inside sales account representative of choice and your physician notified of your admission Receive information and actively participate in decisions about your care and treatment Refuse care, treatment and services Decide who may provide your support and speak for you Access anglican and spiritual services Participate in ethical issues [...] of hospital charges and payment methods Patient/patient inside sales account representative responsibilities are to: Provide information about health status to facilitate care, treatment and services Follow the treatment, plan, keep appointments and speak up when you do not understand the plan Respect the rights of other patients and healthcare personnel Follow organizational rules and regulations that support quality care and a safe environment Fulfill financial obligations as promptly as possible [facility] 11-07-2023 Miscellaneous Notes Pt is going to [facility] on 11/09/2023 to havre EKG, CXR and labs. Your surgery/procedure is scheduled at [facility] on 11/14/2023 at 11 am Arrival Time 9 am [facility] Address: [address] [place] [address], [facility] [place] in the Emergency Center Parking lot. Report to the front desk specialist in the Emergency/Surgery Registration lobby of the hospital. Please call Pre-Admission Clinic at [phone] if you have any questions prior to surgery. For questions the morning of surgery, please call the Pre-op Department at [phone]. Notify your SURGEON if you develop any [...] like to schedule therapy at a [facility]hab facility, please call [phone] ([phone]). Do not use lotions, creams, powders, perfume, make up, cologne or after-shaves day of surgery. Remove ALL jewelry including wedding rings, body piercings, hair extensions that contain metal, nail [place] citizen, make-up, and contact lens. You may brush your teeth the morning of surgery, but do not swallow the water. Wear your dentures and partial plates to the hospital (no adhesive). Shower the night the before. If applicable, use the CHG (chlorhexidine gluconate) soap or wipes. Please be advised, [facility] has transitioned to a cashless [...] RIGHTS AND RESPONSIBILITIES As a patient at [facility], you have the right to: Receive medical care and be informed of who is taking care of you Be treated with dignity and respect Have a family member/inside sales account representative of choice and your physician notified of your admission Receive information and actively participate in decisions about your care and treatment Refuse care, treatment and services Decide who may provide your support and speak for you Access anglican and spiritual services Participate in ethical issues [...] of hospital charges and payment methods Patient/patient inside sales account representative responsibilities are to: Provide information about [...] promptly as possible documented in this encounter [facility] 11-07-2023 Nurse Note Pt is going to [facility] on 11/09/2023 to havre EKG, CXR and labs. [facility] 10-28-2023 Miscellaneous Notes Spoke with Mee 3/Raisa and 3/8 to confirm surgery plan. Patient is scheduled at [facility] with Dr Lord on 11/14/23. She knows to arrive at 9:00a for 11:00a surgery. Patient knows to call [phone] to locate closest [facility] facility in order to complete PAT testing. She has phone call PAT scheduled for 11/07/23. She will follow up with Mary in [place] on 11/29/23 at 10:30a. documented in this encounter [facility] 10-28-2023 Telephone encounter Note Spoke with Mee 3/Raisa and 3/8 to confirm surgery plan. Patient is scheduled at [facility] with Dr Lord on 11/14/23. She knows to arrive at 9:00a for 11:00a surgery. Patient knows to call [phone] to locate closest [facility] facility in order to complete PAT testing. She has phone call PAT scheduled for 11/07/23. She will follow up with Mary in [place] on 11/29/23 at 10:30a. [facility] 10-26-2023 History of Presen t illness [...] personal or family history of GI or care program resident malignancies. Oncology History No overview note Isaura [...] 01/12/2018 Performed by Nitesh Littlejohn MD at [facility] HEMORROIDECTOMY TONSILLECTOMY Past Medical History: Diagnosis [...] procedures Referring and communicating with other health pharmacy care coordinator (not separately reported) Documenting clinical information in the electronic or other health record Independently interpreting results (not separately reported) and communicating results to the patient/family/caregiver Nabil Lord MD [facility]-19-2023 Miscellaneous Notes Left VM to schedule SCRAP PREPARER appt with care program resident onc, call back # provided. Requested images from pelvic US be pushed via PACS from [facility]. [facility] 10-19-2023 Telephone encounter Note Left VM to schedule SCRAP PREPARER appt with care program resident onc, call back # provided. Requested images from pelvic US be pushed via PACS from [facility]. [facility] 08-11-2023 Note Procedures Choosing a Surgeon [...] a surgeon: ? Is certified by the [place] [employer]. To be board [...] going to your state medical board at [email or web address].org/jnpcgfl-b-[email or web address]-md [email or web address]-board/ ? Has good ratings from other [...] you are considering is certified by the [place] [employer]. ? Meet with [...] provider. Document Revised: 10/19/2021 Document Reviewed: 10/19/2021 [employer] Patient Education ? 2022 [employer]. [facility] 08-05-2022 Note PROCEDURE: XR FOOT L [...] authenticated by: ALAN CÁRDENAS Date: 2022-08-04 22:03 [facility] Evaluation + Plan note Future Appointments Appointment Date:05/30/2023 02:00:00 PM Scheduled Provider: Location:[facility] Appointment Type: Medicare Wellness Subsequent Appointment Date:05/30/2023 02:40:00 PM Scheduled Provider:Anamaria Chinchilla MD Location:[facility] Appointment Type: Open Diagnostic Tests PendingUrine Culture 05/11/23 [facility] Evaluation + Plan note Future Appointments Appointment Date:07/30/2024 10:30:00 AM Scheduled Provider:Anamaria Chinchilla MD Location:[facility] Appointment Type: Open Appointment Date:07/30/2024 11:00:00 AM Scheduled Provider: Location:[facility] Appointment Type: Medicare Wellness Subsequent Diagnostic Tests PendingUrine Culture 05/07/24 [facility] Evaluation + Plan note Future Appointments Appointment Date:01/28/2025 08:45:00 AM Scheduled Provider:Anamaria Chinchilla MD Location:[facility] Appointment Type:FM Open Appointment Date:08/01/2025 11:00:00 AM Scheduled Provider: Location:[facility] Appointment Type:FM Medicare Wellness Subsequent [facility] Evaluation + Plan note Future Appointments Appointment Date:01/28/2025 08:45:00 AM Scheduled Provider:Anamaria Chinchilla MD Location:[facility] Appointment Type:FM Open Appointment Date:08/01/2025 11:00:00 AM Scheduled Provider: Location:[facility] Appointment Type:FM Medicare Wellness Subsequent Diagnostic Tests PendingUrine Culture 10/19/24 [facility] Evaluation note Diagnosis Well woman exam with routine gynecological exam Routine gynecological examination Breast cancer screening by mammogram Postmenopausal state Asymptomatic postmenopausal status (age-related) (natural) documented in this encounter [facility] HealthcareEvaluation note* Diagnosis Encounter for postoperative care- Primary documented in this [facility]* Diagnosis Endometrial thickening on ultrasound- Primary Postmenopausal bleeding documented in this [facility]* Diagnosis Preop testing- Primary Unspecified pre-operative examination documented in this encounter [facility]* Diagnosis Encounter for postoperative care- Primary documented in this encounter [facility] course Narrative No data available for this section [facility] No data available for this section [facility] on filedocumented in this encounter [facility] on filedocumented in this encounter [facility] on filedocumented in this encounter [facility] on filedocumented in this encounter [facility] on filedocumented in this encounter [facility]ructions[facility] on filedocumented in this encounter [facility] SystemProgress note No data available for this section [facility] Summary Purpose Family History No Family [...] Procedures ECG 12 lead Nabil Lord MD [address] [place] [address], [address] [place] [address] Referral ID Status Reason Start Date Expiration Date V isits Requested Visits Authorized [id number] Pending Review 10/28/2023 10/27/2024 1 1 Additional Source Comments INFORMATION SOURCE (unrecogn ized section and content) DATE CREATED AUTHOR 02/13/2018 [facility] DATE CREATED AUTHOR AUTHOR'S ORGANIZ ATION 08/12/2022 [facility] [facility] DATE CREATED AUTHOR AUTHOR'S ORGANIZ ATION 10/27/2023 [facility] DATE CREATED AUTHOR AUTHOR'S ORGANIZ ATION 10/28/2023 [facility] DATE CREATED AUTHOR AUTHOR'S ORGANIZ ATION 11/18/2023 [facility] DATE CREATED AUTHOR AUTHOR'S ORGANIZ ATION 12/28/2023 [facility] DATE CREATED AUTHOR AUTHOR'S ORGANIZ ATION 05/15/2024 [facility] DATE CREATED AUTHOR AUTHOR'S ORGANIZ ATION 08/10/2024 [facility] DATE CREATED AUTHOR AUTHOR'S ORGANIZ ATION 08/13/2024 [facility] DATE CREATED AUTHOR AUTHOR'S ORGANIZ ATION 09/03/2024 [facility] dical [facility] DATE CREATED AUTHOR AUTHOR'S ORGANIZ ATION 09/13/2024 [facility] DATE CREATED AUTHOR AUTHOR'S ORGANIZ ATION 10/21/2024 [facility] DATE CREATED AUTHOR AUTHOR'S ORGANIZ ATION 10/22/2024 [facility] DATE CREATED AUTHOR AUTHOR'S ORGANIZ ATION 01/28/2025 [facility] DATE CREATED AUTHOR AUTHOR'S ORGANIZ ATION 01/30/2025 [facility] Patient Care team informatio n (unrecognized section and content) Velvet Cutter Relationship Specialty Start Date End Date Anjelica Gambino MD [address] [place] [phone] PCP - General Family Medicine 01/27/23 Velvet Cutter Relationship Specialty Start Date End Date Anjelica Gambino MD [address] [place] [address] PCP - General Family Medicine 01/27/23 Velvet Cutter Relationship Specialty Start Date End Date Anamaria Chinchilla MD [address] [place], [place] [id number] PCP - General Family Medicine 11/07/23 Velvet Cutter Relationship Specialty Start Date End Date Anjelica Gambino MD [address] [place] [address] PCP - General Family Medicine 12/24/16 Velvet Cutter Relationship Specialty Start Date End Date Anjelica Gambino MD [address] [place] [address] PCP - General Family Medicine 12/24/16 Velvet Cutter Relationship Specialty Start Date End Date Anjelica Gambino MD [address] [place] [address] PCP - General Family Medicine 12/24/16 Velvet Cutter Relationship Specialty Start Date End Date Anamaria Chinchilla MD [address] [place], [place] [id number] PCP - General Family Medicine 11/07/23 Velvet Cutter Relationship Specialty Start Date End Date Anjelica Gambino MD [address] [place] [id number] PCP - General Family Medicine 01/27/23 Reason [...] BE BASED ON THE PRIMARY CLINICAL RECORDS. [employer] [facility]. provides no warranty or guarantee of the accuracy or completeness of information in this document.
--- NOTE | 2025-04-15 09:04 | XR_ITS ---
[address] [address] Patient Name: PAPITO HAYDEN MRN: [id number] date: 1950 Sex: F Assigned Patient Location: [facility] Current Patient Location: [facility] Accession/Order Number: [id number] Exam Date: 04/15/2025 09:35 Report Date: 04/15/2025 09:50 At the request of: SUNG COPELAND DPM Procedure: XR foot RT min 3V RIGHT FOOT - 3 views CLINICAL DATA: Follow-up fifth metatarsal fracture. Pain. COMPARISON: 02/04/2025 Weightbearing AP, lateral and oblique views were obtained. There is osteopenia. A similar healing fracture is seen at the proximal shaft of the fifth metatarsal. There is no new fracture or dislocation. Similar minor degenerative changes are present. There are no significant soft tissue abnormalities. XR/XR foot RT min 3V IMPRESSION: STABLE HEALING FRACTURE AT THE FIFTH METATARSAL. NO ACUTE FINDINGS. Impression dictated by: Maryanne Coates M.D. 04/15/2025 9:50 AM Dictation Location: [facility] Electronically authenticated by: [id number] Y Date: 04/15/2025 09:50
== END 2025-04-15 08:47 | disposition home or self-care (01) ==
LOC: RAD 08:48
PROVIDERS: PCP Nurse Practitioner; Visit Provider Podiatrist Foot & Ankle Surgery
DX: M79.671 Pain in right foot (principal); S92.354D Nondisplaced fracture of fifth metatarsal bone, right foot, subsequent encounter for fracture with routine healing
CPT/HCPCS: 73630

== ENCOUNTER 2025-04-15 09:01 | Outpatient (OUT) | payer MEDICARE, SELFPAY ==
--- NOTE | 2025-04-15 09:05 | MM_ITS ---
Patient Name: PAPITO HAYDEN MR#: [id number] : 1950 Exam Date: 04/15/2025 Ordering Doctor: DR ARIEL BOUCHER . RADIOLOGY REPORT PROCEDURE: MM TOMOSYNTHESIS SCREENING BI COMPARISON: MM TOMOSYNTHESIS SCREENING BI, 04/09/2024. MM TOMOSYNTHESIS SCREENING BI, 04/04/2023. MG MAMM SCREEN 3D SARAHI CAD, 03/15/2022. MG MAMM SCREEN SARAHI W CAD, 09/12/2017. INDICATIONS: Screening Calculator Name NCI Breast Cancer Risk Assessment Tool 5 Year Breast Cancer Risk 1.40% Lifetime Breast Cancer Risk 3.80% Personal Breast Cancer No Personal Ovarian Cancer No Treatments None Family Cancers Aunt-maternal with breast cancer at age 70; Father with lung cancer at age 70. LOCATION: [facility] BREAST COMPOSITION: There are scattered areas of fibroglandular density. FINDINGS: DIAGNOSTIC CATEGORY 1--NEGATIVE. RIGHT BREAST: No significant suspicious finding. LEFT BREAST: No significant suspicious finding. RECOMMENDATIONS: ROUTINE MAMMOGRAM AND CLINICAL EVALUATION IN 12 MONTHS. Dictated by: Damir Drake DO on 04/15/2025 at 10:17 Approved by: Damir Drake DO on 04/15/2025 at 10:18
--- OUTSIDE RECORDS SUMMARY | 2025-04-15 09:11 | XMS_ITS | CCD ---
Author Organization [facility] Care Team Providers Care Commercial Account Executive Name Role Phone FARA BOOKER Unavailable Unavailable [...] Unavailable GAMBINO, DR ANJELICA Bergeron Attending Unavailable GAMBNIO, DR ANJELICA Bergeron Admitting Unavailable GAMBINO, DR [...] Unavailable GAMBINO, ANJELICA Bergeron Primary Care Unavailable BLEEN, ANJELICA Bergeron Referring Unavailable ROSS, ANAMARIA Rubio Primary Care Unavailable CAROLYN, NABLI C Admitting Unavailable CAROLYN, NABIL C Attending [...] Unavailable Anjelica Gambino MD Primary Care Provider [phone] BENTLEY DAS Attending Unavailable BENTLEY DAS Attending [...] Translations: [atorvastatin] Drug Allergy Unknown (qualifier value) [facility] (18 sources) HYDROmorphone; Translations: [hydromorphone] Drug Allergy 01-29-20 Unknown (qualifier value), Unknown, Confusion, Hallucinations [facility] (6 sources) Pyrilamine; Translations: [pyrilamine] Drug Allergy Unknown (qualifier value) [facility] (4 sources) No Known Medication Allergies; Translations: [No Known Medication Allergies] Propensity to adverse reactions (disorder) [facility] (1 source) HYDROmorphone; Translations: [Dilaudid] Drug Allergy [place] [employer] Medications Current Medications Medication Drug Class(es) Dates Sig (Normalized) Sig (Original) amLODIPine 5 mg oral tablet (14 sources) Dihydropyridine Calcium Channel Sylvester Start: 06-01-2023 take 1 tablet by mouth once daily amLODIPine 5 mg Tab See Instructions, TAKE 1 TABLET BY MOUTH DAILY, # 90 tab(s), Refills(s) 0, Pharmacy: [facility] [id number], 162, cm, 09/17/24 9:18:00 EST, Height/Length Dosing, [...] dose by mouth once in the morning Idpcjdi-Mmindnhnxz-Ggr harp D (VITAMIN D3/CALCIUM/PHOSPHORUS PO) Take 1 [...] Active docusate sodium 50 mg / sennosides, fci 8.6 mg oral tablet (2 sources) Start: [...] day(s), # 14 cap(s), Refills(s) 0, Pharmacy: [facility] [id number], 162, cm, 05/07/24 14:07:00 EDT, Height/Length Dosing, [...] capsule (9 sources) Start: 12-01-2022 Krill Oil ([place]-3) 500 MG capsule Take 500 mg by [...] 180 tab(s), Refills(s) 0, Pharmacy: [facility] [id number], 162, cm, 05/11/23 9:36:00 EDT, Height/Length Dosing, 74.9, kg, 05/11/23 9:36:00 EDT, Weight Dosing Start Date: 05/11/23 Status: Ordered meloxicam 15 mg oral tablet (6 sources) Nonsteroidal Anti-inflammatory Drug Start: 02-27-2023 End: 11-07-2023 take 1 tablet by mouth once daily as needed meloxicam 15 mg Tab See Instructions, TAKE ONE TABLET BY MOUTH DAILY NEEDED, # 90 tab(s), Refills(s) 0, Pharmacy: [facility] [id number], 162.6, cm, 12/01/22 15:23:00 EDT, Height/Length Dosing, [...] day(s), # 14 cap(s), Refills(s) 0, Pharmacy: [facility] [id number], 162, cm, 09/17/24 9:18:00 EST, Height/Length Dosing, 77.9, kg, 09/17/24 9:18:00 EST, Weight Dosing Start Date: 10/19/24 Stop Date: 10/26/24 Status: Ordered omega-3 acid ethyl esters (fci) 1000 mg oral capsule (2 sources) take [...] 0 12/01/2022 Active take 1 capsule by [facility] once daily at dinner vitamin E, dl,tocopheryl acet, (vitamin E, dl, acetate,) 180 mg (400 unit) capsule Take 1 capsule (400 Units total) by mouth Daily before evening meal. Active take 1 capsule by [facility] in the morning vitamin E, dl,tocopheryl [...] [Mass/Vol] 9.1 mg/dL 8.5 - 10.1 mg/dL [facility] No Panel Informationon 04-12 [facility] TB CREATININEon 04-12-2025 Creatinine [Mass/Vol] 1.28 mg/dL High 0.55 - 1.02 mg/dL [facility] GFR/1.73 sq M.predicted CKD-EPI (S/P/Bld) [Vol rate/Area] 50 Low >=60 mL/min/1.73m 2 [facility] Interpretation and review of laboratory results Abnormal [facility] EGFR-NON AF LUXEMBOURGER 41 Low >=60 mL/min/1.73m 2 [facility] No Panel Informationon 02-08 Tobacco smoking status Non-Smoker Invalid Interpretation Code [employer] Work Phone: Ambulatory Visit Summaryon 0 01-28-2025 [...] Follow-Up Appointments 2024 11:00 AM EST Where: [address] [address]- Medications What How Much When Instructions Unchanged amlodipine (amLODIPine 5 mg Tab) See instructions TAKE 1 TABLET BY MOUTH DAILY Pickup at [facility] [id number] Unchanged aspirin (aspirin 81 mg oral capsule) [...] physician if questions or concerns Pharmacy Information [facility] [id number]: [address], [place] [id number] [phone] Allergies Dilaudid (Unknown) Problems Ongoing - Any [...] choosing us for your care. Natalee Coto [facility] Family Medicine Office/Clini c Noteon 01-28-2025 Family [...] DAILY, # 90 tab(s), Refills(s) 1, [facility] [id number], 162, cm, 01/28/25 9:01:00 EDT, Height/Length Dosing, [...] regimens f (more content not included)... Normal [facility] Comment on above: Result Comment: Elec tronically Signed By: Christiano SHORT, Anamaria Harvey\.br\Date and Time Signed: 01/28/25 09:32 EDT Reminderson 10-22-2024 Reminders Reminders From: Violet Allen To: [facility] - Clinical; Sent: 10/22/2024 08:07:37 EST Show up: 10/22/2024 08:07:00 EST Subject: Ambulatory Reminder Due Date/Time: 10/23/2024 08:06:00 EST urine culture was positive. she is on the correct antibiotic. continue that until it is gone. Is she feeling better? Results: Date Result Type Ind Result Name 10/19/2024 10:39 EST MBO POS Urine Culture From: Maryanne Cramer M.A. ([facility] - Clinical) To: Violet Allen; Sent: 10/22/2024 09:32:36 EST Show up: 10/22/2024 09:31:00 EST Subject: RE: Ambulatory Reminder understands, and she said she is feeling a lot better than what she was Normal [facility] Reminders Reminders From: Violet Allen To: B - Clinical; Sent: 10/22/2024 08:07:37 EST Show up: 10/22/2024 08:07:00 EST Subject: Ambulatory Reminder Due Date/Time: 10/23/2024 08:06:00 EST urine culture was positive. she is on the correct antibiotic. continue that until it is gone. Is she feeling better? Results: Date Result Type Ind Result Name 10/19/2024 10:39 EST MBO POS Urine Culture Normal [facility] C Urineon 10-21-2024 Bacteria identified Cx [...] Locations R1: This test was performed at: [facility], [address] [place] [address], [address] , , [facility] Comment on above: Performed By: #### 2 [id number] #### [facility] [address] [place] [address] CC CALCIUMon 10-05-2024 Calcium [Mass/Vol] 8.9 mg/dL 8.5 - 10.1 mg/dL [facility] Family Medicine Office/Clini c Noteon 09-17-2024 [...] and her call the squad transferred to [facility] she did vomit a few [...] her called 911 and was taken to [facility]. was hydrated with IV fluids [...] tendinitis, unspecified shoulder) pt was seen at [facility] ortho Dr. Keith to go over [...] 23-valent v (more content not included)... Normal [facility] Comment on above: Result Comment: Elec tronically Signed By: Violet Allen.kelly\Date and Time Signed: 09/17/24 11:46 EST C ANAon 09-13-2024 C KARLEE -- - Pre No anaerobic growth after 48 hrs. Normal [facility] Comment on above: Performed By: #### A NAC #### [address] [address] C [place] 09-13-2024 C Wound -- - Final No growth at 48 hours. Normal [facility] Comment on above: Performed By: #### W DC #### [address] [address] Family Medicine Office/Clini c Noteon 09-11-2024 Family Medicine Office/Clinic Note Family Medicine Office/Clinic Note HPI Staff Isaura is a 74 year old female presenting with a cat bite on right ankle Onset: History of Present Illness Pt was bit 1-2 days before presenting to me. Seen in [facility] [...] EST OR Trackon 09-11-2024 [facility]im[facility] Comment on above: Performed By: #### [facility] Tracking Order #### [place] [address] Ambulatory Visit Summaryon 0 09-10-2024 Ambulatory Visit [...] EDT With: Christiano SHORT, Anamaria Harvey Where: [address] [address] 2024 11:00 AM EST With: Where: [address] [address]- Medications What How Much When Instructions Unchanged [...] for choosing us for your care. Normal [facility] Ambulatory Visit Summaryon 0 08-27-2024 Ambulatory [...] AM EDT With: Anamaria Chinchilla MD Where: [address] [address] 2024 11:00 AM EST With: Where: [address] [address]- Medications What How Much When [...] for choosing us for your care. Natalee oCto [facility] Family Medicine Office/Clini c Noteon [...] ortho for this. Follow up PRN Ordered: [facility] External Ambulatory Referral 2. CKD stage 3a, GFR 45-59 ml/min (N18.31: Chronic kidney disease, stage 3a) Improved on last lab work. Follow up PRN Ordered: A1c POC [address] [facility] External Ambulatory Referral 3. BMI 29.0-29.9,adult (Z68.29: Body mass index [BMI] 29.0-29.9, adult) BMI education added Ordered: [facility] External Ambulatory Referral 4. Age-related osteoporosis without current pathological fracture (M81.0: Age-related osteoporosis without current pathological fracture) Reviewed Labs and Dexa. Prolia does not seem to be helping. Follows with Dr. Das. Ordered: [facility] External Ambulatory Referral Follow-up No qualifying data [...] A1c POC: 5.2 % (08/27/24 12:02:00) Normal [facility] Comment on above: Result Comment: Elec tronically Signed By: Christiano SHORT, Anamaria Saldivar.br\Date and Time Signed: 08/27/24 12:03 EST CBC w/ Auto Diffon 4 Basophils/100 WBC (Bld) 0.7 % Normal 0.0-2.0 [facility] Comment on above: Performed By: #### 2 [id number] #### [facility] [address] [place] [address] Basophils/Leukocyte s Auto (Bld) [Pure # fraction] 0.1 E9/L Normal 0.0-0.2 [facility] Comment on above: Performed By: #### 2 [id number] #### [facility] [address] [place] [address] Eosinophils (Bld) [#/Vol] 0.3 E9/L Normal 0.0-0.5 [facility] Comment on above: Performed By: #### 2 [id number] #### [facility] [address] [place] [address] Eosinophils/100 WBC (Bld) 3.2 % Normal 0.0-8.0 [facility] Comment on above: Performed By: #### 2 284298 #### [facility] [address] [place] [address] Erythrocyte distribution width (RBC) [Ratio] 13.7 % Normal 10.9-14.2 [facility] Comment on above: Performed By: #### 2 335001 #### [facility] [address] [place] [address] Hematocrit (Bld) [Volume fraction] 36.1 % Normal 34.0-46.0 [facility] Comment on above: Performed By: #### 2 479016 #### [facility] [address] [place] [address] Hemoglobin (Bld) [Mass/Vol] 12.3 g/dL Normal 12.0-16.0 [facility] Comment on above: Performed By: #### 2 811146 #### [facility] [address] [place] [address] Lymphocytes (Bld) [#/Vol] 1.7 E9/L Normal 1.0-4.0 [facility] Comment on above: Performed By: #### 2 164343 #### [facility] [address] [place] [address] Lymphocytes/100 WBC (Bld) 20.6 % Normal 14.0-50.0 [facility] Comment on above: Performed By: #### 2 660774 #### [facility] [address] [place] [address] MCH (RBC) [Entitic mass] 33.6 pg Normal 27.0-34.0 [facility] Comment on above: Performed By: #### 2 279034 #### [facility] [address] [place] [address] MCHC (RBC) [Mass/Vol] 34.1 g/dL Normal 31.4-36.0 [facility] Comment on above: Performed By: #### 2 [id number] #### [facility] [address] [place] [address] MCV (RBC) [Entitic vol] 98.7 fL Normal 80.0-100.0 [facility] Comment on above: Performed By: #### 2 [id number] #### [facility] [address] [place] [address] Monocytes (Bld) [#/Vol] 0.6 E9/L Normal 0.2-1.0 [facility] Comment on above: Performed By: #### 2 921213 #### [facility] [address] [place] [address] Neutrophils (Bld) [#/Vol] 5.8 E9/L Normal 2.0-7.5 [facility] Comment on above: Performed By: #### 2 [id number] #### [facility] [address] [place] [address] Neutrophils/100 WBC (Bld) 68.8 % Normal 36.0-75.0 [facility] Comment on above: Performed By: #### 2 896208 #### [facility] [address] [place] [address] Platelet 304.0 E9/L Normal 150.0-500.0 [facility] Comment on above: Performed By: #### 2 [id number] #### [facility] [address] [place] [address] Platelet mean volume (Bld) [Entitic vol] 8.4 fL Normal 6.4-10.8 [facility] Comment on above: Performed By: #### 2 [id number] #### [facility] [address] [place] [address] RBC (Bld) [#/Vol] 3.7 E12/L Low 4.3-5.9 [facility] Comment on above: Performed By: #### 2 539658 #### [facility] [address] [place] [address] WBC corrected for nucl RBC Auto (Bld) [#/Vol] 8.5 E9/L Normal 4.0-11.0 [facility] Comment on above: Performed By: #### 2 593998 #### [facility] [address] [place] [address] CHEMISTRYOrdered By: SYSTEM SYSTEM on 08-09-2024 25-hydroxyvitamin [...] 08-09-2024 Albumin [Mass/Vol] 4.4 g/dL Normal 3.3-5.0 [facility] Comment on above: Performed By: #### 2 100219 #### [facility] [address] [place] [address] Albumin/Globulin (S) [Mass conc ratio] 1.6 Normal 1.1-2.2 [facility] Comment on above: Performed By: #### 2 540044 #### [facility] [address] [place] [address] ALP [Catalytic activity/Vol] 52 Int._Unit/L Normal 21-98 [facility] Comment on above: Performed By: #### 2 930386 #### [facility] [address] [place] [address] ALT No additional P-5'-P [Catalytic activity/Vol] 14 Int._Unit/L Normal 6-46 [facility] Comment on above: Performed By: #### 2 [id number] #### [facility] [address] [place] [address] Anion gap [Moles/Vol] 11 mmol/L Normal 6-16 [facility] Comment on above: Performed By: #### 2 570941 #### [facility] [address] [place] [address] AST [Catalytic activity/Vol] 18 Int._Unit/L Normal 5-43 [facility] Comment on above: Performed By: #### 2 089248 #### [facility] [address] [place] [address] Bilirubin [Mass/Vol] 0.9 mg/dL Normal 0.0-1.1 [facility] Comment on above: Performed By: #### 2 393020 #### [facility] [address] [place] [address] Calcium [Mass/Vol] 8.9 mg/dL Normal 8.9-11.1 [facility] Comment on above: Performed By: #### 2 222120 #### [facility] [address] [place] [address] Chloride [Moles/Vol] 107 mmol/L Normal 101-111 [facility] Comment on above: Performed By: #### 2 197322 #### [facility] [address] [place] [address] CO2 [Moles/Vol] 27 mmol/L Normal 21-31 [facility] Comment on above: Performed By: #### 2 058073 #### [facility] [address] [place] [address] Creatinine [Mass/Vol] 1.1 mg/dL Normal 0.5-1.3 [facility] Comment on above: Performed By: #### 2 885918 #### [facility] [address] [place] [address] Globulin (S) [Mass/Vol] 2.8 g/dL Normal 1.4-4.0 [facility] Comment on above: Performed By: #### 2 537208 #### [facility] [address] [place] [address] Glucose [Mass/Vol] 105 mg/dL Normal 55-199 [facility] Comment on above: Performed By: #### 2 280556 #### [facility] [address] [place] [address] Potassium [Moles/Vol] 4.1 mmol/L Normal 3.5-5.3 [facility] Comment on above: Performed By: #### 2 227957 #### [facility] [address] [place] [address] Protein [Mass/Vol] 7.2 g/dL Normal 6.0-7.8 [facility] Comment on above: Performed By: #### 2 262799 #### [facility] [address] [place] [address] Sodium [Moles/Vol] 141 mmol/L Normal 135-145 [facility] Comment on above: Performed By: #### 2 802581 #### [place] [facility] [address] [place] [address] Urea nitrogen [Mass/Vol] 15 mg/dL Normal 5-21 [facility] Comment on above: Performed By: #### 2 111038 #### [facility] [address] [place] [address] Urea nitrogen/Creatinine [Mass ratio] 14 No Units Normal 10-20 [facility] Comment on above: Performed By: #### 2 [id number] #### [facility] [address] [place] [address] HEMATOLOGYOrdered By: SYSTEM SYSTEM on 08-09-2024 Basophils/100 [...] 08-09-2024 Cholesterol [Mass/Vol] 208 mg/dL High 120-200 [facility] Comment on above: Performed By: #### 2 [id number] #### [facility] [address] [place] [address] Cholesterol in HDL [Mass/Vol] 64 mg/dL Invalid Interpretation Code [facility] Comment on above: Result Comment: '>= 60 LOW RISK' '<= 40 HIGH RISK' Performed By: #### 2 508000 #### [facility] [address] [place] [address] Cholesterol in LDL [Mass/Vol] 104 mg/dL Normal <=129 [facility] Comment on above: Performed By: #### 2 352504 #### [facility] [address] [place] [address] Cholesterol in VLDL [Mass/Vol] 36 mg/dL Normal 7-40 [facility] Comment on above: Performed By: #### 2 291958 #### [facility] [address] [place] [address] Triglyceride [Mass/Vol] 182 mg/dL High <=149 [facility] Comment on above: Performed By: #### 2 [id number] #### [facility] [address] [place] [address] TSH With T4fr Reflexon 08-09 TSH Qn 2.85 m[IU]/L Normal 0.34-5.60 [facility] Comment on above: Performed By: #### 1 [id number] #### [facility] [address] [place] [address] U MA/Cr Ratioon 08-09-2024 Albumin DL <= 20 mg/L (U) [Mass/Vol] mg/dL Normal 0.0-1.9 [facility] Comment on above: Performed By: #### 1 [id number] #### [facility] [address] [place] [address] Albumin/Creatinine DL <= 20 mg/L (U) [Mass ratio] NOT CALCULATED Invalid Interpretation Code .0-30.0 [facility] Comment on above: Result Comment: 30-3 00 mg/g Cr indicates an increased risk for diabetic nephropathy. >300 mg/g Cr is consistent with clinical nephropathy. Performed By: #### 1 [id number] #### [facility] [address] [place] [address] U Creatinine 127.3 mg/dL Invalid Interpretation Code [facility] Comment on above: Performed By: #### 1 [id number] #### [facility] [address] [place] [address] Vit B12on 08-09-2024 Cobalamin (Vitamin B12) [Mass/Vol] 253 pg/mL Normal 50-1500 [facility] Comment on above: Performed By: #### 2 [id number] #### [facility] [address] [place] [address] Vitamin D 25 Hydroxyon 08-09 25-hydroxyvitamin D3 [Mass/Vol] 36.9 ng/mL Normal 30.0-100.0 [facility] Comment on above: Performed By: #### 5 [id number] #### [facility] [address] [place] [address] eGFRon 08-09-2024 eGFR 53 mL/min/1.73 m2 Low >=59 [facility] Comment on above: Performed By: #### 1 [id number] #### [facility] [address] [place] [address] Ambulatory Visit Summaryon 1 10-08-2023 Ambulatory Visit [...] Appointments 2023 8:40 AM EST With: Where: [address] [address]- Tuesday 8:45 AM EDT With: Anamaria Chinchilla MD Where: [address] [place] [address] 2024 11:00 AM EST With: Where: [address] [address]- You Need to Complete the Following CBC [...] Hypercholesterolemia Hyperlipidemia (more content not included)... Normal [facility] Family Medicine Office/Clini c Noteon 08-07-2024 [...] : Living will, Medical durable power of business attorney Location of Advance Directive : Family [...] - 07/30/ (more content not included)... Normal [facility] Comment on above: Result Comment: Elec [...] Appointments 2023 8:40 AM EST With: Where: [address] [address]- Tuesday 8:45 AM EDT With: Anamaria Chinchilla MD Where: [address] [address] 2024 11:00 AM EST With: Where: [address] [address]- You Need to Complete the [...] Chronic cough Duration: 7 Days Pickup at [facility] [id number] Unchanged amlodipine (amLODIPine 5 mg Tab) See [...] fatty a (more content not included)... Normal [facility] Ambulatory Visit Summary Ambulatory Visit Summary [...] Appointments 2023 8:40 AM EST With: Where: [address] [address]- Tuesday 8:45 AM EDT With: Anamaria Chinchilla MD Where: [address] [address] 2024 11:00 AM EST With: Where: [place] [address]- You Need to Complete the Following CBC [...] Chronic cough Duration: 7 Days Pickup at [facility] [id number] Unchanged amlodipine (amLODIPine 5 mg Tab) See [...] fatty a (more content not included)... Normal [facility] Family Medicine Office/Clini c [place] 07-30-2024 [...] humorously by the physician as looking like [place]aur[place] cheese on X-rays. She uses a bone [...] day(s), # 21 cap(s), Refills(s) 0, Pharmacy: [facility] [id number], 162, cm, 07/30/24 10:07:00 EST, Height/Length Dosing, 75.8, kg, 07/30/24 10:07:00 EST, Weight Dosing CBC w/ Auto Diff TSH With T4fr Reflex Vitamin B12 Level Vitamin D 25 Hydroxy 2. Hypercholesterolemia (E78.00: Pure hypercholesterolemia, unspecified) As below. Ordered: benzonatate, 200 mg = 1 cap(s), Oral, TID, X 7 day(s), # 21 cap(s), Refills(s) 0, Pharmacy: [facility] [id number], 162, cm, 07/30/24 10:07:00 EST, Height/Length Dosing, 75.8, kg, 07/30/24 10:07:00 EST, Weight Dosing CBC w/ Auto Diff TSH With T4fr Reflex Vitamin B12 Level Vitamin D 25 Hydroxy 3. Hyperlipidemia (E78.5: Hyperlipidemia, unspecified) Continue on a statin as before. Ordered: benzonatate, 200 mg = 1 cap(s), Oral, TID, X 7 day(s), # 21 cap(s), Refills(s) 0, Pharmacy: [facility] [id number], 162, cm, 07/30/24 10:07:00 EST, Height/Length Dosing, [...] day(s), # 21 cap(s), Refills(s) 0, Pharmacy: [facility] [id number], 162, cm, 07/30/24 10:07:00 EST, Height/Length Dosing, 75.8, kg, 07/30/24 10:07:00 EST, Weight Dosing CBC w/ Auto Diff Comprehensive Metab (more content not included)... Normal [facility] Comment on above: Result Comment: Elec [...] feel free to contact me at extension [phone]. Thank you! Daly Joy, ALEXN, RN, CCM, CCDS, CCDS-O CDI [employer] [place] [address] P: [phone] F: [phone] [email or web address] From: Christiano SHORT, Anamaria Harvey To: Benita MENJIVAR, Daly; Sent: 07/30/2024 15:17:44 EST Subject: RE: Pre-Visit Planning Caller Name: ISAURA HAYDEN; Caller Number: Adrian , M I could not address this today. Thanks Normal [facility] Family Medicine Office/Clini c Noteon 07-13-2024 [...] in 3-5 days Ordered: Rapid Strep POC [address] Follow-up No qualifying data available Patient Education Pharyngitis, [id number] Problem List/Past Medical History Ongoing Age-related osteoporosis [...] Strep POC Result: Negative (07/13/24 11:52:00) Normal [facility] Comment on above: Result Comment: Elec [...] Locations R1: This test was performed at: [facility], [address] [place] [address], [facility] , , [facility] Comment on above: Performed By: #### 2 [id number] #### [facility] [address] [place] [address] Ambulatory Visit Summaryon 0 05-07-2024 Ambulatory Visit [...] Tuesday 10:30 AM EST With: Christiano SHORT, Anamaria Harvey Where: [address] [address]- Tuesday 11:00 AM EST With: Where: [address] [address]- Medications What How Much When Instructions Unchanged [...] for choosing us for your care. Normal [facility] Family Medicine Office/Clini c Noteon 05-07-2024 [...] day(s), # 14 cap(s), Refills(s) 0, Pharmacy: [facility] [id number], 162, cm, 05/07/24 14:07:00 EDT, Height/Length Dosing, 76, kg, 05/07/24 14:07:00 EDT, Weight Dosing Body Mass Index (BMI) documented 3008F Current tobacco non-user 1036F Depression Screening Negative 3352F E&M of Est. Patient Low 20-29 Min 25325 Influenza immunization status assessed 1030F Medication list [...] Urnls Dip Stick Auto w/o Microscopy POC 14561 2. Non-smoker (Z78.9: Other specified health status) - Please continue to not smoke Ordered: doxycycline, 100 mg = 1 cap(s), Oral, BID, X 7 day(s), # 14 cap(s), Refills(s) 0, Pharmacy: [facility] [id number], 162, cm, 05/07/24 14:07:00 EDT, Height/Length Dosing, 76, kg, 05/07/24 14:07:00 EDT, Weight Dosing Body Mass Index (BMI) documented 3008F Current tobacco non-user 1036F Depression Screening Negative 3352F E&M of Est. Patient Low 20-29 Min 08278 Influenza immunization status assessed 1030F Medication list [...] day(s), # 14 cap(s), Refills(s) 0, Pharmacy: [facility] [id number], 162, cm, 05/07/24 14:07:00 EDT, Height/Length Dosing, 76, kg, 05/07/24 14:07:00 EDT, Weight Dosing Body Mass Index (BMI) documented 3008F Current tobacco non-user 1036F Depression Screening Negative 3352F E&M of Est. Patient Low 20-29 Min 69848 Influenza immunization status assessed 1030F Medication list [...] day(s), # 14 cap(s), Refills(s) 0, Pharmacy: [facility] [id number], 162, cm, 05/07/24 14:07:00 EDT, Height/Length Dosing, 76, kg, 05/07/24 14:07:00 EDT, Weight Dosing Body Mass Index (BMI) documented 3008F Current tobacco non-user 1036F Depression Screening Negative 3352F E&M of Est. Patient Low 20-29 Min 53081 Influenza immunization status assessed 1030F Medication list [...] stage 3a (more content not included)... [facility] Comment on above: Result Comment: Elec tronically Signed By: Christiano SHORT, Anamaria Harvey\.br\Date and Time Signed: 05/07/24 14:35 EDT Dexa Scanson 02-08-2024 Dexa Scans [id number]#1.0 0TIFF [facility] Consultation Noteon 02-07-20 Consultation Note [id number]#1.0 0TIFF [facility] RAD - MISCon 02-02-2024 RAD - MISC [id number] 60 [id number]#1.0 0TIFF [facility] RAD - MISC [id number] 60 [id number]#1.0 0TIFF [facility] Consultation Noteon 01-30-20 Consultation Note [id number] 60 [id number]#1.0 0TIFF [facility] Consultation Noteon 12-26-19 Consultation Note [id number] 50 [id number]#1.0 0TIFF Normal [facility] RAD - MISCon 12-21-2023 RAD - MISC [id number] 50 [id number]#1.0 0TIFF Normal [facility] RAD - MISC [id number] 50 [id number]#1.0 0TIFF Normal [facility] Consultation Noteon 12-09-19 Consultation Note [id number] 40 [id number]#1.0 0TIFF Normal [facility] Consultation Noteon 11-24-19 Consultation Note [id number]#1.0 0TIFF Normal [facility] Discharge Documentationon Discharge Documentation [id number]#1.0 0TIFF Normal [facility] Cytologyon 11-14-2023 Cytology Normal [facility] Comment on above: Result Comment: [facility] [address] [place] [address] Cytology Consultation Patient Name:ISAURA HAYDEN:1950 (Age: 73)Gender:FTaken:4Reported:11/16/2023 14:25Physician(s):Nabil Lord M.D. ([phone])Copy To: Rec. #:[id number]: #[id number] Final Cytologic Diagnosis Pelvic washings: No malignant cells identified. [facility]/11/16/2023 [place] [address], License number: [id number].Electronically Signed Out By Edie Day MD Clinical History Thickened endometrium/ post menopausal bleeding/ cervical stenosis. Gross Description Received was 35mL of clear colorless fluid unfixed labeled as Catracho, pelvic washings . CytoLyt added in lab. Unable to obtain cellblock, ThinPrep made. Source of Specimen Pelvic washings Non COMPUTER SCIENCE INTERN ThinPrep Fee Code(s): 1; 63567457, 33991 Surgical Pathologyon 024 Surgical Pathology Normal [facility] Comment on above: Result Comment: [facility] [address] [place] [address] Surgical Pathology Consultation Patient Name:ISAURA HAYDEN:1950 (Age: 73)Gender:FTaken:4Reported:11/16/2023hysician(s):Nabil Lord M.D. ([phone])Copy To: Rec. #:[id number]: #[id number] Final Pathologic Diagnosis Uterus, cervix, bilateral fallopian tubes, bilateral ovaries, TAHBSO: Cervix with no significant histopathologic abnormality Endometrium with cystic atrophy Myometrium with adenomyosis Bilateral adnexa with no significant histopathologic abnormality Report Electronically Signed Out nsk/11/16/2023Edie Day MD Interpretation performed at [facility], [address] [place] [address], License number: [id number]. Clinical History Thickened endometrium, postmenopausal bleeding, cervical [...] ovary L-N Remainder of endometrium (14, ss, [id number], A- K, m6) MONICO/MD kilgore/11/14/2023GR Specimen(s) Received Uterus, cervix, bilateral fallopian tubes, bilateral ovaries Fee Codes(s): 1; 71654 Consultation Noteon 11-10-19 Consultation Note [id number]#1.0 0TIFF Normal [facility] CBC AND AUTO DIFFon 11-09-19 ABSOLUTE BASOPHIL 0.1 X10E9/L Normal 0.0-0.2 [facility] Comment on above: Performed By: #### C BCA, CMP #### [facility] ([id number]) [address], [address] [place] [address] ABSOLUTE NEUTROPHIL 3.1 X10E9/L Normal 1.5-6.6 [facility] Comment on above: Performed By: #### C BCA, CMP #### [facility] ([id number]) [address], [address] [place] [address] Basophils/100 WBC (Bld) 0.9 % Normal [facility] Comment on above: Performed By: #### C REBEKA, CMP #### [facility] ([id number]) [address] [address] [place] [address] Eosinophils (Bld) [#/Vol] 0.2 10*3/uL Normal 0.0-0.4 [facility] Comment on above: Performed By: #### C BCA, CMP #### [facility] ([id number]) [address], [facility] [address] [place] [address] Eosinophils/100 WBC (Bld) 4.3 % Normal [facility] Comment on above: Performed By: #### C BCA, CMP #### [facility] ([id number]) [address], [address] [place] [address] Erythrocyte distribution width (RBC) [Ratio] 13.1 % Normal 11.5-15.0 [facility] Comment on above: Performed By: #### C BCA, CMP #### [facility] ([id number]) [address] [address] [place] [address] Hematocrit (Bld) [Volume fraction] 35.6 % Normal 35-47 [facility] Comment on above: Performed By: #### C BCA, CMP #### [facility] ([id number]) [address], [address] [place] [address] Hemoglobin (Bld) [Mass/Vol] 12.4 g/dL Normal 11.7-15.5 [facility] Comment on above: Performed By: #### C BCA, CMP #### [facility] ([id number]) [address], [address] [place] [address] Lymphocytes (Bld) [#/Vol] 1.7 10*3/uL Normal 1.0-3.5 [facility] Comment on above: Performed By: #### C REBEKA, CMP #### [facility] ([id number]) [address], [facility] [address] [place] [address] Lymphocytes/100 WBC (Bld) 31.2 % Normal [facility] Comment on above: Performed By: #### C REBEKA, CMP #### [facility] ([id number]) [address], [address] [place] [address] MCH (RBC) [Entitic mass] 33.3 pg Normal 27-34 [facility] Comment on above: Performed By: #### C REBEKA, CMP #### [facility] ([id number]) [address], [address] [place] [address] MCHC (RBC) [Mass/Vol] 34.7 g/dL Normal 32-36 [facility] Comment on above: Performed By: #### C BCA, CMP #### [facility] ([id number]) [address], [address] [place] [address] MCV (RBC) [Entitic vol] 96 fL Normal 80-100 [facility] Comment on above: Performed By: #### C BCA, CMP #### [facility] ([id number]) [address], [address] [place] [address] Monocytes (Bld) [#/Vol] 0.5 10*3/uL Normal 0-0.9 [facility] Comment on above: Performed By: #### C BCA, CMP #### [facility] ([id number]) [address] [place] [address] Monocytes/100 WBC (Bld) 8.2 % Normal [facility] Comment on above: Performed By: #### C BCA, CMP #### [facility] ([id number]) [address] [place] [address] Neutrophils/100 WBC (Bld) 55.4 % Normal [facility] Comment on above: Performed By: #### C BCA, CMP #### [facility] ([id number]) [address] [place] [address] Platelet mean volume (Bld) [Entitic vol] 8.2 fL Normal 7-12 [facility] Comment on above: Performed By: #### C BCA, CMP #### [facility] ([id number]) [address], [address] [place] [address] Platelets (Bld) [#/Vol] 284 10*3/uL Normal 150-450 [facility] Comment on above: Performed By: #### C BCA, CMP #### [facility] ([id number]) [address] [place] [address] RBC COUNT 3.72 X10E12/L Low 3.80-5.20 [facility] Comment on above: Performed By: #### C BCA, CMP #### [facility] ([id number]) [address] [place] [address] WBC (Bld) [#/Vol] 5.6 10*3/uL Normal 4.0-11.0 [facility] Comment on above: Performed By: #### C BCA, CMP #### [facility] ([id number]) [address] [place] [address] COMPREHENSIVE METABOLIC PANE Rashi 11-09-2023 Albumin [Mass/Vol] 4.5 g/dL Normal 3.2-5.3 [facility] Comment on above: Performed By: #### C BCA, CMP #### [facility] ([id number]) [address], [address] [place] [address] ALP [Catalytic activity/Vol] 48 U/L Normal 39-130 [facility] Comment on above: Performed By: #### C BCA, CMP #### [facility] ([id number]) [address] [place] [address] ALT [Catalytic activity/Vol] 14 U/L Normal 0-31 [facility] Comment on above: Performed By: #### C BCA, CMP #### [facility] ([id number]) [address] [place] [address] Anion gap [Moles/Vol] 9 mmol/L Normal 5-15 [facility] Comment on above: Performed By: #### C BCA, CMP #### [facility] ([id number]) [address] [place] [address] AST [Catalytic activity/Vol] 20 U/L Normal 0-41 [facility] Comment on above: Performed By: #### C BCA, CMP #### [facility] ([id number]) [address] [place] [address] Bilirubin [Mass/Vol] 0.5 mg/dL Normal 0.3-1.2 [facility] Comment on above: Performed By: #### C BCA, CMP #### [facility] ([id number]) [address] [place] [address] Calcium [Mass/Vol] 9.2 mg/dL Normal 8.5-10.5 [facility] Comment on above: Performed By: #### C BCA, CMP #### [facility] ([id number]) [address] [address] [place] [address] Chloride [Moles/Vol] 106 mmol/L Normal 98-109 [facility] Comment on above: Performed By: #### C BCA, CMP #### [facility] ([id number]) [address] [address] [place] [address] CO2 [Moles/Vol] 28 mmol/L Normal 22-32 [facility] Comment on above: Performed By: #### C BCA, CMP #### [facility] ([id number]) [address] [address] [place] [address] Creatinine [Mass/Vol] 1.17 mg/dL High 0.40-1.00 [facility] Comment on above: Result Comment: METH OD TRACEABLE TO IDMS STANDARD Performed By: #### C BCA, CMP #### [facility] ([id number]) [address] [address] [place] [address] GFR/1.73 sq M.predicted among non-blacks MDRD (S/P/Bld) [Vol rate/Area] 50 mL/min/{1.73_m2} Low >59 [facility] Comment on above: Result Comment: Reported eGFR is based on the CKD-EPI 2020 equation that does not use a race coefficient. Performed By: #### C BCA, CMP #### [facility] ([id number]) [address] [address] [place] [address] Glucose [Mass/Vol] 110 mg/dL High 65-99 [facility] Comment on above: Performed By: #### C BCA, CMP #### [facility] ([id number]) [address] [address] [place] [address] Potassium [Moles/Vol] 4.1 mmol/L Normal 3.5-5.0 [facility] Comment on above: Performed By: #### C BCA, CMP #### [facility] ([id number]) [address] [address] [place] [address] Protein [Mass/Vol] 7.2 g/dL Normal 6.0-8.0 [facility] Comment on above: Performed By: #### C BCA, CMP #### [facility] ([id number]) [address] [place] [address] Sodium [Moles/Vol] 143 mmol/L Normal 134-146 [facility] Comment on above: Performed By: #### C BCA, CMP #### [facility] ([id number]) [address] [place] [address] Urea nitrogen [Mass/Vol] 18 mg/dL Normal 5-27 [facility] Comment on above: Performed By: #### C BCA, CMP #### [facility] ([id number]) [address] [place] [address] XR CHEST 2 VWSon 11-09-2023 XR CHEST 2 VWS XR CHEST 2 VWS History: Preop testing Exam/Technique: PA and lateral chest Comparison: None Findings: There is no evidence of active pulmonary or pleural disease. Cardiac and mediastinal contours are within normal limits. IMPRESSION: No evidence of active pulmonary disease demonstrated. Finalized by Lewis Lyn MD on 11/09/2023 10:52 AM Normal [facility] Consultation Noteon 10-25-19 Consultation Note [id number]#1.0 0TIFF Normal [facility] Consultation Noteon 10-03-19 Consultation Note [id number]#1.0 0TIFF Normal [facility] RAD - MISCon 10-03-2023 RAD - MISC [id number]#1.0 0TIFF Normal [facility] Consultation Noteon 09-29-19 Consultation Note [id number]#1.0 0TIFF Normal [facility] Consultation Noteon 09-21-19 Consultation Note [id number]#1.0 0TIFF Normal [facility] Dexa Scanson 09-21-2023 Dexa Scans [id number]#1.0 0TIFF Normal [facility] Consultation Noteon 09-12-19 Consultation Note [id number]#1.00 TIFF Normal [facility] Patient Logson 09-02-2023 Patient Logs [id number]#1.00 TIFF Normal [facility] Ambulatory Visit Summaryon 0 09-01-2023 Ambulatory [...] AM EST With: Anamaria Chinchilla MD Where: [facility] Normal [address] [place], [place] [address]- \.br\ Medications\.br\ What How Much When Instructions\.br\ [...] for choosing us for your care.\.br\ \.br\ [facility] Consultation Noteon 09-01-19 Consultation Note [id number]#1.0 0TIFF Normal [facility] Family Medicine Office/Clini c Noteon 09-01-2023 [...] 96.3 fL (05/11/23) Chloride: 108 mmol/L (05/11/23) Tyrrell Absolute: 0.4 E9/L (05/11/23) CO2: 27 mmol/L (05/11/23) Tyrrell Auto: 7.8 % (05/11/23) Creatinine: 1.3 mg/dL [...] Ongoing Ag (more content not included)... Normal [facility] Comment on above: Result Comment: Elec [...] Spices. Seasoni (more content not included)... Normal [facility] Consultation Noteon 08-24-19 24 Consultation Note [id number]#1.0 0TIFF [facility] RAD - CT Reporton 08-24-2023 RAD - CT Report [id number]#1.0 0TIFF [facility] Operative Reporton Operative Report [id number]#1.0 0TIFF Normal [facility] Patient Correspondenceon Patient Correspondence [id number]#1.0 0TIFF [facility] Provider Letteron 08-12-2023 Provider Letter [address] [place] [address] August 12, 2023 ISAURA METZGERHOLDER [address] [place] [id number] : [address] Das, The above patient has been evaluated at your request for preoperative clearance. After assessment of available pertinent labs and diagnostic tests, I feel this patient is medically optimized for surgery. Final discretion of whether the patient is cleared for surgery remains up to the surgeon/anesthesiologi st. Thank you, YISEL Vásquez [facility] Ambulatory Visit Summaryon 1 10-12-2022 Ambulatory Visit Summary ISAURA HAYEDN :1950 Visit Date:08/11/2023 Ambulatory Visit Instructions Your [...] AM EST With: Anamaria Chinchilla MD Where: [facility] Normal [address] [place], [place] [address]- \.br\ Medications\.br\ What How Much When Instructions\.br\ [...] choosing us for your care.\.br\ \.br\ [place] Family Medicine Office/Clini c [place] 08-11-2023 Family [...] g/dL Normal 6.0 - 7.8 gm/dL F [facility] Remisol Sodium [Moles/Vol] 141 mmol/L Normal [...] PM) Normal Negative FT UA Auto SS Sandwich.plasma/Lith ium.RBC (Bld) [Mass ratio] 0-3 /HPF Normal [...] Desc Clean Catch (05/11/23 12:05 PM) Normal [facility] UA Auto SS Urobilinogen Qn (U) 0.6742049 {Elon'U}/dL Normal 0.0 - 1.0 EU/dL FT UA Auto SS WBC Auto Ql (U) 1+ *ABN* (05/11/23 12:05 PM) Invalid Interpretation Code Negative FT UA Auto SS WBC LM.HPF (Urine sed) [#/Area] 0-5 /HPF Normal 0-5/HPF FT UA Auto SS CULTURE URINEon 07-06-2022 CULTURE URINE Culture Observations : LIGHT GROWTH OF MIXED GENITAL NAN. NO POTENTIAL PATHOGENS SEEN. Normal [facility] Comment on above: Performed By: #### U RCX #### [facility] [address] [place] [address] Dr. Melchor Brock UA (CLEAN/CATCH) MICROSCOPIC IF INDICATEon 07-06-2022 Bilirubin Ql (U) Negative Normal NEGATIVE [facility] Comment on above: Performed By: #### U MICRO, UARMICR #### [facility] [address] [place] [address] Dr. Melchor Brock Clarity (U) CLEAR Normal CLEAR [facility] Comment on above: Performed By: #### U MICRO, UARMICR #### [facility] [address] [place] [address] Dr. Melchor Brock Color (U) LT. YELLOW Normal YELLOW [facility] Comment on above: Performed By: #### U MICRO, UARMICR #### [facility] [address] [place] [address] Dr. Melchor Brock Glucose Ql (U) Negative Normal NEGATIVE [facility] Comment on above: Performed By: #### U MICRO, UARMICR #### [facility] [address] [place] [address] Dr. Melchor Brock Hemoglobin Ql (U) TRACE-INTACT Abnormal NEGATIVE [facility] Comment on above: Performed By: #### U MICRO, UARMICR #### [facility] [address] [place] [address] Dr. Melchor Brock Ketones Ql (U) Negative Normal NEGATIVE [facility] Comment on above: Performed By: #### U MICRO, UARMICR #### [facility] [address] [place] [address] Dr. Melchor Brock LEUKOCYTES TRACE Abnormal NEGATIVE [facility] Comment on above: Performed By: #### U MICRO, UARMICR #### [facility] [address] [place] [address] Dr. Melchor Brock Nitrite Ql (U) Negative Normal NEGATIVE [facility] Comment on above: Performed By: #### U MICRO, UARMICR #### [facility] [address] [place] [address] Dr. Melchor Brock pH (U) 6.0 [pH] Normal 5-9 [facility] Comment on above: Performed By: #### U MICRO, UARMICR #### [facility] [address] [place] [address] Dr. Melchor Brock SPEC GRAVITY 1.020 Normal 1.005-<=1.025 [facility] Comment on above: Performed By: #### U MICRO, UARMICR #### [facility] [address] [place] [address] Dr. Melchor Brock UA PROTEIN Negative Normal NEGATIVE/ TRACE [facility] Comment on above: Performed By: #### U MICRO, UARMICR #### [facility] [address] [place] [address] Dr. Melchor Brock UR MICRO IND INDICATED Normal [facility] Comment on above: Performed By: #### U MICRO, UARMICR #### [facility] [address] [place] [address] Dr. Melchor Brock Urobilinogen Qn (U) 0.2 {Leon'U}/dL Normal 0.2 - 1. 0 [facility] Comment on above: Performed By: #### U MICRO, UARMICR #### [facility] [address] [place] [address] Dr. Melchor Brock URINE MICROSCOPIC ONLYon BACTERIA NONE SEEN Normal NONE SEEN [facility] Comment on above: Performed By: #### G SHON, LIPID #### [facility] [address] [place] [address] Dr. Melchor Brock Bacteria identified Cx Nom (U) CX ALREADY ORDERED Normal [facility] Comment on above: Performed By: #### G SHON, LIPID #### [facility] [address] [place] [address] Dr. Melchor Brock CAST NONE SEEN Normal NONE SEEN [facility] Comment on above: Performed By: #### G SHON, LIPID #### [facility] [address] [place] [address] Dr. Melchor Brock Crystals LM Nom (Urine sed) NONE SEEN Normal NONE SEEN [facility] Comment on above: Performed By: #### G SHON, LIPID #### [facility] [address] [place] [address] Dr. Melchor Brock Epithelial cells LM Ql (Urine sed) RARE Normal NONE SEEN /RARE [facility] Comment on above: Performed By: #### G SHON, LIPID #### [facility] [address] [address] [address] Mlechor Brock MUCOUS NONE SEEN Normal NONE SEEN [facility] Comment on above: Performed By: #### G SHON, LIPID #### [facility] [address] [address] [address] Melchor Brock RBC 0-2 Normal 0-2 [facility] Comment on above: Performed By: #### G SHON, LIPID #### [facility] [address] [address] [address] Melchor Brock WBC 0-2 Abnormal NONE SEEN [facility] Comment on above: Performed By: #### G SHON, LIPID #### [facility] [address] [address] [address] Melchor Brock MG MAMM SCREEN 3D SARAHI CADon 03-15-2022 MG MAMM SCREEN 3D SARAHI CAD Patient: ISAURA HAYDEN Exam Date: 03/15/2022 : 1950 Gender:F Ordering : DR FARA BOOKER . Admission #: [id number] Family : Order #: [id number] CLICK HERE TO VIEW EXAM RADIOLOGY REPORT PROCEDURE: MAMMOGRAM SCREENING 3D BILATERAL CAD COMPARISON: MG MAMM SCREEN 3D SARAIH CAD, 03/13/2021. MG MAMM LT DIAG W CAD, 03/12/2020. INDICATIONS: Screening mammography Calculator Name NCI Breast Cancer Risk Assessment Tool 5 Year Breast Cancer Risk 1.40% Lifetime Breast Cancer Risk 4.30% Personal Breast Cancer No Personal Ovarian Cancer No Treatments None Family Cancers Aunt-maternal with breast cancer at age 70; Father with lung cancer at age 70. LOCATION: [facility] BREAST COMPOSITION: Heterogeneously dense,which may obscure [...] Cárdenas M.D. on 03/15/2022 at 11:41 Normal [facility] GLUCOSE BLOODon 02-09-2022 Glucose [Mass/Vol] 99 mg/dL Normal 74-106 [facility] Comment on above: Performed By: #### G SHON, LIPID #### [facility] [address] [address] [address] Melchor Brock LIPID PROFILEon 02-09-2022 CHOL-HDL RATIO NORM SEE BELOW Normal [facility] Comment on above: Result Comment: 3.3 - 4.4 LOW RISK 4.4 - 7.1 AVERAGE RISK 7.1 - 11.0 MODERATE RISK >11.0 HIGH RISK Performed By: #### G SHON, LIPID #### [facility] [address] [address] [address] Melchor Brock Cholesterol [Mass/Vol] 202 mg/dL Critically high <=200 [facility] Comment on above: Performed By: #### G SHON, LIPID #### [facility] [address] [address] [address] Melchor Brock Cholesterol in HDL [Mass/Vol] 56 mg/dL Normal 40-60 [facility] Comment on above: Performed By: #### G SHON, LIPID #### [facility] [address] [address] [address] Melchor Brock Cholesterol in LDL [Mass/Vol] 112.6 mg/dL Normal [facility] Comment on above: Performed By: #### G SHON, LIPID #### [facility] [address] [address] [address] Melchor Brock Cholesterol.total/C holesterol in HDL [Mass ratio] 3.6 {ratio} Normal [facility] Comment on above: Performed By: #### G SHON, LIPID #### [facility] [address] [address] [address] Melchor Brock HDL NORMAL > or = 60 mg/dl - LO W CARDIOVASCULAR RISK <40 mg/dl - HIGH CARDIOVASCULAR RISK Normal [facility] Comment on above: Performed By: #### G SHON, LIPID #### [facility] [address] [place] [address] Dr. Melchor Brock LDL CALC NORMAL SEE BELOW Normal [facility] Comment on above: Result Comment: <100 mg/dl OPTIMAL 100 - 129 mg/dl NEAR OR ABOVE OPTIMAL 130 - 159 mg/dl BORDERLINE HIGH 160 - 189 mg/dl HIGH >190 mg/dl VERY HIGH Performed By: #### G SHON, LIPID #### [facility] [address] [place] [address] Dr. Melchor Brock Triglyceride [Mass/Vol] 167 mg/dL Critically high <=150 [facility] Comment on above: Performed By: #### G SHON, LIPID #### [facility] [address] [place] [address] Dr. Melchor Brock VLDL CALC 33.4 mg/dL Normal [facility] Comment on above: Performed By: #### G SHON, LIPID #### [facility] [address] [place] [address] Dr. Melchor Brock LIPID PROFILEon 11-05-2021 CHOL-HDL RATIO NORM SEE BELOW Normal [facility] Comment on above: Result Comment: 3.3 - 4.4 LOW RISK 4.4 - 7.1 AVERAGE RISK 7.1 - 11.0 MODERATE RISK >11.0 HIGH RISK Performed By: #### L IPID, BMP #### [facility] [address] [place] [address] Dr. Melchor Brock Cholesterol [Mass/Vol] 244 mg/dL Critically high <=200 [facility] Comment on above: Performed By: #### L IPID, BMP #### [facility] [address] [place] [address] Dr. Melchor Brock Cholesterol in HDL [Mass/Vol] 60 mg/dL Normal 40-60 [facility] Comment on above: Performed By: #### L IPID, BMP #### [facility] [address] [place] [address] Dr. Melchor Brock Cholesterol in LDL [Mass/Vol] 158.4 mg/dL Normal [facility] Comment on above: Performed By: #### L IPID, BMP #### [facility] [address] [place], [place] [id number] Dr. Melchor Brock Cholesterol.total/C holesterol in HDL [Mass ratio] 4.1 {ratio} Normal [facility] Comment on above: Performed By: #### L IPID, BMP #### [facility] [address] [place] [address] Dr. Melchor Brock HDL NORMAL > or = 60 mg/dl - LO W CARDIOVASCULAR RISK <40 mg/dl - HIGH CARDIOVASCULAR RISK Normal [facility] Comment on above: Performed By: #### L IPID, BMP #### [facility] [address] [place] [address] Dr. Melchor Brock LDL CALC NORMAL SEE BELOW Normal [facility] Comment on above: Result Comment: <100 mg/dl OPTIMAL 100 - 129 mg/dl NEAR OR ABOVE OPTIMAL 130 - 159 mg/dl BORDERLINE HIGH 160 - 189 mg/dl HIGH >190 mg/dl VERY HIGH Performed By: #### L IPID, BMP #### [facility] [address] [place] [address] Dr. Melchor Brock Triglyceride [Mass/Vol] 128 mg/dL Normal <=150 [facility] Comment on above: Performed By: #### L IPID, BMP #### [facility] [address] [place] [address] Dr. Melchor Brock VLDL CALC 25.6 mg/dL Normal [facility] Comment on above: Performed By: #### L IPID, BMP #### [facility] [address] [place] [address] Dr. Melchor Brock PROF CHEM 8 (BAS METB)on Anion gap [Moles/Vol] 10.7 mmol/L Normal [facility] Comment on above: Performed By: #### L IPID, BMP #### [facility] [address] [place] [address] Dr. Melchor Brock Calcium [Mass/Vol] 7.8 mg/dL Critically low 8.4-10.2 [facility] Comment on above: Performed By: #### L IPID, BMP #### [facility] [address] [place] [address] Dr. Melchor Brock Chloride [Moles/Vol] 103 mmol/L Normal 98-107 [facility] Comment on above: Performed By: #### L IPID, BMP #### [facility] [address] [place] [address] Dr. Melchor Brock CO2 [Moles/Vol] 28.4 mmol/L Normal 22.0-30.0 [facility] Comment on above: Performed By: #### L IPID, BMP #### [facility] [address] [place] [address] Dr. Melchor Brock Creatinine [Mass/Vol] 1.05 mg/dL Critically high 0.52-1.04 [facility] Comment on above: Performed By: #### L IPID, BMP #### [facility] [address] [place] [address] Dr. Melchor Brock EGFR-AF LUXEMBOURGER >60 Normal >=60 [facility] Comment on above: Performed By: #### L IPID, BMP #### [facility] [address] [place] [address] Dr. Melchor Brock EGFR-NON AF LUXEMBOURGER 52 mL/min/1.73m2 Critically low >=60 [facility] Comment on above: Performed By: #### L IPID, BMP #### [facility] [address] [place] [address] Dr. Melchor Brock Glucose [Mass/Vol] 98 mg/dL Normal 74-106 [facility] Comment on above: Performed By: #### L IPID, BMP #### [facility] [address] [place] [address] Dr. Melchor Brock Potassium [Moles/Vol] 4.1 mmol/L Normal 3.4-5.0 [facility] Comment on above: Performed By: #### L IPID, BMP #### [facility] [address] [place] [address] Dr. Melchor Brock Sodium [Moles/Vol] 138 mmol/L Normal 137-145 [facility] Comment on above: Performed By: #### L IPID, BMP #### [facility] [address] [place] [address] Dr. Melchor Brock Urea nitrogen [Mass/Vol] 15.0 mg/dL Normal 7.0-17.0 [facility] Comment on above: Performed By: #### L IPID, BMP #### [facility] [address] [address] [address] Melchor Brock Urea nitrogen/Creatinine [Mass ratio] 14.3 mg/mg Normal [facility] Comment on above: Performed By: #### L IPID, BMP #### [facility] [address] [address] [address] Melchor Brock ECHOCARDIO M/2D COMPLETEon 0 10-05-2021 ECHOCARDIO M/2D COMPLETE Patient: ISAURA HAYDEN Exam Date: 10/05/2021 : 1950 Gender:F Ordering : DR ANJELICA GAMBINO . Admission #: [id number] Family : Order #: [id number] CLICK HERE TO VIEW EXAM ECHOCARDIOGRAM REPORT [...] Area(A4C): 20.70 cm2 Left Atrium Systolic Volume(A2C): 30815 mm3 Left Atrium Systolic Volume(A4C): 95557 mm3 Mitral Valve MV E to A Ratio: 1.10 Deceleration [place]: 7410 mm/s2 Mitral Valve A-Wave Peak Velocity: [...] Coy Dove M.D. on 10/06/2021 at 08:32 [facility] XR DEXA BONE DENSITYon 09-18 XR [...] necksInterpreted by:ARLEY Valenciaigned by:Lora Mondragon MD09/12/18Final result [facility] DIGITAL SCREEN BILATERAL on 09-12-2017 [facility] DIGITAL SCREEN BILATERAL REPORT: BILATERAL DIGITAL [...] NEGATIVE)Interpreted by:ARLEY Valenciaigned by:Lora Mondragon MD09/12/18Final result [facility] Vital Signs Date Time Vital Sign Value Performing Clinician Facility 02-27-2025 16:08-0400 Body height 162.56 cm [facility] 02-27-2025 16:08-0400 Body mass index (BMI) [Ratio] 28.84 kg/m2 [facility] 02-27-2025 16:08-0400 Body surface area Derived from formula 1.85 m2 [facility] 02-27-2025 16:08-0400 Body weight 76.2 kg [facility] 02-27-2025 16:08-0400 Diastolic blood pressure 62 mm[Hg] [facility] 02-27-2025 16:08-0400 Heart rate 68 /min [facility] 02-27-2025 16:08-0400 Systolic blood pressure 106 mm[Hg] [facility] 08-28-2024 09:11-0500 Body mass index (BMI) [Ratio] 29.01 kg/m2 Bentley Pippa DO Work Phone: [facility] 08-28-2024 09:11-0500 Body weight 76.66 kg Bentley Pippa DO Work Phone: [facility] 08-28-2024 09:11-0500 Diastolic blood pressure 70 mm[Hg] Bentley Pippa DO Work Phone: [facility] 08-28-2024 09:11-0500 Systolic blood pressure 120 mm[Hg] Bentley Pippa DO Work Phone: [facility] 12-27-2023 10:45-0400 Body height 162.6 cm Mary GOMEZ Work Phone: [facility] 12-27-2023 10:45-0400 Body mass index (BMI) [Ratio] 28.65 kg/m2 Mary [facility]ton PA [facility] 12-27-2023 10:45-0400 Body temperature 97.81 [degF] Mary Pennington PA [facility] Phone[facility] 12-27-2023 10:45-0400 Body weight 75.75 kg Mary Pennington PA Work Phone: [facility] [employer] [facility] 12-27-2023 10:45-0400 Diastolic blood pressure 71 mm[Hg] Mary Pennington PA Work Phone: [facility] 12-27-2023 10:45-0400 Heart rate 57 /min Mary Pennington PA Work Phone: [facility] 12-27-2023 10:45-0400 Respiratory rate 16 /min Mary Pennington PA Work Phone: [facility] [employer] 12-27-2023 10:45-0400 SaO2% (BldA) [Mass fraction] 99 % Mary Pennington PA Work Phone: [facility] 12-27-2023 10:45-0400 Systolic blood pressure 148 mm[Hg] Mary Pennington PA Work Phone: [facility] 11-29-2023 10:41-0400 Body height 162.6 cm Mary Pennington PA Work Phone: [facility] 11-29-2023 10:41-0400 Body mass index (BMI) [Ratio] 28.48 kg/m2 Mary Pennington PA Work Phone: [facility] 11-29-2023 10:41-0400 Body temperature 97.81 [degF] Mary Pennington PA Work Phone: [facility] 11-29-2023 10:41-0400 Body weight 75.3 kg Mary Pennington PA [facility] 11-29-2023 10:41-0400 Diastolic blood pressure 71 mm[Hg] Mary Pennington PA Work Phone: [facility] 11-29-2023 10:41-0400 Heart rate 57 /min Mary Pennington PA Work Phone: [facility] 11-29-2023 10:41-0400 Respiratory rate 16 /min Mary Sigalane PA Work Phone: [facility] 11-29-2023 10:41-0400 SaO2% (BldA) [Mass fraction] 100 % Mary Pennington PA Work Phone: [facility] 11-29-2023 10:41-0400 Systolic blood pressure 142 mm[Hg] Mary Sigalane PA Work Phone: [facility] 11-07-2023 10:32-0400 Body height 162.6 cm [facility] 11-07-2023 10:32-0400 Body mass index (BMI) [Ratio] 28.15 kg/m2 [facility] 11-07-2023 10:32-0400 Body weight 74.39 kg [facility] 10-26-2023 14:38-0500 Body temperature 98.29 [degF] Nabil Lord MD Work Phone: [facility] 10-26-2023 14:38-0500 Diastolic blood pressure 90 mm[Hg] Nabil Lord MD Work Phone: [facility] 10-26-2023 14:38-0500 Heart rate 67 /min Nabil Lord MD Work Phone: [facility] 10-26-2023 14:38-0500 SaO2% (BldA) [Mass fraction] 98 % Nabil Lord MD Work Phone: [facility] 10-26-2023 14:38-0500 Systolic blood pressure 158 mm[Hg] Nabil Lord MD Work Phone: [facility] 10-26-2023 14:35-0500 Body mass index (BMI) [Ratio] 29.18 kg/m2 Nabil Lord MD Work Phone: [facility] [employer] 10-26-2023 14:35-0500 Body weight 77.11 kg Nabil Lord MD Work Phone: [facility] [employer] Encounters Encounter Date Encounter Type Care Provider Facility Start: 08-01-2025 ambulatory Anamaria Chinchilla Facility :[facility] [place] Start: 04-12-2025 End: 04-12-2025 Clinisync Result Encounter Bentley Pippa DO Work Phone: [facility] External [facility] Unsolicited Start: 04-12-2025 End: 04-12-2025 Clinis[facility] Result Encounter Bentley Pippa DO Work Phone: [facility] External [facility] Unsolicited Start: 02-27-2025 Split Srvc Kaitlin Reza rne Other [facility] Start: 01-28-2025 End: 01-28-2025 ambulatory Anamaria Chinchilla Facility:[facility] [place] Start: 10-19-2024 End: 10-19-2024 Lab Drop off Violet L Leonidas [facility] Start: 10-19-2024 End: 10-19-2024 ambulatory Violet L Leonidas [facility] Start: 10-05-2024 End: 10-05-2024 Clinisync Result Encounter Bentley Pippa DO Work Phone: [facility] External [facility] Unsolicited Start: 10-05-2024 End: 10-05-2024 Clinisync Result Encounter Bentley Pippa DO Work Phone: [facility] External [facility] Unsolicited Start: 09-17-2024 End: 09-17-2024 ambulatory Violet L Leonidas [facility] Start: 09-11-2024 End: 09-11-2024 ambulatory Kushal Keith Facility:[facility] Start: 09-10-2024 End: 09-10-2024 ambulatory Anamaria [...] Start: 08-27-2024 End: 08-27-2024 ambulatory Anamaria Chinchilla Facility:[facility] [place] Start: 08-09-2024 End: 08-09-2024 Lab Drop off Anamaria Chinchilla [facility] Start: 08-09-2024 End: 08-09-2024 ambulatory Anamaria Chinchilla Facility:[facility] Start: 07-30-2024 End: 07-30-2024 ambulatory MD Anamaria Chinchilla Facility: [facility] Start: 07-30-2024 End: 07-30-2024 ambulatory MD Anamaria Chinchilla Facility: [facility] Start: 07-13-2024 End: 07-13-2024 ambulatory VIPUL OBANDO Facility: [facility] [place] Start: 05-07-2024 End: 05-07-2024 Lab Drop off Anamaria Chinchilla [facility] Start: 05-07-2024 End: 05-07-2024 ambulatory MD Anamaria Chinchilla Facility:[facility] Start: 12-27-2023 End: 12-27-2023 ambulatory [facility] Start: 12-27-2023 End: 12-27-2023 Postop follow up visit related to original px Mary Pennington PA Work Phone: Lurdes Mckenzie [facility] Comment on above: Encounter for postop erative care (Primary Dx) Start: 11-29-2023 End: 11-29-2023 [facility] Start: 11-29-2023 End: 11-29-2023 Postop follow up visit related to original px Mary Pennington PA Work Phone: Lurdes Mckenzie [facility] Comment on above: Encounter for postop erative care (Primary Dx) Start: 11-14-2023 End: 11-14-2023 Evaluation and management of inpatient [facility] Start: 11-14-2023 End: 11-14-2023 Evaluation and management of inpatient [facility] Start: 11-09-2023 Encounter for other preprocedural examination [facility] Start: 11-09-2023 End: 11-10-2023 ambulatory [facility] Start: 11-07-2023 End: 11-07-2023 Evaluation and management of inpatient ANJELICA GAMBINO [facility] Start: 11-07-2023 End: 11-07-2023 Admission to [facility] Phone Call Provider 2 [facility] Start: 10-28-2023 Patient encounter status Nabil Lord MD Work Phone: [facility] Start: 10-28-2023 Telephone encounter Nabil andersen MD Work Phone: [facility] Start: 10-26-2023 End: 10-26-2023 ambulatory NABIL Britton CAROLYN [facility] Start: 10-26-2023 End: 10-26-2023 Office outpatient new 60 minutes Nabil Lord MD Work Phone: [facility] Comment on above: Endometrial thickeni ng on ultrasound (Primary Dx); Postmenopausal bleeding Start: 10-19-2023 ambulatory ANJELICA GAMBINO [facility] Start: 10-19-2023 Telephone encounter Linette Ga RN [facility] Start: 10-11-2023 End: 10-11-2023 ambulatory BENTLEY PIPPA Not Available Start: 09-01-2023 End: 09-01-2023 ambulatory VIPUL OBANDO Facility:[facility] Start: 08-11-2023 End: 08-11-2023 ambulatory MD Anamaria Chinchilla Facility:[facility] [place] Start: 05-11-2023 End: 05-11-2023 Lab Drop off Violet Lauren [facility] Start: 08-03-2022 End: 08-04-[address] [...] 09-12-2017 End: 09-13-2017 Ambulatory [facility] Procedures Date Procedure Procedure Detail [...] Adult BMI Screening Adult BMI Screen ing [facility] Start: 11-28-2024 Adult BMI Screening Adult BMI Screen ing [facility] Start: 11-13-2024 Tobacco [facility]ening [facility] Start: 10-25-2024 Adult BMI Screening Adult BMI Screen ing [facility] Start: 10-25-2024 Tobacco Screening [facility] Start: 08-28-2024 End: 08-28-2025 DXA Skeletal [...] BCP OB [address] [place] [id number] Bentley Das, DO [address] [place] [address] Arrived [facility] Comment on above: Arrived Start: 04-22-2024 Influenza vaccination Influenza Vacc ine [facility] Start: 12-27-2023 End: 12-27-2023 Patient encounter procedure 12/27/2023 11:00 AM EDT Office Visit Lurdes Mckenzie [facility] [address] [place] [phone] Mary Pennington PA [address] [place], [place] [id number] Lurdes L Montague [facility] Start: 11-29-2023 End: 11-29-2023 Patient encounter procedure 11/29/2023 10:30 AM EDT Office Visit Lurdes L Montague [facility] [address] [place] [address] Mary Pennington PA [address] [place], [place] [id number] Lurdes Rosado Montague [facility] Start: 11-14-2023 End: 11-14-2023 Admission to same day surgery center 11/14/2023 11:00 AM EDT - 11/14/2023 1:00 PM EDT Surgery [facility] - Surgery [address] [place] [address] Nabil Lord MD [address] [facility] [place] [address] DAVINCI HYSTERECTOMY SALPINGO OOPHORECTOMY(WITH FROZEN SECTION AND POSSIBLE STAGING) [facility] - [facility] Comment on above: DAVINCI HYSTERECTOMY SALPINGO OOPHORECTOMY(WITH FROZEN SECTION AND POSSIBLE STAGING) Start: 11-14-2023 End: 11-14-2023 DAVINCI HYSTERECTOMY SALPINGO OOPHORECTOMY DAVINCI HYSTERECTOMY SALPINGO OOPHORECTOMY THICKENED ENDOMETRUM/POST MENOPAUSAL BLEEDING/CERVICAL STENOSIS 11/14/2023 11:00 AM EDT [facility] Start: 11-14-2023 Subsequent hospital visit by physician 11/14/2023 11:00 AM EDT Hospital Encounter [facility] - Surgery [address] [place] [address] [place] [address] [place] [address], [address] [place] [address] [facility] - Surgery Start: 11-07-2023 End: 11-07-2023 Admission to establishment 11/07/2023 10:30 AM EDT Support Visit [facility] On [address] [address] [facility] Start: 10-28-2023 End: 10-27-2024 XR Chest PA and Lateral X-ray chest 2 views Imaging Routine Preop testing Expected: 10/28/2023, Expires: 10/27/2024 [facility] Comment on above: Expected: 10/28/2023 , Expires: 10/27/2024 Start: 10-26-2023 End: 10-26-2023 Patient encounter procedure 10/26/2023 3:00 PM EST Office Visit [facility] [address] [place] [address] [address] [place] [address] [place] [address] [place] [address], [address] [place] [address] [facility] Start: 04-22-2023 Influenza vaccination Influenza Vacc ine [facility] Start: 08-04-2022 Adult BMI Screening Adult BMI Screen ing [facility] Start: 2017 Fall Risk Screening Fall [facility] Screen ing [facility] Start: 2002 Administration of varicella zoster vaccine Zoster (Shingles) Vaccine (1 of 2) [facility] Start: 1971 DTaP,Tdap and Td Vaccines (1 - Tdap) DTaP,Tdap and Td Vaccines (1 - Tdap) [facility] Start: 1970 Adult BMI Follow Up Plan Adult BMI F ollow Up Plan [facility] Start: 1964 Depression Screening Depression Scre ening [facility] Start: 1964 Tobacco Screening Tobacco Screening [facility] Start: 1952 Medicare Annual Well ness Visit Medicare Annual Wellness Visit [facility] End: 10-27-2024 CBC W Auto Differential panel - Blood CBC with auto diff Lab Routine Preop testing 1 Occurrences starting 10/28/2023 until 10/27/2024 [facility] Work Phone: Comment on above: 1 Occurrences starti ng 10/28/2023 until 10/27/2024 End: 10-27-2024 Comprehensive metabolic 2000 panel - Serum or Plasma Comprehensive metabolic panel Lab Routine Preop testing 1 Occurrences starting 10/28/2023 until 10/27/2024 [facility] Comment on above: 1 Occurrences starti ng 10/28/2023 until 10/27/2024 End: 10-27-2024 ECG 12 lead ECG 12 lead ECG Routine Preop testing 1 Occurrences starting 10/28/2023 until 10/27/2024 [facility] Comment on above: 1 Occurrences starti ng 10/28/2023 until 10/27/2024 Immunizations Immunization Date Immunization Notes Care Provider Jailyn martinez 07-24-2019 pneumococcal polysaccharide vaccine, 23 valent Anamaria Chinchilla [facility] 07-21-2018 pneumococcal conjuga te vaccine, 13 valent Anamaria Chinchilla [facility] 11-08-2016 hepatitis A vaccine, adult dosage Anamaria Chinchilla [facility] 05-05-2016 hepatitis A vaccine, adult dosage Anamaria Chinchilla [facility] 07-12-2014 influenza virus vaccine, unspecified formulation Linette Ga RN [facility] 07-12-2014 influenza, injectabl e, quadrivalent, preservative free Bentley Pippa DO Work Phone: [facility] 06-05-2013 influenza virus vaccine, unspecified formulation Anamaria Chinchilla [facility] 06-05-2013 influenza, seasonal, injectable Bentley Pippa DO Work Phone: [facility] 05-18-2012 influenza virus vaccine, unspecified formulation Anamaria Chinchilla [facility] 05-18-2012 influenza, seasonal, injectable Bentley Pippa DO Work Phone: [facility] 05-17-2011 influenza virus vaccine, unspecified formulation Anamaria Chinchilla [facility] 05-17-2011 influenza, seasonal, injectable Bentley Pippa DO Work Phone: [facility] 06-25-2008 pneumococcal polysaccharide vaccine, 23 valent Anamaria Chinchilla [facility] NEGATED: Highlighted row has not occurred!07-30-2024 influenza virus vaccine, unspecified formulation Anamaria Chinchilla [facility] NEGATED: Highlighted row has not occurred!05-30-2023 influenza virus vaccine, unspecified formulation Anamaria Chinchilla [facility] NEGATED: Highlighted row has not occurred!12-01-2022 SARS-CoV-2 mRNA (tozinameran 5y-11y) vaccine Violet Lauren [facility] Payers Date Payer Category Payer Medicare (Managed Care) KELLY SANDERS Member Subscriber Plan / Payer (Effective 2021-Present) Name: Isaura Hayden Relation to Subscriber: Self Name: Isaura Hayden Payer ID: Not on file Group ID: [id number] Type: Not on file Address: [facility] [address] [place] [id number] 2017 Medicare [id number]. 1.13.424.2. [id number] 2017 Unknown [id number] 2017 Unknown 2014 Medicare [id number] 1959 Unknown [id number] 1952 Unknown [id number] 2.16.840.1.547421.3.579.2. 593 1952 Unknown [id number] 2.16.840.1.814513.3.579.2. 593 1952 Unknown [id number] 2.16.840.1.335902.3.579.2. 593 1952 Unknown [id number] 2.16.840.1.817638.3.579.2. 593 1952 Unknown [id number] 2.16.840.1.872097.3.579.2. 593 1952 Unknown [id number] 2.16.840.1.517853.3.579.2. 593 1952 Unknown [id number] 2.16.840.1.054800.3.579.2. 593 1952 Unknown [id number] 2.16.840.1.191307.3.579.2. 593 1952 Unknown [id number] 2.16.840.1.120940.3.579.2. 1286 1952 Unknown [id number] 2.16.840.1.898224.3.579.2. 1286 1952 Unknown [id number] 2.16.840.1.917984.3.579.2. 1286 1952 Unknown [id number] 2.16.840.1.798305.3.579.2. 1286 1952 Unknown [id number] 2.16.840.1.844251.3.579.2. 1286 1952 Unknown [id number] 2.16.840.1.669117.3.579.2. 1286 1952 Unknown [id number] 2.16.840.1.026330.3.579.2. 1286 1952 Unknown [id number] 2.16.840.1.190795.3.579.2. 1286 1952 Unknown [id number] 2.16.840.1.729168.3.579.2. 1286 1952 Unknown [id number] 2.16.840.1.885525.3.579.2. 1286 1952 Unknown [id number] 2.16.840.1.407585.3.579.2. 1286 1952 Unknown [id number] 2.16.840.1.834526.3.579.2. 727 1952 Unknown [id number] 2.16.840.1.303542.3.579.2. 727 1952 Unknown [id number] 2.16.840.1.373205.3.579.2. 727 1952 Unknown [id number] 2.16.840.1.720367.3.579.2. 727 1952 Unknown [id number] 2.16.840.1.017335.3.579.2. 727 1952 Unknown [id number] 2.16.840.1.067784.3.579.2. 727 1952 Unknown [id number] 2.16.840.1.986883.3.579.2. 1259 1952 Unknown [id number] 2.16.840.1.113193.3.579.2. 1259 1952 Unknown [id number] 2.16.840.1.945230.3.579.2. 196 1952 Unknown [id number] 2.16.840.1.631526.3.579.2. 727 1952 Unknown [id number] 2.16.840.1.218341.3.579.2. 727 1952 Unknown [id number] 2.16.840.1.051816.3.579.2. 727 1952 Unknown [id number] 2.16.840.1.014312.3.579.2. 727 1952 Unknown [id number] 2.16.840.1.541601.3.579.2. 727 1952 Unknown [id number] 2.16.840.1.831854.3.579.2. 727 1952 Unknown [id number] 2.16.840.1.746811.3.579.2. 727 1952 Unknown [id number] 2.16.840.1.217657.3.579.2. 727 1952 Unknown [id number] 2.16.840.1.594605.3.579.2. 727 1952 Unknown [id number] 2.16.840.1.671773.3.579.2. 727 1952 Unknown [id number] 2.16.840.1.234377.3.579.2. 727 Social History Date Type Detail Facility Start: 01-31-2023 End: 05-11-2023 Tobacco smoking status Never smoked tobacco (finding) [facility] Comment on above: denies denies use. Tobacco [facility] status [facility] Comment on above: denies denies use. Start: 10-02-2020 End: 10-11-2023 Sex Assigned At Female [facility] Start: 10-11-2023 End: 08-28-2024 Alcoholic beverage intake Current drinker of alcohol (finding) [facility] Start: 10-11-2023 End: 08-28-2024 Alcoholic beverage intake [facility] Start: 1950 Sex assigned at Not on file P [facility] History of tobacco use Passive smoker [facility] Start: 01-12-2018 End: 11-07-2023 Tobacco use and exposure Smokeless tobacco non-user [facility] Start: 1950 [facility] Start: 10-24-2023 Gender identity Identifies as female gender (finding) [facility] Start: *Tobacco [facility] Start: Alcohol [facility] Clinical Notes 08-05-2022 to 10-19-2024 Maryanne Mancia [...] Protein Urine Dipstick: Trace (10/19/24 10:07:00) Specific [place] Urine Dipstick: 1.020 (10/19/24 10:07:00) Urine Appearance Urine Dipstick: Slightly cloudy (10/19/24 10:07:00) Urine Color Urine Dipstick: Light yellow (10/19/24 10:07:00) Urobilinogen Urine Dipstick: Normal 0.2-1 EU/dl (10/19/24 10:07:00) pH Urine Dipstick: 7 (10/19/24 10:07:00) [facility] 08-28-2024 History of Presen t illness [...] Daily aspirin 81 mg, Every other day Nazmhcj-Ybdwkylmzi-Zidpqvv D (VITAMIN D3/CALCIUM/PHOSPHORUS PO) 1 each, Daily Denosumab (PROLIA SC) 1 Units, Every 6 months Durysta 10 mcg, As needed losartan (COZAAR) 100 mg, Daily [place]-3 500 mg rosuvastatin (CRESTOR) 20 mg ALLERGIES Allergies Allergen Reactions Hydromorphone Unknown PROBLEMS Active Ambulatory Problems Diagnosis Date Noted Age-related osteoporosis without current pathological fracture ([facility]) 01/31/2023 Arthritis 12/27/2016 Hypercholesterolemia ([facility]) 12/27/2016 Hypertension ([facility]) 01/31/2023 Iron deficiency anemia 12/27/2016 TIA (transient ischemic attack) 01/31/2023 History of colon polyps 02/01/2023 Hyperlipidemia ([facility]) 02/23/2023 Resolved Ambulatory Problems Diagnosis Date Noted No Resolved Ambulatory Problems Past Medical History: Diagnosis Date Bronchitis Capillary angioma Cataracts, bilateral Chicken pox Family history of cancer Gallstone pancreatitis 2016 Glaucoma ([facility]) Hemorrhoids 2013 High blood pressure ([facility]) High cholesterol ([facility]) Measles Mumps Osteoporosis ([facility]) Pneumonia Stress fracture Tonsillitis Tubular adenoma 2013 HISTORY PAST MEDICAL HISTORY SOCIAL HISTORY Past Medical History: Diagnosis Date Arthritis Bronchitis Capillary angioma Cataracts, bilateral Chicken pox Family history of cancer Gallstone pancreatitis 2017 Glaucoma ([facility]) Hemorrhoids 2013 High blood pressure ([facility] High cholesterol ([facility]) Measles Mumps Osteoporosis ([facility]) Pneumonia [...] nursing note reviewed. Exam conducted with a manufacturing specialist present. Vitals: Estimated body mass index [...] Bentley Das DO documented in this encounter [facility] 08-09-2024 Note Nurse Consultation N ote [...] 05/17/2011 Recorded pneumococcal 23-valent vaccine 06/25/2008 Recorded [facility] 07-30-2024 Note Patient Education Cardiovascular Hypertension, [...] Keep all follow-up visits. Medicines ??? Take wwpe-jvi-ahotbzr and prescription medicines only as told by [...] Hypertension is a (more content not included)... [facility] 07-13-2024 Note Patient Education Infectious Disease [...] these instructions at home: Medicines ??? Take yjsd-jyx-sgwpeah and prescription medicines only as told by [...] and water are not available, use hand wool tamper. ??? Do not touch your eyes, nose, [...] provider. Document Revised: 11/04/2021 Document Reviewed: 11/04/2021 [employer] Patient Education ? 2023 Yoostay. [facility] 12-27-2023 History of Presen t illness [...] 01/12/2018 Performed by Nitesh Littlejohn MD at [facility] ROBOTIC ASSISTED HYSTERECTOMY, BILATERAL SALPINGO OOPHORECTOMY, PELVIC WASHINGS Bilateral 11/14/2023 Performed by Nabil Lord MD at [facility] HEMORROIDECTOMY 1999' SKIN BIOPSY Right [...] - Inability: Never True Received from [facility] Safety & Environment Review of Symptoms: [...] *This note was completed using a voice cutter down system. Every effort was made to ensure accuracy. However, inadvertent computerized cutter down errors may be present. .Total time spent was 20 minutes: Preparing to see the patient (e.g., review of tests) Performing a medically appropriate examination and/or evaluation Counseling and educating the patient/family/caregiver Documenting clinical information in the electronic or other health record Care coordination (not separately reported) Mary Pennington PA-C, RD, IF JASON Zaragoza 12/27/23 1108 [facility] History of Presen t illness Narrative [...] 01/12/2018 Performed by Nitesh Littlejohn [facility]STERECTOM[facility], BILATERAL SALPINGO OOPHORECTOMY, PELVIC WASHINGS Bilateral 11/14/2023 Performed by Nabil Lord MD at [facility] HEMORROIDECTOMY 1999's SKIN BIOPSY Right [...] *This note was completed using a voice cutter down system. Every effort was made to ensure accuracy. However, inadvertent computerized cutter down errors may be present. .Total time spent was 20 minutes: Preparing to see the patient (e.g., review of tests) Performing a medically appropriate examination and/or evaluation Counseling and educating the patient/family/caregiver Documenting clinical information in the electronic or other health record Care coordination (not separately reported) Mary Pennington PA-C, RD, IF JASON Zaragoza 11/29/23 1101 documented in this encounter [facility] [employer] [facility] 11-07-2023 Instructions Formatting of th is note might be different from the original. Your surgery/procedure is scheduled at [facility] on 11/14/2023 at 11 am Arrival Time 9 am [facility] Address: [address] [place] [address], [address] Park in the Emergency Center Parking lot. Report to the motel front desk attendant in the Emergency/Surgery Registration lobby of the hospital. Please call Pre-Admission Clinic at [phone] if you have any questions prior to surgery. For questions the morning of surgery, please call the Pre-op Department at [phone]. Notify your SURGEON if you develop any [...] would like to schedule therapy at a [facility] facility, please call [phone] ([phone]). Do not use lotions, creams, powders, perfume, make up, cologne or after-shaves day of surgery. Remove ALL jewelry including wedding rings, body piercings, hair extensions that contain metal, nail bruneian, make-up, and contact lens. You may brush your teeth the morning of surgery, but do not swallow the water. Wear your dentures and partial plates to the hospital (no adhesive). Shower the night the before. If applicable, use the CHG (chlorhexidine gluconate) soap or wipes. Please be advised, [employer] has transitioned to a cashless payment system. [...] AND RESPONSIBILITIES As a patient at [facility], you have the right to: Receive medical care and be informed of who is taking care of you Be treated with dignity and respect Have a family member/sales representative meats of choice and your physician notified of your admission Receive information and actively participate in decisions about your care and treatment Refuse care, treatment and services Decide who may provide your support and speak for you Access voodoo and spiritual services Participate in ethical issues [...] of hospital charges and payment methods Patient/patient sales representative meats responsibilities are to: Provide information about health status to facilitate care, treatment and services Follow the treatment, plan, keep appointments and speak up when you do not understand the plan Respect the rights of other patients and healthcare personnel Follow organizational rules and regulations that support quality care and a safe environment Fulfill financial obligations as promptly as possible [facility] 11-07-2023 Miscellaneous Notes Pt is going to [facility] on 11/09/2023 to havre EKG, CXR and labs. Your surgery/procedure is scheduled at [facility] on 11/14/2023 at 11 am Arrival Time 9 am [facility] Address: [address] [place] [address], [facility] Park in the Emergency Center Parking lot. Report to the motel front desk attendant in the Emergency/Surgery Registration lobby of the hospital. Please call Pre-Admission Clinic at [phone] if you have any questions prior to surgery. For questions the morning of surgery, please call the Pre-op Department at [phone]. Notify your SURGEON if you develop any [...] would like to schedule therapy at a [facility] facility, please call [phone] ([phone]). Do not use lotions, creams, powders, perfume, make up, cologne or after-shaves day of surgery. Remove ALL jewelry including wedding rings, body piercings, hair extensions that contain metal, nail bruneian, make-up, and contact lens. You may brush your teeth the morning of surgery, but do not swallow the water. Wear your dentures and partial plates to the hospital (no adhesive). Shower the night the before. If applicable, use the CHG (chlorhexidine gluconate) soap or wipes. Please be advised, [facility] has transitioned to a cashless [...] AND RESPONSIBILITIES As a patient at [facility], you have the right to: Receive medical care and be informed of who is taking care of you Be treated with dignity and respect Have a family member/sales representative meats of choice and your physician notified of your admission Receive information and actively participate in decisions about your care and treatment Refuse care, treatment and services Decide who may provide your support and speak for you Access voodoo and spiritual services Participate in ethical issues [...] of hospital charges and payment methods Patient/patient sales representative meats responsibilities are to: Provide information about health status to facilitate care, treatment and services Follow the treatment, plan, keep appointments and speak up when you do not understand the plan Respect the rights of other patients and healthcare personnel Follow organizational rules and regulations that support quality care and a safe environment Fulfill financial obligations as promptly as possible documented in this encounter [facility] 11-07-2023 Nurse Note Pt is going to [facility] on 11/09/2023 to havre EKG, CXR and labs. [facility] 10-28-2023 Miscellaneous Notes Spoke with Mee 3/Raisa and 3/8 to confirm surgery plan. Patient is scheduled at [facility] with Dr Lord on 11/14/23. She knows to arrive at 9:00a for 11:00a surgery. Patient knows to call [phone] to locate closest [facility] facility in order to complete PAT testing. She has phone call PAT scheduled for 11/07/23. She will follow up with Mary in [place] on 11/29/23 at 10:30a. documented in this encounter [facility] 10-28-2023 Telephone encounter Note Spoke with Mee 3/Raisa and 3/8 to confirm surgery plan. Patient is scheduled at [facility] with Dr Lord on 11/14/23. She knows to arrive at 9:00a for 11:00a surgery. Patient knows to call [phone] to locate closest [facility] facility in order to complete PAT testing. She has phone call PAT scheduled for 11/07/23. She will follow up with Mary in [place] on 11/29/23 at 10:30a. [facility] 10-26-2023 History of Presen t illness [...] personal or family history of GI or ob/gyn physician malignancies. Oncology History No overview note Isaura [...] 01/12/2018 Performed by Nitesh Littlejohn MD at [facility] HEMORROIDECTOMY TONSILLECTOMY Past Medical History: Diagnosis [...] procedures Referring and communicating with other health healthcare market consultant (not separately reported) Documenting clinical information in the electronic or other health record Independently interpreting results (not separately reported) and communicating results to the patient/family/caregiver Nabil Lord MD [facility] 10-19-2023 Miscellaneous Notes Left VM to schedule INSPECTOR OF DREDGING appt with ob/gyn physician onc, call back # provided. Requested images from pelvic US be pushed via PACS from [employer]. documented [facility] 10-19-2023 Telephone encounter Note Left VM to schedule INSPECTOR OF DREDGING appt with ob/gyn physician onc, call back # provided. Requested images from pelvic US be pushed via PACS from [employer]. [facility] 08-11-2023 Note Procedures Choosing a Surgeon [...] a surgeon: ? Is certified by the [place] [employer]. To be board [...] going to your state medical board at www.fsmb.org/jsqenek-t-rhmmg-dc dical-board/ ? Has good ratings from other [...] you are considering is certified by the [place]. ? Meet with [...] provider. Document Revised: 10/19/2021 Document Reviewed: 10/19/2021 [employer]old Patient Education ? 2022 Yoostay. [facility] 08-05-2022 Note PROCEDURE: XR FOOT L [...] authenticated by: ALAN CÁRDENAS Date: 2022-08-04 22:03 [facility] Evaluation + Plan note Future Appointments Appointment Date:05/30/2023 02:00:00 PM Scheduled Provider: Location:[facility] Appointment Type: Medicare Wellness Subsequent Appointment Date:05/30/2023 02:40:00 PM Scheduled Provider:Anamaria Chinchilla MD Location:[facility] Appointment Type: Open Diagnostic Tests PendingUrine Culture 05/11/23 [facility] Evaluation + Plan note Future Appointments Appointment Date:07/30/2024 10:30:00 AM Scheduled Provider:Anamaria Chinchilla MD Location:[facility] Appointment Type: Open Appointment Date:07/30/2024 11:00:00 AM Scheduled Provider: Location:[facility] Appointment Type: Medicare Wellness Subsequent Diagnostic Tests PendingUrine Culture 05/07/24 [facility] Evaluation + Plan note Future Appointments Appointment Date:01/28/2025 08:45:00 AM Scheduled Provider:Anam[facility] Type[facility]FM Open Appointment Date:08/01/2025 11:00:00 AM Scheduled [facility] Type:FM Medicare Wellness Subsequent [facility] Evaluation + Plan note Future Appointments Appointment Date:01/28/2025 08:45:00 AM Scheduled Provider:Anamaria Chinchilla MD [facility] Type:FM Open Appointment Date:08/01/2025 11:00:00 AM Scheduled Provider: [facility] Type:FM Medicare Wellness Subsequent Diagnostic Tests PendingUrine Culture 10/19/24 [facility] Evaluation note Diagnosis Well woman exam with routine gynecological exam Routine gynecological examination Breast cancer screening by mammogram Postmenopausal state Asymptomatic postmenopausal status (age-related) (natural) documented in this encounter [facility] HealthcareEvaluation note* Diagnosis Encounter for postoperative care- Primary [facility] Diagnosis Endometrial thickening on ultrasound- Primary Postmenopausal bleeding [facility] Diagnosis Preop testing- Primary Unspecified pre-operative examination documented [facility]* Diagnosis Encounter for postoperative care- Primary documented in this encounter [facility] Narrative No data available for this section [facility] instructions No data available for this section [facility] HospitalInstructionsNot on filedocumented in this encounter [facility] System[facility]ructionsNot on filedocumented in this encounter [facility] System[facility]ructionsNot on filedocumented in this encounter [facility] SystemInstructionsNot on filedocumented in this encounter [facility] SystemInstructionsNot on filedocumented in this encounter [facility] SystemInstructionsNot on filedocumented in this encounter [facility] No data available for this section [facility] Summary Purpose Family History No Family [...] Procedures ECG 12 lead Nabil Lord MD [address] [place] [address], [address] [place] [address] Referral ID Status Reason Start Date Expiration Date V isits Requested Visits Authorized [id number] Pending Review 10/28/2023 10/27/2024 1 1 Additional Source Comments INFORMATION SOURCE (unrecogn ized section and content) DATE CREATED AUTHOR 02/13/2018 [facility] DATE CREATED AUTHOR AUTHOR'S ORGANIZ ATION 08/12/2022 [facility] DATE CREATED AUTHOR AUTHOR'S ORGANIZ ATION 10/27/2023 [facility] DATE CREATED AUTHOR AUTHOR'S ORGANIZ ATION 10/28/2023 [facility] DATE CREATED AUTHOR AUTHOR'S ORGANIZ ATION 11/18/2023 [facility] DATE CREATED AUTHOR AUTHOR'S ORGANIZ ATION 12/28/2023 [facility] DATE CREATED AUTHOR AUTHOR'S ORGANIZ ATION 05/15/2024 [facility] DATE CREATED AUTHOR AUTHOR'S ORGANIZ ATION 08/10/2024 [facility] DATE CREATED AUTHOR AUTHOR'S ORGANIZ ATION 08/13/2024 [facility] DATE CREATED AUTHOR AUTHOR'S ORGANIZ ATION 09/03/2024 [facility] DATE CREATED AUTHOR AUTHOR'S ORGANIZ ATION 09/13/2024 [facility] DATE CREATED AUTHOR AUTHOR'S ORGANIZ ATION 10/21/2024 [facility] DATE CREATED AUTHOR AUTHOR'S ORGANIZ ATION 10/22/2024 [facility] DATE CREATED AUTHOR AUTHOR'S ORGANIZ ATION 01/28/2025 [facility] DATE CREATED AUTHOR AUTHOR'S ORGANIZ ATION 01/30/2025 [facility] Patient Care team informatio n (unrecognized section and content) Commercial Account Executive Relationship Specialty Start Date End Date Anjelica Gambino MD [address] [place] [address] PCP - General Family Medicine 01/27/23 Commercial Account Executive Relationship Specialty Start Date End Date Anjelica Gambino MD [address] [place] [address] PCP - General Family Medicine 01/27/23 Commercial Account Executive Relationship Specialty Start Date End Date Anamaria Chinchilla MD [address] [place], [place] [id number] PCP - General Family Medicine 11/07/23 Commercial Account Executive Relationship Specialty Start Date End Date Anjelica Gambino MD [address] [place] [address] PCP - General Family Medicine 12/24/16 Commercial Account Executive Relationship Specialty Start Date End Date Anjelica Gambino MD [address] [place] [address] PCP - General Family Medicine 12/24/16 Commercial Account Executive Relationship Specialty Start Date End Date Anjelica Gambino MD [address] [place] [address] PCP - General Family Medicine 12/24/16 Commercial Account Executive Relationship Specialty Start Date End Date Anamaria Chinchilla MD [address] [place], [place] [id number] PCP - General Family Medicine 11/07/23 Commercial Account Executive Relationship Specialty Start Date End Date Anjelica Gambino MD [address] [place] [id number] PCP - General Family Medicine 01/27/23 Reason [...] BE BASED ON THE PRIMARY CLINICAL RECORDS. [facility]. provides no warranty or guarantee of the accuracy or completeness of information in this document.
== END 2025-04-15 09:02 | disposition home or self-care (01) ==
LOC: MAMMO 09:01
PROVIDERS: PCP Nurse Practitioner; Visit Provider Obstetrics & Gynecology
DX: Z12.31 Encounter for screening mammogram for malignant neoplasm of breast (principal); Z80.3 Family history of malignant neoplasm of breast; Z80.1 Family history of malignant neoplasm of trachea, bronchus and lung
CPT/HCPCS: 77063; 77067

== ENCOUNTER 2025-07-07 09:56 | Emergency (ER) | payer MEDICARE, SELFPAY ==
--- OUTSIDE RECORDS SUMMARY | 2025-07-01 23:59 | XMS_ITS | Continuity of Care Document ---
Author Organization [facility] Address Unknown Care Team Providers Care Engagement Director Name Role Phone Hrapreet Trejo Primary Care Physician Encounter [facility] [id number] Date(s): 07/01/25 - 07/01/[address] [address] Discharge Disposition: Home (Routine DC) Attending Physician: Violet Allen Admitting Physician: Violet Allen Encounter Type: Lab Drop off Allergies, Adverse Reactions, Alerts SubstanceCriticalitySeverityReactionReaction SeverityStatusDilaudidUnknownActive Treatment Plan Future Appointments Appointment Date:07/31/2025 08:20:00 AM Scheduled Provider:Harpreet Trejo DO Location:[facility] Appointment Type: Open Appointment Date:07/31/2025 09:30:00 AM Scheduled Provider: Location:[facility] Appointment Type: Medicare Wellness Subsequent Diagnostic Tests Pending * Urine Culture 07/01/25 Immunizations Given and Recorded VaccineDateStatusRefusal Reasonpneumococcal 23-valent tmngciz19/3/19Recorded pneumococcal 23-valent /4/08Recordedpneumococcal 13-valent vaccine 07/21/18Recordedhepatitis A adult vaccine11/08/16Recordedhepatitis A adult vaccine05/05/16Recordedinfluenza virus vaccine, fdxnyknsqty23/21/14Recorded influenza virus vaccine, wllshmjueyl68/15/13Recordedinfluenza virus vaccine, inactivated05/18/12Recordedinfluenza virus vaccine, inactivated05/17/11Recorded Not Given VaccineDateStatusRefusal Reasoninfluenza virus vaccine, czwrqtgobnk29/9/24Not GivenParent Or Guardian Refusesinfluenza virus vaccine, xitrtswvguu45/9/23Not GivenRefused by parent, guardian, or patient - wxlbptsmopSHGK-RdN-3 mRNA (tozinameran 5y-11y) vac12/01/22Not GivenRefused by parent, guardian, or patient - reschedule Medications amLODIPine 5 mg Tab See Instructions, TAKE 1 TABLET BY MOUTH DAILY, # 90 tab(s), Refills(s) 1, Pharmacy: [facility] [id number], 162, cm, 01/28/25 9:01:00 EDT, Height/Length Dosing, 78.1, kg, 01/28/25 9:01:00 EDT, Weight Dosing Start Date: 01/28/25 Status: Ordered Medication Dispense Status: Completed Quantity: 90.0 Unit: tab(s) Total Allowed Fills: 2 Fills Dispensed: 0 aspirin 81 mg oral capsule See Instructions, 1 cap(s) Oral every other day, Refills(s) 0 Start Date: 11/29/22 Status: Ordered Medication Dispense Status: Completed Total Allowed Fills: 1 Fills Dispensed: 0 calcium-vitamin D Daily, Refill(s) 0 Start Date: 05/30/23 Status: Ordered Medication Dispense Status: Completed Total Allowed Fills: 1 Fills Dispensed: 0 Durysta 10 mcg intraocular implant mcg, IntraOcular, Once, Refills(s) 0 Start Date: 07/13/24 Status: Ordered Medication Dispense Status: Completed Total Allowed Fills: 1 Fills Dispensed: 0 glucosamine hydrochloride 1500 mg oral tablet 1,500 mg, 1 tab(s), Oral, Daily, 30 tab(s), Refill(s) 0 Start Date: 12/01/22 Status: Ordered Medication Dispense Status: Completed Quantity: 30.0 Unit: tab(s) Total Allowed Fills: 1 Fills Dispensed: 0 losartan 100 mg Tab 100 mg = 1 tab(s), Oral, Daily, # 90 tab(s), Refills(s) 4, Pharmacy: [facility] [id number], 162,cm, 01/28/25 9:01:00 EDT, Height/Length Dosing, 78.1, kg, 01/28/25 9:01:00 EDT, Weight Dosing Start Date: 06/05/25 Status: Ordered Medication Dispense Status: Completed Quantity: 90.0 Unit: tab(s) Total Allowed Fills: 5 Fills Dispensed: 0 omega-3 polyunsaturated fatty acids 500 mg oral capsule 500 mg = 1 cap(s), Oral, Daily, Refills(s) 0 Start Date: 12/01/22 Status: Ordered Medication Dispense Status: Completed Total Allowed Fills: 1 Fills Dispensed: 0 Prolia mg, SubCutaneous, q6mo, Refills(s) 0 Start Date: 07/30/24 Status: Ordered Medication Dispense Status: Completed Total Allowed Fills: 1 Fills Dispensed: 0 rosuvastatin 20 mg Tab See Instructions, TAKE 1 TABLET BY MOUTH DAILY, # 90 tab(s), Refills(s) 4, Pharmacy: [facility] [id number], 162, cm, 01/28/25 9:01:00 EDT, Height/Length Dosing, 78.1, kg, 01/28/25 9:01:00 EDT, Weight Dosing Start Date: 06/04/25 Status: Ordered Medication Dispense Status: Completed Quantity: 90.0 Unit: tab(s) Total Allowed Fills: 5 Fills Dispensed: 0 stool softner stool softner, 100 mg, Oral, Bedtime, take 2 Start Date: 07/30/24 Status: Ordered Medication Dispense Status: Completed Total Allowed Fills: 1 Fills Dispensed: 0 sulfamethoxazole-trimethoprim 800 mg-160 mg Tab 1 tab(s), Oral, BID for 7 day(s), 14 tab(s), Refill(s) 0, [facility] [id number], 162, cm, 01/28/25 9:01:00 EDT, Height/Length Dosing, 78.1, kg, 01/28/25 9:01:00 EDT, Weight Dosing Start Date: 07/01/25 Stop Date: 07/08/25 Status: Ordered Medication Dispense Status: Completed Quantity: 14.0 Unit: tab(s) Total Allowed Fills: 1 Fills Dispensed: 0 Vitamin D3 Refills(s) 0 Start Date: 07/30/24 Status: Ordered Medication Dispense Status: Completed Total Allowed Fills: 1 Fills Dispensed: 0 vitamin E 450 mg oral capsule See Instructions, take one daily 400mg, Refills(s) 0 Start Date: 12/01/22 Status: Ordered Medication Dispense Status: Completed Total Allowed Fills: 1 Fills Dispensed: 0 Problem List ConditionConfirmationCourseEffective DatesStatusHealth StatusInformantAge- related osteoporosis without current pathological fractureConfirmedActiveAnemia ConfirmedActiveBiceps tendinitisConfirmedActiveChronic coughConfirmedActiveCKD stage 3a, GFR 45-59 ml/minConfirmedActiveFatigueConfirmedActiveFoot pain, right ConfirmedActiveHyperlipidemiaConfirmedActiveHypertensionConfirmedActive Hypertensive kidney disease with stage 3a chronic kidney jrnkhiq9TinjxduepPjirll OsteoporosisConfirmedActiveLeft arm painConfirmedActivePostmenopause bleeding ConfirmedActiveRight sided abdominal painConfirmedActiveSyncopeConfirmedActive TIA (transient ischemic attack)ConfirmedActive 1Linked per outpatient CDI policy. Procedures ProcedureDateRelated DiagnosisBody HettYuxmeoXfisanfgxpda6922Uphqmqhzp Xwzejjjcbrpvjiz7PxqgzhgbdXgcnqwirnud1BifagsrcxXxgoj7Gaxqiaqfd 1bile duct surgery [address]59[address] normal 3eye Social History Social History TypeResponseSmoking StatusNever (less than 100 in lifetime);Never ; Concerns about tobacco use in household: No; Smoking Cessation Yes1, 2 entered on: 01/28/25Birth SexFemaleSex RepresentationFemale (finding) 1denies use. 2denies Patient Care team information Care Team Personnel Name: Harpreet Trejo DO Position: FT Ambulatory - Primary Care Provider? Member Role: Primary Care Physician Address: [address] [place] [address]- Telecom: Care Team Related Persons Name: TREY HAYDEN Name: TREY HAYDEN Insurance Providers Guarantor name: PAPITO Rosado [facility] Health Plan Information #: 1 Payer: Marii Payer Identifier: [id number] Member Number: [id number] Group Number: [id number] Subscriber Identifier: [id number] Relationship to Subscriber: self Coverage Type: MEDICARE Coverage Verification Date: NA Telecom: [phone] Address: [facility] [id number] [address]
--- OUTSIDE RECORDS SUMMARY | 2025-07-01 23:59 | XMS_ITS | Continuity of Care Document ---
Author Organization [facility] Address [address] [place] [address] Care Team Providers Care Manager Insurance Name Role Phone Harpreet Trejo Primary Care Physician Encounter [facility] [id number] Date(s): 07/01/25 - 07/01/[address] [address]- Discharge Disposition: Home (Routine DC) Attending Physician: Violet Allen Encounter Type: Clinic Allergies, Adverse Reactions, Alerts SubstanceCriticalitySeverityReactionReaction SeverityStatusDilaudidUnknownActive Treatment Plan Future Appointments Appointment Date:07/31/2025 08:20:00 AM Scheduled Provider:Harpreet Trejo DO Location:[facility] Appointment Type: Open Appointment Date:07/31/2025 09:30:00 AM Scheduled Provider: Location:[facility] Appointment Type:FM Medicare Wellness Subsequent Immunizations Given and Recorded VaccineDateStatusRefusal Reasonpneumococcal 23-valent /3/19Recorded pneumococcal 23-valent /4/08Recordedpneumococcal 13-valent vaccine 07/21/18Recordedhepatitis A adult vaccine11/08/16Recordedhepatitis A adult vaccine05/05/Recordedinfluenza virus vaccine, suhzirdzken93/21/14Recorded influenza virus vaccine, hitjofhrfxo17/15/13Recordedinfluenza virus vaccine, inactivated05/18/12Recordedinfluenza virus vaccine, inactivated05/17/11Recorded Not Given VaccineDateStatusRefusal Reasoninfluenza virus vaccine, mjrmcntjnag12/9/24Not GivenParent Or Guardian Refusesinfluenza virus vaccine, stuxprvagzp87/9/23Not GivenRefused by parent, guardian, or patient - ssexgbmgreWOMX-JyC-4 mRNA (tozinameran 5y-11y) vac12/01/22Not GivenRefused by parent, guardian, or patient - reschedule Medications amLODIPine 5 mg Tab See Instructions, TAKE 1 TABLET BY MOUTH DAILY, # 90 tab(s), Refills(s) 1, Pharmacy: [facility] [id number], 162, cm, 01/28/25 9:01:00 EDT, Height/Length Dosing, [...] Daily, # 90 tab(s), Refills(s) 4, Pharmacy: [facility] [id number], 162,cm, 01/28/25 9:01:00 EDT, Height/Length Dosing, 78.1, [...] 90 tab(s), Refills(s) 4, Pharmacy: [facility] [id number], 162, cm, 01/28/25 9:01:00 EDT, Height/Length Dosing, [...] for 7 day(s), 14 tab(s), Refill(s) 0, [facility] [id number], 162, cm, 01/28/25 9:01:00 EDT, Height/Length Dosing, [...] kidney disease with stage 3a chronic kidney pvclyqb3FvotisrldHwxtvd OsteoporosisConfirmedActiveLeft arm painConfirmedActivePostmenopause bleeding ConfirmedActiveRight sided abdominal painConfirmedActiveSyncopeConfirmedActive TIA (transient ischemic attack)ConfirmedActive 1Linked per outpatient CDI policy. Procedures ProcedureDateRelated DiagnosisBody RfajBxrbhhZhqsbpqiaemm5880Kafoftvwl Tyqvcficukskcgi4QuvbfgchgWcegbconvtc2EinapfepqOvvwc7Tjgvceawq 1bile duct surgery 66155 normal 3eye Social History Social History TypeResponseSmoking StatusNever (less than 100 in lifetime);Never ; Concerns about tobacco use in household: No; Smoking Cessation Yes1, 2 entered on: 01/28/25Birth SexFemaleSex RepresentationFemale (finding) 1denies use. 2denies Patient Care team information Care Team Personnel Name: Harpreet Trejo DO Position: FT Ambulatory - Primary Care Provider? Member Role: Primary Care Physician Address: [address] [place] [address]- Telecom: Care Team Related Persons Name: TREY HAYDEN Name: TREY HAYDEN Insurance Providers Guarantor name: PAPITO Rosado [facility] Health Plan Information #: 1 Payer: Marii Payer Identifier: [id number] Member Number: [id number] Group Number: [id number] Subscriber Identifier: [id number] Relationship to Subscriber: self Coverage Type: MEDICARE Coverage Verification Date: NA Telecom: [phone] Address: [facility] [id number]
[2025-07-07 10:03] VITALS: BP 159/69; PULSE 55; TEMP 37.1; O2SAT 99; BMI 27.8
--- NOTE | 2025-07-07 10:37 | ED.GENADUL1 ---
HPI HPI - General Adult General Chief complaint: Weakness Stated complaint: WEAKNESS NAUSEA Time Seen by Provider: 07/07/25 10:04 Source: patient Mode of arrival: walk-in History of Present Illness HPI narrative: cc - multiple vague complaints Pt arrives with her by private auto. She said that 3 days ago she developed some shakiness and also experienced some tightness throughout the jaw. She also felt as if her tongue was tingling and possible swelling. These symptoms continued through today and while she was at [employer], she said that she got shortness of breath while singing. She said her shakiness got worse so she had her bring her to the ED for evaluation. On questioning, I was able to learn that about 4 days ago she had her urine dipped at the office of her PCP - it revealed infection, so she was started on bactrim. These symptoms developed 1-2 days after starting the bactrim. No headache, blurred vsion, weakness, or sensory changes. Related Data Home Medications ?Medication ?Instructions ?Recorded ?Confirmed amlodipine 5 mg tablet 5 mg PO QPM 08/05/23 08/12/23 aspirin 81 mg tablet,delayed 81 mg PO .every other day 08/05/23 08/12/23 release (Adult Aspirin Regimen) calcium 600 mg (as 1 tab PO DAILY 08/05/23 08/12/23 carbonate)-vitamin D3 5 mcg (200 unit) tablet (Calcium 600 + D(3)) docusate sodium 100 mg capsule 200 mg PO QPM 08/05/23 08/12/23 (Stool Softener) glucosamine-chondroitin 500 mg-400 3 cap PO QPM 08/05/23 08/12/23 mg capsule losartan 100 mg tablet 100 mg PO DAILY 08/05/23 08/12/23 omega-3 fatty acids 500 mg PO DAILY 08/05/23 08/12/23 psyllium husk 3.4 gram/5.4 gram 1 tbsp PO DAILY PRN constipation 08/05/23 08/12/23 oral powder (Metamucil) rosuvastatin 20 mg tablet 20 mg PO DAILY 08/05/23 08/12/23 tafluprost (PF) 0.0015 % eye drops drp ophthalmic (eye) DAILY 08/05/23 in a dropperette (Zioptan (PF)) vitamin E 30 unit capsule 180 unit PO QPM 08/05/23 08/12/23 Previous Rx's ?Medication ?Instructions ?Recorded promethazine 25 mg tablet 25 mg PO Q6H PRN nausea and 09/14/24 vomiting #12 tabs Allergies Allergy/AdvReac Type Severity Reaction Status Date / Time hydromorphone Allergy Confusion Verified 09/14/24 13:38 PFSH PFS Medical History (Updated 07/07/25 @ 12:49 by Eric Costa) Foot fracture, left (2022) ?S92.902A - Unspecified fracture of left foot, initial encounter for closed fracture (ICD-10) Sinus tarsi syndrome of left ankle (2021) ?M25.572 - Pain in left ankle and joints of left foot (ICD-10) Left foot pain (07/2022) ?M79.672 - Pain in left foot (ICD-10) Osteopenia ?M85.80 - Other specified disorders of bone density and structure, unspecified site (ICD-10) Arthritis ?M19.90 - Unspecified osteoarthritis, unspecified site (ICD-10) Pneumonia ?J18.9 - Pneumonia, unspecified organism (ICD-10) Heartburn ?R12 - Heartburn (ICD-10) Constipation ?K59.00 - Constipation, unspecified (ICD-10) High cholesterol ?E78.00 - Pure hypercholesterolemia, unspecified (ICD-10) Hypertension ?I10 - Essential (primary) hypertension (ICD-10) Post-menopausal bleeding ?N95.0 - Postmenopausal bleeding (ICD-10) Thickened endometrium ?R93.89 - Abnormal findings on diagnostic imaging of other specified body structures (ICD-10) 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 - Nevus, non-neoplastic (ICD-10) Surgical History (Updated 08/05/23 @ 09:27 by Angelia Beltran NP) History of wisdom tooth extraction ?K08.409 - Partial loss of teeth, unspecified cause, unspecified class (ICD-10) History of tonsillectomy ?Z90.89 - Acquired absence of other organs (ICD-10) History of hemorrhoidectomy ?Z98.890 - Other specified postprocedural states (ICD-10) History of colonoscopy ?Z98.890 - Other specified postprocedural states (ICD-10) History of cholecystectomy ?Z90.49 - Acquired absence of other specified parts of digestive tract (ICD-10) Family History (Updated 08/05/23 @ 09:59 by Angelia Beltran NP) Other Bladder cancer Family history of cancer Family history of diabetes mellitus Heart disease Lung cancer Social History Within the past year, how often did you have a drink containing alcohol: 4 or more times a week Within the past year, how many standard drinks containing alcohol did you have on a typical day: 1 or 2 Total score: 0 Score interpretation: A score less than 3 is consistent with normal alcohol consumption. Smoking status: Never smoker Non-prescribed substance use: denies use Previous occupational history: Retired Highest level of school completed/degree received: Associate degree: academic program Little interest or pleasure in doing things: not at all Feeling down, depressed, or hopeless: not at all Exam Narrative Exam Narrative: Nurses notes and vital signs reviewed and patient is not hypoxic. afebrile General: Well-appearing but anxious. Skin: Warm, dry, no pallor noted. No rash. Head: Normocephalic, atraumatic. Neck: Supple, non-tender. Eye: Pupils are equal, round and EOMI. No scleral icterus. Ears, Nose, Mouth, and Throat: TM are clear, no posterior oropharynx erythema or nasal mucosal hypertrophy, uvula is mid-line Oral mucosa is moist Cardiovascular: Regular Rate and Rhythm without murmur, gallop or rub. Respiratory: No accessory muscle use or respiratory distress. Lungs are clear to auscultation, no wheezing, rales or rhonchi Chest Wall: no tenderness Back: No midline thoracic or lumbar vertebral tenderness. No CVA tenderness Musculoskeletal: normal ROM, no calf or popliteal tenderness, no lower extremity edema/swelling GI: Abdomen is soft, non-distended. Normal bowel sounds. No masses appreciated. No tenderness to palpation. No rebound, guarding, or rigidity noted. Neurological: A&O x4. No cranial nerve dysfunction observed. No truncal ataxia. Moves all extremities. Sensation intact. Psychiatric: Cooperative and interactive. Anxious. Constitutional Vital Signs, click to edit/add: Last Vital Signs Temp 98.8 F 07/07/25 10:03 Pulse 55 L 07/07/25 10:03 Resp 18 07/07/25 10:03 BP 159/69 H 07/07/25 10:03 Pulse Ox 99 07/07/25 10:03 Course Vital Signs Vital signs: Vital Signs Temperature 98.8 F 07/07/25 10:03 Pulse Rate 55 L 07/07/25 10:03 Respiratory Rate 18 07/07/25 10:03 Blood Pressure 159/69 H 07/07/25 10:03 Pulse Oximetry 99 07/07/25 10:03 Temperature 98.8 F 07/07/25 10:03 Pulse Rate 55 L 07/07/25 10:03 Respiratory Rate 18 07/07/25 10:03 Blood Pressure 159/69 H 07/07/25 10:03 Pulse Oximetry 99 07/07/25 10:03 Medical Decision Making MDM Narrative Medical decision making narrative: Patient presents with vague symptoms which include some shortness of breath while singing at [employer], some shakiness, some tightness around the jaw as well as sensory changes to the tongue. No other strokelike symptoms are present. She is very anxious. Patient was placed on vehicle monitor technician and EKG obtained. Blood drawn and sent for evaluation. She was found to have elevatiohn of her Cr - we discussed this result and I gave her reassurance that the rest of her testing did not reveal anything worrisome - I encouraged her to drink plenty of fluids and eat appropriately. ED return if she worsens otherwise she can follow up with her PCP to get blood rechecked if symptoms persist. Lab Data Lab results reviewed: Yes I reviewed the patient's lab results Labs: Lab Results 07/07/25 07/07/25 Range/Units 11:22 11: WBC 5.5 (4.0-11.0) 10^3/uL RBC 3.54 L (4.20-5.40) 10^6/uL Hgb 11.9 L (12.0-16.0) g/dL Hct 34.0 L (36.0-48.0) % MCV 96.0 (81.0-99.0) fL MCH 33.6 (26.7-34.0) pg MCHC 35.0 (29.9-35.2) g/dL RDW 12.8 (11.0-15.0) % Plt Count 289 (150-450) 10^3/uL MPV 9.2 L (9.5-13.5) fL Neut % (Auto) 65.3 (43.0-75.0) % Lymph % (Auto) 22.3 (20.5-60.0) % Moffat % (Auto) 9.5 (1.7-12.0) % Eos % (Auto) 2.0 (0.9-7.0) % Baso % (Auto) 0.7 (0.2-2.0) % Neut # (Auto) 3.6 (1.4-6.5) 10^3/uL Lymph # (Auto) 1.2 (1.2-3.8) 10^3/uL Moffat # (Auto) 0.5 (0.3-0.8) 10^3/uL Eos # (Auto) 0.1 (0.0-0.7) 10^3/uL Baso # (Auto) 0.0 (0.0-0.1) 10^3/uL Abs Immat Gran (auto) 0.01 (0.00-0.03) 10^3/uL Imm/Tot Granulo (auto) 0.2 (0.0-0.5) % Sodium 139 (136-145) mmol/L Potassium 4.5 (3.5-5.1) mmol/L Chloride 105 (98-107) mmol/L Carbon Dioxide 25.8 (21.0-32.0) mmol/L Anion Gap 12.7 BUN 17.0 (7.0-18.0) mg/dL Creatinine 1.65 H (0.55-1.02) mg/dL Est GFR ( Amer) 37 L (>=60 mL/min/1.73m^2) Est GFR (Non-Af Amer) 30 L (>=60 mL/min/1.73m^2) BUN/Creatinine Ratio 10.3 Glucose 107 H (74-106) mg/dL Calcium 9.4 (8.5-10.1) mg/dL Urine Color Lt. yellow (YELLOW) Urine Clarity Clear (CLEAR) Urine pH 6.0 (5.0-9.0) Ur Specific Carpenter 1.020 (1.005-1.025) Urine Protein Negative (NEG/TRACE) mg/dL Urine Glucose (UA) Negative (NEGATIVE) mg/dL Urine Ketones Negative (NEGATIVE) mg/dL Urine Occult Blood Trace-i (NEGATIVE) Urine Nitrite Negative (NEGATIVE) Urine Bilirubin Negative (NEGATIVE) Urine Urobilinogen 0.2 (0.2-1.0) EU/dL Ur Leukocyte Esterase Trace A (NEGATIVE) Urine RBC 0-2 (0-2) #/HPF Urine WBC 0-2 A (NONE SEEN) #/HPF Ur Squamous Epith Cells Few A (NONE/RARE) #/LPF Ur Transition Epith Cell Rare A (NONE SEEN) #/LPF Urine Crystals None seen (None Seen) #/HPF Urine Bacteria Trace A (NONE SEEN) #/HPF Urine Casts None seen (NONE SEEN) #/LPF Urine Mucus Trace A (NONE SEEN) ECG Data Attestation: I personally reviewed and interpreted this ECG as follows: Interpretation: EKG interpretation:Emergency Department physician interpretation. Normal sinus rhythm at 54bpm. Normal axis, normal intervals and no ST segment elevation or depression. Normal EKG. Discharge Plan Discharge Chief Complaint: Weakness Clinical Impression: Dehydration Patient Disposition: Home, Self-Care Time of Disposition Decision: 12:48 Prescriptions / Home Meds: No Action calcium carbonate-vitamin D3 [Calcium 600 + D(3)] 600 mg-5 mcg (200 unit) tablet 1 tab PO DAILY amlodipine 5 mg tablet 5 mg PO QPM losartan 100 mg tablet 100 mg PO DAILY rosuvastatin 20 mg tablet 20 mg PO DAILY tafluprost (PF) [Zioptan (PF)] 0.0015 % dropperette OPHTHALMIC (EYE) DAILY docusate sodium [Stool Softener] 100 mg capsule 200 mg PO QPM Metamucil 3.4 gram/5.4 gram powder 1 tbsp PO DAILY PRN (Reason: constipation) Rx Instructions: mix into at least 8 oz of water or juice before administering aspirin [Adult Aspirin Regimen] 81 mg tablet,delayed release (DR/EC) 81 mg PO .every other day vitamin E 30 unit capsule 180 unit PO QPM glucosamine-chondroitin 500-400 mg capsule 3 cap PO QPM Rx Instructions: give with meal/snack omega-3 fatty acids Capsule 500 mg PO DAILY promethazine 25 mg tablet 25 mg PO Q6H PRN (Reason: nausea and vomiting) Qty: 12 0RF Print Language: Lithuanian Instructions: Acute Kidney Injury (DC) Additional Instructions: increase oral fluid intake Referrals: MATT RICHMOND [Primary Care Provider, STORE STOCK ASSOCIATE] - 1 week Discharge Date/Time: 07/07/25 13:09
--- OUTSIDE RECORDS SUMMARY | 2025-07-07 10:52 | XMS_ITS | CCD ---
Author Organization [facility] Inform ion Partnership [facility] Care Team Providers Care Ar Manager Name Role Phone FARA BOOKER Unavailable Unavailable GAMBINO, ANJELICA Bergeron Unavailable Unavailable KARNAY, FARA Unavailable Unavailable BELEN, ANJELICA Bergeron Unavailable Unavailable GAMBINO, DR ANJELICA [...] Primary Care Physician NABIL LORD Attending Unavailable ANJELICA GAMBINO Referring Unavailable GAMBINO, ANJELICA E Primary Care Unavailable GAMBINO, ANJELICA E Referring Unavailable GAMBINO, ANJELICA E Primary Care Unavailable GAMBINO, ANJELICA E Referring Unavailable ROSS, ANAMARIA E [...] Unavailable ROSS, ANAMARIA E Primary Care Unavailable MARY PENNINGTON Attending Unavailable GAMBINO, ANJELICA E Referring Unavailable ROSS, ANAMARIA E Primary Care Unavailable MARY PENNINGTON Attending Unavailable ANAMARIA CHINCHILLA E Referring Unavailable AMOR ANAMARIA E Primary Care Unavailable MD Anamaria Chinchilla Attending [...] Provider Anjelica Gambino MD Primary Care Provider [phone] Anamaria Chinchilla Attending Unavailable Matt Richmond Admitting Unavailable YiMatt mark Attending Unavailable Anamaria Chinchilla Admitting Unavailable Anamaria Chinchilla Attending Unavailable Matt Richmond Attending Unavailable Yi, Matt L Attending Unavailable Anamaria Chinchilla Attending Unavailable Kaitlin Santiago Primary Care Physician Kaitlin Kimble Unavailable Unavailable Anamaria Chinchilla Attending Unavailable VIPUL OBANDO Attending Unavailable Anamaria Chinchilla Attending Unavailable Anamaria Chinchilla Attending Unavailable Anamaria Chinchilla Admitting Unavailable Anamaria Chinchilla Attending Unavailable Anjelica Gambino MD Primary Care Provider Yi, LABOR RELATIONS ANALYST Matt Rosado Admitting Unavailable Yi, LABOR RELATIONS ANALYST Matt Rosado Attending Unavailable Harpreet Trejo Attending Unavailable DOTTY Richmond Attending Unavailable Allergies Allergy ClassificationReported Allergen(s)Allergy TypeDate of OnsetReaction(s) Facility (6 sources)atorvastatin; Translations: [atorvastatin]Drug AllergyUnknown (qualifier value)[facility] (20 sources)HYDROmorphone; Translations: [hydromorphone]Drug Kelbqll25-14-9470 Unknown (qualifier value), Unknown, Confusion, HallucinationsFish-[facility] (6 sources)Pyrilamine; Translations: [pyrilamine]Drug AllergyUnknown (qualifier value)[facility] (4 sources)No Known Medication Allergies; Translations: [No Known Medication Allergies]Propensity to adverse reactions (disorder)[facility] (1 source)HYDROmorphone; Translations: [Dilaudid][facility]ergy[facility] Medications Current Medications MedicationDrug Class(es)DatesSig (Normalized)Sig (Original)amLODIPine 5 mg oral tablet (16 sources)Dihydropyridine Calcium Channel BlockerStart: 19-58-0173creo 1 tablet by mouth in the morningamLODIPine (Norvasc) 5 MG tablet Take 5 mg by mouth in the morning. 06/01/2023 Activeaspirin 81 mg oral capsule (18 sources)Platelet Aggregation Inhibitor, Nonsteroidal Anti-inflammatory Drug Start: 94-80-2543xfvv 1 capsule by mouth every other dayaspirin 81 mg oral capsule See Instructions, 1 cap(s) Oral every other day, Refills(s) 0 Start Date: 11/29/22 Status: OrderedStart: 79-10-3218akxc 1 capsule by mouth once daily aspirin 81 mg oral capsule 81 mg = 1 cap(s), Oral, Daily, Refills(s) 0 Start Date: 11/29/22 Status: Orderedtake 1 tablet by mouth every other dayaspirin 81 MG EC tablet Take 81 mg by mouth every other day. Activeaspirin 81 mg chewable tablet Chew 1 tablet (81 mg total) and swallow every other day. Heart health Activebimatoprost 0.01 mg drug implant (14 sources)Prostaglandin AnalogStart: 98-80-9537Rtctjwk 10 mcg intraocular implant mcg, IntraOcular, Once, Refills(s) 0 Start Date: 07/13/24 Status: OrderedStart: 09-99-9633fcmeybstvdz 0.03% ophthalmic solution Refill(s) 0 Start Date: 05/07/24 Status: OrderedBimatoprost (Durysta) 10 MCG implant Inject 10 mcg into the eye if needed ( NEEDED) ActiveDurysta 10 mcg intracameral implant injection in February 2024 both eyestake 1 drop(s) into the eye(s) once daily, then take 1 drop(s) into the eye(s) once daily at bedtimebimatoprost (LATISSE) 0.03 % ophthalmic solution Administer 1 drop to both eyes nightly. Place 1 drop on applicator and apply along skin of upper eyelid at base of eyelashes daily at bedtime; rpt for2nd eye with clean applicator ActiveCalcium Citrate / Vitamin D (3 sources)Start: 83-32-2759vkbpuyg-vitamin D Daily, Refill(s) 0 Start Date: 05/30/23 Status: CyfdbcpXiiritk-Ytxhmzfhis-Dyfsalg D (VITAMIN D3/CALCIUM/PHOSPHORUS PO) (8 sources)take 1 dose by mouth once in the cqezyobYnqxzqx-Jwocuazzwq-Xklkqhe D (VITAMIN D3/CALCIUM/PHOSPHORUS PO) Take 1 each by mouth in the morning. Active denosumab (13 sources)RANK Ligand InhibitorStart: 92-21-3669Bajklifjc (PROLIA SC) Inject 1 Units under the skin every 6 (six) months 07/30/2024 ActiveStart: 07-30-2024 Prolia mg, SubCutaneous, q6mo, Refills(s) 0 Start Date: 07/30/24 Status: Ordered Prolia 60 mg/mL subcutaneous syringe inject 1 milliliter (60 mg) by subcutaneous route every 6 months in the upper arm, upper thigh or abdomendenosumab (PROLIA SUBQ) Inject under the skin every 6 (six) months. Last dose 09/2023 Active denosumab (PROLIA SUBQ) Inject under the skin every 6 (six) months. Last dose 09/2023 0 Activedenosumab (PROLIA SUBQ) Inject under the skin. 0 Activedocusate sodium 50 mg / sennosides, snf 8.6 mg oral tablet (2 sources)Start: 09-27-9406xagy 1 tablet by mouth in the morningsennosides- docusate sodium (SENOKOT-S) 8.6-50 mg Take 1 tablet by mouth in the morning. 60 tablet 11/14/2023 Activedoxycycline hyclate 100 mg oral capsule (1 source)Tetracycline-class DrugStart: 05-07-2024 End: 23-37-9685zukh 1 capsule by mouth twice dailydoxycycline hyclate 100 mg Cap 100 mg = 1 cap(s), Oral, BID, X 7 day(s), # 14 cap(s), Refills(s) 0,Pharmacy: [facility] [id number], 162, cm, 05/07/24 14:07:00 EDT, Height/Length Dosing, 76, kg, 05/07/24 14:07:00 EDT, Weight Dosing Start Date: 05/07/24 Stop Date: 05/14/24 Status: Orderedglucosamine hydrochloride 1500 mg oral tablet (5 sources)Start: 94-62-0834xnukltlcflt hydrochloride 1500 mg oral tablet 1,500 mg, 1 tab(s), Oral, Daily, 30 tab(s), Refill(s)0 Start Date: 12/01/22 Status: Ordered End: 41-63-8660pbhe 1 capsule by mouth once dailyglucosamine sulfate 500 mg capsule 02/27/2025 take 1 capsule by oral route dailyglucosamine HCl/chondroitin jennings (GLUCOSAMINE-CHONDROITIN ORAL) (3 sources)take 1 tablet by mouth in the morningglucosamine HCl/chondroitin jennings (GLUCOSAMINE-CHONDROITIN ORAL) Take 1 tablet by mouth in the morning. joints. Activetake 1 tablet by mouth in the morningglucosamine HCl/chondroitin jennings (GLUCOSAMINE-CHONDROITIN ORAL) Take 1 tablet by mouth in the morning. joints. 0 Activekrill oil 500 mg oral capsule (12 sources)Start: 87-61-8543Vovij Oil ([place]-3) 500 MG capsule Take 500 mg by mouth. 12/01/2022 Activelosartan potassium 100 mg oral tablet (16 sources)Angiotensin 2 Receptor BlockerStart: 70-83-2645crzh 1 tablet by mouth in the morninglosartan (Cozaar) 100 MG tablet Take 100 mg by mouth in the morning. 05/30/2023 ActiveStart: 87-44-9285ssfo 1 tablet by mouth twice daily losartan 25 mg Tab 25 mg = 1 tab(s), Oral, BID, # 180 tab(s), Refills(s) 0, Pharmacy: [facility] [id number], 162, cm, 05/11/23 9:36:00 EDT, Height/Length Dosing, 74.9, kg, 05/11/23 9:36:00 EDT, Weight Dosing Start Date: 05/11/23 Status: Orderedmeloxicam 15 mg oral tablet (6 sources)Nonsteroidal Anti-inflammatory DrugStart: 02-27-2023 End: 34-59-2174louj 1 tablet by mouth once daily as neededmeloxicam 15 mg Tab See Instructions, TAKE ONE TABLET BY MOUTH DAILY NEEDED, # 90 tab(s), Refills (s) 0, Pharmacy: [facility] [id number], 162.6, cm, 12/01/22 15:23:00 EDT, Height/Length Dosing, 76.5, kg, 12/01/22 15:23:00 EDT, Weight Dosing Start Date: 02/27/23 Status: Orderednitrofurantoin, macrocrystals 25 mg / nitrofurantoin, monohydrate 75 mg oral capsule (1 source)Nitrofuran AntibacterialStart: 10-19-2024 End: 56-55-0783cwug 1 capsule by mouth twice dailyMacrobid 100 mg Cap 100 mg = 1 cap(s), Oral, BID, X 7 day(s), # 14 cap(s), Refills(s) 0, Pharmacy: [facility] [id number], 162, cm, 09/17/24 9:18:00 EST, Height/Length Dosing, 77.9, kg, 09/17/24 9:18:00 EST, Weight Dosing Start Date: 10/19/24 Stop Date: 10/26/24 Status: Orderedomega-3 acid ethyl esters (snf) 1000 mg oral capsule (2 sources)take 1 capsule by mouth at bedtimeomega-3 acid ethyl esters (LOVAZA) 1 gram capsule Take 2 capsules (2 g total) by mouth in the morning and 2 capsules (2 g total) before bedtime. 0 ActiveOMEGA-3 ACID ETHYL ESTERS ORAL (3 sources)take 500 mg by mouth once dailyOMEGA-3 ACID ETHYL ESTERS ORAL Take 500 mg by mouth nightly. supplement Activetake 500 mg by mouth once dailyOMEGA-3 ACID ETHYL ESTERS ORAL Take 500 mg by mouth nightly. supplement 0 Active rosuvastatin calcium 20 mg oral tablet (18 sources)HMG-CoA Reductase InhibitorStart: 10-16-6290vtledyladkeu (Crestor) 20 MG tablet Take 20 mg by mouth. 12/01/2022 Activetafluprost 0.015 mg/ml ophthalmic solution (5 sources)Prostaglandin AnalogStart: 09-22-2300djmh 1 drop(s) into the eye(s) once dailyZioptan 0.0015% ophthalmic solution See Instructions, Refill(s) 0, 1 drop(s) Eye-Right & Left once daily Start Date: 05/11/23 Status: Ordered End: 70-90-6057isfq 1 drop(s) into the eye(s) once dailytafluprost (PF) 0.0015 % eye drops in a dropperette 02/27/2025 instill 1 drop into affected eye(s) by ophthalmic route once daily End: 78-11-4862Jvlhnzdupb, PF, (Zioptan) 0.0015 % solution Administer 1 drop into affected eye(s) in the morning. 08/28/2024 DiscontinuedtiZANidine 4 mg oral tablet (1 source)Central alpha-2 Adrenergic AgonistStart: 02-85-4900inERBfbfmv 4 mg Tab 12 tab(s), 0 Refill(s), Refills(s) 0 Start Date: 07/13/24 Status: Ordered Vitamin D3 (2 sources)Start: 31-78-3740Soapkwe D3 Refills(s) 0 Start Date: 07/30/24 Status: Orderedvitamin e 450 mg oral capsule (17 sources)Start: 43-54-6199wgct 1 capsule by mouth once dailyvitamin E 450 mg oral capsule See Instructions, take one daily 400mg, Refills(s) 0 Start Date: 12/01/22 Status: OrderedStart: 20-56-9756gyhfw tocopherol (Vitamin E) 1000 units capsule See Instructions, take one daily 400mg, Refills(s) 0 12/01/2022 Active take 1 capsule by mouth once daily at dinnervitamin E, dl,tocopheryl acet, (vitamin E, dl, acetate,) 180 mg (400 unit) capsule Take 1 capsule (400 Units total) by mouth Daily before evening meal. Activetake 1 capsule by mouth in the morningvitamin E, dl,tocopheryl acet, (vitamin E, dl, acetate,) 100 units Take 1 capsule (100 Units total)by mouth in the morning. 0 Active Completed/Discontinued Medications MedicationDrug Class(es)DatesSig (Normalized)Sig (Original)acetaminophen 500 mg oral tablet (1 source)Start: 11-14-2023 End: 41-04-5670mjed 1 tablet by mouth every six hours as needed for pain acetaminophen (TYLENOL EXTRA STRENGTH) 500 mg tablet Take 1 tablet (500 mg total) by mouth every 6 (six) hours as needed for pain. 60 tablet 0 11/14/2023 11/29/2023 Discontinued (Therapy completed)acetaminophen 325 mg / HYDROcodone bitartrate 5 mg oral tablet (1 source)Opioid Agonist End: rywj 1 tablet by mouth every six hours as needed for pain hydrocodone 5 mg-acetaminophen 325 mg tablet 02/27/2025 take 1 tablet by oral route every 6 hours as needed for painalendronic acid 70 mg oral tablet (4 sources)Bisphosphonate End: 59-55-4411ikev 1 tablet by mouth in the morningalendronate (FOSAMAX) 70 mg tablet Take 70 mg by mouth every 7 days. Take in the morning with a full glass of water, on an empty stomach, and do not take anything else by mouth or lie down for the next 30 min. 0 11/07/2023 Discontinued (Therapy completed) atorvastatin 10 mg oral tablet (4 sources)HMG-CoA Reductase Inhibitor End: 37-03-6259idsi 1 tablet by mouth once dailyatorvastatin (LIPITOR) 10 mg tablet Take 10 mg by mouth daily. 0 11/07/2023 Discontinued (Therapy completed) betamethasone 3 mg/ml / betamethasone acetate 3 mg/ml injectable suspension (1 source)Corticosteroid End: 26-48-9516Vezmufsjm Soluspan 6 mg/mL suspension for injection 02/27/2025 Inject 4 milliliters as directed weeklycalcium carbonate 1500 mg / cholecalciferol 0.01 mg oral tablet (1 source)Vitamin Dtake 1 tablet by mouth once dailyCalcium 600 + D(3) 600 mg-10 mcg (400 unit) tablet take 1 tablet by oral route dailycholecalciferol 0.025 mg oral capsule (6 sources)Vitamin Dtake 1 capsule by mouth once dailyVitamin D3 25 mcg (1,000 unit) capsule take 1 capsule by oral route dailytake 1 capsule by mouth in the morningcholecalciferol, vitamin D3, 2,000 units capsule Take 1 capsule (2,000 Units total) by mouth in themorning. 0 ActiveChondroitin Sulfates / Glucosamine (4 sources)Glucosamine Chondroitin oral 1500mg/1200mg one nightlytake 1 tablet by mouth three times dailyglucosamine-chondroitin 500-400 mg tablet Take 1 tablet by mouth 3 (three) times a day. 0 Activedocusate sodium 100 mg oral capsule (4 sources)take 2 capsules by mouth once daily at bedtime as neededStool Softener 100 mg capsule take 2 capsules (200 mg) by oral route once daily at bedtime as neededFish Oils (1 source)take 1 capsule by mouth once dailyFish Oil 300 mg-1,000 mg capsule take 1 capsule by oral route dailyibuprofen 800 mg oral tablet (1 source)Nonsteroidal Anti-inflammatory DrugStart: 11-14-2023 End: 53-99-7002jeeo 1 tablet by mouth every six hours as needed for pain ibuprofen (MOTRIN) 800 mg tablet Take 1 tablet (800 mg total) by mouth every 6 (six) hours as needed for pain. 60 tablet 0 11/14/2023 11/29/2023 Discontinued (Therapy completed)methylPREDNISolone 4 mg oral tablet (1 source)Corticosteroid End: 90-05-8318Diknqu (Morro) 4 mg tablets in a dose pack 02/27/2025 take by oral route as directed per package instructionsomega-3 fatty acids-fish oil (FISH OIL) 300-1,000 mg capsule (4 sources) End: 24-28-8492mwme 1 capsule by mouth once dailyomega-3 fatty acids-fish oil (FISH OIL) 300-1,000 mg capsule Take 1 g by mouth daily. 0 11/07/2023 D iscontinued (Therapy completed)take 1 capsule by mouth once dailyomega-3 fatty acids-fish oil (FISH OIL) 300-1,000 mg capsule Take 1 g by mouth daily. 0 Active oxyCODONE hydrochloride 5 mg oral tablet (1 source)Opioid AgonistStart: 11-14-2023 End: 15-42-9907gpzz 1 tablet by mouth every six hours as needed for pain oxyCODONE (ROXICODONE) 5 mg immediate release tablet Indications: Post-operative pain Take 1 tablet(5 mg total) by mouth every 6 (six) hours as needed for pain for up to 12 doses. Max Daily Amount: 20 mg 12 tablet 0 11/14/2023 11/29/2023 Discontinued (Therapy completed)psyllium 400 mg oral capsule (10 sources) End: 41-09-8319xrsz 1 capsule by mouth once dailyMetamucil 0.4 gram capsule 02/27/2025 take 1 capsule by oral route daily End: 97-54-4445pfynbnia (Metamucil) 48.57 % powder Orally 08/28/2024 Discontinuedtake 1 dose by mouth in the morningpsyllium (METAMUCIL) 3.4 gram packet Indications: constipation Take 1 packet (3.4 g total) by mouthin the morning. Indications: constipation. Activestool softner (2 sources)Start: 82-93-9596belvq softner stool softner, 100 mg, Oral, Bedtime, take 2 Start Date: 07/30/24 Status: Orderedvitamin E oral 180mg (1 source)vitamin E oral 180mg 1 nightly Problems Active Problems Problem ClassificationProblemDateDocumented DateEpisodic/ChronicAbdominal pain (4 sources)Right sided abdominal kcdp19-58-8502IfrpozulMfsgvnx kidney disease (3 sources)Chronic kidney disease stage 3A ; Translations: [Chronic kidney disease stage 3B ]11-03-0934BxuxoztXavyxgd on above:Added per Dr. Chinchilla query response, per outpatient CDI policy.Deficiency and other anemia (2 sources)Saivrj36-95-0988DkiesmcyZwlvrotdv of lipid metabolism (20 sources)Pure hypercholesterolemia, unspecified; Translations: [Hypercholesterolemia]Onset: 07-19-4905OzoeftoLzktfxfvh hypertension (17 sources)Essential (primary) hypertension; Translations: [Hypertensive disorder]Onset: 85-97-9464MysirbuPxgbmumj (1 source)Unspecified glaucomaChronicHeart valve disorders (1 source)Rheumatic disorders of both mitral and tricuspid valves; Translations: [RHEUMATIC D/O MITRAL TRICUSPID VALV]Onset: 43-83-3598UupackjQlvwevlwljxg with complications and secondary hypertension (3 sources)Hypertensive renal vwsaaio00-30-7080RkrsmsfDizvsvl on above:Linked per outpatient CDI policy.Malaise and fatigue (2 sources)Nrwtszr46-24-5796IsgbngwmZlgfcluhdv disorders (11 sources)Postmenopausal bleeding; Translations: [Postmenopausal bleeding] Onset: 10-27-2023 Resolved: 716832-87-9522XqwgjemLbemjkawovlkae (14 sources)Arthritis; Translations: [Unspecified osteoarthritis, unspecified site]Onset: 579591-32-9238ThsacmuSzakfdxcvyir (15 sources)Senile osteoporosis; Translations: [Age-related osteoporosis without current pathological fracture]Onset: 949727-44-2114XtnkgqfSznny aftercare (1 source)Encounter for other specified surgical aftercare; Translations: [Encounter for other specified surgical aftercare]Onset: 10-25-3046AiwocxayXqhkj connective tissue disease (4 sources)Pain in left foot; Translations: [PAIN IN LEFT FOOT]Onset: 08-03-2022 EpisodicOther connective tissue disease (3 sources)Foot qcif72-57-0530HttjjmucJuldd connective tissue disease (1 source)Biceps ipsshhrubi82-47-0837SjfkvwufDbpro connective tissue disease (1 source)Pain in left bxc58-16-4740TlmzuhkhJxdgm connective tissue disease (1 source)Pain in right legOnset: 82-96-4497RdkosuttAcpzy connective tissue disease (1 source)Pain in left legOnset: 06-31-2183OyvtdylhJutpw injuries and conditions due to external causes (2 sources)Cat bite - oltoz32-60-7808MrgjayjfPczrh lower respiratory disease (2 sources)Chronic yudxy30-74-0977IdmevnzmTchki nervous system disorders (1 source)Other acute postprocedural pain; Translations: [Other acute postprocedural pain]Onset: 11-39-4032SypicthgZslue nervous system disorders (1 source)Other disturbances of skin sensationOnset: 39-41-1568DbeblpzbCrgvp nutritional; endocrine; and metabolic disorders (3 sources)Overweight in adulthood with body mass index of 25 or more but less than 2473-68-8244DwhaapgqGppddzem codes; unclassified (1 source)Pain, unspecified; Translations: [Pain, unspecified]Onset: 10-19-2023 EpisodicResidual codes; unclassified (2 sources)Postmenopausal state; Translations: [Asymptomatic menopausal state] 69-44-8637DkpffgonEmuwomv (1 source)Jmgajub63-96-5811MbndkdicElispgzeq cerebral ischemia (17 sources)Transient cerebral ischemic attack, unspecified; Translations: [Transient cerebral ischemia]Onset: 71-69-5084UadghpmSubuefrilioe (7 sources)Encounter for screening mammogram for malignant neoplasm of breast; Translations: [Patient encounter status]Onset: 66-34-0779LhqinqjoVhoqwhfkwzif (1 source)THICKENED ENDOMETRUM/POST MENOPAUSAL BLEEDING/CERVICAL STENOSISOnset: 23-12-2677Jrpkxyrlojwr (1 source)Patient encounter -82-8349Vfrigfj tract infections (4 sources)Urinary tract infection, site not specified; Translations: [UTI SITE NOT SPECIFIED]Onset: 93-83-2204Jwzjyqla Past or Other Problems Problem ClassificationProblemDateDocumented DateEpisodic/ChronicCardiac dysrhythmias (4 sources)Palpitations; Translations: [PALPITATIONS]Onset: 86-90-9856Vgzklimj Deficiency and other anemia (14 sources)Iron deficiency anemia; Translations: [Iron deficiency anemia, unspecified]Onset: 368477-97-3510CiitprfoTjtnakzy mellitus without complication (1 source)Hyperglycemia, unspecified; Translations: [HYPERGLYCEMIA UNSPECIFIED] Onset: 06-15-7256GlphzbzuEkeui aftercare (2 sources)Postoperative visit; Translations: [Encounter for other specified surgical aftercare]24-64-8727ChebvawuHnstd and unspecified benign neoplasm (8 sources)History of polyp of colon; Translations: [History of colon polyps] Onset: 096360-16-7969QpsgobscNsinj bone disease and musculoskeletal deformities (1 source)Other specified disorders of bone density and structure, unspecified site; Translations: [OTH D/O BONE DEN STRUCT UNS SITE]Onset: 60-44-4142Cnutfgie Other screening for suspected conditions (not mental disorders or infectious disease) (7 sources)Abnormal findings on diagnostic imaging of other specified body structures; Translations: [Endometrium thickened]Onset: 10-27-2023 Resolved: 463457-41-9266VwsekzhFpvovdti codes; unclassified (1 source)Family history of malignant neoplasm of breast; Translations: [FAMILY HX MALIG NEOPLASM OF BREAST]Onset: 19-52-4533VgmeaufaGimhnduc codes; unclassified (1 source)Family history of malignant neoplasm of trachea, bronchus and lung; Translations: [FAM HX MALIG NEOPLSM TRACH BRON LNG]Onset: 18-38-0512Pxenxoyj Unclassified (5 sources)Asymptomatic menopausal state; Translations: [Asymptomatic menopausal state]Onset: 09-43-9151Gkqnqhji Results Test NameValueInterpretationReference RangeFacilityC Urineon 23-16-0835Izzyaxil identified Cx Nom (U)Microbiology PROCEDURE: Urine Culture [R1] SOURCE: U Random BODY SITE: COLLECTED DATE/TIME: 07/01/2025 09:54 EST RECEIVED DATE/TIME: 07/01/2025 18:45 EST START DATE/TIME: 07/01/2025 18:45 EST FREE TEXT SOURCE: Matt Allen, Matt Rosado FINAL REPORTS Final Report [] Verified Date/Time: 07/03/2025 07:14 EST >100,000 cfu/ml Escherichia coli SUSCEPTIBILITY RESULTS LEGEND: S=Susceptible, N/R=Not Reported, Blank=Data not available, or drug not advisable or tested, I=Intermediate, ESBL=Extended spectrum beta-lactamase, R=Resistant, TFG=Thymidine-dependent strain, SUDHAKAR=Beta-lactamase positive, ARNOLD=mcg/m;(mg/L), S*=Predicted susceptible interp, R*=Predicted resistant interp EC Antibiotic ARNOLD Dilutn ARNOLD Interp Ampicillin <=8 S Ampicillin/ <=8/4 S Sulbactam Cefazolin <=2 S Cefepime <=2 S Ceftazidime/ <=8 S Avibactam Ceftriaxone <=1 S Cefuroxime <=4 S Ciprofloxacin <=0.25 S Ertapenem <=0.5 S Gentamicin <=2 S Levofloxacin <=0.5 S Meropenem <=1 S Nitrofurantoin <=32 S Piperacillin/ <=8 S Tazobactam Tetracycline <=4 S Tobramycin <=2 S Trimethoprim/ <=2/38 S Sulfa Performing Locations R1: This test was performed at: [facility], [address] [place] [address], [facility] , , BnqmoqHqljzdAccess Hospital DaytonComment on above:Performed By: #### [id number] #### [facility] [address] [place] [address] TOMOSYNTHESIS SCREENING BIon 95-18-1210[place]qzCl[place], [place] [address] Mammography Report Signed Patient: ISAURA HAYDEN MR#: [id number] : 1950 Acct:[id number] Age/Sex: 74 / F ADM Date: 04/15/25 Loc: MAMMO Attending Dr: Bentley Das D.O. Ordering Physician: Bentley Das D.O. Results: Date of Service: 04/15/25 Follow Up: Procedure(s): MM tomosynthesis screening Accession Number(s): [id number] cc: Bentley Das D.O.; YIMATT MARK Patient Name: ISAURA HAYDEN MR#: [id number] : 1950 Exam Date: 04/15/2025 Ordering Doctor: DR BENTLEY DAS . RADIOLOGY REPORT PROCEDURE: MM TOMOSYNTHESIS SCREENING BI COMPARISON: MM TOMOSYNTHESIS SCREENING BI, 04/09/2024. MM TOMOSYNTHESIS SCREENING BI, 04/04/2023. MG MAMM SCREEN 3D SARAHI CAD, 03/15/2022. MG MAMM SCREEN SARAHI W CAD, 09/12/2017. INDICATIONS: Screening Calculator Name NCI Breast Cancer Risk Assessment Tool 5 Year Breast Cancer Risk 1.40% Lifetime Breast Cancer Risk 3.80% Personal Breast Cancer No Personal Ovarian Cancer No Treatments None Family Cancers Aunt-maternal with breast cancer at age 70; Father with lung cancer at age 70. LOCATION: [facility] BREAST COMPOSITION: There are scattered areas of fibroglandular density. FINDINGS: DIAGNOSTIC CATEGORY 1--NEGATIVE. RIGHT BREAST: No significant suspicious finding. LEFT BREAST: No significant suspicious finding. RECOMMENDATIONS: ROUTINE MAMMOGRAM AND CLINICAL EVALUATION IN 12 MONTHS. Dictated by: Damir Drake DO on 04/15/2025 at 10:17 Approved by: Damir Drake DO on 04/15/2025 at 10:18 Dictated By: Damir Drake M.D. Signed By: 04/15/25 1019 DD/ 1018 TD/TT: Teacher Assistant:TBHRadiology, Radiologist, MD - 04/15/2025 [place] [address] Mammography Report Signed Patient: ISAURA HAYDEN MR#: [id number] : 1950 Acct:[id number] Age/Sex: 74 / F ADM Date: 04/15/25 Loc: MAMMO Attending Dr: Bentley Das D.O. Ordering Physician: Bentley Das D.O. Results: Date of Service: 04/15/25 Follow Up: Procedure(s): MM tomosynthesis screening BI Accession Number(s): [id number] cc: Bentley Das D.O.; MATT RICHMOND Patient Name: ISAURA HAYDEN MR#: [id number] : 1950 Exam Date: 04/15/2025 Ordering Doctor: DR BENTLEY DAS . RADIOLOGY REPORT PROCEDURE: MM TOMOSYNTHESIS SCREENING BI COMPARISON: MM TOMOSYNTHESIS SCREENING BI, 04/09/2024. MM TOMOSYNTHESIS SCREENING BI, 04/04/2023. MG MAMM SCREEN 3D SARAHI CAD, 03/15/2022. MG MAMM SCREEN SARAHI W CAD, 09/12/2017. INDICATIONS: Screening Calculator Name NCI Breast Cancer Risk Assessment Tool 5 Year Breast Cancer Risk 1.40% Lifetime Breast Cancer Risk 3.80% Personal Breast Cancer No Personal Ovarian Cancer No Treatments None Family Cancers Aunt-maternal with breast cancer at age 70; Father with lung cancer at age 70. LOCATION: [facility] BREAST COMPOSITION: There are scattered areas of fibroglandular density. FINDINGS: DIAGNOSTIC CATEGORY 1--NEGATIVE. RIGHT BREAST: No significant suspicious finding. LEFT BREAST: No significant suspicious finding. RECOMMENDATIONS: ROUTINE MAMMOGRAM AND CLINICAL EVALUATION IN 12 MONTHS. Dictated by: Damir Drake DO on 04/15/2025 at 10:17 Approved by: Damir Drake DO on 04/15/2025 at 10:18 Dictated By: Damir Drake M.D. Signed By: 04/15/25 1019 DD/ 1018 TD/TT: Teacher Assistant: [facility] HospitalRadiology Study observation (narrative)[facility] TOMOSYNTHESIS SCREENING BIOrdered By: Radiologist Radiology on [id number] John's Saint Francis Hospital Work Phone: cCF CALCIUMon 18-16-3956Vwgidoz [Mass/Vol]9.1 mg/dL8.5 - 10.1 mg/dLSaint John's Saint Francis HospitalNo Panel Informationon 57-32-0844YIQIMCFPZKIFO HealthcareTBH CREATININEon 50-46-2674Hpxamcfalm [Mass/Vol]1.28 mg/dLHigh0.55 - 1.02 mg/dLNOSelect Specialty HospitalGFR/1.73 sq M.predicted CKD-EPI (S/P/Bld) [Vol rate/Area]50Low>=60 mL/min/1.73m 2NOMS HealthcareInterpretation and review of laboratory resultsAbnormalNOMS HealthcareTBH EGFR-NON AF CVFPZMZA96Lyt>=60 mL/min/1.73m 2NOMS HealthcareNo Panel Informationon 32-24-7153Ixoytqn smoking statusNon-SmokerInvalid Interpretation QuikCycle Ambulatory Visit Summaryon 41-26-4798Efeoxyxgcw Visit SummaryAmbulatory Visit Summary ISAURA HAYDEN :1950 Visit Date:01/28/2025 [...] Follow-Up Appointments 2024 11:00 AM EST Where: [place] [id number]- Medications What How Much When Instructions Unchanged amlodipine (amLODIPine 5 mg Tab) See instructions TAKE 1 TABLET BY MOUTH DAILY Pickup at [facility] [id number] Unchanged aspirin (aspirin 81 mg oral capsule) [...] Every 6 months Contact prescribing physician if questionsor concerns Unchanged glucosamine (glucosamine hydrochloride 1500 mg oral tablet) 1 Tablets By Mouth Every day Contact prescribing physician if questions or concerns Unchanged losartan (losartan 100 mg Tab) 1 Tablets By Mouth Every day Contact prescribing physicianif questions or concerns Unchanged Non-Formulary Medication (stool softner) 100 Milligram By Mouth At bedtime take 2 Contactprescribing physician if questions or concerns Unchanged omega-3 [...] physician if questions or concerns Pharmacy Information [facility] [id number]: [address], [place] [phone] Allergies Dilaudid (Unknown) Problems Ongoing - Any [...] you for choosing us for your care. [facility] Medicine Office/Clinic Noteon 86-82-0627Wlsuvz Medicine Office/Clinic NoteFatufts medical center Medicine Office/Clinic Note Chief Complaint 6 month [...] 8.9 mg/dL (08/09/24 17:11:00) Chloride: 107 mmol/L (08/09/24:11:00) CO2: 27 mmol/L (08/09/24:11:00) Creatinine: 1.1 mg/dL (08/09/24:11:00) eGFR: 53 mL/min/1.73 m2 Low (08/09/24:11:00) Glucose Lvl: 105 mg/dL (08/09/24:11:00) Potassium Lvl: 4.1 mmol/L (08/09/24:11:00) Sodium Lvl: 141 mmol/L (08/09/24:11:00) Refill needed?: yes -losartan and rosuvastatin, Norvasc [...] level of consciousness appropriate for age, CN II- XII intact, motor strength equal & normal bilaterally, [...] DAILY, # 90 tab(s), Refills(s) 1, Pharmacy: [facility] [id number], 162, cm, 01/28/25 9:01:00 EDT, Height/Length Dosing, 78.1, kg, 01/28/25 9:01:00 EDT, Weight Dosing - 74-year-old female with a history of hypertension, chronic kidney disease, and bursitis presenting for management. - Hypertension is well-monitored with appropriate medicative support. - Chronic kidney disease requires continued diligence in management. - Bursitis is under treatment, affecting lifestyle and mobility. - Medication regimens f (more content not included)...[facility] Hospital DaytonComment on above:Result Comment: Electronically Signed By: Amor SHORT, Anamaria Saldivar.kelly\Date and Time Signed: 01/28/25 09:32 EDTReminderson 29-91-3403Vvqtrlzfy Reminders From: Matt Allen To: [facility] - Clinical; Sent: 10/22/2024 08:07:37 EST Show up: 10/22/2024 08:07:00 EST Subject: Ambulatory Reminder Due Date/Time: 10/23/2024 08:06:00 EST urine culture was positive. she is on the correct antibiotic. continue that until it is gone. Is she feeling better? Results: Date Result Type Ind Result Name 10/19/2024 10:39 EST MBO POS Urine Culture From: Maryanne Cramer M.A. ([facility] - Clinical) To: Matt Allen; Sent: 10/22/2024 09:32:36 EST Show up: 10/22/2024 09:31:00 EST Subject: RE: Ambulatory Reminder understands, and she said she is feeling a lot better than what she wasNormal [facility] HospitalRemindersReminderenedina From: Matt Allen To: [facility] - Clinical; Sent: 10/22/2024 08:07:37 EST Show up: 10/22/2024 08:07:00 EST Subject: Ambulatory Reminder Due Date/Time: 10/23/2024 08:06:00 EST urine culture was positive. she is on the correct antibiotic. continue that until it is gone. Is she feeling better? Results: Date Result Type Ind Result Name 10/19/2024 10:39 EST MBO POS [facility]NoChildren[facility] for [facility] Urineon 30-69-2091Bygsjydm identified Cx Nom (U)Microbiology PROCEDURE: Urine Culture [R1] SOURCE: U CleanCatch BODY SITE: COLLECTED DATE/TIME: 10/19/2024 10:39 EST RECEIVED DATE/TIME: 10/19/2024 17:38 EST START DATE/TIME: 10/19/2024 17:38 EST FREE TEXT SOURCE: Yi STORM, Matt STORM, Matt Rosado FINAL REPORTS Final Report [] Verified Date/Time: 10/21/2024 09:49 EST >100,000 cfu/ml Citrobacter koseri SUSCEPTIBILITY RESULTS LEGEND: S=Susceptible, N/R=Not Reported, Blank=Data not available, or drug not advisable or tested, I=Intermediate, ESBL=Extended spectrum beta-lactamase, R=Resistant, TFG=Thymidine-dependent strain, SUDHAKAR=Beta-lactamase positive, ARNOLD=mcg/m;(mg/L), S*=Predicted susceptible interp, R*=Predicted resistant interp Cit[employer] Antibiotic ARNOLD Dilutn RANOLD Interp Ampicillin 16 R* Ampicillin/ <=8/4 S [...] Locations R1: This test was performed at: [facility], [address] [place] [address], [address] , , XfiswuHblhrsAccess Hospital DaytonComment on above:Performed By: #### [id number] #### [facility] [address] [place] [address]NVN CALCIUMon 45-43-5770Jkoogaf [Mass/Vol]8.9 mg/dL8.5 - 10.1 mg/dLNOMS HealthcareCLINISYNCNOMS HealthcareFami Medicine Office/Clinic Noteon 39-34-7401Nyvifw Medicine Office/Clinic NoteFamily Medicine Office/Clinic Note HPI Staff Isaura is [...] under local she went back on 09/13/24 forMRI to be done of right leg. On 09/14/24 she went back for surgery under anesthesia for it to be cleaned about again, Pt states on her way home she doesn't remember anything she had passed out and her call the squad transferred to [facility] she did vomit a few times [...] Assessment/Plan 1. Cat bite of lower leg (S81.659A: Open bite, unspecified lower leg, initial encounter) [...] her called 911 and was taken to [facility]. was hydrated with IV fluids and given zofran. was then discharged home. pt has felt fine since the episode. discussed this could have been caused by her being dehydrated, low blood sugar (due to being NPO) and response to medication they used to put her to sleep. In reviewing her labs her HGB is a little low. discussed rechecking that monica few weeks. 3. Biceps tendinitis (M75.20: Bicipital tendinitis, unspecified shoulder) pt was seen at [facility] ortho Dr. Keith to go over [...] Medications amLODIPine 5 mg Tab, See Instructions amoxicillin-clavulanate 875 mg-125 mg Tab, 1 tab(s), Oral, [...] refusal pneumococcal 23-valent v (more content not included)...[facility] Hospital DaytonComment on above:Result Comment: Electronically Signed By: Matt Allen\.br\Date and Time Signed: 09/17/24 11:46 [facility] ANAon 09-13-2024 KARLEE Pre No anaerobic growth after 48 hrs.Summa HealthComment on above:Performed By: #### ANAC #### [address] [id number] Woundon 09-13-2024 Wound Final No growth at 48 hours.Summa HealthComment on above: Performed By: #### WD #### [address] [address]Iomgno Medicine Office/Clinic Noteon 27-66-2345Drhrvp Medicine Office/Clinic NoteFatufts medical center Medicine Office/Clinic Note HPI Staff Isaura is a 74 year old female presenting with a cat bite on right ankle Onset: History of Present Illness Pt was bit 1-2 days before presenting to me. Seen in [facility] who started the patient on Abx. Area [...] Medications amLODIPine 5 mg Tab, See Instructions amoxicillin-clavulanate 875 mg-125 mg Tab, 1 tab(s), Oral, [...] inactivated 05/17/2011 Recorded pneumococcal 23-valent vaccine 06/25/2008 RecordedAccess Hospital DaytonComment on above:Result Comment: Electronically Signed By: Anamaria Chinchilla MD\.br\Date and Time Signed: 09/11/24 12:15 ESTOR Trackon 39-00-5759Yjlksjeqn Received FromOhioHealth Pickerington Methodist HospitalComment on above:Performed By: #### Outreach Tracking Order #### [facility] [address] [place], [place] [address]Pmokpwenuh Visit Summaryon 98-72-1725Yoxukrnqjy Visit Summary Ambulatory Visit Summary ISAURA HAYDEN :1950 Visit Date:09/10/2024 Ambulatory Visit Instructions Your Diagnosis Cat bite Former smoker BMI 24.0-24.9, adult Your Care Team Attending Physician - Anamaria Chinchilla MD Primary Care Physician - Anamaria Chinchilla MD This Is Your Medications List Non-Formulary Medication (stool softner) amlodipine (amLODIPine 5 mg Tab) amoxicillin-clavulanate (amoxicillin-clavulanate 875 mg-125 mg Tab) aspirin (aspirin 81 [...] AM EDT With: Anamaria Chinchilla MD Where: [place] [address] 2024 11:00 AM EST With: Where: [address] [address]- Medications What How Much When Instructions Unchanged amlodipine (amLODIPine 5 mg Tab) See instructions TAKE 1 TABLET BY MOUTH DAILY Unchanged amoxicillin-clavulanate (amoxicillin-clavulanate 875 mg-125 mg Tab) 1 Tablets By [...] you for choosing us for your care. [facility] Hospital DaytonAmbulatory Visit Summaryon 65-27-2089Qgjkejvgat Visit SummaryAmbulatory Visit Summary ISAURA HAYDEN :1950 Visit Date:08/27/2024 [...] AM EDT With: Anamaria Chinchilla MD Where: [address] [id number]- 2024 11:00 AM EST With: Where: [address] [address]- Medications What How Much When Instructions Unchanged [...] Every 6 months Contact prescribing physician if questionsor concerns Unchanged glucosamine (glucosamine hydrochloride 1500 mg oral tablet) 1 Tablets By Mouth Every day Contact prescribing physician if questions or concerns Unchanged losartan (losartan 100 mg Tab) 1 Tablets By Mouth Every day Contact prescribing physicianif questions or concerns Unchanged Non-Formulary Medication (stool softner) 100 Milligram By Mouth At bedtime take 2 Contactprescribing physician if questions or concerns Unchanged omega-3 [...] you for choosing us for your care. [facility] Medicine Office/Clinic Noteon 66-00-4701Tieirc Medicine Office/Clinic NoteFatufts medical center Medicine Office/Clinic Note Chief Complaint Pain HPI [...] ortho for this. Follow up PRN Ordered: [facility] External Ambulatory Referral 2. CKD stage 3a, GFR 45-59 ml/min (N18.31: Chronic kidney disease, stage 3a) Improved on last lab work. Follow up PRN Ordered: A1c POC [id number] [facility] External Ambulatory Referral 3. BMI 29.0-29.9,adult (Z68.29: Body mass index [BMI] 29.0-29.9, adult) BMI education added Ordered: [facility] External Ambulatory Referral 4. Age-related osteoporosis without current pathological fracture (M81.0: Age- related osteoporosis without current pathological fracture) Reviewed Labs and Dexa. Prolia does not seem to be helping. Follows with Dr. Das. Ordered: [facility] External Ambulatory Referral Follow-up No [...] Results Hgb A1c POC: 5.2 % (08/27/24 12:02:00)NormalMercy Health – The Jewish HospitalComment on above:Result Comment: Electronically Signed By: Amor SHORT, Anamaria Saldivar.br\Date and Time Signed: 08/27/24 12:03 ESTCBC w/ Auto Diffon [id number]/100 WBC (Bld)0.7 %Normal0.0-2.0[facility] Jewish HospitalComment on above:Performed By: #### [id number] #### [place] [facility] [address], [place] [address]Iwqhvyjuh/Leukocytes Auto (Bld) [Pure # fraction]0.1 E9/LNormal 0.0-0.2Fisher [facility] Pr[facility] HospitalComment on above:Performed By: #### [id number] #### [place] [facility] [address], [place] [address]Onivvwnxxrj (Bld) [#/Vol]0.3 E9/LNormal0.0-0.5FKindred Hospital DaytonComment on above:Performed By: #### [id number] #### [facility] [address], [place] [address]Vzywyfjjfzo/100 WBC (Bld)3.2 %Normal0.0-8.0[facility] HospitalComment on above:Performed By: #### [id number] #### [facility] [address], [place] [address]Arzdtmjgbkm distribution width (RBC) [Ratio]13.7 %Normal 10.9-14.2FKindred Hospital DaytonComment on above:Performed By: #### [id number] #### [facility] [address] [place] [address]Qkxlslcdnz (Bld) [Volume fraction]36.1 %Kzrndc77.0-46.0[facility] HospitalComment on above:Performed By: #### [id number] #### [facility] [address] [place] [address]Cbtxsoyegz (Bld) [Mass/Vol]12.3 g/fWMzonkr15.0-16.0[facility] HospitalComment on above:Performed By: #### [id number] #### [facility] [address] [place] [address]Wftzcmcxhzt (Bld) [#/Vol]1.7 E9/LNormal1.0-4.0[facility] HospitalComment on above:Performed By: #### [id number] #### [facility] [address], [place] [address]Obxvvwhdlmg/100 WBC (Bld)20.6 %Nzijtq41.0-50.0[facility] HospitalComment on above:Performed By: #### [id number] #### [facility] [address] [place] [address]FII (RBC) [Entitic mass]33.6 ugFufkfc43.0-34.0[facility] HospitalComment on above:Performed By: #### [id number] #### [place] [facility] [address] [place] [address]BDGT (RBC) [Mass/Vol]34.1 g/uQDnryzw95.4-36.0[facility] HospitalComment on above:Performed By: #### [id number] #### [facility] [address] [place] [address]ZOC (RBC) [Entitic vol]98.7 xPNugcjx99.0-100.0[facility] HospitalComment on above:Performed By: #### [id number] #### [facility] [address] [place] [address]Kyuwxfegz (Bld) [#/Vol]0.6 E9/LNormal0.2-1.0[facility] HospitalComment on above:Performed By: #### [id number] #### [facility] [address] [place] [address]Kgzmzsjmlnw (Bld) [#/Vol]5.8 E9/LNormal2.0-7.5FKindred Hospital DaytonComment on above:Performed By: #### [id number] #### [facility] [address] [place] [address]Blihrmcfymm/100 WBC (Bld)68.8 %Yjjzhm06.0-75.0[facility] Jewish HospitalComment on above:Performed By: #### [id number] #### [facility] [address] [place] [address]Puafcefc402.0 E9/BSlaaop277.0-500.0[facility] Comment on above:Performed By: #### [id number] #### [facility] [address] [place] [address]Skuebsfm mean volume (Bld) [Entitic vol]8.4 fLNormal6.4-10.8 [facility] HospitalComment on above:Performed By: #### [id number] #### [facility] [address], [place] [address]LMO (Bld) [#/Vol]3.7 E12/LLow4.3-5.9[facility] Comment on above:Performed By: #### [id number] #### [facility] [address], [place] [address]HZJ corrected for nucl RBC Auto (Bld) [#/Vol]8.5 E9/LNormal 4.0-11.0[facility] HospitalComment on above:Performed By: #### [id number] #### [facility] [address], [place] [address]HMKWCQMEGJpdorxd By: SYSTEM SYSTEM on - hydroxyvitamin D3 [Mass/Vol]36.9 ng/fSQiqvdo29.0 - 100.0 ng/mLRemisol Chem Albumin [Mass/Vol]4.4 g/dLNormal3.3 - 5.0 gm/dLRemisol ChemAlbumin/Globulin [Mass ratio]1.6 {ratio}Normal1.1 - 2.2Remisol ChemALP [Catalytic activity/Vol]52 [iU]/oNwegsu20 - 98 Int._Unit/LRemisol ChemALT No additional P-5'-P [Catalytic activity/Vol]14 [iU]/dNormal6 - 46 Int._Unit/LRemisol ChemAnion gap [Moles/Vol] 11 mmol/LNormal6 - 16 mEq/LRemisol ChemAST [Catalytic activity/Vol]18 [iU]/d Normal5 - 43 Int._Unit/LRemisol ChemBilirubin [Mass/Vol]0.9 mg/dLNormal0.0 - 1.1 mg/dLRemisol ChemCalcium [Mass/Vol]8.9 mg/dLNormal8.9 - 11.1 mg/dLRemisol Chem Chloride [Moles/Vol]107 mmol/LSwiqiv871 - 111 mmol/LRemisol ChemCholesterol [Mass/Vol]208 mg/xHFcsn548 - 200 mg/dLRemisol ChemCholesterol in HDL [Mass/Vol] 64 mg/dLInvalid Interpretation CodeRemisol ChemComment on above:Result Comment: '>= 60 LOW RISK' '<= 40 HIGH RISK'Cholesterol in LDL [Mass/Vol]104 mg/dLNormal<=129mg/dLRemisol ChemCholesterol in VLDL [Mass/Vol]36 mg/dLNormal7 - 40 mg/dLRemisol ChemCO2 [Moles/Vol]27 mmol/KXfotvn43 - 31 mmol/LRemisol ChemCobalamin (Vitamin B12) [Mass/Vol]253 pg/tBUwssma95 - 1500 pg/mLRemisol ChemCreatinine [Mass/Vol]1.1 mg/dLNormal0.5 - 1.3 mg/dLRemisol AmjuwWAZ94 mL/min/1.73 m2Low>=59mL/min/1.73 m2 Remisol ChemGlobulin (S) [Mass/Vol]2.8 g/dLNormal1.4 - 4.0 gm/dLRemisol Chem Glucose [Mass/Vol]105 mg/iOGvrmjn63 - 199 mg/dLRemisol ChemPotassium [Moles/Vol] 4.1 mmol/LNormal3.5 - 5.3 mmol/LRemisol ChemProtein [Mass/Vol]7.2 g/dLNormal6.0 - 7.8 gm/dLRemisol ChemSodium [Moles/Vol]141 mmol/UQfnahe449 - 145 mmol/LRemisol ChemTriglyceride [Mass/Vol]182 mg/dLHigh<=149mg/dLRemisol ChemTSH Qn2.85 m[IU]/LNormal0.34 - 5.60 mcIU/mLRemisol ChemUrea nitrogen [Mass/Vol]15 mg/dL Normal5 - 21 mg/dLRemisol ChemUrea nitrogen/Creatinine [Mass ratio]14 mg/mg Txwxgs86 - 20Remisol ChemCHEMISTRYOrdered By: Nato Cheung on 08-09-2024 Albumin DL <= 20 mg/L (U) [Mass/Vol]mg/dLNormal0.0 - 1.9 mg/dLRemisol Chem Albumin/Creatinine DL <= 20 mg/L (U) [Mass ratio]NOT CALCULATEDInvalid Interpretation Code0.0 - 30.0Remisol ChemComment on above:Interpretive Data: 30- 300 mg/g Cr indicates an increased risk for diabetic nephropathy. >300 mg/g Cr is consistent with clinical nephropathy.U Itondlijqw250.3 mg/dL Invalid Interpretation CodeRemisol ChemCMPon [id number] [Mass/Vol]4.4 g/dLNormal3.3-5.0[facility] HospitalComment on above:Performed By: #### [id number] #### [facility] [address], [place] [address]Noavaoy/Globulin (S) [Mass conc ratio]1.7Qjxgpb6.1-2.2FKindred Hospital DaytonComment on above:Performed By: #### [id number] #### [facility] [address] [place] [address]RBB [Catalytic activity/Vol]52 Int._Unit/ZFhxjbn53-87XyfjidMercy Health – The Jewish HospitalComment on above:Performed By: #### [id number] #### [facility] [address], [place] [address]SBI No additional P-5'-P [Catalytic activity/Vol]14 Int._Unit/L Normal6-46[facility] Jewish HospitalComment on above:Performed By: #### [id number] #### [facility] [address] [place] [address]Rqlgi gap [Moles/Vol]11 mmol/LNormal6-16[facility] HospitalComment on above:Performed By: #### [id number] #### [facility] [address], [place] [address]DYB [Catalytic activity/Vol]18 Int._Unit/LNormal5-43[facility] Jewish HospitalComment on above:Performed By: #### [id number] #### [facility] [address] [place] [address]Kzndbnole [Mass/Vol]0.9 mg/dLNormal0.0-1.1FKindred Hospital DaytonComment on above:Performed By: #### [id number] #### [facility] [address], [place] [address]Elwarxe [Mass/Vol]8.9 mg/dLNormal8.9-11.1FKindred Hospital DaytonComment on above:Performed By: #### [id number] #### [facility] [address], [place] [address]Fmlicbza [Moles/Vol]107 mmol/KUxkjql302-703IqdekyMercy Health – The Jewish HospitalComment on above:Performed By: #### [id number] #### [facility] [address], [place] [address]UK2 [Moles/Vol]27 mmol/WTcvjxi40-09WotzafMercy Health – The Jewish Hospital Comment on above:Performed By: #### [id number] #### [facility] [address], [place] [address]Vjksppltqa [Mass/Vol]1.1 mg/dLNormal0.5-1.3FKindred Hospital DaytonComment on above:Performed By: #### [id number] #### [facility] [address], [place] [address]Incttphg (S) [Mass/Vol]2.8 g/dLNormal1.4-4.0[facility] HospitalComment on above:Performed By: #### [id number] #### [facility] [address], [place] [address]Fpcbmbm [Mass/Vol]105 mg/kVCechuc81-788WugqsfMercy Health – The Jewish HospitalComment on above:Performed By: #### [id number] #### [facility] [address], [place] [address]Ydildrmyz [Moles/Vol]4.1 mmol/LNormal3.5-5.3FKindred Hospital DaytonComment on above:Performed By: #### [id number] #### [facility] [address], [place] [address]Jastgxs [Mass/Vol]7.2 g/dLNormal6.0-7.8[facility] HospitalComment on above:Performed By: #### [id number] #### [facility] [address], [place] [address]Xqtnbu [Moles/Vol]141 mmol/JFhwlgj017-093QlblobMercy Health – The Jewish HospitalComment on above:Performed By: #### [id number] #### [facility] [address], [place] [address]Hzmq nitrogen [Mass/Vol]15 mg/dLNormal5-21[facility] HospitalComment on above:Performed By: #### [id number] #### [facility] [address], [place] [address]Mlyr nitrogen/Creatinine [Mass ratio]14 No UklvuTicihw02-91 [facility] HospitalComment on above:Performed By: #### [id number] #### [facility] [address], [place] [address]LGRREUTFDDXgiride By: SYSTEM SYSTEM on 61-34-3025Cufehrzbu/100 WBC (Bld)0.7 %Normal0.0 - 2.0 %Remisol HemeBasophils/Leukocytes Auto (Bld) [Pure # fraction]0.1 E9/LNormal0.0 - 0.2 E9/LRemisol HemeEosinophils (Bld) [#/Vol]0.3 E9/LNormal0.0 - 0.5 E9/LRemisol HemeEosinophils/100 WBC (Bld)3.2 %Normal0.0 - 8.0 %Remisol HemeErythrocyte distribution width (RBC) [Ratio]13.7 %Ldbgvq03.9 - 14.2 %Remisol HemeHematocrit (Bld) [Volume fraction]36.1 %Ovwlwq91.0 - 46.0 % Remisol HemeHemoglobin (Bld) [Mass/Vol]12.3 g/cNUepmjz00.0 - 16.0 gm/dLRemisol HemeLymphocytes (Bld) [#/Vol]1.7 E9/LNormal1.0 - 4.0 E9/LRemisol Heme Lymphocytes/100 WBC (Bld)20.6 %Tgtwqa92.0 - 50.0 %Remisol HemeMCH (RBC) [Entitic mass]33.6 xxZxikiy90.0 - 34.0 pgRemisol HemeMCHC (RBC) [Mass/Vol]34.1 g/dL Ylazju59.4 - 36.0 gm/dLRemisol HemeMCV (RBC) [Entitic vol]98.7 zUNvustz85.0 - 100.0 fLRemisol HemeMonocytes (Bld) [#/Vol]0.6 E9/LNormal0.2 - 1.0 E9/LRemisol HemeMonocytes/100 WBC (Bld)6.7 %Normal4.0 - 14.0 %Remisol HemeNeutrophils (Bld) [#/Vol]5.8 E9/LNormal2.0 - 7.5 E9/LRemisol HemeNeutrophils/100 WBC (Bld)68.8 % Nrvnbc67.0 - 75.0 %Remisol QgavTdwkgjvb923.0 E9/LWuqkhd299.0 - 500.0 E9/LRemisol HemePlatelet mean volume (Bld) [Entitic vol]8.4 fLNormal6.4 - 10.8 fLRemisol HemeRBC (Bld) [#/Vol]3.7 E12/LLow4.3 - 5.9 E12/LRemisol HemeWBC corrected for nucl RBC Auto (Bld) [#/Vol]8.5 E9/LNormal4.0 - 11.0 E9/LRemisol HemeLipid Panel on 85-84-6726Xwdlnanyoik [Mass/Vol]208 mg/kHMlye670-862GcougdMercy Health – The Jewish HospitalComment on above:Performed By: #### [id number] #### Nnamdi [facility] [address], [place] [address]Wuqwsdqhdkl in HDL [Mass/Vol]64 mg/dLInvalid Interpretation CodeMercy Health – The Jewish HospitalComment on above:Result Comment: '>= 60 LOW RISK' '<= 40 HIGH RISK'Performed By: #### [id number] #### Nnamdi [facility] [address], [place] [address]Nyeotlimmai in LDL [Mass/Vol]104 mg/dLNormal<=129Mer[facility] – The Jewish HospitalComment on above:Performed By: #### [id number] #### Coto [facility] [address], [place] [address]Tymkauozafh in VLDL [Mass/Vol]36 mg/dLNormal7-40[facility] Jewish HospitalComment on above:Performed By: #### [id number] #### [facility] [address], [place] [address]Yysmolranzjn [Mass/Vol]182 mg/dLHigh<=149[facility] The Jewish HospitalComment on above:Performed By: #### [id number] #### [facility] [address], [place] [address]MKA With T4fr Reflexon 95-67-0831CFQ Qn2.85 m[IU]/LNormal 0.34-5.60[facility] Jewish HospitalComment on above:Performed By: #### [id number] #### [facility] [address], [place] [address]S MA/Cr Ratioon 14-07-2953Zfnupci DL <= 20 mg/L (U) [Mass/Vol] mg/dLNormal0.0-1.9[facility] HospitalComment on above:Performed By: #### [id number] #### [facility] [address], [place] [address]Sluvucr/Creatinine DL <= 20 mg/L (U) [Mass ratio]NOT CALCULATED Invalid Interpretation Code.0-30.0Mer[facility] The Jewish HospitalComment on above: Result Comment: 30-300 mg/g Cr indicates an increased risk for diabetic nephropathy. >300 mg/g Cr is consistent with clinical nephropathy.Performed By: #### [id number] #### [facility] [address], [place] [address]W Hvxgxsvvuy564.3 mg/dLInvalid Interpretation CodeMercy Health – The Jewish HospitalComment on above:Performed By: #### [id number] #### [place] [facility] [address], [place] [address]Mif B12on 73-66-5612Mxpxyllqv (Vitamin B12) [Mass/Vol]253 pg/mL Naltff53-5446YolpmgMercy Health – The Jewish HospitalComment on above:Performed By: #### [id number] #### [facility] [address], [place] [address]Eghguvc D 25 Hydroxyon 95-08-541194879881-auacgwnsdhmuws D3 [Mass/Vol]36.9 ng/kCFbfysu55.0-100.0Mer[facility] – The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 Report Date: 10/17/2023 10:10 At the request of: DIANE WINSLOW Procedure: US pelvis w/ transvaginal EXAMINATION: US [...] a postmenopausal patient. Electronically authenticated by: KVNG MILIAN Date: 10/17/2023 10:10 Dictated By: Kvng iMlian M.D. Signed By: 10/17/23 1012 DD/ 1010 TD/TT: Teacher Assistant:TBHRadiology, Radiologist, - 10/17/2023 [place] [address] Ultrasound Report Signed Patient: ISAURA HAYDEN MR#: [id number] : 1950 Acct:[id number] Age/Sex: 73 / F ADM Date: 10/17/23 Loc: US Attending Dr: Diane Winslow Ordering Physician: Diane Winslow Date of Service: 10/17/23 Procedure(s): US pelvis w/ transvaginal Accession Number(s): [id number] cc: Diane Winslow; ANAMARIA CHINCHILLA The [address] [address] Patient Name: ISAURA HAYDEN MRN: [id number] date: 1950 Sex: F Assigned Patient Location: US Current Patient Location: INF Accession/Order Number: [id number] Exam Date: 10/17/2023 08:55 Report Date: 10/17/2023 10:10 At the request of: DIANE WINSLOW Procedure: US pelvis w/ transvaginal EXAMINATION: US [...] a postmenopausal patient. Electronically authenticated by: KVNG MILIAN Date: 10/17/2023 10:10 Dictated By: Kvng Milian M.D. Signed By: 10/17/23 1012 DD/ 1010 TD/TT: Teacher Assistant: RAYSA WeVideo.ItRadiology Study observation (narrative)NOM Feedback PELVIS W/ TRANSVAGINALOrdered By: Radiologist Radiology on 76-76-4284VQ[facility] Work Phone: consultation Noteon 95-63-5597Uyqgpxsrrtyw Note [id number]#1.00TIFFlower HospitalRAD - MISCon 99-53-0448UWT - MISC [id number]#1.00TIFFlower HospitalConsultation Noteon 44-59-0434Trqimrkvyhgx Note [id number]#1.00TIFFlower HospitalConsultation Noteon 09-68-6560Yvvcrogvqhfv Note [id number]#1.00Mer[facility] Health Willard HospitalDexa Scanson 07-66-8921Hdwz Scans [id number]#1.00[facility] Willard HospitalConsultation Noteon 16-22-5514Dgzumigqomem Note [id number]#1.00[facility] Will[facility] HospitalPatient Logson 39-78-3334Dfennus Logs [id number]#1.00TIFFNormalMercy Health – The Jewish HospitalAmbulatory Visit Summaryon 20-48-2437Hiiertwgug Visit Summary ISAURA HAYDEN :1950 Visit Date:09/01/2023 [...] Anamaria Chinchilla MD Where: [facility] [place] [id number]- \.br\ Medications\.br\ What How Much When Instructions\.br\ Unchanged amlodipine (amLODIPine 5 mg Tab) See instructions TAKE 1 TABLET BY MOUTH DAILY \.br\ Unchanged aspirin (aspirin 81 mg oral capsule) See instructions 1 cap(s) Oral every other day \.br\ Unchanged calcium-vitamin D Every day\.br\ Unchanged glucosamine (glucosamine hydrochlori de 1500 mg oral tablet) 1 Tablets By [...] 400mg \.br\ Allergies\.br\ Dilaudid (Unknown)\.br\ atorvastatin (Unknown)\.br\ pyril amine (Unknown)\.br\ Problems\.br\ Ongoing - Any problem that you are currently receiving treatmentfor.\.br\ Age-related osteoporosis without current pathological fracture\.br\ Chronic kidney disease, stage 3a\.br\ Foot pain, right\.br\ Hypercholesterolemia\.br\ Hyperlipidemia\.br\ Hypertension\.br\ Hypertensive kidney disease with stage 3a chronic kidney disease\.br\ Postmenopause bleeding\.br\Pre-op exam\.br\ Right sided abdominal pain\.br\ TIA (transient ischemic attack)\.br\ Patient Survey\.br\ You may receive a survey via text or e-mail asking about your office visit. Please share yourexperience with us by completing your survey. We appreciate your feedback and thank you for choosing us for your care.\.br\ \.br\Nnamdi [facility] Consultation Noteon 48-20-3388Yyisltnhbcbo Note [id number]#1.00TIFFNormalRandolph Healthyazmin [facility] Medicine Office/Clinic Noteon 99-49-4339Nrcidw Medicine Office/Clinic NoteChief Complaint high blood pressure HPI Staff Dr. [...] 96.3 fL (05/11/23) Chloride: 108 mmol/L (05/11/23) Worth Absolute: 0.4 E9/L (05/11/23) CO2: 27 mmol/L (05/11/23) Worth Auto: 7.8 % (05/11/23) Creatinine: 1.3 mg/dL [...] yesterday and she did not which caused hersome stress. She states she has been eating [...] Medical History Ongoing Ag (more content not included)...Access Hospital DaytonComment on above:Result Comment: Electronically Signed By: VIPUL OBANDO CNP\.kelly\Date and Time Signed: 09/01/23 13:24 ESTPatient Educationon 81-27-8994Hudxskz EducationNutrition DASH Eating Plan DASH stands for Dietary [...] body weight or to lose weight. Ask whatan ideal weight is for you. ? Get at least 30 minutes of exercise that causes your heart to beat faster (aerobic exercise) mostdays of the week. Activities may include walking, swimming, or biking. ? Work with your health care provider or dietitian to adjust your eating plan to your individual calorie needs. What foods should I eat? Fruits All fresh, dried, or frozen fruit. Canned fruit in natural juice (without added sugar). Vegetables Fresh or frozen vegetables (raw, steamed, roasted, or grilled). Low-sodium or reduced-sodium tomatoand vegetable juice. Low-sodium or reduced-sodium tomato sauce and tomato paste. Low-sodium or reduced-sodium canned vegetables. Grains Whole-grain or whole-wheat bread. Whole-grain or whole-wheat pasta. Brown rice. Oatmeal. Quinoa. Bulgur. Whole-grain and low-sodium cereals. Clare bread. Low- fat, low-sodium crackers. Whole-wheat flour tortillas. Meats and [...] milk. Reduced-fat, low-fat, or fat-free cheeses. Nonfat, low-sodiumricotta or cottage cheese. Low-fat or nonfat yogurt. Low-fat, low-sodium cheese. Fats and oils Soft margarine without trans fats. Vegetable oil. Reduced-fat, low-fat, or light mayonnaise and salad dressings (reduced-sodium). Canola, safflower, olive, avocado, soybean, and sunflower oils. Avocado. Seasonings and condiments Herbs. Spices. Seasoni (more content not included)...Access Hospital DaytonConsultation Noteon 53-39-8206Otnzyjzhqsis Note [id number]#1.00TIFFlower HospitalRAD - CT Reporton 42-46-4408LCV - CT Report [id number]#1.00[facility] Willard HospitalOperative Reporton 95-86-0903Ptomcaipe Report [id number]#1.00[facility] HospitalPatient Correspondenceon 03-80-7938Qxujhnn Correspondence [id number]#1.00[facility] Will[facility] HospitalProvider Letteron 63-73-6347Bwwzbcsb Letter [address] [place] [address] August 12, 2023 ISAURA HAYDEN [address] [address] : [address] Das, The above patient has been evaluated at your request for preoperative clearance. After assessment of available pertinent labs and diagnostic tests, I feel this patient is medicallyoptimized for surgery. Final discretion of whether the patient is cleared for surgery remains up tothe surgeon/anesthesiologist. Thank you, DOTTY Vásquez-MILANOhioHealth Grant Medical CenterAmbulatory Visit Summaryon 81-83-0355Zygnfhnljk Visit Summary CATRACHO ISAURA L :1950 Visit Date:08/11/2023 Ambulatory Visit Instructions Your Care Team Attending Physician - Ross Anamaria SHORT Primary Care Physician - Anamaria Chinchilla MD [...] AM EST With: Anamaria Chinchilla MD Where: [facility] [place] [id number]- \.br\ Medications\.br\ What How Much When Instructions\.br\ Unchanged amlodipine (amLODIPine 5 mg Tab) See instructions TAKE 1 TABLET BY MOUTH DAILY \.br\ Unchanged aspirin (aspirin 81 mg oral capsule) See instructions 1 cap(s) Oral every other day \.br\ Unchanged calcium-vitamin D Every day\.br\ Unchanged glucosamine (glucosamine hydrochlori de 1500 mg oral tablet) 1 Tablets By [...] kidney disease, stage 3a\.br\ Foot pain, right\.br\ Hypercholesterolemia\.br\ Hyperlipidemia\.br\ Hypertension\.br\ Hypertensive kidney disease with stage 3a chronic kidney disease\.br\ Postmenopause bleeding\.br\ Right sided abdominal pain\.br\ TIA (transient ischemic attack)\.br\ Patient Survey\.br\ You may receive a survey via text or e-mail asking about your office visit. Please share your experience with us by completing your survey. We appreciate your feedback and thank you for choosing us for your care.\.br\ \.br\[facility] Medicine Office/Clinic Notejustin 26-54-5760Zcmfpq Medicine Office/Clinic NoteVALLEY VIEW [facility] Staff Isaura is a 73 year old [...] inactivated 05/17/2011 Recorded pneumococcal 23-valent vaccine 06/25/2008 RecordedNoSt. Mary's Medical Center, Ironton CampusComment on above:Result Comment: Electronically Signed By: Amor SHORT, Anamaria Saldivar.br\Date and Time Signed: 08/11/23 12:57 EITAN 12-LEADon 89-13-3856Bsy[place], [place] [address] Electrocardiograph Report Signed Patient: ISAURA HAYDEN MR#: [id number] : 1950 Acct:[id number] Age/Sex: 73 / F ADM Date: 08/05/23 Loc: PST Attending Dr: Bentley Das D.O. Ordering Physician: Bentley Das D.O. Date of Service: 08/05/23 Procedure(s): ECG 12 lead Accession Number(s): [id number] cc: [facility] Test Date: 2023-08-05 Pat Name: ISAURA HAYDEN Department: Room: - Gender: Female Die Inspector: : 1950 Requested By: BENTLEY DAS Order Number: [id number] Reading MD: RUBIO STRICKLAND Measurements Intervals [place] Rate: 50 P: 59 CO: 206 QRS: 8 QRSD: 104 T: 29 QT: 432 QTc: 396 Interpretive Statements SINUS BRADYCARDIA POSSIBLE LEFT ATRIAL ENLARGEMENT [-0.1mV P WAVE IN V1/V2] No previous ECG available for comparison Electronically Signed On 08-07-2023 16:47:26 EST by RUBIO STRICKLAND Dictated By: Rubio Strickland D.O. Signed By: 08/07/23 1647 DD/ 0940 TD/TT: Teacher Assistant:TBHRadiology, Radiologist, MD - 08/07/2023 [place] [address] Electrocardiograph Report Signed Patient: ISAURA HAYDEN MR#: [id number] : 1950 Acct:[id number] Age/Sex: 73 / F ADM Date: 08/05/23 Loc: PST Attending Dr: Bentley Das D.O. Ordering Physician: Bentley Das D.O. 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 Signed By: 08/07/23 1647 DD/ 0940 TD/TT: Teacher Assistant: [facility] GENERAL HOSPITALGravity RenewablesECG 12-LEADOrdered By: Radiologist Radiology on 79-07-5710TMEV We[employer].It Work Phone: ECW 12-LEADon 78-99-1083Onazmzcxr Study observation (narrative)[facility] HealthcareCHEMISTRYOrdered By: SYSTEM SYSTEM on 05-11-2023 Albumin [Mass/Vol]4.3 g/dLNormal3.3 - 5.0 gm/dLFTMC RemisolAlbumin/Globulin [Mass ratio]1.3 {ratio}Normal1.1 - 2.2FTMC RemisolALP [Catalytic activity/Vol]46 [iU]/nGrnhwg44 - 98 Int._Unit/LFTMC RemisolALT No additional P-5'-P [Catalytic activity/Vol]16 [iU]/dNormal6 - 46 Int._Unit/LFTMC RemisolAmylase [Catalytic activity/Vol]74 U/AAmvvav99 - 157 unit/LFTMC RemisolAnion gap [Moles/Vol]10 mmol/LNormal6 - 16 mEq/LFTMC RemisolAST [Catalytic activity/Vol]23 [iU]/dNormal5 - 43 Int._Unit/LFTMC RemisolBilirubin [Mass/Vol]0.6 mg/dLNormal0.0 - 1.1 mg/dL [facility] RemisolCalcium [Mass/Vol]9.5 mg/dLNormal8.9 - 11.1 mg/dLFTMC Remisol Chloride [Moles/Vol]108 mmol/RUnssih971 - 111 mmol/LFTMC RemisolCO2 [Moles/Vol] 27 mmol/ZMzeggm65 - 31 mmol/LFTMC RemisolCreatinine [Mass/Vol]1.3 mg/dLNormal0.5 - 1.3 mg/dLFTMC RemisolGFR/1.73 sq M.predicted among non-blacks MDRD (S/P/Bld) [Vol rate/Area]44 mL/min/1.73 m2Low>=59mL/min/1.73 m2FTMC Chem SGlobulin (S) [Mass/Vol]3.2 g/dLNormal1.4 - 4.0 gm/dLFTMC RemisolGlucose [Mass/Vol]93 mg/dL Escosb30 - 199 mg/dLFTMC RemisolLipase [Catalytic activity/Vol]46 U/RHtoamj53 - 58 unit/LFTMC RemisolPotassium [Moles/Vol]4.3 mmol/LNormal3.5 - 5.3 mmol/LFTMC RemisolProtein [Mass/Vol]7.5 g/dLNormal6.0 - 7.8 gm/dLFTMC RemisolSodium [Moles/Vol]141 mmol/HVgnrix684 - 145 mmol/LFTMC RemisolUrea nitrogen [Mass/Vol] 21 mg/dLNormal5 - 21 mg/dLFTMC RemisolUrea nitrogen/Creatinine [Mass ratio]16 mg/lsObolod98 - 20FTMC RemisolHEMATOLOGYOrdered By: SYSTEM SYSTEM on 05-11-2023 Basophils/100 WBC (Bld)0.8 %Normal0.0 - 2.0 %[facility] HemeAutoSSBasophils/Leukocytes Auto (Bld) [Pure # fraction]0.0 E9/LNormal0.0 - 0.2 E9/LFTMC HemeAutoSS Eosinophils/100 WBC (Bld)5.2 %Normal0.0 - 8.0 %[facility] HemeAutoSS Eosinophils/Leukocytes Auto (Bld) [Pure # fraction]0.3 E9/LNormal0.0 - 0.5 E9/L [facility] HemeAutoSSLymphocytes/100 WBC (Bld)31.3 %Swrxif95.0 - 50.0 %[facility] HemeAutoSS Lymphocytes/Leukocytes Auto (Bld) [Pure # fraction]1.8 E9/LNormal1.0 - 4.0 E9/L [facility] HemeAutoSSMonocytes/100 WBC (Bld)7.8 %Normal4.0 - 14.0 %[facility] HemeAutoSS Monocytes/Leukocytes Auto (Bld) [Pure # fraction]0.4 E9/LNormal0.2 - 1.0 E9/L [facility] HemeAutoSSNeutrophils/100 WBC (Bld)54.9 %Iengby03.0 - 75.0 %[facility] HemeAutoSS Neutrophils/Leukocytes Auto (Bld) [Pure # fraction]3.1 E9/LNormal2.0 - 7.5 E9/L [facility] HemeAutoSSHEMATOLOGYOrdered By: Nato Cheung on 18-69-3064Ozjqfzteglr distribution width (RBC) [Ratio]12.9 %Xpjxuz30.9 - 14.2 %[facility] HemeAutoSS Hematocrit (Bld) [Volume fraction]34.9 %Bhhefx47.0 - 46.0 %[facility] HemeAutoSS Hemoglobin (Bld) [Mass/Vol]11.8 g/dLLow12.0 - 16.0 gm/dLFTMC HemeAutoSSMCH (RBC) [Entitic mass]32.6 mtWcbuky40.0 - 34.0 pgFTMC HemeAutoSSMCHC (RBC) [Mass/Vol] 33.9 g/hWVdrqpk56.4 - 36.0 gm/dLFTMC HemeAutoSSMCV (RBC) [Entitic vol]96.3 fL Umbpno27.0 - 100.0 fLFTMC HemeAutoSSPlatelet mean volume (Bld) [Entitic vol]8.2 fLNormal6.4 - 10.8 fLFTMC HemeAutoSSPlatelets (Bld) [#/Vol]275.0 E9/ADjgooq692.0 - 500.0 E9/LFTMC HemeAutoSSRBC (Bld) [#/Vol]3.6 E12/LLow4.3 - 5.9 E12/LFTMC HemeAutoSSWBC corrected for nucl RBC Auto (Bld) [#/Vol]5.6 E9/LNormal4.0 - 11.0 E9/LFTMC HemeAutoSSURINALYSISOrdered By: Dinah Almazan on 91-17-8636Ifkxuzmx LM Ql (Urine sed)Trace /HPFNormalTrace/HPFSOUTHWESTERN [facility] [place] UA Auto SSBilirubin Ql (U)Negative (05/11/23 12:05 PM)NormalNegativeSOUTHWESTERN [facility]IONAL [facility] [place] UA Auto SSClarity (U)Clear (05/11/23 12:05 PM)NormalClearFAMG [facility] UA Auto SSColor (U)Yellow (05/11/23 12:05 PM)NormalYellowSOUTHWESTERN REGIONAL [facility] [place] UA Auto SSCrystals LM Ql (Urine sed)Present (05/11/23 12:05 PM)NormalSOUTHWESTERN REGIONAL [facility] [place] UA Auto SSEpithelial cells.squamous LM.HPF (Urine sed) [#/Area]5-8 /HPFNormal0-2/HPFSOUTHWESTERN REGIONAL [facility] [place] UA Auto SSGlucose Test strip (U) [Mass/Vol]Negative (05/11/23 12:05 PM)NormalNegativeSOUTHWESTERN [facility] [place] UA Auto SSHemoglobin Ql (U)Trace *ABN* (05/11/23 12:05 PM)Invalid Interpretation CodeNegativeSOUTHWESTERN [facility]ION[facility] [place] UA Auto SSKetones (U) [Mass/Vol]Negative (05/11/23 12:05 PM)NormalNegativeSOUTHWESTERN [facility]ION[facility] [place] UA Auto SSLithium.plasma/[place].RBC (Bld) [Mass ratio]0-3 /HPFNormal0-3/HPFSOUTHWESTERN REGIONAL [facility] [place] UA Auto SSMucus Ql (Urine sed)2+ (05/11/23 12:05 PM)NormalSOUTHWESTERN [facility]ION[facility] [place] UA Auto SSNitrite Ql (U)Negative (05/11/23 12:05 PM)NormalNegativeSOUTHWEST[facility] [place] UA Auto SSpH (U)7.0 *NA* (05/11/23 12:05 PM)Invalid Interpretation Code5.0 - 9.0[facility] UA Auto SSProtein (U) [Mass/Vol]Negative (05/11/23 12:05 PM)NormalNegativeSOUTHWESTERN [facility] [place] UA Auto SSSpecific gravity (U) [Rel density]1.010 *NA* (05/11/23 12:05 PM)Invalid Interpretation Code1.005 - 1.030S[facility] UA Auto SSUA Spec DescClean Catch (05/11/23 12:05 PM)NormalSOUTHWESTERN REGION[facility] [place] UA Auto SSUrobilinogen Qn (U)0.7737534 {Leon'U}/dLNormal0.0 - 1.0 EU/dLSALEM HOSPITAL Auto SSWBC Auto Ql (U)1+ *ABN* (05/11/23 12:05 PM)Invalid Interpretation CodeNegativeSALEM HOSPITAL Auto SSWBC LM.HPF (Urine sed) [#/Area]0-5 /HPFNormal0-5/HPFSOUTHWESTERN REGIONAL [facility] [place] UA Auto SSCULTURE URINEon 56-34-7569IQSRSUK URINECulture Observations: LIGHT GROWTH OF MIXED GENITAL NAN. NO POTENTIAL PATHOGENS SEEN.NormalClermont County Hospital HospitalComment on above:Performed By: #### URCX #### [facility] [address] [place] [address] Dr. Melchor Winter (CLEAN/CATCH) MICROSCOPIC IF INDICATEon 50-77-8699Sjduaigit Ql (U)NegativeNormalNEGATIVEUniversity Hospitals Elyria Medical CenterComment on above:Performed By: #### UMICRO UARMICR #### [facility] [address] [place] [address] Dr. Melchor BrockClarity (U)CLEARNormalCLEARUniversity Hospitals Elyria Medical CenterComment on above: Performed By: #### UMICRO UARMICR #### [facility] [address] [place] [address] Dr. Melchor Lugo (U)LT. YELLOWNormalYELLOWUniversity Hospitals Elyria Medical CenterComment on above:Performed By: #### UMICRO, UARMICR #### [facility] [address] [place] [address] [address] Melchor BrockGlucose Ql (U)NegativeNormalNEGATIVEUniversity Hospitals Elyria Medical CenterComment on above:Performed By: #### UMICRO, UARMICR #### [facility] [address] [place] [address] Dr. Melchor BrockHemoglobin Ql (U)TRACE-INTACTAbnormalNEGATIVEUniversity Hospitals Elyria Medical CenterComment on above:Performed By: #### UMICRO, UARMICR #### [facility] [address] [place] [address] Dr. Melchor BrockKetones Ql (U)NegativeNormalNEGATIVEUniversity Hospitals Elyria Medical CenterComment on above:Performed By: #### CASH UARMICR #### [facility] [address] [place] [address] [address] Melchor QuesadaOCYTESTRACEAbnormalNEGATIVEThe Peoples HospitalComment on above:Performed By: #### CASH UARMICR #### [facility] [address] [place] [address] [address] Melchor Glover Ql (U)NegativeNormalNEGATIVEThe Peoples HospitalComment on above:Performed By: #### CASH UARMICR #### [facility] [address] [place] [address] [address] Melchor Hernandez (U)6.0 [pH]Normal5-9The [facility] HospitalComment on above: Performed By: #### FLORENCE CASTREJONRMICR #### [facility] [address] [place] [address] [address] Melchor BrockSPEC [id number]-<=1.025The Peoples HospitalComment on above:Performed By: #### FLORENCE CASTREJONRMICR #### [facility] [address] [place] [address] Dr. Melchor Winter PROTEINNegativeNormalNEGATIVE/ TRACEThe [facility] Comment on above:Performed By: #### CASH UARMICR #### [facility] [address] [place] [address] [address] Melchor Rothman MICRO INDINDICATEDNormalThe Peoples HospitalComment on above: Performed By: #### CASH UARMICR #### [facility] [address] [place] [address] [address] Melchor lElis Qn (U)0.2 {Leon'U}/dLNormal0.2 - 1.0The Peoples HospitalComment on above:Performed By: #### CASH UARMICR #### [facility] [address] [place] [address] Dr. Melchor Bolanos MICROSCOPIC ONLYon 85-58-8300OLTVMOUCNQVJ SEENNormalNONE SEENOhioHealth Berger Hospital on above:Performed By: #### GLUC, LIPID #### [facility] [address] [address] [address] Melchor Madrigal identified Cx Nom (U)CX ALREADY ORDEREDNormalThClinton Memorial HospitalComment on above:Performed By: #### GLUC, LIPID #### [facility] [address] [address] [address] Melchor De La Cruz SEENNormalNONE SEENOhioHealth Berger Hospital on above:Performed By: #### GLUC, LIPID #### [facility] [address] [address] [address] Melchor Michelleystals LM Nom (Urine sed)NONE SEENNormalNONE SEENOhioHealth Berger Hospital on above:Performed By: #### GLUC, LIPID #### [facility] [address] [address] [address] Roche ChangEkirkthelial cells LM Ql (Urine sed)RARENormalNONE SEEN /RAREUniversity Hospitals Elyria Medical CenterComup health system on above:Performed By: #### GLUC, LIPID #### [facility] [address] [address] [address] Melchor BrockMUCOUSVAISHALI SEENNormalNONE SEENOhioHealth Berger Hospital on above:Performed By: #### GLUC, LIPID #### [facility] [address] [address] [address] Melchor Da SilvaXkohsLRV0-6Trwstq9-6VhdOhioHealth Berger Hospital on above:Performed By: #### GLUC, LIPID #### [facility] [address] [address] [address] Melchor BrockWBC0-2AbnormalNONE SEENOhioHealth Berger Hospital on above: Performed By: #### GLUC, LIPID #### [facility] [address] [address] [address] Melchor BrockMG MAMM SCREEN 3D SARAHI CADon 06-09-0915XK MAMM SCREEN 3D SARAHI CAD Patient: ISAURA HAYDENLaurie Exam Date: 03/15/2022 : 1950 Gender:F Ordering : DR FARA BOOKER . Admission #: [id number] Family : Order #: [id number] CLICK HERE TO VIEW EXAM RADIOLOGY REPORT [...] lung cancer at age 72. LOCATION: [facility] BREAST COMPOSITION: Heterogeneously dense,which may obscure [...] by: Alan Cárdenas M.D. on 03/15/2022 at 11:41[facility] Medical CenterGLUCOSE BLOODon 66-83-3725Zqksqeh [Mass/Vol]99 mg/zABgaobv43-166Zsn [facility] HospitalComment on above:Performed By: #### GLUC, LIPID #### [facility] [address] [place] [address] Dr. Melchor BrockLIPID PROFILEon 01-63-6129CXUC-HDL RATIO NORMSEE BELOWCincinnati VA Medical CenterComment on above:Result Comment: 3.3 - 4.4 LOW RISK 4.4 - 7.1 AVERAGE RISK 7.1 - 11.0 MODERATE RISK >11.0 HIGH RISKPerformed By: #### GLUC, LIPID #### [facility] [address] [address] [address] Melchor BrockCholesterol [Mass/Vol]202 mg/dLCritically high<=200[facility] on above:Performed By: #### GLUC, LIPID #### [facility] [address] [address] [address] Melchor BrockCholesterol in HDL [Mass/Vol]56 mg/qZYwvaon51-83AlnOhioHealth Berger Hospital on above:Performed By: #### GLUC, LIPID #### [facility] [address] [address] [address] Melchor BrockCholesterol in LDL [Mass/Vol]112.6 mg/dLProMedica Fostoria Community Hospital on above:Performed By: #### GLUC, LIPID #### [facility] [address] [place] [address] Dr. Melchor Hurtadoestermaia.total/Cholesterol in HDL [Mass ratio]3.6 {ratio} NormalThe Samaritan Hospital on above:Performed By: #### GLUC, LIPID #### [facility] [address] [place] [address] Dr. Melchor Hutton NORMAL> or = 60 mg/dl - LOW CARDIOVASCULAR RISK <40 mg/dl - HIGH CARDIOVASCULAR RISKProMedica Fostoria Community Hospital on above:Performed By: #### GLUC, LIPID #### [facility] [address] [place] [address] Dr. Melchor Anne CALC NORMALSEE BELOWCincinnati VA Medical CenterComup health system on above:Result Comment: <100 mg/dl OPTIMAL 100 - 129 mg/dl NEAR OR ABOVE OPTIMAL 130 - 159 mg/dl BORDERLINE HIGH 160 - 189 mg/dl HIGH >190 mg/dl VERY HIGH Performed By: #### GLUC, LIPID #### [facility] [address] [place] [address] Dr. Melchor BrockTriglyceride [Mass/Vol]167 mg/dLCritically high<=150[facility] on above:Performed By: #### GLUC, LIPID #### [facility] [address] [place] [address] Dr. Melchor BrockVLDL CALC33.4 mg/dLCincinnati VA Medical CenterComup health system on above: Performed By: #### GLUC, LIPID #### [facility] [address] [address] [address] Melchor KongID PROFILEon 70-32-7076NYMN-HDL RATIO NORMSHighland District HospitalComup health system on above:Result Comment: 3.3 - 4.4 LOW RISK 4.4 - 7.1 AVERAGE RISK 7.1 - 11.0 MODERATE RISK >11.0 HIGH RISKPerformed By: #### LIPID, BMP #### [facility] [address] [address] [address] Melchor BrockCholesterol [Mass/Vol]244 mg/dLCritically high<=200[facility] on above:Performed By: #### LIPID, BMP #### [facility] [address] [place] [address] Dr. Melchor BrockCholesterol in HDL [Mass/Vol]60 mg/gULbysxx34-97ElvUniversity Hospitals Elyria Medical CenterComup health system on above:Performed By: #### LIPID, BMP #### [facility] [address] [place] [address] Dr. Melchor BrockCholesterol in LDL [Mass/Vol]158.4 mg/dLCincinnati VA Medical CenterComup health system on above:Performed By: #### LIPID, BMP #### [facility] [address] [place] [address] Dr. Melchor Hurtadoestermaia.total/Cholesterol in HDL [Mass ratio]4.1 {ratio} NormalThe Samaritan Hospital on above:Performed By: #### LIPID, BMP #### [facility] [address] [place] [address] Dr. Melchor BrockHDL NORMAL> or = 60 mg/dl - LOW CARDIOVASCULAR RISK <40 mg/dl - HIGH CARDIOVASCULAR RISKCincinnati VA Medical CenterComup health system on above:Performed By: #### LIPID, BMP #### [facility] [address] [place] [address] Dr. Melchor BrockLDL CALC NORMALSEE [facility] So[facility] Medical CenterComup health system on above:Result Comment: <100 mg/dl OPTIMAL 100 - 129 mg/dl NEAR OR ABOVE OPTIMAL 130 - 159 mg/dl BORDERLINE HIGH 160 - 189 mg/dl HIGH >190 mg/dl VERY HIGH Performed By: #### LIPID, BMP #### [facility] [address] [place] [address] Dr. Melchor BrockTriglyceride [Mass/Vol]128 mg/dLNormal<=150[facility] Comment on above:Performed By: #### LIPID, BMP #### [facility] [address] [place] [address] Dr. Melchor BrockVLDL CALC25.6 mg/dLNormalThe Peoples HospitalComment on above: Performed By: #### LIPID, BMP #### [facility] [address] [place] [address] Dr. Melchor BrockPROKell CHEM 8 (BAS METB)on 89-90-7686Qupna gap [Moles/Vol]10.7 mmol/LNormalUniversity Hospitals Elyria Medical CenterComment on above:Performed By: #### LIPID, BMP #### [facility] [address] [place] [address] Dr. Melchor BrockCalcium [Mass/Vol]7.8 mg/dLCritically low8.4-10.2The [facility] HospitalComment on above:Performed By: #### LIPID, BMP #### [facility] [address] [place] [address] Dr. Melchor BrockChloride [Moles/Vol]103 mmol/TTpnzrh75-774GmhUniversity Hospitals Elyria Medical Center Comment on above:Performed By: #### LIPID, BMP #### [facility] [address] [place] [address] Dr. Melchor BrockCO2 [Moles/Vol]28.4 mmol/QMzvhnn14.0-30.0[facility] Comment on above:Performed By: #### LIPID, BMP #### [facility] [address] [place] [address] Dr. Melchor BrockCreatinine [Mass/Vol]1.05 mg/dLCritically high0.52-1.04The [facility] HospitalComment on above:Performed By: #### LIPID, BMP #### [facility] [address] [address] [address] Melchor LopezGFR-AF EMIRATI>60Normal>=60The [facility] HospitalComment on above:Performed By: #### LIPID, BMP #### [facility] [address] [address] [address] Melchor LopezGFR-NON AF FYLWXONK74 mL/min/1.22p0Sqnvhwswsl low>=60The [facility] HospitalComment on above:Performed By: #### LIPID, BMP #### [facility] [address] [address] [address] Melchor BrockGlucose [Mass/Vol]98 mg/tLIhwjhg93-345Fzn [facility] Comment on above:Performed By: #### LIPID, BMP #### [facility] [address] [address] [address] Melchor BrockPotassium [Moles/Vol]4.1 mmol/LNormal3.4-5.0[facility] Comment on above:Performed By: #### LIPID, BMP #### [facility] [address] [place] [address] Dr. Melchor BrockSodium [Moles/Vol]138 mmol/CEpdavw425-501Kbf [facility] Comment on above:Performed By: #### LIPID, BMP #### [facility] [address] [place] [address] Dr. Melchor BrockUrea nitrogen [Mass/Vol]15.0 mg/dLNormal7.0-17.0The [facility] HospitalComment on above:Performed By: #### LIPID, BMP #### [facility] [address] [place] [address] Dr. Melchor BrockUrea nitrogen/Creatinine [Mass ratio]14.3 mg/mgNormalThe Peoples HospitalComment on above:Performed By: #### LIPID, BMP #### [facility] [address] [place] [address] Dr. Melchor LopezCHOCARDIO M/2D COMPLETEon 11-88-4700RWLGYANUSX M/2D COMPLETE Patient: ISAURA HAYDENLaurie Exam Date: 10/05/2021 : 1950 Gender:F Ordering : DR ANJELICA GAMBINO . Admission #: [id number] Family : Order #: [id number] CLICK HERE TO VIEW EXAM ECHOCARDIOGRAM REPORT [...] Area(A4C): 20.70 cm2 Left Atrium Systolic Volume(A2C): 84280 mm3 Left Atrium Systolic Volume(A4C): 05321 mm3 Mitral Valve MV E to A Ratio: 1.10 Deceleration Parmer: 7410 mm/s2 Mitral Valve A-Wave Peak Velocity: [...] by: Coy Dove M.D. on 10/06/2021 at 08:32[facility] CenterXR DEXA BONE DENSITYon 02-75-4302JR DEXA BONE DENSITYEXAMINATION: XR DEXA BONE DENSITY, 09/18/2021 10:15 AM [...] Moderate fracture risk Electronically authenticated by: KVNG MILIAN Date: 2021-09-18 10:56[facility] Medical CenterDEXA BONE DENSITY AXIAL SKELETONon 62-10-5448CLNS BONE DENSITY AXIAL SKELETONREPORT: DEXA scanTECHNIQUE: Routine bone densitometry of the [...] both femoral necksInterpreted by:ARLEY Valenciaigned by:Lora Mondragon MD09/12/18FUniversity Hospitals Lake West Medical CenterMAM DIGITAL SCREEN BILATERALon 95-45-3022IJV DIGITAL SCREEN BILATERALREPORT: BILATERAL DIGITAL SCREENING MAMMOGRAM WITH ASSISTANCE OF CADINDICATION: ScreeningFINDINGS: Compared to 07/30/2016, 04/17/2015, 04/16/2014, 10/26/2011 and 06/09/2010. The breasts are heterogeneously dense. No suspicious calcifications, mass lesions, architectural distortion or skin thickening.Final report electronically signed by Lora Mondragon on 09/12/2017 5:38 PMIMPRESSION: No mammographic evidence of malignancy. (CATEGORY 1 - ACR BI- RADS: NEGATIVE)Interpreted by:ARLEY Valenciaigned by:Lroa Mondragon MD09/12/[address] [place] [address] Vital Signs Date TimeVital SignValuePerforming BkvioolqmWkwxqqlv94-94-5847 16:08-0400Body dycgoi490.56 [facility] CityarmTr[facility] [id number] 16:08-0400Body mass index (BMI) [Ratio]28.84 kg/r5TqxumltAtrium Health [facility] 24-163001-01209496-86-1783 16:08-0400Body surface area Derived from formula1.85 i1PagbrgxAtrium Health [facility]ville [facility] Hospital 07-09-2025 16:08-0400Body wovssc66.2 kgUnc Health Wayne 94-183783-74681894-01-6008 16:08-0400Diastolic blood zyvouhby95 mm[Hg] Kaitlin Anderson [facility] 07-09-2025 16:08-0400Heart rate68 /minCarlety Villegas [facility] 07-09-2025 16:08-0400Systolic blood lojghdka947 mm[Hg] Kaitlin [facility]Select [facility] 01-07-2025 09:11-0500Body mass index (BMI) [Ratio]29.01 kg/n6Atiun Pippa DO Work Phone: [facility] HospitalQcrslngbgy11-51-2469 09:11-0500Body euuzzx07.66 kgCorey Pippa DO Work Phone: [facility] HospitalThxjofaoam23-79-8754 09:11-0500Diastolic blood fijhgvnr70 mm[Hg]Bentley Pippa DO Work Phone: [facility] HospitalSuyjgkkwzq12-64-7283 09:11-0500Systolic blood pzhopcjc769 mm[Hg]Bentley Pippa DO Work Phone: [facility] HospitalBiqzbccoqw09-71-5660 10:45-0400Body dhedcl440.6 cmCjoan GOMEZ Work Phone: [facility]05-07-2024 10:45-0400Body mass index (BMI) [Ratio]28.65 kg/l5QzhgmshvMary GOMEZ Work Phone: [facility]05-07-2024 10:45-0400Body cldiuefekpn23.81 [degF]Mary GOMEZ Work Phone: [facility]05-07-2024 10:45-0400Body .75 kgConu GOMEZ Work Phone: [facility]05-07-2024 10:45-0400Diastolic blood agrpgkwz96 mm[Hg]Mary GOMEZ Work Phone: [facility]05-07-2024 10:45-0400Heart rate 57 /minCourtney Pennington PA Work Phone: [facility] Pyntvr01-90-8847 10:45-0400 Respiratory rate16 /minCourtney Pennington PA Work Phone: [facility] Vjnbxi74-96-0893 10:45-2948TzE9% (BldA) [Mass fraction]99 %Mary Pennington PA Work Phone: [facility] Qcfnzx40-83-4269 10:45-0400Systolic blood vddwbuis753 mm[Hg]Mary Pennington PA Work Phone: [phone]View[facility] Mhgkdz80-04-7331 10:41-0400Body xuzqqg441.6 cmCourtney Pennington PA Work Phone: [facility] Dqhiip28-49-1286 10:41-0400Body mass index (BMI) [Ratio]28.48 kg/f1Qayxehrl Pennington PA Work Phone: [facility] Ufveop78-34-5900 10:41-0400Body wqfxndubzfs31.81 [degF]Mary Pennington PA Work Phone: [facility] Judhcg14-74-1421 10:41-0400Body gmejto25.3 kgCourtney Pennington PA Work Phone: [facility] Mtqbfs45-45-6766 10:41-0400Diastolic blood ymzakahv11 mm[Hg]Mary Pennington PA Work Phone: [facility]El[facility]04-09-2024 10:41-0400Heart rate 57 /minCourtney Pennington PA Work Phone: [facility]04-09-2024 10:41-0400 Respiratory rate16 /minCourtney Pennington PA Work Phone: [facility] Hivopi89-24-5469 10:41-7787UfK1% (BldA) [Mass fraction]100 %Mary Pennington PA Work Phone: [facility]04-09-2024 10:41-0400Systolic blood qhwpvdsi512 mm[Hg]Mary GOMEZ Work Phone: [facility]03-18-2024 10:32-0400Body nruoxk794.[address]03-18-2024 10:32-0400Body mass index (BMI) [Ratio]28.15 kg/a7Cmkce[address]03-18-2024 10:32-0400Body jubdny45.[address]03-06-2024 14:38-0500Body uxpgbilxlez08.29 [degF]Nabil Lord MD Work Phone: [phone]03-06-2024 14:38-0500Diastolic blood anyiekjc10 mm[Hg]Nabil Lord MD Work Phone: [phone]03-06-2024 14:38-0500Heart rate 67 /minAdafarzana Lord MD Work Phone: [phone]03-06-2024 14:38-1408BcS2% (BldA) [Mass fraction]98 %Nabil Lord MD Work Phone: [facility]03-06-2024 14:38-0500Systolic blood wqdnapiq551 mm[Hg]Nabil Lord MD Work Phone: [phone]03-06-2024 14:35-0500Body mass index (BMI) [Ratio]29.18 kg/m2Nabil Lord MD Work Phone: [phone]03-06-2024 14:35-0500Body .11 kgNabil Lord MD Work Phone: [phone] Encounters Encounter DateEncounter TypeCare ProviderFacilityStart: 31-55-1540poqsogyxdfjenny ChinchillaFacility:[facility] BellevueStart: 07-01-2025 End: 30-69-7823uubzqgrtdvTNQ Matt L SchwabFacility:FTMCStart: 04-15-2025 End: 12-23-4711Sabzdppab Result EncounterCorey Pippa DO Work Phone: noms External Department UnsolicitedStart: 04-15-2025 End: 32-73-5881Tjprilbva Result EncounterCorey Pippa DO Work Phone: noms External Department UnsolicitedStart: 04-12-2025 End: 61-53-9260Kuosssqjj Result EncounterCorey Pippa DO Work Phone: noms External Department UnsolicitedStart: 04-12-2025 End: 81-27-0115Lmahvhzku Result EncounterCorey Pippa DO Work Phone: noms External Department UnsolicitedStart: 02-27-2025 Xavier Santiago Other [facility] OfficeStart: 01-28-2025 End: 72-73-8963osemvdmdfyHrcejn E. RossFacility:[facility] FM BellevueStart: 10-19-2024 End: 38-19-9413Ltt Drop offJodi L Yi [facility] Start: 10-19-2024 End: 52-31-0489drkilypdjlRwlu L SchwabFacility:FTMCStart: 10-05-2024 End: 81-74-4720Xhlbujrsf Result EncounterCorey Pippa DO Work Phone: noms External Department UnsolicitedStart: 10-05-2024 End: 43-92-6329Ikxhqxums Result EncounterCorey Pippa DO Work Phone: noms External Department UnsolicitedStart: 09-17-2024 End: 72-81-5757miedzjtczkFkep L SchwabFacility:[facility] BellevueStart: 09-11-2024 End: 12-15-9580wguxogcngrCtaoe Saw HeckFacility:[facility] HospitalStart: 09-10-2024 End: 75-18-1829rkalaxfelyEktrfg E. RossFacility:[facility] FM BellevueStart: 08-28-2024 End: 52-77-9985Qhzhpd flowsheetCorey Pippa DO Work Phone: noms BCP OBStart: 08-28-2024 End: 94-64-9373Ittgbr flowsheetCorey Pippa DO Work Phone: [facility] BCP OBStart: 08-28-2024 End: 52-39-8470Mwinexc encounter procedureCorey Pippa DO Work Phone: noms BCP OBComment on above:Well woman exam with routine gynecological exam; Breast cancer screening by mammogram; Postmenopausal stateStart: 08-28-2024 End: 89-65-7379rdhtbxcncqFPILM FAZIONot AvailableStart: 08-27-2024 End: 34-36-9844usmhyrowuhEmcuzo E. RossFacility:[facility] BellevueStart: 08-09-2024 End: 83-17-5584Fsq Drop offSafsaneh Chinchilla [facility] Start: 08-09-2024 End: 17-56-3124wnmgontbkrVtmzwe E. RossFacility:FTMCStart: 07-30-2024 End: 79-28-9131thtyocorzcJW Anamaria ChinchillaFacility:[facility] BellevueStart: 07-30-2024 End: 37-06-6879ujpgexxxaxAQ Anamaria ChinchillaFacility:[facility] BellevueStart: 07-13-2024 End: 84-08-3972tikpsarmhqVQYYJJ A LEHMANNFacility:[facility] FM BellevueStart: 05-07-2024 End: 40-73-9386Dsr Drop offSafsaneh Chinchilla [facility] Start: 05-07-2024 End: 62-85-0259wxbpzwgzqiTL Anamaria ChinchillaFacility:[facility] WESTtart: 12-27-2023 End: 80-24-1085wxhjovzwulLGNJHPQCHillcrest Hospitaltart: 12-27-2023 End: 58-25-2896Octknr follow up visit related to original Juvencio Pennington JASON Work Phone: [facility] OncologyComment on above:Encounter for postoperative care (Primary Dx)Start: 11-29-2023 End: 31-38-9043ynacewcyedSTFZTNVPCleveland Clinic Marymount Hospitaltart: 11-29-2023 End: 99-46-3257Xsuxna follow up visit related to original Juvencio Pennington JASON Work Phone: [facility] OncologyComment on above:Encounter for postoperative care (Primary Dx)Start: 11-14-2023 End: 43-62-8975Xfmvcsayeu and management of inpatientPETER MONTRIEProMedica Ballantine HospitalStart: 11-14-2023 End: 62-91-8729Qsqubudaaj and management of inpatientADAM C [facility] HospitalStart: 95-38-8913Eegszjldp for other preprocedural examination NABIL C [facility] HospitalStart: 11-09-2023 End: 79-47-5751xonpzgqieaWMMH C [facility] HospitalStart: 11-07-2023 End: 02-22-2675Pdeexnibbp and management of inpatientKIM E KNIGHTMetroHealth [facility] HospitalStart: 11-07-2023 End: 62-35-4697Vdzhwastl to establishmentMetro Pat Phone Call Provider 2 Nash Vazquez [facility] Hospitaltart: 10-28-2023 Patient encounter statusAdafarzana Lord MD Work Phone: Pro[facility] SystemStart: 49-81-7972Fmcikadlu encounterAdafarzana Lord MD Work Phone: [facility] OncologyStart: 10-26-2023 End: 62-20-7309juylxpcwkvAGAH C WALTERPorter Medical CenterAmanda [facility] HospitalStart: 10-26-2023 End: 56-18-1050Dbpqcj outpatient new 60 minutesAdam Tobi Lord MD Work Phone: [facility] OncologyComment on above:Endometrial thickening on ultrasound (Primary Dx); Postmenopausal bleedingStart: 12-04-3225wzmcvtjenfRUERogue Regional Medical Center Ambulatory PPGStart: 03-98-5450Hmdjvbldj encounterMadison Sury [facility] OncologyStart: 10-17-2023 End: 59-71-4747Hioshcxrh Result EncounterDiane GOMEZ Work Phone: n[facility] External Department UnsolicitedStart: 10-17-2023 End: 37-27-5247Ldpvjjxta Result EncounterDiane GOMEZ Work Phone: n[facility] External Department UnsolicitedStart: 10-11-2023 End: 79-79-9974coofjotnluKEDCH FAZIONot AvailableStart: 09-01-2023 End: 27-72-8615vjcqdooemuEUWWVR A LEHMANNFacility:[facility] BellevueStart: 08-11-2023 End: 55-49-2136tubvmjnjrgAX Samuel E. RossFacility:[facility] BellevueStart: 08-05-2023 End: 61-94-5694Hkyvruuly Result EncounterCorey Pippa DO Work Phone: noms External Department UnsolicitedStart: 08-05-2023 End: 59-00-2210Tqywkahkq Result EncounterCorey Pippa DO Work Phone: noms External Department UnsolicitedStart: 05-11-2023 End: 39-43-6011Hej Drop offMatt Richmond [facility] Start: 08-03-2022 End: 13-24-9569jdjxidiqoyXG KIM E KNIGHTFacility:X0Vngdn: 07-06-2022 End: 89-74-0767gjbwrueuhaGE KIM E KNIGHTFacility:T0Ymlyh: 03-15-2022 End: 60-87-0608txwmklptwwWD KIM E KNIGHTFacility:L8Bnzwg: 02-09-2022 End: 40-45-8500fbkuyleujdBE KIM E KNIGHTFacility:T3Bxmjl: 11-05-2021 End: 39-31-2461gmtxwdfuekTZ KIM E KNIGHTFacility:O4Fxdlq: 10-05-2021 End: 26-25-9962byyixmizgqAM KIM E KNIGHTFacility:X5Slvps: 09-18-2021 End: 54-74-9622tthnxjxdrcPS KIM E KNIGHTFacility:U8Gmhok: 09-08-2021 End: 50-52-5478edaghmofnmWS KIM E KNIGHTFacility:X5Hrtdw: 09-12-2017 End: 05-03-5425ZancorfgzxFTAEESFFulton County Health Center Procedures DateProcedureProcedure DetailPerforming ClinicianStart: 85-27-7006RS TOMOSYNTHESIS SCREENING BICorey Ipppa DO Work Phone: Start: 18-61-3626CPU CALCIUMCorey Pippa DO Work Phone: Start: 21-30-1811JMY CREATININECorey Pippa DO Work Phone: Start: 14-45-4911Lglrv conduction studies 7-8 studies Kaitlin OsborneStart: 52-65-5833ODE CALCIUMCorey Pippa DO Work Phone: Start: 85-69-7948Ukvats-up visitFollow-upCOURTNEY PAYNEStart: 75-88-4784PF MIREYA W/ TRANSNabor GOMEZ Work Phone: Start: 34-23-9873FBW 12-LEADCorey Pippa DO Work Phone: Start: 77-84-4071UuvegbcyxrppJcatsy Ross Start: 42-21-0466Kipfhrulv mammography bi 2-view breast inc cadFARA FORBEStart: 46-09-6502Tsb bone density study 1/> sites axial skelFARA NGOholecystectomyJochantale [employer] Comment on above:bile duct surgeryColonoscopyJoMoment.me Comment on above:2012 normalLaser device (physical object)Matt [employer] Comment on above:eye Plan of Treatment DateCare ActivityDetailAuthorStart: 09-03-2025 End: 46-74-5381Yuakmzr encounter procedureNOMS [facility] OBStart: 51-08-2596boiyinkiku AmbulatoryFacility:FT FM BellevueStart: 55-80-8850Gwzyl BMI ScreeningAdult BMI ScreeningProMedica Health SystemStart: 50-85-3115Oxgzn BMI ScreeningAdult BMI ScreeningProAshtabula General Hospitalca Health SystemStart: 48-34-9517Yjiydpt ScreeningTobacco ScreeningProMedica Health SystemStart: 08-37-7954Lnciu BMI ScreeningAdult BMI ScreeningProAshtabula General Hospitalca Health SystemStart: 10-00-2224Gemgnuj ScreeningTobacco ScreeningProMedica Health SystemStart: 08-28-2024 End: 16-99-7851RTS Skeletal system Views for bone densityDEXA bone density Imaging Routine Postmenopausal state Expected: 08/28/2024 (Approximate), Expires:08/28/2025NOMS HealthcareComment on above:Expected: 08/28/2024 (Approximate), Expires: 08/28/2025Start: 08-28-2024 End: 93-07-1457MT Breast - bilateral ScreeningBilateral screening mammogram Imaging Routine Breast cancer screening by mammogram Expected: 08/28/2024, Expires: 10/26/2025[facility] Work Phone: comment on above:Expected: 08/28/2024, Expires: 10/26/2025Start: 08-28-2024 End: 96-50-9047Rlsgvgc encounter exywiugof82/07/2025 9:00 AM EST Office Visit [facility] [address] [place] [address] Bentley Das, DO [address] [place] [address] ArrivedNOMS [facility] OBComment on above:ArrivedStart: 98-05-9287Vkfmodlen vaccinationInfluenza VaccineAtrium Health Pineville Rehabilitation Hospitaltart: 12-27-2023 End: 56-27-5698Joeadsd encounter khdxiwfcq76/07/2024 11:00 AM EDT Office Visit Lurdesalejandra Salesn [facility] On[facility] [address] [place] [id number] Mary Pennington PA [address] [place], [place] [phone] (Work) [facility] L [facility] - Medical OncologyStart: 11-29-2023 End: 84-98-4064Prjjvsr encounter wgvlkkitk90/09/2024 10:30 AM EDT Office Visit Lurdes Rosado [facility] - Medical Oncology [address] [place] [address], [place] [phone] Mary Pennington PA [address] [place], [place] [phone] (Work) [facility]ur[facility] L [facility] - Medical OncologyStart: 11-14-2023 End: 95-90-0402Tjdzlzwop to same day surgery vqrtwo5811/14/2023 11:00 AM EDT - 11/14/2023 1:00 PM EDT Surgery [facility] Division of [facility] - Surgery [address] [place] [address] Nabil Lord MD [address] [place] [address], [address] [place] [address] DAVINCI HYSTERECTOMY SALPINGO OOPHORECTOMY(WITH FROZEN SECTION AND POSSIBLE STAGING)[facility] HospitalComment on above:DAVINCI HYSTERECTOMY SALPINGO OOPHORECTOMY(WITH FROZEN SECTION AND POSSIBLE STAGING)Start: 11-14-2023 End: 71-91-6853ZGKNMXC HYSTERECTOMY SALPINGO OOPHORECTOMYDAVINCI HYSTERECTOMY SALPINGO OOPHORECTOMY THICKENED ENDOMETRUM/POST MENOPAUSAL BLEEDING/CERVICAL ST ENOSIS 11/14/2023 11:00 AM EDUNC [facility]althtart: 96-47-5999Bodcyyjwsn hospital visit by brqxsggpe97/25/2024 11:00 AM EDT Hospital Encounter [facility] Division [facility] Surgery [address] [place] [address] Nabil Lord MD [address] [place] [address] [place], [place] [id number] [facility]: [facility] End: 42-24-3070Uoskwdega to oijlblcqlloer89/18/2024 10:30 AM EDT Support Visit [facility] On [address] [address]MzbAuwexb [facility] On [facility] Start: 10-28-2023 End: 41-05-6078VF Chest PA and LateralX-ray chest 2 views Imaging Routine Preop testing Expected: 10/28/2023, Expires: 10/27/2024[facility] HospitalComment on above:Expected: 10/28/2023, Expires: 10/27/2024Start: 10-26-2023 End: 53-50-1226Ejwvsma encounter zvxgawbsg70/06/2024 3:00 PM EST Office Visit [facility] [address] [place] [phone] Nabli Lord MD [address] [place] [address], [address] [place], [place] [phone] (Work) [facility] OncologyStart: 48-92-9649Chayinhha vaccinationInfluenza VaccineProMedica Health SystemStart: 70-37-3382Rjrxm BMI ScreeningAdult BMI ScreeningFirelands Regional Medical Center [facility] Campus SystemStart: 18-00-4466Mqfd Risk ScreeningFall Risk ScreeningFirelands Regional Medical Center South Campus SystemStart: 16-33-5579Orkcdwqpsqgbrx of varicella zoster vaccineZoster (Shingles) Vaccine (1 of 2)[facility] SystemStart: 52-72-4965TTnX,Tdap and Td Vaccines (1 - Tdap)DTaP,Tdap and Td Vaccines (1 - Tdap)[facility] SystemStart: 75-34-1344Hubch BMI Follow Up PlanAdult BMI Follow Up PlanFirelands Regional Medical Center South Campus SystemStart: 89-06-8804Klizkckvcm ScreeningDepression ScreeningFirelands Regional Medical Center [facility] Campus SystemStart: 79-14-1321Syyhxyi ScreeningTobacco ScreeningFirelands Regional Medical Center [facility] Campus SystemStart: 1952Medicare Annual Wellness VisitMedicare Annual Wellness VisitCleveland Clinic Marymount Hospital End: 92-98-8451AFS W Auto Differential panel - BloodCBC with auto diff Lab Routine Preop testing 1 Occurrences starting 10/28/2023 until 10/27/2024 [facility] Work Phone: Comment on above:1 Occurrences starting 10/28/2023 until 10/27/2024 End: 37-55-2363Gixfkvrwqvvuq metabolic 2000 panel - Serum or PlasmaComprehensive metabolic panel Lab Routine Preop testing 1 Occurrences starting 10/28/2023 until 10/27/2024[facility] SystemComment on above:1 Occurrences starting 10/28/2023 until 10/27/2024 End: 21-90-5550VBF 12 leadECG 12 lead ECG Routine Preop testing 1 Occurrences starting 10/28/2023 until 10/27/2024[facility] SystemComment on above:1 Occurrences starting 10/28/2023 until 10/27/2024 Immunizations Immunization DateImmunizationNotesCare HomifrerVlnedmtm63-32-7816sqzyvitmnmzf polysaccharide vaccine, 23 Ian Chinchilla [phone]-SyieuFirelands Regional Medical [facility] Campus Medicine [place] 32-67-2464lflzkqhacitf conjugate vaccine, 13 Ian Chinchilla [phone]-MlvmoCincinnati Children'S Hospital Medical Center 83-66-3663tokpawjba A vaccine, adult dosageSamjv Chinchilla [phone]-HacpkCincinnati [facility] 06-81-6909jfdkmfibr A vaccine, adult dosageSamjv Chinchilla 021-0845Tbvwhj-YoqrnCincinnati Children'S Hospital [facility] 97-78-3109dkmngtucq virus vaccine, unspecified formulationLinette Ga RN [facility]11-21-2014influenza, injectable, quadrivalent, preservative freeCorey Pippa DO Work Phone: [facility] HospitalDfdwxnfyrk40-05-5178igcybqlfl virus vaccine, unspecified formulationSamjv Chinchilla [phone]-NvnbgCincinnati Children'S Hospital Medical Center 54-43-2659tkdabmoey, seasonal, injectableCorey Pippa DO Work Phone: [facility] HospitalSqvkzvdxdp99-26-5547efufnwhju virus vaccine, unspecified formulationSamjv Chinchilla [phone]-GkwfeCincinnati Children'S Hospital Medical Center 98-84-3964rmvhbrlku, seasonal, injectableCorey Pippa DO Work Phone: [facility] HospitalTnasnpgohr89-80-5070jovqcnxnr virus vaccine, unspecified formulationSamjv Chinchilla [phone]-CqyvsCincinnati Children'S Hospital Medical Center 58-81-8087qonhvlege, seasonal, injectableCorey Pippa DO Work Phone: [facility] HospitalDqwpyckaum31-73-2734wjpxvyiicpuq polysaccharide vaccine, 23 valentSafsaneh Chinchilla [phone]-KxbwhCincinnati [facility] Hospital [facility] Center NEGATED: Highlighted row has not occurred!34-94-4235mvatckubw virus vaccine, unspecified formulationSamjv Chinchilla [phone]-InomaCincinnati Children'S Hospital Medical Center NEGATED: Highlighted row has not occurred!67-04-0833ptdtpgext virus vaccine, unspecified formulationSafsaneh Chinchilla 911-1740Oajozu-RdvqlCincinnati Children'S Hospital Medical Center NEGATED: Highlighted row has not occurred!42-06-1294LLTP-CoV-2 mRNA (tozinameran 5y-11y) vaccineJochantale Richmond [phone]-XniilCrystal Clinic [facility]opedic [facility] Payers DatePayer CategoryPayerPolicy [id number] (Managed Care)[employer]ARE ADVANTAGE [id number] 2017Medicare [id number] [id number] 1950 [id number] 2..1.561302.3.57[id number] 2.0.1.874899.3.57[id number] 2.0.1.078653.3.57[id number] 2.0.1.683764.3.57[id number] 2.840.1.822191.3.57[id number] 2.16.840.1.268595.3.579.2.[id number] 2.16.840.1.415521.3.579.2.67521-32-0807Wnzkiuy0857232 2.16.840.1.021462.3.579.2.[id number] 2.16.840.1.527652.3.57[id number] 2.16.840.1.845727.3.57[id number] 2.16.840.1.597314.3.57[id number] 2.16.840.1.667714.3.57[id number] 2.16.840.1.057139.3.57[id number] 2.16.840.1.750060.3.57[id number] 2.16.840.1.754980.3.57[id number] 2.16.840.1.366343.3.57[id number] 2.16.840.1.786258.3.57[id number] 2.16.840.1.099605.3.57[id number] 2.16.840.1.009295.3.57[id number] 2.16.840.1.245297.3.57[id number] 2.16.840.1.116338.3.57[id number] 2.16.840.1.327457.3.579.2.[id number] 2.16.840.1.517126.3.57[id number] 2.16.840.1.685522.3.57[id number] 2.16.840.1.662538.3.57[id number] 2.16.840.1.947949.3.57[id number] 2.16.840.1.620004.3.579.2.339269-34-2446Copdvqm706915377 2.16.840.1.381668.3.579.2.03259-64-7252Nvcjefv19361178 2.16.840.1.704460.3.57[id number] 2.16.840.1.992023.3.57[id number] 2.16.840.1.354492.3.579.2.[id number] 2.16.840.1.920751.3.579.2.66865-33-0007Qekbmii74264323 2.16.840.1.867756.3.57[id number] 2.16.840.1.996152.3.579.2.41856-48-4942Ojdafmh63706857 2.16.840.1.587176.3.57[id number] 2.16.840.1.550421.3.57[id number] 2.16.840.1.631129.3.57[id number] 2.16.840.1.441980.3.579.2.76802-11-5262Odtlsve74752939 2.16.840.1.142943.3.579.2.47719-66-7262Qxnyppc07024452 2.16.840.1.472324.3.579.2.[id number] 2.16.840.1.484946.3.579.2.727 Social History DateTypeDetailFacilityStart: 01-31-2023 End: 13-00-3980Rztxllm smoking statusNever smoked tobacco (finding)[facility] BellevueComment on above:deniesdenies use.Start: 11-03-2022 Tobacco smoking statusNeverKettering Health Preble BellevueComment on above:deniesdenies use.Start: 10-02-2020 End: 36-13-5391Ahx Assigned At BirthFeUC Health CenterStart: 07-27-2023 End: 98-45-0214Dwykwkhle beverage intakeCurrent drinker of alcohol (finding) [facility] SystemStart: 07-27-2023 End: 31-28-8376Ftaerkndd beverage intakeProAdams County Hospital SystemStart: 1950 Sex assigned at birthNot on fileProMedica Health SystemHistory of tobacco use Passive smokerProMadison Hospital Qloud SystemStart: 01-12-2018 End: 28-95-6692Xqrzdwj use and exposureSmokeless tobacco non-userNorwalk Memorial Hospital Qloud SystemStart: 11-00-8510Ihb assigned at [facility] Start: 09-97-6013Esozdm identityIdentifies as female gender (finding)[facility] ID.metart: *TobaccoDesign [facility] psychiatric centerAwesomePiece Start: 75-52-2888YgdbzxbMmqammegyReloaded Games, Inc. Clinical Notes 08-05-2022 to 10-19-2024 Note Date & KgwqFwkwCckdxtfb84-12-9788 NoteNurse Consultation Note Assessment/Plan UTI symptoms (R39.9: Unspecified symptoms and [...] Protein Urine Dipstick: Trace (10/19/24 10:07:00) Specific [place] Urine Dipstick: 1.020 (10/19/24 10:07:00) Urine Appearance Urine Dipstick: Slightly cloudy (10/19/24 10:07:00) Urine Color Urine Dipstick: Light yellow (10/19/24 10:07:00) Urobilinogen Urine Dipstick: Normal 0.2-1 EU/dl (10/19/24 10:07:00) pH Urine Dipstick: 7 (10/19/24 10:07:00)[facility]01-07-2025 History of Present illness Narrative* Maryanne Batistaenedina, TEJ - 08/28/2024 9:00 AM EST Reason for Appointment: Patient ID: Isaura Hayden is a 74 y.o. female who presents for Well Women Visit Patient presents today for Annual Exam. MEDICATIONS Current Outpatient Medications Medication Instructions alpha tocopherol (Vitamin E) 1000 units capsule See Instructions, take one daily 400mg, Refills(s) 0 amLODIPine (NORVASC) 5 mg, Daily aspirin 81 mg, Every other day Qgtwvrv-Lwqkurjgfj-Xzwpppd D (VITAMIN D3/CALCIUM/PHOSPHORUS PO) 1 each, Daily Denosumab (PROLIA SC) 1 Units, Every 6 months Durysta 10 mcg, As needed losartan (COZAAR) 100 mg, Daily [place]-3 500 mg rosuvastatin (CRESTOR) 20 mg ALLERGIES Allergies Allergen Reactions Hydromorphone Unknown PROBLEMS Active Ambulatory Problems Diagnosis Date Noted Age-related osteoporosis without current pathological fracture ([facility]) 01/31/2023 Arthritis 12/27/2016 Hypercholesterolemia ([facility]/HCC) 12/27/2016 Hypertension ([facility]/HCC) 01/31/2023 Iron deficiency anemia 12/27/2016 TIA (transient ischemic attack) 01/31/2023 History of colon polyps 02/01/2023 Hyperlipidemia ([facility]/HCC) 02/23/2023 Resolved Ambulatory Problems Diagnosis Date Noted No Resolved Ambulatory Problems Past Medical History: Diagnosis Date Bronchitis Capillary angioma Cataracts, bilateral Chicken pox Family history of cancer Gallstone pancreatitis 2016 Glaucoma ([facility]) Hemorrhoids 2013 High blood pressure ([facility]) High cholesterol ([facility]/HCC) Measles Mumps Osteoporosis ([facility]/HCC) Pneumonia Stress fracture Tonsillitis Tubular adenoma 2013 HISTORY PAST MEDICAL HISTORY SOCIAL HISTORY Past Medical History: Diagnosis Date Arthritis Bronchitis Capillary angioma Cataracts, bilateral Chicken pox Family history of cancer Gallstone pancreatitis 2017 Glaucoma ([facility]) Hemorrhoids 2013 High blood pressure ([facility]) High cholesterol ([facility]) Measles Mumps Osteoporosis ([facility]) Pneumonia Stress fracture Tonsillitis Tubular adenoma 2012 [...] nursing note reviewed. Exam conducted with a head of design present. Vitals: Estimated body mass index is [...] of: Bentley Das DO documented in this encounterSaint John's Saint Francis HospitalZzmeihqsdv17-56-1189 NoteNurse Consultation Note Reason for Visit Here for lab draw [...] inactivated 05/17/2011 Recorded pneumococcal 23-valent vaccine 06/25/2008 RecordedMercy Health [facility] 07-30-2024 NotePatient Education Cardiovascular Hypertension, Adult Hypertension is another name for high blood pressure. High blood pressure forces your heart to workharder to pump blood. This can cause problems [...] at each meal with low-fat (lean) proteins. Low- fat proteins includefish, chicken without skin, eggs, beans, and tofu. [...] Keep all follow-up visits. Medicines ??? Take pdul-frl-rqziktt and prescription medicines only as told by your doctor. Follow directionscarefully. ??? Do not skip doses of blood [...] ??? Hypertension is a (more content not included)...[facility] 07-13-2024 NotePatient Education Infectious Disease Pharyngitis Pharyngitis is a [...] these instructions at home: Medicines ??? Take twkh-eql-ljubnfk and prescription medicines only as told by [...] and water are not available, use hand christian science practitioner. ??? Do not touch your eyes, nose, [...] away. Call your local emergency services (911 [facility] [place] ??? Do not wait to see [...] provider. Document Revised: 11/04/2021 Document Reviewed: 11/04/2021 ElseRkylin Patient Education ? 2023 [employer].[facility] 12-27-2023 History of Present illness Narrative* JASON Zaragoza - 12/27/2023 11:00 AM EDT Subjective: Isaura Hayden female who is 73 [...] 01/12/2018 Performed by Nitesh Littlejohn MD at [facility] DAVINC ROBOTIC ASSISTED HYSTERECTOMY, BILATERAL SALPINGO OOPHORECTOMY, PELVIC [...] - Inability: Never True Received from [facility] Environment Review of Symptoms: Pertinent [...] *This note was completed using a voice photographic equipment mechanic system. Every effort was made to ensure accuracy. However, inadvertent computerized photographic equipment mechanic errors may be present. .Total time spent was 20 minutes: Preparing to see the patient (e.g., review of tests) Performing a medically appropriate examination and/or evaluation Counseling and educating the patient/family/caregiver Documenting clinical information in the electronic or other health record Care coordination (not separately reported) Mary Pennington PA-C, RD, IF JASON Zaragoza 12/27/23 1109 documented in this encounterCleveland Clinic Marymount Hospital04-09-2024 History of Present illness Narrative* JASON Zaragoza - 11/29/2023 10:30 AM EDT Subjective: Isaura Hayden female who is 73 [...] 01/12/2018 Performed by Nitesh Littlejohn MD at [facility] DAVINCI ROBOTIC ASSISTED HYSTERECTOMY, BILATERAL SALPINGO OOPHORECTOMY, PELVIC WASHINGS Bilateral 11/14/2023 Performed by Nabil Lord MD at [facility] SURGERY HEMORROIDECTOMY SKIN BIOPSY Right 2017 [...] *This note was completed using a voice photographic equipment mechanic system. Every effort was made to ensure accuracy. However, inadvertent computerized photographic equipment mechanic errors may be present. .Total time spent was 20 minutes: Preparing to see the patient (e.g., review of tests) Performing a medically appropriate examination and/or evaluation Counseling and educating the patient/family/caregiver Documenting clinical information in the electronic or other health record Care coordination (not separately reported) Mary Pennington PA-C, RD, IF JASNO Zaragoza 11/29/23 1101 documented in this encounterPorter Medical CenterLiveWire Tax03-18-2024 Instructions* Pre- Procedure Instructions - Angelia Kramer RN - 11/07/2023 10:30 AM EDT Your surgery/procedure is scheduled at [facility] on 11/14/2023 at 11 am Arrival Time 9 am [facility] Address: [address] [place] [address], [address] [place] [address] in the Emergency Center Parking lot. Report to the front desk specialist in the Emergency/Surgery Registration lobby of the hospital. Please call Pre-Admission Clinic at [phone] if you have any questions prior to surgery. For questions the morning of surgery, please call the Pre-op Department at [phone]. Notify your SURGEON if you develop any [...] specifically instructed by your surgeon to stop. STOPtaking all herbal products/teas one week prior to [...] would like to schedule therapy at a [facility] Rehab facility, please call [phone] ([phone]). Do not use lotions, creams, powders, perfume, make up, cologne or after-shaves day of surgery. Remove ALL jewelry including wedding rings, body piercings, hair extensions that contain metal, nail ghanaian, make-up, and contact lens. You may brush your teeth the morning of surgery, but do not swallow the water. Wear your dentures and partial plates to the hospital (no adhesive). Shower the night the before. If applicable, use the CHG (chlorhexidine gluconate) soap or wipes. Please be advised, [facility] has transitioned to a cashless payment system. What should I bring to the hospital? If you received a green plastic bracelet, bring it with you the day of surgery and your nurse will put it on you. Eyeglass or contact lens case If you will be spending the night, please bring personal care items and leave them in the car untilyou are taken to your room after surgery. [...] following some types of surgeries involving the eyes,ears, sinuses and throat. Always follow your doctor's [...] RIGHTS AND RESPONSIBILITIES As a patient at [facility], you have the right to: Receive medical care and be informed of who is taking care of you Be treated with dignity and respect Have a family member/merchandising representative of choice and your physician notified of your admission Receive information and actively participate in decisions about your care and treatment Refuse care, treatment and services Decide who may provide your support and speak for you Access hoahaoism and spiritual services Participate in ethical issues [...] of hospital charges and payment methods Patient/patient merchandising representative responsibilities are to: Provide information about health status to facilitate care, treatment and services Follow the treatment, plan, keep appointments and speak up when you do not understand the plan Respect the rights of other patients and healthcare personnel Follow organizational rules and regulations that support quality care and a safe environment Fulfill financial obligations as promptly as possible [facility]03-18-2024 Miscellaneous Notes* Perioperative Nursing Note - Angelia Kramer RN - 11/07/2023 10:30 AM EDT Pt is going to [facility] on 11/09/2023 to havre EKG, CXR and labs. * Pre-Procedure Instructions - Angelia Kramer RN - 11/07/2023 10:30 AM EDT Your surgery/procedure is scheduled at [facility] on 11/14/2023 at 11 am Arrival Time 9 am [facility] Address: [address] [place] [address], [address] [place] [address] in the Emergency Center Parking lot. Report to the front desk specialist in the Emergency/Surgery Registration lobby of the hospital. Please call Pre-Admission Clinic at [phone] if you have any questions prior to surgery. For questions the morning of surgery, please call the Pre-op Department at [phone]. Notify your SURGEON if you develop any [...] specifically instructed by your surgeon to stop. STOPtaking all herbal products/teas one week prior to [...] would like to schedule therapy at a [facility] facility, please call [phone] ([phone]). Do not use lotions, creams, powders, perfume, make up, cologne or after-shaves day of surgery. Remove ALL jewelry including wedding rings, body piercings, hair extensions that contain metal, nail ghanaian, make-up, and contact lens. You may brush your teeth the morning of surgery, but do not swallow the water. Wear your dentures and partial plates to the hospital (no adhesive). Shower the night the before. If applicable, use the CHG (chlorhexidine gluconate) soap or wipes. Please be advised, [facility] has transitioned to a cashless payment system. What should I bring to the hospital? If you received a green plastic bracelet, bring it with you the day of surgery and your nurse will put it on you. Eyeglass or contact lens case If you will be spending the night, please bring personal care items and leave them in the car untilyou are taken to your room after surgery. [...] following some types of surgeries involving the eyes,ears, sinuses and throat. Always follow your doctor's [...] RIGHTS AND RESPONSIBILITIES As a patient at [facility], you have the right to: Receive medical care and be informed of who is taking care of you Be treated with dignity and respect Have a family member/merchandising representative of choice and your physician notified of your admission Receive information and actively participate in decisions about your care and treatment Refuse care, treatment and services Decide who may provide your support and speak for you Access hoahaoism and spiritual services Participate in ethical issues [...] of hospital charges and payment methods Patient/patient merchandising representative responsibilities are to: Provide information about health status to facilitate care, treatment and services Follow the treatment, plan, keep appointments and speak up when you do not understand the plan Respect the rights of other patients and healthcare personnel Follow organizational rules and regulations that support quality care and a safe environment Fulfill financial obligations as promptly as possible documented in this encounterCleveland Clinic Marymount Hospital03-18-2024 Nurse Note* Perioperative Nursing Note - Angelia Kramer RN - 11/07/2023 10:30 AM EDT Pt is going to [facility] on 11/09/2023 to havre EKG, CXR and labs. [facility]03-08-2024 Miscellaneous Notes* Telephone Encounter - Raj Nuñezsteven - 10/28/2023 11:19 AM EST Spoke with Mee 3 and 10/27 to confirm surgery plan. Patient is scheduled at [facility] with Dr Lord on 11/14/23. She knows to arrive at 9:00a for 11:00a surgery. Patient knows to call [phone] to locate closest [facility] facility in order to complete PAT testing. She has phone call PAT scheduled for 11/07/23. She will follow up with Mary in [place] on 11/29/23 at 10:30a. documented in this encounterC[facility] Telephone encounter Note* Telephone Encounter - Raj Nuñezsteven - 10/28/2023 11:19 AM EST Spoke with Mee 10/26 and 10/27 to confirm surgery plan. Patient is scheduled at [facility] with Dr Lord on 11/14/23. She knows to arrive at 9:00a for 11:00a surgery. Patient knows to call [phone] to locate closest [facility] facility in order to complete PAT testing. She has phone call PAT scheduled for 11/07/23. She will follow up with Mary in [place] on 11/29/23 at 10:30a. [facility]03-06[facility] History of Present illness Narrative* Nabil Lord MD - 10/26/2023 3:00 PM EST Subjective: Isaura is a 73 y.o. female [...] personal or family history of GI or tax processor malignancies. Oncology History No overview note Isaura [...] 01/12/2018 Performed by Nitesh Littlejohn MD at [facility] HEMORROIDECTOMY TONSILLECTOMY Past Medical History: Diagnosis [...] JVD, supple, symmetrical, trachea midline and thyroid notenlarged, symmetric, no tenderness/mass/nodules Lungs: clear to auscultation [...] pneumonia, myocardial infarction, stroke and even . Thepatient understands the risks and elects to proceed. 4. Total time spent was 63 minutes: Preparing to see the patient (e.g., review of tests) Obtaining and/or reviewing separately obtained history Performing a medically appropriate examination and/or evaluation Counseling and educating the patient/family/caregiver Ordering medications, tests, or procedures Referring and communicating with other health foster care case manager (not separately reported) Documenting clinical information in the electronic or other health record Independently interpreting results (not separately reported) and communicating results to the patient/family/caregiver Nabil Lord MD documented in this encounterCleveland Clinic [facility]02-28-2024 Miscellaneous Notes* Telephone Encounter - Linette Ga RN - 10/19/2023 10:05 AM EST Left VM to schedule DELIVERY RN appt with tax processor onc, call back # provided. Requested images from pelvic US be pushed via PACS from [email or web address]. documented in this encounterCleveland Clinic [facility]02-28-2024 Telephone encounter Note* Telephone Encounter - Linette Ga RN - 10/19/2023 10:05 AM EST Left VM to schedule DELIVERY RN appt with tax processor onc, call back # provided. Requested images from pelvic US be pushed via PACS from [email or web address]. [facility] NoteProcedures Choosing a Surgeon When you need to have surgery, choosing the right surgeon is very important. With any surgery, serious complications can occur. You will want to choose a surgeon who performs well and has low complication rates. To become a surgeon, a health care provider must go through years of additional training. Even moretraining may be required if a surgeon wants [...] a surgeon: ? Is certified by the [place] [employer]. To be board certified, a surgeon must go through an approved residency training program and pass a comprehensive exam. You can check your surgeon's board certification at www.abms.org/verify-certification/ ? Has had any problems with state licensing authorities. You can check whether a surgeon has had malpractice claims or other professional problems by going to your state medical board at www.fsmb.org/rzfjyof-t-eavie-medical-board/ ? Has good ratings from other patients and providers. You may be able to get a consumer rating on your surgeon at www.checkbook.org/surgeonratings/ Step 3: Research the hospital or clinic ? Ask where the surgeon does surgery and find out about the hospital or outpatient clinic where theprocedure will be done. ? Call the facility to ask about their accreditation. ? Make sure a hospital is accredited by the Joint Commission. ? Make sure an outpatient surgery center is accredited by the Joint Commission or the AccreditationAssociation for [facility]. Step 4: Meet with the [...] you are considering is certified by the [place] [employer]. ? Meet with [...] provider. Document Revised: 10/19/2021 Document Reviewed: 10/19/2021 ElseRkyl[employer] Patient Education ? 2022 [employer].[facility] 08-05-2022 NotePROCEDURE: XR FOOT LT MIN 3 VIEWS HISTORY: Pain in left [...] pain in this area. Electronically authenticated by: LAAN CÁRDENAS Date: 2022-08-04 22:03[facility] Future Appointments Appointment Date:05/30/2023 02:00:00 PM Scheduled Provider: Location:[facility] Appointment Type: Medicare Wellness Subsequent Appointment Date:05/30/2023 02:40:00 PM Scheduled Provider:Anamaria Chinchilla MD Location:[facility] Appointment Type: Open Diagnostic Tests Pending * Urine Culture [facility] Future Appointments Appointment Date:07/30/2024 10:30:00 AM Scheduled Provider:Anamaria Chinchilla MD Location:[facility] Appointment Type:FM Open Appointment Date:07/30/2024 11:00:00 AM Scheduled Provider: Location:[facility] Appointment Type:FM Medicare Wellness Subsequent Diagnostic Tests Pending * Urine Culture 05/07/24 [facility] + Plan note Future Appointments Appointment Date:01/28/2025 08:45:00 AM Scheduled Provider:Anamaria Chinchilla MD Location:[facility] Appointment Type:FM Open Appointment Date:08/01/2025 11:00:00 AM Scheduled Provider: Location:[facility] Appointment Type:FM Medicare Wellness Subsequent [facility] evaluation + Plan note Future Appointments Appointment Date:01/28/2025 08:45:00 AM Scheduled Provider:Anamaria Chinchilla MD Location:[facility] Appointment Type:FM Open Appointment Date:08/01/2025 11:00:00 AM Scheduled Provider: Location:[facility] Appointment Type: Medicare Wellness Subsequent Diagnostic Tests Pending * Urine Culture 10/19/24 [facility] evaluation note* Diagnosis Well woman exam with routine gynecological exam Routine gynecological examination Breast cancer screening by mammogram Postmenopausal state Asymptomatic postmenopausal status (age-related) (natural) documented in this encounter [facility] HealthcareEvaluation note* Diagnosis Encounter for postoperative care- Primary documented in this [facility] Diagnosis Endometrial thickening on ultrasound- Primary Postmenopausal bleeding documented in this [facility]* Diagnosis Preop testing- Primary Unspecified pre-operative examination documented in this encounter [facility]* Diagnosis Encounter for postoperative care- Primary [facility] Narrative No data available for this section [facility] No data available for this section [facility] HospitalInstructionsNot on filedocumented in this encounter [facility]Not on filedocumented in this encounter [facility] System[facility]ructionsNot on filedocumented in this encounter [facility] System[facility]ructionsNot on filedocumented in this encounter [facility] SystemInstructionsNot on filedocumented in this encounter [facility]ructionsNot on filedocumented in this encounter [facility] SystemProgress note No data available for this section [facility] Summary Purpose Family History No Family [...] Advanced Directives Records Found Reason for Referral SpecialtyDiagnoses / ProceduresReferred By ContactReferred To Contact Diagnoses Preop testing Procedures ECG 12 lead Nabil Lord MD [address] [place] [address], [place] [address] Referral IDStatusReasonStart DateExpiration DateVisits RequestedVisits [id number] Review Additional Source Comments INFORMATION SOURCE (unrecogn ized section and content) DATE CREATED AUTHOR 02/13/2018 [facility] DATE CREATED AUTHOR AUTHOR'S ORGANIZ ATION 08/12/2022 [facility] DATE CREATED AUTHOR AUTHOR'S ORGANIZ ATION 10/27/2023 [facility] DATE CREATED AUTHOR AUTHOR'S ORGANIZ ATION 10/28/2023 [facility] DATE CREATED AUTHOR AUTHOR'S ORGANIZ ATION 11/18/2023 [facility] DATE CREATED AUTHOR AUTHOR'S ORGANIZ ATION 12/28/2023 [facility] DATE CREATED AUTHOR AUTHOR'S ORGANIZ ATION 05/15/2024 [facility] DATE CREATED AUTHOR AUTHOR'S ORGANIZ ATION 08/10/2024 [facility] DATE CREATED AUTHOR AUTHOR'S ORGANIZ ATION 08/13/2024 [facility] DATE CREATED AUTHOR AUTHOR'S ORGANIZ ATION 09/03/2024 [facility] DATE CREATED AUTHOR AUTHOR'S ORGANIZ ATION 09/13/2024 [facility] DATE CREATED AUTHOR AUTHOR'S ORGANIZ ATION 10/21/2024 [facility] DATE CREATED AUTHOR AUTHOR'S ORGANIZ ATION 10/22/2024 [facility] DATE CREATED AUTHOR AUTHOR'S ORGANIZ ATION 05/30/2025 [facility] DATE CREATED AUTHOR AUTHOR'S ORGANIZ ATION 07/03/2025 [facility] DATE CREATED AUTHOR AUTHOR'S ORGANIZ ATION 07/04/2025 [facility] Patient Care team informatio n (unrecognized section and content) Team MemberRelationshipSpecialtyStart DateEnd Date Anjelica Gambino MD [address] [place] [address] PCP - GeneralFamily Medicine01/27/23Team MemberRelationshipSpecialtyStart DateEnd Date Anjelica Gambino MD [address] [facility] [place] [address] PCP - GeneralFamily Medicine01/27/23Team MemberRelationshipSpecialtyStart DateEnd Date Anamaria Chinchilla MD [address] [facility] [place], [place] [phone] PCP - GeneralFamily Medicine3/18/24Team MemberRelationshipSpecialtyStart DateEnd Date Anjelica Gambino MD [address] [place] [address] PCP - GeneralFamily Medicine12/24/16Team MemberRelationshipSpecialtyStart DateEnd Date Anjelica Gambino MD [address] [place] [address] PCP - GeneralFamily Medicine12/24/16Team MemberRelationshipSpecialtyStart DateEnd Date Anjeliac Gambino MD [address] [place] [address] PCP - GeneralFamily Medicine12/24/16Team MemberRelationshipSpecialtyStart DateEnd Date Anamaria Chinchilla MD [address] [place] [address] PCP - GeneralFamily Medicine11/07/23Team MemberRelationshipSpecialtyStart DateEnd Date Anjelica Gambino MD [address] [place] [address] PCP - GeneralFamily Medicine01/27/23Team MemberRelationshipSpecialtyStart DateEnd Date Anjelica Gambino MD [address] [place] [address] PCP - GeneralFamily Medicine01/27/23Team MemberRelationshipSpecialtyStart DateEnd Date Anjelica Gambino MD [address] [place] [address] PCP - GeneralFamily Medicine01/27/23 Reason for Visit (unrecogniz ed section and content) ReasonCommentsWell Women VisitReasonCommentsFollow-up FOR RECORDS PERTAINING TO PATIENTS WHO ARE [...] PRIMARY CLINICAL RECORDS. [facility] [facility]. provides no warranty or guarantee of the accuracy or completeness of information in this document.
--- OUTSIDE RECORDS SUMMARY | 2025-07-07 10:54 | XMS_ITS | Clinical Summary ---
Author Organization [facility] Address [address] [place] [address] Care Team Providers Care String Laster Name Role Phone Francia Gambino MD Primary Care Provider [phone] Allergies Active AllergyReactionsCriticalityNoted DateCommentsHydromorphoneUnknown 01/28/2023 Medications MedicationSigDispense QuantityRefillsLast FilledStart DateEnd DateStatus Krill Oil ([place]-3) 500 MG capsule Take 500 mg by mouth.12/01/2022ctive alpha tocopherol (Vitamin E) 1000 units capsule See Instructions, take one daily 400mg, Refills(s) ctive rosuvastatin (Crestor) 20 MG tablet Take 20 mg by mouth.12/01/2022ctive aspirin 81 MG EC tablet Take 81 mg by mouth every other day.Active Tnfbcar-Mhmscjnteq-Mmbeics D (VITAMIN D3/CALCIUM/PHOSPHORUS PO) Take 1 each by mouth in the morning.Active amLODIPine (Norvasc) 5 MG tablet Take 5 mg by mouth in the morning.06/01/2023ctive losartan (Cozaar) 100 MG tablet Take 100 mg by mouth in the morning.05/30/2023ctive Bimatoprost (Durysta) 10 MCG implant Inject 10 mcg into the eye if needed ( NEEDED)Active Denosumab (PROLIA SC) Inject 1 Units under the skin every 6 (six) pkqjpq3607/30/2024ctive Active Problems ProblemNoted DateDiagnosed JidbIeipwlulmwicta78/05/2023History of colon polyps 02/01/2023ge-related osteoporosis without current pathological fracture 01/31/20238639Rnuthxifhowv90/12/2023TIA (transient ischemic attack)01/31/2023 Jlniwjzlk73/08/3824Aoecijcbzcyxuvyjagoz35/08/2017Iron deficiency anemia 12/27/2016 Encounters DateTypeDepartmentCare DubaAzqeymwavra65/25/2025Clinisync Result Encounter [facility] Unsolicited Bentley Das DO 5Clinisync Result Encounter [facility] Unsolicited Bentley Das DO from Last 3 Months Immunizations ImmunizationAdministration DatesNext DueHep A, Adult11/08/2016,05/05/2016 Influenza, injectable, quadrivalent, preservative free07/12/2014Influenza, seasonal, bbvwhyhrge56/15/2013,05/18/2012,05/17/2011Pneumococcal Conjugate PCV 13109/20/2017Pneumococcal Polysaccharide MYZJ319809/24/2018,06/25/2008 Family History Medical HistoryRelationNameCommentsColon cancerBrotherBrain cancerFatherDiabetes FatherHeart diseaseFatherLung cancerFatherKidney diseaseMotherbladder cancer MotherCancerPaternal GrandmotherCancerSiblingDiabetesSiblingHeart diseaseSibling MelanomaNeg HxRelationNameStatusCommentsBrotherFatherDeceasedMotherDeceased Paternal GrandmotherSibling Social History Tobacco UseTypesPacks/DayYears UsedDateSmoking Tobacco: Never Tobacco Cessation:Counseling Given: Not Answered Alcohol UseStandard Drinks/WeekCommentsYes1 (1 standard drink = 0.6 oz pure alcohol)CommentsNoSex and Gender InformationValueDate RecordedSex Assigned at BirthNot on fileLegal WkkOmhlwn59/15/2023 7:02 PM EDTGender Identity Not on fileSexual OrientationNot on file Last Filed Vital Signs Vital SignReadingTime TakenCommentsBlood Ykalsvnb365/70008/28/2024 9:11 AM EST Pulse--Temperature--Respiratory Rate--Oxygen Saturation--Inhaled Oxygen Concentration--Dysopw80.7 kg (169 lb)08/28/2024 9:11 AM FLWCtdfrw289.6 cm (5' 4 )05/25/2023 1:07 PM EDTBody Mass Index29.011 1:07 PM EDT Plan of Treatment DateTypeDepartmentCare Team (Latest Contact Info)Rxanzkaobaw56/13/2026 10:00 AM ESTOffice Visit [facility] [address] [place] [address] Bentley Das, DO [address] [place] [address] Procedures Procedure NamePriorityDate/TimeAssociated DiagnosisCommentsMM TOMOSYNTHESIS SCREENING BI04/15/2025 10:18 AM EDT [facility] QKLEQFBIpguzlx37/22/2025 9:47 AM EDT [facility] ZQSFYXWVASIowdiux20/22/2025 9:47 AM EDT from Last 3 Months Results * MM TOMOSYNTHESIS SCREENING (04/15/2025 10:18 AM EDT)Anatomical Region LateralityModalityOtherSpecimen (Source)Anatomical Location / Laterality Collection Method / VolumeCollection TimeReceived Time04/15/2025 10:18 AM EDT Narrative 04/15/2025 10:19 AM EDT [facility] ?[address] ? [place] [address] ? Mammography Report ? Signed ? Patient: MIGUEL,ISAURA L ?MR#: [id number] ?? : 1950 ?Acct:[id number] ?? Age/Sex: 74 / F ?ADM Date: 04/15/25 ?? Loc: MAMMO ? Attending Dr: Bentley Das D.O. ? Ordering Physician: Bentley Das D.O. ?Results: ? Date of Service: 04/15/25 ?Follow Up: ? Procedure(s): MM tomosynthesis screening BI ?? Accession Number(s): [id number] ? cc: Bentley Das D.O.; MATT RICHMOND ? Patient Name: ? ISAURA RIVERA ? MR#: [id number] ? : 1950 ? Exam Date: 04/15/2025 ?? Ordering Doctor: DR BENTLEY DAS . ? RADIOLOGY REPORT ? PROCEDURE: ? MM TOMOSYNTHESIS SCREENING BI ? COMPARISON: ? MM TOMOSYNTHESIS SCREENING BI, 04/09/2024. ??MM TOMOSYNTHESIS ?? SCREENING BI, 04/04/2023. ??MG MAMM SCREEN 3D SARAHI CAD, 03/15/2022. ??MG MAMM ?? SCREEN SARAHI W CAD, 09/12/2017. ? INDICATIONS: ? Screening ? Calculator Name ? NCI Breast Cancer Risk Assessment Tool ?? 5 Year Breast Cancer Risk ? 1.40% ?? Lifetime Breast Cancer Risk ? 3.80% ?? Personal Breast Cancer ?No ?? Personal Ovarian Cancer ? No ?? Treatments ? None ?? Family Cancers ? Aunt-maternal with breast cancer at age 70; Father with ?? lung cancer at age 70. ? LOCATION: ? [facility] ? BREAST COMPOSITION: ? There are scattered areas of fibroglandular density. ? FINDINGS: ? DIAGNOSTIC CATEGORY 1--NEGATIVE. ? RIGHT BREAST: ??No significant suspicious finding. ? LEFT BREAST: ??No significant suspicious finding. ? RECOMMENDATIONS: ? ROUTINE MAMMOGRAM AND CLINICAL EVALUATION IN 12 MONTHS. ? Dictated by: Damir Drake DO on 04/15/2025 at 10:17 ? Approved by: Damir Drake DO on 04/15/2025 at 10:18 ? Dictated By: ?Damir Drake M.D. ? Signed By: ?08/25/25 1019 ? DD/ 1018 ? TD/TT: ? Patrol Lady: Procedure Note Radiology, Radiologist, MD - 04/15/2025 [place] [address] Mammography Report Signed Patient: ISAURA RIVERA LMR#: [id number] : 1950cct:[id number] Age/Sex: 74 / FADM Date: 04/15/25 Loc: MAMMO Attending Dr: Bentley Das D.O. Ordering Physician: Bentley Das D.O.Results: Date of Service: 04/15/25Follow Up: Procedure(s): MM tomosynthesis screening BI Accession Number(s): [id number] cc: Bentley Das D.O.; MATT RICHMOND Patient Name: ISAURA RIVERA MR#: [id number] : 1950 Exam Date: 04/15/2025 Ordering Doctor: DR BNETLEY DAS . RADIOLOGY REPORT PROCEDURE: MM TOMOSYNTHESIS SCREENING BI COMPARISON: MM TOMOSYNTHESIS SCREENING BI, 04/09/2024. MMTOMOSYNTHESIS SCREENING BI, 04/04/2023. MG MAMM SCREEN 3D [...] lung cancer at age 72. LOCATION: [facility] BREAST COMPOSITION: There are scattered areas of fibroglandulardensity. FINDINGS: DIAGNOSTIC CATEGORY 1--NEGATIVE. RIGHT BREAST: No significant suspicious finding. LEFT BREAST: No significant suspicious finding. RECOMMENDATIONS: ROUTINE MAMMOGRAM AND CLINICAL EVALUATION IN 12 MONTHS. Dictated by: Damir Drake DO on 04/15/2025 at 10:17 Approved by: Damir Drake DO on 04/15/2025 at 10:18 Dictated By: Damir Drake M.D. Signed By:04/15/25 1019 DD/ 1018 TD/TT: Patrol Lady: Authorizing ProviderResult TypeResult StatusCorey Pippa DOCLINISYNC IMAGINGFinal Result * (ABNORMAL) [facility] CREATININE (04/12/2025 9:47 AM EDT)ComponentValueRef RangeTest MethodAnalysis TimePerformed AtPathologist SignatureCREATININE1.28(H)0.55 - 1.02 mg/dLTBHTBH EGFR-AF WWLCRBGA48(L)>=60 mL/min/1.73m 2TBHTBH EGFR-NON AF QJQBYWUA55(L)>=60 mL/min/1.73m 2TBHSpecimen (Source)Anatomical Location / LateralityCollection Method / VolumeCollection TimeReceived Time04/12/2025 9:47 AM EDT04/12/2025 9:48 AM EDT Narrative CLINISYNC - 04/12/2025 10:02 AM EDT Authorizing ProviderResult TypeResult StatusCorey Pippa DOCLINISYNCFinal Result Performing OrganizationAddressCity/State/ZIP CodePhone Number CLINISYNC [facility] * [facility] CALCIUM (04/12/2025 9:47 AM EDT)ComponentValueRef RangeTest MethodAnalysis TimePerformed AtPathologist SignatureCALCIUM9.18.5 - 10.1 mg/dLTBHSpecimen (Source)Anatomical Location / LateralityCollection Method / VolumeCollection TimeReceived Time04/12/2025 9:47 AM EDT04/12/2025 9:48 AM EDT Narrative [facility]IN[facility]NC - 04/12/2025 10:02 AM EDT Authorizing ProviderResult TypeResult StatusCorey Pippa DOCLINISYNCFinal Result Performing OrganizationAddressCity/State/ZIP CodePhone Number CLINISYNC [facility] from Last 3 Months Insurance Care Teams Team MemberRelationshipSpecialtyStart DateEnd Francia Gambino MD [address] [place] [phone] PCP - GeneralFamily Medicine01/27/23
--- OUTSIDE RECORDS SUMMARY | 2025-07-07 10:54 | XMS_ITS | Clinical Summary ---
Author Organization [facility] Address [id number] [address] [place] [address] Care Team Providers Care Subcontract Administrator Name Role Phone Job Alvarado MD Primary Care Provider [phone] Allergies Active AllergyReactionsCriticalityNoted DateCommentsHydromorphoneConfusion, GrmsruhfxqbkcvClh74/18/2024 Medications MedicationSigDispense QuantityRefillsLast FilledStart DateEnd DateStatus psyllium (METAMUCIL) 3.4 gram packet Indications:constipationTake 1 packet (3.4 g total) by mouth in the morning. Indications: constipation.Active glucosamine HCl/chondroitin jennings (GLUCOSAMINE-CHONDROITIN ORAL) Take 1 tablet by mouth in the morning. joints.Active rosuvastatin (CRESTOR) 20 mg tablet Take 1 tablet (20 mg total) by mouth Daily before evening meal. cholesterol Active amLODIPine (NORVASC) 5 mg tablet Indications:hypertensionTake 1 tablet (5 mg total) by mouth Daily before evening meal Indications: high blood pressure.Active aspirin 81 mg chewable tablet Chew 1 tablet (81 mg total) and swallow every other day. Heart healthActive vitamin E, dl,tocopheryl acet, (vitamin E, dl, acetate,) 180 mg (400 unit) capsule Take 1 capsule (400 Units total) by mouth Daily before evening meal.Active OMEGA-3 ACID ETHYL ESTERS ORAL Take 500 mg by mouth nightly. supplementActive cholecalciferol, vitamin D3, 25 mcg (1,000 unit) capsule Indications:prevention of vitamin D deficiencyTake 1 capsule (1,000 Units total) by mouth in the morning. Indications: prevention of vitamin D deficiency. With calcium.Active denosumab (PROLIA SUBQ) Inject under the skin every 6 (six) months. Last dose bimatoprost (LATISSE) 0.03 % ophthalmic solution Administer 1 drop to both eyes nightly. Place 1 drop on applicator and apply along skin of upper eyelid at base of eyelashes daily at bedtime; rpt for 2nd eye with clean applicatorActive docusate sodium (COLACE) 100 mg capsule Indications:constipationTake 2 capsules (200 mg total) by mouth Daily before evening meal Indications: constipation.Active losartan (COZAAR) 100 mg tablet Indications:hypertensionTake 1 tablet (100 mg total) by mouth in the morning. Indications: high blood pressure.Active sennosides-docusate sodium (SENOKOT-S) 8.6-50 mg Take 1 tablet by mouth in the morning. 60 tablet 11/14/2023ctive Active Problems ProblemNoted DateDiagnosed MpirBkbnjhttqibrkedwvicj11/08/5006Ruvzaoism54/08/2017 Iron deficiency jhweuz7112/27/2016 Resolved Problems ProblemNoted DateDiagnosed DateResolved DateEndometrial thickening on ultrasound /ostmenopausal oihicwtr10/03/2024 Family History Medical HistoryRelationNameCommentsCancerBrotherDiabetesBrotherHeart disease BrotherKidney diseaseBrotherArthritisFatherCancerFatherDiabetesFatherHeart diseaseFatherHearing lossMaternal AuntAlcohol abuseMaternal GrandfatherHearing lossMaternal GrandfatherCancerMotherHyperlipidemiaMotherKidney diseaseMother CancerPaternal AuntColon cancerPaternal GrandmotherAsthmaSonAnesthesia problems Neg HxBirth defectsNeg HxCOPDNeg HxDepressionNeg HxDrug abuseNeg HxHypertension Neg HxLearning disabilitiesNeg HxLiver cancerNeg HxLiver diseaseNeg HxMental illnessNeg HxMental retardationNeg HxMiscarriages / StillbirthsNeg HxStomach cancerNeg HxStrokeNeg HxVision lossNeg HxRelationNameStatusCommentsBrotherAlive FatherDeceasedMaternal AuntMaternal GrandfatherMotherDeceasedPaternal Aunt Paternal GrandmotherSonAlive Social History Tobacco UseTypesPacks/DayYears UsedDateSmoking Tobacco: NeverPassive Smoke Exposure: PastSmokeless Tobacco: Never Tobacco Cessation:Counseling Given: Not Answered Alcohol UseStandard Drinks/WeekCommentsYes7 (1 standard drink = 0.6 oz pure alcohol)ChildcareAnswerDate NjwqxorsZbqprvdaxMwtqphl05/12/2019EmploymentAnswer Date PcxyhhbnBoexmbwszcHxmogde85/12/2019Hunger ScreeningAnswerDate Recorded Within the past 12 months we worried whether our food would run out before we got money to buy more.Never True11/07/2023Within the past 12 months the food we bought just didn't last and we didn't have money to get more.Never True 4Purpose - LifeAnswerDate RecordedPurpose and direction in lifeUnknown 1CommentsNoSex and Gender InformationValueDate RecordedSex Assigned at YbahsBhbake22/04/2024 9:16 AM ESTLegal ZnjKcysnr02/06/2015 12:11 PM EDTGender VeghzcfnDdvblr69/04/2024 9:16 AM ESTSexual OrientationNot on file Last Filed Vital Signs Vital SignReadingTime TakenCommentsBlood Cdtianin400/7105 10:45 AM EDT Ivefz687212/27/2023 10:45 AM AOLRmlbmbsbycg30.6 ??C (97.8 ??F)12/27/2023 10:45 AM EDTRespiratory Ztbm358112/27/2023 10:45 AM EDTOxygen Brhctbwusx83%12/27/2023 10:45 AM EDTInhaled Oxygen Concentration--Fljjsi14.8 kg (167 lb)12/27/2023 10:45 AM DNHGrtjiv688.6 cm (5' 4.02 )12/27/2023 10:45 AM EDTBody Mass Index28.65 12/27/2023 10:45 AM EDT Plan of Treatment Health MaintenanceDue DateLast DoneCommentsDepression Xexrqtaej98/21/1964 DTaP,Tdap and Td Vaccines (1 - Tdap)1971Zoster (Shingles) Vaccine (1 of 2) 2002Fall Risk Pxeichejd30/21/2017Tobacco Megtdrele05/25/632087/ Adult BMI Afyqqrjzq03/02/2024Influenza Ytvqtnh07, 06/05/2013, 05/18/2012, Additional history existsRSV ( or age 60+ yrs) (1 - 1-dose 75+ series)2027 Medical Devices Not on file Insurance * Guarantor: Isaura Rivera TypeRelation to PatientDate of PhoneBilling AddressPersonal/RrrjjjXtlk1950 [address] [address] Care Teams Team MemberRelationshipSpecialtyStart DateEnd Date Job Alvarado MD [address] [place] [address] PCP - GeneralFamily Medicine11/07/23
--- OUTSIDE RECORDS SUMMARY | 2025-07-07 10:54 | XMS_ITS | Clinical Summary ---
Author Organization [facility] Address [address] [address] Care Team Providers Care Corporate Coordinator Name Role Phone Unavailable Primary Care Provider Unavailabl e Social History Tobacco UseTypesPacks/DayYears UsedDateSmoking Tobacco: Never AssessedUT Safety & EnvironmentAnswerDate RecordedFear of Current or Ex-PartnerNot on file 10/13/2023Emotionally AbusedNot on file10/13/2023hysically AbusedNot on file 10/13/2023Sexually AbusedNot on file10/13/2023hysically or Sexually AbusedNot on file10/13/2023CommentsUnknownSex and Gender InformationValueDate RecordedSex Assigned at BirthNot on fileLegal HujEoivdv95/30/2022 12:43 AM EDT Gender IdentityNot on fileSexual OrientationNot on file Plan of Treatment Not on file
--- OUTSIDE RECORDS SUMMARY | 2025-07-07 10:55 | XMS_ITS | Patient Health Record ---
Author Organization [facility] [place] Address [address] [place] [address] Care Team Providers Care Contracting Specialist Name Role Phone Anamarai Chinchilla MD Primary Care Provider Sung Harris [phone] Allergies Allergen (clinical drug ingredient) Drug/Non Drug Allergy documented on EMR Reaction Allergy Type Onset Date Status hydromorphone Dilaudid Unknown Drug Allergy Active Results Component Value Reference Range Notes XR foot SARAHI min 3V (Not yet reviewed by provider) Interpretation: Performing Lab: Notes/Report: Source Facility: [place] [address] XRay Report Signed Patient: ISAURA RIVERA MR#: [id number] : 1950 Acct:[id number] Age/Sex: 74 / F ADM Date: 07/17/24 Loc: RAD Attending Dr: Sung Schmitz D.P.M. Ordering Physician: Sung Schmitz D.P.M. Date of Service: 07/17/24 Procedure(s): XR foot SARAHI min 3V Accession Number(s): [id number] cc: Sung Schmitz D.P.M.; ANAMARIA CHINCHILLA [place] [address] Patient Name: ISAURA RIVERA MRN: [id number] date: 1950 Sex: F Assigned Patient Location: RAD Current Patient Location: Accession/Order Number: [id number] Exam Date: 07/17/2024 09:15 Report Date: 07/19/2024 [...] M.D. Signed By: 07/19/24930 DD/ 8 TD/TT: Aquatics Director: XR foot SARAHI min 3V (Not yet reviewed by provider) Interpretation: Performing Lab: Notes/Report: Source Facility: [place] [address] XRay Report Signed Patient: ISAURA RIVERA MR#: [id number] : 1950 Acct:[id number] Age/Sex: 74 / F ADM Date: 08/08/24 Loc: RAD Attending Dr: Sung Schmitz D.P.M. Ordering Physician: Sung Schmitz D.P.M. Date of Service: 08/08/24 Procedure(s): XR foot SARAHI min 3V Accession Number(s): [id number] cc: Sung Schmitz D.P.M.; ANAMARIA CHINCHILLA [place] [address] Patient Name: ISAURA RIVERA MRN: [id number] date: 1950 Sex: F Assigned Patient Location: RAD Current Patient Location: Accession/Order Number: [id number] Exam Date: 08/08/2024 10:36 Report Date: 08/09/2024 [...] M.D. Signed By: 08/09/24602 DD/ 0 TD/TT: Aquatics Director: XR foot SARAHI min 3V (Not yet reviewed by provider) Interpretation: Performing Lab: Notes/Report: Source Facility: [place] [address] XRay Report Signed Patient: ISAURA RIVERA MR#: [id number] : 1950 Acct:[id number] Age/Sex: 74 / F ADM Date: 09/18/24 Loc: RAD Attending Dr: Sung Schmitz D.P.M. Ordering Physician: Sung Schmitz D.P.M. Date of Service: 09/18/24 Procedure(s): XR foot SARAHI min 3V Accession Number(s): [id number] cc: Sung Schmitz D.P.M.; ANAMARIA CHINCHILLA [place] [address] Patient Name: ISAURA RIVERA MRN: [id number] date: 1950 Sex: F Assigned Patient Location: RAD Current Patient Location: RAD Accession/Order Number: [id number] Exam Date: 09/18/2024 13:05 Report Date: 09/18/2024 [...] Signed By: 09/18/24 1346 DD/ 1344 TD/TT: Aquatics Director: XR Foot RT (3 views) * Reviewed date:08/20/2024 01:25:36 PM Interpretation: Performing Lab: Notes/Report: XR foot SARAHI min 3V (Not yet reviewed by provider) Interpretation: Performing Lab: Notes/Report: Source Facility: [place] [address] XRay Report Signed Patient: ISAURA RIVERA MR#: [id number] : 1950 Acct:[id number] Age/Sex: 74 / F ADM Date: 10/19/24 Loc: EC Attending Dr: Sung Schmitz D.P.M. Ordering Physician: Sung Schmitz D.P.M. Date of Service: 10/19/24 Procedure(s): XR foot SARAHI min 3V Accession Number(s): [id number] cc: Sung Schmitz D.P.M.; ANAMARIA CHINCHILLA [place] [id number] Patient Name: ISAURA RIVERA MRN: [id number] date: 1950 Sex: F Assigned Patient Location: Current Patient Location: Accession/Order Number: [id number] Exam Date: 10/19/2024 12:14 Report Date: 10/19/2024 [...] Maryanne Coates M.D.10/19/2024 12:17 PM Dictation Location: [place] [address] Electronically authenticated by: [id number] Y Date: 10/19/2024 12:17 Dictated By: Maryanne Coates M.D. Signed By: 10/19/24 1220 DD/ 1217 TD/TT: Aquatics Director: Reason For Referral No Information Medications Medication SIG (Take, Route, Frequency, Duration) Notes Start Date End Date Status Aspirin 81 81 MG 1 tablet Orally Once a day XrcutrDmcnvl-Gqom-NMD-Ej-E-CeZa-SeCu -as directed OrallyActiveLosartan Potassium 100 MG1 tablet Orally Once a dayActiveNorvasc 5 MG1 tablet Orally Once a day ActiveVitamin D 25 MCG (1000 UT)1 tablet Orally Once a dayActiveVitamin E 180 MG (400 UNIT)1 capsule Orally Once a dayActiveZioptan 0.0015 %1 drop into affected eye in the evening Ophthalmic Once a dayActiveRosuvastatin Calcium 20 MG1 tablet Orally Once a dayActivetiZANidine HCl 4 MG1 tablet Orally every 8 hours as needed for spasm; Duration: 4 days06/05/2024ctiveOmega 3 1000 MG1 capsule Orally Once a dayActive Social History Tobacco Use: Social History Observation Description Date Details (start date - stop date) Never Smoker NA - NA Tobacco Use/Smoking Question Answer Notes Patient is a nonsmoker Problems Problem Type SNOMED Code ICD Code Onset Dates Problem Status W/U Status Risk Notes Problem Arthralgia of the an kle and/or foot (255137667) Pain in left ankle and joints of left foot (M25.572) ActiveconfirmedProblemMetatarsalgia of right foot (264246429270192) Metatarsalgia, right foot (M77.41)ActiveconfirmedProblemPain in left foot (726853152511282)Pain in left foot (M79.672)ActiveconfirmedProblemPathological fracture (675848826)Age-related osteoporosis with current pathological fracture, unspecified site, initial encounter for fracture (M80.00XA)Activeconfirmed ProblemStress fracture of metatarsal bone (327585337)Stress fracture, left foot, initial encounter for fracture (M84.375A)Activeconfirmedsecond metatarsalProblem Nonunion of fracture (928284924)Stress fracture, left foot, subsequent encounter for fracture with nonunion (M84.375K)ActiveconfirmedProblemPain in right foot (027833938036615)Right foot pain (M79.671)ActiveconfirmedProblemNonunion of fracture (428615808)Nondisplaced fracture of second metatarsal bone, left foot, subsequent encounter for fracture with nonunion (S92.325K)ActiveconfirmedHigh ProblemPain in left foot (565619956294892)Left foot pain (M79.672)Active confirmed Vital Signs Heart Rate 60 /min 10/19/2024 Snrzmotwbkg15.5 degrees Potjlykauu02/28/5392Uqzjpynq88 %10/19/20247787Bdngzh98 in 10/19/2024 Encounters Encounter Location Date Provider Diagnosis [facility] [address] [address] 07/18/2024 Sung Schmitz [facility] ([facility])[address] [place] [address]/23/2025[facility])[address] [place] [address] [place] [address]/Peter HighlanderStress fracture, right foot, initial encounter for fracture M84.374A ; Age-related osteoporosis with current pathological fracture, unspecified site, initial encounter for fracture M80.00XA ; Left foot pain M79.672 ; Right foot pain M79.671 and Nondisplaced fracture of second metatarsal bone, left foot, subsequent encounter for fracture with nonunion S92.325[facility])[address] [place] [address] [place] [address]/ Peter HighlanderStress fracture, left foot, initial encounter for fracture M84.375A ; Stress fracture, right foot, initial encounter for fracture M84.374A ; Age-related osteoporosis with current pathological fracture, unspecified site, initial encounter for fracture M80.00XA ; Pain in left foot M79.672 and Right fo ot pain M79.671[facility])[address] [place] [address] [place] [address]/4Peter HighlanderStress fracture, right foot, initial encounter for fracture M84.374A ; Nondisplaced fracture of second metatarsal bone, left foot, subsequent encounter for fracture with nonunion S92.325K ; Age-related osteoporosis with current pathological fracture, unspecified site, initial encounter for rvisyokzC93.00XA ; Pain in left foot M79.672 and Pain in right foot M79.671[facility])[address] [place] [address] [place] [address]/4Peter HighlanderStress fracture, right foot, initial encounter for fracture M84.374A ; Stress fracture, left foot, initial encounter for fracture M84.375A ; Age-related osteoporosis with current pathological fracture, unspecified site, initial encounter for fracture M80.00XA ; Metatarsalgia, right foot M77.41 and Pain in left foot M79.672 Assessments Encounter Date Diagnosis (ICD Code) Assessment Notes Treatment Notes Treatment Clinical Notes Section Notes 07/17/2024 Stress fracture, rig ht foot, initial encounter for fracture (ICD-10 - [...] as well. I recommended RICE therapy with [facility] pain medicine. Follow-up in a month with weightbearing bilateral foot x-rays 07/17/2024Nondisplaced fracture of second metatarsal bone, left foot, subsequent encounter for fracture with nonunion (ICD-10 - S92.325K)Patient follows up for nonunited second metatarsal stress [...] follow-up with this foot as well with x-rays08/08/2024Stress fracture, right foot, initial encounter for fracture (ICD-10 - M84.374A)Patient presents for follow-up regarding bilateral metatarsal stress [...] to 6 weeks with weightbearing bilateral foot x-rays08/08/2024Stress fracture, left foot, initial encounter for fracture (ICD-10 - M84.375A)second pbdnsdsryu38/28/2025ress fracture, right foot, initial encounter for fracture (ICD-10 - M84.374A)Patient seen and evaluated. Patient education provided and all questions answered to her satisfaction. I recommended continue using the bone stimulator as prescribed. She may perform physical therapyfor recent tendon surgery as prescribed by her surgeon but did recommend that she tell her physicaltherapist of the nonhealing fractures on her bilateral feet and if she has pain she should back offany weightbearing exercise but otherwise have no limitations for her other than wearing the surgical shoes. She will follow-up in a month with x-rays of bilateral feet09/18/2024ge-related osteoporosis with current pathological fracture, unspecified site, initial encounter for fracture (ICD-10 - M80.00XA) 10/19/2024Stress fracture, left foot, initial encounter for fracture (ICD-10 - M84.375A)second dcanpzqkki58/28/2025Stress fracture, right foot, initial encounter for fracture (ICD-10 - M84.374A)Patient may discontinue the surgical shoe and return to normal shoes on her left foot but should continue the surgical shoe on the right foot. Patient continues to improve although very slowly. I reviewed her x-rays with her and she was educated on prognosis. She will follow-up in 2 months with weightbearing right foot x-rays10/19/2024ge- related osteoporosis with current pathological fracture, unspecified site, initial encounter for fracture (ICD-10 - M80.00XA)09/18/2024Left foot pain (ICD- 10 - M79.672)08/08/2024ge-related osteoporosis with current pathological fracture, unspecified site, initial encounter for fracture (ICD-10 - M80.00XA) 07/17/2024ge-related osteoporosis with current pathological fracture, unspecified site, initial encounter for fracture (ICD-10 - M80.00XA)07/17/2024 Pain in left foot (ICD-10 - M79.672)08/08/2024Metatarsalgia, right foot (ICD-10 - M77.41)09/18/2024Right foot pain (ICD-10 - M79.671)10/19/2024Pain in left foot (ICD-10 - M79.672)10/19/2024Right foot pain (ICD-10 - M79.671)09/18/2024 Nondisplaced fracture of second metatarsal bone, left foot, subsequent encounter for fracture with nonunion (ICD-10 - S92.325K)4Pain in left foot (ICD- 10 - M79.672)4Pain in right foot (ICD-10 - M79.671) Plan [...] Date [employer] ADV PLAN [address] [place] [address] [id number] [id number] Isaura Rivera Self - patient is the insured Medical (General) History Medical History History ICD Code arthritis high blood pressurehigh cholesterolSurgical History Surgery Date(Month/Year) capillary angioma x 3 tonsillectomyhemorhoidectomycholecystectomyprolapsed bladder, cystocele colonoscopyright ankle I&D due to cat biteHospitalization History Reason Date(Month/Year) see above
--- OUTSIDE RECORDS SUMMARY | 2025-07-07 10:55 | XMS_ITS | Clinical Summary ---
Author Organization [facility] Address [address], [address] [place] [address] Care Team Providers Care Rubber Tire Curer Name Role Phone Francia Gambino MD Primary Care Provider Unavailab le Social History Tobacco UseTypesPacks/DayYears UsedDateSmoking Tobacco: Never Assessed CommentsUnknownSex and Gender InformationValueDate RecordedSex Assigned at Not on fileLegal LydWpkzgx18/10/2013 7:38 PM ESTGender IdentityNot on fileSexual OrientationNot on file Plan of Treatment Not on file Insurance * Guarantor: Isaura Rivera TypeRelation to PatientDate of PhoneBilling AddressPersonal/RcpwvwUmnj1950 [address] [address] Care Teams Team MemberRelationshipSpecialtyStart DateEnd Date Francia Gambino MD [address] [place] [address] PCP - General04/02/14
--- OUTSIDE RECORDS SUMMARY | 2025-07-07 10:55 | XMS_ITS | Patient Health Record ---
Author Organization [facility] Address [address] [address], [place] [address] Care Team Providers Care Brickmason Helper Name Role Phone Polina Alvarado Primary Care Provider UnavailGraham Powell Unavailable [phone] Allergies Allergen (clinical drug ingredient) Drug/Non Drug Allergy documented on EMR Reaction Allergy Type Onset Date Status hydromorphone Dilaudid Unknown Drug Allergy Active Reason For Referral No Information Medications Medication SIG (Take, Route, Frequency, Duration) Notes Start Date End Date Status Losartan Potassium 100 MG Tablet Oral; Duration: 90 Days ActiveProliaActiveDurysta 10 MCG Implantas directed IntraocularActiveStool Softener 100 MG Capsule1 capsule as needed Orally Once a dayActiveBaby Aspirin ActiveRosuvastatin Calcium 20 MG TabletOral; Duration: 90 DaysActiveNorvasc 5 MG Tablet1 tablet Orally Once a dayActiveOmega 3ActiveVitamin E8HcxytbTvbflpx E ActiveGlucosamine Chondr 1500 ComplxActive Social History Section Notes: Non smoker. Daily alcohol use. Non smoker. Daily alcohol use. 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 Patient reports occasional discomfort. Continues using bone stimulator. - Right foot fracture in good alignment with some bone callus formation. - Patient reports occasional discomfort. - Continues using bone stimulator. - Gradually transition to normal shoes. - Monitor for increased symptoms. - Contact provider if needed. - Follow-up X-ray planned in 2-3 months. 02/04/2025Stress fracture of metatarsal bone of left foot, sequela (ICD-10 - M84.375S) Left foot fracture shows complete healing on X-ray. Patient reports no significant pain. Transitionto normal shoe advised. - Left foot fracture shows complete healing on X-ray. - Patient reports no significant pain. - Transition to normal shoe advised. - Monitor for increased symptoms. - Contact provider if needed. 04/15/2025losed nondisplaced fracture of fifth metatarsal bone of right foot with nonunion, subsequent encounter (ICD-10 - S92.354K)Patient continues to improve and xrays were obtained and reviewed today. There is progression in fra cture healing of right 5th metatarsal. She should continue to use bone stim as the lateral aspect of the fracture can still be visualized. She may continue to transition to normal stiff soled sneakers as pain allows. Monitor symptoms closely and call if they occur other roach f/u in 3 mo with xray of right foot. 04/15/2025Stress fracture of metatarsal bone of left foot, sequela (ICD-10 - M84.375S) Plan Of Treatment Next Appt Details Provider Name:Graham zamudio, 07/22/2025 10:30:00 AM, [address] [facility] [facility] [address], [place], [address], Insurance Providers Payer Name Payer Address Payer Phone Subscriber Number Group Number Insured Name Patient Relationship to Insured Coverage Start Date Coverage End Date Marii Echavarria Medicare Access Value [address] [place] [address] [id number] Anna Rivera - patient is the insured Medical (General) History Medical History History ICD Code Anemia AthritisHigh Blood PressureHigh CholesterolAnesthesia ProblemsHypertension Surgical History Surgery Date(Month/Year) Gallbladder Removal Benign YovfwbHjwurvzamsboidjMyhymivcytvz1370Uhpkohjhc Bladder Repair
--- NOTE | 2025-07-07 11:11 | ECG_ITS ---
[facility] Test Date: 2025-07-07 Pat Name: PAPITO HAYDEN Department: Room: - Gender: Female Passenger Service Manager: : 1950 Requested By: Eric Costa Order Number: [id number] Reading MD: JESSICA LAURENT M.D. Measurements Intervals [place] Rate: 54 P: 63 DC: 196 QRS: 50 QRSD: 88 T: 62 QT: 442 QTc: 429 Interpretive Statements 1100 Sinus rhythm 9110 normal ECG Compared to ECG 09/14/2024 13:39:45 No significant changes Electronically Signed On 07-07-2025 14:38:42 EST by JESSICA LAURENT M.D.
[2025-07-07 11:28] LABS: Hematocrit 34.0 % (36.0-48.0); Hemoglobin 11.9 g/dL (12.0-16.0); Immature Granulocytes Abs Auto 0.01 10^3/uL (0.00-0.03); Immature Granulocytes Pct Auto 0.2 % (0.0-0.5); Lymphocytes Absolute Auto 1.2 10^3/uL (1.2-3.8); Mean Corpuscular HGB Conc 35.0 g/dL (29.9-35.2); Mean Corpuscular Hemoglobin 33.6 pg (26.7-34.0); Mean Corpuscular Volume 96.0 fL (81.0-99.0); Platelet Count 289 10^3/uL (150-450); Red Blood Count 3.54 10^6/uL (4.20-5.40); White Blood Count 5.5 10^3/uL (4.0-11.0)
[2025-07-07 11:56] LABS: Anion Gap 12.7; Blood Urea Nitrogen 17.0 mg/dL (7.0-18.0); Calcium 9.4 mg/dL (8.5-10.1); Carbon Dioxide 25.8 mmol/L (21.0-32.0); Chloride 105 mmol/L (98-107); Estimated GFR (African America 37 (>=60 mL/min/1.73m^2); Estimated GFR (Non-African Ame 30 (>=60 mL/min/1.73m^2); Glucose 107 mg/dL (74-106); Potassium 4.5 mmol/L (3.5-5.1); Sodium 139 mmol/L (136-145)
[2025-07-07 11:57] LABS: Glucose Urine UA NEGATIVE (NEGATIVE)
[2025-07-07 12:09] LABS: Cast Seen? NONE SEEN #/LPF (NONE SEEN); Crystals Seen? None Seen #/HPF (None Seen)
== END 2025-07-07 13:09 | disposition home or self-care (01) ==
PROVIDERS: Emergency Provider Emergency Medicine; PCP Nurse Practitioner
DX: E86.0 Dehydration (principal)
CPT/HCPCS: 36415; 80048; 81001; 85025; 93005; 99285

== ENCOUNTER 2025-07-22 09:59 | Outpatient (OUT) | payer MEDICARE, SELFPAY ==
--- OUTSIDE RECORDS SUMMARY | 2025-07-22 10:03 | XMS_ITS | Clinical Summary ---
Author Organization [facility] Address [address] [place] [address] Care Team Providers Care Company Accountant Name Role Phone Unavailable Primary Care Provider Unavailabl e Social History Tobacco UseTypesPacks/DayYears UsedDateSmoking Tobacco: Never AssessedUT Safety & EnvironmentAnswerDate RecordedFear of Current or Ex-PartnerNot on file 10/13/2023Emotionally AbusedNot on file10/13/2023hysically AbusedNot on file 10/13/2023Sexually AbusedNot on file10/13/2023hysically or Sexually AbusedNot on file10/13/2023CommentsUnknownSex and Gender InformationValueDate RecordedSex Assigned at BirthNot on fileLegal OnwFldjyg07/30/2022 12:43 AM EDT Gender IdentityNot on fileSexual OrientationNot on file Plan of Treatment Not on file
--- OUTSIDE RECORDS SUMMARY | 2025-07-22 10:03 | XMS_ITS | Clinical Summary ---
Author Organization [facility] Address [address] [place] [address] Care Team Providers Care Vendor Management Consultant Name Role Phone Francia Gambino MD Primary Care Provider [phone] Allergies Active AllergyReactionsCriticalityNoted DateCommentsHydromorphoneUnknown 01/28/2023 Medications MedicationSigDispense QuantityRefillsLast FilledStart DateEnd DateStatus Krill Oil (Putnam-3) 500 MG capsule Take 500 mg by mouth.12/01/2022ctive alpha tocopherol (Vitamin E) 1000 units capsule See Instructions, take one daily 400mg, Refills(s) ctive rosuvastatin (Crestor) 20 MG tablet Take 20 mg by mouth.12/01/2022ctive aspirin 81 MG EC tablet Take 81 mg by mouth every other day.Active Vzfdhjw-Msnycljmkp-Jcxtmdv D (VITAMIN D3/CALCIUM/PHOSPHORUS PO) Take 1 each [...] Units under the skin every 6 (six) dfxoiq6407/30/2024ctive Active Problems ProblemNoted DateDiagnosed VyrcAhpfrkcosnazba10/05/2023History of colon polyps 02/01/2023ge-related osteoporosis without current pathological fracture 01/31/20236673Yqaowyeaggml42/12/2023TIA (transient ischemic attack)01/31/2023 Pwkynbtst78/08/8689Lejyvfowsngpsyajxlst74/08/2017Iron deficiency anemia 12/27/2016 Immunizations ImmunizationAdministration DatesNext DueHep A, Adult11/08/2016,05/05/2016 Influenza, injectable, quadrivalent, preservative free07/12/2014Influenza, seasonal, vvncaxbuih14/15/2013,05/18/2012,05/17/2011Pneumococcal Conjugate PCV 13109/20/2017Pneumococcal Polysaccharide ZDVZ883909/24/2018,06/25/2008 Family History Medical HistoryRelationNameCommentsColon cancerBrotherBrain cancerFatherDiabetes FatherHeart diseaseFatherLung cancerFatherKidney diseaseMotherbladder cancer MotherCancerPaternal GrandmotherCancerSiblingDiabetesSiblingHeart diseaseSibling MelanomaNeg HxRelationNameStatusCommentsBrotherFatherDeceasedMotherDeceased Paternal GrandmotherSibling Social History Tobacco UseTypesPacks/DayYears UsedDateSmoking Tobacco: Never Tobacco Cessation:Counseling Given: Not Answered Alcohol UseStandard Drinks/WeekCommentsYes1 (1 standard drink = 0.6 oz pure alcohol)CommentsNoSex and Gender InformationValueDate RecordedSex Assigned at BirthNot on fileLegal WymUefziv30/15/2023 7:02 PM EDTGender Identity Not on fileSexual OrientationNot on file Last Filed Vital Signs Vital SignReadingTime TakenCommentsBlood Jhljawzh407/70008/28/2024 9:11 AM EST Pulse--Temperature--Respiratory Rate--Oxygen Saturation--Inhaled Oxygen Concentration--Jyvoal67.7 kg (169 lb)08/28/2024 9:11 AM AHYLouuia014.6 cm (5' 4 )05/25/2023 1:07 PM EDTBody Mass Index29.011 1:07 PM EDT Plan of Treatment DateTypeDepartmentCare Team (Latest Contact Info)Ziccchellwp79/13/2026 10:00 AM ESTOffice Visit [facility] [address] [place] [address] Bentley Das DO [address] [place], [place] [id number] Insurance Care Teams Team MemberRelationshipSpecialtyStart DateEnd Date Francia Gambino MD [address] [place] [id number] PCP - GeneralFamily Medicine01/27/23
--- OUTSIDE RECORDS SUMMARY | 2025-07-22 10:03 | XMS_ITS | Clinical Summary ---
Author Organization [facility] Address [address], [address] [place] [address] Care Team Providers Care Drosophere Operator Name Role Phone Francia Gambino MD Primary Care Provider Unavailab le Social History Tobacco UseTypesPacks/DayYears UsedDateSmoking Tobacco: Never Assessed CommentsUnknownSex and Gender InformationValueDate RecordedSex Assigned at Not on fileLegal EueSxpqkq12/10/2013 7:38 PM ESTGender IdentityNot on fileSexual OrientationNot on file Plan of Treatment Not on file Insurance * Guarantor: Isaura Rivera TypeRelation to PatientDate of PhoneBilling AddressPersonal/DrurtrKzct1950 [address] [address] Care Teams Team MemberRelationshipSpecialtyStart DateEnd Date Francia Gambino MD [address] [place] [address] PCP - General04/02/14
--- OUTSIDE RECORDS SUMMARY | 2025-07-22 10:03 | XMS_ITS | Clinical Summary ---
Author Organization [employer] [facility] Address [id number] [address] [place] [address] Care Team Providers Care Purchasing Manager/Sales Name Role Phone Job Alvarado MD Primary Care Provider [phone] Allergies Active AllergyReactionsCriticalityNoted DateCommentsHydromorphoneConfusion, IfrmezzlukgpzmZnw44/18/2024 Medications MedicationSigDispense QuantityRefillsLast FilledStart DateEnd DateStatus psyllium [...] 60 tablet 11/14/2023ctive Active Problems ProblemNoted DateDiagnosed EtukWzmbicedhidisofypsww72/08/6331Hvancccka64/08/2017 Iron deficiency slllyn3012/27/2016 Resolved Problems ProblemNoted DateDiagnosed DateResolved DateEndometrial thickening on ultrasound /ostmenopausal pkfapjda70/03/2024 Family History Medical HistoryRelationNameCommentsCancerBrotherDiabetesBrotherHeart disease BrotherKidney diseaseBrotherArthritisFatherCancerFatherDiabetesFatherHeart [...] standard drink = 0.6 oz pure alcohol)ChildcareAnswerDate GqdgujknRzqowxyrcWtomypu51/12/2019EmploymentAnswer Date KbkxsbhcTkvhtotphaWoawqvt64/12/2019Hunger ScreeningAnswerDate Recorded Within the past 12 months we worried whether our food would run out before we got money to buy more.Never True11/07/2023Within the past 12 months the food we bought just didn't last and we didn't have money to get more.Never True 4Purpose - LifeAnswerDate RecordedPurpose and direction in lifeUnknown 1CommentsNoSex and Gender InformationValueDate RecordedSex Assigned at HwqqkLkxpxt65/04/2024 9:16 AM ESTLegal FtzMzzunw59/06/2015 12:11 PM EDTGender SdvvsuhqChzchx64/04/2024 9:16 AM ESTSexual OrientationNot on file Last Filed Vital Signs Vital SignReadingTime TakenCommentsBlood Jlfjbyqr915/7105 10:45 AM EDT Nmgbo941412/27/2023 10:45 AM JFXBgxtlxpwnot44.6 ??C (97.8 ??F)12/27/2023 10:45 AM EDTRespiratory Zlsl765212/27/2023 10:45 AM EDTOxygen Gngffwskoz94%12/27/2023 10:45 AM EDTInhaled Oxygen Concentration--Uyxzux27.8 kg (167 lb)12/27/2023 10:45 AM QWRGthbgs059.6 cm (5' 4.02 )12/27/2023 10:45 AM EDTBody Mass Index28.65 12/27/2023 10:45 AM EDT Plan of Treatment Health MaintenanceDue DateLast DoneCommentsDepression Fmoakmsgc57/21/1964 DTaP,Tdap and Td Vaccines (1 - Tdap)1971Zoster (Shingles) Vaccine (1 of 2) 2002Fall Risk Myzsioqwu47/21/2017Tobacco Tpkuclnnz67/25/739240/ Adult BMI Uxrtvrsvd92/02/2024Influenza Fmndlao02, 06/05/2013, 05/18/2012, Additional history existsRSV ( or age 60+ yrs) (1 - 1-dose 75+ series)2027 [employer] Not on file Insurance * Guarantor: Isaura Rivera TypeRelation to PatientDate of PhoneBilling AddressPersonal/MvfwhhZwvd1950 [address] [address] Care Teams Team MemberRelationshipSpecialtyStart DateEnd Date Job Alvarado MD [address] [place] [address] PCP - GeneralFamily Medicine11/07/23
--- NOTE | 2025-07-22 10:07 | XR_ITS ---
The [address] [address] Patient Name: PAPITO HAYDEN MRN: [id number] date: 1950 Sex: F Assigned Patient Location: [facility] Current Patient Location: MRI Accession/Order Number: [id number] Exam Date: 07/22/2025 10:10 Report Date: 07/22/2025 11:03 At the request of: SUNG COPELAND DPM Procedure: XR foot RT min 3V RIGHT FOOT - 3 views COMPARISON: 04/15/2025 CLINICAL DATA: Follow-up fifth metatarsal fracture. Foot pain. Weightbearing AP, lateral and oblique views were obtained. There is redemonstration of a healing fracture at the proximal shaft of the fifth metatarsal, unchanged from the prior. There is no new fracture or dislocation. Minor degenerative change is again noted at the first metatarsal phalangeal joint. There are tiny calcaneal spurs. There are no significant soft tissue abnormalities. XR/XR foot RT min 3V IMPRESSION: STABLE HEALING FIFTH METATARSAL FRACTURE Impression dictated by: Maryanne Coates M.D. 07/22/2025 11:03 AM Dictation Location: [address] [address] Electronically authenticated by: [id number] Y Date: 07/22/2025 11:03
--- OUTSIDE RECORDS SUMMARY | 2025-07-22 10:08 | XMS_ITS | CCD ---
Author Organization [facility] Inform ion Partnership [facility] Care Team Providers Care Mortgage Counselor Name Role Phone FARA BOOKER Unavailable Unavailable [...] Unavailable Anjelica Gambino MD Primary Care Provider [phone] BENTLEY DAS Attending Unavailable BENTLEY DAS Attending Unavailable Kushal Keith Attending Unavailable Anamaria Chinchilla MD Primary Care Provider Anjelica Gambino MD Primary Care Provider [phone] Anamaria Chinchilla Attending Unavailable Matt Richmond Admitting [...] Anjelica Gambino MD Primary Care Provider Yi, PAINTING TRADES WORKER Matt Rosado Admitting Unavailable Yi, PAINTING TRADES WORKER Matt Rosado Attending Unavailable Harpreet Trejo Attending Unavailable DOTTY Richmond Attending Unavailable Allergies Allergy ClassificationReported Allergen(s)Allergy TypeDate of OnsetReaction(s) Facility (6 sources)atorvastatin; Translations: [atorvastatin]Drug AllergyUnknown (qualifier value)[facility] (20 sources)HYDROmorphone; Translations: [hydromorphone]Drug Hizuyta90-25-3159 Unknown (qualifier value), Unknown, Confusion, HallucinationsFish-[facility] (6 sources)Pyrilamine; Translations: [pyrilamine]Drug AllergyUnknown (qualifier value)[facility] (4 sources)No Known Medication Allergies; Translations: [No Known Medication Allergies]Propensity to adverse reactions (disorder)[facility] (1 source)HYDROmorphone; Translations: [Dilaudid]Drug AllergyPrem[facility] Health [facility] [employer] Medications Current Medications MedicationDrug Class(es)DatesSig (Normalized)Sig (Original)amLODIPine 5 mg oral tablet (16 sources)Dihydropyridine Calcium Channel BlockerStart: 93-58-5633suir 1 tablet by mouth in the morningamLODIPine (Norvasc) 5 MG tablet Take 5 mg by mouth in the morning. 06/01/2023 Activeaspirin 81 mg oral capsule (18 sources)Platelet Aggregation Inhibitor, Nonsteroidal Anti-inflammatory Drug Start: 41-49-0297ntxx 1 capsule by mouth every other dayaspirin 81 mg oral capsule See Instructions, 1 cap(s) Oral every other day, Refills(s) 0 Start Date: 11/29/22 Status: OrderedStart: 97-61-1047fsbu 1 capsule by mouth once daily aspirin [...] 0.01 mg drug implant (14 sources)Prostaglandin AnalogStart: 86-03-7245Quqxzyl 10 mcg intraocular implant mcg, IntraOcular, Once, Refills(s) 0 Start Date: 07/13/24 Status: OrderedStart: 54-54-0187fsinutnbcav 0.03% ophthalmic solution Refill(s) 0 Start Date: [...] ActiveCalcium Citrate / Vitamin D (3 sources)Start: 38-13-0770qczataz-vitamin D Daily, Refill(s) 0 Start Date: 05/30/23 Status: JfuwgctOvvsmld-Pfmhepznka-Reeckve D (VITAMIN D3/CALCIUM/PHOSPHORUS PO) (8 sources)take 1 dose by mouth once in the mzdrhbhGvopaod-Hnzluezonr-Oejeqgy D (VITAMIN D3/CALCIUM/PHOSPHORUS PO) Take 1 each by mouth in the morning. Active denosumab (13 sources)RANK Ligand InhibitorStart: 26-05-0986Xwrwcsief (PROLIA SC) Inject 1 Units under the [...] 0 Activedocusate sodium 50 mg / sennosides, long-term 8.6 mg oral tablet (2 sources)Start: 90-73-8793jcno 1 tablet by mouth in the morningsennosides- docusate sodium (SENOKOT-S) 8.6-50 mg Take 1 tablet by mouth in the morning. 60 tablet 11/14/2023 Activedoxycycline hyclate 100 mg oral capsule (1 source)Tetracycline-class DrugStart: 05-07-2024 End: 52-78-7212uakz 1 capsule by mouth twice dailydoxycycline hyclate 100 mg Cap 100 mg = 1 cap(s), Oral, BID, X 7 day(s), # 14 cap(s), Refills(s) 0,Pharmacy: [facility] [id number], 162, cm, 05/07/24 14:07:00 EDT, Height/Length Dosing, 76, kg, 05/07/24 14:07:00 EDT, Weight Dosing Start Date: 05/07/24 Stop Date: 05/14/24 Status: Orderedglucosamine hydrochloride 1500 mg oral tablet (5 sources)Start: 56-62-1458xysutpyqbug hydrochloride 1500 mg oral tablet 1,500 mg, 1 tab(s), Oral, Daily, 30 tab(s), Refill(s)0 Start Date: 12/01/22 Status: Ordered End: 57-85-5933rtgg 1 capsule by mouth once dailyglucosamine sulfate [...] oil 500 mg oral capsule (12 sources)Start: 97-24-9891Hofsa Oil (Indianola-3) 500 MG capsule Take 500 mg by mouth. 12/01/2022 Activelosartan potassium 100 mg oral tablet (16 sources)Angiotensin 2 Receptor BlockerStart: 80-62-5681iwut 1 tablet by mouth in the morninglosartan (Cozaar) 100 MG tablet Take 100 mg by mouth in the morning. 05/30/2023 ActiveStart: 93-57-6916rpjs 1 tablet by mouth twice daily losartan 25 mg Tab 25 mg = 1 tab(s), Oral, BID, # 180 tab(s), Refills(s) 0, Pharmacy: [facility] [id number], 162, cm, 05/11/23 9:36:00 EDT, Height/Length Dosing, 74.9, kg, 05/11/23 9:36:00 EDT, Weight Dosing Start Date: 05/11/23 Status: Orderedmeloxicam 15 mg oral tablet (6 sources)Nonsteroidal Anti-inflammatory DrugStart: 02-27-2023 End: 16-60-6502odqu 1 tablet by mouth once daily as neededmeloxicam 15 mg Tab See Instructions, TAKE ONE TABLET BY MOUTH DAILY NEEDED, # 90 tab(s), Refills (s) 0, Pharmacy: [facility] [id number], 162.6, cm, 12/01/22 15:23:00 EDT, Height/Length Dosing, 76.5, kg, 12/01/22 15:23:00 EDT, Weight Dosing Start Date: 02/27/23 Status: Orderednitrofurantoin, macrocrystals 25 mg / nitrofurantoin, monohydrate 75 mg oral capsule (1 source)Nitrofuran AntibacterialStart: 10-19-2024 End: 99-27-0747napi 1 capsule by mouth twice dailyMacrobid 100 mg Cap 100 mg = 1 cap(s), Oral, BID, X 7 day(s), # 14 cap(s), Refills(s) 0, Pharmacy: [facility] [id number], 162, cm, 09/17/24 9:18:00 EST, Height/Length Dosing, 77.9, kg, 09/17/24 9:18:00 EST, Weight Dosing Start Date: 10/19/24 Stop Date: 10/26/24 Status: Orderedomega-3 acid ethyl esters (long-term) 1000 mg oral capsule (2 sources)take 1 [...] mg oral tablet (18 sources)HMG-CoA Reductase InhibitorStart: 93-94-4738vhpunqaltjti (Crestor) 20 MG tablet Take 20 mg by mouth. 12/01/2022 Activetafluprost 0.015 mg/ml ophthalmic solution (5 sources)Prostaglandin AnalogStart: 44-49-3926raek 1 drop(s) into the eye(s) once dailyZioptan 0.0015% ophthalmic solution See Instructions, Refill(s) 0, 1 drop(s) Eye-Right & Left once daily Start Date: 05/11/23 Status: Ordered End: 26-22-0441nhmc 1 drop(s) into the eye(s) once dailytafluprost (PF) 0.0015 % eye drops in a dropperette 02/27/2025 instill 1 drop into affected eye(s) by ophthalmic route once daily End: 40-19-4302Bbmcyecukn, PF, (Zioptan) 0.0015 % solution Administer 1 drop into affected eye(s) in the morning. 08/28/2024 DiscontinuedtiZANidine 4 mg oral tablet (1 source)Central alpha-2 Adrenergic AgonistStart: 15-33-4687sqMXUhfctx 4 mg Tab 12 tab(s), 0 Refill(s), Refills(s) 0 Start Date: 07/13/24 Status: Ordered Vitamin D3 (2 sources)Start: 92-60-6861Amrjvcv D3 Refills(s) 0 Start Date: 07/30/24 Status: Orderedvitamin e 450 mg oral capsule (17 sources)Start: 24-51-9474ahzm 1 capsule by mouth once dailyvitamin E 450 mg oral capsule See Instructions, take one daily 400mg, Refills(s) 0 Start Date: 12/01/22 Status: OrderedStart: 56-87-8435xkzwn tocopherol (Vitamin E) 1000 units capsule See [...] mg oral tablet (1 source)Start: 11-14-2023 End: 03-32-3665shna 1 tablet by mouth every six hours as needed for pain acetaminophen (TYLENOL EXTRA STRENGTH) 500 mg tablet Take 1 tablet (500 mg total) by mouth every 6 (six) hours as needed for pain. 60 tablet 0 11/14/2023 11/29/2023 Discontinued (Therapy completed)acetaminophen 325 mg / HYDROcodone bitartrate 5 mg oral tablet (1 source)Opioid Agonist End: 91-54-3402ykpj 1 tablet by mouth every six hours as needed for pain hydrocodone 5 mg-acetaminophen 325 mg tablet 02/27/2025 take 1 tablet by oral route every 6 hours as needed for painalendronic acid 70 mg oral tablet (4 sources)Bisphosphonate End: 15-72-3451jyik 1 tablet by mouth in the morningalendronate [...] oral tablet (4 sources)HMG-CoA Reductase Inhibitor End: 80-30-8600fixc 1 tablet by mouth once dailyatorvastatin (LIPITOR) 10 mg tablet Take 10 mg by mouth daily. 0 11/07/2023 Discontinued (Therapy completed) betamethasone 3 mg/ml / betamethasone acetate 3 mg/ml injectable suspension (1 source)Corticosteroid End: 28-59-7808Kwnrmasjr Soluspan 6 mg/mL suspension for injection 02/27/2025 [...] tablet (1 source)Nonsteroidal Anti-inflammatory DrugStart: 11-14-2023 End: 82-94-6370kaxf 1 tablet by mouth every six hours as needed for pain ibuprofen (MOTRIN) 800 mg tablet Take 1 tablet (800 mg total) by mouth every 6 (six) hours as needed for pain. 60 tablet 0 11/14/2023 11/29/2023 Discontinued (Therapy completed)methylPREDNISolone 4 mg oral tablet (1 source)Corticosteroid End: 89-53-8734Qonetj (Morro) 4 mg tablets in a dose pack 02/27/2025 take by oral route as directed per package instructionsomega-3 fatty acids-fish oil (FISH OIL) 300-1,000 mg capsule (4 sources) End: 33-70-5347lwdo 1 capsule by mouth once dailyomega-3 fatty acids-fish oil (FISH OIL) 300-1,000 mg capsule Take 1 g by mouth daily. 0 11/07/2023 D iscontinued (Therapy completed)take 1 capsule by mouth once dailyomega-3 fatty acids-fish oil (FISH OIL) 300-1,000 mg capsule Take 1 g by mouth daily. 0 Active oxyCODONE hydrochloride 5 mg oral tablet (1 source)Opioid AgonistStart: 11-14-2023 End: 40-66-1088yvos 1 tablet by mouth every six hours as needed for pain oxyCODONE (ROXICODONE) 5 mg immediate release tablet Indications: Post-operative pain Take 1 tablet(5 mg total) by mouth every 6 (six) hours as needed for pain for up to 12 doses. Max Daily Amount: 20 mg 12 tablet 0 11/14/2023 11/29/2023 Discontinued (Therapy completed)psyllium 400 mg oral capsule (10 sources) End: 37-23-8721kwgj 1 capsule by mouth once dailyMetamucil 0.4 gram capsule 02/27/2025 take 1 capsule by oral route daily End: 64-73-7134zgrbwkpb (Metamucil) 48.57 % powder Orally 08/28/2024 Discontinuedtake 1 dose by mouth in the morningpsyllium (METAMUCIL) 3.4 gram packet Indications: constipation Take 1 packet (3.4 g total) by mouthin the morning. Indications: constipation. Activestool softner (2 sources)Start: 82-66-9029vnawi softner stool softner, 100 mg, Oral, Bedtime, take 2 Start Date: 07/30/24 Status: Orderedvitamin E oral 180mg (1 source)vitamin E oral 180mg 1 nightly Problems Active Problems Problem ClassificationProblemDateDocumented DateEpisodic/ChronicAbdominal pain (4 sources)Right sided abdominal skum58-89-3169HvsqtwruQgoemvl kidney disease (3 sources)Chronic kidney disease stage 3A ; Translations: [Chronic kidney disease stage 3B ]19-96-3946XtrkuueJrczvsr on above:Added per Dr. Chinchilla query response, per outpatient CDI policy.Deficiency and other anemia (2 sources)Twclkk70-81-0387UpkrbaxxZqdpraaik of lipid metabolism (20 sources)Pure hypercholesterolemia, unspecified; Translations: [Hypercholesterolemia]Onset: 93-07-5303KtuorcdMwflvjdfh hypertension (17 sources)Essential (primary) hypertension; Translations: [Hypertensive disorder]Onset: 67-35-6626EjddgqoRkqoxahu (1 source)Unspecified glaucomaChronicHeart valve disorders (1 source)Rheumatic disorders of both mitral and tricuspid valves; Translations: [RHEUMATIC D/O MITRAL TRICUSPID VALV]Onset: 66-32-6345AewlkyzHftvcywblamb with complications and secondary hypertension (3 sources)Hypertensive renal qfysfvu78-88-3211NfqvjxsSxfvihq on above:Linked per outpatient CDI policy.Malaise and fatigue (2 sources)Khnftst89-04-0231FvaqjdzvRgvwbgbimm disorders (11 sources)Postmenopausal bleeding; Translations: [Postmenopausal bleeding] Onset: 10-27-2023 Resolved: 518315-88-2184CkuqpszYmpkonfzsaehrs (14 sources)Arthritis; Translations: [Unspecified osteoarthritis, unspecified site]Onset: 357363-39-9625UlpcgxaDfgjoeijwawd (15 sources)Senile osteoporosis; Translations: [Age-related osteoporosis without current pathological fracture]Onset: 859020-60-3056KywprvhXzapa aftercare (1 source)Encounter for other specified surgical aftercare; Translations: [Encounter for other specified surgical aftercare]Onset: 48-79-6503OjsonfdcVruoy connective tissue disease (4 sources)Pain in left foot; Translations: [PAIN IN LEFT FOOT]Onset: 08-03-2022 EpisodicOther connective tissue disease (3 sources)Foot hsmf04-02-4394BweqhhqpSjnbp connective tissue disease (1 source)Biceps jbjudfoxfa50-94-9056IbnkvnvxIltxi connective tissue disease (1 source)Pain in left hql99-33-8880AabkaqnrRefky connective tissue disease (1 source)Pain in right legOnset: 19-52-3780JkgihtlhCsset connective tissue disease (1 source)Pain in left legOnset: 59-77-6533RtvuykmiRnrze injuries and conditions due to external causes (2 sources)Cat bite - -76-0291ZwflbcbtWritz lower respiratory disease (2 sources)Chronic rigpk37-62-6847CrbxfiwkAqawp nervous system disorders (1 source)Other acute postprocedural pain; Translations: [Other acute postprocedural pain]Onset: 94-19-4493GmgegnexXdkgf nervous system disorders (1 source)Other disturbances of skin sensationOnset: 42-40-7573EpyqhwhdVzwbs nutritional; endocrine; and metabolic disorders (3 sources)Overweight in adulthood with body mass index of 25 or more but less than 7873-36-1412VzwamfvwZxpijgjr codes; unclassified (1 source)Pain, unspecified; Translations: [Pain, unspecified]Onset: 10-19-2023 EpisodicResidual codes; unclassified (2 sources)Postmenopausal state; Translations: [Asymptomatic menopausal state] 05-54-2976SawbfpbzMquvhxa (1 source)Zcvjcqa99-72-2739KggfpdiiIysgnztff cerebral ischemia (17 sources)Transient cerebral ischemic attack, unspecified; Translations: [Transient cerebral ischemia]Onset: 27-65-7104KrlwtuuPrcaenawapop (7 sources)Encounter for screening mammogram for malignant neoplasm of breast; Translations: [Patient encounter status]Onset: 41-21-8767JxsyayhxAblihedawlui (1 source)THICKENED ENDOMETRUM/POST MENOPAUSAL BLEEDING/CERVICAL STENOSISOnset: 56-14-4572Zyskhfatdscv (1 source)Patient encounter binpdo65-32-5337Emhjzrh tract infections (4 sources)Urinary tract infection, site not specified; Translations: [UTI SITE NOT SPECIFIED]Onset: 70-06-9124Uxwpkzhb Past or Other Problems Problem ClassificationProblemDateDocumented DateEpisodic/ChronicCardiac dysrhythmias (4 sources)Palpitations; Translations: [PALPITATIONS]Onset: 35-74-1668Wehqchhy Deficiency and other anemia (14 sources)Iron deficiency anemia; Translations: [Iron deficiency anemia, unspecified]Onset: 263648-20-3291TqvjyradHniljbmq mellitus without complication (1 source)Hyperglycemia, unspecified; Translations: [HYPERGLYCEMIA UNSPECIFIED] Onset: 28-15-9222MszdtcqyVjoam aftercare (2 sources)Postoperative visit; Translations: [Encounter for other specified surgical aftercare]65-34-8072AcfticcdTjdhd and unspecified benign neoplasm (8 sources)History of polyp of colon; Translations: [History of colon polyps] Onset: 750834-86-3422JfckbolsYsuhp bone disease and musculoskeletal deformities (1 source)Other specified disorders of bone density and structure, unspecified site; Translations: [OTH D/O BONE DEN STRUCT UNS SITE]Onset: 40-42-2414Gseioswd Other screening for suspected conditions (not mental disorders or infectious disease) (7 sources)Abnormal findings on diagnostic imaging of other specified body structures; Translations: [Endometrium thickened]Onset: 10-27-2023 Resolved: 269461-62-7729LnzhwdfEhbtmwsy codes; unclassified (1 source)Family history of malignant neoplasm of breast; Translations: [FAMILY HX MALIG NEOPLASM OF BREAST]Onset: 30-96-2646NzejhapjZklfntuz codes; unclassified (1 source)Family history of malignant neoplasm of trachea, bronchus and lung; Translations: [FAM HX MALIG NEOPLSM TRACH BRON LNG]Onset: 67-84-9230Xegrnupo Unclassified (5 sources)Asymptomatic menopausal state; Translations: [Asymptomatic menopausal state]Onset: 02-84-7973Pdrisoks Results Test NameValueInterpretationReference RangeFacilityC Urineon 19-85-8044Fesohuyh identified Cx Nom (U)Microbiology PROCEDURE: Urine Culture [...] Locations R1: This test was performed at: [facility], [address] [place] [address], [facility] , , OiihuoSrztbuSelect Medical Specialty Hospital - CincinnatiComment on above:Performed By: #### [id number] #### [facility] [address] [place] [address] TOMOSYNTHESIS SCREENING [place]on [place] [address] Mammography Report Signed Patient: ISAURA HAYDEN MR#: [id number] : 1950 Acct:[id number] Age/Sex: 74 / F ADM Date: 04/15/25 Loc: MAMMO Attending Dr: Bentley Das D.O. Ordering Physician: Bentley Das D.O. Results: Date of Service: 04/15/25 Follow Up: Procedure(s): MM tomosynthesis screening Accession Number(s): [id number] cc: Bentley Das D.O.; YIMATT MARK Patient Name: ISAURA HAYDEN MR#: [id number] : 1950 Exam Date: 04/15/2025 Ordering Doctor: [...] [facility] BREAST COMPOSITION: There are scattered areas of [...] Signed By: 04/15/25 1019 DD/ 1018 TD/TT: Land Survey Technician:TBHRadiology, Radiologist, MD - 04/15/2025 [place] [address] Mammography Report Signed Patient: ISAURA HAYDEN MR#: [id number] : 1950 Acct:[id number] Age/Sex: 74 / F ADM Date: 04/15/25 Loc: MAMMO Attending Dr: Bentley Das D.O. Ordering Physician: Bentley Das D.O. Results: Date of Service: 04/15/25 Follow Up: Procedure(s): MM tomosynthesis screening BI Accession Number(s): [id number] cc: Bentley Das D.O.; MATT RICHMOND Patient Name: ISAURA HAYDEN MR#: [id number] : 1950 Exam Date: 04/15/2025 Ordering Doctor: [...] [facility] BREAST COMPOSITION: There are scattered areas of [...] Signed By: 04/15/25 1019 DD/ 1018 TD/TT: Land Survey Technician: [facility] CenterRadiology Study observation (narrative)[facility] TOMOSYNTHESIS SCREENING BIOrdered By: Radiologist Radiology on 60-92-6024JDSHResearch Medical Center Work Phone: cCF CALCIUMon 21-52-4974Mzlksog [Mass/Vol]9.1 mg/dL8.5 - 10.1 mg/dLResearch Medical CenterNo Panel Informationon 89-01-3894CHKWPPEIJTCGA HealthcareTBH CREATININEon 05-75-6472Lztfbxhnho [Mass/Vol]1.28 mg/dLHigh0.55 - 1.02 mg/dLNOThe Rehabilitation Institute of St. LouisGFR/1.73 sq M.predicted CKD-EPI (S/P/Bld) [Vol rate/Area]50Low>=60 mL/min/1.73m 2NOMS HealthcareInterpretation and review of laboratory resultsAbnormalNOMS HealthcareTBH EGFR-NON AF BBFYFDUZ70Ccb>=60 mL/min/1.73m 2NOMS HealthcareNo Panel Informationon 40-28-5099Bqmigjr smoking statusNon-SmokerInvalid Interpretation [place] Ambulatory Visit Summaryon 49-59-5119Zvxzovflrk Visit SummaryAmbulatory Visit Summary ISAURA HAYDEN :1950 [...] Follow-Up Appointments 2024 11:00 AM EST Where: [place] [id number]- Medications What How Much When Instructions Unchanged amlodipine (amLODIPine 5 mg Tab) See instructions TAKE 1 TABLET BY MOUTH DAILY Pickup at [facility] [id number] Unchanged aspirin (aspirin 81 mg oral capsule) [...] physician if questions or concerns Pharmacy Information [facility] [id number]: [address] [place], [place] [id number] [phone] Allergies Dilaudid (Unknown) Problems Ongoing - Any [...] you for choosing us for your care. [facility] Medicine Office/Clinic Noteon 16-18-4990Dqtcpi Medicine Office/Clinic NoteFasaint joseph's hospital Medicine Office/Clinic Note Chief Complaint 6 month [...] DAILY, # 90 tab(s), Refills(s) 1, Pharmacy: [facility] [id number], 162, cm, 01/28/25 9:01:00 EDT, Height/Length Dosing, 78.1, kg, 01/28/25 9:01:00 EDT, Weight Dosing - 74-year-old female with a history of hypertension, chronic kidney disease, and bursitis presenting for management. - Hypertension is well-monitored with appropriate medicative support. - Chronic kidney disease requires continued diligence in management. - Bursitis is under treatment, affecting lifestyle and mobility. - Medication regimens f (more content not included)...[facility] - CincinnatiComment on above:Result Comment: Electronically Signed By: Amor SHORT, Anamaria Saldivar.kelly\Date and Time Signed: 01/28/25 09:32 EDTReminderson 13-05-3419Cpanqvhgx Reminders From: Matt Allen To: [facility] To: Matt Allen; Sent: 10/22/2024 09:32:36 EST Show up: 10/22/2024 09:31:00 EST Subject: RE: Ambulatory Reminder understands, and she said she is feeling a lot better than what she wasNormal [facility] HospitalRemindersReminderenedina From: Matt Allen To: [facility] - Clinical; Sent: 10/22/2024 08:07:37 EST Show up: 10/22/2024 08:07:00 EST Subject: Ambulatory Reminder Due Date/Time: 10/23/2024 08:06:00 EST urine culture was positive. she is on the correct antibiotic. continue that until it is gone. Is she feeling better? Results: Date Result Type Ind Result Name 10/19/2024 10:39 EST MBO POS Urine [facility]NoC[facility] Urineon 61-51-3475Sxfmbitj identified Cx Nom (U)Microbiology PROCEDURE: Urine Culture [...] Locations R1: This test was performed at: [facility], [address] [place] [address], [id number] , , EezdlbWoegrySelect Medical Specialty Hospital - CincinnatiComment on above:Performed By: #### [id number] #### [facility] [address] [place] [id number] CALCIUMon 41-50-8548Lswltbm [Mass/Vol]8.9 mg/dL8.5 - 10.1 mg/dLNOMS HealthcareCLINISYNCNOMS HealthcareFami Medicine Office/Clinic Noteon 41-54-5284Salcoh Medicine Office/Clinic NoteFamily Medicine Office/Clinic Note HPI [...] and her call the squad transferred to [facility] she did vomit a few times and [...] Assessment/Plan 1. Cat bite of lower leg (S81.499A: Open bite, unspecified lower leg, initial encounter) [...] her called 911 and was taken to [facility]. was hydrated with IV fluids and given [...] tendinitis, unspecified shoulder) pt was seen at [facility] ortho Dr. Keith to go [...] refusal pneumococcal 23-valent v (more content not included)...[facility] - CincinnatiComment on above:Result Comment: Electronically Signed By: Matt Allen\.br\Date and Time Signed: 09/17/24 11:46 [facility] ANAon 09-13-2024 KARLEE Pre No anaerobic growth after 48 hrs.[facility] County HospitalComment on above:Performed By: #### ANAC #### [address] [id number] Woundon 09-13-2024 Wound Final No growth at 48 hours.[facility] County HospitalComment on above: Performed By: #### WD #### [address] [address] Medicine Office/Clinic Noteon 39-26-3792Mowujv Medicine Office/Clinic NoteFasaint joseph's hospital Medicine Office/Clinic Note HPI Staff Isaura is a 74 year old female presenting with a cat bite on right ankle Onset: History of Present Illness Pt was bit 1-2 days before presenting to me. Seen in [facility] who started the patient [...] inactivated 05/17/2011 Recorded pneumococcal 23-valent vaccine 06/25/2008 RecordedSelect Medical Specialty Hospital - CincinnatiComment on above:Result Comment: Electronically Signed By: Anamaria Chinchilla MD\.br\Date and Time Signed: 09/11/24 12:15 ESTOR Trackon 42-40-8072Bsgpyyztn Received FromWVUMedicine Harrison Community HospitalComment on above:Performed By: #### Outreach Tracking Order #### [facility] [address] [place], [place] [address]Zttlcnkryp Visit Summaryon 31-63-2041Zrwvcbhqwa Visit Summary Ambulatory Visit Summary ISAURA HAYDEN [...] AM EDT With: Anamaria Chinchilla MD Where: [place] [address]- 2024 11:00 AM EST With: Where: [address] [address]- Medications What How Much When Instructions Unchanged [...] you for choosing us for your care. [facility] CincinnatiAmbulatory Visit Summaryon 04-94-7529Rfelipozgn Visit SummaryAmbulatory Visit Summary ISAURA HAYDEN :1950 [...] EDT With: Anamaria Chinchilla MD Where: [address] [id number]- 2024 11:00 AM EST With: Where: [address] [address]- Medications What How Much When Instructions Unchanged [...] you for choosing us for your care. [facility] Medicine Office/Clinic Noteon 18-51-4264Zeqafz Medicine Office/Clinic NoteFasaint joseph's hospital Medicine Office/Clinic Note Chief Complaint Pain HPI [...] work. Follow up PRN Ordered: A1c POC [address] [facility] [place]ulatory [...] Results Hgb A1c POC: 5.2 % (08/27/24 12:02:00)NormalOhiohealth Grove City Methodist HospitalComment on above:Result Comment: Electronically Signed By: Amor SHORT, Anamaria Saldivar.br\Date and Time Signed: 08/27/24 12:03 ESTCBC w/ Auto Diffon 03-46-0524Enjrvlkji/100 WBC (Bld)0.7 %Normal0.0-2.0[facility] City Methodist HospitalComment on above:Performed By: #### [id number] #### [facility] [address], [place] [address]Thmqntcit/Leukocytes Auto (Bld) [Pure # fraction]0.1 E9/LNormal 0.0-0.2[facility] Agnes HospitalComment on above:Performed By: #### [id number] #### [facility] [address], [place] [address]Jildpcttnex (Bld) [#/Vol]0.3 E9/LNormal0.0-0.5FOhioHealth Grove City Methodist HospitalComment on above:Performed By: #### [id number] #### [facility] [address], [place] [address]Gewkcbkkcxx/100 WBC (Bld)3.2 %Normal0.0-8.0[facility] City Methodist HospitalComment on above:Performed By: #### [id number] #### [facility] [address], [place] [address]Ggmhcrvujsf distribution width (RBC) [Ratio]13.7 %Normal 10.9-14.2FOhioHealth Grove City Methodist HospitalComment on above:Performed By: #### [id number] #### [facility] [address] [place] [address]Jddiaciver (Bld) [Volume fraction]36.1 %Dafwuc64.0-46.0[facility] City Methodist HospitalComment on above:Performed By: #### [id number] #### [facility] [address] [place] [address]Tfzhfpwlcz (Bld) [Mass/Vol]12.3 g/tWPudgbb37.0-16.0[facility] Methodist HospitalComment on above:Performed By: #### [id number] #### [facility] [address] [place] [address]Rbwkdbwnrve (Bld) [#/Vol]1.7 E9/LNormal1.0-4.0[facility] Methodist HospitalComment on above:Performed By: #### [id number] #### [facility] [address], [place] [address]Cgclekyhpsd/100 WBC (Bld)20.6 %Xahrlv50.0-50.0[facility] Methodist HospitalComment on above:Performed By: #### [id number] #### [facility] [address] [place] [address]NRG (RBC) [Entitic mass]33.6 dzXwhugg42.0-34.0[facility] Methodist HospitalComment on above:Performed By: #### [id number] #### [facility] [address] [place] [address]MKEJ (RBC) [Mass/Vol]34.1 g/xRRkovxp08.4-36.0[facility] Methodist HospitalComment on above:Performed By: #### [id number] #### [facility] [address] [place] [address]RLB (RBC) [Entitic vol]98.7 aUDlaozj82.0-100.0[facility] Methodist HospitalComment on above:Performed By: #### [id number] #### [facility] [address] [place] [address]Opronckvb (Bld) [#/Vol]0.6 E9/LNormal0.2-1.0[facility] Methodist HospitalComment on above:Performed By: #### [id number] #### [facility] [address] [place] [address]Eptnazdljuy (Bld) [#/Vol]5.8 E9/LNormal2.0-7.5FOhioHealth Grove City Methodist HospitalComment on above:Performed By: #### [id number] #### [facility] [address] [place] [address]Smbgmzrtbdj/100 WBC (Bld)68.8 %Gmngji45.0-75.0[facility] Methodist HospitalComment on above:Performed By: #### [id number] #### [facility] [address] [place] [address]Fwzchmpy142.0 E9/QLeahcz000.0-500.0[facility] Comment on above:Performed By: #### [id number] #### [facility] [address] [place] [address]Fqbnpdso mean volume (Bld) [Entitic vol]8.4 fLNormal6.4-10.8 [facility] Methodist HospitalComment on above:Performed By: #### [id number] #### [facility] [address], [place] [address]KHB (Bld) [#/Vol]3.7 E12/LLow4.3-5.9[facility] Comment on above:Performed By: #### [id number] #### [facility] [address], [place] [address]KGJ corrected for nucl RBC Auto (Bld) [#/Vol]8.5 E9/LNormal 4.0-11.0[facility] Methodist HospitalComment on above:Performed By: #### [id number] #### [facility] [address], [place] [address]YMQZCZLQMCmevxdj By: SYSTEM SYSTEM on - hydroxyvitamin D3 [Mass/Vol]36.9 ng/wKUbknjp70.0 - 100.0 ng/mLRemisol Chem Albumin [Mass/Vol]4.4 g/dLNormal3.3 - 5.0 gm/dLRemisol ChemAlbumin/Globulin [Mass ratio]1.6 {ratio}Normal1.1 - 2.2Remisol ChemALP [Catalytic activity/Vol]52 [iU]/rRznmgu62 - 98 Int._Unit/LRemisol ChemALT No additional P-5'-P [Catalytic activity/Vol]14 [iU]/dNormal6 - 46 Int._Unit/LRemisol ChemAnion gap [Moles/Vol] 11 mmol/LNormal6 - 16 mEq/LRemisol ChemAST [Catalytic activity/Vol]18 [iU]/d Normal5 - 43 Int._Unit/LRemisol ChemBilirubin [Mass/Vol]0.9 mg/dLNormal0.0 - 1.1 mg/dLRemisol ChemCalcium [Mass/Vol]8.9 mg/dLNormal8.9 - 11.1 mg/dLRemisol Chem Chloride [Moles/Vol]107 mmol/KRidfyw458 - 111 mmol/LRemisol ChemCholesterol [Mass/Vol]208 mg/jVUrcn410 - 200 mg/dLRemisol ChemCholesterol in HDL [Mass/Vol] 64 mg/dLInvalid Interpretation CodeRemisol ChemComment on above:Result Comment: '>= 60 LOW RISK' '<= 40 HIGH RISK'Cholesterol in LDL [Mass/Vol]104 mg/dLNormal<=129mg/dLRemisol ChemCholesterol in VLDL [Mass/Vol]36 mg/dLNormal7 - 40 mg/dLRemisol ChemCO2 [Moles/Vol]27 mmol/QDgbisi22 - 31 mmol/LRemisol ChemCobalamin (Vitamin B12) [Mass/Vol]253 pg/pZRbbprp82 - 1500 pg/mLRemisol ChemCreatinine [Mass/Vol]1.1 mg/dLNormal0.5 - 1.3 mg/dLRemisol KgynjOET62 mL/min/1.73 m2Low>=59mL/min/1.73 m2 Remisol ChemGlobulin (S) [Mass/Vol]2.8 g/dLNormal1.4 - 4.0 gm/dLRemisol Chem Glucose [Mass/Vol]105 mg/aUOovusz62 - 199 mg/dLRemisol ChemPotassium [Moles/Vol] 4.1 mmol/LNormal3.5 - 5.3 mmol/LRemisol ChemProtein [Mass/Vol]7.2 g/dLNormal6.0 - 7.8 gm/dLRemisol ChemSodium [Moles/Vol]141 mmol/EYehrks527 - 145 mmol/LRemisol ChemTriglyceride [Mass/Vol]182 mg/dLHigh<=149mg/dLRemisol ChemTSH Qn2.85 m[IU]/LNormal0.34 - 5.60 mcIU/mLRemisol ChemUrea nitrogen [Mass/Vol]15 mg/dL Normal5 - 21 mg/dLRemisol ChemUrea nitrogen/Creatinine [Mass ratio]14 mg/mg Linigv20 - 20Remisol ChemCHEMISTRYOrdered By: Nato Cheung on 08-09-2024 Albumin DL <= 20 mg/L (U) [Mass/Vol]mg/dLNormal0.0 - 1.9 mg/dLRemisol Chem Albumin/Creatinine DL <= 20 mg/L (U) [Mass ratio]NOT CALCULATEDInvalid Interpretation Code0.0 - 30.0Remisol ChemComment on above:Interpretive Data: 30- 300 mg/g Cr indicates an increased risk for diabetic nephropathy. >300 mg/g Cr is consistent with clinical nephropathy.U Xnblbuthiv334.3 mg/dL Invalid Interpretation CodeRemisol ChemCMPon 38-70-8164Ffwcyit [Mass/Vol]4.4 g/dLNormal3.3-5.0[facility] HospitalComment on above:Performed By: #### [id number] #### [facility] [address], [place] [address]Awicnew/Globulin (S) [Mass conc ratio]1.6Vrqqvk0.1-2.2FOhioHealth Grove City Methodist HospitalComment on above:Performed By: #### [id number] #### [facility] [address] [place] [address]IUI [Catalytic activity/Vol]52 Int._Unit/DWjjkkj67-52GhkaknOhiohealth Grove City Methodist HospitalComment on above:Performed By: #### [id number] #### [facility] [address], [place] [address]EMN No additional P-5'-P [Catalytic activity/Vol]14 Int._Unit/L Normal6-46[facility] HospitalComment on above:Performed By: #### [id number] #### [facility] [address] [place] [address] 259[address]Rkawx gap [Moles/Vol]11 mmol/LNormal6-16[facility] HospitalComment on above:Performed By: #### [id number] #### [facility] [address], [place] [address]BIP [Catalytic activity/Vol]18 Int._Unit/LNormal5-43[facility] HospitalComment on above:Performed By: #### [id number] #### [facility] [address] [place] [address]Dngptyiix [Mass/Vol]0.9 mg/dLNormal0.0-1.1FOhioHealth Grove City Methodist HospitalComment on above:Performed By: #### [id number] #### [facility] [address], [place] [address]Oayjotv [Mass/Vol]8.9 mg/dLNormal8.9-11.1FOhioHealth Grove City Methodist HospitalComment on above:Performed By: #### [id number] #### [facility] [address], [place] [address]Iomoajjz [Moles/Vol]107 mmol/RGcwdir930-514PwvwuuOhiohealth Grove City Methodist HospitalComment on above:Performed By: #### [id number] #### [facility] [address], [place] [address]CV9 [Moles/Vol]27 mmol/GVgldol19-06UkcbkhOhiohealth Grove City Methodist Hospital Comment on above:Performed By: #### [id number] #### [facility] [address], [place] [address]Qdmahaencc [Mass/Vol]1.1 mg/dLNormal0.5-1.3FOhioHealth Grove City Methodist HospitalComment on above:Performed By: #### [id number] #### [facility] [address], [place] [address]Moiagreq (S) [Mass/Vol]2.8 g/dLNormal1.4-4.0[facility] HospitalComment on above:Performed By: #### [id number] #### [facility] [address], [place] [address]Pcgbvte [Mass/Vol]105 mg/fNDvpohy71-915OflovqOhiohealth Grove City Methodist HospitalComment on above:Performed By: #### [id number] #### [facility] [address], [place] [address]Mduqwckyr [Moles/Vol]4.1 mmol/LNormal3.5-5.3FOhioHealth Grove City Methodist HospitalComment on above:Performed By: #### [id number] #### [facility] [address], [place] [address]Pwvqjbk [Mass/Vol]7.2 g/dLNormal6.0-7.8[facility] HospitalComment on above:Performed By: #### [id number] #### [facility] [address], [place] [address]Sgufut [Moles/Vol]141 mmol/PEemszc381-250WuknzcOhiohealth Grove City Methodist HospitalComment on above:Performed By: #### [id number] #### [facility] [address], [place] [address]Xanm nitrogen [Mass/Vol]15 mg/dLNormal5-21[facility] HospitalComment on above:Performed By: #### [id number] #### [facility] [address], [place] [address]Gpih nitrogen/Creatinine [Mass ratio]14 No NbcqcMffzhn58-12 [facility] HospitalComment on above:Performed By: #### [id number] #### [facility] [address], [place] [address]VVQGNLTQDJWvqycnb By: SYSTEM SYSTEM on 62-64-0437Mpfvhehbf/100 WBC (Bld)0.7 %Normal0.0 - 2.0 %Remisol HemeBasophils/Leukocytes Auto (Bld) [Pure # fraction]0.1 E9/LNormal0.0 - 0.2 E9/LRemisol HemeEosinophils (Bld) [#/Vol]0.3 E9/LNormal0.0 - 0.5 E9/LRemisol HemeEosinophils/100 WBC (Bld)3.2 %Normal0.0 - 8.0 %Remisol HemeErythrocyte distribution width (RBC) [Ratio]13.7 %Tncocq40.9 - 14.2 %Remisol HemeHematocrit (Bld) [Volume fraction]36.1 %Ryhbpd19.0 - 46.0 % Remisol HemeHemoglobin (Bld) [Mass/Vol]12.3 g/pWHkivxf98.0 - 16.0 gm/dLRemisol HemeLymphocytes (Bld) [#/Vol]1.7 E9/LNormal1.0 - 4.0 E9/LRemisol Heme Lymphocytes/100 WBC (Bld)20.6 %Llkgbg09.0 - 50.0 %Remisol HemeMCH (RBC) [Entitic mass]33.6 ycCiloyt72.0 - 34.0 pgRemisol HemeMCHC (RBC) [Mass/Vol]34.1 g/dL Iyxneq06.4 - 36.0 gm/dLRemisol HemeMCV (RBC) [Entitic vol]98.7 rEWxlpiv31.0 - 100.0 fLRemisol HemeMonocytes (Bld) [#/Vol]0.6 E9/LNormal0.2 - 1.0 E9/LRemisol HemeMonocytes/100 WBC (Bld)6.7 %Normal4.0 - 14.0 %Remisol HemeNeutrophils (Bld) [#/Vol]5.8 E9/LNormal2.0 - 7.5 E9/LRemisol HemeNeutrophils/100 WBC (Bld)68.8 % Ozppgd70.0 - 75.0 %Remisol QgjvEnketnep687.0 E9/CVpoave997.0 - 500.0 E9/LRemisol HemePlatelet mean volume (Bld) [Entitic vol]8.4 fLNormal6.4 - 10.8 fLRemisol HemeRBC (Bld) [#/Vol]3.7 E12/LLow4.3 - 5.9 E12/LRemisol HemeWBC corrected for nucl RBC Auto (Bld) [#/Vol]8.5 E9/LNormal4.0 - 11.0 E9/LRemisol HemeLipid Panel on 15-70-4330Peojzzejdtm [Mass/Vol]208 mg/qYXoin115-477HzjrhqOhiohealth Grove City Methodist HospitalComment on above:Performed By: #### [id number] #### [facility] [address], [place] [address]Cxtvzfokryx in HDL [Mass/Vol]64 mg/dLInvalid Interpretation CodeOhiohealth Grove City Methodist HospitalComment on above:Result Comment: '>= 60 LOW RISK' '<= 40 HIGH RISK'Performed By: #### [id number] #### [facility] [address], [place] [address]Utfgtluwffc in LDL [Mass/Vol]104 mg/dLNormal<=129[facility] HospitalComment on above:Performed By: #### [id number] #### [facility] [address], [place] [address]Lhsywxzdgio in VLDL [Mass/Vol]36 mg/dLNormal7-40[facility] HospitalComment on above:Performed By: #### [id number] #### [facility] [address], [place] [address]Rttavinlqllc [Mass/Vol]182 mg/dLHigh<=149[facility] HospitalComment on above:Performed By: #### [id number] #### [facility] [address], [place] [address]QXM With T4fr Reflexon 80-93-4054QIN Qn2.85 m[IU]/LNormal 0.34-5.60[facility] HospitalComment on above:Performed By: #### [id number] #### [facility] [address], [place] [address]C MA/Cr Ratioon 81-31-9095Qvnquek DL <= 20 mg/L (U) [Mass/Vol] mg/dLNormal0.0-1.9[facility] HospitalComment on above:Performed By: #### [id number] #### [facility] [address], [place] [address]Orowgvu/Creatinine DL <= 20 mg/L (U) [Mass ratio]NOT CALCULATED Invalid Interpretation Code.0-30.0[facility] HospitalComment on above: Result Comment: 30-300 mg/g Cr indicates an increased risk for diabetic nephropathy. >300 mg/g Cr is consistent with clinical nephropathy.Performed By: #### [id number] #### [facility] [address], [place] [address]U Jrjwrzcffs919.3 mg/dLInvalid Interpretation CodeOhiohealth Grove City Methodist HospitalComment on above:Performed By: #### [id number] #### [facility] [address], [place] [address]Zxt B12on 58-80-3040Rtjzyvzri (Vitamin B12) [Mass/Vol]253 pg/mL Datzap70-3246UqxfjmOhiohealth Grove City Methodist HospitalComment on above:Performed By: #### [id number] #### [facility] [address], [place] [address]Efqoqvc D 25 Hydroxyon 01-26-572576983465-mmmovoimlcrjni D3 [Mass/Vol]36.9 ng/hPSiqvjv82.0-100.0[facility] HospitalComment on above: Performed By: #### [id number] #### [facility] [address], [place] [address]rSXSgk 59-20-5659wBAW49 mL/min/1.73 m2Low>=59[facility] Methodist HospitalComment on above:Performed By: #### [id number] #### [facility] [address], [place] [address]Vaanejmjcl Visit Summaryon 71-13-5183Uyyvgjhxmt Visit Summary Ambulatory Visit Summary ISAURA HAYDEN [...] 2023 8:40 AM EST With: Where: [address] [address]- Tuesday 8:45 AM EDT With: Amor SHORT, Anamaria Harvey Where: [address] [address]- 2024 11:00 AM EST With: Where: [address] [address]- You Need to Complete the Following CBC [...] pain, right Hypercholesterolemia Hyperlipidemia (more content not included)...[facility] Family Medicine Office/Clinic Noteon 54-37-8706Ytcgvn Medicine Office/Clinic NoteFasaint joseph's hospital Medicine Office/Clinic Note Chief Complaint Subsequent Medicare [...] : Living will, 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 Location of Advance Directive : Family to [...] Randall Martha Chaidez - (more content not included)...[facility] - CincinnatiComment on above:Result Comment: Electronically Signed By: Anamaria Chinchilla MD\.br\Date and Time Signed: 08/07/24 10:44 EST\.br\Electronically Co-Signed By: Martha Pereira\.br\Date and Time Co-Signed: 07/30/24 12:56 ESTAmbulatory Visit Summaryon 08-58-2622Ypwcmydcqk Visit SummaryAmbulatory Visit Summary ISAURA HAYDEN :1950 [...] Appointments 2023 8:40 AM EST With: Where: [facility] [address] [address]- Tuesday 8:45 AM EDT With: Amor SHORT, Anamaria Harvey Where: [address] [address]- 2024 11:00 AM EST With: Where: [address] [address]- You Need to Complete the Following CBC [...] Chronic cough Duration: 7 Days Pickup at [facility] [id number] Unchanged amlodipine (amLODIPine 5 mg Tab) See [...] polyunsaturated fatty a (more content not included)...Normal [facility] HospitalAmbulatory Visit SummaryAmbulatory Visit Summary ISAURA HAYDEN [...] 2023 8:40 AM EST With: Where: [address] [address]- Tuesday 8:45 AM EDT With: Amor SHORT, Anamaria Harvey Where: [address] 7000511- 2024 11:00 AM EST With: Where: [address] [address]- You Need to Complete the [...] Chronic cough Duration: 7 Days Pickup at [facility] [id number] Unchanged amlodipine (amLODIPine 5 mg Tab) See [...] polyunsaturated fatty a (more content not included)...Normal [facility] Medicine Office/Clinic Noteon 88-11-7635Fhrpfk Medicine Office/Clinic NoteFasaint joseph's hospital Medicine Office/Clinic Note Chief Complaint The patient [...] humorously by the physician as looking like Guinean cheese on X-rays. She uses a bone [...] # 21 cap(s), Refills(s) 0, Pharmacy: [facility] [id number], 162, cm, 07/30/24 10:07:00 EST, Height/Length Dosing, 75.8, kg, 07/30/24 10:07:00EST, Weight Dosing CBC w/ Auto Diff TSH With T4fr Reflex Vitamin B12 Level Vitamin D 25 Hydroxy 2. Hypercholesterolemia (E78.00: Pure hypercholesterolemia, unspecified) As below. Ordered: benzonatate, 200 mg = 1 cap(s), Oral, TID, X 7 day(s), # 21 cap(s), Refills(s) 0, Pharmacy: [facility] [id number], 162, cm, 07/30/24 10:07:00 EST, Height/Length Dosing, 75.8, kg, 07/30/24 10:07:00EST, Weight Dosing CBC w/ Auto Diff TSH With T4fr Reflex Vitamin B12 Level Vitamin D 25 Hydroxy 3. Hyperlipidemia (E78.5: Hyperlipidemia, unspecified) Continue on a statin as before. Ordered: benzonatate, 200 mg = 1 cap(s), Oral, TID, X 7 day(s), # 21 cap(s), Refills(s) 0, Pharmacy: [facility] [id number], 162, cm, 07/30/24 10:07:00 EST, Height/Length Dosing, [...] # 21 cap(s), Refills(s) 0, Pharmacy: [facility] [id number], 162, cm, 07/30/24 10:07:00 EST, Height/Length Dosing, 75.8, kg, 07/30/24 10:07:00EST, Weight Dosing CBC w/ Auto Diff Comprehensive Metab (more content not included)...NormalFisher Socorro Medical CenterComment on above:Result Comment: Electronically Signed By: Anamaria Chinchilla MD\.br\Date and Time Signed: 07/30/24 12:21 ESTPre-Visit Planningon 07-30-2024 Pre-Visit PlanningPre-Visit Planning From: Benita MENJIVAR, Daly To: Anamaria [...] feel free to contact me at extension [phone]. Thank you! Daly Joy, ALEXN, RN, CCM, CCDS, CCDS-O CDI Sales Correspondent [address] [address] P: [phone] F: [phone] [email or web address] From: Anamaria Chinchilla MD To: Benita MENJIVAR, Daly; Sent: 07/30/2024 15:17:44 EST Subject: RE: Pre-Visit Planning Caller Name: ISAURA HAYDEN; Caller Number: Adrian , Farzana I could not address this today. [facility] Office/Clinic Noteon 88-61-6046Hvynlb Medicine Office/Clinic NoteState Reform [facility] Medicine Office/Clinic Note HPI Staff Isaura is [...] in 3-5 days Ordered: Rapid Strep POC 90787 Follow-up No qualifying data available Patient Education Pharyngitis, Izfc-pt-Cvjj Problem List/Past Medical History Ongoing Age-related osteoporosis [...] Results Rapid Strep POC Result: Negative (07/13/24 11:52:00)[facility] CincinnatiComment on above:Result Comment: Electronically Signed By: GISELLA MORAN, VIPUL Rosario\.br\Date and Time Signed: 07/13/24 11:55 [facility] Urineon 05-09-2024 Bacteria identified Cx Nom (U)Microbiology [...] Locations R1: This test was performed at: [facility], [address] [place] [address], [address]- , , PtvjjuJkqivySelect Medical Specialty Hospital - CincinnatiComment on above:Performed By: #### [id number] #### [facility] [address] [place] [address]Jjvkeomaxo Visit Summaryon 23-48-0951Gcuqfoghod Visit Summary Ambulatory Visit Summary ISAURA HAYDEN [...] AM EST With: Anamaria Chinchilla MD Where: [address] [address]- Tuesday 11:00 AM EST With: Where: [address] [address]- Medications What How Much When Instructions Unchanged [...] you for choosing us for your care. [facility] Medicine Office/Clinic Notejustin 32-57-8532Eksdnx Medicine Office/Clinic NoteState Reform [facility] Medicine Office/Clinic Note HPI Staff Isaura is [...] day(s), # 14 cap(s), Refills(s) 0, Pharmacy: [facility] [id number], 162, cm, 05/07/24 14:07:00 EDT, Height/Length Dosing, 76, kg, 05/07/24 14:07:00 EDT, Weight Dosing Body Mass Index (BMI) documented 3008F Current tobacco non-user 1036F Depression Screening Negative 3352F E&M of Est. Patient Low 20-29 Min 88120 Influenza immunization status assessed 1030F Medication list [...] Urnls Dip Stick Auto w/o Microscopy POC 95860 2. Non-smoker (Z78.9: Other specified health status) - Please continue to not smoke Ordered: doxycycline, 100 mg = 1 cap(s), Oral, BID, X 7 day(s), # 14 cap(s), Refills(s) 0, Pharmacy: [facility] [id number], 162, cm, 05/07/24 14:07:00 EDT, Height/Length Dosing, 76, kg, 05/07/24 14:07:00 EDT, Weight Dosing Body Mass Index (BMI) documented 3008F Current tobacco non-user 1036F Depression Screening Negative 3352F E&M of Est. Patient Low 20-29 Min 10968 Influenza immunization status assessed 1030F Medication list [...] day(s), # 14 cap(s), Refills(s) 0, Pharmacy: [facility] [id number], 162, cm, 05/07/24 14:07:00 EDT, Height/Length Dosing, 76, kg, 05/07/24 14:07:00 EDT, Weight Dosing Body Mass Index (BMI) documented 3008F Current tobacco non-user 1036F Depression Screening Negative 3352F E&M of Est. Patient Low 20-29 Min 27456 Influenza immunization status assessed 1030F Medication list [...] day(s), # 14 cap(s), Refills(s) 0, Pharmacy: [facility] [id number], 162, cm, 05/07/24 14:07:00 EDT, Height/Length Dosing, 76, kg, 05/07/24 14:07:00 EDT, Weight Dosing Body Mass Index (BMI) documented 3008F Current tobacco non-user 1036F Depression Screening Negative 3352F E&M of Est. Patient Low 20-29 Min 96725 Influenza immunization status assessed 1030F Medication list [...] with stage 3a (more content not included)...Normal [facility] HospitalComment on above:Result Comment: Electronically Signed By: Amor SHORT, Anamaria Saldivar.br\Date and Time Signed: 05/07/24 14:35 EDTDexa Scanson 59-05-3866Wyjl [id number]#1.00TIFF [facility] CincinnatiConsultation Noteon 98-68-4225Otlogndqlsty Note [id number]#1.00TIFFNotanishaOnslow Memorial Hospitaler [facility] MISGood [facility] 11-23-8996PER - MISC [id number]#1.00TIFGenesis HospitalRAD [id number]#1.00TIFGenesis HospitalConsultation Noteon 39-48-6655Hogtwkrosgtf Note [id number]#1.00TIFGenesis HospitalConsultation Noteon 37-85-5431Hzlcwjzehbiw Note [id number]#1.00TIFGlenbeigh Hospital 55-24-6878OZX - [facility] [id number]#1.00TIFSelect Medical Specialty [facility] [place] [id number]#1.00TIFGenesis HospitalConsultation Noteon 29-88-5172Bgatulgyqqyj Note [id number]#1.00TIFGenesis HospitalConsultation Noteon 92-08-4418Mkidithtfbop Note [id number]#1.00TIFGenesis HospitalDischarge Documentationon 42-19-6247Aehbmvfel Documentation [id number]#1.00TIFGenesis HospitalCytologyon 83-18-0853BxhbkgysLelvfcDaiTavehl Toledo HospitalComment on above:Result Comment: [employer] [facility] [address] [place] [address] Cytology Consultation Patient Name:ISAURA HAYDEN:1950 (Age: 73)Gender:FTaken:11/14/2023eported:414:25Physician(s):Nabil Lord M.D. ([phone])Copy To: Rec. #:[id number]: #[id number] Final Cytologic Diagnosis Pelvic washings: No malignant cells identified. nsk/11/16/2023 Interpretation performed at [facility], [address] [place] [address], License number: [id number].Electronically Signed Out By Edie Day MD Clinical History Thickened endometrium/ post menopausal bleeding/ cervical stenosis. Gross Description Received was 35mL of clear colorless fluid unfixed labeled as Catracho, pelvic washings . CytoLyt added in lab. Unable to obtain cellblock, ThinPrep made. 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 ([phone])Copy To: Rec. #:[id number]: #[id number] Final Pathologic Diagnosis Uterus, cervix, bilateral fallopian tubes, bilateral ovaries, TAHBSO: Cervix with no significant histopathologic abnormality Endometrium with cystic atrophy Myometrium with adenomyosis Bilateral adnexa with no significant histopathologic abnormality Report Electronically Signed Out nsk/27/2024Edie Day MD Interpretation performed at [facility], [address] [place] [address], License number: [id number]. Clinical History Thickened endometrium, postmenopausal bleeding, cervical [...] ovary L-N Remainder of endometrium (14, ss, E79-88654, A- K, m6) MONICO/MD kilgore/11/14/2023GR Specimen(s) Received Uterus, cervix, bilateral fallopian tubes, bilateral ovaries Fee Codes(s): 1; 88666Ozwexnfrycjk Noteon 27-31-3915Idozsfeurcyz Note [id number]#1.00TIFFNoalOhiohealth Grove City Methodist HospitalCBC AND AUTO DIFFon 25-05-4715DBGRXUHR BASOPHIL0.1 X10E9/LNormal0.0-0.2 [facility] Children's HospitalComment on above:Performed By: #### CBCA, CMP #### [facility] ([id number]) [address] [place] [address], [address] [place], [place] [address]JAVCNCDV NEUTROPHIL3.1 X10E9/LNormal1.5-6.6Day[facility] Children's HospitalComment on above:Performed By: #### CBCA, CMP #### [facility] ([id number]) [address] [place] [address], [address] [place], [place] [address]Ugdcigver/100 WBC (Bld)0.9 %NormalProMethodist Texsan Hospital Comment on above:Performed By: #### CBCA, CMP #### [facility] ([id number]) [address] [place] [address], [address] [place], [place] [address]Gdbpnwjvtwa (Bld) [#/Vol]0.2 10*3/uLNormal0.0-0.4Day[facility] Children's HospitalComment on above:Performed By: #### CBCA, CMP #### [facility] ([id number]) [address], [address] [place], [place] [address]Jjxuodflwke/100 WBC (Bld)4.3 %NormalDayton Children's Hospital Comment on above:Performed By: #### CBCA, CMP #### [facility] ([id number]) [address], [address] [place], [place] [address]Hkovtrlebwi distribution width (RBC) [Ratio]13.1 %Normal 11.5-15.0Day[facility] Children's HospitalComment on above:Performed By: #### CBCA, CMP #### [facility] ([id number]) [address], [address] [place], [place] [address]Kyqiykhthj (Bld) [Volume fraction]35.6 %Zlzxlc95-16PisSjzdwiMethodist Texsan HospitalComment on above:Performed By: #### CBCA, CMP #### [facility] ([id number]) [address], [address] [place], [place] [address]Nozoxccmbd (Bld) [Mass/Vol]12.4 g/lFWdcaji41.7-15.5PCleveland Clinic Fairview HospitalComment on above:Performed By: #### CBCA, CMP #### [facility] ([id number]) [address], [address] [place], [place] [address]Vveacieytuh (Bld) [#/Vol]1.7 10*3/uLNormal1.0-3.5PCleveland Clinic Fairview HospitalComment on above:Performed By: #### CBCA, CMP #### [facility] ([id number]) [address], [address] [place], [place] [address]Ksdhopadyzs/100 WBC (Bld)31.2 %NormalDayton Children's Hospital Comment on above:Performed By: #### CBCA, CMP #### [facility] ([id number]) [address], [address] [place], [place] [address]PTJ (RBC) [Entitic mass]33.3 prUgbeus57-97TzaGbyhpqDayton Children's HospitalComment on above:Performed By: #### CBCA, CMP #### [facility] ([id number]) [address], [address] [place], [place] [address]ZGRV (RBC) [Mass/Vol]34.7 g/yNJjyhni76-18KfmSmkjbfMethodist Texsan HospitalComment on above:Performed By: #### CBCA, CMP #### [facility] ([id number]) [address], [address] [place], [place] [address]CHN (RBC) [Entitic vol]96 yLKsfhrv95-798ZtsIpcyqoDayton Children's HospitalComment on above:Performed By: #### CBCA, CMP #### [facility] ([id number]) [address], [address] [place], [place] [address]Fnfxdqpiy (Bld) [#/Vol]0.5 10*3/uLNormal0-0.9[facility] Children's HospitalComment on above:Performed By: #### CBCA, CMP #### [facility] ([id number]) [address], [address] [place], [place] [address]Fmmgdopqb/100 WBC (Bld)8.2 %[facility] Comment on above:Performed By: #### CBCA, CMP #### [facility] ([id number]) [address], [address] [place], [place] [address]Nntszhmscbi/100 WBC (Bld)55.4 %[facility] Comment on above:Performed By: #### CBCA, CMP #### [facility] ([id number]) [address], [address] [place], [place] [address]Apfigksp mean volume (Bld) [Entitic vol]8.2 fLNormal7-12 [facility]'s HospitalComment on above:Performed By: #### CBCA, CMP #### [facility] ([id number]) [address], [address] [place], [place] [address]Lxteonmnw (Bld) [#/Vol]284 10*3/iOPecayr586-141FcwIujwhd Fremont HospitalComment on above:Performed By: #### CBCA, CMP #### [facility] ([id number]) [address], [address] [place], [place] [address]EXA COUNT3.72 X10E12/LLow3.80-5.20[facility] on above:Performed By: #### CBCMarlene, CMP #### [facility] ([id number]) [address] [facility], [address] [place], [place] [address]WNY (Bld) [#/Vol]5.6 10*3/uLNormal4.0-11.0ProMethodist Texsan HospitalComment on above:Performed By: #### CBCMarlene, CMP #### [facility] ([id number]) [address], [address] [place], [place] [address]OHCSDSXKYCWNS METABOLIC PANELon 10-57-4626Xfeywrt [Mass/Vol]4.5 g/dLNormal3.2-5.3PCleveland Clinic Fairview HospitalComment on above:Performed By: #### CBCMarlene, CMP #### [facility] ([id number]) [address], [address] [place], [place] [address]NKJ [Catalytic activity/Vol]48 U/RGwjdfr09-941IqjYldjhiMethodist Texsan HospitalComment on above:Performed By: #### CBCA, CMP #### [facility] ([id number]) [address], [address] [place], [place] [address]BEZ [Catalytic activity/Vol]14 U/LNormal0-31PCleveland Clinic Fairview HospitalComment on above:Performed By: #### CBCA, CMP #### [facility] ([id number]) [address], [address] [place], [place] [address]Ihwzx gap [Moles/Vol]9 mmol/LNormal5-15ProMethodist Texsan HospitalComment on above:Performed By: #### CBCMarlene, CMP #### [facility] ([id number]) [address], [address] [place], [place] [address]LKG [Catalytic activity/Vol]20 U/LNormal0-41ProMethodist Texsan HospitalComment on above:Performed By: #### CBCMarlene, CMP #### [facility] ([id number]) [address], [address] [place], [place] [address]Hfrhvcxhi [Mass/Vol]0.5 mg/dLNormal0.3-1.2PCleveland Clinic Fairview HospitalComment on above:Performed By: #### CBCMarlene, CMP #### [facility] ([id number]) [address], [address] [place], [place] [address]Ddpdsgi [Mass/Vol]9.2 mg/dLNormal8.5-10.5PCleveland Clinic Fairview HospitalComment on above:Performed By: #### CBCMarlene, CMP #### [facility] ([id number]) [address], [address] [place], [place] [address]Xbmocvtl [Moles/Vol]106 mmol/EDypzbg46-770ZcbZyswpgMethodist Texsan HospitalComment on above:Performed By: #### CBCA, CMP #### [facility] ([id number]) [address], [address] [place], [place] [address]KJ4 [Moles/Vol]28 mmol/ABrxrvy52-27ZdeQdpgqpCleveland Clinic Fairview Hospital Comment on above:Performed By: #### CBCA, CMP #### [facility] ([id number]) [address], [address] [place], [place] [address]Oprrowfwis [Mass/Vol]1.17 mg/dLHigh0.40-1.00[facility] Children's HospitalComment on above:Result Comment: METHOD TRACEABLE TO IDMS STANDARD Performed By: #### PAT, CMP #### [facility] ([id number]) [address], [address] [place], [place] [address]VXJ/1.73 sq M.predicted among non-blacks MDRD (S/P/Bld) [Vol rate/Area]50 mL/min/{1.73_m2}Low>59ProMethodist Texsan HospitalComment on above: Result Comment: Reported eGFR is based on the CKD-EPI 1 equation that does not use a race coefficient.Performed By: #### PAT, CMP #### [facility] ([id number]) [address], [address] [place], [place] [address]Hrvaxkh [Mass/Vol]110 mg/rSWgqm57-10StsPbtgotMethodist Texsan Hospital Comment on above:Performed By: #### PAT, CMP #### [facility] ([id number]) [address], [address] [place], [place] [address]Rcbnxxqmh [Moles/Vol]4.1 mmol/LNormal3.5-5.0Day[facility] Children's HospitalComment on above:Performed By: #### PAT, CMP #### [facility] ([id number]) [address] [address] [place], [place] [address]Zdibrqz [Mass/Vol]7.2 g/dLNormal6.0-8.0ProMethodist Texsan HospitalComment on above:Performed By: #### CBCMarlene, CMP #### [facility] ([id number]) [address], [address] [place], [place] [address]Zmawff [Moles/Vol]143 mmol/HEblyqz546-227UkyKjpoic Fremont HospitalComment on above:Performed By: #### CBCA, CMP #### [facility] ([id number]) [address], [address] [place], [place] [address]Xhgu nitrogen [Mass/Vol]18 mg/dLNormal5-27Day[facility] Children's HospitalComment on above:Performed By: #### CBCA, CMP #### [facility] ([id number]) [address] [facility], [address] [place], [place] [address]OI CHEST 2 VWSon 94-59-5666BP CHEST 2 VWSXR CHEST 2 VWS History: Preop testing Exam/Technique: PA and lateral chest Comparison: None Findings: There is no evidence of active pulmonary or pleural disease. Cardiac and mediastinal contours are within normal limits. IMPRESSION: No evidence of active pulmonary disease demonstrated. Finalized by Lewis Lyn MD on 11/09/2023 10:52 AMNormalDayton Children's HospitalConsultation Noteon 79-81-7166Tqldaaoisnrf Note [id number]#1.00TIFFSelect Medical Specialty Hospital - CincinnatiUS PELVIS W/ TRANSVAGINALon 81-34-9939[place] [address] Ultrasound Report Signed Patient: ISAURA HAYDEN MR#: [id number] : 1950 Acct:[id number] Age/Sex: 73 / F ADM Date: 10/17/23 Loc: US Attending Dr: Diane Winslow Ordering Physician: Diane Winslow Date of Service: 10/17/23 Procedure(s): US pelvis w/ transvaginal Accession Number(s): [id number] cc: Diane Winslow; ANAMARIA CHINCHILLA [place] [id number] Patient Name: ISAURA HAYDEN MRN: [id number] date: 1950 Sex: F Assigned Patient Location: US Current Patient Location: [facility] Accession/Order Number: [id number] Exam Date: 10/17/2023 08:55 Report Date: 10/17/2023 [...] Signed By: 10/17/23 1012 DD/ 1010 TD/TT: Land Survey Technician:TBHRadiology, Radiologist, - 10/17/2023 [place] [address] Ultrasound Report Signed Patient: ISAURA HAYDEN MR#: [id number] : 1950 Acct:[id number] Age/Sex: 73 / F ADM Date: 10/17/23 Loc: US Attending Dr: Diane Winslow Ordering Physician: Diane Winslow Date of Service: 10/17/23 Procedure(s): US pelvis w/ transvaginal Accession Number(s): [id number] cc: Diane Winslow; ANAMARIA CHINCHILLA The [address] [address] Patient Name: ISAURA HAYDEN MRN: [id number] date: 1950 Sex: F Assigned Patient Location: US Current Patient Location: INF Accession/Order Number: [id number] Exam Date: 10/17/2023 08:55 Report Date: 10/17/2023 [...] Signed By: 10/17/23 1012 DD/ 1010 TD/TT: Land Survey Technician: RAYSA MAZRadiology Study observation (narrative)[employer] PELVIS W/ TRANSVAGINALOrdered By: Radiologist Radiology on 19-63-3966[facility] Work Phone: consultation Noteon 18-56-2180Igqhdgakwlvn Note [id number]#1.00TIFGenesis HospitalRAD - MISCon 25-77-6079FVV - MISC [id number]#1.00TIFGenesis HospitalConsultation Noteon 37-23-6954Cnkynxkduung Note [id number]#1.00TIFGenesis HospitalConsultation Noteon 20-48-1892Hshcqbyungpe Note [id number]#1.00Cleveland ClinicDexa Scanson 67-64-2435Itkk Scans [id number]#1.00Cleveland ClinicConsultation Noteon 10-87-4144Ftezwcqzgyqz Note [id number]#1.00Cleveland ClinicPatient Logson 63-30-5155Tlsmsrg Logs [id number]#1.00TIFFNormalOhiohealth Grove City Methodist HospitalAmbulatory Visit Summaryon 56-48-7083Qjgifjpagr Visit Summary ISAURA HAYDEN :1950 Visit Date:09/01/2023 [...] AM EST With: Anamaria Chinchilla MD Where: [facility] [place] [id number]- \.br\ Medications\.br\ What How Much When Instructions\.br\ [...] for choosing us for your care.\.br\ \.br\[facility] Consultation Noteon 40-36-2519Hhkalyiqxiao Note [id number]#1.00TIFFNormalFormerly Hoots Memorial Hospitalyazmin [facility] Medicine Office/Clinic Noteon 06-45-2249Qsaxzj Medicine Office/Clinic NoteChief Complaint high blood pressure [...] 96.3 fL (05/11/23) Chloride: 108 mmol/L (05/11/23) [place] Absolute: 0.4 E9/L (05/11/23) CO2: 27 mmol/L (05/11/23) [place] Auto: 7.8 % (05/11/23) Creatinine: 1.3 mg/dL [...] Medical History Ongoing Ag (more content not included)...[facility] Hospital - CincinnatiComment on above:Result Comment: Electronically Signed By: VIPUL OBANDO CNP\.kelly\Date and Time Signed: 09/01/23 13:24 ESTPatient Educationon 71-03-5345Zgnuabz EducationNutrition DASH Eating Plan DASH stands for [...] condiments Herbs. Spices. Seasoni (more content not included)...[facility] Hospital - CincinnatiConsultation Noteon 06-55-8914Euiqyuwntqjm Note [id number]#1.00TIFGenesis HospitalRAD - CT Reporton 49-23-2368VSO - CT Report [id number]#1.00Cleveland ClinicOperative Reporton 44-61-9230Bzmtdhesj Report [id number]#1.00Cleveland ClinicPatient Correspondenceon 06-00-7547Rigtmfd Correspondence [id number]#1.00Cleveland ClinicProvider Letteron 16-22-1180Bksxvqqw Letter [address] [place] [address] August 12, 2023 ISAURA HAYDEN [address] [address] : [address] Das, The above patient has been evaluated at your request for preoperative clearance. After assessment of available pertinent labs and diagnostic tests, I feel this patient is medicallyoptimized for surgery. Final discretion of whether the patient is cleared for surgery remains up tothe surgeon/anesthesiologist. Thank you, DOTTY Vásquez-MILANKindred HealthcareAmbulatory Visit Summaryon 22-37-5084Oriaufdzxf Visit Summary CATRACHO ISAURA L :1950 Visit [...] AM EST With: Anamaria Chinchilla MD Where: [facility] [place] [id number]- \.br\ Medications\.br\ What How Much When Instructions\.br\ [...] you for choosing us for your care.\.br\ \.br\[facility] Medicine Office/Clinic Notejustin 93-77-2948Gxanab Medicine Office/Clinic NoteCEN[facility]AL [facility] Staff Isaura is a 73 [...] inactivated 05/17/2011 Recorded pneumococcal 23-valent vaccine 06/25/2008 RecordedNoLima City HospitalComment on above:Result Comment: Electronically Signed By: Amor SHORT, Anamaria Saldivar.br\Date and Time Signed: 08/11/23 12:57 EITAN 12-LEADon 33-78-9591[place] [address] Electrocardiograph Report Signed Patient: ISAURA HAYDEN MR#: [id number] : 1950 Acct:[id number] Age/Sex: 73 / F ADM Date: 08/05/23 Loc: PST Attending Dr: Bentley Das D.O. Ordering Physician: Bentley Das D.O. 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 Signed By: 08/07/23 1647 DD/ 0940 TD/TT: Land Survey Technician:TBHRadiology, Radiologist, MD - 08/07/2023 [place] [address] Electrocardiograph Report Signed Patient: ISAURA HAYDEN MR#: [id number] : 1950 Acct:[id number] Age/Sex: 73 / F ADM Date: 08/05/23 Loc: PST Attending Dr: Bentley Das D.O. Ordering Physician: Bentley Das D.O. 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 Signed By: 08/07/23 1647 DD/ 0940 TD/TT: Land Survey Technician: [facility] CENTERDynamic SignalECG 12-LEADOrdered By: Radiologist Radiology on 11-04-0058KMJE MAZ Work Phone: ECL 12-LEADon 63-44-4860Xpgkkobgo Study observation (narrative)[facility] HealthcareCHEMISTRYOrdered By: SYSTEM SYSTEM on 05-11-2023 Albumin [Mass/Vol]4.3 g/dLNormal3.3 - 5.0 gm/dLFTMC RemisolAlbumin/Globulin [Mass ratio]1.3 {ratio}Normal1.1 - 2.2FTMC RemisolALP [Catalytic activity/Vol]46 [iU]/hOcgrby14 - 98 Int._Unit/LFTMC RemisolALT No additional P-5'-P [Catalytic activity/Vol]16 [iU]/dNormal6 - 46 Int._Unit/LFTMC RemisolAmylase [Catalytic activity/Vol]74 U/YFavgya02 - 157 unit/LFTMC RemisolAnion gap [Moles/Vol]10 mmol/LNormal6 - 16 mEq/LFTMC RemisolAST [Catalytic activity/Vol]23 [iU]/dNormal5 - 43 Int._Unit/LFTMC RemisolBilirubin [Mass/Vol]0.6 mg/dLNormal0.0 - 1.1 mg/dL [facility] RemisolCalcium [Mass/Vol]9.5 mg/dLNormal8.9 - 11.1 mg/dLFTMC Remisol Chloride [Moles/Vol]108 mmol/UYbtkhw209 - 111 mmol/LFTMC RemisolCO2 [Moles/Vol] 27 mmol/MOfjmnq49 - 31 mmol/LFTMC RemisolCreatinine [Mass/Vol]1.3 mg/dLNormal0.5 - 1.3 mg/dLFTMC RemisolGFR/1.73 sq M.predicted among non-blacks MDRD (S/P/Bld) [Vol rate/Area]44 mL/min/1.73 m2Low>=59mL/min/1.73 m2FTMC Chem SGlobulin (S) [Mass/Vol]3.2 g/dLNormal1.4 - 4.0 gm/dLFTMC RemisolGlucose [Mass/Vol]93 mg/dL Jsjyna03 - 199 mg/dLFTMC RemisolLipase [Catalytic activity/Vol]46 U/IUvgkae75 - 58 unit/LFTMC RemisolPotassium [Moles/Vol]4.3 mmol/LNormal3.5 - 5.3 mmol/LFTMC RemisolProtein [Mass/Vol]7.5 g/dLNormal6.0 - 7.8 gm/dLFTMC RemisolSodium [Moles/Vol]141 mmol/EXgugor447 - 145 mmol/LFTMC RemisolUrea nitrogen [Mass/Vol] 21 mg/dLNormal5 - 21 mg/dLFTMC RemisolUrea nitrogen/Creatinine [Mass ratio]16 mg/glSlgqvn59 - 20FTMC RemisolHEMATOLOGYOrdered By: SYSTEM SYSTEM on 05-11-2023 Basophils/100 WBC (Bld)0.8 %Normal0.0 - 2.0 %[facility] HemeAutoSSBasophils/Leukocytes Auto (Bld) [Pure # fraction]0.0 E9/LNormal0.0 - 0.2 E9/LFTMC HemeAutoSS Eosinophils/100 WBC (Bld)5.2 %Normal0.0 - 8.0 %[facility] HemeAutoSS Eosinophils/Leukocytes Auto (Bld) [Pure # fraction]0.3 E9/LNormal0.0 - 0.5 E9/L [facility] HemeAutoSSLymphocytes/100 WBC (Bld)31.3 %Fmsmve13.0 - 50.0 %[facility] HemeAutoSS Lymphocytes/Leukocytes Auto (Bld) [Pure # fraction]1.8 E9/LNormal1.0 - 4.0 E9/L [facility] HemeAutoSSMonocytes/100 WBC (Bld)7.8 %Normal4.0 - 14.0 %[facility] HemeAutoSS Monocytes/Leukocytes Auto (Bld) [Pure # fraction]0.4 E9/LNormal0.2 - 1.0 E9/L [facility] HemeAutoSSNeutrophils/100 WBC (Bld)54.9 %Yovahu52.0 - 75.0 %[facility] HemeAutoSS Neutrophils/Leukocytes Auto (Bld) [Pure # fraction]3.1 E9/LNormal2.0 - 7.5 E9/L [facility] HemeAutoSSHEMATOLOGYOrdered By: Nato Cheung on 59-50-0398Xrraddwgrgr distribution width (RBC) [Ratio]12.9 %Wphiya65.9 - 14.2 %[facility] HemeAutoSS Hematocrit (Bld) [Volume fraction]34.9 %Lwxvxi41.0 - 46.0 %[facility] HemeAutoSS Hemoglobin (Bld) [Mass/Vol]11.8 g/dLLow12.0 - 16.0 gm/dLFTMC HemeAutoSSMCH (RBC) [Entitic mass]32.6 wvWldmxa96.0 - 34.0 pgFTMC HemeAutoSSMCHC (RBC) [Mass/Vol] 33.9 g/yXSvjnbx82.4 - 36.0 gm/dLFTMC HemeAutoSSMCV (RBC) [Entitic vol]96.3 fL Sftrjs25.0 - 100.0 fLFTMC HemeAutoSSPlatelet mean volume (Bld) [Entitic vol]8.2 fLNormal6.4 - 10.8 fLFTMC HemeAutoSSPlatelets (Bld) [#/Vol]275.0 E9/PTsgvgv091.0 - 500.0 E9/LFTMC HemeAutoSSRBC (Bld) [#/Vol]3.6 E12/LLow4.3 - 5.9 E12/LFTMC HemeAutoSSWBC corrected for nucl RBC Auto (Bld) [#/Vol]5.6 E9/LNormal4.0 - 11.0 E9/LFTMC HemeAutoSSURINALYSISOrdered By: Dinah Almazan on [id number] LM Ql (Urine sed)Trace /HPFNormalTrace/HPFWAGONER [facility] [place] Auto SSBilirubin Ql (U)Negative (05/11/23 12:05 PM)NormalNegativeWAGONER [facility] [place] [facility] Auto SSClarity (U)Clear (05/11/23 12:05 PM)NormalClearFCORDELL [facility] [place] [facility] Auto SSColor (U)Yellow (05/11/23 12:05 PM)NormalYellowWAGONER COMM[facility]ITY [facility] [place] Auto SSCrystals LM Ql (Urine sed)Present (05/11/23 12:05 PM)NormalWAGONER COMMUNITY [facility] [place] [facility] Auto SSEpithelial cells.squamous LM.HPF (Urine sed) [#/Area]5-8 /HPFNormal0-2/HPFWAGONER COMM[facility]ITY [facility] [place] [facility] Auto SSGlucose Test strip (U) [Mass/Vol]Negative (05/11/23 12:05 PM)NormalNegativeWAGONER [facility] [place] [facility] Auto SSHemoglobin Ql (U)Trace *ABN* (05/11/23 12:05 PM)Invalid Interpretation CodeNegativeWAGONER COMM[facility]ITY [facility] [place] [facility] Auto SSKetones (U) [Mass/Vol]Negative (05/11/23 12:05 PM)NormalNegativeWAGONER [facility]ITY [facility] [place] [facility]A Auto SSLithium.plasma/[place].RBC (Bld) [Mass ratio]0-3 /HPFNormal0-3/HPFWAGONER COMMUNITY [facility] [place] [facility] Auto SSMucus Ql (Urine sed)2+ (05/11/23 12:05 PM)NormalWAGONER [facility]ITY [facility] [place] [facility] Auto SSNitrite Ql (U)Negative (05/11/23 12:05 PM)NormalNegativeWAGONER [facility] [place] [facility] Auto SSpH (U)7.0 *NA* (05/11/23 12:05 PM)Invalid Interpretation Code5.0 - 9.0[facility] [place] [facility] Auto SSProtein (U) [Mass/Vol]Negative (05/11/23 12:05 PM)NormalNegativeWAGONER [facility] [place] [facility] Auto SSSpecific gravity (U) [Rel density]1.010 *NA* (05/11/23 12:05 PM)Invalid Interpretation Code1.005 - 1.030[facility] [place] [facility] Auto SSUA Spec DescClean Catch (05/11/23 12:05 PM)NormalWAGONER COMMUNITY [facility]OSP[facility] [place] [facility] Auto SSUrobilinogen Qn (U)0.6879715 {Leon'U}/dLNormal0.0 - 1.0 EU/dLNEW [facility]GLAND [facility] Auto SSWBC Auto Ql (U)1+ *ABN* (05/11/23 12:05 PM)Invalid Interpretation CodeNegativeNEW ENGLAND [facility] Auto SSWBC LM.HPF (Urine sed) [#/Area]0-5 /HPFNormal0-5/HPFWAGONER COMM[facility]ITY [facility] [place] UA Auto SSCULTURE URINEon [id number] URINECulture Observations: LIGHT GROWTH OF MIXED GENITAL NAN. NO POTENTIAL PATHOGENS SEEN.NormalPromedica Bay Park Hospital HospitalComment on above:Performed By: #### URCX #### [facility] [address] [place] [address] Dr. Melchor Winter (CLEAN/CATCH) MICROSCOPIC IF INDICATEon 07-29-3475Prguqxsvi Ql (U)NegativeNormalNEGATIVEAvita Health System Ontario HospitalComment on above:Performed By: #### UMICRO UARMICR #### [facility] [address] [place] [address] Dr. Melchor BrockClarity (U)CLEARNormalCLEARAvita Health System Ontario HospitalComment on above: Performed By: #### UMICRO UARMICR #### [facility] [address] [place] [address] Dr. Melchor Lugo (U)LT. YELLOWNormalYELLOWAvita Health System Ontario HospitalComment on above:Performed By: #### UMICRO, UARMICR #### [facility] [address] [address] [address] Melchor BrockGlucose Ql (U)NegativeNormalNEGATIVEAvita Health System Ontario HospitalComment on above:Performed By: #### UMICRO, UARMICR #### [facility] [address] [place] [address] Dr. Melchor BrockHemoglobin Ql (U)TRACE-INTACTAbnormalNEGATIVEAvita Health System Ontario HospitalComment on above:Performed By: #### UMICRO, UARMICR #### [facility] [address] [place] [address] Dr. Melchor BrockKetones Ql (U)NegativeNormalNEGATIVEAvita Health System Ontario HospitalComment on above:Performed By: #### CASH UARMICR #### [facility] [address] [address] [address] Melchor QuesadaOCYTESTRACEAbnormalNEGATIVEThe [facility] CenterComment on above:Performed By: #### CASH UARMICR #### [facility] [address] [address] [address] Melchor Glover Ql (U)NegativeNormalNEGATIVEThe [facility] CenterComment on above:Performed By: #### CASH UARMICR #### [facility] [address] [address] [address] Melchor Hernandez (U)6.0 [pH]Normal5-9The [facility] CenterComment on above: Performed By: #### FLORENCE CASTREJONRMICR #### [facility] [address] [address] [address] Melchor BrockSPEC GRAVITY1.017Csferd8.005-<=1.025The [facility] CenterComment on above:Performed By: #### FLORENCE CASTREJONRMICR #### [facility] [address] [place] [address] Dr. Melchor Winter PROTEINNegativeNormalNEGATIVE/ TRACEThe [facility] Comment on above:Performed By: #### CASH UARMICR #### [facility] [address] [address] [address] Melchor Rothman MICRO INDINDICATEDNormalThe [facility] CenterComment on above: Performed By: #### CASH UARMICR #### [facility] [address] [address] [address] Melchor Ellis Qn (U)0.2 {Leon'U}/dLNormal0.2 - 1.0The [facility] CenterComment on above:Performed By: #### CASH UARMICR #### [facility] [address] [place] [address] Dr. Melchor Bolanos MICROSCOPIC ONLYon 09-62-6013UGCXCWAKQJVM SEENNormalNONE SEENPremier Health Atrium Medical Center on above:Performed By: #### GLUC, LIPID #### [facility] [address] [address] [address] Melchor Madrigal identified Cx Nom (U)CX ALREADY ORDEREDNormalThHenry County HospitalComment on above:Performed By: #### GLUC, LIPID #### [facility] [address] [address] [address] Melchor De La Cruz SEENNormalNONE SEENPremier Health Atrium Medical Center on above:Performed By: #### GLUC, LIPID #### [facility] [address] [address] [address] Melchor Michelleystals LM Nom (Urine sed)NONE SEENNormalNONE SEENPremier Health Atrium Medical Center on above:Performed By: #### GLUC, LIPID #### [facility] [address] [address] [address] Roche ChangEkirkthelial cells LM Ql (Urine sed)RARENormalNONE SEEN /RAREAvita Health System Ontario HospitalCommarshfield medical center on above:Performed By: #### GLUC, LIPID #### [facility] [address] [address] [address] Melchor BrockMUCOUSVAISHALI SEENNormalNONE SEENPremier Health Atrium Medical Center on above:Performed By: #### GLUC, LIPID #### [facility] [address] [address] [address] Melchor Da SilvaGjcnzMPJ1-6Txizfc2-6AqgPremier Health Atrium Medical Center on above:Performed By: #### GLUC, LIPID #### [facility] [address] [address] [address] Melchor BrockWBC0-2AbnormalNONE SEENPremier Health Atrium Medical Center on above: Performed By: #### GLUC, LIPID #### [facility] [address] [address] [address] Melchor BrockMG MAMM SCREEN 3D SARAHI CADon [id number] MAMM SCREEN 3D SARAHI CAD Patient: ISAURA HAYDENLaurie Exam Date: 03/15/2022 : 1950 Gender:F Ordering : DR FARA BOOKER . Admission #: [id number] Family : Order #: [id number] CLICK HERE TO VIEW EXAM RADIOLOGY REPORT [...] by: Alan Cárdenas M.D. on 03/15/2022 at 11:41[facility] Medical CenterGLUCOSE BLOODon 32-72-9062Dtlmokp [Mass/Vol]99 mg/kVScyzpq47-153Nlo [facility] CenterComment on above:Performed By: #### GLUC, LIPID #### [facility] [address] [place] [address] Dr. Melchor BrockLIPID PROFILEon 78-74-9249BBFH-HDL RATIO NORMSEE BELOWUniversity Hospitals Geauga Medical CenterComment on above:Result Comment: 3.3 - 4.4 LOW RISK 4.4 - 7.1 AVERAGE RISK 7.1 - 11.0 MODERATE RISK >11.0 HIGH RISKPerformed By: #### GLUC, LIPID #### [facility] [address] [address] [address] Melchor BrockCholesterol [Mass/Vol]202 mg/dLCritically high<=200The [facility] on above:Performed By: #### GLUC, LIPID #### [facility] [address] [address] [address] Melchor BrockCholesterol in HDL [Mass/Vol]56 mg/tTUgudha62-13ZxhPremier Health Atrium Medical Center on above:Performed By: #### GLUC, LIPID #### [facility] [address] [address] [address] Melchor BrockCholesterol in LDL [Mass/Vol]112.6 mg/dLOhioHealth Shelby Hospital on above:Performed By: #### GLUC, LIPID #### [facility] [address] [place] [address] Dr. Melchor Hurtadoestermaia.total/Cholesterol in HDL [Mass ratio]3.6 {ratio} NormalThe [facility] on above:Performed By: #### GLUC, LIPID #### [facility] [address] [place] [address] Dr. Melchor Hutton NORMAL> or = 60 mg/dl - LOW CARDIOVASCULAR RISK <40 mg/dl - HIGH CARDIOVASCULAR RISKOhioHealth Shelby Hospital on above:Performed By: #### GLUC, LIPID #### [facility] [address] [place] [address] Dr. Melchor Anne CALC NORMALSEE BELOWUniversity Hospitals Geauga Medical CenterCommarshfield medical center on above:Result Comment: <100 mg/dl OPTIMAL 100 - 129 mg/dl NEAR OR ABOVE OPTIMAL 130 - 159 mg/dl BORDERLINE HIGH 160 - 189 mg/dl HIGH >190 mg/dl VERY HIGH Performed By: #### GLUC, LIPID #### [facility] [address] [place] [address] Dr. Melchor BrockTriglyceride [Mass/Vol]167 mg/dLCritically high<=150The [facility] on above:Performed By: #### GLUC, LIPID #### [facility] [address] [place] [address] Dr. Melchor BrockVLDL CALC33.4 mg/dLUniversity Hospitals Geauga Medical CenterCommarshfield medical center on above: Performed By: #### GLUC, LIPID #### [facility] [address] [address] [address] Melchor KongID PROFILEon 90-98-7290TLDC-HDL RATIO NORMSMartins Ferry HospitalCommarshfield medical center on above:Result Comment: 3.3 - 4.4 LOW RISK 4.4 - 7.1 AVERAGE RISK 7.1 - 11.0 MODERATE RISK >11.0 HIGH RISKPerformed By: #### LIPID, BMP #### [facility] [address] [address] [address] Melchor BrockCholesterol [Mass/Vol]244 mg/dLCritically high<=200[facility] on above:Performed By: #### LIPID, BMP #### [facility] [address] [place] [address] Dr. Melchor BrockCholesterol in HDL [Mass/Vol]60 mg/cATongpo71-42PccAvita Health System Ontario HospitalCommarshfield medical center on above:Performed By: #### LIPID, BMP #### [facility] [address] [place] [address] Dr. Melchor BrockCholesterol in LDL [Mass/Vol]158.4 mg/dLUniversity Hospitals Geauga Medical CenterCommarshfield medical center on above:Performed By: #### LIPID, BMP #### [facility] [address] [place] [address] Dr. Melchor Hurtadoestermaia.total/Cholesterol in HDL [Mass ratio]4.1 {ratio} NormalThe [facility] on above:Performed By: #### LIPID, BMP #### [facility] [address] [place] [address] Dr. Melchor BrockHDL NORMAL> or = 60 mg/dl - LOW CARDIOVASCULAR RISK <40 mg/dl - HIGH CARDIOVASCULAR RISKUniversity Hospitals Geauga Medical CenterCommarshfield medical center on above:Performed By: #### LIPID, BMP #### [facility] [address] [place] [address] Dr. Melchor BrockLDL CALC NORMALSEE [facility] RehabilitationCommarshfield medical center on above:Result Comment: <100 mg/dl OPTIMAL 100 - 129 mg/dl NEAR OR ABOVE OPTIMAL 130 - 159 mg/dl BORDERLINE HIGH 160 - 189 mg/dl HIGH >190 mg/dl VERY HIGH Performed By: #### LIPID, BMP #### [facility] [address] [place] [address] Dr. Melchor BrockTriglyceride [Mass/Vol]128 mg/dLNormal<=150[facility] Comment on above:Performed By: #### LIPID, BMP #### [facility] [address] [place] [address] Dr. Melchor BrockVLDL CALC25.6 mg/dLNormalThe [facility] CenterComment on above: Performed By: #### LIPID, BMP #### [facility] [address] [place] [address] Dr. Melchor BrockPROKell CHEM 8 (BAS METB)on 13-64-8848Iijed gap [Moles/Vol]10.7 mmol/LNormalAvita Health System Ontario HospitalComment on above:Performed By: #### LIPID, BMP #### [facility] [address] [place] [address] Dr. Melchor BrockCalcium [Mass/Vol]7.8 mg/dLCritically low8.4-10.2The [facility] CenterComment on above:Performed By: #### LIPID, BMP #### [facility] [address] [place] [address] Dr. Melchor BrockChloride [Moles/Vol]103 mmol/SPrynud21-698EdvAvita Health System Ontario Hospital Comment on above:Performed By: #### LIPID, BMP #### [facility] [address] [place] [address] Dr. Melchor BrockCO2 [Moles/Vol]28.4 mmol/UOkarmg58.0-30.0[facility] Comment on above:Performed By: #### LIPID, BMP #### [facility] [address] [place] [address] Dr. Melchor BrockCreatinine [Mass/Vol]1.05 mg/dLCritically high0.52-1.04The [facility] CenterComment on above:Performed By: #### LIPID, BMP #### [facility] [address] [address] [address] Melchor LopezGFR-AF SWEDISH>60Normal>=60The [facility] CenterComment on above:Performed By: #### LIPID, BMP #### [facility] [address] [address] [address] Melchor LopezGFR-NON AF DICBHPVR68 mL/min/1.14z8Czqiznqfsn low>=60The [facility] CenterComment on above:Performed By: #### LIPID, BMP #### [facility] [address] [address] [address] Melchor BrockGlucose [Mass/Vol]98 mg/pQYjfpyt80-465Byf [facility] Comment on above:Performed By: #### LIPID, BMP #### [facility] [address] [address] [address] Melchor BrockPotassium [Moles/Vol]4.1 mmol/LNormal3.4-5.0[facility] Comment on above:Performed By: #### LIPID, BMP #### [facility] [address] [place] [address] Dr. Melchor BrockSodium [Moles/Vol]138 mmol/FYkvqsx888-380Fks [facility] Comment on above:Performed By: #### LIPID, BMP #### [facility] [address] [place] [address] Dr. Melchor BrockUrea nitrogen [Mass/Vol]15.0 mg/dLNormal7.0-17.0The [facility] CenterComment on above:Performed By: #### LIPID, BMP #### [facility] [address] [place] [address] Dr. Melchor BrockUrea nitrogen/Creatinine [Mass ratio]14.3 mg/mgNormalThe [facility] CenterComment on above:Performed By: #### LIPID, BMP #### [facility] [address] [place] [address] Dr. Melchor LopezCHOCARDIO M/2D COMPLETEon 21-96-7544NNVULRGTZK M/2D COMPLETE Patient: ISAURA HAYDENLaurie Exam Date: 10/05/2021 : 1950 Gender:F Ordering : DR ANJELICA GAMBINO . Admission #: [id number] Family : Order #: [id number] CLICK HERE TO VIEW EXAM ECHOCARDIOGRAM REPORT [...] Area(A4C): 20.70 cm2 Left Atrium Systolic Volume(A2C): 34832 mm3 Left Atrium Systolic Volume(A4C): 84146 mm3 Mitral Valve MV E to A Ratio: 1.10 Deceleration Trinity: 7410 mm/s2 Mitral Valve A-Wave Peak Velocity: [...] on 10/06/2021 at 08:29 Approved by: Coy oDve M.D. on 10/06/2021 at 08:32[facility] Medical CenterXR DEXA BONE DENSITYon 39-71-2574CQ DEXA BONE DENSITYEXAMINATION: XR DEXA BONE DENSITY, [...] Electronically authenticated by: KVNG MILIAN Date: 2021-09-18 10:56[facility] Medical CenterDEXA BONE DENSITY AXIAL SKELETONon 87-20-1896VJCW BONE DENSITY AXIAL SKELETONREPORT: DEXA scanTECHNIQUE: Routine [...] both femoral necksInterpreted by:ARLEY Valenciaigned by:Lora Mondragon MD09/12/18FProMedica Defiance Regional HospitalMAM DIGITAL SCREEN BILATERALon 08-64-7083FPV DIGITAL SCREEN BILATERALREPORT: BILATERAL DIGITAL SCREENING MAMMOGRAM WITH ASSISTANCE OF CADINDICATION: ScreeningFINDINGS: Compared to 07/30/2016, 04/17/2015, 04/16/2014, 10/26/2011 and 06/09/2010. The breasts are heterogeneously dense. No suspicious calcifications, mass lesions, architectural distortion or skin thickening.Final report electronically signed by Lora Mondragon on 09/12/2017 5:38 PMIMPRESSION: No mammographic evidence of malignancy. (CATEGORY 1 - ACR BI- RADS: NEGATIVE)Interpreted by:ARLEY Valenciaigned by:Lora Mondragon MD09/12/[address] [place] [address] Vital Signs Date TimeVital SignValuePerforming GnijpjfmqCapxigtc39-80-6533 16:08-0400Body vvkval891.56 [facility] CityarmReg[facility] Hospital [facility] [id number] 16:08-0400Body mass index (BMI) [Ratio]28.84 kg/p8GomuxqcOn license of [facility] [id number] 16:08-0400Body surface area Derived from formula1.85 z2QfxehtzOn license of [facility] 07-09-2025 16:08-0400Body ovbfwv92.2 [facility]Critical [facility] [id number] 16:08-0400Diastolic blood mm[Hg] Kaitlin Anderson [facility] 07-09-2025 16:08-0400Heart rate68 /minCarlety Villegas [facility] 07-09-2025 16:08-0400Systolic blood jqmodcop149 mm[Hg] [facility]lin [facility]Gu[facility] 01-07-2025 09:11-0500Body mass index (BMI) [Ratio]29.01 kg/z4Rnwbp Pippa DO Work Phone: [facility] CenterZpjdyrkenm14-95-1711 09:11-0500Body .66 kgCorey Pippa DO Work Phone: [facility] CenterMhtzrrfnpj60-30-7947 09:11-0500Diastolic blood iauybtcl57 mm[Hg]Bentley Pippa DO Work Phone: [facility] CenterFwnnrwlwtv85-49-6901 09:11-0500Systolic blood fwsifhcm930 mm[Hg]Bentley Pippa DO Work Phone: [facility] CenterJsdrjgspcm84-24-7865 10:45-0400Body .6 cmCjoan GOMEZ Work Phone: [facility]05-07-2024 10:45-0400Body mass index (BMI) [Ratio]28.65 kg/y4JltrwznjMary GOMEZ Work Phone: [facility]05-07-2024 10:45-0400Body upyzvlmcdov45.81 [degF]Mary GOMEZ Work Phone: [facility]05-07-2024 10:45-0400Body utvmrq21.75 kgConu GOMEZ Work Phone: [facility]05-07-2024 10:45-0400Diastolic blood vkacfblk21 mm[Hg]Mary GOMEZ Work Phone: [facility]05-07-2024 10:45-0400Heart rate 57 /minCourtney Pennington PA Work Phone: [facility] Oqcdga32-48-4605 10:45-0400 Respiratory rate16 /minCourtney Pennington PA Work Phone: [facility] Spmzkn02-35-3839 10:45-2306WoR5% (BldA) [Mass fraction]99 %Mary Pennington PA Work Phone: [facility] Xnilze77-59-8765 10:45-0400Systolic blood rortrprf415 mm[Hg]Mary Pennington PA Work Phone: [phone] Pejuqd42-05-2302 10:41-0400Body yiaanf648.6 cmCourtney Pennington PA Work Phone: [facility] Pfekwh76-86-9112 10:41-0400Body mass index (BMI) [Ratio]28.48 kg/o2Uqukgahe Pennington PA Work Phone: [facility] Rasvqu87-24-4816 10:41-0400Body ybnsrzttjty39.81 [degF]Mary Pennington PA Work Phone: [facility] Lxtwpg68-12-4005 10:41-0400Body wqkwva22.3 kgCourtney Pennington PA Work Phone: [facility] Xeceko52-28-6366 10:41-0400Diastolic blood egcdcvea50 mm[Hg]Mary Pennington PA Work Phone: [facility] HospitalFABPulous04-09-2024 10:41-0400Heart rate 57 /minCourtney Pennington PA Work Phone: [facility] HospitalFABPulous04-09-2024 10:41-0400 Respiratory rate16 /minCourtney Pennington PA Work Phone: [facility] Hfyxkz73-43-6993 10:41-2967QhB1% (BldA) [Mass fraction]100 %Mary Pennington PA Work Phone: [facility]04-09-2024 10:41-0400Systolic blood dpevhvpw045 mm[Hg]Mary GOMEZ Work Phone: [facility]03-18-2024 10:32-0400Body vhfqxu318.[address]03-18-2024 10:32-0400Body mass index (BMI) [Ratio]28.15 kg/p6Vykly[address]03-18-2024 10:32-0400Body htosac34.[address]03-06-2024 14:38-0500Body twnawnjugoc24.29 [degF]Nabil Lord MD Work Phone: [phone]03-06-2024 14:38-0500Diastolic blood qwmhneqf56 mm[Hg]Nabil Lord MD Work Phone: [phone]03-06-2024 14:38-0500Heart rate 67 /minAdafarzana Lord MD Work Phone: [phone]03-06-2024 14:38-7300UhL2% (BldA) [Mass fraction]98 %Nabil Lord MD Work Phone: [facility]03-06-2024 14:38-0500Systolic blood zvzzkigw972 mm[Hg]Nabil Lord MD Work Phone: [phone]03-06-2024 14:35-0500Body mass index (BMI) [Ratio]29.18 kg/m2Nabil Lord MD Work Phone: [phone]03-06-2024 14:35-0500Body ovfspl24.11 kgNabil Lord MD Work Phone: [phone] Encounters Encounter DateEncounter TypeCare ProviderFacilityStart: 72-22-5345coyktzawfhjenny ChinchillaFacility:[facility] BellevueStart: 07-01-2025 End: 76-54-0051faaneqvfbwRGU Matt L SchwabFacility:FTMCStart: 04-15-2025 End: 58-30-5806Shwztescr Result EncounterCorey Pippa DO Work Phone: noms External Department UnsolicitedStart: 04-15-2025 End: 41-86-1265Nlgymsghv Result EncounterCorey Pippa DO Work Phone: noms External Department UnsolicitedStart: 04-12-2025 End: 66-40-4744Ueuublatk Result EncounterCorey Pippa DO Work Phone: noms External Department UnsolicitedStart: 04-12-2025 End: 83-55-9068Sbroyelnj Result EncounterCorey Pippa DO Work Phone: noms External Department UnsolicitedStart: 02-27-2025 Xavier Santiago Other [facility] OfficeStart: 01-28-2025 End: 10-18-5288ktikbzuxicXhmgzx E. RossFacility:[facility] BellevueStart: 10-19-2024 End: 66-00-0066Lxt Drop offJodi L Yi [facility] Start: 10-19-2024 End: 41-94-7355axoquotlvzWqju L SchwabFacility:FTMCStart: 10-05-2024 End: 08-88-7686Yqkwipnhn Result EncounterCorey Pippa DO Work Phone: noms External Department UnsolicitedStart: 10-05-2024 End: 79-67-4028Ytiogssfq Result EncounterCorey Pippa DO Work Phone: noms External Department UnsolicitedStart: 09-17-2024 End: 97-18-9075hvmwkbnxqvVkeo L SchwabFacility:[facility] BellevueStart: 09-11-2024 End: 33-26-0934cyzaeftdqcQvgls Saw HeckFacility:[facility] HospitalStart: 09-10-2024 End: 41-56-2522mtmakjjzdhWwqfab E. RossFacility:[facility] BellevueStart: 08-28-2024 End: 21-82-9693Zgkyfs flowsheetCorey Pippa DO Work Phone: noms BCP OBStart: 08-28-2024 End: 76-55-0620Hxgdjh flowsheetCorey Pippa DO Work Phone: noms BCP OBStart: 08-28-2024 End: 57-10-4841Msnydrs encounter procedureCorey Pippa DO Work Phone: noms BCP OBComment on above:Well woman exam with routine gynecological exam; Breast cancer screening by mammogram; Postmenopausal stateStart: 08-28-2024 End: 21-32-0526whxcmhiajjRQLFG FAZIONot AvailableStart: 08-27-2024 End: 28-81-0824orwhezexeqDnzuih E. RossFacility:[facility] BellevueStart: 08-09-2024 End: 74-74-2378Qxx Drop offSafsaneh Chinchilla [facility] Start: 08-09-2024 End: 40-08-3287hxtuwnoucfVunmyh E. RossFacility:FTMCStart: 07-30-2024 End: 07-45-2654qpqhvxdsbkRX Anamaria ChinchillaFacility:[facility] BellevueStart: 07-30-2024 End: 65-73-5232gjesonbldyYH Anamaria ChinchillaFacility:[facility] BellevueStart: 07-13-2024 End: 74-73-3047avpddipwinFTHEMT A LEHMANNFacility:[facility] BellevueStart: 05-07-2024 End: 10-96-4862Rfc Drop offSafsaneh Chinchilla [facility] Start: 05-07-2024 End: 64-76-2937byxkutyfzkPR Anamaria ChinchillaFacility:[facility] HOSPITALtart: 12-27-2023 End: 06-24-0737xnafijuykcVDDNOJIAHarley Private Hospitaltart: 12-27-2023 End: 40-63-3378Mcmilx follow up visit related to original Juvencio Pennington JASON Work Phone: [facility] OncologyComment on above:Encounter for postoperative care (Primary Dx)Start: 11-29-2023 End: 96-72-3292jtjbndzqfqFFBSNDLROhioHealth Riverside Methodist Hospitaltart: 11-29-2023 End: 78-12-9803Mhoeau follow up visit related to original Juvencio Pennington JASON Work Phone: [facility] OncologyComment on above:Encounter for postoperative care (Primary Dx)Start: 11-14-2023 End: 26-73-4420Vnkybscfjd and management of inpatientPETER MONTRIEProMedica Fort Defiance HospitalStart: 11-14-2023 End: 52-44-8426Eurfnqbxkz and management of inpatientADAM C [facility] HospitalStart: 38-59-7790Mqfkoifhr for other preprocedural examination NABIL C [facility] HospitalStart: 11-09-2023 End: 09-46-0054qkgihvblwaLYGW C [facility] HospitalStart: 11-07-2023 End: 11-77-9396Volvcownfm and management of inpatientKIM E KNIGHTTogus VA Medical Center HospitalStart: 11-07-2023 End: 02-16-4955Bhcwiphxe to establishmentMetro Pat Phone Call Provider 2 [facility] On [facility] Hospitaltart: 10-28-2023 Patient encounter statusAdafarzana Lord MD Work Phone: [facility] SystemStart: 44-21-7808Tapwggopq encounterAdafarzana Lord MD Work Phone: [facility] OncologyStart: 10-26-2023 End: 05-96-0987ffzoobcmqmQJJR C WALTERGifford Medical CenterAmanda [facility] HospitalStart: 10-26-2023 End: 96-05-9417Lasygv outpatient new 60 minutesAdam Tobi Lord MD Work Phone: [facility] OncologyComment on above:Endometrial thickening on ultrasound (Primary Dx); Postmenopausal bleedingStart: 25-17-5429pyvfjlkixbOGYTuality [facility] Ambulatory PPGStart: 06-57-4049Tlrdzvghh encounterMadison Sury [facility] OncologyStart: 10-17-2023 End: 78-92-3352Amyhliync Result EncounterDiane GOMEZ Work Phone: noms External Department UnsolicitedStart: 10-17-2023 End: 13-56-8316Ghgnmqaav Result EncounterDiane GOMEZ Work Phone: noms External Department UnsolicitedStart: 10-11-2023 End: 95-68-2265omrfvbqyrhRVXYN FAZIONot AvailableStart: 09-01-2023 End: 68-03-9279gkwkmchvdxNFTIGJ A LEHMANNFacility:FT FM BellevueStart: 08-11-2023 End: 50-29-2588anplzqbehwFX Samuel E. RossFacility:FT FM BellevueStart: 08-05-2023 End: 17-19-2871Jstlhcybz Result EncounterCorey Pippa DO Work Phone: noms External Department UnsolicitedStart: 08-05-2023 End: 19-99-7656Rxhmshgrf Result EncounterCorey Pippa DO Work Phone: noms External Department UnsolicitedStart: 05-11-2023 End: 80-49-1673Uoa Drop offMatt [facility] Start: 08-03-2022 End: 63-58-9699wtxwlfcchtWL KIM E KNIGHTFacility:T5Xzdoj: 07-06-2022 End: 32-38-9467xixujvcorvAE KIM E KNIGHTFacility:K5Xejyh: 03-15-2022 End: 78-93-6593dmkoquqofaJR KIM E KNIGHTFacility:B2Eaxku: 02-09-2022 End: 01-52-4302skupyieeumPQ KIM E KNIGHTFacility:Y4Zihpc: 11-05-2021 End: 62-68-6850oeftiqoktwEE KIM E KNIGHTFacility:A2Afrsp: 10-05-2021 End: 89-50-5788fyrnzoyozaIZ KIM E KNIGHTFacility:H3Nhwmy: 09-18-2021 End: 68-69-9040jofvktofafVJ KIM E KNIGHTFacility:S9Abgaq: 09-08-2021 End: 55-78-1176mrypjzgiivRT KIM E KNIGHTFacility:U4Wousf: 09-12-2017 End: 98-24-9323EvxhpaiyuoRKWPLDEGerman Hospital Procedures DateProcedureProcedure DetailPerforming ClinicianStart: 09-07-0337BF TOMOSYNTHESIS SCREENING BICorey Pippa DO Work Phone: Start: 25-17-7182QWL CALCIUMCorey Pippa DO Work Phone: Start: 95-82-7297SVE CREATININECorey Pippa DO Work Phone: Start: 48-00-4694Veeyi conduction studies 7-8 studies Kaitlin OsborneStart: 80-73-6388LXQ CALCIUMCorey Pippa DO Work Phone: Start: 16-93-9737Fblyby-up visitFollow-upCOURTNEY PAYNEStart: 05-40-8801ON MIREYA W/ TRANSNabor GOMEZ Work Phone: Start: 15-94-4297SQE 12-LEADCorey Pippa DO Work Phone: Start: 70-52-0081VomxfhsbauwpUsxhbk Ross Start: 62-04-3112Qcneabrrc mammography bi 2-view breast inc cadFARA FORBEStart: 62-92-2117Tia bone density study 1/> sites axial skelFARA NGOholecystectomyJochantale [employer] Comment on above:bile duct surgeryColonoscopyJoCytheris Comment on above:2012 normalLaser device (physical object)Matt [employer] Comment on above:eye Plan of Treatment DateCare ActivityDetailAuthorStart: 09-03-2025 End: 49-91-3689Nbwgpwl encounter procedureNOMS [facility] OBStart: 06-33-8379upnofbgvrt AmbulatoryFacility:FT FM BellevueStart: 18-47-3486Npzhk BMI ScreeningAdult BMI ScreeningProMedica Health SystemStart: 62-45-1889Xirqh BMI ScreeningAdult BMI ScreeningProMarietta Memorial Hospitalca Health SystemStart: 11-82-7570Qzmlazy ScreeningTobacco ScreeningProMedica Health SystemStart: 97-24-3038Ynfga BMI ScreeningAdult BMI ScreeningProMarietta Memorial Hospitalca Health SystemStart: 99-36-7852Mpmzdnz ScreeningTobacco ScreeningProMedica Health SystemStart: 08-28-2024 End: 18-65-8795SSU Skeletal system Views for bone densityDEXA bone density Imaging Routine Postmenopausal state Expected: 08/28/2024 (Approximate), Expires:08/28/2025NOMS HealthcareComment on above:Expected: 08/28/2024 (Approximate), Expires: 08/28/2025Start: 08-28-2024 End: 27-70-5959UJ Breast - bilateral ScreeningBilateral screening mammogram Imaging Routine Breast cancer screening by mammogram Expected: 08/28/2024, Expires: 10/26/2025[facility] Work Phone: comment on above:Expected: 08/28/2024, Expires: 10/26/2025Start: 08-28-2024 End: 94-65-1010Zxwejfp encounter ybkahlgrq92/07/2025 9:00 AM EST Office Visit [facility] [address] [place] [address] Bentley Das, DO [address] [place] [address] ArrivedNOMS MEDICAL CENTER ENTERPRISE OBComment on above:ArrivedStart: 51-39-3300Ydhrjkotp vaccinationInfluenza VaccineUNC Health Rextart: 12-27-2023 End: 16-38-8224Lgugexl encounter axbbhlsaw76/07/2024 11:00 AM EDT Office Visit Lurdesalejandra Salesn [facility] - Medical Oncology [address] [place] [phone] Mary Pennington PA [address] [place], [place] [phone] (Work) Lurdes L Cidra [facility] - Medical OncologyStart: 11-29-2023 End: 68-96-1315Bwjehic encounter jddklxlas02/09/2024 10:30 AM EDT Office Visit Lurdes Rosado Cidra [facility] - Medical Oncology [address] [place] [address], [place] [phone] Mary Pennington PA [address] [place], [place] [phone] (Work) Lurdes L Cidra [facility] - Medical OncologyStart: 11-14-2023 End: 05-38-1565Trcvexhgl to same day surgery wlzqdn2611/14/2023 11:00 AM EDT - 11/14/2023 1:00 PM EDT Surgery [facility] - Surgery [address] [place] [address] Nabil Lord MD [address] [place] [address], [address] [place] [address] DAVINCI HYSTERECTOMY SALPINGO OOPHORECTOMY(WITH FROZEN SECTION AND POSSIBLE STAGING)[facility] HospitalComment on above:DAVINCI HYSTERECTOMY SALPINGO OOPHORECTOMY(WITH FROZEN SECTION AND POSSIBLE STAGING)Start: 11-14-2023 End: 42-69-3120OLJEVBB HYSTERECTOMY SALPINGO OOPHORECTOMYDAVINCI HYSTERECTOMY SALPINGO OOPHORECTOMY THICKENED ENDOMETRUM/POST MENOPAUSAL BLEEDING/CERVICAL ST ENOSIS 11/14/2023 11:00 AM EDDuke Healthtart: 01-08-7054Qmluqbvoag hospital visit by qmnubzqhb42/25/2024 11:00 AM EDT Hospital Encounter [facility] Surgery [address] [place] [address] Nabil Lord MD [address] [place] [address] [place], [place] [phone] [facility] CenterStart: 11-07-2023 End: 81-07-1549Luugjoirk to cbecrvjlicebh70/18/2024 10:30 AM EDT Support Visit [facility] On [address] [address]LdbKvbafk [facility] On [facility] Start: 10-28-2023 End: 35-09-8826OD Chest PA and LateralX-ray chest 2 views Imaging Routine Preop testing Expected: 10/28/2023, Expires: 10/27/2024[facility] SystemComment on above:Expected: 10/28/2023, Expires: 10/27/2024Start: 10-26-2023 End: 70-35-7120Lfqoizs encounter ibostrefz38/06/2024 3:00 PM EST Office Visit [facility] [address] [place] [phone] Nabil Lord MD [address] [place] [address], [address] [place], [place] [phone] (Work) [facility] OncologyStart: 72-71-8107Vchyityrp vaccinationInfluenza VaccineProMedica Health SystemStart: 76-55-8620Skdwh BMI ScreeningAdult BMI ScreeningVan Wert County Hospital SystemStart: 08-17-4390Asth Risk ScreeningFall Risk ScreeningVan Wert County Hospital SystemStart: 96-62-2250Npxdbozhcgispd of varicella zoster vaccineZoster (Shingles) Vaccine (1 of 2)[facility] SystemStart: 22-63-1180VUxG,Tdap and Td Vaccines (1 - Tdap)DTaP,Tdap and Td Vaccines (1 - Tdap)[facility] SystemStart: 90-46-0227Qqjzy BMI Follow Up PlanAdult BMI Follow Up PlanVan Wert County Hospital SystemStart: 89-46-7924Rvyaztgzkg ScreeningDepression ScreeningVan Wert County Hospital SystemStart: 65-35-8478Ayvqieq ScreeningTobacco ScreeningVan Wert County Hospital SystemStart: 1952Medicare Annual Wellness VisitMedicare Annual Wellness VisitACMC Healthcare System End: 57-10-4919GZC W Auto Differential panel - BloodCBC with auto diff Lab Routine Preop testing 1 Occurrences starting 10/28/2023 until 10/27/2024 [facility] SystemF[facility] Work Phone: Comment on above:1 Occurrences starting 10/28/2023 until 10/27/2024 End: 65-29-9505Lbrkeksgokoqd metabolic 2000 panel - Serum or PlasmaComprehensive metabolic panel Lab Routine Preop testing 1 Occurrences starting 10/28/2023 until 10/27/2024[facility] SystemComment on above:1 Occurrences starting 10/28/2023 until 10/27/2024 End: 90-24-8565AMZ 12 leadECG 12 lead ECG Routine Preop testing 1 Occurrences starting 10/28/2023 until 10/27/2024[facility] SystemComment on above:1 Occurrences starting 10/28/2023 until 10/27/2024 Immunizations Immunization DateImmunizationNotesCare DhuqsypwHbraxaug24-04-6789nsxkfiobkqin polysaccharide vaccine, 23 Ian Chinchilla 929-1603Cpjtqr-UimctThe [facility] 96-93-8084jtvzhedranbv conjugate vaccine, 13 Ian Chinchilla [phone]-MgdhtOhiohealth [facility] 28-69-7527zbofqdwva A vaccine, adult dosageSamjv Chinchilla [phone]-NrtvvOhiohealth [facility]ering[facility] Hospital 48-72-3549mqsfrxhmw A vaccine, adult dosageSamjv Chinchilla 160-9924Bewmte-YzkzkOhiohealth Pickerington [facility] Hospital 16-70-0716scxopeflu virus vaccine, unspecified formulationLinette Ga RN [facility]11-21-2014influenza, injectable, quadrivalent, preservative freeCorey Pippa DO Work Phone: [facility] CenterCdlqwcpciv99-75-7137nifbggcar virus vaccine, unspecified formulationSamjv Chinchilla [phone]-EvxjkOhiohealth [facility] 01-81-4113pmogvfeak, seasonal, injectableCorey Pippa DO Work Phone: [facility] CenterHvpvfwyiqv96-04-7615shqhniluq virus vaccine, unspecified formulationSamjv Chinchilla [phone]-KnvzzOhiohealth [facility] 95-86-2029rhkbyxfog, seasonal, injectableCorey Pippa DO Work Phone: [facility] CenterBqhfybktzb31-79-4091nhubmqqfq virus vaccine, unspecified formulationSamjv Chinchilla [phone]-XcptjOhiohealth Pickering[facility] Hospital 84-93-6141zjftntnir, seasonal, injectableCorey Pippa DO Work Phone: [facility] CenterUzamsnajfb85-71-7031vhritqmkgpvg polysaccharide vaccine, 23 valentSafsaneh Chinchilla 332-9948Kqhpsk-PvtmnOhiohealth [facility] Hospital NEGATED: Highlighted row has not occurred!41-02-6105bjebiygcl virus vaccine, unspecified formulationSamjv Chinchilla [phone]-JoqebOhiohealth Pickerington Methodist Hospital NEGATED: Highlighted row has not occurred!70-38-3941pcvsoxlvm virus vaccine, unspecified formulationSafsaneh Chinchilla 542-5472Dzjqac-NgquhOhiohealth Pickerington Methodist Hospital NEGATED: Highlighted row has not occurred!01-33-8165WMPA-CoV-2 mRNA (tozinameran 5y-11y) vaccineJochantale Richmond [phone]-ExzvsParkview Health Payers DatePayer CategoryPayerPolicy ID2022Medicare (Managed Care)[employer] [id number] 2017Medicare [id number] [id number] 1950 [id number] 2..1.086620.3.57[id number] 2.0.1.209954.3.57[id number] 2.0.1.132732.3.57[id number] 2.0.1.526990.3.57[id number] 2.840.1.655663.3.57[id number] 2.16.840.1.655343.3.57[id number] 2.16.840.1.127612.3.57[id number] 2.16.840.1.128838.3.57[id number] 2.16.840.1.837855.3.57[id number] 2.16.840.1.418505.3.57[id number] 2.16.840.1.469416.3.579.2.[id number] 2.16.840.1.836576.3.579.[id number] 2.16.840.1.233401.3.579.2.702146-43-5685Ryybbyv94809057 2.16.840.1.839234.3.579.[id number] 2.16.840.1.447914.3.579.2.069377-17-4701Tjkrluq10273745 2.16.840.1.538699.3.579.2.1[id number] 2.16.840.1.854733.3.579.2.235027-40-4907Yhjesic69286589 2.16.840.1.491189.3.579.2.[id number] 2.16.840.1.800407.3.579.2.732962-85-4913Bfxiwgs90808782 2.16.840.1.644106.3.579.2.71965-57-0074Lotiheu28056862 2.16.840.1.374555.3.579.2.51306-17-4997Wkhwaox65609224 2.16.840.1.771703.3.579.2.80065-48-7008Yjxipki86121209 2.16.840.1.517672.3.579.2.18774-51-3287Qoyifmb53970515 2.16.840.1.732290.3.579.2.30385-40-9124Aokyouu22973824 2.16.840.1.935937.3.579.2.26940-61-6237Egyphoq5371431 2.16.840.1.065268.3.579.2.280352-94-1571Fhhfpww5087984 2.16.840.1.171438.3.579.2.156467-60-9146Zcjbxek245062381 2.16.840.1.884713.3.579.2.25220-16-4414Ejltqsg39336333 2.16.840.1.262635.3.579.2.55804-63-0240Gpyujju45725587 2.16.840.1.245029.3.579.2.62625-91-1497Zkziwca13840987 2.16.840.1.816030.3.579.2.96696-57-6147Ypczcfw59646855 2.16.840.1.104702.3.579.2.44593-10-8808Ebbqyhs66717471 2.16.840.1.563787.3.579.2.74337-15-2186Xgkvrve83625614 2.16.840.1.737406.3.579.2.20485-78-5754Ztlicrr80564470 2.16.840.1.117273.3.579.2.85278-49-8930Tbzbpin83964380 2.16.840.1.581856.3.579.2.99869-88-4345Eqlntve88525614 2.16.840.1.234577.3.579.2.32985-72-3378Kueeinr20397344 2.16.840.1.176917.3.579.2.95131-26-1187Vodvhuo78563709 2.16.840.1.738021.3.579.2.95360-52-2041Khazhud96962127 2.16.840.1.374120.3.579.2.13230-98-4466Ssntbya92158609 2.16.840.1.170204.3.579.2.727 Social History DateTypeDetailFacilityStart: 01-31-2023 End: 50-85-7169Tjablgi smoking statusNever smoked tobacco (finding)[facility] BellevueComment on above:deniesdenies use.Start: 11-03-2022 Tobacco smoking statusNeverOur Lady Of Mercy Hospital BellevueComment on above:deniesdenies use.Start: 10-02-2020 End: 03-11-4015Kos Assigned At BirthFeMercy Health Perrysburg Hospital CenterStart: 07-27-2023 End: 34-10-4296Ilypjpxpa beverage intakeCurrent drinker of alcohol (finding) [facility] SystemStart: 07-27-2023 End: 55-91-0351Boxrmiptk beverage intakeProGeorgetown Behavioral Hospital SystemStart: 1950 Sex assigned at birthNot on fileProMedica Health SystemHistory of tobacco use Passive smokerProAndalusia Health AdexLink SystemStart: 01-12-2018 End: 63-34-7225Nlelbzj use and exposureSmokeless tobacco non-userSycamore Medical Center AdexLink SystemStart: 30-92-6778Zpy [facility] at [facility] Start: 71-27-2468Arqzcb identityIdentifies as female gender (finding)[facility] [employer]tart: *[employer] hospitalTrue Fit Start: 62-90-3978PhmqnxyQybdpyboqMXP4 Clinical Notes 08-05-2022 to 10-19-2024 Note Date & VlpuHdoqDsprztrg88-02-0531 NoteNurse Consultation Note Assessment/Plan UTI symptoms (R39.9: [...] Protein Urine Dipstick: Trace (10/19/24 10:07:00) Specific [place] Urine Dipstick: 1.020 (10/19/24 10:07:00) Urine Appearance Urine Dipstick: Slightly cloudy (10/19/24 10:07:00) Urine Color Urine Dipstick: Light yellow (10/19/24 10:07:00) Urobilinogen Urine Dipstick: Normal 0.2-1 EU/dl (10/19/24 10:07:00) pH Urine Dipstick: 7 (10/19/24 10:07:00)[facility]01-07-2025 History of Present illness Narrative* Maryanne [...] Daily aspirin 81 mg, Every other day Wlcsvse-Zoksbfbefw-Qorqgtu D (VITAMIN D3/CALCIUM/PHOSPHORUS PO) 1 each, Daily Denosumab (PROLIA SC) 1 Units, Every 6 months Durysta 10 mcg, As needed losartan (COZAAR) 100 mg, Daily [place]-3 500 mg rosuvastatin (CRESTOR) 20 mg ALLERGIES Allergies Allergen Reactions Hydromorphone Unknown PROBLEMS Active Ambulatory Problems Diagnosis Date Noted Age-related osteoporosis without current pathological fracture ([facility]) 01/31/2023 Arthritis 12/27/2016 Hypercholesterolemia ([facility]) 12/27/2016 Hypertension ([facility]) 01/31/2023 Iron deficiency anemia 12/27/2016 TIA (transient ischemic attack) 01/31/2023 History of colon polyps 02/01/2023 Hyperlipidemia ([facility]) 02/23/2023 Resolved Ambulatory Problems Diagnosis Date Noted No Resolved Ambulatory Problems Past Medical History: Diagnosis Date Bronchitis Capillary angioma Cataracts, bilateral Chicken pox Family history of cancer Gallstone pancreatitis 2016 Glaucoma ([facility]) Hemorrhoids 2013 High blood pressure ([facility]) High cholesterol ([facility]) Measles Mumps Osteoporosis ([facility]) Pneumonia Stress fracture Tonsillitis Tubular adenoma 2013 HISTORY PAST MEDICAL HISTORY SOCIAL HISTORY Past Medical History: Diagnosis Date Arthritis Bronchitis Capillary angioma Cataracts, bilateral Chicken pox Family history of cancer Gallstone pancreatitis 2017 Glaucoma ([facility]) Hemorrhoids 2013 High blood pressure ([facility] High cholesterol ([facility]) Measles Mumps Osteoporosis ([facility]) Pneumonia Stress fracture Tonsillitis Tubular adenoma 2012 [...] nursing note reviewed. Exam conducted with a wire communications engineer present. Vitals: Estimated body mass index is [...] of: Bentley Das DO documented in this encounterResearch Medical CenterQcoacvidwg99-83-3802 NoteNurse Consultation Note Reason for Visit Here [...] inactivated 05/17/2011 Recorded pneumococcal 23-valent vaccine 06/25/2008 RecordedOhiohealth Grove City [facility] Hospital 07-30-2024 NotePatient Education Cardiovascular Hypertension, Adult [...] Keep all follow-up visits. Medicines ??? Take rkdj-eka-zmjobzw and prescription medicines only as told by [...] ??? Hypertension is a (more content not included)...[facility] 07-13-2024 NotePatient Education Infectious Disease Pharyngitis [...] these instructions at home: Medicines ??? Take iykl-lgq-jfzehfl and prescription medicines only as told by [...] and water are not available, use hand security nurse. ??? Do not touch your eyes, nose, [...] away. Call your local emergency services (911 [facility] [place] ??? Do not wait to [...] provider. Document Revised: 11/04/2021 Document Reviewed: 11/04/2021 [employer] Patient Education ? 2023 [employer].[facility] 12-27-2023 History of Present illness Narrative* [...] 01/12/2018 Performed by Nitesh Littlejohn MD at [facility] DAVINC ROBOTIC ASSISTED HYSTERECTOMY, BILATERAL SALPINGO OOPHORECTOMY, PELVIC WASHINGS Bilateral 11/14/2023 Performed by Nabil Lord MD at [facility] HEMORROIDECTOMY 1999's SKIN BIOPSY Right 2017 [...] Inability: Never True Received from [facility] Safety & Environment Review of Symptoms: [...] *This note was completed using a voice grid molder system. Every effort was made to ensure accuracy. However, inadvertent computerized grid molder errors may be present. .Total time spent was 20 minutes: Preparing to see the patient (e.g., review of tests) Performing a medically appropriate examination and/or evaluation Counseling and educating the patient/family/caregiver Documenting clinical information in the electronic or other health record Care coordination (not separately reported) Mary Pennington PA-C, RD, IF JASON Zaragzoa 12/27/23 1109 documented in this encounterACMC Healthcare System04-09-2024 History of Present illness Narrative* JASON Zaragoza [...] 01/12/2018 Performed by Nitesh Littlejohn MD at [facility] DAVINCI ROBOTIC ASSISTED HYSTERECTOMY, BILATERAL SALPINGO OOPHORECTOMY, PELVIC WASHINGS Bilateral 11/14/2023 Performed by Nabil Lord MD at [facility] HEMORROIDECTOMY SKIN BIOPSY Right 2017 thigh [...] *This note was completed using a voice grid molder system. Every effort was made to ensure accuracy. However, inadvertent computerized grid molder errors may be present. .Total time spent was 20 minutes: Preparing to see the patient (e.g., review of tests) Performing a medically appropriate examination and/or evaluation Counseling and educating the patient/family/caregiver Documenting clinical information in the electronic or other health record Care coordination (not separately reported) Mary Pennington PA-C, RD, IF JASON Zaragoza 11/29/23 1101 documented in this encounterGifford Medical CenterMapHazardly03-18-2024 Instructions* Pre- Procedure Instructions - Angelia Kramer RN - 11/07/2023 10:30 AM EDT Your surgery/procedure is scheduled at [facility] on 11/14/2023 at 11 am Arrival Time [address] [facility] Address: [address] [place] [address], [address] [place] [address] in the Emergency Center Parking lot. Report to the front desk admin in the Emergency/Surgery Registration lobby of the hospital. Please call Pre-Admission Clinic at [phone] if you have any questions prior to surgery. For questions the morning of surgery, please call the Pre-op Department at [phone]. Notify your SURGEON if you develop any [...] would like to schedule therapy at a [facility] facility, please call [phone] ([phone]). Do not use lotions, creams, powders, perfume, make up, cologne or after-shaves day of surgery. Remove ALL jewelry including wedding rings, body piercings, hair extensions that contain metal, nail setswana, make-up, and contact lens. You may brush your teeth the morning of surgery, but do not swallow the water. Wear your dentures and partial plates to the hospital (no adhesive). Shower the night the before. If applicable, use the CHG (chlorhexidine gluconate) soap or wipes. Please be advised, [facility] has transitioned to a cashless payment system. [...] RIGHTS AND RESPONSIBILITIES As a patient at [facility], you have the right to: Receive medical care and be informed of who is taking care of you Be treated with dignity and respect Have a family member/representative personal service of choice and your physician notified of your admission Receive information and actively participate in decisions about your care and treatment Refuse care, treatment and services Decide who may provide your support and speak for you Access druze and spiritual services Participate in ethical issues [...] of hospital charges and payment methods Patient/patient representative personal service responsibilities are to: Provide information about health status to facilitate care, treatment and services Follow the treatment, plan, keep appointments and speak up when you do not understand the plan Respect the rights of other patients and healthcare personnel Follow organizational rules and regulations that support quality care and a safe environment Fulfill financial obligations as promptly as possible [facility]03-18-2024 Miscellaneous Notes* Perioperative Nursing Note - Angelia Kramer RN - 11/07/2023 10:30 AM EDT [facility]2023 to havre EKG, CXR and labs. * Pre-Procedure Instructions - Angelia Kramer RN - 11/07/2023 10:30 AM EDT Your surgery/procedure is scheduled at [facility] on 11/14/2023 at 11 am Arrival Time [address] [facility] Address: [address] [place] [address], [address] [place] [address] in the Emergency Center Parking lot. Report to the front desk admin in the Emergency/Surgery Registration lobby of the hospital. Please call Pre-Admission Clinic at [phone] if you have any questions prior to surgery. For questions the morning of surgery, please call the Pre-op Department at [phone]. Notify your SURGEON if you develop any [...] would like to schedule therapy at a [facility] facility, please call [phone] ([phone]). Do not use lotions, creams, powders, perfume, make up, cologne or after-shaves day of surgery. Remove ALL jewelry including wedding rings, body piercings, hair extensions that contain metal, nail setswana, make-up, and contact lens. You may brush your teeth the morning of surgery, but do not swallow the water. Wear your dentures and partial plates to the hospital (no adhesive). Shower the night the before. If applicable, use the CHG (chlorhexidine gluconate) soap or wipes. Please be advised, [facility] has transitioned to a cashless payment system. [...] RIGHTS AND RESPONSIBILITIES As a patient at [facility], you have the right to: Receive medical care and be informed of who is taking care of you Be treated with dignity and respect Have a family member/representative personal service of choice and your physician notified of your admission Receive information and actively participate in decisions about your care and treatment Refuse care, treatment and services Decide who may provide your support and speak for you Access druze and spiritual services Participate in ethical issues [...] of hospital charges and payment methods Patient/patient representative personal service responsibilities are to: Provide information about health status to facilitate care, treatment and services Follow the treatment, plan, keep appointments and speak up when you do not understand the plan Respect the rights of other patients and healthcare personnel Follow organizational rules and regulations that support quality care and a safe environment Fulfill financial obligations as promptly as possible documented in this encounterAC[facility]03-18-[facility]24 Nurse Note* Perioperative Nursing Note - Angelia Kramer RN - 11/07/2023 10:30 AM EDT [facility]2023 to havre EKG, CXR and labs. [facility]-08-[facility]24 Miscellaneous Notes* Telephone Encounter - Raj Nuñezsteven - 10/28/2023 11:19 AM EST Spoke with Mee 3 and 10/27 to confirm surgery plan. Patient is scheduled at [facility] with Dr Lord on 11/14/23. She knows to arrive at 9:00a for 11:00a surgery. Patient knows to call [phone] to locate closest [facility] facility in order to complete PAT testing. She has phone call PAT scheduled for 11/07/23. She will follow up with Mary in [place] on 11/29/23 at 10:30a. documented in this encounterACMC Healthcare System03-08-2024 Telephone encounter Note* Telephone Encounter - Raj Nuñezsteven - 10/28/2023 11:19 AM EST Spoke with Mee 10/26 and 10/27 to confirm surgery plan. Patient is scheduled at [facility] with Dr Lord on 11/14/23. She knows to arrive at 9:00a for 11:00a surgery. Patient knows to call [phone] to locate closest [facility] facility in order to complete PAT testing. She has phone call PAT scheduled for 11/07/23. She will follow up with Mary in [place] on 11/29/23 at 10:30a. [facility] History of Present illness Narrative* Nabil Lord [...] personal or family history of GI or drawer waxer malignancies. Oncology History No overview note Isaura [...] 01/12/2018 Performed by Nitesh Littlejohn MD at [facility] HEMORROIDECTOMY TONSILLECTOMY Past Medical History: Diagnosis [...] and communicating with other health animal care giver (not separately reported) Documenting clinical information in the electronic or other health record Independently interpreting results (not separately reported) and communicating results to the patient/family/caregiver Nabil Lord MD documented in this encounterACMC Healthcare System02-28-2024 Miscellaneous Notes* Telephone Encounter - Linette Ga RN - 10/19/2023 10:05 AM EST 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 Requested images from pelvic US be pushed via PACS from [facility]. 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 Requested images from pelvic US be pushed via PACS from [facility]. [facility] NoteProcedures Choosing a Surgeon When you need [...] a surgeon: ? Is certified by the [place] [employer]. To be board certified, a surgeon must go through an approved residency training program and pass a comprehensive exam. You can check your surgeon's board certification at www.abms.org/verify-certification/ ? Has had any problems with state licensing authorities. You can check whether a surgeon has had malpractice claims or other professional problems by going to your state medical board at www.fsmb.org/jpiavwy-l-hmaif-medical-board/ ? Has good ratings from other patients [...] the Joint Commission or the AccreditationAssociation for [facility]. Step 4: Meet with the [...] you are considering is certified by the [place] [employer]. ? Meet with [...] provider. Document Revised: 10/19/2021 Document Reviewed: 10/19/2021 [employer] Patient Education ? 2022 [employer] 08-05-2022 NotePROCEDURE: XR FOOT LT MIN [...] Electronically authenticated by: ALAN CÁRDENAS Date: 2022-08-04 22:03[facility] Future Appointments Appointment Date:05/30/2023 02:00:00 PM Scheduled Provider: Location:[facility] Appointment Type: Medicare Wellness Subsequent Appointment Date:05/30/2023 02:40:00 PM Scheduled Provider:Anamaria Chinchilla MD Location:[facility] Appointment Type: Open Diagnostic Tests Pending * Urine Culture [facility]11[facility]23 [facility] Future Appointments Appointment Date:07/30/2024 10:30:00 AM Scheduled Provider:Anamaria Chinchilla MD Location:[facility] Appointment Type:FM Open Appointment Date:07/30/2024 11:00:00 AM Scheduled Provider: Location:[facility] Appointment Type:FM Medicare Wellness Subsequent Diagnostic Tests Pending * Urine Culture 05/07/24 [facility] evaluation + Plan note Future Appointments Appointment Date:01/28/2025 08:45:00 AM Scheduled Provider:Anamaria Chinchilla MD Location:[facility] Appointment Type:FM Open Appointment Date:08/01/2025 11:00:00 AM Scheduled Provider: Location:[facility] Appointment Type:FM Medicare Wellness Subsequent [facility] evaluation + Plan note Future Appointments Appointment Date:01/28/2025 08:45:00 AM Scheduled Provider:Anamaria Chinchilla MD Location:[facility] Appointment Type:FM Open Appointment Date:08/01/2025 11:00:00 AM Scheduled Provider: Location:[facility] Appointment Type: Medicare Wellness Subsequent Diagnostic Tests Pending * Urine Culture 10/19/24 [facility] evaluation note* Diagnosis Well woman exam with routine gynecological exam Routine gynecological examination Breast cancer screening by mammogram Postmenopausal state Asymptomatic postmenopausal status (age-related) (natural) documented in this encounter [facility]* Diagnosis Encounter for postoperative care- Primary documented [facility] Diagnosis Endometrial thickening on ultrasound- Primary Postmenopausal bleeding documented in this [facility]* Diagnosis Preop testing- Primary Unspecified pre-operative examination [facility] Diagnosis Encounter for postoperative care- Primary [facility] N[facility]ative No data available for this section [facility] Dis[facility] instructions No data available for this section [facility]InstructionsNot on filedocumented in this encounter [facility] filedocumented in this encounter [facility] on filedocumented in this encounter [facility] on filedocumented in this encounter [facility] on filedocumented in this encounter [facility]Not on filedocumented in this encounter [facility] No data available for this section [facility] Summary Purpose Family History No Family History [...] Procedures ECG 12 lead Nabil Lord MD [address] [place] [address], [place] [address] Referral IDStatusReasonStart DateExpiration DateVisits RequestedVisits [id number] Review Additional Source Comments INFORMATION SOURCE (unrecogn ized section and content) DATE CREATED AUTHOR 02/13/2018 [facility] DATE CREATED AUTHOR AUTHOR'S ORGANIZ ATION 08/12/2022 [facility] DATE CREATED AUTHOR AUTHOR'S ORGANIZ ATION 10/27/2023 [facility] DATE CREATED AUTHOR AUTHOR'S ORGANIZ ATION 10/28/2023 [facility] DATE CREATED AUTHOR AUTHOR'S ORGANIZ ATION 11/18/2023 [facility] DATE CREATED AUTHOR AUTHOR'S ORGANIZ ATION 12/28/2023 [facility] DATE CREATED AUTHOR AUTHOR'S ORGANIZ ATION 05/15/2024 [facility] DATE CREATED AUTHOR AUTHOR'S ORGANIZ ATION 08/10/2024 [facility] DATE CREATED AUTHOR AUTHOR'S ORGANIZ ATION 08/13/2024 [facility] DATE CREATED AUTHOR AUTHOR'S ORGANIZ ATION 09/03/2024 [facility] DATE CREATED AUTHOR AUTHOR'S ORGANIZ ATION 09/13/2024 [facility] DATE CREATED AUTHOR AUTHOR'S ORGANIZ ATION 10/21/2024 [facility] DATE CREATED AUTHOR AUTHOR'S ORGANIZ ATION 10/22/2024 [facility] DATE CREATED AUTHOR AUTHOR'S ORGANIZ ATION 05/30/2025 [facility] DATE CREATED AUTHOR AUTHOR'S ORGANIZ ATION 07/03/2025 [facility] DATE CREATED AUTHOR AUTHOR'S ORGANIZ ATION 07/04/2025 [facility] Patient Care team informatio n (unrecognized section and content) Team MemberRelationshipSpecialtyStart DateEnd Date Anjelica Gambino MD [address] [place] [address] PCP - GeneralFamily Medicine01/27/23Team MemberRelationshipSpecialtyStart DateEnd Date Anjelica Gambino MD [address] [facility] [place] [address] PCP - GeneralFamily Medicine01/27/23Team MemberRelationshipSpecialtyStart DateEnd Date Anamaria Chinchilla MD [address] [facility] [place], [place] [id number] PCP - GeneralFamily Medicine3/18/24Team MemberRelationshipSpecialtyStart DateEnd Date Anjelica Gambino MD [address] [place] [address] PCP - GeneralFamily Medicine12/24/16Team MemberRelationshipSpecialtyStart DateEnd Date Anjelica Gambino MD [address] [place] [address] PCP - GeneralFamily Medicine12/24/16Team MemberRelationshipSpecialtyStart DateEnd Date Anjelica Gambino MD [address] [place] [address] PCP - GeneralFamily Medicine12/24/16Team MemberRelationshipSpecialtyStart DateEnd Date Anamaria Chinchilla MD [address] [place] [address] PCP - GeneralFamily Medicine11/07/23Team MemberRelationshipSpecialtyStart DateEnd Date Anjelica Gambino MD [address] [place] [address] PCP - GeneralFamily Medicine01/27/23Team MemberRelationshipSpecialtyStart DateEnd Date Anjelica Gambino MD [address] [place] [address] PCP - GeneralFamily Medicine01/27/23Team MemberRelationshipSpecialtyStart DateEnd Date Anjelica Gambino MD [address] [place] [address] PCP - GeneralFamily Medicine01/27/23 Reason for Visit [...] BE BASED ON THE PRIMARY CLINICAL RECORDS. [facility] [employer] [facility]. provides no warranty or guarantee of the accuracy or completeness of information in this document.
== END 2025-07-22 10:00 | disposition home or self-care (01) ==
PROVIDERS: PCP Nurse Practitioner; Visit Provider Podiatrist Foot & Ankle Surgery
DX: M79.671 Pain in right foot (principal); S92.354D Nondisplaced fracture of fifth metatarsal bone, right foot, subsequent encounter for fracture with routine healing
CPT/HCPCS: 73630

== ENCOUNTER 2025-07-22 12:15 | Outpatient (OUT) | payer MEDICARE, SELFPAY ==
--- OUTSIDE RECORDS SUMMARY | 2025-07-22 12:17 | XMS_ITS | Clinical Summary ---
Author Organization [facility] Address [address] [place] [address] Care Team Providers Care Tub Mender Name Role Phone Francia Gambino MD Primary Care Provider [phone] Allergies Active AllergyReactionsCriticalityNoted DateCommentsHydromorphoneUnknown 01/28/2023 Medications MedicationSigDispense QuantityRefillsLast FilledStart DateEnd DateStatus Krill Oil ([place]-3) 500 MG capsule Take 500 mg by mouth.12/01/2022ctive alpha tocopherol (Vitamin E) 1000 units capsule See Instructions, take one daily 400mg, Refills(s) ctive rosuvastatin (Crestor) 20 MG tablet Take 20 mg by mouth.12/01/2022ctive aspirin 81 MG EC tablet Take 81 mg by mouth every other day.Active Oukpgre-Fjpvgsmqfp-Nrxtvrz D (VITAMIN D3/CALCIUM/PHOSPHORUS PO) Take 1 each [...] Units under the skin every 6 (six) wsjlso5907/30/2024ctive Active Problems ProblemNoted DateDiagnosed JqhtZmcknymqnsyrkk27/05/2023History of colon polyps 02/01/2023ge-related osteoporosis without current pathological fracture 01/31/20235047Sbnpqhvbvlpt05/12/2023TIA (transient ischemic attack)01/31/2023 Oyiajefbl60/08/8657Qptzwqjyishpbyvfseeh35/08/2017Iron deficiency anemia 12/27/2016 Immunizations ImmunizationAdministration DatesNext DueHep A, Adult11/08/2016,05/05/2016 Influenza, injectable, quadrivalent, preservative free07/12/2014Influenza, seasonal, zhursonwbw48/15/2013,05/18/2012,05/17/2011Pneumococcal Conjugate PCV 13109/20/2017Pneumococcal Polysaccharide HPNO007409/24/2018,06/25/2008 Family History Medical HistoryRelationNameCommentsColon cancerBrotherBrain cancerFatherDiabetes FatherHeart diseaseFatherLung cancerFatherKidney diseaseMotherbladder cancer MotherCancerPaternal GrandmotherCancerSiblingDiabetesSiblingHeart diseaseSibling MelanomaNeg HxRelationNameStatusCommentsBrotherFatherDeceasedMotherDeceased Paternal GrandmotherSibling Social History Tobacco UseTypesPacks/DayYears UsedDateSmoking Tobacco: Never Tobacco Cessation:Counseling Given: Not Answered Alcohol UseStandard Drinks/WeekCommentsYes1 (1 standard drink = 0.6 oz pure alcohol)CommentsNoSex and Gender InformationValueDate RecordedSex Assigned at BirthNot on fileLegal CjoIkgfpn50/15/2023 7:02 PM EDTGender Identity Not on fileSexual OrientationNot on file Last Filed Vital Signs Vital SignReadingTime TakenCommentsBlood Zlkztpun508/70008/28/2024 9:11 AM EST Pulse--Temperature--Respiratory Rate--Oxygen Saturation--Inhaled Oxygen Concentration--Tjibpz19.7 kg (169 lb)08/28/2024 9:11 AM VDEEhxzow050.6 cm (5' 4 )05/25/2023 1:07 PM EDTBody Mass Index29.011 1:07 PM EDT Plan of Treatment DateTypeDepartmentCare Team (Latest Contact Info)Eatvriocknh44/13/2026 10:00 AM ESTOffice Visit [facility] [address] [place] [address] Bentley Das DO [address] [place], [place] [id number] Insurance Care Teams Team MemberRelationshipSpecialtyStart DateEnd Date Francia Gambino MD [address] [place] [phone] PCP - GeneralFamily Medicine01/27/23
--- OUTSIDE RECORDS SUMMARY | 2025-07-22 12:17 | XMS_ITS | Clinical Summary ---
Author Organization [facility] Address [address] [place] [address] Care Team Providers Care Outside Machinist Name Role Phone Unavailable Primary Care Provider Unavailabl e Social History Tobacco UseTypesPacks/DayYears UsedDateSmoking Tobacco: Never AssessedUT Safety & EnvironmentAnswerDate RecordedFear of Current or Ex-PartnerNot on file 10/13/2023Emotionally AbusedNot on file10/13/2023hysically AbusedNot on file 10/13/2023Sexually AbusedNot on file10/13/2023hysically or Sexually AbusedNot on file10/13/2023CommentsUnknownSex and Gender InformationValueDate RecordedSex Assigned at BirthNot on fileLegal PbaEafqib40/30/2022 12:43 AM EDT Gender IdentityNot on fileSexual OrientationNot on file Plan of Treatment Not on file
--- OUTSIDE RECORDS SUMMARY | 2025-07-22 12:17 | XMS_ITS | Clinical Summary ---
Author Organization [facility] Address [id number] [address] [place] [address] Care Team Providers Care Sheriffs Officer Name Role Phone Job Alvarado MD Primary Care Provider [phone] Allergies Active AllergyReactionsCriticalityNoted DateCommentsHydromorphoneConfusion, LlfamtrivzvwcoUry22/18/2024 Medications MedicationSigDispense QuantityRefillsLast FilledStart DateEnd DateStatus psyllium [...] 60 tablet 11/14/2023ctive Active Problems ProblemNoted DateDiagnosed OmweJqsqoougpusqnxswgitx04/08/6232Sexjkbbop28/08/2017 Iron deficiency nifdoz5212/27/2016 Resolved Problems ProblemNoted DateDiagnosed DateResolved DateEndometrial thickening on ultrasound /ostmenopausal /03/2024 Family History Medical HistoryRelationNameCommentsCancerBrotherDiabetesBrotherHeart disease BrotherKidney diseaseBrotherArthritisFatherCancerFatherDiabetesFatherHeart [...] standard drink = 0.6 oz pure alcohol)ChildcareAnswerDate NnhbcbfjQviergkevFmjyzdo22/12/2019EmploymentAnswer Date IalpfiggIhrkhdrlrwDtoxmly84/12/2019Hunger ScreeningAnswerDate Recorded Within the past 12 months we worried whether our food would run out before we got money to buy more.Never True11/07/2023Within the past 12 months the food we bought just didn't last and we didn't have money to get more.Never True 4Purpose - LifeAnswerDate RecordedPurpose and direction in lifeUnknown 1CommentsNoSex and Gender InformationValueDate RecordedSex Assigned at SpgiuEqkcco73/04/2024 9:16 AM ESTLegal LcqKqpqea70/06/2015 12:11 PM EDTGender EcuttdjySyavwk30/04/2024 9:16 AM ESTSexual OrientationNot on file Last Filed Vital Signs Vital SignReadingTime TakenCommentsBlood Lqiuddst673/7105 10:45 AM EDT Drksj190812/27/2023 10:45 AM GOVRyaukanzsot16.6 ??C (97.8 ??F)12/27/2023 10:45 AM EDTRespiratory Jmdy062712/27/2023 10:45 AM EDTOxygen Pmjewvdodr13%12/27/2023 10:45 AM EDTInhaled Oxygen Concentration--Itpdpa50.8 kg (167 lb)12/27/2023 10:45 AM TWVAqpmep596.6 cm (5' 4.02 )12/27/2023 10:45 AM EDTBody Mass Index28.65 12/27/2023 10:45 AM EDT Plan of Treatment Health MaintenanceDue DateLast DoneCommentsDepression Navlrvgcv35/21/1964 DTaP,Tdap and Td Vaccines (1 - Tdap)1971Zoster (Shingles) Vaccine (1 of 2) 2002Fall Risk Yvapydrgh18/21/2017Tobacco Coabuyamp39/25/933531/ Adult BMI Ylkectquv68/02/2024Influenza Dluqela42, 06/05/2013, 05/18/2012, Additional history existsRSV ( or age 60+ yrs) (1 - 1-dose 75+ series)2027 [employer] Not on file Insurance * Guarantor: Isaura Rivera TypeRelation to PatientDate of PhoneBilling AddressPersonal/SpsvknVclw1950 [address] [address] Care Teams Team MemberRelationshipSpecialtyStart DateEnd Date Job Alvarado MD [address] [place] [address] PCP - GeneralFamily Medicine11/07/23
--- OUTSIDE RECORDS SUMMARY | 2025-07-22 12:17 | XMS_ITS | Clinical Summary ---
Author Organization [facility] Address [address], [address] [place] [address] Care Team Providers Care Docent Coordinator Name Role Phone Francia Gambino MD Primary Care Provider Unavailab le Social History Tobacco UseTypesPacks/DayYears UsedDateSmoking Tobacco: Never Assessed CommentsUnknownSex and Gender InformationValueDate RecordedSex Assigned at Not on fileLegal VfaRnwxxc62/10/2013 7:38 PM ESTGender IdentityNot on fileSexual OrientationNot on file Plan of Treatment Not on file Insurance * Guarantor: Isaura Rivera TypeRelation to PatientDate of PhoneBilling AddressPersonal/FhxgnpUgme1950 [address] [address] Care Teams Team MemberRelationshipSpecialtyStart DateEnd Date Francia Gambino MD [address] [place] [address] PCP - General04/02/14
--- NOTE | 2025-07-22 12:18 | CT_ITS ---
[address] [address] Patient Name: PAPITO HAYDEN MRN: [id number] date: 1950 Sex: F Assigned Patient Location: CT Current Patient Location: CT Accession/Order Number: [id number] Exam Date: 07/22/2025 12:40 Report Date: 07/22/2025 15:55 At the request of: CHRIS BARNETT DO, MS Procedure: CT angio neck CT angio head, CT angio neck 07/22/2025 1:00 PM SIGNS AND SYMPTOMS: Episode of jaundice tightness with numbness and tingling of tongue, slurred speech, hypertension CONTRAST: 100 mL of intravenous Omnipaque 380 TECHNIQUE: Multi-detector CT angiography axial slices of the head were obtained before and during intravenous administration of IV contrast material. Sagittal, coronal, and 3-D reconstructions were performed and viewed on a separate workstation. CT was performed with one or more of the following dose reduction techniques: Automated exposure control, adjustment of the mA and/or kV according to patient size, or use of iterative reconstruction technique. Stenoses were measured using the NASCET criteria. COMPARISON: None. FINDINGS: CTA HEAD: The superior cerebellar arteries, posterior inferior cerebellar arteries, and the basilar artery are within normal limits. The posterior cerebral arteries are unremarkable. The intracranial segments of the internal carotid arteries are within normal limits. There are normal anterior and middle cerebral arteries. Anterior communicating artery is patent. Posterior communicating arteries are present. The deep venous system and dural venous systems appear to be patent. No bony abnormalities are appreciated. CTA NECK: There is a normal three-vessel arch. The subclavian arteries are within normal limits. The vertebral arteries arise from the subclavian arteries and are normal in course and caliber up to the skull base. The common and internal carotid arteries are normal in caliber. Mild calcified plaque is noted in the carotid bifurcations without significant stenosis. Visualized lung parenchyma is clear. No acute bony abnormalities are identified. The paraspinous soft tissues are within normal limits. CT/CT angio neck IMPRESSION: No evidence of focal stenosis, aneurysmal dilatation, dissection or occlusion. Impression dictated by: Bogdan Roman M.D. 07/22/2025 3:55 PM Dictation Location: [place] [address] Electronically authenticated by: [id number] Y Date: 07/22/2025 15:55
--- NOTE | 2025-07-22 12:18 | CT_ITS ---
The [address] [address] Patient Name: PAPITO HAYDEN MRN: [id number] date: 1950 Sex: F Assigned Patient Location: CT Current Patient Location: CT Accession/Order Number: [id number] Exam Date: 07/22/2025 12:40 Report Date: 07/22/2025 15:55 At the request of: CHRIS BARNETT DO, MS Procedure: CT angio neck CT angio head, CT angio neck 07/22/2025 1:00 PM SIGNS AND SYMPTOMS: Episode of jaundice tightness with numbness and tingling of tongue, slurred speech, hypertension CONTRAST: 100 mL of intravenous Omnipaque 380 TECHNIQUE: Multi-detector CT angiography axial slices of the head were obtained before and during intravenous administration of IV contrast material. Sagittal, coronal, and 3-D reconstructions were performed and viewed on a separate workstation. CT was performed with one or more of the following dose reduction techniques: Automated exposure control, adjustment of the mA and/or kV according to patient size, or use of iterative reconstruction technique. Stenoses were measured using the NASCET criteria. COMPARISON: None. FINDINGS: CTA HEAD: The superior cerebellar arteries, posterior inferior cerebellar arteries, and the basilar artery are within normal limits. The posterior cerebral arteries are unremarkable. The intracranial segments of the internal carotid arteries are within normal limits. There are normal anterior and middle cerebral arteries. Anterior communicating artery is patent. Posterior communicating arteries are present. The deep venous system and dural venous systems appear to be patent. No bony abnormalities are appreciated. CTA NECK: There is a normal three-vessel arch. The subclavian arteries are within normal limits. The vertebral arteries arise from the subclavian arteries and are normal in course and caliber up to the skull base. The common and internal carotid arteries are normal in caliber. Mild calcified plaque is noted in the carotid bifurcations without significant stenosis. Visualized lung parenchyma is clear. No acute bony abnormalities are identified. The paraspinous soft tissues are within normal limits. CT/CT angio head IMPRESSION: No evidence of focal stenosis, aneurysmal dilatation, dissection or occlusion. Impression dictated by: Bogdan Roman M.D. 07/22/2025 3:55 PM Dictation Location: [place] [address] Electronically authenticated by: [id number] Y Date: 07/22/2025 15:55
--- OUTSIDE RECORDS SUMMARY | 2025-07-22 12:19 | XMS_ITS | CCD ---
Author Organization [facility] Inform ion Partnership [facility] Care Team Providers Care Kennel Helper Name Role Phone FARA BOOKER Unavailable Unavailable [...] Primary Care Provider Anamaria Chinchilla Attending Unavailable Matt Richmond Admitting [...] Anjelica Gambino MD Primary Care Provider Yi, PROBATE JUDGE Matt Rosado Admitting Unavailable Yi, PROBATE JUDGE Matt Rosado Attending Unavailable Harpreet Trejo Attending Unavailable DOTTY Richmond Attending Unavailable Allergies Allergy ClassificationReported Allergen(s)Allergy TypeDate of OnsetReaction(s) Facility (6 sources)atorvastatin; Translations: [atorvastatin]Drug AllergyUnknown (qualifier value)[facility] (20 sources)HYDROmorphone; Translations: [hydromorphone]Drug Avrmvmq04-61-9871 Unknown (qualifier value), Unknown, Confusion, HallucinationsFish-[facility] (6 sources)Pyrilamine; Translations: [pyrilamine]Drug AllergyUnknown (qualifier value)[facility] (4 sources)No Known Medication Allergies; Translations: [No Known Medication Allergies]Propensity to adverse reactions (disorder)[facility] (1 source)HYDROmorphone; Translations: [Dilaudid]Drug AllergyCenterville [facility] Medications Current Medications MedicationDrug Class(es)DatesSig (Normalized)Sig (Original)amLODIPine 5 mg oral tablet (16 sources)Dihydropyridine Calcium Channel BlockerStart: 28-85-7256cgsw 1 tablet by mouth in the morningamLODIPine (Norvasc) 5 MG tablet Take 5 mg by mouth in the morning. 06/01/2023 Activeaspirin 81 mg oral capsule (18 sources)Platelet Aggregation Inhibitor, Nonsteroidal Anti-inflammatory Drug Start: 99-26-2338gbct 1 capsule by mouth every other dayaspirin 81 mg oral capsule See Instructions, 1 cap(s) Oral every other day, Refills(s) 0 Start Date: 11/29/22 Status: OrderedStart: 49-09-2225zhzl 1 capsule by mouth once daily aspirin [...] 0.01 mg drug implant (14 sources)Prostaglandin AnalogStart: 00-98-3443Dfvraeq 10 mcg intraocular implant mcg, IntraOcular, Once, Refills(s) 0 Start Date: 07/13/24 Status: OrderedStart: 80-78-9803ptdioydmcke 0.03% ophthalmic solution Refill(s) 0 Start Date: [...] ActiveCalcium Citrate / Vitamin D (3 sources)Start: 41-79-3410pipabxn-vitamin D Daily, Refill(s) 0 Start Date: 05/30/23 Status: ZqpkyjqVqpfxic-Eakuppfkwt-Ujrlize D (VITAMIN D3/CALCIUM/PHOSPHORUS PO) (8 sources)take 1 dose by mouth once in the llipzvyQlgjgte-Pmnsnpssny-Klrepgf D (VITAMIN D3/CALCIUM/PHOSPHORUS PO) Take 1 each by mouth in the morning. Active denosumab (13 sources)RANK Ligand InhibitorStart: 67-61-0540Knldmqmzw (PROLIA SC) Inject 1 Units under the [...] 0 Activedocusate sodium 50 mg / sennosides, correction 8.6 mg oral tablet (2 sources)Start: 74-95-5554qqfj 1 tablet by mouth in the morningsennosides- docusate sodium (SENOKOT-S) 8.6-50 mg Take 1 tablet by mouth in the morning. 60 tablet 11/14/2023 Activedoxycycline hyclate 100 mg oral capsule (1 source)Tetracycline-class DrugStart: 05-07-2024 End: 06-80-3669gmas 1 capsule by mouth twice dailydoxycycline hyclate 100 mg Cap 100 mg = 1 cap(s), Oral, BID, X 7 day(s), # 14 cap(s), Refills(s) 0,Pharmacy: [facility] [id number], 162, cm, 05/07/24 14:07:00 EDT, Height/Length Dosing, 76, kg, 05/07/24 14:07:00 EDT, Weight Dosing Start Date: 05/07/24 Stop Date: 05/14/24 Status: Orderedglucosamine hydrochloride 1500 mg oral tablet (5 sources)Start: 30-45-9351accwgmibswm hydrochloride 1500 mg oral tablet 1,500 mg, 1 tab(s), Oral, Daily, 30 tab(s), Refill(s)0 Start Date: 12/01/22 Status: Ordered End: 19-60-2053olcy 1 capsule by mouth once dailyglucosamine sulfate [...] oil 500 mg oral capsule (12 sources)Start: 02-90-7167Dthft Oil (Old Lyme-3) 500 MG capsule Take 500 mg by mouth. 12/01/2022 Activelosartan potassium 100 mg oral tablet (16 sources)Angiotensin 2 Receptor BlockerStart: 58-03-9088uvfc 1 tablet by mouth in the morninglosartan (Cozaar) 100 MG tablet Take 100 mg by mouth in the morning. 05/30/2023 ActiveStart: 03-62-4166aqjx 1 tablet by mouth twice daily losartan 25 mg Tab 25 mg = 1 tab(s), Oral, BID, # 180 tab(s), Refills(s) 0, Pharmacy: [facility] [id number], 162, cm, 05/11/23 9:36:00 EDT, Height/Length Dosing, 74.9, kg, 05/11/23 9:36:00 EDT, Weight Dosing Start Date: 05/11/23 Status: Orderedmeloxicam 15 mg oral tablet (6 sources)Nonsteroidal Anti-inflammatory DrugStart: 02-27-2023 End: 61-70-8841mqkl 1 tablet by mouth once daily as neededmeloxicam 15 mg Tab See Instructions, TAKE ONE TABLET BY MOUTH DAILY NEEDED, # 90 tab(s), Refills (s) 0, Pharmacy: [facility] [id number], 162.6, cm, 12/01/22 15:23:00 EDT, Height/Length Dosing, 76.5, kg, 12/01/22 15:23:00 EDT, Weight Dosing Start Date: 02/27/23 Status: Orderednitrofurantoin, macrocrystals 25 mg / nitrofurantoin, monohydrate 75 mg oral capsule (1 source)Nitrofuran AntibacterialStart: 10-19-2024 End: 93-90-3597jjjr 1 capsule by mouth twice dailyMacrobid 100 mg Cap 100 mg = 1 cap(s), Oral, BID, X 7 day(s), # 14 cap(s), Refills(s) 0, Pharmacy: [facility] [id number], 162, cm, 09/17/24 9:18:00 EST, Height/Length Dosing, 77.9, kg, 09/17/24 9:18:00 EST, Weight Dosing Start Date: 10/19/24 Stop Date: 10/26/24 Status: Orderedomega-3 acid ethyl esters (correction) 1000 mg oral capsule (2 sources)take 1 [...] mg oral tablet (18 sources)HMG-CoA Reductase InhibitorStart: 83-75-7085ljdluylqpddk (Crestor) 20 MG tablet Take 20 mg by mouth. 12/01/2022 Activetafluprost 0.015 mg/ml ophthalmic solution (5 sources)Prostaglandin AnalogStart: 11-51-2575gyla 1 drop(s) into the eye(s) once dailyZioptan 0.0015% ophthalmic solution See Instructions, Refill(s) 0, 1 drop(s) Eye-Right & Left once daily Start Date: 05/11/23 Status: Ordered End: 59-08-1230xbpa 1 drop(s) into the eye(s) once dailytafluprost (PF) 0.0015 % eye drops in a dropperette 02/27/2025 instill 1 drop into affected eye(s) by ophthalmic route once daily End: 92-32-8244Cfrzzwmjol, PF, (Zioptan) 0.0015 % solution Administer 1 drop into affected eye(s) in the morning. 08/28/2024 DiscontinuedtiZANidine 4 mg oral tablet (1 source)Central alpha-2 Adrenergic AgonistStart: 83-45-8798rlQMCtgpzs 4 mg Tab 12 tab(s), 0 Refill(s), Refills(s) 0 Start Date: 07/13/24 Status: Ordered Vitamin D3 (2 sources)Start: 59-78-6938Qzqjbsf D3 Refills(s) 0 Start Date: 07/30/24 Status: Orderedvitamin e 450 mg oral capsule (17 sources)Start: 13-07-9726moec 1 capsule by mouth once dailyvitamin E 450 mg oral capsule See Instructions, take one daily 400mg, Refills(s) 0 Start Date: 12/01/22 Status: OrderedStart: 61-13-3976dxeuq tocopherol (Vitamin E) 1000 units capsule See [...] mg oral tablet (1 source)Start: 11-14-2023 End: 83-56-6519wiut 1 tablet by mouth every six hours as needed for pain acetaminophen (TYLENOL EXTRA STRENGTH) 500 mg tablet Take 1 tablet (500 mg total) by mouth every 6 (six) hours as needed for pain. 60 tablet 0 11/14/2023 11/29/2023 Discontinued (Therapy completed)acetaminophen 325 mg / HYDROcodone bitartrate 5 mg oral tablet (1 source)Opioid Agonist End: 64-19-8795flex 1 tablet by mouth every six hours as needed for pain hydrocodone 5 mg-acetaminophen 325 mg tablet 02/27/2025 take 1 tablet by oral route every 6 hours as needed for painalendronic acid 70 mg oral tablet (4 sources)Bisphosphonate End: 37-33-0996lpmu 1 tablet by mouth in the morningalendronate [...] oral tablet (4 sources)HMG-CoA Reductase Inhibitor End: 10-57-8796ughg 1 tablet by mouth once dailyatorvastatin (LIPITOR) 10 mg tablet Take 10 mg by mouth daily. 0 11/07/2023 Discontinued (Therapy completed) betamethasone 3 mg/ml / betamethasone acetate 3 mg/ml injectable suspension (1 source)Corticosteroid End: 67-86-4452Ktotolemm Soluspan 6 mg/mL suspension for injection 02/27/2025 [...] tablet (1 source)Nonsteroidal Anti-inflammatory DrugStart: 11-14-2023 End: 95-06-5910vzyq 1 tablet by mouth every six hours as needed for pain ibuprofen (MOTRIN) 800 mg tablet Take 1 tablet (800 mg total) by mouth every 6 (six) hours as needed for pain. 60 tablet 0 11/14/2023 11/29/2023 Discontinued (Therapy completed)methylPREDNISolone 4 mg oral tablet (1 source)Corticosteroid End: 40-47-3146Svheax (Morro) 4 mg tablets in a dose pack 02/27/2025 take by oral route as directed per package instructionsomega-3 fatty acids-fish oil (FISH OIL) 300-1,000 mg capsule (4 sources) End: 48-58-0038lecp 1 capsule by mouth once dailyomega-3 fatty acids-fish oil (FISH OIL) 300-1,000 mg capsule Take 1 g by mouth daily. 0 11/07/2023 D iscontinued (Therapy completed)take 1 capsule by mouth once dailyomega-3 fatty acids-fish oil (FISH OIL) 300-1,000 mg capsule Take 1 g by mouth daily. 0 Active oxyCODONE hydrochloride 5 mg oral tablet (1 source)Opioid AgonistStart: 11-14-2023 End: 07-53-4766twqe 1 tablet by mouth every six hours as needed for pain oxyCODONE (ROXICODONE) 5 mg immediate release tablet Indications: Post-operative pain Take 1 tablet(5 mg total) by mouth every 6 (six) hours as needed for pain for up to 12 doses. Max Daily Amount: 20 mg 12 tablet 0 11/14/2023 11/29/2023 Discontinued (Therapy completed)psyllium 400 mg oral capsule (10 sources) End: 65-91-9630rlam 1 capsule by mouth once dailyMetamucil 0.4 gram capsule 02/27/2025 take 1 capsule by oral route daily End: 25-40-6430zgcbambz (Metamucil) 48.57 % powder Orally 08/28/2024 Discontinuedtake 1 dose by mouth in the morningpsyllium (METAMUCIL) 3.4 gram packet Indications: constipation Take 1 packet (3.4 g total) by mouthin the morning. Indications: constipation. Activestool softner (2 sources)Start: 58-22-0102ejhgp softner stool softner, 100 mg, Oral, Bedtime, take 2 Start Date: 07/30/24 Status: Orderedvitamin E oral 180mg (1 source)vitamin E oral 180mg 1 nightly Problems Active Problems Problem ClassificationProblemDateDocumented DateEpisodic/ChronicAbdominal pain (4 sources)Right sided abdominal nrco78-91-1708AvyxihwbByqzpjl kidney disease (3 sources)Chronic kidney disease stage 3A ; Translations: [Chronic kidney disease stage 3B ]08-85-1589GkvngupTvcymoq on above:Added per Dr. Chinchilla query response, per outpatient CDI policy.Deficiency and other anemia (2 sources)Jvctsg20-88-9756MrvfzoyjFksjqnhqy of lipid metabolism (20 sources)Pure hypercholesterolemia, unspecified; Translations: [Hypercholesterolemia]Onset: 62-12-2116OmoknicHaflnccnc hypertension (17 sources)Essential (primary) hypertension; Translations: [Hypertensive disorder]Onset: 65-21-5523YzhwakzZazqsjdt (1 source)Unspecified glaucomaChronicHeart valve disorders (1 source)Rheumatic disorders of both mitral and tricuspid valves; Translations: [RHEUMATIC D/O MITRAL TRICUSPID VALV]Onset: 31-40-6852CriookgJrfkxpdjofvm with complications and secondary hypertension (3 sources)Hypertensive renal skxivfi85-11-8912LmktytcPldambr on above:Linked per outpatient CDI policy.Malaise and fatigue (2 sources)Osqfpcj50-43-1298FqdwmnjsOpmsqiiifj disorders (11 sources)Postmenopausal bleeding; Translations: [Postmenopausal bleeding] Onset: 10-27-2023 Resolved: 027073-28-4890GfqnjmwFagtxjqmyftkif (14 sources)Arthritis; Translations: [Unspecified osteoarthritis, unspecified site]Onset: 430126-85-7210PcruzywExtbabqwimtb (15 sources)Senile osteoporosis; Translations: [Age-related osteoporosis without current pathological fracture]Onset: 679400-09-8125CkhjsbjLvanp aftercare (1 source)Encounter for other specified surgical aftercare; Translations: [Encounter for other specified surgical aftercare]Onset: 54-03-9356QdnkldpwIrnvd connective tissue disease (4 sources)Pain in left foot; Translations: [PAIN IN LEFT FOOT]Onset: 08-03-2022 EpisodicOther connective tissue disease (3 sources)Foot mddj32-97-0179HtjpzkxmThnys connective tissue disease (1 source)Biceps dnigvroyut64-56-3624VljeumouGcnnp connective tissue disease (1 source)Pain in left oav61-81-0614VjsbhlluPojne connective tissue disease (1 source)Pain in right legOnset: 11-45-7901JugbunfuQovik connective tissue disease (1 source)Pain in left legOnset: 68-71-8581DuauvnaeDnqvf injuries and conditions due to external causes (2 sources)Cat bite - emxxm42-06-3146AwibjfhsRkcbe lower respiratory disease (2 sources)Chronic -93-2660IqnzpnnjYolmk nervous system disorders (1 source)Other acute postprocedural pain; Translations: [Other acute postprocedural pain]Onset: 23-88-1608OzkuapzbBvkrd nervous system disorders (1 source)Other disturbances of skin sensationOnset: 23-73-3415JwcupxxqZwlou nutritional; endocrine; and metabolic disorders (3 sources)Overweight in adulthood with body mass index of 25 or more but less than 3710-49-0025NgjmvlujIqjdfhms codes; unclassified (1 source)Pain, unspecified; Translations: [Pain, unspecified]Onset: 10-19-2023 EpisodicResidual codes; unclassified (2 sources)Postmenopausal state; Translations: [Asymptomatic menopausal state] 10-79-0830RrnenbqyWqzrvxx (1 source)Mnfgqtf97-52-0138EhqvelewFoacrknop cerebral ischemia (17 sources)Transient cerebral ischemic attack, unspecified; Translations: [Transient cerebral ischemia]Onset: 99-02-3978JsizercVauolajlwzpf (7 sources)Encounter for screening mammogram for malignant neoplasm of breast; Translations: [Patient encounter status]Onset: 75-50-5368NamlqwncTceqhvubkjcb (1 source)THICKENED ENDOMETRUM/POST MENOPAUSAL BLEEDING/CERVICAL STENOSISOnset: 87-04-7544Atavnzjdsyjc (1 source)Patient encounter nwftcu80-99-2364Jaxsdlm tract infections (4 sources)Urinary tract infection, site not specified; Translations: [UTI SITE NOT SPECIFIED]Onset: 08-35-7285Dbwogsqa Past or Other Problems Problem ClassificationProblemDateDocumented DateEpisodic/ChronicCardiac dysrhythmias (4 sources)Palpitations; Translations: [PALPITATIONS]Onset: 00-95-1668Hpcnuoeq Deficiency and other anemia (14 sources)Iron deficiency anemia; Translations: [Iron deficiency anemia, unspecified]Onset: 092891-51-2921MnvtxzegErepuzkp mellitus without complication (1 source)Hyperglycemia, unspecified; Translations: [HYPERGLYCEMIA UNSPECIFIED] Onset: 44-98-0626AsiyoeyuRyzgx aftercare (2 sources)Postoperative visit; Translations: [Encounter for other specified surgical aftercare]55-34-5961DoazhksuMzczf and unspecified benign neoplasm (8 sources)History of polyp of colon; Translations: [History of colon polyps] Onset: 410293-39-3397TjqnebuoQgywp bone disease and musculoskeletal deformities (1 source)Other specified disorders of bone density and structure, unspecified site; Translations: [OTH D/O BONE DEN STRUCT UNS SITE]Onset: 30-66-2208Jdkpflfy Other screening for suspected conditions (not mental disorders or infectious disease) (7 sources)Abnormal findings on diagnostic imaging of other specified body structures; Translations: [Endometrium thickened]Onset: 10-27-2023 Resolved: 130695-18-0346KciwznzRadsrnvw codes; unclassified (1 source)Family history of malignant neoplasm of breast; Translations: [FAMILY HX MALIG NEOPLASM OF BREAST]Onset: 83-19-0011KtsjvptcWvsreolz codes; unclassified (1 source)Family history of malignant neoplasm of trachea, bronchus and lung; Translations: [FAM HX MALIG NEOPLSM TRACH BRON LNG]Onset: 38-34-6768Hzitsagf Unclassified (5 sources)Asymptomatic menopausal state; Translations: [Asymptomatic menopausal state]Onset: 04-06-4976Zurtgevi Results Test NameValueInterpretationReference RangeFacilityC Urineon 90-62-8369Xjbbpekg identified Cx Nom (U)Microbiology PROCEDURE: Urine Culture [...] Locations R1: This test was performed at: [facility], [address] [place] [address], [facility] , , BjkulvLbfoouAdams County HospitalComment on above:Performed By: #### [id number] #### [facility] [address] [place] [address] TOMOSYNTHESIS SCREENING BIon 84-01-0306[place] [address] Mammography Report Signed Patient: ISAURA HAYDEN MR#: [id number] : 1950 Acct:[id number] Age/Sex: 74 / F ADM Date: 04/15/25 Loc: MAMMO Attending Dr: Bentley Das D.O. Ordering Physician: Bentley Das D.O. Results: Date of Service: 04/15/25 Follow Up: Procedure(s): MM tomosynthesis screening Accession Number(s): [id number] cc: Bentley Das D.O.; YIMATT MARK Patient Name: ISAURA HAYDEN MR#: [id number] : 1950 Exam Date: 04/15/2025 Ordering Doctor: [...] lung cancer at age 72. LOCATION: [facility] BREAST COMPOSITION: There are scattered areas [...] Signed By: 04/15/25 1019 DD/ 1018 TD/TT: Water Plant Operator:TBHRadiology, Radiologist, MD - 04/15/2025 [place] [address] Mammography Report Signed Patient: ISAURA HAYDEN MR#: [id number] : 1950 Acct:[id number] Age/Sex: 74 / F ADM Date: 04/15/25 Loc: MAMMO Attending Dr: Bentley Das D.O. Ordering Physician: Bentley Das D.O. Results: Date of Service: 04/15/25 Follow Up: Procedure(s): MM tomosynthesis screening BI Accession Number(s): [id number] cc: Bentley Das D.O.; MATT RICHMOND Patient Name: ISAURA HAYDEN MR#: [id number] : 1950 Exam Date: 04/15/2025 Ordering Doctor: [...] lung cancer at age 72. LOCATION: [facility] BREAST COMPOSITION: There are scattered areas [...] Signed By: 04/15/25 1019 DD/ 1018 TD/TT: Water Plant Operator: [facility] CenterRadiology Study observation (narrative)[facility] TOMOSYNTHESIS SCREENING BIOrdered By: Radiologist Radiology on 18-42-3539FHBKSaint John's Regional Health Center Work Phone: cCF CALCIUMon 07-36-2933Puskqnl [Mass/Vol]9.1 mg/dL8.5 - 10.1 mg/dLSaint John's Regional Health CenterNo Panel Informationon 32-93-6298HJQITZECTXHAO HealthcareTBH CREATININEon 74-21-7023Gzswnpwjqx [Mass/Vol]1.28 mg/dLHigh0.55 - 1.02 mg/dLNOSainte Genevieve County Memorial HospitalGFR/1.73 sq M.predicted CKD-EPI (S/P/Bld) [Vol rate/Area]50Low>=60 mL/min/1.73m 2NOMS HealthcareInterpretation and review of laboratory resultsAbnormalNOMS HealthcareTBH EGFR-NON AF MANHRXDT76Ikz>=60 mL/min/1.73m 2NOMS HealthcareNo Panel Informationon 47-67-7285Upeqobp smoking statusNon-SmokerInvalid Interpretation Yellloh Ambulatory Visit Summaryon 65-79-7959Meieectcsc Visit SummaryAmbulatory Visit Summary ISAURA HAYDEN :1950 [...] Follow-Up Appointments 2024 11:00 AM EST Where: [place] [id number]- Medications What How Much When Instructions Unchanged amlodipine (amLODIPine 5 mg Tab) See instructions TAKE 1 TABLET BY MOUTH DAILY Pickup at [facility] [id number] Unchanged aspirin (aspirin 81 mg oral capsule) [...] physician if questions or concerns Pharmacy Information [facility] [id number]: [address], [place] [phone] Allergies Dilaudid (Unknown) Problems Ongoing - Any [...] you for choosing us for your care. [facility] Medicine Office/Clinic Noteon 83-93-4002Wngwpl Medicine Office/Clinic NoteFacentral hospital Medicine Office/Clinic Note Chief Complaint 6 [...] DAILY, # 90 tab(s), Refills(s) 1, Pharmacy: [facility] [id number], 162, cm, 01/28/25 9:01:00 EDT, Height/Length Dosing, 78.1, kg, 01/28/25 9:01:00 EDT, Weight Dosing - 74-year-old female with a history of hypertension, chronic kidney disease, and bursitis presenting for management. - Hypertension is well-monitored with appropriate medicative support. - Chronic kidney disease requires continued diligence in management. - Bursitis is under treatment, affecting lifestyle and mobility. - Medication regimens f (more content not included)...Ad[facility] County HospitalComment on above:Result Comment: Electronically Signed By: Amor SHORT, Anamaria Saldivar.kelly\Date and Time Signed: 01/28/25 09:32 EDTReminderson 28-14-4781Pzmuaiicv Reminders From: Matt Allen To: [facility] - Clinical; Sent: 10/22/2024 08:07:37 EST Show up: 10/22/2024 08:07:00 EST Subject: Ambulatory Reminder Due Date/Time: 10/23/2024 08:06:00 EST urine culture was positive. she is on the correct antibiotic. continue that until it is gone. Is she feeling better? Results: Date Result Type Ind Result Name 10/19/2024 10:39 EST MBO POS Urine Culture From: Maryanne Cramer M.A. ([facility] - Clinical) To: Matt Allen; Sent: 10/22/2024 09:32:36 EST Show up: 10/22/2024 09:31:00 EST Subject: RE: Ambulatory Reminder understands, and she said she is feeling a lot better than what she wasNormal [facility] HospitalRemindersReminderenedina From: Matt Allen To: [facility] - Clinical; Sent: 10/22/2024 08:07:37 EST Show up: 10/22/2024 08:07:00 EST Subject: Ambulatory Reminder Due Date/Time: 10/23/2024 08:06:00 EST urine culture was positive. she is on the correct antibiotic. continue that until it is gone. Is she feeling better? Results: Date Result Type Ind Result Name 10/19/2024 10:39 EST MBO POS [facility]NoSal[facility] Urineon 63-29-4014Kcjmnbwz identified Cx Nom (U)Microbiology PROCEDURE: Urine Culture [...] Locations R1: This test was performed at: [facility], [address] [place] [address], [address] , , DwklmlSahxkrAdams County HospitalComment on above:Performed By: #### [id number] #### [facility] [address] [place] [id number] CALCIUMon 88-42-6023Ibujuqe [Mass/Vol]8.9 mg/dL8.5 - 10.1 mg/dLNOMS HealthcareCLINISYNCNOMS HealthcareFami Medicine Office/Clinic Noteon 71-97-5893Lozflf Medicine Office/Clinic NoteFamily Medicine Office/Clinic Note HPI [...] and her call the squad transferred to [facility] she did vomit a few times [...] Assessment/Plan 1. Cat bite of lower leg (S81.109A: Open bite, unspecified lower leg, initial encounter) [...] her called 911 and was taken to [facility]. was hydrated with IV fluids and [...] tendinitis, unspecified shoulder) pt was [facility] at [facility] ortho Dr. Keith to go [...] refusal pneumococcal 23-valent v (more content not included)...[facility] County HospitalComment on above:Result Comment: Electronically Signed By: Matt Allen\.br\Date and Time Signed: 09/17/24 11:46 [facility] ANAon 09-13-2024 KARLEE Pre No anaerobic growth after 48 hrs.[facility] HospitalComment on above:Performed By: #### ANAC #### [address] [id number] Woundon 09-13-2024 Wound Final No growth at 48 hours.[facility]uder HospitalComment on above: Performed By: #### WD #### [address] [address]Qvcokt Medicine Office/Clinic Noteon 36-47-0457Inpwbk Medicine Office/Clinic NoteFacentral hospital Medicine Office/Clinic Note HPI Staff Isaura is a 74 year old female presenting with a cat bite on right ankle Onset: History of Present Illness Pt was bit 1-2 days before presenting to me. Seen in [facility] who started the patient on Abx. Area [...] inactivated 05/17/2011 Recorded pneumococcal 23-valent vaccine 06/25/2008 RecordedAdams County HospitalComment on above:Result Comment: Electronically Signed By: Anamaria Chinchilla MD\.br\Date and Time Signed: 09/11/24 12:15 ESTOR Trackon 39-71-3408Kojqgqopo Received FromKindred Hospital LimaComment on above:Performed By: #### Outreach Tracking Order #### [facility] [address] [place], [place] [address]Oiufiwvwdy Visit Summaryon 65-03-0188Dlfsxplgmk Visit Summary Ambulatory Visit Summary ISAURA HAYDEN [...] AM EDT With: Anamaria Chinchilla MD Where: [facility] [address]- 2024 11:00 AM EST With: Where: [address] [address]- Medications What How Much When Instructions Unchanged [...] you for choosing us for your care. [facility] HospitalAmbulatory Visit Summaryon 39-32-3364Jibvpctzbz Visit SummaryAmbulatory Visit Summary ISAURA HAYDEN :1950 [...] EDT With: Anamaria Chinchilla MD Where: [address] [phone]- 2024 11:00 AM EST With: Where: [address] [address]- Medications What How Much When Instructions Unchanged [...] you for choosing us for your care. [facility] Medicine Office/Clinic Noteon 38-13-8653Cervlz Medicine Office/Clinic NoteFacentral hospital Medicine Office/Clinic Note Chief Complaint Pain [...] ortho for this. Follow up PRN Ordered: [facility] External Ambulatory Referral 2. CKD stage 3a, GFR 45-59 ml/min (N18.31: Chronic kidney disease, stage 3a) Improved on last lab work. Follow up PRN Ordered: A1c POC [address] [facility] External Ambulatory Referral 3. BMI 29.0-29.9,adult (Z68.29: Body mass index [BMI] 29.0-29.9, adult) BMI education added Ordered: [facility] External Ambulatory Referral 4. Age-related osteoporosis without current pathological fracture (M81.0: Age- related osteoporosis without current pathological fracture) Reviewed Labs and Dexa. Prolia does not seem to be helping. Follows with Dr. Das. Ordered: [facility] External Ambulatory Referral Follow-up No qualifying data [...] Results Hgb A1c POC: 5.2 % (08/27/24 12:02:00)NormalAvita Health System Bucyrus HospitalComment on above:Result Comment: Electronically Signed By: Amor SHORT, Anamaria Saldivar.br\Date and Time Signed: 08/27/24 12:03 ESTCBC w/ Auto Diffon 77-35-6775Nvngxnyob/100 WBC (Bld)0.7 %Normal0.0-2.0[facility] Bucyrus HospitalComment on above:Performed By: #### [id number] #### [facility] [address], [place] [address]Rfsaeaodb/Leukocytes Auto (Bld) [Pure # fraction]0.1 E9/LNormal 0.0-0.2Fisher [facility]itus Medical CenterComment on above:Performed By: #### [id number] #### [facility] [address], [place] [address]Xucbbkfalzg (Bld) [#/Vol]0.3 E9/LNormal0.0-0.5FBlanchard Valley Health SystemComment on above:Performed By: #### [id number] #### [facility] [address], [place] [address]Cigbfqbrtbc/100 WBC (Bld)3.2 %Normal0.0-8.0[facility] HospitalComment on above:Performed By: #### [id number] #### [facility] [address], [place] [address]Ktayfxdymfn distribution width (RBC) [Ratio]13.7 %Normal 10.9-14.2FBlanchard Valley Health SystemComment on above:Performed By: #### [id number] #### [facility] [address] [place] [address]Bbgkbtylmv (Bld) [Volume fraction]36.1 %Tkzloc14.0-46.0[facility] HospitalComment on above:Performed By: #### [id number] #### [facility] [address] [place] [address]Yrzkhzcbdm (Bld) [Mass/Vol]12.3 g/jCKlrrsp61.0-16.0[facility] HospitalComment on above:Performed By: #### [id number] #### [facility] [address] [place] [address]Pxlflyuugfr (Bld) [#/Vol]1.7 E9/LNormal1.0-4.0[facility] HospitalComment on above:Performed By: #### [id number] #### [facility] [address], [place] [address]Iqfxhbsfluj/100 WBC (Bld)20.6 %Nvkzip37.0-50.0[facility] HospitalComment on above:Performed By: #### [id number] #### [facility] [address] [place] [address]LCE (RBC) [Entitic mass]33.6 xgJxqvxb60.0-34.0[facility] HospitalComment on above:Performed By: #### [id number] #### [facility] [address] [place] [address]TAOV (RBC) [Mass/Vol]34.1 g/oZTqyfrv35.4-36.0[facility] HospitalComment on above:Performed By: #### [id number] #### [facility] [address] [place] [address]ZWK (RBC) [Entitic vol]98.7 xUJwfunh20.0-100.0[facility] HospitalComment on above:Performed By: #### [id number] #### [facility] [address] [place] [address]Enfzsxpuq (Bld) [#/Vol]0.6 E9/LNormal0.2-1.0[facility] HospitalComment on above:Performed By: #### [id number] #### [facility] [address] [place] [address]Xhrflmozcig (Bld) [#/Vol]5.8 E9/LNormal2.0-7.5FBlanchard Valley Health SystemComment on above:Performed By: #### [id number] #### [facility] [address] [place] [address]Axgwpvsvkic/100 WBC (Bld)68.8 %Lnxsgi73.0-75.0[facility] HospitalComment on above:Performed By: #### [id number] #### [facility] [address] [place] [address]Mkbfwzay872.0 E9/OInhkin195.0-500.0[facility] Comment on above:Performed By: #### [id number] #### [facility] [address] [place] [address]Dgsuboxv mean volume (Bld) [Entitic vol]8.4 fLNormal6.4-10.8 [facility] HospitalComment on above:Performed By: #### [id number] #### [facility] [address], [place] [address]DVQ (Bld) [#/Vol]3.7 E12/LLow4.3-5.9[facility] Comment on above:Performed By: #### [id number] #### [facility] [address], [place] [address]VPT corrected for nucl RBC Auto (Bld) [#/Vol]8.5 E9/LNormal 4.0-11.0[facility] HospitalComment on above:Performed By: #### [id number] #### [facility] [address], [place] [address]RNZJOGVOLSfrgoxu By: SYSTEM SYSTEM on - hydroxyvitamin D3 [Mass/Vol]36.9 ng/yIVwukdp39.0 - 100.0 ng/mLRemisol Chem Albumin [Mass/Vol]4.4 g/dLNormal3.3 - 5.0 gm/dLRemisol ChemAlbumin/Globulin [Mass ratio]1.6 {ratio}Normal1.1 - 2.2Remisol ChemALP [Catalytic activity/Vol]52 [iU]/uAffxyp08 - 98 Int._Unit/LRemisol ChemALT No additional P-5'-P [Catalytic activity/Vol]14 [iU]/dNormal6 - 46 Int._Unit/LRemisol ChemAnion gap [Moles/Vol] 11 mmol/LNormal6 - 16 mEq/LRemisol ChemAST [Catalytic activity/Vol]18 [iU]/d Normal5 - 43 Int._Unit/LRemisol ChemBilirubin [Mass/Vol]0.9 mg/dLNormal0.0 - 1.1 mg/dLRemisol ChemCalcium [Mass/Vol]8.9 mg/dLNormal8.9 - 11.1 mg/dLRemisol Chem Chloride [Moles/Vol]107 mmol/YXufwrr677 - 111 mmol/LRemisol ChemCholesterol [Mass/Vol]208 mg/lRDpot398 - 200 mg/dLRemisol ChemCholesterol in HDL [Mass/Vol] 64 mg/dLInvalid Interpretation CodeRemisol ChemComment on above:Result Comment: '>= 60 LOW RISK' '<= 40 HIGH RISK'Cholesterol in LDL [Mass/Vol]104 mg/dLNormal<=129mg/dLRemisol ChemCholesterol in VLDL [Mass/Vol]36 mg/dLNormal7 - 40 mg/dLRemisol ChemCO2 [Moles/Vol]27 mmol/NKvbqwn02 - 31 mmol/LRemisol ChemCobalamin (Vitamin B12) [Mass/Vol]253 pg/mBDwcmek46 - 1500 pg/mLRemisol ChemCreatinine [Mass/Vol]1.1 mg/dLNormal0.5 - 1.3 mg/dLRemisol YdkpjHKU06 mL/min/1.73 m2Low>=59mL/min/1.73 m2 Remisol ChemGlobulin (S) [Mass/Vol]2.8 g/dLNormal1.4 - 4.0 gm/dLRemisol Chem Glucose [Mass/Vol]105 mg/uXXnynzp83 - 199 mg/dLRemisol ChemPotassium [Moles/Vol] 4.1 mmol/LNormal3.5 - 5.3 mmol/LRemisol ChemProtein [Mass/Vol]7.2 g/dLNormal6.0 - 7.8 gm/dLRemisol ChemSodium [Moles/Vol]141 mmol/BYzmmlo718 - 145 mmol/LRemisol ChemTriglyceride [Mass/Vol]182 mg/dLHigh<=149mg/dLRemisol ChemTSH Qn2.85 m[IU]/LNormal0.34 - 5.60 mcIU/mLRemisol ChemUrea nitrogen [Mass/Vol]15 mg/dL Normal5 - 21 mg/dLRemisol ChemUrea nitrogen/Creatinine [Mass ratio]14 mg/mg Wbevqu80 - 20Remisol ChemCHEMISTRYOrdered By: Nato Cheung on 08-09-2024 Albumin DL <= 20 mg/L (U) [Mass/Vol]mg/dLNormal0.0 - 1.9 mg/dLRemisol Chem Albumin/Creatinine DL <= 20 mg/L (U) [Mass ratio]NOT CALCULATEDInvalid Interpretation Code0.0 - 30.0Remisol ChemComment on above:Interpretive Data: 30- 300 mg/g Cr indicates an increased risk for diabetic nephropathy. >300 mg/g Cr is consistent with clinical nephropathy.U Qaakarfgpz330.3 mg/dL Invalid Interpretation CodeRemisol ChemCMPon 92-84-1148Bofddmk [Mass/Vol]4.4 g/dLNormal3.3-5.0[facility] HospitalComment on above:Performed By: #### [id number] #### [facility] [address], [place] [address]Cbqfbhd/Globulin (S) [Mass conc ratio]1.8Dilfdi9.1-2.2FBlanchard Valley Health SystemComment on above:Performed By: #### [id number] #### [facility] [address] [place] [address]EUR [Catalytic activity/Vol]52 Int._Unit/EIycagq35-93LgvjjtAvita Health System Bucyrus HospitalComment on above:Performed By: #### [id number] #### [facility] [address], [place] [address]CYB No additional P-5'-P [Catalytic activity/Vol]14 Int._Unit/L Normal6-46[facility] HospitalComment on above:Performed By: #### [id number] #### [facility] [address] [place] [address]Vxkcp gap [Moles/Vol]11 mmol/LNormal6-16[facility] HospitalComment on above:Performed By: #### [id number] #### [facility] [address], [place] [address]XRT [Catalytic activity/Vol]18 Int._Unit/LNormal5-43[facility] HospitalComment on above:Performed By: #### [id number] #### [facility] [address] [place] [address]Okeopfkwf [Mass/Vol]0.9 mg/dLNormal0.0-1.1FBlanchard Valley Health SystemComment on above:Performed By: #### [id number] #### [facility] [address], [place] [address]Vqbqtzg [Mass/Vol]8.9 mg/dLNormal8.9-11.1FBlanchard Valley Health SystemComment on above:Performed By: #### [id number] #### [facility] [address], [place] [address]Jszqqjki [Moles/Vol]107 mmol/YWiztxr620-808FykhjdAvita Health System Bucyrus HospitalComment on above:Performed By: #### [id number] #### [facility] [address], [place] [address]PX6 [Moles/Vol]27 mmol/VRnfyqe83-86FijysvAvita Health System Bucyrus Hospital Comment on above:Performed By: #### [id number] #### [facility] [address], [place] [address]Skmujrwmoj [Mass/Vol]1.1 mg/dLNormal0.5-1.3FBlanchard Valley Health SystemComment on above:Performed By: #### [id number] #### [facility] [address], [place] [address]Eurrfsvv (S) [Mass/Vol]2.8 g/dLNormal1.4-4.0[facility] HospitalComment on above:Performed By: #### [id number] #### [facility] [address], [place] [address]Fzqlgcw [Mass/Vol]105 mg/aHEthhiz94-317PerbluAvita Health System Bucyrus HospitalComment on above:Performed By: #### [id number] #### [facility] [address], [place] [address]Porxdpzfa [Moles/Vol]4.1 mmol/LNormal3.5-5.3FBlanchard Valley Health SystemComment on above:Performed By: #### [id number] #### [facility] [address], [place] [address]Vtcydqj [Mass/Vol]7.2 g/dLNormal6.0-7.8[facility] HospitalComment on above:Performed By: #### [id number] #### [facility] [address], [place] [address]Lqlkla [Moles/Vol]141 mmol/PPgxpmp115-128VqddjqAvita Health System Bucyrus HospitalComment on above:Performed By: #### [id number] #### [facility] [address], [place] [address]Srhy nitrogen [Mass/Vol]15 mg/dLNormal5-21[facility] HospitalComment on above:Performed By: #### [id number] #### [facility] [address], [place] [address]Wefy nitrogen/Creatinine [Mass ratio]14 No MjvzfZchisx24-32 [facility] HospitalComment on above:Performed By: #### [id number] #### [facility] [address], [place] [address]LTRHXECYBDVzhugxi By: SYSTEM SYSTEM on 85-28-8659Fucnbjhdq/100 WBC (Bld)0.7 %Normal0.0 - 2.0 %Remisol HemeBasophils/Leukocytes Auto (Bld) [Pure # fraction]0.1 E9/LNormal0.0 - 0.2 E9/LRemisol HemeEosinophils (Bld) [#/Vol]0.3 E9/LNormal0.0 - 0.5 E9/LRemisol HemeEosinophils/100 WBC (Bld)3.2 %Normal0.0 - 8.0 %Remisol HemeErythrocyte distribution width (RBC) [Ratio]13.7 %Laqpmc32.9 - 14.2 %Remisol HemeHematocrit (Bld) [Volume fraction]36.1 %Kmcxjv81.0 - 46.0 % Remisol HemeHemoglobin (Bld) [Mass/Vol]12.3 g/bHWuwbvm62.0 - 16.0 gm/dLRemisol HemeLymphocytes (Bld) [#/Vol]1.7 E9/LNormal1.0 - 4.0 E9/LRemisol Heme Lymphocytes/100 WBC (Bld)20.6 %Jsvflk76.0 - 50.0 %Remisol HemeMCH (RBC) [Entitic mass]33.6 zxUofvpz98.0 - 34.0 pgRemisol HemeMCHC (RBC) [Mass/Vol]34.1 g/dL Dtmmyl87.4 - 36.0 gm/dLRemisol HemeMCV (RBC) [Entitic vol]98.7 wKRbqgtu73.0 - 100.0 fLRemisol HemeMonocytes (Bld) [#/Vol]0.6 E9/LNormal0.2 - 1.0 E9/LRemisol HemeMonocytes/100 WBC (Bld)6.7 %Normal4.0 - 14.0 %Remisol HemeNeutrophils (Bld) [#/Vol]5.8 E9/LNormal2.0 - 7.5 E9/LRemisol HemeNeutrophils/100 WBC (Bld)68.8 % Pvibun43.0 - 75.0 %Remisol ZiegFlfuyfta457.0 E9/AKqibsb572.0 - 500.0 E9/LRemisol HemePlatelet mean volume (Bld) [Entitic vol]8.4 fLNormal6.4 - 10.8 fLRemisol HemeRBC (Bld) [#/Vol]3.7 E12/LLow4.3 - 5.9 E12/LRemisol HemeWBC corrected for nucl RBC Auto (Bld) [#/Vol]8.5 E9/LNormal4.0 - 11.0 E9/LRemisol HemeLipid Panel on 54-74-8607Motfulzvqkw [Mass/Vol]208 mg/vTAwhp154-303HzpuraAvita Health System Bucyrus HospitalComment on above:Performed By: #### [id number] #### [facility] [address], [place] [address]Lzrujrogsen in HDL [Mass/Vol]64 mg/dLInvalid Interpretation CodeAvita Health System Bucyrus HospitalComment on above:Result Comment: '>= 60 LOW RISK' '<= 40 HIGH RISK'Performed By: #### [id number] #### [facility] [address], [place] [address]Gpgpubygwvy in LDL [Mass/Vol]104 mg/dLNormal<=129[facility] HospitalComment on above:Performed By: #### [id number] #### [facility] [address], [place] [address]Jwhkguntaed in VLDL [Mass/Vol]36 mg/dLNormal7-40[facility] HospitalComment on above:Performed By: #### [id number] #### [facility] [address], [place] [address]Pnxkwzfyymuy [Mass/Vol]182 mg/dLHigh<=149[facility] HospitalComment on above:Performed By: #### [id number] #### [facility] [address], [place] [address]ABH With T4fr Reflexon 04-07-4896UPC Qn2.85 m[IU]/LNormal 0.34-5.60[facility] HospitalComment on above:Performed By: #### [id number] #### [facility] [address], [place] [address]Y MA/Cr Ratioon 50-24-2883Tquwtcn DL <= 20 mg/L (U) [Mass/Vol] mg/dLNormal0.0-1.9[facility] HospitalComment on above:Performed By: #### [id number] #### [facility] [address], [place] [address]F[place]orpe/Creatinine DL <= 20 mg/L (U) [Mass ratio]NOT CALCULATED Invalid Interpretation Code.0-30.0[facility] HospitalComment on above: Result Comment: 30-300 mg/g Cr indicates an increased risk for diabetic nephropathy. >300 mg/g Cr is consistent with clinical nephropathy.Performed By: #### [id number] #### [facility] [address], [place] [address]S Imzphjlppx811.3 mg/dLInvalid Interpretation CodeAvita Health System Bucyrus HospitalComment on above:Performed By: #### [id number] #### [facility] [address], [place] [address]Yhs B12on 73-34-3527Opvwgygaw (Vitamin B12) [Mass/Vol]253 pg/mL Uldxnl44-0438RshvomAvita Health System Bucyrus HospitalComment on above:Performed By: #### [id number] #### [facility] [address], [place] [address]Uophthg D 25 Hydroxyon 56-93-472378440290-eyjdfnlrfpesov D3 [Mass/Vol]36.9 ng/dGGpzunc23.0-100.0[facility] HospitalComment on above: Performed By: #### [id number] #### [facility] [address], [place] [address]xBFTxa 87-31-0408dTPK92 mL/min/1.73 m2Low>=59[facility] HospitalComment on above:Performed By: #### [id number] #### [facility] [address], [place] [address]Hkzrjwbrtu Visit Summaryon 12-23-6501Vwhszzevef Visit Summary Ambulatory Visit Summary ISAURA HAYDEN [...] 2023 8:40 AM EST With: Where: [address] [address]- Tuesday 8:45 AM EDT With: Amor SHORT, Anamaria Harvey Where: [address] [address]- 2024 11:00 AM EST With: Where: [address] [address]- You Need to Complete the Following CBC [...] pain, right Hypercholesterolemia Hyperlipidemia (more content not included)...[facility] Medicine Office/Clinic Noteon 21-60-0047Dheaxc Medicine Office/Clinic NoteFacentral hospital Medicine Office/Clinic Note Chief Complaint Subsequent [...] Randall Martha Chaidez - (more content not included)...[facility] HospitalComment on above:Result Comment: Electronically Signed By: Anamaria Chinchilla MD\.br\Date and Time Signed: 08/07/24 10:44 EST\.br\Electronically Co-Signed By: Martha Pereira\.br\Date and Time Co-Signed: 07/30/24 12:56 ESTAmbulatory Visit Summaryon 57-53-0442Bkmxshypey Visit SummaryAmbulatory Visit Summary ISAURA HAYDEN :1950 [...] Appointments 2023 8:40 AM EST With: Where: [facility] [address] [address]- Tuesday 8:45 AM EDT With: Amor SHORT, Anamaria Harvey Where: [address] [address]- 2024 11:00 AM EST With: Where: [address] [address]- You Need to Complete the Following CBC [...] Chronic cough Duration: 7 Days Pickup at [facility] [id number] Unchanged amlodipine (amLODIPine 5 mg Tab) See [...] polyunsaturated fatty a (more content not included)...Normal [facility] HospitalAmbulatory Visit SummaryAmbulatory Visit Summary ISAURA HAYDEN [...] 2023 8:40 AM EST With: Where: [address] [address]- Tuesday 8:45 AM EDT With: Amor SHORT, Anamaria Harvey Where: [address] [id number]- 2024 11:00 AM EST With: Where: [address] [address]- You Need to Complete the [...] Chronic cough Duration: 7 Days Pickup at [facility] [id number] Unchanged amlodipine (amLODIPine 5 mg Tab) See [...] polyunsaturated fatty a (more content not included)...Normal [facility] Medicine Office/Clinic Noteon 49-04-4558Kjaqip Medicine Office/Clinic NoteFacentral hospital Medicine Office/Clinic Note Chief Complaint The [...] humorously by the physician as looking like Swedish cheese on X-rays. She uses a bone [...] # 21 cap(s), Refills(s) 0, Pharmacy: [facility] [id number], 162, cm, 07/30/24 10:07:00 EST, Height/Length Dosing, 75.8, kg, 07/30/24 10:07:00EST, Weight Dosing CBC w/ Auto Diff TSH With T4fr Reflex Vitamin B12 Level Vitamin D 25 Hydroxy 2. Hypercholesterolemia (E78.00: Pure hypercholesterolemia, unspecified) As below. Ordered: benzonatate, 200 mg = 1 cap(s), Oral, TID, X 7 day(s), # 21 cap(s), Refills(s) 0, Pharmacy: [facility] [id number], 162, cm, 07/30/24 10:07:00 EST, Height/Length Dosing, 75.8, kg, 07/30/24 10:07:00EST, Weight Dosing CBC w/ Auto Diff TSH With T4fr Reflex Vitamin B12 Level Vitamin D 25 Hydroxy 3. Hyperlipidemia (E78.5: Hyperlipidemia, unspecified) Continue on a statin as before. Ordered: benzonatate, 200 mg = 1 cap(s), Oral, TID, X 7 day(s), # 21 cap(s), Refills(s) 0, Pharmacy: [facility] [id number], 162, cm, 07/30/24 10:07:00 EST, Height/Length Dosing, [...] # 21 cap(s), Refills(s) 0, Pharmacy: [facility] [id number], 162, cm, 07/30/24 10:07:00 EST, Height/Length Dosing, 75.8, kg, 07/30/24 10:07:00EST, Weight Dosing CBC w/ Auto Diff Comprehensive Metab (more content not included)...NormalFisher Sweet Grass Medical CenterComment on above:Result Comment: Electronically Signed [...] feel free to contact me at extension [phone]. Thank you! Daly Joy, ALXEN, RN, CCM, CCDS, CCDS-O CDI Urologist Md [address] [address] P: [phone] F: [phone] [email or web address] From: Anamaria Chinchilla MD To: Benita MENJIVAR, Daly; Sent: 07/30/2024 15:17:44 EST Subject: RE: Pre-Visit Planning Caller Name: ISAURA HAYDEN; Caller Number: Adrian , Farzana I could not address this today. ThanksBu[facility]rus Community [facility] Medicine Office/Clinic Noteon 78-39-5290Uvjntc Medicine Office/Clinic NoteBoston State [facility] Medicine Office/Clinic Note HPI Staff Isaura [...] in 3-5 days Ordered: Rapid Strep POC 289[address] Follow-up No qualifying data available Patient Education Pharyngitis, Eicn-qx-Skpx Problem List/Past Medical History Ongoing Age-related osteoporosis [...] Results Rapid Strep POC Result: Negative (07/13/24 11:52:00)[facility] HospitalComment on above:Result Comment: Electronically Signed By: GISELLA MORAN, VIPUL Rosario\.br\Date and Time Signed: 07/13/24 11:55 [facility] Urineon 05-09-2024 Bacteria identified Cx Nom [...] was performed at: [facility], [address] [place] [address], [address]- , , IvbpdmApojfhAdams County HospitalComment on above:Performed By: #### [id number] #### [facility] [address] [place] [address]Ncuxkdodaa Visit Summaryon 61-03-9992Qywjxtfguv Visit Summary Ambulatory Visit Summary ISAURA HAYDEN [...] EST With: Anamaria Chinchilla MD Where: [address] [address]- Tuesday 11:00 AM EST With: Where: [address] [address]- Medications What How Much When Instructions Unchanged [...] you for choosing us for your care. [facility] Medicine Office/Clinic Notejustin 84-62-7053Goeahe Medicine Office/Clinic NoteBoston State Hospital Medicine Office/Clinic Note HPI Staff Isaura [...] day(s), # 14 cap(s), Refills(s) 0, Pharmacy: [facility] [id number], 162, cm, 05/07/24 14:07:00 EDT, Height/Length Dosing, 76, kg, 05/07/24 14:07:00 EDT, Weight Dosing Body Mass Index (BMI) documented 3008F Current tobacco non-user 1036F Depression Screening Negative 3352F E&M of Est. Patient Low 20-29 Min 93083 Influenza immunization status assessed 1030F Medication list [...] Urnls Dip Stick Auto w/o Microscopy POC 92999 2. Non-smoker (Z78.9: Other specified health status) - Please continue to not smoke Ordered: doxycycline, 100 mg = 1 cap(s), Oral, BID, X 7 day(s), # 14 cap(s), Refills(s) 0, Pharmacy: [facility] [id number], 162, cm, 05/07/24 14:07:00 EDT, Height/Length Dosing, 76, kg, 05/07/24 14:07:00 EDT, Weight Dosing Body Mass Index (BMI) documented 3008F Current tobacco non-user 1036F Depression Screening Negative 3352F E&M of Est. Patient Low 20-29 Min 96523 Influenza immunization status assessed 1030F Medication list [...] day(s), # 14 cap(s), Refills(s) 0, Pharmacy: [facility] [id number], 162, cm, 05/07/24 14:07:00 EDT, Height/Length Dosing, 76, kg, 05/07/24 14:07:00 EDT, Weight Dosing Body Mass Index (BMI) documented 3008F Current tobacco non-user 1036F Depression Screening Negative 3352F E&M of Est. Patient Low 20-29 Min 00302 Influenza immunization status assessed 1030F Medication list [...] day(s), # 14 cap(s), Refills(s) 0, Pharmacy: [facility] [id number], 162, cm, 05/07/24 14:07:00 EDT, Height/Length Dosing, 76, kg, 05/07/24 14:07:00 EDT, Weight Dosing Body Mass Index (BMI) documented 3008F Current tobacco non-user 1036F Depression Screening Negative 3352F E&M of Est. Patient Low 20-29 Min 33622 Influenza immunization status assessed 1030F Medication list [...] with stage 3a (more content not included)...Normal [facility] HospitalComment on above:Result Comment: Electronically Signed By: Amor SHORT, Anamaria Saldivar.br\Date and Time Signed: 05/07/24 14:35 EDTDexa Scanson 47-87-9343Xave [id number]#1.00TIFF [facility] HospitalConsultation Noteon 22-50-7678Klebdqlgqlrv Note [id number]#1.00TIFFNotanishaNovant Healther [facility] MISDuke University Hospital 61-54-4969CMR - MISC [id number]#1.00TIFMemorial Health System Selby General HospitalRAD [id number]#1.00TIFMemorial Health System Selby General HospitalConsultation Noteon 60-57-2827Rlyweqbmbzuc Note [id number]#1.00TIFMemorial Health System Selby General HospitalConsultation Noteon 34-72-6876Jmqcnduyuxxw Note [id number]#1.00TIFAshtabula County Medical Center 85-37-9386MXQ - [facility] [id number]#1.00TIFCommunity Regional Medical Center [id number]#1.00TIFMemorial Health System Selby General HospitalConsultation Noteon 10-76-2755Azstqagcpusr Note [id number]#1.00TIFMemorial [facility] HospitalConsultation Noteon 06-05-1324Qkkxvkgxhfdm Note [id number]#1.00TIFMemorial Health System Selby General HospitalDischarge Documentationon 99-42-0070Erijfooej Documentation [id number]#1.00TIFMemorial Health System [facility] HospitalCytologyon 03-71-3908RexvsijwQpzbwbJxbStxfiu Toledo HospitalComment on above:Result Comment: [facility] [address] [place] [address] Cytology Consultation Patient Name:ISAURA HAYDEN:1950 (Age: 73)Gender:FTaken:11/14/2023eported:414:25Physician(s):Nabil Lord M.D. ([phone])Copy To: Rec. #:[id number]: #[id number] Final Cytologic Diagnosis Pelvic washings: No malignant cells identified. nsk/11/16/2023 Interpretation performed at [facility], [address] [place] [address], License number: [id number].Electronically Signed Out By Edie Day MD Clinical History Thickened endometrium/ post menopausal bleeding/ cervical stenosis. Gross Description Received was 35mL of clear colorless fluid unfixed labeled as Catracho, pelvic washings . CytoLyt added in lab. Unable to obtain cellblock, ThinPrep made. Source of Specimen Pelvic washings Non CARDBOARD INSERTER ThinPrep Fee Code(s): 1; 48733, 63571Hkjohfsh Pathologyon 94-84-2168Xpgcrxgj PathologyNormalProMedica [facility]tering Health PrebleComment on above:Result Comment: [facility] [address] [place] [address] Surgical Pathology Consultation Patient Name:ISAURA HAYDEN:1950 (Age: 73)Gender:FTaken:11/14/2023eported:11/16/2023hysician(s):Nabil Lord M.D. ([phone])Copy To: Rec. #:[id number]: #[id number] Final Pathologic Diagnosis Uterus, cervix, bilateral fallopian tubes, bilateral ovaries, TAHBSO: Cervix with no significant histopathologic abnormality Endometrium with cystic atrophy Myometrium with adenomyosis Bilateral adnexa with no significant histopathologic abnormality Report Electronically Signed Out nsk/27/2024Edie Day MD Interpretation performed at [facility], [address] [place] [address], License number: [id number]. Clinical History Thickened endometrium, postmenopausal bleeding, cervical [...] ovary L-N Remainder of endometrium (14, ss, S84-54492, A- K, m6) MONICO/MD kilgore/11/14/2023GR Specimen(s) Received Uterus, cervix, bilateral fallopian tubes, bilateral ovaries Fee Codes(s): 1; 84391Iwjvohohrile Noteon 57-52-2231Ilfuirlopkcg Note [id number]#1.00TIFFNoalAvita Health System Bucyrus HospitalCBC AND AUTO DIFFon 56-06-8276ECQBSJVK BASOPHIL0.1 X10E9/LNormal0.0-0.2 [facility] CenterComment on above:Performed By: #### CBCA, CMP #### [facility] ([id number]) [address] [place] [address], [address] [place], [place] [address]QMJBKJUB NEUTROPHIL3.1 X10E9/LNormal1.5-6.6[facility] Medical CenterComment on above:Performed By: #### CBCA, CMP #### [facility] ([id number]) [address] [place] [address], [address] [place], [place] [address]Naywgacvv/100 WBC (Bld)0.9 %NormalProNorth [facility] Medical Center Comment on above:Performed By: #### CBCA, CMP #### [facility] ([id number]) [address] [place] [address], [address] [place], [place] [address]Ozwvbuuveen (Bld) [#/Vol]0.2 10*3/uLNormal0.0-0.4[facility] CenterComment on above:Performed By: #### CBCA, CMP #### [facility] ([id number]) [address], [address] [place], [place] [address]Zbzhfbgcbds/100 WBC (Bld)4.3 %NormalPremier Health Upper Valley Medical Center Comment on above:Performed By: #### CBCA, CMP #### [facility] ([id number]) [address], [address] [place], [place] [address]Tnhglpdbfnz distribution width (RBC) [Ratio]13.1 %Normal 11.5-15.0[facility] Medical CenterComment on above:Performed By: #### CBCA, CMP #### [facility] ([id number]) [address], [address] [place], [place] [address]Afjayvgeti (Bld) [Volume fraction]35.6 %Ldkpox15-39BvuNfrfnzNorth Texas Medical CenterComment on above:Performed By: #### CBCA, CMP #### [facility] ([id number]) [address], [address] [place], [place] [address]Jwimtjtvuk (Bld) [Mass/Vol]12.4 g/tGXdvhph34.7-15.5PCherrington HospitalComment on above:Performed By: #### CBCA, CMP #### [facility] ([id number]) [address], [address] [place], [place] [address]Ogopjiqpkiy (Bld) [#/Vol]1.7 10*3/uLNormal1.0-3.5PCherrington HospitalComment on above:Performed By: #### CBCA, CMP #### [facility] ([id number]) [address], [address] [place], [place] [address]Vbxoqosbzmy/100 WBC (Bld)31.2 %NormalPremier Health Upper Valley Medical Center Comment on above:Performed By: #### CBCA, CMP #### [facility] ([id number]) [address], [address] [place], [place] [address]SMF (RBC) [Entitic mass]33.3 oxLeslls17-62YnlUlpvqoPremier Health Upper Valley Medical CenterComment on above:Performed By: #### CBCA, CMP #### [facility] ([id number]) [address], [address] [place], [place] [address]WNOU (RBC) [Mass/Vol]34.7 g/nPJvfctf04-27AwyMkhryxNorth Texas Medical CenterComment on above:Performed By: #### CBCA, CMP #### [facility] ([id number]) [address], [address] [place], [place] [address]RVP (RBC) [Entitic vol]96 eFKfvugu88-431FsqQnxjguPremier Health Upper Valley Medical CenterComment on above:Performed By: #### CBCA, CMP #### [facility] ([id number]) [address], [address] [place], [place] [address]Ttchuzhmi (Bld) [#/Vol]0.5 10*3/uLNormal0-0.9[facility] CenterComment on above:Performed By: #### CBCA, CMP #### [facility] ([id number]) [address], [address] [place], [place] [address]Lamsiapnn/100 WBC (Bld)8.2 %[facility] Comment on above:Performed By: #### CBCA, CMP #### [facility] ([id number]) [address], [address] [place], [place] [address]Lbquxutiujm/100 WBC (Bld)55.4 %[facility] Comment on above:Performed By: #### CBCA, CMP #### [facility] ([id number]) [address], [address] [place], [place] [address]Dotswkav mean volume (Bld) [Entitic vol]8.2 fLNormal7-12 [facility] CenterComment on above:Performed By: #### CBCA, CMP #### [facility] ([id number]) [address], [address] [place], [place] [address]Kotoolgbi (Bld) [#/Vol]284 10*3/hVRvappm185-240SuyWiihmn Fremont HospitalComment on above:Performed By: #### CBCA, CMP #### [facility] ([id number]) [address], [address] [place], [place] [address]XFA COUNT3.72 X10E12/LLow3.80-5.20[facility] on above:Performed By: #### CBCMarlene, CMP #### [facility] ([id number]) [address], [address] [place], [place] [address]YRR (Bld) [#/Vol]5.6 10*3/uLNormal4.0-11.0ProNorth Texas Medical CenterComment on above:Performed By: #### CBCMarlene, CMP #### [facility] ([id number]) [address], [address] [place], [place] [address]EXERTPXBGXCNY METABOLIC PANELon 10-12-8775Bjvvjsz [Mass/Vol]4.5 g/dLNormal3.2-5.3PCherrington HospitalComment on above:Performed By: #### CBCMarlene, CMP #### [facility] ([id number]) [address], [address] [place], [place] [address]HMJ [Catalytic activity/Vol]48 U/RDzfmhm11-308UobXqdfooNorth Texas Medical CenterComment on above:Performed By: #### CBCA, CMP #### [facility] ([id number]) [address], [address] [place], [place] [address]WRA [Catalytic activity/Vol]14 U/LNormal0-31PCherrington HospitalComment on above:Performed By: #### CBCA, CMP #### [facility] ([id number]) [address], [address] [place], [place] [address]Pjhue gap [Moles/Vol]9 mmol/LNormal5-15ProNorth Texas Medical CenterComment on above:Performed By: #### CBCMarlene, CMP #### [facility] ([id number]) [address], [address] [place], [place] [address]QDZ [Catalytic activity/Vol]20 U/LNormal0-41ProNorth Texas Medical CenterComment on above:Performed By: #### CBCMarlene, CMP #### [facility] ([id number]) [address], [address] [place], [place] [address]Kqehnpfux [Mass/Vol]0.5 mg/dLNormal0.3-1.2PCherrington HospitalComment on above:Performed By: #### CBCMarlene, CMP #### [facility] ([id number]) [address], [address] [place], [place] [address]Jbfffii [Mass/Vol]9.2 mg/dLNormal8.5-10.5PCherrington HospitalComment on above:Performed By: #### CBCMarlene, CMP #### [facility] ([id number]) [address], [address] [place], [place] [address]Qediwzzo [Moles/Vol]106 mmol/EOjopcf17-827IceMpapwfNorth Texas Medical CenterComment on above:Performed By: #### CBCA, CMP #### [facility] ([id number]) [address], [address] [place], [place] [address]HS4 [Moles/Vol]28 mmol/FBcurxh83-19JwiVqmeggCherrington Hospital Comment on above:Performed By: #### CBCA, CMP #### [facility] ([id number]) [address], [address] [place], [place] [address]Lqhvlqlilm [Mass/Vol]1.17 mg/dLHigh0.40-1.00[facility] CenterComment on above:Result Comment: METHOD TRACEABLE TO IDMS STANDARD Performed By: #### PAT, CMP #### [facility] ([id number]) [address], [address] [place], [place] [address]CUM/1.73 sq M.predicted among non-blacks MDRD (S/P/Bld) [Vol rate/Area]50 mL/min/{1.73_m2}Low>59ProNorth Texas Medical CenterComment on above: Result Comment: Reported eGFR is based on the CKD-EPI 1 equation that does not use a race coefficient.Performed By: #### PAT, CMP #### [facility] ([id number]) [address], [address] [place], [place] [address]Ffuqrhf [Mass/Vol]110 mg/hYKioj18-21GjfDbvsbrNorth Texas Medical Center Comment on above:Performed By: #### PAT, CMP #### [facility] ([id number]) [address], [address] [place], [place] [address]Qfzufmcwv [Moles/Vol]4.1 mmol/LNormal3.5-5.0[facility] CenterComment on above:Performed By: #### PAT, CMP #### [facility] ([id number]) [address] [address] [place], [place] [address]Qsbcnfs [Mass/Vol]7.2 g/dLNormal6.0-8.0ProNorth Texas Medical CenterComment on above:Performed By: #### CBCMarlene, CMP #### [facility] ([id number]) [address], [address] [place], [place] [address]Rnjkay [Moles/Vol]143 mmol/WPzjcis693-442AclWeleui Fremont HospitalComment on above:Performed By: #### CBCA, CMP #### [facility] ([id number]) [address], [address] [place], [place] [address]Ptnd nitrogen [Mass/Vol]18 mg/dLNormal5-27Prem[facility] CenterComment on above:Performed By: #### CBCA, CMP #### [facility] ([id number]) [address] [facility], [address] [place], [place] [address]QD CHEST 2 VWSon 67-51-2140PF CHEST 2 VWSXR CHEST 2 VWS History: Preop testing Exam/Technique: PA and lateral chest Comparison: None Findings: There is no evidence of active pulmonary or pleural disease. Cardiac and mediastinal contours are within normal limits. IMPRESSION: No evidence of active pulmonary disease demonstrated. Finalized by Lewis Lyn MD on 11/09/2023 10:52 AMNormalPremier Health Upper Valley Medical CenterConsultation Noteon 84-20-3177Lxazqzwgnfiu Note [id number]#1.00TIFFAdams County HospitalUS PELVIS W/ TRANSVAGINALon 29-82-[place]85[place] [address] Ultrasound Report Signed Patient: ISAURA HAYDEN MR#: [id number] : 1950 Acct:[id number] Age/Sex: 73 / F ADM Date: 10/17/23 Loc: US Attending Dr: Diane Winslow Ordering Physician: Diane Winslow Date of Service: 10/17/23 Procedure(s): US pelvis w/ transvaginal Accession Number(s): [id number] cc: Diane Winslow; ANAMARIA CHINCHILLA [place] [id number] Patient Name: ISAURA HAYDEN MRN: [id number] date: 1950 Sex: F Assigned Patient Location: US Current Patient Location: [facility] Accession/Order Number: [id number] Exam Date: 10/17/2023 08:55 Report Date: 10/17/2023 [...] Signed By: 10/17/23 1012 DD/ 1010 TD/TT: Water Plant Operator:TBHRadiology, Radiologist, - 10/17/2023 [place] [address] Ultrasound Report Signed Patient: ISAURA HAYDEN MR#: [id number] : 1950 Acct:[id number] Age/Sex: 73 / F ADM Date: 10/17/23 Loc: US Attending Dr: Diane Winslow Ordering Physician: Diane Winslow Date of Service: 10/17/23 Procedure(s): US pelvis w/ transvaginal Accession Number(s): [id number] cc: Diane Winslow; ANAMARIA CHINCHILLA The [address] [address] Patient Name: ISAURA HAYDEN MRN: [id number] date: 1950 Sex: F Assigned Patient Location: US Current Patient Location: INF Accession/Order Number: [id number] Exam Date: 10/17/2023 08:55 Report Date: 10/17/2023 [...] Signed By: 10/17/23 1012 DD/ 1010 TD/TT: Water Plant Operator: RAYSA PurewineRadiology Study observation (narrative)[employer] PELVIS W/ TRANSVAGINALOrdered By: Radiologist Radiology on 20-58-9350[facility] Work Phone: consultation Noteon 83-61-8284Sznmdbzkiwpi Note [id number]#1.00TIFMemorial Health System Selby General HospitalRAD - MISCon 23-13-9730QQQ - MISC [id number]#1.00TIFMemorial Health System [facility] HospitalConsultation Noteon 77-17-2944Irzercwpujyr Note [id number]#1.00TIFMemorial Health System Selby General HospitalConsultation Noteon 05-32-3877Bskjieqghmdb Note [id number]#1.00[facility] Hospital - AkronDexa Scanson 25-60-0635Hhyv Scans [id number]#1.00[facility] - AkronConsultation Noteon 42-47-0591Xmfkvubegqhf Note [id number]#1.00[facility] - AkronPatient Logson 86-68-3836Qpsfjed Logs [id number]#1.00TIFFNormalAvita Health System Bucyrus HospitalAmbulatory Visit Summaryon 58-30-5930Vmboazxdwc Visit Summary ISAURA HAYDEN :1950 Visit Date:09/01/2023 [...] AM EST With: Anamaria Chinchilla MD Where: [facility] [place] [id number]- \.br\ Medications\.br\ What How Much When Instructions\.br\ [...] for choosing us for your care.\.br\ \.br\[facility] Consultation Noteon 92-60-4400Juidnvvapaov Note [id number]#1.00TIFFNormalDorothea Dix Hospitalyazmin [facility] Medicine Office/Clinic Noteon 00-37-1033Whdxhe Medicine Office/Clinic NoteChief Complaint high blood pressure [...] 96.3 fL (05/11/23) Chloride: 108 mmol/L (05/11/23) Juab Absolute: 0.4 E9/L (05/11/23) CO2: 27 mmol/L (05/11/23) [place]ab Auto: 7.8 % (05/11/23) Creatinine: 1.3 mg/dL [...] Medical History Ongoing Ag (more content not included)...[facility]ams County HospitalComment on above:Result Comment: Electronically Signed By: VIPUL OBANDO CNP\.kelly\Date and Time Signed: 09/01/23 13:24 ESTPatient Educationon 94-27-4162Izskgfr EducationNutrition DASH Eating Plan DASH stands for [...] condiments Herbs. Spices. Seasoni (more content not included)...[facility] County HospitalConsultation Noteon 18-64-3379Brzfwkhvpztg Note [id number]#1.00TIFMemorial Health System Selby General HospitalRAD - CT Reporton 78-84-5935BOJ - CT Report [id number]#1.00[facility] Hospital - AkronOperative Reporton 18-22-2335Urzexwrez Report [id number]#1.00[facility] Hospital - AkronPatient Correspondenceon 60-27-2835Dsaacnx Correspondence [id number]#1.00[facility] Hospital - AkronProvider Letteron 93-24-9262Yimdyera Letter [address] [place] [address] August 12, 2023 ISAURA HAYDEN [address] [address] : [address] Das, The above patient has been evaluated at your request for preoperative clearance. After assessment of available pertinent labs and diagnostic tests, I feel this patient is medicallyoptimized for surgery. Final discretion of whether the patient is cleared for surgery remains up tothe surgeon/anesthesiologist. Thank you, DOTTY Vásquez-MILANRegional Medical CenterAmbulatory Visit Summaryon 79-28-8275Xeguyryzaf Visit Summary CATRACHO ISAURA L :1950 Visit [...] AM EST With: Anamaria Chinchilla MD Where: [facility] [place] [id number]- \.br\ Medications\.br\ What How Much When Instructions\.br\ [...] you for choosing us for your care.\.br\ \.br\[facility] Medicine Office/Clinic Notejustin 84-54-5354Vxmsoo Medicine Office/Clinic NoteLAKEVIEW HOS[facility] Staff Isaura is a 73 year old [...] inactivated 05/17/2011 Recorded pneumococcal 23-valent vaccine 06/25/2008 RecordedNoCleveland Clinic Marymount HospitalComment on above:Result Comment: Electronically Signed By: Amor SHORT, Anamaria Saldivar.br\Date and Time Signed: 08/11/23 12:57 EITAN 12-LEADon 48-56[place]1373[place] [address] Electrocardiograph Report Signed Patient: ISAURA HAYDEN MR#: [id number] : 1950 Acct:[id number] Age/Sex: 73 / F ADM Date: 08/05/23 Loc: PST Attending Dr: Bentley Das D.O. Ordering Physician: Bentley Das D.O. Date of Service: 08/05/23 Procedure(s): ECG 12 lead Accession Number(s): [id number] cc: 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 Signed By: 08/07/23 1647 DD/ 0940 TD/TT: Water Plant Operator:TBHRadiology, Radiologist, MD - 08/07/2023 [place] [address] Electrocardiograph Report Signed Patient: ISAURA HAYDEN MR#: [id number] : 1950 Acct:[id number] Age/Sex: 73 / F ADM Date: 08/05/23 Loc: PST Attending Dr: Bentley Das D.O. Ordering Physician: Bentley Das D.O. 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 Signed By: 08/07/23 1647 DD/ 0940 TD/TT: Water Plant Operator: [facility]ATION CENTERDirectLawECG 12-LEADOrdered By: Radiologist Radiology on 49-13-0105FBEN [employer] Work Phone: ECF 12-LEADon 07-60-2467Ngchbntpi Study observation (narrative)[facility] HealthcareCHEMISTRYOrdered By: SYSTEM SYSTEM on 05-11-2023 Albumin [Mass/Vol]4.3 g/dLNormal3.3 - 5.0 gm/dLFTMC RemisolAlbumin/Globulin [Mass ratio]1.3 {ratio}Normal1.1 - 2.2FTMC RemisolALP [Catalytic activity/Vol]46 [iU]/dJfkqtv93 - 98 Int._Unit/LFTMC RemisolALT No additional P-5'-P [Catalytic activity/Vol]16 [iU]/dNormal6 - 46 Int._Unit/LFTMC RemisolAmylase [Catalytic activity/Vol]74 U/PKhldke46 - 157 unit/LFTMC RemisolAnion gap [Moles/Vol]10 mmol/LNormal6 - 16 mEq/LFTMC RemisolAST [Catalytic activity/Vol]23 [iU]/dNormal5 - 43 Int._Unit/LFTMC RemisolBilirubin [Mass/Vol]0.6 mg/dLNormal0.0 - 1.1 mg/dL FT[facility] RemisolCalcium [Mass/Vol]9.5 mg/dLNormal8.9 - 11.1 mg/dLFTMC Remisol Chloride [Moles/Vol]108 mmol/DKomrka816 - 111 mmol/LFTMC RemisolCO2 [Moles/Vol] 27 mmol/PAfggcj03 - 31 mmol/LFTMC RemisolCreatinine [Mass/Vol]1.3 mg/dLNormal0.5 - 1.3 mg/dLFTMC RemisolGFR/1.73 sq M.predicted among non-blacks MDRD (S/P/Bld) [Vol rate/Area]44 mL/min/1.73 m2Low>=59mL/min/1.73 m2FTMC Chem SGlobulin (S) [Mass/Vol]3.2 g/dLNormal1.4 - 4.0 gm/dLFTMC RemisolGlucose [Mass/Vol]93 mg/dL Duxmss15 - 199 mg/dLFTMC RemisolLipase [Catalytic activity/Vol]46 U/YRzonnc73 - 58 unit/LFTMC RemisolPotassium [Moles/Vol]4.3 mmol/LNormal3.5 - 5.3 mmol/LFTMC RemisolProtein [Mass/Vol]7.5 g/dLNormal6.0 - 7.8 gm/dLFTMC RemisolSodium [Moles/Vol]141 mmol/BYytexj475 - 145 mmol/LFTMC RemisolUrea nitrogen [Mass/Vol] 21 mg/dLNormal5 - 21 mg/dLFTMC RemisolUrea nitrogen/Creatinine [Mass ratio]16 mg/geUzhjgi32 - 20FTMC RemisolHEMATOLOGYOrdered By: SYSTEM SYSTEM on 05-11-2023 Basophils/100 WBC (Bld)0.8 %Normal0.0 - 2.0 %[facility] HemeAutoSSBasophils/Leukocytes Auto (Bld) [Pure # fraction]0.0 E9/LNormal0.0 - 0.2 E9/LFTMC HemeAutoSS Eosinophils/100 WBC (Bld)5.2 %Normal0.0 - 8.0 %[facility] HemeAutoSS Eosinophils/Leukocytes Auto (Bld) [Pure # fraction]0.3 E9/LNormal0.0 - 0.5 E9/L [facility] HemeAutoSSLymphocytes/100 WBC (Bld)31.3 %Uxzrmy20.0 - 50.0 %[facility] HemeAutoSS Lymphocytes/Leukocytes Auto (Bld) [Pure # fraction]1.8 E9/LNormal1.0 - 4.0 E9/L [facility] HemeAutoSSMonocytes/100 WBC (Bld)7.8 %Normal4.0 - 14.0 %[facility] HemeAutoSS Monocytes/Leukocytes Auto (Bld) [Pure # fraction]0.4 E9/LNormal0.2 - 1.0 E9/L [facility] HemeAutoSSNeutrophils/100 WBC (Bld)54.9 %Vghmdg72.0 - 75.0 %[facility] HemeAutoSS Neutrophils/Leukocytes Auto (Bld) [Pure # fraction]3.1 E9/LNormal2.0 - 7.5 E9/L [facility] HemeAutoSSHEMATOLOGYOrdered By: Nato Cheung on 49-64-5016Ksfottinxag distribution width (RBC) [Ratio]12.9 %Axrwxe68.9 - 14.2 %[facility] HemeAutoSS Hematocrit (Bld) [Volume fraction]34.9 %Mljpri20.0 - 46.0 %[facility] HemeAutoSS Hemoglobin (Bld) [Mass/Vol]11.8 g/dLLow12.0 - 16.0 gm/dLFTMC HemeAutoSSMCH (RBC) [Entitic mass]32.6 ycMnlrvu67.0 - 34.0 pgFTMC HemeAutoSSMCHC (RBC) [Mass/Vol] 33.9 g/hXIhyohi31.4 - 36.0 gm/dLFTMC HemeAutoSSMCV (RBC) [Entitic vol]96.3 fL Tjcqea03.0 - 100.0 fLFTMC HemeAutoSSPlatelet mean volume (Bld) [Entitic vol]8.2 fLNormal6.4 - 10.8 fLFTMC HemeAutoSSPlatelets (Bld) [#/Vol]275.0 E9/GGiebpi566.0 - 500.0 E9/LFTMC HemeAutoSSRBC (Bld) [#/Vol]3.6 E12/LLow4.3 - 5.9 E12/LFTMC HemeAutoSSWBC corrected for nucl RBC Auto (Bld) [#/Vol]5.6 E9/LNormal4.0 - 11.0 E9/LFTMC HemeAutoSSURINALYSISOrdered By: Dinah Almazan on [id number] LM Ql (Urine sed)Trace /HPFNormalTrace/HPFCOMMUN[facility] [place] [facility] Auto SSBilirubin Ql (U)Negative (05/11/23 12:05 PM)NormalNegativeCOMMUNITY HOSPITAL [facility] [place] Auto SSClarity (U)Clear (05/11/23 12:05 PM)NormalClearFTULSA [facility] [place] [facility] Auto SSColor (U)Yellow (05/11/23 12:05 PM)NormalYellowCOMMUNITY HOSPITAL – [place] Auto SSCrystals LM Ql (Urine sed)Present (05/11/23 12:05 PM)NormalCOMMUNITY HOSPITAL [facility] [place] Auto SSEpithelial cells.squamous LM.HPF (Urine sed) [#/Area]5-8 /HPFNormal0-2/HPFCOMMUN[facility] [place] [facility] Auto SSGlucose Test strip (U) [Mass/Vol]Negative (05/11/23 12:05 PM)NormalNegativeCOMMUNITY HOSPITAL [facility] [place] [facility] Auto SSHemoglobin Ql (U)Trace *ABN* (05/11/23 12:05 PM)Invalid Interpretation CodeNegativeCOMMUNITY HOSPITAL – [place] Auto SSKetones (U) [Mass/Vol]Negative (05/11/23 12:05 PM)NormalNegativeCOMMUNITY HOSPITAL [facility] [place] Auto SSLithium.plasma/[place].RBC (Bld) [Mass ratio]0-3 /HPFNormal0-3/HPFCOMMUNITY [facility] [place] [facility] Auto SSMucus Ql (Urine sed)2+ (05/11/23 12:05 PM)NormalCOMMUNITY [facility]OS[facility]ITAL [facility] [place] Auto SSNitrite Ql (U)Negative (05/11/23 12:05 PM)NormalNegativeCOMMUNITY HOS[facility]ITAL [facility] [place] [facility] Auto SSpH (U)7.0 *NA* (05/11/23 12:05 PM)Invalid Interpretation Code5.0 - 9.0[facility] [place] [facility] Auto SSProtein (U) [Mass/Vol]Negative (05/11/23 12:05 PM)NormalNegativeCOMMUNITY HOSPITAL [facility] [place] Auto SSSpecific gravity (U) [Rel density]1.010 *NA* (05/11/23 12:05 PM)Invalid Interpretation Code1.005 - 1.030[facility] [place] [facility] Auto SSUA Spec DescClean Catch (05/11/23 12:05 PM)NormalCOMMUNITY HOSPITAL [facility] [place] [facility] Auto SSUrobilinogen Qn (U)[id number] {Leon'U}/dLNormal0.0 - 1.0 EU/dLEMERSON [facility] Auto SSWBC Auto Ql (U)1+ *ABN* (05/11/23 12:05 PM)Invalid Interpretation CodeNegativeEMERSON HOS[facility]ITAL Auto SSWBC LM.HPF (Urine sed) [#/Area]0-5 /HPFNormal0-5/HPFCOMMUNITY HOSPITAL – [place] UA Auto SSCULTURE URINEon [id number] URINECulture Observations: LIGHT GROWTH OF MIXED GENITAL NAN. NO POTENTIAL PATHOGENS SEEN.NormalUniversity Hospitals Beachwood Medical Center HospitalComment on above:Performed By: #### URCX #### [facility] [address] [place] [address] Dr. Melchor Winter (CLEAN/CATCH) MICROSCOPIC IF INDICATEon [id number] Ql (U)NegativeNormalNEGATIVEPremier Health Upper Valley Medical CenterComment on above:Performed By: #### UMICRO UARMICR #### [facility] [address] [place] [address] Dr. Melchor BrockClarity (U)CLEARNormalCLEARPremier Health Upper Valley Medical CenterComment on above: Performed By: #### UMICRO UARMICR #### [facility] [address] [place] [address] Dr. Melchor Lugo (U)LT. YELLOWNormalYELLOWPremier Health Upper Valley Medical CenterComment on above:Performed By: #### UMICRO, UARMICR #### [facility] [address] [address] [address] Melchor BrockGlucose Ql (U)NegativeNormalNEGATIVEPremier Health Upper Valley Medical CenterComment on above:Performed By: #### UMICRO, UARMICR #### [facility] [address] [place] [address] Dr. Melchor BrockHemoglobin Ql (U)TRACE-INTACTAbnormalNEGATIVEPremier Health Upper Valley Medical CenterComment on above:Performed By: #### UMICRO, UARMICR #### [facility] [address] [place] [address] Dr. Melchor BrockKetones Ql (U)NegativeNormalNEGATIVEPremier Health Upper Valley Medical CenterComment on above:Performed By: #### CASH UARMICR #### [facility] [address] [address] [address] Melchor QuesadaOCYTESTRACEAbnormalNEGATIVEThe St. Charles HospitalComment on above:Performed By: #### CASH UARMICR #### [facility] [address] [address] [address] Melchor Glover Ql (U)NegativeNormalNEGATIVEThe St. Charles HospitalComment on above:Performed By: #### CASH UARMICR #### [facility] [address] [address] [address] Melchor Hernandez (U)6.0 [pH]Normal5-9The [facility]. Charles HospitalComment on above: Performed By: #### FLORENCE CASTREJONRMICR #### [facility] [address] [address] [address] Melchor BrockSPEC GRAVITY1.094Eozkam6.005-<=1.025The [facility] Charles HospitalComment on above:Performed By: #### FLORENCE CASTREJONRMICR #### [facility] [address] [place] [address] Dr. Melchor Winter PROTEINNegativeNormalNEGATIVE/ TRACEThe [facility] Comment on above:Performed By: #### CASH UARMICR #### [facility] [address] [address] [address] Melchor Rothman MICRO INDINDICATEDNormalThe St. Charles HospitalComment on above: Performed By: #### CASH UARMICR #### [facility] [address] [address] [address] Melchor Ellis Qn (U)0.2 {Leon'U}/dLNormal0.2 - 1.0The [facility] HospitalComment on above:Performed By: #### CASH UARMICR #### [facility] [address] [place] [address] Dr. Melchor Bolanos MICROSCOPIC ONLYon [id number] SEENNormalNONE SEENLakeHealth TriPoint Medical Center on above:Performed By: #### GLUC, LIPID #### [facility] [address] [address] [address] Melchor Madrigal identified Cx Nom (U)CX ALREADY ORDEREDNormalThUniversity Hospitals TriPoint Medical CenterComment on above:Performed By: #### GLUC, LIPID #### [facility] [address] [address] [address] Melchor De La Cruz SEENNormalNONE SEENLakeHealth TriPoint Medical Center on above:Performed By: #### GLUC, LIPID #### [facility] [address] [address] [address] Melchor Michelleystals LM Nom (Urine sed)NONE SEENNormalNONE SEENLakeHealth TriPoint Medical Center on above:Performed By: #### GLUC, LIPID #### [facility] [address] [address] [address] Roche ChangEkirkthelial cells LM Ql (Urine sed)RARENormalNONE SEEN /RAREPremier Health Upper Valley Medical CenterComkalamazoo psychiatric hospital on above:Performed By: #### GLUC, LIPID #### [facility] [address] [address] [address] Melchor BrockMUCOUSVAISHALI SEENNormalNONE SEENLakeHealth TriPoint Medical Center on above:Performed By: #### GLUC, LIPID #### [facility] [address] [address] [address] Melchor Da SilvaTkbpgVMN8-0Hsugvu2-1WcsLakeHealth TriPoint Medical Center on above:Performed By: #### GLUC, LIPID #### [facility] [address] [address] [address] Melchor BrockWBC0-2AbnormalNONE SEENLakeHealth TriPoint Medical Center on above: Performed By: #### GLUC, LIPID #### [facility] [address] [address] [address] Melchor BrockMG MAMM SCREEN 3D SARAHI CADon [id number] MAMM SCREEN 3D SARAHI CAD Patient: ISAURA HAYDENLaurie Exam Date: 03/15/2022 : 1950 Gender:F Ordering : DR FARA BOOKER . Admission #: [id number] Family : Order #: [id number] CLICK HERE TO VIEW EXAM RADIOLOGY REPORT [...] lung cancer at age 72. LOCATION: [facility] BREAST COMPOSITION: Heterogeneously dense,which may obscure [...] by: Alan Cárdenas M.D. on 03/15/2022 at 11:41Wooster Community HospitalGLUCOSE BLOODon [id number] [Mass/Vol]99 mg/tWKfshwb14-014Jgt St. Charles HospitalComment on above:Performed By: #### GLUC, LIPID #### [facility] [address] [place] [address] Dr. Melchor BrockLIPID PROFILEon [id number]-HDL RATIO NORMSEE BELOWWooster Community HospitalComment on above:Result Comment: 3.3 - 4.4 LOW RISK 4.4 - 7.1 AVERAGE RISK 7.1 - 11.0 MODERATE RISK >11.0 HIGH RISKPerformed By: #### GLUC, LIPID #### [facility] [address] [address] [address] Melchor BrockCholesterol [Mass/Vol]202 mg/dLCritically high<=200[facility] on above:Performed By: #### GLUC, LIPID #### [facility] [address] [address] [address] Melchor BrockCholesterol in HDL [Mass/Vol]56 mg/jNVcirku44-01IhtLakeHealth TriPoint Medical Center on above:Performed By: #### GLUC, LIPID #### [facility] [address] [address] [address] Melchor BrockCholesterol in LDL [Mass/Vol]112.6 mg/dLUniversity Hospitals Beachwood Medical Center on above:Performed By: #### GLUC, LIPID #### [facility] [address] [place] [address] Dr. Melchor Hurtadoestermaia.total/Cholesterol in HDL [Mass ratio]3.6 {ratio} NormalThe [facility] & [facility] on above:Performed By: #### GLUC, LIPID #### [facility] [address] [place] [address] Dr. Melchor Hutton NORMAL> or = 60 mg/dl - LOW CARDIOVASCULAR RISK <40 mg/dl - HIGH CARDIOVASCULAR RISKUniversity Hospitals Beachwood Medical Center on above:Performed By: #### GLUC, LIPID #### [facility] [address] [place] [address] Dr. Melchor Anne CALC NORMALSEE BELOWWooster Community HospitalComkalamazoo psychiatric hospital on above:Result Comment: <100 mg/dl OPTIMAL 100 - 129 mg/dl NEAR OR ABOVE OPTIMAL 130 - 159 mg/dl BORDERLINE HIGH 160 - 189 mg/dl HIGH >190 mg/dl VERY HIGH Performed By: #### GLUC, LIPID #### [facility] [address] [place] [address] Dr. Melchor BrockTriglyceride [Mass/Vol]167 mg/dLCritically high<=150[facility] on above:Performed By: #### GLUC, LIPID #### [facility] [address] [place] [address] Dr. Melchor BrockVLDL CALC33.4 mg/dLWooster Community HospitalComkalamazoo psychiatric hospital on above: Performed By: #### GLUC, LIPID #### [facility] [address] [address] [address] Melchor KongID PROFILEon [id number]-HDL RATIO NORMSOhioHealth Hardin Memorial HospitalComkalamazoo psychiatric hospital on above:Result Comment: 3.3 - 4.4 LOW RISK 4.4 - 7.1 AVERAGE RISK 7.1 - 11.0 MODERATE RISK >11.0 HIGH RISKPerformed By: #### LIPID, BMP #### [facility] [address] [address] [address] Melchor BrockCholesterol [Mass/Vol]244 mg/dLCritically high<=200[facility] on above:Performed By: #### LIPID, BMP #### [facility] [address] [place] [address] Dr. Melchor BrockCholesterol in HDL [Mass/Vol]60 mg/rKBjeipv02-31RyxPremier Health Upper Valley Medical CenterComkalamazoo psychiatric hospital on above:Performed By: #### LIPID, BMP #### [facility] [address] [place] [address] Dr. Melchor BrockCholesterol in LDL [Mass/Vol]158.4 mg/dLWooster Community HospitalComkalamazoo psychiatric hospital on above:Performed By: #### LIPID, BMP #### [facility] [address] [place] [address] Dr. Melchor Hurtadoestermaia.total/Cholesterol in HDL [Mass ratio]4.1 {ratio} NormalThe [facility] on above:Performed By: #### LIPID, BMP #### [facility] [address] [place] [address] Dr. Melchor BrockHDL NORMAL> or = 60 mg/dl - LOW CARDIOVASCULAR RISK <40 mg/dl - HIGH CARDIOVASCULAR RISKWooster Community HospitalComkalamazoo psychiatric hospital on above:Performed By: #### LIPID, BMP #### [facility] [address] [place] [address] Dr. Melchor BrockLDL CALC NORMALSEE German HospitalComkalamazoo psychiatric hospital on above:Result Comment: <100 mg/dl OPTIMAL 100 - 129 mg/dl NEAR OR ABOVE OPTIMAL 130 - 159 mg/dl BORDERLINE HIGH 160 - 189 mg/dl HIGH >190 mg/dl VERY HIGH Performed By: #### LIPID, BMP #### [facility] [address] [place] [address] Dr. Melchor BrockTriglyceride [Mass/Vol]128 mg/dLNormal<=150Prem[facility] Comment on above:Performed By: #### LIPID, BMP #### [facility] [address] [place] [address] Dr. Melchor BrockVLDL CALC25.6 mg/dLNormalThe St. Charles HospitalComment on above: Performed By: #### LIPID, BMP #### [facility] [address] [place] [address] Dr. Melchor BrockPROKell CHEM 8 (BAS METB)on 64-80-0813Sazxq gap [Moles/Vol]10.7 mmol/LNormalPremier Health Upper Valley Medical CenterComment on above:Performed By: #### LIPID, BMP #### [facility] [address] [place] [address] Dr. Melchor BrockCalcium [Mass/Vol]7.8 mg/dLCritically low8.4-10.2The St[facility] HospitalComment on above:Performed By: #### LIPID, BMP #### [facility] [address] [place] [address] Dr. Melchor BrockChloride [Moles/Vol]103 mmol/EJybjjb78-733WtrPremier Health Upper Valley Medical Center Comment on above:Performed By: #### LIPID, BMP #### [facility] [address] [place] [address] Dr. Melchor BrockCO2 [Moles/Vol]28.4 mmol/IUpjewb94.0-30.0Prem[facility] Comment on above:Performed By: #### LIPID, BMP #### [facility] [address] [place] [address] Dr. Melchor BrockCreatinine [Mass/Vol]1.05 mg/dLCritically high0.52-1.04The [facility] HospitalComment on above:Performed By: #### LIPID, BMP #### [facility] [address] [address] [address] Melchor LopezGFR-AF HONG K[place]ER>60Normal>=60The [facility] Charles HospitalComment on above:Performed By: #### LIPID, BMP #### [facility] [address] [address] [address] Melchor LopezGFR-NON AF LXEMGASQ64 mL/min/1.91i7Czcmxnaelr low>=60The [facility] HospitalComment on above:Performed By: #### LIPID, BMP #### [facility] [address] [address] [address] Melchor BrockGlucose [Mass/Vol]98 mg/gMAmlqgp30-674Fze [facility] Comment on above:Performed By: #### LIPID, BMP #### [facility] [address] [address] [address] Melchor BrockPotassium [Moles/Vol]4.1 mmol/LNormal3.4-5.0[facility] Comment on above:Performed By: #### LIPID, BMP #### [facility] [address] [place] [address] Dr. Melchor BrockSodium [Moles/Vol]138 mmol/LWvqdha722-391Ump [facility] Comment on above:Performed By: #### LIPID, BMP #### [facility] [address] [place] [address] Dr. Melchor BrockUrea nitrogen [Mass/Vol]15.0 mg/dLNormal7.0-17.0The [facility] HospitalComment on above:Performed By: #### LIPID, BMP #### [facility] [address] [place] [address] Dr. Melchor BrockUrea nitrogen/Creatinine [Mass ratio]14.3 mg/mgNormalThe St. [facility] HospitalComment on above:Performed By: #### LIPID, BMP #### [facility] [address] [place] [address] Dr. Melchor LopezCHOCARDIO M/2D COMPLETEon [id number] M/2D COMPLETE Patient: ISAURA HAYDENLaurie Exam Date: 10/05/2021 : 1950 Gender:F Ordering : DR ANJELICA GAMBINO . Admission #: [id number] Family : Order #: [id number] CLICK HERE TO VIEW EXAM ECHOCARDIOGRAM REPORT [...] Area(A4C): 20.70 cm2 Left Atrium Systolic Volume(A2C): 59009 mm3 Left Atrium Systolic Volume(A4C): 30572 mm3 Mitral Valve MV E to A Ratio: 1.10 Deceleration Luce: 7410 mm/s2 Mitral Valve A-Wave Peak Velocity: [...] by: Coy Dove M.D. on 10/06/2021 at 08:32[facility] HospitalXR DEXA BONE DENSITYon 42-95-6219ZQ DEXA BONE DENSITYEXAMINATION: XR DEXA BONE DENSITY, [...] Electronically authenticated by: KVNG MILIAN Date: 2021-09-18 10:56[facility] HospitalDEXA BONE DENSITY AXIAL SKELETONon [id number] BONE DENSITY AXIAL SKELETONREPORT: DEXA scanTECHNIQUE: Routine [...] both femoral necksInterpreted by:ARLEY Valenciaigned by:Lora Mondragon MD09/12/18FMetroHealth Main Campus Medical CenterMAM DIGITAL SCREEN BILATERALon 74-19-2817BSU DIGITAL SCREEN BILATERALREPORT: BILATERAL DIGITAL SCREENING MAMMOGRAM WITH ASSISTANCE OF CADINDICATION: ScreeningFINDINGS: Compared to 07/30/2016, 04/17/2015, 04/16/2014, 10/26/2011 and 06/09/2010. The breasts are heterogeneously dense. No suspicious calcifications, mass lesions, architectural distortion or skin thickening.Final report electronically signed by Lora Mondragon on 09/12/2017 5:38 PMIMPRESSION: No mammographic evidence of malignancy. (CATEGORY 1 - ACR BI- RADS: NEGATIVE)Interpreted by:ARLEY Valenciaigned by:Lora Mondragon MD09/12/[address] [place] [address] Vital Signs Date TimeVital SignValuePerforming UsmjfwvxgEpptumhj63-70-8688 16:08-0400Body thyzlq164.56 [facility] GuymonarmMercy Health [facility] [id number] 16:08-0400Body mass index (BMI) [Ratio]28.84 kg/k8HbnxsgxCone Health Med[facility] 76-634622-82267926-34-3559 16:08-0400Body surface area Derived from formula1.85 e9WsidnzvCone Health [facility] 07-09-2025 16:08-0400Body vnlqym90.2 kgBlue [facility] 16-130747-98645353-83-8685 16:08-0400Diastolic blood rtdrvblu68 mm[Hg] Kaitlin Anderson [facility] 07-09-2025 16:08-0400Heart rate68 /minCarlety Villegas [facility] 07-09-2025 16:08-0400Systolic blood cbvowrwm260 mm[Hg] Kaitlin CelestinSelect [facility] 01-07-2025 09:11-0500Body mass index (BMI) [Ratio]29.01 kg/w5Yaksq Pippa DO Work Phone: [facility] CenterWsyyvoxpce73-02-7811 09:11-0500Body rtkoao97.66 kgCorey Pippa DO Work Phone: [facility] CenterDaxairfnhq83-33-6677 09:11-0500Diastolic blood jeqbcmgu95 mm[Hg]Bentley Pippa DO Work Phone: [facility] CenterLnstzmgdcf67-92-6349 09:11-0500Systolic blood ccfccryd102 mm[Hg]Bentley Pippa DO Work Phone: [facility] CenterTubcsbrhep39-94-6566 10:45-0400Body .6 cmCjoan GOMEZ Work Phone: [facility]05-07-2024 10:45-0400Body mass index (BMI) [Ratio]28.65 kg/z2WpfxcoxxMary GOMEZ Work Phone: [facility]05-07-2024 10:45-0400Body ttwocykexaw17.81 [degF]Mary GOMEZ Work Phone: [facility]05-07-2024 10:45-0400Body yskvvi64.75 kgConu GOMEZ Work Phone: [facility]05-07-2024 10:45-0400Diastolic blood ohipxzzs79 mm[Hg]Mary GOMEZ Work Phone: [facility]05-07-2024 10:45-0400Heart rate 57 /minCourtney Pennington PA Work Phone: [facility] Ybxgvz42-89-3168 10:45-0400 Respiratory rate16 /minCourtney Pennington PA Work Phone: [facility] Ggnrjc70-43-8510 10:45-5711UeO1% (BldA) [Mass fraction]99 %Mary Pennington PA Work Phone: [facility] Sjztfo51-36-9590 10:45-0400Systolic blood hkfiftzd722 mm[Hg]Mary Pennington PA Work Phone: [phone] Hzwnir83-79-6598 10:41-0400Body .6 cmCourtney Pennington PA Work Phone: [facility] Tybffn55-43-8543 10:41-0400Body mass index (BMI) [Ratio]28.48 kg/b3Rvjvxukd Pennington PA Work Phone: [facility] Kumwrg46-01-0855 10:41-0400Body fwtnruvwhjr80.81 [degF]Mary Pennington PA Work Phone: [facility] Twexcx11-78-7110 10:41-0400Body .3 kgCourtney Pennington PA Work Phone: [facility] Whrcul00-73-6935 10:41-0400Diastolic blood tokckyvk37 mm[Hg]Mary Pennington PA Work Phone: [facility] HospitalStratos04-09-2024 10:41-0400Heart rate 57 /minCourtney Pennington PA Work Phone: [facility]04-09-2024 10:41-0400 Respiratory rate16 /minCourtney Pennington PA Work Phone: [facility] Ejpklg30-69-9717 10:41-6144QfI6% (BldA) [Mass fraction]100 %Mray Pennington PA Work Phone: [facility]04-09-2024 10:41-0400Systolic blood zfggrpub649 mm[Hg]Mary GOMEZ Work Phone: [facility]03-18-2024 10:32-0400Body .[address]03-18-2024 10:32-0400Body mass index (BMI) [Ratio]28.15 kg/x4Ormur[address]03-18-2024 10:32-0400Body rhzmid77.[address]03-06-2024 14:38-0500Body ouxkpqndjkj83.29 [degF]Nabil Lord MD Work Phone: [phone]03-06-2024 14:38-0500Diastolic blood azbfawem37 mm[Hg]Nabil Lord MD Work Phone: [phone]03-06-2024 14:38-0500Heart rate 67 /minAdafarzana Lord MD Work Phone: [phone]03-06-2024 14:38-4669OuK5% (BldA) [Mass fraction]98 %Nabil Lord MD Work Phone: [facility]03-06-2024 14:38-0500Systolic blood hyitdtgp139 mm[Hg]Nabil Lord MD Work Phone: [phone]03-06-2024 14:35-0500Body mass index (BMI) [Ratio]29.18 kg/m2Nabil Lord MD Work Phone: [phone]03-06-2024 14:35-0500Body bjvvot85.11 kgNabil Lord MD Work Phone: [phone] Encounters Encounter DateEncounter TypeCare ProviderFacilityStart: 42-56-2366cwdzskoaynjenny ChinchillaFacility:[facility] BellevueStart: 07-01-2025 End: 30-14-5621wzbijrzytsICF Matt L SchwabFacility:FTMCStart: 04-15-2025 End: 94-04-8699Dxzdojcas Result EncounterCorey Pippa DO Work Phone: noms External Department UnsolicitedStart: 04-15-2025 End: 91-75-3888Ugcixzrbu Result EncounterCorey Pippa DO Work Phone: noms External Department UnsolicitedStart: 04-12-2025 End: 19-23-8600Fqnezwkmj Result EncounterCorey Pippa DO Work Phone: noms External Department UnsolicitedStart: 04-12-2025 End: 84-34-3991Pylkzrcws Result EncounterCorey Pippa DO Work Phone: noms External Department UnsolicitedStart: 02-27-2025 Xavier Santiago Other [facility] OfficeStart: 01-28-2025 End: 93-23-2033mjxzsvvmnaBsqwdv E. RossFacility:[facility] BellevueStart: 10-19-2024 End: 08-04-1905Mtt Drop offJodi L Yi [facility] Start: 10-19-2024 End: 53-66-9870gziislrplgJpca L SchwabFacility:FTMCStart: 10-05-2024 End: 63-61-2483Jpccisfty Result EncounterCorey Pippa DO Work Phone: noms External Department UnsolicitedStart: 10-05-2024 End: 32-70-6094Kyizywziy Result EncounterCorey Pippa DO Work Phone: noms External Department UnsolicitedStart: 09-17-2024 End: 75-98-8111sxxpajeaxmExwz L SchwabFacility:[facility] BellevueStart: 09-11-2024 End: 58-47-1748aayftrgmmhIwfia Saw HeckFacility:[facility] HospitalStart: 09-10-2024 End: 27-65-6760qztwazvylpZaeplz E. RossFacility:[facility] BellevueStart: 08-28-2024 End: 87-54-4157Dvgxgf flowsheetCorey Pippa DO Work Phone: noms BCP OBStart: 08-28-2024 End: 29-52-3593Kycavm flowsheetCorey Pippa DO Work Phone: noms BCP OBStart: 08-28-2024 End: 07-94-1266Xkflmmx encounter procedureCorey Pippa DO Work Phone: noms BCP OBComment on above:Well woman exam with routine gynecological exam; Breast cancer screening by mammogram; Postmenopausal stateStart: 08-28-2024 End: 23-17-2290llryvtinzrSXOGM FAZIONot AvailableStart: 08-27-2024 End: 56-97-6724mpxuynspjyUrrzsg E. RossFacility:[facility] BellevueStart: 08-09-2024 End: 36-50-3857Npl Drop offSafsaneh Chinchilla [facility] Start: 08-09-2024 End: 94-16-5534zylcjeogwgFlyqvn E. RossFacility:FTMCStart: 07-30-2024 End: 26-20-1289gmthzufrokVU Anamaria ChinchillaFacility:[facility] BellevueStart: 07-30-2024 End: 43-44-2044hcnsdzddiaRA Anamaria ChinchillaFacility:[facility] BellevueStart: 07-13-2024 End: 52-47-6600pdiphbanlxLBBQMV A LEHMANNFacility:[facility] BellevueStart: 05-07-2024 End: 20-51-5720Wnf Drop offSafsaneh Chinchilla [facility] Start: 05-07-2024 End: 93-88-9402cwagnnmglhLI Anamaria ChinchillaFacility:[facility] INSTITUTEtart: 12-27-2023 End: 78-85-1269mpjgdcbjzwZPNBPXNVLahey Hospital & Medical Centertart: 12-27-2023 End: 09-13-5018Qyljdv follow up visit related to original Juvencio Pennington JASON Work Phone: [facility] OncologyComment on above:Encounter for postoperative care (Primary Dx)Start: 11-29-2023 End: 49-62-6406saohmkmampGHJIKANAMercy Health Urbana Hospitaltart: 11-29-2023 End: 45-08-0992Wrlpnp follow up visit related to original Juvencio Pennington JASON Work Phone: [facility] OncologyComment on above:Encounter for postoperative care (Primary Dx)Start: 11-14-2023 End: 71-11-5445Hvdjsuystr and management of inpatientPETER MONTRIEProMedica Ossining HospitalStart: 11-14-2023 End: 61-50-5072Nlexpvznwn and management of inpatientADAM C [facility] HospitalStart: 82-54-2572Uvqwyaoab for other preprocedural examination NABIL C [facility] HospitalStart: 11-09-2023 End: 51-90-1052adifabeuzcRTSV C [facility] HospitalStart: 11-07-2023 End: 84-94-5030Whndymhrkw and management of inpatientKIM E KNIGHTSelect Medical [facility] HospitalStart: 11-07-2023 End: 61-69-8689Bszqbvvmj to establishmentMetro Pat Phone Call Provider 2 Nash Vaz[facility] On [facility] Hospitaltart: 10-28-2023 Patient encounter statusAdafarzana Lord MD Work Phone: [facility] SystemStart: 05-08-4581Sgxveeplf encounterAdafarzana Lord MD Work Phone: [facility] OncologyStart: 10-26-2023 End: 76-58-0097qmrpotufkeJSHB C WALTERSpringfield HospitalAmanda [facility] HospitalStart: 10-26-2023 End: 34-38-2299Mygsmf outpatient new 60 minutesAdam Tobi Lord MD Work Phone: [facility] OncologyComment on above:Endometrial thickening on ultrasound (Primary Dx); Postmenopausal bleedingStart: 25-45-8211tiucnsighdWDEUmpqua Valley Community Hospital Ambulatory PPGStart: 30-88-1623Gfmmyoonq encounterMadison Sury [facility] OncologyStart: 10-17-2023 End: 05-38-5205Onqnydjgl Result EncounterDiane GOMEZ Work Phone: noms External Department UnsolicitedStart: 10-17-2023 End: 48-00-7467Zexkevgbi Result EncounterDiane GOMEZ Work Phone: noms External Department UnsolicitedStart: 10-11-2023 End: 52-62-2671etndirurluWOQII FAZIONot AvailableStart: 09-01-2023 End: 34-79-2992mtrwghnxkrQFNXDB A LEHMANNFacility:[facility] BellevueStart: 08-11-2023 End: 26-36-4161ecikhbuzkoAN Samuel E. RossFacility:[facility] BellevueStart: 08-05-2023 End: 60-85-9925Lzjjzjzwi Result EncounterCorey Pippa DO Work Phone: noms External Department UnsolicitedStart: 08-05-2023 End: 01-69-3899Docrvhaxu Result EncounterCorey Pippa DO Work Phone: noms External Department UnsolicitedStart: 05-11-2023 End: 20-06-0532Jaj Drop offMatt Richmond [facility] Start: 08-03-2022 End: 07-79-9127mtyoogkeseQG KIM E KNIGHTFacility:E3Sphea: 07-06-2022 End: 86-39-5330msyynrberjJV KIM E KNIGHTFacility:W0Qsrut: 03-15-2022 End: 95-79-4845nyiutbplduBF KIM E KNIGHTFacility:Q2Lqqbj: 02-09-2022 End: 17-44-7877neiqyvwzdmOC KIM E KNIGHTFacility:C8Kptpn: 11-05-2021 End: 26-75-6947hbinehktmjHT KIM E KNIGHTFacility:J1Afkwl: 10-05-2021 End: 79-88-9885xcasythyggCG KIM E KNIGHTFacility:F7Czton: 09-18-2021 End: 42-95-8785snnnzqyenxYV KIM E KNIGHTFacility:C6Skcct: 09-08-2021 End: 74-23-0899jkqsecjjovKP KIM E KNIGHTFacility:G1Ilyrc: 09-12-2017 End: 59-43-7028QbnjumfztyFLYUKIWSelect Medical Specialty [facility] [place] Procedures DateProcedureProcedure DetailPerforming ClinicianStart: 58-55-8775QV TOMOSYNTHESIS SCREENING BICorey Pippa DO Work Phone: Start: 47-75-6058OTW CALCIUMCorey Pippa DO Work Phone: Start: 49-10-4297GUQ CREATININECorey Pippa DO Work Phone: Start: 57-06-2544Gyvtg conduction studies 7-8 studies Kaitlin OsborneStart: 42-35-9255WJV CALCIUMCorey Pippa DO Work Phone: Start: 81-72-3767Ifaxdg-up visitFollow-upCOURTNEY PAYNEStart: 98-04-7736AF MIREYA W/ TRANSNabor GOMEZ Work Phone: Start: 50-22-3979SDJ 12-LEADCorey Pippa DO Work Phone: Start: 07-81-2747EehhxxtigucxIhtmvd Ross Start: 62-63-0343Fxifaenls mammography bi 2-view breast inc cadFARA FORBEStart: 28-98-5753Aps bone density study 1/> sites axial skelFARA GNOholecystectomyJochantale FootballScout Comment on above:bile duct surgeryColonoscopyJoAccuTherm Systems Comment on above:2012 normalLaser device (physical object)Matt Football[employer] Comment on above:eye Plan of Treatment DateCare ActivityDetailAuthorStart: 09-03-2025 End: 73-59-7191Oqjbmnp encounter procedureNOMS [facility] OBStart: 98-97-6961lonpigusam AmbulatoryFacility:FT FM BellevueStart: 96-93-5216Xcsdd BMI ScreeningAdult BMI ScreeningProMedica Health SystemStart: 43-32-9829Smjsn BMI ScreeningAdult BMI ScreeningProCorey Hospitalca Health SystemStart: 91-09-9479Qxgshfe ScreeningTobacco ScreeningProMedica Health SystemStart: 83-00-8391Utnxc BMI ScreeningAdult BMI ScreeningProCorey Hospitalca Health SystemStart: 68-54-7059Rdfvohc ScreeningTobacco ScreeningProMedica Health SystemStart: 08-28-2024 End: 64-56-1943YSK Skeletal system Views for bone densityDEXA bone density Imaging Routine Postmenopausal state Expected: 08/28/2024 (Approximate), Expires:08/28/2025NOMS HealthcareComment on above:Expected: 08/28/2024 (Approximate), Expires: 08/28/2025Start: 08-28-2024 End: 43-90-3495FK Breast - bilateral ScreeningBilateral screening mammogram Imaging Routine Breast cancer screening by mammogram Expected: 08/28/2024, Expires: 10/26/2025[facility] Work Phone: comment on above:Expected: 08/28/2024, Expires: 10/26/2025Start: 08-28-2024 End: 05-28-2746Lwvdoqt encounter tugmwzmzy10/07/2025 9:00 AM EST Office Visit [facility] [address] [place] [address] Bentley Das, DO [address] [place] [address] ArrivedNOMS THOMAS HOSPITAL OBComment on above:ArrivedStart: 49-88-1850Abwbtapqx vaccinationInfluenza VaccineCape Fear/Harnett Healthtart: 12-27-2023 End: 79-67-3198Fwpivvh encounter uohcugqcl13/07/2024 11:00 AM EDT Office Visit Lurdesalejandra Salesn [facility] - Medical Oncology [address] [place] [phone] Mary Pennington PA [address] [place], [place] [phone] (Work) Lurdes L Meagher [facility] - Medical OncologyStart: 11-29-2023 End: 78-86-8178Wqyathz encounter zcdudeuby75/09/2024 10:30 AM EDT Office Visit Lurdes Rosado Meagher [facility] - Medical Oncology [address] [place] [address], [place] [phone] Mary Pennington PA [address] [place], [place] [phone] (Work) Lurdes L Meagher [facility] - Medical OncologyStart: 11-14-2023 End: 01-27-5398Gvvvvftfa to same day surgery anyffy6911/14/2023 11:00 AM EDT - 11/14/2023 1:00 PM EDT Surgery [facility] of [facility] - Surgery [address] [place] [address] Nabil Lord MD [address] [place] [address], [address] [place] [address] DAVINCI HYSTERECTOMY SALPINGO OOPHORECTOMY(WITH FROZEN SECTION AND POSSIBLE STAGING)[facility] SouthComment on above:DAVINCI HYSTERECTOMY SALPINGO OOPHORECTOMY(WITH FROZEN SECTION AND POSSIBLE STAGING)Start: 11-14-2023 End: 82-78-3275XDZFOEF HYSTERECTOMY SALPINGO OOPHORECTOMYDAVINCI HYSTERECTOMY SALPINGO OOPHORECTOMY THICKENED ENDOMETRUM/POST MENOPAUSAL BLEEDING/CERVICAL ST ENOSIS 11/14/2023 11:00 AM EDSwain Community Hospitaltart: 53-84-9805Bckonzcqzv hospital visit by inkemsaiu31/25/2024 11:00 AM EDT Hospital Encounter [facility] Surgery [address] [place] [address] Nabil Lord MD [address] [place] [address] [place], [place] [phone] [facility]: 11-07-2023 End: 76-82-3058Ymlvehfdd to zeadexkmnehbk72/18/2024 10:30 AM EDT Support Visit [facility] On [address] [phone] Metro [facility]Ad[facility] On [facility] Start: 10-28-2023 End: 37-29-1749UI Chest PA and LateralX-ray chest 2 views Imaging Routine Preop testing Expected: 10/28/2023, Expires: 10/27/2024A[facility]ike Medical CenterComment on above:Expected: 10/28/2023, Expires: 10/27/2024Start: 10-26-2023 End: 18-37-5958Mxcvevo encounter bqbphutug81/06/2024 3:00 PM EST Office Visit [facility] [address] [place] [phone] Nabil Lord MD [address] [place] [address], [address] [place], [place] [phone] (Work) [facility] OncologyStart: 81-10-3650Kcynyjjxi vaccinationInfluenza VaccineProMedica Health SystemStart: 30-33-5965Fqgvt BMI ScreeningAdult BMI ScreeningKettering Health – So[facility] Medical [facility] SystemStart: 63-50-6220Xbul Risk ScreeningFall Risk ScreeningKettering Health – Soin Medical Center SystemStart: 57-98-4725Vcikdzhwmncexk of varicella zoster vaccineZoster (Shingles) Vaccine (1 of 2)[facility] SystemStart: 12-18-2957GVcJ,Tdap and Td Vaccines (1 - Tdap)DTaP,Tdap and Td Vaccines (1 - Tdap)[facility] SystemStart: 68-18-5633Uowpz BMI Follow Up PlanAdult BMI Follow Up PlanKettering Health – Soin Medical Center SystemStart: 50-58-5059Dmqzgkawgr ScreeningDepression ScreeningKettering Health – So[facility] Medical Center SystemStart: 23-33-4118Knltnmx ScreeningTobacco ScreeningKettering Health – So[facility] Medical Center SystemStart: 1952Medicare Annual Wellness VisitMedicare Annual Wellness VisitAdena Pike Medical Center End: 06-00-2538QZQ W Auto Differential panel - BloodCBC with auto diff Lab Routine Preop testing 1 Occurrences starting 10/28/2023 until 10/27/2024 [facility] Work Phone: Comment on above:1 Occurrences starting 10/28/2023 until 10/27/2024 End: 61-41-8885Aumedtviwtkae metabolic 2000 panel - Serum or PlasmaComprehensive metabolic panel Lab Routine Preop testing 1 Occurrences starting 10/28/2023 until 10/27/2024[facility] SystemComment on above:1 Occurrences starting 10/28/2023 until 10/27/2024 End: 82-56-7198ZBQ 12 leadECG 12 lead ECG Routine Preop testing 1 Occurrences starting 10/28/2023 until 10/27/2024[facility] SystemComment on above:1 Occurrences starting 10/28/2023 until 10/27/2024 Immunizations Immunization DateImmunizationNotesCare RwhvpnhwSzzfdzii88-96-9613thdebxmdfnbm polysaccharide vaccine, 23 Ian Chinchilla [phone]-PzohsMadison Health Medicine [place] 73-76-9133dfnhaqfboqtq conjugate vaccine, 13 Ian Chinchilla [phone]-FapknChildren'S Hospital For Rehabilitation 26-51-0796rjtgbsuph A vaccine, adult dosageSamjv Chinchilla [phone]-HibyjChildren'S Hospital For Rehabilitation 19-28-3752fvqprhkmf A vaccine, adult dosageSamjv Chinchilla [phone]-DdmzhChildren'S Hospital For Rehabilitation 62-55-1446jqmipfmrw virus vaccine, unspecified formulationLinette Ga RN [facility]11-21-2014influenza, injectable, quadrivalent, preservative freeCorey Pippa DO Work Phone: [facility] CenterMhiudztqbb98-72-3929fpzmomhpa virus vaccine, unspecified formulationSamjv Chinchilla [phone]-GkhqmChildren'S Hospital For Rehabilitation 87-79-9721nlqtznhrd, seasonal, injectableCorey Pippa DO Work Phone: [facility] CenterCwjcbwjheh08-01-6294uzgalaqyk virus vaccine, unspecified formulationSamjv Chinchilla [phone]-RoegjChildren'S Hospital For Rehabilitation 82-89-0381ugguihmih, seasonal, injectableCorey Pippa DO Work Phone: [facility] CenterTafdeaovqm63-08-7497pumfvdppz virus vaccine, unspecified formulationSamjv Chinchilla [phone]-AnjsrChildren'S Hospital For Rehabilitation 86-29-5088mxbfawrqg, seasonal, injectableCorey Pippa DO Work Phone: [facility] CenterZyefezwvdw32-64-7243fcdjyqipddlt polysaccharide vaccine, 23 valentSafsaneh Chinchilla [phone]-NgujwChildren'S Hospital For Rehabilitation NEGATED: Highlighted row has not occurred!77-35-7022qebkepbjd virus vaccine, unspecified formulationSamjv Chinchilla [phone]-TupueChildren'S Hospital For Rehabilitation NEGATED: Highlighted row has not occurred!58-39-0103qwwfqyxhr virus vaccine, unspecified formulationSafsaneh Chinchilla 667-8475Mxkflk-HbjtpChildren'S Hospital For Rehabilitation NEGATED: Highlighted row has not occurred!98-98-7627EIJY-CoV-2 mRNA (tozinameran 5y-11y) vaccineJochantale Richmond [phone]-MgvqlSelect [facility] Payers DatePayer CategoryPayerPolicy ID2022Medicare (Managed Care)[employer]ARE [employer]VANTAGE [id number] 2017Medicare [id number] [id number] 1950 [id number] 2..1.679368.3.57[id number] 2.0.1.871400.3.57[id number] 2.0.1.517132.3.579.[id number] 2.0.1.862014.3.57[id number] 2.840.1.839104.3.579.2.37916-27-8524Fayammb9023140 2.16.840.1.744297.3.579.2.92126-37-5658Yzpnjeb3723506 2.16.840.1.754993.3.579.2.59896-29-3822Nxierrt7536607 2.16.840.1.151232.3.57[id number] 2.16.840.1.253755.3.579.2.5[id number] 2.16.840.1.451800.3.579.[id number] 2.16.840.1.714590.3.579.2.331551-55-4919Cvtxjkx94990122 2.16.840.1.296273.3.579.2.[id number] 2.16.840.1.883435.3.579.2.645632-67-6913Gduqypj23993510 2.16.840.1.924192.3.579.2.055138-46-6146Uwtwoqx56905390 2.16.840.1.862971.3.579.2.7127 [id number] 2.16.840.1.242583.3.579.2.821383-93-8778Efurvgh24001743 2.16.840.1.546360.3.579.2.400206-99-3496Pkmizwe32130496 2.16.840.1.904066.3.579.2.947973-49-4793Hfmmfts96793529 2.16.840.1.390862.3.579.2.980639-58-9017Bhykkgg84279764 2.16.840.1.632234.3.579.2.0[id number] 2.16.840.1.556667.3.579.2.46064-41-9059Ldmsxzk90353808 2.16.840.1.086262.3.579.2.28259-96-7343Sgsesry32200790 2.16.840.1.349367.3.579.2.52925-40-5409Etaquav92305997 2.16.840.1.426795.3.579.2.35468-25-5710Ccskeav20846009 2.16.840.1.421254.3.579.2.77438-76-1719Zwfykmi6687353 2.16.840.1.153246.3.579.2.116535-56-7722Evalunz9494888 2.16.840.1.641245.3.579.2.533135-57-6948Icapnjm368764178 2.16.840.1.761611.3.579.[id number] 2.16.840.1.198827.3.579.2.75856-08-8797Rorlibf07969344 2.16.840.1.441618.3.579.2.65474-02-6184Esjbubr50377250 2.16.840.1.386209.3.579.2.31382-58-9586Yneyauq85618338 2.16.840.1.817088.3.579.2.23224-87-1174Ucgeksg87236052 2.16.840.1.392295.3.579.2.49746-01-1084Lqjbcxu96015926 2.16.840.1.712698.3.579.2.28968-56-9965Algjetb03134324 2.16.840.1.152892.3.579.2.66990-21-8510Ewpqpgr64874743 2.16.840.1.274756.3.579.2.38387-48-0788Jeeoqzv92216604 2.16.840.1.697450.3.579.2.25481-63-8821Xahwjut24450651 2.16.840.1.363604.3.579.2.74481-75-5817Ccuxccw61968163 2.16.840.1.904030.3.579.2.66448-89-0504Bgcrprw11462354 2.16.840.1.015915.3.579.2.79627-27-7085Tscapyx04376853 2.16.840.1.426586.3.579.2.727 Social History DateTypeDetailFacilityStart: 01-31-2023 End: 60-08-8743Ouigrmb smoking statusNever smoked tobacco (finding)[facility] BellevueComment on above:deniesdenies use.Start: 11-03-2022 Tobacco smoking statusNeverOhiohealth Shelby Hospital BellevueComment on above:deniesdenies use.Start: 10-02-2020 End: 38-39-2610Hzx Assigned At BirthFeOur Lady of Mercy Hospital - Anderson CenterStart: 07-27-2023 End: 08-77-3113Azffthoyk beverage intakeCurrent drinker of alcohol (finding) [facility] SystemStart: 07-27-2023 End: 09-40-8908Aqbmntejy beverage intakeProAcmc Healthcare System SystemStart: 1950 Sex assigned at birthNot on fileProMedica Health SystemHistory of tobacco use Passive smokerProBaptist Medical Center [facility] SystemStart: 01-12-2018 End: 74-94-0579Pzfrtiw use and exposureSmokeless tobacco non-userTriHealth Mint Labs SystemStart: 03-45-1208Iyw assigned at [facility] Start: 81-83-6898Zjtdvi identityIdentifies as female gender (finding)[facility] Spare Change Paymentstart: *TobaccoFRUCTcoler-goldwater specialty hospitalcWyze Start: 19-77-9900RlguploAgosscwqoAetel.inc (Droppy) Clinical Notes 08-05-2022 to 10-19-2024 Note Date & MrtrDmqgJkkundby30-26-8099 NoteNurse Consultation Note Assessment/Plan UTI symptoms (R39.9: [...] Protein Urine Dipstick: Trace (10/19/24 10:07:00) Specific [place] Urine Dipstick: 1.020 (10/19/24 10:07:00) Urine Appearance Urine Dipstick: Slightly cloudy (10/19/24 10:07:00) Urine Color Urine Dipstick: Light yellow (10/19/24 10:07:00) Urobilinogen Urine Dipstick: Normal 0.2-1 EU/dl (10/19/24 10:07:00) pH Urine Dipstick: 7 (10/19/24 10:07:00)[facility]01-07-2025 History of Present illness Narrative* Maryanne [...] Daily aspirin 81 mg, Every other day Jywxofj-Uecvmggmnc-Mywfnnw D (VITAMIN D3/CALCIUM/PHOSPHORUS PO) 1 each, Daily Denosumab (PROLIA SC) 1 Units, Every 6 months Durysta 10 mcg, As needed losartan (COZAAR) 100 mg, Daily [place]-3 500 mg rosuvastatin (CRESTOR) 20 mg ALLERGIES Allergies Allergen Reactions Hydromorphone Unknown PROBLEMS Active Ambulatory Problems Diagnosis Date Noted Age-related osteoporosis without current pathological fracture ([facility]) 01/31/2023 Arthritis 12/27/2016 Hypercholesterolemia ([facility]) 12/27/2016 Hypertension ([facility]) 01/31/2023 Iron deficiency anemia 12/27/2016 TIA (transient ischemic attack) 01/31/2023 History of colon polyps 02/01/2023 Hyperlipidemia ([facility]) 02/23/2023 Resolved Ambulatory Problems Diagnosis Date Noted No Resolved Ambulatory Problems Past Medical History: Diagnosis Date Bronchitis Capillary angioma Cataracts, bilateral Chicken pox Family history of cancer Gallstone pancreatitis 2016 Glaucoma ([facility]) Hemorrhoids 2013 High blood pressure ([facility]) High cholesterol ([facility]) Measles Mumps Osteoporosis ([facility]) Pneumonia Stress fracture Tonsillitis Tubular adenoma 2013 HISTORY PAST MEDICAL HISTORY SOCIAL HISTORY Past Medical History: Diagnosis Date Arthritis Bronchitis Capillary angioma Cataracts, bilateral Chicken pox Family history of cancer Gallstone pancreatitis 2017 Glaucoma ([facility]) Hemorrhoids 2013 High blood pressure ([facility] High cholesterol ([facility]) Measles Mumps Osteoporosis ([facility]) Pneumonia Stress fracture Tonsillitis Tubular adenoma 2012 [...] nursing note reviewed. Exam conducted with a airplane electrical repairer present. Vitals: Estimated body mass index is [...] Das DO documented in this encounterSaint John's Regional Health CenterVciztjxkxf49-87-3612 NoteNurse Consultation Note Reason for Visit Here [...] inactivated 05/17/2011 Recorded pneumococcal 23-valent vaccine 06/25/2008 [facility]ed[facility] 07-30-2024 NotePatient Education Cardiovascular Hypertension, Adult [...] Keep all follow-up visits. Medicines ??? Take lwxn-lrn-picjsoa and prescription medicines only as told by [...] ??? Hypertension is a (more content not included)...[facility] 07-13-2024 NotePatient Education Infectious Disease Pharyngitis [...] these instructions at home: Medicines ??? Take xigp-yhh-zwphrkh and prescription medicines only as told by [...] and water are not available, use hand buyer agent. ??? Do not touch your eyes, nose, [...] away. Call your local emergency services (911 [facility] [place] ??? Do not wait to see [...] provider. Document Revised: 11/04/2021 Document Reviewed: 11/04/2021 ElseVineloop Patient Education ? 2023 Kobo.[facility] 12-27-2023 History of Present illness Narrative* [...] 01/12/2018 Performed by Nitesh Littlejohn MD at [facility] ROBOTIC ASSISTED HYSTERECTOMY, BILATERAL SALPINGO OOPHORECTOMY, PELVIC WASHINGS Bilateral 11/14/2023 Performed by Nabil Lord MD at [facility] SURGERY HEMORROIDECTOMY 1999's SKIN BIOPSY Right [...] - Inability: Never True Received from [facility] Safety & Environment Review of [...] *This note was completed using a voice b2b sales professional system. Every effort was made to ensure accuracy. However, inadvertent computerized b2b sales professional errors may be present. .Total time spent was 20 minutes: Preparing to see the patient (e.g., review of tests) Performing a medically appropriate examination and/or evaluation Counseling and educating the patient/family/caregiver Documenting clinical information in the electronic or other health record Care coordination (not separately reported) Mary Pennington PA-C, RD, IF JASON Zaragoza 12/27/23 1109 documented in this encounterAdena Pike Medical Center04-09-2024 History of Present illness Narrative* JASON Zaragoza [...] 01/12/2018 Performed by Nitesh Littlejohn MD at [facility] DAVINCI ROBOTIC ASSISTED HYSTERECTOMY, BILATERAL SALPINGO [...] *This note was completed using a voice b2b sales professional system. Every effort was made to ensure accuracy. However, inadvertent computerized b2b sales professional errors may be present. .Total time spent was 20 minutes: Preparing to see the patient (e.g., review of tests) Performing a medically appropriate examination and/or evaluation Counseling and educating the patient/family/caregiver Documenting clinical information in the electronic or other health record Care coordination (not separately reported) Mary Pennington PA-C, RD, IF JASON Zaragoza 11/29/23 1101 documented in this encounterSpringfield HospitalBohemia Interactive Sim[facility]03-18-2024 Instructions* Pre- Procedure Instructions - Angelia Kramer RN - 11/07/2023 10:30 AM EDT Your surgery/procedure is scheduled at [facility] on 11/14/2023 at 11 am Arrival Time 9 am [facility] Address: [address] [place] [address], [address] [place] [address] in the Emergency Center Parking lot. Report to the front end loader operator in the Emergency/Surgery Registration lobby of the hospital. Please call Pre-Admission Clinic at [phone] if you have any questions prior to surgery. For questions the morning of surgery, please call the Pre-op Department at [phone]. Notify your SURGEON if you develop any [...] would like to schedule therapy at a [facility] facility, please call [phone] ([phone]). Do not use lotions, creams, powders, perfume, make up, cologne or after-shaves day of surgery. Remove ALL jewelry including wedding rings, body piercings, hair extensions that contain metal, nail belarusian, make-up, and contact lens. You may brush your teeth the morning of surgery, but do not swallow the water. Wear your dentures and partial plates to the hospital (no adhesive). Shower the night the before. If applicable, use the CHG (chlorhexidine gluconate) soap or wipes. Please be advised, [facility] has transitioned to a cashless payment [...] RIGHTS AND RESPONSIBILITIES As a patient at [facility], you have the right to: Receive medical care and be informed of who is taking care of you Be treated with dignity and respect Have a family member/sales representative printing paper of choice and your physician notified of your admission Receive information and actively participate in decisions about your care and treatment Refuse care, treatment and services Decide who may provide your support and speak for you Access muslim and spiritual services Participate in ethical issues [...] charges and payment methods Patient/patient sales representative printing paper responsibilities are to: Provide information about health status to facilitate care, treatment and services Follow the treatment, plan, keep appointments and speak up when you do not understand the plan Respect the rights of other patients and healthcare personnel Follow organizational rules and regulations that support quality care and a safe environment Fulfill financial obligations as promptly as possible [facility]03-18-2024 Miscellaneous Notes* Perioperative Nursing Note - Angelia Kramer RN - 11/07/2023 10:30 AM EDT [facility] going to [facility] on 11/09/2023 to havre EKG, CXR and labs. * Pre-Procedure Instructions - Angelia Kramer RN - 11/07/2023 10:30 AM EDT Your surgery/procedure is scheduled at [facility] on 11/14/2023 at 11 am Arrival Time 9 am [facility] Address: [address] [place] [address], [address] [place] [address] in the Emergency Center Parking lot. Report to the front end loader operator in the Emergency/Surgery Registration lobby of the hospital. Please call Pre-Admission Clinic at [phone] if you have any questions prior to surgery. For questions the morning of surgery, please call the Pre-op Department at [phone]. Notify your SURGEON if you develop any [...] would like to schedule therapy at a [facility] facility, please call [phone] ([phone]). Do not use lotions, creams, powders, perfume, make up, cologne or after-shaves day of surgery. Remove ALL jewelry including wedding rings, body piercings, hair extensions that contain metal, nail belarusian, make-up, and contact lens. You may brush your teeth the morning of surgery, but do not swallow the water. Wear your dentures and partial plates to the hospital (no adhesive). Shower the night the before. If applicable, use the CHG (chlorhexidine gluconate) soap or wipes. Please be advised, [facility] has transitioned to a cashless payment [...] RIGHTS AND RESPONSIBILITIES As a patient at [facility], you have the right to: Receive medical care and be informed of who is taking care of you Be treated with dignity and respect Have a family member/sales representative printing paper of choice and your physician notified of your admission Receive information and actively participate in decisions about your care and treatment Refuse care, treatment and services Decide who may provide your support and speak for you Access muslim and spiritual services Participate in ethical issues [...] charges and payment methods Patient/patient sales representative printing paper responsibilities are to: Provide information about health status to facilitate care, treatment and services Follow the treatment, plan, keep appointments and speak up when you do not understand the plan Respect the rights of other patients and healthcare personnel Follow organizational rules and regulations that support quality care and a safe environment Fulfill financial obligations as promptly as possible documented in [facility] encounter[facility] Nurse Note* Perioperative Nursing Note - Angelia Kramer RN - 11/07/2023 10:30 AM EDT Pt is going to [facility] on 11/09/2023 to havre EKG, CXR and labs. [facility]03-08-[facility] Miscellaneous Notes* Telephone Encounter - Raj Nuñezsteven - 10/28/2023 11:19 AM EST Spoke with Mee 3 and 10/27 to confirm surgery plan. Patient is scheduled at [facility] with Dr Lord on 11/14/23. She knows to arrive at 9:00a for 11:00a surgery. Patient knows to call [phone] to locate closest [facility] facility in order to complete PAT testing. She has phone call PAT scheduled for 11/07/23. She will follow up with Mary in [place] on 11/29/23 at 10:30a. documented in this encounterAdena [facility]03-[facility]24 Telephone encounter Note* Telephone Encounter - Raj Nuñezsteven - 10/28/2023 11:19 AM EST Spoke with Mee 10/26 and 10/27 to confirm surgery plan. Patient is scheduled at [facility] with Dr Lord on 11/14/23. She knows to arrive at 9:00a for 11:00a surgery. Patient knows to call [phone] to locate closest [facility] facility in order to complete PAT testing. She has phone call PAT scheduled for 11/07/23. She will follow up with Mary in [place] on 11/29/23 at 10:30a. [facility]03-06-[facility]24 History of Present illness Narrative* Nabil Lord [...] personal or family history of GI or clin asst malignancies. Oncology History No overview note Isaura [...] 01/12/2018 Performed by Nitesh Littlejohn MD at [facility] HEMORROIDECTOM[facility] TONSILLECTOMY Past Medical History: Diagnosis [...] procedures Referring and communicating with other health career technical supervisor (not separately reported) Documenting clinical information in the electronic or other health record Independently interpreting results (not separately reported) and communicating results to the patient/family/caregiver Nabil Lord MD documented in this encounterAdena [facility]02-28-2024 Miscellaneous Notes* Telephone Encounter - Linette Ga RN - 10/19/2023 10:05 AM EST Left VM to schedule W[employer] FIELD SERVICE MANAGER appt with clin asst onc, call back # provided. Requested images from pelvic US be pushed via PACS from [employer]. documented in this encounterAdena [facility]ike [facility] Center02-28-2024 Telephone encounter Note* Telephone Encounter - Linette Ga RN - 10/19/2023 10:05 AM EST Left VM to schedule WIND FIELD SERVICE MANAGER appt with clin asst onc, call back # provided. Requested images from pelvic US be pushed via PACS from [employer]. [facility]2023 NoteProcedures Choosing a Surgeon When you need [...] a surgeon: ? Is certified by the [employer]. To be board certified, a surgeon must go through an approved residency training program and pass a comprehensive exam. You can check your surgeon's board certification at www.abms.org/verify-certification/ ? Has had any problems with state licensing authorities. You can check whether a surgeon has had malpractice claims or other professional problems by going to your state medical board at www.fsmb.org/tudafmg-x-bdamr-medical-board/ ? Has good ratings from other patients [...] the Joint Commission or the AccreditationAssociation for [facility]. Step 4: Meet with [...] you are considering is certified by the [employer] Specialties. ? Meet with [...] provider. Document Revised: 10/19/2021 Document Reviewed: 10/19/2021 [employer] Patient Education ? 2022 [employer] 08-05-2022 NotePROCEDURE: XR FOOT LT MIN [...] Electronically authenticated by: ALAN CÁRDENAS Date: 2022-08-04 22:03[facility] Future Appointments Appointment Date:05/30/2023 02:00:00 PM Scheduled Provider: Location:[facility] Appointment Type: Medicare Wellness Subsequent Appointment Date:05/30/2023 02:40:00 PM Scheduled Provider:Anamaria Chinchilla MD Location:[facility] Appointment Type: Open Diagnostic Tests Pending * Urine Culture [facility] Future App[facility]ments Appointment Date:07/30/2024 10:30:00 AM Scheduled Provider:Anamaria Chinchilla MD Location:[facility] Appointment Type:FM Open Appointment Date:07/30/2024 11:00:00 AM Scheduled Provider: Location:[facility] Appointment Type:FM Medicare Wellness Subsequent Diagnostic Tests Pending * Urine Culture 05/07/24 [facility] evaluation + Plan note Future Appointments Appointment Date:01/28/2025 08:45:00 AM Scheduled Provider:Anamaria Chinchilla MD Location:[facility] Appointment Type:FM Open Appointment Date:08/01/2025 11:00:00 AM Scheduled Provider: Location:[facility] Appointment Type:FM Medicare Wellness Subsequent [facility] evaluation + Plan note Future Appointments Appointment Date:01/28/2025 08:45:00 AM Scheduled Provider:Anamaria Chinchilla MD Location:[facility] Appointment Type:FM Open Appointment Date:08/01/2025 11:00:00 AM Scheduled Provider: Location:[facility] Appointment Type: Medicare Wellness Subsequent Diagnostic Tests Pending * Urine Culture 10/19/24 [facility] evaluation note* Diagnosis Well woman exam with routine gynecological exam Routine gynecological examination Breast cancer screening by mammogram Postmenopausal state Asymptomatic postmenopausal status (age-related) (natural) documented in this encounter [facility] HealthcareEvaluation note* Diagnosis Encounter for postoperative care- Primary [facility] Diagnosis Endometrial thickening on ultrasound- Primary Postmenopausal bleeding [facility]* Diagnosis Preop testing- Primary Unspecified pre-operative examination documented in this encounter [facility]* Diagnosis Encounter for postoperative care- Primary [facility] Narrative No data available for this section [facility] No data available for this section [facility] HospitalInstructionsNot on filedocumented in this encounter [facility]Not on filedocumented in this encounter [facility] System[facility]ructionsNot on filedocumented in this encounter [facility] System[facility]Not on filedocumented in this encounter [facility]Not on filedocumented in this encounter [facility] System[facility]ructionsNot on filedocumented in this encounter [facility] SystemProgress note No data available for this section [facility] Summary Purpose Family History No Family [...] Procedures ECG 12 lead Nabil Lord MD [address] [place] [address], [place] [address] Referral IDStatusReasonStart DateExpiration DateVisits RequestedVisits [id number] Review Additional Source Comments INFORMATION SOURCE (unrecogn ized section and content) DATE CREATED AUTHOR 02/13/2018 [facility] DATE CREATED AUTHOR AUTHOR'S ORGANIZ ATION 08/12/2022 [facility] DATE CREATED AUTHOR AUTHOR'S ORGANIZ ATION 10/27/2023 [facility] DATE CREATED AUTHOR AUTHOR'S ORGANIZ ATION 10/28/2023 [facility] DATE CREATED AUTHOR AUTHOR'S ORGANIZ ATION 11/18/2023 [facility] DATE CREATED AUTHOR AUTHOR'S ORGANIZ ATION 12/28/2023 [facility] DATE CREATED AUTHOR AUTHOR'S ORGANIZ ATION 05/15/2024 [facility] DATE CREATED AUTHOR AUTHOR'S ORGANIZ ATION 08/10/2024 [facility] DATE CREATED AUTHOR AUTHOR'S ORGANIZ ATION 08/13/2024 [facility] DATE CREATED AUTHOR AUTHOR'S ORGANIZ ATION 09/03/2024 [facility] DATE CREATED AUTHOR AUTHOR'S ORGANIZ ATION 09/13/2024 [facility] DATE CREATED AUTHOR AUTHOR'S ORGANIZ ATION 10/21/2024 [facility] DATE CREATED AUTHOR AUTHOR'S ORGANIZ ATION 10/22/2024 [facility] DATE CREATED AUTHOR AUTHOR'S ORGANIZ ATION 05/30/2025 [facility] DATE CREATED AUTHOR AUTHOR'S ORGANIZ ATION 07/03/2025 [facility] DATE CREATED AUTHOR AUTHOR'S ORGANIZ ATION 07/04/2025 [facility] Patient Care team informatio n (unrecognized section and content) Team MemberRelationshipSpecialtyStart DateEnd Date Anjelica Gambino MD [address] [place] [address] PCP - GeneralFamily Medicine01/27/23Team MemberRelationshipSpecialtyStart DateEnd Date Anjelica Gambino MD [address] [facility] [place] [address] PCP - GeneralFamily Medicine01/27/23Team MemberRelationshipSpecialtyStart DateEnd Date Anamaria Chinchilla MD [address] [facility] [place], [place] [phone] PCP - GeneralFamily Medicine3/18/24Team MemberRelationshipSpecialtyStart DateEnd Date Anjelica Gambino MD [address] [place] [address] PCP - GeneralFamily Medicine12/24/16Team MemberRelationshipSpecialtyStart DateEnd Date Anjelica Gambino MD [address] [place] [address] PCP - GeneralFamily Medicine12/24/16Team MemberRelationshipSpecialtyStart DateEnd Date Anjelica Gambino MD [address] [place] [address] PCP - GeneralFamily Medicine12/24/16Team MemberRelationshipSpecialtyStart DateEnd Date Anamaria Chinchilla MD [address] [place] [address] PCP - GeneralFamily Medicine11/07/23Team MemberRelationshipSpecialtyStart DateEnd Date Anjelica Gambino MD [address] [place] [address] PCP - GeneralFamily Medicine01/27/23Team MemberRelationshipSpecialtyStart DateEnd Date Anjelica Gambino MD [address] [place] [address] PCP - GeneralFamily Medicine01/27/23Team MemberRelationshipSpecialtyStart DateEnd Date Anjleica Gambino MD [address] [place] [address] PCP - GeneralFamily Medicine01/27/23 Reason for Visit [...] BE BASED ON THE PRIMARY CLINICAL RECORDS. [facility]. provides no warranty or guarantee of the accuracy or completeness of information in this document.
== END 2025-07-22 12:16 | disposition home or self-care (01) ==
LOC: CT 12:15
PROVIDERS: PCP Nurse Practitioner; Visit Provider Student in an Organized Health Care Education/Training Program
DX: R20.0 Anesthesia of skin (principal); M79.671 Pain in right foot; S92.354D Nondisplaced fracture of fifth metatarsal bone, right foot, subsequent encounter for fracture with routine healing
CPT/HCPCS: 70496; 70498; 73630; Q9967

== ENCOUNTER 2025-07-24 08:24 | Outpatient (OUT) | payer MEDICARE, SELFPAY ==
--- OUTSIDE RECORDS SUMMARY | 2025-07-22 05:30 | XMS_ITS ---
Author Organization [facility] Address [address] [address], [place] [address] Care Team Providers Care Inverted Block Operator Name Role Phone Polina Alvarado Primary Care Provider UnavailGraham Powell Unavailable [phone] Allergies Allergen (clinical drug ingredient) Drug/Non Drug Allergy documented on EMR Reaction Allergy Type Onset Date Status hydromorphone Dilaudid Unknown Drug Allergy Active REASON FOR VISIT Right Foot Pain Medications Medication SIG (Take, Route, Frequency, Duration) Notes Start Date End Date Status Norvasc 5 MG Tablet 1 tablet Orally Once a day ActiveRosuvastatin Calcium 20 MG TabletOral; Duration: 90 DaysActiveLosartan Potassium 100 MG TabletOral; Duration: 90 DaysActiveBaby AspirinActiveStool Softener 100 MG Capsule1 capsule as needed Orally Once a dayActiveProliaActive Vitamin S5ImvgszAyerp 3ActiveGlucosamine Chondr 1500 ComplxActiveVitamin EActive Durysta 10 MCG Implantas directed IntraocularActive Social History Section Notes: Non smoker. Daily alcohol use. 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 She is doing great and xrays demonstrate progressive consolidation of 5th metatarsal fracture. She is having no pain. She may progress to normal shoes and activity as painallows. She may f/u as needed. 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 She is doing great and xrays demonstrate progressive consolidation of 5th metatarsal fracture. She is having no pain. She may progress to normal shoes and activity as pain allows. She may f/u as needed. Next Appt Details Follow Up: prn, Reason: History and Physical Notes * HPI (History of Present Illness) CategorySub-CategoryDetailNotesCategory NotesFootIsaura presents for f/u regarding right 5th metatarsal stress fracture. She is having no pain in either foot. She has been in surgical shoe most of the time relating she occasionally wears a dress shoe to zoroastrianism. No swelling or bruising. Examination CategorySub-CategoryDetailNotesCategory NotesGeneral Examination Skin: Skin intact. No sign of infection Neuro: LTS intact to plantar and dorsal foot. Negative tinel's sign Vasc: pedal pulses are palpable. No calf pain on squeeze MSK: No POP. Strength is equal and symmetric Progress Notes * CATRACHO SaraOB:1949 (75 yo F)Acc No.[id number]:07/22/2025 Progress Notes Patient: Isaura Pandey :?ROSEANNE GonzalezOB:1950???Age:75 Y ???Sex:FemaleDate:07/22/2025Phone:Address:[address] [place] [address], [phone]:Polina Alvarado Subjective: * Chief Complaints: * R ight Foot Pain * HPI: ???Foot:?Isaura presents for f/u regarding right 5th metatarsal stress fracture. She is having no pain in either foot. She has been in surgical shoe most of the time relating she occasionally wears a dress shoe to zoroastrianism. No swelling or bruising. * Medical History: Anemia Athritis High Blood Pressure High Cholesterol Anesthesia Problems Hypertension Medical History Verified * Surgical History: Gallbladder Removal ? Benign Tumors ? Hemorhoidectomy ? Hysterectomy 2022? Prolapsed Bladder Repair ? Surgical History verified.? * Family History: F ather: . M other: . F amily History Verified.. * Social History: Social History Verified. ???Non smoker. Daily alcohol use. * Medications: T akingDurysta 10 MCG Implant as directed Intraocular Prolia Vitamin D3 Faison 3 Glucosamine Chondr 1500 Complx Vitamin E Baby Aspirin Stool Softener 100 MG Capsule 1 capsule as needed Orally Once a day Norvasc 5 MG Tablet 1 tablet Orally Once a day Rosuvastatin Calcium 20 MG Tablet Oral Losartan Potassium 100 MG Tablet Oral Medication List reviewed and reconciled with the patientTaking Durysta 10 MCG Implant as directed Intraocular Taking Prolia Taking Vitamin D3 Taking Faison 3 Taking Glucosamine Chondr 1500 Complx Taking Vitamin E Taking Baby Aspirin Taking Stool Softener 100 MG Capsule 1 capsule as needed Orally Once a day Taking Norvasc 5 MG Tablet 1 tablet Orally Once a day Taking Rosuvastatin Calcium 20 MG Tablet Oral Taking Losartan Potassium 100 MG Tablet Oral Medication List reviewed and reconciled with the patient * Allergies: D ilaudidyesAllergies Verified. Objective: * Examination: ???General Examination: ???Skin: Skin intact. No sign of infection Neuro: LTS intact to plantar and dorsal foot. Negative tinel's sign Vasc: pedal pulses are palpable. No calf pain on squeeze MSK: No POP. Strength is equal and symmetric. 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 Plan: * Treatment: Notes: Patient seen and evaluated. She is doing great and xrays demonstrate progressive consolidation of 5th metatarsal fracture. She is having no pain. She may progress to normal shoes and activity as pain allows. She may f/u as needed.?? * Follow Up: p rn Billing Information: * Visit Code: 78958 Office Visit, Est Pt., Level 2. * Procedure Codes: * Sign off status: Completed true * Provider: Jimmy Schmitz DPM Date: 09/22/2024 Generated for Printing/Faxing/eTransmitting on:?07/24/2025 08:26 AM EST
--- OUTSIDE RECORDS SUMMARY | 2025-07-24 08:26 | XMS_ITS | Clinical Summary ---
Author Organization LOFTYs tem Address [id number] [address] [place] [address] Care Team Providers Care Rn Appeals Name Role Phone Job Alvarado MD Primary Care Provider Allergies Active AllergyReactionsCriticalityNoted DateCommentsHydromorphoneConfusion, GofsxxsakshxevLrq40/18/2024 Medications MedicationSigDispense QuantityRefillsLast FilledStart DateEnd DateStatus psyllium [...] 60 tablet 11/14/2023ctive Active Problems ProblemNoted DateDiagnosed VxkzObtrfrrkxwbbdhcmtpar14/08/1359Hgfpbtcld02/08/2017 Iron deficiency ggowqg0612/27/2016 Resolved Problems ProblemNoted DateDiagnosed DateResolved DateEndometrial thickening on ultrasound /ostmenopausal snnucffv58/03/2024 Family History Medical HistoryRelationNameCommentsCancerBrotherDiabetesBrotherHeart disease BrotherKidney diseaseBrotherArthritisFatherCancerFatherDiabetesFatherHeart [...] standard drink = 0.6 oz pure alcohol)ChildcareAnswerDate XvxffmiyVyduuwvrtGavpndo28/12/2019EmploymentAnswer Date OqxvitouTpwbstniuqBhwgexe86/12/2019Hunger ScreeningAnswerDate Recorded Within the past 12 months we worried whether our food would run out before we got money to buy more.Never True11/07/2023Within the past 12 months the food we bought just didn't last and we didn't have money to get more.Never True 4Purpose - LifeAnswerDate RecordedPurpose and direction in lifeUnknown 1CommentsNoSex and Gender InformationValueDate RecordedSex Assigned at AszpqDkazan39/04/2024 9:16 AM ESTLegal GwhKtrkmz71/06/2015 12:11 PM EDTGender QmqhhijrKogglw63/04/2024 9:16 AM ESTSexual OrientationNot on file Last Filed Vital Signs Vital SignReadingTime TakenCommentsBlood Rdykqvlo039/7105 10:45 AM EDT Hlgfn387312/27/2023 10:45 AM WYGAdqjfedjsij01.6 ??C (97.8 ??F)12/27/2023 10:45 AM EDTRespiratory Nqmd779012/27/2023 10:45 AM EDTOxygen Puurlipcne82%12/27/2023 10:45 AM EDTInhaled Oxygen Concentration--Dkuuzg62.8 kg (167 lb)12/27/2023 10:45 AM LQGMlmsyi623.6 cm (5' 4.02 )12/27/2023 10:45 AM EDTBody Mass Index28.65 12/27/2023 10:45 AM EDT Plan of Treatment Health MaintenanceDue DateLast DoneCommentsDepression Afoxqwsfq19/21/1964 DTaP,Tdap and Td Vaccines (1 - Tdap)1971Zoster (Shingles) Vaccine (1 of 2) 2002Fall Risk Kffixrbtc28/21/2017Tobacco Ajmcjipnj13/25/226038/ Adult BMI Fasayhthr00/02/2024Influenza Vtyclal60, 06/05/2013, 05/18/2012, Additional history existsRSV ( or age 60+ yrs) (1 - 1-dose 75+ series)2027 [employer] Devices Not on file Insurance * Guarantor: Isaura Rivera TypeRelation to PatientDate of PhoneBilling AddressPersonal/FzfvuuKrwb1952 [address] [address] Care Teams Team MemberRelationshipSpecialtyStart DateEnd Date Job Alvarado MD [address] [place] [address] PCP - GeneralFamily Medicine11/07/23
--- OUTSIDE RECORDS SUMMARY | 2025-07-24 08:26 | XMS_ITS | Clinical Summary ---
Author Organization [facility] Address [address] [place] [address] Care Team Providers Care Art Studio Teacher Name Role Phone Francia Gambino MD Primary Care Provider [phone] Allergies Active AllergyReactionsCriticalityNoted DateCommentsHydromorphoneUnknown 01/28/2023 Medications MedicationSigDispense QuantityRefillsLast FilledStart DateEnd DateStatus Krill Oil ([place]-3) 500 MG capsule Take 500 mg by mouth.12/01/2022ctive alpha tocopherol (Vitamin E) 1000 units capsule See Instructions, take one daily 400mg, Refills(s) ctive rosuvastatin (Crestor) 20 MG tablet Take 20 mg by mouth.12/01/2022ctive aspirin 81 MG EC tablet Take 81 mg by mouth every other day.Active Wpbvrrh-Ruyfafofbz-Iliyalb D (VITAMIN D3/CALCIUM/PHOSPHORUS PO) Take 1 each [...] Units under the skin every 6 (six) peaudb5007/30/2024ctive Active Problems ProblemNoted DateDiagnosed XazvKzxpkuaeaspuir46/05/2023History of colon polyps 02/01/2023ge-related osteoporosis without current pathological fracture 01/31/20239899Bggjdsbcaebf84/12/2023TIA (transient ischemic attack)01/31/2023 Idntcjzlh03/08/5849Zbmzohvsjxujjpxxwslp40/08/2017Iron deficiency anemia 12/27/2016 Immunizations ImmunizationAdministration DatesNext DueHep A, Adult11/08/2016,05/05/2016 Influenza, injectable, quadrivalent, preservative free07/12/2014Influenza, seasonal, nzyykdwmeu30/15/2013,05/18/2012,05/17/2011Pneumococcal Conjugate PCV 13109/20/2017Pneumococcal Polysaccharide RKCA736909/24/2018,06/25/2008 Family History Medical HistoryRelationNameCommentsColon cancerBrotherBrain cancerFatherDiabetes FatherHeart diseaseFatherLung cancerFatherKidney diseaseMotherbladder cancer MotherCancerPaternal GrandmotherCancerSiblingDiabetesSiblingHeart diseaseSibling MelanomaNeg HxRelationNameStatusCommentsBrotherFatherDeceasedMotherDeceased Paternal GrandmotherSibling Social History Tobacco UseTypesPacks/DayYears UsedDateSmoking Tobacco: Never Tobacco Cessation:Counseling Given: Not Answered Alcohol UseStandard Drinks/WeekCommentsYes1 (1 standard drink = 0.6 oz pure alcohol)CommentsNoSex and Gender InformationValueDate RecordedSex Assigned at BirthNot on fileLegal KrvZqoivg42/15/2023 7:02 PM EDTGender Identity Not on fileSexual OrientationNot on file Last Filed Vital Signs Vital SignReadingTime TakenCommentsBlood Wxdqxzmm974/70008/28/2024 9:11 AM EST Pulse--Temperature--Respiratory Rate--Oxygen Saturation--Inhaled Oxygen Concentration--Ssfblm01.7 kg (169 lb)08/28/2024 9:11 AM YOGJvnzxc459.6 cm (5' 4 )05/25/2023 1:07 PM EDTBody Mass Index29.011 1:07 PM EDT Plan of Treatment DateTypeDepartmentCare Team (Latest Contact Info)Maawclvaisr53/13/2026 10:00 AM ESTOffice Visit [facility] [address] [place] [address] Bentley Das DO [address] [place], [place] [phone] Insurance Care Teams Team MemberRelationshipSpecialtyStart DateEnd Date Francia Gambino MD [address] [place] [phone] PCP - GeneralFamily Medicine01/27/23
--- OUTSIDE RECORDS SUMMARY | 2025-07-24 08:27 | XMS_ITS | Patient Health Record ---
Author Organization [facility] in [place] Address [address] [place] [address] Care Team Providers Care Manufacturing Plant Controller Name Role Phone Anamaria Chinchilla MD Primary Care Provider Sung Harris [phone] Allergies Allergen (clinical drug ingredient) Drug/Non Drug Allergy documented on EMR Reaction Allergy Type Onset Date Status hydromorphone Dilaudid Unknown Drug Allergy Active Results Component Value Reference Range Notes XR foot SARAHI min 3V (Not yet reviewed by provider) Interpretation: Performing Lab: Notes/Report: Source Facility: [place] [id number] XRay Report Signed Patient: ISAURA RIVERA MR#: [id number] : 1950 Acct:[id number] Age/Sex: 74 / F ADM Date: 09/18/24 Loc: RAD Attending Dr: Sung Schmitz D.P.M. Ordering Physician: Sung Schmitz D.P.M. Date of Service: 09/18/24 Procedure(s): XR foot SARAHI min 3V Accession Number(s): [id number] cc: Sung Schmitz D.P.M.; ANAMARIA CHINCHILLA [place] [address] Patient Name: ISAURA RIVERA MRN: [id number] date: 1950 Sex: F Assigned Patient Location: RAD Current Patient Location: RAD Accession/Order Number: [id number] Exam Date: 09/18/2024 13:05 Report Date: 09/18/2024 [...] Signed By: 09/18/24 1346 DD/ 1344 TD/TT: Chute Worker: XR foot SARAHI min 3V (Not yet reviewed by provider) Interpretation: Performing Lab: Notes/Report: Source Facility: [place] [address] XRay Report Signed Patient: ISAURA RIVERA MR#: [id number] : 1950 Acct:[id number] Age/Sex: 74 / F ADM Date: 08/08/24 Loc: RAD Attending Dr: Sung Schmitz D.P.M. Ordering Physician: Sung Schmitz D.P.M. Date of Service: 08/08/24 Procedure(s): XR foot SARAHI min 3V Accession Number(s): [id number] cc: Sung Schmitz D.P.M.; ANAMARIA CHINCHILLA [place] [address] Patient Name: ISAURA RIVERA MRN: [id number] date: 1950 Sex: F Assigned Patient Location: [facility] Current Patient Location: Accession/Order Number: [id number] Exam Date: 08/08/2024 10:36 Report Date: 08/09/2024 [...] M.D. Signed By: 08/09/24602 DD/ 0 TD/TT: Chute Worker: XR foot SARAHI min 3V (Not yet reviewed by provider) Interpretation: Performing Lab: Notes/Report: Source Facility: [place] [address] XRay Report Signed Patient: ISAURA RIVERA MR#: [id number] : 1950 Acct:[id number] Age/Sex: 74 / F ADM Date: 10/19/24 Loc: EC Attending Dr: Sung Schmitz D.P.M. Ordering Physician: Sung Schmitz D.P.M. Date of Service: 10/19/24 Procedure(s): XR foot SARAHI min 3V Accession Number(s): [id number] cc: Sung Schmitz D.P.M.; ANAMARIA CHINCHILLA [place] [address] Patient Name: ISAURA RIVERA MRN: [id number] date: 1950 Sex: F Assigned Patient Location: EC Current Patient Location: EC Accession/Order Number: [id number] Exam Date: 10/19/2024 12:14 Report Date: 10/19/2024 [...] Maryanne Coates M.D.10/19/2024 12:17 PM Dictation Location: [facility] Electron[facility] authenticated by: [id number] Y Date: 10/19/2024 12:17 Dictated By: Maryanne Coates M.D. Signed By: 10/19/24 1220 DD/ 1217 TD/TT: Chute Worker: Reason For Referral No Information Medications Medication SIG (Take, Route, Frequency, Duration) Notes Start Date End Date Status Aspirin 81 81 MG 1 tablet Orally Once a day KuhoxtQinjrv-Ggtp-QKM-Hu-A-MvHv-SeCu -as directed OrallyActiveLosartan Potassium 100 MG1 tablet [...] Arthralgia of the an kle and/or foot (597290043) Pain in left ankle and joints of left foot (M25.572) ActiveconfirmedProblemMetatarsalgia of right foot (208719256996611) Metatarsalgia, right foot (M77.41)ActiveconfirmedProblemPain in left foot (964479610605988)Pain in left foot (M79.672)ActiveconfirmedProblemPathological fracture (096116268)Age-related osteoporosis with current pathological fracture, unspecified site, initial encounter for fracture (M80.00XA)Activeconfirmed ProblemStress fracture of metatarsal bone (174963620)Stress fracture, left foot, initial encounter for fracture (M84.375A)Activeconfirmedsecond metatarsalProblem Nonunion of fracture (974594557)Stress fracture, left foot, subsequent encounter for fracture with nonunion (M84.375K)ActiveconfirmedProblemPain in right foot (947324389184639)Right foot pain (M79.671)ActiveconfirmedProblemNonunion of fracture (924691320)Nondisplaced fracture of second metatarsal bone, left foot, subsequent encounter for fracture with nonunion (S92.325K)ActiveconfirmedHigh ProblemPain in left foot (036447410787685)Left foot pain (M79.672)Active confirmed Vital Signs Heart Rate 60 /min 10/19/2024 Roqcolifdba91.5 degrees Gosilkdfmx86/28/1750Jmeciigm28 %10/19/20245365Frmdkw62 in 10/19/2024 Encounters Encounter Location Date Provider Diagnosis [facility] ([facility]) [address] [place] [address] [place] [address] 09/13/[address] [facility] ([facility]OD[facility])[address] [place] [address] [place] [address]/28/2025[facility] fracture, right foot, initial encounter for fracture M84.374A ; Age-related osteoporosis with current pathological fracture, unspecified site, initial encounter for fracture M80.00XA ; Left foot pain M79.672 ; Right foot pain M79.671 and Nondisplaced fracture of second metatarsal bone, left foot, subsequent [facility] fracture with [facility] [place] [address]/Peter HighlanderStress fracture, left foot, initial encounter for fracture M84.375A ; Stress fracture, right foot, initial encounter for fracture M84.374A ; Age-related osteoporosis with current pathological fracture, unspecified site, initial encounter for fracture M80.00XA ; Pain in left foot M79.672 and Right foot pain M79.671[facility] ([facility] [place] [address]/ Peter HighlanderStress fracture, right foot, initial encounter for fracture M84.374A ; Stress fracture, left foot, initial encounter for fracture M84.375A ; Age-related osteoporosis with current pathological fracture, unspecified site, initial encounter for fracture M80.00XA ; Metatarsalgia, right foot M77.41 and P ain in left foot M79.672 Assessments Encounter Date Diagnosis (ICD Code) Assessment Notes Treatment Notes Treatment Clinical Notes Section Notes 08/08/2024 Stress fracture, rig ht foot, initial encounter [...] initial encounter for fracture (ICD-10 - M84.375A)second boxztglczq82/28/2025Stress fracture, right foot, initial encounter for fracture [...] initial encounter for fracture (ICD-10 - M84.375A)second tpbqmkflta74/28/2025Stress fracture, right foot, initial encounter for fracture [...] initial encounter for fracture (ICD-10 - M80.00XA) 08/08/2024Metatarsalgia, right foot (ICD-10 - M77.41)09/18/2024Right foot pain (ICD-10 - M79.671)10/19/2024Pain in left foot (ICD-10 - M79.672)10/19/2024Right foot pain (ICD-10 - M79.671)09/18/2024Nondisplaced fracture of second metatarsal bone, left foot, subsequent encounter for fracture with nonunion (ICD-10 - S92.325K)4Pain in left foot (ICD-10 - M79.672) Plan Of Treatment Pending Test Test Name [...] Insured Coverage Start Date Coverage End Date ANTH MEDICARE ADV PLAN [address] [place] [address] [id number] [id number] Isaura Rivera Self - patient is the insured Medical (General) History Medical History History ICD Code arthritis high blood pressurehigh cholesterolSurgical History Surgery Date(Month/Year) right ankle I&D due to cat bite colonoscopy prolapsed bladder, cystocelecholecystectomyhemorhoidectomytonsillectomycapillary angioma x 3Hospitalization History Reason Date(Month/Year) see above
--- OUTSIDE RECORDS SUMMARY | 2025-07-24 08:27 | XMS_ITS | Patient Health Record ---
Author Organization [facility] [facility] Address [address] [place] [address], [place] [address] Care Team Providers Care Talent Consultant Name Role Phone ChristianoPolina Primary Care Provider Unavailevert Schmitz Graham Unavailable [phone] Allergies Allergen (clinical drug ingredient) Drug/Non Drug [...] DaysActiveLosartan Potassium 100 MG TabletOral; Duration: 90 DaysActiveDurysta 10 MCG Implantas directed IntraocularActiveProliaActiveVitamin T5GxooqdKtfqr 3ActiveGlucosamine Chondr 1500 ComplxActiveVitamin EActiveBaby AspirinActiveStool Softener 100 MG Capsule1 capsule as needed Orally Once a dayActive Social History Section Notes: Non smoker. Daily alcohol use. Non smoker. Daily alcohol use. Non smoker. Daily alcohol use. 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 She is doing great and xrays demonstrate progressive consolidation of 5th metatarsal fracture. She is having no pain. She may progress to normal shoes and activity as painallows. She may f/u as needed. Plan Of Treatment No Information Insurance Providers Payer Name Payer Address Payer Phone Subscriber Number Group Number Insured Name Patient Relationship to Insured Coverage Start Date Coverage End Date Marii Echavarria Medicare Access Value [address] [place] [address] [id number] Ronak Riveraelf - patient is the insured Medical (General) History Medical History History ICD Code Anemia AthritisHigh Blood PressureHigh CholesterolAnesthesia ProblemsHypertension Surgical History Surgery Date(Month/Year) Gallbladder Removal Benign KsqxdrZrlflrmrqljkilaMjtohcwzlqed6417Pxxbvtyql Bladder Repair
--- OUTSIDE RECORDS SUMMARY | 2025-07-24 08:27 | XMS_ITS | Clinical Summary ---
Author Organization [facility] Address [address], [address] [place] [address] Care Team Providers Care Fashion Coordinator Name Role Phone Francia Gambino MD Primary Care Provider Unavailab le Social History Tobacco UseTypesPacks/DayYears UsedDateSmoking Tobacco: Never Assessed CommentsUnknownSex and Gender InformationValueDate RecordedSex Assigned at Not on fileLegal LeeVwntxd04/10/2013 7:38 PM ESTGender IdentityNot on fileSexual OrientationNot on file Plan of Treatment Not on file Insurance * Guarantor: Isaura Rivera TypeRelation to PatientDate of PhoneBilling AddressPersonal/AhpapfPouf1950 [address] [address] Care Teams Team MemberRelationshipSpecialtyStart DateEnd Date Francia Gambino MD [address] [place] [address] PCP - General04/02/14
--- OUTSIDE RECORDS SUMMARY | 2025-07-24 08:27 | XMS_ITS | Clinical Summary ---
Author Organization [facility] Address [address] [place] [address] Care Team Providers Care Employee Relations Assistant Name Role Phone Unavailable Primary Care Provider Unavailabl e Social History Tobacco UseTypesPacks/DayYears UsedDateSmoking Tobacco: Never AssessedUT Safety & EnvironmentAnswerDate RecordedFear of Current or Ex-PartnerNot on file 10/13/2023Emotionally AbusedNot on file10/13/2023hysically AbusedNot on file 10/13/2023Sexually AbusedNot on file10/13/2023hysically or Sexually AbusedNot on file10/13/2023CommentsUnknownSex and Gender InformationValueDate RecordedSex Assigned at BirthNot on fileLegal WurZtlfhe34/30/2022 12:43 AM EDT Gender IdentityNot on fileSexual OrientationNot on file Plan of Treatment Not on file
--- OUTSIDE RECORDS SUMMARY | 2025-07-24 08:28 | XMS_ITS | CCD ---
Author Organization [facility] Inform ion Partnership [facility] Care Team Providers Care Head Of Store Operations Name Role Phone FARA BOOKER Unavailable Unavailable [...] Unavailable Anamaria Chinchilla MD Primary Care Provider [phone] Anjelica Gambino MD Primary Care Provider Anamaria [...] Unavailable Anjelica Gambino MD Primary Care Provider [phone] Yi, ELECTRICAL ENGINEER Matt Rosado Admitting Unavailable Yi, ELECTRICAL ENGINEER Matt Rosado Attending Unavailable Harpreet Trejo Attending Unavailable DOTTY [place] Attending Unavailable Allergies Allergy ClassificationReported Allergen(s)Allergy TypeDate of OnsetReaction(s) Facility (6 sources)atorvastatin; Translations: [atorvastatin]Drug AllergyUnknown (qualifier value)[facility] (20 sources)HYDROmorphone; Translations: [hydromorphone]Drug Dposaiz86-33-1434 Unknown (qualifier value), Unknown, Confusion, HallucinationsFish-[facility] (6 sources)Pyrilamine; Translations: [pyrilamine]Drug AllergyUnknown (qualifier value)[facility] (4 sources)No Known Medication Allergies; Translations: [No Known Medication Allergies]Propensity to adverse reactions (disorder)[facility] Repository (1 source)HYDROmorphone; Translations: [Dilaudid]Drug AllergyCincinnati [facility] InflowControl Medications Current Medications MedicationDrug Class(es)DatesSig (Normalized)Sig (Original)amLODIPine 5 mg oral tablet (16 sources)Dihydropyridine Calcium Channel BlockerStart: 54-24-2550eggp 1 tablet by mouth in the morningamLODIPine (Norvasc) 5 MG tablet Take 5 mg by mouth in the morning. 06/01/2023 Activeaspirin 81 mg oral capsule (18 sources)Platelet Aggregation Inhibitor, Nonsteroidal Anti-inflammatory Drug Start: 76-40-0142qzkz 1 capsule by mouth every other dayaspirin 81 mg oral capsule See Instructions, 1 cap(s) Oral every other day, Refills(s) 0 Start Date: 11/29/22 Status: OrderedStart: 66-24-8632xhkq 1 capsule by mouth once daily aspirin [...] 0.01 mg drug implant (14 sources)Prostaglandin AnalogStart: 60-83-0401Nbuaugw 10 mcg intraocular implant mcg, IntraOcular, Once, Refills(s) 0 Start Date: 07/13/24 Status: OrderedStart: 31-14-5721vbrsdlkdyrh 0.03% ophthalmic solution Refill(s) 0 Start Date: [...] ActiveCalcium Citrate / Vitamin D (3 sources)Start: 43-93-7206ueyxjdo-vitamin D Daily, Refill(s) 0 Start Date: 05/30/23 Status: QbeqjweDygynao-Tjxlatyjfl-Svqgoim D (VITAMIN D3/CALCIUM/PHOSPHORUS PO) (8 sources)take 1 dose by mouth once in the crpdpmvOdorqoy-Bwnxnkfsoi-Xwbneyl D (VITAMIN D3/CALCIUM/PHOSPHORUS PO) Take 1 each by mouth in the morning. Active denosumab (13 sources)RANK Ligand InhibitorStart: 35-89-8047Hwnknsjjn (PROLIA SC) Inject 1 Units under the [...] 0 Activedocusate sodium 50 mg / sennosides, half-way 8.6 mg oral tablet (2 sources)Start: 01-88-2726exhm 1 tablet by mouth in the morningsennosides- docusate sodium (SENOKOT-S) 8.6-50 mg Take 1 tablet by mouth in the morning. 60 tablet 11/14/2023 Activedoxycycline hyclate 100 mg oral capsule (1 source)Tetracycline-class DrugStart: 05-07-2024 End: 73-32-9228seml 1 capsule by mouth twice dailydoxycycline hyclate 100 mg Cap 100 mg = 1 cap(s), Oral, BID, X 7 day(s), # 14 cap(s), Refills(s) 0,Pharmacy: [facility] [id number], 162, cm, 05/07/24 14:07:00 EDT, Height/Length Dosing, 76, kg, 05/07/24 14:07:00 EDT, Weight Dosing Start Date: 05/07/24 Stop Date: 05/14/24 Status: Orderedglucosamine hydrochloride 1500 mg oral tablet (5 sources)Start: 96-92-3108fwjeocdenut hydrochloride 1500 mg oral tablet 1,500 mg, 1 tab(s), Oral, Daily, 30 tab(s), Refill(s)0 Start Date: 12/01/22 Status: Ordered End: 25-45-6647jcvs 1 capsule by mouth once dailyglucosamine sulfate [...] oil 500 mg oral capsule (12 sources)Start: 69-16-7043Lkaep Oil (Eureka-3) 500 MG capsule Take 500 mg by mouth. 12/01/2022 Activelosartan potassium 100 mg oral tablet (16 sources)Angiotensin 2 Receptor BlockerStart: 96-17-2381ivtm 1 tablet by mouth in the morninglosartan (Cozaar) 100 MG tablet Take 100 mg by mouth in the morning. 05/30/2023 ActiveStart: 67-16-4707fpkz 1 tablet by mouth twice daily losartan 25 mg Tab 25 mg = 1 tab(s), Oral, BID, # 180 tab(s), Refills(s) 0, Pharmacy: [facility] [id number], 162, cm, 05/11/23 9:36:00 EDT, Height/Length Dosing, 74.9, kg, 05/11/23 9:36:00 EDT, Weight Dosing Start Date: 05/11/23 Status: Orderedmeloxicam 15 mg oral tablet (6 sources)Nonsteroidal Anti-inflammatory DrugStart: 02-27-2023 End: 41-62-5129uvpa 1 tablet by mouth once daily as neededmeloxicam 15 mg Tab See Instructions, TAKE ONE TABLET BY MOUTH DAILY NEEDED, # 90 tab(s), Refills (s) 0, Pharmacy: [facility] [id number], 162.6, cm, 12/01/22 15:23:00 EDT, Height/Length Dosing, 76.5, kg, 12/01/22 15:23:00 EDT, Weight Dosing Start Date: 02/27/23 Status: Orderednitrofurantoin, macrocrystals 25 mg / nitrofurantoin, monohydrate 75 mg oral capsule (1 source)Nitrofuran AntibacterialStart: 10-19-2024 End: 31-14-8297oktn 1 capsule by mouth twice dailyMacrobid 100 mg Cap 100 mg = 1 cap(s), Oral, BID, X 7 day(s), # 14 cap(s), Refills(s) 0, Pharmacy: [facility] [id number], 162, cm, 09/17/24 9:18:00 EST, Height/Length Dosing, 77.9, kg, 09/17/24 9:18:00 EST, Weight Dosing Start Date: 10/19/24 Stop Date: 10/26/24 Status: Orderedomega-3 acid ethyl esters (half-way) 1000 mg oral capsule (2 sources)take 1 [...] mg oral tablet (18 sources)HMG-CoA Reductase InhibitorStart: 71-67-1899wrlkvcnoenrj (Crestor) 20 MG tablet Take 20 mg by mouth. 12/01/2022 Activetafluprost 0.015 mg/ml ophthalmic solution (5 sources)Prostaglandin AnalogStart: 32-19-6290luvb 1 drop(s) into the eye(s) once dailyZioptan 0.0015% ophthalmic solution See Instructions, Refill(s) 0, 1 drop(s) Eye-Right & Left once daily Start Date: 05/11/23 Status: Ordered End: 31-77-1313dzau 1 drop(s) into the eye(s) once dailytafluprost (PF) 0.0015 % eye drops in a dropperette 02/27/2025 instill 1 drop into affected eye(s) by ophthalmic route once daily End: 54-05-4986Vqwfgamwgp, PF, (Zioptan) 0.0015 % solution Administer 1 drop into affected eye(s) in the morning. 08/28/2024 DiscontinuedtiZANidine 4 mg oral tablet (1 source)Central alpha-2 Adrenergic AgonistStart: 56-57-3003byTZObaago 4 mg Tab 12 tab(s), 0 Refill(s), Refills(s) 0 Start Date: 07/13/24 Status: Ordered Vitamin D3 (2 sources)Start: 67-29-8255Tcmagwy D3 Refills(s) 0 Start Date: 07/30/24 Status: Orderedvitamin e 450 mg oral capsule (17 sources)Start: 51-43-7421acql 1 capsule by mouth once dailyvitamin E 450 mg oral capsule See Instructions, take one daily 400mg, Refills(s) 0 Start Date: 12/01/22 Status: OrderedStart: 29-80-3806iomfi tocopherol (Vitamin E) 1000 units capsule See [...] mg oral tablet (1 source)Start: 11-14-2023 End: 25-63-1224ervx 1 tablet by mouth every six hours as needed for pain acetaminophen (TYLENOL EXTRA STRENGTH) 500 mg tablet Take 1 tablet (500 mg total) by mouth every 6 (six) hours as needed for pain. 60 tablet 0 11/14/2023 11/29/2023 Discontinued (Therapy completed)acetaminophen 325 mg / HYDROcodone bitartrate 5 mg oral tablet (1 source)Opioid Agonist End: 50-77-4798ohqe 1 tablet by mouth every six hours as needed for pain hydrocodone 5 mg-acetaminophen 325 mg tablet 02/27/2025 take 1 tablet by oral route every 6 hours as needed for painalendronic acid 70 mg oral tablet (4 sources)Bisphosphonate End: 77-46-5673klag 1 tablet by mouth in the morningalendronate [...] oral tablet (4 sources)HMG-CoA Reductase Inhibitor End: 44-05-0387puly 1 tablet by mouth once dailyatorvastatin (LIPITOR) 10 mg tablet Take 10 mg by mouth daily. 0 11/07/2023 Discontinued (Therapy completed) betamethasone 3 mg/ml / betamethasone acetate 3 mg/ml injectable suspension (1 source)Corticosteroid End: 04-80-0545Fzfyvhgzo Soluspan 6 mg/mL suspension for injection 02/27/2025 [...] tablet (1 source)Nonsteroidal Anti-inflammatory DrugStart: 11-14-2023 End: 43-37-9282ekuk 1 tablet by mouth every six hours as needed for pain ibuprofen (MOTRIN) 800 mg tablet Take 1 tablet (800 mg total) by mouth every 6 (six) hours as needed for pain. 60 tablet 0 11/14/2023 11/29/2023 Discontinued (Therapy completed)methylPREDNISolone 4 mg oral tablet (1 source)Corticosteroid End: 63-54-6372Ginyfd (Morro) 4 mg tablets in a dose pack 02/27/2025 take by oral route as directed per package instructionsomega-3 fatty acids-fish oil (FISH OIL) 300-1,000 mg capsule (4 sources) End: 78-39-7271fnte 1 capsule by mouth once dailyomega-3 fatty acids-fish oil (FISH OIL) 300-1,000 mg capsule Take 1 g by mouth daily. 0 11/07/2023 D iscontinued (Therapy completed)take 1 capsule by mouth once dailyomega-3 fatty acids-fish oil (FISH OIL) 300-1,000 mg capsule Take 1 g by mouth daily. 0 Active oxyCODONE hydrochloride 5 mg oral tablet (1 source)Opioid AgonistStart: 11-14-2023 End: 53-93-1659aura 1 tablet by mouth every six hours as needed for pain oxyCODONE (ROXICODONE) 5 mg immediate release tablet Indications: Post-operative pain Take 1 tablet(5 mg total) by mouth every 6 (six) hours as needed for pain for up to 12 doses. Max Daily Amount: 20 mg 12 tablet 0 11/14/2023 11/29/2023 Discontinued (Therapy completed)psyllium 400 mg oral capsule (10 sources) End: 45-23-4020ikgu 1 capsule by mouth once dailyMetamucil 0.4 gram capsule 02/27/2025 take 1 capsule by oral route daily End: 55-99-6397posdifpe (Metamucil) 48.57 % powder Orally 08/28/2024 Discontinuedtake 1 dose by mouth in the morningpsyllium (METAMUCIL) 3.4 gram packet Indications: constipation Take 1 packet (3.4 g total) by mouthin the morning. Indications: constipation. Activestool softner (2 sources)Start: 66-92-5733fzoaf softner stool softner, 100 mg, Oral, Bedtime, take 2 Start Date: 07/30/24 Status: Orderedvitamin E oral 180mg (1 source)vitamin E oral 180mg 1 nightly Problems Active Problems Problem ClassificationProblemDateDocumented DateEpisodic/ChronicAbdominal pain (4 sources)Right sided abdominal jscj00-23-0416XkwmwnheUotxzst kidney disease (3 sources)Chronic kidney disease stage 3A ; Translations: [Chronic kidney disease stage 3B ]62-34-7945SvlrpjxFqgjqbh on above:Added per Dr. Chinchilla query response, per outpatient CDI policy.Deficiency and other anemia (2 sources)Zwmloz37-75-5867FiluyliuXwtcttpzf of lipid metabolism (20 sources)Pure hypercholesterolemia, unspecified; Translations: [Hypercholesterolemia]Onset: 49-42-5946AxsfgxrTbybrvpgz hypertension (17 sources)Essential (primary) hypertension; Translations: [Hypertensive disorder]Onset: 35-04-5330CgiajfnFlrrjven (1 source)Unspecified glaucomaChronicHeart valve disorders (1 source)Rheumatic disorders of both mitral and tricuspid valves; Translations: [RHEUMATIC D/O MITRAL TRICUSPID VALV]Onset: 98-28-5116JhuhyadZqmyhifnabaf with complications and secondary hypertension (3 sources)Hypertensive renal duobtjz28-71-0789GfkoidfPibrhuz on above:Linked per outpatient CDI policy.Malaise and fatigue (2 sources)Jlrbdmr29-87-8252AtnvertdLpqdhwczvd disorders (11 sources)Postmenopausal bleeding; Translations: [Postmenopausal bleeding] Onset: 10-27-2023 Resolved: 567659-92-2270RpzvifnSmfvgtetzcqwer (14 sources)Arthritis; Translations: [Unspecified osteoarthritis, unspecified site]Onset: 237405-27-8854UjgrjtyNqqacrjofgrq (15 sources)Senile osteoporosis; Translations: [Age-related osteoporosis without current pathological fracture]Onset: 454766-64-2915UajkbpiPsqay aftercare (1 source)Encounter for other specified surgical aftercare; Translations: [Encounter for other specified surgical aftercare]Onset: 21-76-3786IlxtpoaiBqbpo connective tissue disease (4 sources)Pain in left foot; Translations: [PAIN IN LEFT FOOT]Onset: 08-03-2022 EpisodicOther connective tissue disease (3 sources)Foot yaqe91-07-8371LahhwxehEwgbz connective tissue disease (1 source)Biceps -83-7834NqpjqwipLvgwu connective tissue disease (1 source)Pain in left ieh21-64-0128WnofgchbUlhmj connective tissue disease (1 source)Pain in right legOnset: 13-30-7866CihldceoZmwzz connective tissue disease (1 source)Pain in left legOnset: 71-13-3227CsrvrgqbPpxcf injuries and conditions due to external causes (2 sources)Cat bite - ygdkj18-53-8647IquqcyksUedmc lower respiratory disease (2 sources)Chronic exfnd72-61-7371QvuijzieEnssx nervous system disorders (1 source)Other acute postprocedural pain; Translations: [Other acute postprocedural pain]Onset: 35-45-1885RkjfpivfUfiro nervous system disorders (1 source)Other disturbances of skin sensationOnset: 69-87-5255TdcyxhjdYjqhb nutritional; endocrine; and metabolic disorders (3 sources)Overweight in adulthood with body mass index of 25 or more but less than 6121-21-9057CulzqnlpYmntmqeb codes; unclassified (1 source)Pain, unspecified; Translations: [Pain, unspecified]Onset: 10-19-2023 EpisodicResidual codes; unclassified (2 sources)Postmenopausal state; Translations: [Asymptomatic menopausal state] 82-93-1583HwjnqjapSxwsucf (1 source)Wfskcsi60-44-8663FstcrlyyIgdwensza cerebral ischemia (17 sources)Transient cerebral ischemic attack, unspecified; Translations: [Transient cerebral ischemia]Onset: 81-34-2127EyetsqnMgtenkhrnrpm (7 sources)Encounter for screening mammogram for malignant neoplasm of breast; Translations: [Patient encounter status]Onset: 74-85-6317QvmrtcygObwljozawxdd (1 source)THICKENED ENDOMETRUM/POST MENOPAUSAL BLEEDING/CERVICAL STENOSISOnset: 37-31-1266Jsjapvmfeiuu (1 source)Patient encounter ichybp13-32-6831Lroncca tract infections (4 sources)Urinary tract infection, site not specified; Translations: [UTI SITE NOT SPECIFIED]Onset: 06-01-8664Snuldjfi Past or Other Problems Problem ClassificationProblemDateDocumented DateEpisodic/ChronicCardiac dysrhythmias (4 sources)Palpitations; Translations: [PALPITATIONS]Onset: 68-93-6901Hgyvbjgk Deficiency and other anemia (14 sources)Iron deficiency anemia; Translations: [Iron deficiency anemia, unspecified]Onset: 923871-89-9604KzdktnzlGltvvfnd mellitus without complication (1 source)Hyperglycemia, unspecified; Translations: [HYPERGLYCEMIA UNSPECIFIED] Onset: 36-70-7579TfbwbnelBxxxl aftercare (2 sources)Postoperative visit; Translations: [Encounter for other specified surgical aftercare]84-53-1354XlatuwglNifcg and unspecified benign neoplasm (8 sources)History of polyp of colon; Translations: [History of colon polyps] Onset: 525084-97-6126SjlsaotkHysqo bone disease and musculoskeletal deformities (1 source)Other specified disorders of bone density and structure, unspecified site; Translations: [OTH D/O BONE DEN STRUCT UNS SITE]Onset: 33-85-1931Rkaoltmc Other screening for suspected conditions (not mental disorders or infectious disease) (7 sources)Abnormal findings on diagnostic imaging of other specified body structures; Translations: [Endometrium thickened]Onset: 10-27-2023 Resolved: 504994-53-5650DtjsymtAknustur codes; unclassified (1 source)Family history of malignant neoplasm of breast; Translations: [FAMILY HX MALIG NEOPLASM OF BREAST]Onset: 79-63-5314YkldtdkqSszyouao codes; unclassified (1 source)Family history of malignant neoplasm of trachea, bronchus and lung; Translations: [FAM HX MALIG NEOPLSM TRACH BRON LNG]Onset: 82-70-5718Trgxvbqg Unclassified (5 sources)Asymptomatic menopausal state; Translations: [Asymptomatic menopausal state]Onset: 20-02-8324Ahzutdjc Results Test NameValueInterpretationReference RangeFacilityC Urineon 73-54-5606Xczyheil identified Cx Nom (U)Microbiology PROCEDURE: Urine Culture [...] Locations R1: This test was performed at: [facility], [address] [place] [address], [facility] , , SsebzoIldjaiUniversity Hospitals Geauga Medical CenterComment on above:Performed By: #### [id number] #### [facility] [address] [place] [address] TOMOSYNTHESIS SCREENING BIon 63-65-0262Qlx[place]ac[place], [place] [address] Mammography Report Signed Patient: ISAURA HAYDEN MR#: [id number] : 1950 Acct:[id number] Age/Sex: 74 / F ADM Date: 04/15/25 Loc: MAMMO Attending Dr: Bentley Das D.O. Ordering Physician: Bentley Das D.O. Results: Date of Service: 04/15/25 Follow Up: Procedure(s): MM tomosynthesis screening Accession Number(s): [id number] cc: Bentley Das D.O.; YIMATT MARK Patient Name: ISAURA HAYDEN MR#: [id number] : 1950 Exam Date: 04/15/2025 Ordering Doctor: [...] lung cancer at age 72. LOCATION: [facility] BREAST COMPOSITION: There are scattered [...] Signed By: 04/15/25 1019 DD/ 1018 TD/TT: Industrial Electrician Journeyman:TBHRadiology, Radiologist, MD - 04/15/2025 [place] [address] Mammography Report Signed Patient: ISAURA HAYDEN MR#: [id number] : 1950 Acct:[id number] Age/Sex: 74 / F ADM Date: 04/15/25 Loc: MAMMO Attending Dr: Bentley Das D.O. Ordering Physician: Bentley Das D.O. Results: Date of Service: 04/15/25 Follow Up: Procedure(s): MM tomosynthesis screening BI Accession Number(s): [id number] cc: Bentley Das D.O.; MATT RICHMOND Patient Name: ISAURA HAYDEN MR#: [id number] : 1950 Exam Date: 04/15/2025 Ordering Doctor: [...] lung cancer at age 72. LOCATION: [facility] BREAST COMPOSITION: There are scattered [...] Signed By: 04/15/25 1019 DD/ 1018 TD/TT: Industrial Electrician Journeyman: [facility] HospitalRadiology Study observation (narrative)[facility] TOMOSYNTHESIS SCREENING BIOrdered By: Radiologist Radiology on 38-75-0434WZBNBarnes-Jewish Hospital Work Phone: cCF CALCIUMon 17-05-2174Cazedal [Mass/Vol]9.1 mg/dL8.5 - 10.1 mg/dLBarnes-Jewish HospitalNo Panel Informationon 60-10-3212EXWONUCLPDOHZ HealthcareTBH CREATININEon 36-51-0155Cvbiiqlslo [Mass/Vol]1.28 mg/dLHigh0.55 - 1.02 mg/dLNOMercy Hospital WashingtonGFR/1.73 sq M.predicted CKD-EPI (S/P/Bld) [Vol rate/Area]50Low>=60 mL/min/1.73m 2NOMS HealthcareInterpretation and review of laboratory resultsAbnormalNOMS HealthcareTBH EGFR-NON AF RCWWHTRA18Jzq>=60 mL/min/1.73m 2NOMS HealthcareNo Panel Informationon 52-91-3086Ryzvxuw smoking statusNon-SmokerInvalid Interpretation Wysiwyg Ambulatory Visit Summaryon 33-26-1467Vtbxpnbjnl Visit SummaryAmbulatory Visit Summary ISAURA HAYDEN :1950 [...] Follow-Up Appointments 2024 11:00 AM EST Where: [place] [id number]- Medications What How Much When Instructions Unchanged amlodipine (amLODIPine 5 mg Tab) See instructions TAKE 1 TABLET BY MOUTH DAILY Pickup at [facility] [id number] Unchanged aspirin (aspirin 81 mg oral capsule) [...] physician if questions or concerns Pharmacy Information [facility] [id number]: [address], [place] [id number] [phone] Allergies Dilaudid (Unknown) Problems Ongoing - Any [...] you for choosing us for your care. [facility] Medicine Office/Clinic Noteon 54-18-3418Oijowo Medicine Office/Clinic NoteFaelizabeth mason [facility]irmary Medicine Office/Clinic Note Chief Complaint 6 month [...] DAILY, # 90 tab(s), Refills(s) 1, Pharmacy: [facility] [id number], 162, cm, 01/28/25 9:01:00 EDT, Height/Length Dosing, 78.1, kg, 01/28/25 9:01:00 EDT, Weight Dosing - 74-year-old female with a history of hypertension, chronic kidney disease, and bursitis presenting for management. - Hypertension is well-monitored with appropriate medicative support. - Chronic kidney disease requires continued diligence in management. - Bursitis is under treatment, affecting lifestyle and mobility. - Medication regimens f (more content not included)...[facility]aug[facility] Medical CenterComment on above:Result Comment: Electronically Signed By: Amor SHORT, Anamaria Saldivar.kelly\Date and Time Signed: 01/28/25 09:32 EDTReminderson 36-99-7407Ketsjcwyq Reminders From: Matt Allen To: [facility] - Clinical; [...] M.A. ([facility] - Clinical) To: Matt Allen; Sent: 10/22/2024 09:32:36 EST Show up: 10/22/2024 09:31:00 EST Subject: RE: Ambulatory Reminder understands, and she said she is feeling a lot better than what she wasNormal [facility] HospitalRemindersReminderenedina From: Matt Allen To: [facility] - Clinical; Sent: 10/22/2024 08:07:37 EST Show up: 10/22/2024 08:07:00 EST Subject: Ambulatory Reminder Due Date/Time: 10/23/2024 08:06:00 EST urine culture was positive. she is on the correct antibiotic. continue that until it is gone. Is she feeling better? Results: Date Result Type Ind Result Name 10/19/2024 10:39 EST MBO POS Urine CultureNoACMC Healthcare System Urineon 94-89-6471Yyowdypr identified Cx Nom (U)Microbiology PROCEDURE: Urine Culture [...] Locations R1: This test was performed at: [facility], [address] [place] [address], [address] , , SovwskEfdxonUniversity Hospitals Geauga Medical CenterComment on above:Performed By: #### [id number] #### [facility] [address] [place] [address]WNM CALCIUMon 52-66-7295Omuebxl [Mass/Vol]8.9 mg/dL8.5 - 10.1 mg/dLNOMS HealthcareCLINISYNCNOMS HealthcareFami Medicine Office/Clinic Noteon 46-14-1039Xkhzmd Medicine Office/Clinic NoteFamily Medicine Office/Clinic Note HPI [...] and her call the squad transferred to [facility] she did vomit a few times [...] Assessment/Plan 1. Cat bite of lower leg (S81.019A: Open bite, unspecified lower leg, initial encounter) [...] her called 911 and was taken to [facility]. was hydrated with IV fluids and [...] tendinitis, unspecified shoulder) pt was seen at [facility] ortho Dr. Keith to go over [...] refusal pneumococcal 23-valent v (more content not included)...[facility]aug[facility] Medical CenterComment on above:Result Comment: Electronically Signed By: Matt Allen\.br\Date and Time Signed: 09/17/24 11:46 [facility] ANAon 09-13-2024 KARLEE Pre No anaerobic growth after 48 hrs.[facility], Edwin ShawComment on above:Performed By: #### ANAC #### [address] [id number] [place]ound[place] 09-13-2024 Wound Final No growth at 48 hours.[facility], Edwin ShawComment on above: Performed By: #### WD #### [address] [address] Medicine Office/Clinic Noteon 98-94-8964Ypvczo Medicine Office/Clinic NoteFaelizabeth mason infirmary Medicine Office/Clinic Note HPI Staff Isaura is a 74 year old female presenting with a cat bite on right ankle Onset: History of Present Illness Pt was bit 1-2 days before presenting to me. Seen in [facility] who started the patient on Abx. Area [...] inactivated 05/17/2011 Recorded pneumococcal 23-valent vaccine 06/25/2008 RecordedUniversity Hospitals Geauga Medical CenterComment on above:Result Comment: Electronically Signed By: Anamaria Chinchilla MD\.br\Date and Time Signed: 09/11/24 12:15 ESTOR Trackon 15-32-4890Zxjujbxyq Received FromChildren's Hospital for RehabilitationComment on above:Performed By: #### Outreach Tracking Order #### [facility] [address] [place], [place] [address]Jhyrwhqstd Visit Summaryon 20-71-6014Zcxhtxobqx Visit Summary Ambulatory Visit Summary ISAURA AHYDEN :1950 Visit Date:09/10/2024 Ambulatory Visit Instructions Your [...] AM EDT With: Anamaria Chinchilla MD Where: [facility] [address]- 2024 11:00 AM EST With: Where: [address] [address]- Medications What How Much When Instructions Unchanged [...] you for choosing us for your care. [facility] Medical CenterAmbulatory Visit Summaryon 26-84-6618Wxeirthpnb Visit SummaryAmbulatory Visit Summary ISAURA HAYDEN :1950 [...] EDT With: Anamaria Chinchilla MD Where: [address] [id number]- 2024 11:00 AM EST With: Where: [address] [address]- Medications What How Much When Instructions Unchanged [...] you for choosing us for your care. [facility] Medicine Office/Clinic Noteon 62-70-2406Mqdbds Medicine Office/Clinic NoteFaelizabeth mason infirmary Medicine Office/Clinic Note Chief Complaint Pain HPI [...] ortho for this. Follow up PRN Ordered: [facility] External Ambulatory Referral 2. CKD stage 3a, GFR 45-59 ml/min (N18.31: Chronic kidney disease, stage 3a) Improved on last lab work. Follow up PRN Ordered: A1c POC [address] [facility] External Ambulatory Referral 3. BMI 29.0-29.9,adult (Z68.29: Body mass index [BMI] 29.0-29.9, adult) BMI education added Ordered: [facility] External Ambulatory Referral 4. Age-related osteoporosis without current pathological fracture (M81.0: Age- related osteoporosis without current pathological fracture) Reviewed Labs and Dexa. Prolia does not seem to be helping. Follows with Dr. Das. Ordered: [facility] External Ambulatory Referral Follow-up No qualifying data [...] A1c POC: 5.2 % (08/27/24 12:02:00)NormalMercy Health Clermont HospitalComment on above:Result Comment: Electronically Signed By: Amor SHORT, Anamaria Saldivar.br\Date and Time Signed: 08/27/24 12:03 ESTCBC w/ Auto Diffon 74-04-1094Tudupiydd/100 WBC (Bld)0.7 %Normal0.0-2.0Mer[facility] Clermont HospitalComment on above:Performed By: #### [id number] #### [facility] [address] [place], [place] [address]Kmlmoblhm/Leukocytes Auto (Bld) [Pure # fraction]0.1 E9/LNormal 0.0-0.2[facility]cy Medical CenterComment on above:Performed By: #### [id number] #### [facility] [address] [place], [place] [address]Wspwfiqjqae (Bld) [#/Vol]0.3 E9/LNormal0.0-0.5FSumma HealthComment on above:Performed By: #### [id number] #### [facility] [address] [place], [place] [address]Unwtzahbkel/100 WBC (Bld)3.2 %Normal0.0-8.0[facility] Clermont HospitalComment on above:Performed By: #### [id number] #### [facility] [address] [place], [place] [address]Sggjqisfxwd distribution width (RBC) [Ratio]13.7 %Normal 10.9-14.2FSumma HealthComment on above:Performed By: #### [id number] #### [facility] [address] [place] [address]Gtxoyzgiip (Bld) [Volume fraction]36.1 %Jsmqtp48.0-46.0Mer[facility] Clermont HospitalComment on above:Performed By: #### [id number] #### [facility] [address] [place] [address]Ulkucqkmgx (Bld) [Mass/Vol]12.3 g/qHWkofhj43.0-16.0[facility] Clermont HospitalComment on above:Performed By: #### [id number] #### [facility] [address] [place] [address]Hdtgchcupxk (Bld) [#/Vol]1.7 E9/LNormal1.0-4.0[facility] Clerm[facility] HospitalComment on above:Performed By: #### [id number] #### [facility] [address] [place], [place] [address]Etondvrubww/100 WBC (Bld)20.6 %Zdhvgn97.0-50.0[facility] Clermont HospitalComment on above:Performed By: #### [id number] #### [facility] [address] [place] [address]FLH (RBC) [Entitic mass]33.6 arLqnysc84.0-34.0[facility] Clermont HospitalComment on above:Performed By: #### [id number] #### [facility] [address] [place] [address]YOJX (RBC) [Mass/Vol]34.1 g/kQJhytaq47.4-36.0[facility] Clermont HospitalComment on above:Performed By: #### [id number] #### [facility] [address] [place] [address] 65[address]ROG (RBC) [Entitic vol]98.7 pJXaqzdd86.0-100.0[facility] Clermont HospitalComment on above:Performed By: #### [id number] #### [facility] [address] [place] [address]Mgmsznbxh (Bld) [#/Vol]0.6 E9/LNormal0.2-1.0[facility] Clermont HospitalComment on above:Performed By: #### [id number] #### [facility] [address] [place] [address]Pozyqfhdxpf (Bld) [#/Vol]5.8 E9/LNormal2.0-7.5FSumma HealthComment on above:Performed By: #### [id number] #### [facility] [address] [place] [address]Lmzbpvjwwyx/100 WBC (Bld)68.8 %Ddwlck20.0-75.0[facility] Clermont HospitalComment on above:Performed By: #### [id number] #### [facility] [address] [place] [address]Tmyrktgi331.0 E9/PJszcfy939.0-500.0[facility] Comment on above:Performed By: #### [id number] #### [facility] [address] [place] [address]Grmmnzyz mean volume (Bld) [Entitic vol]8.4 fLNormal6.4-10.8 [facility]erm[facility] HospitalComment on above:Performed By: #### [id number] #### [facility] [address] [place], [place] [address]AYJ (Bld) [#/Vol]3.7 E12/LLow4.3-5.9[facility] Comment on above:Performed By: #### [id number] #### [facility] [address] [place], [place] [address]VJV corrected for nucl RBC Auto (Bld) [#/Vol]8.5 E9/LNormal 4.0-11.0[facility] Clermont HospitalComment on above:Performed By: #### [id number] #### [facility] [address] [place], [place] [address]IQLLIMYUHIzbnoiq By: SYSTEM SYSTEM on - hydroxyvitamin D3 [Mass/Vol]36.9 ng/cDVvmcir16.0 - 100.0 ng/mLRemisol Chem Albumin [Mass/Vol]4.4 g/dLNormal3.3 - 5.0 gm/dLRemisol ChemAlbumin/Globulin [Mass ratio]1.6 {ratio}Normal1.1 - 2.2Remisol ChemALP [Catalytic activity/Vol]52 [iU]/aVnpuez47 - 98 Int._Unit/LRemisol ChemALT No additional P-5'-P [Catalytic activity/Vol]14 [iU]/dNormal6 - 46 Int._Unit/LRemisol ChemAnion gap [Moles/Vol] 11 mmol/LNormal6 - 16 mEq/LRemisol ChemAST [Catalytic activity/Vol]18 [iU]/d Normal5 - 43 Int._Unit/LRemisol ChemBilirubin [Mass/Vol]0.9 mg/dLNormal0.0 - 1.1 mg/dLRemisol ChemCalcium [Mass/Vol]8.9 mg/dLNormal8.9 - 11.1 mg/dLRemisol Chem Chloride [Moles/Vol]107 mmol/SLstqtb044 - 111 mmol/LRemisol ChemCholesterol [Mass/Vol]208 mg/mJMfka696 - 200 mg/dLRemisol ChemCholesterol in HDL [Mass/Vol] 64 mg/dLInvalid Interpretation CodeRemisol ChemComment on above:Result Comment: '>= 60 LOW RISK' '<= 40 HIGH RISK'Cholesterol in LDL [Mass/Vol]104 mg/dLNormal<=129mg/dLRemisol ChemCholesterol in VLDL [Mass/Vol]36 mg/dLNormal7 - 40 mg/dLRemisol ChemCO2 [Moles/Vol]27 mmol/RSwfqtx79 - 31 mmol/LRemisol ChemCobalamin (Vitamin B12) [Mass/Vol]253 pg/xGDcdhzv94 - 1500 pg/mLRemisol ChemCreatinine [Mass/Vol]1.1 mg/dLNormal0.5 - 1.3 mg/dLRemisol IayqaYEF24 mL/min/1.73 m2Low>=59mL/min/1.73 m2 Remisol ChemGlobulin (S) [Mass/Vol]2.8 g/dLNormal1.4 - 4.0 gm/dLRemisol Chem Glucose [Mass/Vol]105 mg/hAPimzts75 - 199 mg/dLRemisol ChemPotassium [Moles/Vol] 4.1 mmol/LNormal3.5 - 5.3 mmol/LRemisol ChemProtein [Mass/Vol]7.2 g/dLNormal6.0 - 7.8 gm/dLRemisol ChemSodium [Moles/Vol]141 mmol/RNxkskc792 - 145 mmol/LRemisol ChemTriglyceride [Mass/Vol]182 mg/dLHigh<=149mg/dLRemisol ChemTSH Qn2.85 m[IU]/LNormal0.34 - 5.60 mcIU/mLRemisol ChemUrea nitrogen [Mass/Vol]15 mg/dL Normal5 - 21 mg/dLRemisol ChemUrea nitrogen/Creatinine [Mass ratio]14 mg/mg Kagxnn63 - 20Remisol ChemCHEMISTRYOrdered By: Nato Cheung on 08-09-2024 Albumin DL <= 20 mg/L (U) [Mass/Vol]mg/dLNormal0.0 - 1.9 mg/dLRemisol Chem Albumin/Creatinine DL <= 20 mg/L (U) [Mass ratio]NOT CALCULATEDInvalid Interpretation Code0.0 - 30.0Remisol ChemComment on above:Interpretive Data: 30- 300 mg/g Cr indicates an increased risk for diabetic nephropathy. >300 mg/g Cr is consistent with clinical nephropathy.U Udbngbvtxh460.3 mg/dL Invalid Interpretation CodeRemisol ChemCMPon 01-29-4320Mzbsdza [Mass/Vol]4.4 g/dLNormal3.3-5.0[facility] Clerm[facility] HospitalComment on above:Performed By: #### [id number] #### [facility] [address] [place], [place] [address]Cflcsva/Globulin (S) [Mass conc ratio]1.0Oifocs8.1-2.2FSumma HealthComment on above:Performed By: #### [id number] #### [facility] [address] [place] [address] 19306DTI [Catalytic activity/Vol]52 Int._Unit/BDwoxzj83-57CfmkviMercy Health Clermont HospitalComment on above:Performed By: #### [id number] #### [facility] [address] [place], [place] [address]WIM No additional P-5'-P [Catalytic activity/Vol]14 Int._Unit/L Normal6-46[facility] Clermont HospitalComment on above:Performed By: #### [id number] #### [facility] [address] [place] [address]Czpfe gap [Moles/Vol]11 mmol/LNormal6-16[facility] Clerm[facility] HospitalComment on above:Performed By: #### [id number] #### [facility] [address] [place], [place] [address]BPD [Catalytic activity/Vol]18 Int._Unit/LNormal5-43[facility] Cl[facility] HospitalComment on above:Performed By: #### [id number] #### [facility] [address] [place] [address]Ttaryizdc [Mass/Vol]0.9 mg/dLNormal0.0-1.1FSumma HealthComment on above:Performed By: #### [id number] #### [facility] [address] [place], [place] [address]Osrqizt [Mass/Vol]8.9 mg/dLNormal8.9-11.1FSumma HealthComment on above:Performed By: #### [id number] #### [facility] [address] [place], [place] [address]Agdvywfg [Moles/Vol]107 mmol/LIndzni925-254QgshftMercy Health Clermont HospitalComment on above:Performed By: #### [id number] #### [facility] [address] [place], [place] [address]GJ8 [Moles/Vol]27 mmol/IQecqvf52-09UzwtwbMercy Health Clermont Hospital Comment on above:Performed By: #### [id number] #### [facility] [address] [place], [place] [address]Wzbupmvqxg [Mass/Vol]1.1 mg/dLNormal0.5-1.3FSumma HealthComment on above:Performed By: #### [id number] #### [facility] [address] [place], [place] [address]Jgacpgyp (S) [Mass/Vol]2.8 g/dLNormal1.4-4.0[facility] HospitalComment on above:Performed By: #### [id number] #### [facility] [address] [place], [place] [address]Rpgmexg [Mass/Vol]105 mg/nBJifwxl11-912GpaszqMercy Health Clermont HospitalComment on above:Performed By: #### [id number] #### [facility] [address] [place], [place] [address]Lvdeuvmoc [Moles/Vol]4.1 mmol/LNormal3.5-5.3FSumma HealthComment on above:Performed By: #### [id number] #### [facility] [address] [place], [place] [address]Fdsgtjs [Mass/Vol]7.2 g/dLNormal6.0-7.8[facility]erm[facility] HospitalComment on above:Performed By: #### [id number] #### [facility] [address] [place], [place] [address]Rkrjek [Moles/Vol]141 mmol/IOpyhvg915-884FeqpymMercy Health Clermont HospitalComment on above:Performed By: #### [id number] #### [facility] [address] [place], [place] [address]Epxr nitrogen [Mass/Vol]15 mg/dLNormal5-21[facility] Clermont HospitalComment on above:Performed By: #### [id number] #### [facility] [address] [place], [place] [address]Kdlu nitrogen/Creatinine [Mass ratio]14 No HerjaJmxxje36-37 [facility]erm[facility] HospitalComment on above:Performed By: #### [id number] #### [facility] [address] [place], [place] [address]DWDWYBOARIHkeiutu By: SYSTEM SYSTEM on 37-98-7666Zcjtgsnhc/100 WBC (Bld)0.7 %Normal0.0 - 2.0 %Remisol HemeBasophils/Leukocytes Auto (Bld) [Pure # fraction]0.1 E9/LNormal0.0 - 0.2 E9/LRemisol HemeEosinophils (Bld) [#/Vol]0.3 E9/LNormal0.0 - 0.5 E9/LRemisol HemeEosinophils/100 WBC (Bld)3.2 %Normal0.0 - 8.0 %Remisol HemeErythrocyte distribution width (RBC) [Ratio]13.7 %Fusitk00.9 - 14.2 %Remisol HemeHematocrit (Bld) [Volume fraction]36.1 %Zuqiax77.0 - 46.0 % Remisol HemeHemoglobin (Bld) [Mass/Vol]12.3 g/yFSwgugn34.0 - 16.0 gm/dLRemisol HemeLymphocytes (Bld) [#/Vol]1.7 E9/LNormal1.0 - 4.0 E9/LRemisol Heme Lymphocytes/100 WBC (Bld)20.6 %Tttmxl04.0 - 50.0 %Remisol HemeMCH (RBC) [Entitic mass]33.6 qpOwyknc89.0 - 34.0 pgRemisol HemeMCHC (RBC) [Mass/Vol]34.1 g/dL Lqlevs89.4 - 36.0 gm/dLRemisol HemeMCV (RBC) [Entitic vol]98.7 aILvyzcv58.0 - 100.0 fLRemisol HemeMonocytes (Bld) [#/Vol]0.6 E9/LNormal0.2 - 1.0 E9/LRemisol HemeMonocytes/100 WBC (Bld)6.7 %Normal4.0 - 14.0 %Remisol HemeNeutrophils (Bld) [#/Vol]5.8 E9/LNormal2.0 - 7.5 E9/LRemisol HemeNeutrophils/100 WBC (Bld)68.8 % Mlyvfi60.0 - 75.0 %Remisol EufxRgmjcuxs900.0 E9/EXrcpsc926.0 - 500.0 E9/LRemisol HemePlatelet mean volume (Bld) [Entitic vol]8.4 fLNormal6.4 - 10.8 fLRemisol HemeRBC (Bld) [#/Vol]3.7 E12/LLow4.3 - 5.9 E12/LRemisol HemeWBC corrected for nucl RBC Auto (Bld) [#/Vol]8.5 E9/LNormal4.0 - 11.0 E9/LRemisol HemeLipid Panel on 37-42-9045Ttnwvcpchto [Mass/Vol]208 mg/wDMtdo438-501WawbikMercy Health Clermont HospitalComment on above:Performed By: #### [id number] #### [facility] [address] [place], [place] [address]Dzrxqfoqepk in HDL [Mass/Vol]64 mg/dLInvalid Interpretation CodeMercy Health Clermont HospitalComment on above:Result Comment: '>= 60 LOW RISK' '<= 40 HIGH RISK'Performed By: #### [id number] #### [facility] [address] [place], [place] [address]Dyqtqrwuuyx in LDL [Mass/Vol]104 mg/dLNormal<=129[facility] Clerm[facility] HospitalComment on above:Performed By: #### [id number] #### [facility] [address] [place], [place] [address]Kegovnphwcl in VLDL [Mass/Vol]36 mg/dLNormal7-40[facility] HospitalComment on above:Performed By: #### [id number] #### [facility] [address] [place], [place] [address]Sofypsckeaaj [Mass/Vol]182 mg/dLHigh<=149[facility] Clermont HospitalComment on above:Performed By: #### [id number] #### [facility] [address] [place], [place] [address]CNM With T4fr Reflexon 90-05-9730HMA Qn2.85 m[IU]/LNormal 0.34-5.60[facility] HospitalComment on above:Performed By: #### [id number] #### [facility] [address] [place], [place] [address]W MA/Cr Ratioon 55-13-6422Dpegsel DL <= 20 mg/L (U) [Mass/Vol] mg/dLNormal0.0-1.9[facility] HospitalComment on above:Performed By: #### [id number] #### [facility] [address] [place], [place] [address]Arjulwh/Creatinine DL <= 20 mg/L (U) [Mass ratio]NOT CALCULATED Invalid Interpretation Code.0-30.0[facility]erm[facility] HospitalComment on above: Result Comment: 30-300 mg/g Cr indicates an increased risk for diabetic nephropathy. >300 mg/g Cr is consistent with clinical nephropathy.Performed By: #### [id number] #### [facility] [address] [place], [place] [address]T Xpopafldfy718.3 mg/dLInvalid Interpretation CodeMercy Health Clermont HospitalComment on above:Performed By: #### [id number] #### [facility] [address] [place], [place] [address]Cgw B12on 33-67-0759Dmqxnefcm (Vitamin B12) [Mass/Vol]253 pg/mL Frfrue61-0813GvutxgMercy Health Clermont HospitalComment on above:Performed By: #### [id number] #### [facility] [address] [place], [place] [address]Nhbiqth D 25 Hydroxyon 56-19-300100873255-ddwwisstplwwpv D3 [Mass/Vol]36.9 ng/uEVypkvg42.0-100.0[facility]erm[facility] HospitalComment on above: Performed By: #### [id number] #### [facility] [address] [place], [place] [address]rVOKjr 07-59-1540hMQQ24 mL/min/1.73 m2Low>=59[facility] Clermont HospitalComment on above:Performed By: #### [id number] #### [facility] [address] [place], [place] [address]Prpaxnsjih Visit Summaryon 27-68-8985Cnyosotxzp Visit Summary Ambulatory Visit Summary ISAURA HAYDEN [...] 2023 8:40 AM EST With: Where: [address] [address]- Tuesday 8:45 AM EDT With: Amor SHORT, Anamaria Harvey Where: [address] [address]- 2024 11:00 AM EST With: Where: [address] [address]- You Need to Complete the Following CBC [...] pain, right Hypercholesterolemia Hyperlipidemia (more content not included)...[facility] Family Medicine Office/Clinic Noteon 97-26-5271Kaeimg Medicine Office/Clinic NoteFaelizabeth [facility] Office/Clinic Note Chief Complaint Subsequent Medicare [...] : Living will, Medical durable power of assistant attorney general Location of Advance Directive : Family to [...] Randall Martha Chaidez - (more content not included)...[facility] CenterComment on above:Result Comment: Electronically Signed By: Anamaria Chinchilla MD\.br\Date and Time Signed: 08/07/24 10:44 EST\.br\Electronically Co-Signed By: Martha Pereira\.br\Date and Time Co-Signed: 07/30/24 12:56 ESTAmbulatory Visit Summaryon 88-50-3738Gwzfwejnkl Visit SummaryAmbulatory Visit Summary ISAURA HAYDEN :1950 [...] Appointments 2023 8:40 AM EST With: Where: [facility] [address] [address]- Tuesday 8:45 AM EDT With: Amor SHORT, Anamaria Harvey Where: [address] [address]- 2024 11:00 AM EST With: Where: [address] [address]- You Need to Complete the Following CBC [...] Chronic cough Duration: 7 Days Pickup at [facility] [id number] Unchanged amlodipine (amLODIPine 5 mg Tab) See [...] a (more content not included)...Normal [facility] HospitalAmbulatory Visit SummaryAmbulatory Visit Summary ISAURA HAYDEN [...] 2023 8:40 AM EST With: Where: [address] [address]- Tuesday 8:45 AM EDT With: Amor SHORT, Anamaria Harvey Where: [address] [id number]- 2024 11:00 AM EST With: Where: [address] [address]- You Need to Complete the [...] Chronic cough Duration: 7 Days Pickup at [facility] [id number] Unchanged amlodipine (amLODIPine 5 mg Tab) See [...] polyunsaturated fatty a (more content not included)...Normal [facility] Medicine Office/Clinic Noteon 21-61-8693Vsldfp Medicine Office/Clinic NoteFaelizabeth [facility]irm[facility] Medicine Office/Clinic Note Chief Complaint The patient [...] humorously by the physician as looking like Albanian cheese on X-rays. She uses a bone [...] day(s), # 21 cap(s), Refills(s) 0, Pharmacy: [facility] [id number], 162, cm, 07/30/24 10:07:00 EST, Height/Length Dosing, 75.8, kg, 07/30/24 10:07:00EST, Weight Dosing CBC w/ Auto Diff TSH With T4fr Reflex Vitamin B12 Level Vitamin D 25 Hydroxy 2. Hypercholesterolemia (E78.00: Pure hypercholesterolemia, unspecified) As below. Ordered: benzonatate, 200 mg = 1 cap(s), Oral, TID, X 7 day(s), # 21 cap(s), Refills(s) 0, Pharmacy: [facility] [id number], 162, cm, 07/30/24 10:07:00 EST, Height/Length Dosing, 75.8, kg, 07/30/24 10:07:00EST, Weight Dosing CBC w/ Auto Diff TSH With T4fr Reflex Vitamin B12 Level Vitamin D 25 Hydroxy 3. Hyperlipidemia (E78.5: Hyperlipidemia, unspecified) Continue on a statin as before. Ordered: benzonatate, 200 mg = 1 cap(s), Oral, TID, X 7 day(s), # 21 cap(s), Refills(s) 0, Pharmacy: [facility] [id number], 162, cm, 07/30/24 10:07:00 EST, Height/Length Dosing, [...] day(s), # 21 cap(s), Refills(s) 0, Pharmacy: [facility] [id number], 162, cm, 07/30/24 10:07:00 EST, Height/Length Dosing, 75.8, kg, 07/30/24 10:07:00EST, Weight Dosing CBC w/ Auto Diff Comprehensive Metab (more content not included)...NormalFisher Cambria Medical CenterComment on above:Result Comment: Electronically Signed [...] feel free to contact me at extension [phone]. Thank you! Daly Joy, ALEXN, RN, CCM, CCDS, CCDS-O CDI Office Machine Mechanic [address] [address] P: [phone] F: [phone] [email or web address] From: Anamaria Chinchilla MD To: Benita MENJIVAR, Daly; Sent: 07/30/2024 15:17:44 EST Subject: RE: Pre-Visit Planning Caller Name: ISAURA HAYDEN; Caller Number: Adrian , Farzana I could not address this today. ThanksK[facility] Medicine Office/Clinic Noteon 80-38-2187Plhpwv Medicine Office/Clinic NoteMarlborough Hospital Medicine Office/Clinic Note HPI Staff Isaura [...] in 3-5 days Ordered: Rapid Strep POC 42842 Follow-up No qualifying data available Patient Education Pharyngitis, Pwky-ax-Xtkl Problem List/Past Medical History Ongoing Age-related osteoporosis [...] Results Rapid Strep POC Result: Negative (07/13/24 11:52:00)[facility] CenterComment on above:Result Comment: Electronically Signed By: GISELLA MORAN, VIPUL Rosario\.br\Date and Time Signed: 07/13/24 11:55 [facility] Urineon 05-09-2024 Bacteria identified Cx Nom [...] Locations R1: This test was performed at: [facility], [address] [place] [address], [address]- , , SnpfqtTdoncqUniversity Hospitals Geauga Medical CenterComment on above:Performed By: #### [id number] #### [facility] [address] [place] [address]Jjitifqpoo Visit Summaryon 36-35-2292Dabwgvvkjt Visit Summary Ambulatory Visit Summary ISAURA HAYDEN [...] EST With: Anamaria Chinchilla MD Where: [address] [address]- Tuesday 11:00 AM EST With: Where: [address] [address]- Medications What How Much When Instructions Unchanged [...] you for choosing us for your care. [facility] Medicine Office/Clinic Notejustin 02-01-7627Gzjcco Medicine Office/Clinic NoteMarlborough Hospital Medicine Office/Clinic Note HPI Staff Isaura [...] day(s), # 14 cap(s), Refills(s) 0, Pharmacy: [facility] [id number], 162, cm, 05/07/24 14:07:00 EDT, Height/Length Dosing, 76, kg, 05/07/24 14:07:00 EDT, Weight Dosing Body Mass Index (BMI) documented 3008F Current tobacco non-user 1036F Depression Screening Negative 3352F E&M of Est. Patient Low 20-29 Min 69210 Influenza immunization status assessed 1030F Medication list [...] Urnls Dip Stick Auto w/o Microscopy POC 88654 2. Non-smoker (Z78.9: Other specified health status) - Please continue to not smoke Ordered: doxycycline, 100 mg = 1 cap(s), Oral, BID, X 7 day(s), # 14 cap(s), Refills(s) 0, Pharmacy: [facility] [id number], 162, cm, 05/07/24 14:07:00 EDT, Height/Length Dosing, 76, kg, 05/07/24 14:07:00 EDT, Weight Dosing Body Mass Index (BMI) documented 3008F Current tobacco non-user 1036F Depression Screening Negative 3352F E&M of Est. Patient Low 20-29 Min 23255 Influenza immunization status assessed 1030F Medication list [...] day(s), # 14 cap(s), Refills(s) 0, Pharmacy: [facility] [id number], 162, cm, 05/07/24 14:07:00 EDT, Height/Length Dosing, 76, kg, 05/07/24 14:07:00 EDT, Weight Dosing Body Mass Index (BMI) documented 3008F Current tobacco non-user 1036F Depression Screening Negative 3352F E&M of Est. Patient Low 20-29 Min 28008 Influenza immunization status assessed 1030F Medication list [...] day(s), # 14 cap(s), Refills(s) 0, Pharmacy: [facility] [id number], 162, cm, 05/07/24 14:07:00 EDT, Height/Length Dosing, 76, kg, 05/07/24 14:07:00 EDT, Weight Dosing Body Mass Index (BMI) documented 3008F Current tobacco non-user 1036F Depression Screening Negative 3352F E&M of Est. Patient Low 20-29 Min 74942 Influenza immunization status assessed 1030F Medication list [...] 3a (more content not included)...Normal [facility]ont HospitalComment on above:Result Comment: Electronically Signed By: Amor SHORT, Anamaria Saldivar.br\Date and Time Signed: 05/07/24 14:35 EDTDexa Scanson 78-49-8016Srlg [id number]#1.00TIFF [facility] Medical CenterConsultation Noteon 86-63-6889Sazolcfpaqux Note [id number]#1.00TIFFNotanishaFormerly Morehead Memorial Hospitaler [facility] MISWatauga Medical Center 20-17-9732PZN - MISC [id number]#1.00TIFOur Lady of Mercy Hospital - AndersonRAD [id number]#1.00TIFOur Lady of Mercy Hospital - AndersonConsultation Noteon 21-20-1915Fmcnlxgdiggl Note [id number]#1.00TIFOur Lady of Mercy Hospital - AndersonConsultation Noteon 40-89-9199Zpwrnbsdjzic Note [id number]#1.00TIFDiley Ridge Medical Center 11-98-7413[facility] [id number]#1.00TIFShelby Memorial Hospital [id number]#1.00TIFOur Lady of Mercy Hospital - AndersonConsultation Noteon 96-78-1446Uhvhhjjkqipa Note [id number]#1.00TIFOur Lady of Mercy Hospital - AndersonConsultation Noteon 98-82-8275Wyayjnjuhszu Note [id number]#1.00TIFOur Lady of Mercy Hospital - AndersonDischarge Documentationon 98-46-2553Pbdkikaph Documentation [id number]#1.00TIFOur Lady of Mercy Hospital - AndersonCytologyon 48-15-8098KppmygpnBvkareYofPhcvbp Toledo HospitalComment on above:Result Comment: [employer] [facility] [facility] [address] [place] [address] Cytology Consultation Patient Name:ISAURA HAYDEN:1950 (Age: 73)Gender:FTaken:11/14/2023eported:414:25Physician(s):Nabil Lord M.D. ([phone])Copy To: Rec. #:[id number]: #[id number] Final Cytologic Diagnosis Pelvic washings: No malignant cells identified. nsk/11/16/2023 Interpretation performed at [facility], [address] [place] [address], License number: [id number].Electronically Signed Out By Edie Day MD Clinical History Thickened endometrium/ post menopausal bleeding/ cervical stenosis. Gross Description Received was 35mL of clear colorless fluid unfixed labeled as Catracho, pelvic washings . CytoLyt added in lab. Unable to obtain cellblock, ThinPrep made. Source of Specimen Pelvic washings Non CREPE SOLE SCOURER ThinPrep Fee Code(s): 1; 64787, 47538Amnqxmce Pathologyon 37-40-4446Caskuyiv PathologyNormalProMedica Licking Memorial HospitalComment on above:Result Comment: [facility] [address] [place] [address] Surgical Pathology Consultation Patient Name:ISAURA HAYDEN:1950 (Age: 73)Gender:FTaken:11/14/2023eported:11/16/2023hysician(s):Nabil Lord M.D. ([phone])Copy To: Rec. #:[id number]: #[id number] Final Pathologic Diagnosis Uterus, cervix, bilateral fallopian tubes, bilateral ovaries, TAHBSO: Cervix with no significant histopathologic abnormality Endometrium with cystic atrophy Myometrium with adenomyosis Bilateral adnexa with no significant histopathologic abnormality Report Electronically Signed Out nsk/27/2024Edie Day MD Interpretation performed at [facility], [address] [place] [address], License number: [id number]. Clinical History Thickened endometrium, postmenopausal bleeding, cervical [...] ovary L-N Remainder of endometrium (14, ss, T97-17222, A- K, m6) MONICO/MD kilgore/11/14/2023GR Specimen(s) Received Uterus, cervix, bilateral fallopian tubes, bilateral ovaries Fee Codes(s): 1; 96945Zmuufnwlwwlg Noteon 96-35-3404Ruceuwxgiwdu Note [id number]#1.00TIFFNoalMercy Health Clermont HospitalCBC AND AUTO DIFFon 02-52-7385FOLPSNWU BASOPHIL0.1 X10E9/LNormal0.0-0.2 CentervilleComment on above:Performed By: #### CBCA, CMP #### [facility] ([id number]) [address] [place] [address], [address] [place], [place] [address]ABQJQYMN NEUTROPHIL3.1 X10E9/LNormal1.5-6.6CentervilleComment on above:Performed By: #### CBCA, CMP #### [facility] ([id number]) [address] [place] [address], [address] [place], [place] [address]Zqoluyhge/100 WBC (Bld)0.9 %NormalProBaylor Scott & White Medical Center – Irving Comment on above:Performed By: #### CBCA, CMP #### [facility] ([id number]) [address] [place] [address], [address] [place], [place] [address]Pnfdkgegqgs (Bld) [#/Vol]0.2 10*3/uLNormal0.0-0.4CentervilleComment on above:Performed By: #### CBCA, CMP #### [facility] ([id number]) [address], [address] [place], [place] [address]Yqiqgvxplih/100 WBC (Bld)4.3 %NormalCenterville Comment on above:Performed By: #### CBCA, CMP #### [facility] ([id number]) [address], [address] [place], [place] [address]Nntktkcphag distribution width (RBC) [Ratio]13.1 %Normal 11.5-15.0CentervilleComment on above:Performed By: #### CBCA, CMP #### [facility] ([id number]) [address], [address] [place], [place] [address]Rpocgziycy (Bld) [Volume fraction]35.6 %Vgropo32-35OqfAjnpqwBaylor Scott & White Medical Center – IrvingComment on above:Performed By: #### CBCA, CMP #### [facility] ([id number]) [address], [address] [place], [place] [address]Bkdbdpdcrg (Bld) [Mass/Vol]12.4 g/dRXecpuc76.7-15.5PBlanchard Valley Health System Bluffton HospitalComment on above:Performed By: #### CBCA, CMP #### [facility] ([id number]) [address], [address] [place], [place] [address]Svoplncxehu (Bld) [#/Vol]1.7 10*3/uLNormal1.0-3.5PBlanchard Valley Health System Bluffton HospitalComment on above:Performed By: #### CBCA, CMP #### [facility] ([id number]) [address], [address] [place], [place] [address]Qnuicmjqcsz/100 WBC (Bld)31.2 %NormalCenterville Comment on above:Performed By: #### CBCA, CMP #### [facility] ([id number]) [address], [address] [place], [place] [address]XGK (RBC) [Entitic mass]33.3 mzAkjgig43-44QmnYrzohuCentervilleComment on above:Performed By: #### CBCA, CMP #### [facility] ([id number]) [address], [address] [place], [place] [address]RWCN (RBC) [Mass/Vol]34.7 g/vRQrtjhz69-30AobZutryoBaylor Scott & White Medical Center – IrvingComment on above:Performed By: #### CBCA, CMP #### [facility] ([id number]) [address], [address] [place], [place] [address]WCD (RBC) [Entitic vol]96 bPNascvw42-597XdlResociCentervilleComment on above:Performed By: #### CBCA, CMP #### [facility] ([id number]) [address], [address] [place], [place] [address]Vlqvpzcof (Bld) [#/Vol]0.5 10*3/uLNormal0-0.9CentervilleComment on above:Performed By: #### CBCA, CMP #### [facility] ([id number]) [address], [address] [place], [place] [address]Vvsrbclxa/100 WBC (Bld)8.2 %[facility] Comment on above:Performed By: #### CBCA, CMP #### [facility] ([id number]) [address], [address] [place], [place] [address]Tjmwzytcyau/100 WBC (Bld)55.4 %[facility] Comment on above:Performed By: #### CBCA, CMP #### [facility] ([id number]) [address], [address] [place], [place] [address]Kzxkjjal mean volume (Bld) [Entitic vol]8.2 fLNormal7-12 CentervilleComment on above:Performed By: #### CBCA, CMP #### [facility] ([id number]) [address], [address] [place], [place] [address]Vcrawadtn (Bld) [#/Vol]284 10*3/eUBirdpm504-758OidNfvbjn Fremont HospitalComment on above:Performed By: #### CBCA, CMP #### [facility] ([id number]) [address], [address] [place], [place] [address]HCS COUNT3.72 X10E12/LLow3.80-5.20[facility] on above:Performed By: #### CBCMarlene, CMP #### [facility] ([id number]) [address] [facility] [address] [place], [place] [address]DTF (Bld) [#/Vol]5.6 10*3/uLNormal4.0-11.0ProBaylor Scott & White Medical Center – IrvingComment on above:Performed By: #### CBCMarlene, CMP #### [facility] ([id number]) [address], [address] [place], [place] [address]DBZYSYECTQERD METABOLIC PANELon 39-72-4489Csjbnwc [Mass/Vol]4.5 g/dLNormal3.2-5.3PBlanchard Valley Health System Bluffton HospitalComment on above:Performed By: #### CBCMarlene, CMP #### [facility] ([id number]) [address], [address] [place], [place] [address]DAZ [Catalytic activity/Vol]48 U/PSbwgkb33-021FolSviwasBaylor Scott & White Medical Center – IrvingComment on above:Performed By: #### CBCA, CMP #### [facility] ([id number]) [address], [address] [place], [place] [address]NPC [Catalytic activity/Vol]14 U/LNormal0-31PBlanchard Valley Health System Bluffton HospitalComment on above:Performed By: #### CBCA, CMP #### [facility] ([id number]) [address], [address] [place], [place] [address]Nokel gap [Moles/Vol]9 mmol/LNormal5-15ProBaylor Scott & White Medical Center – IrvingComment on above:Performed By: #### CBCMarlene, CMP #### [facility] ([id number]) [address], [address] [place], [place] [address]XEP [Catalytic activity/Vol]20 U/LNormal0-41ProBaylor Scott & White Medical Center – IrvingComment on above:Performed By: #### CBCMarlene, CMP #### [facility] ([id number]) [address], [address] [place], [place] [address]Efqaercys [Mass/Vol]0.5 mg/dLNormal0.3-1.2PBlanchard Valley Health System Bluffton HospitalComment on above:Performed By: #### CBCMarlene, CMP #### [facility] ([id number]) [address], [address] [place], [place] [address]Jhcjajw [Mass/Vol]9.2 mg/dLNormal8.5-10.5PBlanchard Valley Health System Bluffton HospitalComment on above:Performed By: #### CBCMarlene, CMP #### [facility] ([id number]) [address], [address] [place], [place] [address]Clnegeuw [Moles/Vol]106 mmol/XZcaglg45-503BsuNcmldyBaylor Scott & White Medical Center – IrvingComment on above:Performed By: #### CBCA, CMP #### [facility] ([id number]) [address], [address] [place], [place] [address]JN2 [Moles/Vol]28 mmol/EHtxloo11-42BvtXpxgnpBlanchard Valley Health System [facility]uffton Hospital Comment on above:Performed By: #### CBCA, CMP #### [facility] ([id number]) [address], [address] [place], [place] [address]Lotlexyjmy [Mass/Vol]1.17 mg/dLHigh0.40-1.00CentervilleComment on above:Result Comment: METHOD TRACEABLE TO IDMS STANDARD Performed By: #### PAT, CMP #### [facility] ([id number]) [address], [address] [place], [place] [address]ZTL/1.73 sq M.predicted among non-blacks MDRD (S/P/Bld) [Vol rate/Area]50 mL/min/{1.73_m2}Low>59ProBaylor Scott & White Medical Center – IrvingComment on above: Result Comment: Reported eGFR is based on the CKD-EPI 1 equation that does not use a race coefficient.Performed By: #### PAT, CMP #### [facility] ([id number]) [address], [address] [place], [place] [address]Qzuceyz [Mass/Vol]110 mg/lPTftg24-09PolIqofuaBaylor Scott & White Medical Center – Irving Comment on above:Performed By: #### PAT, CMP #### [facility] ([id number]) [address], [address] [place], [place] [address]Ybjrsidyq [Moles/Vol]4.1 mmol/LNormal3.5-5.0CentervilleComment on above:Performed By: #### PAT, CMP #### [facility] ([id number]) [address] [address] [place], [place] [address]Bdjbqps [Mass/Vol]7.2 g/dLNormal6.0-8.0ProBaylor Scott & White Medical Center – IrvingComment on above:Performed By: #### CBCMarlene, CMP #### [facility] ([id number]) [address], [address] [place], [place] [address]Jcfqps [Moles/Vol]143 mmol/BUepiym897-176ItjJgkrfv Fremont HospitalComment on above:Performed By: #### CBCA, CMP #### [facility] ([id number]) [address], [address] [place], [place] [address]Xmrx nitrogen [Mass/Vol]18 mg/dLNormal5-27CentervilleComment on above:Performed By: #### CBCA, CMP #### [facility] ([id number]) [address] [facility], [address] [place], [place] [address]HP CHEST 2 VWSon 85-30-4774DR CHEST 2 VWSXR CHEST 2 VWS History: Preop testing Exam/Technique: PA and lateral chest Comparison: None Findings: There is no evidence of active pulmonary or pleural disease. Cardiac and mediastinal contours are within normal limits. IMPRESSION: No evidence of active pulmonary disease demonstrated. Finalized by Lewis Lyn MD on 11/09/2023 10:52 AMNormalCentervilleConsultation Noteon 19-48-4805Utouqalterqd Note [id number]#1.00TIFFUniversity Hospitals Geauga Medical CenterUS PELVIS W/ TRANSVAGINALon 61-89-5157[place]wnR[place], [place] [address] Ultrasound Report Signed Patient: ISAURA HAYDEN MR#: [id number] : 1950 Acct:[id number] Age/Sex: 73 / F ADM Date: 10/17/23 Loc: US Attending Dr: Diane Winslow Ordering Physician: Diane Winslow Date of Service: 10/17/23 Procedure(s): US pelvis w/ transvaginal Accession Number(s): [id number] cc: Diane Winslow; ANAMARIA CHINCHILLA [place] [id number] Patient Name: ISAURA HAYDEN MRN: [id number] date: 1950 Sex: F Assigned Patient Location: US Current Patient Location: [facility] Accession/Order Number: [id number] Exam Date: 10/17/2023 08:55 Report Date: 10/17/2023 [...] Signed By: 10/17/23 1012 DD/ 1010 TD/TT: Industrial Electrician Journeyman:TBHRadiology, Radiologist, - 10/17/2023 [place] [address] Ultrasound Report Signed Patient: ISAURA HAYDEN MR#: [id number] : 1950 Acct:[id number] Age/Sex: 73 / F ADM Date: 10/17/23 Loc: US Attending Dr: Diane Winslow Ordering Physician: Diane Winslow Date of Service: 10/17/23 Procedure(s): US pelvis w/ transvaginal Accession Number(s): [id number] cc: Diane Winslow; ANAMARIA CHINCHILLA The [address] [address] Patient Name: ISAURA HAYDEN MRN: [id number] date: 1950 Sex: F Assigned Patient Location: US Current Patient Location: INF Accession/Order Number: [id number] Exam Date: 10/17/2023 08:55 Report Date: 10/17/2023 [...] Signed By: 10/17/23 1012 DD/ 1010 TD/TT: Industrial Electrician Journeyman: RAYSA [employer] (Management & Data Services)Radiology Study observation (narrative)[employer]OM [employer] PELVIS W/ TRANSVAGINALOrdered By: Radiologist Radiology on 95-65-5511[facility] Work Phone: consultation Noteon 01-43-9590Ayctwhzzberq Note [id number]#1.00TIFOur Lady of Mercy Hospital - AndersonRAD - MISCon 46-03-8735LUE - MISC [id number]#1.00TIFOur Lady of Mercy Hospital - AndersonConsultation Noteon 54-37-0323Cubtealiuast Note [id number]#1.00TIFOur Lady of Mercy Hospital - AndersonConsultation Noteon 69-98-7732Dltidnbodhfp Note [id number]#1.00[facility] Parma Medical CenterDexa Scanson 69-71-8301Kudl Scans [id number]#1.00[facility] Medical CenterConsultation Noteon 83-60-0192Auwryrkonjun Note [id number]#1.00[facility] Medical CenterPatient Logson 17-03-6303Ykewfzi Logs [id number]#1.00TIFFNormalMercy Health Clermont HospitalAmbulatory Visit Summaryon 27-91-0514Rpltlvgfpm Visit Summary ISAURA HAYDEN :1950 Visit Date:09/01/2023 Ambulatory Visit Instructions Your Diagnosis Hypertension Chronic kidney disease, stage 3a Your Care Team Attending Physician - VPIUL OBANDO CNP Primary Care Physician - Anamaria [...] AM EST With: Anamaria Chinchilla MD Where: [facility] [place] [id number]- \.br\ Medications\.br\ What How Much When Instructions\.br\ [...] for choosing us for your care.\.br\ \.br\[facility] Consultation Noteon 47-18-2092Zgogpkcictbp Note [id number]#1.00TIFFNormalAtrium Health Pinevilleyazmin [facility] Medicine Office/Clinic Noteon 02-55-9385Florqf Medicine Office/Clinic NoteChief Complaint high blood pressure [...] 96.3 fL (05/11/23) Chloride: 108 mmol/L (05/11/23) [place] Absolute: 0.4 E9/L (05/11/23) CO2: 27 mmol/L (05/11/23) [place] Auto: 7.8 % (05/11/23) Creatinine: 1.3 mg/dL [...] Medical History Ongoing Ag (more content not included)...[facility] Geauga Medical CenterComment on above:Result Comment: Electronically Signed By: VIPUL OBANDO CNP\.kelly\Date and Time Signed: 09/01/23 13:24 ESTPatient Educationon 72-94-7680Aqobbdl EducationNutrition DASH Eating Plan DASH stands for [...] condiments Herbs. Spices. Seasoni (more content not included)...[facility]auga Medical CenterConsultation Noteon 74-67-6863Menkztlznuon Note [id number]#1.00TIFOur Lady of Mercy Hospital - AndersonRAD - CT Reporton 02-58-7261DKO - CT Report [id number]#1.00[facility] Medical CenterOperative Reporton 35-90-9571Ebbcdmxhw Report [id number]#1.00[facility] Medical CenterPatient Correspondenceon 71-80-0255Fzmtobl Correspondence [id number]#1.00[facility] Medical CenterProvider Letteron 16-85-1648Scohiweq Letter [address] [place] [address] August 12, 2023 ISAURA HAYDEN [address] [id number] : [address] Das, The above patient has been evaluated at your request for preoperative clearance. After assessment of available pertinent labs and diagnostic tests, I feel this patient is medicallyoptimized for surgery. Final discretion of whether the patient is cleared for surgery remains up tothe surgeon/anesthesiologist. Thank you, DOTTY Vásquez-MILANSt. Elizabeth HospitalAmbulatory Visit Summaryon 50-92-7218Jjxqehgofd Visit Summary CATRACHO ISAURA L :1950 Visit [...] AM EST With: Anamaria Chinchilla MD Where: [facility] [place] [phone]- \.br\ Medications\.br\ What How Much When Instructions\.br\ [...] you for choosing us for your care.\.br\ \.br\[facility] Medicine Office/Clinic Notejustin 60-54-0779Vpsdgw Medicine Office/Clinic NoteCEDAR [facility] Staff Isaura is a 73 year [...] inactivated 05/17/2011 Recorded pneumococcal 23-valent vaccine 06/25/2008 RecordedNoSelect Medical Specialty Hospital - Boardman, IncComment on above:Result Comment: Electronically Signed By: Amor SHORT, Anamaria Saldivar.br\Date and Time Signed: 08/11/23 12:57 EITAN 12-LEADon 73-70-4291[place], [place] [address] Electrocardiograph Report Signed Patient: ISAURA HAYDEN MR#: [id number] : 1950 Acct:[id number] Age/Sex: 73 / F ADM Date: 08/05/23 Loc: PST Attending Dr: Bentley Das D.O. Ordering Physician: Bentley Das D.O. 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 Signed By: 08/07/23 1647 DD/ 0940 TD/TT: Industrial Electrician Journeyman:TBHRadiology, Radiologist, MD - 08/07/2023 [place] [address] Electrocardiograph Report Signed Patient: ISAURA HAYDEN MR#: [id number] : 1950 Acct:[id number] Age/Sex: 73 / F ADM Date: 08/05/23 Loc: PST Attending Dr: Bentley Das D.O. Ordering Physician: Bentley Das D.O. 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 Signed By: 08/07/23 1647 DD/ 0940 TD/TT: Industrial Electrician Journeyman: [facility]'S HOSPITALAOMiECG 12-LEADOrdered By: Radiologist Radiology on 18-08-7514DNLA Mandata (Management & Data Services) Work Phone: ECF 12-LEADon 59-33-3780Wfpburkwt Study observation (narrative)[facility] HealthcareCHEMISTRYOrdered By: SYSTEM SYSTEM on 05-11-2023 Albumin [Mass/Vol]4.3 g/dLNormal3.3 - 5.0 gm/dLFTMC RemisolAlbumin/Globulin [Mass ratio]1.3 {ratio}Normal1.1 - 2.2FTMC RemisolALP [Catalytic activity/Vol]46 [iU]/gBgnojd03 - 98 Int._Unit/LFTMC RemisolALT No additional P-5'-P [Catalytic activity/Vol]16 [iU]/dNormal6 - 46 Int._Unit/LFTMC RemisolAmylase [Catalytic activity/Vol]74 U/PMlvmnx47 - 157 unit/LFTMC RemisolAnion gap [Moles/Vol]10 mmol/LNormal6 - 16 mEq/LFTMC RemisolAST [Catalytic activity/Vol]23 [iU]/dNormal5 - 43 Int._Unit/LFTMC RemisolBilirubin [Mass/Vol]0.6 mg/dLNormal0.0 - 1.1 mg/dL [facility] RemisolCalcium [Mass/Vol]9.5 mg/dLNormal8.9 - 11.1 mg/dLFTMC Remisol Chloride [Moles/Vol]108 mmol/VSxecer540 - 111 mmol/LFTMC RemisolCO2 [Moles/Vol] 27 mmol/YWgvqdq54 - 31 mmol/LFTMC RemisolCreatinine [Mass/Vol]1.3 mg/dLNormal0.5 - 1.3 mg/dLFTMC RemisolGFR/1.73 sq M.predicted among non-blacks MDRD (S/P/Bld) [Vol rate/Area]44 mL/min/1.73 m2Low>=59mL/min/1.73 m2FTMC Chem SGlobulin (S) [Mass/Vol]3.2 g/dLNormal1.4 - 4.0 gm/dLFTMC RemisolGlucose [Mass/Vol]93 mg/dL Krbjbp82 - 199 mg/dLFTMC RemisolLipase [Catalytic activity/Vol]46 U/VXpdvhw28 - 58 unit/LFTMC RemisolPotassium [Moles/Vol]4.3 mmol/LNormal3.5 - 5.3 mmol/LFTMC RemisolProtein [Mass/Vol]7.5 g/dLNormal6.0 - 7.8 gm/dLFTMC RemisolSodium [Moles/Vol]141 mmol/LEyxkoz488 - 145 mmol/LFTMC RemisolUrea nitrogen [Mass/Vol] 21 mg/dLNormal5 - 21 mg/dLFTMC RemisolUrea nitrogen/Creatinine [Mass ratio]16 mg/xiUdduuw71 - 20FTMC RemisolHEMATOLOGYOrdered By: SYSTEM SYSTEM on 05-11-2023 Basophils/100 WBC (Bld)0.8 %Normal0.0 - 2.0 %[facility] HemeAutoSSBasophils/Leukocytes Auto (Bld) [Pure # fraction]0.0 E9/LNormal0.0 - 0.2 E9/LFTMC HemeAutoSS Eosinophils/100 WBC (Bld)5.2 %Normal0.0 - 8.0 %[facility] HemeAutoSS Eosinophils/Leukocytes Auto (Bld) [Pure # fraction]0.3 E9/LNormal0.0 - 0.5 E9/L [facility] HemeAutoSSLymphocytes/100 WBC (Bld)31.3 %Wjqzvk61.0 - 50.0 %[facility] HemeAutoSS Lymphocytes/Leukocytes Auto (Bld) [Pure # fraction]1.8 E9/LNormal1.0 - 4.0 E9/L [facility] HemeAutoSSMonocytes/100 WBC (Bld)7.8 %Normal4.0 - 14.0 %[facility] HemeAutoSS Monocytes/Leukocytes Auto (Bld) [Pure # fraction]0.4 E9/LNormal0.2 - 1.0 E9/L [facility] HemeAutoSSNeutrophils/100 WBC (Bld)54.9 %Jitrnl47.0 - 75.0 %[facility] HemeAutoSS Neutrophils/Leukocytes Auto (Bld) [Pure # fraction]3.1 E9/LNormal2.0 - 7.5 E9/L [facility] HemeAutoSSHEMATOLOGYOrdered By: Nato Cheung on 53-76-3201Afwxvnpsmes distribution width (RBC) [Ratio]12.9 %Izrxqy43.9 - 14.2 %[facility] HemeAutoSS Hematocrit (Bld) [Volume fraction]34.9 %Ozufzz72.0 - 46.0 %[facility] HemeAutoSS Hemoglobin (Bld) [Mass/Vol]11.8 g/dLLow12.0 - 16.0 gm/dLFTMC HemeAutoSSMCH (RBC) [Entitic mass]32.6 xtXssyys30.0 - 34.0 pgFTMC HemeAutoSSMCHC (RBC) [Mass/Vol] 33.9 g/mIAqyfuv26.4 - 36.0 gm/dLFTMC HemeAutoSSMCV (RBC) [Entitic vol]96.3 fL Vadouq93.0 - 100.0 fLFTMC HemeAutoSSPlatelet mean volume (Bld) [Entitic vol]8.2 fLNormal6.4 - 10.8 fLFTMC HemeAutoSSPlatelets (Bld) [#/Vol]275.0 E9/SSngwnk735.0 - 500.0 E9/LFTMC HemeAutoSSRBC (Bld) [#/Vol]3.6 E12/LLow4.3 - 5.9 E12/LFTMC HemeAutoSSWBC corrected for nucl RBC Auto (Bld) [#/Vol]5.6 E9/LNormal4.0 - 11.0 E9/LFTMC HemeAutoSSURINALYSISOrdered By: Dinah Almazan on 51-26-4988Ducxabnj LM Ql (Urine sed)Trace /HPFNormalTrace/HPFCARL ALBERT [facility] UA Auto SSBilirubin Ql (U)Negative (05/11/23 12:05 PM)NormalNegativeCARL ALBERT [facility] UA Auto SSClarity (U)Clear (05/11/23 12:05 PM)NormalClearFLAKESIDE WOM[facility] [place] UA Auto SSColor (U)Yellow (05/11/23 12:05 PM)NormalYellowCARL [facility] [place] [facility] Auto SSCrystals LM Ql (Urine sed)Present (05/11/23 12:05 PM)NormalCARL [facility] [place] [facility] Auto SSEpithelial cells.squamous LM.HPF (Urine sed) [#/Area]5-8 /HPFNormal0-2/HPFCARL [facility] [place] [facility] Auto SSGlucose Test strip (U) [Mass/Vol]Negative (05/11/23 12:05 PM)NormalNegativeCARL [facility] [place] [facility] Auto SSHemoglobin Ql (U)Trace *ABN* (05/11/23 12:05 PM)Invalid Interpretation CodeNegativeCARL [facility] [place] [facility] Auto SSKetones (U) [Mass/Vol]Negative (05/11/23 12:05 PM)NormalNegativeCARL [facility] [place] [facility] Auto SSLithium.plasma/[place].RBC (Bld) [Mass ratio]0-3 /HPFNormal0-3/HPFCARL [facility] [place] [facility] Auto SSMucus Ql (Urine sed)2+ (05/11/23 12:05 PM)NormalCARL [facility] [place] [facility] Auto SSNitrite Ql (U)Negative (05/11/23 12:05 PM)NormalNegativeCARL [facility] [place] [facility] Auto SSpH (U)7.0 *NA* (05/11/23 12:05 PM)Invalid Interpretation Code5.0 - 9.0CAR[facility] [place] [facility]A Auto SSProtein (U) [Mass/Vol]Negative (05/11/23 12:05 PM)NormalNegativeCARL [facility] [place] [facility] Auto SSSpecific gravity (U) [Rel density]1.010 *NA* (05/11/23 12:05 PM)Invalid Interpretation Code1.005 - 1.030CAR[facility] [place] UA Auto SSUA Spec DescClean Catch (05/11/23 12:05 PM)NormalCARL [facility] [place] [facility] Auto SSUrobilinogen Qn (U)0.1279290 {Leon'U}/dLNormal0.0 - 1.0 EU/dLM[facility] Auto SSWBC Auto Ql (U)1+ *ABN* (05/11/23 12:05 PM)Invalid Interpretation CodeNegativeMASSACHUSETTS [facility] Auto SSWBC LM.HPF (Urine sed) [#/Area]0-5 /HPFNormal0-5/HPFCARL [facility] [place] [facility] Auto SSCULTURE URINEon [id number] URINECulture Observations: LIGHT GROWTH OF MIXED GENITAL NAN. NO POTENTIAL PATHOGENS SEEN.NormalBlanchard Valley Health System HospitalComment on above:Performed By: #### URCX #### [facility] [address] [place] [address] Dr. Melchor Winter (CLEAN/CATCH) MICROSCOPIC IF INDICATEon 50-84-8535Eqxrysimj Ql (U)NegativeNormalNEGATIVECorey HospitalComment on above:Performed By: #### UMICRO UARMICR #### [facility] [address] [place] [address] Dr. Melchor BrockClarity (U)CLEARNormalCLEARCorey HospitalComment on above: Performed By: #### UMICRO UARMICR #### [facility] [address] [place] [address] Dr. Melchor Lugo (U)LT. YELLOWNormalYELLOWCorey HospitalComment on above:Performed By: #### UMICRO, UARMICR #### [facility] [address] [address] [address] Melchor BrockGlucose Ql (U)NegativeNormalNEGATIVECorey HospitalComment on above:Performed By: #### UMICRO, UARMICR #### [facility] [address] [place] [address] Dr. Melchor BrockHemoglobin Ql (U)TRACE-INTACTAbnormalNEGATIVECorey HospitalComment on above:Performed By: #### UMICRO, UARMICR #### [facility] [address] [place] [address] Dr. Melchor BrockKetones Ql (U)NegativeNormalNEGATIVECorey HospitalComment on above:Performed By: #### CASH UARMICR #### [facility] [address] [address] [address] Melchor QuesadaOCYTESTRACEAbnormalNEGATIVEThe [facility] CenterComment on above:Performed By: #### CASH UARMICR #### [facility] [address] [address] [address] Melchor Glover Ql (U)NegativeNormalNEGATIVEThe [facility] CenterComment on above:Performed By: #### CASH UARMICR #### [facility] [address] [address] [address] Melchor Hernandez (U)6.0 [pH]Normal5-9The [facility] CenterComment on above: Performed By: #### FLORENCE CASTREJONRMICR #### [facility] [address] [address] [address] Melchor BrockSPEC GRAVITY1.582Zfpjzb5.005-<=1.025The [facility] CenterComment on above:Performed By: #### FLORENCE CASTREJONRMICR #### [facility] [address] [place] [address] Dr. Melchor Winter PROTEINNegativeNormalNEGATIVE/ TRACEThe [facility] Comment on above:Performed By: #### CASH UARMICR #### [facility] [address] [address] [address] Melchor Rothman MICRO INDINDICATEDNormalThe [facility] CenterComment on above: Performed By: #### CASH UARMICR #### [facility] [address] [address] [address] Melchor Ellis Qn (U)0.2 {Leon'U}/dLNormal0.2 - 1.0The [facility] CenterComment on above:Performed By: #### CASH UARMICR #### [facility] [address] [place] [address] Dr. Melchor Bolanos MICROSCOPIC ONLYon 36-73-0238UGOEHRXJHDYI SEENNormalNONE SEENCleveland Clinic [facility] on above:Performed By: #### GLUC, LIPID #### [facility] [address] [address] [address] Melchor Madrigal identified Cx Nom (U)CX ALREADY ORDEREDNormalThGrand Lake Joint Township District Memorial HospitalComment on above:Performed By: #### GLUC, LIPID #### [facility] [address] [address] [address] Melchor De La Cruz SEENNormalNONE SEENCleveland Clinic Mentor Hospital on above:Performed By: #### GLUC, LIPID #### [facility] [address] [address] [address] Melchor Michelleystals LM Nom (Urine sed)NONE SEENNormalNONE SEENCleveland Clinic Mentor Hospital on above:Performed By: #### GLUC, LIPID #### [facility] [address] [address] [address] Roche ChangEkirkthelial cells LM Ql (Urine sed)RARENormalNONE SEEN /RARECorey HospitalComchelsea hospital on above:Performed By: #### GLUC, LIPID #### [facility] [address] [address] [address] Melchor BrockMUCOUSVAISHALI SEENNormalNONE SEENCleveland Clinic [facility] Hospital on above:Performed By: #### GLUC, LIPID #### [facility] [address] [address] [address] Melchor Da SilvaEljucAAO2-4Syeaay2-8EsaCleveland Clinic Mentor Hospital on above:Performed By: #### GLUC, LIPID #### [facility] [address] [address] [address] Melchor BrockWBC0-2AbnormalNONE SEENCleveland Clinic Mentor Hospital on above: Performed By: #### GLUC, LIPID #### [facility] [address] [address] [address] Melchor BrockMG MAMM SCREEN 3D SARAHI CADon 28-70-9302DE MAMM SCREEN 3D SARAIH CAD Patient: ISAURA HAYDENLaurie Exam Date: 03/15/2022 : 1950 Gender:F Ordering : DR FARA BOOKER . Admission #: [id number] Family : Order #: [id number] CLICK HERE TO VIEW EXAM RADIOLOGY REPORT [...] lung cancer at age 72. LOCATION: [facility] BREAST COMPOSITION: Heterogeneously dense,which may [...] by: Alan Cárdenas M.D. on 03/15/2022 at 11:41T[facility]edo HospitalGLUCOSE BLOODon 53-15-4920Esmnvsd [Mass/Vol]99 mg/vSGvdvcl22-722Dvh [facility] CenterComment on above:Performed By: #### GLUC, LIPID #### [facility] [address] [place] [address] Dr. Melchor BrockLIPID PROFILEon 06-48-5003SVPT-HDL RATIO NORMSEE BELOWToledo HospitalComment on above:Result Comment: 3.3 - 4.4 LOW RISK 4.4 - 7.1 AVERAGE RISK 7.1 - 11.0 MODERATE RISK >11.0 HIGH RISKPerformed By: #### GLUC, LIPID #### [facility] [address] [address] [address] Melchor BrockCholesterol [Mass/Vol]202 mg/dLCritically high<=200The [facility] on above:Performed By: #### GLUC, LIPID #### [facility] [address] [address] [address] Melchor BrockCholesterol in HDL [Mass/Vol]56 mg/yHScgcoc41-89CqaCleveland Clinic Mentor Hospital on above:Performed By: #### GLUC, LIPID #### [facility] [address] [address] [address] Melchor BrockCholesterol in LDL [Mass/Vol]112.6 mg/dLThe [facility] on above:Performed By: #### GLUC, LIPID #### [facility] [address] [place] [address] Dr. Melchor Hurtadoestermaia.total/Cholesterol in HDL [Mass ratio]3.6 {ratio} NormalThe [facility] on above:Performed By: #### GLUC, LIPID #### [facility] [address] [place] [address] Dr. Melchor Hutton NORMAL> or = 60 mg/dl - LOW CARDIOVASCULAR RISK <40 mg/dl - HIGH CARDIOVASCULAR RISKThe [facility] on above:Performed By: #### GLUC, LIPID #### [facility] [address] [place] [address] Dr. Melchor Anne CALC NORMALSEE BELOWToledo HospitalComchelsea hospital on above:Result Comment: <100 mg/dl OPTIMAL 100 - 129 mg/dl NEAR OR ABOVE OPTIMAL 130 - 159 mg/dl BORDERLINE HIGH 160 - 189 mg/dl HIGH >190 mg/dl VERY HIGH Performed By: #### GLUC, LIPID #### [facility] [address] [place] [address] Dr. Melchor BrockTriglyceride [Mass/Vol]167 mg/dLCritically high<=150The [facility] on above:Performed By: #### GLUC, LIPID #### [facility] [address] [place] [address] Dr. Melchor BrockVLDL CALC33.4 mg/dLToledo HospitalComchelsea hospital on above: Performed By: #### GLUC, LIPID #### [facility] [address] [address] [address] Melchor KongID PROFILEon 46-59-6178JXCX-HDL RATIO NORMSNewark HospitalComchelsea hospital on above:Result Comment: 3.3 - 4.4 LOW RISK 4.4 - 7.1 AVERAGE RISK 7.1 - 11.0 MODERATE RISK >11.0 HIGH RISKPerformed By: #### LIPID, BMP #### [facility] [address] [address] [address] Melchor BrockCholesterol [Mass/Vol]244 mg/dLCritically high<=200[facility] on above:Performed By: #### LIPID, BMP #### [facility] [address] [place] [address] Dr. Melchor BrockCholesterol in HDL [Mass/Vol]60 mg/kGXbweil01-40DosCorey HospitalComchelsea hospital on above:Performed By: #### LIPID, BMP #### [facility] [address] [place] [address] Dr. Melchor BrockCholesterol in LDL [Mass/Vol]158.4 mg/dLToledo HospitalComchelsea hospital on above:Performed By: #### LIPID, BMP #### [facility] [address] [place] [address] Dr. Melchor Hurtadoestermaia.total/Cholesterol in HDL [Mass ratio]4.1 {ratio} NormalThe [facility] on above:Performed By: #### LIPID, BMP #### [facility] [address] [place] [address] Dr. Melchor BrockHDL NORMAL> or = 60 mg/dl - LOW CARDIOVASCULAR RISK <40 mg/dl - HIGH CARDIOVASCULAR RISKToledo HospitalComchelsea hospital on above:Performed By: #### LIPID, BMP #### [facility] [address] [place] [address] Dr. Melchor BrockLDL CALC NORMALSEE [facility] CenterComchelsea hospital on above:Result Comment: <100 mg/dl OPTIMAL 100 - 129 mg/dl NEAR OR ABOVE OPTIMAL 130 - 159 mg/dl BORDERLINE HIGH 160 - 189 mg/dl HIGH >190 mg/dl VERY HIGH Performed By: #### LIPID, BMP #### [facility] [address] [place] [address] Dr. Melchor BrockTriglyceride [Mass/Vol]128 mg/dLNormal<=150[facility] Comment on above:Performed By: #### LIPID, BMP #### [facility] [address] [place] [address] Dr. Melchor BrockVLDL CALC25.6 mg/dLNormalThe [facility] CenterComment on above: Performed By: #### LIPID, BMP #### [facility] [address] [place] [address] Dr. Melchor BrockPROKell CHEM 8 (BAS METB)on 21-61-0907Dmchy gap [Moles/Vol]10.7 mmol/LNormalCorey HospitalComment on above:Performed By: #### LIPID, BMP #### [facility] [address] [place] [address] Dr. Melchor BrockCalcium [Mass/Vol]7.8 mg/dLCritically low8.4-10.2The [facility] CenterComment on above:Performed By: #### LIPID, BMP #### [facility] [address] [place] [address] Dr. Melchor BrockChloride [Moles/Vol]103 mmol/GTuhbsd05-011NaqCorey Hospital Comment on above:Performed By: #### LIPID, BMP #### [facility] [address] [place] [address] Dr. Melchor BrockCO2 [Moles/Vol]28.4 mmol/YFbnviv51.0-30.0[facility] Comment on above:Performed By: #### LIPID, BMP #### [facility] [address] [place] [address] Dr. Melchor BrockCreatinine [Mass/Vol]1.05 mg/dLCritically high0.52-1.04The [facility] CenterComment on above:Performed By: #### LIPID, BMP #### [facility] [address] [address] [address] Melchor LopezGFR-AF CAMBODIAN>60Normal>=60The [facility] CenterComment on above:Performed By: #### LIPID, BMP #### [facility] [address] [address] [address] Melchor LopezGFR-NON AF HKXPXJUY32 mL/min/1.30q4Qtznxoronl low>=60The [facility] CenterComment on above:Performed By: #### LIPID, BMP #### [facility] [address] [address] [address] Melchor BrockGlucose [Mass/Vol]98 mg/xYXmvjdf79-850Sqd [facility] Comment on above:Performed By: #### LIPID, BMP #### [facility] [address] [address] [address] Melchor BrockPotassium [Moles/Vol]4.1 mmol/LNormal3.4-5.0[facility] Comment on above:Performed By: #### LIPID, BMP #### [facility] [address] [place] [address] Dr. Melchor BrockSodium [Moles/Vol]138 mmol/FWdynex052-445Hld [facility] Comment on above:Performed By: #### LIPID, BMP #### [facility] [address] [place] [address] Dr. Melchor BrockUrea nitrogen [Mass/Vol]15.0 mg/dLNormal7.0-17.0The [facility] CenterComment on above:Performed By: #### LIPID, BMP #### [facility] [address] [place] [address] Dr. Melchor BrockUrea nitrogen/Creatinine [Mass ratio]14.3 mg/mgNormalThe [facility] CenterComment on above:Performed By: #### LIPID, BMP #### [facility] [address] [place] [address] Dr. Melchor LopezCHOCARDIO M/2D COMPLETEon 14-58-7437VCQUUKFVVY M/2D COMPLETE Patient: ISAURA HAYDENLaurie Exam Date: 10/05/2021 : 1950 Gender:F Ordering : DR ANJELICA GAMBINO . Admission #: [id number] Family : Order #: [id number] CLICK HERE TO VIEW EXAM ECHOCARDIOGRAM REPORT [...] Area(A4C): 20.70 cm2 Left Atrium Systolic Volume(A2C): 35891 mm3 Left Atrium Systolic Volume(A4C): 99633 mm3 Mitral Valve MV E to A Ratio: 1.10 Deceleration Lamoure: 7410 mm/s2 Mitral Valve A-Wave Peak Velocity: [...] by: Coy Dove M.D. on 10/06/2021 at 08:32Toledo HospitalXR DEXA BONE DENSITYon 73-68-7007KS DEXA BONE DENSITYEXAMINATION: XR DEXA BONE DENSITY, [...] Electronically authenticated by: KVNG MILIAN Date: 2021-09-18 10:56Toledo HospitalDEXA BONE DENSITY AXIAL SKELETONon 52-64-6849DTMP BONE DENSITY AXIAL SKELETONREPORT: DEXA scanTECHNIQUE: Routine [...] both femoral necksInterpreted by:ARLEY Valenciaigned by:Lora Mondragon MD09/12/18FKettering Health HamiltonMAM DIGITAL SCREEN BILATERALon 13-39-4270CBD DIGITAL SCREEN BILATERALREPORT: BILATERAL DIGITAL SCREENING MAMMOGRAM WITH ASSISTANCE OF CADINDICATION: ScreeningFINDINGS: Compared to 07/30/2016, 04/17/2015, 04/16/2014, 10/26/2011 and 06/09/2010. The breasts are heterogeneously dense. No suspicious calcifications, mass lesions, architectural distortion or skin thickening.Final report electronically signed by Lora Mondragon on 09/12/2017 5:38 PMIMPRESSION: No mammographic evidence of malignancy. (CATEGORY 1 - ACR BI- RADS: NEGATIVE)Interpreted by:ARLEY Valenciaigned by:Lora Mondragon MD09/12/[address] [place] [address] Vital Signs Date TimeVital SignValuePerforming TedmkqlvhGvqitubx03-96-1807 16:08-0400Body voxhjy377.56 [facility] [id number] 16:08-0400Body mass index (BMI) [Ratio]28.84 kg/y9PblhzsiLifeBrite [facility] 53-133948-69462306-86-4551 16:08-0400Body surface area Derived from formula1.85 i8MvxdsfaLifeBrite Community Hospital [facility] 07-09-2025 16:08-0400Body .2 kgFormerly [facility] 03-881195-67216423-69-0323 16:08-0400Diastolic blood higwatsp65 mm[Hg] Kaitlin Anderson [facility] 07-09-2025 16:08-0400Heart rate68 /minCarlety Villegas [facility] 07-09-2025 16:08-0400Systolic blood ndwuhrxm822 mm[Hg] [facility] 01-07-2025 09:11-0500Body mass index (BMI) [Ratio]29.01 kg/u7Tsvuw Pippa DO Work Phone: [facility] HospitalBmqqgoybde25-21-3013 09:11-0500Body jantkp96.66 kgCorey Pippa DO Work Phone: [facility] HospitalGsheaxrgqb60-70-7248 09:11-0500Diastolic blood phdfddzi66 mm[Hg]Bentley Pippa DO Work Phone: [facility] HospitalNqfeekngwp56-51-9904 09:11-0500Systolic blood brdugefs603 mm[Hg]Bentley Pippa DO Work Phone: [facility] HospitalGbusvqyxjw45-06-4210 10:45-0400Body mobmis399.6 cmCjoan GOMEZ Work Phone: [facility]05-07-2024 10:45-0400Body mass index (BMI) [Ratio]28.65 kg/r9TjsuwouiMary GOMEZ Work Phone: [facility]05-07-2024 10:45-0400Body aufttoujkav37.81 [degF]Mary GOMEZ Work Phone: [facility]05-07-2024 10:45-0400Body .75 kgConu GOMEZ Work Phone: [facility]05-07-2024 10:45-0400Diastolic blood mm[Hg]Mary GOMEZ Work Phone: [facility]05-07-2024 10:45-0400Heart rate 57 /minCourtney Pennington PA Work Phone: [facility] [employer] Awyauy89-43-5045 10:45-0400 Respiratory rate16 /minCourtney Pennington PA Work Phone: [facility] Nzmxey01-81-5192 10:45-0912OuL9% (BldA) [Mass fraction]99 %Mary Pennington PA Work Phone: [facility] [employer] Piahpp33-70-1423 10:45-0400Systolic blood mfpozcok521 mm[Hg]Mary Pennington PA Work Phone: [phone] Vpxhyn37-71-3989 10:41-0400Body kkasat025.6 cmCourtney Pennington PA Work Phone: [facility] [employer] Pounlj52-54-5404 10:41-0400Body mass index (BMI) [Ratio]28.48 kg/l7Ivlintff Pennington PA Work Phone: [facility] [employer] Lpinre80-07-1208 10:41-0400Body umdgnedkwwm11.81 [degF]Mary Pennington PA Work Phone: [facility] [employer] Bpqqxt71-93-3632 10:41-0400Body inwamn15.3 kgCourtney Pennington PA Work Phone: [facility] [employer] Rjxvln03-95-8338 10:41-0400Diastolic blood mmitayoj42 mm[Hg]Mary Pennington PA Work Phone: [facility] [employer]04-09-2024 10:41-0400Heart rate 57 /minCourtney Pennington PA Work Phone: [facility]04-09-2024 10:41-0400 Respiratory rate16 /minCourtney Pennington PA Work Phone: [facility] [employer] Harfym47-09-5296 10:41-0067EkB6% (BldA) [Mass fraction]100 %Mary Pennington PA Work Phone: [facility]04-09-2024 10:41-0400Systolic blood eptxdayp532 mm[Hg]Mary GOMEZ Work Phone: [facility]03-18-2024 10:32-0400Body .[address]03-18-2024 10:32-0400Body mass index (BMI) [Ratio]28.15 kg/p1Rerqi[address]03-18-2024 10:32-0400Body rivwfy54.[address]03-06-2024 14:38-0500Body vgqdayqrdes00.29 [degF]Nabil Lord MD Work Phone: [phone]03-06-2024 14:38-0500Diastolic blood mm[Hg]Nabil Lord MD Work Phone: [phone]03-06-2024 14:38-0500Heart rate 67 /minAdafarzana Lrod MD Work Phone: [phone]03-06-2024 14:38-6536ZgO5% (BldA) [Mass fraction]98 %Nabil Lord MD Work Phone: [facility]03-06-2024 14:38-0500Systolic blood duiiwavt222 mm[Hg]Nabil Lord MD Work Phone: [phone]03-06-2024 14:35-0500Body mass index (BMI) [Ratio]29.18 kg/m2Nabil Lord MD Work Phone: [phone]03-06-2024 14:35-0500Body agtzzs97.11 kgNabil Lord MD Work Phone: [phone] Encounters Encounter DateEncounter TypeCare ProviderFacilityStart: 04-67-2542vxzspatmlmjenny ChinchillaFacility:[facility] BellevueStart: 07-01-2025 End: 84-26-1287llcfntgwetOLC Matt L SchwabFacility:FTMCStart: 04-15-2025 End: 90-42-7788Csfggkavf Result EncounterCorey Pippa DO Work Phone: noms External Department UnsolicitedStart: 04-15-2025 End: 07-58-8799Semtttmfm Result EncounterCorey Pippa DO Work Phone: noms External Department UnsolicitedStart: 04-12-2025 End: 87-39-7996Krwgqnuso Result EncounterCorey Pippa DO Work Phone: noms External Department UnsolicitedStart: 04-12-2025 End: 93-25-6718Uvwdbktqk Result EncounterCorey Pippa DO Work Phone: noms External Department UnsolicitedStart: 02-27-2025 Xavier Santiago Other [facility] OfficeStart: 01-28-2025 End: 54-20-3551xwypwccamuFmcsug E. RossFacility:[facility] BellevueStart: 10-19-2024 End: 61-52-9965Mub Drop offJodi L Yi [facility] Start: 10-19-2024 End: 22-63-3727wgggimyciiWwea L SchwabFacility:FTMCStart: 10-05-2024 End: 58-58-6383Xfnytzhtg Result EncounterCorey Pippa DO Work Phone: noms External Department UnsolicitedStart: 10-05-2024 End: 68-95-4802Vbulofhac Result EncounterCorey Pippa DO Work Phone: noms External Department UnsolicitedStart: 09-17-2024 End: 27-70-5649hcoqiagworYwoc L SchwabFacility:[facility] BellevueStart: 09-11-2024 End: 63-56-3035rwtmbnkjilFoljb Saw HeckFacility:[facility] HospitalStart: 09-10-2024 End: 03-03-2528okeamfniefKcokpo E. RossFacility:[facility] BellevueStart: 08-28-2024 End: 34-59-4837Ziitjv flowsheetCorey Pippa DO Work Phone: noms BCP OBStart: 08-28-2024 End: 60-29-1451Pcuouq flowsheetCorey Pippa DO Work Phone: noms BCP OBStart: 08-28-2024 End: 51-30-0997Ntyjqhm encounter procedureCorey Pippa DO Work Phone: noms BCP OBComment on above:Well woman exam with routine gynecological exam; Breast cancer screening by mammogram; Postmenopausal stateStart: 08-28-2024 End: 68-35-1942rqrebrbfejBJKZC FAZIONot AvailableStart: 08-27-2024 End: 54-94-1862kndqqtvuzpRftplz E. RossFacility:[facility] BellevueStart: 08-09-2024 End: 58-36-0228Moj Drop offSafsaneh Chinchilla [facility] Start: 08-09-2024 End: 56-82-8350ooefcmdzzqAbrzmm E. RossFacility:FTMCStart: 07-30-2024 End: 17-96-4838bdhcfpvrpsRW Anamaria ChinchillaFacility:[facility] BellevueStart: 07-30-2024 End: 77-30-4891tojcjtmdauWD Anamaria ChinchillaFacility:[facility] BellevueStart: 07-13-2024 End: 45-57-6899qragmkjoydVYLYKE A LEHMANNFacility:[facility] FM BellevueStart: 05-07-2024 End: 67-12-0793Xtr Drop offSafsaneh Chinchilla [facility] Start: 05-07-2024 End: 44-49-5861kkxiupwtmcEP Anamaria ChinchillaFacility:[facility]ER CENTERtart: 12-27-2023 End: 02-73-2616okrpnzokydZYADRMCOFederal Medical Center, Devenstart: 12-27-2023 End: 87-15-5468Fbxcvg follow up visit related to original Juvencio Pennington JASON Work Phone: [facility] OncologyComment on above:Encounter for postoperative care (Primary Dx)Start: 11-29-2023 End: 57-25-1849quximopkhwOWPQTGODBerger Hospitaltart: 11-29-2023 End: 26-10-3366Fqyqie follow up visit related to original Juvencio Pennington JASON Work Phone: [facility] OncologyComment on above:Encounter for postoperative care (Primary Dx)Start: 11-14-2023 End: 99-12-6444Pvqhjybxan and management of inpatientPETER MONTRIEProMedica Mershon HospitalStart: 11-14-2023 End: 48-78-0160Iydworngwt and management of inpatientADAM C [facility] HospitalStart: 55-03-5758Rzjopnvxb for other preprocedural examination NABIL C [facility] HospitalStart: 11-09-2023 End: 97-34-7581qctorgkpwzRXTC C [facility] HospitalStart: 11-07-2023 End: 95-81-9455Kcrycnmrkr and management of inpatientKIM E KNIGHTKnox Community Hospital HospitalStart: 11-07-2023 End: 49-58-3642Irugzejoc to establishmentMetro Pat Phone Call Provider 2 Nash [facility] On [facility] Emergencytart: 10-28-2023 Patient encounter statusAdafarzana Lord MD Work Phone: [facility] SystemStart: 20-06-1422Wqacaysxf encounterAdafarzana Lord MD Work Phone: [facility] OncologyStart: 10-26-2023 End: 89-81-4978szfxcivgcdAAPU C WALTERMayo Memorial HospitalAmanda [facility] HospitalStart: 10-26-2023 End: 87-48-7411Atiqpu outpatient new 60 minutesAdam Tobi Lord MD Work Phone: [facility] OncologyComment on above:Endometrial thickening on ultrasound (Primary Dx); Postmenopausal bleedingStart: 17-81-3010ywmcnvzkypUSHSaint Alphonsus Medical Center - [facility] PPGStart: 89-38-9081Cztsdqsng encounterMadison Sury [facility] OncologyStart: 10-17-2023 End: 79-91-5358Gpuvqfiws Result EncounterDiane GOMEZ Work Phone: noms External Department UnsolicitedStart: 10-17-2023 End: 54-51-9434Qzdswjlpk Result EncounterDiane GOMEZ Work Phone: noms External Department UnsolicitedStart: 10-11-2023 End: 55-15-0178cffdjfgxnoVITYQ FAZIONot AvailableStart: 09-01-2023 End: 63-30-5398arzixhaywlKNRTFY A LEHMANNFacility:FT FM BellevueStart: 08-11-2023 End: 61-77-6406yiwlwgsxthFW Samuel E. RossFacility:FT FM BellevueStart: 08-05-2023 End: 19-70-6929Urhelgmis Result EncounterCorey Pippa DO Work Phone: noms External Department UnsolicitedStart: 08-05-2023 End: 45-41-7253Rkqqwzwaj Result EncounterCorey Pippa DO Work Phone: noms External Department UnsolicitedStart: 05-11-2023 End: 48-94-5165Ikj Drop offMatt Richmond [facility] Start: 08-03-2022 End: 11-48-6195umlqituulsER KIM E KNIGHTFacility:V3Aboyh: 07-06-2022 End: 31-18-8746ermgyuddwmLD KIM E KNIGHTFacility:A9Dyvyu: 03-15-2022 End: 54-70-5864czghdbljdbZZ KIM E KNIGHTFacility:G4Yovgn: 02-09-2022 End: 11-58-4802ilsitbtqzaPO KIM E KNIGHTFacility:X4Fddps: 11-05-2021 End: 10-30-5520zoagsiaragEN KIM E KNIGHTFacility:T2Cgyui: 10-05-2021 End: 23-13-5943ushrltogznIX KIM E KNIGHTFacility:E5Zhmwh: 09-18-2021 End: 09-65-6293awsydgofzlRU KIM E KNIGHTFacility:G5Tbtdb: 09-08-2021 End: 05-91-7024kztuwlpurmPS KIM E KNIGHTFacility:T5Frpuj: 09-12-2017 End: 33-66-5137JkqjfflxtiWDAPIFJMercy Health – The Jewish Hospital Procedures DateProcedureProcedure DetailPerforming ClinicianStart: 87-63-2738NR TOMOSYNTHESIS SCREENING BICorey Pippa DO Work Phone: Start: 27-86-7007ICG CALCIUMCorey Pippa DO Work Phone: Start: 43-73-7191GNB CREATININECorey Pippa DO Work Phone: Start: 66-08-2350Piouq conduction studies 7-8 studies Kaitlin OsborneStart: 52-55-2357AJP CALCIUMCorey Pippa DO Work Phone: Start: 95-45-7670Pyivrs-up visitFollow-upCOURTNEY PAYNEStart: 13-38-2295CZ MIREYA W/ TRANSNabor GOMEZ Work Phone: Start: 13-63-0319MLF 12-LEADCorey Pippa DO Work Phone: Start: 26-83-0939UmofljjcwevwLljvsu Ross Start: 81-94-2111Pskszteez mammography bi 2-view breast inc cadFARA FORBEStart: 96-06-6809Hxi bone density study 1/> sites axial skelFARA NGOholecystectomyJochantale [facility]il Comment on above:bile duct surgeryColonoscopyJoSureVisit Comment on above:2012 normalLaser device (physical object)Matt [employer] Comment on above:eye Plan of Treatment DateCare ActivityDetailAuthorStart: 09-03-2025 End: 11-92-1908Eqkryfw encounter procedureNOMS [facility] OBStart: 25-01-4328vgfocorhkz AmbulatoryFacility:FT FM BellevueStart: 60-96-5600Dmahu BMI ScreeningAdult BMI ScreeningProMedica Health SystemStart: 26-20-8136Thvpi BMI ScreeningAdult BMI ScreeningProChildren'S Hospital For Rehabilitationca Health SystemStart: 91-53-2187Lgwupfv ScreeningTobacco ScreeningProMedica Health SystemStart: 58-49-2047Czdyd BMI ScreeningAdult BMI ScreeningProChildren'S Hospital For Rehabilitationca Health SystemStart: 05-53-2499Zdzwrxr ScreeningTobacco ScreeningProMedica Health SystemStart: 08-28-2024 End: 68-24-7635OGJ Skeletal system Views for bone densityDEXA bone density Imaging Routine Postmenopausal state Expected: 08/28/2024 (Approximate), Expires:08/28/2025NOMS HealthcareComment on above:Expected: 08/28/2024 (Approximate), Expires: 08/28/2025Start: 08-28-2024 End: 95-07-8485QR Breast - bilateral ScreeningBilateral screening mammogram Imaging Routine Breast cancer screening by mammogram Expected: 08/28/2024, Expires: 10/26/2025[facility] Work Phone: comment on above:Expected: 08/28/2024, Expires: 10/26/2025Start: 08-28-2024 End: 15-05-5960Titzfmo encounter ndcuaseke03/07/2025 9:00 AM EST Office Visit [facility] [address] [place] [address] Bentley Das, DO [address] [place] [address] ArrivedNOMS [facility] OBComment on above:ArrivedStart: 07-46-5894Fqfclabqd vaccinationInfluenza VaccineCritical access hospitaltart: 12-27-2023 End: 95-65-2844Ezbobna encounter plsykytit08/07/2024 11:00 AM EDT Office Visit Lurdesalejandra Salesn [facility] - Medical Oncology [address] [place] [address] Mary Pennington PA [address] [place], [place] [phone] (Work) Lurdes L Sharp [facility] - Medical OncologyStart: 11-29-2023 End: 38-77-3949Qostnzt encounter heutraxtn73/09/2024 10:30 AM EDT Office Visit Lurdes Rosado [facility] - Medical Oncology [address] [place] [address], [place] [phone] Mary Pennington PA [address] [place], [place] [phone] (Work) Lurdes L [facility] - Medical OncologyStart: 11-14-2023 End: 92-74-9654Skqdinmxd to same day surgery mlhwcy8611/14/2023 11:00 AM EDT - 11/14/2023 1:00 PM EDT Surgery [facility] - Surgery [address] [place] [address] Nabil Lord MD [address] [place] [address], [address] [place] [address] DAVINCI HYSTERECTOMY SALPINGO OOPHORECTOMY(WITH FROZEN SECTION AND POSSIBLE STAGING)[facility] HospitalComment on above:DAVINCI HYSTERECTOMY SALPINGO OOPHORECTOMY(WITH FROZEN SECTION AND POSSIBLE STAGING)Start: 11-14-2023 End: 10-03-5525QWJZBOG HYSTERECTOMY SALPINGO OOPHORECTOMYDAVINCI HYSTERECTOMY SALPINGO OOPHORECTOMY THICKENED ENDOMETRUM/POST MENOPAUSAL BLEEDING/CERVICAL ST ENOSIS 11/14/2023 11:00 AM EDFormerly Albemarle Hospitaltart: 23-38-2992Svyncbswjt hospital visit by dagzfdlkk85/25/2024 11:00 AM EDT Hospital Encounter [facility] Surgery [address] [place] [address] Nabil Lord MD [address] [place] [address] [place], [place] [phone] [facility]Start: 11-07-2023 End: 96-13-5217Txgjvwzyl to sclobrxfkibrt41/18/2024 10:30 AM EDT Support Visit [facility] On [address] [address]VlrHjkuxc [facility] On [facility] Start: 10-28-2023 End: 32-80-1244YG Chest PA and LateralX-ray chest 2 views Imaging Routine Preop testing Expected: 10/28/2023, Expires: 10/27/2024[facility] HospitalComment on above:Expected: 10/28/2023, Expires: 10/27/2024Start: 10-26-2023 End: 07-48-3249Rphbxgy encounter fcywnmprf54/06/2024 3:00 PM EST Office Visit [facility] [address] [place] [phone] Nabil Lord MD [address] [place] [address], [address] [place], [place] [phone] (Work) [facility] Gynecology OncologyStart: 33-46-2142Qjonufpxr vaccinationInfluenza VaccineProMedica Health SystemStart: 10-25-4515Qldoz BMI ScreeningAdult BMI ScreeningKindred Hospital Lima SystemStart: 01-59-6525Tquq Risk ScreeningFall Risk ScreeningKindred Hospital Lima SystemStart: 48-67-7054Vmvpmoxoupvish of varicella zoster vaccineZoster (Shingles) Vaccine (1 of 2)[facility] SystemStart: 86-78-3995TAcG,Tdap and Td Vaccines (1 - Tdap)DTaP,Tdap and Td Vaccines (1 - Tdap)[facility] SystemStart: 57-87-4812Smxls BMI Follow Up PlanAdult BMI Follow Up PlanKindred Hospital Lima SystemStart: 24-09-2375Rlfcnetfpd ScreeningDepression ScreeningKindred Hospital Lima SystemStart: 82-85-1369Rxpckbw ScreeningTobacco ScreeningKindred Hospital Lima SystemStart: 1952Medicare Annual Wellness VisitMedicare Annual Wellness VisitCleveland Clinic Fairview Hospital End: 23-66-8565OHY W Auto Differential panel - BloodCBC with auto diff Lab Routine Preop testing 1 Occurrences starting 10/28/2023 until 10/27/2024 [facility] Work Phone: Comment on above:1 Occurrences starting 10/28/2023 until 10/27/2024 End: 44-56-0102Msqupzxvsrmtq metabolic 2000 panel - Serum or PlasmaComprehensive metabolic panel Lab Routine Preop testing 1 Occurrences starting 10/28/2023 until 10/27/2024[facility] SystemComment on above:1 Occurrences starting 10/28/2023 until 10/27/2024 End: 97-11-5476OXZ 12 leadECG 12 lead ECG Routine Preop testing 1 Occurrences starting 10/28/2023 until 10/27/2024[facility] SystemComment on above:1 Occurrences starting 10/28/2023 until 10/27/2024 Immunizations Immunization DateImmunizationNotesCare LusthusgUsavczxl01-59-4499elmkjcoaqgrh polysaccharide vaccine, 23 Ian Chinchilla 208-1211Ompvxi-WtqlpUc [facility] 11-87-8816pjlnctmninpa conjugate vaccine, 13 Ian Chinchilla [phone]-UrxyjSt. [facility] Hospital 88-60-6926wmaztejdv A vaccine, adult dosageSamjv Chinchilla [phone]-SckbeSt. Francis Hospital 82-20-7951khwolqhzo A vaccine, adult dosageSamjv Chinchilla 699-5172Cafzlc-MqhshSt. Francis Hospital 54-81-1197oihrsnlbl virus vaccine, unspecified formulationLinette Ga RN [facility]11-21-2014influenza, injectable, quadrivalent, preservative freeCorey Pippa DO Work Phone: [facility] HospitalTqtoiygefv86-51-1872lwssjqoid virus vaccine, unspecified formulationSamjv Chinchilla 167-3971Ncwqdu-PwklfSt. Francis Hospital 02-77-0540jksyofcjw, seasonal, injectableCorey Pippa DO Work Phone: [facility] HospitalHerxilxtsw25-31-5371exdqhysnu virus vaccine, unspecified formulationSamjv Chinchilla 649-7782Msdmti-TvqcsSt. Francis Hospital 02-57-7700upgscjhfw, seasonal, injectableCorey Pippa DO Work Phone: [facility] HospitalEmrxzlgdzs46-00-6673icueiyvfi virus vaccine, unspecified formulationSamjv Chinchilla 022-5240Phvnlw-CqajhSt. Francis Hospital 40-21-1278zesfjdwoy, seasonal, injectableCorey Pippa DO Work Phone: [facility] HospitalWkpwuamgms50-94-7215uhmpbhrezzbb polysaccharide vaccine, 23 valentSafsaneh Chinchilla 431-6205Iusxul-HyuvtSt. Francis Hospital NEGATED: Highlighted row has not occurred!19-04-5883cisggutve virus vaccine, unspecified formulationSamjv Chinchilla 132-3107Vteqkk-CkfutSt. Francis Hospital NEGATED: Highlighted row has not occurred!45-55-7410tybeazliy virus vaccine, unspecified formulationSafsaneh Chinchilla 637-2535Hpptla-HkthlSt. Francis Hospital NEGATED: Highlighted row has not occurred!83-06-7089SHFY-CoV-2 mRNA (tozinameran 5y-11y) vaccineJochantale Richmond [phone]-DwpkuCrystal Clinic Orthopedic Center Payers DatePayer CategoryPayerPolicy ID2022Medicare (Managed Care)[employer]VANT[employer] [id number] 2017Medicare [id number] [id number] 1950 [id number] 2..1.897598.3.57[id number] 2.0.1.219552.3.57[id number] 2.0.1.030931.3.57[id number] 2.0.1.318009.3.57[id number] 2.840.1.893540.3.57[id number] 2.16.840.1.505494.3.57[id number] 2.16.840.1.329505.3.57[id number] 2.16.840.1.891204.3.57[id number] 2.16.840.1.281485.3.57[id number] 2.16.840.1.200862.3.57[id number] 2.16.840.1.557470.3.57[id number] 2.16.840.1.795370.3.579.2.961109-71-9603Yoguieq91362099 2.16.840.1.788680.3.579.2.0[id number] 2.16.840.1.976161.3.57[id number] 2.16.840.1.477613.3.57[id number] 2.16.840.1.946708.3.579.2.877[id number] 2.16.840.1.044670.3.579.2.1[id number] 2.16.840.1.073793.3.579.[id number] 2.16.840.1.292647.3.579.[id number] 2.16.840.1.671953.3.57[id number] 2.16.840.1.790134.3.57[id number] 2.16.840.1.640248.3.57[id number] 2.16.840.1.075028.3.579.2.12775-82-3892Lhiyfxt90574028 2.16.840.1.721870.3.579.2.44425-06-4892Siwbnbw90135855 2.16.840.1.435101.3.579.2.44297-25-9831Aolhqsk5150739 2.16.840.1.564232.3.579.2.280674-13-7505Svqwjvg0886237 2.16.840.1.996771.3.579.2.910051-72-4595Ujfmytu588751201 2.16.840.1.693735.3.579.2.43489-39-5295Mpuztce27421235 2.16.840.1.223752.3.579.2.42568-32-2672Qvwyezx61267739 2.16.840.1.424477.3.579.2.28626-83-3829Fhhqfku35121458 2.16.840.1.688746.3.579.2.[id number] 2.16.840.1.810742.3.579.[id number] 2.16.840.1.418483.3.579.2.77302-53-7880Vbxicxr29482710 2.16.840.1.213233.3.57[id number] 2.16.840.1.633036.3.579.2.60362-99-8376Oeamrei08866352 2.16.840.1.819849.3.579.2.00984-01-8450Zzglwde36549008 2.16.840.1.521328.3.579.2.95621-18-1496Chpjtkc66016810 2.16.840.1.947179.3.579.2.[id number] 2.16.840.1.777729.3.579.[id number] 2.16.840.1.812643.3.579.2.59840-77-8608Hlqbbgv42487991 2.16.840.1.799657.3.579.2.727 Social History DateTypeDetailFacilityStart: 01-31-2023 End: 34-03-9036Wipdocs smoking statusNever smoked tobacco (finding)[facility] BellevueComment on above:deniesdenies use.Start: 11-03-2022 Tobacco smoking statusNeverHolzer Hospital BellevueComment on above:deniesdenies use.Start: 10-02-2020 End: 97-75-2046Uax Assigned At BirthFeGlenbeigh Hospital CenterStart: 07-27-2023 End: 51-59-7366Lurafiaul beverage intakeCurrent drinker of alcohol (finding) [facility] SystemStart: 07-27-2023 End: 06-67-3552Wbvdpxtqz beverage intakeProSheltering Arms Hospital SystemStart: 1950 Sex assigned at birthNot on fileProMedica Health SystemHistory of tobacco use Passive smokerProNorth [facility] Humedics SystemStart: 01-12-2018 End: 98-37-3868Zapgnij use and exposureSmokeless tobacco non-userSelect [facility]ty [facility] Humedics SystemStart: 42-45-5109Ify [facility] at [facility] Start: 40-15-9449Ahltpn identityIdentifies as female gender (finding)[facility] Sanaexperttart: *TobaccoUV Flu Technologieshorton medical centerAbsolute Commerce Start: 12-27-8851GvktoveOltoyybhtJoules Clothing Clinical Notes 08-05-2022 to 10-19-2024 Note Date & AzlfAigwTkivudfa21-04-6872 NoteNurse Consultation Note Assessment/Plan UTI symptoms (R39.9: [...] Protein Urine Dipstick: Trace (10/19/24 10:07:00) Specific Hollister Urine Dipstick: 1.020 (10/19/24 10:07:00) Urine Appearance Urine Dipstick: Slightly cloudy (10/19/24 10:07:00) Urine Color Urine Dipstick: Light yellow (10/19/24 10:07:00) Urobilinogen Urine Dipstick: Normal 0.2-1 EU/dl (10/19/24 10:07:00) pH Urine Dipstick: 7 (10/19/24 10:07:00)[facility]01-07-2025 History of Present illness Narrative* Maryanne [...] Daily aspirin 81 mg, Every other day Eudwklf-Xfvfxyycrv-Aindabt D (VITAMIN D3/CALCIUM/PHOSPHORUS PO) 1 each, Daily Denosumab (PROLIA SC) 1 Units, Every 6 months Durysta 10 mcg, As needed losartan (COZAAR) 100 mg, Daily Eureka-3 500 mg rosuvastatin (CRESTOR) 20 mg ALLERGIES Allergies Allergen Reactions Hydromorphone Unknown PROBLEMS Active Ambulatory Problems Diagnosis Date Noted Age-related osteoporosis without current pathological fracture ([facility]) 01/31/2023 Arthritis 12/27/2016 Hypercholesterolemia ([facility]) 12/27/2016 Hypertension ([facility]) 01/31/2023 Iron deficiency anemia 12/27/2016 TIA (transient ischemic attack) 01/31/2023 History of colon polyps 02/01/2023 Hyperlipidemia ([facility]) 02/23/2023 Resolved Ambulatory Problems Diagnosis Date Noted No Resolved Ambulatory Problems Past Medical History: Diagnosis Date Bronchitis Capillary angioma Cataracts, bilateral Chicken pox Family history of cancer Gallstone pancreatitis 2016 Glaucoma ([facility]) Hemorrhoids 2013 High blood pressure ([facility]) High cholesterol ([facility]) Measles Mumps Osteoporosis ([facility]) Pneumonia Stress fracture Tonsillitis Tubular adenoma 2013 HISTORY PAST MEDICAL HISTORY SOCIAL HISTORY Past Medical History: Diagnosis Date Arthritis Bronchitis Capillary angioma Cataracts, bilateral Chicken pox Family history of cancer Gallstone pancreatitis 2017 Glaucoma ([facility]) Hemorrhoids 2013 High blood pressure ([facility]) High cholesterol ([facility]) Measles Mumps Osteoporosis ([facility]) Pneumonia Stress fracture Tonsillitis Tubular adenoma [...] nursing note reviewed. Exam conducted with a assistant in nursing present. Vitals: Estimated body mass index is [...] of: Bentley Das DO documented in this encounterBarnes-Jewish HospitalPxrcfqcrau78-48-6112 NoteNurse Consultation Note Reason for Visit Here [...] Recorded pneumococcal 23-valent vaccine 06/25/2008 RecordedMer[facility] Health [facility] 07-30-2024 NotePatient Education Cardiovascular Hypertension, Adult [...] Keep all follow-up visits. Medicines ??? Take yymc-tuf-nzzcpzj and prescription medicines only as told by [...] is a (more content not included)...[facility] 07-13-2024 NotePatient Education Infectious Disease Pharyngitis [...] these instructions at home: Medicines ??? Take vosp-qwx-bonehcx and prescription medicines only as told by [...] and water are not available, use hand inspector fibrous wallboard. ??? Do not touch your eyes, nose, [...] away. Call your local emergency services (911 [facility] [place] ??? Do not wait to [...] provider. Document Revised: 11/04/2021 Document Reviewed: 11/04/2021 [employer] Patient Education ? 2023 S[employer].[facility] 12-27-2023 History of Present illness Narrative* JASON Zaragoza - 12/27/2023 11:00 AM EDT Subjective: sIaura Hayden female who is 73 y.o. female [...] 01/12/2018 Performed by Nitesh Littlejohn MD at [facility] DAVINC ROBOTIC ASSISTED HYSTERECTOMY, BILATERAL SALPINGO OOPHORECTOMY, PELVIC WASHINGS Bilateral 11/14/2023 Performed by Nabil Lord MD at [facility] SURGERY HEMORROIDECTOMY 1999's SKIN BIOPSY Right [...] Never True Received from [facility] Safety & Environment Review of [...] *This note was completed using a voice straightening press operator system. Every effort was made to ensure accuracy. However, inadvertent computerized straightening press operator errors may be present. .Total time spent was 20 minutes: Preparing to see the patient (e.g., review of tests) Performing a medically appropriate examination and/or evaluation Counseling and educating the patient/family/caregiver Documenting clinical information in the electronic or other health record Care coordination (not separately reported) Mary Pennington PA-C, RD, IF JASON Zaragoza 12/27/23 1109 documented in this encounterCleveland Clinic Fairview Hospital04-09-2024 History of Present illness Narrative* JASON [...] 01/12/2018 Performed by Nitesh Littlejohn MD at [facility] DAVINCI ROBOTIC ASSISTED HYSTERECTOMY, BILATERAL SALPINGO OOPHORECTOMY, PELVIC WASHINGS Bilateral 11/14/2023 Performed by Nabil Lord MD at [facility] SURGERY HEMORROIDECTOMY SKIN BIOPSY Right 2017 [...] *This note was completed using a voice straightening press operator system. Every effort was made to ensure accuracy. However, inadvertent computerized straightening press operator errors may be present. .Total time spent was 20 minutes: Preparing to see the patient (e.g., review of tests) Performing a medically appropriate examination and/or evaluation Counseling and educating the patient/family/caregiver Documenting clinical information in the electronic or other health record Care coordination (not separately reported) Mary Pennington PA-C, RD, IF JASON Zaragoza 11/29/23 1101 documented in this encounterMayo Memorial HospitalQR Wild03-18-2024 Instructions* Pre- Procedure Instructions - Angelia Kramer RN - 11/07/2023 10:30 AM EDT Your surgery/procedure is scheduled at [facility] on 11/14/2023 at 11 am Arrival Time 9 am [facility] Address: [address] [place] [address], [address] [place] [address] in the Emergency Center Parking lot. Report to the assistant front end manager in the Emergency/Surgery Registration lobby of the hospital. Please call Pre-Admission Clinic at [phone] if you have any questions prior to surgery. For questions the morning of surgery, please call the Pre-op Department at [phone]. Notify your SURGEON if you develop any [...] would like to schedule therapy at a [facility] Rehab facility, please call [phone] ([phone]). Do not use lotions, creams, powders, perfume, make up, cologne or after-shaves day of surgery. Remove ALL jewelry including wedding rings, body piercings, hair extensions that contain metal, nail kyrgyz, make-up, and contact lens. You may brush your teeth the morning of surgery, but do not swallow the water. Wear your dentures and partial plates to the hospital (no adhesive). Shower the night the before. If applicable, use the CHG (chlorhexidine gluconate) soap or wipes. Please be advised, [facility] has transitioned to a cashless payment [...] patient at [facility], you have the right to: Receive medical care and be informed of who is taking care of you Be treated with dignity and respect Have a family member/security systems sales representative of choice and your physician [...] of hospital charges and payment methods Patient/patient security systems sales representative responsibilities are to: Provide information about health status to facilitate care, treatment and services Follow the treatment, plan, keep appointments and speak up when you do not understand the plan Respect the rights of other patients and healthcare personnel Follow organizational rules and regulations that support quality care and a safe environment Fulfill financial obligations as promptly as possible [facility]03-18-2024 Miscellaneous Notes* Perioperative Nursing Note - Angelia Kramer RN - 11/07/2023 10:30 AM EDT Pt is going to [facility] on 11/09/2023 to havre EKG, CXR and labs. * Pre-Procedure Instructions - Angelia Kramer RN - 11/07/2023 10:30 AM EDT Your surgery/procedure is scheduled at [facility] on 11/14/2023 at 11 am Arrival Time 9 am [facility] Address: [address] [place] [address], [address] [place] [address] in the Emergency Center Parking lot. Report to the assistant front end manager in the Emergency/Surgery Registration lobby of the hospital. Please call Pre-Admission Clinic at [phone] if you have any questions prior to surgery. For questions the morning of surgery, please call the Pre-op Department at [phone]. Notify your SURGEON if you develop any [...] would like to schedule therapy at a [facility] facility, please call [phone] ([phone]). Do not use lotions, creams, powders, perfume, make up, cologne or after-shaves day of surgery. Remove ALL jewelry including wedding rings, body piercings, hair extensions that contain metal, nail kyrgyz, make-up, and contact lens. You may brush your teeth the morning of surgery, but do not swallow the water. Wear your dentures and partial plates to the hospital (no adhesive). Shower the night the before. If applicable, use the CHG (chlorhexidine gluconate) soap or wipes. Please be advised, [facility] has transitioned to a cashless payment [...] patient at [facility], you have the right to: Receive medical care and be informed of who is taking care of you Be treated with dignity and respect Have a family member/security systems sales representative of choice and your physician [...] of hospital charges and payment methods Patient/patient security systems sales representative responsibilities are to: Provide information [...] as possible documented [facility] Nurse Note* Perioperative Nursing Note - Angelia Kramer RN - 11/07/2023 10:30 AM EDT Pt is going to [facility] on 11/09/2023 to havre EKG, CXR and labs. [facility]03-08-[facility] Miscellaneous Notes* Telephone Encounter - Raj Nuñezsteven - 10/28/2023 11:19 AM EST Spoke with Mee 3 and 10/27 to confirm surgery plan. Patient is scheduled at [facility] with Dr Lord on 11/14/23. She knows to arrive at 9:00a for 11:00a surgery. Patient knows to call [phone] to locate closest [facility] facility in order to complete PAT testing. She has phone call PAT scheduled for 11/07/23. She will follow up with Mary in [place] on 11/29/23 at 10:30a. documented in this encounterC[facility]24 Telephone encounter Note* Telephone Encounter - Raj Nuñezsteven - 10/28/2023 11:19 AM EST Spoke with Mee 10/26 and 10/27 to confirm surgery plan. Patient is scheduled at [facility] with Dr Lord on 11/14/23. She knows to arrive at 9:00a for 11:00a surgery. Patient knows to call [phone] to locate closest [facility] facility in order to complete PAT testing. She has phone call PAT scheduled for 11/07/23. She will follow up with Mary in [place] on 11/29/23 at 10:30a. [facility] History of Present illness Narrative* Nabil [...] personal or family history of GI or i o psychologist malignancies. Oncology History No overview note Isaura [...] 01/12/2018 Performed by Nitesh Littlejohn MD at [facility] HEMORROIDECTOMY TONSILLECTOMY Past Medical History: Diagnosis [...] procedures Referring and communicating with other health point of care specialist (not separately reported) Documenting clinical information in the electronic or other health record Independently interpreting results (not separately reported) and communicating results to the patient/family/caregiver Nabil Lord MD documented in this encounterC[facility]-28-[facility]24 Miscellaneous Notes* Telephone Encounter - Linette Ga RN - 10/19/2023 10:05 AM EST Left VM to schedule ASSOCIATE PROFESSOR OF COUNSELING appt with i o psychologist onc, call back # provided. Requested images from pelvic US be pushed via PACS from [employer]. documented in this encounterC[facility]02-28-2024 Telephone encounter Note* Telephone Encounter - Linette Ga RN - 10/19/2023 10:05 AM EST Left VM to schedule ASSOCIATE PROFESSOR OF COUNSELING appt with i o psychologist onc, call back # provided. Requested images from pelvic US be pushed via PACS from [employer]. [facility]23 NoteProcedures Choosing a Surgeon When you need [...] a surgeon: ? Is certified by the [place] [employer]. To be board certified, a surgeon must go through an approved residency training program and pass a comprehensive exam. You can check your surgeon's board certification at www.abms.org/verify-certification/ ? Has had any problems with state licensing authorities. You can check whether a surgeon has had malpractice claims or other professional problems by going to your state medical board at www.fsmb.org/rbyxtqp-c-agalo-medical-board/ ? Has good ratings from other patients [...] the Joint Commission or the AccreditationAssociation for [facility]. Step 4: Meet with [...] you are considering is certified by the [place] [employer]. ? Meet with [...] provider. Document Revised: 10/19/2021 Document Reviewed: 10/19/2021 [employer] Patient Education ? 2022 [employer] 08-05-2022 NotePROCEDURE: XR FOOT LT MIN [...] pain in this area. Electronically authenticated by: AALN CÁRDENAS Date: 2022-08-04 22:03[facility] Future Appointments Appointment Date:05/30/2023 02:00:00 PM Scheduled Provider: Location:[facility] Appointment Type: Medicare Wellness Subsequent Appointment Date:05/30/2023 02:40:00 PM Scheduled Provider:Anamaria Chinchilla MD Location:[facility] Appointment Type: Open Diagnostic Tests Pending * Urine [facility] Future Appointments Appointment Date:07/30/2024 10:30:00 AM Scheduled Provider:Anamaria Chinchilla MD Location:[facility] Appointment Type:FM Open Appointment Date:07/30/2024 11:00:00 AM Scheduled Provider: Location:[facility] Appointment Type:FM Medicare Wellness Subsequent Diagnostic Tests Pending * Urine Culture 05/07/24 [facility] evaluation + Plan note Future Appointments Appointment Date:01/28/2025 08:45:00 AM Scheduled Provider:Anamaria Chinchilla MD Location:[facility] Appointment Type:FM Open Appointment Date:08/01/2025 11:00:00 AM Scheduled Provider: Location:[facility] Appointment Type:FM Medicare Wellness Subsequent [facility] evaluation + Plan note Future Appointments Appointment Date:01/28/2025 08:45:00 AM Scheduled Provider:Anamaria Chinchilla MD Location:[facility] Appointment Type:FM Open Appointment Date:08/01/2025 11:00:00 AM Scheduled Provider: Location:[facility] Appointment Type: Medicare Wellness Subsequent Diagnostic Tests Pending * Urine Culture 10/19/24 [facility] evaluation note* Diagnosis Well woman exam with routine gynecological exam Routine gynecological examination Breast cancer screening by mammogram Postmenopausal state Asymptomatic postmenopausal status (age-related) (natural) documented in this encounter [facility]* Diagnosis Encounter for postoperative care- Primary [facility] in this [facility] Diagnosis Endometrial thickening on ultrasound- Primary Postmenopausal bleeding documented in this [facility]* Diagnosis Preop testing- Primary Unspecified pre-operative examination [facility] Diagnosis Encounter for postoperative care- Primary [facility] N[facility]ative No data available for this section [facility] Dis[facility] instructions No data available for this section [facility] HospitalInstructionsNot on filedocumented in this encounter [facility] filedocumented in this encounter [facility]Not on filedocumented in this encounter [facility] System[facility]ructionsNot on filedocumented in this encounter [facility] System[facility]ructionsNot on filedocumented in this encounter [facility] System[facility]ructionsNot on filedocumented in this encounter [facility] No data available for this section [facility] Summary Purpose Family History No Family [...] ECG 12 lead Nabil Lord MD [address] [place] [address], [place] [address] Referral IDStatusReasonStart DateExpiration DateVisits RequestedVisits [id number] Review Additional Source Comments INFORMATION SOURCE (unrecogn ized section and content) DATE CREATED AUTHOR 02/13/2018 [facility] DATE CREATED AUTHOR AUTHOR'S ORGANIZ ATION 08/12/2022 [facility] DATE CREATED AUTHOR AUTHOR'S ORGANIZ ATION 10/27/2023 [facility] DATE CREATED AUTHOR AUTHOR'S ORGANIZ ATION 10/28/2023 [facility] DATE CREATED AUTHOR AUTHOR'S ORGANIZ ATION 11/18/2023 [facility] DATE CREATED AUTHOR AUTHOR'S ORGANIZ ATION 12/28/2023 [place] DATE CREATED AUTHOR AUTHOR'S ORGANIZ ATION 05/15/2024 [facility] DATE CREATED AUTHOR AUTHOR'S ORGANIZ ATION 08/10/2024 [facility] DATE CREATED AUTHOR AUTHOR'S ORGANIZ ATION 08/13/2024 [facility] DATE CREATED AUTHOR AUTHOR'S ORGANIZ ATION 09/03/2024 [facility] DATE CREATED AUTHOR AUTHOR'S ORGANIZ ATION 09/13/2024 [facility] DATE CREATED AUTHOR AUTHOR'S ORGANIZ ATION 10/21/2024 [facility] DATE CREATED AUTHOR AUTHOR'S ORGANIZ ATION 10/22/2024 [facility] DATE CREATED AUTHOR AUTHOR'S ORGANIZ ATION 05/30/2025 [facility] DATE CREATED AUTHOR AUTHOR'S ORGANIZ ATION 07/03/2025 [facility] DATE CREATED AUTHOR AUTHOR'S ORGANIZ ATION 07/04/2025 [facility] Patient Care team informatio n (unrecognized section and content) Team MemberRelationshipSpecialtyStart DateEnd Date Anjelica Gambino MD [address] [place] [address] PCP - GeneralFamily Medicine01/27/23Team MemberRelationshipSpecialtyStart DateEnd Date Anjelica Gambino MD [address] [facility] [place] [address] PCP - GeneralFamily Medicine01/27/23Team MemberRelationshipSpecialtyStart DateEnd Date Anamaria Chinchilla MD [address] [facility] [place], [place] [id number] PCP - GeneralFamily Medicine3/18/24Team MemberRelationshipSpecialtyStart DateEnd Date Anjelica Gambino MD [address] [place] [address] PCP - GeneralFamily Medicine12/24/16Team MemberRelationshipSpecialtyStart DateEnd Date Anjelica Gambino MD [address] [place] [address] PCP - GeneralFamily Medicine12/24/16Team MemberRelationshipSpecialtyStart DateEnd Date Anjelica Gambino MD [address] [place] [address] PCP - GeneralFamily Medicine12/24/16Team MemberRelationshipSpecialtyStart DateEnd Date Anamaria Chinchilla MD [address] [place] [address] PCP - GeneralFamily Medicine11/07/23Team MemberRelationshipSpecialtyStart DateEnd Date Anjelica Gambino MD [address] [place] [address] PCP - GeneralFamily Medicine01/27/23Team MemberRelationshipSpecialtyStart DateEnd Date Anjelica Gambino MD [address] [place] [address] PCP - GeneralFamily Medicine01/27/23Team MemberRelationshipSpecialtyStart DateEnd Date Anjelica Gambino MD [address] [place] [address] PCP - GeneralFamily Medicine01/27/23 Reason for Visit [...] BE BASED ON THE PRIMARY CLINICAL RECORDS. [facility] [employer] [facility]. provides no warranty or guarantee of the accuracy or completeness of information in this document.
--- NOTE | 2025-07-24 08:35 | MR_ITS ---
The [address] [address] Patient Name: PAPITO HAYDEN MRN: [id number] date: 1950 Sex: F Assigned Patient Location: MRI Current Patient Location: CT Accession/Order Number: [id number] Exam Date: 07/24/2025 08:55 Report Date: 07/24/2025 14:11 At the request of: CHRIS BARNETT DO MS Procedure: MR head/brain wo/w con MR head/brain wo/w con 07/24/2025 10:15 AM SIGN AND SYMPTOMS: Anesthesia Skin PROTOCOL: Multiplanar multisequence MR images of the brain CONTRAST: 15 ml of intravenous Dotarem COMPARISON: 07/22/2025. FINDINGS: Extra axial spaces: Age appropriate. Hemorrhage: Multiple foci of susceptibility are noted in the supratentorial brain predominately in the galvan white junction suggesting amyloid angiopathy. Ventricular system: Within normal limits. Basal cisterns: Within normal limits and not effaced. Cerebral parenchyma: T2 and T2 FLAIR hyperintense signal is noted in the periventricular white matter and subcortical white matter. Remote lacunar infarcts are noted in the left frontal periventricular white matter. Midline shift: None.. Cerebellum: Within normal limits. Brainstem: Within normal limits. OTHER: Calvarium: Normal marrow signal. Vascular system: Satisfactory flow voids within the anterior and posterior circulation. Visualized Paranasal sinuses: Within normal limits. Visualized Orbits: Within normal limits. Visualized upper cervical spine: Within normal limits. Sella and skull base: Within normal limits. MR/MR head/brain wo/w con IMPRESSION: Multiple foci of susceptibility are noted in the supratentorial brain predominately in the galvan white junction suggesting amyloid angiopathy. No acute intracranial pathology. 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 Impression dictated by: Bogdan Roman M.D. 07/24/2025 2:11 PM Dictation Location: [place] [address] Electronically authenticated by: [id number] Y Date: 07/24/2025 14:11
== END 2025-07-24 08:25 | disposition home or self-care (01) ==
LOC: MRI 08:24
PROVIDERS: PCP Nurse Practitioner; Visit Provider Student in an Organized Health Care Education/Training Program
DX: R20.0 Anesthesia of skin (principal)
CPT/HCPCS: 70553; A9575